=== PATIENT | female | born 1990 | race Caucasian/White ===

== ENCOUNTER 2022-01-31 07:12 | Outpatient (CLI) | payer OTHER, SELFPAY ==
--- NOTE | 2022-01-31 07:15 | CRLHL7_ITS ---
For Patients: As a result of the Century Cures Act, medical imaging exams and procedure reports are released immediately into your electronic medical record. You may view this report before your referring provider. If you have questions, please contact your health care provider. OB ULTRASOUND, 01/31/2022 JOMAR by IVF: 04/18/2022. GA: 29 w, 0 d. Single. INDICATION: Growth check ??? IVF. CERVIX: Not visualized. POSITIONING: Deacon breech. AMNIOTIC FLUID: 4.7 cm. PLACENTA: Technique: Transabdominal. PLACENTA POSITION: Fundal. DOPPLER: heart rate: 142 bpm. BIOMETRY: BPD: 6.7 cm. 27 w, 0 d, <3%. HC: 27.0 cm. 29 w, 3 d, 28%. AC: 25.6 cm. 29 w, 5 d, 68%. FL: 5.3 cm. 28 w, 0 d, 13%. FL/AC ratio: 21%. HC/AC ratio: 1.1. EFW: 1315 g. Weight: 2 lbs, 14 oz. age by this US: 28 w, 4 d. JOMAR by this US: 04/21/2022. Percentile by JOMAR: 36%. IMPRESSION: Single live intrauterine gestation with a composite gestational age of 28 weeks 4 days and JOMAR of 04/21/2022. Estimated weight 1315 grams, which lies at the 36th percentile. Xiomara Lewis M.D. Diagnostic/Breast Radiologist [email or web address] KANCHAN/melo alejo/Dictated by: Xiomara Lewis MD @ 01/31/2022 9:25:00 AM (Electronically Signed)
--- OUTSIDE RECORDS SUMMARY | 2022-01-31 07:16 | XMS_ITS | Encounter Summary ---
:1990 Author Organization [facility] Address [address] [place] [address] Care Team Providers Name Role Phone Found, No Pcp Primary Care Provider Unavailable Reason for Visit Reason Comments Forms outside records-[place], [place] Encounter Details Date Type Department Care Team Description 03/19/2019 [facility], [facility] (ou ide Documentation Services-GEOGRAPHIC INFORMATION SYSTEMS ANALYST Josephine Bingham MD records-[address], [address]) [place] [address] [phone] Social History Tobacco Use Types Packs/Day Years Used Date Smoking Tobacco: Never Smokeless Tobacco: Never Alcohol Use Standard Drinks/Week Comments Yes 2.8 (1 standard drink = 0.6 oz pure alco hol) Sex Assigned at Date Recorded Not on file documented as of this encounter Progress Notes Jessica Cano MA - 03/19/2019 9:29 AM CST Outside records requested by MD KATIE rc'd via fax, placed on provider desk for review. DING MAINTENANCE CUSTODIAN documented in this encounter Plan of Treatment Not on filedocumented as of this encounter Visit Diagnoses Not on filedocumented in this encounter Care Teams Key Worker Relationship Specialty Start Date End Date Found, No Pcp, PCP - General 05/02/15 [address] [place] [address] documented as of this encounter
--- OUTSIDE RECORDS SUMMARY | 2022-01-31 07:16 | XMS_ITS ---
:1990 Author Care Team Providers Name Role Phone Antonia Herbert Primary Care Provider Unavailable Allergies Code Code System Name Reaction Severity Status Onset Penicillins ? ? Active ? Sulfa (Sulfonamide Antibiotics) ? ? Active ? Medications Name Status Start Date Stop Date ? ? chlorhexidine gluconate 0.12 % mouthwash Completed ? 03/29/2021 chorionic gonadotropin, human 10,000 unit intramuscular solution Active ? Not available Inject 44157 units as needed by intramuscular route. clomiphene citrate 50 mg tablet Completed ? 03/29/2021 TAKE 2 TABLETS BY MOUTH EVERY DAY FOR 5 DAYS DIRECTED doxycycline hyclate 100 mg capsule Completed ? 03/29/2021 TAKE 1 CAPSULE BY MOUTH TWICE DAILY UNTIL ALL TAKEN. doxycycline hyclate 100 mg tablet Completed ? 03/29/2021 TAKE 1 TABLET BY MOUTH TWICE DAILY estradiol 2 mg tablet Completed ? 11/01/2020 etodolac 300 mg capsule Completed ? 03/29/20 21 methylprednisolone 4 mg tablets in a dose pack Completed ? 03/29/2021 ofloxacin 0.3 % eye drops Completed ? 2020 INT 1 GTT IN OD QID FOR 7 DAYS Ovidrel 250 mcg/0.5 mL subcutaneous syringe Completed ? 11/01/2020 Inject 0.5 mL every day by subcutaneous route for 1 day. Vitamin Active ? Not available progesterone micronized 200 mg capsule Active ? Not available Problems None recorded. Procedures Date Name Performed by ? 07/10/2020 Hysterosalpingography Information not av ailable Notes: Normal 04/28/2011 Extraction of [place] Tooth Information n ot available 04/28/1998 Tonsilectomy/adenoids Information not av ailable 08/01/2020 US, Transvaginal [id number] a [address] [place] [address] (Work [address]) 08/10/2020 US, Ovary, for Follicular Monitoring [facility]0 [facility] [address] [place] [address] (Work Place) 08/29/2020 US, Ovary, for Follicular Monitoring Cc0 [facility] [address] [place] [address] (Work Place) 09/07/2020 US, Ovary, for Follicular Monitoring Cc0 [facility] [address] [place] [address] (Work Place) 09/27/2020 US, Ovary, for Follicular Monitoring C[facility]0 [facility] [address] [place] [address] (Work Place) 10/04/2020 US, Ovary, for Follicular Monitoring [facility]0 [facility] [address] [place] [address] (Work Place) 10/11/2020 US, Ovary, for Follicular Monitoring [facility] [address] [place] [address] (Work Place) 11/01/2020 US, Ovary, for Follicular Monitoring [facility]0 [facility] [address] [place] [address] (Work Place) 12/29/2020 US, Ovary, for Follicular Monitoring [facility]0 [facility] [address] [place] [address] (Work Place) 01/08/2021 US, Ovary, for Follicular Monitoring [facility]0 [facility] [address] [place] [address] (Work Place) Results Lab Results Date Name Specimen Result Interpretation Description Value Range Status Address ? 03/29/2021 Cytology ? Interpretation nilm ? Fi nal [facility]: Report, [address] , Smear or [place] Scraping, Cervical or Vaginal ? ? ? Category: nil ? Final [facility]: [address] [facility] ? ? ? Adequacy: secni ? Final [facility]: [address] [facility] ? ? ? Clinician comment ? Final [facility]: Provided ICD10: 3 [address] [facility] ? ? ? Performed by: comment ? Final L [facility]: [address] [facility] ? ? ? Note: comment ? Final [facility]: [address] [facility] ? ? ? Test comment ? Final [facility]: Methodology: [address] [place] [address] ? ? ? HPV Aptima negative negative Final L [facility]: [address] [facility] 09/15/2020 Progesteron ? Progesterone, 10.6 ? Complete John e, Serum Serum NG/mL [facility] - Lab: [address], [place] 07/04/2020 Extra Tube ? Note ? ? Complete John [facility] (Lab [facility]) Health - Lab: [address], [place] 07/04/2020 Estradiol, ? Estradiol, 44.7 ? Comp lete [place] Serum Serum pg/mL [facility] - Lab: [address], [place] 07/04/2020 Prolactin, ? Prolactin, 8.7 NG/mL ? C omplete [place] Serum Serum [facility] - Lab: [address], [place] 07/04/2020 FSH ? FSH, Serum 6.9 ? Complete John (Follicle-s mIU/mL [facility] - Hormone), Lab: [address], [place] 07/04/2020 Lh ? Lutenizing 3.0 ? Complete John (Luteinizin Hormone (LH) mIU/mL [facility] Hormone), [facility] - Serum Lab: [address], [place] 07/04/2020 Thyroid ? Tsh 0.887 0.358-3.7 Complete John Elizabeth, uIU/mL 40 uIU/mL [facility] Health - Lab: [address], [place] 07/04/2020 Rubella ? Rubella Immune immune immune Com plete [place] Virus IgG Status Reported [facility] Ab, QL, Health - Serum Lab: [address], [place] 07/04/2020 Anti-cervantes ? Antimullerian 3.9 NG/mL 0.58 -8.1 Complete [facility] Hormone Hormone (Amh), S NG/mL [facility] (Amh), [facility] - Serum Lab: [address], [place] ? ? Result UPT negative ? ? [id number] Test, Urine ale_b urnsvil le: [address] [facility] [address] [facility] ? ? Result UPT negative ? ? [id number]_wcvqgi Test, Urine ale_b urnsvil le: [address] [facility] [address] [facility] ? ? Result UPT negative ? ? [id number]_fbjkzg Test, Urine ale_e maria alejandra: [address] , [place] Past Encounters 03/29/2021 Gynecologic Examination EZEKIEL Conner: [address] [facility] Ze al, [address] [address], Ph. 01/10/2021 Female Infertility; Artificial Inseminat joshua García MD: [address] [facility] You, [address] [address], Ph. 01/09/2021 Laura Sky MD: [address], [address] [address], Ph. 01/08/2021 Female Infertility Laura Sky MD: [address], [address] [address], Ph. 01/08/2021 Fertility Problem Laura Sky MD: [address], [address] [address], Ph. 12/29/2020 Primary Infertility Laura Sky MD: [address], [address], [place] [address], Ph. 12/29/2020 Female Infertility Laura Sky MD: [address], [address], [place] [address], Ph. 11/01/2020 Fertility Problem EZEKIEL Conner: [address] [place] [address], [facility], [place] [address], Ph. 11/01/2020 Fertility Problem Yamilex Juarez MD: [address] [place] [address] , [place] [address], [place] [address], Ph. 10/12/2020 Artificial Insemination Kirti Lang DANIEL: [address], [address], [place] [address], Ph. 10/11/2020 Female Infertility Kirti Lang DANIEL: [address], [address], [place] [address], Ph. 10/11/2020 Fertility Problem Yamliex Juarez MD: [address], [address], [place] [address], Ph. 10/04/2020 Female Infertility Kirti Lang DANIEL: [address], [address], [place] [address], Ph. 10/04/2020 Fertility Problem Yamilex Juarez MD: [address], [address] [place] [address], Ph. 09/27/2020 Female Infertility Kirti Lang DANIEL: [address], [address], [place] [address], Ph. 09/27/2020 Fertility Problem Azul Holt MD: [address], [address], [place] [address], Ph. 09/08/2020 Female Infertility Breanne Gutierrez [facility]: [address], [address], [place] [address], Ph. 09/07/2020 [facility]: [address], [address], [place] [address], Ph. 09/07/2020 Fertility Problem Yamilex Juarez MD: [address], [address], [place] [address], Ph. 08/29/2020 Female Infertility Breanne Matt [facility]: [address], [address], [place] [address], Ph. 08/29/2020 Fertility Problem Yamilex Juarez MD: [address], [address], [place] [address], Ph. 08/10/2020 [facility]: [address], [address], [place] [address], Ph. 08/10/2020 Fertility Problem Azul Holt MD: [address], [address], [place] [address], Ph. 08/01/2020 Unexplained Infertility Breanne Matt [facility]: [address], [address], [place] [address], Ph. 08/01/2020 Fertility Problem Azul Holt MD: [address], [address], [place] [address], Ph. Social History Tobacco Smoking Status Never Smoker Vaccine List None recorded. Plan of Care Patient Instructions - estradiol dosing x3 more doses - start prometrium 200mg tomorrow evenin g - Instructed to take UPT in 2 weeks, if positive continue progesterone and call clinic, if negative stop progesterone and call clinic with first day of menses - Trigger shot today - IUI scheduled for tomorrow - 2mg BID estradiol supplement per vagin a x3 days - 200mg once daily progesterone starting 24 hours after IUI - negative UPT today - Clomid restart discussed, take 50mg cl matt for next 5 days - repeat u/s in 1 week, depending on res ults, plan for trigger shot and IUI to follow - call back with pharmacy information f or trigger shot - call to schedule follow up u/s on CD 1 2 or CD 13 - Ovidrel in clinic today, IUI as sched uled tomorrow - start vaginal estrogen 2mg BID - plan mid-luteal progesterone a week fr om tomorrow Reminders Provider Appointments None recorded. ? ? Lab None recorded. ? ? Referral None recorded. ? ? Procedures None recorded. ? ? Surgeries None recorded. ? ? Imaging None recorded. ? ? Vitals 03/29/2021 08:00AM G_ANNUAL EXAM Height Weight BMI Blood Pressure 5 ft 8 in 168 lbs 25.5 kg/m2 118/70 mm[Hg] 11/01/2020 01:45PM G_FOLLICLE STUDY Height Weight BMI Blood Pressure 5 ft 8 in 164.2 lbs 25 kg/m2 112/64 mm[Hg] 09/08/2020 10:45AM G_ARTIFICIAL INSEMINATION Height Weight BMI Blood Pressure 5 ft 8 in 161.8 lbs 24.6 kg/m2 112/68 mm[Hg] 08/29/2020 08:00AM G_FOLLICLE STUDY Height Weight BMI Blood Pressure 5 ft 8 in 159.8 lbs 24.3 kg/m2 110/76 mm[Hg] 07/04/2020 01:00PM G_NEW PT INFERTILITY CONSULT Height Weight BMI Blood Pressure 5 ft 8 in 159 lbs 24.2 kg/m2 112/80 mm[Hg]
--- OUTSIDE RECORDS SUMMARY | 2022-01-31 07:16 | XMS_ITS | Encounter Summary ---
:1990 Author Organization [facility] Address [address] [place] [address] Care Team Providers Name Role Phone Found, No Pcp MD Primary Care Provider Unavailable Reason for Visit Reason Comments IUD Removal Encounter Details Date Type Department Care Team Description 05/20/2019 Office Visit [facility], Encounter for removal Services-FISH PEDDLER Josephine Bingham MD of intrauterine [address] [place] [address] [address] (Primary Dx) [place] [address] [phone] Social History Tobacco Use Types Packs/Day Years Used Date Smoking Tobacco: Never Smokeless Tobacco: Never Alcohol Use Standard Drinks/Week Comments Yes 2.8 (1 standard drink = 0.6 oz pure alco hol) Sex Assigned at Date Recorded Not on file documented as of this encounter Last Filed Vital Signs Vital Sign Reading Time Taken Comments Blood Pressure 126/63 05/20/2019 4:12 PM CARDIAC NURSE Pulse 62 05/20/2019 4:12 PM CARDIAC NURSE Temperature - - Respiratory Rate - - Oxygen Saturation - - Inhaled Oxygen Concentration - - Weight 72.1 kg (159 lb) 05/20/2019 4:12 PM CARDIAC NURSE Height - - Body Mass Index 24.18 03/18/2019 3:47 PM CARDIAC NURSE documented in this encounter Progress Notes Josephine Prtaer MD - 05/20/2019 4:00 PM CST Subjective: Hellen Sigala 28 y.o. is here for removal of existing IUD. Her plan for contraception is nothing - attempting . Procedure: BP 126/63 (BP Location: Right Arm, BP Cuff Size: Regular) Pulse 62 Wt 159 lb (72.1 kg) LMP 04/28/2019 BMI 24.18 kg/m?? A speculum was placed in the vagina. The IUD strings were visible at the external os. The IUD was removed without difficulty. The patient tolerated the procedure well. Assessment: Encounter Diagnosis Name Primary? Encounter for removal of intrauterine contraceptive device Yes Plan: Hellen was given post-removal instructions and pre-conceptual counseling . Patient aware can occur right away after removal. Patient is taking a vitamin. Patient will notify clinic with positive UPT. Josephine Prater MD IAC NURSE documented in this encounter Plan of Treatment Not on filedocumented as of this encounter Visit Diagnoses Diagnosis Encounter for removal of intrauterine co ntraceptive device - Primary documented in this encounter Care Teams Personal Property Assessor Relationship Specialty Start Date End Date Found, No PcpMD PCP - General 05/02/15 [address] [place] [address] documented as of this encounter
--- OUTSIDE RECORDS SUMMARY | 2022-01-31 07:16 | XMS_ITS | Encounter Summary ---
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 Josephine Bingham MD Screening for cervical cancer; [address] [place] [address] for influenza vaccination; [address] Vaginal itching; [facility] [place] Encounter for preconception consultation [id number] [phone] Social History Tobacco Use Types Packs/Day Years Used Date Smoking Tobacco: Never Smokeless Tobacco: Never Alcohol Use Standard Drinks/Week Comments Yes 2.8 (1 standard drink = 0.6 oz pure alco hol) Sex Assigned at Date Recorded Not on file documented as of this encounter Last Filed Vital Signs Vital Sign Reading Time Taken Comments Blood Pressure 117/62 03/18/2019 3:47 PM OFFICE ASSISTANT Pulse 74 03/18/2019 3:47 PM OFFICE ASSISTANT Temperature - - Respiratory Rate - - Oxygen Saturation - - Inhaled Oxygen Concentration - - Weight 71.5 kg (157 lb 9.6 oz) 03/18/2019 3:47 PM OFFICE ASSISTANT Height 172.7 cm (5' 8) 03/18/2019 3:47 PM OFFICE ASSISTANT Body Mass Index 23.96 03/18/2019 3:47 PM OFFICE ASSISTANT documented in this encounter Patient Instructions Patient InstructionsJosephine Prater MD - 03/18/2019 4:00 PM CST Ethnicity-Based Genetic Screening: Care Instructions Overview All of our genes come in pairs. We get a copy from each parent. Genes help control everything from our eye color to whether we get certain conditions. Genes that don't work right or that are missing can cause genetic conditions. These include cystic fibrosis, sickle cell anemia, and Alexey-Sachs disease. Some genetic conditions are more common in certain ethnic groups. A screening blood test can find out if you are a carrier of one of these conditions. You can be a carrier and not have symptoms. Instead, you carry one copy of a gene that is not working well. If someone in your family has one of these conditions, you may be a carrier. But many people who are carriers have no family history. If both members of a couple are carriers, they have a 1-in-4 chance of having a child born with the condition. So that means that there is a 3-in-4 chance that their child won't have the condition. To have certain genetic conditions, a baby must get a copy of the changed gene from each parent. Theresults of genetic screening can help you make choices about having children. If you test positive, your partner should be tested too. Follow-up care is a palomares part of your treatment and safety. Be sure to make and go to all appointments, and call your doctor if you are having problems. It's also a good idea to know your test results and keep a list of the medicines you take. Which conditions can this test find? You can be tested to see if you or your partner might pass down gene changes to your child. You may be tested for: ?? Inherited anemias. This group of conditions affects red blood cells. It includes sickle cell anemia and thalassemia. They can lead to lifelong medical problems, such as infections. In some cases, they can cause in childhood or the early adult years. Sickle cell disease occurs most often in people of background. Thalassemia occurs most often in those of , , or Mediterranean background. ?? Cystic fibrosis. This causes the lungs and digestion to not work right. Problems caused by this disease can be treated. But there is no known cure. On average, people who have it live into their mid-to-late 30s. The disease is much more common in non- white people than in people of other races and ethnic backgrounds. ?? Alexey-Sachs disease. Babies with this disease have problems such as losing their sight or not beingable to eat or crawl. Children who have it do not live very long. It is more common in people of Ashkenazi Muslim, [place], or Cajun backgrounds. ?? Diseases that occur more often in people of Ashkenazi Muslim background. These include: ? Alexey-Sachs disease. ? Manpreet disease. ? Familial dysautonomia. ? Cystic fibrosis. ? Fanconi anemia group C. ? Geoffrey-Pick disease type A. ? Mucolipidosis IV. ? Deutsch syndrome. ? Gaucher's disease. Should you be tested? Certain genetic conditions are more common in certain ethnic groups. People who are or of , Ashkenazi Muslim, Southeast , [place], or Mediterranean background may want to think about genetic testing to find out if they have or are a carrier of a genetic condition that they could pass on to their child. Certain genetic conditions are more common in these ethnic groups. Some close-knit hindu communities also have higher rates of certain genetic conditions. This includes the Arturo and the Mennonites. People with a family history of one of these conditions also may want to think about testing. What should you think about when deciding about this test? ?? Your doctor may advise you to talk to a genetic counselor. He or she can help you understand the test and what the results could mean. ?? Testing is not 100% accurate. But if you are in one of the higher-risk ethnic groups, testing is more accurate for certain diseases. ?? You may choose to have testing if you are and the test results will affect whether you continue your or will help you make choices about the care of your child. ?? You may choose not to have testing if you are and the test results will not affect whether you will continue your . Where can you learn more? 1. Go to https://Stellarray.Patreon/Medaforrary or [employer]/Norwood SystemsraAppLearn. 2. Enter Q084 in the search box. Current as of: July 27, 2018 Content Version: 12.2 ?? 2722-1703 [employer]. Care instructions adapted under license by your healthcare professional. If you have questions about a medical condition or this instruction, always ask your healthcare professional. [employer] disclaims any warranty or liability for your use of this information. Learning About Planning for Future How can you plan for ? Even before you get , you can help make your as healthy as possible. Take these steps: ?? See a doctor or certified nurse-clinic cma for an exam. Talk about the medicines, vitamins, and herbs you take. Discuss any health problems or concerns you have. ?? Don't take nonsteroidal anti-inflammatory drugs (NSAIDs). Examples of these are ibuprofen and aspirin. They can raise your risk of miscarriage. This risk is higher around the time you conceive or ifyou use them for more than a week. ?? Take a daily multivitamin or vitamin. Make sure it has folic acid. This will lower the chance of having a baby with a defect. ?? Keep track of your menstrual cycle. This is a good idea for a few reasons. It helps you know the best time to try to get . And it can help your doctor or clinic cma figure out when your baby isdue and how it is growing. ?? Make healthy choices. Eat well. Avoid caffeine. Or cut back and only have 1 cup of coffee or tea a day. Avoid alcohol, cigarettes, and illegal drugs. Take only the medicines your doctor or clinic cma says are okay. ?? Get plenty of exercise. A strong body will make and easier. It will also help yourecover after the . And exercise can help improve your mood. What other exams or tests should you have? Before trying to get , take care of any other health concerns you might have. ?? If you have diabetes or high blood pressure or you are obese, talk to your doctor before you get . Together, you can make a plan about how to control these health problems. ?? Talk with your doctor about any medicines you take. Find out if it is safe to keep taking them while you are . ?? Get any vaccines you might need. They can help prevent defects, miscarriage, or stillbirth that can be caused by infections such as rubella or measles. Ask your doctor how long you should waitafter you get a vaccine before you try to get . ?? Talk with your doctor about whether to have screening tests for diseases that are passed down through families (genetic conditions). These diseases include: ? Cystic fibrosis. ? Sickle cell disease. ? Alexey-Sachs disease. If you think you might be ?? You can use a home test as soon as the first day of your first missed menstrual period. ?? As soon as you know you're , make an appointment with your doctor or certified nurse-clinic cma. Your first visit will provide information that can be used to check for any problems asyour progresses. Where can you learn more? 1. Go to https://[employer] (now [employer])/Medaforrary or [employer] SystemsraAppLearn. 2. Enter R938 in the search box. Current as of: September 23, 2018 Content Version: 12.2 ?? 0038-1179 [employer]. Care instructions adapted under license by your healthcare professional. If you have questions about a medical condition or this instruction, always ask your healthcare professional. [employer] disclaims any warranty or liability for your use of this information. CE ASSISTANT documented in this encounter Progress Notes Josephine Prater MD - 03/18/2019 4:00 PM CST Annual Exam Note S: Hellen Sigala is a 28 y.o. P0 female who presents for an annual exam. The patient does not have any concerns but does want to discuss removal of her IUD in the next few months as her and her husbandare planning to start trying to conceive. She reports that they are planning a trip to [place] in May and would like to potentially conceive during the trip. She is wondering about the timing of when she should take it out given this. 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 Prior to IUD they were heavy. Contraception: Mirena IUD Pap: Last Pap NIL in 08/2017 in [place]. Records not available Sexual activity: Active with one male partner, no concerns OBHx: Nulliparous Preventative Care: Diet/Exercise: No dietary concerns, exercise regularly Vitamin D/Calcium: No supplements Lipids: Uncertain if screened before Glucose: Uncertain if screened before Safety: No concerns Patient's medications, allergies, past medical, surgical, social and family histories were reviewed and updated as appropriate. ROS: Pertinent items are noted in HPI. O: BP 117/62 (BP Location: Right Arm, BP Cuff Size: Regular) Pulse 74 Ht 5' 8 (1.727 m) Wt 157 lb 9.6 oz (71.5 kg) LMP 02/28/2019 BMI 23.96 kg/m?? General appearance: alert, cooperative, no distress, appears stated age Neck: supple, symmetrical, trachea midline, no adenopathy, thyroid: not enlarged, symmetric, no tenderness/mass/nodules and no JVD Back: symmetric, no curvature. ROM normal. No CVA tenderness. Breasts: normal appearance, no masses or tenderness Abdomen: soft, non-tender; bowel sounds normal; no masses, no organomegaly Pelvic: cervix normal in appearance, external genitalia normal, no adnexal masses or tenderness, no cervical motion tenderness, uterus normal size, shape, and consistency, vagina normal without discharge Extremities: extremities normal, atraumatic, no cyanosis or edema Skin: Skin color, texture, turgor normal. No rashes or lesions. A: 28 y.o. P0 here for annual exam. Patient also has questions of removal of IUD in the near future with the intent to attempt conception. P: Preventative Care: -Breast/pelvic completed -Pap is not due at this time -Patient is accepting of flu shot today -Due for Tdap but patient declines as she dislikes needles and already agreed to flu shot. Reviewed that the Tdap is recommended in every and she may chose to defer this until then since she is planning in the near future -Healthy lifestyle reviewed Pre-conception counseling -Reviewed that is possible immediately after removal of Mirena IUD so would not remove until she is certain she would be ok with -Reviewed plans for travel to [place] and discuss this in the context of the Zika virus. Patient reports having been aware of this. Discussed that I would advise reviewing the CDC travel advisories prior to the trip as they often change. Current advisory is to avoid for two months following travel in women and for three months prior to attempting conception for men. Patient will consider. -Recommend starting a vitamin 1-2 months prior to starting attempts at conception -Reviewed options for carrier screening should patient be interested in this. Discussed these are optional tests. Information given for patient to review. She will let me know if she is interested in this testing. Josephine Prater MD 2:29 PM 03/19/2019 10 minutes of this 25 minute physical were spent in discussion of preconception counseling CE ASSISTANT documented in this encounter Plan of Treatment Not on filedocumented as of this encounter Procedures Procedure Name Priority Date/Time Associated Diagnosis Comme nts VAGINITIS PANEL Routine 03/18/2019 4:45 PM Vaginal itching Res ults for this OFFICE ASSISTANT procedure are i n the results section. documented in this encounter Results Vaginitis Panel, DNA Probe (03/18/2019 4:45 PM OFFICE ASSISTANT) [facility] gist Method Time Signature Gardnerella Negative Negative 03/19/2019 [facility] vaginalis 4:43 PM OFFICE ASSISTANT LABORATORY [place] species Negative Negative 03/19/2019 [facility] 4:43 PM OFFICE ASSISTANT [facility]ATORY Trichomonas Negative Negative 03/19/2019 [facility] vaginalis 4:43 PM OFFICE ASSISTANT LABORATORY Specimen Anatomical Collection Method Collection Time Receive d Time (Source) Location / / Volume Laterality Swab (Source SPECIMEN FROM Non-blood 03/18/2019 4:45 PM 03/18/20 19 4:46 Required) VAGINA / Unknown Collection / OFFICE ASSISTANT PM OFFICE ASSISTANT Unknown Josephine Prater MD LAB_1 Performing Organization Address City/State/ZIP Code Phon e Number [facility] [address] [place] [id number] documented in this encounter Visit Diagnoses Diagnosis Preventative health care - Primary Routine general medical examination at a health care facility Screening for cervical cancer Screening for malignant neoplasm of the cervix Need for influenza vaccination Need for prophylactic vaccination and in oculation against influenza Vaginal itching Pruritus of genital organs Encounter for preconception consultation documented in this encounter Care Teams Seed Cone Picker Relationship Specialty Start Date End Date Found, No PcpMD PCP - General 05/02/15 [address] [place] [address] documented as of this encounter
--- OUTSIDE RECORDS SUMMARY | 2022-01-31 07:16 | XMS_ITS | Encounter Summary ---
:1990 Author Organization [facility] Address [address] [place] [address] Care Team Providers Name Role Phone Found, No Pcp MD Primary Care Provider Unavailable Reason for Visit Reason Comments FOREIGN BODY, EYE Encounter Details Date Type Department Care Team Description 01/20/2020 Hospital Encounter [facility] Esquivel Abrasi on of right [facility] cornea, initial Care [address] [address] [place] [id number] Social History Tobacco Use Types Packs/Day Years Used Date Smoking Tobacco: Never Smokeless Tobacco: Never Alcohol Use Standard Drinks/Week Comments Yes 2.8 (1 standard drink = 0.6 oz pure alco hol) Sex Assigned at Date Recorded Not on file documented as of this encounter Last Filed Vital Signs Vital Sign Reading Time Taken Comments Blood Pressure 119/74 01/20/2020 12:48 PM CDT Pulse 74 01/20/2020 12:48 PM CDT Temperature 36.6 ??C (97.8 ??F) 01/20/2020 12:48 PM CDT Respiratory Rate 14 01/20/2020 12:48 PM CDT Oxygen Saturation 100% 01/20/2020 12:48 PM CDT Inhaled Oxygen Concentration - - Weight - - Height - - Body Mass Index - - documented in this encounter Discharge Instructions Discharge InstructionsSully Machado PA-C - 01/20/2020 1:10 PM CDT Images from the original note were not included. Corneal Scratches: Care Instructions Your Care Instructions The cornea is the clear surface that covers the front of the eye. When a speck of dirt, a wood chip,an insect, or another object flies into your eye, it can cause a painful scratch on the cornea. Wearing contact lenses too long or rubbing your eyes can also scratch the cornea. Small scratches usuallyheal in a day or two. Deeper scratches may take longer. If you have had a foreign object removed from your eye or you have a corneal scratch, you will need to watch for infection and vision problems while your eye heals. Follow-up care is a palomares part of your treatment and safety. Be sure to make and go to all appointments, and call your doctor if you are having problems. It's also a good idea to know your test results and keep a list of the medicines you take. How can you care for yourself at home? ?? The doctor probably used a medicine during your exam to numb your eye. When it wears off in 30 to60 minutes, your eye pain may come back. Take pain medicines exactly as directed. ? If the doctor gave you a prescription medicine for pain, take it as prescribed. ? If you are not taking a prescription pain medicine, ask your doctor if you can take an efjv-cny-cotwekg medicine. ? Do not take two or more pain medicines at the same time unless the doctor told you to. Many pain medicines have acetaminophen, which is Tylenol. Too much acetaminophen (Tylenol) can be harmful. ?? Do not rub your injured eye. Rubbing can make it worse. ?? Use the prescribed eyedrops or ointment as directed. Be sure the dropper or bottle tip is clean. To put in eyedrops or ointment: ? Tilt your head back, and pull your lower eyelid down with one finger. ? Drop or squirt the medicine inside the lower lid. ? Close your eye for 30 to 60 seconds to let the drops or ointment move around. ? Do not touch the ointment or dropper tip to your eyelashes or any other surface. ?? Do not use your contact lens in your hurt eye until your doctor says you can. Also, do not wear eye makeup until your eye has healed. ?? Do not drive if you have blurred vision. ?? Bright light may hurt. Sunglasses can help. ?? To prevent eye injuries in the future, wear safety glasses or goggles when you work with machinesor tools, mow the lawn, or ride a bike or motorcycle. When should you call for help? Call your doctor now or seek immediate medical care if: ? You have signs of an eye infection, such as: ? Pus or thick discharge coming from the eye. ? Redness or swelling around the eye. ? A fever. ? You have new or worse eye pain. ? You have vision changes. ? It feels like there is something in your eye. ? Light hurts your eye. ??Watch closely for changes in your health, and be sure to contact your doctor if: ? You do not get better as expected. Where can you learn more? 1. Go to https://PxRadia/[employer] or YouFastUnlock/[employer]. 2. Enter G403 in the search box. Current as of: April 13, 2019?Content Version: 12.4 ?? [employer]. Care instructions adapted under license by your healthcare professional. If you have questions abouta medical condition or this instruction, always ask your healthcare professional. [employer] disclaims any warranty or liability for your use of this information. documented in this encounter Medications at Time of Discharge Medication Sig Dispensed Refills Start Date End Date ofloxacin (OCUFLOX) 0.3 % Place 1 Drop into 10 mL 0 01/27/2020 eye drop solution right eye 4 times a day for 7 days. documented as of this encounter ED Notes Sully Machado PA-C - 01/20/2020 12:52 PM CDT Nurse Triage Note e Was standing outside while at work and felt something blow into right eye about 1-1.5 hours ago, waswearing glasses when incident occurred, flushed right eye Provider Note SUBJECTIVE: Hellen Sigala is a 29 y.o.female who comes in with foreign body sensation. She was standing outside at work and felt something low and her right eye. She was wearing her glasses. She does not wear contacts. She copiously irrigated her right eye with eye wash at work. She still is experiencing right eye pain. No vision changes. Past Medical history: Patient Active Problem List Diagnosis ??? Excessive or frequent menstruation ??? Viral infection ??? Dyspepsia and disorder of function of stomach ??? Pap smear abnormality of cervix Social History: Social History Socioeconomic History ??? Marital status: Spouse name: Not on file ??? Number of children: 0 ??? Years of education: Not on file ??? Highest education level: Not on file Occupational History ??? 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 Financial resource strain: Not on file ??? Food insecurity Worry: Not on file Inability: Not on file ??? Transportation needs Medical: Not on file Non-medical: Not on file Tobacco Use ??? Smoking status: Never Smoker ??? Smokeless tobacco: Never Used Substance and Sexual Activity ??? Alcohol use: Yes Alcohol/week: 2.8 standard drinks Types: 2 Cans of beer, 1 Standard drinks or equivalent per week ??? Drug use: No ??? Sexual activity: Yes Partners: Male control/protection: I.U.D. Comment: Seasonale, generic Lifestyle ??? Physical activity Days per week: Not on file Minutes per session: Not on file ??? Stress: Not on file Relationships ??? Social connections Talks on phone: Not on file Gets together: Not on file Attends yarsani service: Not on file Active member of club or organization: Not on file Attends meetings of clubs or organizations: Not on file Relationship status: Not on file ??? Intimate partner violence Fear of current or ex partner: Not on file Emotionally abused: Not on file Physically abused: Not on file Forced sexual activity: Not on file Other Topics Concern ??? Bike Helmet No ??? City Water Yes ??? Exercise Yes ??? Guns in home No ??? Seat Belt Yes ??? Special Diet No ??? Weight Concern No Social History Narrative Recently graduated from [employer] in civil engineering. 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 She is currently dating. Adverse Drug Reactions: Clindamycin; Penicillins; and Sulfa antibiotics Medications: ofloxacin OBJECTIVE: Vital Signs: BP 119/74 (BP Location: Left Arm, BP Cuff Size: Regular) Pulse 74 Temp 36.6 ??C (97.8 ??F) (Oral) Resp 14 LMP 12/28/2019 SpO2 100% General: Well-appearing. Eyes: Right eye is slightly injected. Fluorescein stain reveals small amount of uptake in inferior portion of cornea. Eyelid flipped with no evidence of foreign body. PERRLA EOMI bilaterally red reflexpresent bilaterally. Neck: Supple, without masses, lymphadenopathy or tenderness. Respiratory: Normal respiratory effort. Lungs are clear with good breath sounds. CV: Regular rate and rhythm, no clicks rubs gallops or murmurs ASSESSMENT: 1. Abrasion of right cornea, initial encounter . PLAN: Corneal abrasion. No evidence of foreign bodies in eye. No metal/rust ring. Ocuflox prescribed to prevent infection. Discussed signs/symptoms that would warrant emergent follow-up with the eye doctor. Patient understands and agrees the plan. Patient discharged in stable condition. Patient may return to work without restrictions. Medications - No data to display Medications Prescribed this Visit Disp Refills Start End ofloxacin (OCUFLOX) 0.3 % eye drop solution 10 mL 0 01/20/2020 01/27/2020 Place 1 Drop into right eye 4 times a day for 7 days. Right Eye Discharge Instructions Corneal Scratches: Care Instructions Your Care Instructions The cornea is the clear surface that covers the front of the eye. When a speck of dirt, a wood chip, an insect, or another object flies into your eye, it can cause a painful scratch on the cornea. Wearing contact lenses too long or rubbing your eyes can also scratch the cornea. Small scratches usually heal in a day or two. Deeper scratches may take longer. If you have had a foreign object removed from your eye or you have a corneal scratch, you will need to watch for infection and vision problems while your eye heals. Follow-up care is a palomares part of your treatment and safety. Be sure to make and go to all appointments, and call your doctor if you are having problems. It's also a good idea to know your test results and keep a list of the medicines you take. How can you care for yourself at home? ?? The doctor probably used a medicine during your exam to numb your eye. When it wears off in 30 to 60 minutes, your eye pain may come back. Take pain medicines exactly as directed. ? If the doctor gave you a prescription medicine for pain, take it as prescribed. ? If you are not taking a prescription pain medicine, ask your doctor if you can take an ekrj-tww-wyztgdl medicine. ? Do not take two or more pain medicines at the same time unless the doctor told you to. Many pain medicines have acetaminophen, which is Tylenol. Too much acetaminophen (Tylenol) can be harmful. ?? Do not rub your injured eye. Rubbing can make it worse. ?? Use the prescribed eyedrops or ointment as directed. Be sure the dropper or bottle tip is clean. To put in eyedrops or ointment: ? Tilt your head back, and pull your lower eyelid down with one finger. ? Drop or squirt the medicine inside the lower lid. ? Close your eye for 30 to 60 seconds to let the drops or ointment move around. ? Do not touch the ointment or dropper tip to your eyelashes or any other surface. ?? Do not use your contact lens in your hurt eye until your doctor says you can. Also, do not wear eye makeup until your eye has healed. ?? Do not drive if you have blurred vision. ?? Bright light may hurt. Sunglasses can help. ?? To prevent eye injuries in the future, wear safety glasses or goggles when you work with machines or tools, mow the lawn, or ride a bike or motorcycle. When should you call for help? Call your doctor now or seek immediate medical care if: ? You have signs of an eye infection, such as: ? Pus or thick discharge coming from the eye. ? Redness or swelling around the eye. ? A fever. ? You have new or worse eye pain. ? You have vision changes. ? It feels like there is something in your eye. ? Light hurts your eye. ??Watch closely for changes in your health, and be sure to contact your doctor if: ? You do not get better as expected. Where can you learn more? 1. Go to https://Pearl's Premium.Dipity/healthlibrary or YouFastUnlock/Vastarilibrary. 2. Enter G403 in the search box. Current as of: April 13, 2019?Content Version: 12.4 ?? [id number] [employer]. Care instructions adapted under license by your healthcare professional. If you have questions about a medical condition or this instruction, always ask your healthcare professional. [employer] disclaims any warranty or liability for your use of this information. documented in this encounter Plan of Treatment Not on filedocumented as of this encounter Visit Diagnoses Diagnosis Abrasion of right cornea, initial encoun ter Triage Assessment Note - Chanelle Sawyer, RN - 01/20/2020 12:45 PM CDT Was standing outside while at work and felt something blow into right eye about 1-1.5 hours ago, waswearing glasses when incident occurred, flushed right eye documented in this encounter Care Teams Paper Cutting Machine Operator Relationship Specialty Start Date End Date Found, No Pcp, PCP - General 05/02/15 [address] [place] [address] documented as of this encounter
--- OUTSIDE RECORDS SUMMARY | 2022-01-31 07:16 | XMS_ITS | Encounter Summary ---
:1990 Author Organization [email or web address] Address [address], [place] [address] Care Team Providers Name Role Phone Found, No Pcp MD Primary Care Provider Unavailable Reason for Visit Reason Comments Post Visit Follow Up Encounter Details Date Type Department Care Team Description 11/14/2018 Nurse Triage Lew Nurse E[place] Ortiz, [place] [address] [place] [address] [facility] [phone] [place] [address] (Wo rk) Social History Tobacco Use Types Packs/Day Years Used Date Smoking Tobacco: Never Alcohol Use Standard Drinks/Week Comments Yes 2.8 (1 standard drink = 0.6 oz pure alco hol) Sex Assigned at Date Recorded Not on file documented as of this encounter Nursing Notes Sheeba Hutton RN - 11/14/2018 6:24 PM CDT Reason for Disposition ??? [1] Recent medical visit within 24 hours AND [2] condition/symptoms SAME (unchanged) AND [3] caller has additional questions triager can answer Pt calling, states Percocet did not help dental pain sx. Pt was seen in 11/13/18, diagnosed with dental abscess, prescribed Clindamycin and Percocet. Pt is taking Ibuprofen for pain relief today, pain rated 6/10 when taking Ibuprofen and 8/10 when not taking Ibuprofen. Pt took 2 Percocet yesterday without relief of pain. Advised pt that pain medication will not completely resolve pain but will reduce pain. Pt was started on antibiotic yesterday and should see improvement in sx in 48-72 hours. Pt denies new sx. Protocols used: RECENT MEDICAL VISIT FOR ILLNESS FOLLOW-UP [id number] Problem list reviewed as related to this call. documented in this encounter Plan of Treatment Not on filedocumented as of this encounter Visit Diagnoses Not on filedocumented in this encounter Care Teams Smt Machine Operator Relationship Specialty Start Date End Date Found, No Pcp, PCP - General 05/02/15 [address] [place] [address] documented as of this encounter
--- OUTSIDE RECORDS SUMMARY | 2022-01-31 07:16 | XMS_ITS | Clinical Summary ---
:1990 Author Organization [facility] Address [address] [place] [address] Care Team Providers Name Role Phone Found, No Pcp MD Primary Care Provider Unavailable Source Comments You are receiving this document as you are listed as the primary care provider,follow-up provider, or the patient has been referred to you for consultation.This is in compliance with the Medicare and Medicaid EHR Incentive Program,which states Providers who transition their patient to another setting of careor provider of care or refers their patient to another provider of care shouldprovide summarycare record for each transition of care or referral. Tysdo Allergies Active Allergy Reactions Severity Noted Date Comments Clindamycin Gastrointestinal 11/16/2018 See ED note s Penicillins 06/30/2002 Rash, Generaliz ed Sulfa Antibiotics 06/30/2002 Rash, Gene ralized Medications No known medications Active Problems Problem Noted Date Pap smear abnormality of cervix 04/08/2019 Overview: 01/2017: ASCUS, Neg HPV (at outside hosp ital, records reviewed) 01/2018: NIL (at outside hospital, recor ds reviewed) Dyspepsia and disorder of function of stomach 11/03/19 09 Overview: Dyspepsia Viral infection 07/16/2006 Overview: Viral Syndrome Excessive or frequent menstruation 07/02/2005 Overview: LW Onset: 2004 ; Menorrhagia Resolved Problems Problem Noted Date Resolved Date Contraceptive management 09/08/2012 05/20/2019 Last Assessment & Plan: Formatting of th is note might be different from the original. Taking OCP for menorrhagia and recently for contraceptive management, she denies side effects, reports working well. Immunizations Name Administration Dates Next Due 4vHPV (Gardasil) 09/02/2011, 07/12/2008, 09/07/2007 HepA Adult (19+ yrs) 09/02/2011 HepA Ped/Adol (1-18 yrs) 09/07/2007 HepB Ped/Adol (0-18 yrs) 06/23/2002 HepB, Unspecified Formulation 11/23/2001, 10/15/2001 Influenza IIV4 (Quadrivalent) 0.5mL 03/18/2019 (72383) MCV4 (Menactra) 09/07/2007 MMR 11/23/2001 TDAP (ADACEL) 09/07/2007 Td 10/15/2001 Family History Medical History Relation Name Comments Adopted Father Depression Father Cancer Mother Depression Mother Depression Brother Heart Disease Maternal Grandfather High Cholesterol Maternal Grandfather Stroke Maternal Grandfather Alzheimer's Maternal Grandmother Stroke Maternal Grandmother Cancer Paternal Grandfather Alzheimer's Paternal Grandmother Relation Name Status Comments Father Alive Mother Alive Brother Alive Maternal Grandfather Maternal Grandmother Paternal Grandfather Paternal Grandmother Sister Alive Social History Tobacco Use Types Packs/Day Years Used Date Smoking Tobacco: Never Smokeless Tobacco: Never Alcohol Use Standard Drinks/Week Comments Yes 2.8 (1 standard drink = 0.6 oz pure alco hol) Sex Assigned at Date Recorded Not on file Last Filed Vital Signs Vital Sign Reading Time Taken Comments Blood Pressure 119/74 01/20/2020 12:48 PM CDT Pulse 74 01/20/2020 12:48 PM CDT Temperature 36.6 ??C (97.8 ??F) 01/20/2020 12:48 PM CDT Respiratory Rate 14 01/20/2020 12:48 PM CDT Oxygen Saturation 100% 01/20/2020 12:48 PM CDT Inhaled Oxygen Concentration - - Weight 72.1 kg (159 lb) 05/20/2019 4:12 PM DIGITAL SALES MANAGER Height 172.7 cm (5' 8) 03/18/2019 3:47 PM DIGITAL SALES MANAGER Body Mass Index 24.18 03/18/2019 3:47 PM DIGITAL SALES MANAGER Plan of Treatment Health Maintenance Due Date Last Done Comments Hep C Screening (Preventive 1990 Services) COVID-19 Vaccine (#1) 03/09/1990 HIV Screening (Preventive 2005 Services) DTaP/Tdap/Td (3 - Tdap) 2017 09/07/2007, 10/15/2001 Pap 01/29/2021 01/29/2018 (Completed), 09/08/2012, 09/02/2011, Additional history exists Adult Preventive Visit 03/18/2021 03/18/2019 Influenza (#1) 2021 03/18/2019 Zoster/Shingles (1 of 2) 09/07/2039 HepB Completed 06/23/2002, 11/23/2001, 10/15/2001 MCV4 Completed 09/07/2007, 09/07/2007 HPV Vaccine Completed 09/02/2011, 07/12/2008, 09/07/2007 HepA Completed 09/02/2011, 09/07/2007 Hib Aged Out No longer eligib le based on patient 's age to complete this topic IPV (Polio) Aged Out No longer eligib le based on patient 's age to complete this topic Pneumococcal Aged Out No longer eligib le based on patient 's age to complete this topic Insurance Payer Benefit Plan / Subscriber ID Effective Phone Address T e Group Dates [facility] [id number] 2020-Pr [phone] Comp INSURANCE WC INSURANCE WC esent [phone] [place] [address] MEDICA MEDICA CHOICE [id number] 2018-Pre Com mercial sent Hellen Sigala Personal/Family Self 1990 [id number] [phone] [employer] (Work) [phone] Hellen Sigala Workers Comp Self [phone] [phone] [employer] (Work) [id number] Care Teams Auto Clocks Repairer Relationship Specialty Start Date End Date Found, No Pcp, PCP - General 05/02/15 [address] [place] [address]
--- OUTSIDE RECORDS SUMMARY | 2022-01-31 07:17 | XMS_ITS | Encounter Summary ---
:1990 [facility] Address [address] [place] [address] Care Team Providers Name Role Phone Brisa Smith PA-C Primary Care Provider Encounter Details Date Type Department Care Team Description 07/11/2007 Office Visit [facility] [place] [address] [place] [address] Social History Tobacco Use Types Packs/Day Years Used Date Smoking Tobacco: Never Assessed Sex Assigned at Date Recorded Not on file documented as of this encounter Last Filed Vital Signs Vital Sign Reading Time Taken Comments Blood Pressure 107/62 07/11/2007 1:15 PM CDT Pulse 79 07/11/2007 1:15 PM CDT Temperature 36.5 ??C (97.7 ??F) 07/11/2007 1:15 PM ORAL C: 3 6.5 C CDT Respiratory Rate 14 07/11/2007 1:15 PM CDT Oxygen Saturation - - Inhaled Oxygen Concentration - - Weight - - Height - - Body Mass Index - - documented in this encounter Progress Notes Roxanne Flores MD - 07/11/2007 12:01 AM CDT Progress Notes signed by Roxanne Flores MD at 08/11/07 1055 Author: Roxanne Flores MD Service: (none) Author Type: Physician Filed: 08/18/10 0320 Note Time: 07/11/07 0001 Status: Signed Jig And Fixture Maker: Roxanne Flores MD (Physician) NAME: MINO POSADAS MR#: [id number] ACCT: [id number] VISIT: [id number] DICTATING CLINICIAN: ROXANNE FLORES MD JOB: [id number] LOC: 520 CLINIC PROGRESS NOTE DATE OF VISIT: 07/11/2007 SUBJECTIVE: This 16-year-old female comes in today with concerns for having a sore throat for the past 2 days. Also, has had some right ear pain along with it. Pretty mild and some runny nose also noted. Has felt some low-grade fever also. PAST MEDICAL HISTORY: Healthy. MEDICATIONS: None. ADR/ALLERGIES: PENICILLIN AND SULFA. OBJECTIVE: VS: BP: 107/62. T: Afebrile. P: 79. R: 14. Exam shows the patient looking great. Oral mucosa is moist and throat shows minimal erythema. Ears: Look normal. NECK: Supple. No lymph nodes palpable. LUNGS: Clear. CARDIOVASCULAR: Regular rate and rhythm. Normal S1, S2. Rapid strep is negative. ASSESSMENT: 1. Viral pharyngitis. 2. Otalgia. PLAN: Would recommend symptomatic treatment, and recheck as needed. [id number] C: 07/13/07 12:26 DOCUMENT: [id number] documented in this encounter Plan of Treatment Not on filedocumented as of this encounter Visit Diagnoses Not on filedocumented in this encounter Care Teams Housing Court Judge Relationship Specialty Start Date End Date Brisa Smith PA-C PCP - General 07/30/10 04/18/15 [address] [place] [address] documented as of this encounter
--- OUTSIDE RECORDS SUMMARY | 2022-01-31 07:17 | XMS_ITS | Encounter Summary ---
:1990 Author Organization [facility] Address [address], [place] [address] Care Team Providers Name Role Phone Brisa Smith PA-C Primary Care Provider Reason for Visit Reason Comments Other Encounter Details Date Type Department Care Team Description 11/02/2008 Telephone [facility], Message Other [address] [place] [address] Social History Tobacco Use Types Packs/Day Years Used Date Smoking Tobacco: Never Assessed Sex Assigned at Date Recorded Not on file documented as of this encounter [facility], Message - 11/02/2008 10:32 AM CDT Phone Note filed by [facility] at 08/17/1051 Author: [facility] Service: (none) Author Type: (none) Filed: 08/17/10 0651 Note Time: 11/02/08 1032 Status: Signed Rn Clinical Documentation Specialist: [facility] (Resource) Front Line Sx Call Caller Name/Relationship:Hellen Primary Environmental Engineering Technician: Symptom or request? sores in mouth/under tongue since Friday, tongue feels swollen Is appointment scheduled & when? Revolving Inventory Clerk:Hellen Best call back number:[phone] Is it OK to leave a confidential message on this voicemail? h *ECODE~PNSX2 Created on 02Nov2008 10:32am by BHARATHI DESHPANDE K On [id number] 10:58am CAROLYN BROWN wrote: CLINICIAN FOLLOW-UP: FYI (note is complete). IMPRESSION: mouth sores/? Tjpi-Lfoy-ilk-Mouth Disease. SYMPTOMS: Pt is 18 yr old woman calling with sores in her mouth that started on Friday (3 days ago). She has sore under tongue, on gum, and on cheek. No sores on hands or feet. No present fever, does have sore throat. Had sore on lip on Friday. Denies emergent symptoms Problem List: reviewed in electronic medical record. CARE ADVICE: Care Advice REASSURANCE: Ilzs-mtrc-ryuzu disease is a harmless viral rash. LIQUID ANTACID FOR MOUTH PAIN: Use a liquid antacid 4 times per day. SOFT DIET: Encourage favorite fluids to prevent dehydration. Cold drinks, milkshakes, popsicles, slushes, and sherbet are good choices. Avoid citrus, salty, or spicy foods. For infants, give fluids by cup, spoon or syringe rather than a bottle. (Reason: The nipple can cause pain.) Solid food intake is not important. FEVER MEDICINE: Give acetaminophen (e.g., Tylenol) or ibuprofen for fever above 102F (39C) or severe mouth pain. CONTAGIOUSNESS: Quite contagious but a mild and harmless disease. Incubation period is 3-6 days. Can return to daycare or school after the fever is gone (usually 2 to 3 days). The rash is not contagious. EXPECTED COURSE: The fever lasts 2 or 3 days. The mouth ulcers resolve by 7 days. The rash on the hands and feet lasts 10 days. CALL BACK IF: Signs of dehydration develop. Fever present over 3 days. Advised to call back if any of the following occur: symptoms worsen or persist, any other questions or concerns. PLAN: appt made for this morning with Dr Humphreys in case pt needs anti-viral meds for cold sores Patient/Caller agrees with plan and denies additional questions. References Used: Pediatric Telephone Protocols--Pfsf-Jeym-rmk-Mouth Disease. Call Complete. *SH~BS~HANDFOOTMTH ~ STIGATIONS DIRECTOR documented in this encounter Plan of Treatment Not on filedocumented as of this encounter Visit Diagnoses Not on filedocumented in this encounter Care Teams Apron Cleaner Relationship Specialty Start Date End Date Brisa Smith PA-C PCP - General 07/30/10 04/18/15 [address] [place] [address] documented as of this encounter
--- OUTSIDE RECORDS SUMMARY | 2022-01-31 07:17 | XMS_ITS | Encounter Summary ---
:1990 Author [facility] Address [address] [address] Care Team Providers Name Role Phone Brisa Smith PA-C Primary Care Provider Encounter Details Date Type Department Care Team Description 11/02/2008 PN Conversion Only HELENA CONVERSION Brisa Smith, [address] [place] [address] [place], [place] [address] (Wo rk) Social History Tobacco Use Types Packs/Day Years Used Date Smoking Tobacco: Never Assessed Sex Assigned at Date Recorded Not on file documented as of this encounter Plan of Treatment Not on filedocumented as of this encounter Procedures Procedure Name Priority Date/Time Associated Comments Diagnosis HELICOBACTER PYLORI Routine 11/02/2008 11:48 Resu lts for this IGG AM CDT procedure are i n the results section. documented in this encounter Results Helicobacter Pylori IGG (11/02/2008 11:48 AM CDT) [facility] Method Time Signature Helicobacter Negative Negative HP CONVERSION pylori IgG Comment: No Helicobacter IgG antibody detected. This assay should be used only for patie nts with symptoms suggestive of gastrointest inal disease. Specimen (Source) Anatomical Collection Method Collection Time Re ceived Time Location / / Volume Laterality 11/02/2008 11:48 AM CDT Brisa Smith PA-C LAB_1 Performing Organization Address City/State/ZIP Code Phon e Number HP CONVERSION documented in this encounter Visit Diagnoses Not on filedocumented in this encounter Care Teams American History Teacher Relationship Specialty Start Date End Date Brisa Smith PA-C PCP - General 07/30/10 04/18/15 [address] [place] [address] documented as of this encounter
--- OUTSIDE RECORDS SUMMARY | 2022-01-31 07:17 | XMS_ITS | Encounter Summary ---
:1990 [facility] Address [address] [address] Care Team Providers Name Role Phone Brisa Smith PA-C Primary Care Provider Encounter Details Date Type Department Care Team Description 09/07/2007 PN Conversion Only HELENA CONVERSION [address] [place] [address] Social History Tobacco Use Types Packs/Day Years Used Date Smoking Tobacco: Never Assessed Sex Assigned at Date Recorded Not on file documented as of this encounter Plan of Treatment Not on filedocumented as of this encounter Visit Diagnoses Not on filedocumented in this encounter Care Teams Batch Unit Treater Relationship Specialty Start Date End Date Brisa Smith PA-C PCP - General 07/30/10 04/18/15 [address] [place], [place] [address] documented as of this encounter
--- OUTSIDE RECORDS SUMMARY | 2022-01-31 07:17 | XMS_ITS | Encounter Summary ---
:1990 Author Organization [facility] Address [address] [place] [address] Care Team Providers Name Role Phone Brisa Smith PA-C Primary Care Provider Reason for Visit Reason Comments Patient Calling Back Encounter Details Date Type Department Care Team Description 09/15/2012 Telephone [facility] Jasmin Whitmore Patient Calling Back [address] [place] [address] Social History Tobacco Use Types Packs/Day Years Used Date Smoking Tobacco: Never Assessed Sex Assigned at Date Recorded Not on file documented as of this encounter Nursing Notes Cary Ashton - 09/15/2012 12:41 PM CDT Received call back from pt. Instructed, per Jasmin Crystal PA-C, pap smear normal, STD screen for gonorrhea/chlamydia negative. Pt verbalized understanding. Denies any questions or concerns at this time. Sangita Harper - 09/15/2012 12:39 PM CDT Pt is calling back states returning call Torito Hearn - 09/15/2012 12:37 PM CDT Left message for patient to call [phone] and ask for nurse triage for lab results. Cary Ashton - 09/15/2012 10:56 AM CDT Message copied by CARY ASHTON on FriSeptember 15, 2012 10:56 AM ------ Message from: JASMIN CRYSTAL Created: FriSeptember 15, 2012 10:43 AM Please call patient pap smear normal, STD screen for gonorrhea/chlamydia negative ------ documented in this encounter Plan of Treatment Not on filedocumented as of this encounter Visit Diagnoses Not on filedocumented in this encounter Care Teams Wire Weaver Cloth Relationship Specialty Start Date End Date Brisa Smith PA-C PCP - General 07/30/10 04/18/15 [address] [place] [address] documented as of this encounter
--- OUTSIDE RECORDS SUMMARY | 2022-01-31 07:17 | XMS_ITS | Encounter Summary ---
:1990 Author Organization [facility] Address [address] [address] Care Team Providers Name Role Phone Brisa Smith PA-C Primary Care Provider Encounter Details Date Type Department Care Team Description 09/30/2007 PN Conversion Only HELENA CONVERSION Brisa Smith, [address] [place] [address] [place], [place] [address] (Wo rk) Social History Tobacco Use Types Packs/Day Years Used Date Smoking Tobacco: Never Assessed Sex Assigned at Date Recorded Not on file documented as of this encounter Plan of Treatment Not on filedocumented as of this encounter Procedures Procedure Name Priority Date/Time Associated Diagnosis Comme nts SICKLE CELL SCREEN Routine 09/30/2007 10:14 AM Re sults for this (> 6 MONTHS) CDT procedure are i n the results section. documented in this encounter Results Sickle Cell Screen (> 6 Months) (09/30/2007 10:14 AM CDT) Analysis Performed At Patho logist Time Signature Sickle Cell Negative Negative HP CONVERSION Screen Specimen (Source) Anatomical Collection Method Collection Time Re ceived Time Location / / Volume Laterality 09/30/2007 10:14 AM CDT Brisa Smith PA-C LAB_1 Performing Organization Address City/State/ZIP Code Phon e Number HP CONVERSION documented in this encounter Visit Diagnoses Not on filedocumented in this encounter Care Teams Fish Bailer Relationship Specialty Start Date End Date Brisa Smith PA-C PCP - General 07/30/10 04/18/15 [address] [place] [address] documented as of this encounter
--- OUTSIDE RECORDS SUMMARY | 2022-01-31 07:17 | XMS_ITS | Encounter Summary ---
:1990 Author Organization [facility] Address [address] [address] Care Team Providers Name Role Phone Lynette Smith PA-C Primary Care Provider Reason for Visit Reason Comments Other Encounter Details Date Type Department Care Team Description 11/15/[address] [facility], Message Other [address] [place] [address] Social History Tobacco Use Types Packs/Day Years Used Date Smoking Tobacco: Never Assessed Sex Assigned at Date Recorded Not on file documented as of this encounter [facility], Message - 11/15/2008 12:11 PM CDT Phone Note filed by [employer]ch[employer] at 08/17/10 3942 Author: [employer] Service: (none) Author Type: (none) Filed: 08/17/10 5950 Note Time: 11/15/08 1211 Status: Signed Evs Attendant: [employer] (Resource) Front Line Sx Call Caller Name/Relationship:ptHellen Primary Erosion Control Specialist:Luis Symptom or request?Pt was earlier in the month for stomach pain, pt was given rx that is not working. Pt is still having same sx. Is appointment scheduled & when?no Chocolate Finisher:pt Best call back number:[phone] c Is it OK to leave a confidential message on this voicemail?yes *ECODE~PNSX2 Created on [id number] 12:11pm by JESSICA KITCHEN On 15Nov2008 12:21pm JESSICA HERNÁNDEZ wrote: Left message to callback to [id number] and ask to speak with a nurse. On 15Nov2008 12:30pm BHARATHI DESHPANDE wrote: pt returning call On 15Nov2008 12:35pm JESSICA HERNÁNDEZ wrote: Seen 11/02/08 for dyspepsia, tx with Omeprazole 20mg/d. State she has not had any relief with her sx. Deny sx progressive or changed, just not better. Please advice. Pharmacy: [facility] # On 15Nov2008 4:24pm LYNETTE SMITH wrote: If she is not improving f/u appt. Acknowledged by LYNETTE SMITH on 4:24pm On 15Nov2008 4:30pm JANIA BAUTISTA wrote: Pt informed of the above information and agrees. Pt was transfered to scheduling. D ARTILLERY CANNONEER documented in this encounter Plan of Treatment Not on filedocumented as of this encounter Visit Diagnoses Not on filedocumented in this encounter Care Teams Medical Secretary Receptionist Relationship Specialty Start Date End Date Lynette Smith, LUIS PCP - General 07/30/10 04/18/15 [address] [place] [address] documented as of this encounter
--- OUTSIDE RECORDS SUMMARY | 2022-01-31 07:17 | XMS_ITS | Encounter Summary ---
:1990 Author Organization [facility] Address [address] [place] [address] Care Team Providers Name Role Phone Brisa Smith PA-C Primary Care Provider Encounter Details Date Type Department Care Team Description 11/02/2008 Office Visit [facility]os Brisa Smith PA-C [address] [place], [place] [address] [address] [place], [place] [address] (Wo rk) Social History Tobacco Use Types Packs/Day Years Used Date Smoking Tobacco: Never Assessed Sex Assigned at Date Recorded Not on file documented as of this encounter Last Filed Vital Signs Vital Sign Reading Time Taken Comments Blood Pressure 102/60 11/02/2008 11:31 AM CDT Pulse 68 11/02/2008 11:31 AM CDT Temperature - - Respiratory Rate - - Oxygen Saturation - - Inhaled Oxygen Concentration - - Weight 67.6 kg (148 lb 15.8 oz) 11/02/2008 11:31 AM C: 67.6kg CDT Height - - Body Mass Index 22.65 09/07/2007 1:11 PM CDT documented in this encounter Progress Notes Brisa Smith PA-C - 11/02/2008 12:01 AM CDT Progress Notes signed by Brisa Smith PA-C at 11/02/08 7174 Author: Brisa Smith PA-C Service: (none) Author Type: Physician Print Inspector Filed: 08/18/10 1626 Note Time: 11/02/08 0001 Status: Signed Mold Repair Technician: Brisa Smith PA-C (Resource) Subjective: This is a 18-year-old female who presents to the clinic she with two concerns. Concern number one. She had a cold sore on her upper lip on Friday which is now better. On Friday she developed a canker sores under her tongue. She is not run any fevers. She has a mild sore throat. He is avoiding acidic foods and spicy foods. She has been treating the canker sores with salt water gargles. Concern 2. She's been experiencing dyspepsia for approximately 2 months. She rarely takes anti-inflammatory medications. She is not tried any gltk-woc-bnukxuw products. Food aggravates her symptoms causing her to have some sharp discomfort in the midepigastric area. She denies heartburn, melena, or hematochezia. Past medical history: Reviewed in todays lastwork health profile Social history: Nonsmoker Review of Systems: Above Adverse drug reactions: See today's last word health profile Current medications: See today's last word health profile Vital signs: See today's last word health profile Objective: Patient is pleasant no acute distress oriented to person place and time. On her right upper lip she does have a cold sore that is currently healing. Under her tongue she has a small canker sore and currently noted. Does look like a benign aphthous ulcer. Lungs today are clear heart regular rate rhythm without murmurs gallops or rubs. Abdomen has positive bowel sounds all 4 quadrants mild midepigastric tenderness noted but no organ enlargement. Assessment: 1. Herpetic labialis improving 2. Aphthous ulcers 3. Dyspepsia Plan: Number one. For the herpetic ulcers just observe 2. Magic mouthwash was called in for the aphthous ulcers to use until symptoms improve 3. For the dyspepsia is to be started on omeprazole 20 mg daily H. pylori testing is currently pending. *SH~DNS~SOAP documented in this encounter Plan of Treatment Not on filedocumented as of this encounter Visit Diagnoses Not on filedocumented in this encounter Care Teams Parts Puller Relationship Specialty Start Date End Date Brisa Smith PA-C PCP - General 07/30/10 04/18/15 [address] [place] [address] documented as of this encounter
--- OUTSIDE RECORDS SUMMARY | 2022-01-31 07:17 | XMS_ITS | Encounter Summary ---
:1990 [facility] Address [address] [address] Care Team Providers Name Role Phone Brisa Smith PA-C Primary Care Provider Encounter Details Date Type Department Care Team Description 08/27/2010 PN Conversion Only CONVERSION CONVERSION Lena Chiu, TAILOR APPRENTICE, DISTRIBUTION DISPATCHER [address] [place], [place] [address] (Wo rk) Social History Tobacco Use Types Packs/Day Years Used Date Smoking Tobacco: Never Assessed Sex Assigned at Date Recorded Not on file documented as of this encounter Plan of Treatment Not on filedocumented as of this encounter Visit Diagnoses Not on filedocumented in this encounter Care Teams Hide And Skin Colerer Relationship Specialty Start Date End Date Brisa Smith PA-C PCP - General 07/30/10 04/18/15 [address] [place] [address] documented as of this encounter
--- OUTSIDE RECORDS SUMMARY | 2022-01-31 07:17 | XMS_ITS | Encounter Summary ---
:1990 Author Organization [facility] Address [address] [place] [address] Care Team Providers Name Role Phone Brisa Smith PA-C Primary Care Provider Encounter Details Date Type Department Care Team Description 07/12/2008 Office Visit Rocio Griffiths [facility] [address] [place] [address] [place] [address] [place] [address] [phone] (Wo rk) Social History Tobacco Use Types Packs/Day Years Used Date Smoking Tobacco: Never Assessed Sex Assigned at Date Recorded Not on file documented as of this encounter Last Filed Vital Signs Vital Sign Reading Time Taken Comments Blood Pressure 112/64 07/12/2008 8:18 AM CDT Pulse 64 07/12/2008 8:18 AM CDT Temperature - - Respiratory Rate - - Oxygen Saturation - - Inhaled Oxygen Concentration - - Weight 68.5 kg (150 lb 15.9 oz) 07/12/2008 8:18 AM CDT C: 68.5kg Height - - Body Mass Index 22.96 09/07/2007 1:11 PM CDT Body Mass Index Percentile 65.88 % 07/12/2008 8:18 AM CD T Growth Chart: CDC (Girls, 2-20 Years) documented in this encounter Progress Notes Rocio Bermudez MBBS - 07/12/2008 12:01 AM CDT Progress Notes signed by Rocio Bermudez MD at 08/14/08 7034 Author: ZAK Giles Service: (none) Author Type: Physician Filed: 08/18/10 1330 Note Time: 07/12/08 0001 Status: Signed Decision Support Analyst: ZAK Giles (Physician) NAME: MINO POSADAS MR#: [id number] ACCT: [id number] VISIT: [id number] DICTATING CLINICIAN: Rocio Bermudez MD CONFIRM #: [id number] LOC: 1702 CLINIC PROGRESS NOTE DATE OF VISIT: 07/12/2008 SUBJECTIVE: : 1990. 17-year-old with past medical history significant for chronic insomnia presented to the clinic today for concerns regarding the continuing symptoms. Patient has had these symptoms for over 2 years and was evaluated about a year ago when she was started on trazodone, which had helped her falling asleep. Patient explains her daytime routine as getting up around 8:00 to 9:00 every day and then has classes from 9:00 to 11:00. Does track practice from 2:00 to 6:00 p.m. and comes back to her room around 6:00 p.m. when she does home work and then after dinner, goes to be between 9:30 and 10:00 very regularly. Rarely takes coffee, occasionally a cup of tea which is around once a week and generally in the morning hours. Patient does have a TV in the bedroom and does have a roommate who shares the same bedroom, but they rarely watch TV, and her roommate is also pretty quiet. She does not feel that because of her roommate she is disturbed. Denies any problems with snoring. Patient describes her symptoms of insomnia as problems with falling asleep as well as staying asleep. Most of the nights, she has a problem falling asleep, but occasionally, she can fall asleep, but then gets up every 1 to 2 hours. She does not really know why. Does not specifically have to go to the bathroom or anything like that. Patient denies any significant concerns with leg pain or leg jerking, occasionally leg pain because of her regular track practice, but most of the night, that his not a concern. Patient does feel that she is under lots of stress given that she is very active in track as well as with her studies, and PHQ-9 was done today. Patient marked 3 each for problems sleeping as well as feeling tired due to lack of sleep and 1 for anhedonia, feeling depressed and guilty feeling, and patient feels that if she sleeps better, she generally has a more positive outlook towards her. The rest of the complete review of systems is negative. Patient also wants a refill of her control. Last Pap smear was done in 04/2006, which was negative. Patient will arrange for a repeat visit for Pap smear in the next 3 months. PAST MEDICAL HISTORY: Reviewed and updated in patient health profile in Last[facility] today. MEDICATION LIST: Reviewed with patient and updated in patient health profile in LastWord. ADR/ALLERGIES: REVIEWED WITH PATIENT AND UPDATED IN PATIENT HEALTH PROFILE IN [facility]. OBJECTIVE: VS: Reviewed. Within normal limits. BP: 112/62. P: 64. Wt: 151. MENTAL STATUS: Appropriately dressed and groomed. Normal speech in pace and fluency. Alert and oriented x3. Short and long-term memory intact in routine conversation. Mood and affect normal. Does not appear depressed or anxious. Patient denies any current suicidal ideation, intent or plan. Rest of the exam was deferred today. ASSESSMENT: 1. Insomnia, chronic. Patient was restarted on trazodone 50 mg. Advised to try 1/2 a pill. Also advised regarding conservative means including meditation, etc. And other relaxation exercises to help her sleep. Also discussed sleep hygiene in great detail. 2. Contraception counselling. Patient would like to continue with the control pills. Given 3-month supple. Patient will arrange for a pelvic exam appointment in the next 3 months. Patient was agreeable with plan. PLAN: See assessment. SR:[id number] C: 07/12/08 13:15 CONFIRM #: [id number] documented in this encounter Plan of Treatment Not on filedocumented as of this encounter Visit Diagnoses Not on filedocumented in this encounter Care Teams Bottom Brusher Relationship Specialty Start Date End Date Brisa Smith PA-C PCP - General 07/30/10 04/18/15 [address] [place] [address] documented as of this encounter
--- OUTSIDE RECORDS SUMMARY | 2022-01-31 07:17 | XMS_ITS | Encounter Summary ---
:1990 Author [facility] Address [address] [address] Care Team Providers Name Role Phone Brisa Smith PA-C Primary Care Provider Encounter Details Date Type Department Care Team Description 07/16/2006 PN Conversion Only HELENA CONVERSION [address] [place] [address] Social History Tobacco Use Types Packs/Day Years Used Date Smoking Tobacco: Never Assessed Sex Assigned at Date Recorded Not on file documented as of this encounter Plan of Treatment Not on filedocumented as of this encounter Visit Diagnoses Not on filedocumented in this encounter Care Teams Air Conditioning Mechanic Relationship Specialty Start Date End Date Brisa Smith PA-C PCP - General 07/30/10 04/18/15 [address] [place], [place] [address] documented as of this encounter
--- OUTSIDE RECORDS SUMMARY | 2022-01-31 07:17 | XMS_ITS | Encounter Summary ---
:1990 Author [facility] Address [address] [address] Care Team Providers Name Role Phone Brisa Smith PA-C Primary Care Provider Encounter Details Date Type Department Care Team Description 01/17/2007 Office Visit [facility] [place] [address] [address] [place] [address] [phone] Social History Tobacco Use Types Packs/Day Years Used Date Smoking Tobacco: Never Assessed Sex Assigned at Date Recorded Not on file documented as of this encounter Last Filed Vital Signs Vital Sign Reading Time Taken Comments Blood Pressure 100/62 01/17/2007 4:50 PM CDT Pulse 68 01/17/2007 4:50 PM CDT Temperature 36.8 ??C (98.2 ??F) 01/17/2007 4:50 PM ORAL C: 3 6.8 C CDT Respiratory Rate - - Oxygen Saturation - - Inhaled Oxygen Concentration - - Weight - - Height - - Body Mass Index - - documented in this encounter Progress Notes Jagdeep Kwok MD - 01/17/2007 12:01 AM CDT Progress Notes signed by Jagdeep Kwok MD at 02/05/072041 Author: Jagdeep Kwok MD Service: (none) Author Type: Physician Filed: 08/17/10 0367 Note Time: 01/17/07 0001 Status: Signed Transportation Superintendent: Jagdeep Kwok MD (Physician) NAME: MION POSADAS MR#: [id number] ACCT: [id number] VISIT: [id number] DICTATING CLINICIAN: Jagdeep Kwok MD JOB: [id number] LOC: 520 CLINIC PROGRESS NOTE DATE OF VISIT: 01/17/2007 SUBJECTIVE: A 16-year-old female is noting cold symptoms this past week. Increasing congestion, more on the right side. She notes drainage in her throat, has been coughing, but not bringing anything up. Denies any wheezing or shortness of breath. MEDICATIONS: None. ADR/ALLERGIES: PENICILLIN AND SULFA. OBJECTIVE: VS: BP: 100/62. T: 98.2. P: 68. Well-nourished and hydrated patient has flushing to her cheeks with warmth of a fever. She actually was playing volleyball earlier today. TMs: Did not show erythema or fluid. NARES: Revealed bright red swelling of the turbinates. Drainage is noted more along the back of the throat and particularly on the right side where she is having a pain feeling in her ear. There are lymph nodes enlarged and tender at both angles of the jaw. LUNGS: Clear to auscultation. ASSESSMENT: 1. Sinusitis, acute. 2. Otalgia. PLAN: Zithromax 500 mg daily for 3 days taking that with mealtime. Decongestant use and ibuprofen are reviewed. I expect improvement over the next 3-5 days. If not, or other difficulties develop, recheck. If needed, a refill on Zithromax was given for the second week. BOR:[id number] C: 01/18/07 18:42 DOCUMENT: [id number] documented in this encounter Plan of Treatment Not on filedocumented as of this encounter Visit Diagnoses Not on filedocumented in this encounter Care Teams Dinkey Mechanic Relationship Specialty Start Date End Date Brisa Smith PA-C PCP - General 07/30/10 04/18/15 [address] [place] [address] documented as of this encounter
--- OUTSIDE RECORDS SUMMARY | 2022-01-31 07:17 | XMS_ITS | Encounter Summary ---
:1990 Author Organization [facility] Address [address] [address] Care Team Providers Name Role Phone Brisa Smith PA-C Primary Care Provider Encounter Details Date Type Department Care Team Description 09/07/2007 PN Conversion Only HELENA CONVERSION Brisa Smith, [address] [place] [address] [place], [place] [address] (Wo rk) Social History Tobacco Use Types Packs/Day Years Used Date Smoking Tobacco: Never Assessed Sex Assigned at Date Recorded Not on file documented as of this encounter Plan of Treatment Not on filedocumented as of this encounter Procedures Procedure Name Priority Date/Time Associated Comments Diagnosis URINALYSIS Routine 09/07/2007 2:12 PM Results f or this ROUTINE(MICRO IF POS) CDT proced ure are in the results section. URINALYSIS Routine 09/07/2007 2:12 PM Results f or this MICROSCOPIC CDT procedure are i n the results section. COMPLETE BLOOD Routine 09/07/2007 2:12 PM Results for this COUNT-W/DIFF CDT procedure are i n the results section. CHOLESTEROL, TOTAL Routine 09/07/2007 2:12 PM Res ults for this AND HDL CDT procedure are i n the results section. documented in this encounter Results (ABNORMAL) Complete Blood Count-W/Diff (09/07/2007 2:12 PM CDT) [facility] Method Time Signature White Blood Cell 6.2 3.8 - 11.0 HP CONVERSIO N Count K/cmm Red Blood Cell 4.83 3.70 - HP CONVERSION Count 5.20 m/cmm Hemoglobin 14.1 11.8 - HP CONVERSION 15.5 gm/dL Hematocrit 41.0 35.0 - HP CONVERSION 46.0 % Mean Corpuscular 84.8 80.0 - HP CONVERSION Volume 100.0 fl Mean Corpuscular 29.1 27.0 - HP CONVERSION Hemoglobin 34.0 pg Mean Corpuscular 34.3 32.0 - HP CONVERSION Hemoglobin Conc 36.5 gm/dL [place] RDW 12.6 11.0 - HP CONVERSION 15.0 % Platelet Count 255 140 - 450 HP CONVERSION k/cmm Differential Auto-Dif No normal HP CONVERSION Verify range Neutrophils 3.1 2.0 - 7.5 HP CONVERSION Absolute Count K/cmm Neutrophil 50.1 50.0 - HP CONVERSION 75.0 % Lymphocyte % 40.2 (H) 20.0 - HP CONVERSION 40.0 % Monocyte 7.2 5.0 - 14.0 HP CONVERSION % Eosinophil 1.7 0.0 - 6.0 HP CONVERSION % Basophil % 0.8 0.0 - 2.0 HP CONVERSION % Specimen (Source) Anatomical Collection Method Collection Time Re ceived Time Location / / Volume Laterality 09/07/2007 2:12 PM CDT Brisa Smith PA-C LAB_1 Performing Organization Address City/[facility]/ZIP Code Phon e Number HP CONVERSION Cholesterol, Total and HDL (09/07/2007 2:12 PM CDT) Analysis Performed At Path logist Time Signature Cholesterol/HDL 2.4 No normal HP CONVERSION Ratio Screen range Cholesterol 118 <170 mg/dL HP CONVERSION HDL Cholesterol 50 >40 mg/dL HP CONVERSION Specimen (Source) Anatomical Collection Method Collection Time Re ceived Time Location / / Volume Laterality 09/07/2007 2:12 PM CDT Brisa Smith PA-C LAB_1 Performing Organization Address City/State/ZIP Code Phon e Number HP CONVERSION Urinalysis Routine(Micro If Pos) (09/07/2007 2:12 PM CDT) Patholo gist Method Time Signature Turbidity Clear No normal HP CONVERSION range pH Urine 7.0 4.5 - 7.5 HP CONVERSION Protein Urine Negative Neg-Trac HP CONVERSION Glucose, Negative Neg-Trac HP CONVERSION Qualitative U Ketones Negative Negative HP CONVERSION U BILI Negative Negative HP CONVERSION Blood Urine Negative Negative HP CONVERSION Nitrite Urine Negative Negative HP CONVERSION Leukocyte Negative Negative HP CONVERSION Esterase Urine Urobilinogen Negative 0.2 - 1.0 HP CONVERSION Urine U Specific 1.015 1.005 - 25 HP CONVERSION [place] Specimen (Source) Anatomical Collection Method Collection Time Re ceived Time Location / / Volume Laterality 09/07/2007 2:12 PM CDT Brisa Smith PA-C LAB_1 Performing Organization Address City/[facility] Phon e Number HP CONVERSION Urinalysis Microscopic (09/07/2007 2:12 PM CDT) [facility] Method Time Signature White Blood 0-2/HPF 0 - 3 HP CONVERSION Cells Urine Red Blood Cells Negative 0 - 2 HP CONVERSION Urine Epithelial Few Few /HPF HP CONVERSION Cells Crystals Amorph None HP CONVERSION Specimen (Source) Anatomical Collection Method Collection Time Re ceived Time Location / / Volume Laterality 09/07/2007 2:12 PM CDT Brisa Smith PA-C LAB_1 Performing Organization Address City/[facility] Phon e Number HP CONVERSION documented in this encounter Visit Diagnoses Not on filedocumented in this encounter Care Teams Signal Helper Relationship Specialty Start Date End Date Brisa Smith PA-C PCP - General 07/30/10 04/18/15 [address] [place] [address] documented as of this encounter
--- OUTSIDE RECORDS SUMMARY | 2022-01-31 07:17 | XMS_ITS | Encounter Summary ---
:1990 Author Organization [employer] Address [address] [address] Care Team Providers Name Role Phone Brisa Smith PA-C Primary Care Provider Encounter Details Date Type Department Care Team Description 07/16/2006 Office Visit [place] [facility], Declan5 Kaitlin Stern APRN, SUPERVISOR [employer]MENT [place], [place] [id number] [phone] [place] [address] (Wo rk) Social History Tobacco Use Types Packs/Day Years Used Date Smoking Tobacco: Never Assessed Sex Assigned at Date Recorded Not on file documented as of this encounter Last Filed Vital Signs Vital Sign Reading Time Taken Comments Blood Pressure - - Pulse - - Temperature 36.9 ??C (98.4 ??F) 07/16/2006 11:05 AM ORAL C: 36.9 C CDT Respiratory Rate - - Oxygen Saturation - - Inhaled Oxygen Concentration - - Weight 66.9 kg (147 lb 7.8 07/16/2006 11:05 AM C: 66.9k g oz) CDT Height - - Body Mass Index - - documented in this encounter Progress Notes Lillian Rosas APRN, ROSA - 07/16/2006 12:01 AM CDT Progress Notes signed by Lillian Rosas APRN, CNP at 07/16/06 1602 Author: Lillian Rosas, JOVANNA Service: (none) Author Type: Nurse Practitioner Filed: 08/17/101929 Note Time: 07/16/06 0001 Status: Signed Ship Rigger Apprentice: JOVANNA Gagnon (Nurse Practitioner) Acute Clinic Visit IMPRESSION: Viral Syndrome. SUBJECTIVE: History of Present Illness: Accompanied By: Mother. Symptom(s): Afebrile. Activity level decreased. Headache. Rhinorrhea. Sore throat. Cough. Eating well. Rhinorrhea: Duration: 3 days. Sore throat: Duration: 2 days. Acute Medications Used / Exposures: Ibuprofen. Past / Family History: Patient's Adverse Drug Reactions were reviewed and [facility] today [facility] Chronic medications were reviewed and updated today on Health Profile in [facility]. OBJECTIVE: Weight: 147.5 Temperature: 98.6 degrees F. General: mildly ill appearing but non-toxic alert and appropriate. Eyes: no injection or drainage. Ears: canals and tympanic membranes normal bilaterally. Nose: moderate congestion Oropharynx: moist mucus membranes, clear pharynz Neck: supple without adenopathy or goiter. Chest: clear to auscultation; normal effort. Labs/Studies Done Today Rapid Strep: negative. ASSESSMENT: Viral Syndrome. PLAN: Symptomatic care. Encourage fluids and rest. Acetaminophen, ibuprofen, or other OTC medications only as directed on package. RTC PRN if fevers are difficult to control, poor fluid intake, or progressive worsening of symptoms. Treatment of viral illnesses discussed with pt/parents and lack of indications for antibiotic treatment. Throat Culture pending If Strep culture is positive, nurse is to call in the following antibiotic: Azithromycin 12 mg/kg (or maximum of 500 mg) daily for 5 days. *SH~PC~TANG ~ Shorthand Note completed on: 07/16/2006 2:43 PM documented in this encounter Plan of Treatment Not on filedocumented as of this encounter Visit Diagnoses Not on filedocumented in this encounter Care Teams Fan Balancer Relationship Specialty Start Date End Date Brisa Smith PA-C PCP - General 07/30/10 04/18/15 [address] [place] [address] documented as of this encounter
--- OUTSIDE RECORDS SUMMARY | 2022-01-31 07:17 | XMS_ITS | Encounter Summary ---
:1990 Author Organization [facility] Address [address] [place] [address] Care Team Providers Name Role Phone Brisa Smith PA-C Primary Care Provider Reason for Visit Reason Comments Annual Exam Ear Pain Encounter Details Date Type Department Care Team Description 09/02/2011 Office Visit [facility] Jasmin Crystal p hysical exam (Primary Dx); Medicine K Screening for malignant neop lasm of the cervix; [address] Depression, major, recurrent ; [place], [place] Screening for STDs (sexually transmitted diseases); [id number] Contraceptive management; [phone] Need vaccinatio n-viral disease; Vacc for viral hepatitis; Right ear pain Social History Tobacco Use Types Packs/Day Years Used Date Smoking Tobacco: Never Assessed Sex Assigned at Date Recorded Not on file documented as of this encounter Last Filed Vital Signs Vital Sign Reading Time Taken Comments Blood Pressure 120/75 09/02/2011 9:20 AM CDT Pulse 75 09/02/2011 9:20 AM CDT Temperature - - Respiratory Rate 16 09/02/2011 9:20 AM CDT Oxygen Saturation - - Inhaled Oxygen Concentration - - Weight 70.3 kg (155 lb) 09/02/2011 9:20 AM CDT Height 173.4 cm (5' 8.25) 09/02/2011 9:20 AM CDT Body Mass Index 23.4 09/02/2011 9:20 AM CDT documented in this encounter Progress Notes Jasmin Crystal - 09/02/2011 10:20 AM CDT Preventive Exam SUBJECTIVE: 20 y.o. y/o patient presents for a routine preventive physical exam. Last physical 1 year ago. She is not fasting today. She is currently in college and home for the summer to work. She would also like to discuss control she has been on Nuvaring for the past year and is looking to switch to Seasonale. [facility]. She is very activeand does not like having her period every month. She has been on the pill before and did well. Denies history of clotting disorders, migraines, or tobacco use. She also reports right ear pain on and off for the past year. It usually occurs when she is outside running, but can occur at all times of the year. She denies environmental allergies or change in hearing. Occasionally she will hear a buzzing noise, denies ringing. Denies history of teeth grinding or TMJ. Denies history of ear tubes or ear infections. She does report being told her wisdom teeth are coming in on top. She is also wondering about depression medication. She reports she was diagnosed with depression a few years ago but she never went on medication. She feels like her symptoms have been worsening lately. She feels more down, difficulty sleeping, lack of interest in activities. She has a strong family history of depression. Denies SI or HI. Denies recent life changes or stressors. 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 Pap hx: Last pap 2010, normal Sexual History: History Sexual Activity ??? Sexually Active: Not Currently nuva ring STD Hx: chlamydia 2010, treated with antibiotics, never retested. NuvaRing vaginal inserts Past Medical History Diagnosis Date ??? Varicella Past Surgical History Procedure Date ??? Tonsillectomy Family History Problem Relation Age of Onset ??? Depression Mother ??? Depression Father ??? Depression Brother History Social History ??? 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 Smoking status: Never Smoker ??? Smokeless tobacco: Not on file ??? Alcohol Use: 1.7 oz/week 2 Cans of beer, 1 Drinks containing 0.5 oz of alcohol per week ??? Drug Use: Not on file ??? Sexually Active: Not Currently nuva ring Other Topics Concern ??? City Water No ??? Exercise Yes ??? Seat Belt Yes ??? Special Diet No ??? Weight Concern No Social History Narrative Currently home from college. Attends [employer] will be a senior next fall studying engineering. Immunizations: Immunization History Administered Date(s) Administered ??? HPV 09/07/2007, 07/12/2008, 09/02/2011 ??? Hep A Adult (19+ yrs) 09/02/2011 ??? Hep A Ped/adol (1-18 yrs) 09/07/2007 ??? Hep B ped/adol vaccine 10mcg 06/23/2002 ??? Hepatitis B Virus Vacc Recom/Medic Con 10/15/2001, 11/23/2001 ??? MCV4 (Menactra) 09/07/2007 ??? MMR 11/23/2001 ? ? Td Adult (>7 years) 10/15/2001 ??? Tdap (Adacel) 09/07/2007 Adverse drug reactions: Allergies Allergen Reactions ??? Sulfa (Sulfonamide Antibiotics) LW Reaction: Rash, Generalized ??? Penicillins LW Reaction: Rash, Generalized Current Medications: Outpatient encounter prescriptions as of 09/02/2011 Medication Sig Dispense Refill ??? citalopram (CELEXA) 10 mg tablet Take 1 tablet by mouth daily (every 24 hours). 30 tablet 2 ??? ethinyl estradiol-etonogestrel (NUVARING) 0.12-0.015 mg/24 hr vaginal ring LW Addl Instr:Insert ring vaginally on or before the 5th day of cycle. Remove ring after three consecutive weeks. After a one week break, insert a new ring on the same day of the week and the same time of day. 3 4 ??? levonorgestrel-ethinyl estradiol (SEASONALE) 0.15-30 mg-mcg per tablet Take 1 tablet by mouth daily (every 24 hours). Follow package directions. 30 tablet 12 Review of Systems: With the exception of any items noted above, the remainder of complete ROS is negative. OBJECTIVE: BP 120/75 Pulse 75 Resp 16 Ht 5' 8.25 (1.734 m) Wt 155 lb (70.308 kg) BMI 23.40 kg/m2 LMP 08/17/2011 General: Patient alert, in NAD. HEENT: PERRLA. Bilateral TM's, external canals, oropharynx normal. Right TM intact, nonbulging, no fluid, canal normal, tragus nontender, no apparent TMJ tenderness. Neck: Supple, without thyromegaly or mass. Upper extremities: FROM with good strength, no lesions or deformities. CV: RRR without murmurs, rubs or gallops. Resp: Clear to auscultation without crackles, wheezes or distress. Abdomen: Soft, non-tender, without hepatosplenomegaly, masses, or hernias. Breasts:Nontender, without masses, nipple discharge, erythema, or axillary adenopathy. Pelvic: Normal external genitalia and urethra. Grady, moist vaginal and cervical mucosa, without lesions. Pap obtained Cervix nontender no lesions, os closed. Uterus felt small and mobile, nontender no masses. Adnexa no masses or tenderness. Lymphatic: No neck, supraclavicular, axillary or groin lymphadenopathy. Lower extremities: FROM, normal gait without edema, lesions, or deformity. Skin: warm and dry, no lesions. Neuro: CN II-XII, motor & sensory function grossly intact, patellar DTR 2+. Psychiatric: Alert & oriented with normal affect and insight, does not appear depressed or anxious. PNQ-9 score 9 ASSESSMENT: Routine preventive exam. Past Medical History Diagnosis Date ??? Varicella PLAN: Follow-up in 1 year for pap and physical. Immunizations updated today, administered 3rd HPV and 3rd Hep A. Per patient she has received other immunizations at outside clinic which she will bring records. Pending Labs: pap smear, STD screen Ordered Exams: none medications refilled: Orders Placed This Encounter Medication ??? citalopram (CELEXA) 10 mg tablet Sig: Take 1 tablet by mouth daily (every 24 hours). Dispense: 30 tablet Refill: 2 ??? levonorgestrel-ethinyl estradiol (SEASONALE) 0.15-30 mg-mcg per tablet Sig: Take 1 tablet by mouth daily (every 24 hours). Follow package directions. Dispense: 30 tablet Refill: 12 Depression, mild: Discussed medication management, patient looking for low dose with least side effects. Will start Celexa 10mg PO qday, side effect profile reviewed. Follow-up 1 month for recheck may need to increase at that time. Follow-up sooner with worsening symptoms of depression or SI. Not interested in seeing therapy at this time. Contraceptive Management: Change to Seasonale as directed. Side effect profile reviewed. Reviewed how and when to take medication. Use back up method first month and with antibtioics. Does not protect against STDs, use condoms as well. Monitor eye pain, headache, abdominal pain, SOB or calf pain. All questions answered. Right ear pain- exam findings normal, will continue to monitor. Use ice, heat, ibuprofen or tylenol as directed for pain. Follow-up worsening symptoms. Recommended glucose and cholesterol screening next year, need to be fasting. Patient was counseled about: breast self exam, use and side effects of OCPs and adequate intake of calcium and vitamin D Exerciseand healthy eating. Will call with abnormal lab results, otherwise will send a letter. All questionsanswered, Patient in agreement with the plan. RTC with future concerns. documented in this encounter Plan of Treatment Not on filedocumented as of this encounter Procedures Procedure Name Priority Date/Time Associated Diagnosis Comme nts ANATOMICAL PATH Routine 09/02/2011 9:45 AM Result s for this LIQUID BASED CDT procedure are i n the results section. PAP SMEAR SCREENING Routine 09/02/2011 9:45 AM Screening for R esults for this CDT malignant neoplasm procedure are in of the cervix the results section. SEXUALLY TRANSMITTED Routine 09/02/2011 9:45 AM Screening for STDs Results for this DISEASE PROBE CDT (sexually procedure are in transmitted the results diseases) section. documented in this encounter Results Sexually Transmitted Disease Probe (09/02/2011 9:45 AM CDT) Component Value Ref Test Analysis Performed At [facility] gist Range Method Time Signature Chlamydia Chlamydia HP CONVERSION Trach DNA trachomatis NEGATIVE by DNA amplification GC DNA Neisseria HP CONVERSION gonorrhea NEGATIVE by DNA amplification. Comment: ? ORDERED BY: JASMIN CRYSTAL SOURCE: Endocervical for molecular testi ng COLLECTED: ??09/02/11 09:45 ? PLATED: ? 09/02/11 10:44 Chlamydia trachomatis DNA Probe ?FINAL ? 09/04/11 10:23 Chlamydia trachomatis NEGATIVE by DNA a mplification The amplified DNA assay is cleared by [facility] for non-medicolegal diagnostic testing in [facility] adult population. Neisseria gonorrhea DNA Probe ?FINAL ? 09/04/11 10:24 Neisseria gonorrhea NEGATIVE by DNA amp lification. The amplified DNA assay is cleared by [facility] for non-medicolegal diagnostic testing in [facility] adult population. Specimen (Source) Anatomical Collection Method Collection Time Re ceived Time Location / / Volume Laterality Endocervical for 09/02/2011 9:45 molecular testing: AM CDT Jasmin Galvez PA-C LAB_1 Performing Organization Address City/State/ZIP Code Phon e Number HP CONVERSION Pap Smear (09/02/2011 9:45 AM CDT) Specimen (Source) Anatomical Collection Method Collection Time Re ceived Time Location / / Volume Laterality 09/02/2011 9:45 AM CDT Narrative HP CONVERSION - 09/05/2011 3:33 PM CDT Final GYNECOLOGICAL CYTOLOGY REPORT Pathology #: [id number] ?Date Obtained: 09/02/2011 ? Date Received: 09/03/2011 INTERPRETATION/RESULTS: Negative for Intraepithelial Lesion or M alignancy SPECIMEN ADEQUACY: Satisfactory for Evaluation. ??Endocervi yonatan cells/transformation zone component present. Verified on 09/05/2011 ??by TOM HA CT(ASCP) (electronic signature) CLINICAL NOTES: ? LMP: 08/17/11, Hormonal [place]: yes . LIQUID BASED PAP SMEAR SPECIMEN TYPE: ?CERVICAL WITH REFLEX TO HPV IF ASCUS PLEASE NOTE: The pap smear is a screening test design ed to aid in the detection of cervical cancer and its pre cursor lesions. It is not a diagnostic procedure and john uld not be used as the sole means of detecting cervical cancer. Both false-positive and false-negative report s may occur. ? End of Report Jasmin Crystal LAB_1 Performing Organization Address City/[facility]/ZIP Code Phon e Number HP CONVERSION Pap Smear Screening (09/02/2011 9:45 AM CDT) P athologist Signature PAP Routine Collected HP CONVERSION Specimen (Source) Anatomical Collection Method Collection Time Re ceived Time Location / / Volume Laterality 09/02/2011 9:45 AM CDT Jasmin Crystal LAB_1 Performing Organization Address City/[facility] Phon e Number HP CONVERSION documented in this encounter Visit Diagnoses Diagnosis Annual physical exam - Primary Routine general medical examination at a health care facility Screening for malignant neoplasm of the cervix Depression, major, recurrent ([facility]) Major depressive disorder, recurrent epi sode, unspecified Screening for STDs (sexually transmitted diseases) Screening examination for venereal disea se Contraceptive management Unspecified contraceptive management Need for prophylactic vaccination and in oculation against other viral diseases(V04.89) Need for prophylactic vaccination and in oculation against other viral diseases Need for prophylactic vaccination and in oculation against viral hepatitis Right ear pain Otalgia, unspecified documented in this encounter Care Teams Regroover Relationship Specialty Start Date End Date Brisa Smith PA-C PCP - General 07/30/10 04/18/15 [address] [place] [address] documented as of this encounter
--- OUTSIDE RECORDS SUMMARY | 2022-01-31 07:17 | XMS_ITS | Encounter Summary ---
:1990 Author Organization [employer] Address [address] [place] [address] Care Team Providers Name Role Phone Brisa Smith PA-C Primary Care Provider Encounter Details Date Type Department Care Team Description 11/02/2009 Office Visit [facility] [place] [id number] [place] [address] [id number] Social History Tobacco Use Types Packs/Day Years Used Date Smoking Tobacco: Never Assessed Sex Assigned at Date Recorded Not on file documented as of this encounter Last Filed Vital Signs Vital Sign Reading Time Taken Comments Blood Pressure 108/61 11/02/2009 3:43 PM CDT Pulse 68 11/02/2009 3:43 PM CDT Temperature 36.8 ??C (98.2 ??F) 11/02/2009 3:43 PM CDT C: 36 .8 C Respiratory Rate 16 11/02/2009 3:43 PM CDT Oxygen Saturation 100% 11/02/2009 3:43 PM CDT Inhaled Oxygen Concentration - - Weight - - Height - - Body Mass Index - - documented in this encounter Progress Notes Niraj Dawson MD - 11/02/2009 12:01 AM CDT Progress Notes signed by Niraj Dawson MD at 11/05/092119 Author: Niraj Dawson MD Service: (none) Author Type: Physician Filed: 08/19/10 0135 Note Time: 11/02/09 0001 Status: Signed Trip Follower: Niraj Dawson MD (Physician) NAME: MINO POSADAS MR#: [id number] ACCT: [id number] VISIT: [id number] DICTATING CLINICIAN: Niraj Dawson MD CONFIRM #: [id number] LOC: 520 CLINIC PROGRESS NOTE DATE OF VISIT: 11/02/2009 SUBJECTIVE: : 1990. Patient is a 19-year-old here with chief complaint of sore throat, cough, ear pain. 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 Her pain started about 2 days ago. She woke up with a sore throat. Some chills. She is not exposed to anything that she is aware of. She has occasional productive cough and ear pain. She has had questionable fever. She has no ear symptoms or facial pains. PAST MEDICAL HISTORY: The patient has been hospitalized for a T and A. Also she has had a fractured wrist twice. She has had a lot of strep before her tonsillectomy. ADR/ALLERGIES: INCLUDE PENICILLIN AND SULFA. MEDICATIONS: Include NuvaRing. FAMILY HISTORY: She relates that there is a lot of depression and anxiety in the family. Both parents with depression, Mother also with anxiety. Her mother has cervical cancer. Father is apparently well. She has 3 siblings. She relates her grandfather and grandmother also have cancer. SOCIAL HISTORY: Does not drink or smoke. She is a student, as mentioned. She is single. She does exercise and nutrition is so-so. It is interesting asking how her social life was, she states she really does not have one, she is tired all the time, she falls asleep. She states her friend's understand it. She has fallen asleep with 5 friend's talking. She has not had any evaluation of this. REVIEW OF SYSTEMS: Her complete review of systems is negative, except for this sleep issue. A depression scale was brought out, the patient really did not seem depressed from the scale, although she had some real sleep problems and she feels that she is sleeping too much and being tired and little energy. OBJECTIVE: EARS/NOSE/AND THROAT: Minimally injected. RST was negative. NECK: Negative. CHEST AND LUNGS: Clear. HEART: Rate and rhythm were normal. Spleen not enlarged. No other adenopathy. ASSESSMENT: Probable viral upper respiratory infection. Otherwise, the patient has a sleep issue. Consider narcolepsy, consider dysthymia, consider deep depression or chronic depression. PLAN: No medications were started as this was apparently a viral illness. However, we discussed how the patient might enter and get an evaluation for her sleep problem. Visit length 25 minutes, of which 15 minutes was spent discussing and evaluating and testing for depression and sleep issues, and 10 minutes for evaluation of her upper respiratory problem. DRL:[id number] C: 11/03/09 13:44 CONFIRM #: [id number] documented in this encounter Plan of Treatment Not on filedocumented as of this encounter Visit Diagnoses Not on filedocumented in this encounter Care Teams Fiber Glass Worker Relationship Specialty Start Date End Date Brisa Smith PA-C PCP - General 07/30/10 04/18/15 [address] [place] [address] documented as of this encounter
--- OUTSIDE RECORDS SUMMARY | 2022-01-31 07:17 | XMS_ITS | Encounter Summary ---
:1990 Author Organization [employer] Address [address] [place] [address] Care Team Providers Name Role Phone Brisa Smith PA-C Primary Care Provider Reason for Visit Reason Comments Sinus Problem Encounter Details Date Type Department Care Team Description 04/19/2011 Office Visit [facility] Chet Pandya M D Acute pharyngitis Medicine [id number] (Primary Dx) [address] [place] [phone] Social History Tobacco Use Types Packs/Day Years Used Date Smoking Tobacco: Never Assessed Sex Assigned at Date Recorded Not on file documented as of this encounter Last Filed Vital Signs Vital Sign Reading Time Taken Comments Blood Pressure 121/69 04/19/2011 9:37 AM FLIGHT OPERATION COORDINATOR Pulse 87 04/19/2011 9:37 AM FLIGHT OPERATION COORDINATOR Temperature 36.9 ??C (98.4 ??F) 04/19/2011 9:37 AM FLIGHT OPERATION COORDINATOR Respiratory Rate 16 04/19/2011 9:37 AM FLIGHT OPERATION COORDINATOR Oxygen Saturation - - Inhaled Oxygen Concentration - - Weight 70.3 kg (155 lb) 04/19/2011 9:37 AM FLIGHT OPERATION COORDINATOR Height - - Body Mass Index 23.57 11/16/2008 1:04 PM CDT documented in this encounter Progress Notes Chet Pandya MD - 04/19/2011 11:15 AM CST Clinic Visit SUBJECTIVE: CC: possible sinus infection HPI: Patient has had sinus congestion and drainage for 2 days. Has had some post-nasal drainage. Hassinus tenderness and/or tooth pain for 2 days. Has had a cough that is worse at night. Has had a sore throat. Denies fevers. Denies ear pain. Denies shortness of breath. Denies nausea, vomiting and diarrhea. Has tried over the counter without relief of symptoms. PMH: No past medical history on file. Adverse Drug Reactions: Sulfa (sulfonamide antibiotics) and Penicillins Medications: Reviewed. Current outpatient prescriptions Medication Sig Dispense Refill ??? azithromycin (ZITHROMAX) 250 mg tablet Take by mouth. Take 2 tablets by mouth on day 1, then take 1 tablet by mouth daily on days 2-5. 6 tablet 0 ??? ethinyl estradiol-etonogestrel (NUVARING) 0.12-0.015 mg/24 hr vaginal ring LW Addl Instr:Insert ring vaginally on or before the 5th day of cycle. Remove ring after three consecutive weeks. After a one week break, insert a new ring on the same day of the week and the same time of day. 3 4 ??? DISCONTD: op medications reviewed ??? DISCONTD: patient not taking any chronic medication OBJECTIVE: Vital Signs: Blood pressure 121/69, pulse 87, temperature 98.5 ??F (36.9 ??C), temperature source Oral, resp. rate 16, weight 155 lb (70.308 kg). General Appearance: Well-appearing, well groomed. Eyes: External exam is normal bilaterally Ears: Bilateral pinnae, canals and TMs normal Nose/Sinuses: moderately congested, sinuses tender to percussion Oropharynx: clear post-nasal drainage, pharynx mildly erythematous, moist mucous membranes Neck: Supple without significant adenopathy or thyromegaly Respiratory: Breathing comfortably. Lung sounds clear to auscultation without wheezes or rales Cardiac: RRR without murmur Abdomen: BS present, soft, nontender, no organomegaly or masses. ASSESSMENT 1. Acute Sinusitis PLAN 1. Begin zithromax, see Epic medications for more information. Medication side effects reviewed. Advised to complete all antibiotics. 2. Recheck if symptoms not resolved upon completion of antibiotics or if symptoms worsen. 3. Oral decongestant and nasal saline use reviewed. documented in this encounter Plan of Treatment Not on filedocumented as of this encounter Procedures Procedure Name Priority Date/Time Associated Diagnosis Comme nts BETA STREP FOLLOWUP Routine 04/19/2011 10:19 AM R esults for this FLIGHT OPERATION COORDINATOR procedure are i n the results section. RAPID STREP SCREEN Routine 04/19/2011 9:56 AM Acute pharyngiti s Results for this WAIVED FLIGHT OPERATION COORDINATOR procedure are i n the results section. documented in this encounter Results Beta Strep Followup (04/19/2011 10:19 AM FLIGHT OPERATION COORDINATOR) [facility] YoPro Global Method Time Signature Strep Screen No beta HP CONVERSION hemolytic Strep Group A isolated. Comment: ? ORDERED BY: CHET PANDYA SOURCE: Throat ? COLLECTED: ??04/19/11 10:19 ? PLATED: ? 04/19/11 10:19 Culture Strep, Follow up from Rapid Test ?? FINAL ? 04/20/11 07:10 No beta hemolytic Strep Group A isolate d. Specimen (Source) Anatomical Collection Method Collection Time Re ceived Time Location / / Volume Laterality Throat: 04/19/2011 10:19 AM FLIGHT OPERATION COORDINATOR Chet Pandya MD LAB_1 Performing Organization Address City/State/ZIP Code Phon e Number HP CONVERSION Rapid Strep Screen Waived (04/19/2011 9:56 AM FLIGHT OPERATION COORDINATOR) Component Value Ref Test Analysis Performed At [facility] Range Method Time Signature Rapid Strep Test performed HP CONVERSIO N Screen Waived by:Clari Rapid Strep Negative for HP CONVERSION Screen Waived Streptococcus group A Comment: ? ORDERED BY: OZBEK, YAKUP SOURCE: Throat ? COLLECTED: ??04/19/11 09:56 ? PLATED: ? 04/19/11 10:18 Rapid Strep Screen Waived ?FINAL ? 04/19/11 10:20 ??Test performed by: Brennen ? Negative for Streptococcus group A Specimen (Source) Anatomical Collection Method Collection Time Re ceived Time Location / / Volume Laterality Throat: 04/19/2011 9:56 AM FLIGHT OPERATION COORDINATOR Narrative HP CONVERSION - 04/19/2011 10:20 AM FLIGHT OPERATION COORDINATOR Performed at [facility], [address] [place] [address] Chet Pandya MD LAB_1 Performing Organization Address City/State/ZIP Code Phon e Number HP CONVERSION documented in this encounter Visit Diagnoses Diagnosis Acute pharyngitis - Primary documented in this encounter Care Teams Vpk Teacher Relationship Specialty Start Date End Date Brisa Smith PA-C PCP - General 07/30/10 04/18/15 [address] [place] [address] documented as of this encounter
--- OUTSIDE RECORDS SUMMARY | 2022-01-31 07:17 | XMS_ITS | Encounter Summary ---
:1990 Author Organization [facility] Address [address], [place] [address] Care Team Providers Name Role Phone Lynette Smith PA-C Primary Care Provider Reason for Visit Reason Comments Other Encounter Details Date Type Department Care Team Description 11/23/2008 Telephone [facility] [employer] Ethan, Message Other [address] [place] [address] Social History Tobacco Use Types Packs/Day Years Used Date Smoking Tobacco: Never Assessed Sex Assigned at Date Recorded Not on file documented as of this encounter Progress Notes Yinka Ramsey MA - 11/23/2008 9:47 AM CDT Phone Note filed by Yinka Ramsey MA at 08/17/10831 Author: Yinka Ramsey MA Service: (none) Author Type: Paster Operator Filed: 08/17/10831 Note Time: 11/23/08946 Status: Signed Catalyst Operator Gasoline: Yinka Ramsey MA (Paster Operator) Results of US in LW. Created on 23Nov2008 9:47am by YINKA RAMSEY On 23Nov2008 10:13am LYNETTE SMITH wrote: Please notify patien that ultrasound is normal. Acknowledged by LYNETTE SMITH on 30Qws59 10:13am On 60Idl6350 10:22am CHLOE QUINN wrote: LM at [phone] (# given by someone at day phone# below) for pt to call for above info. Any nurse can relay result. On 23Nov2008 10:23am ANT PANG wrote: pt is returning call. On 23Nov2008 10:43am JESSICA ISAAC wrote: results given, no further questions at this time. X CONSULTANT documented in this encounter Plan of Treatment Not on filedocumented as of this encounter Visit Diagnoses Not on filedocumented in this encounter Care Teams Clinical Fellow Relationship Specialty Start Date End Date Lynette Smith PA-C PCP - General 07/30/10 04/18/15 [address] [place] [address] documented as of this encounter
--- OUTSIDE RECORDS SUMMARY | 2022-01-31 07:17 | XMS_ITS | Encounter Summary ---
:1990 Author Organization [facility] Address [address], [place] [address] Care Team Providers Name Role Phone Brisa Smith PA-C Primary Care Provider Encounter Details Date Type Department Care Team Description 07/11/2007 PN Conversion Only [facility] Roxanne Perera, [address] [place] [address] Social History Tobacco Use Types Packs/Day Years Used Date Smoking Tobacco: Never Assessed Sex Assigned at Date Recorded Not on file documented as of this encounter Plan of Treatment Not on filedocumented as of this encounter Procedures Procedure Name Priority Date/Time Associated Diagnosis Comme nts STREP GROUP A Routine 07/11/2007 2:42 PM Results for this ANTIGEN TEST CDT procedure are i n the results section. BETA STREP FOLLOWUP Routine 07/11/2007 2:42 PM Re sults for this CDT procedure are i n the results section. documented in this encounter Results Strep Group A Antigen Test (07/11/2007 2:42 PM CDT) Analysis Performed At Patho logist Time Signature Strep Group A Negative Negative HP CONVERSION Antigen Test Comment: Culture to follow. Specimen (Source) Anatomical Collection Method Collection Time Re ceived Time Location / / Volume Laterality 07/11/2007 2:42 PM CDT Roxanne Serrato MD LAB_1 Performing Organization Address City/State/ZIP Code Phon e Number HP CONVERSION Beta Strep Followup (07/11/2007 2:42 PM CDT) P athologist Signature Strep Screen SEE TEXT HP CONVERSION Comment: Patient: MINO POSADAS Rapid Strep Follow up Culture ? Collected: ??[id number] ??[id number] Source: Throat ?Processed: ??[id number] ??[id number] ? 1V Final Report ------ ?[id number] ??[id number] No beta hemolytic Strep group A isolated . Specimen (Source) Anatomical Collection Method Collection Time Re ceived Time Location / / Volume Laterality 07/11/2007 2:42 PM CDT Roxanne Serrato MD LAB_1 Performing Organization Address City/State/ZIP Code Phon e Number HP CONVERSION documented in this encounter Visit Diagnoses Not on filedocumented in this encounter Care Teams Ornament Maker Hand Relationship Specialty Start Date End Date Brisa Simth PA-C PCP - General 07/30/10 04/18/15 [address] [place], [place] [address] documented as of this encounter
--- OUTSIDE RECORDS SUMMARY | 2022-01-31 07:17 | XMS_ITS | Encounter Summary ---
:1990 Author Organization [facility] Address [address], [place] [address] Care Team Providers Name Role Phone Lynette Smith PA-C Primary Care Provider Reason for Visit Reason Comments Other Encounter Details Date Type Department Care Team Description 09/23/2007 Telephone [facility] Lynette Smith PA-C Other [facility] [place] [address] [place] [address] [phone] (Wo rk) Social History Tobacco Use Types Packs/Day Years Used Date Smoking Tobacco: Never Assessed Sex Assigned at Date Recorded Not on file documented as of this encounter Progress Notes Center, Message - 09/23/2007 10:58 AM CDT Phone Note filed by [employer] at 08/15/102145 Author: [employer] Service: (none) Author Type: (none) Filed: 08/15/102145 Note Time: 09/23/071057 Status: Signed Tank Pumper: [employer] Lab/Radiology Results Caller Name/Relationship:mom Primary Open Tenter Operator:manuel What test result is needed?sickle cell When and where was test done?09/06 [facility] Who ordered the test?manuel Ecommerce Marketing Manager: Best call back number:[phone] Is it OK to leave a confidential message on this voicemail?y *[id number] Created on 23Sep2007 10:58am by FARSHAD WALDRON On 23Sep2007 11:08am RIVER LEE wrote: Spoke with the lab dept and the sickle cell test was not done that day. They will contact pt to come back to have it drawn. On 24Sep2007 3:08pm LYNETTE SMITH wrote: ok, I specifically called that lab about this test and how to order it. It's too bad it was missed. Acknowledged by LYNETTE SMITH on 3:08pm ING REPAIRER documented in this encounter Plan of Treatment Not on filedocumented as of this encounter Visit Diagnoses Not on filedocumented in this encounter Care Teams Acetylene Cutter Relationship Specialty Start Date End Date Lynette Smith, PAMimaC PCP - General 07/30/10 04/18/15 [address] [place] [address] documented as of this encounter
--- OUTSIDE RECORDS SUMMARY | 2022-01-31 07:17 | XMS_ITS | Encounter Summary ---
:1990 Author Organization [facility] Address [address] [place] [address] Care Team Providers Name Role Phone Brisa Smith PA-C Primary Care Provider Encounter Details Date Type Department Care Team Description 07/26/2005 Office Visit [facility] Gabo Weiner MD Subspecialty [address] [place], [place] [address] [place] [address] [phone] Social History Tobacco Use Types Packs/Day Years Used Date Smoking Tobacco: Never Assessed Sex Assigned at Date Recorded Not on file documented as of this encounter Last Filed Vital Signs Vital Sign Reading Time Taken Comments Blood Pressure 104/60 07/26/2005 3:27 PM MATERIAL CONTROL SUPERVISOR Pulse 59 07/26/2005 3:27 PM MATERIAL CONTROL SUPERVISOR Temperature - - Respiratory Rate - - Oxygen Saturation - - Inhaled Oxygen Concentration - - Weight 66 kg (145 lb 7.7 oz) 07/26/2005 3:27 PM MATERIAL CONTROL SUPERVISOR C: 66.0kg Height 172.7 cm (5' 8) 07/26/2005 3:27 PM MATERIAL CONTROL SUPERVISOR C: 172.7 cm Body Mass Index 22.12 07/26/2005 3:27 PM MATERIAL CONTROL SUPERVISOR Body Mass Index Percentile 69.33 % 07/26/2005 3:27 PM CS T Growth Chart: [facility] (Girls, 2-20 Years) documented in this encounter Progress Notes Jarrett Weiner MD - 07/26/2005 12:01 AM CST Progress Notes signed by Jarrett Weiner MD at 08/09/05 1355 Author: Jarrett Weiner MD Service: (none) Author Type: Physician Filed: 08/17/10 1225 Note Time: 07/26/052014 Status: Signed Director [employer]: Jarrett Weiner MD (Physician) NAME: MINO POSADAS MR: [id number] ACCT: [id number] VISIT: [id number] DICTATING CLINICIAN: JARRETT WEINER MD JOB: [id number] CLINIC PROGRESS NOTE DATE OF VISIT: 07/26/2005 SUBJECTIVE: : 1990. Mino is 14 yearss old. I saw her first on 06/28 in consultation for fatigue, bitemporal headache, abdominal pain. This all began with a pneumonia in the fall of 2003. She has had an extensive evaluation. Etiology of the problem remains uncertain. OBJECTIVE: VS: BP: 104/60. P: 59. T: 171 cm. Wt: 66 kg. ASSESSMENT: Bitemporal headaches, fatigue, and abdominal pain a year and a half duration. Etiology not determined. PLAN: TT: 25. CT: 20. Mino, her mother, and I discussed at length her symptoms, her evaluation, and symptomatic treatment starting with metronidazole and continuing with Zelnorm, and followup. SCM:[id number] C: 07/30/05 15:07 DOCUMENT: [id number] documented in this encounter Plan of Treatment Not on filedocumented as of this encounter Visit Diagnoses Not on filedocumented in this encounter Care Teams Head Of Product Relationship Specialty Start Date End Date Brisa Smith PA-C PCP - General 07/30/10 04/18/15 [address] [place] [address] documented as of this encounter
--- OUTSIDE RECORDS SUMMARY | 2022-01-31 07:17 | XMS_ITS | Encounter Summary ---
:1990 Author Organization [facility] Address [address] [facility] [place] [address] Care Team Providers Name Role Phone Brisa Smith PA-C Primary Care Provider Reason for Visit Reason Comments Medication Questions Encounter Details Date Type Department Care Team Description 09/02/2011 Telephone [facility] Jasmin Whitmore Medication Questions [address] [place] [address] Social History Tobacco Use Types Packs/Day Years Used Date Smoking Tobacco: Never Assessed Sex Assigned at Date Recorded Not on file documented as of this encounter Nursing Notes Melanie Avitia RN - 09/02/2011 11:01 AM CDT Pharmacy calling. States that Jasmin Ferrara PA-C prescribed seasonale, quantity of 30 with 12 refills. Medication only comes in a quantity of 91. OK given to change Rx to seasonale, quantity of 91 with 3 refills. Will send to Jasmin Ferrara PA-C for co-sign. Barbara Jones - 09/02/2011 10:54 AM CDT Pharamcy has questions regarding medication seasonale... Pt was seen by Josias documented in this encounter Plan of Treatment Not on filedocumented as of this encounter Visit Diagnoses Not on filedocumented in this encounter Care Teams Pattern Weaver Relationship Specialty Start Date End Date Brisa Smith PA-C PCP - General 07/30/10 04/18/15 [address] [place] [address] documented as of this encounter
--- OUTSIDE RECORDS SUMMARY | 2022-01-31 07:17 | XMS_ITS | Encounter Summary ---
:1990 Author Organization [facility] Address [address], [place] [address] Care Team Providers Name Role Phone Brisa Smith PA-C Primary Care Provider Encounter Details Date Type Department Care Team Description 11/25/2006 PN Conversion Only Rahat Booth PA-C [address] [place] [address] [place] [address] (Wo rk) Social History Tobacco Use Types Packs/Day Years Used Date Smoking Tobacco: Never Assessed Sex Assigned at Date Recorded Not on file documented as of this encounter Plan of Treatment Not on filedocumented as of this encounter Procedures Procedure Name Priority Date/Time Associated Comments Diagnosis SEXUALLY TRANSMITTED Routine 11/25/2006 2:36 PM R esults for this DISEASE PROBE CDT procedure are in the results section. HEMOGLOBIN, BLOOD Routine 11/25/2006 12:12 Result s for this PM CDT procedure are i n the results section. HDL CHOLESTEROL Routine 11/25/2006 12:12 Results for this PM CDT procedure are i n the results section. CHOLESTEROL (TOTAL) Routine 11/25/2006 12:12 Resu lts for this PM CDT procedure are i n the results section. ANATOMICAL PATH Routine 11/25/2006 12:00 Results for this LIQUID BASED PM CDT procedure are i n the results section. documented in this encounter Results Sexually Transmitted Disease Probe (11/25/2006 2:36 PM CDT) [facility] Method Time Signature Sexually SEE TEXT HP CONVERSION Transmitted Disease Probe Comment: Patient: MINO POSADAS Sexually Trans Disease Probe @ ?Collected: ??[id number] ??[id number] Source: ENDOCERV ?Processed: ??[id number] ??[id number] Final Report ------ ?[id number] ??[id number] No Chlamydia trachomatis detected by amp lified DNA assay No Neisseria gonorrhoeae detected by amp lified DNA assay The ProbeFrontback Amplified DNA assay is amadou red by the FDA for non-medicolegal diagnostic testing in the adult population. @ = Sexually Trans Disease Probe Perform ed at ??[address] [place] [address] ?[place] [address] Specimen (Source) Anatomical Collection Method Collection Time Re ceived Time Location / / Volume Laterality 11/25/2006 2:36 PM CDT Rahat Mix PA-C LAB_1 Performing Organization Address City/[facility] Code Phon e Number HP CONVERSION Cholesterol (Total) (11/25/2006 12:12 PM CDT) athologist Signature Cholesterol 140 <170 mg/dL HP CONVERSION Specimen (Source) Anatomical Collection Method Collection Time Re ceived Time Location / / Volume Laterality 11/25/2006 12:12 PM CDT Rahat Mix PA-C LAB_1 Performing Organization Address City/[facility]/ZIP Code Phon e Number HP CONVERSION HDL Cholesterol (11/25/2006 12:12 PM CDT) P athologist Signature HDL Cholesterol 51 40 - 60 HP CONVERSION mg/dL Specimen (Source) Anatomical Collection Method Collection Time Re ceived Time Location / / Volume Laterality 11/25/2006 12:12 PM CDT Rahat Mix PA-C LAB_1 Performing Organization Address City/State/ZIP Code Phon e Number HP CONVERSION Hemoglobin, Blood (11/25/2006 12:12 PM CDT) athologist Signature Hemoglobin 15.0 12.0 - 16.0 HP CONVERSION gm/dL Specimen (Source) Anatomical Collection Method Collection Time Re ceived Time Location / / Volume Laterality 11/25/2006 12:12 PM CDT Rahat Mix PA-C LAB_1 Performing Organization Address [facility]/ZIP Code Phon e Number HP CONVERSION Pap Smear (11/25/2006 12:00 PM CDT) [facility] gist Method Time Signature PAP Smear SEE TEXT No normal HP CONVERSION Liquid Based range Comment: Patient: MINO POSADAS ? CERVICAL CYTOLOGY REPORT Pathology # ??[id number] ?Date Obtained: ? Date Received: CYTOLOGIC IMPRESSION: Negative for intraepithelial lesion or m alignancy. Verified 11/27/06 by: ??SN ? (electronic signature) ? [facility] TIONAL DATA LMP: CLINICAL HIST LIQUID BASED PAP CERVICAL SPECIMEN ADEQUACY: ?? Satisfactory. ENDOCERVICAL CELLS: ??Present. Specimen (Source) Anatomical Collection Method Collection Time Re ceived Time Location / / Volume Laterality 11/25/2006 12:00 PM CDT Rahat Mix PA-C LAB_1 Performing Organization Address City/State/ZIP Code Phon e Number HP CONVERSION documented in this encounter Visit Diagnoses Not on filedocumented in this encounter Care Teams Benzene Washer Relationship Specialty Start Date End Date Brisa Smith PA-C PCP - General 07/30/10 04/18/15 [address] [place], [place] [id number] documented as of this encounter
--- OUTSIDE RECORDS SUMMARY | 2022-01-31 07:17 | XMS_ITS | Encounter Summary ---
:1990 Author Organization [facility] Address [address] [place] [address] Care Team Providers Name Role Phone Brisa Smith PA-C Primary Care Provider Encounter Details Date Type Department Care Team Description 04/17/2007 Office Visit [facility] Candis Hagen PA-C [address] [address] [place] [address] [phone] (Wo rk) Social History Tobacco Use Types Packs/Day Years Used Date Smoking Tobacco: Never Assessed Sex Assigned at Date Recorded Not on file documented as of this encounter Last Filed Vital Signs Vital Sign Reading Time Taken Comments Blood Pressure 104/56 04/17/2007 8:00 AM LOGISTICS COORDINATOR Pulse - - Temperature - - Respiratory Rate - - Oxygen Saturation - - Inhaled Oxygen Concentration - - Weight 66.2 kg (145 lb 15.8 oz) 04/17/2007 8:00 AM LOGISTICS COORDINATOR C: 66.2kg Height - - Body Mass Index - - documented in this encounter Progress Notes Candis Lang PA-C - 04/17/2007 12:01 AM CST Progress Notes signed by Candis Lang PA-C at 04/24/07 1424 Author: Candis Lang PA-C Service: (none) Author Type: Physician Sweatband Flanger Filed: 08/18/10 0116 Note Time: 04/17/07 0001 Status: Signed Skiing Instructor: Candis Lang PA-C (Physician Sweatband Flanger) NAME: MINO POSADAS MR#: [id number] ACCT: [id number] VISIT: [id number] DICTATING CLINICIAN: THELMA HERNANDEZ JOB: [id number] LOC: 502 CLINIC PROGRESS NOTE DATE OF VISIT: 04/17/2007 SUBJECTIVE: Mion is a 16-year-old female who comes to the clinic today with her mom. They are concerned about insomnia. She has struggled with insomnia for greater than 1 year. She actually falls asleep okay, but often times wakes up during the night. In the past she has used trazodone and that has been helpful. Usually goes to bed between 9 and 10 and wakes up at 6, wakes up a couple of times during the night. She does not know why. She does not specifically have to go to the bathroom or anything like that. She denies using caffeine. She does not take naps during the day. PAST MEDICAL HISTORY: Reviewed and updated in the health profile in Last[employer] today. MEDICATIONS: Reviewed and updated in the health profile in Last[employer] today. ADR/ALLERGIES: REVIEWED AND UPDATED IN THE HEALTH PROFILE IN LAST[employer] TODAY. OBJECTIVE: VS: BP: 104/56. Wt: 146. CONSTITUTIONAL: Sitting comfortably, appears well. EYES: Sclerae, conjunctivae clear. Remainder of exam deferred today. ASSESSMENT: 1. Insomnia. PLAN: I spent 15 minutes with Mino and her mom discussing sleep hygiene issues. Will restart trazodone on a short-term basis and see if that helps to regulate her sleep cycle. If it is not affective, she will follow up. AMS:[id number] C: 04/20/07 15:38 DOCUMENT: [id number] STICS COORDINATOR documented in this encounter Plan of Treatment Not on filedocumented as of this encounter Visit Diagnoses Not on filedocumented in this encounter Care Teams Brand Designer Relationship Specialty Start Date End Date Brisa Smith PA-C PCP - General 07/30/10 04/18/15 [address] [place] [address] documented as of this encounter
--- OUTSIDE RECORDS SUMMARY | 2022-01-31 07:17 | XMS_ITS | Encounter Summary ---
:1990 Author Organization [facility] Address [address], [place] [address] Care Team Providers Name Role Phone Brisa Smith PA-C Primary Care Provider Encounter Details Date Type Department Care Team Description 03/11/2007 Nursing Visit Darryn Diaz MD [address] [place] [address] [place] [address] [place] [address] [phone] (Wo rk) Social History Tobacco Use Types Packs/Day Years Used Date Smoking Tobacco: Never Assessed Sex Assigned at Date Recorded Not on file documented as of this encounter Plan of Treatment Not on filedocumented as of this encounter Visit Diagnoses Not on filedocumented in this encounter Care Teams Diesel Motor Mechanic Relationship Specialty Start Date End Date Brisa Smith PA-C PCP - General 07/30/10 04/18/15 [address] [place], [place] [address] documented as of this encounter
--- OUTSIDE RECORDS SUMMARY | 2022-01-31 07:17 | XMS_ITS | Encounter Summary ---
:1990 Author Organization [facility] Address [address] [place] [address] Care Team Providers Name Role Phone Brisa Smith PA-C Primary Care Provider Encounter Details Date Type Department Care Team Description 09/02/2008 Office Visit Rocio Griffiths MB[facility] [address] [place] [address] [place] [address] [place] [address] [phone] (Wo rk) Social History Tobacco Use Types Packs/Day Years Used Date Smoking Tobacco: Never Assessed Sex Assigned at Date Recorded Not on file documented as of this encounter Last Filed Vital Signs Vital Sign Reading Time Taken Comments Blood Pressure 100/60 09/02/2008 8:59 AM CDT Pulse 60 09/02/2008 8:59 AM CDT Temperature - - Respiratory Rate - - Oxygen Saturation - - Inhaled Oxygen Concentration - - Weight 68.5 kg (150 lb 15.9 oz) 09/02/2008 8:59 AM CDT C: 68.5kg Height - - Body Mass Index 22.96 09/07/2007 1:11 PM CDT Body Mass Index Percentile 65.51 % 09/02/2008 8:59 AM CD T Growth Chart: CDC (Girls, 2-20 Years) documented in this encounter Progress Notes Rocio Bermudez MBBS - 09/02/2008 12:01 AM CDT Progress Notes signed by Rocio Bermudez MD at 09/08/08 1031 Author: AZK Giles Service: (none) Author Type: Physician Filed: 08/18/10 1454 Note Time: 09/02/08 0001 Status: Signed Guitar Repairer: ZAK Giles (Physician) SUBJECTIVE: 17-year-old patient with no significant past medical history presented to the clinic today for concerns regarding pain in the right wrist area. Four weeks ago. 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 Patient initiating try immobilizing the wrist by Ovidio wrap, but has had no significant improvement. Feels there was mild swelling, which is now better. Would like to get this evaluated. Patient reports continuous pain, which worsens with movement. Rest of the complete review of system is negative PastMedical Hx: Reviewed and updated in PHP in Last[employer] Adverse Drug Reactions: Reviewed and updated in PHP in [employer] Medications: Reviewed. See Medication List in Last[employer]. Tobacco use: None OBJECTIVE: Vital Signs : Reviewed; See Flowsheet Charting in LastWord. Rt wrist exam; no significant swelling or erythema seen. Mild tenderness in the snuffbox, as well as along the radial edge of wrist. Normal range of motion, but patient reports significant pain at the knot and radial deviation. Normal extension and flexion at the wrist joint. Normal movement in the digits. The rest of the exam deferred today. ASSESSMENT/PLAN: Right wrist pain, given significant pain in the snuffbox, a wrist x-ray was obtained, including the scaphoid bone view. No fracture seen. Most likely soft tissue injury. Will immobilize the hand and the rigid wrist support. Patient was provided with the same. May apply ice and take ibuprofen for symptomatic pain control. Follow-up with Tria is no significant change in symptoms in one week. Patient verbalized understanding with the plan. LABS AND IMAGING ORDERED: FOLLOW UP: The patient was discharged ambulatory and in stable condition. *SH~DNS~SOAP documented in this encounter Plan of Treatment Not on filedocumented as of this encounter Procedures Procedure Name Priority Date/Time Associated Diagnosis Comme nts XR HAND RT 3+ VIEWS Routine 09/02/2008 9:28 AM Re sults for this CDT procedure are i n the results section. documented in this encounter Results XR Hand Rt 3+ Views (09/02/2008 9:28 AM CDT) Anatomical Region Laterality Modality Upper Extremity, Hand Other Specimen (Source) Anatomical Location Collection Method / Collectio n Time Received Time / Laterality Volume Narrative 09/02/2008 9:28 AM CDT Findings: BN1 No radiographic evidence of bone or join t abnormality. Dictating FREDIS LALA RADIOLOGIST Procedure Note Fredis Cadena MD - 06/29/2016 Findings: BN1 No radiographic evidence of bone or join t abnormality. Dictating FREDIS LALA RADIOLOGIST Rocio HERNANDEZBS RAD GD documented in this encounter Visit Diagnoses Not on filedocumented in this encounter Care Teams Firmware Developer Relationship Specialty Start Date End Date Brisa Smith PA-C PCP - General 07/30/10 04/18/15 [address] [place] [address] documented as of this encounter
--- OUTSIDE RECORDS SUMMARY | 2022-01-31 07:17 | XMS_ITS | Encounter Summary ---
:1990 Author Organization [facility] Address [address], [place] [address] Care Team Providers Name Role Phone Brisa Smith PA-C Primary Care Provider Encounter Details Date Type Department Care Team Description 11/18/2008 PN Conversion Only [facility] [address] [place] [address] Social History Tobacco Use Types Packs/Day Years Used Date Smoking Tobacco: Never Assessed Sex Assigned at Date Recorded Not on file documented as of this encounter Plan of Treatment Not on filedocumented as of this encounter Procedures Procedure Name Priority Date/Time Associated Diagnosis Comme nts US ABD RUQ ORGANS Routine 11/18/2008 8:12 AM Resu lts for this CDT procedure are i n the results section. documented in this encounter Results US Abd RUQ Organs (11/18/2008 8:12 AM CDT) Anatomical Region Laterality Modality Abdomen Other Specimen (Source) Anatomical Location Collection Method / Collectio n Time Received Time / Laterality Volume Impressions 11/18/2008 8:12 AM CDT : ??Negative right upper quadrant ultrasound. 404896/mb Dictating JOE MENDES Radiologist Narrative 11/18/2008 8:12 AM CDT FINDINGS: ??The liver is homogeneous in its echotexture without evidence for focal masses or intrahepati c biliary dilatation. ??The gallbladder contains no stones. ??The ga llbladder wall and common bile duct measure within the normal range. The right kidney measures 9.8 cm in albina th and there is no hydronephrosis. ??The visualized portion s of the pancreas are unremarkable. Procedure Note Joe Flanagan MD - 06/29/2016Formattin g of this note might be different from the original. FINDINGS: The liver is homogeneous in it s echotexture without evidence for focal masses or intrahepati c biliary dilatation. The gallbladder contains no stones. The gall bladder wall and common bile duct measure within the normal range. The right kidney measures 9.8 cm in albina th and there is no hydronephrosis. The visualized portions of the pancreas are unremarkable. IMPRESSION : Negative right upper [place]. [id number]/[facility] Dictating JOE MENDES Radiologist Brisa Smith PA-C RAD US documented in this encounter Visit Diagnoses Not on filedocumented in this encounter Care Teams Equipment Tech Relationship Specialty Start Date End Date Brisa Smith PA-C PCP - General 07/30/10 04/18/15 [address] [place] [address] documented as of this encounter
--- OUTSIDE RECORDS SUMMARY | 2022-01-31 07:17 | XMS_ITS | Encounter Summary ---
:1990 Author Organization [facility] Address [address] [place] [address] Care Team Providers Name Role Phone Brisa Smith PA-C Primary Care Provider Encounter Details Date Type Department Care Team Description 04/19/2011 Lab Visit [facility] Acute pharyngitis [address] [place] [address] Social History Tobacco Use Types Packs/Day Years Used Date Smoking Tobacco: Never Assessed Sex Assigned at Date Recorded Not on file documented as of this encounter Plan of Treatment Not on filedocumented as of this encounter Procedures Procedure Name Priority Date/Time Associated Diagnosis Comme nts COMPLETE BLOOD Routine 04/19/2011 10:33 Acute pharyngitis Resu lts for this COUNT-W/DIFF AM BUTTERMAKER procedure are i n the results section. DIFFERENTIAL Routine 04/19/2011 10:33 Results for this AM BUTTERMAKER procedure are i n the results section. VENIPUNCTURE (THALIA) Routine 04/19/2011 Results for this procedure are i n the results section. documented in this encounter Results Differential (04/19/2011 10:33 AM BUTTERMAKER) P athologist Signature Absolute 4.5 1.8 - 8.0 HP CONVERSION Neutrophils k/cmm Absolute 1.8 1.1 - 4.0 HP CONVERSION Lymphocytes k/cmm Absolute 0.6 0.2 - 0.8 HP CONVERSION Monocytes k/cmm Absolute 0.0 0.0 - 0.5 HP CONVERSION Eosinophils k/cmm Absolute 0.0 0.0 - 0.2 HP CONVERSION Basophils k/cmm Specimen Anatomical Collection Method Collection Time Receive d Time (Source) Location / / Volume Laterality 04/19/2011 10:33 04/19/2011 AM BUTTERMAKER 10:33 AM BUTTERMAKER Narrative HP CONVERSION - 04/19/2011 10:36 AM BUTTERMAKER Performed at [facility], [address] [place] [address] Norberto Pandya MD LAB_1 Performing Organization Address [facility] Phon e Number HP CONVERSION (ABNORMAL) Hemogram/Plts/Diff (04/19/2011 10:33 AM BUTTERMAKER) [facility] gist Method Time Signature White Blood Cell 7.0 3.8 - HP CONVERSION Count 11.0 k/cmm Red Blood Cell 5.39 (H) 3.70 - HP CONVERSION Count 5.20 m/cmm Hemoglobin 15.8 (H) 11.8 - HP CONVERSION 15.5 g/dL Hematocrit 44.4 35.0 - HP CONVERSION 46.0 % Mean Corpuscular 82.4 80.0 - HP CONVERSION Volume 100.0 fL RDW 12.1 11.0 - HP CONVERSION 15.0 % Platelet Count 220 140 - 450 HP CONVERSION k/cmm Specimen Anatomical Collection Method Collection Time Receive d Time (Source) Location / / Volume Laterality 04/19/2011 10:33 04/19/2011 AM BUTTERMAKER 10:33 AM BUTTERMAKER Narrative HP CONVERSION - 04/19/2011 10:36 AM BUTTERMAKER Performed at [facility], [address] [place], [place] [id number] Norberto Pandya MD LAB_1 Performing Organization Address [facility] Phon e Number HP CONVERSION VENIPUNCTURE (THALIA) (04/19/2011) athologist Signature Venipuncture Done HP CONVERSION Specimen (Source) Anatomical Location Collection Method / Collectio n Time Received Time / Laterality Volume 04/19/2011 04/19/2011 Narrative HP CONVERSION - 04/19/2011 10:33 AM BUTTERMAKER Performed at [facility], [address] [place], [place] [address] Norberto Pandya MD LAB_1 Performing Organization Address [facility] Phon e Number HP CONVERSION documented in this encounter Visit Diagnoses Diagnosis Acute pharyngitis documented in this encounter Care Teams Mba Intern Relationship Specialty Start Date End Date Brisa Smith PA-C PCP - General 07/30/10 04/18/15 [address] [place] [address] documented as of this encounter
--- OUTSIDE RECORDS SUMMARY | 2022-01-31 07:17 | XMS_ITS | Encounter Summary ---
:1990 Author Organization [employer] Address [address] [place] [address] Care Team Providers Name Role Phone Brisa Smith PA-C Primary Care Provider Encounter Details Date Type Department Care Team Description 11/25/2006 Office Visit Rahat Mckeon PA-C [facility] [address] [place] [address] [place] [address] [place] [address] [phone] (Wo rk) Social History Tobacco Use Types Packs/Day Years Used Date Smoking Tobacco: Never Assessed Sex Assigned at Date Recorded Not on file documented as of this encounter Last Filed Vital Signs Vital Sign Reading Time Taken Comments Blood Pressure 100/70 11/25/2006 11:24 AM CDT Pulse 74 11/25/2006 11:24 AM CDT Temperature - - Respiratory Rate - - Oxygen Saturation - - Inhaled Oxygen Concentration - - Weight 65.8 kg (144 lb 15.9 oz) 11/25/2006 11:24 AM C: 65.8kg CDT Height 172.7 cm (5' 8) 11/25/2006 11:24 AM C: 172.7cm CDT Body Mass Index 22.05 11/25/2006 11:24 AM CDT Body Mass Index Percentile 62.54 % 11/25/2006 11:24 AM CDT Growth Chart: CDC (Girls, 2-20 Years) documented in this encounter Progress Notes Rahat Mix PA-C - 11/25/2006 12:01 AM CDT H&P signed by Rahat Mix PA-C at 11/25/06 1301 Author: Rahat Mix PA-C Service: (none) Author Type: Physician Release And Technical Records Clerk Filed: 08/17/10 2202 Note Time: 11/25/06 0001 Status: Signed Java Websphere Developer: Rahat Mix PA-C (Physician Release And Technical Records Clerk) Preventive Exam & Pelvic IMPRESSION: Routine preventive exam. STD screening. Right shoulder pain, suspect diaphragm irritation with exertion. SUBJECTIVE: Patient presents for a routine preventive physical and pelvic exam. Pt. voices concerns about: Right shoulder pain when she runs (every time) x many years. Describes the pain as crampy, rates it 3-4/10, does not limit her activity. Symptoms have been stable over time, not progressive. She denies associated chest pain, abdominal pain, shortness of breath, or decreased exercise tolerance. Once she stops running, the pain resolves immediately. Plays volleyball and runs track. No treatments needed or tried. Does not experience the pain at any other time. 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 has never been . Menstrual History: Date of LMP: 11/17/2006 Menstrual periods are heavy. LMP: Saw Sussy Enciso for menorrhagia 06/2005 and was given a prescription for Ortho Evra patch which she never filled. Her parents determined she did not need it. She is not interested in any other form of contraception than condoms at this time. STD History: No history of STD's. Other Medical/Surgical History: Menorrhagia Adverse Drug Reactions: Pt's Adverse Drug Reactions were reviewed today, and updated on the [facility]. Current Medications: Reviewed today and updated on Health Profile in [facility]. Family History: (First degree family members) Asthma. Social History: Employment status: Student. Marital Status: Single. 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 She will play volleyball and run track, needs sports form completed today. Habits No tobacco/alcohol/drug use Preventive Health Assessment: Calcium intake adequate. Exercise adequate. Lipid screen is needed. Practices safe sex. Uses seatbelts. Tetanus immunization is up-to-date. Review of Systems: With the exception of any items noted above, the remainder of complete ROS is negative. Online medical records were reviewed by me. OBJECTIVE: Age: 16 years. Current Weight: 145 lbs. / 65.9 kg. Current Height: 68 inches Current BMI: 22.1 Kg/meters squared Pulse: 74. Blood Pressure: 100/70. General: Patient alert, in NAD. HEENT: PERRLA. Bilateral TM's, external Kcanals, oropharynx normal. Neck: Supple, without thyromegaly or mass. Upper extremities: FROM with good strength, no lesions or deformities. CV: M RRR without murmurs, rubs or gallops. Resp: Clear to auscultation without Ncrackles, wheezes or distress. Abdomen: Soft, non-tender, without Ohepatosplenomegaly, masses, or hernias. Breasts: Nontender, without Pmasses, nipple discharge, erythema, or axillary adenopathy. Pelvic: Normal external genitalia and urethra. [place], moist vaginal and cervical mucosa, without lesions. On bimanual exam, uterus is mobile, normal size, shape & Sconsistency, with no uterine or adenexal masses appreciated. Rectal: Not Texamined. Lymphatic: No neck, supraclavicular, axillary or groin Ulymphadenopathy. Lower extremities: FROM, normal gait without edema, Vlesions, or deformity. Skin: No lesions. Neuro: CN II-XII, motor & Wsensory function all intact. Psychiatric: Alert & oriented with normal affect and insight, does not appear depressed or anxious. Shoulder: No tenderness. Full ROM. No pain with ROM. Impingement sign negative. Rotator cuff muscles tested and strength intact. Distal CMS intact. ASSESSMENT: Routine preventive exam. STD screening. Right shoulder pain, suspect diaphragm irritation with exertion. PLAN: Follow-up in 1 year Pap smear. Total cholesterol. Serum hemoglobin. STD screen for GC/Chlamydia. We will mail lab results to patient. Immunizations reviewed and updated in [facility]. Pt. is up to date. Recommended meningitis vaccine and HPV vaccine. Written information given on HPV vaccine. Breast self-exam recommended. Instructed on breast self-exam. Recommended adequate calcium intake/osteoporosis prevention. Discussed safe sex practices. Discussed & recommended seat belt (& motorcycle helmet) use. Discussed sun protection. Prevention or Hormone Therapy: Condoms. Risks, benefits, and alternatives for use were discussed. Condoms for STD prevention were discussed and recommended. *SH~PC~PEF ~[place] Note completed on: 11/25/2006 12:59 PM documented in this encounter Plan of Treatment Not on filedocumented as of this encounter Visit Diagnoses Not on filedocumented in this encounter Care Teams Fish Bin Tender Relationship Specialty Start Date End Date Brisa Smith PA-C PCP - General 07/30/10 04/18/15 [address] [place] [address] documented as of this encounter
--- OUTSIDE RECORDS SUMMARY | 2022-01-31 07:17 | XMS_ITS | Encounter Summary ---
:1990 Author Organization [facility] Address [address], [place] [address] Care Team Providers Name Role Phone Brisa Smith PA-C Primary Care Provider Encounter Details Date Type Department Care Team Description 07/16/2006 PN Conversion Only [place] JACKIE Rosas, [address] APRN, [place] [address] [address] [place] [address] (Wo rk) Social History Tobacco Use Types Packs/Day Years Used Date Smoking Tobacco: Never Assessed Sex Assigned at Date Recorded Not on file documented as of this encounter Plan of Treatment Not on filedocumented as of this encounter Procedures Procedure Name Priority Date/Time Associated Diagnosis Comme nts STREP GROUP A Routine 07/16/2006 12:43 PM Results for this ANTIGEN TEST CDT procedure are i n the results section. BETA STREP FOLLOWUP Routine 07/16/2006 12:43 PM R esults for this CDT procedure are i n the results section. documented in this encounter Results Strep Group A Antigen Test (07/16/2006 12:43 PM CDT) [facility] Time Signature Strep Group A Negative Negative HP CONVERSION Antigen Test Comment: Culture to follow. Specimen (Source) Anatomical Collection Method Collection Time Re ceived Time Location / / Volume Laterality 07/16/2006 12:43 PM CDT Lillian Rosas APRN, METAL ORGAN PIPE MAKER LAB_1 Performing Organization Address City/State/ZIP Code Phon e Number HP CONVERSION Beta Strep Followup (07/16/2006 12:43 PM CDT) P athologist Signature Strep Screen SEE TEXT HP CONVERSION Comment: Patient: MINO POSADAS Rapid Strep Follow up Culture @ ? Collected: ??[id number] ??[id number] Source: Throat ?Processed: ??[id number] ??[id number] Final Report ------ ?[id number] ??[id number] No beta hemolytic Strep group A isolated . @ = Rapid F/U Cult Performed at ??[address] [place], [place] ?[address] Specimen (Source) Anatomical Collection Method Collection Time Re ceived Time Location / / Volume Laterality 07/16/2006 12:43 PM CDT Lillian Rosas APRN, METAL ORGAN PIPE MAKER LAB_1 Performing Organization Address City/State/ZIP Code Phon e Number HP CONVERSION documented in this encounter Visit Diagnoses Not on filedocumented in this encounter Care Teams Crab Backer Relationship Specialty Start Date End Date Brisa Smith PA-C PCP - General 07/30/10 04/18/15 [address] [place], [place] [id number] documented as of this encounter
--- OUTSIDE RECORDS SUMMARY | 2022-01-31 07:17 | XMS_ITS | Encounter Summary ---
:1990 Author Organization [facility] Address [address] [place] [address] Care Team Providers Name Role Phone Brisa Smith PA-C Primary Care Provider Encounter Details Date Type Department Care Team Description [facility]/16/[facility] [address] [place], [place] [address] (Wo rk) Social History Tobacco Use Types Packs/Day Years Used Date Smoking Tobacco: Never Assessed Sex Assigned at Date Recorded Not on file documented as of this encounter Last Filed Vital Signs Vital Sign Reading Time Taken Comments Blood Pressure 108/70 11/16/2008 1:04 PM CDT Pulse 80 11/16/2008 1:04 PM CDT Temperature - - Respiratory Rate - - Oxygen Saturation - - Inhaled Oxygen Concentration - - Weight 67.1 kg (147 lb 15.9 oz) 11/16/2008 1:04 PM C: 6 7.1kg CDT Height 172.7 cm (5' 8) 11/16/2008 1:04 PM C: 172.7cm CDT Body Mass Index 22.5 11/16/2008 1:04 PM CDT documented in this encounter Progress Notes Brisa Smith PA-C - 11/16/2008 12:01 AM CDT Progress Notes signed by Brisa Smith PA-C at 11/16/08 3133 Author: Brisa Smith PA-C Service: (none) Author Type: Physician Yarrow Gatherer Filed: 08/18/10 2456 Note Time: 11/16/08 0001 Status: Signed Engineering Research Manager: Brisa Smith PA-C (Resource) Subjective: 18-year-old female presents to the clinic today for follow-up on midepigastric abdominal pain that has not improved on omeprazole. She's been having symptoms for two months. Has them almost daily. Typically the pain as a dull ache and occasionally gets a very sharp. When it is severe all she feels like she can eat as bread and water. Sometimes she has nausea but no vomiting. Denies melena hematochezia diarrhea or constipation. Pain does not radiate. She is not taking any anti-inflammatory medications. She states that stress is minimal. Patient also mentions headaches but we are very limited on time and so she will follow-up with me in two weeks and her abdominal pain will dress the headaches as well. Past medical history: Reviewed in [facility] Social history: Nonsmoker Review of Systems: Negative Adverse drug reactions: See today's [facility] health profile Current medications: See today's [facility] profile Vital signs: See today's [facility] profile Objective: Patient is very pleasant no acute distress and oriented to person place and time. TMs canals are normal. Posterior oropharynx is clear. Neck is supple without thyroid enlargement or adenopathy. Lungs are without rhonchi rales or wheezes. Heart was regular rate rhythm without murmurs gallops or rubs. Abdomen has positive bowel sounds all 4 quadrants no tenderness masses guarding or organ enlargement. Musculoskeletal nerve exams are normal. Assessment: Midepigastric abdominal pain suspect dyspepsia Plan: Recent H. pylori testing was negative. Pending labs today her CBC, ALT, AST, alk phos, amylase, and lipase. She will also be scheduled for right upper quadrant ultrasound. I will start her on Zantac 150 mg twice daily. She knows she should avoid anti-inflammatory medications. She will follow-up with me in two weeks for recheck on abdominal pain as well as to address her headaches. *SH~DNS~SOAP documented in this encounter Plan of Treatment Not on filedocumented as of this encounter Visit Diagnoses Not on filedocumented in this encounter Care Teams Supervisor Ornamental Ironworking Relationship Specialty Start Date End Date Brisa Smith PA-C PCP - General 07/30/10 04/18/15 [address] [place] [address] documented as of this encounter
--- OUTSIDE RECORDS SUMMARY | 2022-01-31 07:17 | XMS_ITS | Encounter Summary ---
:1990 Author Organization [facility] Address [address], [place] [address] Care Team Providers Name Role Phone Brisa Smith PA-C Primary Care Provider Reason for Visit Reason Comments INJURY, SHOULDER Encounter Details Date Type Department Care Team Description 06/12/2011 Telephone [facility] Brisa Smith PA-C INJURY, SHOULDER [address] [place] [address] [place] [phone] [place], [place] [address] (Wo rk) Social History Tobacco Use Types Packs/Day Years Used Date Smoking Tobacco: Never Assessed Sex Assigned at Date Recorded Not on file documented as of this encounter Nursing Notes Kimberley Jacome LPN - 06/12/2011 10:03 AM CST Pt calling. She played in a volleyball tournament on Friday and began with R shoulder pain. It has worsened. She did play some volleyball again last night. She has some decreased ROM, the pain is worstwhen she does try to raise or reach her arm. She will come in on Friday for appt, as she is in [place] at school, but will also check with her parents on if their insurance covers somewhere down there in case pain worsens. She will ice and us ibuprofen until then. Sully Sanabria - 06/12/2011 9:49 AM CST Non -Symptom Message from Front Line Primary Care Provider: Brisa Smith PA-C Message: Pt would like advice from a Nurse regarding her shoulder pain ET WORKER documented in this encounter Plan of Treatment Not on filedocumented as of this encounter Visit Diagnoses Not on filedocumented in this encounter Care Teams Product Support Analyst Relationship Specialty Start Date End Date Brisa Smith PA-C PCP - General 07/30/10 04/18/15 [address] [place] [address] documented as of this encounter
--- OUTSIDE RECORDS SUMMARY | 2022-01-31 07:17 | XMS_ITS | Encounter Summary ---
:1990 Author Organization [facility] Address [address], [place] [address] Care Team Providers Name Role Phone Brisa Smith PA-C Primary Care Provider Encounter Details Date Type Department Care Team Description 11/16/2008 PN Conversion Only [place] CONVERSION Brisa Smith, [address] [place] [address] [place], [place] [address] (Wo rk) Social History Tobacco Use Types Packs/Day Years Used Date Smoking Tobacco: Never Assessed Sex Assigned at Date Recorded Not on file documented as of this encounter Plan of Treatment Not on filedocumented as of this encounter Procedures Procedure Name Priority Date/Time Associated Diagnosis Comme nts COMPLETE BLOOD Routine 11/16/2008 1:37 PM Results for this COUNT-W/DIFF CDT procedure are i n the results section. AMYLASE Routine 11/16/2008 1:37 PM Results f or this CDT procedure are i n the results section. LIPASE Routine 11/16/2008 1:37 PM Results f or this CDT procedure are i n the results section. ALT (SGPT) Routine 11/16/2008 1:37 PM Results f or this CDT procedure are i n the results section. AST Routine 11/16/2008 1:37 PM Results f or this CDT procedure are i n the results section. BILIRUBIN, TOTAL Routine 11/16/2008 1:37 PM Resul ts for this CDT procedure are i n the results section. BILI - DIRECT Routine 11/16/2008 1:37 PM Results for this CDT procedure are i n the results section. ALKALINE Routine 11/16/2008 1:37 PM Results f or this PHOSPHATASE, TOTAL CDT procedure are in the results section. documented in this encounter Results Complete Blood Count-W/Diff (11/16/2008 1:37 PM CDT) Patholo gist Method Time Signature White Blood Cell 4.8 3.8 - 11.0 HP CONVERSIO N Count K/cmm Red Blood Cell 4.46 3.70 - HP CONVERSION Count 5.20 m/cmm Hemoglobin 13.4 11.8 - HP CONVERSION 15.5 gm/dL Hematocrit 39.7 35.0 - HP CONVERSION 46.0 % Mean Corpuscular 88.9 80.0 - HP CONVERSION Volume 100.0 fl Mean Corpuscular 30.1 27.0 - HP CONVERSION Hemoglobin 34.0 pg Mean Corpuscular 33.9 32.0 - HP CONVERSION Hemoglobin Conc 36.5 gm/dL [place] RDW 11.8 11.0 - HP CONVERSION 15.0 % Platelet Count 215 140 - 450 HP CONVERSION k/cmm Differential Auto-Dif No normal HP CONVERSION Verify range Neutrophils 2.7 2.0 - 7.5 HP CONVERSION Absolute Count K/cmm Neutrophil 57.2 50.0 - HP CONVERSION 75.0 % Lymphocyte % 35.7 20.0 - HP CONVERSION 40.0 % Monocyte 5.3 5.0 - 14.0 HP CONVERSION % Eosinophil 1.2 0.0 - 6.0 HP CONVERSION % Basophil % 0.6 0.0 - 2.0 HP CONVERSION % Specimen (Source) Anatomical Collection Method Collection Time Re ceived Time Location / / Volume Laterality 11/16/2008 1:37 PM CDT Brisa Smith PA-C LAB_1 Performing Organization Address City/State/ZIP Code Phon e Number HP CONVERSION Alkaline Phosphatase, Total (11/16/2008 1:37 PM CDT) P athologist Signature Alk Phos 53 30 - 250 U/L HP CONVERSION Specimen (Source) Anatomical Collection Method Collection Time Re ceived Time Location / / Volume Laterality 11/16/2008 1:37 PM CDT Brisa Smith PA-C LAB_1 Performing Organization Address City/State/ZIP Code Phon e Number HP CONVERSION ALT (SGPT) (11/16/2008 1:37 PM CDT) [facility] gist Method Time Signature Alanine 14 4 - 55 HP CONVERSION Aminotransferase U/L Specimen (Source) Anatomical Collection Method Collection Time Re ceived Time Location / / Volume Laterality 11/16/2008 1:37 PM CDT Brisa Smith [facility] LAB_1 Performing Organization Address [facility] Phon e Number HP CONVERSION Amylase (11/16/2008 1:37 PM CDT) athologist Signature Amylase Serum 53 25 - 115 HP CONVERSION U/L Specimen (Source) Anatomical Collection Method Collection Time Re ceived Time Location / / Volume Laterality 11/16/2008 1:37 PM CDT Brisa Smith [facility] LAB_1 Performing Organization Address [facility] Phon e Number HP CONVERSION AST (11/16/2008 1:37 PM CDT) [facility] gist Method Time Signature Aspartate 19 0 - 45 HP CONVERSION Aminotransferase U/L Specimen (Source) Anatomical Collection Method Collection Time Re ceived Time Location / / Volume Laterality 11/16/2008 1:37 PM CDT Brisa Smith [facility] LAB_1 Performing Organization Address [facility] Phon e Number HP CONVERSION Bilirubin, Direct (11/16/2008 1:37 PM CDT) athologist Signature Bilirubin, 0.1 0.0 - 0.4 HP CONVERSION Direct mg/dL Specimen (Source) Anatomical Collection Method Collection Time Re ceived Time Location / / Volume Laterality 11/16/2008 1:37 PM CDT Brisa Smith [facility] LAB_1 Performing Organization Address [facility] Phon e Number HP CONVERSION Bilirubin, Total (11/16/2008 1:37 PM CDT) athologist Signature Bilirubin Total 0.3 0.2 - 1.2 HP CONVERSION mg/dL Specimen (Source) Anatomical Collection Method Collection Time Re ceived Time Location / / Volume Laterality 11/16/2008 1:37 PM CDT Brisa Smith LUIS LAB_1 Performing Organization Address City/[facility]/ZIP Code Phon e Number HP CONVERSION Lipase (11/16/2008 1:37 PM CDT) P athologist Signature Lipase 55 5 - 70 U/L HP CONVERSION Specimen (Source) Anatomical Collection Method Collection Time Re ceived Time Location / / Volume Laterality 11/16/2008 1:37 PM CDT Brisa Smith PA-C LAB_1 Performing Organization Address [facility] Phon e Number HP CONVERSION documented in this encounter Visit Diagnoses Not on filedocumented in this encounter Care Teams Tail Puller Relationship Specialty Start Date End Date Brisa Smith PA-C PCP - General 07/30/10 04/18/15 [address] [place] [address] documented as of this encounter
--- OUTSIDE RECORDS SUMMARY | 2022-01-31 07:17 | XMS_ITS | Encounter Summary ---
:1990 Author Organization [facility] Address [address] [place] [address] Care Team Providers Name Role Phone Brisa Smith PA-C Primary Care Provider Reason for Visit Reason Comments Annual Exam Encounter Details Date Type Department Care Team Description 09/08/2012 Office Visit [employer] [employer] Jasmin Crystal Routine physical examination (Primary Dx); [facility] Screening for malignant neop lasm of the cervix; [id number] Screening for STDs (sexually transmitted diseases); [place], [place] Contraceptive management; [id number] Screen for STD (sexually tra nsmitted disease); [phone] Bacterial vagin itis; Vaginal yeast i nfection Social History Tobacco Use Types Packs/Day Years Used Date Smoking Tobacco: Never Assessed Sex Assigned at Date Recorded Not on file documented as of this encounter Last Filed Vital Signs Vital Sign Reading Time Taken Comments Blood Pressure 100/60 09/08/2012 10:39 AM CDT Pulse 80 09/08/2012 10:39 AM CDT Temperature 36.8 ??C (98.2 ??F) 09/08/2012 10:39 AM CDT Respiratory Rate 16 09/08/2012 10:39 AM CDT Oxygen Saturation 98% 09/08/2012 10:39 AM CDT Inhaled Oxygen Concentration - - Weight 72.8 kg (160 lb 8 oz) 09/08/2012 10:39 AM CDT Height 172.7 cm (5' 8) 09/08/2012 10:39 AM CDT Body Mass Index 24.4 09/08/2012 10:39 AM CDT documented in this encounter Progress Notes Jasmin Crystal - 09/15/2012 10:43 AM CDT Quick Note: Please call patient pap smear normal, STD screen for gonorrhea/chlamydia negative Jasmin Crystal - 09/08/2012 11:41 AM CDT Addended by: JASMIN CRYSTAL on: 09/08/2012 11:41 AM Modules accepted: Orders Jasmin Crystal - 09/08/2012 11:40 AM CDT Quick Note: I called patient wet prep was positive for yeast and bacterial vaginitis (informed not an STD),discussed etiology and treatment. Rx will need Diflucan 150mg tablet x 1 and metrogel vaginal inserts BIDx 5 days, advised to avoid intercourse until treatment finished. Patient agrees with the plan, all qu estions answered. Jasmin Crystal - 09/08/2012 11:09 AM CDT Preventive Exam SUBJECTIVE: 22 y.o. y/o female para 0 patient presents for a routine preventive physical exam. Request pap and STD screening. She declines any lab work. Contraceptive management Taking OCP for menorrhagia and recently for contraceptive management, she denies side effects, reports working well. Review of Systems - History obtained from the patient General ROS: negative for - fatigue, fever, night sweats, sleep disturbance or weight gain Psychological ROS: negative for - anxiety or depression Ophthalmic ROS: negative ENT ROS: negative Allergy and Immunology ROS: negative Hematological and Lymphatic ROS: negative Endocrine ROS: negative Breast ROS: negative for breast lumps Respiratory ROS: no cough, shortness of breath, or wheezing Cardiovascular ROS: no chest pain or dyspnea on exertion Gastrointestinal ROS: no abdominal pain, change in bowel habits, or black or bloody stools Genito-Urinary ROS: no dysuria, trouble voiding, or hematuria Musculoskeletal ROS: negative Neurological ROS: negative Dermatological ROS: negative Rn Renal History: : LMP: Patient's last menstrual period was 06/16/2012. Pap hx: denies abnormal pap, last pap 2011 Sexual History: History Sexual Activity ??? Sexually Active: Yes -- Male partner(s) chris Mackay STD Hx: none oral contraceptives (estrogen/progesterone) Past Medical History Diagnosis Date ??? Varicella Past Surgical History Procedure Laterality Date ??? Tonsillectomy Family History Problem Relation Age of Onset ??? Depression Mother ??? Depression Father ??? Depression Brother History Social History ??? Marital Status: Single Spouse Name: N/A Number of Children: N/A ??? 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 Smoking status: Never Smoker ??? Smokeless tobacco: Not on file ??? Alcohol Use: 1.7 oz/week 2 Cans of beer, 1 Drinks containing 0.5 oz of alcohol per week ??? Drug Use: No ??? Sexually Active: Yes -- Male partner(s) Thompson, generic Other Topics Concern ??? City Water No ??? Exercise Yes ??? Seat Belt Yes ??? Special Diet No ??? Weight Concern No Social History Narrative Recently graduated from [employer] in civil engineering. 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 She is currently dating. Immunizations: Immunization History Administered Date(s) Administered ??? [...] Adverse drug reactions: Allergies Allergen Reactions ??? Penicillins LW Reaction: Rash, Generalized ??? Sulfa (Sulfonamide Antibiotics) LW Reaction: Rash, Generalized Current Medications: Outpatient Encounter Prescriptions as of 09/08/2012 Medication Sig Dispense Refill ??? levonorgestrel-ethinyl estradiol (SEASONALE) 0.15-30 mg-mcg per tablet Take 1 tablet by mouth daily (every 24 hours). Follow package directions. 91 tablet 2 No facility-administered encounter medications on file as of 09/08/2012. Review of Systems: With the exception of any items noted above, the remainder of complete ROS is negative. OBJECTIVE: BP 100/60 Pulse 80 Temp(Src) 98.2 ??F (36.8 ??C) Resp 16 Ht 5' 8 (1.727 m) Wt 160 lb 8 oz(72.802 kg) BMI 24.41 kg/m2 SpO2 98% LMP 06/16/2012 General: Patient alert, well-groomed, pleasant, in NAD. HEENT: PERRLA. Bilateral TM's, external canals, oropharynx normal. Neck: Supple, without thyromegaly or mass. Upper extremities: FROM with good strength, no lesions or deformities. CV: RRR without murmurs, rubs or gallops. Resp: Clear to auscultation without crackles, wheezes or distress. Abdomen: Soft, non-tender, without hepatosplenomegaly, masses, or hernias. Breasts: Symmetric, no dimpling, nipples everted, no discharge. Nontender, without masses, erythema, or axillary adenopathy. Pelvic: Normal external genitalia and urethra. Silt, moist vaginal and cervical mucosa, without lesions. moderate white discharge in vaginal canal. Cervix nontender no lesions. Bimanual reveals uterus to be mobile, normal size, shape and consistency, nontender,no masses. Adnexa no masses or tenderness. Lymphatic: No neck, supraclavicular, axillary or groin lymphadenopathy. Lower extremities: FROM, normal gait without edema, lesions, or deformity. Skin: warm and dry, no lesions. Neuro: CN II-XII, motor & sensory function grossly intact, patellar DTR 2+. Psychiatric: Alert & oriented with normal affect and insight, does not appear depressed or anxious. Assessment and plan: Hellen was seen today for annual exam. Diagnoses and associated orders for this visit: Routine physical examination Patient declines lab work Screening for malignant neoplasm of the cervix - Pap Smear Screening Screening for STDs (sexually transmitted diseases) - Wet Prep - Sexually Transmitted Disease Probe SWAB (incl. GC and Chlamydia) Contraceptive management - Refilled levonorgestrel-ethinyl estradiol (SEASONALE) 0.15-30 mg-mcg per tablet; Take 1 tablet by mouth daily (every 24 hours). year supply. Follow package directions. Side effect profile reviewed. Does not protect against STDs. Discussed warning signs, including eye pain, abdominal pain, leg pain, and SOB. medications refilled: Orders Placed This Encounter Medications ??? DISCONTD: levonorgestrel-ethinyl estradiol (SEASONALE) 0.15-30 mg-mcg per tablet Sig: Take 1 tablet by mouth daily (every 24 hours). Follow package directions. Dispense: 91 tablet Refill: 0 ??? levonorgestrel-ethinyl estradiol (SEASONALE) 0.15-30 mg-mcg per tablet Sig: Take 1 tablet by mouth daily (every 24 hours). Follow package directions. Dispense: 91 tablet Refill: 2 Last tetanus: Tdap 2007 Patient Counseling: --Nutrition: Stressed importance of moderation in sodium/caffeine intake, saturated fat and cholesterol, caloric balance, sufficient intake of fresh fruits, vegetables, fiber, calcium, iron, and vitamin D. --breast self exam, use and side effects of OCPs and adequate intake of calcium and vitamin D --Sunscreen use and skin protection. --Discussed the issue of estrogen replacement, calcium supplement, and the risks to benefit of dailyuse of baby aspirin. --Exercise: Stressed the importance of regular exercise. --Substance Abuse: Discussed cessation/primary prevention of tobacco, alcohol, or other drug use; driving or other dangerous activities under the influence; availability of treatment for abuse. --Sexuality: Discussed sexually transmitted diseases, partner selection, use of condoms, avoidance of unintended and contraceptive alternatives. --Injury prevention: Discussed safety belts, safety helmets, smoke detector, smoking near bedding orupholstery. --Dental health: Discussed importance of regular tooth brushing, flossing, and dental visits. --Immunizations reviewed. --For more information on preventative health go to www.healthfinder.gov. Follow-up 1 year for annual physical exam. Will call with abnormal lab results, otherwise will send a letter. All questions answered, Patient in agreement with the plan. RTC with future concerns. documented in this encounter Miscellaneous Notes Miscellaneous - 08/16/2016 1:02 AM CDTNotes Recorded by Jasmin Crystal PA-C on 09/15/2012 at 10:43 AMPlease call patient pap smear normal, STD screen for gonorrhea/chlamydia negative Miscellaneous - 06/07/2016 7:24 AM CSTNotes Recorded by Jasmin Crystal PA-C on 09/15/2012 at 10:43 AMPlease call patient pap smear normal, STD screen for gonorrhea/chlamydia negative------Notes Recorded by Jasmin Crystal PA-C on 09/08/2012 at 11:40 AMI called patient wet prep was positive for yeast and bacterial vaginitis (informed not an STD),discussed etiology and treatment. Rx will need Diflucan 150mg tablet x 1 and metrogel vaginal inserts BID x 5 days, advised to avoid intercourse until treatment finished. Patient agrees with the plan, all questions answered. INSPECTOR Miscellaneous - 06/07/2016 7:11 AM CSTNotes Recorded by Jasmin Crystal PA-C on 09/15/2012 at 10:43 AMPlease call patient pap smear normal, STD screen for gonorrhea/chlamydia negative INSPECTOR Assessment & Plan Note - Jasmin Crystal - 09/08/2012 11:05 AM CDT Taking OCP for menorrhagia and recently for contraceptive management, she denies side effects, reports working well. documented in this encounter Plan of Treatment Not on filedocumented as of this encounter Procedures Procedure Name Priority Date/Time Associated Diagnosis Comme nts WET PREP Routine 09/08/2012 11:12 Screen for STD Results f or this AM CDT (sexually procedure are i n transmitted disease) the res ults section. ANATOMICAL PATH Routine 09/08/2012 10:53 Results for this LIQUID BASED AM CDT procedure are i n the results section. PAP SMEAR SCREENING Routine 09/08/2012 10:53 Screening for Res ults for this AM CDT malignant neoplasm procedure are in of the cervix the results section. SEXUALLY TRANSMITTED Routine 09/08/2012 10:[address] Ds Results for this DISEASE PROBE AM CDT (sexually procedure are in transmitted the results diseases) section. documented in this encounter Results (ABNORMAL) WET PREP (09/08/2012 11:12 AM CDT) [employer] Method Time Signature WETPR White Moderate HP CONVERSION Blood Cells WETPR Moderate HP CONVERSION Epithelial Cells WETPR Yeast Few (A) HP CONVERSION WETPR None Seen HP CONVERSION Trichomonas WETPR Clue Rare HP CONVERSION Cells Wet Prep Source Cervix/Vagin HP CONVERSI ON al: Specimen Anatomical Collection Method Collection Time Receive d Time (Source) Location / / Volume Laterality 09/08/2012 11:12 09/08/2012 AM CDT 11:23 AM CDT Narrative HP CONVERSION - 09/08/2012 11:31 AM CDT Performed at [facility], [id number] [place] [id number] Transcriptions 06/07/2016 7:24 AM CSTNotes Recorded by Jasmin Crystal PA-C on 09/15/2012 at 10:43 AMPlease call patient pap smear normal, STD screen for gonorrhea/chlamydia negative------Notes Recorded by Jasmin Crystal PA-C on 09/08/2012 at 11:40 AM I called patient wet prep was positive f or yeast and bacterial vaginitis (informed not an STD),discussed etiology and treatment. Rx will need Diflucan 150mg tablet x 1 and metrogel vaginal inserts BID x 5 days, advised to avoid intercourse un til treatment finished. Patient agrees with the plan, all questions answered. Jasmin Crystal LAB_1 Performing Organization Address City/State/ZIP Code Phon e Number HP CONVERSION SEXUALLY TRANSMITTED DISEASE PROBE (09/08/2012 10:53 AM CDT) Component Value Ref Test Analysis Performed At [facility] [employer] Range Method Time Signature Source Endocervical for HP CONVERSION molecular testing Site HP CONVERSION Chlamydia Chlamydia HP CONVERSION Trach DNA trachomatis NEGATIVE by DNA amplification GC DNA Neisseria HP CONVERSION gonorrhea NEGATIVE by DNA amplification. Specimen (Source) Anatomical Collection Method Collection Time Re ceived Time Location / / Volume Laterality Endocervical for 09/08/2012 10:53 molecular testing: AM CDT Transcriptions 08/16/2016 1:02 AM CDTNotes Recorded by Jasmin Crystal PA-C on 09/15/2012 at 10:43 AMPlease call patient pap smear normal, STD screen for gonorrhea/chlamydia negative Jasmin Crystal LAB_1 Performing Organization Address City/State/ZIP Code Phon e Number HP CONVERSION Pap Smear (09/08/2012 10:53 AM CDT) Specimen (Source) Anatomical Collection Method Collection Time Re ceived Time Location / / Volume Laterality 09/08/2012 10:53 AM CDT Narrative HP CONVERSION - 09/14/2012 5:08 PM CDT FINAL GYNECOLOGICAL CYTOLOGY REPORT Pathology #: [id number] ?Date Obtained: 09/08/2012 ? Date Received: 09/09/2012 INTERPRETATION/RESULTS: Negative for Intraepithelial Lesion or M alignancy Fungal organisms morphologically consist ent with [place] species. SPECIMEN ADEQUACY: Satisfactory for Evaluation. ??Endocervi yonatan cells/transformation zone component present. Verified on 09/14/2012 ??by MINIE BACCAM , CT(ASCP) (electronic signature) CLINICAL NOTES: ?LMP: 06/16/12 LIQUID BASED PAP SMEAR SPECIMEN TYPE: ?CERVICAL [...] s may occur. ? End of Report Transcriptions 06/07/2016 7:11 AM CSTNotes Recorded by Jasmin Crystal PA-C on 09/15/2012 at 10:43 AMPlease call patient pap smear normal, STD screen for gonorrhea/chlamydia negative Jasmin Crystal LAB_1 Performing Organization Address City/State/ZIP Code Phon e Number HP CONVERSION Pap Smear Screening (09/08/2012 10:53 AM CDT) P athologist Signature PAP Routine Collected HP CONVERSION Specimen Anatomical Collection Method Collection Time Receive d Time (Source) Location / / Volume Laterality 09/08/2012 10:53 09/09/2012 8:02 AM CDT AM CDT Jasmin Crystal LAB_1 Performing Organization Address City/State/ZIP Code Phon e Number HP CONVERSION documented in this encounter Visit Diagnoses Diagnosis Routine physical examination - Primary Routine general medical examination at a health care facility Screening for malignant neoplasm of the cervix Screening for STDs (sexually transmitted diseases) Screening examination for venereal disea se Contraceptive management Unspecified contraceptive management Screen for STD (sexually transmitted dis ease) Screening examination for venereal disea se Bacterial vaginitis Vaginitis and vulvovaginitis, unspecifie d Vaginal yeast infection Candidiasis of vulva and vagina documented in this encounter Care Teams Dock Loader Relationship Specialty Start Date End Date Brisa Smith PA-C PCP - General 07/30/10 04/18/15 [address] [place] [address] documented as of this encounter
--- OUTSIDE RECORDS SUMMARY | 2022-01-31 07:17 | XMS_ITS | Encounter Summary ---
:1990 Author Organization [facility] Address [address] [address] Care Team Providers Name Role Phone Found, No Pcp MD Primary Care Provider Unavailable Reason for Visit Reason Comments PAIN, MOUTH Encounter Details Date Type Department Care Team Description 11/13/2018 Hospital Encounter [facility] Eber Reyes, Dental infection Care [place] [address] [facility] [address] [place] [address] [facility] [phone] [place], [place] [id number] Social History Tobacco Use Types Packs/Day Years Used Date Smoking Tobacco: Never Alcohol Use Standard Drinks/Week Comments Yes 2.8 (1 standard drink = 0.6 oz pure alco hol) Sex Assigned at Date Recorded Not on file documented as of this encounter Last Filed Vital Signs Vital Sign Reading Time Taken Comments Blood Pressure 112/69 11/13/2018 8:06 AM CDT Pulse 62 11/13/2018 8:06 AM CDT Temperature 36.8 ??C (98.2 ??F) 11/13/2018 8:06 AM CDT Respiratory Rate 20 11/13/2018 8:06 AM CDT Oxygen Saturation 98% 11/13/2018 8:06 AM CDT Inhaled Oxygen Concentration - - Weight - - Height - - Body Mass Index - - documented in this encounter Discharge Instructions Discharge InstructionsEber Reyes PA-C - 11/13/2018 9:02 AM CDT Images from the original note were not included. Ibuprofen 800 mg every 8 hours, take with some drink or food. Tylenol 1000 mg every 6 hours. Stronger pain medicine as prescibed. Lots of water with this medication. No driving, avoid alcohol. Follow up dentist in 7-10 days. If worsening pain, swelling, fever, come back for reevaluation Abscessed Tooth: Care Instructions Your Care Instructions An abscessed tooth is a tooth that has a pocket of pus in the tissues around it. Pus forms when the body tries to fight an infection caused by bacteria. If the pus cannot drain, it forms an abscess. Anabscessed tooth can cause red, swollen gums and throbbing pain, especially when you chew. You may have a bad taste in your mouth and a fever, and your jaw may swell. Damage to the tooth, untreated tooth decay, or gum disease can cause an abscessed tooth. An abscessed tooth needs to be treated by a dental professional right away. If it is not treated, the infection could spread to other parts of your body. Your dentist will give you antibiotics to stop the infection. He or she may make a hole in the tooth or cut open (chhaya) the abscess inside your mouth so that the infection can drain, which should relieve your pain. You may need to have a root canaltreatment, which tries to save your tooth by taking out the infected pulp and replacing it with a healing medicine and/or a filling. If these treatments do not work, your tooth may have to be removed. Follow-up care is a palomares part of your treatment and safety. Be sure to make and go to all appointments, and call your doctor if you are having problems. It's also a good idea to know your test results and keep a list of the medicines you take. How can you care for yourself at home? ?? Reduce pain and swelling in your face and jaw by putting ice or a cold pack on the outside of your cheek for 10 to 20 minutes at a time. Put a thin cloth between the ice and your skin. ?? Take pain medicines exactly as directed. ? If the doctor gave you a prescription medicine for pain, take it as prescribed. ? If you are not taking a prescription pain medicine, ask your doctor if you can take an eqga-hsi-xqqhggm medicine. ?? Take your antibiotics as directed. Do not stop taking them just because you feel better. You needto take the full course of antibiotics. To prevent tooth abscess ?? [place] and floss every day, and have regular dental checkups. ?? Eat a healthy diet, and avoid sugary foods and drinks. ?? Do not smoke, use e-cigarettes with nicotine, or use spit tobacco. Tobacco and nicotine slow yourability to heal. Tobacco also increases your risk for gum disease and cancer of the mouth and throat. If you need help quitting, talk to your doctor about stop-smoking programs and medicines. These canincrease your chances of quitting for good. When should you call for help? Call 911 anytime you think you may need emergency care. For example, call if: ? You have trouble breathing. ?? Call your doctor now or seek immediate medical care if: ? You have new or worse symptoms of infection, such as: ? Increased pain, swelling, warmth, or redness. ? Red streaks leading from the area. ? Pus draining from the area. ? A fever. ?? Watch closely for changes in your health, and be sure to contact your doctor if: ? You do not get better as expected. Where can you learn more? 1. Go to https://[employer]/Icanbesponsoredlibrary or [employer]/CORD:USE Cord Blood Bankrary. 2. Enter L466 in the search box. Current as of: January 28, 2018 Content Version: 12.0 ?? [id number] [employer]. Care instructions adapted under license by your healthcare professional. If you have questions about a medical condition or this instruction, always ask your healthcare professional. [employer] disclaims any warranty or liability for your use of this information. documented in this encounter Medications at Time of Discharge Medication Sig Dispensed Refills Start Date End Date clindamycin (CLEOCIN) Take 1 Capsule by 30 Capsule 0 019 11/23/2018 300 MG capsule mouth three times a day for 10 days. citalopram (AKA CELEXA) Take 1 tablet by 30 tablet 2 201103/18/2019 10 MG mouth daily (every 24 tabletIndications: hours). Depression, major, recurrent (HRC) levonorgest-eth estrad Take 1 tablet by 91 tablet 2 013 03/18/2019 91-Day (AKA SEASONALE) mouth daily (every 24 0.15-0.03 MG hours). Follow tabletIndications: package directions. Contraceptive management levonorgestrel (MIRENA) 1 Each by 0 0 01/20/2020 20 MCG/24HR IUD Intrauterine route once. oxyCODONE-acetaminophen Take 1 Tablet by 6 Tablet 0 201803/18/2019 (PERCOCET) 5-325 MG mouth every 6 hours tablet as needed for Pain. documented as of this encounter ED Notes Eber Reyes PA-C - 11/13/2018 9:14 AM CDT SUBJECTIVE: Hellen Sigala is a 28 y.o. female who presents to the Urgent care with dental and jaw pain that started four days ago. Patient states her pain is located at the left lower back molar. Pain is described as dull and achy. Pain is worsening since onset and now radiates to left ear and down lateral region of neck. Rates severity of pain 6/10. Patient regularly sees the dentist and [place]. Patient admits to mild facial swelling at left lower jaw. She has tried icing and Ibuprofen with minimal relief of symptoms. Patient denies fever, chills, nausea, vomiting, foul taste in mouth, difficulty breathing, difficulty swallowing. No trismus.No headache. No other complaints. No significant underlying medical conditions. Adverse Drug Reactions: Reviewed in [facility] Penicillins and Sulfa antibiotics Medications: Reviewed in [facility] No current facility-administered medications for this encounter. Current Outpatient Medications Medication Sig Dispense Refill ??? citalopram (AKA CELEXA) 10 MG tablet Take 1 tablet by mouth daily (every 24 hours). 30 tablet 2 ??? clindamycin (CLEOCIN) 300 MG capsule Take 1 Capsule by mouth three times a day for 10 days. 30 Capsule 0 ??? levonorgest-eth estrad 91-Day (AKA SEASONALE) 0.15-0.03 MG tablet Take 1 tablet by mouth daily (every 24 hours). Follow package directions. 91 tablet 2 ??? levonorgestrel (MIRENA) 20 MCG/24HR IUD 1 Each by Intrauterine route once. ??? oxyCODONE-acetaminophen (PERCOCET) 5-325 MG tablet Take 1 Tablet by mouth every 6 hours as needed for Pain. 6 Tablet 0 Past Medical History: Reviewed in [facility] Past Medical History: Diagnosis Date ??? Varicella OBJECTIVE: Vital Signs: Reviewed in [facility] Filed Vitals: 11/13/18 0806 BP: 112/69 Pulse: 62 Resp: 20 Temp: 36.8 ??C (98.2 ??F) TempSrc: Oral SpO2: 98% General: AOx3, NAD, not ill appearing, afebrile. Neck: No obvious LA, no rigidity, no tenderness to palpation. ENT/Oral: Bilateral TMs and EACs normal appearing, no erythema, no drainage. Nasal exam unremarkable. Posterior pharynx normal, no tonsillitis, uvula midline. Dental exam normal. No visible or palpableabscess. Moderate gingival erythema and swelling appreciated on left lower back molar; TTP when palpated Mild facial edema on left lower jaw. No trismus. Lymph: No submandibular or cervical chain mender LA. Cardiac: rrr. ASSESSMENT: 1. Dental infection PLAN: Medications - No data to display Discharge Medication List as of 11/13/2018 9:04 AM START taking these medications Details clindamycin (CLEOCIN) 300 MG capsule Take 1 Capsule by mouth three times a day for 10 days., Disp-30Capsule, R-0, TID Starting Fri11/13/2018, Until Fri11/23/2018, For 10 days, Oral, Normal oxyCODONE-acetaminophen (PERCOCET) 5-325 MG tablet Take 1 Tablet by mouth every 6 hours as needed for Pain., Disp-6 Tablet, R-0, Q6H PRN Starting Fri11/13/2018, Oral, Print Clinically appears well. Vitals wnl. With patient's gingival erythema and edema appreciate on lower left posterior molar, patient is likely experiencing a gingival or dental abscess. Prescribed clindamycin for abscess. Patient was also prescribed 6 tablets of percocet for pain. Patient given referral to dentist to reevaluate her symptomsafter course of antibiotics are completed. Patient advised to continuing icing area to help minimizethe facial swelling. Discussed symptomatic care. Use tylenol/NSAIDs for fever or pain. Rest at home as needed until symptoms are improving. To ER if severe or symptoms or new, worsening symptoms. Patient agreed and understood plan. The patient was discharged in stable condition. GRACY Henderson I personally scribed and performed the exam under the supervision of Yoni Reyes PA-C I agree with the above. I did personally see the patient and evaluate the patient, discussed the patient with the student and discussed workup options/treatment options/and ultimate disposition. documented in this encounter Plan of Treatment Not on filedocumented as of this encounter Visit Diagnoses Diagnosis Dental infection Acute apical periodontitis of pulpal shila gin Triage Assessment Note - Deepa Bansal LPN - 11/13/2018 8:04 AM CDT Pt here with mouth pain. Started 4-5 days ago. Started as left upper gum swelling and has not progressed to her throat and ear. Pain is getting worse. documented in this encounter Care Teams Circuit Tester Relationship Specialty Start Date End Date Found, No Pcp, PCP - General 05/02/15 [address] [place] [address] documented as of this encounter
--- OUTSIDE RECORDS SUMMARY | 2022-01-31 07:17 | XMS_ITS | Encounter Summary ---
:1990 Author Organization [facility] Address [address] [address] Care Team Providers Name Role Phone Brisa Smith PA-C Primary Care Provider Encounter Details Date Type Department Care Team Description 11/02/2009 PN Conversion Only [place] [address] [facility] [address] [place] [id number] [place] [address] Social History Tobacco Use Types Packs/Day Years Used Date Smoking Tobacco: Never Assessed Sex Assigned at Date Recorded Not on file documented as of this encounter Plan of Treatment Not on filedocumented as of this encounter Procedures Procedure Name Priority Date/Time Associated Diagnosis Comme nts BETA STREP FOLLOWUP Routine 11/02/2009 6:52 PM Re sults for this CDT procedure are i n the results section. STREP GROUP A Routine 11/02/2009 6:51 PM Results for this ANTIGEN TEST CDT procedure are i n the results section. documented in this encounter Results Beta Strep Followup (11/02/2009 6:52 PM CDT) P athologist Signature Strep Screen SEE TEXT HP CONVERSION Comment: CSSNC Culture Strep, Follow up from Rapid Test ? ORDERED BY: DAVIAN DAWSON SOURCE: Throat ? COLLECTED: ??11/02/09 18:52 ? PLATED: ? 11/02/09 18:52 Culture Strep, Follow up from Rapid Test ?? FINAL ? 11/03/09 10:04 No beta hemolytic Strep Group A isolate d. Specimen (Source) Anatomical Collection Method Collection Time Re ceived Time Location / / Volume Laterality 11/02/2009 6:52 PM CDT Davian Dawson MD LAB_1 Performing Organization Address City/State/ZIP Code Phon e Number HP CONVERSION Strep Group A Antigen Test (11/02/2009 6:51 PM CDT) Analysis Performed At [facility] Time Signature Strep Group A SEE TEXT HP CONVERSION Antigen Test Comment: RSS Rapid Strep Screen ? ORDERED BY: DAVIAN DAWSON SOURCE: Throat ? COLLECTED: ??11/02/09 18:51 ? PLATED: ? 11/02/09 18:52 Rapid Strep Screen ? FINAL ? 11/02/09 18:55 ??Test performed by:YUDY ? Negative for Streptococcus group A Specimen (Source) Anatomical Collection Method Collection Time Re ceived Time Location / / Volume Laterality 11/02/2009 6:51 PM CDT Davian Dawson MD LAB_1 Performing Organization Address City/State/ZIP Code Phon e Number HP CONVERSION documented in this encounter Visit Diagnoses Not on filedocumented in this encounter Care Teams Shotblaster Relationship Specialty Start Date End Date Brisa Smith PA-C PCP - General 07/30/10 04/18/15 [address] [place] [address] documented as of this encounter
--- OUTSIDE RECORDS SUMMARY | 2022-01-31 07:18 | XMS_ITS | Encounter Summary ---
:1990 Author Organization [facility] Address [address] [address] Care Team Providers Name Role Phone Brisa Smith PA-C Primary Care Provider Reason for Visit Reason Comments Other Encounter Details Date Type Department Care Team Description 01/18/2005 Telephone [facility], Message Other [address] [place] [address] Social History Tobacco Use Types Packs/Day Years Used Date Smoking Tobacco: Never Assessed Sex Assigned at Date Recorded Not on file documented as of this encounter [facility], Message - 01/18/2005 7:18 AM CDT Phone Note filed by [employer] at 08/13/102054 Author: [employer] Service: (none) Author Type: (none) Filed: 08/13/102054 Note Time: 01/18/05717 Status: Signed Farm Implement Mechanic: [employer] Mom Shemar) Hellen mortensen was in for an appointment yesterday and dad brought her. She'd like to know what went on during the visit. Please call [phone]. Created on 18Jan2005 7:18am by DAWSON DILLON M On 18Jan2005 12:05pm ABHAY PHILIPPE wrote: Had pain and a popping feeling along her left hip joint 24 hours prior to visit. On exam, she had tenderness at her hip joint and weakness (secondary to pain) in the corresponding muscle. X-ray was negative for fracture but with that history we recommended crutches until she could walk without pain. No running or jumping or any painful activities until she follows up in 7 days with ortho for further evaluation and rehab and return to play questions. It is possible that she might have a small avulsion fracture that would not be visible on the initial plain x-ray. If she such a fracture the treatment would be the same. Radiology report not yet back. Acknowledged by ABHAY PHILIPPE on 12:05pm On 18Jan2005 1:38pm BRITTANY MARSH wrote: Mom will call and make follow up apt for Ortho and return call if not able to get in next week. [employer] documented in this encounter Plan of Treatment Not on filedocumented as of this encounter Visit Diagnoses Not on filedocumented in this encounter Care Teams Finance Manager Relationship Specialty Start Date End Date Brisa Smith PA-C PCP - General 07/30/10 04/18/15 [address] [place] [address] documented as of this encounter
--- OUTSIDE RECORDS SUMMARY | 2022-01-31 07:18 | XMS_ITS | Encounter Summary ---
:1990 Author [facility] Address [address] [address] [place] [address] Care Team Providers Name Role Phone Brisa Smith PA-C Primary Care Provider Encounter Details Date Type Department Care Team Description 06/28/2005 Office Visit [facility] Gabo Weiner MD Subspecialty [address] [place] [address] [place], [place] [address] [phone] Social History Tobacco Use Types Packs/Day Years Used Date Smoking Tobacco: Never Assessed Sex Assigned at Date Recorded Not on file documented as of this encounter Last Filed Vital Signs Vital Sign Reading Time Taken Comments Blood Pressure 110/72 06/28/2005 2:55 PM ZIGZAG STITCHER Pulse 65 06/28/2005 2:55 PM ZIGZAG STITCHER Temperature - - Respiratory Rate - - Oxygen Saturation - - Inhaled Oxygen Concentration - - Weight 66.7 kg (146 lb 15.7 oz) 06/28/2005 2:55 PM C: 6 6.7kg ZIGZAG STITCHER Height 172.7 cm (5' 8) 06/28/2005 2:55 PM C: 172.7cm ZIGZAG STITCHER Body Mass Index 22.35 06/28/2005 2:55 PM ZIGZAG STITCHER Body Mass Index Percentile 71.67 % 06/28/2005 2:55 PM ZIGZAG STITCHER Growth Chart: [facility] (Girls, 2-20 Years) documented in this encounter Progress Notes Jarrett Weiner MD - 06/28/2005 12:01 AM CST Progress Notes signed by Jarrett Weiner MD at 07/05/05 0954 Author: Jarrett Weiner MD Service: (none) Author Type: Physician Filed: 08/17/10 1150 Note Time: 06/28/052014 Status: Signed Tactical Air Defense Controller: Jarrett Weiner MD (Physician) NAME: MINO POSADAS MR: [id number] ACCT: [id number] VISIT: [id number] DICTATING CLINICIAN: JARRETT WEINER MD JOB: [id number] CLINIC PROGRESS NOTE DATE OF VISIT: 06/28/2005 SUBJECTIVE: : 1990. Mino is 14 years old. I was asked to consult by Lena Chiu concerning the persistent illnesses in this young woman. She complains of fatigue, but she is up five to six times a night without snoring, daily bifrontal headaches that can be steady and/or pounding. She complains of stomachache, hurts all the time. Eating does not help or make it worse. It does not wake her at night. Normal bowel movements. No vomiting. Periods are prolonged, last 10 plus days that is usual for her. Last menstrual period was last week. She dates the onset of these symptoms to a pneumonia that started in the beginning of school in 2003. X-rays were done at that time at [facility]. She was not hospitalized. Recent volleyball tournament that made her totally exhausted. She has missed three plus weeks of school this year. She has three younger siblings. Born and raised in [place]. No travel history. No pets. CURRENT MEDICATIONS: Trazodone at night. She has only taken it for a couple of days. She says she is not depressed. She does not act or seem depressed during the interview. OBJECTIVE: VS: BP: 110/72. P: 65. Ht: 173 cm. Wt: 66 kg. She has some nasal congestion. NECK: Normal. CHEST: Clear. HEART: Sounds normal. ABDOMEN: Soft. She does complain of mid abdominal discomfort. ASSESSMENT: A year and a half history of stomachache, daily headaches, sleep disturbance, complaining of throat discomfort and exhaustion. PLAN: ENT examination. Coronal CT of her sinuses, chest x-ray, POSITION CLASSIFIER examination, CT of her abdomen, urinalysis. TT: [address]: 35 minutes. I counseled Mino and her mother concerning the nature of her symptoms, our approach to this issue, the importance of staying in school regardless of symptoms, work-up and followup. CC: LENA CHIU NP SCM:[id number] C: 07/02/05 12:22 DOCUMENT: [id number] AG STITCHER documented in this encounter Plan of Treatment Not on filedocumented as of this encounter Visit Diagnoses Not on filedocumented in this encounter Care Teams Conveyor Installer Relationship Specialty Start Date End Date Brisa Smith PA-C PCP - General 07/30/10 04/18/15 [address] [place] [address] documented as of this encounter
--- OUTSIDE RECORDS SUMMARY | 2022-01-31 07:18 | XMS_ITS | Encounter Summary ---
:1990 Author Organization [facility] Address [address], [place] [address] Care Team Providers Name Role Phone Brisa Smith PA-C Primary Care Provider Reason for Visit Reason Comments Other Encounter Details Date Type Department Care Team Description 06/19/2005 Telephone [facility], Message Other [address] [place] [address] Social History Tobacco Use Types Packs/Day Years Used Date Smoking Tobacco: Never Assessed Sex Assigned at Date Recorded Not on file documented as of this encounter Progress Notes Chelo Álvarez - 06/19/2005 10:28 AM CST Phone Note filed by Chelo Álvarez RN at 08/14/10 0110 Author: Chelo Álvarez RN Service: (none) Author Type: (none) Filed: 08/14/10109 Note Time: 06/19/05 1028 Status: Signed Retail Pos Specialist: Chelo Álvarez RN (Registered Nurse) Mom, Mildred, calling. Pt.isn't any better. Wants to know what next step is. Pt.has had sore throat that comes and goes, fatigue, body aches for several months, was seen 05/22/05 in . If she exerts herself at all she is wiped out. Was home yesterday from school after being at [employer]this weekend. Mom will be at [phone] after 11. Created on 19Jun2005 10:28am by CHELO ÁLVAREZ On 19Jun2005 12:16pm RIVER RAY wrote: Please have Hellen make an appointment for follow up of her recurrent sore throats, fatigue, and body aches. It's been since Feb that I last saw her in clinic. We can discuss appropriate plan of care and any additional testing necessary. Acknowledged by RIVER RAY on 12:16pm On 19Jun2005 1:36pm GENOVEVA JARQUIN wrote: No answer, I will try later. On 19Jun2005 2:56pm YINKA MCDONNELL wrote: Phone call to Mildred and she is informed they will need an appt. Transferred to appt. desk. MECHANIC HELPER documented in this encounter Plan of Treatment Not on filedocumented as of this encounter Visit Diagnoses Not on filedocumented in this encounter Care Teams Creative Recruiter Relationship Specialty Start Date End Date Brisa Smith PA-C PCP - General 07/30/10 04/18/15 [address] [place] [address] documented as of this encounter
--- OUTSIDE RECORDS SUMMARY | 2022-01-31 07:18 | XMS_ITS | Encounter Summary ---
:1990 Author Organization [facility] Address [address], [place] [address] Care Team Providers Name Role Phone Brisa Smith PA-C Primary Care Provider Reason for Visit Reason Comments Other Encounter Details Date Type Department Care Team Description 03/05/2005 Telephone [facility] Genoveva Villasenor LPN Other [address] [place] [address] Social History Tobacco Use Types Packs/Day Years Used Date Smoking Tobacco: Never Assessed Sex Assigned at Date Recorded Not on file documented as of this encounter [facility], [facility] - 03/05/2005 7:57 AM CST Phone Note filed by [employer] at 08/13/102207 Author: [employer] Service: (none) Author Type: (none) Filed: 08/13/102207 Note Time: 03/05/05756 Status: Signed Insurance Collector: [employer] Mom Shemar) calling to request a work-in this afternoon. She wants Hellen to get a mono test, and you have a few 15 minute openings. She can be reached at [phone]. Created on 05Mar2005 7:57am by DAWSON DILLON M On 05Mar2005 8:06am LENA CHIU wrote: OK to work-in Acknowledged by LENA CHIU on 8:06am On 05Mar2005 8:12am GENOVEVA JARQUIN wrote: LM for Mari to call back. We could have her come at 151, that would work the best. Acknowledged by GENOVEVA JARQUIN on 8:12am On 05Mar2005 9:55am TERESA BRAVO wrote: Pt's mother, Mari, calling back for Genoveva; she's not sure why she didn't hear the phone ring. I gave her the message that her daughter is scheduled for 1514 today with Lena Chiu. Mari says, Thank you!! No call-back needed. Acknowledged by GENOVEVA JARQUIN on 10:02am NG ENCASER documented in this encounter Plan of Treatment Not on filedocumented as of this encounter Visit Diagnoses Not on filedocumented in this encounter Care Teams Transportation Solutions Manager Relationship Specialty Start Date End Date Brisa Smith PA-C PCP - General 07/30/10 04/18/15 [address] [place] [address] documented as of this encounter
--- OUTSIDE RECORDS SUMMARY | 2022-01-31 07:18 | XMS_ITS | Encounter Summary ---
:1990 Author Organization [employer] Address [address], [place] [address] Care Team Providers Name Role Phone Brisa Smith PA-C Primary Care Provider Encounter Details Date Type Department Care Team Description 05/22/2005 Office Visit [facility] Ellen Solis, [address] [address] [facility] [place], [place] [id number] [facility] [phone] [place], [place] [address] Social History Tobacco Use Types Packs/Day Years Used Date Smoking Tobacco: Never Assessed Sex Assigned at Date Recorded Not on file documented as of this encounter Last Filed Vital Signs Vital Sign Reading Time Taken Comments Blood Pressure 127/66 05/22/2005 4:39 PM FIRER ELECTRIC LOCOMOTIVE Pulse 73 05/22/2005 4:39 PM FIRER ELECTRIC LOCOMOTIVE Temperature 36.7 ??C (98.1 ??F) 05/22/2005 4:39 PM FIRER ELECTRIC LOCOMOTIVE C: 36 .7 C Respiratory Rate 16 05/22/2005 4:39 PM FIRER ELECTRIC LOCOMOTIVE Oxygen Saturation 98% 05/22/2005 4:39 PM FIRER ELECTRIC LOCOMOTIVE Inhaled Oxygen Concentration - - Weight - - Height - - Body Mass Index - - documented in this encounter Progress Notes Ellen Solis PA-C - 05/22/2005 12:01 AM CST Progress Notes signed by Ellen Solis PA-C at 05/28/05 4603 Author: Ellen Solis PA-C Service: (none) Author Type: Resource Filed: 08/17/10 1102 Note Time: 05/22/05 0001 Status: Signed Ruby Rails Developer: Ellen Solis PA-C (Resource) NAME: MINO POSADAS MR: [id number] ACCT: [id number] VISIT: [id number] DICTATING CLINICIAN: ELLEN SOLIS PA-C JOB: [id number] CLINIC PROGRESS NOTE DATE OF VISIT: 05/22/2005 SUBJECTIVE: Kafqzwx-kupi-ypi female complaining of a cough for the past five days that has been dry and deep. States at times she has had a slight bit of wheeze but that has now cleared. Now has also had a sore throat for the past two days. The patient otherwise denies any fevers, chills, nausea, vomiting, strep exposure, body aches. All of the rest of complete review of systems is negative. PAST MEDICAL HISTORY: None. MEDICATIONS: Reviewed by myself in LastWord. ADR/ALLERGIES: REVIEWED BY MYSELF IN LASTWORD. SOCIAL HISTORY: Does not smoke. OBJECTIVE: VS: BP: 127/66. T: 98. P: 73. R: 16. O2 sat: 98%. OBSERVATION: Well-developed, well-nourished female in no acute distress, alert and cooperative. Patient looks well. She is alert and cooperative. SKIN: Warm and dry. No lesions, erythema or rashes noted. HEENT: Pupils equal and reactive to light. Extraocular motions are intact. TMs are clear. Turbinates are patent. Pharynx is clear. NECK: Soft without nodes. LUNGS: Clear. No rhonchi, wheezing or crackles. CV: Regular rate and rhythm. No murmurs, rubs or gallops. Rapid strep is ordered and reviewed by myself as negative. ASSESSMENT: 1. Viral pharyngitis. 2. URI. PLAN: Symptomatic care. Follow up as needed. LAG:[id number] C: 05/23/05 12:45 DOCUMENT: [id number] R ELECTRIC LOCOMOTIVE documented in this encounter Plan of Treatment Not on filedocumented as of this encounter Visit Diagnoses Not on filedocumented in this encounter Care Teams Electronic Sensing Equipment Assembler Relationship Specialty Start Date End Date Brisa Smith PA-C PCP - General 07/30/10 04/18/15 [address] [place] [address] documented as of this encounter
--- OUTSIDE RECORDS SUMMARY | 2022-01-31 07:18 | XMS_ITS | Encounter Summary ---
:1990 Author Organization [employer] Address [address], [place] [address] Care Team Providers Name Role Phone Brisa Smith PA-C Primary Care Provider Reason for Visit Reason Comments Other Encounter Details Date Type Department Care Team Description 06/21/2005 Telephone [facility], Message Other [address] [place] [address] Social History Tobacco Use Types Packs/Day Years Used Date Smoking Tobacco: Never Assessed Sex Assigned at Date Recorded Not on file documented as of this encounter Progress Notes Felipe Guevara - 06/21/2005 9:19 AM CST Phone Note filed by Felipe Guevara at 08/14/106 Author: Felipe Guevara Service: (none) Author Type: (none) Filed: 08/14/10 0115 Note Time: 06/21/05918 Status: Signed Move Coordinator: Rduy Strong Patient's mom, Mari, balbina. She is looking for a copy of some labs done after February 26. She is not sure of the exact dates but is interested in certain test results. Please call mom at [phone]. It is okay to leave a message. Created on 21Jun2005 9:19am by FELIPE GUEVARA On 21Jun2005 11:13am AKHIL LEMON wrote: Normal results for blood work left. Advised to call back if she has questions. ING PLEATER documented in this encounter Plan of Treatment Not on filedocumented as of this encounter Visit Diagnoses Not on filedocumented in this encounter Care Teams Corrective Therapist Relationship Specialty Start Date End Date Brisa Smith PA-C PCP - General 07/30/10 04/18/15 [address] [place] [address] documented as of this encounter
--- OUTSIDE RECORDS SUMMARY | 2022-01-31 07:18 | XMS_ITS | Encounter Summary ---
:1990 Author Organization [employer] Address [address], [place] [address] Care Team Providers Name Role Phone Brisa Smith PA-C Primary Care Provider Reason for Visit Reason Comments Other Encounter Details Date Type Department Care Team Description 06/25/2005 Telephone [employer], Message Other [address] [place] [address] Social History Tobacco Use Types Packs/Day Years Used Date Smoking Tobacco: Never Assessed Sex Assigned at Date Recorded Not on file documented as of this encounter Progress Notes Chelo Montiel - 06/25/2005 11:13 AM CST Phone Note filed by Chelo Montiel at 08/14/10121 Author: Chelo Montiel Service: (none) Author Type: (none) Filed: 08/14/10121 Note Time: 06/25/05 1113 Status: Signed In School Suspension Aide: Rudy Strong Pt's mom (Mildred) calling to inform Lena Chiu, that Infectious Disease won't see people under 18 years old.(Lena had referred her daughter there) She can be reached at [phone], and you are able to leave a detailed messgae. Created on 25Jun2005 11:13am by CHELO MONTIEL On 25Jun2005 3:00pm LENA CHIU wrote: Dawit Weiner MD is a pediatric MD in [facility]. Phone #[phone]. If she cannot get in with Dr Weiner, then Wolf Bran MD at [facility] [phone]. Acknowledged by LENA CHIU on 3:00pm On 25Jun2005 3:19pm LENA LEE wrote: Pt's mother was called and given the above information. ST FIRE SPECIALIST SUPERVISOR documented in this encounter Plan of Treatment Not on filedocumented as of this encounter Visit Diagnoses Not on filedocumented in this encounter Care Teams Make Up Operator Relationship Specialty Start Date End Date Brisa Smith PA-C PCP - General 07/30/10 04/18/15 [address] [place] [address] documented as of this encounter
--- OUTSIDE RECORDS SUMMARY | 2022-01-31 07:18 | XMS_ITS | Encounter Summary ---
:1990 Author Organization [employer] Address [address], [place] [address] Care Team Providers Name Role Phone Brisa Smith PA-C Primary Care Provider Encounter Details Date Type Department Care Team Description 07/02/2005 Office Visit [facility] Sussy Enciso, [address] APRN, [place] [address] Social History Tobacco Use Types Packs/Day Years Used Date Smoking Tobacco: Never Assessed Sex Assigned at Date Recorded Not on file documented as of this encounter Last Filed Vital Signs Vital Sign Reading Time Taken Comments Blood Pressure 110/70 07/02/2005 3:10 PM RESEARCHER Pulse 82 07/02/2005 3:10 PM RESEARCHER Temperature - - Respiratory Rate - - Oxygen Saturation - - Inhaled Oxygen Concentration - - Weight 66.6 kg (146 lb 12.5 oz) 07/02/2005 3:10 PM RESEARCHER C: 66.6kg Height - - Body Mass Index 22.32 06/28/2005 2:55 PM RESEARCHER Body Mass Index Percentile 71.37 % 07/02/2005 3:10 PM CS T Growth Chart: CDC (Girls, 2-20 Years) documented in this encounter Progress Notes Sussy Enciso APRN, CNP - 07/02/2005 12:01 AM CST Progress Notes signed by Sussy Enciso APRN, CNP at 07/02/05 1720 Author: GUILLAUME Stevens Service: (none) Author Type: Nurse Practitioner Filed: 08/17/10 1153 Note Time: 07/02/05 0001 Status: Signed Db2 Developer: GUILLAUME Stevens (Nurse Practitioner) Subjective: Patient presents for evaluation and discussion of fatigue and long periods. She states that she began menarche at age 11. Initially her periods were not as long. During the past year they are lasting 10 to 12 days and occurring every 28 days. [facility]. She has been taking iron supplements for many months. Last hemoglobin taken at the end of May was normal. She has had a normal thyroid test within the last couple of months. She has tried ibuprofen without success. Following discussion regarding options with she and her father, they would like her to start the Ortho Evra patch. Social history: She is a 14 year-old female. She is a [employer] in high school. Medications/drug allergies are updated and patient health profile. Gynecologic history: Last menstrual period started approximately 2 weeks ago. She has never been sexually active. Obstetric history: Nulliparous. Family history is negative. Lifestyle and habits: She is a nonsmoker. Objective: Vital signs as noted on last word flowsheet. Patient is accompanied by her father. She is well-groomed. She is a good historian. Exam is deferred. Assessment: Menorrhagia. Plan: Reviewed online medical record. Discussed options for treatment. Discussed physiology of dysfunctional uterine bleeding and menorrhagia. Following discussion Rx Ortho Evra patch, dispense nine with three refills. Discussed action, and menstruation, efficacy, possible side effects and warning signs. I explained that she will not need an annual exam until age 20 or if she becomes sexually active prior to that time. She is instructed to contact me annually for an extension on her patch. I have asked her to check blood pressure in approximately 6 months in one me know. I have asked her to return to clinic for hemoglobin recheck in approximately 1 month. I have given her a future lab slip. She is instructed to make a lab appointment. ARCHER documented in this encounter Plan of Treatment Not on filedocumented as of this encounter Visit Diagnoses Not on filedocumented in this encounter Care Teams Mannequin Wig Maker Relationship Specialty Start Date End Date Brisa Smith PA-C PCP - General 07/30/10 04/18/15 [address] [place] [address] documented as of this encounter
--- OUTSIDE RECORDS SUMMARY | 2022-01-31 07:18 | XMS_ITS | Encounter Summary ---
:1990 Author Organization [facility] Address [address] [place] [address] Care Team Providers Name Role Phone Brisa Smith PA-C Primary Care Provider Encounter Details Date Type Department Care Team Description 07/05/2005 Office Visit [facility] Gabo Weiner MD Subspecialty [address] [facility] [place] [address] [place], [place] [address] [phone] Social History Tobacco Use Types Packs/Day Years Used Date Smoking Tobacco: Never Assessed Sex Assigned at Date Recorded Not on file documented as of this encounter Progress Notes Jarrett Weiner MD - 07/05/2005 12:01 AM CST Progress Notes signed by Jarrett Weiner MD at 07/12/05 1436 Author: Jarrett Weiner MD Service: (none) Author Type: Physician Filed: 08/17/10 1159 Note Time: 07/05/05 0001 Status: Signed Manager Cafe: Jarrett Weiner MD (Physician) NAME: MINO POSADAS MR: [id number] ACCT: [id number] VISIT: [id number] DICTATING CLINICIAN: JARRETT WEINER MD JOB: [id number] CLINIC PROGRESS NOTE DATE OF VISIT: 07/05/2005 SUBJECTIVE: : 1990. Mino is 14 years old. I had seen her on the 03/03 in consultation with fatigue, bitemporal headaches that can be steady or pounding, stomachache that hurts all of the time, eating does not help. She is not gaining weight. Symptoms began with a pneumonia in the fall of 2003. Since our last visit, she has had several studies including head CT and sinus CT, abdominal CT, chest x-ray, all of which are normal. Her symptoms of course, remain unchanged. She has also had evaluation by ENT and CASH SALES AUDIT CLERK since our last visit. She has some prolonged periods 10 days each month, ortho vera patch was recommended for dysfunctional uterine bleeding, have not started that yet. OBJECTIVE: Unchanged and is normal. She does complain of the abdominal pain being middle of her abdomen. Labs were done today including liver function, antiphospholipid antibody, milk RAST. Follow up was arranged to discuss these upcoming results and to make a plan for getting relief from her symptoms. ASSESSMENT: Bitemporal headaches, fatigue, abdominal pain. PLAN: TT: 25. CT: 20. I counseled Mino and her mother concerning our evaluation today, her followup and our plans. SCM:[id number] C: 07/09/05 05:17 DOCUMENT: [id number] IONARY ENGINEER REFRIGERATION documented in this encounter Plan of Treatment Not on filedocumented as of this encounter Visit Diagnoses Not on filedocumented in this encounter Care Teams Monogram Technician Relationship Specialty Start Date End Date Brisa Smith PA-C PCP - General 07/30/10 04/18/15 [address] [place] [address] documented as of this encounter
--- OUTSIDE RECORDS SUMMARY | 2022-01-31 07:18 | XMS_ITS | Encounter Summary ---
:1990 Author Organization [employer] Address [address], [place] [address] Care Team Providers Name Role Phone Brisa Smiht PA-C Primary Care Provider Reason for Visit Reason Comments Other Encounter Details Date Type Department Care Team Description 03/12/2005 Telephone [facility] Kirti Kent Other [address] [place] [address] Social History Tobacco Use Types Packs/Day Years Used Date Smoking Tobacco: Never Assessed Sex Assigned at Date Recorded Not on file documented as of this encounter Progress Notes Kirti Kent - 03/12/2005 5:53 PM CST Phone Note filed by Kirti Kent RN at 08/13/102221 Author: Kirti Kent RN Service: (none) Author Type: Registered Nurse Filed: 08/13/102221 Note Time: 03/12/051752 Status: Signed Barrel And Receiver Aligner: Kirti Kent, RN (Registered Nurse) Mom calling for immunizations needed tonight when they go to a meeting about vollyball. Gave mom the immunizations that were in the computer. All that she needed weren't there. Created on 12Mar2005 5:53pm by KIRTI KENT HALMIC MEDICAL ASSISTANT documented in this encounter Plan of Treatment Not on filedocumented as of this encounter Visit Diagnoses Not on filedocumented in this encounter Care Teams Manager Operations Relationship Specialty Start Date End Date Brisa Smith PA-C PCP - General 07/30/10 04/18/15 [address] [place] [address] documented as of this encounter
--- OUTSIDE RECORDS SUMMARY | 2022-01-31 07:18 | XMS_ITS | Encounter Summary ---
:1990 Author Organization [employer] Address [address] [place] [address] Care Team Providers Name Role Phone Brisa Smith PA-C Primary Care Provider Encounter Details Date Type Department Care Team Description 03/05/2005 PN Conversion Only [facility] CONVERSION Lena Chiu, STONE CRUSHER OPERATOR, [address] [address] [address] [phone] (Wo rk) Social History Tobacco Use Types Packs/Day Years Used Date Smoking Tobacco: Never Assessed Sex Assigned at Date Recorded Not on file documented as of this encounter Plan of Treatment Not on filedocumented as of this encounter Procedures Procedure Name Priority Date/Time Associated Comments Diagnosis STREP GROUP A ANTIGEN Routine 03/05/2005 4:21 PM Results for this TEST GIZZARD PEELER procedure are i n the results section. BETA STREP FOLLOWUP Routine 03/05/2005 4:21 PM Re sults for this GIZZARD PEELER procedure are i n the results section. THYROID STIMULATING Routine 03/05/2005 3:47 PM Re sults for this HORMONE GIZZARD PEELER procedure are i n the results section. MONONUCLEOSIS SCREEN Routine 03/05/2005 3:47 PM R esults for this GIZZARD PEELER procedure are i n the results section. COMPLETE BLOOD Routine 03/05/2005 3:47 PM Results for this COUNT-W/DIFF GIZZARD PEELER procedure are i n the results section. FERRITIN Routine 03/05/2005 3:47 PM Results f or this GIZZARD PEELER procedure are i n the results section. documented in this encounter Results Strep Group A Antigen Test (03/05/2005 4:21 PM GIZZARD PEELER) [facility] Signature Strep Group A Negative Negative HP CONVERSION Antigen Test Comment: Culture to follow. Specimen (Source) Anatomical Collection Method Collection Time Re ceived Time Location / / Volume Laterality 03/05/2005 4:21 PM GIZZARD PEELER Lena Chiu APRN, ROSA LAB_1 Performing Organization Address [facility] Phon e Number HP CONVERSION Beta Strep Followup (03/05/2005 4:21 PM GIZZARD PEELER) athologist Signature Strep Screen SEE TEXT HP CONVERSION Comment: Patient: MINO POSADAS Rapid Strep Follow up Culture @ ? Collected: ??[id number] ??[id number] Source: Throat ?Processed: ??[id number] ??[id number] Final Report ------ ?[id number] ??[id number] No beta hemolytic Strep group A isolated . @ = Rapid F/U Cult Performed at [address] [place], [place] ?[address] Specimen (Source) Anatomical Collection Method Collection Time Re ceived Time Location / / Volume Laterality 03/05/2005 4:21 PM GIZZARD PEELER Lena Chiu APRN, [facility] LAB_1 Performing Organization Address [facility] Phon e Number HP CONVERSION (ABNORMAL) Complete Blood Count-W/Diff (03/05/2005 3:47 PM GIZZARD PEELER) [facility] Method Time Signature White Blood Cell 7.5 4.5 - 13.0 HP CONVERSIO N Count K/cmm Red Blood Cell 5.41 (H) 4.10 - HP CONVERSION Count 5.10 m/cmm Hemoglobin 16.0 12.0 - HP CONVERSION 16.0 gm/dL Hematocrit 47.3 (H) 36.0 - HP CONVERSION 46.0 % Mean Corpuscular 87.4 78.0 - HP CONVERSION Volume 100.0 fl Mean Corpuscular 29.5 24.0 - HP CONVERSION Hemoglobin 34.0 pg Mean Corpuscular 33.8 32.0 - HP CONVERSION Hemoglobin Conc 36.5 gm/dL [place] RDW 12.3 11.0 - HP CONVERSION 15.0 % Platelet Count 266 150 - 450 HP CONVERSION k/cmm Differential Auto-Dif No normal HP CONVERSION Verify range Neutrophils 3.7 K/cmm HP CONVERSION Absolute Count Neutrophil 49.0 % HP CONVERSION Lymphocyte % 34.7 % HP CONVERSION Monocyte 6.0 % HP CONVERSION Eosinophil 9.6 % HP CONVERSION Basophil % 0.7 % HP CONVERSION Specimen (Source) Anatomical Collection Method Collection Time Re ceived Time Location / / Volume Laterality 03/05/2005 3:47 PM GIZZARD PEELER Lena Chiu APRN, CNP LAB_1 Performing Organization Address City/[facility]/ZIP Code Phon e Number HP CONVERSION Mononucleosis Screen (03/05/2005 3:47 PM GIZZARD PEELER) [facility] Method Time Signature Infectious Negative Negative HP CONVERSION Mononucleosis Screen Specimen (Source) Anatomical Collection Method Collection Time Re ceived Time Location / / Volume Laterality 03/05/2005 3:47 PM GIZZARD PEELER Lena Chiu APRN, CNP LAB_1 Performing Organization Address City/State/ZIP Code Phon e Number HP CONVERSION Thyroid Stimulating Hormone (03/05/2005 3:47 PM GIZZARD PEELER) athologist Signature Thyroid 1.20 0.20 - HP CONVERSION Stimulating 4.50 Hormone uIU/mL Specimen (Source) Anatomical Collection Method Collection Time Re ceived Time Location / / Volume Laterality 03/05/2005 3:47 PM GIZZARD PEELER Lena Chiu APRN, CNP LAB_1 Performing Organization Address City/State/ZIP Code Phon e Number HP CONVERSION Ferritin (03/05/2005 3:47 PM GIZZARD PEELER) P athologist Signature Ferritin Serum 13 10 - 291 HP CONVERSION ng/mL Specimen (Source) Anatomical Collection Method Collection Time Re ceived Time Location / / Volume Laterality 03/05/2005 3:47 PM GIZZARD PEELER Lena Chiu STONE CRUSHER OPERATOR, FIELD PARTY MANAGER LAB_1 Performing Organization Address City/State/ZIP Code Phon e Number HP CONVERSION documented in this encounter Visit Diagnoses Not on filedocumented in this encounter Care Teams Resource Engineer Relationship Specialty Start Date End Date Brisa Smith PA-C PCP - General 07/30/10 04/18/15 [address] [place] [address] documented as of this encounter
--- OUTSIDE RECORDS SUMMARY | 2022-01-31 07:18 | XMS_ITS | Encounter Summary ---
:1990 Author Organization [employer] Address [address] [place] [address] Care Team Providers Name Role Phone Brisa Smith PA-C Primary Care Provider Encounter Details Date Type Department Care Team Description 03/25/2005 Office Visit [facility] Lena Wright, WEED BURNER, STOGIE PACKER [address] [place] [address] [phone] (Wo rk) Social History Tobacco Use Types Packs/Day Years Used Date Smoking Tobacco: Never Assessed Sex Assigned at Date Recorded Not on file documented as of this encounter Last Filed Vital Signs Vital Sign Reading Time Taken Comments Blood Pressure 104/60 03/25/2005 2:07 PM KITCHEN ASSISTANT Pulse - - Temperature 36.9 ??C (98.4 ??F) 03/25/2005 2:07 PM ORAL C: 3 6.9 C KITCHEN ASSISTANT Respiratory Rate - - Oxygen Saturation - - Inhaled Oxygen Concentration - - Weight 64.4 kg (142 lb) 03/25/2005 2:07 PM C: 64.4kg KITCHEN ASSISTANT Height - - Body Mass Index - - documented in this encounter Progress Notes Lena Chiu - 03/25/2005 12:01 AM CST Progress Notes signed by KIMBERLY Guerrier at 03/26/05 1444 Author: KIMBERLY Guerrier Service: (none) Author Type: Nurse Practitioner Filed: 08/17/10 0950 Note Time: 03/25/05 0001 Status: Signed Resource Center Teacher: KIMBERLY Guerrier (Nurse Practitioner) NAME: MINO POSADAS MR: [id number] ACCT: [id number] VISIT: [id number] DICTATING CLINICIAN: LENA CHIU NP JOB: [id number] CLINIC PROGRESS NOTE DATE OF VISIT: 03/25/2005 SUBJECTIVE: Chief Complaint: A 14-year-old female follows up for recurrent sore throat, fatigue, intermittent nausea, headaches. Seen early February (03/19/2005). Symptoms improved for a while, was not completely 100% better but now symptoms recurred. These have been occurring on and off since this past spring. She is followed with a surgical territory manager and chiropractor who has her on several different herbal products with underlying viral etiology thinking mono or CMV. Concerned as her father and one aunt were diagnosed with cytomegalovirus. No household exposure to animals or cats. Has not checked a temperature but feels feverish, sweaty at times, intermittent joints aches or pain. No cough or rash. No vomiting. Appetite decreased. Weight stable, lost about 2 lb in the past two weeks. Attends [employer], a student, plays volleyball. Has been missing school when she is feeling this way. Reports no concerns for depression. No overt stressors at home or at school. LMP one week ago. Sexually abstinent. Nonsmoker. No alcohol or illicit drugs. Reports normal bowel movement. No diarrhea. BM q. day. No UTI symptoms. Reports lower leg joint pain for the past week. Muscle aching lower legs. No swollen glands. MEDICATIONS: COQ10, multivitamins, NADH, a Belizean herb. Monolaurin supplement, Cordyceps (Belizean mushroom supplement). Taking these supplements t.i.d. ADR/ALLERGIES: SULFA, PENICILLIN. OBJECTIVE: VITAL SIGNS: BP: 104/60. T: 98.5. Wt: 142 lb. GENERAL: Alert female in no acute distress. Flat affect. HEENT: Eyes conjunctivae clear. TMs and canals clear. Throat oropharynx no erythema or exudate. NECK: Supple. No lymphadenopathy or thyromegaly. LUNGS: Clear. Effort unlabored. CARDIAC: S1, S2 RRR, no GMRs. ABDOMEN: Soft. Bowel sounds present. No organomegaly. No masses. No guarding. No CVAT. LABS: CBC normal. UA normal. Wilkinson screen negative. Strep culture negative 03/05/2005. ASSESSMENT: Recurrent symptoms fatigue, sore throat, nausea, abdominal pain, headache, feeling feverish; unclear etiology; possibly mono-like virus. PLAN: Checking serum Mary-Lemoyne virus, IgG, IgM; parvovirus IgG, IgM and CMV IgG, IgM. Notify once available. If these are negative and the symptoms are persisting will consult one of my physician colleagues for any further work up. Continue adequate fluid hydration. Depending on lab results or if symptoms persist; plan follow up and may consider having her stop some of the Belizean herbal supplements. She follows with Junior [facility] at [facility] [place], [place] (Settlement Technician/Chiropractor). FINAL IMPRESSION: Constellation of symptoms including fatigue, sore throat, intermittent abdominal pain, nausea, headache ALK:[id number] C: 03/26/05 13:48 DOCUMENT: [id number] HEN ASSISTANT documented in this encounter Plan of Treatment Not on filedocumented as of this encounter Visit Diagnoses Not on filedocumented in this encounter Care Teams Continuous Crusher Operator Relationship Specialty Start Date End Date Brisa Smith PA-C PCP - General 07/30/10 04/18/15 [address] [place] [address] documented as of this encounter
--- OUTSIDE RECORDS SUMMARY | 2022-01-31 07:18 | XMS_ITS | Encounter Summary ---
:1990 Author Organization [employer] Address [address] [address] Care Team Providers Name Role Phone Brisa Smith PA-C Primary Care Provider Encounter Details Date Type Department Care Team Description 03/05/2005 Office Visit [facility] Lena Wright, POULTRY HUSBANDMAN, HYDRO OPERATOR [address] [place] [address] [phone] (Wo rk) Social History Tobacco Use Types Packs/Day Years Used Date Smoking Tobacco: Never Assessed Sex Assigned at Date Recorded Not on file documented as of this encounter Last Filed Vital Signs Vital Sign Reading Time Taken Comments Blood Pressure 108/66 03/05/2005 3:20 PM CONTINGENTS SUPERVISOR Pulse - - Temperature 36.9 ??C (98.4 ??F) 03/05/2005 3:20 PM ORAL C: 3 6.9 C CONTINGENTS SUPERVISOR Respiratory Rate - - Oxygen Saturation - - Inhaled Oxygen Concentration - - Weight 65.3 kg (143 lb 15.7 03/05/2005 3:20 PM C: 65.3k g oz) CONTINGENTS SUPERVISOR Height - - Body Mass Index - - documented in this encounter Progress Notes Lena Chiu - 03/05/2005 12:01 AM CST Progress Notes signed by KIMBERLY Guerrier at 03/06/05 1526 Author: KIMBERLY Guerrier Service: (none) Author Type: Nurse Practitioner Filed: 08/17/10 0927 Note Time: 03/05/05 0001 Status: Signed Roving Can Tender: KIMBERLY Guerrier (Nurse Practitioner) NAME: MINO POSADAS MR: [id number] ACCT: [id number] VISIT: [id number] DICTATING CLINICIAN: LENA CHIU NP JOB: [id number] CLINIC PROGRESS NOTE DATE OF VISIT: 03/05/2005 SUBJECTIVE: Chief Complaint: A 14-year-old female who presents to clinic with her mother with a 10-day history of headaches, sore throat, fatigue, low energy, and intermittent nausea. No emesis. No abdominal pain. No cough or shortness of breath. Patient states, I feel fine today. Her mother makes this appointment for her today concerned about possible mono or an underlying viral infection. To recap, patient had similar symptoms 08/2004 thought to be a probable viral syndrome. She then sought career representative who specializes in supplements, started on the supplements, and started feeling better for several months. She was not feeling well for the past month or two, resumed the career representative and supplements, felt sick for about a week, and now reports feeling better. She is physically active, attends the 10th grade at [employer], A student. Reports no concerns with any relationships at home or school. Sexually abstinent. No concerns for . LMP 2 weeks ago. Nonsmoker. No alcohol use or illicit drugs. Patient was interviewed separately from her mother. No urine frequency, urge, or dysuria. No concerns for depression. MEDICATIONS: Several supplements including CoQ10 several Welsh herbs, and a pill called Cell Revive. ADR/ALLERGIES: SULFA AND PENICILLIN. OBJECTIVE: VS: BP: 108/66. T: 98.4. Wt: 144 lb. GENERAL: Alert female. No acute distress. Somewhat of a flat affect. SKIN: Soft, warm, dry. EYES: Conjunctivae clear. PERRLA. TMS/CANALS: Clear. NARES: Patent. THROAT/OROPHARYNX: Unremarkable. NECK: Supple. No lymphadenopathy or thyromegaly. LUNGS: Clear. Effort unlabored. CARDIAC: S1, S2, RRR. No GMRs. ABDOMEN: Soft. Bowel sounds present. No organomegaly, masses, or guarding. No CVAT. LABS: Robertson screen negative. Rapid strep screen negative. WBC 7.5, RBC borderline high at 5.41, hemoglobin 16.0, normal differential. ASSESSMENT: Fatigue, sore throat, and headache, suspect viral etiology, improving. PLAN: TSH, ferritin level pending, will notify via letter form, to rule out other underlying causes for her fatigue. Continue to observe. If symptoms persist in the next month, to follow up or sooner if symptoms worsen. Encouraged adequate fluid hydration and taking care of herself in terms of healthy eating and good sleep. I am not clear as to what Welsh herbs she is on. If she reports any other unusual concerns or symptoms, I would ask her to stop those and follow up. FINAL IMPRESSION: Fatigue, sore throat, and headache, suspect viral etiology, improving. ALK:[id number] C: 03/06/05 09:29 DOCUMENT: [id number] INGENTS SUPERVISOR documented in this encounter Plan of Treatment Not on filedocumented as of this encounter Visit Diagnoses Not on filedocumented in this encounter Care Teams Cream Maker Relationship Specialty Start Date End Date Brisa Smith PA-C PCP - General 07/30/10 04/18/15 [address] [place] [address] documented as of this encounter
--- OUTSIDE RECORDS SUMMARY | 2022-01-31 07:18 | XMS_ITS | Encounter Summary ---
:1990 Author Organization [facility] Address [address], [place] [address] Care Team Providers Name Role Phone Brisa Smith PA-C Primary Care Provider Encounter Details Date Type Department Care Team Description 06/25/2005 PN Conversion Only HELENA CONVERSION Lena Chiu, BUILDINGS AND GROUNDS COORDINATOR, [address] [address] [address] [phone] (Wo rk) Social History Tobacco Use Types Packs/Day Years Used Date Smoking Tobacco: Never Assessed Sex Assigned at Date Recorded Not on file documented as of this encounter Plan of Treatment Not on filedocumented as of this encounter Procedures Procedure Name Priority Date/Time Associated Comments Diagnosis LYME DISEASE SCREEN Routine 06/25/2005 9:05 Resul ts for this (IN-HOUSE) AM PARTS SALES REPRESENTATIVE procedure are i n the results section. PARVOVIRUS B19 IGG & IGM Routine 06/25/2005 9:05 Results for this ANTIBODIES AM PARTS SALES REPRESENTATIVE procedure are i n the results section. CYTOMEGALOVIRUS IGM Routine 06/25/2005 9:05 Resul ts for this ANTIBODY AM PARTS SALES REPRESENTATIVE procedure are i n the results section. CYTOMEGALOVIRUS IGG Routine 06/25/2005 9:05 Resul ts for this ANTIBODY AM PARTS SALES REPRESENTATIVE procedure are i n the results section. HEMOGLOBIN, BLOOD Routine 06/25/2005 9:05 Results for this AM PARTS SALES REPRESENTATIVE procedure are i n the results section. WBC, BLOOD Routine 06/25/2005 9:05 Results for this AM PARTS SALES REPRESENTATIVE procedure are i n the results section. RHEUMATOID FACTOR, QUANT Routine 06/25/2005 9:05 Results for this AM PARTS SALES REPRESENTATIVE procedure are i n the results section. FERRITIN Routine 06/25/2005 9:05 Results for this AM PARTS SALES REPRESENTATIVE procedure are i n the results section. IRISH SCREEN Routine 06/25/2005 9:05 Results for this AM PARTS SALES REPRESENTATIVE procedure are i n the results section. ESR Routine 06/25/2005 9:05 Results for this AM PARTS SALES REPRESENTATIVE procedure are i n the results section. documented in this encounter Results Hemoglobin, Blood (06/25/2005 9:05 AM PARTS SALES REPRESENTATIVE) athologist Signature Hemoglobin 15.4 12.0 - 16.0 HP CONVERSION gm/dL Specimen (Source) Anatomical Collection Method Collection Time Re ceived Time Location / / Volume Laterality 06/25/2005 9:05 AM PARTS SALES REPRESENTATIVE Lena Chiu APRN, CNP LAB_1 Performing Organization Address City/[facility]/ZIP Code Phon e Number HP CONVERSION WBC, Blood (06/25/2005 9:05 AM PARTS SALES REPRESENTATIVE) athologist Signature White Blood 4.8 4.5 - 13.0 HP CONVERSION Cell Count K/cmm Specimen (Source) Anatomical Collection Method Collection Time Re ceived Time Location / / Volume Laterality 06/25/2005 9:05 AM PARTS SALES REPRESENTATIVE Lena Chiu APRN, CNP LAB_1 Performing Organization Address City/[facility] Phon e Number HP CONVERSION ESR (06/25/2005 9:05 AM PARTS SALES REPRESENTATIVE) Patholo gist Method Time Signature Sedimentation Rate 1 0 - 20 HP CONVERSI ON mm/Hr Specimen (Source) Anatomical Collection Method Collection Time Re ceived Time Location / / Volume Laterality 06/25/2005 9:05 AM PARTS SALES REPRESENTATIVE Lena Chiu APRN, CNP LAB_1 Performing Organization Address City/[facility]/ZIP Code Phon e Number HP CONVERSION IRISH Screen (06/25/2005 9:05 AM PARTS SALES REPRESENTATIVE) Analysis Performed At Patho logist Time Signature Anti-Nuclear Negative Negative HP CONVERSION Ab Specimen (Source) Anatomical Collection Method Collection Time Re ceived Time Location / / Volume Laterality 06/25/2005 9:05 AM PARTS SALES REPRESENTATIVE Lena Chiu APRN, CNP LAB_1 Performing Organization Address City/[facility]/ZIP [facility] Phon e Number HP CONVERSION Rheumatoid Factor, Quant (06/25/2005 9:05 AM PARTS SALES REPRESENTATIVE) [facility] Method Time Signature Rheumatoid Negative 0 - 20 HP CONVERSION Factor IU/mL Specimen (Source) Anatomical Collection Method Collection Time Re ceived Time Location / / Volume Laterality 06/25/2005 9:05 AM PARTS SALES REPRESENTATIVE Lena Chiu APRN, ROSA LAB_1 Performing Organization Address [facility]/ZIP Code Phon e Number HP CONVERSION Ferritin (06/25/2005 9:05 AM PARTS SALES REPRESENTATIVE) athologist Signature Ferritin Serum 17 10 - 291 HP CONVERSION ng/mL Specimen (Source) Anatomical Collection Method Collection Time Re ceived Time Location / / Volume Laterality 06/25/2005 9:05 AM PARTS SALES REPRESENTATIVE Lena Chiu APRN, CNP LAB_1 Performing Organization Address [facility]/ZIP Code Phon e Number HP CONVERSION Parvovirus B19 Igg & Igm Antibodies (06/25/2005 9:05 AM PARTS SALES REPRESENTATIVE) athologist Signature Parvovirus B19 0.16 HP CONVERSION IgG Antibody Comment: Interpretive data: REFERENCE INTERVAL: Parvovirus B19 Antib anais, IgG ??0.89 IV or less........... Negative - No significant ? level of detectable Parvovirus ? B19 IgG antibody. ??0.90 - 1.10 IV ........... Equivocal - Repeat testing in ? 10-14 days may be helpful. ??1.11 IV or greater........ Positive - IgG antibody to ? Parvovirus B19 detected which ? may indicate a current or ? past infection. The best evidence for current infection is a significant change on two appropriately timed specim ens, where both tests are done in the same laboratory at the same time. Parvovirus B19 IgM Antibody 0.12 HP CONVERSION Comment: Interpretive data: REFERENCE INTERVAL: Parvovirus B19 Antib anais, IgM ??0.89 IV or less........... Negative - No significant ? level of detectable Parvovirus ? B19 IgM antibody. ??0.90 - 1.10 IV ........... Equivocal - Repeat testing in ? 10-14 days may be helpful. ??1.11 IV or geater......... Positive - IgM antibody to ? Parvovirus B19 detected which ? may indicate a current or ? recent infection. However, low ? levels of IgM antibodies may ? occasionally persist for more ? than 12 months post-infection. The best evidence for current infection is a significant change on two appropriately timed specim ens, where both tests are done in the same laboratory at the same time. Appearance of an IgM antibody response n ormally occurs seven to 14 days after the onset of dise ases. Testing immediately post-exposure is of no value without a later convalescent specimen. A residual IgM re sponse may be distinguished from early IgM response to infection by testing sera from patients three to four weeks later for changing levels of specific IgM antibodi es. Specimen (Source) Anatomical Collection Method Collection Time Re ceived Time Location / / Volume Laterality 06/25/2005 9:05 AM PARTS SALES REPRESENTATIVE Lena Chiu APRN, CNP LAB_1 Performing Organization Address [facility] Phon e Number HP CONVERSION Cytomegalovirus IgG Antibody (06/25/2005 9:05 AM PARTS SALES REPRESENTATIVE) [employer]ur Method Time Signature Cytomegalovirus IgG 39 AU HP CONVERS ION Antibody Comment: <4.0...Negative: No clinically significa nt level of antibody detected. >=4.0 - 5.9...Equivocal: Repeat testing in 10 - 14 days is suggested. >=6.0...Positive: A significant level of antibody is detected. This may indicate a current or recent infection. Positive test results may not be valid i n persons who have received blood transfusions or other blood products wit hin the past several months. In immunocompromised patients, CMV serol ogy (IgG or IgM antibody titers) may not be reliable and may be misleading in the diagnosis of acute or reactivation CMV disease. The preferred method for diagnosis is CMV culture. Specimen (Source) Anatomical Collection Method Collection Time Re ceived Time Location / / Volume Laterality 06/25/2005 9:05 AM PARTS SALES REPRESENTATIVE Lena Chiu APRN, CNP LAB_1 Performing Organization Address [facility] e Number HP CONVERSION Cytomegalovirus IgM Antibody (06/25/2005 9:05 AM PARTS SALES REPRESENTATIVE) Imgur Method Time Signature Cytomegalovirus IgM 0.07 AU HP CONVERS ION Comment: <0.70...Negative: No clinically signific ant level of antibody detected. >=0.70 - 0.89...Equivocal: Repeat testin g in 10 - 14 days is suggested. >=0.90...Positive: A significant level o f antibody is detected. This may indicate a current or recent infection. While the presence of IgM antibodies sug gest current or recent infection, low levels of IgM antibodies may occasionall y persist for more than 12 months post-infection. In immunocompromised patients, CMV serol ogy (IgG or IgM antibody titers) may not be reliable and may be misleading in the diagnosis of acute or reactivation CMV disease. The preferred method for diagnosis is CMV culture. Specimen (Source) Anatomical Collection Method Collection Time Re ceived Time Location / / Volume Laterality 06/25/2005 9:05 AM PARTS SALES REPRESENTATIVE Lena Chiu APRN, CNP LAB_1 Performing Organization Address [facility] Phon e Number HP CONVERSION Lyme Disease Screen (IN-House) (06/25/2005 9:05 AM PARTS SALES REPRESENTATIVE) athologist Signature Lyme Screen Negative No normal HP CONVERSION range Comment: A negative Lyme result does not rule out Lyme disease. ??If a current infection is suspected, please submit a second specimen in 4-6 weeks. Positive or equivocal specimens are auto matically sent to [facility] for Western Blot testing. Specimen (Source) Anatomical Collection Method Collection Time Re ceived Time Location / / Volume Laterality 06/25/2005 9:05 AM PARTS SALES REPRESENTATIVE Lena Chiu APRN, CNP LAB_1 Performing Organization Address City/[facility] Phon e Number HP CONVERSION documented in this encounter Visit Diagnoses Not on filedocumented in this encounter Care Teams Gravity Meter Observer Relationship Specialty Start Date End Date Brisa Smith PA-C PCP - General 07/30/10 04/18/15 [address] [place] [address] documented as of this encounter
--- OUTSIDE RECORDS SUMMARY | 2022-01-31 07:18 | XMS_ITS | Encounter Summary ---
:1990 [facility] [address], [place] [address] Care Team Providers Name Role Phone Brisa Smith PA-C Primary Care Provider Encounter Details Date Type Department Care Team Description 07/04/2005 Office Visit [facility] [address] Ear, Luz Fajardo MD Nose, and Throat [address] [facility] [address] [facility] [place] [address] [place], [place] [id number] [phone] Social History Tobacco Use Types Packs/Day Years Used Date Smoking Tobacco: Never Assessed Sex Assigned at Date Recorded Not on file documented as of this encounter Progress Notes Luz Fajardo MD - 07/04/2005 12:01 AM CST Progress Notes signed by Luz Fajardo MD at 07/05/05 1410 Author: Luz Fajardo MD Service: (none) Author Type: Physician Filed: 08/17/10 1156 Note Time: 07/04/05 0001 Status: Signed Electrical Journeyman: Luz Fajardo MD (Physician) NAME: MINO POSADAS MR: [id number] ACCT: [id number] VISIT: [id number] DICTATING CLINICIAN: LUZ FAJARDO MD JOB: [id number] CLINIC PROGRESS NOTE DATE OF VISIT: 07/04/2005 SUBJECTIVE: A 14-year-old I am seeing at the request of Jarrett Weiner. The patient is here with her mom. I do know her mom as I have operated on a family member in the past. Mino is here evaluation of some general symptoms of excessive fatigue, recurrent sore throat, and she points to her upper neck as the area of recurrent pain, and she also has bitemporal headaches that she gets recurrently. She has very disrupted sleep in that she is up several times throughout the night but does not snore. She has no pauses in her breathing and is not aware of what causes her actually to wake up repeatedly throughout the night. She is not aware of any bruxism or grinding. She has, however, had orthodontia and this sometimes does predispose to a bruxism or muscle spasms in the area that can cause bitemporal pain, and because this is something that is a problem during sleep this could be recurrently waking her up. She has been unable to detect a pattern to her symptoms however and of course is not aware of any of these bruxism or grinding behaviors. She has had some nasal congestion and a sinus CT has been ordered by Dr. Weiner which is present for my evaluation today. This has both coronal and axial projections available and really shows that there is no abnormality with the sinuses whatsoever. There are no structural abnormalities. The septum is straight and the sinuses have no inflammation whatsoever. She does feel her sense of smell is somewhat poor. She has not really been on any medications related to any of these symptoms, except that she is on Trazodone for sleep. She reports that her symptoms really are present all of the time without variation. She has no wheezing, no allergies, no heartburn, no thyroid problems, no arthritis. She seems to miss school frequently because of this. She really has not eliminated her typical activities that she enjoys although she feels that she becomes more fatigued, for example, toward the end of a volleyball practice she feels more fatigued than she used to. She denies any unexplained weight loss. She apparently has denied depression and has not appeared to be depressed in the past. She is status post tonsillectomy. She has otherwise considered herself to be in good health. She provides most of her history today. MEDICATIONS: Trazodone. ADR/ALLERGIES: SULFA AND PENICILLIN. OBJECTIVE: Examination reveals a communicative very quiet young woman today. She actually has a very sad affect, I believe, today. She has very little facial expression throughout the entire exam and almost no voice inflection whatsoever. She speaks very softly. She does smile briefly at times with certain points in the conversation and seems relaxed and comfortable with her mom in the room. She certainly does not appear to be distressed. She has normal facial features and normal bone symmetry. Ears, TMs and canals are normal. Ocular motility is normal. Her intranasal exam shows no congestion, no septal abnormalities. Lips, teeth, gums, oral cavity and oropharynx shows a lower retainer, and straight pearly white teeth with normal mucosa. She is status post tonsillectomy with no abnormal healing. The nasopharynx, hypopharynx and larynx are easily visualized with a mirror and are perfectly normal. There is no tongue base hypertrophy. No narrowing in the hypopharynx. Neck, salivary glands and thyroid shows no adenopathy. She does report very mild tenderness in the upper neck that really seems to be more muscular to me along the upper portion of the sternocleidomastoid on each side but there is no significant masses or problems in this area. ASSESSMENT: Bitemporal headaches and fatigue. Recurrent sore throats. She did have a lot of strep as a younger child but has not had this at all since tonsillectomy. I have reassured both she and her mom that her CT is perfectly normal and I do not find any explanations in the head and neck to account for these generalized symptoms. I would however consider a visit with a facial pain TMJ clinical haematologist to see if there is any muscle spasms or abnormal findings with the TMJs related to orthodontia, this maybe creating the bitemporal headaches and could be the explanation for disrupted sleep. I do not at this point suspect a central sleep apnea based on the pattern but as a last resort a consideration of a sleep study would be something to think about, a lot of blood work has been done and further evaluations are being considered as well. She may need to have a specific headache or migraine evaluation. PLAN: At this point I do not find any abnormal findings whatsoever in the head and neck area, and she and her mom both, I believe, have had their questions answered. At this point she will follow up in ENT on an as needed basis. CC: JARRETT WEINER MD [facility] SMS:[id number] C: 07/04/05 14:01 DOCUMENT: [id number] WORKER documented in this encounter Plan of Treatment Not on filedocumented as of this encounter Visit Diagnoses Not on filedocumented in this encounter Care Teams Guide Domestic Tour Relationship Specialty Start Date End Date Brisa Smith PA-C PCP - General 07/30/10 04/18/15 [address] [place] [address] documented as of this encounter
--- OUTSIDE RECORDS SUMMARY | 2022-01-31 07:18 | XMS_ITS | Encounter Summary ---
:1990 Author Organization [facility] Address [address] [place] [address] Care Team Providers Name Role Phone Brisa Smith PA-C Primary Care Provider Encounter Details Date Type Department Care Team Description 06/28/2005 PN Conversion Only [place] [facility] Jarrett Weiner, [address] [place] [address] [address] [place] [address] (Wo rk) Social History Tobacco Use Types Packs/Day Years Used Date Smoking Tobacco: Never Assessed Sex Assigned at Date Recorded Not on file documented as of this encounter Plan of Treatment Not on filedocumented as of this encounter Procedures Procedure Name Priority Date/Time Associated Comments Diagnosis URINALYSIS COMPLETE Routine 06/28/2005 4:58 PM Re sults for this OYSTER CULLER procedure are i n the results section. TEST Routine 06/28/2005 4:58 PM Results for this (URINE) OYSTER CULLER procedure are i n the results section. documented in this encounter Results (ABNORMAL) Urinalysis Complete (06/28/2005 4:58 PM OYSTER CULLER) [facility] Method Time Signature Glucose, Negative Neg-Trac HP CONVERSION Qualitative U Protein Urine Negative Neg-Trac HP CONVERSION Ketones Negative Negative HP CONVERSION U BILI Negative Negative HP CONVERSION U Specific 1.025 1.005 - 25 HP CONVERSION [place] Blood Urine Negative Negative HP CONVERSION pH Urine 5.0 4.5 - 7.5 HP CONVERSION Urobilinogen Negative 0.2 - 1.0 HP CONVERSION Urine Nitrite Urine Negative Negative HP CONVERSION Leukocyte Negative Negative HP CONVERSION Esterase Urine White Blood 0-2/HPF 0 - 3 HP CONVERSION Cells Urine Red Blood Cells Negative 0 - 2 HP CONVERSION Urine Trichomonas Present (A) Negative HP CONVERSION Specimen (Source) Anatomical Collection Method Collection Time Re ceived Time Location / / Volume Laterality 06/28/2005 4:58 PM OYSTER CULLER Jarrett Weiner MD LAB_1 Performing Organization Address City/[facility]/ZIP Code Phon e Number HP CONVERSION Test (Urine) (06/28/2005 4:58 PM OYSTER CULLER) [facility] Method Time Signature Urine Negative No normal HP CONVERSION Test range Comment: The sensitivity of this assay is 25 mIU/ mL. This test can detect as early as 10-12 days after conception. It may be positive before a first missed menses. A negative result does no t rule out an early . Specimen (Source) Anatomical Collection Method Collection Time Re ceived Time Location / / Volume Laterality 06/28/2005 4:58 PM OYSTER CULLER Jarrett Weiner MD LAB_1 Performing Organization Address City/[facility] Phon e Number HP CONVERSION documented in this encounter Visit Diagnoses Not on filedocumented in this encounter Care Teams Branch Service Representative Relationship Specialty Start Date End Date Brisa Smith PA-C PCP - General 07/30/10 04/18/15 [address] [place] [address] documented as of this encounter
--- OUTSIDE RECORDS SUMMARY | 2022-01-31 07:18 | XMS_ITS | Encounter Summary ---
:1990 Author Organization [facility] Address [address] [place] [address] Care Team Providers Name Role Phone Brisa Smith PA-C Primary Care Provider Encounter Details Date Type Department Care Team Description 07/05/2005 PN Conversion Only [place] [facility] Jarrett Weiner, [address] [place] [address] [address] [place] [address] (Wo rk) Social History Tobacco Use Types Packs/Day Years Used Date Smoking Tobacco: Never Assessed Sex Assigned at Date Recorded Not on file documented as of this encounter Plan of Treatment Not on filedocumented as of this encounter Procedures Procedure Name Priority Date/Time Associated Comments Diagnosis LAB IGM Routine 07/05/2005 3:14 PM Results f or this NREMT procedure are i n the results section. CARDIOLIPIN Routine 07/05/2005 3:14 PM Results f or this ANTIBODIES, IGG AND NREMT procedur e are in IGM the results section. THYROID STIMULATING Routine 07/05/2005 3:14 PM Re sults for this HORMONE NREMT procedure are i n the results section. CREATININE / GFR Routine 07/05/2005 3:14 PM Resul ts for this NREMT procedure are i n the results section. IGE, MILK (F2) Routine 07/05/2005 3:14 PM Results for this NREMT procedure are i n the results section. COMPLETE BLOOD Routine 07/05/2005 3:14 PM Results for this COUNT-W/DIFF NREMT procedure are i n the results section. BILIRUBIN, TOTAL & Routine 07/05/2005 3:14 PM Res ults for this DIRECT NREMT procedure are i n the results section. FREE T4 Routine 07/05/2005 3:14 PM Results f or this NREMT procedure are i n the results section. IGG, SERUM Routine 07/05/2005 3:14 PM Results f or this NREMT procedure are i n the results section. IGE TOTAL Routine 07/05/2005 3:14 PM Results f or this NREMT procedure are i n the results section. IGA, SERUM Routine 07/05/2005 3:14 PM Results f or this NREMT procedure are i n the results section. C-REACTIVE PROTEIN Routine 07/05/2005 3:14 PM Res ults for this NREMT procedure are i n the results section. AST Routine 07/05/2005 3:14 PM Results f or this NREMT procedure are i n the results section. LD TOTAL (LDH) Routine 07/05/2005 3:14 PM Results for this NREMT procedure are i n the results section. BUN Routine 07/05/2005 3:14 PM Results f or this NREMT procedure are i n the results section. documented in this encounter Results Complete Blood Count-W/Diff (07/05/2005 3:14 PM NREMT) [facility] gist Method Time Signature White Blood Cell 5.5 4.5 - 13.0 HP CONVERSIO N Count K/cmm Red Blood Cell 4.77 4.10 - HP CONVERSION Count 5.10 m/cmm Hemoglobin 13.6 12.0 - HP CONVERSION 16.0 gm/dL Hematocrit 39.0 36.0 - HP CONVERSION 46.0 % Mean Corpuscular 81.7 78.0 - HP CONVERSION Volume 100.0 fl Mean Corpuscular 28.6 24.0 - HP CONVERSION Hemoglobin 34.0 pg Mean Corpuscular 35.0 32.0 - HP CONVERSION Hemoglobin Conc 36.5 gm/dL [place] RDW 12.2 11.0 - HP CONVERSION 15.0 % Platelet Count 280 150 - 450 HP CONVERSION k/cmm Differential Auto-Dif No normal HP CONVERSION Verify range Neutrophils 2.4 K/cmm HP CONVERSION Absolute Count Neutrophil 43.7 % HP CONVERSION Lymphocyte % 46.7 % HP CONVERSION Monocyte 6.6 % HP CONVERSION Eosinophil 2.6 % HP CONVERSION Basophil % 0.4 % HP CONVERSION Specimen (Source) Anatomical Collection Method Collection Time Re ceived Time Location / / Volume Laterality 07/05/2005 3:14 PM NREMT Jarrett Weiner MD LAB_1 Performing Organization Address City/State/ZIP Code Phon e Number HP CONVERSION AST (07/05/2005 3:14 PM NREMT) [facility] Method Time Signature Aspartate 20 0 - 45 HP CONVERSION Aminotransferase U/L Specimen (Source) Anatomical Collection Method Collection Time Re ceived Time Location / / Volume Laterality 07/05/2005 3:14 PM NREMT Jarrett Weiner MD LAB_1 Performing Organization Address City/State/ZIP Code Phon e Number HP CONVERSION Bilirubin, Total & Direct (07/05/2005 3:14 PM NREMT) athologist Signature Bilirubin Total 0.2 0.2 - 1.2 HP CONVERSION mg/dL Bilirubin, 0.1 0.0 - 0.4 HP CONVERSION Direct mg/dL Specimen (Source) Anatomical Collection Method Collection Time Re ceived Time Location / / Volume Laterality 07/05/2005 3:14 PM NREMT Jarrett Weiner MD LAB_1 Performing Organization Address City/[facility]/ZIP Code Phon e Number HP CONVERSION BUN (07/05/2005 3:14 PM NREMT) athologist Signature Blood Urea 13 5 - 26 HP CONVERSION Nitrogen mg/dL Specimen (Source) Anatomical Collection Method Collection Time Re ceived Time Location / / Volume Laterality 07/05/2005 3:14 PM NREMT Jarrett Weiner MD LAB_1 Performing Organization Address City/[facility]/ZIP Code Phon e Number HP CONVERSION Creatinine / GFR (07/05/2005 3:14 PM NREMT) athologist Signature Creatinine 0.8 0.5 - 1.5 HP CONVERSION Serum mg/dL Specimen (Source) Anatomical Collection Method Collection Time Re ceived Time Location / / Volume Laterality 07/05/2005 3:14 PM NREMT Jarrett Weiner MD LAB_1 Performing Organization Address City/State/ZIP Code Phon e Number HP CONVERSION LD Total (LDH) (07/05/2005 3:14 PM NREMT) [facility] gist Method Time Signature Lactic Acid 169 90 - 180 HP CONVERSION Dehydrogenase U/L Specimen (Source) Anatomical Collection Method Collection Time Re ceived Time Location / / Volume Laterality 07/05/2005 3:14 PM NREMT Jarrett Weiner MD LAB_1 Performing Organization Address City/State/ZIP Code Phon e Number HP CONVERSION C-Reactive Protein (07/05/2005 3:14 PM NREMT) athologist Signature CRP <0.2 0.0 - 0.9 HP CONVERSION mg/dL Specimen (Source) Anatomical Collection Method Collection Time Re ceived Time Location / / Volume Laterality 07/05/2005 3:14 PM NREMT Jarrett Weiner MD LAB_1 Performing Organization Address City/State/ZIP Code Phon e Number HP CONVERSION IgA, Serum (07/05/2005 3:14 PM NREMT) Analysis Performed At [facility] Signature Immunoglobulin A 109 51 - 190 HP CONVERSION mg/dL Specimen (Source) Anatomical Collection Method Collection Time Re ceived Time Location / / Volume Laterality 07/05/2005 3:14 PM NREMT Jarrett Weiner MD LAB_1 Performing Organization Address City/[facility] Code Phon e Number HP CONVERSION Igg, Serum (07/05/2005 3:14 PM NREMT) Analysis Performed At [facility] Signature Immunoglobulin G 1,360 669 - HP CONVERSION 1,529 mg/dL Specimen (Source) Anatomical Collection Method Collection Time Re ceived Time Location / / Volume Laterality 07/05/2005 3:14 PM NREMT Jarrett Weiner MD LAB_1 Performing Organization Address City/[facility] Code Phon e Number HP CONVERSION IgE Total (07/05/2005 3:14 PM NREMT) Analysis Performed At [facility] Signature Immunoglobulin E 30 0 - 180 HP CONVERSION IU/mL Comment: Interpretive data: TEST INFORMATION: Immunoglobulin E To convert to ng/mL, multiply IU/mL by 2 .4. Specimen (Source) Anatomical Collection Method Collection Time Re ceived Time Location / / Volume Laterality 07/05/2005 3:14 PM NREMT Jarrett Weiner MD LAB_1 Performing Organization Address City/State/ZIP Code Phon e Number HP CONVERSION IGM (07/05/2005 3:14 PM NREMT) Analysis Performed At [facility] Signature Immunoglobulin M 46 37 - 314 HP CONVERSION mg/dL Specimen (Source) Anatomical Collection Method Collection Time Re ceived Time Location / / Volume Laterality 07/05/2005 3:14 PM NREMT Jarrett Weiner MD LAB_1 Performing Organization Address City/State/ZIP Code Phon e Number HP CONVERSION Free T4 (07/05/2005 3:14 PM NREMT) athologist Signature Thyroxine, Free 1.4 0.8 - 1.5 HP CONVERSION ng/dL Specimen (Source) Anatomical Collection Method Collection Time Re ceived Time Location / / Volume Laterality 07/05/2005 3:14 PM NREMT Jarrett Weiner MD LAB_1 Performing Organization Address City/State/ZIP Code Phon e Number HP CONVERSION Thyroid Stimulating Hormone (07/05/2005 3:14 PM NREMT) athologist Signature Thyroid 1.09 0.20 - HP CONVERSION Stimulating 4.50 Hormone uIU/mL Specimen (Source) Anatomical Collection Method Collection Time Re ceived Time Location / / Volume Laterality 07/05/2005 3:14 PM NREMT Jarrett Weiner MD LAB_1 Performing Organization Address City/[facility]/ZIP Code Phon e Number HP CONVERSION Cardiolipin Antibodies (07/05/2005 3:14 PM NREMT) [facility] gist Method Time Signature Anticardiolipin IgG 13 HP CONVERS ION Antibody Comment: Interpretive data: REFERENCE INTERVAL: Anti-Cardiolipin IgG Ab ??Less than 15 GPL ........ Absent or N one Detected ??15 - 19 GPL ............. Inconclusiv e ??20 - 79 GPL ............. Moderate Po sitive ??80 GPL or greater ....... High Positi ve Results in the inconclusive range and po sitive results for IgM only, should be carefully interprete d. Most patients with antiphospholipid antibody syndrome (Br J Rheumatol 26:270-925 1357) have moderate or high l evels of cardiolipin antibodies and are positive for IgG only, or IgG and IgM. Anticardiolipin IgM Antibody 5 H P CONVERSION Comment: Interpretive data: REFERENCE INTERVALS: Anti-Cardiolipin Ig M ??Less than 12 MPL ........ Absent or n one detected ??12 - 19 MPL ............. Inconclusiv e ??20 - 79 MPL ............. Moderate po sitive ??80 MPL or greater ....... High positi ve Results in the inconclusive range and po sitive results for IgM only, should be carefully interprete d. Most patients with antiphospholipid antibody syndrome (Br J Rheumatol 26:[id number] 2337) have moderate or high l evels of cardiolipin antibodies and are positive for IgG only, or IgG and IgM. Specimen (Source) Anatomical Collection Method Collection Time Re ceived Time Location / / Volume Laterality 07/05/2005 3:14 PM NREMT Jarrett Weiner MD LAB_1 Performing Organization Address City/[facility] Code Phon e Number HP CONVERSION IgE, Milk (F2) (07/05/2005 3:14 PM NREMT) P athologist Signature Milk IgE <0.35 kU/L HP CONVERSION Comment: Class 0 (Negative <0.35) Specimen (Source) Anatomical Collection Method Collection Time Re ceived Time Location / / Volume Laterality 07/05/2005 3:14 PM NREMT Jarrett Weiner MD LAB_1 Performing Organization Address City/[facility] Phon e Number HP CONVERSION documented in this encounter Visit Diagnoses Not on filedocumented in this encounter Care Teams Hired Hand Relationship Specialty Start Date End Date Brisa Smith PA-C PCP - General 07/30/10 04/18/15 [address] [place] [address] documented as of this encounter
--- OUTSIDE RECORDS SUMMARY | 2022-01-31 07:18 | XMS_ITS | Encounter Summary ---
:1990 Author Organization [facility] Address [address], [place] [address] Care Team Providers Name Role Phone Brisa Smith PA-C Primary Care Provider Encounter Details Date Type Department Care Team Description 05/22/2005 PN Conversion Only [place] [facility] [address] Ellen Vieira [address] [address] [facility] [place] [address] [facility] [address] [place], [place] [address] Social History Tobacco Use Types Packs/Day Years Used Date Smoking Tobacco: Never Assessed Sex Assigned at Date Recorded Not on file documented as of this encounter Plan of Treatment Not on filedocumented as of this encounter Procedures Procedure Name Priority Date/Time Associated Diagnosis Comme nts STREP GROUP A Routine 05/22/2005 6:16 PM Results for this ANTIGEN TEST REVERBERATORY FURNACE SUPERVISOR procedure are i n the results section. BETA STREP FOLLOWUP Routine 05/22/2005 6:16 PM Re sults for this REVERBERATORY FURNACE SUPERVISOR procedure are i n the results section. documented in this encounter Results Strep Group A Antigen Test (05/22/2005 6:16 PM REVERBERATORY FURNACE SUPERVISOR) Analysis Performed At Patho logist Time Signature Strep Group A Negative Negative HP CONVERSION Antigen Test Comment: Culture to follow. Specimen (Source) Anatomical Collection Method Collection Time Re ceived Time Location / / Volume Laterality 05/22/2005 6:16 PM REVERBERATORY FURNACE SUPERVISOR Ellen Vieira PA-C LAB_1 Performing Organization Address City/State/ZIP Code Phon e Number HP CONVERSION Beta Strep Followup (05/22/2005 6:16 PM REVERBERATORY FURNACE SUPERVISOR) P athologist Signature Strep Screen SEE TEXT HP CONVERSION Comment: Patient: MINO POSADAS Rapid Strep Follow up Culture @ ? Collected: ?181 Source: Throat ?Processed: ?1818 ? 1V Final Report ------ ?1327 No beta hemolytic Strep group A isolated . @ = Rapid F/U Cult Performed at [address] [place], [place] ?[address] Specimen (Source) Anatomical Collection Method Collection Time Re ceived Time Location / / Volume Laterality 05/22/2005 6:16 PM REVERBERATORY FURNACE SUPERVISOR Ellen Vieira PA-C LAB_1 Performing Organization Address City/State/ZIP Code Phon e Number HP CONVERSION documented in this encounter Visit Diagnoses Not on filedocumented in this encounter Care Teams [employer] Senior [employer] Relationship Specialty Start Date End Date Brisa Smith PA-C PCP - General 07/30/10 04/18/15 [address] [place], [place] [address] documented as of this encounter
--- OUTSIDE RECORDS SUMMARY | 2022-01-31 07:18 | XMS_ITS | Encounter Summary ---
:1990 Author Organization [facility] Address [address], [place] [address] Care Team Providers Name Role Phone Brisa Smith PA-C Primary Care Provider Reason for Visit Reason Comments Other Encounter Details Date Type Department Care Team Description 04/04/2005 Telephone [employer] [facility] [place], Message Other [address] [place] [address] Social History Tobacco Use Types Packs/Day Years Used Date Smoking Tobacco: Never Assessed Sex Assigned at Date Recorded Not on file documented as of this encounter Progress Notes Lena Chiu - 04/04/2005 6:22 PM CST Phone Note filed by KIMBERLY Guerrier at 08/13/102299 Author: KIMBERLY Guerrier Service: (none) Author Type: Nurse Practitioner Filed: 08/13/102299 Note Time: 04/04/051821 Status: Signed Area Development Manager: KIMBERLY Guerrier (Nurse Practitioner) Please notify ALL labs Normal. CMV testing shows positive antibodies which shows that she's been exposed in the past, but No active infection. She has developed immunity to CMV. Based on current labs: There is no underlying infectious cause for her symptoms of fatigue, sore throat, nausea. (I did consult with Dr. Sevilla regarding this patient). I recommend that she try and get good sleep, eat healthy; may take a multi-vitamin as she is doing, but could stop the other herbal/zimbabwean products and see how she does. I recommend follow up in 1 month if she is still not improving or RTC sooner if symptoms worsen. letter sent by mail. Created on 04Apr2005 6:22pm by LENA CHIU Acknowledged by GENOVEVA JARQUIN on 7:18am On 05Apr2005 4:00pm GENOVEVA JARQUIN wrote: Left message for pt's mom Mari to call back. On 06Apr2005 3:21pm YEIMI RUSH wrote: Mom calling for and received above msg. E MACHINE FEEDER documented in this encounter Plan of Treatment Not on filedocumented as of this encounter Visit Diagnoses Not on filedocumented in this encounter Care Teams Die Stamper Relationship Specialty Start Date End Date Brisa Smith PA-C PCP - General 07/30/10 04/18/15 [address] [place] [address] documented as of this encounter
--- OUTSIDE RECORDS SUMMARY | 2022-01-31 07:18 | XMS_ITS | Encounter Summary ---
:1990 Author Organization [employer] Address [address] [place] [address] Care Team Providers Name Role Phone Brias Smith PA-C Primary Care Provider Encounter Details Date Type Department Care Team Description 06/25/2005 Office Visit [facility] Lena Wright, HOMICIDE SQUAD COMMANDING OFFICER, POTATO LOADER [address] [place] [address] [phone] (Wo rk) Social History Tobacco Use Types Packs/Day Years Used Date Smoking Tobacco: Never Assessed Sex Assigned at Date Recorded Not on file documented as of this encounter Last Filed Vital Signs Vital Sign Reading Time Taken Comments Blood Pressure 118/78 06/25/2005 8:09 AM INSULATOR APPRENTICE Pulse - - Temperature 36.3 ??C (97.3 ??F) 06/25/2005 8:09 AM INSULATOR APPRENTICE C: 36 .3 C Respiratory Rate - - Oxygen Saturation - - Inhaled Oxygen Concentration - - Weight 67.6 kg (148 lb 15.8 oz) 06/25/2005 8:09 AM INSULATOR APPRENTICE C: 67.6kg Height - - Body Mass Index - - documented in this encounter Progress Notes Lena Chiu - 06/25/2005 12:01 AM CST Progress Notes signed by KIMBERLY Guerrier at 06/27/05 6236 Author: KIMBERLY Guerrier Service: (none) Author Type: Nurse Practitioner Filed: 08/17/10 1145 Note Time: 06/25/05 0001 Status: Signed Music Producer: KIMBERLY Guerrier (Nurse Practitioner) Clinic Visit SUBJECTIVE: Hellen is a 14 year-old female who presents to clinic with her mother for follow up of a constellation of symptoms over the course of the past year, including intermittent sore throats and fatigue and lethargy, headaches, body aches. She had a recent a volleyball tournament and was wiped out the day after the tournament. She is missed school at times because of her recurrent symptoms. She was last seen for sore throat at the end of May 03. Her main concern is the ongoing fatigue. Sore throat intermittent and headache. States headache mainly over the forehead without light or noise sensitivity, no nausea. No visual changes. Describes the body aches is primarily and her legs and low back area. No specific joint pain Her mom recalls onset of these intermittent symptoms occurred after Hellen was diagnosed with pneumonia in November of 2003; she then had a facial rash diagnosed as herpes (herpes simplex versus herpes zoster) in 03/2004. They have sought the care of a chiropractor and she is remained on some multivitamins and a Wallisian herbal product. If she stopped these for any period time she seems to be worse and that's why she continues on these products. Reports exposure to binding dyer who was diagnosed with cytomegalovirus one week ago; they remain concerned about the potential for CMV infection. In February 2004, Hellen was negative for parvovirus, cytomegalovirus, negative mono screen, negative strep screen, normal CBC and TSH; negative Mary-Pardo; normal urine. Ferritin level at lower end of normal. Past Medical History: Pneumonia 2003, facial rash suspicious for herpes and 03/2004. History chickenpox as a child. T&A 1998. Adverse Drug Reactions: Penicillin, sulfa. Medications: Reviewed. See Medication List in LastWord. Family History: Rheumatoid arthritis and bursitis maternal grandmother; fibromyalgia maternal grandmother and maternal aunt. One family member had cytomegalovirus in the past. Social History: Lives with her mother and siblings, occasionally at her father's home. Her parents are . Is in high school, classes are going okay, she has gotten behind with some of her work when missing school. Smoking: Nonsmoker Alcohol: None. No illicit drugs. Sexually abstinent. Review of Systems: All systems were reviewed and found to be negative except as noted below. Reports no concerns for depression, she completes the pHQ-9 depression questionnaire today. Reports no adhenonia; does not feel down or depressed; reports trouble sleeping: Generally able to fall asleep and that may wake up three to four times per night averages nine hours of sleep per night; disrupted sleep has been occurring over the past couple months. No snoring. Unsure what is keeping her from sleeping well. Has tried Benadryl, it does not work, Benadryl makes her feel more active rather than tired. reports fatigue, appetite okay, weight stable. Reports eating three meals a day plus snacks when working out; reports good hydration. Reports good in self-esteem, no troubles concentrating or making decisions. No suicidal ideations. Family relationships going well. OBJECTIVE: Vital Signs: Reviewed in flowsheet charting of LastWord. An alert female, NAD. Quite disposition, flat affect. Good eye contact. Casually dressed. ?Skin soft warm dry.Eyes: Full EOM, PERRLA, without lesions or injection. Ears: Canals and TM's normal without lesions. Throat: Moist mucous Amembranes without lesions, erythema, or exudate. Neck: The neck was Bsupple, without masses, lymphadenopathy or tenderness. Respiratory: Normal Crespiratory effort. Lungs are clear with good breath sounds. Heart: RR Dwithout murmurs, rubs, or gallops. Abdomen: Soft nontender, bowel sounds Epresent, no masses, no organomegaly, no CVAT. Neurologic: grossly intact Fwithout deficits. Musculoskeletal: Reports tenderness to palpation on the following areas: parasternal areas second rib bilaterally; trapezius area bilaterally, low back area near the gluteus, lateral epicondylar area and medial aspects of both knees or the fat pad. These tender points would fit the criteria for fibromyalgia tender areas. PHQ-9 score 7 ASSESSMENT: 1. Constellation of symptoms including intermittent fatigue,sore throat, and body aches, headache, unclear etiology. PLAN: Check hemoglobin, ferritin, rheumatoid factor, LEONLIA, sed rate, Lyme titer, WBC, repeat parvovirus IgG and IgM, and cytomegalovirus IgG and IgM. Notify by letter form. Plan infectious disease consultation with Dr. Dawit Miller [facility]. Follow up in four weeks to recheck. For now continue symptomatic measures, adequate rest, healthy eating, activity as tolerates. Reviewed good sleep hygiene. Will try trazodone 50 mg one to two tabs q.h.s. p.r.n. insomnia. We also discussed her P. HQ 9 score of seven indicating mild depression, however she scores higher with the trouble sleeping and fatigue at this point. If her evaluation and workup with infectious disease is normal,, then consider chronic fatigue and fibromyalgia as possible etiology for her symptoms. Will plan to repeat pHQ9 at follow-up visit. Patient and her mother verbalize good understanding of the above plan.Tylenol or ibuprofen p.r.n. pain. TT: 45 minutes, CT 40 minutes face to face counseling and per plan. LATOR APPRENTICE documented in this encounter Plan of Treatment Not on filedocumented as of this encounter Visit Diagnoses Not on filedocumented in this encounter Care Teams Campus Receptionist Relationship Specialty Start Date End Date Brisa Smith PA-C PCP - General 07/30/10 04/18/15 [address] [place] [place] [address] documented as of this encounter
--- OUTSIDE RECORDS SUMMARY | 2022-01-31 07:18 | XMS_ITS | Encounter Summary ---
:1990 Author Organization [facility] Address [address] [place] [address] Care Team Providers Name Role Phone Brisa Smith PA-C Primary Care Provider Encounter Details Date Type Department Care Team Description 03/25/2005 PN Conversion Only HELENA CONVERSION Lena Chiu, BRAZER FURNACE, [address] [place] [address] [address] [phone] (Wo rk) Social History Tobacco Use Types Packs/Day Years Used Date Smoking Tobacco: Never Assessed Sex Assigned at Date Recorded Not on file documented as of this encounter Plan of Treatment Not on filedocumented as of this encounter Procedures Procedure Name Priority Date/Time Associated Comments Diagnosis PARVOVIRUS B19 IGG & IGM Routine 03/25/2005 2:38 Results for this ANTIBODIES PM SHEAR GRINDER OPERATOR HELPER procedure are i n the results section. ISA ALTAMIRANO VIRUS PANEL Routine 03/25/2005 2:38 Results for this PM SHEAR GRINDER OPERATOR HELPER procedure are i n the results section. CYTOMEGALOVIRUS IGM Routine 03/25/2005 2:38 Resul ts for this ANTIBODY PM SHEAR GRINDER OPERATOR HELPER procedure are i n the results section. CYTOMEGALOVIRUS IGG Routine 03/25/2005 2:38 Resul ts for this ANTIBODY PM SHEAR GRINDER OPERATOR HELPER procedure are i n the results section. URINALYSIS COMPLETE Routine 03/25/2005 2:38 Resul ts for this PM SHEAR GRINDER OPERATOR HELPER procedure are i n the results section. MONONUCLEOSIS SCREEN Routine 03/25/2005 2:38 Resu lts for this PM SHEAR GRINDER OPERATOR HELPER procedure are i n the results section. COMPLETE BLOOD Routine 03/25/2005 2:38 Results fo r this COUNT-W/DIFF PM SHEAR GRINDER OPERATOR HELPER procedure are i n the results section. documented in this encounter Results Complete Blood Count-W/Diff (03/25/2005 2:38 PM SHEAR GRINDER OPERATOR HELPER) [facility] Method Time Signature White Blood Cell 5.7 4.5 - 13.0 HP CONVERSIO N Count K/cmm Red Blood Cell 4.95 4.10 - HP CONVERSION Count 5.10 m/cmm Hemoglobin 14.7 12.0 - HP CONVERSION 16.0 gm/dL Hematocrit 42.5 36.0 - HP CONVERSION 46.0 % Mean Corpuscular 85.8 78.0 - HP CONVERSION Volume 100.0 fl Mean Corpuscular 29.7 24.0 - HP CONVERSION Hemoglobin 34.0 pg Mean Corpuscular 34.6 32.0 - HP CONVERSION Hemoglobin Conc 36.5 gm/dL [place] RDW 12.2 11.0 - HP CONVERSION 15.0 % Platelet Count 253 150 - 450 HP CONVERSION k/cmm Differential Auto-Dif No normal HP CONVERSION Verify range Neutrophils 2.5 K/cmm HP CONVERSION Absolute Count Neutrophil 43.7 % HP CONVERSION Lymphocyte % 41.2 % HP CONVERSION Monocyte 7.6 % HP CONVERSION Eosinophil 6.8 % HP CONVERSION Basophil % 0.7 % HP CONVERSION Specimen (Source) Anatomical Collection Method Collection Time Re ceived Time Location / / Volume Laterality 03/25/2005 2:38 PM SHEAR GRINDER OPERATOR HELPER Lena Chiu APRN, CNP LAB_1 Performing Organization Address City/[facility]/ZIP Code Phon e Number HP CONVERSION Mononucleosis Screen (03/25/2005 2:38 PM SHEAR GRINDER OPERATOR HELPER) [facility] Method Time Signature Infectious Negative Negative HP CONVERSION Mononucleosis Screen Specimen (Source) Anatomical Collection Method Collection Time Re ceived Time Location / / Volume Laterality 03/25/2005 2:38 PM SHEAR GRINDER OPERATOR HELPER eLna Chiu APRN, CNP LAB_1 Performing Organization Address City/State/ZIP Code Phon e Number HP CONVERSION Urinalysis Complete (03/25/2005 2:38 PM SHEAR GRINDER OPERATOR HELPER) [facility] Method Time Signature Glucose, Negative Neg-Trac HP CONVERSION Qualitative U Protein Urine Negative Neg-Trac HP CONVERSION Ketones Negative Negative HP CONVERSION U BILI Negative Negative HP CONVERSION U Specific 1.025 1.005 - 25 HP CONVERSION [place] Blood Urine Negative Negative HP CONVERSION pH Urine 6.5 4.5 - 7.5 HP CONVERSION Urobilinogen Negative 0.2 - 1.0 HP CONVERSION Urine Nitrite Urine Negative Negative HP CONVERSION Leukocyte Negative Negative HP CONVERSION Esterase Urine White Blood 0-2/HPF 0 - 3 HP CONVERSION Cells Urine Red Blood Cells Negative 0 - 2 HP CONVERSION Urine Bacteria Urine N/A None HP CONVERSION Epithelial Cells Few Few /HPF HP CONVERSION Specimen (Source) Anatomical Collection Method Collection Time Re ceived Time Location / / Volume Laterality 03/25/2005 2:38 PM SHEAR GRINDER OPERATOR HELPER Lena Chiu BRAZER FURNACE, ETHANOL OPERATIONS MANAGER LAB_1 Performing Organization Address City/State/ZIP Code Phon e Number HP CONVERSION Isa Altamirano Virus Panel (03/25/2005 2:38 PM SHEAR GRINDER OPERATOR HELPER) athologist Signature Isa-Altamirano 0.35 HP CONVERSION Vca IgG Isa-Altamirano 0.04 0.00 - HP CONVERSION Vca IgM 0.99 Isa Altamirano 0.37 HP CONVERSION Virus Ab To Nuclear Ag,IgG EBV Virus AB to 0.25 0.00 - HP CONVERSION Early (d) AG 0.99 IgG Comment: This pattern of the EBV Antibodies is co nsistent with no evidence of primary or past EBV infectio n. Susceptible to infection with EBV. If Infectious mononu cleosis is highly suspected, suggest repeat testing in 2-4 weeks. REFERENCE INTERVAL: EBV Ab to Viral Caps id Ag, IgG; Nuclear ?Ag, IgG an d Early (D) Ag, IgG 0.90 IV or less.......Negative - No sig nificant level of ? detect able IgG antibody to EBV. 0.91-0.99 IV..........Equivocal - Repea t testing in 10-14 ? days m ay be helpful. 1.00 IV or greater....Positive - IgG an tibody to EBV ? detect ed, which may indicate a ? curren t or past EBV infection. REFERENCE INTERVAL: ??EBV Ab to Viral Ca psid Ag, IgM 0.90 IV or less.......Negative - No sig nificant level of ? detect able IgM antibody to EBV Viral ? Capsid Antigen. 0.91-0.99 IV..........Equivocal - Repea t testing in - ? days m ay be helpful. 1.00 IV or greater....Positive - IgM an tibody to EBV Viral ? Capsid Antigen detected, which may ? indica te a current or recent EBV ? infect ion. Specimen (Source) Anatomical Collection Method Collection Time Re ceived Time Location / / Volume Laterality 03/25/2005 2:38 PM SHEAR GRINDER OPERATOR HELPER Lena Chiu APRN, ETHANOL OPERATIONS MANAGER LAB_1 Performing Organization Address City/State/ZIP Code Phon e Number HP CONVERSION Parvovirus B19 Igg & Igm Antibodies (03/25/2005 2:38 PM SHEAR GRINDER OPERATOR HELPER) athologist Signature Parvovirus B19 0.28 HP CONVERSION IgG Antibody Comment: Interpretive data: [...] the same time. Parvovirus B19 IgM Antibody 0.11 HP CONVERSION Comment: Interpretive data: REFERENCE INTERVAL: [...] ceived Time Location / / Volume Laterality 03/25/2005 2:38 PM SHEAR GRINDER OPERATOR HELPER Lena Chiu APRN, ROSA LAB_1 Performing Organization Address [facility] Phon e Number HP CONVERSION Cytomegalovirus IgG Antibody (03/25/2005 2:38 PM SHEAR GRINDER OPERATOR HELPER) [facility] Method Time Signature Cytomegalovirus IgG 36 AU HP CONVERS ION Antibody Comment: <4.0...Negative: [...] ceived Time Location / / Volume Laterality 03/25/2005 2:38 PM SHEAR GRINDER OPERATOR HELPER Lena Chiu APRN, ROSA LAB_1 Performing Organization Address [facility] Phon e Number HP CONVERSION Cytomegalovirus IgM Antibody (03/25/2005 2:38 PM SHEAR GRINDER OPERATOR HELPER) [facility] gist Method Time Signature Cytomegalovirus IgM 0.07 AU [...] ceived Time Location / / Volume Laterality 03/25/2005 2:38 PM SHEAR GRINDER OPERATOR HELPER Lena Chiu APRN, ETHANOL OPERATIONS MANAGER LAB_1 Performing Organization Address City/State/ZIP Code Phon e Number HP CONVERSION documented in this encounter Visit Diagnoses Not on filedocumented in this encounter Care Teams Neurology Specialist Relationship Specialty Start Date End Date Brisa Smith PA-C PCP - General 07/30/10 04/18/15 [address] [place] [address] documented as of this encounter
--- OUTSIDE RECORDS SUMMARY | 2022-01-31 07:19 | XMS_ITS | Encounter Summary ---
:1990 Author Organization [facility] Address [address], [place] [address] Care Team Providers Name Role Phone Brisa Smith PA-C Primary Care Provider Encounter Details Date Type Department Care Team Description 01/04/2004 PN Conversion Only HELENA CONVERSION Lena Chiu, CLAIMS SUPPORT SPECIALIST, [address] [address] [address] [phone] (Wo rk) Social History Tobacco Use Types Packs/Day Years Used Date Smoking Tobacco: Never Assessed Sex Assigned at Date Recorded Not on file documented as of this encounter Plan of Treatment Not on filedocumented as of this encounter Procedures Procedure Name Priority Date/Time Associated Diagnosis Comme nts COMPLETE BLOOD Routine 01/04/2004 11:20 AM Result s for this COUNT W/3DIFF CDT procedure are in the results section. documented in this encounter Results Complete Blood Count W/3Diff (01/04/2004 11:20 AM CDT) [facility] Method Time Signature White Blood Cell 4.8 4.5 - 13.0 HP CONVERSIO N Count K/cmm Red Blood Cell 4.95 4.10 - HP CONVERSION Count 5.10 m/cmm Hemoglobin 13.8 12.0 - HP CONVERSION 16.0 gm/dL Hematocrit 41.9 36.0 - HP CONVERSION 46.0 % Mean Corpuscular 84.7 78.0 - HP CONVERSION Volume 100.0 fl Mean Corpuscular 27.9 24.0 - HP CONVERSION Hemoglobin 34.0 pg Mean Corpuscular 32.9 32.0 - HP CONVERSION Hemoglobin Conc 36.5 gm/dL [place] RDW 12.6 11.0 - HP CONVERSION 15.0 % Platelet Count 261 150 - 450 HP CONVERSION k/cmm Differential Auto-Dif No normal HP CONVERSION Verify range Granulocyte 2.2 K/u HP CONVERSION Absolute Comment: Absolute granulocytes=combined absolute number of neutrophils, eosinophils and basophils. % Granulocytes 46.4 % HP CONVERSION Comment: Percent Granulocytes=combined percentage of neutrophils, eosinophils and basophils. Lymphocyte % 47.9 % HP CONVERSION Monocyte 5.7 % HP CONVERSION Comment: See physician copy for explanat ion of granulocyte # and % values. Specimen (Source) Anatomical Collection Method Collection Time Re ceived Time Location / / Volume Laterality 01/04/2004 11:20 AM CDT Lena Chiu APRN, ROSA LAB_1 Performing Organization Address City/State/ZIP Code Phon e Number HP CONVERSION documented in this encounter Visit Diagnoses Not on filedocumented in this encounter Care Teams Dump Grounds Checker Relationship Specialty Start Date End Date Brisa Smith PA-C PCP - General 07/30/10 04/18/15 [address] [place] [address] documented as of this encounter
--- OUTSIDE RECORDS SUMMARY | 2022-01-31 07:19 | XMS_ITS | Clinical Summary ---
:1990 Author Organization [facility] Address [address] [place] [place] [address] Care Team Providers Name Role Phone No Ref-Primary, Physician Primary Care Provider [phone] Allergies Active Allergy Reactions Severity Noted Date Comments Penicillins 06/30/2002 PN: LW Reaction : Rash, Generalized Sulfa Drugs 06/30/2002 PN: LW Reaction : Rash, Generalized Encounters Date Type Specialty Care Team Description 12/18/2021 Office Visit Maternal and Juan Luis Chirinos Pregnanc y resulting Loreta Doe MD from in vitro fertilization i n second trimeste r (Primary Dx) 12/18/2021 Hospital Encounter Radiology. Juan Luis Chirinos Pregnanc y resulting MD Nader from in vitro fertilization i n second trimeste r 12/18/2021 Travel 11/20/2021 Office Visit Maternal and Benny, Apr il resulting Medicine Juan Luis Chirinos from in vitro MD Nader fertilization i n second trimeste r (Primary Dx) 11/20/2021 Hospital Encounter Radiology. Benny, Apr il related Juan Luis Chirinos condition, ant epartum MD Nader 11/20/2021 Travel 11/13/2021 PRE VISIT Maternal and Argenis Baron (L2- IVF) Medicine Leena RN 11/01/2021 Transcribe Orders Maternal and Benny, July P regnancy related Medicine condition, ante (Primary Dx) from Last 3 Months Social History Tobacco Use Types Packs/Day Years Used Date Never Assessed Estimated Date of Delivery Comments Yes 04/18/2022 Based on Est. Date o f Conception Sex Assigned at Date Recorded Not on file Last Filed Vital Signs Vital Sign Reading Time Taken Comments Blood Pressure 127/90 11/16/2018 3:40 AM CDT Pulse 70 11/16/2018 3:40 AM CDT Temperature 36.8 ??C (98.2 ??F) 11/16/2018 3:40 AM CDT Respiratory Rate 18 11/16/2018 3:40 AM CDT Oxygen Saturation 99% 11/16/2018 3:40 AM CDT Inhaled Oxygen Concentration - - Weight - - Height - - Body Mass Index - - Plan of Treatment Health Maintenance Due Date Last Done Comments ADVANCE CARE PLANNING 1990 ANNUAL REVIEW OF HM ORDERS 1989 PREVENTIVE CARE VISIT 1989 COVID-19 Vaccine (#1) 03/09/1990 HIV SCREENING 2004 HEPATITIS C SCREENING 09/07/2007 PAP 2010 DTAP/TDAP/TD IMMUNIZATION (3 2017 09/07/2007, - Td or Tdap) 10/15/2001 PHQ-2 (once per calendar 04/28/2021 year) MATERNAL SCREENING 10/25/2021 INFLUENZA VACCINE (#1) 2021 03/18/2019 OBGCT (OB) 12/27/2021 REPEAT ANTIBODY SCREEN (OB) 01/24/2022 HEPATITIS B IMMUNIZATION Completed 06/23/2002, 11/23/2001, 10/15/2001 MENINGITIS IMMUNIZATION Completed 09/07/2007, 09/07/2007 IPV IMMUNIZATION Aged Out No longer eligi ble based on patient's age to complete this to pic Pneumococcal Vaccine: Aged Out No longer eligible based Pediatrics (0 to 5 Years) and on patient's age to At-Risk Patients (6 to 64 comple te this topic Years) Procedures Procedure Name Priority Date/Time Associated Diagnosis Comme nts [facility] READ SCREENING Routine 12/18/2021 10:02 resultin g Results for this ECHO PENG AM CDT from in vitro proced ure are in fertilization in the results second trimester section. [facility] US COMPREHENSIVE Routine 11/20/2021 11:00 relate d Results for this SINGLE AM CDT condition, antepartum proced ure are in the results section. from Last 3 Months Results [facility] Read Screen Echo Single (12/18/2021 10:02 AM CDT) Anatomical Region Laterality Modality Ultrasound Specimen (Source) Anatomical Collection Method Collection Time Re ceived Time Location / / Volume Laterality 12/18/2021 9:18 AM CDT Impressions 12/18/2021 10:33 AM CDT IMPRESSION Normal echo for this gestational a ge. On any echocardiography one cannot rule out small VSD, ASD and or Coarctation of the aorta. Narrative 12/18/2021 10:33 AM CDT Echo Pat. Name: MINO SIGALA Study Date: 0 12/18/2021 9:18am Pat. NO: [id number] Referring ??MD: SPENCER VILLAGOMEZ Site: [facility] Hvac Mechanical Engineer: Nancie Bailey RD MS : 1990 Age: 31 INDICATION In vitro fertilization METHOD Grayscale imaging, Doppler echocardiogra phy color flow velocity mapping and Doppler echocardiography pulsed wave and or wave with spectral display were used to assess cardiac structures for wilner goode [facility] echocardiogram. View: Sufficient Peng . Number of fetuses: 1 DATING ? Date ?Details ?Gest. age ?JOMAR Conception ? Conception: IVF Embryo transfer ?07/31/2021 ?IVF / ET: 5 d ?22 w + 5 d ? 04/18/2022 Prior assessment ? 5/ 08/2021 ?GA: 7 w + 2 d ? 23 w + 0 d ? 04/16/2022 Assigned dating ?Dating performed on 12/18/2021, based on the IVF / ET date ?22 w + 5 d ? 04/18/2022 GENERAL EVALUATION Cardiac activity present. FHR 150 bpm. movements present. Presentation breech. Placenta Right lateral. Umbilical cord 3 vessel cord. Amniotic fluid Amount of AF: normal. ECHOCARDIOGRAM 2D Echo (Qualitatively): Situs ?situs solitus (normal) Cardiac position ? levocardia (normal) Cardiac axis ?normal Cardiac size ?normal (approx. 1/3 of thoracic area) Cardiac Rhythm ? regular (normal) 4-chamber view ?normal LVOT view ? normal RVOT view ?normal 3-vessel view ? normal 9-hkpxni-bfybwxd view ? normal High short axis view ? normal Aortic arch view ? normal Ductal arch view ?normal Bicaval view ? normal SVC ? normal IVC ? normal AV connections ? Normal alignment VA connections ? Normal size and morphology Pulmonary veins ?Two or more pulmonary veins are identified entering the left atrium. Atria ? Atria approximately equal in size Atrial septum ? Normal size and morphology Foramen ovale ? Normal, patent foramen ovale Ventricles ?Ventricles approximately equal in size Ventricular septum ? Ventricular septum appears intact (apex to crux) Tricuspid valve ? No significant regurgitation seen Mitral valve ?No significant regurgitation seen Pulmonary valve ? Normal size and morphology Aortic valve ?Normal size and morphology Cross-over gr. arteries ?Normal 4 chamber view with normal axis and situs. Normal relationship of the great arteries. Main PA ?The main pulmonary artery can be seen bifurcating into the arterial duct and the right pulmonary artery Pulmonary trunk ?Normal size and morphology Aortic root ? Normal size and morphology Ascending aorta ?Normal size and morphology Descending aorta ? Normal size and morphology Ductus venosus ? Normal Umbilical vein ?Normal Umbilical arteries ? Normal Linear insertion of AV valves ?no Pericardial effusion ? no Color Doppler (Qualitatively): 4-chamber view diast ?Normal LVOT view ? Normal RVOT view ?Normal 3-vessel view ? Normal 3-vessel - trachea view ? Normal Valvular regurgitation ?no IVC inflow into RA ? normal ? LVOT / Aortic valve flow ?normal SVC inflow into RA ?normal ? Flow in pulmonary arteries ? normal Pulm. veins inflow into LA ?normal ? Flow in ductus arteriosus ? normal Flow through foramen ovale ?right-left shunt (normal) ? Flow in aortic arch ? normal Tricuspid valve flow ?normal ? Flow in descending aorta ? normal Mitral valve flow ? normal ? Flow in ductus venosus ? normal Ventricular septum ?normal ? Flow in the umbilical arteries ?normal RVOT / Pulmonary valve flow ?normal 2D and M-Mode Measurements: Cardiac Chambers 2D Mode: TV annulus diast ? 6.6 ?mm ? MV annulus diast ?5.1 ?mm PV annulus syst ?4 .1 ? mm ? AoV annulus syst ? 4.0 ?mm MV annulus diast / TV ?0.77 ? AoV annulus syst / PV ?0.98 annulus diast ?annulus syst Heart Z-Scores: ? Z- GA ? Zscore by TV annulus diast ? 6.6 ?mm ? -0.03 ? Parker MV annulus diast ?5.1 ?mm ? -1.98 ? Parker PV annulus syst ? 4.1 ?mm ?-0.04 ?Parker AoV annulus syst ? 4.0 ?mm ?1.25 ?Keith RECOMMENDATION We discussed the findings on today's ult rasound with the patient. No additional echo is recommended. Return to primary provider for continued care. Thank-you for the opportunity to partici harper in the care of this patient. If you have questions regarding today's evaluation or if we can be of further service, please contact the [facility]. anomalies may be present but not detected Procedure Note Juan Luis Chirinos MD - 12/18/2021Forma tting of this note might be different from the original. Echo Pat. Name:Geovanni SIGALA Date:11/27 9:18am Pat. NO: [id number] MD:JULY ERA NESS [facility]Nancie Bailey RDMS :1990Age:31 INDICATION In vitro fertilization METHOD Grayscale imaging, Doppler echocardiogra phy color flow velocity mapping and Doppler echocardiography pulsed wave and or wave with spectral display were used to assess cardiac structures for wilner mahendraBennys [facility] echocardiogram. View: Sufficient Peng . Number of fetuses: 1 DATING Date Details Gest. age JOMAR Conception Conception: IVF Embryo transfer 07/31/2021 IVF / ET: 5 d 22 w + 5 d 04/18/2022 Prior assessment 08/30/2021 GA: 7 w + 2 d 23 w + 0 d 04/16/2022 Assigned dating Dating performed on 11/27, based on the IVF / ET date 22 w + 5 d 04/18/2022 GENERAL EVALUATION Cardiac activity present. FHR 150 bpm. movements present. Presentation breech. Placenta Right lateral. Umbilical cord 3 vessel cord. Amniotic fluid Amount of AF: normal. ECHOCARDIOGRAM 2D Echo (Qualitatively): Situs situs solitus (normal) Cardiac position levocardia (normal) Cardiac axis normal Cardiac size normal (approx. 1/3 of [facility]) Cardiac Rhythm regular (normal) 4-chamber view normal LVOT view normal RVOT view normal 3-vessel view normal 0-atsqko-bwsiwuo view normal High short axis view normal Aortic arch view normal Ductal arch view normal Bicaval view normal SVC normal IVC normal AV connections Normal alignment VA connections Normal size and morpholog y Pulmonary veins Two or more pulmonary ve ins are identified entering the left atrium. Atria Atria approximately equal in size Atrial septum Normal size and morpholog y Foramen ovale Normal, patent foramen ova le Ventricles Ventricles approximately equ al in size Ventricular septum Ventricular septum ap pears intact (apex to crux) Tricuspid valve No significant regurgit ation seen Mitral valve No significant regurgitati on seen Pulmonary valve Normal size and morpholo gy Aortic valve Normal size and morphology Cross-over gr. arteries Normal 4 chamber view with normal axis and situs. Normal relationship of the great arteries. Main PA The main pulmonary artery can b e seen bifurcating into the arterial duct and the right pulmonary artery Pulmonary trunk Normal size and morpholo gy Aortic root Normal size and morphology Ascending aorta Normal size and morpholo gy Descending aorta Normal size and morphol ogy Ductus venosus Normal Umbilical vein Normal Umbilical arteries Normal Linear insertion of AV valves no Pericardial effusion no Color Doppler (Qualitatively): 4-chamber view diast Normal LVOT view Normal RVOT view Normal 3-vessel view Normal 3-vessel - trachea view Normal Valvular regurgitation no IVC inflow into RA normal LVOT / Aortic valve flow normal SVC inflow into RA normal Flow in pulmon amena arteries normal Pulm. veins inflow into LA normal Flow in ductus arteriosus normal Flow through foramen ovale right-left sh unt (normal) Flow in aortic arch normal Tricuspid valve flow normal Flow in desc ending aorta normal Mitral valve flow normal Flow in ductus venosus normal Ventricular septum normal Flow in the um bilical arteries normal RVOT / Pulmonary valve flow normal 2D and M-Mode Measurements: Cardiac Chambers 2D Mode: TV annulus diast 6.6 mm MV annulus mayen t 5.1 mm PV annulus syst 4.1 mm AoV annulus syst 4.0 mm MV annulus diast / TV 0.77 AoV annulus syst / PV 0.98 annulus diast annulus syst Heart Z-Scores: Z- GA Zscore by TV annulus diast 6.6 mm -0.03 Schneide r MV annulus diast 5.1 mm -1.98 Leidyide r PV annulus syst 4.1 mm -0.04 Parker AoV annulus syst 4.0 mm 1.25 Parker RECOMMENDATION We discussed the findings on today's ult rasound with the patient. No additional echo is recommended. Return to primary provider for continued care. Thank-you for the opportunity to partici leroy in the care of this patient. If you have questions regarding today's evaluation or if we can be of further service, please contact the [facility]. anomalies may be present but not detected IMPRESSION Normal echo for this gestational a ge. On any echocardiography one cannot rule out small VSD, ASD and or Coarctation of the aorta. Juan Luis Chirinos MD [facility] US ORDERABLES [facility] US Comprehensive Single (11/20/2021 11:00 AM CDT) Anatomical Region Laterality Modality Ultrasound Specimen (Source) Anatomical Collection Method Collection Time Re ceived Time Location / / Volume Laterality 11/20/2021 10:05 AM CDT Impressions 11/20/2021 10:58 AM CDT IMPRESSION 1) Sonographic biometry agrees with gest ational age predicted by assigned JOMAR. 2) The anatomy was adequately visu alized and appeared normal. 3) None of the anomalies commonly detect ed by ultrasound were evident. 4) No markers for aneuploidy seen. Narrative 11/20/2021 10:58 AM CDT Comprehensive Pat. Name: MINO SIGALA Study Date: 0 11/20/2021 10:05am Pat. NO: [id number] Referring ??: SPENCER VILLAGOMEZ Site: [facility] Hvac Mechanical Engineer: Anitha Love RDMS : 1990 Age: 31 INDICATION In Vitro Fertilization METHOD Transabdominal ultrasound examination. V iew: Sufficient Peng . Number of fetuses: 1 DATING ? Date ?Details ?Gest. age ?JOMAR Conception ? Conception: IVF Embryo transfer ?07/31/2021 ?IVF / ET: 5 d ?18 w + 5 d ? 04/18/2022 Prior assessment ? 5/ 08/2021 ?GA: 7 w + 2 d ? 19 w + 0 d ? 04/16/2022 U/S ? 11/20/2021 ? based upon AC, BPD, Femur, HC ? 19 w + 2 d ? 04/14/2022 Assigned dating ?Dating performed on 11/20/2021, based on the IVF / ET date ?18 w + 5 d ? 04/18/2022 GENERAL EVALUATION Cardiac activity present. FHR 148 bpm. movements present. Presentation cephalic. Placenta Bilobed placenta, posterior/ant erior wrapping right lateral . Umbilical cord 3 vessel cord. Amniotic fluid MVP 4.7 cm. BIOMETRY Main Biometry: BPD ?44.8 ?mm ? 19w 4d ?Hadlock OFD ?57.7 ?mm ? 18w 6d ?Nicolaides HC ?164.1 ?mm ?19w 1d ?Hadlock Cerebellum tr ?19.1 ? mm ?18w 4d ?Nicolaides AC ?148.8 ?mm ?20w 1d ?88% ?Hadlock Femur ?27.0 ? mm ?18w 2d ?Hadlock Humerus ?26.5 ?mm ? 18w 3d ?Ramon Weight Calculation: EFW ? 282 ? g ? 76% ?Hadlock EFW (lb,oz) ? 0 lb 10 ? oz EFW by ?[facility][1] ([id number]) Head / Face / Neck Biometry: Real Estate Accountant ? 5.8 ? mm CM ?5.0 ? mm Nasal bone ? 5.8 ? mm Nuchal fold ? 3.6 ? mm ANATOMY The following structures appear normal: Head / Neck ? Cranium. Head size. Head shape. Lateral ventricles. Choroid plexus. Midline falx. Cavum septi pellucidi. Cerebellum. Cisterna magna. ? Parenchyma. Thalami. Vermis. ? Neck. Nuchal fold. Face ? Lips. Profile. Nose. Maxilla. Mandible. Orbits. Lens. Heart / Thorax ?4-chamber view. RVOT view. LVOT view. Situs. Aortic arch view. Bicaval view. Ductal arch view. Superior vena cava. Inferior vena cava. 3-vessel ? view. 9-rqjnda-yohhzbz view. Cardiac position. Cardiac size. Cardiac rhythm. ? Right lung. Left lung. Diaphragm. Abdomen ? Abdominal wall. Cord insertion. Stomach. Kidneys. Bladder. Liver. Bowel. Genitals. Spine ?Cervical spine. Thoracic spine. Lumbar spine. Sacral spine. Extremities / Skeleton ?Rig ht arm. Right hand. Left arm. Left hand. Right leg. Right foot. Left leg. Left foot. MATERNAL STRUCTURES Cervix ?Visualized ? Appearance: Appears Closed ? Cervical length 45.5 mm Right Ovary ?Visualized Left Ovary ?Visualized RECOMMENDATION We discussed the findings on today's ult rasound with the patient. We have scheduled the patient to return to [facility] in 4 weeks for a echo due to IVF conception. For IVF conception we recommend that you assess growth at 32 weeks and begin weekly testing at 36 weeks. Return to primary provider for continued care. Thank-you for the opportunity to partici leroy in the care of this patient. If you have questions regarding today's evaluation or if we can be of further service, please contact the [facility]. anomalies may be present but not detected Procedure Note Juan Luis Chirinos MD - 12/18/2021Forma tting of this note might be different from the original. Comprehensive Pat. Name:Geovanni SIGALA Date:10/27 10:05am Pat. NO: [id number] MD:July [facility] Sheriff :1990Age:31 INDICATION In Vitro Fertilization METHOD Transabdominal ultrasound examination. V iew: Sufficient Peng . Number of fetuses: 1 DATING Date Details Gest. age JOMAR Conception Conception: IVF Embryo transfer 07/31/2021 IVF / ET: 5 d 18 w + 5 d 04/18/2022 Prior assessment 08/30/2021 GA: 7 w + 2 d 19 w + 0 d 04/16/2022 U/S 11/20/2021 based upon AC, BPD, Femur, HC 19 w + 2 d 04/14/2022 Assigned dating Dating performed on 10/27, based on the IVF / ET date 18 w + 5 d 04/18/2022 GENERAL EVALUATION Cardiac activity present. FHR 148 bpm. movements present. Presentation cephalic. Placenta Bilobed placenta, posterior/ant erior wrapping right lateral . Umbilical cord 3 vessel cord. Amniotic fluid MVP 4.7 cm. BIOMETRY Main Biometry: BPD 44.8 mm 19w 4d Hadlock OFD 57.7 mm 18w 6d Nicolaides HC 164.1 mm 19w 1d Hadlock Cerebellum tr 19.1 mm 18w 4d Nicolaides AC 148.8 mm 20w 1d 88% Hadlock Femur 27.0 mm 18w 2d Hadlock Humerus 26.5 mm 18w 3d Ramon Weight Calculation: EFW 282 g 76% Hadlock EFW (lb,oz) 0 lb 10 oz EFW by Hadlock ([id number]) Head / Face / Neck Biometry: Real Estate Accountant 5.8 mm CM 5.0 mm Nasal bone 5.8 mm Nuchal fold 3.6 mm ANATOMY The following structures appear normal: Head / Neck Cranium. Head size. Head sha pe. Lateral ventricles. Choroid plexus. Midline falx. Cavum septi pellucidi. Cerebellum. Cisterna magna. Parenchyma. Thalami. Vermis. Neck. Nuchal fold. Face Lips. Profile. Nose. Maxilla. Ronda ble. Orbits. Lens. Heart / Thorax 4-chamber view. RVOT view . LVOT view. Situs. Aortic arch view. Bicaval view. Ductal arch view. Superior vena cava. Inferior vena cava. 3-vessel view. 6-jdtauh-rljqupw view. Cardiac po sition. Cardiac size. Cardiac rhythm. Right lung. Left lung. Diaphragm. Abdomen Abdominal wall. Cord insertion. Stomach. Kidneys. Bladder. Liver. Bowel. Genitals. Spine Cervical spine. Thoracic spine. Rebecca mbar spine. Sacral spine. Extremities / Skeleton Right arm. Right hand. Left arm. Left hand. Right leg. Right foot. Left leg. Left foot. MATERNAL STRUCTURES Cervix Visualized Appearance: Appears Closed Cervical length 45.5 mm Right Ovary Visualized Left Ovary Visualized RECOMMENDATION We discussed the findings on today's [facility] rasound with the patient. We have scheduled the patient to return to [facility] in 4 weeks for a echo due to IVF conception. For IVF conception we recommend that you assess growth at 32 weeks and begin weekly testing at 36 weeks. Return to primary provider for continued care. Thank-you for the opportunity to particmanoj harper in the care of this patient. If you have questions regarding today's evaluation or if we can be of further service, please contact the [facility]. anomalies may be present but not detected IMPRESSION 1) Sonographic biometry agrees with gest ational age predicted by assigned JOMAR. 2) The anatomy was adequately visu alized and appeared normal. 3) None of the anomalies commonly detect ed by ultrasound were evident. 4) No markers for aneuploidy seen. July Benny [facility] US ORDERABLES from Last 3 Months Insurance Payer Benefit Plan / Subscriber ID Effective Dates Phone Addre ss Type Group [facility] auag1959 2019-Present [facility] [address] [id number] [place] [address] Care Teams Oracle Technical Architect Relationship Specialty Start Date End Date No Ref-Primary, Physician PCP - General 11/16/18
--- OUTSIDE RECORDS SUMMARY | 2022-01-31 07:19 | XMS_ITS | Encounter Summary ---
:1990 Author Organization [facility] Address [address], [place] [address] Care Team Providers Name Role Phone Brisa Smith PA-C Primary Care Provider Encounter Details Date Type Department Care Team Description 07/10/2004 PN Conversion Only [facility] [address] [address] [address] [place] [address] Social History Tobacco Use Types Packs/Day Years Used Date Smoking Tobacco: Never Assessed Sex Assigned at Date Recorded Not on file documented as of this encounter Plan of Treatment Not on filedocumented as of this encounter Visit Diagnoses Not on filedocumented in this encounter Care Teams Principal Statistical Scientist Relationship Specialty Start Date End Date Brisa Smith PA-C PCP - General 07/30/10 04/18/15 [address] [place], [place] [address] documented as of this encounter
--- OUTSIDE RECORDS SUMMARY | 2022-01-31 07:19 | XMS_ITS | Encounter Summary ---
:1990 Author Organization [facility] Address [address], [place] [address] Care Team Providers Name Role Phone Brisa Smith PA-C Primary Care Provider Encounter Details Date Type Department Care Team Description 06/30/2003 PN Conversion Only HELENARahat Grajeda PA-C [address] [place] [address] [place] [address] (Wo rk) Social History Tobacco Use Types Packs/Day Years Used Date Smoking Tobacco: Never Assessed Sex Assigned at Date Recorded Not on file documented as of this encounter Plan of Treatment Not on filedocumented as of this encounter Procedures Procedure Name Priority Date/Time Associated Diagnosis Comme nts COMPLETE BLOOD Routine 06/30/2003 8:43 AM Results for this COUNT-NO DIFF HEATER HELPER procedure are in the results section. documented in this encounter Results (ABNORMAL) Complete Blood Count-No Diff (06/30/2003 8:43 AM HEATER HELPER) [facility] Method Time Signature White Blood Cell 4.1 (L) 4.5 - HP CONVERSION Count 13.5 K/cmm Red Blood Cell 5.23 (H) 4.10 - HP CONVERSION Count 5.10 m/cmm Hemoglobin 14.9 12.0 - HP CONVERSION 16.0 gm/dL Hematocrit 44.3 36.0 - HP CONVERSION 46.0 % Mean Corpuscular 84.8 78.0 - HP CONVERSION Volume 100.0 fl Mean Corpuscular 28.5 24.0 - HP CONVERSION Hemoglobin 34.0 pg Mean Corpuscular 33.6 32.0 - HP CONVERSION Hemoglobin Conc 36.5 [place] gm/dL RDW 12.7 11.0 - HP CONVERSION 15.0 % Platelet Count 232 150 - 450 HP CONVERSION k/cmm Specimen (Source) Anatomical Collection Method Collection Time Re ceived Time Location / / Volume Laterality 06/30/2003 8:43 AM HEATER HELPER Rahat Mix PA-C LAB_1 Performing Organization Address City/State/ZIP Code Phon e Number HP CONVERSION documented in this encounter Visit Diagnoses Not on filedocumented in this encounter Care Teams Round Cutter Operator Relationship Specialty Start Date End Date Brisa Smith PA-C PCP - General 07/30/10 04/18/15 [address] [place] [address] documented as of this encounter
--- OUTSIDE RECORDS SUMMARY | 2022-01-31 07:19 | XMS_ITS | Encounter Summary ---
:1990 Author Organization [facility] Address [address], [place] [address] Care Team Providers Name Role Phone Brisa Smith PA-C Primary Care Provider Encounter Details Date Type Department Care Team Description 10/12/2003 PN Conversion Only HELENA CONVERSION Ralph, [address] APRN, [place] [address] [address] [place] [address] (Wo rk) Social History Tobacco Use Types Packs/Day Years Used Date Smoking Tobacco: Never Assessed Sex Assigned at Date Recorded Not on file documented as of this encounter Plan of Treatment Not on filedocumented as of this encounter Procedures Procedure Name Priority Date/Time Associated Diagnosis Comme nts HEMOGLOBIN, BLOOD Routine 10/12/2003 3:20 PM Resu lts for this CDT procedure are i n the results section. documented in this encounter Results Hemoglobin, Blood (10/12/2003 3:20 PM CDT) P athologist Signature Hemoglobin 13.6 12.0 - 16.0 HP CONVERSION gm/dL Specimen (Source) Anatomical Collection Method Collection Time Re ceived Time Location / / Volume Laterality 10/12/2003 3:20 PM CDT Lillian Rosas APRN, CRACKING MACHINE OPERATOR LAB_1 Performing Organization Address City/State/ZIP Code Phon e Number HP CONVERSION documented in this encounter Visit Diagnoses Not on filedocumented in this encounter Care Teams Electrical Prospecting Operator Relationship Specialty Start Date End Date Brisa Smith PA-C PCP - General 07/30/10 04/18/15 [address] [place] [address] documented as of this encounter
--- OUTSIDE RECORDS SUMMARY | 2022-01-31 07:19 | XMS_ITS | Encounter Summary ---
:1990 Author Organization [employer] Address [address], [place] [address] Care Team Providers Name Role Phone Brisa Smith PA-C Primary Care Provider Reason for Visit Reason Comments Other Encounter Details Date Type Department Care Team Description 04/10/2004 Telephone [facility] Brittany Turner Other [address] [place] [address] Social History Tobacco Use Types Packs/Day Years Used Date Smoking Tobacco: Never Assessed Sex Assigned at Date Recorded Not on file documented as of this encounter [facility], Message - 04/10/2004 4:30 PM CST Phone Note filed by 3TIER at 08/13/10 1740 Author: 3TIER Service: (none) Author Type: (none) Filed: 08/13/10 Note Time: 04/10/04 1630 Status: Signed Arcade Game Technician: Message Pulmocide Hellen's mom is calling with test results from a rash on her face. She sees Dr.Kathleen Metz Please call.#[phone] Created on 10Apr2004 4:30pm by GRISELDA BAKER On 10Apr2004 4:47pm BRITTANY TURNER wrote: 2nd message, 1st message addressed and sent to Dr. Hernandes Acknowledged by BRITTANY TURNER on 7:54am documented in this encounter Plan of Treatment Not on filedocumented as of this encounter Visit Diagnoses Not on filedocumented in this encounter Care Teams Security System Technician Relationship Specialty Start Date End Date Brisa Smith PA-C PCP - General 07/30/10 04/18/15 [address] [place] [address] documented as of this encounter
--- OUTSIDE RECORDS SUMMARY | 2022-01-31 07:19 | XMS_ITS | Encounter Summary ---
:1990 Author Organization [employer] Address [address], [place] [address] Care Team Providers Name Role Phone Brisa Smith PA-C Primary Care Provider Encounter Details Date Type Department Care Team Description [facility] PROCESS ANALYST, CHANGE OF ADDRESS CLERK [address] [place] [address] [phone] (Wo rk) Social History Tobacco Use Types Packs/Day Years Used Date Smoking Tobacco: Never Assessed Sex Assigned at Date Recorded Not on file documented as of this encounter Progress Lena Garrison - 01/04/2004 12:01 AM CDT Progress Notes signed by KIMBERLY Guerrier at 02/16/04 192 Author: KIMBERLY Guerrier Service: (none) Author Type: Nurse Practitioner Filed: 08/17/10 0118 Note Time: 01/04/04 0001 Status: Signed Middleware Engineer: KIMBERLY Guerrier (Nurse Practitioner) NAME: MINO POSADAS MR: [id number] ACCT: [id number] VISIT: [id number] DICTATING CLINICIAN: LENA CHIU NP JOB: [id number] CLINIC PROGRESS NOTE DATE OF VISIT: 01/04/2004 SUBJECTIVE: CHIEF COMPLAINT: A 13-year-old female presents for follow up cough diagnosed with pneumonia at [facility] 12/27/03. Just finished a Z-Torito. Initially felt better, now states symptoms have worsened. Has felt feverish this morning. Disrupted sleep secondary to the cough. [place] short of breath with some chest tightness this morning. Currently breathing fine now. She did have some mild wheezing apparently last week at the ER. She is otherwise in good health. No previous history of asthma. Her mother accompanies her today. PAST MEDICAL HISTORY: Status post tonsillectomy and adenoidectomy. MEDICATIONS: Robitussin p.r.n., Vicodin p.r.n. cough. Just finished a Z-Torito. ADR/ALLERGIES: PENICILLIN AND SULFA. NO LATEX SENSITIVITY. Nonsmoker. Of note, mom states she had a neb treatment with no improvement at the ER. No previous history of a pneumonia. Release of records from ER reviewed. Chest x-ray negative on 12/28/03 through [facility]. Mino is otherwise in good health. 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 She did attend school last week despite feeling sick and actually played volleyball one game. OBJECTIVE: VS: BP: 98/58. T: 97.2 orally. Wt: 134 lb. GENERAL: Alert, well-developed female in no acute distress. Non toxic appearance. Quiet disposition. Flat affect. HEENT: Eyes: Conjunctivae clear. PERRLA. Bilateral TMs and canals clear. Nares patent. Throat, oropharynx unremarkable. No erythema. Tonsils within pillars. NECK: Supple without lymphadenopathy. No thyromegaly. LUNGS: Diminished both bases. No rhonchi or rales. No wheezing. Peak flows: 220, 300, 300 pre neb; 200, 270, 230 post neb. Reports no subjective improvement post nebulizer treatment. CARDIAC: RRR. S1, S2 no murmur. CBC normal. ASSESSMENT: Cough with bronchospasm. PLAN: Prednisone 20 mg b.i.d. for 5 days. Albuterol inhaler 2 puffs q.i.d. for 7 to 10 days, then p.r.n. Instructed on use. Plan follow up in one week to recheck or sooner with concerns. If cough persists, may consider adding a second Z-Torito. Today would be considered day 8 of initial Z-Torito course. Rest, adequate fluids, Robitussin p.r.n. or Vicodin p.r.n. cough. Avoid strenuous activity. FINAL IMPRESSION: Cough with bronchospasm, recent diagnosis of pneumonia. ALK:[id number] C: 01/05/04 08:57 DOCUMENT: [id number] documented in this encounter Plan of Treatment Not on filedocumented as of this encounter Visit Diagnoses Not on filedocumented in this encounter Care Teams Targeteer Relationship Specialty Start Date End Date Brisa Smith PA-C PCP - General 07/30/10 04/18/15 [address] [place] [address] documented as of this encounter
--- OUTSIDE RECORDS SUMMARY | 2022-01-31 07:19 | XMS_ITS | Encounter Summary ---
:1990 Author Organization [employer] Address [address], [place] [address] Care Team Providers Name Role Phone Brisa Smith PA-C Primary Care Provider Encounter Details Date Type Department Care Team Description 11/02/2004 Office Visit [facility] [place] [id number] [place] [phone] (Wo rk) Social History Tobacco Use Types Packs/Day Years Used Date Smoking Tobacco: Never Assessed Sex Assigned at Date Recorded Not on file documented as of this encounter Progress Notes Tyrone Greer MD - 11/02/2004 12:01 AM CDT Progress Notes signed by Tyrone Greer MD at 11/07/04 1344 Author: Tyrone Greer MD Service: (none) Author Type: Physician Filed: 08/17/10 0700 Note Time: 11/02/04 0001 Status: Signed Old Coin Dealer: Tyrone Greer MD (Physician) NAME: MINO POSADAS MR: [id number] ACCT: [id number] VISIT: [id number] DICTATING CLINICIAN: TYRONE GREER MD,MS JOB: [id number] CLINIC PROGRESS NOTE DATE OF VISIT: 11/02/2004 SUBJECTIVE: Chief Complaint: Possible loose cast. HPI: Mino is a 14-year-old young woman brought in by father for evaluation of a possible loose cast. She mentions that she had a soccer injury and there was some concern about a possible scaphoid fracture and/or ligament damage to her right wrist. She was then placed in a cast this past Friday. Over the last week, it has gotten slightly loose, to the point where if she tries, she can move it in the cast. Father wonders if there is anything to do. Attempted to go to orthopedics today at about 4:30 p.m., however, everyone had gone for the day. He did get an MRI of her wrist today as well. Otherwise, offers no complaints. OBJECTIVE: VS: BP: 105/69. T: 97.7. P: 68. R: 16. She is well-developed, well-nourished and in no acute distress. Patient does have a cast on the right forearm and it is slightly loose. She is able to wiggle her wrist slightly. Am able to put a finger in on the proximal portion of the cast, as well as the distal portion of the cast. ASSESSMENT: PLAN: Did review the dictation note on the MRI of the wrist, which sounded normal, and relayed this to the father. Suggested that he check with orthopedics on Friday to see if they concur with the radiology evaluation and if they wanted to recheck her, remove the cast, or apply a different cast. He agreed to do so. WMS:[id number] C: 11/03/04 22:04 DOCUMENT: [id number] documented in this encounter Plan of Treatment Not on filedocumented as of this encounter Visit Diagnoses Not on filedocumented in this encounter Care Teams Dance Entertainer Relationship Specialty Start Date End Date Brisa Smith PA-C PCP - General 07/30/10 04/18/15 [address] [place] [address] documented as of this encounter
--- OUTSIDE RECORDS SUMMARY | 2022-01-31 07:19 | XMS_ITS | Encounter Summary ---
:1990 Author Organization [facility] Address [address] [place] [address] Care Team Providers Name Role Phone Brisa Smith PA-C Primary Care Provider Encounter Details Date Type Department Care Team Description 07/31/2004 Office Visit [facility] Rita Carlisle MD [facility] [place] [id number] [place] [address] [phone] (Wo rk) Social History Tobacco Use Types Packs/Day Years Used Date Smoking Tobacco: Never Assessed Sex Assigned at Date Recorded Not on file documented as of this encounter Last Filed Vital Signs Vital Sign Reading Time Taken Comments Blood Pressure - - Pulse - - Temperature - - Respiratory Rate - - Oxygen Saturation - - Inhaled Oxygen Concentration - - Weight 60.3 kg (132 lb 15.7 oz) 07/31/2004 10:22 AM C: 60.3kg CDT Height - - Body Mass Index - - documented in this encounter Progress Notes Rita Carlisle - 07/31/2004 12:01 AM CDT Progress Notes signed by Rita Sawant MD at 08/07/04 1343 Author: Rita Ruiz MD Service: (none) Author Type: Physician Filed: 08/17/10 0515 Note Time: 07/31/04 0001 Status: Signed Cementer Machine Applicator: Rita Ruiz MD (Physician) NAME: MINO POSADAS MR: [id number] ACCT: [id number] VISIT: [id number] DICTATING CLINICIAN: RITA RUIZ MD JOB: [id number] CLINIC PROGRESS NOTE DATE OF VISIT: 07/31/2004 SUBJECTIVE: Nearly 14-year-old girl here with her mother for evaluation of an injury to her right wrist. On 07/08/04, two weeks ago, she was pushed into a wall at a soccer game. Is not sure how exactly the wrist was hit. Hurt mildly at this point, applied ice and used Tylenol off and on. Due to persistent tenderness in the ulnar aspect of the wrist, was seen by her chiropractor last 07/27/04. He noted tenderness in the ulnar aspect of the right wrist, performed two view wrist x-ray, and told mother he thought there was a small fracture with new bone formation. Placed her in a wrist splint and asked mother to return in one week for follow up. Mother is here today for a second opinion. She has brought the x-rays from the chiropractic doctor with her. She has been wearing the wrist brace all day and night except for showering. She states the pain is about the same. She has a bruise in the distal ulna from the brace. Is currently participating in volleyball and reluctant to hit the ball very hard. Also wants to participate in track and do the pole vault this spring. MEDICATIONS: None. ADR/ALLERGIES: PENICILLIN AND SULFA. OBJECTIVE: VS: Wt: 133. She is not swollen or erythematous about the wrist. She has tenderness that she rates as 5 out of 10 over the ulnar wrist, not the distal ulna. The rest of the wrist is nontender. She has full range of motion and strength is 5 out of 5. She denies numbness, tingling, or paresthesias. The 2-view x-rays from the chiropractor are reviewed and are underexposed. Obtained 3-views of the wrist including an oblique view here, which appear normal to me. Radiology review is pending. ASSESSMENT: Right wrist strain, no fracture. PLAN: Await radiology review later today or tomorrow. Will call mother with further instructions. If there is no fracture, she may remove the brace and proceed with her activities as tolerated. If she has persistent pain, she should follow up p.r.n. PNR:[id number] C: 08/01/04 13:34 DOCUMENT: [id number] documented in this encounter Plan of Treatment Not on filedocumented as of this encounter Procedures Procedure Name Priority Date/Time Associated Diagnosis Comme nts XR WRIST RT 3+ Routine 07/31/2004 10:51 AM Result s for this VIEWS CDT procedure are i n the results section. documented in this encounter Results XR Wrist Rt 3+ Views (07/31/2004 10:51 AM CDT) Anatomical Region Laterality Modality Upper Extremity, Wrist Other Specimen (Source) Anatomical Location Collection Method / Collectio n Time Received Time / Laterality Volume Narrative 07/31/2004 10:51 AM CDT Findings: BN1 No radiographic evidence of bone or join t abnormality. Dictating BREANA NAVARRO RADIOLOGIST Procedure Note Breana Kelly - 06/29/2016 Findings: BN1 No radiographic evidence of bone or join t abnormality. Dictating BREANA NAVARRO RADIOLOGIST Rita Carlisle MD RAD GD documented in this encounter Visit Diagnoses Not on filedocumented in this encounter Care Teams Reinforced Ironworker Relationship Specialty Start Date End Date Brisa Smith PA-C PCP - General 07/30/10 04/18/15 [address] [place] [address] documented as of this encounter
--- OUTSIDE RECORDS SUMMARY | 2022-01-31 07:19 | XMS_ITS | Encounter Summary ---
:1990 Author Organization [facility] Address [address], [place] [address] Care Team Providers Name Role Phone Brisa Smith PA-C Primary Care Provider Encounter Details Date Type Department Care Team Description 01/23/2004 Office Visit [facility] Rita Carlisle MD [facility] [id number] [place] [address] [phone] (Wo rk) Social History Tobacco Use Types Packs/Day Years Used Date Smoking Tobacco: Never Assessed Sex Assigned at Date Recorded Not on file documented as of this encounter Progress Notes Rita Carlisle - 01/23/2004 12:01 AM CDT Progress Notes signed by Rita Sawant MD at 01/23/04 1443 Author: Rita Ruiz MD Service: (none) Author Type: Physician Filed: 08/17/10 0138 Note Time: 01/23/04 0001 Status: Signed Assistant Art Director: Rita Ruiz MD (Physician) [facility] Acute Clinic Visit IMPRESSION: URI Reactive Airways, improving Chief Complaint: f/u pneumonia SUBJECTIVE: History of Present Illness: History given by the patient History given by the patient's mother one month ago, took zithromax, improved but worsened again. Seen here, prescribed prednisone and albuterol MDI. Now doing fairly well but still has bouts of coughing. Not in sports, does not have phy ed now. Cough is at rest/in class, during sleep at night. Second complaint of sore throat for past 2-3 days, no fever, some nasal congestion Symptoms are improving No fever during this illness. No headache No ear pain Rhinorrhea Sore throat Cough Decreased appetite Taking liquids well Meds This Illness: albuterol MDI 1-2 times per day Past History: Pt. does not have a history of asthma Adverse Drug Reactions & Chronic Medications: Patient's Adverse Drug Reactions were reviewed and updated on the Health Profile screen of [employer] No chronic medications OBJECTIVE: Weight: 135 General: well appearing; alert and appropriate. Eyes: no injection or drainage. Ears: canals and tympanic membranes normal bilaterally. Nose: mild congestion Oropharynx: slightly red op, clear pnd, tonsils 2+ bilat Neck: supple with mild symmetric LAD Chest: clear to auscultation; normal effort Cardiac: regular rate without murmur. Abdomen: soft, nontender; no masses. Skin: exam normal Lab & X-Ray: Rapid Strep was negative. ASSESSMENT: URI Reactive Airways, improving PLAN: Since has new URI now, recommend using albuterol MDI 2 puffs tid for one week, then wean to off as tolerated. Call if sx worsen. Symptomatic care. Encourage fluids and rest. Use nasal saline, acetaminophen, ibuprofen, or other OTC medications only as directed. Return to clinic if respiratory distress, signs of dehydration, or other concerns. RTC PRN if not gradually improving *SH~PC~TANG ~[place] Note completed on: 01/23/2004 2:42 PM documented in this encounter Plan of Treatment Not on filedocumented as of this encounter Visit Diagnoses Not on filedocumented in this encounter Care Teams Draw Machine Operator Relationship Specialty Start Date End Date Brisa Smith PA-C PCP - General 07/30/10 04/18/15 [address] [place] [address] documented as of this encounter
--- OUTSIDE RECORDS SUMMARY | 2022-01-31 07:19 | XMS_ITS | Encounter Summary ---
:1990 Author Organization [facility] Address [address] [address] Care Team Providers Name Role Phone Brisa Smith PA-C Primary Care Provider Encounter Details Date Type Department Care Team Description 07/10/2004 PN Conversion Only [place] [address] [place] [address] Social History Tobacco Use Types Packs/Day Years Used Date Smoking Tobacco: Never Assessed Sex Assigned at Date Recorded Not on file documented as of this encounter Plan of Treatment Not on filedocumented as of this encounter Visit Diagnoses Not on filedocumented in this encounter Care Teams Contractor General Engineering Relationship Specialty Start Date End Date Brisa Smith PA-C PCP - General 07/30/10 04/18/15 [address] [place], [place] [address] documented as of this encounter
--- OUTSIDE RECORDS SUMMARY | 2022-01-31 07:19 | XMS_ITS | Encounter Summary ---
:1990 Author Organization [facility] Address [address] [address] Care Team Providers Name Role Phone Brisa Smith PA-C Primary Care Provider Encounter Details Date Type Department Care Team Description 01/23/2004 PN Conversion Only HELENA Rita Hammond, [address] [address] [address] [place], [place] [phone] (Wo rk) Social History Tobacco Use Types Packs/Day Years Used Date Smoking Tobacco: Never Assessed Sex Assigned at Date Recorded Not on file documented as of this encounter Plan of Treatment Not on filedocumented as of this encounter Procedures Procedure Name Priority Date/Time Associated Diagnosis Comme nts STREP GROUP A Routine 01/23/2004 3:28 PM Results for this ANTIGEN TEST CDT procedure are i n the results section. BETA STREP FOLLOWUP Routine 01/23/2004 3:28 PM Re sults for this CDT procedure are i n the results section. documented in this encounter Results Strep Group A Antigen Test (01/23/2004 3:28 PM CDT) Analysis Performed At Patho logist Time Signature Strep Group A Negative Negative HP CONVERSION Antigen Test Comment: Culture to follow. Specimen (Source) Anatomical Collection Method Collection Time Re ceived Time Location / / Volume Laterality 01/23/2004 3:28 PM CDT Rita Carlisle MD LAB_1 Performing Organization Address City/State/ZIP Code Phon e Number HP CONVERSION Beta Strep Followup (01/23/2004 3:28 PM CDT) P athologist Signature Strep Screen SEE TEXT HP CONVERSION Comment: Patient: MINO POSADAS Rapid Strep Follow up Culture @ ? Collected: ??[id number] ??[id number] Source: Throat ?Processed: ??[id number] ??[id number] Final Report ------ ?[id number] ??[id number] No beta hemolytic Strep group A isolated . @ = Rapid F/U Cult Performed at ??[address] [place], [place] ?[address] Specimen (Source) Anatomical Collection Method Collection Time Re ceived Time Location / / Volume Laterality 01/23/2004 3:28 PM CDT Rita Carlisle MD LAB_1 Performing Organization Address City/State/ZIP Code Phon e Number HP CONVERSION documented in this encounter Visit Diagnoses Not on filedocumented in this encounter Care Teams Pulpwood Cutter Relationship Specialty Start Date End Date Brisa Smith PA-C PCP - General 07/30/10 04/18/15 [address] [place] [address] documented as of this encounter
--- OUTSIDE RECORDS SUMMARY | 2022-01-31 07:19 | XMS_ITS | Encounter Summary ---
:1990 Author [facility] Address [address] [place] [address] Care Team Providers Name Role Phone Brisa Smith PA-C Primary Care Provider Encounter Details Date Type Department Care Team Description 01/17/2005 Office Visit [facility] Abhay Philippe MD [facility] [address] [place] [address] [place] [address] [place] [address] [phone] (Wo rk) Social History Tobacco Use Types Packs/Day Years Used Date Smoking Tobacco: Never Assessed Sex Assigned at Date Recorded Not on file documented as of this encounter Last Filed Vital Signs Vital Sign Reading Time Taken Comments Blood Pressure - - Pulse - - Temperature - - Respiratory Rate - - Oxygen Saturation - - Inhaled Oxygen Concentration - - Weight 63.5 kg (139 lb 15.9 oz) 01/17/2005 8:56 AM CDT C: 63.5kg Height - - Body Mass Index - - documented in this encounter Progress Notes Abhay Philippe MD - 01/17/2005 12:01 AM CDT Progress Notes signed by Abhay Philippe MD at 01/24/05 1535 Author: Abhay Philippe MD Service: (none) Author Type: Physician Filed: 08/17/10 0829 Note Time: 01/17/052016 Status: Signed Equine Dentist: Abhay Philippe MD (Physician) NAME: MINO POSADAS MR: [id number] ACCT: [id number] VISIT: [id number] DICTATING CLINICIAN: ABHAY PHILIPPE MD JOB: [id number] CLINIC PROGRESS NOTE DATE OF VISIT: 01/17/2005 SUBJECTIVE: Chief Complaint: Left anterior hip pain. She was at volleyball yesterday when she was doing a lunge-type of drill and felt a pop in the left anterior inguinal fold and immediate pain. Has used ice, but does not feel it helps. She was able to finish practice. Should note, that she has had previous hip pain in 06/2003 with a negative x-ray but did not have the popping sensation. She has had no distal weakness or paresthesias. Does walk with a slight limp due to discomfort. OBJECTIVE: VS: Wt: 140 lb. She is in no distress. She does have a slight antalgic gait. On exam she has a tenderness along the left anterior and middle fold at the insertion into the inferior iliac spine. Has pain on sitting leg extension against resistance but full range of motion on her own. Has no adductor but does have slight abductor pain against resistance. CONCRETE ROD BUSTER otherwise intact. Did obtain AP and frog-leg x-rays of pelvis. No obvious avulsion fracture. ASSESSMENT: Clinically concerned about an occult avulsion fracture with the distinct popping sensation vs a muscle strain/tendinitis. PLAN: Did recommend crutches, nonweightbearing and follow up with Orthopedics in 1 week. Symptomatic care described. Discussed with father in the exam room and later with mother by phone. DIAGNOSIS/IMPRESSION: Hip pain. RGS:[id number] C: 01/23/05 15:15 DOCUMENT: [id number] documented in this encounter Plan of Treatment Not on filedocumented as of this encounter Procedures Procedure Name Priority Date/Time Associated Diagnosis Comme nts XR PELVIS BILAT Routine 01/17/2005 9:44 AM Result s for this HIPS 2+ VIEWS CDT procedure are in the results section. documented in this encounter Results XR Pelvis Bilat Hips 2+ Views (01/17/2005 9:44 AM CDT) Anatomical Region Laterality Modality Pelvis, Hip Other Specimen (Source) Anatomical Location Collection Method / Collectio n Time Received Time / Laterality Volume Narrative 01/17/2005 9:44 AM CDT HISTORY: ??Pain with volleyball injury. No acute or significant bone or joint ab normality. [id number]/braulio Dictating TORIBIO WHEELER RADIOLOGIST Procedure Note Toribio Roy - 06/29/2016Formatting o f this note might be different from the original. HISTORY: Pain with volleyball injury. No acute or significant bone or joint ab normality. [id number]/braulio Dictating TORIBIO WHEELER RADIOLOGIST Abhay Philippe MD RAD GD documented in this encounter Visit Diagnoses Not on filedocumented in this encounter Care Teams Salt Plant Operator Relationship Specialty Start Date End Date Brisa Smith PA-C PCP - General 07/30/10 04/18/15 [address] [place] [address] documented as of this encounter
--- OUTSIDE RECORDS SUMMARY | 2022-01-31 07:19 | XMS_ITS | Encounter Summary ---
:1990 Author Organization [email or web address] Address [address] [address] Care Team Providers Name Role Phone Brisa Smith PA-C Primary Care Provider Reason for Visit Reason Comments Other Encounter Details Date Type Department Care Team Description 04/09/2004 Telephone [facility] Brittany Turner [address] [place] [address] Social History Tobacco Use Types Packs/Day Years Used Date Smoking Tobacco: Never Assessed Sex Assigned at Date Recorded Not on file documented as of this encounter Progress Notes Center, Message - 04/09/2004 1:20 PM CST Phone Note filed by [employer] at 08/13/10 5809 Author: [employer] Service: (none) Author Type: (none) Filed: 08/13/10 7030 Note Time: 04/09/04 1320 Status: Signed Laboratory Clerk: [employer] MESSAGE TO CARE TEAM NAME OF CALLER:Rene (Mom) NAME OF CLINICIAN:Ashkan Hernandes MESSAGE:Pt. had a culture done 03/30. Mom would like to have the results. PHARMACY NAME: PHARMACY PHONE #: CALL BACK PHONE #:[phone] BEST TIME TO CALL BACK:any Is it OK to leave detailed message on voicemail?yes Created on 09Apr2004 1:20pm by JOSE RAMON MCBRIDE On 09Apr2004 4:52pm BRITTANY TURNER wrote: left message that results still pending, will speak with Dr. Hernandes regarding this when she returns to clinic on Fri. On 11Apr2004 9:48am ASHKAN HERNANDES wrote: Unable to run specimen because of some contamination. Will just need to watch for reoccurence and call to get Acyclovir if reoccurs. Acknowledged by ASHKAN HERNANDES on 9:48am On 11Apr2004 11:49am BRITTANY TURNER wrote: left message to call if reoccurance otherwise to treat as one time thing and call if questions. Acknowledged by BRITTANY TURNER on 11:49am documented in this encounter Plan of Treatment Not on filedocumented as of this encounter Visit Diagnoses Not on filedocumented in this encounter Care Teams Aerospace Control And Warning Systems Relationship Specialty Start Date End Date Brisa Smith PA-C PCP - General 07/30/10 04/18/15 [address] [place] [address] documented as of this encounter
--- OUTSIDE RECORDS SUMMARY | 2022-01-31 07:19 | XMS_ITS | Encounter Summary ---
:1990 Author Organization [facility] Address [address], [place] [address] Care Team Providers Name Role Phone Brisa Smith PA-C Primary Care Provider Reason for Visit Reason Comments Other Encounter Details Date Type Department Care Team Description 08/01/2004 Telephone [facility] Rita Carlisle MD Other [facility] [employer] [address] [place] [id number] [place] [address] [phone] (Wo rk) Social History Tobacco Use Types Packs/Day Years Used Date Smoking Tobacco: Never Assessed Sex Assigned at Date Recorded Not on file documented as of this encounter Progress Notes Center, Message - 08/01/2004 7:52 AM CDT Phone Note filed by [employer] at 08/13/10 5761 Author: [employer] Service: (none) Author Type: (none) Filed: 08/13/10 1732 Note Time: 08/01/04751 Status: Signed Social Media Assistant: Zapproved X-ray calling as requested, right wrist is negative. Created on 01Aug2004 7:52am by DAWSON DILLON M On 01Aug2004 1:34pm GRISELDA GIBSON wrote: Talked to mom and results of x-ray given. Acknowledged by RITA VILLEGAS on 8:04am T LEATHER MOSSER documented in this encounter Plan of Treatment Not on filedocumented as of this encounter Visit Diagnoses Not on filedocumented in this encounter Care Teams School Cook Relationship Specialty Start Date End Date Brisa Smith PA-C PCP - General 07/30/10 04/18/15 [address] [place] [address] documented as of this encounter
--- OUTSIDE RECORDS SUMMARY | 2022-01-31 07:19 | XMS_ITS | Encounter Summary ---
:1990 Author Organization [facility] Address [address] [address] Care Team Providers Name Role Phone Brisa Smith PA-C Primary Care Provider Encounter Details Date Type Department Care Team Description 03/07/2004 PN Conversion Only [facility] Isidro Sutton, [address] [place] [address] Social History Tobacco Use Types Packs/Day Years Used Date Smoking Tobacco: Never Assessed Sex Assigned at Date Recorded Not on file documented as of this encounter Plan of Treatment Not on filedocumented as of this encounter Procedures Procedure Name Priority Date/Time Associated Diagnosis Comme nts STREP GROUP A Routine 03/07/2004 5:08 PM Results for this ANTIGEN TEST BUS PERSON procedure are i n the results section. BETA STREP FOLLOWUP Routine 03/07/2004 5:08 PM Re sults for this BUS PERSON procedure are i n the results section. documented in this encounter Results Strep Group A Antigen Test (03/07/2004 5:08 PM BUS PERSON) Analysis Performed At Patho logist Time Signature Strep Group A Negative Negative HP CONVERSION Antigen Test Comment: Culture to follow. Specimen (Source) Anatomical Collection Method Collection Time Re ceived Time Location / / Volume Laterality 03/07/2004 5:08 PM BUS PERSON Isidro Cheatham MD LAB_1 Performing Organization Address City/State/ZIP Code Phon e Number HP CONVERSION Beta Strep Followup (03/07/2004 5:08 PM BUS PERSON) P athologist Signature Strep Screen SEE TEXT HP CONVERSION Comment: Patient: MINO POSADAS Rapid Strep Follow up Culture @ ? Collected: ??[id number] ??[id number] Source: Throat ?Processed: ??[id number] ??1708 Final Report ------ ?[id number] ??0758 No beta hemolytic Strep group A isolated . @ = Rapid F/U Cult Performed at ??[address] [place], [place] ?[address] Specimen (Source) Anatomical Collection Method Collection Time Re ceived Time Location / / Volume Laterality 03/07/2004 5:08 PM BUS PERSON Isidro Cheatham MD LAB_1 Performing Organization Address City/State/ZIP Code Phon e Number HP CONVERSION documented in this encounter Visit Diagnoses Not on filedocumented in this encounter Care Teams Science Interpreter Relationship Specialty Start Date End Date Brisa Smith PA-C PCP - General 07/30/10 04/18/15 [address] [place], [place] [address] documented as of this encounter
--- OUTSIDE RECORDS SUMMARY | 2022-01-31 07:19 | XMS_ITS | Encounter Summary ---
:1990 Author Organization [facility] Address [address] [address] Care Team Providers Name Role Phone Brisa Smith PA-C Primary Care Provider Encounter Details Date Type Department Care Team Description 03/28/2004 Office Visit Ashkan Yan MD [address] [place] [address] [place] [address] [place] [address] [phone] (Wo rk) Social History Tobacco Use Types Packs/Day Years Used Date Smoking Tobacco: Never Assessed Sex Assigned at Date Recorded Not on file documented as of this encounter Progress Notes Ashkan Hernandes MD - 03/28/2004 12:01 AM CST Progress Notes signed by Ashkan Hernandes MD at 03/29/04 1243 Author: Ashkan Hernandes MD Service: (none) Author Type: Physician Filed: 08/17/10 0251 Note Time: 03/28/04 0001 Status: Signed Mica Washer Gluer: Ashkan Hernandes MD (Physician) NAME: MINO POSADAS MR: [id number] ACCT: [id number] VISIT: [id number] DICTATING CLINICIAN: ASHKAN HERNANDES MD JOB: [id number] CLINIC PROGRESS NOTE DATE OF VISIT: 03/28/2004 SUBJECTIVE: : 1990Ama Macedo is a 13-year-old who has developed a rash on her left cheek yesterday. It was a little itchy. She does get colds. She did have a very mild case of chicken pox. ADR/ALLERGIES: INCLUDE SULFA AND PENICILLIN. MEDICATIONS: None. OBJECTIVE: VS: Wt: 137 lb. GENERAL: She is an alert 13-year-old in no acute distress. She does have a cluster of vesicular lesions on her left cheek. ASSESSMENT: Herpes simplex versus varicella zoster. PLAN: Will do a culture to rule out herpes simplex. In the meantime, I did start her on acyclovir 400 mg t.i.d. for five days. We will call them with the culture results. If it were herpes simplex then I would probably have her have a prescription on hand for acyclovir to use in the future if she broke out. KJM:[id number] C: 03/29/04 11:01 DOCUMENT: [id number] THCARE CUSTOMER SERVICE documented in this encounter Plan of Treatment Not on filedocumented as of this encounter Visit Diagnoses Not on filedocumented in this encounter Care Teams Outboard Motor Inspector Relationship Specialty Start Date End Date Brisa Smith PA-C PCP - General 07/30/10 04/18/15 [address] [place] [address] documented as of this encounter
--- OUTSIDE RECORDS SUMMARY | 2022-01-31 07:19 | XMS_ITS | Encounter Summary ---
:1990 Author Organization [facility] Address [address] [place] [address] Care Team Providers Name Role Phone No Ref-Primary, Physician Primary Care Provider [phone] Encounter Details Date Type Department Care Team Description 11/20/2021 Travel Social History Tobacco Use Types Packs/Day Years Used Date Never Assessed Sex Assigned at Date Recorded Not on file COVID-19 Exposure Response Date Recorded In the last 10 days, have you been in contact with No / Unsu re 11/20/2021 10:00 AM CDT someone who was confirmed or suspected to have Coronavirus/COVID-19? documented as of this encounter Plan of Treatment Not on filedocumented as of this encounter Visit Diagnoses Not on filedocumented in this encounter Care Teams Grating Machine Operator Relationship Specialty Start Date End Date No Ref-Primary, Physician PCP - General 11/16/18 documented as of this encounter
--- OUTSIDE RECORDS SUMMARY | 2022-01-31 07:19 | XMS_ITS | Encounter Summary ---
:1990 Author Organization [facility] Address [address] [place] [address] Care Team Providers Name Role Phone No Ref-Primary, Physician Primary Care Provider [phone] Reason for Referral Diagnostic Imaging Ultrasound (Routine) - Pending Review Specialty Diagnoses / Procedures Referred By Contact Refer red To Contact Diagnoses resulting from in vitro fertilization in second trimester Juan Luis Chirinos MD Procedures MFM Read Screen Echo Single [address] [place], [place] [address] Referral ID Status Reason Start Date Expiration Date Visits V isits Requested Authorized [id number] Pending 11/20/2021 11/20/2022 1 1 Review Reason for Visit Diagnostic Imaging Ultrasound (Routine) - Pending Review Specialty Diagnoses / Procedures Referred By Contact Refer red To Contact Diagnoses resulting from in vitro fertilization in second trimester Juan Luis Chirinos MD Procedures MFM Read Screen Echo Single [address] [place], [place] [address] Referral ID Status Reason Start Date Expiration Date Visits V isits Requested Authorized [id number] Pending 11/20/2021 11/20/2022 1 1 Review Encounter Details Date Type Department Care Team Description 12/18/2021 [facility] resulting Maternal MD Nader from [facility] vitro [facility] [address] fertilizat ion in [facility] 400 second trimester [address] [place], [place] [address] [address] [place], [place] [phone] (Aurg) [phone] Social History Tobacco Use Types Packs/Day Years Used Date Never Assessed Sex Assigned at Date Recorded Not on file COVID-19 Exposure Response Date Recorded In the last 10 days, have you been in contact with No / Unsu re 12/18/2021 9:15 AM CDT someone who was confirmed or suspected to have Coronavirus/COVID-19? documented as of this encounter Plan of Treatment Not on filedocumented as of this encounter Procedures Procedure Name Priority Date/Time Associated Diagnosis Comme nts [facility] READ SCREENING Routine 12/18/2021 10:02 resultin g Results for this ECHO AM CDT from in vitro procedure are in PENG fertilization in the results second trimester section. documented in this encounter Results [facility] Read Screen Echo Single (12/18/2021 10:02 AM [...] Echo Pat. Name: MINO SIGALA Study Date: 12/18/2021 9:18am Pat. NO: [id number] Referring ??MD: SPENCER VILLAGOMEZ Site: [facility] Tariff Compiling Clerk: Nancie Bailey RD MS : 1990 Age: 31 INDICATION In vitro fertilization METHOD Grayscale imaging, Doppler echocardiogra phy color flow velocity mapping and Doppler echocardiography pulsed wave and or wave with spectral display were used to assess cardiac structures for wilner goode [facility] echocardiogram. View: Sufficient Peng . Number of fetuses: 1 DATING ? Date ?Details ?Gest. age ?JOMAR Conception ? Conception: IVF Embryo transfer ?07/31/2021 ?IVF / ET: 5 d ?22 w + 5 d ? 04/18/2022 Prior assessment ? 08/30/2021 ?GA: 7 w + 2 d ? [...] RVOT view ?normal 3-vessel view ? normal 9-thuxry-oyljfqj view ? normal High short axis view [...] Pat. Name:Geovanni SIGALA Date:11/27 9:18am Pat. NO: [id number] MD:DYLAN ERA NESS [facility]Nancie Bailey RDMS :1990Age:31 INDICATION In vitro fertilization METHOD Grayscale imaging, Doppler echocardiogra phy color flow velocity mapping and Doppler echocardiography pulsed wave and or wave with spectral display were used to assess cardiac structures for carlosdamian saminas [facility] echocardiogram. View: Sufficient Peng . Number of [...] normal Cardiac size normal (approx. 1/3 of tho racic area) Cardiac Rhythm regular (normal) 4-chamber view normal LVOT view normal RVOT view normal 3-vessel view normal 4-gvbnjn-gqteifa view normal High short axis view normal [...] r MV annulus diast 5.1 mm -1.98 Schneide r PV annulus syst 4.1 mm -0.04 Keith AoV annulus syst 4.0 mm 1.25 Parker [...] of the aorta. Juan Luis Chirinos MD [facility] ORDERABLES documented in this encounter Visit Diagnoses Diagnosis resulting from in vitro fertil ization in second trimester documented in this encounter Care Teams Orientation And Mobility Instructor Relationship Specialty Start Date End Date No Ref-Primary, Physician PCP - General 11/16/18 documented as of this encounter
--- OUTSIDE RECORDS SUMMARY | 2022-01-31 07:19 | XMS_ITS | Encounter Summary ---
:1990 Author Organization [employer] Address [address], [place] [address] Care Team Providers Name Role Phone Brisa Smith PA-C Primary Care Provider Encounter Details Date Type Department Care Team Description 03/07/2004 Office Visit [facility] Isidro Cheatham MD [facility] [place] [address] Social History Tobacco Use Types Packs/Day Years Used Date Smoking Tobacco: Never Assessed Sex Assigned at Date Recorded Not on file documented as of this encounter Progress Notes Isidro Cheatham - 03/07/2004 12:01 AM CST Progress Notes signed by Isidro Cheatham MD at 03/07/04 0166 Author: Isidro Cheatham MD Service: (none) Author Type: Physician Filed: 08/17/10 0228 Note Time: 03/07/04 0001 Status: Signed Back Joiner: Isidro Cheatham MD (Physician) [facility] Acute Clinic Visit IMPRESSION: URI Chief Complaint: Sore throat SUBJECTIVE: History of Present Illness: Pt. was accompanied by mother This illness began 3 days ago Symptoms are stable No fever during this illness. Difficulty sleeping Fussiness Sore throat Cough No abdominal pain Decreased appetite Meds This Illness: No acute medications being used Past History: No History of Respiratory Disease Adverse Drug Reactions & Chronic Medications: No Adverse Drug Reactions OBJECTIVE: Temperature: 98 degrees F. Weight: 135 General: well appearing; alert and appropriate. Eyes: no injection or drainage. Ears: canals and tympanic membranes normal bilaterally. Oropharynx: symmetric tonsils, tonsillar erythema Chest: clear to auscultation; normal effort Cardiac: regular rate without murmur. Lab & X-Ray: Rapid Strep was negative. ASSESSMENT: URI PLAN: Symptomatic care. Encourage fluids and rest. Use nasal saline, acetaminophen, ibuprofen, or other OTC medications only as directed. Return to clinic if respiratory distress, signs of dehydration, or other concerns. Return to clinic in 3-5 days, sooner PRN *SH~PC~TANG ~Shorthand Note completed on: 03/07/2004 5:08 PM documented in this encounter Plan of Treatment Not on filedocumented as of this encounter Visit Diagnoses Not on filedocumented in this encounter Care Teams Line Closer Relationship Specialty Start Date End Date Brisa Smith PAMimaC PCP - General 07/30/10 04/18/15 [address] [place] [address] documented as of this encounter
--- OUTSIDE RECORDS SUMMARY | 2022-01-31 07:19 | XMS_ITS | Encounter Summary ---
:1990 Author Organization [facility] Address [address] [address] Care Team Providers Name Role Phone Unavailable Primary Care Provider Unavailable Encounter Details Date Type Department Care Team Description 11/02/2004 Hospital Encounter CATHOLIC CONVERSION Jose Jimenes MD Social History Tobacco Use Types Packs/Day Years Used Date Smoking Tobacco: Never Assessed Sex Assigned at Date Recorded Not on file documented as of this encounter Medications at Time of Discharge Medication Sig Dispensed Refills Start Date End Date unknown medication Indications: PN: 0 10/22/2004 11/02/2009 unknown medication Indications: PN: 0 07/31/2004 11/02/2009 unknown medication Indications: PN: 0 05/10/2004 11/02/2009 unknown medication Indications: PN: 0 01/23/2004 11/02/2009 unknown medication Indications: PN: 0 01/04/2004 11/02/2009 unknown medication Indications: PN: 0 10/12/2003 11/02/2009 unknown medication Indications: PN: 13 06/30/2003 07/02/2005 documented as of this encounter Plan of Treatment Not on filedocumented as of this encounter Procedures Procedure Name Priority Date/Time Associated Diagnosis Comme nts MR WRIST RT WO IV Routine 11/02/2004 5:59 PM Resu lts for this CONT CDT procedure are i n the results section. documented in this encounter Results MR Wrist Rt WO IV Cont (11/02/2004 5:59 PM CDT) Anatomical Region Laterality Modality Upper Extremity, Wrist, Hand, Arm, Skeletal Right Other Specimen (Source) Anatomical Location Collection Method / Collectio n Time Received Time / Laterality Volume Impressions 11/02/2004 5:59 PM CDT : ? 1. ?? Focus ?of marrow han ma with question of a partial thickness low signal intensity ?l ine in the triquetrum may be the result of direct trauma with trabecular ?impaction fracture or possibly stress phenomenon. ? 2. ?? Vertical ?low signal intensity line in the lunate without surrounding marrow edema ?may be the result of the old healed fracture or may be an incidental ?unusual appearing bone island. ? 3. ?? Could question ?a pa rtial thickness or small focal perforation of the scapholunate ? intrinsic interosseous ligament but no definite full-thickness tear. ??A lso there is no evidence of joint ?space widening or abnormal scapholunate or radial relationships. ? 4. ?? Ill-defined ?soft ti ssue edema overlying the dorsal intercarpal ligament may reflect ?nonspecific soft tissue edema or synovial thickening, less likely a ?partially ruptured or leaked ganglion. [facility]/[id number] Dictating DANIEL VICK RADIOLOGIST Narrative 11/02/2004 5:59 PM CDT MRI RIGHT WRIST: ??There is marrow edema and question of a partial thickness transverse low signal intensit y line within the dorsal ulnar aspect of the triquetrum. ??This m ay be the result of trauma such as direct trauma, or possibly unusu al stress phenomenon with partial stress fracture. The lunate contains a vertically oriente d low signal intensity line extending from its distal cortex nearly to the proximal cortex. There is no surrounding significant kassidy ow edema however associated with this. ??This may be the result of o ld healed fracture or possibly unusual elongated bone island, etc. ??Th e lunate demonstrates a normal relationship to the capitate, scaphoid, and distal radius without evidence for subluxation. ??The bone sig nal is otherwise normal. Scapholunate intrinsic interosseous liga ment is slightly heterogeneous but appears to be intact. ??There may be a small partial thickness or focal perforation towards t he scaphoid aspect as seen on series 13 image 9. ??There is no scaphol unate joint space widening. The lunotriquetral ligament appears inta ct. ??The triangular fibrocartilage appears intact. There is a small amount of soft tissue e brook deep to the extensor tendons overlying the dorsal intercarpal ligament. ??This is not well defined and may reflect synovial thicken ing or other nonspecific soft tissue edema. ??This does not appear def initely to be cystic such as in the setting of a ganglion, however a partially ruptured ganglion could possibly account for this. ??The c arpal tunnel structures and surrounding soft tissues structures, rad ial and ulnar neurovascular structures appear intact. Procedure Note Daniel Chaparro Willie - 06/29/2016Formattin g of this note might be different from the original. MRI RIGHT WRIST: There is marrow edema a nd question of a partial thickness transverse low signal intensit y line within the dorsal ulnar aspect of the triquetrum. This may be the result of trauma such as direct trauma, or possibly unusu al stress phenomenon with partial stress fracture. The lunate contains a vertically oriente d low signal intensity line extending from its distal cortex nearly to the proximal cortex. There is no surrounding significant kassidy ow edema however associated with this. This may be the result of old healed fracture or possibly unusual elongated bone island, etc. The lunate demonstrates a normal relationship to the capitate, scaphoid, and distal radius without evidence for subluxation. The bone signa l is otherwise normal. Scapholunate intrinsic interosseous liga ment is slightly heterogeneous but appears to be intact. There may be a small partial thickness or focal perforation towards t he scaphoid aspect as seen on series 13 image 9. There is no scapholun ate joint space widening. The lunotriquetral ligament appears inta ct. The triangular fibrocartilage appears intact. There is a small amount of soft tissue e brook deep to the extensor tendons overlying the dorsal intercarpal ligament. This is not well defined and may reflect synovial thicken ing or other nonspecific soft tissue edema. This does not appear defin itely to be cystic such as in the setting of a ganglion, however a partially ruptured ganglion could possibly account for this. The car pal tunnel structures and surrounding soft tissues structures, rad ial and ulnar neurovascular structures appear intact. IMPRESSION : 1. Focus of marrow edema with question of a partial thickness low signal intensity line in t he triquetrum may be the result of direct trauma with trabecular impaction fracture or possibly stress phenomenon. 2. Vertical low signal intensity line i n the lunate without surrounding marrow edema may be the result of the old healed fracture or may be an incidental unusual appearing bone island. 3. Could question a partial thickness o r small focal perforation of the scapholunate intrinsi c interosseous ligament but no definite full-thickness tear. Als o there is no evidence of joint space widening or abnormal scaphol unate or radial relationships. 4. Ill-defined soft tissue edema overly ing the dorsal intercarpal ligament may reflect nonspec ific soft tissue edema or synovial thickening, less likely a pa rtially ruptured or leaked ganglion. [facility]/[id number] Dictating DANIEL IVCK RADIOLOGIST Jose Jimenes MD RAD MRI documented in this encounter Visit Diagnoses Not on filedocumented in this encounter
--- OUTSIDE RECORDS SUMMARY | 2022-01-31 07:19 | XMS_ITS | Encounter Summary ---
:1990 Author Organization [facility] Address [address] [place] [address] Care Team Providers Name Role Phone No Ref-Primary, Physician Primary Care Provider [phone] Encounter Details Date Type Department Care Team Description 12/18/2021 Travel Social History Tobacco Use Types Packs/Day [...] on filedocumented in this encounter Care Teams Tunnel Kiln Operator Relationship Specialty Start Date End Date No Ref-Primary, Physician PCP - General 11/16/18 documented as of this encounter
--- OUTSIDE RECORDS SUMMARY | 2022-01-31 07:19 | XMS_ITS | Encounter Summary ---
:1990 Author Organization [email or web address] Address [address], [place] [address] Care Team Providers Name Role Phone Brisa Smith PA-C Primary Care Provider Encounter Details Date Type Department Care Team Description 08/29/2004 PN Conversion Only Mary Larkin, [address] [place] [address] [address] [place], [place] [phone] (Wo rk) Social History Tobacco Use Types Packs/Day Years Used Date Smoking Tobacco: Never Assessed Sex Assigned at Date Recorded Not on file documented as of this encounter Plan of Treatment Not on filedocumented as of this encounter Procedures Procedure Name Priority Date/Time Associated Comments Diagnosis STREP GROUP A ANTIGEN Routine 08/29/2004 11:21 Re sults for this TEST AM CDT procedure are i n the results section. BETA STREP FOLLOWUP Routine 08/29/2004 11:21 Resu lts for this AM CDT procedure are i n the results section. MONONUCLEOSIS SCREEN Routine 08/29/2004 11:01 Res ults for this AM CDT procedure are i n the results section. COMPLETE BLOOD Routine 08/29/2004 11:01 Results f or this COUNT-W/DIFF AM CDT procedure are i n the results section. documented in this encounter Results Strep Group A Antigen Test (08/29/2004 11:21 AM CDT) Analysis Performed At Patho logist Time Signature Strep Group A Negative Negative HP CONVERSION Antigen Test Comment: Culture to follow. Specimen (Source) Anatomical Collection Method Collection Time Re ceived Time Location / / Volume Laterality 08/29/2004 11:21 AM CDT Mary Hernandes MD LAB_1 Performing Organization Address City/State/ZIP Code Phon e Number HP CONVERSION Beta Strep Followup (08/29/2004 11:21 AM CDT) athologist Signature Strep Screen SEE TEXT HP CONVERSION Comment: Patient: MINO POSADAS Rapid Strep Follow up Culture @ ? Collected: ??[id number] ??[id number] Source: Throat ?Processed: ??[id number] ??[id number] Final Report ------ ?[id number] ??[id number] No beta hemolytic Strep group A isolated . @ = Rapid F/U Cult Performed at ??[address], [place] ?[address] Specimen (Source) Anatomical Collection Method Collection Time Re ceived Time Location / / Volume Laterality 08/29/2004 11:21 AM CDT Mary Hernandes MD LAB_1 Performing Organization Address City/[facility]/ZIP Code Phon e Number HP CONVERSION (ABNORMAL) Complete Blood Count-W/Diff (08/29/2004 11:01 AM CDT) [facility] gist Method Time Signature White Blood Cell 4.5 4.5 - 13.0 HP CONVERSIO N Count K/cmm Red Blood Cell 5.24 (H) 4.10 - HP CONVERSION Count 5.10 m/cmm Hemoglobin 14.9 12.0 - HP CONVERSION 16.0 gm/dL Hematocrit 44.2 36.0 - HP CONVERSION 46.0 % Mean Corpuscular 84.3 78.0 - HP CONVERSION Volume 100.0 fl Mean Corpuscular 28.3 24.0 - HP CONVERSION Hemoglobin 34.0 pg Mean Corpuscular 33.6 32.0 - HP CONVERSION Hemoglobin Conc 36.5 gm/dL [place] RDW 12.8 11.0 - HP CONVERSION 15.0 % Platelet Count 239 150 - 450 HP CONVERSION k/cmm Differential Auto-Dif No normal HP CONVERSION Verify range Neutrophils 2.1 K/cmm HP CONVERSION Absolute Count Neutrophil 46.8 % HP CONVERSION Lymphocyte % 44.1 % HP CONVERSION Monocyte 6.4 % HP CONVERSION Eosinophil 2.1 % HP CONVERSION Basophil % 0.6 % HP CONVERSION Specimen (Source) Anatomical Collection Method Collection Time Re ceived Time Location / / Volume Laterality 08/29/2004 11:01 AM CDT Mary Hernandes MD LAB_1 Performing Organization Address City/State/ZIP Code Phon e Number HP CONVERSION Mononucleosis Screen (08/29/2004 11:01 AM CDT) [facility] gist Method Time Signature Infectious Negative Negative HP CONVERSION Mononucleosis Screen Specimen (Source) Anatomical Collection Method Collection Time Re ceived Time Location / / Volume Laterality 08/29/2004 11:01 AM CDT Mary Hernandes MD LAB_1 Performing Organization Address City/State/ZIP Code Phon e Number HP CONVERSION documented in this encounter Visit Diagnoses Not on filedocumented in this encounter Care Teams Machine Etcher Relationship Specialty Start Date End Date Brisa Smith PA-C PCP - General 07/30/10 04/18/15 [address] [place] [address] documented as of this encounter
--- OUTSIDE RECORDS SUMMARY | 2022-01-31 07:19 | XMS_ITS | Encounter Summary ---
:1990 Author Organization [facility] Address [address] [address] Care Team Providers Name Role Phone Brisa Smith PA-C Primary Care Provider Encounter Details Date Type Department Care Team Description 07/10/2004 Office Visit [facility] A[place]ña [place] [id number] [place] [address] [phone] Social History Tobacco Use Types Packs/Day Years Used Date Smoking Tobacco: Never Assessed Sex Assigned at Date Recorded Not on file documented as of this encounter Progress Notes Ailin Piña MD - 07/10/2004 12:01 AM CST Progress Notes signed by Ailin Piña MD at 09/21/04 0931 Author: Ailin Piña MD Service: (none) Author Type: Physician Filed: 08/17/10 0452 Note Time: 07/10/04 0001 Status: Signed Staff Mechanical Engineer: Ailin Piña MD (Physician) NAME: MINO POSADAS MR: [id number] ACCT: [id number] VISIT: [id number] DICTATING CLINICIAN: AILIN PIÑA MD JOB: [id number] CLINIC PROGRESS NOTE DATE OF VISIT: 07/10/2004 SUBJECTIVE: : 89. Chief Complaint: This is a 13-year-old female who presents with bilateral ear pain, which started two weeks ago. No history of fever or sore throat. ADR/ALLERGIES: PENICILLIN AND SULFA. OBJECTIVE: VS: BP: 103/61. T: 98. P: 68. R: 16. GENERAL APPEARANCE: The patient is not in any acute distress. Right ear exam is normal. Left ear exam shows a dull tympanic membrane moving very sluggishly with insufflation. External canal is normal. Throat is normal. No palpable supraclavicular adenopathy. LUNGS: Clear to auscultation and percussion. ASSESSMENT: Otitis media. PLAN: The patient is allergic to penicillin and sulfa. She has been given a prescription for Zithromax for five days. FINAL DIAGNOSIS: Otitis media. STR:[id number] C: 07/11/04 15:45 DOCUMENT: [id number] documented in this encounter Plan of Treatment Not on filedocumented as of this encounter Visit Diagnoses Not on filedocumented in this encounter Care Teams Electrical Control Assembler Relationship Specialty Start Date End Date Brisa Smith PA-C PCP - General 07/30/10 04/18/15 [address] [place] [address] documented as of this encounter
--- OUTSIDE RECORDS SUMMARY | 2022-01-31 07:19 | XMS_ITS | Encounter Summary ---
:1990 Author Organization [facility] Address [address] [address] Care Team Providers Name Role Phone Brisa Smith PA-C Primary Care Provider Encounter Details Date Type Department Care Team Description 05/10/2004 PN Conversion Only HELENA CONVERSION Ralph, [address] A, SLASHER HAND, LEAFLET [place] [address] [address] [place] [phone] (Wo rk) Social History Tobacco Use Types Packs/Day Years Used Date Smoking Tobacco: Never Assessed Sex Assigned at Date Recorded Not on file documented as of this encounter Plan of Treatment Not on filedocumented as of this encounter Procedures Procedure Name Priority Date/Time Associated Comments Diagnosis BORDETELLA PERTUSSIS / Routine 05/10/2004 10:26 R esults for this PARAPERTUSSIS AM CLINICAL RESEARCH PHYSICIAN procedure are in WASH-NASAL the results section. documented in this encounter Results Bordetella Pertussis And Para Pcr (05/10/2004 10:26 AM CLINICAL RESEARCH PHYSICIAN) [facility] Method Time Signature Specimen Source NASAL PH No normal HP CONVERSION range Bordetella NEGATIVE No normal HP CONVERSION Pertussis PCR range Comment: Interpretive data: INTERPRETATION: Bordetella pertussis by PCR ??Negative - Bordetella pertussis bacte rial DNA not ? detected by PCR. ??Positive - Bordetella pertussis bacte rial DNA detected ? by PCR. A negative result does not rule out the presence of B. pertussis DNA in concentrations below the level of detection by the assay. A false positive for B. pertussis may occur in samples containing B. holme sii DNA. This test is performed pursuant to an ag reement with [employer] The performance characteristics of this test were validated by [employer]. The U.S. Food and Drug Administration (FDA) has not ap proved this test. The results are not intended to be used as the sole means for clinical diagnosis or pat ient management decisions. [facility] [employer] is authorized under [facility] Laboratory Improvement Amendments (CLIA) and by all states to perform high-complexity testing. Bordetella parapertussis PCR NEGATIVE No normal range HP CONVERSION Comment: Interpretive data: INTERPRETATION: Bordetella parapertussis by PCR ??Negative - Bordetella parapertussis b acterial DNA not ? detected by PCR. ??Positive - Bordetella parapertussis b acterial DNA ? detected by PCR. A negative result does not rule out the presence of B. parapertussis DNA in concentrations b elow the level of detection by the assay. A false positive for B. pertussis may occur in samples containing B. holme sii DNA. Specimen (Source) Anatomical Collection Method Collection Time Re ceived Time Location / / Volume Laterality 05/10/2004 10:26 AM CLINICAL RESEARCH PHYSICIAN Lillian Rosas APRN, LEAFLET OR NEWSPAPER DELIVERER LAB_1 Performing Organization Address City/State/ZIP Code Phon e Number HP CONVERSION documented in this encounter Visit Diagnoses Not on filedocumented in this encounter Care Teams Furrier Designer Relationship Specialty Start Date End Date Brisa Smith PA-C PCP - General 07/30/10 04/18/15 [address] [place] [address] documented as of this encounter
--- OUTSIDE RECORDS SUMMARY | 2022-01-31 07:19 | XMS_ITS | Encounter Summary ---
:1990 Author Organization [facility] Address [address], [place] [address] Care Team Providers Name Role Phone Brisa Smith PA-C Primary Care Provider Reason for Visit Reason Comments Other Encounter Details Date Type Department Care Team Description 03/27/2004 Telephone [facility] Chelo Álvarez Other [address] [place] [address] Social History Tobacco Use Types Packs/Day Years Used Date Smoking Tobacco: Never Assessed Sex Assigned at Date Recorded Not on file documented as of this encounter Progress Notes Chelo Álvarez - 03/27/2004 4:36 PM CST Phone Note filed by Chelo Álvarez RN at 08/13/10 1522 Author: Chelo Álvarez RN Service: (none) Author Type: (none) Filed: 08/13/10 1525 Note Time: 03/27/04 1636 Status: Signed Advertising Project Manager: Chelo Álvarez RN (Registered Nurse) Pt.has rash on cheek about the size of a quarter which started today, looks puffy. Doesn't remember anything new or different as far as products. Recommended Hydrocortisone sparingly tonight and bid tomorrow. Can also try antihistamine. Created on 27Mar2004 4:36pm by CHELO ÁLVAREZ documented in this encounter Plan of Treatment Not on filedocumented as of this encounter Visit Diagnoses Not on filedocumented in this encounter Care Teams Vocational Horticulture Instructor Relationship Specialty Start Date End Date Brisa Smith PA-C PCP - General 07/30/10 04/18/15 [address] [place] [address] documented as of this encounter
--- OUTSIDE RECORDS SUMMARY | 2022-01-31 07:19 | XMS_ITS | Encounter Summary ---
:1990 Author Organization [facility] Address [address] [place] [address] Care Team Providers Name Role Phone Brisa Smith PA-C Primary Care Provider Encounter Details Date Type Department Care Team Description 12/06/2004 [facility] Visit [facility] Jose Flynn MD Orthopedics [address] [place] [id number] Social History Tobacco Use Types Packs/Day Years Used Date Smoking Tobacco: Never Assessed Sex Assigned at Date Recorded Not on file documented as of this encounter Progress Notes Ranjith Garcia - 12/06/2004 12:01 AM CDT Progress Notes signed by at 12/12/04 1200 Author: Ranjith Garcia MD Service: (none) Author Type: (none) Filed: 08/17/10 0739 Note Time: 12/06/04 0001 Status: Signed Manufacturing Process Technician: Rudy Conversion NAME: MINO POSADAS MR: [id number] ACCT: [id number] VISIT: [id number] DICTATING CLINICIAN: RANJITH GARCIA MD,MPH JOB: [id number] CLINIC PROGRESS NOTE DATE OF VISIT: 12/06/2004 SUBJECTIVE: Ms. Posadas is a 14-year-old female seen today back in the clinic for her right wrist pain. Her initial injury occurred back on 10/20, however, there was another injury about three weeks prior to that. She had pain with flexion of her wrist or when she did real heavy type gripping. There was question whether there had been a fracture in the past. She had been told different things by different people. Therefore, we did do an MRI scan of her right wrist on the 02 of November. OBJECTIVE: That x-ray does show some findings consistent with edema but also appears there is some questionable impaction fracture on the triquetrum and what appears to be an old fracture of the lunate. ASSESSMENT: Right wrist pain with impaction fracture of the triquetrum and old lunate fracture. PLAN: We removed the cast here today. She was essentially asymptomatic at this time without any ecchymosis, erythema or swelling. Good range of motion of the wrist. Therefore, I would let her return to activities at this time. Recommended if she is going to play volleyball she tape her wrist. Doing things where she might be at risk as she may want to wear a wrist guard here for the next few weeks. DGK:[id number] C: 12/06/04 09:12 DOCUMENT: [id number] ICAL APPLIANCE FITTER documented in this encounter Plan of Treatment Not on filedocumented as of this encounter Visit Diagnoses Not on filedocumented in this encounter Care Teams Jewelry Mechanic Relationship Specialty Start Date End Date Brisa Smith PA-C PCP - General 07/30/10 04/18/15 [address] [place] [address] documented as of this encounter
--- OUTSIDE RECORDS SUMMARY | 2022-01-31 07:19 | XMS_ITS | Encounter Summary ---
:1990 Author Organization [facility] Address [address] [place] [address]. [place] [address] Care Team Providers Name Role Phone No Ref-Primary, Physician Primary Care Provider [phone] Reason for Referral Diagnostic Imaging Ultrasound (Routine) - Pending Review Specialty Diagnoses / Procedures Referred By Contact Refer red To Contact Diagnoses resulting from in vitro fertilization in second trimester Juan Luis Chirinos MD Procedures MFM Read Screen Echo Single [address] [place], [place] [address] Referral ID Status Reason Start Date Expiration Date Visits V isits Requested Authorized [id number] Pending 11/20/2021 11/20/2022 1 1 Review Reason for Visit Reason Comments Ultrasound L2- IVF Encounter Details Date Type Department Care Team Description 11/20/2021 Office Visit [facility] Spencer Villagomez [address] [place], [place] [id number] resulting Maternal Juan Luis Chirinos MD [address] [place] [address] from in vitro [facility] fertilizatio n in second [place] trimester (Primary Dx) [address] [facility] [address] [place] [address] Social History Tobacco Use Types Packs/Day Years Used Date Never Assessed Sex Assigned at Date Recorded Not on file COVID-19 Exposure Response Date Recorded In the last 10 days, have you been in contact with No / Unsu re 11/20/2021 10:00 AM CDT someone who was confirmed or suspected to have Coronavirus/COVID-19? documented as of this encounter Progress Notes Juan Luis Chirnios MD - 11/20/2021 10:45 AM CDT Please see Imaging tab under Chart Review for details of today's US at the [facility]. Juan Luis Chirinos MD Maternal- Medicine documented in this encounter Plan of Treatment Not on filedocumented as of this encounter Results [facility] Read Screen Echo Single (12/18/2021 10:02 [...] 10:33 AM CDT Echo Pat. Name: MINO KELLY Study Date: 0 12/18/2021 9:18am Pat. NO: [id number] Referring ??: SPENCER VILLAGOMEZ Site: [facility] Inspector Balance Truing: Nancie Bailey RD MS : 1990 Age: 31 INDICATION In vitro fertilization METHOD Grayscale imaging, Doppler echocardiogra phy color flow velocity mapping and Doppler echocardiography pulsed wave and or wave with spectral display were used to assess cardiac structures for wilner goode [facility] echocardiogram. View: Sufficient Tubbs . Number of fetuses: 1 DATING ? [...] RVOT view ?normal 3-vessel view ? normal 0-suwqab-ukzsajz view ? normal High short axis view [...] might be different from the original. Echo Esperanza. Name:Geovanni KELLY Date:11/27 9:18am Pat. NO: [id number] MD:DYLAN ERA NESS [facility]Nancie Bailey RDMS :1990Age:31 INDICATION In vitro fertilization METHOD Grayscale imaging, Doppler echocardiogra phy color flow velocity mapping and Doppler echocardiography pulsed wave and or wave with spectral display were used to assess cardiac structures for carlosdamian rupa [facility] echocardiogram. View: Sufficient Tubbs . Number of fetuses: 1 DATING Date [...] normal RVOT view normal 3-vessel view normal 6-qnjrga-mvxeqgo view normal High short axis view normal [...] of the aorta. Juan Luis Chirinos MD [facility] documented in this encounter Visit Diagnoses Diagnosis resulting from in vitro fertil ization in second trimester - Primary resulting from in vitro fertil ization in second trimester documented in this encounter Care Teams Face Hardener Relationship Specialty Start Date End Date No Ref-Primary, Physician PCP - General 11/16/18 documented as of this encounter
--- OUTSIDE RECORDS SUMMARY | 2022-01-31 07:19 | XMS_ITS | Encounter Summary ---
:1990 [facility] Address [address] [place] [address] Care Team Providers Name Role Phone Brisa Smith PA-C Primary Care Provider Encounter Details Date Type Department Care Team Description 10/22/2004 Office Visit Chloe Stacy MD [facility] [employer] [facility] [place] [address] [place] [address] [phone] (Wo rk) Social History Tobacco Use Types Packs/Day Years Used Date Smoking Tobacco: Never Assessed Sex Assigned at Date Recorded Not on file documented as of this encounter Last Filed Vital Signs Vital Sign Reading Time Taken Comments Blood Pressure 108/66 10/22/2004 1:15 PM CDT Pulse 76 10/22/2004 1:15 PM CDT Temperature - - Respiratory Rate - - Oxygen Saturation - - Inhaled Oxygen Concentration - - Weight 64.9 kg (142 lb 15.9 oz) 10/22/2004 1:15 PM CDT C: 64.9kg Height - - Body Mass Index - - documented in this encounter Progress Notes Chloe Mcmanus MD - 10/22/2004 12:01 AM CDT Progress Notes signed by Chloe Mcmanus MD at 10/24/04 1223 Author: Chloe Mcmanus MD Service: (none) Author Type: Physician Filed: 08/17/10 0649 Note Time: 10/22/04 0001 Status: Signed Powertrain Engineer: Chloe Mcmanus MD (Physician) NAME: MINO POSADAS MR: [id number] ACCT: [id number] VISIT: [id number] DICTATING CLINICIAN: CHLOE MCMANUS MD JOB: [id number] CLINIC PROGRESS NOTE DATE OF VISIT: 10/22/2004 SUBJECTIVE: : 1990. Reason for visit: Wrist pain. Kpgzjvq-arjl-rjd, 48 hours prior to this exam, had her right hand slammed in between her and another wireless sales expert, took herself out of the game briefly, did not tell anybody, was able to finish and reports immediate swelling. An berry planter, on the sidelines, examined it, re-examined it yesterday and gave her a wrist immobilizer, looks like a carpal tunnel splint, and is here to follow up. Reports that the pain is still extraordinary, although the swelling is down. Has been using intermittent ice. She did bang her same hand against the boards about a month ago, and there was found to be no fracture. She is otherwise fairly well. Takes no routine medications. ADR/ALLERGIES: SULFA AND PENICILLIN. Reports that her preferred sports are track and volleyball. OBJECTIVE: VS: BP: 108/66. P: 76. Wt: 143. She looks well. Hesitant to take her wrist immobilizer off. A moderate amount of swelling on the dorsum of the hand. A hematoma is seen. Range of motion is limited in all gutierrez, because of the discomfort. Exam, itself, is diffusely uncomfortable, especially at the distal most radius and ulna, also most proximal MCPs third, fourth, and fifth. No obvious deformities. X-rays, today, appear to me to have a small evulsion fracture near the growth plate of the ulna. Wrist structures, MCPs look okay. I have placed her in a longer splint held by an Ovidio wrap. ASSESSMENT: Possible wrist fracture. PLAN: Splint as above. Orthopedic visit for film review and re-examination October 26. SFP:[id number] C: 10/23/04 12:28 DOCUMENT: [id number] documented in this encounter Plan of Treatment Not on filedocumented as of this encounter Procedures Procedure Name Priority Date/Time Associated Diagnosis Comme nts XR HAND RT 3+ VIEWS Routine 10/22/2004 1:47 PM Re sults for this CDT procedure are i n the results section. documented in this encounter Results XR Hand Rt 3+ Views (10/22/2004 1:47 PM CDT) Anatomical Region Laterality Modality Upper Extremity, Hand Other Specimen (Source) Anatomical Location Collection Method / Collectio n Time Received Time / Laterality Volume Impressions 10/22/2004 1:47 PM CDT : There is a tiny ossific density adjacent to the medial aspect of the ulna most likely represent ing normal growth; however, less likely diagnostic considerations in clude a tiny Salter-Herbert type 2 fracture. [id number] Dictating NELSON TORRES Radiologist Narrative 10/22/2004 1:47 PM CDT COMPARISON: 07/31/04. HISTORY: History of a soccer injury. Mindy luate for fracture. REPORT: Wrist alignment is normal. No ev idence of hand or carpal fracture. There is a tiny ossific densit y adjacent to the medial aspect of the ulnar apophysis. This coul d represent small section of unfused bone versus a tiny avulsion inju ry. There is no significant soft tissue swelling adjacent to it. The re is no other evidence of fracture. Due to positioning this cannot be identified on the previous views. Procedure Note Nelson Juan MD - 06/29/2016For matting of this note might be different from the original. COMPARISON: 07/31/04. HISTORY: History of a soccer injury. Mindy luate for fracture. REPORT: Wrist alignment is normal. No ev idence of hand or carpal fracture. There is a tiny ossific densit y adjacent to the medial aspect of the ulnar apophysis. This coul d represent small section of unfused bone versus a tiny avulsion inju ry. There is no significant soft tissue swelling adjacent to it. The re is no other evidence of fracture. Due to positioning this cannot be identified on the previous views. IMPRESSION : There is a tiny ossific density adjace nt to the medial aspect of the ulna most likely represent ing normal growth; however, less likely diagnostic considerations in clude a tiny Salter-Herbert type 2 fracture. [id number] Dictating NELSON TORRES Radiologist Chloe Mcmanus MD RAD GD documented in this encounter Visit Diagnoses Not on filedocumented in this encounter Care Teams Trenching Machine Operator Relationship Specialty Start Date End Date Brisa Smith PA-C PCP - General 07/30/10 04/18/15 [address] [place] [address] documented as of this encounter
--- OUTSIDE RECORDS SUMMARY | 2022-01-31 07:19 | XMS_ITS | Encounter Summary ---
:1990 Author Organization [facility] Address [address] [address] Care Team Providers Name Role Phone Brisa Smith PA-C Primary Care Provider Encounter Details Date Type Department Care Team Description 03/28/2004 PN Conversion Only [facility] Mary Hernandes, [address] [place] [address] [address] [place] [address] (Wo rk) Social History Tobacco Use Types Packs/Day Years Used Date Smoking Tobacco: Never Assessed Sex Assigned at Date Recorded Not on file documented as of this encounter Plan of Treatment Not on filedocumented as of this encounter Visit Diagnoses Not on filedocumented in this encounter Care Teams Director Independent Relationship Specialty Start Date End Date Brisa Smith PA-C PCP - General 07/30/10 04/18/15 [address] [place], [place] [address] documented as of this encounter
--- OUTSIDE RECORDS SUMMARY | 2022-01-31 07:19 | XMS_ITS | Encounter Summary ---
:1990 Author Organization [facility] Address [address], [place] [address] Care Team Providers Name Role Phone Brisa Smith PA-C Primary Care Provider Encounter Details Date Type Department Care Team Description 08/17/2002 PN Conversion Only [facility] Ralph, [address] APRN, RESIDENTIAL [place] [address] [address] [place] [address] (Wo rk) Social History Tobacco Use Types Packs/Day Years Used Date Smoking Tobacco: Never Assessed Sex Assigned at Date Recorded Not on file documented as of this encounter Plan of Treatment Not on filedocumented as of this encounter Procedures Procedure Name Priority Date/Time Associated Diagnosis Comme nts STREP GROUP A Routine 08/17/2002 11:05 AM Results for this ANTIGEN TEST CDT procedure are i n the results section. BETA STREP FOLLOWUP Routine 08/17/2002 11:05 AM R esults for this CDT procedure are i n the results section. documented in this encounter Results Strep Group A Antigen Test (08/17/2002 11:05 AM CDT) [facility] Signature Strep Group A Negative Negative HP CONVERSION Antigen Test Comment: Culture to follow. Specimen (Source) Anatomical Collection Method Collection Time Re ceived Time Location / / Volume Laterality 08/17/2002 11:05 AM CDT Lillian Rosas APRN, RESIDENTIAL ENERGY AUDITOR LAB_1 Performing Organization Address City/State/ZIP Code Phon e Number HP CONVERSION Beta Strep Followup (08/17/2002 11:05 AM CDT) P athologist Signature Strep Screen SEE TEXT HP CONVERSION Comment: Patient: MINO POSADAS Rapid Strep Follow up Culture @ ? Collected: ??[id number] ??[id number] Source: Throat ?Processed: ??[id number] ??[id number] ? G Final Report ------ ?[id number] ??[id number] No beta hemolytic Strep group A isolated . @ = Rapid F/U Cult Performed at ??[address] [place], [place] ?[address] Specimen (Source) Anatomical Collection Method Collection Time Re ceived Time Location / / Volume Laterality 08/17/2002 11:05 AM CDT Lillian Rosas APRN, RESIDENTIAL ENERGY AUDITOR LAB_1 Performing Organization Address City/State/ZIP Code Phon e Number HP CONVERSION documented in this encounter Visit Diagnoses Not on filedocumented in this encounter Care Teams Polishing Machine Operator Helper Relationship Specialty Start Date End Date Brisa Smith PA-C PCP - General 07/30/10 04/18/15 [address] [place], [place] [id number] documented as of this encounter
--- OUTSIDE RECORDS SUMMARY | 2022-01-31 07:19 | XMS_ITS | Encounter Summary ---
:1990 Author Organization [facility] Address [address] [address] Care Team Providers Name Role Phone Brisa Smith PA-C Primary Care Provider Reason for Visit Reason Comments Other Encounter Details Date Type Department Care Team Description 05/14/2004 Telephone [facility], Message Other [address] [place] [address] Social History Tobacco Use Types Packs/Day Years Used Date Smoking Tobacco: Never Assessed Sex Assigned at Date Recorded Not on file documented as of this encounter Progress Notes Center, Message - 05/14/2004 2:07 PM CST Phone Note filed by Energie Etiche at 08/13/10 1610 Author: Energie Etiche Service: (none) Author Type: (none) Filed: 08/13/10 1610 Note Time: 05/14/04 1407 Status: Signed Box Blank Machine Feeder: Energie Etiche MESSAGE TO CARE TEAM NAME OF CALLER:Mildred (mom) NAME OF CLINICIAN:Lillian Gaspar NP MESSAGE:Mildred is calling for test results for Hellen, please call to discuss. She also would like the results for Xander's (her son) test results as well. PHARMACY NAME: PHARMACY PHONE #: CALL BACK PHONE #:[phone] (home) BEST TIME TO CALL BACK:anytime Is it OK to leave detailed message on voicemail?yes Created on 14May2004 2:07pm by CHRISTINA NGUYEN On 14May2004 3:18pm ABHAY PHILIPPE wrote: No pertussis. Acknowledged by ABHAY PHILIPPE on 3:18pm On 14May2004 3:27pm ROLLY WOODARD wrote: Mom was notified of the results. documented in this encounter Plan of Treatment Not on filedocumented as of this encounter Visit Diagnoses Not on filedocumented in this encounter Care Teams Wheel Blocker Relationship Specialty Start Date End Date Brisa Smith PA-C PCP - General 07/30/10 04/18/15 [address] [place] [address] documented as of this encounter
--- OUTSIDE RECORDS SUMMARY | 2022-01-31 07:19 | XMS_ITS | Encounter Summary ---
:1990 Author Organization [facility] Address [address] [place] [address] Care Team Providers Name Role Phone Brisa Smith PA-C Primary Care Provider Encounter Details Date Type Department Care Team Description 10/26/2004 Office Visit [facility] [address] Jose Flynn MD Orthopedics [address] [place] [address] Social History Tobacco Use Types Packs/Day Years Used Date Smoking Tobacco: Never Assessed Sex Assigned at Date Recorded Not on file documented as of this encounter Progress Notes Ranjith Garcia - 10/26/2004 12:01 AM CDT Progress Notes signed by at 10/30/04 0637 Author: Ranjith Garcia MD Service: (none) Author Type: (none) Filed: 08/17/10 0654 Note Time: 10/26/04 0001 Status: Signed Continuity Editor: Rudy Conversion NAME: MINO POSADAS MR: [id number] ACCT: [id number] VISIT: [id number] DICTATING CLINICIAN: RANJITH GARCIA MD,MPH JOB: [id number] CLINIC PROGRESS NOTE DATE OF VISIT: 10/26/2004 SUBJECTIVE: Ms. Posadas is a 14-year-old female seen today in the clinic for an injury that occurred to her right wrist when she was playing soccer on 10/20. Reports that it occurred when she ran into another player and her arm got between the two players. She reports pain really now in the dorsal midline aspect of her wrist. Does not report any numbness or tingling. Tells me that it bothers her when she flexes her wrist or when she grabs it or holds onto things. It should be noted she had a similar injury in the past and really did not have any definitive diagnosis, was splinted, and reports that she did fully recover from that. She is right hand dominant. MEDICATIONS: The only medication at this time is ibuprofen. ADR/ALLERGIES: SULFA AND PENICILLIN. SOCIAL HISTORY: She is here today with her father, enjoys soccer, volleyball, and doing pole vault. FAMILY HISTORY: No reported history of cardiovascular disease, cerebrovascular disease, rheumatoid arthritis, or diabetes. REVIEW OF SYSTEMS: No other HEENT, cardiac, respiratory, gastrointestinal, musculoskeletal, hematologic, neurologic, or psychiatric complaints. OBJECTIVE: Well-developed, well-nourished female in no apparent distress. Point tenderness is in the midline of the wrist. She has a great deal of difficulties flexing the wrist and does appear to me that she has some instability of the wrist in the DRUJ joint area into the lunate space. Negative Rolon's click test. Good radial and ulnar pulses are present. X-rays did not show any bone or joint abnormalities. ASSESSMENT: Right wrist pain, concerns about lunate instability. PLAN: I am going to put her in a cast today, do an MRI scan of her right wrist. DGK:[id number] C: 10/28/04 13:48 DOCUMENT: [id number] SERVER documented in this encounter Plan of Treatment Not on filedocumented as of this encounter Procedures Procedure Name Priority Date/Time Associated Diagnosis Comme nts XR WRIST RT 3+ Routine 10/26/2004 8:11 AM Results for this VIEWS CDT procedure are i n the results section. documented in this encounter Results XR Wrist Rt 3+ Views (10/26/2004 8:11 AM CDT) Anatomical Region Laterality Modality Upper Extremity, Wrist Other Specimen (Source) Anatomical Location Collection Method / Collectio n Time Received Time / Laterality Volume Narrative 10/26/2004 8:11 AM CDT The previously noted tiny density described adjacent to the medial aspect of the ulnar distal epiphysis on the films of 10/22/04 is not identified on today's films. ??No bony d isplacement or complication is seen on these films. ljc/ ?? [id number] Dictating RIVERA B[place]INGHAM RADIOLOGIST Procedure Note Rivera Corbett - 06/29/2016 The previously noted tiny density descri bed adjacent to the medial aspect of the ulnar distal epiphysis on the films of 10/22/04 is not identified on today's films. No bony dis placement or complication is seen on these films. lj/ [id number] Dictating RIVERA [facility] RADIOLOGIST Jose Garcia MD RAD GD documented in this encounter Visit Diagnoses Not on filedocumented in this encounter Care Teams Pulmonary Disease Specialist Relationship Specialty Start Date End Date Brisa Smith PA-C PCP - General 07/30/10 04/18/15 [address] [place] [address] documented as of this encounter
--- OUTSIDE RECORDS SUMMARY | 2022-01-31 07:19 | XMS_ITS | Encounter Summary ---
:1990 Author [facility] Address [address], [place] [address] Care Team Providers Name Role Phone Brisa Smith PA-C Primary Care Provider Encounter Details Date Type Department Care Team Description 10/12/2003 PN Conversion Only [facility] Ralph, [address] Lillian Stern APRN, [place] [address] [address] [phone] [place] [id number] (Wo rk) Social History Tobacco Use Types Packs/Day Years Used Date Smoking Tobacco: Never Assessed Sex Assigned at Date Recorded Not on file documented as of this encounter Progress Notes Lillian Rosas APRN, CNP - 10/12/2003 12:01 AM CDT H&P signed by Lillian Rosas APRN, CNP at 10/18/03 1223 Author: JOVANNA Antonio Service: (none) Author Type: Nurse Practitioner Filed: 08/16/10 1095 Note Time: 10/12/03 0001 Status: Signed Millstone Cleaner: JOVANNA Antonio (Nurse Practitioner) NAME: MINO POSADAS MR: [id number] ACCT: [id number] VISIT: [id number] DICTATING CLINICIAN: JOVANNA ANTONIO JOB: [id number] CLINIC PHYSICAL DATE OF VISIT: 10/12/2003 SUBJECTIVE: : 1990. Mino is a 13-year-old in for routine care. Needs camp physical done. Just finished eighth grade, is a straight-A student. Very athletic. Participating in soccer, volleyball, and track. Will be doing some babysitting. Review of systems completely negative. Eating well. Uses helmet and seat belt consistently. Is not real good about use of sunscreen routinely. Has regular monthly menses. TOBACCO EXPOSURE: None. ADR/ALLERGIES: PENICILLIN AND SULFA. OBJECTIVE: VS: BP: 100/62. Ht: 67-1/2 in. Wt: 135 lb. BMI: 21.1. Bob stage IV for development. HEENT: Exam negative. Heart, lungs, abdomen normal. Brisk DTRs. Back straight. Skin clear. ASSESSMENT: Healthy 13-year-old. PLAN: Hemoglobin. Forms were completed without restriction. Healthy choice-making reviewed and encouraged. Safety reviewed. Encouraged better use of sunscreen. Next routine exam in three years. EAC:[id number] C: 10/12/03 17:48 DOCUMENT: [id number] documented in this encounter Plan of Treatment Not on filedocumented as of this encounter Visit Diagnoses Not on filedocumented in this encounter Care Teams Packer Denture Relationship Specialty Start Date End Date Brisa Smith PA-C PCP - General 07/30/10 04/18/15 [address] [place] [address] documented as of this encounter
--- OUTSIDE RECORDS SUMMARY | 2022-01-31 07:19 | XMS_ITS | Encounter Summary ---
:1990 Author Organization [employer] Address [address] [place] [address] Care Team Providers Name Role Phone Brisa Smith PA-C Primary Care Provider Encounter Details Date Type Department Care Team Description 08/29/2004 Office Visit Ashkan Yan MD [address] [place] [address] [place] [address] [place] [address] [phone] (Wo rk) Social History Tobacco Use Types Packs/Day Years Used Date Smoking Tobacco: Never Assessed Sex Assigned at Date Recorded Not on file documented as of this encounter Last Filed Vital Signs Vital Sign Reading Time Taken Comments Blood Pressure - - Pulse - - Temperature 37.6 ??C (99.7 ??F) 08/29/2004 10:19 AM ORAL C: 37.6 C CDT Respiratory Rate - - Oxygen Saturation - - Inhaled Oxygen Concentration - - Weight 62.6 kg (137 lb 15.8 08/29/2004 10:19 AM C: 62.6 kg oz) CDT Height - - Body Mass Index - - documented in this encounter Progress Notes Ashkan Hernandes MD - 08/29/2004 12:01 AM CDT Progress Notes signed by Ashkan Hernandes MD at 09/07/04 1036 Author: Ashkan Hernandes MD Service: (none) Author Type: Physician Filed: 08/17/10 0551 Note Time: 08/29/04 0001 Status: Signed Creative Art Therapist: Ashkan Hernandes MD (Physician) NAME: MINO POSADAS MR: [id number] ACCT: [id number] VISIT: [id number] DICTATING CLINICIAN: ASHAKN HERNANDES MD JOB: [id number] CLINIC PROGRESS NOTE DATE OF VISIT: 08/29/2004 SUBJECTIVE: Mino is a 13-year-old who comes in having not been feeling well recently. She has been tired. She has generalized body aches, sore throat, headache, stomachache, and some diarrhea. No nausea or vomiting. A low-grade temp, less than 100. She is involved with three sports currently. She is very busy. She was exposed to strep. ADR/ALLERGIES: INCLUDE SULFA AND PENICILLIN. MEDS: None. OBJECTIVE: VS: T: 99.7. Wt: 138 lb. ON PHYSICAL EXAM: In general, she is an alert, 13-year-old, in no acute distress. Conjunctivae are clear. TMs are clear. Oropharynx is clear. NECK: Supple, with some anterior cervical lymphadenopathy. LUNGS: Clear to auscultation. ABDOMEN: Soft and nontender, without any hepatosplenomegaly or masses. CBC was unremarkable. Total white count was 4.5. Her mono spot was negative. Rapid strep was negative. ASSESSMENT: Probable viral syndrome. PLAN: I would just recommend observation for now. If her 24-hour strep is positive, we will treat her with a full course of antibiotics. KJM:[id number] C: 09/04/04 08:31 DOCUMENT: [id number] documented in this encounter Plan of Treatment Not on filedocumented as of this encounter Visit Diagnoses Not on filedocumented in this encounter Care Teams Quarter Supervisor Relationship Specialty Start Date End Date Brisa Smith PA-C PCP - General 07/30/10 04/18/15 [address] [place] [address] documented as of this encounter
--- OUTSIDE RECORDS SUMMARY | 2022-01-31 07:19 | XMS_ITS | Encounter Summary ---
:1990 Author Organization [employer] Address [address], [place] [address] Care Team Providers Name Role Phone Brisa Smith PA-C Primary Care Provider Reason for Visit Reason Comments Other Encounter Details Date Type Department Care Team Description 10/22/2004 Telephone [facility] Isabel Garnica RN Other [address] [place] [address] Social History Tobacco Use Types Packs/Day Years Used Date Smoking Tobacco: Never Assessed Sex Assigned at Date Recorded Not on file documented as of this encounter Progress Notes Isabel Oropeza RN - 10/22/2004 7:04 AM CDT Phone Note filed by Isabel Oropeza RN at 08/13/101901 Author: Isabel Oropeza RN Service: (none) Author Type: Registered Nurse Filed: 08/13/101901 Note Time: 10/22/04703 Status: Signed District Wildlife Manager: Isabel Oropeza RN (Registered Nurse) Phone Care Triage Note IMPRESSION: Wrist pain SYMPTOMS: Injured right hand yesterday playing soccer. dad on field recommended she get an xray. Top of hand is sore, unable to film splicer. Mildly painful, no swelling. PATIENT INFORMATION: Problem List: Reviewed today in LastWord --- Allergies: Reviewed/updated today in LastWord --- Medications: Reviewed/updated today in LastWord Advised: call back if symptoms worsen or persist, any other questions or concerns. Information given per: Pediatric Telephone Protocols, Perry Conde page Wrist pain PLAN: SCHEDULE APPOINTMENT WITHIN 12 HOURS, appt booked at 13:[address] Mcmanus Patient/Caller agrees with plan and denies additional questions. Denies emergent, urgent symptoms Call Complete. Created on 22Oct2004 7:04am by ISABEL OROPEZA LIANCE ENGINE[employer] documented in this encounter Plan of Treatment Not on filedocumented as of this encounter Visit Diagnoses Not on filedocumented in this encounter Care Teams Program Assistant Relationship Specialty Start Date End Date Brisa Simth PA-C PCP - General 07/30/10 04/18/15 [address] [place] [address] documented as of this encounter
--- OUTSIDE RECORDS SUMMARY | 2022-01-31 07:19 | XMS_ITS | Encounter Summary ---
:1990 Author Organization [facility] Address [facility] [place] [address] Care Team Providers Name Role Phone No Ref-Primary, Physician Primary Care Provider [phone] Reason for Visit Reason Comments Ultrasound echo-IVF Encounter Details Date Type Department Care Team Description 12/18/2021 Office Visit [facility] Juan Luis Chirinos resulting Maternal MD Nader from in vitro [facility] [address] fertilizat ion in second [place] MAXI 400 trimester (Primary Dx) [address] [place], [place] [address] [address] [place], [place] [phone] [address] (Work) [phone] Social History Tobacco Use Types Packs/Day Years Used Date Never Assessed Sex Assigned at Date Recorded Not on file COVID-19 Exposure Response Date Recorded In the last 10 days, have you been in contact with No / Unsu re 12/18/2021 9:15 AM CDT someone who was confirmed or suspected to have Coronavirus/COVID-19? documented as of this encounter Progress Notes Juan Luis Chirinos MD - 12/18/2021 10:00 AM CDT Please see Imaging tab under Chart Review for details of today's US at the [facility]. Juan Luis Chirinos MD Maternal- Medicine documented in this encounter Plan of Treatment Not on filedocumented as of this encounter Visit Diagnoses Diagnosis resulting from in vitro fertil ization in second trimester - Primary documented in this encounter Care Teams Acid Bath Mixer Relationship Specialty Start Date End Date No Ref-Primary, Physician PCP - General 11/16/18 documented as of this encounter
--- OUTSIDE RECORDS SUMMARY | 2022-01-31 07:20 | XMS_ITS | Encounter Summary ---
:1990 Author Organization [place] Address [facility] [place] [address] Care Team Providers Name Role Phone No Ref-Primary, Physician Primary Care Provider [phone] Reason for Referral Diagnostic Imaging Ultrasound (Routine) - Pending Review Specialty Diagnoses / Procedures Referred By Contact Refer red To Contact Diagnoses related condition, antepartum Fit, July Procedures [place] [address] [place] [address] Referral ID Status Reason Start Date Expiration Date Visits V isits Requested Authorized [id number] Pending 11/01/2021 11/01/2022 1 1 Review Reason for Visit Diagnostic Imaging Ultrasound (Routine) - Pending Review Specialty Diagnoses / Procedures Referred By Contact Refer red To Contact Diagnoses related condition, antepartum Fitjuly Procedures [place] [address] [place] [address] Referral ID Status Reason Start Date Expiration Date Visits V isits Requested Authorized [id number] Pending 11/01/2021 11/01/2022 1 1 Review Encounter Details Date Type Department Care Team Description [facility] [place] [id number] [place] [id number] related Maternal Juan Luis Chirinos MD [address] [place] [address] condition, Medicine Center antepartum [place] [address] [facility] [address] [place] [address] Social History Tobacco Use Types [...] Procedure Name Priority Date/Time Associated Comments Diagnosis [facility] US COMPREHENSIVE Routine 11/20/2021 11:00 relate d Results for this SINGLE AM CDT condition, procedure are i n antepartum the results section. documented in this encounter Results [facility] US Comprehensive Single (11/20/2021 11:00 [...] 10:58 AM CDT Comprehensive Pat. Name: MINO KELLY Study Date: 11/20/2021 10:05am Pat. NO: [id number] Referring ??MD: SPENCER VILLAGOMEZ Site: [facility] Insurance Sales Representative: Anitha Love RDMS : 1990 Age: 31 INDICATION In Vitro Fertilization METHOD Transabdominal ultrasound examination. V iew: Sufficient Tubbs . Number of fetuses: 1 [...] Biometry: BPD ?44.8 ?mm ? 19w 4d ?Brian LIAO ?57.7 ?mm ? 18w 6d ?Nicolaides HC ?164.1 ?mm ?19w 1d ?Hadlock Cerebellum tr ?19.1 ? mm ?18w 4d ?Nicolaides AC ?148.8 ?mm ?20w 1d ?88% ?Hadlock Femur ?27.0 ? mm ?18w 2d ?Hadlock Humerus ?26.5 ?mm ? 18w 3d ?Ramon Weight Calculation: EFW ? 282 ? g ? 76% ?Hadlock EFW (lb,oz) ? 0 lb 10 ? oz EFW by ?Hadlock ([id number]) Head / Face / Neck Biometry: Agriculture Sales Account Manager ? 5.8 ? mm CM ?5.0 ? [...] cava. Inferior vena cava. 3-vessel ? view. 7-qrbqbe-jrkhdqy view. Cardiac position. Cardiac size. Cardiac rhythm. [...] have scheduled the patient to return to [facility] in 4 weeks for a [...] different from the original. Comprehensive Pat. Name:Geovanni KELLY Date:10/27 10:05am Pat. NO: [id number] MD:BETSY NESS Site:[place]om[place]ngrapher:NICK Sheriff :1990Age:31 INDICATION In Vitro Fertilization METHOD Transabdominal ultrasound examination. V iew: Sufficient Tubbs . Number of fetuses: 1 [...] 0 lb 10 oz EFW by Hadlock ([id number]) Head / Face / Neck Biometry: Agriculture Sales Account Manager 5.8 mm CM 5.0 mm Nasal bone [...] vena cava. Inferior vena cava. 3-vessel view. 2-zfbpxv-uburjcq view. Cardiac po sition. Cardiac size. Cardiac [...] have scheduled the patient to return to [facility] in 4 weeks for a [...] 4) No markers for aneuploidy seen. [facility] documented in this encounter Visit Diagnoses Diagnosis related condition, antepartum documented in this encounter Care Teams Cullet Crusher And Washer Relationship Specialty Start Date End Date No Ref-Primary, Physician PCP - General 11/16/18 documented as of this encounter
--- OUTSIDE RECORDS SUMMARY | 2022-01-31 07:20 | XMS_ITS | Encounter Summary ---
:1990 Author Organization [facility] Address [address] [place] [address] Care Team Providers Name Role Phone No Ref-Primary, Physician Primary Care Provider [phone] Encounter Details Date Type Department Care Team Description 10/22/[address] [facility] Scan, REFERRAL Health Info [facility] Non-Provider [facility] Srvcs AND CLINICS [address] [place] [address] Social History Tobacco Use Types Packs/Day Years Used Date Never Assessed Sex Assigned at Date Recorded Not on file documented as of this encounter Plan of Treatment Not on filedocumented as of this encounter Visit Diagnoses Not on filedocumented in this encounter Care Teams Inspector Fibrous Wallboard Relationship Specialty Start Date End Date No Ref-Primary, Physician PCP - General 11/16/18 documented as of this encounter
--- OUTSIDE RECORDS SUMMARY | 2022-01-31 07:20 | XMS_ITS | Encounter Summary ---
:1990 Author Organization [place] Address [address] [place] [address] Care Team Providers Name Role Phone Unavailable Primary Care Provider Unavailable Encounter Details Date Type Department Care Team Description 12/28/2003 Results Only Isidro Cruz MD Social History Tobacco Use Types Packs/Day Years Used Date Never Assessed Sex Assigned at Date Recorded Not on file documented as of this encounter Plan of Treatment Not on filedocumented as of this encounter Procedures Procedure Name Priority Date/Time Associated Diagnosis Comme [facility] CHEST TWO VIEWS, STAT 12/28/2003 12:40 AM R esults for this FRONT/LAT CDT procedure are i n the results section. documented in this encounter Results CHEST X-RAY 2 VW (12/28/2003 12:40 AM CDT) Specimen (Source) Anatomical Collection Method Collection Time Re ceived Time Location / / Volume Laterality 12/28/2003 12:40 AM CDT Impressions Pacs, Data Conversion - 12/28/2003 10:41 AM CDT 2 VIEW CHEST - 12/28/2003 ?? CLINICAL HISTORY: Cough. ?? FINDINGS: Negative. Isidro Cruz MD GENERAL IMAGING documented in this encounter Visit Diagnoses Not on filedocumented in this encounter
--- OUTSIDE RECORDS SUMMARY | 2022-01-31 07:20 | XMS_ITS | Encounter Summary ---
:1990 Author Organization [facility] Address [address] [place] [address]. [place] [address] Care Team Providers Name Role Phone No Ref-Primary, Physician Primary Care Provider [phone] Encounter Details Date Type Department Care Team Description 10/25/2021 Medical Correspondence [facility] Scan, Provide r MATERNAL Health Info [facility] MEDICINE CE NTER Srvcs PROVIDER SERVICE [address] [place] [address] REQUEST- OUTPATIENT [facility] [phone] [facility] [phone] Social History Tobacco Use Types Packs/Day Years Used Date Never Assessed Sex Assigned at Date Recorded Not on file documented as of this encounter Plan of Treatment Not on filedocumented as of this encounter Visit Diagnoses Not on filedocumented in this encounter Care Teams Plc Controls Engineer Relationship Specialty Start Date End Date No Ref-Primary, Physician PCP - General 11/16/18 documented as of this encounter
--- OUTSIDE RECORDS SUMMARY | 2022-01-31 07:20 | XMS_ITS | Encounter Summary ---
:1990 Author Organization [facility] Address [address] [place] [address] Care Team Providers Name Role Phone No Ref-Primary, Physician Primary Care Provider [phone] Encounter Details Date Type Department Care Team Description 11/16/2018 Travel Social History Tobacco Use Types Packs/Day Years Used Date Never Assessed Sex Assigned at Date Recorded Not on file documented as of this encounter Plan of Treatment Not on filedocumented as of this encounter Visit Diagnoses Not on filedocumented in this encounter Care Teams Freight Flagman Relationship Specialty Start Date End Date No Ref-Primary, Physician PCP - General 11/16/18 documented as of this encounter
--- OUTSIDE RECORDS SUMMARY | 2022-01-31 07:20 | XMS_ITS | Encounter Summary ---
:1990 Author Organization [facility] Address [address] [place] [address] Care Team Providers Name Role Phone Unavailable Primary Care Provider Unavailable Encounter Details Date Type Department Care Team Description 08/14/2003 Emergency room Angeles Heard Social History Tobacco Use Types Packs/Day Years Used Date Never Assessed Sex Assigned at Date Recorded Not on file documented as of this encounter ED Notes Angeles Heard - 10/10/2003 12:00 AM CDT : 88 CHIEF COMPLAINT: Ankle pain. HISTORY OF PRESENT ILLNESS: The patient is a 12-year-old female who yesterday collided with another engine monitor and now complains of decreased sensation in her foot and pain in her ankle. She is able to bear some weight on this foot. She rates her pain at a 6.5 out of 10. REVIEW OF SYSTEMS: See HPI, remainder is negative. PAST MEDICAL HISTORY: None chronic. MEDICATIONS: Ibuprofen p.r.n. ALLERGIES: PENICILLIN AND SULFA cause rash. SOCIAL HISTORY: The child attends school. PHYSICAL EXAMINATION: Vitals; blood pressure 129/63, pulse 80, respiratory rate 14, temperature 99.7, oxygen saturation 98% on room air. In general the patient is alert and oriented. The examination is focused on her right lower extremity. She has some tenderness at the lateral malleolus and across the dorsum of her foot. Though she complains of decreased sensation, she withdraws with sharp stimulation of the foot. She has good capillary refill, she has a good dorsalis pedis pulse. There is no significant soft tissue swelling. MEDICAL DECISION MAKING AND EMERGENCY DEPARTMENT COURSE: The patient was sent for an x-ray of the right foot. X-ray is interpreted by me as negative for fracture. I talked with the family and the patient about trying to keep her foot elevated as much as possible. She does not think that she needs crutches at this time. She is to take Ibuprofenfor pain control. She is to follow up with either her doctor or orthopedics within the week. IMPRESSION: Foot/ankle injury. DISPOSITION: Home. CONDITION: Stable. [id number] _ ANGELES HEARD MD [place]: Document: [id number] [place], [place] Name: MINO POSADAS EMERGENCY ROOM ENCOUNTER Page 2 of 2 LCN: IGNACIA DSC: 08/14/2003 [place], [place] Name: MR#: : Admit Date: MINO POSADAS -32 1990 08/14/2003 Doctor: ANGELES HEARD MD EMERGENCY ROOM ENCOUNTER Page 1 of 2 documented in this encounter Plan of Treatment Not on filedocumented as of this encounter Visit Diagnoses Not on filedocumented in this encounter
--- OUTSIDE RECORDS SUMMARY | 2022-01-31 07:20 | XMS_ITS | Encounter Summary ---
:1990 Author Organization [place] Address [address] [place] [address] Care Team Providers Name Role Phone Unavailable Primary Care Provider Unavailable Encounter Details Date Type Department Care Team Description 12/27/2003 Emergency room Ranjith Diaz MD Social History Tobacco Use Types Packs/Day Years Used Date Never Assessed Sex Assigned at Date Recorded Not on file documented as of this encounter ED Notes Ranjith Diaz - 12/28/2003 12:00 AM CDT : 88 CHIEF COMPLAINT: Cough. HISTORY OF PRESENT ILLNESS: Mino Posadas is a 13-year-old female who presents with her mother complaining of a cough during the past two weeks. The patient's cough seemed to be worsening, and the mother is concerned that there may be some wheezing. The patient does not have a history of asthma or other chronic respiratory problems. She has bouts of coughing and states when she has coughed a long time, her chest wall begins to hurt and only stops when she stops coughing. She develops headache with bouts of coughing. She has had rhinorrhea and the cough has been productive of yellowish sputum. She has not been febrile. Her appetite has been intact and she has remained active. PAST MEDICAL HISTORY: No hospitalizations. Status post tonsillectomy and adenoidectomy years ago. CURRENT MEDICATIONS: Robitussin p.r.n. ALLERGIES: Penicillin causes a rash. IMMUNIZATIONS: Up to date. REVIEW OF SYSTEMS: All negative except as noted above. SOCIAL HISTORY: The patient does not smoke. She has been camping in the past number of weeks but after the symptoms had already started. No unusual pets. No travel to the [facility]. No unusual molds in the house. No mice. No known contacts. PHYSICAL EXAM: Temp. 97.1 orally, pulse 92, respirations 20, blood pressure 119/70, oxygen saturation 100% on room air, weight 57 kilograms. General, patient is awake and alert and overall appears well. HEENT - normocephalic, atraumatic. Pupils equal, round, reactive to light. Sclerae white, nonicteric, conjunctivae nonhyperemic. TMs pearly-white bilaterally. Nares clear. OROPHARYNX - without lesions. NECK - supple, nontender, range of motion intact. CHEST - respirations are unlabored without accessory muscle use or retractions. The breath sounds are somewhat distant but this appears to be secondary to lack of interest in taking deep breaths. No wheezing and no expiratory phase delay. CARDIOVASCULAR - regular rate and rhythm without murmurs. ABDOMEN - soft, nontender, positive bowel sounds. SKIN - warm and dry, well-perfused. EMERGENCY DEPARTMENT COURSE: The patient was given an albuterol plus Atrovent nebulization. This did not result in any change in clinical exam or subjective exam. A chest x-ray was obtained which I interpret to show diffuse scattered increased pleural markings suggestive of interstitial pneumonia. Based on this appearance and the symptoms, my impression is that this could represent pneumonia from an atypical organism. I discussed this with the patient and her mother. ASSESSMENT: Pneumonia. PLAN: 1. Zithromax 500 mg orally on day one followed by 250 mg each day orally on days two through five. 2. Vicodin one orally every 6 hours as needed for chest pain that is associated with coughing (20). 3. Primary physician for reevaluation if symptoms are not resolving in three to five days. 4. Return to the emergency department if there is any worsening, new symptoms, shortness of breath or concern. [id number]_ RANJITH DIAZ MD [place]: Document: [id number] [place], [place] Name: MINO POSADAS EMERGENCY ROOM ENCOUNTER Page 2 of 2 LCN: IGNACIA DSC: 12/27/2003 [place], [place] Name: MR#: : Admit Date: SERA POSADASSARMAD Tapia -33 1990 12/27/2003 Doctor: RANJITH DIAZ MD EMERGENCY ROOM ENCOUNTER Page 1 of 2 documented in this encounter Plan of Treatment Not on filedocumented as of this encounter Visit Diagnoses Not on filedocumented in this encounter
--- OUTSIDE RECORDS SUMMARY | 2022-01-31 07:20 | XMS_ITS | Encounter Summary ---
:1990 Author Organization [facility] Address [address] [place] [id number] Care Team Providers Name Role Phone No Ref-Primary, Physician Primary Care Provider [phone] Reason for Referral Diagnostic Imaging Ultrasound (Routine) - Pending Review Specialty Diagnoses / Procedures Referred By Contact Refer red To Contact Diagnoses related condition, antepartum , July Procedures [facility] MEDICAL [address] [address] Referral ID Status Reason Start Date Expiration Date Visits V isits Requested Authorized [id number] Pending 11/01/2021 11/01/2022 1 1 Review onsultation (Routine: Next available opening) - Pending Review Specialty Diagnoses / Procedures Referred By Contact Refer red To Contact Diagnoses related condition, antepartum July Rh Maternal Med [facility] MED[facility] [address] [facility] [address] [place] [address] [place] [address] Phone: Fax: Referral ID Status Reason Start Date Expiration Date Visits V isits Requested Authorized [id number] Pending 11/01/2021 11/01/2022 1 1 Review Encounter Details Date Type Department Care Team Description 11/01/2021 Transcribe [facility], Ap ril related Maternal [facility] condition, [facility] MEDICAL antepartum (Primary [place] [address]) [address] [place], [place] [address] [address] [place], [place] [phone] [address] (Work) [phone] Social History Tobacco Use Types Packs/Day Years Used Date Never Assessed Sex Assigned at Date Recorded Not on file documented as of this encounter Plan of Treatment Scheduled Referrals Name Type Priority Associated Diagnoses Order [facility] Referral Routine: Next related Expe cted: Referral - available opening condition, 11/01/2021 antepartum (Approximate), Expires: 04/30/2022 documented as of this encounter Results [facility] US Comprehensive Single (11/20/2021 11:00 AM CDT) [...] Comprehensive Pat. Name: MINO KELLY Study Date: 0 11/20/2021 10:05am Pat. NO: [id number] Referring ??MD: SPENCER VILLAGOMEZ Site: [facility] Rn Transfer: Anitha Love RDMS : 1990 Age: 31 [...] ?Brian LIAO ?57.7 ?mm ? 18w 6d ?Nicoalysha ?164.1 ?mm ?19w 1d ?Hadlock Cerebellum tr ?19.1 ? mm ?18w 4d ?Nicolaides AC ?148.8 ?mm ?20w 1d ?88% ?Hadlock Femur ?27.0 ? mm ?18w 2d ?Hadlock Humerus ?26.5 ?mm ? 18w 3d ?Ramon Weight Calculation: EFW ? 282 ? g ? 76% ?Hadlock EFW (lb,oz) ? 0 lb 10 ? oz EFW by ?Hadlock ([id number]) Head / Face / Neck Biometry: Manager Integrated ? 5.8 ? mm CM ?5.0 ? [...] cava. Inferior vena cava. 3-vessel ? view. 4-gxkpyn-zamquft view. Cardiac position. Cardiac size. Cardiac rhythm. [...] have scheduled the patient to return to [facility] in 4 weeks for a echo due [...] might be different from the original. Comprehensive [place]. Name:Geovanni KELLY Date:10/27 10:05am Pat. NO: [id number] MD:[facility]NICK Sheriff :1990Age:31 INDICATION In Vitro Fertilization METHOD [...] 0 lb 10 oz EFW by Hadlock ([id number]) Head / Face / Neck Biometry: Manager Integrated 5.8 mm CM 5.0 mm Nasal bone [...] vena cava. Inferior vena cava. 3-vessel view. 1-hagchb-agvmsyv view. Cardiac po sition. Cardiac size. Cardiac [...] have scheduled the patient to return to [facility] in 4 weeks for a echo due [...] No markers for aneuploidy seen. July Benny [facility] US ORDERABLES documented in this encounter Visit Diagnoses Diagnosis related condition, antepartum - Primary related condition, antepartum documented in this encounter Care Teams [employer] Officer Relationship Specialty Start Date End Date No Ref-Primary, Physician PCP - General 11/16/18 documented as of this encounter
--- OUTSIDE RECORDS SUMMARY | 2022-01-31 07:20 | XMS_ITS | Encounter Summary ---
:1990 Author Organization [place] Address [address] [place] [address] Care Team Providers Name Role Phone No Ref-Primary, Physician Primary Care Provider [phone] Reason for Visit Reason Comments Abdominal Pain Encounter Details Date Type Department Care Team Description 11/16/2018 Emergency [facility] Torsten Madden MD Acute abdominal pain; [facility] Emergency Dep t EMERGENCY PHYSICIANS Adverse reaction to antibiot ic [address] [place], [place] [address] [place] [id number] [place] [address] [place], [place] [id number] (Wo rk) Social History Tobacco Use Types [...] documented in this encounter Discharge Instructions Discharge InstructionsTorsten Madden MD - 11/16/2018 3:40 AM CDT Stop clindamycin Discharge Instructions Abdominal Pain Abdominal pain can be caused by many things. Your evaluation today does not show the exact cause foryour pain. Your doctor today has decided that it is unlikely your pain is due to a life threatening problem, or a problem requiring surgery or hospital admission. Sometimes those problems cannot be found right away, so it is very important that you follow up as directed. Sometimes only the changes which occur over time allow the cause of your pain to be found. Return to the Emergency Department for a recheck in 8-12 hours if your pain continues. If your pain gets worse, changes in location, or feels different, return to the Emergency Department right away. ADULTS: Return to the Emergency Department right away if: You get an oral temperature above 102oF or as directed by your doctor. You have blood in your stools (bright red or black, tarry stools). You keep throwing up or can???t drink liquids. You see blood when you throw up. You can???t have a bowel movement or you can???t pass gas. Your stomach gets bloated or bigger. Your skin or the whites of your eyes look yellow. You faint. You have bloody, frequent or painful urination. You have new symptoms or anything that worries you. CHILDREN: Return to the Emergency Department right away if your child has any of the above-listed symptoms or the following: Pushes your hand away or screams/cries when his/her belly is touched. You notice your child is very fussy or weak. Your child is very tired and is too tired to eat or drink. Your child is dehydrated. Signs of dehydration can be: Your has had no wet diapers in 4-5 hours. Your older child has not passed urine in 6-8 hours. Your infant or child starts to have dry mouth and lips, or no saliva or tears. WOMEN: Return to the Emergency Department right away if you have any of the above-listed symptoms or the following: You have bleeding, leaking fluid or passing tissue from the vagina. You have worse pain or cramping, or pain in your shoulder or back. You have vomiting that will not stop. You have painful or bloody urination. You have a temperature of 100oF or more. Your baby is not moving as much as usual. You faint. You get a bad headache with or without eye problems and abdominal pain. You have a convulsion or seizure. You have unusual discharge from your vagina and abdominal pain. Abdominal pain is pretty common during . Your pain may or may not be related to your . You should follow-up closely with your OB doctor so they can evaluate you and your baby. Until you follow-up with your regular doctor, do the following: Avoid sex and do not put anything in your vagina. Drink clear fluids. Only take medications approved by your doctor. MORE INFORMATION: Appendicitis: A possible cause of abdominal pain in any person who still has their appendix is acuteappendicitis. Appendicitis is often hard to diagnose. Testing does not always rule out early appendicitis or other causes of abdominal pain. Close follow-up with your doctor and re-evaluations may be needed to figure out the reason for your abdominal pain. Follow-up: It is very important that you make an appointment with your clinic and go to the appointment. If you do not follow-up with your primary doctor, it may result in missing an important development which could result in permanent injury or disability and/or lasting pain. If there is any problemkeeping your appointment, call your doctor or return to the Emergency Department. Medications: Take your medications as directed by your doctor today. Before using [id number] medications, ask your doctor and make sure to take the medications as directed. If you have any questions about medications, ask your doctor. Diet: Resume your normal diet as much as possible, but do not eat fried, fatty or spicy foods while you have pain. Do not drink alcohol or have caffeine. Do not smoke tobacco. Probiotics: If you have been given an antibiotic, you may want to also take a probiotic pill or eat yogurt with live cultures. Probiotics have good bacteria to help your intestines stay healthy. Studies have shown that probiotics help prevent diarrhea and other intestine problems (including C. diff infection) when you take antibiotics. You can buy these without a prescription in the pharmacy section of the store. If you were given a prescription for medicine here today, be sure to read all of the information (including the package insert) that comes with your prescription. This will include important information about the medicine, its side effects, and any warnings that you need to know about. The pharmacist who fills the prescription can provide more information and answer questions you may have about the medicine. If you have questions or concerns that the pharmacist cannot address, please call or return to the Emergency Department. Opioid Medication Information Pain medications are among the most commonly prescribed medicines, so we are including this information for all our patients. If you did not receive pain medication or get a prescription for pain medicine, you can ignore it. You may have been given a prescription for an opioid (narcotic) pain medicine and/or have received apain medicine while here in the Emergency Department. These medicines can make you drowsy or impaired. You must not drive, operate dangerous equipment, or engage in any other dangerous activities whiletaking these medications. If you drive while taking these medications, you could be arrested for DUI, or driving under the influence. Do not drink any alcohol while you are taking these medications. Opioid pain medications can cause addiction. If you have a history of chemical dependency of any type, you are at a higher risk of becoming addicted to pain medications. Only take these prescribed medications to treat your pain when all other options have been tried. Take it for as short a time and asfew doses as possible. Store your pain pills in a secure place, as they are frequently stolen and provide a dangerous opportunity for children or visitors in your house to start abusing these powerful medications. We will not replace any lost or stolen medicine. As soon as your pain is better, you should flush all your remaining medication. Many prescription pain medications contain Tylenol?? (acetaminophen), including Vicodin??, Tylenol #3??, Palms??, Lortab??, and Percocet??. You should not take any extra pills of Tylenol?? if you are using these prescription medications or you can get very sick. Do not ever take more than 3000 mg of acetaminophen in any 24 hour period. All opioids tend to cause constipation. Drink plenty of water and eat foods that have a lot of fiber, such as fruits, vegetables, prune juice, apple juice and high fiber cereal. Take a laxative if you don???t move your bowels at least every other day. Miralax??, Milk of Magnesia, Colace??, or Senna?? can be used to keep you regular. Remember that you can always come back to the Emergency Department if you are not able to see your regular doctor in the amount of time listed above, if you get any new symptoms, or if there is anything that worries you. AttachmentsThe following attachments cannot be sent through Care Everywhere.Drug Reaction, Other ([place]oz[place])documented in this encounter Medications at Time of Discharge Medication Sig Dispensed Refills Start Date End Date cephALEXin (KEFLEX) 500 Take 1 capsule (500 28 capsule 0 11/23/2018 MG capsule mg) by mouth 4 times daily for 7 days ondansetron (ZOFRAN ODT) Take 1 tablet (4 mg) 10 tablet 0 0 11/16/2018 11/19/2018 4 MG ODT tab by mouth every 8 hours as needed for nausea ranitidine (ZANTAC) 150 Take 1 tablet (150 30 tablet 0 10/2712/01/2018 MG tablet mg) by mouth 2 times daily for 15 days documented as of this encounter ED Notes Eh Casper RN - 11/16/2018 1:45 AM CDT Pt states seen at urgent care on 11/13 and placed on clindamycin for oral infection. States now having abdominal pain, c/o nausea, denies vomiting or diarrhea. ABCs intact GCS 15 Torsten Madden MD - 11/16/2018 1:40 AM CDT History Chief Complaint: Abdominal Pain HPI Hellen Sigala is a 28 year old female who presents with abdominal pain. The patient states that she was seen at urgent care on 11/13 for dental pain and was placed on clindamycin. The patient states that yesterday she started to feel some cramping and thought it was due to not taking Advil with any food. The patient states that today she experienced worsening abdominal pain that radiated to her back. She states that she is has a low fever and is nauseated but has not vomited. The patient denies any dysuria, hematuria, vaginal discharge or bleeding. Allergies: penicillins Sulfa drugs Medications: clindamycin Celexa seasonale Oxycodone Past Medical History: depression Past Surgical History: Tonsillectomy and adenoidectomy Family History: Depression- mother, father, brother Social History: The patient was accompanied to the ED by significant other. Smoking Status: Never Smoker Smokeless Tobacco: Never Used Alcohol Use: Positive Marital Status: Single Review of Systems Constitutional: Positive for fever. Gastrointestinal: Positive for abdominal pain and nausea. Negative for diarrhea and vomiting. Genitourinary: Negative for dysuria, hematuria, vaginal bleeding and vaginal discharge. All other systems reviewed and are negative. Physical Exam Patient Vitals for the past 24 hrs: BP Temp Temp src Pulse Resp SpO2 11/16/18 0340 127/90 98.2 ??F (36.8 ??C) Oral 70 18 99 % 11/16/18 0146 (!) 134/91 98.1 ??F (36.7 ??C) Oral 72 16 99 % Physical Exam Constitutional: Oriented to person, place, and time. Well appearing. HENT: Oral: inflamed musculare tissue posterior to secondary molar. Head: Normocephalic. Mouth/Throat: Oropharynx is clear and moist. Eyes: EOM are normal. Pupils are equal, round, and reactive to light. Neck: Neck supple. Cardiovascular: Normal rate, regular rhythm and normal heart sounds. Exam reveals no gallop and no friction rub. No murmur heard. Pulmonary/Chest: Effort normal and breath sounds normal. No respiratory distress. No wheezes. No rales. No reproducible chest wall pain. Abdominal: Soft. No distension. No tenderness. No rebound and no guarding. Musculoskeletal: Normal range of motion. Neurological: Alert and oriented to person, place, and time. Moves all 4 extremities spontaneously Skin: No rash noted. No pallor. Emergency Department Course Laboratory: Laboratory findings were communicated with the patient who voiced understanding of the findings. CBC: WBC 6.2, HGB 15.3, PLT 212 CMP: glucose 100 (H) o/w WNL (Creatinine 0.88) Lipase: 76 HCG Qualitative blood: negative UA with micro: bacteria few (A) o/w negative Interventions: 0224 NS, 1 L, IV 0224 Zofran 4 mg IV 0225 Pepcid 20 mg IV 0228 GI cocktail 30 mL oral Emergency Department Course: Nursing notes and vitals reviewed. 0206 I performed an exam of the patient as documented above. 0216 IV was inserted and blood was drawn for laboratory testing, results above. 0300 The patient provided a urine sample here in the emergency department. This was sent for laboratory testing, findings above. 0336 I returned to check on patient. The patient reports feeling better and still has a benign abdomen. 0340 I personally reviewed the laboratory results with the patient and answered all related questions prior to discharge. Impression & Plan Medical Decision Making: Hellen Sigala is a 28 year old female who presents to the emergency department today for evaluation of generalized abdominal pain, interment after starting clindamycin 2 days ago. Differentialincludes adverse reaction due to medication., gastritis, gastroenterics, pancreatitis biliuric colicamong other causes. Work up shows reassuring labs. She otherwise has a begin abdomen that is non tender. I would highly doubt surgical processes and need for imaging. She has had no diarrhea to suggestc.diff. My suspicion is adverse reaction due to the clindamycin she is on for dental infection. Therefore this was stooped, discharged her on keflex as she has a penicillin allergy. She will be discharged with a course of Zantac, Zofran and told to follow up with her primary care physician. She will return for ant worsening symptoms, fever, vomiting or any other concerns. Diagnosis: ICD-10-CM 1. Acute abdominal pain R10.9 2. Adverse reaction to antibiotic T36.95XA Disposition: The patient is discharged to home. Discharge Medications: START taking Dose / Directions cephALEXin 500 MG capsule Commonly known as: KEFLEX Dose: 500 mg Take 1 capsule (500 mg) by mouth 4 times daily for 7 days Quantity: 28 capsule Refills: 0 ondansetron 4 MG ODT tab Commonly known as: ZOFRAN ODT Dose: 4 mg Take 1 tablet (4 mg) by mouth every 8 hours as needed for nausea Quantity: 10 tablet Refills: 0 ranitidine 150 MG tablet Commonly known as: ZANTAC Dose: 150 mg Take 1 tablet (150 mg) by mouth 2 times daily for 15 days Quantity: 30 tablet Refills: 0 Scribe Disclosure: I, Keri Bentley, am serving as a scribe at 2:06 AM on 11/16/2018 to document services personallyperformed by Torsten Madden MD based on my observations and the provider's statements to me. [facility] EMERGENCY DEPARTMENT Torsten Madden MD 11/16/18 0457 documented in this encounter Plan of Treatment Not on filedocumented as of this encounter Procedures Procedure Name Priority Date/Time Associated Comments Diagnosis ROUTINE UA WITH STAT 11/16/2018 3:00 AM Result s for this MICROSCOPIC CDT procedure are i n the results section. CBC WITH PLATELETS & STAT 11/16/2018 2:16 AM R esults for this DIFFERENTIAL CDT procedure are i n the results section. LIPASE STAT 11/16/2018 2:16 AM Results f or this CDT procedure are i n the results section. HCG QUALITATIVE STAT 11/16/2018 2:16 AM Result s for this CDT procedure are i n the results section. COMPREHENSIVE STAT 11/16/2018 2:16 AM Results for this METABOLIC PANEL CDT procedure ar e in the results section. documented in this encounter Results (ABNORMAL) UA with Microscopic (11/16/2018 3:00 AM CDT) [facility] Method Time Signature Color Urine Straw 11/16/2018 [facility] 3:14 AM [facility] Appearance Urine Clear 11/16/2018 [facility] 3:14 AM [facility] Glucose Urine Negative NEG^Negat 11/16/2018 [facility] raisa mg/dL 3:14 AM [facility] Bilirubin Urine Negative NEG^Negat 11/16/2018 [facility] raisa 3:14 AM [facility] Ketones Urine Negative NEG^Negat 11/16/2018 [facility] raisa mg/dL 3:14 AM [facility] Specific [place]en 1.004 1.003 - 11/16/2018 [facility] Urine 1.035 3:14 AM [facility] Blood Urine Negative NEG^Negat 11/16/2018 [facility] raisa 3:14 AM [facility] pH Urine 5.5 5.0 - 7.0 11/16/2018 [facility] pH 3:14 AM [facility] Protein Albumin Negative NEG^Negat 11/16/2018 [facility] Urine raisa mg/dL 3:14 AM [facility] Urobilinogen Normal 0.0 - 2.0 11/16/2018 [facility] mg/dL mg/dL 3:14 AM [facility] Nitrite Urine Negative NEG^Negat 11/16/2018 [facility] raisa 3:14 AM [facility] Leukocyte Negative NEG^Negat 11/16/2018 [facility] Esterase Urine raisa 3:14 AM [facility] Source Midstream 11/16/2018 [place] Urine 3:01 AM [facility] WBC Urine 1 0 - 5 11/16/2018 [place] /HPF 3:14 AM [facility] RBC Urine <1 0 - 2 11/16/2018 [place] /HPF 3:14 AM [facility] Bacteria Urine Few (A) NEG^Negat 11/16/2018 [place] raisa /HPF 3:14 AM [facility] Squamous <1 0 - 1 11/16/2018 [place] Epithelial /HPF /HPF 3:14 AM [facility] Specimen (Source) Anatomical Collection Method Collection Time Re ceived Time Location / / Volume Laterality Examination of URINE SPECIMEN / 11/16/2018 3:00 2018 3:06 midstream urine Unknown AM CDT AM CDT specimen (procedure) Torsten Madden MD LAB - URINE ORDERABLES Performing Organization Address [facility] Phon e Number [facility] [address], [place] [address] [facility] [address] [place], [place] [address], [facility] [phone] HCG qualitative Blood (11/16/2018 2:16 AM CDT) [facility] Method Time Signature HCG Qualitative Negative NEG^Negati 11/16/2018 [place] Serum ve 2:47 AM [facility] Comment: This test is for screening purposes. ??R esults should be interpreted along with the clinical picture. ??Confirmation te sting is available if warranted by ordering [id number], HCG Quantitative Pregna ncy. Specimen Anatomical Collection Method Collection Time Receive d Time (Source) Location / / Volume Laterality Blood specimen 11/16/2018 2:16 AM 019 2:22 (specimen) CDT AM CDT Torsten Madden MD LAB - BLOOD ORDERABLES Performing Organization Address [facility] Phon e Number [facility] [address] [place], [place] [address] [facility] [address] [place] [address], [facility] [phone] Lipase (11/16/2018 2:16 AM CDT) athologist Signature Lipase 76 73 - 393 11/16/2018 [facility] U/L 2:44 AM [facility] Specimen Anatomical Collection Method Collection Time Receive d Time (Source) Location / / Volume Laterality Blood specimen 11/16/2018 2:16 AM 019 2:22 (specimen) CDT AM CDT Torsten Madden MD LAB - BLOOD ORDERABLES Performing Organization Address City/State/ZIP Code Phon e Number [facility] [address] [place] [address] [facility] [address] [phone] (ABNORMAL) Comprehensive metabolic panel (11/16/2018 2:16 AM CDT) athologist Signature Sodium 139 133 - 144 11/16/2018 [place] mmol/L 2:36 AM [facility] Potassium 3.7 3.4 - 5.3 11/16/2018 [place] mmol/L 2:36 AM [facility] Chloride 108 94 - 109 11/16/2018 [place] mmol/L 2:36 AM [facility] Carbon Dioxide 25 20 - 32 11/16/2018 [place] mmol/L 2:42 AM [facility] Anion Gap 6 3 - 14 11/16/2018 [place] mmol/L 2:42 AM [facility] Glucose 100 (H) 70 - 99 11/16/2018 [place] mg/dL 2:42 AM [facility] Urea Nitrogen 9 7 - 30 11/16/2018 [place] mg/dL 2:42 AM [facility] Creatinine 0.88 0.52 - 11/16/2018 [facility] 1.04 mg/dL 2:42 AM [facility] GFR Estimate 89 >60 11/16/2018 [facility] mL/min/{1. 2:42 AM [facility] 73_m2} HOSPITAL Comment: Non GFR Calc Starting 04/14/2018, serum creatinine ba sed estimated GFR (eGFR) will be calculated using the Chronic Kidney Dise ase Epidemiology Collaboration (CKD-EPI) equation. GFR Estimate If >90 >60 mL/min/{1.73_m2} 11/16/2018 2: 42 AM [facility] Comment: GFR Calc Starting 04/14/2018, serum creatinine ba sed estimated GFR (eGFR) will be calculated using the Chronic Kidney Dise ase Epidemiology Collaboration (CKD-EPI) equation. Calcium 8.7 8.5 - 10.1 mg/dL 11/16/2018 2:42 AM [facility] Bilirubin Total 0.5 0.2 - 1.3 mg/dL 11/16/2018 2:44 AM [facility] Albumin 4.3 3.4 - 5.0 g/dL 11/16/2018 2:44 AM [facility] Protein Total 7.6 6.8 - 8.8 g/dL 11/16/2018 2:44 AM [facility] Alkaline Phosphatase 57 40 - 150 U/L 11/16/2018 2:44 AM [facility] ALT 17 0 - 50 U/L 11/16/2018 2:44 AM [facility] AST 12 0 - 45 U/L 11/16/2018 2:44 AM [facility] Specimen Anatomical Collection Method Collection Time Receive d Time (Source) Location / / Volume Laterality Blood specimen 11/16/2018 2:16 AM 019 2:22 (specimen) CDT CDT Torsten Madden MD LAB - BLOOD ORDERABLES Performing Organization Address City/State/ZIP Code Phon e Number [place] [address] [address] [place] [address] [facility] [address] [phone] CBC with platelets differential (11/16/2018 2:16 AM CDT) [facility] Method Time Signature WBC 6.2 4.0 - 11/16/2018 [facility] 11.0 2:25 AM [facility] 10e9/L [facility] RBC Count 4.94 3.8 - 5.2 11/16/2018 [place] 10e12/L 2:25 AM [facility] Hemoglobin 15.3 11.7 - 11/16/2018 [facility] 15.7 g/dL 2:25 AM [facility] Hematocrit 44.5 35.0 - 11/16/2018 [facility] 47.0 % 2:25 AM [facility] MCV 90 78 - 100 11/16/2018 [facility] fl 2:25 AM [facility] MCH 31.0 26.5 - 11/16/2018 [facility] 33.0 pg 2:25 AM [facility] MCHC 34.4 31.5 - 11/16/2018 [facility] 36.5 g/dL 2:25 AM [facility] RDW 11.8 10.0 - 11/16/2018 [facility] 15.0 % 2:25 AM [facility] Platelet Count 212 150 - 450 11/16/2018 [facility] 10e9/L 2:25 AM [facility] Diff Method Automated 11/16/2018 [facility] Method 2:25 AM [facility] % Neutrophils 46.3 % 11/16/2018 [facility] 2:25 AM [facility] % Lymphocytes 40.6 % 11/16/2018 [facility] 2:25 AM [facility] % Monocytes 8.4 % 11/16/2018 [facility] 2:25 AM [facility] % Eosinophils 3.9 % 11/16/2018 [facility] 2:25 AM [facility] % Basophils 0.6 % 11/16/2018 [facility] 2:25 AM [facility] % Immature 0.2 % 11/16/2018 [facility] Granulocytes 2:25 AM [facility] Nucleated RBCs 0 0 /100 11/16/2018 [facility] 2:25 AM [facility] Absolute 2.9 1.6 - 8.3 11/16/2018 [facility] Neutrophil 10e9/L 2:25 AM [facility] Absolute 2.5 0.8 - 5.3 11/16/2018 [facility] Lymphocytes 10e9/L 2:25 AM [facility] Absolute 0.5 0.0 - 1.3 11/16/2018 [facility] Monocytes 10e9/L 2:25 AM [facility] Absolute 0.2 0.0 - 0.7 11/16/2018 [facility] Eosinophils 10e9/L 2:25 AM [facility] Absolute 0.0 0.0 - 0.2 11/16/2018 [place] Basophils 10e9/L 2:25 AM [facility] Abs Immature 0.0 0 - 0.4 11/16/2018 [place] Granulocytes 10e9/L 2:25 AM [facility] Absolute 0.0 11/16/2018 [place] Nucleated RBC 2:25 AM [facility] Specimen Anatomical Collection Method Collection Time Receive d Time (Source) Location / / Volume Laterality Blood specimen 11/16/2018 2:16 AM 019 2:22 (specimen) CDT AM CDT Torsten Madden MD LAB - BLOOD ORDERABLES Performing Organization Address City/State/ZIP Code Phon e Number [place] [address] [address] [place] [address] [facility] [address] [phone] documented in this encounter Visit Diagnoses Diagnosis Acute abdominal pain Abdominal pain, unspecified site Adverse reaction to antibiotic Unspecified adverse effect of other drug , medicinal and biological substance documented in this encounter Administered Medications Inactive Administered Medications - up to 3 most recent administrations Medication Order MAR Action Action Date Dose Rate Site 0.9% sodium chloride BOLUS New Bag 11/16/2018 2:24 AM CDT 1,000 mLs 1000 mL/hr Intravenous, 1,000 mL, ONCE, at 1,000 mL/hr, Administer over 1 Hours, On Fri11/16/18 at 0211, For 1 dose famotidine (PEPCID) injection 20 mg Given 11/16/2018 2:25 AM CDT 20 mg 20 mg, Intravenous, Administer over 2 Minutes, ONCE, On Fri11/16/18 at 0211, For 1 dose, For ordered IV doses 1-20 mg, give IV Push diluted with 5-10ml NS over a minimum of 2 minutes. lidocaine HCl (XYLOCAINE) 2 % 15 mL, alum & Given 11/16/2018 2:28 AM CDT 30 mLs mag hydroxide-simethicone (MYLANTA ES/MAALOX ES) 15 mL GI Cocktail 30 mL, Oral, ONCE, On Fri11/16/18 at 0211, For 1 dose ondansetron (ZOFRAN) injection 4 mg Given 11/16/2018 2:24 AM CDT 4 mg 4 mg, Intravenous, EVERY 30 MIN PRN, nausea, vomiting, Administer over 2-5 Minutes, Starting on Fri11/16/18 at 0209, For 3 doses, May repeat in 30 minutes as needed, up to 3 doses. Irritant. For ordered IV doses 0.1-4 mg, give IV Push undiluted over 2-5 minutes. sodium chloride 0.9% infusion at 125 mL/hr, Intravenous, CONTINUOUS, A dminister after the bolus., Starting on Fri11/16/18 at 0211, Until Fri11/16/18 at 0606 documented in this encounter Active and Recently Administered Medications Times are shown in CDT. Scheduled Medication Order 11/14/2018 11/15/2018 11/16/2018 0.9% sodium chloride BOLUS (COMPLETED) 223 (New Bag - Provider: Regis Garcia RN)034 (Stopped - Provider: Regis Garcia RN) Intravenous, 1,000 mL, ONCE, at 1,000 mL /hr, Administer over 1 Hours, Fri11/16/18 at 0211, For 1 dose famotidine (PEPCID) injection 20 mg (COMPLETED) 224 (Given - Provider: Regis Garcia RN) 20 mg, Intravenous, Administer over 2 Mi nutes, ONCE, Fri11/16/18 at 0211, For 1 dose, For ordered IV doses 1-20 mg, give IV Push diluted with 5-10ml NS over a minimum of 2 minutes. lidocaine HCl (XYLOCAINE) 2 % 15 mL, alu m & mag hydroxide-simethicone (MYLANTA ES/MAALOX ES) 15 mL GI Cocktail (COMPLETED) 227 (Given - Provider: Regis Garcia RN) 30 mL, Oral, ONCE, Fri11/16/18 at 0211, For 1 dose Continuous Medication Order 11/14/2018 11/15/2018 11/16/2018 sodium chloride 0.9% infusion 02 11 (Canceled Entry - Provider: Orders Generic Provider - Comment: Automatically canceled at discontinue of medication order) at 125 mL/hr, Intravenous, CONTINUOUS, A dminister after the bolus., Starting Fri11/16/18 at 0211, Until Fri11/16/18 at 0606 PRN Medication Order 11/14/2018 11/15/2018 11/16/2018 ondansetron (ZOFRAN) injection 4 mg 0224 (Given - Provider: Regis Garcia RN) 4 mg, Intravenous, EVERY 30 MIN PRN, tone sea, vomiting, Administer over 2-5 Minutes, Starting 11/16/18 at 0209, For 3 doses, May repeat in 30 minutes as needed, up to 3 doses. Irritant. For ordered IV doses 0.1-4 mg, give IV Push undiluted over 2-5 minutes. documented in this encounter Care Teams Supervisor Phosphatic Fertilizer Relationship Specialty Start Date End Date No Ref-Primary, Physician PCP - General 11/16/18 documented as of this encounter
--- OUTSIDE RECORDS SUMMARY | 2022-01-31 07:20 | XMS_ITS | Encounter Summary ---
:1990 Author Organization [facility] Address [address] [place] [address] Care Team Providers Name Role Phone Unavailable Primary Care Provider Unavailable Encounter Details Date Type Department Care Team Description 10/19/2003 Emergency room Daria Cavanaugh MD EMERGENCY PHYSIC [address] [place], [place] [address] (Wo rk) Social History Tobacco Use Types Packs/Day Years Used Date Never Assessed Sex Assigned at Date Recorded Not on file documented as of this encounter ED Notes Daria Cavanaugh MD - 10/20/2003 12:00 AM CDT : 88 CHIEF COMPLAINT: Abdominal pain. HISTORY OF PRESENT ILLNESS: Mino Posadas is a 13-year- old female who is otherwise healthy. She has no history of abdominal surgery and was in her normal state of health up until this evening. She states that around 7:30 PM tonight she developed sharp left upper abdominal pain. She had intermittent but gradually increasing pain from 7:30 PM on. Due to persistent and increasing pain she was brought to the Emergency Room by her mother for further evaluation. REVIEW OF SYSTEMS: The patient denies vomiting, sweats, cough, vomiting, diarrhea, hematochezia or melena, fever, dysuria, hematuria, and her last menstrual period was Friday. She is having minimal spotting now. She denies a history of similar pain and denies a history of ulcers or kidney stones.All other systems are negative except as above. PAST MEDICAL HISTORY: Unremarkable. CURRENT MEDICATIONS: The patient was given Tylenol at 9:30 PM today. ALLERGIES: PENICILLIN AND SULFA BOTH GIVE HER A RASH. FAMILY HISTORY: Positive for kidney stones in mother. SOCIAL HISTORY: The patient is in the Emergency Room with her mother. PHYSICAL EXAMINATION: This is a well-appearing, 13-year-old female with vital signs including blood pressure of 125/78, pulse 76, respirations 20, oral temperature 98.4, room air sat 99%. HEENT - The patient's head is normocephalic/atraumatic, conjunctivae normal, patient nonicteric. Mouth is clear, membranes moist. NECK is supple. CARDIAC EXAM is regular. PULMONARY EXAM is clear. BACK EXAM reveals no midline thoracic or lumbar tenderness and no costovertebral angle tenderness. ABDOMEN demonstrates mild left upper and outer quadrant tenderness, no guarding or rebound, bowel sounds positive and within normal limits, no palpable liver and no palpable spleen. EXTREMITIES reveal no edema or rash. SKIN is intact. EMERGENCY DEPARTMENT COURSE: The patient did have a urinalysis and urine test, both of which were negative. She refused and IV and requested oral pain medication. I did give her one Vicodin, and this reduced her pain from 7/10 to 5/10. I had a discussion with the patient's mother regarding patient's symptoms. She has isolated left upper quadrant pain which could be due to early appendicitis, though with a thin, healthy young woman it is hard for me to exclude that possibility. I told the patient's mother that after approximately 5-6 hours of pain I do not think we are going to find the answer at this time. Patient stated her pain was more tolerable after the Vicodin. With totally normal urinalysis, I do not think a CT scan is necessary. For now we will discharge the patient with oral pain medication. PLAN: She will return if she has increasing pain, will use ibuprofen 600 mg q.6, if still pain Vicodin 5/500 one every 4-6 hours as needed for pain (dispense 10), if severe increase in pain, fever of 101 or vomiting return to Emergency Room, otherwise follow up with primary doctor. The patient and her family did agree to the plan and was discharged. DIAGNOSIS: Left upper quadrant abdominal pain, not otherwise specified. [id number] _ DARIA CAVANAUGH MD [place]: Document: [id number] [place], [place] Name: POSADAS, MINO J EMERGENCY ROOM ENCOUNTER Page 2 of 2 LCN: SILVIA DSC: 10/19/2003 [place], [place] Name: MR#: : Admit Date: MINO POSADAS [id number] 1990 10/19/2003 Doctor: DARIA CAVANAUGH MD EMERGENCY ROOM ENCOUNTER Page 1 of 2 documented in this encounter Plan of Treatment Not on filedocumented as of this encounter Visit Diagnoses Not on filedocumented in this encounter
--- OUTSIDE RECORDS SUMMARY | 2022-01-31 07:20 | XMS_ITS | Encounter Summary ---
:1990 Author Organization [facility] Address [address] [place] [address] Care Team Providers Name Role Phone No Ref-Primary, Physician Primary Care Provider [phone] Reason for Visit Reason Comments Ultrasound L2- IVF Encounter Details Date Type Department Care Team Description 11/13/2021 PRE VISIT [facility] Argenis Baron Ultr asound (L2- IVF) Maternal Medicine [facility] [address] [place] [address] Social History Tobacco Use Types Packs/Day Years Used Date Never Assessed Sex Assigned at Date Recorded Not on file documented as of this encounter Plan of Treatment Not on filedocumented as of this encounter Visit Diagnoses Not on filedocumented in this encounter Care Teams Epic Trainer Relationship Specialty Start Date End Date No Ref-Primary, Physician PCP - General 11/16/18 documented as of this encounter
== END 2022-01-31 07:13 | disposition home or self-care (01) ==
PROVIDERS: Visit Provider Physician Assistant
DX: O09.813 Supervision of pregnancy resulting from assisted reproductive technology, third trimester (principal); Z3A.28 28 weeks gestation of pregnancy
CPT/HCPCS: 76816

== ENCOUNTER 2022-02-01 16:05 | Outpatient (CLI) | payer OTHER, SELFPAY ==
--- OUTSIDE RECORDS SUMMARY | 2022-02-01 07:48 | XMS_ITS | Encounter Summary ---
:1990 Author Organization [facility] Address [address] [place] [address] Care Team Providers Name Role Phone Brisa Smith PA-C Primary Care Provider Reason for Visit Reason Comments Medication Questions Encounter Details Date Type Department Care Team Description 09/02/2011 Telephone [facility] Jasmin Whitmore Medication Questions [address] [place] [address] Social History Tobacco Use [...] on filedocumented in this encounter Care Teams Professor Of Industrial Technology Relationship Specialty Start Date End Date Brisa Smith PA-C PCP - General 07/30/10 04/18/15 [address] [place] [address] documented as of this encounter
--- OUTSIDE RECORDS SUMMARY | 2022-02-01 07:48 | XMS_ITS | Encounter Summary ---
:1990 Author Organization [facility] Address [address] [place] [address] Care Team Providers Name Role Phone Lynette Smith PA-C Primary Care Provider Encounter Details Date Type Department Care Team Description [facility]/07[facility] [place] [address] [address] [place], [place] [address] (Wo rk) Social History Tobacco Use Types Packs/Day Years Used Date Smoking Tobacco: Never Assessed Sex Assigned at Date Recorded Not on file documented as of this encounter Last Filed Vital Signs Vital Sign Reading Time Taken Comments Blood Pressure 110/62 09/07/2007 1:11 PM CDT Pulse 72 09/07/2007 1:11 PM CDT Temperature - - Respiratory Rate - - Oxygen Saturation - - Inhaled Oxygen Concentration - - Weight 68.5 kg (150 lb 15.9 oz) 09/07/2007 1:11 PM C: 6 8.5kg CDT Height 172.7 cm (5' 8) 09/07/2007 1:11 PM C: 172.7cm CDT Body Mass Index 22.96 09/07/2007 1:11 PM CDT Body Mass Index Percentile 68.37 % 09/07/2007 1:11 PM CDT Growth Chart: [facility] (Girls, 2-20 Years) documented in this encounter Progress Notes Lynette Smith PA-C - 09/07/2007 12:01 AM CDT Progress Notes signed by Lynette Smith PA-C at 09/11/07 1037 Author: Lynette Smith PA-C Service: (none) Author Type: Physician Heat Treat Worker Filed: 08/18/10 0546 Note Time: 09/07/07 0001 Status: Signed Birth Attendant: Lynette Smith PA-C (Physician Heat Treat Worker) NAME: MINO POSADAS MR#: [id number] ACCT: [id number] VISIT: [id number] DICTATING CLINICIAN: LYNETTE SMITH PA-C JOB: [id number] LOC: 1702 CLINIC PROGRESS NOTE DATE OF VISIT: 09/07/2007 SUBJECTIVE: Mino is 17 years old and presents to the clinic today for a sports physical and immunization update. She will be attending [employer] next year. She will also be on the track team. CORPORATE BOND TRADER HISTORY: Periods are currently regular, not sexually active at this time. Would be interested in starting on control pills. She does have a serious boyfriend, has been sexually active in the past. Is not due for a Pap until October or November. MEDICAL HISTORY: No chronic illnesses. She does not experience chest pain, shortness of breath related to running or activity. There is no family history of sudden cardiac . She denies issues with concussions or other injuries. FAMILY HISTORY: No heart disease, diabetes, or sudden cardiac or cancer. SOCIAL HISTORY: She attends [employer]. Does not smoke, drink alcohol, or use drugs. 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 Will be majoring in civil engineering. ADR/ALLERGIES: CURRENT IN TODAY'S [employer] HEALTH PROFILE FLOW SHEET. MEDICATIONS: Current in today's [employer] health profile flow sheet. OBJECTIVE: VS: Current in today's [employer] health profile flow sheet. Patient pleasant, in no acute distress. Oriented to person, place, and time. TMs, external canals are normal. Posterior pharynx is clear. NECK: Supple, without thyroid enlargement or adenopathy. LUNGS: Clear. HEART: Regular rate and rhythm. ABDOMEN: Positive bowel sounds all 4 quadrants. No tenderness, masses or guarding. Musculoskeletal and neurologic exams today are normal. ASSESSMENT: A sports and college physical. PLAN: Hepatitis A, HPV, and are updated. Tetanus shot also updated. Urine, CBC, cholesterol, HDL, and sickle cell screening will be checked per requirements of her college physical form. I did start her on oral contraceptive pills, Sprintec, and she should follow up for a Pap smear in 2 to 3 months, as well as a medication check. She is satisfied with plan and will call with questions, concerns, or problems. IMPRESSION: Routine health maintenance examination. TMG:[id number] C: 09/09/07 14:31 DOCUMENT: [id number] documented in this encounter Plan of Treatment Not on filedocumented as of this encounter Visit Diagnoses Not on filedocumented in this encounter Care Teams Hand Molder Relationship Specialty Start Date End Date Lynette Smith PA-C PCP - General 07/30/10 04/18/15 [address] [place] [address] documented as of this encounter
--- OUTSIDE RECORDS SUMMARY | 2022-02-01 07:48 | XMS_ITS | Encounter Summary ---
:1990 Author Organization [facility] Address [address] [place] [address] Care Team Providers Name Role Phone Brisa Smith PA-C Primary Care Provider Encounter Details Date Type Department Care Team Description 11/02/2008 Office Visit [facility] Amos Brisa Smith PA-C [address] [place], [place] [address] [address] [place], [place] [address] (Wo rk) Social History [...] signed by Brisa Smith PA-C at 11/02/08 9746 Author: Brisa Smith PA-C Service: (none) Author Type: Physician Carrot Buncher Filed: 08/18/10 1626 Note Time: 11/02/08 0001 Status: Signed Installation Superintendent: Brisa Smith PA-C (Resource) Subjective: This is [...] anti-inflammatory medications. She is not tried any eoti-cjn-sdqaild products. Food aggravates her symptoms causing her [...] on filedocumented in this encounter Care Teams Engineering Librarian Relationship Specialty Start Date End Date Brisa Smith PA-C PCP - General 07/30/10 04/18/15 [address] [place] [address] documented as of this encounter
--- OUTSIDE RECORDS SUMMARY | 2022-02-01 07:48 | XMS_ITS | Encounter Summary ---
:1990 [facility] Address [address], [place] [address] Care Team Providers Name Role Phone Brisa Smith PA-C Primary Care Provider Encounter Details Date Type Department Care Team Description 09/07/2007 PN Conversion Only HELENA CONVERSION [address] [place] [address] Social History Tobacco Use Types Packs/Day Years Used Date Smoking Tobacco: Never Assessed Sex Assigned at Date Recorded Not on file documented as of this encounter Plan of Treatment Not on filedocumented as of this encounter Visit Diagnoses Not on filedocumented in this encounter Care Teams Criminal Records Technician Relationship Specialty Start Date End Date Brisa Smith PA-C PCP - General 07/30/10 04/18/15 [address] [place], [place] [address] documented as of this encounter
--- OUTSIDE RECORDS SUMMARY | 2022-02-01 07:48 | XMS_ITS | Encounter Summary ---
:1990 Author Organization [facility] Address [address] [place] [address] Care Team Providers Name Role Phone Brisa Smith PA-C Primary Care Provider Reason for Visit Reason Comments Annual Exam Ear Pain Encounter Details Date Type Department Care Team Description 09/02/2011 Office Visit [facility] Jasmin Crystal p hysical exam (Primary Dx); Medicine K Screening for malignant neop lasm of the cervix; [address] Depression, major, recurrent ; [place], [place] Screening for STDs (sexually transmitted diseases); [address] Contraceptive management; [phone] Need vaccinatio n-viral disease; Vacc for viral [...] HI. Denies recent life changes or stressors. 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 Smoking [...] History Narrative Currently home from college. Attends [employer] will be a senior next fall studying [...] adenopathy. Pelvic: Normal external genitalia and urethra. [place], moist vaginal and cervical mucosa, without lesions. [...] Component Value Ref Test Analysis Performed At [facility] gist Range Method Time Signature Chlamydia Chlamydia [...] The amplified DNA assay is cleared by [facility] for non-medicolegal diagnostic testing in [facility] adult population. Neisseria gonorrhea DNA Probe ?FINAL ? 09/04/11 10:24 Neisseria gonorrhea NEGATIVE by DNA amp lification. The amplified DNA assay is cleared by [facility] for non-medicolegal diagnostic testing in [facility] adult population. Specimen (Source) Anatomical Collection [...] CDT Final GYNECOLOGICAL CYTOLOGY REPORT Pathology #: [id number] ?Date Obtained: 09/02/2011 ? Date Received: 09/03/2011 [...] Report Jasmin Crystal LAB_1 Performing Organization Address City/[facility]/ZIP Code Phon e Number HP CONVERSION Pap Smear Screening (09/02/2011 9:45 AM CDT) P athologist Signature PAP Routine Collected HP CONVERSION Specimen (Source) Anatomical Collection Method Collection Time Re ceived Time Location / / Volume Laterality 09/02/2011 9:45 AM CDT Jasmin Crystal LAB_1 Performing Organization Address City/[facility] Phon e Number HP CONVERSION documented in [...] unspecified documented in this encounter Care Teams Glucose And Syrup Weigher Relationship Specialty Start Date End Date Brisa Smith PA-C PCP - General 07/30/10 04/18/15 [address] [place] [address] documented as of this encounter
--- OUTSIDE RECORDS SUMMARY | 2022-02-01 07:48 | XMS_ITS | Encounter Summary ---
:1990 Author Organization [facility] Address [address], [place] [address] Care Team Providers Name Role Phone Brisa Smith PA-C Primary Care Provider Encounter Details Date Type Department Care Team Description 09/30/2007 PN Conversion Only HELENA CONVERSION Brisa Smith, [address] [place] [address] [place], [place] [address] (Wo rk) Social History [...] on filedocumented in this encounter Care Teams Bookstore Clerk Relationship Specialty Start Date End Date Brisa Smith PA-C PCP - General 07/30/10 04/18/15 [address] [place] [address] documented as of this encounter
--- OUTSIDE RECORDS SUMMARY | 2022-02-01 07:48 | XMS_ITS | Encounter Summary ---
:1990 Author Organization [facility] Address [address] [address] Care Team Providers Name Role Phone Brisa Smith PA-C Primary Care Provider Reason for Visit Reason Comments Other Encounter Details Date Type Department Care Team Description 11/02/2008 Telephone [facility], Message Other [address] [place] [address] Social History Tobacco Use Types Packs/Day Years Used Date Smoking Tobacco: Never Assessed Sex Assigned at Date Recorded Not on file documented as of this encounter [facility], Message - 11/02/2008 10:32 AM CDT Phone Note filed by [employer] at 08/17/1051 Author: [employer] Service: (none) Author Type: (none) Filed: 08/17/10 0651 Note Time: 11/02/08 1032 Status: Signed Commissioned Security Officer: [employer] (Resource) Front Line Sx Call Caller Name/Relationship:Hellen Primary Dynamics Ax Technical Architect: Symptom or request? sores in mouth/under tongue since Friday, tongue feels swollen Is appointment scheduled & when? Gear Shaper Set Up Operator:Hellen Best call back number:[phone] Is it OK to leave a confidential message on this voicemail? h *[id number] Created on 02Nov2008 10:32am by BHARATHI DESHPANDE K On [id number] 10:58am CAROLYN BROWN wrote: CLINICIAN FOLLOW-UP: FYI (note is complete). IMPRESSION: mouth sores/? Xagz-Vyoz-cjc-Mouth Disease. SYMPTOMS: Pt is 18 yr old [...] medical record. CARE ADVICE: Care Advice REASSURANCE: Arzu-grbi-injgv disease is a harmless viral rash. LIQUID [...] denies additional questions. References Used: Pediatric Telephone Protocols--Ablt-Rcbk-bgf-Mouth Disease. Call Complete. *SH~BS~HANDFOOTMTH ~ . OPERATIONS MANAGER documented in this encounter Plan of Treatment Not on filedocumented as of this encounter Visit Diagnoses Not on filedocumented in this encounter Care Teams Chief Revenue Officer Relationship Specialty Start Date End Date Brisa Smith PA-C PCP - General 07/30/10 04/18/15 [address] [place] [address] documented as of this encounter
--- OUTSIDE RECORDS SUMMARY | 2022-02-01 07:48 | XMS_ITS | Encounter Summary ---
:1990 Author Organization [facility] Address [address] [place] [address] Care Team Providers Name Role Phone Brisa Smith PA-C Primary Care Provider Reason for Visit Reason Comments Sinus Problem Encounter Details Date Type Department Care Team Description 04/19/2011 Office Visit [facility] Chet Pandya M D Acute pharyngitis Medicine [address] (Primary Dx) [address] [place] [phone] Social History Tobacco Use Types Packs/Day Years Used Date Smoking Tobacco: Never Assessed Sex Assigned at Date Recorded Not on file documented as of this encounter Last Filed Vital Signs Vital Sign Reading Time Taken Comments Blood Pressure 121/69 04/19/2011 9:37 AM GARAGE LABORER Pulse 87 04/19/2011 9:37 AM GARAGE LABORER Temperature 36.9 ??C (98.4 ??F) 04/19/2011 9:37 AM GARAGE LABORER Respiratory Rate 16 04/19/2011 9:37 AM GARAGE LABORER Oxygen Saturation - - Inhaled Oxygen Concentration - - Weight 70.3 kg (155 lb) 04/19/2011 9:37 AM GARAGE LABORER Height - - Body Mass Index 23.57 [...] 04/19/2011 10:19 AM R esults for this GARAGE LABORER procedure are i n the results section. RAPID STREP SCREEN Routine 04/19/2011 9:56 AM Acute pharyngiti s Results for this WAIVED GARAGE LABORER procedure are i n the results section. documented in this encounter Results Beta Strep Followup (04/19/2011 10:19 AM GARAGE LABORER) [facility] [employer] Method Time Signature Strep Screen No beta [...] / Volume Laterality Throat: 04/19/2011 10:19 AM GARAGE LABORER Chet Pandya MD LAB_1 Performing Organization Address City/State/ZIP Code Phon e Number HP CONVERSION Rapid Strep Screen Waived (04/19/2011 9:56 AM GARAGE LABORER) Component Value Ref Test Analysis Performed At [facility] Range Method Time Signature Rapid Strep [...] / Volume Laterality Throat: 04/19/2011 9:56 AM GARAGE LABORER Narrative HP CONVERSION - 04/19/2011 10:20 AM GARAGE LABORER Performed at [facility], [address] [place] [address] Chet Pandya MD LAB_1 Performing Organization Address City/State/ZIP Code Phon e Number HP CONVERSION documented in this encounter Visit Diagnoses Diagnosis Acute pharyngitis - Primary documented in this encounter Care Teams Conductor Sleeping Car Relationship Specialty Start Date End Date Brisa Smith PA-C PCP - General 07/30/10 04/18/15 [address] [place] [address] documented as of this encounter
--- OUTSIDE RECORDS SUMMARY | 2022-02-01 07:48 | XMS_ITS | Encounter Summary ---
:1990 Author Organization [facility] Address [address] [address] Care Team Providers Name Role Phone Found, No Pcp MD Primary Care Provider Unavailable Reason for Visit Reason Comments Post Visit Follow Up Encounter Details Date Type Department Care Team Description 11/14/2018 Nurse Triage [place] Nurse E[place] Ortiz[place] [address] [place] [address] [facility] [phone] [place] [address] (Wo rk) Social History Tobacco [...] used: RECENT MEDICAL VISIT FOR ILLNESS FOLLOW-UP [id number] Problem list reviewed as related to this call. documented in this encounter Plan of Treatment Not on filedocumented as of this encounter Visit Diagnoses Not on filedocumented in this encounter Care Teams Brush Stainer Relationship Specialty Start Date End Date Found, No Pcp, PCP - General 05/02/15 [address] [place] [address] documented as of this encounter
--- OUTSIDE RECORDS SUMMARY | 2022-02-01 07:48 | XMS_ITS | Clinical Summary ---
:1990 Author Organization [facility] Address [address] [place] [address] Care Team Providers Name Role Phone Found, [...] for each transition of care or referral. LETSGROOP Allergies Active Allergy Reactions Severity Noted Date [...] 11/23/2001, 10/15/2001 Influenza IIV4 (Quadrivalent) 0.5mL 03/18/2019 (60945) MCV4 (Menactra) 09/07/2007 MMR 11/23/2001 TDAP (ADACEL) [...] 72.1 kg (159 lb) 05/20/2019 4:12 PM POWER CHISEL OPERATOR Height 172.7 cm (5' 8) 03/18/2019 3:47 PM POWER CHISEL OPERATOR Body Mass Index 24.18 03/18/2019 3:47 PM POWER CHISEL OPERATOR Plan of Treatment Health Maintenance Due Date [...] Effective Phone Address T e Group Dates [facility] [id number] 2020-Pr [phone] Comp INSURANCE WC INSURANCE WC esent [phone] [place] [address] MEDICA MEDICA CHOICE [id number] 2018-Pre Com mercial sent Hellen Sigala Personal/Family Self [phone] [address] [phone] Otilia DIANA (Work) [phone] Hellen Sigala Workers Comp Self [phone] [phone] Otilia DIANA (Work) [id number] Care Teams Stringed Instrument Tuner Relationship Specialty Start Date End Date Found, No Pcp, PCP - General 05/02/15 [address] [place] [address]
--- OUTSIDE RECORDS SUMMARY | 2022-02-01 07:48 | XMS_ITS | Encounter Summary ---
:1990 Author Organization [facility] Address [address] [place] [address] Care Team Providers Name Role Phone Brisa Smith PA-C Primary Care Provider Reason for Visit Reason Comments Annual Exam Encounter Details Date Type Department Care Team Description 09/08/2012 Office Visit [facility] Jasmin Crystal Routine physical examination (Primary Dx); [facility] Screening for malignant neop lasm of the cervix; [address] [address] Screening for STDs (sexually transmitted diseases); [place], [place] Contraceptive management; [id number] Screen for STD (sexually tra nsmitted disease); [phone] Bacterial vagin itis; Vaginal yeast i nfection [...] negative Neurological ROS: negative Dermatological ROS: negative K 12 Principal History: : LMP: Patient's last menstrual period [...] Years of Education: N/A 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 [...] No Social History Narrative Recently graduated from [employer] in civil engineering. 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 She is currently dating. Immunizations: Immunization History [...] adenopathy. Pelvic: Normal external genitalia and urethra. [place], moist vaginal and cervical mucosa, without lesions. [...] agrees with the plan, all questions answered. ERSAL BRANCH CONSULTANT Miscellaneous - 06/07/2016 7:11 AM CSTNotes Recorded by Jasmin Crystal PA-C on 09/15/2012 at 10:43 AMPlease call patient pap smear normal, STD screen for gonorrhea/chlamydia negative ERSAL BRANCH CONSULTANT Assessment & Plan Note - Jasmin Crystal [...] (ABNORMAL) WET PREP (09/08/2012 11:12 AM CDT) [email or web address] Method Time Signature WETPR White Moderate HP [...] 09/08/2012 11:31 AM CDT Performed at [facility], [address] [place] [address] Transcriptions 06/07/2016 7:24 AM CSTNotes Recorded by [...] Component Value Ref Test Analysis Performed At [email or web address] Range Method Time Signature Source Endocervical for [...] 08/16/2016 1:02 AM CDTNotes Recorded by Jasmin Crsytal PA-C on 09/15/2012 at 10:43 AMPlease call [...] CDT FINAL GYNECOLOGICAL CYTOLOGY REPORT Pathology #: [id number] ?Date Obtained: 09/08/2012 ? Date Received: 09/09/2012 [...] vagina documented in this encounter Care Teams Oral Surgery Assistant Relationship Specialty Start Date End Date Brisa Smith PA-C PCP - General 07/30/10 04/18/15 [address] [place] [address] documented as of this encounter
--- OUTSIDE RECORDS SUMMARY | 2022-02-01 07:48 | XMS_ITS | Encounter Summary ---
:1990 Author Organization [facility] Address [address] [place] [address] Care Team Providers Name Role Phone Brisa Smith PA-C Primary Care Provider Encounter Details Date Type Department Care Team Description 09/02/2008 Office Visit Rocio Griffiths MBBS [address] [place] [address] [place] [address] [place] [address] [phone] (Wo rk) Social History Tobacco Use Types [...] Rocio Bermudez MD at 09/08/08 1031 Author: ZAK Giles Service: (none) Author Type: Physician Filed: 08/18/10 1454 Note Time: 09/02/08 0001 Status: Signed Director Human Services: ZAK Giles (Physician) SUBJECTIVE: 17-year-old patient with [...] on filedocumented in this encounter Care Teams Job Honer Relationship Specialty Start Date End Date Brisa Smith PA-C PCP - General 07/30/10 04/18/15 [address] [place] [address] documented as of this encounter
--- OUTSIDE RECORDS SUMMARY | 2022-02-01 07:48 | XMS_ITS | Encounter Summary ---
:1990 Author Organization [facility] Address [address] [address] Care Team Providers Name Role Phone Lynette Smith PA-C Primary Care Provider Reason for Visit Reason Comments Other Encounter Details Date Type Department Care Team Description 11/15/2008 Telephone [facility], Message Other [address] [place] [address] Social History Tobacco Use Types Packs/Day Years Used Date Smoking Tobacco: Never Assessed Sex Assigned at Date Recorded Not on file documented as of this encounter [facility], Message - 11/15/2008 12:11 PM CDT Phone Note filed by [employer] Universe at 08/17/10 0430 Author: [employer] Universe Service: (none) Author Type: (none) Filed: 08/17/10 5580 Note Time: 11/15/08 1211 Status: Signed Health And Safety Director: [employer]et Universe (Resource) Front Line Sx Call Caller Name/Relationship:ptHellen Primary Community Assistant:Luis Symptom or request?Pt was earlier in the month for stomach pain, pt was given rx that is not working. Pt is still having same sx. Is appointment scheduled & when?no Casket Liner:pt Best call back number:[phone] c Is it OK to leave a confidential message on this voicemail?yes *[id number] Created on [id number] 12:11pm by JESSICA KITCHEN On 15Nov2008 12:21pm JESSICA HERNÁNDEZ wrote: Left message to callback to [id number] and ask to speak with a nurse. [...] agrees. Pt was transfered to scheduling. D TUBER MACHINE OPERATOR documented in this encounter Plan of Treatment Not on filedocumented as of this encounter Visit Diagnoses Not on filedocumented in this encounter Care Teams Security Director Relationship Specialty Start Date End Date Lynette Smith, LUIS PCP - General 07/30/10 04/18/15 [address] [place] [address] documented as of this encounter
--- OUTSIDE RECORDS SUMMARY | 2022-02-01 07:48 | XMS_ITS | Encounter Summary ---
:1990 Author Organization [facility] Address [address] [address] Care Team Providers Name Role Phone Brisa Smith PA-C Primary Care Provider Encounter Details Date Type Department Care Team Description 11/18/2008 PN Conversion Only [facility] [address] [place] [address] Social History Tobacco Use Types Packs/Day Years [...] CDT : ??Negative right upper quadrant ultrasound. 087544/mb Dictating JOE MENDES Radiologist Narrative 11/18/2008 8:12 [...] : Negative right upper quadrant ultrasou nd. 215546/[facility] Dictating JOE MENDES Radiologist Brisa Smith PA-C RAD US documented in this encounter Visit Diagnoses Not on filedocumented in this encounter Care Teams Field Control Inspector Relationship Specialty Start Date End Date Brisa Smith PA-C PCP - General 07/30/10 04/18/15 [address] [place] [address] documented as of this encounter
--- OUTSIDE RECORDS SUMMARY | 2022-02-01 07:48 | XMS_ITS | Encounter Summary ---
:1990 Author Organization [facility] Address [address], [place] [address] Care Team Providers Name Role Phone Found, No Pcp MD Primary Care Provider Unavailable Reason for Visit Reason Comments PAIN, MOUTH Encounter Details Date Type Department Care Team Description 11/13/2018 Hospital Encounter [facility] Eber Reyes, Dental infection Care LUIS [address] [facility] [address] [place] [address] [facility] [phone] [place], [place] [id number] Social History Tobacco Use Types Packs/Day Years [...] your doctor if you can take an fxit-vaa-gcqhdmo medicine. ?? Take your antibiotics as directed. Do not stop taking them just because you feel better. You needto take the full course of antibiotics. To prevent tooth abscess ?? [place] and floss every day, and have regular [...] can you learn more? 1. Go to https://[employer]library or [employer]/Chamelicrary. 2. Enter L466 in the search box. Current as of: January 28, 2018 Content Version: 12.0 ?? 3607-3318 [employer]. Care instructions adapted under license by your healthcare professional. If you have questions about a medical condition or this instruction, always ask your healthcare professional. [employer] disclaims any warranty or liability for your [...] medical conditions. Adverse Drug Reactions: Reviewed in [facility] Penicillins and Sulfa antibiotics Medications: Reviewed in [facility] No current facility-administered medications for this [...] Tablet 0 Past Medical History: Reviewed in [facility] Past Medical History: Diagnosis Date ??? Varicella OBJECTIVE: Vital Signs: Reviewed in [facility] Filed Vitals: 11/13/18 0806 BP: 112/69 [...] No trismus. Lymph: No submandibular or cervical supply chain generalist [place]. Cardiac: rrr. ASSESSMENT: 1. Dental infection [...] worse. documented in this encounter Care Teams Enterprise Application Architect Relationship Specialty Start Date End Date Found, No Pcp, PCP - General 05/02/15 [address] [place] [address] documented as of this encounter
--- OUTSIDE RECORDS SUMMARY | 2022-02-01 07:48 | XMS_ITS | Encounter Summary ---
:1990 Author Organization [facility] Address [address], [place] [address] Care Team Providers Name Role Phone Lynette Smith PA-C Primary Care Provider Reason for Visit Reason Comments Other Encounter Details Date Type Department Care Team Description 11/23/2008 Telephone Kelly Van Gogh Hair Colour [facility] [employer] [place], Message Other [address] [place] [address] Social History Tobacco Use Types Packs/Day Years Used Date Smoking Tobacco: Never Assessed Sex Assigned at Date Recorded Not on file documented as of this encounter Progress Notes Yinka Ramsey MA - 11/23/2008 9:47 AM CDT Phone Note filed by Yinka Ramsey MA at 08/17/10831 Author: Yinka Ramsey MA Service: (none) Author Type: Semiconductor Testing Group Leader Filed: 08/17/10831 Note Time: 11/23/08946 Status: Signed First Sampler: Yinka Ramsey MA (Semiconductor Testing Group Leader) Results of US in LW. Created on 23Nov2008 9:47am by YINKA RAMSEY On 23Nov2008 10:13am LYNETTE SMITH wrote: Please notify patien that ultrasound is normal. Acknowledged by LYNETTE SMITH on 06Gua18 10:13am On [id number] 10:22am CHLOE QUINN wrote: LM at [phone] (# given by someone at day phone# below) for pt to call for above info. Any nurse can relay result. On 23Nov2008 10:23am ANT PANG wrote: pt is returning call. On 23Nov2008 10:43am JESSICA ISAAC wrote: results given, no further questions at this time. LEADER documented in this encounter Plan of Treatment Not on filedocumented as of this encounter Visit Diagnoses Not on filedocumented in this encounter Care Teams Beauty Sales Advisor Relationship Specialty Start Date End Date Lynette Smith PA-C PCP - General 07/30/10 04/18/15 [address] [place] [address] documented as of this encounter
--- OUTSIDE RECORDS SUMMARY | 2022-02-01 07:48 | XMS_ITS | Encounter Summary ---
:1990 Author Organization [facility] Address [address] [place] [address] Care Team Providers Name Role Phone Brisa Smith PA-C Primary Care Provider Encounter Details Date Type Department Care Team Description 07/12/2008 Office Visit Rocio Griffiths MBBS [address] [place] [address] [place] [address] [place] [address] [phone] (Wo rk) Social History Tobacco Use Types [...] signed by Rocio Bermudez MD at 08/14/08 2813 Author: ZAK Giles Service: (none) Author Type: Physician Filed: 08/18/10 1330 Note Time: 07/12/08 0001 Status: Signed Sound System Installer: ZAK Giles (Physician) NAME: MINO POSADAS MR#: [id number] ACCT: [id number] VISIT: [id number] DICTATING CLINICIAN: Rocio Bermudez MD CONFIRM #: [id number] LOC: 1702 CLINIC PROGRESS NOTE DATE OF [...] was agreeable with plan. PLAN: See assessment. SR:[id number] C: 07/12/08 13:15 CONFIRM #: [id number] documented in this encounter Plan of Treatment Not on filedocumented as of this encounter Visit Diagnoses Not on filedocumented in this encounter Care Teams Small Animal Caretaker Relationship Specialty Start Date End Date Brisa Smith PA-C PCP - General 07/30/10 04/18/15 [address] [place] [address] documented as of this encounter
--- OUTSIDE RECORDS SUMMARY | 2022-02-01 07:48 | XMS_ITS | Encounter Summary ---
:1990 Author Organization [facility] Address [address], [place] [address] Care Team Providers Name Role Phone Brisa Smith PA-C Primary Care Provider Reason for Visit Reason Comments INJURY, SHOULDER Encounter Details Date Type Department Care Team Description 06/12/2011 Telephone [facility] Brisa Smith PA-C INJURY, SHOULDER [address] [place] [address] [place] [phone] [place], [place] [address] (Wo rk) Social History [...] Friday for appt, as she is in [place] at school, but will also check with her parents on if their insurance covers somewhere down there in case pain worsens. She will ice and us ibuprofen until then. Sully Sanabria - 06/12/2011 9:49 AM CST Non -Symptom Message from Front Line Primary Care Provider: Brisa Smith PA-C Message: Pt would like advice from a Nurse regarding her shoulder pain R PLACER documented in this encounter Plan of Treatment Not on filedocumented as of this encounter Visit Diagnoses Not on filedocumented in this encounter Care Teams System Planning Engineer Relationship Specialty Start Date End Date Brisa Smith PA-C PCP - General 07/30/10 04/18/15 [address] [place] [address] documented as of this encounter
--- OUTSIDE RECORDS SUMMARY | 2022-02-01 07:48 | XMS_ITS ---
[...] intramuscular solution Active ? Not available Inject 36938 units as needed by intramuscular route. clomiphene [...] av ailable Notes: Normal 04/28/2011 Extraction of [place] Tooth Information n ot available 04/28/1998 Tonsilectomy/adenoids Information not av ailable 08/01/2020 US, Transvaginal Ef189_gzrhgtvvh_jgea a [address] [place] [address] (Work Place) 08/10/2020 US, Ovary, for Follicular Monitoring Cc0 [facility] [address] [place] [address] (Work Place) 08/29/2020 US, Ovary, for Follicular Monitoring Cc0 [facility] [address] [place] [address] (Work Place) 09/07/2020 US, Ovary, for Follicular Monitoring Cc0 [facility] [address] [place] [address] (Work Place) 09/27/2020 US, Ovary, for Follicular Monitoring Cc0 [facility] [address] [place] [address] (Work Place) 10/04/2020 US, Ovary, for Follicular Monitoring Cc0 [facility] [address] [place] [address] (Work Place) 10/11/2020 US, Ovary, for Follicular Monitoring Cc0 [facility] [address] [place] [address] (Work Place) 11/01/2020 US, Ovary, for Follicular Monitoring Cc0 [facility] [address] [place] [address] (Work Place) 12/29/2020 US, Ovary, for Follicular Monitoring Cc0 [facility] [address] [place] [address] (Work Place) 01/08/2021 US, Ovary, for Follicular Monitoring Cc0 [facility] [address] [place] [address] (Work Place) Results Lab Results Date Name Specimen Result Interpretation Description Value Range Status Address ? 03/29/2021 Cytology ? Interpretation nilm ? Fi nal [facility]: Report, [address] , Smear or Isabel Scraping, Cervical or Vaginal ? ? ? Category: nil ? Final [facility]: [address] [facility] ? ? ? Adequacy: secni ? Final [facility]: [address] [facility] ? ? ? Clinician comment ? Final [facility]: Provided ICD10: 3 [address] [facility] ? ? ? Performed by: comment ? Final L [facility]: [address] [facility] ? ? ? Note: comment ? Final [facility]: [address] [facility] ? ? ? Test comment ? Final [facility]: Methodology: [address] [place] [address] ? ? ? HPV Aptima negative negative Final L [facility]: [address] [facility] 09/15/2020 Progesteron ? Progesterone, 10.6 ? Complete John e, Serum Serum NG/mL [facility] - Lab: [address], [place] 07/04/2020 Extra Tube ? Note ? ? Complete John [facility] (Lab [facility]) Health - Lab: [address], [place] 07/04/2020 Estradiol, ? Estradiol, 44.7 ? Comp lete [place] Serum Serum pg/mL [facility] - Lab: [address], [place] 07/04/2020 Prolactin, ? Prolactin, 8.7 NG/mL ? C omplete [place] Serum Serum [facility] - Lab: [address], [place] 07/04/2020 FSH ? FSH, Serum 6.9 ? Complete John (Follicle-s mIU/mL [facility] - Hormone), Lab: [address], [place] 07/04/2020 Lh ? Lutenizing 3.0 ? Complete John (Luteinizin Hormone (LH) mIU/mL [facility] Hormone), [facility] - Serum Lab: [address], [place] 07/04/2020 Thyroid ? Tsh 0.887 0.358-3.7 Complete John [place], uIU/mL 40 uIU/mL [facility] Health - Lab: [address], [place] 07/04/2020 Rubella ? Rubella Immune immune immune Com plete [place] Virus IgG Status Reported [facility] Ab, QL, Health - Serum Lab: [address], [place] 07/04/2020 Anti-cervantes ? Antimullerian 3.9 NG/mL 0.58 -8.1 Complete [facility] Hormone Hormone (Amh), S NG/mL [facility] (Amh), [facility] - Serum Lab: [address], [place] ? ? Result UPT negative ? ? Tx461_vcwhkz Test, Urine ale_b urnsvil le: [address] [facility] [address] [facility] [place] ? ? Result UPT negative ? ? Xx707_kviypd Test, Urine ale_b urnsvil le: [address] [facility] [address] [facility] [place] ? ? Result UPT negative ? ? Yo893_ccmtdx Test, Urine ale_e maria alejandra: [address] , [place] Past Encounters 03/29/2021 Gynecologic Examination EZEKIEL Conner: 305 [facility] Ze al, [address] [address], Ph. 01/10/2021 Female Infertility; Artificial Inseminat joshua García MD: [facility], [address] [address], Ph. 01/09/2021 Laura Sky MD: [address] panda, [address] [address], Ph. 01/08/2021 Female Infertility Laura Sky MD: [address] panda, [address] [address], Ph. 01/08/2021 Fertility Problem Laura Sky MD: [address] panda, [address] [address], Ph. 12/29/2020 Primary Infertility Laura Sky MD: [address], [address], [place] [address], Ph. 12/29/2020 Female Infertility Laura Sky MD: [address], [address], [place] [address], Ph. 11/01/2020 Fertility Problem EZEKIEL Conner: [address] [place] [address], [address], [place] [address], Ph. 11/01/2020 Fertility Problem Yamilex Juarez MD: [address] [place] [address] , [place] [address], [place] [address], Ph. 10/12/2020 Artificial Insemination Kirti Lang DANIEL: [address], [address], [place] [address], Ph. 10/11/2020 Female Infertility Kirti Lang DANIEL: [address], [address], [place] [address], Ph. 10/11/2020 Fertility Problem Yamilex Juarez MD: [address], [address] [address], Ph. 10/04/2020 Female Infertility Kitri Lang DANIEL: [address], [address], [place] [address], Ph. 10/04/2020 Fertility Problem Yamilex Juarez MD: [address], [address] [place] [address], Ph. 09/27/2020 Female Infertility Kirti Lang DANIEL: [address], [address], [place] [address], Ph. 09/27/2020 Fertility Problem Azul Holt MD: [address] Ghassan milianantonio, [address] [place] [address], Ph. 09/08/2020 Female Infertility Breanne Gutierrez [facility]: [address], [address] [address], Ph. 09/07/2020 [facility] [address], [address] [place] [address], Ph. 09/07/2020 Fertility Problem Yamilex Juarez MD: [address], [address] [place] [address], Ph. 08/29/2020 Female Infertility Breanne Gutierrez [facility]: [address], [address] [address], Ph. 08/29/2020 Fertility Problem Yamilex Juarez MD: [address], [address] [address], Ph. 08/10/2020 [facility] [address], [address] [address], Ph. 08/10/2020 Fertility Problem Azul Holt MD: [address], [address] [address], Ph. Social History Tobacco Smoking Status Never [...]
--- OUTSIDE RECORDS SUMMARY | 2022-02-01 07:48 | XMS_ITS | Encounter Summary ---
:1990 Author Organization [facility] Address [address] [place] [address] Care Team Providers Name Role Phone Brisa Smith PA-C Primary Care Provider Encounter Details Date Type Department Care Team Description 04/19/2011 Lab Visit [facility] Acute pharyngitis [address] [place] [address] Social History Tobacco Use Types Packs/Day Years Used Date Smoking Tobacco: Never Assessed Sex Assigned at Date Recorded Not on file documented as of this encounter Plan of Treatment Not on filedocumented as of this encounter Procedures Procedure Name Priority Date/Time Associated Diagnosis Comme nts COMPLETE BLOOD Routine 04/19/2011 10:33 Acute pharyngitis Resu lts for this COUNT-W/DIFF AM COIL WINDER STRAP procedure are i n the results section. DIFFERENTIAL Routine 04/19/2011 10:33 Results for this AM COIL WINDER STRAP procedure are i n the results section. VENIPUNCTURE (THALIA) Routine 04/19/2011 Results for this procedure are i n the results section. documented in this encounter Results Differential (04/19/2011 10:33 AM COIL WINDER STRAP) P athologist Signature Absolute 4.5 1.8 - [...] / Volume Laterality 04/19/2011 10:33 04/19/2011 AM COIL WINDER STRAP 10:33 AM COIL WINDER STRAP Narrative HP CONVERSION - 04/19/2011 10:36 AM COIL WINDER STRAP Performed at [facility], [address] [place] [address] Norberto Pandya MD LAB_1 Performing Organization Address [facility] Phon e Number HP CONVERSION (ABNORMAL) Hemogram/Plts/Diff (04/19/2011 10:33 AM COIL WINDER STRAP) [facility] gist Method Time Signature White Blood [...] / Volume Laterality 04/19/2011 10:33 04/19/2011 AM COIL WINDER STRAP 10:33 AM COIL WINDER STRAP Narrative HP CONVERSION - 04/19/2011 10:36 AM COIL WINDER STRAP Performed at [facility], [address] [place], [place] [id number] Norberto Pandya MD LAB_1 Performing Organization Address [facility] Phon e Number HP CONVERSION VENIPUNCTURE (THALIA) (04/19/2011) athologist Signature Venipuncture Done HP CONVERSION Specimen (Source) Anatomical Location Collection Method / Collectio n Time Received Time / Laterality Volume 04/19/2011 04/19/2011 Narrative HP CONVERSION - 04/19/2011 10:33 AM COIL WINDER STRAP Performed at [facility], [address] [place], [place] [address] Norberto Pandya MD LAB_1 Performing Organization Address [facility] Phon e Number HP CONVERSION documented in this encounter Visit Diagnoses Diagnosis Acute pharyngitis documented in this encounter Care Teams Zipper Trimmer Hand Relationship Specialty Start Date End Date Brisa Smith PA-C PCP - General 07/30/10 04/18/15 [address] [place] [address] documented as of this encounter
--- OUTSIDE RECORDS SUMMARY | 2022-02-01 07:48 | XMS_ITS | Encounter Summary ---
:1990 Author Organization [facility] Address [address] [place] [address] Care Team Providers Name Role Phone Brisa Smith PA-C Primary Care Provider Reason for Visit Reason Comments Patient Calling Back Encounter Details Date Type Department Care Team Description 09/15/2012 Telephone [facility] Jasmin Whitmore Patient Calling Back [address] [place] [address] Social History Tobacco Use [...] CDT Left message for patient to call [phone] and ask for nurse triage for lab [...] on filedocumented in this encounter Care Teams Ice Cream Scooper Relationship Specialty Start Date End Date Brisa Smith PA-C PCP - General 07/30/10 04/18/15 [address] [place] [address] documented as of this encounter
--- OUTSIDE RECORDS SUMMARY | 2022-02-01 07:48 | XMS_ITS | Encounter Summary ---
:1990 Author Organization [facility] Address [address], [place] [address] Care Team Providers Name Role Phone Brisa Smith PA-C Primary Care Provider Encounter Details Date Type Department Care Team Description 11/02/2009 PN Conversion Only [place] [address] [facility] [address] [place] [id number] [place] [address] Social History Tobacco Use Types Packs/Day Years [...] (11/02/2009 6:51 PM CDT) Analysis Performed At [facility] Time Signature Strep Group A SEE TEXT [...] on filedocumented in this encounter Care Teams Pca Relationship Specialty Start Date End Date Brisa Smith PA-C PCP - General 07/30/10 04/18/15 [address] [place] [address] documented as of this encounter
--- OUTSIDE RECORDS SUMMARY | 2022-02-01 07:48 | XMS_ITS | Encounter Summary ---
:1990 Author Organization [employer] [employer] Address [address] [place] [address] Care Team Providers Name Role Phone Found, No Pcp MD Primary Care Provider Unavailable Reason for Visit Reason Comments FOREIGN BODY, EYE Encounter Details Date Type Department Care Team Description 01/20/2020 Hospital Encounter [facility] Esquivel Abrasi on of right [facility] cornea, initial Care [address] [address] [place] [phone] Social History Tobacco Use Types Packs/Day Years [...] your doctor if you can take an nvmm-gdj-ctsgdip medicine. ? Do not take two or [...] can you learn more? 1. Go to [email or web address] or [employer]/Dr Lal [employer]. 2. Enter G403 in the search box. Current as of: April 13, 2019?Content Version: 12.4 ?? [employer]. Care instructions adapted under license by your healthcare professional. If you have questions abouta medical condition or this instruction, always ask your healthcare professional. [employer] disclaims any warranty or liability for your use of this information. documented in this encounter Medications at Time of Discharge Medication Sig Dispensed Refills Start Date End Date ofloxacin (OCUFLOX) 0.3 % Place 1 Drop into 10 mL 0 01/27/2020 eye drop solution right eye 4 times a day for 7 days. documented as of this encounter ED Notes Sully Mahcado PA-C - 01/20/2020 12:52 PM CDT Nurse [...] Not on file Occupational History ??? 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 Financial resource [...] file Gets together: Not on file Attends anabaptist service: Not on file Active member of [...] No Social History Narrative Recently graduated from [employer] in civil engineering. 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 She is currently dating. Adverse Drug Reactions: [...] your doctor if you can take an fzjq-vvr-xbqiygo medicine. ? Do not take two or [...] can you learn more? 1. Go to [email or web address].Think [email or web address]/healthlibrary or [employer] Analytics/Expedit.uslibrary. 2. Enter G403 in the search box. Current as of: April 13, 2019?Content Version: 12.4 ?? [id number] [employer]. Care instructions adapted under license by your healthcare professional. If you have questions about a medical condition or this instruction, always ask your healthcare professional. [employer] disclaims any warranty or liability for your [...] eye documented in this encounter Care Teams Bilingual Medical Assistant Relationship Specialty Start Date End Date Found, No Pcp, PCP - General 05/02/15 [address] [place] [address] documented as of this encounter
--- OUTSIDE RECORDS SUMMARY | 2022-02-01 07:48 | XMS_ITS | Encounter Summary ---
:1990 Author Organization [facility] Address [address], [place] [address] Care Team Providers Name Role Phone Brisa Smith PA-C Primary Care Provider Encounter Details Date Type Department Care Team Description 09/07/2007 PN Conversion Only HELENA CONVERSION Brisa Smith, [address] [place] [address] [place], [place] [address] (Wo rk) Social History [...] Complete Blood Count-W/Diff (09/07/2007 2:12 PM CDT) [facility] Method Time Signature White Blood Cell [...] - HP CONVERSION Hemoglobin Conc 36.5 gm/dL [place] RDW 12.6 11.0 - HP CONVERSION 15.0 [...] Brisa Smith PA-C LAB_1 Performing Organization Address City/[facility]/ZIP Code Phon e Number HP CONVERSION Cholesterol, [...] Specific 1.015 1.005 - 25 HP CONVERSION [place] Specimen (Source) Anatomical Collection Method Collection Time Re ceived Time Location / / Volume Laterality 09/07/2007 2:12 PM CDT Brisa Smith PA-C LAB_1 Performing Organization Address City/[facility] Phon e Number HP CONVERSION Urinalysis Microscopic (09/07/2007 2:12 PM CDT) [facility] Method Time Signature White Blood 0-2/HPF 0 - 3 HP CONVERSION Cells Urine Red Blood Cells Negative 0 - 2 HP CONVERSION Urine Epithelial Few Few /HPF HP CONVERSION Cells Crystals Amorph None HP CONVERSION Specimen (Source) Anatomical Collection Method Collection Time Re ceived Time Location / / Volume Laterality 09/07/2007 2:12 PM CDT Brisa Smith PA-C LAB_1 Performing Organization Address City/[facility] Phon e Number HP CONVERSION documented in this encounter Visit Diagnoses Not on filedocumented in this encounter Care Teams Facilities Manager Relationship Specialty Start Date End Date Brisa Smith PA-C PCP - General 07/30/10 04/18/15 [address] [place] [address] documented as of this encounter
--- OUTSIDE RECORDS SUMMARY | 2022-02-01 07:48 | XMS_ITS | Encounter Summary ---
:1990 Author Organization [employer] Address [address] [place] [address] Care Team Providers Name Role Phone Brisa Smith PA-C Primary Care Provider Encounter Details Date Type Department Care Team Description 11/02/2009 Office Visit [facility] [place] [id number] [place] [phone] Social History Tobacco Use Types Packs/Day Years [...] 0135 Note Time: 11/02/09 0001 Status: Signed Director Business Intelligence: Niraj Dawson MD (Physician) NAME: MINO POSADAS MR#: [id number] ACCT: [id number] VISIT: [id number] DICTATING CLINICIAN: Niraj Dawson MD CONFIRM #: [id number] LOC: 520 CLINIC PROGRESS NOTE DATE OF VISIT: 11/02/2009 SUBJECTIVE: : 1990. Patient is a 19-year-old here with chief complaint of sore throat, cough, ear pain. 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 DRL:[id number] C: 11/03/09 13:44 CONFIRM #: [id number] documented in this encounter Plan of Treatment Not on filedocumented as of this encounter Visit Diagnoses Not on filedocumented in this encounter Care Teams Trauma Nurse Relationship Specialty Start Date End Date Brisa Smith PA-C PCP - General 07/30/10 04/18/15 [address] [place] [address] documented as of this encounter
--- OUTSIDE RECORDS SUMMARY | 2022-02-01 07:48 | XMS_ITS | Encounter Summary ---
:1990 Author [facility] Address [address], [place] [address] Care Team Providers Name Role Phone Brisa Smith PA-C Primary Care Provider Encounter Details Date Type Department Care Team Description 08/27/2010 PN Conversion Only CONVERSION CONVERSION Lena Chiu, RESEARCH COMPLIANCE SPECIALIST, OCCUPATIONAL HEALTH NURSE SUPERVISOR [address] [place], [place] [address] (Wo rk) Social History Tobacco Use Types Packs/Day Years Used Date Smoking Tobacco: Never Assessed Sex Assigned at Date Recorded Not on file documented as of this encounter Plan of Treatment Not on filedocumented as of this encounter Visit Diagnoses Not on filedocumented in this encounter Care Teams Shear Operator Relationship Specialty Start Date End Date Brisa Smith PA-C PCP - General 07/30/10 04/18/15 [address] [place] [address] documented as of this encounter
--- OUTSIDE RECORDS SUMMARY | 2022-02-01 07:48 | XMS_ITS | Encounter Summary ---
:1990 Author Organization [employer] Address [address] [place] [address] Care Team Providers Name Role Phone Found, No Pcp Primary Care Provider Unavailable Reason for Visit Reason Comments Forms outside records-[place], [place] Encounter Details Date Type Department Care Team Description 03/19/2019 [facility] (ou ide Documentation Services-CORPORATE RESPONSIBILITY OFFICER Josephine Bingham MD records-[address], [address]) [place] [address] [phone] Social History Tobacco Use Types Packs/Day Years [...] fax, placed on provider desk for review. L PRESSER documented in this encounter Plan of Treatment Not on filedocumented as of this encounter Visit Diagnoses Not on filedocumented in this encounter Care Teams Special Equipment Technician Relationship Specialty Start Date End Date Found, No Pcp, PCP - General 05/02/15 [address] [place] [address] documented as of this encounter
--- OUTSIDE RECORDS SUMMARY | 2022-02-01 07:48 | XMS_ITS | Encounter Summary ---
:1990 Author Organization [facility] Address [address] [address] Care Team Providers Name Role Phone Lynette Smith PA-C Primary Care Provider Reason for Visit Reason Comments Other Encounter Details Date Type Department Care Team Description 09/23/2007 Telephone [facility] Lynette Smith PA-C Other [facility] [place] [address] [place] [address] [phone] (Wo rk) Social History Tobacco Use Types Packs/Day Years Used Date Smoking Tobacco: Never Assessed Sex Assigned at Date Recorded Not on file documented as of this encounter [facility], Message - 09/23/2007 10:58 AM CDT Phone Note filed by Inc[employer] at 08/15/102145 Author: [employer] Service: (none) Author Type: (none) Filed: 08/15/102145 Note Time: 09/23/071057 Status: Signed Nurse Orthopaedic: [employer] Lab/Radiology Results Caller Name/Relationship:mom Primary Electronic Warfare Officer:manuel What test result is needed?sickle cell When and where was test done?09/06 [facility] Who ordered the test?manuel Electromechanical Equipment Tester: Best call back number:[phone] Is it OK to leave a confidential [...] missed. Acknowledged by LYNETTE SMITH on 3:08pm L ENGINEER documented in this encounter Plan of Treatment Not on filedocumented as of this encounter Visit Diagnoses Not on filedocumented in this encounter Care Teams Extrusion Line Operator Relationship Specialty Start Date End Date Lynette Smith, PAMimaC PCP - General 07/30/10 04/18/15 [address] [place] [address] documented as of this encounter
--- OUTSIDE RECORDS SUMMARY | 2022-02-01 07:48 | XMS_ITS | Encounter Summary ---
:1990 Author Organization [facility] Address [address] [place] [address] Care Team Providers Name Role Phone Found, No Pcp MD Primary Care Provider Unavailable Reason for Visit Reason Comments IUD Removal Encounter Details Date Type Department Care Team Description 05/20/2019 [facility] Visit [facility], Encounter for removal Services-MANAGER OF CORPORATE COMMUNICATIONS Josephine Bingham MD of intrauterine [address] [place] [address] [address] (Primary Dx) [place] [address] [phone] Social History Tobacco Use Types Packs/Day Years Used Date Smoking Tobacco: Never Smokeless Tobacco: Never Alcohol Use Standard Drinks/Week Comments Yes 2.8 (1 standard drink = 0.6 oz pure alco hol) Sex Assigned at Date Recorded Not on file documented as of this encounter Last Filed Vital Signs Vital Sign Reading Time Taken Comments Blood Pressure 126/63 05/20/2019 4:12 PM LAY UPS ASSEMBLER Pulse 62 05/20/2019 4:12 PM LAY UPS ASSEMBLER Temperature - - Respiratory Rate - - Oxygen Saturation - - Inhaled Oxygen Concentration - - Weight 72.1 kg (159 lb) 05/20/2019 4:12 PM LAY UPS ASSEMBLER Height - - Body Mass Index 24.18 03/18/2019 3:47 PM LAY UPS ASSEMBLER documented in this encounter Progress Notes Josephine Prater MD - 05/20/2019 4:00 PM CST Subjective: [...] clinic with positive UPT. Josephine Prater MD UPS ASSEMBLER documented in this encounter Plan of Treatment Not on filedocumented as of this encounter Visit Diagnoses Diagnosis Encounter for removal of intrauterine co ntraceptive device - Primary documented in this encounter Care Teams Tipple Oiler Relationship Specialty Start Date End Date Found, No PcpMD PCP - General 05/02/15 [address] [place] [address] documented as of this encounter
--- OUTSIDE RECORDS SUMMARY | 2022-02-01 07:48 | XMS_ITS | Encounter Summary ---
:1990 Author [facility] Address [address] [address] Care Team Providers Name Role Phone Brisa Smith PA-C Primary Care Provider Encounter Details Date Type Department Care Team Description 11/16/2008 PN Conversion Only HELENA CONVERSION Brisa Smith, [address] [place] [address] [place], [place] [address] (Wo rk) Social History [...] - HP CONVERSION Hemoglobin Conc 36.5 gm/dL [place] RDW 11.8 11.0 - HP CONVERSION 15.0 [...] CONVERSION ALT (SGPT) (11/16/2008 1:37 PM CDT) [facility] gist Method Time Signature Alanine 14 4 - 55 HP CONVERSION Aminotransferase U/L Specimen (Source) Anatomical Collection Method Collection Time Re ceived Time Location / / Volume Laterality 11/16/2008 1:37 PM CDT Brisa Smith SEAMUSMimaDonnell LAB_1 Performing Organization Address [facility] Phon e Number HP CONVERSION Amylase (11/16/2008 1:37 PM CDT) athologist Signature Amylase Serum 53 25 - 115 HP CONVERSION U/L Specimen (Source) Anatomical Collection Method Collection Time Re ceived Time Location / / Volume Laterality 11/16/2008 1:37 PM CDT Brisa Smith SEAMUSMimaDonnell LAB_1 Performing Organization Address [facility] Phon e Number HP CONVERSION AST (11/16/2008 1:37 PM CDT) [facility] gist Method Time Signature Aspartate 19 0 - 45 HP CONVERSION Aminotransferase U/L Specimen (Source) Anatomical Collection Method Collection Time Re ceived Time Location / / Volume Laterality 11/16/2008 1:37 PM CDT Brisa Smith SEAMUSMimaDonnell LAB_1 Performing Organization Address [facility] Phon e Number HP CONVERSION Bilirubin, Direct (11/16/2008 1:37 PM CDT) athologist Signature Bilirubin, 0.1 0.0 - 0.4 HP CONVERSION Direct mg/dL Specimen (Source) Anatomical Collection Method Collection Time Re ceived Time Location / / Volume Laterality 11/16/2008 1:37 PM CDT Brisa Smith SEAMUSMimaDonnell LAB_1 Performing Organization Address [facility] Phon e Number HP CONVERSION Bilirubin, Total (11/16/2008 1:37 PM CDT) athologist Signature Bilirubin Total 0.3 0.2 - 1.2 HP CONVERSION mg/dL Specimen (Source) Anatomical Collection Method Collection Time Re ceived Time Location / / Volume Laterality 11/16/2008 1:37 PM CDT Brisa Smith LUIS LAB_1 Performing Organization Address City/[facility]/ZIP Code Phon e Number HP CONVERSION Lipase (11/16/2008 1:37 PM CDT) P athologist Signature Lipase 55 5 - 70 U/L HP CONVERSION Specimen (Source) Anatomical Collection Method Collection Time Re ceived Time Location / / Volume Laterality 11/16/2008 1:37 PM CDT Brisa Smith PA-C LAB_1 Performing Organization Address [facility] Phon e Number HP CONVERSION documented in this encounter Visit Diagnoses Not on filedocumented in this encounter Care Teams Fly Raiser Lockstitch Relationship Specialty Start Date End Date Brisa Smith PA-C PCP - General 07/30/10 04/18/15 [address] [place] [address] documented as of this encounter
--- OUTSIDE RECORDS SUMMARY | 2022-02-01 07:48 | XMS_ITS | Encounter Summary ---
:1990 Author Organization [facility] Address [address] [place] [address] Care Team Providers Name Role Phone Found, No Pcp MD Primary Care Provider Unavailable Reason for Visit Reason Comments Annual Exam Encounter Details Date Type Department Care Team Description 03/18/2019 Office Visit [facility] (Primary Dx); Services-COMPUTER NUMERICAL CONTROL GRINDER Josephine Bingham MD Screening for cervical cancer; [address] [place] [address] for influenza vaccination; [address] Vaginal itching; [facility] [place] Encounter for preconception consultation [phone] Social History Tobacco Use Types Packs/Day Years Used Date Smoking Tobacco: Never Smokeless Tobacco: Never Alcohol Use Standard Drinks/Week Comments Yes 2.8 (1 standard drink = 0.6 oz pure alco hol) Sex Assigned at Date Recorded Not on file documented as of this encounter Last Filed Vital Signs Vital Sign Reading Time Taken Comments Blood Pressure 117/62 03/18/2019 3:47 PM LAST REPAIRER Pulse 74 03/18/2019 3:47 PM LAST REPAIRER Temperature - - Respiratory Rate - - Oxygen Saturation - - Inhaled Oxygen Concentration - - Weight 71.5 kg (157 lb 9.6 oz) 03/18/2019 3:47 PM LAST REPAIRER Height 172.7 cm (5' 8) 03/18/2019 3:47 PM LAST REPAIRER Body Mass Index 23.96 03/18/2019 3:47 PM LAST REPAIRER documented in this encounter Patient Instructions Patient [...] is more common in people of Ashkenazi Congregation, Cook Islander-F[place], or Cajun backgrounds. ?? Diseases that occur more often in people of Ashkenazi Congregation background. These include: ? Alexey-Sachs disease. ? Manpreet disease. ? Familial dysautonomia. ? Cystic fibrosis. ? Fanconi anemia group C. ? Geoffrey-Pick disease type A. ? Mucolipidosis IV. ? Deutsch syndrome. ? Gaucher's disease. Should you be tested? Certain genetic conditions are more common in certain ethnic groups. People who are or of , Ashkenazi Congregation, Southeast , Cook Islander-[place], or Mediterranean background may want to think about genetic testing to find out if they have or are a carrier of a genetic condition that they could pass on to their child. Certain genetic conditions are more common in these ethnic groups. Some close-knit yazidism communities also have higher rates of certain [...] can you learn more? 1. Go to [email or web address] Technologiesrary or [email or web address]. 2. Enter Q084 in the search box. Current as of: July 27, 2018 Content Version: 12.2 ?? [id number] [employer]. Care instructions adapted under license by your healthcare professional. If you have questions about a medical condition or this instruction, always ask your healthcare professional. [employer] disclaims any warranty or liability for your use of this information. Learning About Planning for Future How can you plan for ? Even before you get , you can help make your as healthy as possible. Take these steps: ?? See a doctor or certified nurse-accounting tutor for an exam. Talk about the medicines, [...] And it can help your doctor or accounting tutor figure out when your baby isdue and how it is growing. ?? Make healthy choices. Eat well. Avoid caffeine. Or cut back and only have 1 cup of coffee or tea a day. Avoid alcohol, cigarettes, and illegal drugs. Take only the medicines your doctor or accounting tutor says are okay. ?? Get plenty of [...] an appointment with your doctor or certified nurse-accounting tutor. Your first visit will provide information that can be used to check for any problems asyour progresses. Where can you learn more? 1. Go to [email or web address]rary or [email or web address]. 2. Enter R938 in the search box. Current as of: September 23, 2018 Content Version: 12.2 ?? 2201-0560 [employer]. Care instructions adapted under license by your healthcare professional. If you have questions about a medical condition or this instruction, always ask your healthcare professional. [employer] disclaims any warranty or liability for your use of this information. REPAIRER documented in this encounter Progress Notes Josephine [...] that they are planning a trip to [place] in May and would like to potentially conceive during the trip. She is wondering about the timing of when she should take it out given this. Extracorporeal Circulation Specialist History: Menses: Rare and irregular with Mirena in place. Prior to IUD they were heavy. Contraception: Mirena IUD Pap: Last Pap NIL in 08/2017 in [place]. Records not available Sexual activity: Active with [...] ok with -Reviewed plans for travel to [place] and discuss this in the context of [...] were spent in discussion of preconception counseling REPAIRER documented in this encounter Plan of Treatment Not on filedocumented as of this encounter Procedures Procedure Name Priority Date/Time Associated Diagnosis Comme nts VAGINITIS PANEL Routine 03/18/2019 4:45 PM Vaginal itching Res ults for this LAST REPAIRER procedure are i n the results section. documented in this encounter Results Vaginitis Panel, DNA Probe (03/18/2019 4:45 PM LAST REPAIRER) [facility] gist Method Time Signature Gardnerella Negative Negative 03/19/2019 [place] vaginalis 4:43 PM LAST REPAIRER LABORATORY China species Negative Negative 03/19/2019 [place] 4:43 PM LAST REPAIRER LABORATORY Trichomonas Negative Negative 03/19/2019 [place] vaginalis 4:43 PM LAST REPAIRER LABORATORY Specimen Anatomical Collection Method Collection Time Receive d Time (Source) Location / / Volume Laterality Swab (Source SPECIMEN FROM Non-blood 03/18/2019 4:45 PM 03/18/20 19 4:46 Required) VAGINA / Unknown Collection / LAST REPAIRER PM LAST REPAIRER Unknown Josephine Prater MD LAB_1 Performing Organization Address City/State/ZIP Code Phon e Number [facility] [address] [place] [address] documented in this encounter Visit Diagnoses Diagnosis Preventative health care - Primary Routine general medical examination at a health care facility Screening for cervical cancer Screening for malignant neoplasm of the cervix Need for influenza vaccination Need for prophylactic vaccination and in oculation against influenza Vaginal itching Pruritus of genital organs Encounter for preconception consultation documented in this encounter Care Teams Web Services Professional Relationship Specialty Start Date End Date Found, No PcpMD PCP - General 05/02/15 [address] ?.??[place] [address] documented as of this encounter
--- OUTSIDE RECORDS SUMMARY | 2022-02-01 07:49 | XMS_ITS | Encounter Summary ---
:1990 Author Organization [facility] Address [address] [address] Care Team Providers Name Role Phone Brisa mSith PA-C Primary Care Provider Encounter Details Date Type Department Care Team Description 06/25/2005 PN Conversion Only HELENA CONVERSION Lena Chiu, JBOSS DEVELOPER, [address] [place] [address] [address] [phone] (Wo rk) Social History Tobacco Use Types Packs/Day Years Used Date Smoking Tobacco: Never Assessed Sex Assigned at Date Recorded Not on file documented as of this encounter Plan of Treatment Not on filedocumented as of this encounter Procedures Procedure Name Priority Date/Time Associated Comments Diagnosis LYME DISEASE SCREEN Routine 06/25/2005 9:05 Resul ts for this (IN-HOUSE) AM PREDICTIVE MAINTENANCE TECHNICIAN procedure are i n the results section. PARVOVIRUS B19 IGG & IGM Routine 06/25/2005 9:05 Results for this ANTIBODIES AM PREDICTIVE MAINTENANCE TECHNICIAN procedure are i n the results section. CYTOMEGALOVIRUS IGM Routine 06/25/2005 9:05 Resul ts for this ANTIBODY AM PREDICTIVE MAINTENANCE TECHNICIAN procedure are i n the results section. CYTOMEGALOVIRUS IGG Routine 06/25/2005 9:05 Resul ts for this ANTIBODY AM PREDICTIVE MAINTENANCE TECHNICIAN procedure are i n the results section. HEMOGLOBIN, BLOOD Routine 06/25/2005 9:05 Results for this AM PREDICTIVE MAINTENANCE TECHNICIAN procedure are i n the results section. WBC, BLOOD Routine 06/25/2005 9:05 Results for this AM PREDICTIVE MAINTENANCE TECHNICIAN procedure are i n the results section. RHEUMATOID FACTOR, QUANT Routine 06/25/2005 9:05 Results for this AM PREDICTIVE MAINTENANCE TECHNICIAN procedure are i n the results section. FERRITIN Routine 06/25/2005 9:05 Results for this AM PREDICTIVE MAINTENANCE TECHNICIAN procedure are i n the results section. IRISH SCREEN Routine 06/25/2005 9:05 Results for this AM PREDICTIVE MAINTENANCE TECHNICIAN procedure are i n the results section. ESR Routine 06/25/2005 9:05 Results for this AM PREDICTIVE MAINTENANCE TECHNICIAN procedure are i n the results section. documented in this encounter Results Hemoglobin, Blood (06/25/2005 9:05 AM PREDICTIVE MAINTENANCE TECHNICIAN) athologist Signature Hemoglobin 15.4 12.0 - 16.0 HP CONVERSION gm/dL Specimen (Source) Anatomical Collection Method Collection Time Re ceived Time Location / / Volume Laterality 06/25/2005 9:05 AM PREDICTIVE MAINTENANCE TECHNICIAN Lena Chiu APRN, CNP LAB_1 Performing Organization Address City/[facility]/ZIP Code Phon e Number HP CONVERSION WBC, Blood (06/25/2005 9:05 AM PREDICTIVE MAINTENANCE TECHNICIAN) athologist Signature White Blood 4.8 4.5 - 13.0 HP CONVERSION Cell Count K/cmm Specimen (Source) Anatomical Collection Method Collection Time Re ceived Time Location / / Volume Laterality 06/25/2005 9:05 AM PREDICTIVE MAINTENANCE TECHNICIAN Lena Chiu APRN, CNP LAB_1 Performing Organization Address City/[facility] Phon e Number HP CONVERSION ESR (06/25/2005 9:05 AM PREDICTIVE MAINTENANCE TECHNICIAN) Patholo gist Method Time Signature Sedimentation Rate 1 0 - 20 HP CONVERSI ON mm/Hr Specimen (Source) Anatomical Collection Method Collection Time Re ceived Time Location / / Volume Laterality 06/25/2005 9:05 AM PREDICTIVE MAINTENANCE TECHNICIAN Lena Chiu APRN, CNP LAB_1 Performing Organization Address City/[facility]/ZIP Code Phon e Number HP CONVERSION IRISH Screen (06/25/2005 9:05 AM PREDICTIVE MAINTENANCE TECHNICIAN) Analysis Performed At Patho logist Time Signature Anti-Nuclear Negative Negative HP CONVERSION Ab Specimen (Source) Anatomical Collection Method Collection Time Re ceived Time Location / / Volume Laterality 06/25/2005 9:05 AM PREDICTIVE MAINTENANCE TECHNICIAN Lena Chiu APRN, CNP LAB_1 Performing Organization Address City/[facility]/ZIP [facility] Phon e Number HP CONVERSION Rheumatoid Factor, Quant (06/25/2005 9:05 AM PREDICTIVE MAINTENANCE TECHNICIAN) [facility] Method Time Signature Rheumatoid Negative 0 - 20 HP CONVERSION Factor IU/mL Specimen (Source) Anatomical Collection Method Collection Time Re ceived Time Location / / Volume Laterality 06/25/2005 9:05 AM PREDICTIVE MAINTENANCE TECHNICIAN Lena Chiu APRN, ROSA LAB_1 Performing Organization Address [facility]/ZIP Code Phon e Number HP CONVERSION Ferritin (06/25/2005 9:05 AM PREDICTIVE MAINTENANCE TECHNICIAN) athologist Signature Ferritin Serum 17 10 - 291 HP CONVERSION ng/mL Specimen (Source) Anatomical Collection Method Collection Time Re ceived Time Location / / Volume Laterality 06/25/2005 9:05 AM PREDICTIVE MAINTENANCE TECHNICIAN Lena Chiu APRN, CNP LAB_1 Performing Organization Address [facility]/ZIP Code Phon e Number HP CONVERSION Parvovirus B19 Igg & Igm Antibodies (06/25/2005 9:05 AM PREDICTIVE MAINTENANCE TECHNICIAN) athologist Signature Parvovirus B19 0.16 HP CONVERSION [...] / / Volume Laterality 06/25/2005 9:05 AM PREDICTIVE MAINTENANCE TECHNICIAN Lena Chiu APRN, CNP LAB_1 Performing Organization Address [facility] Phon e Number HP CONVERSION Cytomegalovirus IgG Antibody (06/25/2005 9:05 AM PREDICTIVE MAINTENANCE TECHNICIAN) [employer] Method Time Signature Cytomegalovirus IgG 39 AU [...] / / Volume Laterality 06/25/2005 9:05 AM PREDICTIVE MAINTENANCE TECHNICIAN Lena Chiu APRN, CNP LAB_1 Performing Organization Address [facility] e Number HP CONVERSION Cytomegalovirus IgM Antibody (06/25/2005 9:05 AM PREDICTIVE MAINTENANCE TECHNICIAN) [employer] Method Time Signature Cytomegalovirus IgM 0.07 AU [...] / / Volume Laterality 06/25/2005 9:05 AM PREDICTIVE MAINTENANCE TECHNICIAN Lena Chiu APRN, CNP LAB_1 Performing Organization Address [facility] Phon e Number HP CONVERSION Lyme Disease Screen (IN-House) (06/25/2005 9:05 AM PREDICTIVE MAINTENANCE TECHNICIAN) athologist Signature Lyme Screen Negative No normal HP CONVERSION range Comment: A negative Lyme result does not rule out Lyme disease. ??If a current infection is suspected, please submit a second specimen in 4-6 weeks. Positive or equivocal specimens are auto matically sent to [facility] for Western Blot testing. Specimen (Source) Anatomical Collection Method Collection Time Re ceived Time Location / / Volume Laterality 06/25/2005 9:05 AM PREDICTIVE MAINTENANCE TECHNICIAN Lena Chiu APRN, CNP LAB_1 Performing Organization Address City/[facility] Phon e Number HP CONVERSION documented in this encounter Visit Diagnoses Not on filedocumented in this encounter Care Teams Swatch Checker Relationship Specialty Start Date End Date Brisa Smith PA-C PCP - General 07/30/10 04/18/15 [address] [place] [address] documented as of this encounter
--- OUTSIDE RECORDS SUMMARY | 2022-02-01 07:49 | XMS_ITS | Encounter Summary ---
:1990 Author Organization [facility] Address [address] [place] [address] Care Team Providers Name Role Phone Brisa Smith PA-C Primary Care Provider Encounter Details Date Type Department Care Team Description 06/28/2005 Office Visit [facility] Gabo Weiner MD Subspecialty [address] [place] [address] [place], [place] [phone] Social History Tobacco Use Types Packs/Day Years Used Date Smoking Tobacco: Never Assessed Sex Assigned at Date Recorded Not on file documented as of this encounter Last Filed Vital Signs Vital Sign Reading Time Taken Comments Blood Pressure 110/72 06/28/2005 2:55 PM MASTICATOR Pulse 65 06/28/2005 2:55 PM MASTICATOR Temperature - - Respiratory Rate - - Oxygen Saturation - - Inhaled Oxygen Concentration - - Weight 66.7 kg (146 lb 15.7 oz) 06/28/2005 2:55 PM C: 6 6.7kg MASTICATOR Height 172.7 cm (5' 8) 06/28/2005 2:55 PM C: 172.7cm MASTICATOR Body Mass Index 22.35 06/28/2005 2:55 PM MASTICATOR Body Mass Index Percentile 71.67 % 06/28/2005 2:55 PM MASTICATOR Growth Chart: [facility] (Girls, 2-20 Years) documented in this encounter Progress Notes Jarrett Weiner MD - 06/28/2005 12:01 AM CST Progress Notes signed by Jarrett Weiner MD at 07/05/05 0954 Author: Jarrett Weiner MD Service: (none) Author Type: Physician Filed: 08/17/10 1150 Note Time: 06/28/052014 Status: Signed Salvage Mend Worker: Jarrett Weiner MD (Physician) NAME: MINO POSADAS MR: [id number] ACCT: [id number] VISIT: [id number] DICTATING CLINICIAN: JARRETT WEINER MD JOB: [id number] CLINIC PROGRESS NOTE DATE OF VISIT: 06/28/2005 [...] X-rays were done at that time at [facility]. She was not hospitalized. Recent volleyball tournament that made her totally exhausted. She has missed three plus weeks of school this year. She has three younger siblings. Born and raised in [place]. No travel history. No pets. CURRENT MEDICATIONS: [...] Coronal CT of her sinuses, chest x-ray, FINANCIAL CONSULTANT examination, CT of her abdomen, urinalysis. TT: [address]: 35 minutes. I counseled Mino and her mother concerning the nature of her symptoms, our approach to this issue, the importance of staying in school regardless of symptoms, work-up and followup. CC: LENA CHIU NP SCM:[id number] C: 07/02/05 12:22 DOCUMENT: [id number] ICATOR documented in this encounter Plan of Treatment Not on filedocumented as of this encounter Visit Diagnoses Not on filedocumented in this encounter Care Teams Carpenter Streetcar Relationship Specialty Start Date End Date Brisa Smith PA-C PCP - General 07/30/10 04/18/15 [address] [place] [address] documented as of this encounter
--- OUTSIDE RECORDS SUMMARY | 2022-02-01 07:49 | XMS_ITS | Encounter Summary ---
:1990 Author Organization [facility] Address [address], [place] [address] Care Team Providers Name Role Phone Brisa Smith PA-C Primary Care Provider Encounter Details Date Type Department Care Team Description 05/22/2005 Office Visit [facility] Ellen Solis, [address] [facility] [place], [place] [id number] [facility] [phone] [place], [place] [address] Social History Tobacco Use Types Packs/Day Years Used Date Smoking Tobacco: Never Assessed Sex Assigned at Date Recorded Not on file documented as of this encounter Last Filed Vital Signs Vital Sign Reading Time Taken Comments Blood Pressure 127/66 05/22/2005 4:39 PM CAMPGROUND CLEANING ATTENDANT Pulse 73 05/22/2005 4:39 PM CAMPGROUND CLEANING ATTENDANT Temperature 36.7 ??C (98.1 ??F) 05/22/2005 4:39 PM CAMPGROUND CLEANING ATTENDANT C: 36 .7 C Respiratory Rate 16 05/22/2005 4:39 PM CAMPGROUND CLEANING ATTENDANT Oxygen Saturation 98% 05/22/2005 4:39 PM CAMPGROUND CLEANING ATTENDANT Inhaled Oxygen Concentration - - Weight - - Height - - Body Mass Index - - documented in this encounter Progress Notes Ellen Solis PA-C - 05/22/2005 12:01 AM CST Progress Notes signed by Ellen Solis PA-C at 05/28/05 0554 Author: Ellen Solis PA-C Service: (none) Author Type: Resource Filed: 08/17/10 1102 Note Time: 05/22/05 0001 Status: Signed Straight Line Edger: Ellen Solis PA-C (Resource) NAME: MINO POSADAS MR: [id number] ACCT: [id number] VISIT: [id number] DICTATING CLINICIAN: ELLEN SOLIS PA-C JOB: [id number] CLINIC PROGRESS NOTE DATE OF VISIT: 05/22/2005 SUBJECTIVE: [id number] female complaining of a cough for the [...] PLAN: Symptomatic care. Follow up as needed. LAG:[id number] C: 05/23/05 12:45 DOCUMENT: [id number] GROUND CLEANING ATTENDANT documented in this encounter Plan of Treatment Not on filedocumented as of this encounter Visit Diagnoses Not on filedocumented in this encounter Care Teams Collection Teller Relationship Specialty Start Date End Date Brisa Smith PA-C PCP - General 07/30/10 04/18/15 [address] [place] [address] documented as of this encounter
--- OUTSIDE RECORDS SUMMARY | 2022-02-01 07:49 | XMS_ITS | Encounter Summary ---
:1990 Author Organization [facility] Address [address] [address] Care Team Providers Name Role Phone Brisa Smith PA-C Primary Care Provider Reason for Visit Reason Comments Other Encounter Details Date Type Department Care Team Description 03/12/2005 Telephone [facility] Kirti Kent Other [address] [place] [address] Social History Tobacco Use Types Packs/Day Years Used Date Smoking Tobacco: Never Assessed Sex Assigned at Date Recorded Not on file documented as of this encounter Progress Notes Kirti Kent - 03/12/2005 5:53 PM CST Phone Note filed by Kirti Kent RN at 08/13/102221 Author: Kirti Kent RN Service: (none) Author Type: Registered Nurse Filed: 08/13/102221 Note Time: 03/12/051752 Status: Signed Juice Packaging Machines Setter: Kirti Kent, RN (Registered Nurse) Mom calling for immunizations needed tonight when they go to a meeting about vollyball. Gave mom the immunizations that were in the computer. All that she needed weren't there. Created on 12Mar2005 5:53pm by KIRTI KENT HOBBER documented in this encounter Plan of Treatment Not on filedocumented as of this encounter Visit Diagnoses Not on filedocumented in this encounter Care Teams Seat Pack Inspector Relationship Specialty Start Date End Date Brisa Smith PA-C PCP - General 07/30/10 04/18/15 [address] [place] [address] documented as of this encounter
--- OUTSIDE RECORDS SUMMARY | 2022-02-01 07:49 | XMS_ITS | Encounter Summary ---
:1990 Author Organization [facility] Address [address] [place] [address] Care Team Providers Name Role Phone Brisa Smith PA-C Primary Care Provider Encounter Details Date Type Department Care Team Description 07/05/2005 PN Conversion Only [place] [facility] Jarrett Weiner, [address] [place] [address] [address] [place] [address] (Wo rk) Social History Tobacco Use Types Packs/Day Years Used Date Smoking Tobacco: Never Assessed Sex Assigned at Date Recorded Not on file documented as of this encounter Plan of Treatment Not on filedocumented as of this encounter Procedures Procedure Name Priority Date/Time Associated Comments Diagnosis LAB IGM Routine 07/05/2005 3:14 PM Results f or this SECRETARIAL TEACHER procedure are i n the results section. CARDIOLIPIN Routine 07/05/2005 3:14 PM Results f or this ANTIBODIES, IGG AND SECRETARIAL TEACHER procedur e are in IGM the results section. THYROID STIMULATING Routine 07/05/2005 3:14 PM Re sults for this HORMONE SECRETARIAL TEACHER procedure are i n the results section. CREATININE / GFR Routine 07/05/2005 3:14 PM Resul ts for this SECRETARIAL TEACHER procedure are i n the results section. IGE, MILK (F2) Routine 07/05/2005 3:14 PM Results for this SECRETARIAL TEACHER procedure are i n the results section. COMPLETE BLOOD Routine 07/05/2005 3:14 PM Results for this COUNT-W/DIFF SECRETARIAL TEACHER procedure are i n the results section. BILIRUBIN, TOTAL & Routine 07/05/2005 3:14 PM Res ults for this DIRECT SECRETARIAL TEACHER procedure are i n the results section. FREE T4 Routine 07/05/2005 3:14 PM Results f or this SECRETARIAL TEACHER procedure are i n the results section. IGG, SERUM Routine 07/05/2005 3:14 PM Results f or this SECRETARIAL TEACHER procedure are i n the results section. IGE TOTAL Routine 07/05/2005 3:14 PM Results f or this SECRETARIAL TEACHER procedure are i n the results section. IGA, SERUM Routine 07/05/2005 3:14 PM Results f or this SECRETARIAL TEACHER procedure are i n the results section. C-REACTIVE PROTEIN Routine 07/05/2005 3:14 PM Res ults for this SECRETARIAL TEACHER procedure are i n the results section. AST Routine 07/05/2005 3:14 PM Results f or this SECRETARIAL TEACHER procedure are i n the results section. LD TOTAL (LDH) Routine 07/05/2005 3:14 PM Results for this SECRETARIAL TEACHER procedure are i n the results section. BUN Routine 07/05/2005 3:14 PM Results f or this SECRETARIAL TEACHER procedure are i n the results section. documented in this encounter Results Complete Blood Count-W/Diff (07/05/2005 3:14 PM SECRETARIAL TEACHER) [facility] gist Method Time Signature White Blood [...] - HP CONVERSION Hemoglobin Conc 36.5 gm/dL [place] RDW 12.2 11.0 - HP CONVERSION 15.0 [...] / / Volume Laterality 07/05/2005 3:14 PM SECRETARIAL TEACHER Jarrett Weiner MD LAB_1 Performing Organization Address City/State/ZIP Code Phon e Number HP CONVERSION AST (07/05/2005 3:14 PM SECRETARIAL TEACHER) [facility] Method Time Signature Aspartate 20 0 - 45 HP CONVERSION Aminotransferase U/L Specimen (Source) Anatomical Collection Method Collection Time Re ceived Time Location / / Volume Laterality 07/05/2005 3:14 PM SECRETARIAL TEACHER Jarrett Weiner MD LAB_1 Performing Organization Address City/State/ZIP Code Phon e Number HP CONVERSION Bilirubin, Total & Direct (07/05/2005 3:14 PM SECRETARIAL TEACHER) athologist Signature Bilirubin Total 0.2 0.2 - 1.2 HP CONVERSION mg/dL Bilirubin, 0.1 0.0 - 0.4 HP CONVERSION Direct mg/dL Specimen (Source) Anatomical Collection Method Collection Time Re ceived Time Location / / Volume Laterality 07/05/2005 3:14 PM SECRETARIAL TEACHER Jarrett Weiner MD LAB_1 Performing Organization Address City/[facility]/ZIP Code Phon e Number HP CONVERSION BUN (07/05/2005 3:14 PM SECRETARIAL TEACHER) athologist Signature Blood Urea 13 5 - 26 HP CONVERSION Nitrogen mg/dL Specimen (Source) Anatomical Collection Method Collection Time Re ceived Time Location / / Volume Laterality 07/05/2005 3:14 PM SECRETARIAL TEACHER Jarrett Weiner MD LAB_1 Performing Organization Address City/[facility]/ZIP Code Phon e Number HP CONVERSION Creatinine / GFR (07/05/2005 3:14 PM SECRETARIAL TEACHER) athologist Signature Creatinine 0.8 0.5 - 1.5 HP CONVERSION Serum mg/dL Specimen (Source) Anatomical Collection Method Collection Time Re ceived Time Location / / Volume Laterality 07/05/2005 3:14 PM SECRETARIAL TEACHER Jarrett Weiner MD LAB_1 Performing Organization Address City/State/ZIP Code Phon e Number HP CONVERSION LD Total (LDH) (07/05/2005 3:14 PM SECRETARIAL TEACHER) [facility] gist Method Time Signature Lactic Acid 169 90 - 180 HP CONVERSION Dehydrogenase U/L Specimen (Source) Anatomical Collection Method Collection Time Re ceived Time Location / / Volume Laterality 07/05/2005 3:14 PM SECRETARIAL TEACHER Jarrett Weiner MD LAB_1 Performing Organization Address City/State/ZIP Code Phon e Number HP CONVERSION C-Reactive Protein (07/05/2005 3:14 PM SECRETARIAL TEACHER) athologist Signature CRP <0.2 0.0 - 0.9 HP CONVERSION mg/dL Specimen (Source) Anatomical Collection Method Collection Time Re ceived Time Location / / Volume Laterality 07/05/2005 3:14 PM SECRETARIAL TEACHER Jarrett Weiner MD LAB_1 Performing Organization Address City/State/ZIP Code Phon e Number HP CONVERSION IgA, Serum (07/05/2005 3:14 PM SECRETARIAL TEACHER) Analysis Performed At [facility] Signature Immunoglobulin A 109 51 - 190 HP CONVERSION mg/dL Specimen (Source) Anatomical Collection Method Collection Time Re ceived Time Location / / Volume Laterality 07/05/2005 3:14 PM SECRETARIAL TEACHER Jarrett Weiner MD LAB_1 Performing Organization Address City/[facility] Code Phon e Number HP CONVERSION Igg, Serum (07/05/2005 3:14 PM SECRETARIAL TEACHER) Analysis Performed At [facility] Signature Immunoglobulin G 1,360 669 - HP CONVERSION 1,529 mg/dL Specimen (Source) Anatomical Collection Method Collection Time Re ceived Time Location / / Volume Laterality 07/05/2005 3:14 PM SECRETARIAL TEACHER Jarrett Weiner MD LAB_1 Performing Organization Address City/[facility] Code Phon e Number HP CONVERSION IgE Total (07/05/2005 3:14 PM SECRETARIAL TEACHER) Analysis Performed At [facility] Signature Immunoglobulin E 30 0 - 180 HP CONVERSION IU/mL Comment: Interpretive data: TEST INFORMATION: Immunoglobulin E To convert to ng/mL, multiply IU/mL by 2 .4. Specimen (Source) Anatomical Collection Method Collection Time Re ceived Time Location / / Volume Laterality 07/05/2005 3:14 PM SECRETARIAL TEACHER Jarrett Weiner MD LAB_1 Performing Organization Address City/State/ZIP Code Phon e Number HP CONVERSION IGM (07/05/2005 3:14 PM SECRETARIAL TEACHER) Analysis Performed At [facility] Signature Immunoglobulin M 46 37 - 314 HP CONVERSION mg/dL Specimen (Source) Anatomical Collection Method Collection Time Re ceived Time Location / / Volume Laterality 07/05/2005 3:14 PM SECRETARIAL TEACHER Jarrett Weiner MD LAB_1 Performing Organization Address City/State/ZIP Code Phon e Number HP CONVERSION Free T4 (07/05/2005 3:14 PM SECRETARIAL TEACHER) athologist Signature Thyroxine, Free 1.4 0.8 - 1.5 HP CONVERSION ng/dL Specimen (Source) Anatomical Collection Method Collection Time Re ceived Time Location / / Volume Laterality 07/05/2005 3:14 PM SECRETARIAL TEACHER Jarrett Weiner MD LAB_1 Performing Organization Address City/State/ZIP Code Phon e Number HP CONVERSION Thyroid Stimulating Hormone (07/05/2005 3:14 PM SECRETARIAL TEACHER) athologist Signature Thyroid 1.09 0.20 - HP CONVERSION Stimulating 4.50 Hormone uIU/mL Specimen (Source) Anatomical Collection Method Collection Time Re ceived Time Location / / Volume Laterality 07/05/2005 3:14 PM SECRETARIAL TEACHER Jarrett Weiner MD LAB_1 Performing Organization Address City/[facility]/ZIP Code Phon e Number HP CONVERSION Cardiolipin Antibodies (07/05/2005 3:14 PM SECRETARIAL TEACHER) [facility] gist Method Time Signature Anticardiolipin IgG [...] with antiphospholipid antibody syndrome (Br J Rheumatol 26:035-814 1718) have moderate or high l evels of [...] with antiphospholipid antibody syndrome (Br J Rheumatol 26:348-519 1697) have moderate or high l evels of cardiolipin antibodies and are positive for IgG only, or IgG and IgM. Specimen (Source) Anatomical Collection Method Collection Time Re ceived Time Location / / Volume Laterality 07/05/2005 3:14 PM SECRETARIAL TEACHER Jarrett Weiner MD LAB_1 Performing Organization Address City/[facility] Code Phon e Number HP CONVERSION IgE, Milk (F2) (07/05/2005 3:14 PM SECRETARIAL TEACHER) P athologist Signature Milk IgE <0.35 kU/L HP CONVERSION Comment: Class 0 (Negative <0.35) Specimen (Source) Anatomical Collection Method Collection Time Re ceived Time Location / / Volume Laterality 07/05/2005 3:14 PM SECRETARIAL TEACHER Jarrett Weiner MD LAB_1 Performing Organization Address City/[facility] Phon e Number HP CONVERSION documented in this encounter Visit Diagnoses Not on filedocumented in this encounter Care Teams Study Hall Supervisor Relationship Specialty Start Date End Date Brisa Smith PA-C PCP - General 07/30/10 04/18/15 [address] [place] [address] documented as of this encounter
--- OUTSIDE RECORDS SUMMARY | 2022-02-01 07:49 | XMS_ITS | Encounter Summary ---
:1989 Author Organization [facility] Address [address], [place] [address] Care Team Providers Name Role Phone Brisa Smith PA-C Primary Care Provider Encounter Details Date Type Department Care Team Description 05/22/2005 PN Conversion Only [place] CONVER[facility] N Ellen Vieira [address] [employer] [place] [address] [facility] [address] [place], [place] [address] Social History Tobacco Use Types Packs/Day Years Used Date Smoking Tobacco: Never Assessed Sex Assigned at Date Recorded Not on file documented as of this encounter Plan of Treatment Not on filedocumented as of this encounter Procedures Procedure Name Priority Date/Time Associated Diagnosis Comme nts STREP GROUP A Routine 05/22/2005 6:16 PM Results for this ANTIGEN TEST ORNAMENTAL RAIL INSTALLER procedure are i n the results section. BETA STREP FOLLOWUP Routine 05/22/2005 6:16 PM Re sults for this ORNAMENTAL RAIL INSTALLER procedure are i n the results section. documented in this encounter Results Strep Group A Antigen Test (05/22/2005 6:16 PM ORNAMENTAL RAIL INSTALLER) Analysis Performed At Patho logist Time Signature Strep Group A Negative Negative HP CONVERSION Antigen Test Comment: Culture to follow. Specimen (Source) Anatomical Collection Method Collection Time Re ceived Time Location / / Volume Laterality 05/22/2005 6:16 PM ORNAMENTAL RAIL INSTALLER Ellen Vieira PA-C LAB_1 Performing Organization Address City/State/ZIP Code Phon e Number HP CONVERSION Beta Strep Followup (05/22/2005 6:16 PM ORNAMENTAL RAIL INSTALLER) P athologist Signature Strep Screen SEE TEXT HP CONVERSION Comment: Patient: MINO POSADAS Rapid Strep Follow up Culture @ ? Collected: ?181 Source: Throat ?Processed: ?[id number] ? 1V Final Report ------ ?1327 No beta hemolytic Strep group A isolated . @ = Rapid F/U Cult Performed at ??[address] [place], [place] ?[address] Specimen (Source) Anatomical Collection Method Collection Time Re ceived Time Location / / Volume Laterality 05/22/2005 6:16 PM ORNAMENTAL RAIL INSTALLER Ellen Vieira PA-C LAB_1 Performing Organization Address City/State/ZIP Code Phon e Number HP CONVERSION documented in this encounter Visit Diagnoses Not on filedocumented in this encounter Care Teams Ios Architect Relationship Specialty Start Date End Date Brisa Smith PA-C PCP - General 07/30/10 04/18/15 [address] [place], [place] [address] documented as of this encounter
--- OUTSIDE RECORDS SUMMARY | 2022-02-01 07:49 | XMS_ITS | Encounter Summary ---
:1990 Author Organization [facility] Address [address] [place] [address] Care Team Providers Name Role Phone Brisa Smith PA-C Primary Care Provider Encounter Details Date Type Department Care Team Description 07/26/2005 Office Visit [facility] Gabo Weiner MD Subspecialty [address] [place], [place] [address] [place] [address] [phone] Social History Tobacco Use Types Packs/Day Years Used Date Smoking Tobacco: Never Assessed Sex Assigned at Date Recorded Not on file documented as of this encounter Last Filed Vital Signs Vital Sign Reading Time Taken Comments Blood Pressure 104/60 07/26/2005 3:27 PM COSTUMED CHARACTER Pulse 59 07/26/2005 3:27 PM COSTUMED CHARACTER Temperature - - Respiratory Rate - - Oxygen Saturation - - Inhaled Oxygen Concentration - - Weight 66 kg (145 lb 7.7 oz) 07/26/2005 3:27 PM COSTUMED CHARACTER C: 66.0kg Height 172.7 cm (5' 8) 07/26/2005 3:27 PM COSTUMED CHARACTER C: 172.7 cm Body Mass Index 22.12 07/26/2005 3:27 PM COSTUMED CHARACTER Body Mass Index Percentile 69.33 % 07/26/2005 3:27 PM CS T Growth Chart: [facility] (Girls, 2-20 Years) documented in this encounter Progress Notes Jarrett Weiner MD - 07/26/2005 12:01 AM CST Progress Notes signed by Jarrett Weiner MD at 08/09/05 1355 Author: Jarrett Weiner MD Service: (none) Author Type: Physician Filed: 08/17/10 1225 Note Time: 07/26/052014 Status: Signed Honey Processor: Jarrett Weiner MD (Physician) NAME: MINO POSADAS MR: [id number] ACCT: [id number] VISIT: [id number] DICTATING CLINICIAN: JARRETT WEINER MD JOB: [id number] CLINIC PROGRESS NOTE DATE OF VISIT: 07/26/2005 [...] metronidazole and continuing with Zelnorm, and followup. SCM:[id number] C: 07/30/05 15:07 DOCUMENT: [id number] documented in this encounter Plan of Treatment Not on filedocumented as of this encounter Visit Diagnoses Not on filedocumented in this encounter Care Teams Rural Carrier Relationship Specialty Start Date End Date Brisa Smith PA-C PCP - General 07/30/10 04/18/15 [address] [place] [address] documented as of this encounter
--- OUTSIDE RECORDS SUMMARY | 2022-02-01 07:49 | XMS_ITS | Encounter Summary ---
:1990 Author Organization [facility] Address [address] [address] Care Team Providers Name Role Phone Brisa Smith PA-C Primary Care Provider Encounter Details Date Type Department Care Team Description 07/11/2007 PN Conversion Only [place] CON[facility] Roxanne Perera, [address] [place] [address] Social History Tobacco Use Types Packs/Day Years [...] Rapid Strep Follow up Culture ? Collected: ??[id number] ??1442 Source: Throat ?Processed: ??[id number] ??1502 ? 1V Final Report ------ ?[id number] ??0756 No beta hemolytic Strep group A isolated . Specimen (Source) Anatomical Collection Method Collection Time Re ceived Time Location / / Volume Laterality 07/11/2007 2:42 PM CDT Roxanne Serrato MD LAB_1 Performing Organization Address City/State/ZIP Code Phon e Number HP CONVERSION documented in this encounter Visit Diagnoses Not on filedocumented in this encounter Care Teams Purification Operator Relationship Specialty Start Date End Date Brisa Smith PA-C PCP - General 07/30/10 04/18/15 [address] [place], [place] [address] documented as of this encounter
--- OUTSIDE RECORDS SUMMARY | 2022-02-01 07:49 | XMS_ITS | Encounter Summary ---
:1990 Author Organization [facility] Address [address], [place] [address] Care Team Providers Name Role Phone Brisa Smith PA-C Primary Care Provider Encounter Details Date Type Department Care Team Description 11/25/2006 PN Conversion Only Rahat Booth PA-C [address] [place] [address] [place] [address] (Wo rk) Social History Tobacco Use Types [...] Transmitted Disease Probe (11/25/2006 2:36 PM CDT) [facility] Method Time Signature Sexually SEE TEXT HP CONVERSION Transmitted Disease Probe Comment: Patient: MINO POSADAS Sexually Trans Disease Probe @ ?Collected: ??[id number] ??1436 Source: ENDOCERV ?Processed: ??[id number] ??1436 Final Report ------ ?[id number] ??1241 No Chlamydia trachomatis detected by amp lified DNA assay No Neisseria gonorrhoeae detected by amp lified DNA assay The [employer] Amplified DNA assay is amadou red by the FDA for non-medicolegal diagnostic testing in the adult population. @ = Sexually Trans Disease Probe Perform ed at ??[address] [place] [address] ?[place] [address] Specimen (Source) Anatomical Collection Method Collection Time Re ceived Time Location / / Volume Laterality 11/25/2006 2:36 PM CDT Rahat Mix PA-C LAB_1 Performing Organization Address City/[facility] Code Phon e Number HP CONVERSION Cholesterol (Total) (11/25/2006 12:12 PM CDT) athologist Signature Cholesterol 140 <170 mg/dL HP CONVERSION Specimen (Source) Anatomical Collection Method Collection Time Re ceived Time Location / / Volume Laterality 11/25/2006 12:12 PM CDT Rahat Mix PA-C LAB_1 Performing Organization Address City/[facility]/ZIP Code Phon e Number HP CONVERSION HDL [...] Rahat Mix PA-C LAB_1 Performing Organization Address [facility]/ZIP Code Phon e Number HP CONVERSION Pap Smear (11/25/2006 12:00 PM CDT) [facility] gist Method Time Signature PAP Smear SEE TEXT No normal HP CONVERSION Liquid Based range Comment: Patient: MINO POSADAS ? CERVICAL CYTOLOGY REPORT Pathology # ??[id number] ?Date Obtained: ? Date Received: CYTOLOGIC IMPRESSION: [...] on filedocumented in this encounter Care Teams Spoilage Worker Relationship Specialty Start Date End Date Brisa Smith PA-C PCP - General 07/30/10 04/18/15 [address] [place], [place] [id number] documented as of this encounter
--- OUTSIDE RECORDS SUMMARY | 2022-02-01 07:49 | XMS_ITS | Encounter Summary ---
:1990 Author Organization [facility] Address [address] [place] [address] Care Team Providers Name Role Phone Brisa Smith PA-C Primary Care Provider Encounter Details Date Type Department Care Team Description 10/26/2004 Office Visit [facility] Jose Flynn MD Orthopedics [address] [place] [address] Social History Tobacco Use Types Packs/Day Years Used Date Smoking Tobacco: Never Assessed Sex Assigned at Date Recorded Not on file documented as of this encounter Progress Notes Ranjith Garcia - 10/26/2004 12:01 AM CDT Progress Notes signed by at 10/30/04 0637 Author: Ranjith Garcia MD Service: (none) Author Type: (none) Filed: 08/17/10 0654 Note Time: 10/26/04 0001 Status: Signed Health Safety Coordinator: Rudy Conversion NAME: MINO POSADAS MR: [id number] ACCT: [id number] VISIT: [id number] DICTATING CLINICIAN: RANJITH GARCIA MD,MPH JOB: [id number] CLINIC PROGRESS NOTE DATE OF VISIT: 10/26/2004 [...] an MRI scan of her right wrist. DGK:[id number] C: 10/28/04 13:48 DOCUMENT: [id number] ING BALL MARKER documented in this encounter Plan of Treatment [...] is seen on these films. ljc/ ?? [id number] Dictating [facility] RADIOLOGIST Procedure Note Rivera Corbett - 06/29/2016 The previously noted tiny density descri bed adjacent to the medial aspect of the ulnar distal epiphysis on the films of 10/22/04 is not identified on today's films. No bony dis placement or complication is seen on these films. lj/ [id number] Dictating [facility] RADIOLOGIST Jose Garcia MD RAD GD documented in this encounter Visit Diagnoses Not on filedocumented in this encounter Care Teams Merchandise Flow Manager Relationship Specialty Start Date End Date Brisa Smith PA-C PCP - General 07/30/10 04/18/15 [address] [place] [address] documented as of this encounter
--- OUTSIDE RECORDS SUMMARY | 2022-02-01 07:49 | XMS_ITS | Encounter Summary ---
:1990 Author Organization [facility] Address [address], [place] [address] Care Team Providers Name Role Phone Brisa Smith PA-C Primary Care Provider Encounter Details Date Type Department Care Team Description 07/16/2006 PN Conversion Only [place] JACKIE Rosas, [address] APRN, [place] [address] [address] [place] [address] (Wo rk) Social History Tobacco Use [...] 12:43 PM CDT) Analysis Performed At [facility] Time Signature Strep Group A Negative Negative HP CONVERSION Antigen Test Comment: Culture to follow. Specimen (Source) Anatomical Collection Method Collection Time Re ceived Time Location / / Volume Laterality 07/16/2006 12:43 PM CDT Lillian Rosas APRN, PEER TUTOR LAB_1 Performing Organization Address City/State/ZIP Code Phon e Number HP CONVERSION Beta Strep Followup (07/16/2006 12:43 PM CDT) P athologist Signature Strep Screen SEE TEXT HP CONVERSION Comment: Patient: MINO POSADAS Rapid Strep Follow up Culture @ ? Collected: ??[id number] ??[id number] Source: Throat ?Processed: ??[id number] ??1247 Final Report ------ ?[id number] ??0729 No beta hemolytic Strep group A isolated . @ = Rapid F/U Cult Performed at ??[address] [place], [place] ?[address] Specimen (Source) Anatomical Collection Method Collection Time Re ceived Time Location / / Volume Laterality 07/16/2006 12:43 PM CDT Lillian Rosas APRN, PEER TUTOR LAB_1 Performing Organization Address City/State/ZIP Code Phon e Number HP CONVERSION documented in this encounter Visit Diagnoses Not on filedocumented in this encounter Care Teams Computer Network Specialist Relationship Specialty Start Date End Date Brisa Smith PA-C PCP - General 07/30/10 04/18/15 [address] [place], [place] [phone] documented as of this encounter
--- OUTSIDE RECORDS SUMMARY | 2022-02-01 07:49 | XMS_ITS | Encounter Summary ---
:1989 Author Organization [facility] Address [address] [place] [address] Care Team Providers Name Role Phone Brisa Smith PA-C Primary Care Provider Encounter Details Date Type Department Care Team Description 11/25/2006 Office Visit Rahat Mckeon PA-C [facility] [address] [place] [address] [place] [address] [place] [address] [phone] (Wo rk) Social History Tobacco Use Types [...] Mix PA-C Service: (none) Author Type: Physician Senior Underwriter Filed: 08/17/10 220 Note Time: 11/25/06 0001 Status: Signed Timers Inspector: Rahat Mix PA-C (Physician Senior Underwriter) Preventive Exam & Pelvic IMPRESSION: Routine preventive [...] current method of contraception Past Medical History: Shuttler History: Pt. has never been . Menstrual [...] and [facility]. Current Medications: Reviewed today and [facility] Family History: (First degree family members) Asthma. Social History: Employment status: Student. Marital Status: Single. 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 She will play volleyball [...] adenopathy. Pelvic: Normal external genitalia and urethra. [place], moist vaginal and cervical mucosa, without lesions. [...] on filedocumented in this encounter Care Teams Before School Relationship Specialty Start Date End Date Brisa Smith PA-C PCP - General 07/30/10 04/18/15 [address] [place] [address] documented as of this encounter
--- OUTSIDE RECORDS SUMMARY | 2022-02-01 07:49 | XMS_ITS | Encounter Summary ---
:1990 Author Organization [employer] Address [address] [place] [address] Care Team Providers Name Role Phone Brisa Smith PA-C Primary Care Provider Encounter Details Date Type Department Care Team Description 03/25/2005 PN Conversion Only HELENA CONVERSION Lena Chiu, SERVICE LEARNING COORDINATOR, [address] [place] [address] [address] [address] 5101 (Wo rk) Social History Tobacco Use Types Packs/Day Years Used Date Smoking Tobacco: Never Assessed Sex Assigned at Date Recorded Not on file documented as of this encounter Plan of Treatment Not on filedocumented as of this encounter Procedures Procedure Name Priority Date/Time Associated Comments Diagnosis PARVOVIRUS B19 IGG & IGM Routine 03/25/2005 2:38 Results for this ANTIBODIES PM ROOF BOLTER HELPER procedure are i n the results section. ISA ALTAMIRANO VIRUS PANEL Routine 03/25/2005 2:38 Results for this PM ROOF BOLTER HELPER procedure are i n the results section. CYTOMEGALOVIRUS IGM Routine 03/25/2005 2:38 Resul ts for this ANTIBODY PM ROOF BOLTER HELPER procedure are i n the results section. CYTOMEGALOVIRUS IGG Routine 03/25/2005 2:38 Resul ts for this ANTIBODY PM ROOF BOLTER HELPER procedure are i n the results section. URINALYSIS COMPLETE Routine 03/25/2005 2:38 Resul ts for this PM ROOF BOLTER HELPER procedure are i n the results section. MONONUCLEOSIS SCREEN Routine 03/25/2005 2:38 Resu lts for this PM ROOF BOLTER HELPER procedure are i n the results section. COMPLETE BLOOD Routine 03/25/2005 2:38 Results fo r this COUNT-W/DIFF PM ROOF BOLTER HELPER procedure are i n the results section. documented in this encounter Results Complete Blood Count-W/Diff (03/25/2005 2:38 PM ROOF BOLTER HELPER) [facility] Method Time Signature White Blood Cell 5.7 [...] HP CONVERSION Hemoglobin Conc 36.5 gm/dL [place] RDW 12.2 11.0 - HP CONVERSION 15.0 [...] / / Volume Laterality 03/25/2005 2:38 PM ROOF BOLTER HELPER Lena Chiu APRN, CNP LAB_1 Performing Organization Address City/[facility]/ZIP Code Phon e Number HP CONVERSION Mononucleosis Screen (03/25/2005 2:38 PM ROOF BOLTER HELPER) [facility] Method Time Signature Infectious Negative Negative HP CONVERSION Mononucleosis Screen Specimen (Source) Anatomical Collection Method Collection Time Re ceived Time Location / / Volume Laterality 03/25/2005 2:38 PM ROOF BOLTER HELPER Lena Chiu APRN, CNP LAB_1 Performing Organization Address City/State/ZIP Code Phon e Number HP CONVERSION Urinalysis Complete (03/25/2005 2:38 PM ROOF BOLTER HELPER) [facility] Method Time Signature Glucose, Negative Neg-Trac HP CONVERSION Qualitative U Protein Urine Negative Neg-Trac HP CONVERSION Ketones Negative Negative HP CONVERSION U BILI Negative Negative HP CONVERSION U Specific 1.025 1.005 - 25 HP CONVERSION [place] Blood Urine Negative Negative HP CONVERSION pH [...] / / Volume Laterality 03/25/2005 2:38 PM ROOF BOLTER HELPER Lena Chiu SERVICE LEARNING COORDINATOR, DIRECTOR BIOLOGY LAB_1 Performing Organization Address City/State/ZIP Code Phon e Number HP CONVERSION Isa Altamirano Virus Panel (03/25/2005 2:38 PM ROOF BOLTER HELPER) athologist Signature Isa-Altamirano 0.35 HP CONVERSION [...] / / Volume Laterality 03/25/2005 2:38 PM ROOF BOLTER HELPER Lena Chiu APRN, DIRECTOR BIOLOGY LAB_1 Performing Organization Address City/State/ZIP Code Phon e Number HP CONVERSION Parvovirus B19 Igg & Igm Antibodies (03/25/2005 2:38 PM ROOF BOLTER HELPER) athologist Signature Parvovirus B19 0.28 HP [...] / / Volume Laterality 03/25/2005 2:38 PM ROOF BOLTER HELPER Lena Chiu APRN, ROSA LAB_1 Performing Organization Address [facility] Phon e Number HP CONVERSION Cytomegalovirus IgG Antibody (03/25/2005 2:38 PM ROOF BOLTER HELPER) [facility] Method Time Signature Cytomegalovirus IgG 36 AU [...] / / Volume Laterality 03/25/2005 2:38 PM ROOF BOLTER HELPER Lena Chiu APRN, ROSA LAB_1 Performing Organization Address [facility] Phon e Number HP CONVERSION Cytomegalovirus IgM Antibody (03/25/2005 2:38 PM ROOF BOLTER HELPER) [facility] gist Method Time Signature Cytomegalovirus IgM 0.07 [...] / / Volume Laterality 03/25/2005 2:38 PM ROOF BOLTER HELPER Lena Chiu APRN, DIRECTOR BIOLOGY LAB_1 Performing Organization Address City/State/ZIP Code Phon e Number HP CONVERSION documented in this encounter Visit Diagnoses Not on filedocumented in this encounter Care Teams Design Director Relationship Specialty Start Date End Date Brisa Smith PA-C PCP - General 07/30/10 04/18/15 [address] [place] [address] documented as of this encounter
--- OUTSIDE RECORDS SUMMARY | 2022-02-01 07:49 | XMS_ITS | Encounter Summary ---
:1990 Author Organization [facility] Address [address] [place] [address] Care Team Providers Name Role Phone Brisa Smith PA-C Primary Care Provider Encounter Details Date Type Department Care Team Description 12/06/2004 [facility] Jose Flynn MD Orthopedics [address] [place] [address] Social History Tobacco Use Types Packs/Day Years Used Date Smoking Tobacco: Never Assessed Sex Assigned at Date Recorded Not on file documented as of this encounter Progress Notes Ranjith Garcia - 12/06/2004 12:01 AM CDT Progress Notes signed by at 12/12/04 1200 Author: Ranjith Garcia MD Service: (none) Author Type: (none) Filed: 08/17/10 0739 Note Time: 12/06/04 0001 Status: Signed Dough Mixer: Rudy Conversion NAME: MINO POSADAS MR: [id number] ACCT: [id number] VISIT: [id number] DICTATING CLINICIAN: RANJITH GARCIA MD,MPH JOB: [id number] CLINIC PROGRESS NOTE DATE OF VISIT: 12/06/2004 [...] guard here for the next few weeks. [id number]:[id number] C: 12/06/04 09:12 DOCUMENT: [id number] ENGINEER documented in this encounter Plan of Treatment Not on filedocumented as of this encounter Visit Diagnoses Not on filedocumented in this encounter Care Teams Calciner Feeder Relationship Specialty Start Date End Date Brisa Smith PA-C PCP - General 07/30/10 04/18/15 [address] [place] [address] documented as of this encounter
--- OUTSIDE RECORDS SUMMARY | 2022-02-01 07:49 | XMS_ITS | Encounter Summary ---
:1990 Author Organization [facility] Address [address] [place] [address] Care Team Providers Name Role Phone Brisa Smith PA-C Primary Care Provider Encounter Details Date Type Department Care Team Description 01/17/2005 Office Visit [facility] Abhay Philippe MD [facility] [employer] [address] [place] [address] [place] [address] [place] [address] [phone] (Wo rk) Social History Tobacco Use Types [...] 08/17/10 0829 Note Time: 01/17/052016 Status: Signed Boil Off Worker: Abhay Philippe MD (Physician) NAME: MINO POSADAS MR: [id number] ACCT: [id number] VISIT: [id number] DICTATING CLINICIAN: ABHAY PHILIPPE MD JOB: [id number] CLINIC PROGRESS NOTE DATE OF VISIT: 01/17/2005 [...] does have slight abductor pain against resistance. BACKEND TESTER otherwise intact. Did obtain AP and frog-leg x-rays of pelvis. No obvious avulsion fracture. ASSESSMENT: Clinically concerned about an occult avulsion fracture with the distinct popping sensation vs a muscle strain/tendinitis. PLAN: Did recommend crutches, nonweightbearing and follow up with Orthopedics in 1 week. Symptomatic care described. Discussed with father in the exam room and later with mother by phone. DIAGNOSIS/IMPRESSION: Hip pain. RGS:[id number] C: 01/23/05 15:15 DOCUMENT: [id number] documented in this encounter Plan of Treatment [...] or significant bone or joint ab normality. [id number]/rbaulio Dictating TORIBIO WHEELER RADIOLOGIST Procedure Note Toribio Roy - 06/29/2016Formatting o f this note might be different from the original. HISTORY: Pain with volleyball injury. No acute or significant bone or joint ab normality. [id number]/braulio Dictating TORIBIO WHEELER RADIOLOGIST Abhay Philippe MD RAD GD documented in this encounter Visit Diagnoses Not on filedocumented in this encounter Care Teams Manager Supplier Relationship Specialty Start Date End Date Brisa Smith PA-C PCP - General 07/30/10 04/18/15 [address] [place] [address] documented as of this encounter
--- OUTSIDE RECORDS SUMMARY | 2022-02-01 07:49 | XMS_ITS | Encounter Summary ---
:1990 Author Organization [employer] Address [address] [place] [address] Care Team Providers Name Role Phone Brisa Smith PA-C Primary Care Provider Encounter Details Date Type Department Care Team Description 03/05/2005 PN Conversion Only HELENA CONVERSION Lena Chiu, SHIPWRIGHT SUPERVISOR, [address] [address] [address] [phone] (Wo rk) Social History Tobacco Use Types Packs/Day Years Used Date Smoking Tobacco: Never Assessed Sex Assigned at Date Recorded Not on file documented as of this encounter Plan of Treatment Not on filedocumented as of this encounter Procedures Procedure Name Priority Date/Time Associated Comments Diagnosis STREP GROUP A ANTIGEN Routine 03/05/2005 4:21 PM Results for this TEST EDUCATION NURSE procedure are i n the results section. BETA STREP FOLLOWUP Routine 03/05/2005 4:21 PM Re sults for this EDUCATION NURSE procedure are i n the results section. THYROID STIMULATING Routine 03/05/2005 3:47 PM Re sults for this HORMONE EDUCATION NURSE procedure are i n the results section. MONONUCLEOSIS SCREEN Routine 03/05/2005 3:47 PM R esults for this EDUCATION NURSE procedure are i n the results section. COMPLETE BLOOD Routine 03/05/2005 3:47 PM Results for this COUNT-W/DIFF EDUCATION NURSE procedure are i n the results section. FERRITIN Routine 03/05/2005 3:47 PM Results f or this EDUCATION NURSE procedure are i n the results section. documented in this encounter Results Strep Group A Antigen Test (03/05/2005 4:21 PM EDUCATION NURSE) [facility] Signature Strep Group A Negative Negative HP CONVERSION Antigen Test Comment: Culture to follow. Specimen (Source) Anatomical Collection Method Collection Time Re ceived Time Location / / Volume Laterality 03/05/2005 4:21 PM EDUCATION NURSE Lena Chiu APRN, ROSA LAB_1 Performing Organization Address [facility] Phon e Number HP CONVERSION Beta Strep Followup (03/05/2005 4:21 PM EDUCATION NURSE) athologist Signature Strep Screen SEE TEXT HP CONVERSION Comment: Patient: MINO POSADAS Rapid Strep Follow up Culture @ ? Collected: ??[id number] ??[id number] Source: Throat ?Processed: ??[id number] ??1622 Final Report ------ ?[id number] ??[id number] No beta hemolytic Strep group A isolated . @ = Rapid F/U Cult Performed at [address] [place], [place] ?[address] Specimen (Source) Anatomical Collection Method Collection Time Re ceived Time Location / / Volume Laterality 03/05/2005 4:21 PM EDUCATION NURSE Lena Chiu APRN, ROSA LAB_1 Performing Organization Address [facility] Phon e Number HP CONVERSION (ABNORMAL) Complete Blood Count-W/Diff (03/05/2005 3:47 PM EDUCATION NURSE) [facility] Method Time Signature White Blood Cell 7.5 [...] - HP CONVERSION Hemoglobin Conc 36.5 gm/dL [place] RDW 12.3 11.0 - HP CONVERSION 15.0 [...] / / Volume Laterality 03/05/2005 3:47 PM EDUCATION NURSE Lena Chiu APRN, CNP LAB_1 Performing Organization Address City/[facility]/ZIP Code Phon e Number HP CONVERSION Mononucleosis Screen (03/05/2005 3:47 PM EDUCATION NURSE) [facility] Method Time Signature Infectious Negative Negative HP CONVERSION Mononucleosis Screen Specimen (Source) Anatomical Collection Method Collection Time Re ceived Time Location / / Volume Laterality 03/05/2005 3:47 PM EDUCATION NURSE Lena Chiu APRN, CNP LAB_1 Performing Organization Address City/State/ZIP Code Phon e Number HP CONVERSION Thyroid Stimulating Hormone (03/05/2005 3:47 PM EDUCATION NURSE) athologist Signature Thyroid 1.20 0.20 - HP CONVERSION Stimulating 4.50 Hormone uIU/mL Specimen (Source) Anatomical Collection Method Collection Time Re ceived Time Location / / Volume Laterality 03/05/2005 3:47 PM EDUCATION NURSE Lena Chiu APRN, CNP LAB_1 Performing Organization Address City/State/ZIP Code Phon e Number HP CONVERSION Ferritin (03/05/2005 3:47 PM EDUCATION NURSE) P athologist Signature Ferritin Serum 13 10 - 291 HP CONVERSION ng/mL Specimen (Source) Anatomical Collection Method Collection Time Re ceived Time Location / / Volume Laterality 03/05/2005 3:47 PM EDUCATION NURSE Lena Chiu SHIPWRIGHT SUPERVISOR, CLERK OF SUPERIOR COURT LAB_1 Performing Organization Address City/State/ZIP Code Phon e Number HP CONVERSION documented in this encounter Visit Diagnoses Not on filedocumented in this encounter Care Teams Handbag Operator Relationship Specialty Start Date End Date Brisa Smith PA-C PCP - General 07/30/10 04/18/15 [address] [place] [address] documented as of this encounter
--- OUTSIDE RECORDS SUMMARY | 2022-02-01 07:49 | XMS_ITS | Encounter Summary ---
:1990 Author Organization [facility] [employer] [facility] Address [address] [address] Care Team Providers Name Role Phone Brisa Smith PA-C Primary Care Provider Encounter Details Date Type Department Care Team Description 01/17/2007 Office Visit [facility] [place] [address] [address] [place] [address] [phone] Social History Tobacco Use Types Packs/Day Years [...] documented in this encounter Progress Notes Jagdeep Kwko MD - 01/17/2007 12:01 AM CDT Progress Notes signed by Jagdeep Kwok MD at 02/05/072041 Author: Jagdeep Kwok MD Service: (none) Author Type: Physician Filed: 08/17/10 8296 Note Time: 01/17/07 0001 Status: Signed Sales Enablement Analyst: Jagdeep Kwok MD (Physician) NAME: MINO POSADAS MR#: [id number] ACCT: [id number] VISIT: [id number] DICTATING CLINICIAN: Jagdeep Kwok MD JOB: [id number] LOC: 520 CLINIC PROGRESS NOTE DATE OF [...] Zithromax was given for the second week. BOR:[id number] C: 01/18/07 18:42 DOCUMENT: [id number] documented in this encounter Plan of Treatment Not on filedocumented as of this encounter Visit Diagnoses Not on filedocumented in this encounter Care Teams Industrial Technologist Relationship Specialty Start Date End Date Brisa Smith PA-C PCP - General 07/30/10 04/18/15 [address] [place] [address] documented as of this encounter
--- OUTSIDE RECORDS SUMMARY | 2022-02-01 07:49 | XMS_ITS | Encounter Summary ---
:1990 Author Organization [employer] Address [address], [place] [address] Care Team Providers Name Role Phone Brisa Smith PA-C Primary Care Provider Encounter Details Date Type Department Care Team Description 03/05/2005 Office Visit [facility] Lena Wrgiht, CLAIM REPRESENTATIVE, PRIZE COORDINATOR [address] [place] [address] [phone] (Wo rk) Social History Tobacco Use Types Packs/Day Years Used Date Smoking Tobacco: Never Assessed Sex Assigned at Date Recorded Not on file documented as of this encounter Last Filed Vital Signs Vital Sign Reading Time Taken Comments Blood Pressure 108/66 03/05/2005 3:20 PM MARINE OILER Pulse - - Temperature 36.9 ??C (98.4 ??F) 03/05/2005 3:20 PM ORAL C: 3 6.9 C MARINE OILER Respiratory Rate - - Oxygen Saturation - - Inhaled Oxygen Concentration - - Weight 65.3 kg (143 lb 15.7 03/05/2005 3:20 PM C: 65.3k g oz) MARINE OILER Height - - Body Mass Index - - documented in this encounter Progress Notes Lena Chiu - 03/05/2005 12:01 AM CST Progress Notes signed by KIMBERLY Guerrier at 03/06/05 1526 Author: KIMBERLY Guerrier Service: (none) Author Type: Nurse Practitioner Filed: 08/17/10 0927 Note Time: 03/05/05 0001 Status: Signed Table Operator: KIMBERLY Guerrier (Nurse Practitioner) NAME: MINO POSADAS MR: [id number] ACCT: [id number] VISIT: [id number] DICTATING CLINICIAN: LENA CHIU NP JOB: [id number] CLINIC PROGRESS NOTE DATE OF VISIT: 03/05/2005 [...] probable viral syndrome. She then sought career development director who specializes in supplements, started on the supplements, and started feeling better for several months. She was not feeling well for the past month or two, resumed the career development director and supplements, felt sick for about a week, and now reports feeling better. She is physically active, attends the 10th grade at [employer], A student. Reports no concerns with any relationships at home or school. Sexually abstinent. No concerns for . LMP 2 weeks ago. Nonsmoker. No alcohol use or illicit drugs. Patient was interviewed separately from her mother. No urine frequency, urge, or dysuria. No concerns for depression. MEDICATIONS: Several supplements including CoQ10 several Romansh herbs, and a pill called Cell Revive. [...] organomegaly, masses, or guarding. No CVAT. LABS: [place] screen negative. Rapid strep screen negative. WBC [...] I am not clear as to what Romansh herbs she is on. If she reports any other unusual concerns or symptoms, I would ask her to stop those and follow up. FINAL IMPRESSION: Fatigue, sore throat, and headache, suspect viral etiology, improving. ALK:[id number] C: 03/06/05 09:29 DOCUMENT: [id number] NE OILER documented in this encounter Plan of Treatment Not on filedocumented as of this encounter Visit Diagnoses Not on filedocumented in this encounter Care Teams Visual Associate Relationship Specialty Start Date End Date Brisa Smith PA-C PCP - General 07/30/10 04/18/15 [address] [place] [address] documented as of this encounter
--- OUTSIDE RECORDS SUMMARY | 2022-02-01 07:49 | XMS_ITS | Encounter Summary ---
:1990 Author Organization [employer] Address [address] [place] [address] Care Team Providers Name Role Phone Brisa Smith PA-C Primary Care Provider Encounter Details Date Type Department Care Team Description 03/25/2005 Office Visit [facility] Lena Wright, CIGAR BINDER, CHARTER BUS DRIVER [address] [place] [address] [phone] (Wo rk) Social History Tobacco Use Types Packs/Day Years Used Date Smoking Tobacco: Never Assessed Sex Assigned at Date Recorded Not on file documented as of this encounter Last Filed Vital Signs Vital Sign Reading Time Taken Comments Blood Pressure 104/60 03/25/2005 2:07 PM MANAGER FRENCH Pulse - - Temperature 36.9 ??C (98.4 ??F) 03/25/2005 2:07 PM ORAL C: 3 6.9 C MANAGER FRENCH Respiratory Rate - - Oxygen Saturation - - Inhaled Oxygen Concentration - - Weight 64.4 kg (142 lb) 03/25/2005 2:07 PM C: 64.4kg MANAGER FRENCH Height - - Body Mass Index - - documented in this encounter Progress Notes Lena Chiu - 03/25/2005 12:01 AM CST Progress Notes signed by KIMBERLY Guerrier at 03/26/05 1444 Author: KIMBERLY Guerrier Service: (none) Author Type: Nurse Practitioner Filed: 08/17/10 0950 Note Time: 03/25/05 0001 Status: Signed Wind Turbine Service Technician: KIMBERLY Guerrier (Nurse Practitioner) NAME: MINO POSADAS MR: [id number] ACCT: [id number] VISIT: [id number] DICTATING CLINICIAN: LENA CHIU NP JOB: [id number] CLINIC PROGRESS NOTE DATE OF VISIT: 03/25/2005 SUBJECTIVE: Chief Complaint: A 14-year-old female follows up for recurrent sore throat, fatigue, intermittent nausea, headaches. Seen early February (03/19/2005). Symptoms improved for a while, was not completely 100% better but now symptoms recurred. These have been occurring on and off since this past spring. She is followed with a editorial clerk and chiropractor who has her on several [...] lb in the past two weeks. Attends [employer], a student, plays volleyball. Has been missing [...] swollen glands. MEDICATIONS: COQ10, multivitamins, NADH, a Mongolian herb. Monolaurin supplement, Cordyceps (Mongolian mushroom supplement). Taking these supplements t.i.d. ADR/ALLERGIES: [...] No CVAT. LABS: CBC normal. UA normal. Allen screen negative. Strep culture negative 03/05/2005. ASSESSMENT: Recurrent symptoms fatigue, sore throat, nausea, abdominal pain, headache, feeling feverish; unclear etiology; possibly mono-like virus. PLAN: Checking serum Mary-Jefferson virus, IgG, IgM; parvovirus IgG, IgM and CMV IgG, IgM. Notify once available. If these are negative and the symptoms are persisting will consult one of my physician colleagues for any further work up. Continue adequate fluid hydration. Depending on lab results or if symptoms persist; plan follow up and may consider having her stop some of the Mongolian herbal supplements. She follows with Junior Williamson at [facility] in [place], [place] (Range Technician/Chiropractor). FINAL IMPRESSION: Constellation of symptoms including fatigue, sore throat, intermittent abdominal pain, nausea, headache ALK:[id number] C: 03/26/05 13:48 DOCUMENT: [id number] GER FRENCH documented in this encounter Plan of Treatment Not on filedocumented as of this encounter Visit Diagnoses Not on filedocumented in this encounter Care Teams Tank Carpenter Relationship Specialty Start Date End Date Brisa Smith PA-C PCP - General 07/30/10 04/18/15 [address] [place] [address] documented as of this encounter
--- OUTSIDE RECORDS SUMMARY | 2022-02-01 07:49 | XMS_ITS | Encounter Summary ---
:1990 Author Organization [employer] Address [address], [place] [address] Care Team Providers Name Role Phone Brisa Smith PA-C Primary Care Provider Reason for Visit Reason Comments Other Encounter Details Date Type Department Care Team Description 03/05/2005 Telephone [facility] Genoveva Villasenor LPN Other [address] [place] [address] Social History Tobacco Use Types Packs/Day Years Used Date Smoking Tobacco: Never Assessed Sex Assigned at Date Recorded Not on file documented as of this encounter Progress Notes Center, [facility] - 03/05/2005 7:57 AM CST Phone Note filed by [employer] at 08/13/102207 Author: [employer] Service: (none) Author Type: (none) Filed: 08/13/102207 Note Time: 03/05/05756 Status: Signed Bow Maker Custom: [employer] Mom Shemar) calling to request a work-in this afternoon. She wants Hellen to get a mono test, and you have a few 15 minute openings. She can be reached at [phone]. Created on 05Mar2005 7:57am by DAWSON DILLON [...] needed. Acknowledged by GENOVEVA JARQUIN on 10:02am S TIE MAKER documented in this encounter Plan of Treatment Not on filedocumented as of this encounter Visit Diagnoses Not on filedocumented in this encounter Care Teams Tile Conduit Layer Relationship Specialty Start Date End Date Brisa Smith PA-C PCP - General 07/30/10 04/18/15 [address] [place] [address] documented as of this encounter
--- OUTSIDE RECORDS SUMMARY | 2022-02-01 07:49 | XMS_ITS | Encounter Summary ---
:1990 [address] [facility] Address [address], [place] [address] Care Team Providers Name Role Phone Brisa Smith PA-C Primary Care Provider Encounter Details Date Type Department Care Team Description 07/16/2006 PN Conversion Only HELENA CONVERSION [address] [place] [address] Social History Tobacco Use Types Packs/Day Years Used Date Smoking Tobacco: Never Assessed Sex Assigned at Date Recorded Not on file documented as of this encounter Plan of Treatment Not on filedocumented as of this encounter Visit Diagnoses Not on filedocumented in this encounter Care Teams Fresh Foods Cake Decorator Relationship Specialty Start Date End Date Brisa Smith PA-C PCP - General 07/30/10 04/18/15 [address] [place], [place] [address] documented as of this encounter
--- OUTSIDE RECORDS SUMMARY | 2022-02-01 07:49 | XMS_ITS | Encounter Summary ---
:1990 Author Organization [employer] Address [address] [address] Care Team Providers Name Role Phone Brisa Smith PA-C Primary Care Provider Encounter Details Date Type Department Care Team Description 07/16/2006 Office Visit [place] Rosas, Declan5 Kaitlin Stern APRN, DESIGN SALES CONSULTANT [place], [place] [address] [address] Kaitlin Florian [phone] [place] [address] (Wo rk) Social History Tobacco Use [...] by Lillian Rosas APRN, CNP at 07/16/06 0182 Author: Lillian Rosas, JOVANNA Service: (none) Author Type: Nurse Practitioner Filed: 08/17/101929 Note Time: 07/16/06 0001 Status: Signed Plant Operator Helper: JOVANNA Gagnon (Nurse Practitioner) Acute Clinic Visit [...] [facility]. Chronic medications were reviewed and updated today on Health Profile in [facility]. OBJECTIVE: Weight: 147.5 Temperature: 98.6 degrees F. [...] on filedocumented in this encounter Care Teams Econometrics Professor Relationship Specialty Start Date End Date Brisa Smith PA-C PCP - General 07/30/10 04/18/15 [address] [place] [address] documented as of this encounter
--- OUTSIDE RECORDS SUMMARY | 2022-02-01 07:49 | XMS_ITS | Encounter Summary ---
:1990 Author Organization [employer] Address [address] [address] Care Team Providers Name Role Phone Brisa Smith PA-C Primary Care Provider Encounter Details Date Type Department Care Team Description 07/02/2005 Office Visit [facility] Sussy Enciso, [address] APRN, [place] [address] Social History Tobacco Use Types Packs/Day Years Used Date Smoking Tobacco: Never Assessed Sex Assigned at Date Recorded Not on file documented as of this encounter Last Filed Vital Signs Vital Sign Reading Time Taken Comments Blood Pressure 110/70 07/02/2005 3:10 PM ACTUARIAL SCIENCE TEACHER Pulse 82 07/02/2005 3:10 PM ACTUARIAL SCIENCE TEACHER Temperature - - Respiratory Rate - - Oxygen Saturation - - Inhaled Oxygen Concentration - - Weight 66.6 kg (146 lb 12.5 oz) 07/02/2005 3:10 PM ACTUARIAL SCIENCE TEACHER C: 66.6kg Height - - Body Mass Index 22.32 06/28/2005 2:55 PM ACTUARIAL SCIENCE TEACHER Body Mass Index Percentile 71.37 % 07/02/2005 3:10 PM CS T Growth Chart: CDC (Girls, 2-20 Years) documented in this encounter Progress Notes Sussy Enciso APRN, CNP - 07/02/2005 12:01 AM CST Progress Notes signed by Sussy Enciso APRN, CNP at 07/02/05 1720 Author: GUILLAUME Stevens Service: (none) Author Type: Nurse Practitioner Filed: 08/17/10 1153 Note Time: 07/02/05 0001 Status: Signed Motor Racer: GUILLAUME Stevens (Nurse Practitioner) Subjective: Patient presents [...] is instructed to make a lab appointment. ARIAL SCIENCE TEACHER documented in this encounter Plan of Treatment Not on filedocumented as of this encounter Visit Diagnoses Not on filedocumented in this encounter Care Teams Paint Roller Winder Relationship Specialty Start Date End Date Brisa Smith PA-C PCP - General 07/30/10 04/18/15 [address] [place] [address] documented as of this encounter
--- OUTSIDE RECORDS SUMMARY | 2022-02-01 07:49 | XMS_ITS | Encounter Summary ---
:1990 Author Organization [facility] Address [address] [place] [address] Care Team Providers Name Role Phone Brisa Smith PA-C Primary Care Provider Encounter Details Date Type Department Care Team Description 07/05/2005 Office Visit [facility] Gabo Weiner MD Subspecialty [address] [facility] [place] [address] [place], [place] [address] [phone] Social History Tobacco Use Types Packs/Day Years [...] 1159 Note Time: 07/05/05 0001 Status: Signed Handle Assembler: Jarrett Weiner MD (Physician) NAME: MINO POSADAS MR: [id number] ACCT: [id number] VISIT: [id number] DICTATING CLINICIAN: JARRETT WEINER MD JOB: [id number] CLINIC PROGRESS NOTE DATE OF VISIT: 07/05/2005 [...] has also had evaluation by ENT and STATISTICAL PROGRAMMER ANALYST since our last visit. She has some [...] evaluation today, her followup and our plans. [id number] C: 07/09/05 05:17 DOCUMENT: [id number] ER REPAIR documented in this encounter Plan of Treatment Not on filedocumented as of this encounter Visit Diagnoses Not on filedocumented in this encounter Care Teams Car Wash Attendant Automatic Relationship Specialty Start Date End Date Brisa Smith PA-C PCP - General 07/30/10 04/18/15 [address] [place] [address] documented as of this encounter
--- OUTSIDE RECORDS SUMMARY | 2022-02-01 07:49 | XMS_ITS | Encounter Summary ---
:1990 Author Organization [employer] Address [address] [address] Care Team Providers Name Role Phone Brisa Smith PA-C Primary Care Provider Reason for Visit Reason Comments Other Encounter Details Date Type Department Care Team Description 06/21/2005 Telephone [facility], Message Other [address] [place] [address] Social History Tobacco Use Types Packs/Day Years Used Date Smoking Tobacco: Never Assessed Sex Assigned at Date Recorded Not on file documented as of this encounter Progress Notes Felipe Guevara - 06/21/2005 9:19 AM CST Phone Note filed by Felipe Guevara at 08/14/103 Author: Felipe Guevara Service: (none) Author Type: (none) Filed: 08/14/10 0115 Note Time: 06/21/05918 Status: Signed Research Staff Member: Rudy Strong Patient's mom, Mari, balbina. She is looking for a copy of some labs done after February 26. She is not sure of the exact dates but is interested in certain test results. Please call mom at [phone]. It is okay to leave a message. Created on 21Jun2005 9:19am by FELIPE GUEVARA On 21Jun2005 11:13am AKHIL LEMON wrote: Normal results for blood work left. Advised to call back if she has questions. WRIGHT HELPER documented in this encounter Plan of Treatment Not on filedocumented as of this encounter Visit Diagnoses Not on filedocumented in this encounter Care Teams Bag Shaker Relationship Specialty Start Date End Date Brisa Smith PA-C PCP - General 07/30/10 04/18/15 [address] [place] [address] documented as of this encounter
--- OUTSIDE RECORDS SUMMARY | 2022-02-01 07:49 | XMS_ITS | Encounter Summary ---
:1990 Author Organization [facility] Address [address] [place] [address] Care Team Providers Name Role Phone Brisa Smith PA-C Primary Care Provider Encounter Details Date Type Department Care Team Description 07/11/2007 Office Visit [facility] [place] [address] [place] [address] Social History Tobacco Use Types [...] 0320 Note Time: 07/11/07 0001 Status: Signed Infrastructure Manager: Roxanne Flores MD (Physician) NAME: MNIO POSADAS MR#: [id number] ACCT: [id number] VISIT: [id number] DICTATING CLINICIAN: ROXANNE FLORES MD JOB: [id number] LOC: 520 CLINIC PROGRESS NOTE DATE OF [...] recommend symptomatic treatment, and recheck as needed. [id number] C: 07/13/07 12:26 DOCUMENT: [id number] documented in this encounter Plan of Treatment Not on filedocumented as of this encounter Visit Diagnoses Not on filedocumented in this encounter Care Teams Organic Chemistry Professor Relationship Specialty Start Date End Date Brisa Smith PA-C PCP - General 07/30/10 04/18/15 [address] [place] [address] documented as of this encounter
--- OUTSIDE RECORDS SUMMARY | 2022-02-01 07:49 | XMS_ITS | Encounter Summary ---
:1990 Author Organization [employer] Address [address] [address] Care Team Providers Name Role Phone Brisa Smith PA-C Primary Care Provider Encounter Details Date Type Department Care Team Description 11/02/2004 Office Visit [facility] [place] [id number] [place] [id number] (Wo rk) Social History Tobacco Use Types [...] 0700 Note Time: 11/02/04 0001 Status: Signed International Student Counselor: Tyrone Greer MD (Physician) NAME: MINO POSADAS MR: [id number] ACCT: [id number] VISIT: [id number] DICTATING CLINICIAN: TYRONE GREER MD,MS JOB: [id number] CLINIC PROGRESS NOTE DATE OF VISIT: 11/02/2004 [...] different cast. He agreed to do so. [id number] C: 11/03/04 22:04 DOCUMENT: [id number] documented in this encounter Plan of Treatment Not on filedocumented as of this encounter Visit Diagnoses Not on filedocumented in this encounter Care Teams Nursery Attendant Relationship Specialty Start Date End Date Brisa Smith PA-C PCP - General 07/30/10 04/18/15 [address] [place] [address] documented as of this encounter
--- OUTSIDE RECORDS SUMMARY | 2022-02-01 07:49 | XMS_ITS | Encounter Summary ---
:1990 Author Organization [employer] Address [address] [place] [address] Care Team Providers Name Role Phone Brisa Smith PA-C Primary Care Provider Encounter Details Date Type Department Care Team Description 06/25/2005 Office Visit [facility] Lena Wright, LAYAWAY CLERK, FLORAL SPECIALIST [address] [place] [address] [phone] (Wo rk) Social History Tobacco Use Types Packs/Day Years Used Date Smoking Tobacco: Never Assessed Sex Assigned at Date Recorded Not on file documented as of this encounter Last Filed Vital Signs Vital Sign Reading Time Taken Comments Blood Pressure 118/78 06/25/2005 8:09 AM MAINTENANCE SERVICES DISPATCHER Pulse - - Temperature 36.3 ??C (97.3 ??F) 06/25/2005 8:09 AM MAINTENANCE SERVICES DISPATCHER C: 36 .3 C Respiratory Rate - - Oxygen Saturation - - Inhaled Oxygen Concentration - - Weight 67.6 kg (148 lb 15.8 oz) 06/25/2005 8:09 AM MAINTENANCE SERVICES DISPATCHER C: 67.6kg Height - - Body Mass Index - - documented in this encounter Progress Notes Lena Chiu - 06/25/2005 12:01 AM CST Progress Notes signed by KIMBERLY Guerrier at 06/27/05 4226 Author: KIMBERLY Guerrier Service: (none) Author Type: Nurse Practitioner Filed: 08/17/10 1145 Note Time: 06/25/05 0001 Status: Signed Egg Candler: KIMBERLY Guerrier (Nurse Practitioner) Clinic Visit SUBJECTIVE: [...] is remained on some multivitamins and a [place] herbal product. If she stopped these for any period time she seems to be worse and that's why she continues on these products. Reports exposure to roll over loader who was diagnosed with cytomegalovirus one week [...] etiology. PLAN: Check hemoglobin, ferritin, rheumatoid factor, LEONILA, sed rate, Lyme titer, WBC, repeat parvovirus [...] face to face counseling and per plan. TENANCE SERVICES DISPATCHER documented in this encounter Plan of Treatment Not on filedocumented as of this encounter Visit Diagnoses Not on filedocumented in this encounter Care Teams Sample Carrier Relationship Specialty Start Date End Date Brisa Smith PA-C PCP - General 07/30/10 04/18/15 [address] [place] [address] documented as of this encounter
--- OUTSIDE RECORDS SUMMARY | 2022-02-01 07:49 | XMS_ITS | Encounter Summary ---
:1990 Author Organization [facility] Address [address], [place] [address] Care Team Providers Name Role Phone Brisa Smith PA-C Primary Care Provider Encounter Details Date Type Department Care Team Description 03/11/2007 Nursing Visit Darryn Diaz MD [address] [place] [address] [place] [address] [place] [address] [phone] (Wo rk) Social History Tobacco Use Types Packs/Day Years Used Date Smoking Tobacco: Never Assessed Sex Assigned at Date Recorded Not on file documented as of this encounter Plan of Treatment Not on filedocumented as of this encounter Visit Diagnoses Not on filedocumented in this encounter Care Teams General Cleaner Relationship Specialty Start Date End Date Brisa Smith PA-C PCP - General 07/30/10 04/18/15 [address] [place], [place] [address] documented as of this encounter
--- OUTSIDE RECORDS SUMMARY | 2022-02-01 07:49 | XMS_ITS | Encounter Summary ---
:1990 Author Organization [facility] Address [address], [place] [address] Care Team Providers Name Role Phone Brisa Smith PA-C Primary Care Provider Encounter Details Date Type Department Care Team Description 07/04/2005 Office Visit [facility] [address] Ear, Luz Fajardo MD Nose, and Throat [address] [facility] [address] [facility] [place] [address] [place], [place] [address] [phone] Social History Tobacco Use Types Packs/Day Years [...] 1156 Note Time: 07/04/05 0001 Status: Signed Shipping Agent: Luz Fajardo MD (Physician) NAME: MINO POSADAS MR: [id number] ACCT: [id number] VISIT: [id number] DICTATING CLINICIAN: LUZ FAJARDO MD JOB: [id number] CLINIC PROGRESS NOTE DATE OF VISIT: 07/04/2005 [...] visit with a facial pain TMJ clinical molecular geneticist to see if there is any muscle [...] as needed basis. CC: JARRETT WEINER MD [facility] SMS:[id number] C: 07/04/05 14:01 DOCUMENT: [id number] TESTS CHECKER documented in this encounter Plan of Treatment Not on filedocumented as of this encounter Visit Diagnoses Not on filedocumented in this encounter Care Teams Grain Elevator Clerk Relationship Specialty Start Date End Date Brisa Smith PA-C PCP - General 07/30/10 04/18/15 [address] [place] [address] documented as of this encounter
--- OUTSIDE RECORDS SUMMARY | 2022-02-01 07:49 | XMS_ITS | Encounter Summary ---
:1990 Author Organization [employer] Address [address], [place] [address] Care Team Providers Name Role Phone Brisa Smith PA-C Primary Care Provider Reason for Visit Reason Comments Other Encounter Details Date Type Department Care Team Description 01/18/2005 Telephone [facility], Message Other [address] [place] [address] Social History Tobacco Use Types Packs/Day Years Used Date Smoking Tobacco: Never Assessed Sex Assigned at Date Recorded Not on file documented as of this encounter Progress [facility], Message - 01/18/2005 7:18 AM CDT Phone Note filed by Infusion Resource at 08/13/102054 Author: Infusion Resource Service: (none) Author Type: (none) Filed: 08/13/102054 Note Time: 01/18/05717 Status: Signed Process Worker: Infusion Resource Mom Shemar) Hellen mortensen was in for an appointment yesterday and dad brought her. She'd like to know what went on during the visit. Please call [phone]. Created on 18Jan2005 7:18am by DAWSON DILLON [...] not able to get in next week. [facility] documented in this encounter Plan of Treatment Not on filedocumented as of this encounter Visit Diagnoses Not on filedocumented in this encounter Care Teams Accounting System Expert Relationship Specialty Start Date End Date Brisa Smith PA-C PCP - General 07/30/10 04/18/15 [address] [place] [address] documented as of this encounter
--- OUTSIDE RECORDS SUMMARY | 2022-02-01 07:49 | XMS_ITS | Encounter Summary ---
:1990 Author Organization [employer] Address [address] [place] [address] Care Team Providers Name Role Phone Brisa Smtih PA-C Primary Care Provider Encounter Details Date Type Department Care Team Description 06/28/2005 PN Conversion Only [facility] Jarrett Weiner, [address] [place] [address] [address] [place] [address] (Wo rk) Social History Tobacco Use Types Packs/Day Years Used Date Smoking Tobacco: Never Assessed Sex Assigned at Date Recorded Not on file documented as of this encounter Plan of Treatment Not on filedocumented as of this encounter Procedures Procedure Name Priority Date/Time Associated Comments Diagnosis URINALYSIS COMPLETE Routine 06/28/2005 4:58 PM Re sults for this AUDIT MGR procedure are i n the results section. TEST Routine 06/28/2005 4:58 PM Results for this (URINE) AUDIT MGR procedure are i n the results section. documented in this encounter Results (ABNORMAL) Urinalysis Complete (06/28/2005 4:58 PM AUDIT MGR) [facility] Method Time Signature Glucose, Negative Neg-Trac HP CONVERSION Qualitative U Protein Urine Negative Neg-Trac HP CONVERSION Ketones Negative Negative HP CONVERSION U BILI Negative Negative HP CONVERSION U Specific 1.025 1.005 - 25 HP CONVERSION [place] Blood Urine Negative Negative HP CONVERSION pH [...] / / Volume Laterality 06/28/2005 4:58 PM AUDIT MGR Jarrett Weiner MD LAB_1 Performing Organization Address City/[facility]/ZIP Code Phon e Number HP CONVERSION Test (Urine) (06/28/2005 4:58 PM AUDIT MGR) [facility] Method Time Signature Urine Negative No normal [...] / / Volume Laterality 06/28/2005 4:58 PM AUDIT MGR Jarrett Weiner MD LAB_1 Performing Organization Address City/[facility] Phon e Number HP CONVERSION documented in this encounter Visit Diagnoses Not on filedocumented in this encounter Care Teams Nurse Ob Relationship Specialty Start Date End Date Brisa Simth PA-C PCP - General 07/30/10 04/18/15 [address] [place] [address] documented as of this encounter
--- OUTSIDE RECORDS SUMMARY | 2022-02-01 07:49 | XMS_ITS | Encounter Summary ---
:1990 Author Organization [employer] Address [address] [address] Care Team Providers Name Role Phone Brisa Smith PA-C Primary Care Provider Reason for Visit Reason Comments Other Encounter Details Date Type Department Care Team Description 04/04/2005 Telephone [facility] [place], Message Other [address] [place] [address] Social History Tobacco Use Types Packs/Day Years Used Date Smoking Tobacco: Never Assessed Sex Assigned at Date Recorded Not on file documented as of this encounter Progress Notes Lena Chiu - 04/04/2005 6:22 PM CST Phone Note filed by KIMBERLY Guerrier at 08/13/102299 Author: KIMBERLY Guerrier Service: (none) Author Type: Nurse Practitioner Filed: 08/13/102299 Note Time: 04/04/051821 Status: Signed Box Nailer: KIMBERLY Guerrier (Nurse Practitioner) Please notify ALL [...] is doing, but could stop the other herbal/peruvian products and see how she does. I [...] calling for and received above msg. E PRESSER documented in this encounter Plan of Treatment Not on filedocumented as of this encounter Visit Diagnoses Not on filedocumented in this encounter Care Teams Granite Setter Relationship Specialty Start Date End Date Brisa Smith PA-C PCP - General 07/30/10 04/18/15 [address] [place] [address] documented as of this encounter
--- OUTSIDE RECORDS SUMMARY | 2022-02-01 07:49 | XMS_ITS | Encounter Summary ---
:1990 Author Organization [employer] Address [address] [address] Care Team Providers Name Role Phone Brisa Smith PA-C Primary Care Provider Reason for Visit Reason Comments Other Encounter Details Date Type Department Care Team Description 06/25/2005 Telephone [facility], Message Other [address] [place] [address] Social History Tobacco Use Types Packs/Day Years Used Date Smoking Tobacco: Never Assessed Sex Assigned at Date Recorded Not on file documented as of this encounter Progress Notes Chelo Montiel - 06/25/2005 11:13 AM CST Phone Note filed by Chelo Montiel at 08/14/10121 Author: Chelo Montiel Service: (none) Author Type: (none) Filed: 08/14/10121 Note Time: 06/25/05 1113 Status: Signed Production Designer: Rudy Strong Pt's mom (Mildred) calling to inform Lena Chiu, that Infectious Disease won't see people under 18 years old.(Lena had referred her daughter there) She can be reached at [phone], and you are able to leave a detailed messgae. Created on 25Jun2005 11:13am by CHELO MONTIEL On 25Jun2005 3:00pm LENA CHIU wrote: Dawit Weiner MD is a pediatric MD in [facility]. Phone #[phone]. If she cannot get in with Dr Weiner, then Wolf Bran MD at [facility] [phone]. Acknowledged by LENA CHIU on 3:00pm On 25Jun2005 3:19pm LENA LEE wrote: Pt's mother was called and given the above information. R POST MACHINE OPERATOR documented in this encounter Plan of Treatment Not on filedocumented as of this encounter Visit Diagnoses Not on filedocumented in this encounter Care Teams Senior Pl Sql Developer Relationship Specialty Start Date End Date Brisa Smith PA-C PCP - General 07/30/10 04/18/15 [address] [place] [address] documented as of this encounter
--- OUTSIDE RECORDS SUMMARY | 2022-02-01 07:49 | XMS_ITS | Encounter Summary ---
:1990 Author Organization [facility] Address [address], [place] [address] Care Team Providers Name Role Phone Brisa Smith PA-C Primary Care Provider Reason for Visit Reason Comments Other Encounter Details Date Type Department Care Team Description 06/19/2005 Telephone [facility], Message Other [address] [place] [address] Social History Tobacco Use Types [...] 08/14/10109 Note Time: 06/19/05 1028 Status: Signed Private Equity Analyst: Chelo Álvarez RN (Registered Nurse) Mom, Mildred, calling. Pt.isn't any better. Wants to know what next step is. Pt.has had sore throat that comes and goes, fatigue, body aches for several months, was seen 05/22/05 in . If she exerts herself at all she is wiped out. Was home yesterday from school after being at [place]this weekend. Mom will be at [phone] after 11. Created on 19Jun2005 10:28am by [...] need an appt. Transferred to appt. desk. MAKER HAND documented in this encounter Plan of Treatment Not on filedocumented as of this encounter Visit Diagnoses Not on filedocumented in this encounter Care Teams Examination Scorer Relationship Specialty Start Date End Date Brisa Smith PA-C PCP - General 07/30/10 04/18/15 [address] [place] [address] documented as of this encounter
--- OUTSIDE RECORDS SUMMARY | 2022-02-01 07:49 | XMS_ITS | Encounter Summary ---
:1990 Author Organization [employer] Address [address] [address] Care Team Providers Name Role Phone Unavailable Primary Care Provider Unavailable Encounter Details Date Type Department Care Team Description 11/02/2004 Hospital Encounter MANDAEN CONVERSION Jose Jimenes MD Social History Tobacco [...] likely a ?partially ruptured or leaked ganglion. [facility]/[id number] Dictating DANIEL VICK RADIOLOGIST Narrative 11/02/2004 5:59 [...] a pa rtially ruptured or leaked ganglion. [facility]/[id number] Dictating DANIEL VICK RADIOLOGIST Jose Jimeens MD RAD MRI documented in this encounter Visit Diagnoses Not on filedocumented in this encounter
--- OUTSIDE RECORDS SUMMARY | 2022-02-01 07:50 | XMS_ITS | Clinical Summary ---
:1990 Author Organization [facility] Address [address] [place] [address] Care Team Providers Name Role Phone No Ref-Primary, Physician Primary Care Provider [phone] Allergies Active Allergy Reactions Severity Noted [...] Name Priority Date/Time Associated Diagnosis Comme nts [facility] READ SCREENING Routine 12/18/2021 10:02 resultin g Results for this ECHO PENG AM CDT from in vitro proced ure are in fertilization in the results second trimester section. [facility] US COMPREHENSIVE Routine 11/20/2021 11:00 relate d Results for this SINGLE AM CDT condition, antepartum proced ure are in the results section. from Last 3 Months Results [facility] Read Screen Echo Single (12/18/2021 10:02 AM [...] Study Date: 0 12/18/2021 9:18am Pat. NO: [id number] Referring ??MD: SPENCER VILLAGOMEZ Site: [facility] Technician G: Nancie Bailey RD MS : 1990 Age: 31 INDICATION In vitro fertilization METHOD Grayscale imaging, Doppler echocardiogra phy color flow velocity mapping and Doppler echocardiography pulsed wave and or wave with spectral display were used to assess cardiac structures for wilner goode [facility] echocardiogram. View: Sufficient Peng . Number of [...] RVOT view ?normal 3-vessel view ? normal 6-lqljhb-swweugi view ? normal High short axis view [...] Pat. Name:Geovanni SIGALA Date:11/27 9:18am Pat. NO: [id number] MD:JULY ERA NESS [facility]Nancie Bailey RDMS :1990Age:31 INDICATION In vitro fertilization METHOD Grayscale imaging, Doppler echocardiogra phy color flow velocity mapping and Doppler echocardiography pulsed wave and or wave with spectral display were used to assess cardiac structures for wilner mahendraBennys [facility] echocardiogram. View: Sufficient Peng . Number of [...] normal Cardiac size normal (approx. 1/3 of [facility] area) Cardiac Rhythm regular (normal) 4-chamber view normal LVOT view normal RVOT view normal 3-vessel view normal 7-patkql-pznxurn view normal High short axis view normal [...] of the aorta. Juan Luis Chirinos MD [facility] US ORDERABLES [facility] US Comprehensive Single (11/20/2021 11:00 AM CDT) [...] Study Date: 0 11/20/2021 10:05am Pat. NO: [id number] Referring ??: SPENCER VILLAGOMEZ Site: [facility] G: Anitha Love RDMS : 1990 Age: 31 [...] 0 lb 10 ? oz EFW by ?[facility] ([id number]) Head / Face / Neck Biometry: Lead Worker Of Housekeeping And Laundry ? 5.8 ? mm CM ?5.0 ? [...] cava. Inferior vena cava. 3-vessel ? view. 7-vilwty-wrudxmm view. Cardiac position. Cardiac size. Cardiac rhythm. [...] have scheduled the patient to return to [facility] in 4 weeks for a echo due [...] Pat. Name:Geovanni SIGALA Date:10/27 10:05am Pat. NO: [id number] MD:July [facility] Sheriff :1990Age:31 INDICATION In Vitro Fertilization [...] 0 lb 10 oz EFW by [facility] ([id number]) Head / Face / Neck Biometry: Lead Worker Of Housekeeping And Laundry 5.8 mm CM 5.0 mm Nasal bone [...] vena cava. Inferior vena cava. 3-vessel view. 8-pgtezu-dzwdysv view. Cardiac po sition. Cardiac size. Cardiac [...] RECOMMENDATION We discussed the findings on today's [facility] rasound with the patient. We have scheduled the patient to return to [facility] in 4 weeks for a echo due [...] No markers for aneuploidy seen. July Benny [facility] US ORDERABLES from Last 3 Months Insurance Payer Benefit Plan / Subscriber ID Effective Dates Phone Addre ss Type Group [facility] [id number] 2019-Present [facility] [address] [address] [place] [address] Care Teams Transmitter Chief Relationship Specialty Start Date End Date No Ref-Primary, Physician PCP - General 11/16/18
--- OUTSIDE RECORDS SUMMARY | 2022-02-01 07:50 | XMS_ITS | Encounter Summary ---
:1990 Author Organization [facility] Address [address] [address] Care Team Providers Name Role Phone Brisa Smith PA-C Primary Care Provider Encounter Details Date Type Department Care Team Description 03/07/2004 Office Visit [facility] Isidro Cheatham MD [facility] [place] [address] Social History Tobacco Use Types Packs/Day Years Used Date Smoking Tobacco: Never Assessed Sex Assigned at Date Recorded Not on file documented as of this encounter Progress Notes Isidro Cheatham - 03/07/2004 12:01 AM CST Progress Notes signed by Isidro Cheatham MD at 03/07/04 3897 Author: Isidro Cheatham MD Service: (none) Author Type: Physician Filed: 08/17/10 0228 Note Time: 03/07/04 0001 Status: Signed Industry Analyst: Isidro Cheatham MD (Physician) [facility] Acute Clinic Visit IMPRESSION: URI Chief [...] filedocumented in this encounter Care Teams Engineering Test Mechanic Relationship Specialty Start Date End Date Brisa Smith PAMimaC PCP - General 07/30/10 04/18/15 [address] [place] [address] documented as of this encounter
--- OUTSIDE RECORDS SUMMARY | 2022-02-01 07:50 | XMS_ITS | Encounter Summary ---
:1990 Author Organization [facility] Address [address] [address] Care Team Providers Name Role Phone Brisa Smith PA-C Primary Care Provider Encounter Details Date Type Department Care Team Description 03/28/2004 Office Visit Ashkan Yan MD [address] [place] [address] [place] [address] [place] [address] [phone] (Wo rk) Social History Tobacco Use Types [...] 0251 Note Time: 03/28/04 0001 Status: Signed Web Site Admin: Ashkan Hernandes MD (Physician) NAME: MINO POSADAS MR: [id number] ACCT: [id number] VISIT: [id number] DICTATING CLINICIAN: ASHKAN HERNANDES MD JOB: [id number] CLINIC PROGRESS NOTE DATE OF VISIT: 03/28/2004 [...] in the future if she broke out. KJM:[id number] C: 03/29/04 11:01 DOCUMENT: [id number] NG SETTER documented in this encounter Plan of Treatment Not on filedocumented as of this encounter Visit Diagnoses Not on filedocumented in this encounter Care Teams Senior Formulation Scientist Relationship Specialty Start Date End Date Brisa Smith PA-C PCP - General 07/30/10 04/18/15 [address] [place] [address] documented as of this encounter
--- OUTSIDE RECORDS SUMMARY | 2022-02-01 07:50 | XMS_ITS | Encounter Summary ---
:1990 Author Organization [facility] Address [address] [address] Care Team Providers Name Role Phone Brisa Smith PA-C Primary Care Provider Reason for Visit Reason Comments Other Encounter Details Date Type Department Care Team Description 03/27/2004 Telephone [facility] Chelo Álvarez Other [address] [place] [address] Social History Tobacco Use Types Packs/Day Years Used Date Smoking Tobacco: Never Assessed Sex Assigned at Date Recorded Not on file documented as of this encounter Progress Notes Chelo Álvarez - 03/27/2004 4:36 PM CST Phone Note filed by Chelo Álvarez RN at 08/13/10 1523 Author: Chelo Álvarez RN Service: (none) Author Type: (none) Filed: 08/13/10 1525 Note Time: 03/27/04 1636 Status: Signed Blower Operator: Chelo Álvarez RN (Registered Nurse) Pt.has rash [...] on filedocumented in this encounter Care Teams Scrap Yard Worker Relationship Specialty Start Date End Date Brisa Smith PA-C PCP - General 07/30/10 04/18/15 [address] [place] [address] documented as of this encounter
--- OUTSIDE RECORDS SUMMARY | 2022-02-01 07:50 | XMS_ITS | Encounter Summary ---
:1990 Author Organization [facility] Address [address] [address] Care Team Providers Name Role Phone Brisa Smith PA-C Primary Care Provider Encounter Details Date Type Department Care Team Description 08/29/2004 PN Conversion Only Mary Larkin, [address] [place] [address] [address] [place], [place] [phone] (Wo rk) Social History Tobacco Use Types [...] Strep Follow up Culture @ ? Collected: ??[id number] ??[id number] Source: Throat ?Processed: ??[id number] ??1121 Final Report ------ ?[id number] ??1013 No beta hemolytic Strep group A isolated . @ = Rapid F/U Cult Performed at ??[address] [place] ?[address] Specimen (Source) Anatomical Collection Method Collection Time Re ceived Time Location / / Volume Laterality 08/29/2004 11:21 AM CDT Mary Hernandes MD LAB_1 Performing Organization Address City/[facility]/ZIP Code Phon e Number HP CONVERSION (ABNORMAL) Complete Blood Count-W/Diff (08/29/2004 11:01 AM CDT) [facility] gist Method Time Signature White [...] - HP CONVERSION Hemoglobin Conc 36.5 gm/dL [place] RDW 12.8 11.0 - HP CONVERSION 15.0 [...] CONVERSION Mononucleosis Screen (08/29/2004 11:01 AM CDT) [facility] gist Method Time Signature Infectious Negative Negative HP CONVERSION Mononucleosis Screen Specimen (Source) Anatomical Collection Method Collection Time Re ceived Time Location / / Volume Laterality 08/29/2004 11:01 AM CDT Mary Hernandes MD LAB_1 Performing Organization Address City/State/ZIP Code Phon e Number HP CONVERSION documented in this encounter Visit Diagnoses Not on filedocumented in this encounter Care Teams Interior Design Consultant Relationship Specialty Start Date End Date Brisa Smith PA-C PCP - General 07/30/10 04/18/15 [address] [place] [address] documented as of this encounter
--- OUTSIDE RECORDS SUMMARY | 2022-02-01 07:50 | XMS_ITS | Encounter Summary ---
:1990 Author Organization [facility] [employer] [facility] Address [address] [address] Care Team Providers Name Role Phone Brisa Smith PA-C Primary Care Provider Encounter Details Date Type Department Care Team Description 06/30/2003 PN Conversion Only HELENARahat Grajeda PA-C [address] [place] [address] [place] [address] (Wo rk) Social History Tobacco Use Types Packs/Day Years Used Date Smoking Tobacco: Never Assessed Sex Assigned at Date Recorded Not on file documented as of this encounter Plan of Treatment Not on filedocumented as of this encounter Procedures Procedure Name Priority Date/Time Associated Diagnosis Comme nts COMPLETE BLOOD Routine 06/30/2003 8:43 AM Results for this COUNT-NO DIFF CUPOLA TENDER HELPER procedure are in the results section. documented in this encounter Results (ABNORMAL) Complete Blood Count-No Diff (06/30/2003 8:43 AM CUPOLA TENDER HELPER) [facility] Method Time Signature White Blood Cell [...] 32.0 - HP CONVERSION Hemoglobin Conc 36.5 [place] gm/dL RDW 12.7 11.0 - HP CONVERSION 15.0 % Platelet Count 232 150 - 450 HP CONVERSION k/cmm Specimen (Source) Anatomical Collection Method Collection Time Re ceived Time Location / / Volume Laterality 06/30/2003 8:43 AM CUPOLA TENDER HELPER Rahat Mix PA-C LAB_1 Performing Organization Address City/State/ZIP Code Phon e Number HP CONVERSION documented in this encounter Visit Diagnoses Not on filedocumented in this encounter Care Teams Records Tech Relationship Specialty Start Date End Date Brisa Smith PA-C PCP - General 07/30/10 04/18/15 [address] [place] [address] documented as of this encounter
--- OUTSIDE RECORDS SUMMARY | 2022-02-01 07:50 | XMS_ITS | Encounter Summary ---
:1990 Author Organization [employer] [employer] Address [address] [address] Care Team Providers Name Role Phone Brisa Smith PA-C Primary Care Provider Reason for Visit Reason Comments Other Encounter Details Date Type Department Care Team Description 04/10/2004 Telephone [facility] Brittany Turner Other [address] [place] [address] Social History Tobacco Use Types Packs/Day Years Used Date Smoking Tobacco: Never Assessed Sex Assigned at Date Recorded Not on file documented as of this encounter Progress Notes Center, Message - 04/10/2004 4:30 PM CST Phone Note filed by Masher[employer] at 08/13/10 4719 Author: Mashery Service: (none) Author Type: (none) Filed: 08/13/104 Note Time: 04/10/04 1630 Status: Signed School Traffic Supervisor: Message ALOSKO Hellen's mom is calling with test results from a rash on her face. She sees Dr.Kathleen Metz Please call.#[phone] Created on 10Apr2004 4:30pm by GRISELDA BAKER On 10Apr2004 4:47pm BRITTANY TURNER wrote: 2nd message, 1st message addressed and sent to Dr. Hernandes Acknowledged by BRITTANY TURNER on 7:54am documented in this encounter Plan of Treatment Not on filedocumented as of this encounter Visit Diagnoses Not on filedocumented in this encounter Care Teams Outsole Paraffiner Relationship Specialty Start Date End Date Brisa Smith PA-C PCP - General 07/30/10 04/18/15 [address] [place] [address] documented as of this encounter
--- OUTSIDE RECORDS SUMMARY | 2022-02-01 07:50 | XMS_ITS | Encounter Summary ---
:1990 Author Organization [employer] Address [address] [address] Care Team Providers Name Role Phone Brisa Smith PA-C Primary Care Provider Reason for Visit Reason Comments Other Encounter Details Date Type Department Care Team Description 10/22/2004 Telephone [facility] Isabel Garnica RN Other [address] [place] [address] Social History Tobacco Use Types [...] Filed: 08/13/101901 Note Time: 10/22/04703 Status: Signed [employer] Author: Isabel Oropeza RN (Registered Nurse) Phone Care Triage Note IMPRESSION: Wrist pain SYMPTOMS: Injured right hand yesterday playing soccer. dad on field recommended she get an xray. Top of hand is sore, unable to training program manager. Mildly painful, no swelling. PATIENT INFORMATION: Problem [...] Created on 22Oct2004 7:04am by ISABEL OROPEZA CTOR COST documented in this encounter Plan of Treatment Not on filedocumented as of this encounter Visit Diagnoses Not on filedocumented in this encounter Care Teams Oil Well Services Supervisor Relationship Specialty Start Date End Date Brisa Smith PA-C PCP - General 07/30/10 04/18/15 [address] [place] [address] documented as of this encounter
--- OUTSIDE RECORDS SUMMARY | 2022-02-01 07:50 | XMS_ITS | Encounter Summary ---
:1990 Author Organization [facility] Address [address], [place] [address] Care Team Providers Name Role Phone Brisa Smith PA-C Primary Care Provider Encounter Details Date Type Department Care Team Description 05/10/2004 PN Conversion Only [place] CONVERSION Ralph, [address] A, PAINTING MACHINE OPERATOR, [place]YMENT [place] [address] [address] [place] [phone] (Wo rk) Social History Tobacco Use Types Packs/Day Years Used Date Smoking Tobacco: Never Assessed Sex Assigned at Date Recorded Not on file documented as of this encounter Plan of Treatment Not on filedocumented as of this encounter Procedures Procedure Name Priority Date/Time Associated Comments Diagnosis BORDETELLA PERTUSSIS / Routine 05/10/2004 10:26 R esults for this PARAPERTUSSIS AM ELECTROLYSIS ENGINEER procedure are in [facility]SAL the results section. documented in this encounter Results Bordetella Pertussis And Para Pcr (05/10/2004 10:26 AM ELECTROLYSIS ENGINEER) [facility] Method Time Signature Specimen Source NASAL [...] performed pursuant to an ag reement with [employer] The performance characteristics of this test were validated by [employer]. The U.S. Food and Drug Administration (FDA) has not ap proved this test. The results are not intended to be used as the sole means for clinical diagnosis or pat ient management decisions. [employer] is authorized under [facility] Laboratory Improvement Amendments (CLIA) and by all [...] / / Volume Laterality 05/10/2004 10:26 AM ELECTROLYSIS ENGINEER Lillian Rosas APRN, PAYMENT PROCESSOR LAB_1 Performing Organization Address City/State/ZIP Code Phon e Number HP CONVERSION documented in this encounter Visit Diagnoses Not on filedocumented in this encounter Care Teams Body Shop Supervisor Relationship Specialty Start Date End Date Brisa Smith PA-C PCP - General 07/30/10 04/18/15 [address] [place] [address] documented as of this encounter
--- OUTSIDE RECORDS SUMMARY | 2022-02-01 07:50 | XMS_ITS | Encounter Summary ---
:1990 Author Organization [facility] Address [address], [place] [address] Care Team Providers Name Role Phone Brisa Smith PA-C Primary Care Provider Encounter Details Date Type Department Care Team Description 08/17/2002 PN Conversion Only [place] CONVERSION Ralph, [address] APRN, W[place] [address] [address] [place] [address] (Wo rk) Social History Tobacco [...] 11:05 AM CDT) Analysis Performed At [facility] Time Signature Strep Group A Negative Negative HP CONVERSION Antigen Test Comment: Culture to follow. Specimen (Source) Anatomical Collection Method Collection Time Re ceived Time Location / / Volume Laterality 08/17/2002 11:05 AM CDT Lillian Rosas APRN, WELDER PRODUCTION LINE GAS LAB_1 Performing Organization Address City/State/ZIP Code Phon e Number HP CONVERSION Beta Strep Followup (08/17/2002 11:05 AM CDT) P athologist Signature Strep Screen SEE TEXT HP CONVERSION Comment: Patient: MINO POSADAS Rapid Strep Follow up Culture @ ? Collected: ??[id number] ??[id number] Source: Throat ?Processed: ??[id number] ??[id number] ? G Final Report ------ ?[id number] ??[id number] No beta hemolytic Strep group A isolated . @ = Rapid F/U Cult Performed at ??[address] [place], [place] ?[address] Specimen (Source) Anatomical Collection Method Collection Time Re ceived Time Location / / Volume Laterality 08/17/2002 11:05 AM CDT Lillian Rosas APRN, WELDER PRODUCTION LINE GAS LAB_1 Performing Organization Address City/State/ZIP Code Phon e Number HP CONVERSION documented in this encounter Visit Diagnoses Not on filedocumented in this encounter Care Teams Ladle Watcher Relationship Specialty Start Date End Date Brisa Smith PA-C PCP - General 07/30/10 04/18/15 [address] [place], [place] [address] documented as of this encounter
--- OUTSIDE RECORDS SUMMARY | 2022-02-01 07:50 | XMS_ITS | Encounter Summary ---
:1990 Author Organization [facility] Address [address], [place] [address] Care Team Providers Name Role Phone Brisa Smith PA-C Primary Care Provider Encounter Details Date Type Department Care Team Description 01/23/2004 PN Conversion Only [place] Rita Hammond, [address] [address] [address] [place], [place] [id number] (Wo rk) Social History Tobacco Use Types [...] Strep Follow up Culture @ ? Collected: ??[id number] ??[id number] Source: Throat ?Processed: ??[id number] ??[id number] Final Report ------ ?[id number] ??0910 No beta hemolytic Strep group A isolated . @ = Rapid F/U Cult Performed at [address] [place] [place], [place] ?[address] Specimen (Source) Anatomical Collection Method Collection Time Re ceived Time Location / / Volume Laterality 01/23/2004 3:28 PM CDT Rita Carlisle MD LAB_1 Performing Organization Address City/State/ZIP Code Phon e Number HP CONVERSION documented in this encounter Visit Diagnoses Not on filedocumented in this encounter Care Teams Welt Butter Hand Relationship Specialty Start Date End Date Brisa Smith PA-C PCP - General 07/30/10 04/18/15 [address] [place] [address] documented as of this encounter
--- OUTSIDE RECORDS SUMMARY | 2022-02-01 07:50 | XMS_ITS | Encounter Summary ---
:1990 Author [facility] Address [address] [address] Care Team Providers Name Role Phone Brisa Smith PA-C Primary Care Provider Encounter Details Date Type Department Care Team Description 10/12/2003 PN Conversion Only [facility] Ralph, [address] Lillian Stern APRN, [place] [address] [address] [phone] [place] [id number] (Wo rk) Social History Tobacco Use Types Packs/Day Years Used Date Smoking Tobacco: Never Assessed Sex Assigned at Date Recorded Not on file documented as of this encounter Progress Notes Lillian Rosas APRN, CNP - 10/12/2003 12:01 AM CDT H&P signed by Lillian Rosas APRN, CNP at 10/18/03 1223 Author: JOVANNA Antonio Service: (none) Author Type: Nurse Practitioner Filed: 08/16/10 9196 Note Time: 10/12/03 0001 Status: Signed Industrial Organization Manager: JOVANNA Antonio (Nurse Practitioner) NAME: MINO POSADAS MR: [id number] ACCT: [id number] VISIT: [id number] DICTATING CLINICIAN: JOVANNA ANTONIO JOB: [id number] CLINIC PHYSICAL DATE OF VISIT: 10/12/2003 SUBJECTIVE: [...] sunscreen. Next routine exam in three years. EAC:[id number] C: 10/12/03 17:48 DOCUMENT: [id number] documented in this encounter Plan of Treatment Not on filedocumented as of this encounter Visit Diagnoses Not on filedocumented in this encounter Care Teams Director Of Strategy & Mobile Relationship Specialty Start Date End Date Brisa Smith PA-C PCP - General 07/30/10 04/18/15 [address] [place] [address] documented as of this encounter
--- OUTSIDE RECORDS SUMMARY | 2022-02-01 07:50 | XMS_ITS | Encounter Summary ---
:1990 Author Organization [employer] [facility] [employer] Address [address], [place] [address] Care Team Providers Name Role Phone Brisa Smith PA-C Primary Care Provider Reason for Visit Reason Comments Other Encounter Details Date Type Department Care Team Description 05/14/2004 Telephone [facility], Message Other [address] [place] [address] Social History Tobacco Use Types Packs/Day Years Used Date Smoking Tobacco: Never Assessed Sex Assigned at Date Recorded Not on file documented as of this encounter Progress Notes Center, Message - 05/14/2004 2:07 PM CST Phone Note filed by [employer] at 08/13/10 1610 Author: [employer] Service: (none) Author Type: (none) Filed: 08/13/10 1610 Note Time: 05/14/04 1407 Status: Signed Nurse Practitioner: [employer] MESSAGE TO CARE TEAM NAME OF CALLER:Mildred (mom) NAME OF CLINICIAN:Lillian Gaspar NP MESSAGE:Mildred is calling for test results for Hellen, please call to discuss. She also would like the results for Xander's (her son) test results as well. PHARMACY NAME: PHARMACY PHONE #: CALL BACK PHONE #:[phone] (home) BEST TIME TO CALL BACK:anytime Is it OK to leave detailed message on voicemail?yes Created on 14May2004 2:07pm by CHRISTINA NGUYEN On 14May2004 3:18pm ABHAY PHILIPPE wrote: No pertussis. Acknowledged by ABHYA PHILIPPE on 3:18pm On 14May2004 3:27pm ROLLY WOODARD wrote: Mom was notified of the results. documented in this encounter Plan of Treatment Not on filedocumented as of this encounter Visit Diagnoses Not on filedocumented in this encounter Care Teams Payroll Coordinator Relationship Specialty Start Date End Date Brisa Smith PA-C PCP - General 07/30/10 04/18/15 [address] [place] [address] documented as of this encounter
--- OUTSIDE RECORDS SUMMARY | 2022-02-01 07:50 | XMS_ITS | Encounter Summary ---
:1990 Author Organization [email or web address] Address [address] [address] Care Team Providers Name Role Phone Brisa Smith PA-C Primary Care Provider Encounter Details Date Type Department Care Team Description [facility]/04/2004 [facility] REGIONAL ENGAGEMENT CONSULTANT [address] [place] [address] [phone] (Wo rk) Social History Tobacco Use Types Packs/Day Years Used Date Smoking Tobacco: Never Assessed Sex Assigned at Date Recorded Not on file documented as of this encounter Progress Lena Garrison - 01/04/2004 12:01 AM CDT Progress Notes signed by KIMBERLY Guerrier at 02/16/04 192 Author: KIMBERLY Guerrier Service: (none) Author Type: Nurse Practitioner Filed: 08/17/10 0118 Note Time: 01/04/04 0001 Status: Signed Transition Advisor: KIMBERLY Guerrier (Nurse Practitioner) NAME: MINO POSADAS MR: [id number] ACCT: [id number] VISIT: [id number] DICTATING CLINICIAN: LENA CHIU NP JOB: [id number] CLINIC PROGRESS NOTE DATE OF VISIT: 01/04/2004 SUBJECTIVE: CHIEF COMPLAINT: A 13-year-old female presents for follow up cough diagnosed with pneumonia at [facility] 12/27/03. Just finished a [employer]. Initially felt better, now states symptoms have worsened. Has felt feverish this morning. Disrupted sleep secondary to the cough. [place] short of breath with some chest tightness [...] reviewed. Chest x-ray negative on 12/28/03 through [facility]. Mino is otherwise in good health. 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 She did attend school last week despite [...] Cough with bronchospasm, recent diagnosis of pneumonia. ALK:[id number] C: 01/05/04 08:57 DOCUMENT: [id number] documented in this encounter Plan of Treatment Not on filedocumented as of this encounter Visit Diagnoses Not on filedocumented in this encounter Care Teams V/Stol Landing Signal Officer Relationship Specialty Start Date End Date Brisa Smith PA-C PCP - General 07/30/10 04/18/15 [address] [place] [address] documented as of this encounter
--- OUTSIDE RECORDS SUMMARY | 2022-02-01 07:50 | XMS_ITS | Encounter Summary ---
:1990 Author Organization [facility] Address [address] [place] [address] Care Team Providers Name Role Phone Brisa Smith PA-C Primary Care Provider Encounter Details Date Type Department Care Team Description 08/15/2003 PN Conversion Only [place] [facility] [place], [address] [facility] [place] [address] [address] [facility] [phone] [place] [address] (Wo rk) Social History Tobacco Use Types Packs/Day Years Used Date Smoking Tobacco: Never Assessed Sex Assigned at Date Recorded Not on file documented as of this encounter Progress Notes Veronique Clemons MD - 08/15/2003 12:01 AM CDT Progress Notes signed by Veronique Clemons MD at 12/17/03 1025 Author: Veronique Clemons MD Service: (none) Author Type: Physician Filed: 08/16/10 2556 Note Time: 08/15/03 0001 Status: Signed Clip Baker: Veronique Clemons MD (Physician) NAME: MINO CLEMENTE MR: [id number] ACCT: [id number] VISIT: [id number] DICTATING CLINICIAN: VERONIQUE CLEMONS MD JOB: [id number] CLINIC PROGRESS NOTE DATE OF VISIT: 08/15/2003 ASSESSMENT: 1. Ankle sprain. 2. Numbness of unclear etiology. PLAN: Patient was made weightbearing as tolerated. I want her to work on range of motion at home. I did send her for an EMG which will be next week. I will see her back after the EMG. She can return sooner with any acute problems. SUBJECTIVE: This is a 12-year-old female who injured her ankle two days ago. This is the third time she has been seen since then. She has been essentially every day. She complains of pain and numbness over the medial aspect of her foot. She has injured herself similarly in the past and has never had these types of problems. It is quite uncomfortable for her. She is very concerned. She has already had x-rays of her foot and ankle which she has been told are negative. REVIEW OF SYSTEMS: Positive for a low grade fever of 99.4 in the ER. She has not had a rash. She does feel like there is numbness and tingling. When asked to point to specifically where this is she points over the medial aspect of her foot but says that it is generally everywhere in her foot and lower leg. PAST MEDICAL HISTORY: Negative for diabetes, stomach problems or other joint problems. She does not smoke. She is very active including playing soccer, running, and playing volleyball. MEDICATIONS: None. ADR/ALLERGIES: PENICILLIN AND SULFA. PREVIOUS SURGERY: Tonsillectomy. OBJECTIVE: GENERAL: No acute distress. Cooperative healthy appearing female. She is nonweightbearing. Inspection of both legs no deformities or signs of trauma. Skin inspection there is no rash. Evaluation of the left leg no deformities or signs of trauma. Full range of motion, no tenderness. Evaluation of the right ankle she is able to actively dorsiflex and plantar flex with the toes and foot. She does dorsiflex slowly but she is able to do this with palpation. There is tenderness generally everywhere on her ankle and foot. This is not particularly localized and when I do two point discrimination on her foot she says that she just does not feel it. When I do two point discrimination on her lower leg it is extremely poor when compared to the left measuring about three to four centimeters. Her calf was soft. Pulses are strong. There is no sign of compartment syndrome. X-ray of her lower leg was negative. [id number] C: 08/17/03 09:01 DOCUMENT: [id number] Phone Note, Clinician - 08/14/2003 12:01 AM CDT Phone Note filed by Clinician Phone Note at 08/14/10 1356 Author: Clinician Phone Note Service: (none) Author Type: Resource Filed: 08/14/10 1351 Note Time: 08/14/03 0001 Status: Signed Clip Baker: Clinician Phone Note (Resource) - REFERRED PATIENT TO EMERGENCY ROOM * HOME PHONE:[phone] * SUBJECTIVE: PATIENT COMPLAINS OF... Limb and/or joint trauma, -Symptoms of possible circulatory or nerve damage Mom calling says pt. injured her right ankle while playing soccer yesterday and was seen in ER and told ankle wasn't broken. Calling tonight as area is significantly swollen and painful, unable to bear any weight on foot and now c/o numbness in her ankle up to her mosher. ALLERGIES/SENSITIVITIES... Sulfa - rash, PCN - hives CURRENT MEDICATIONS... PERTINENT PAST HISTORY... Healthy; ASSESSMENT: Limb,joint/muscle trauma-(child)-triage guideline DISPOSITION: EMERGENCY OMITTED ASKING ABOUT . OMITTED ASKING ABOUT NURSING. PLAN: RECOMMENDED THE FOLLOWING... Referenced guideline Limb,joint/muscle trauma-(child)-triage guideline. Instruct caregiver to take child to ER. Assure patient safety Discourage eating or drinking until evaluated by provider. Patient information given per Limb, Joint, and Muscle Trauma guideline. Verbalizes understanding and agrees with phone care recommendation INFORMED PATIENT TO CALLBACK IF... Reasons to call back reviewed- caller verbalizes understanding of the need to call back for the following reasons: -Any other questions or concerns MISC COMMENTS... Mom will take pt. to [facility] in [place]. CALL BY GHISLAINE THOMPSON RN 08/14/2003 08:14PM [phone] ADDENDUM: Roxanne Flores MD - 08/10/2003 12:01 AM CDT Progress Notes signed by Roxanne Flores MD at 02/07/04 1052 Author: Roxanne Flores MD Service: (none) Author Type: Physician Filed: 08/16/10 2248 Note Time: 08/10/032229 Status: Signed Clip Baker: Roxanne Flores MD (Physician) NAME: MINO CLEMENTE MR: [id number] ACCT: [id number] VISIT: [id number] DICTATING CLINICIAN: ROXANNE FLORES MD JOB: [id number] CLINIC PROGRESS NOTE DATE OF VISIT: 08/10/2003 ASSESSMENT: Sprain, right index finger. PLAN: Symptomatic treatment advised. Patient prefers to have a splint for comfort. A palmar short splint was applied. Should have a follow up with primary MD if no improvement of her symptoms. SUBJECTIVE: A 12-year-old female injured her right index finger while playing soccer two days ago. Apparently she kicked her own finger while she was playing. The finger has become swollen and painful. No other symptoms. PAST MEDICAL HISTORY: Tonsillectomy. MEDICATIONS: None. ADR/ALLERGIES: SULFA, PENICILLIN. OBJECTIVE: VS: T: Afebrile. P: 60. R: 14. Examination of the right index finger shows swelling all over base of the finger. She is tender over MCP and PIP and over proximal phalanx. No ecchymosis noted. Range of motion of the joints are normal. Active range of motion of the joints is normal. X-ray of the finger ordered and read by me looks normal. [id number] C: 08/10/03 20:16 DOCUMENT: [id number] Rahat Mix PA-C - 06/30/2003 12:01 AM CST Progress Notes signed by Rahat Mix PA-C at 07/01/03 0901 Author: Rahat Mix PA-C Service: (none) Author Type: Physician Technical Services Librarian Filed: 08/16/10 2205 Note Time: 06/30/032229 Status: Signed Clip Baker: Rahat Mix PA-C (Physician Technical Services Librarian) NAME: MINO CLEMENTE MR: [id number] ACCT: [id number] VISIT: [id number] DICTATING CLINICIAN: SEAMUS MENDIETA JOB: [id number] CLINIC PROGRESS NOTE DATE OF VISIT: 06/30/2003 ASSESSMENT: Left hip pain, no evidence for septic joint. PLAN: Advised symptomatic treatments using ibuprofen, two to three tablets p.o. t.i.d. with food. Ulcer precautions given. Heat alternating with ice and avoidance of high impact physical activities. Certainly if symptoms worsen or persist beyond the next five to seven days, would reevaluate. FINAL IMPRESSION: Left hip pain, no evidence for septic joint. SUBJECTIVE: This 12-year-old is brought today by her mom for evaluation of left lateral hip pain for the last three days. Symptoms started suddenly while she was resting at home from school, feeling nauseated. At the time, she had no other symptoms and did not vomit. Since that time, the nausea has resolved completely, but the hip pain has persisted. She finds it painful to sit for long periods of time, as well as to bear weight. She denies any sore throat or fevers. She has had no rashes. No back pain. No stiffness in the hip. No numbness, tingling or loss of strength in the lower extremity. She has noticed no swelling, no redness around the hip area. She is active. She plays soccer, but the last time that she played was over a week ago and she denies any injuries. She has tried ice and took two tablets of Advil yesterday and she visited the chiropractor yesterday. Her chiropractor was quite concerned and suggested that she be seen. Apparently was most concerned over possible joint infection. Apparently did x-rays and were told they looked all right. No other treatments tried. She has never had any previous problems with the hip. CURRENT MEDICATIONS: None. ADR/ALLERGIES: TO SULFA, CAUSING RASH, AND PENICILLIN. TOBACCO USE: None. OBJECTIVE: VS: BP: 110/58. T: 98.7. Wt: 132.2 lb. Pleasant. She does not appear in any distress. She is limping when she walks. She points to the lateral hip as the area of her pain. She is tender directly over the greater trochanter. She has pain with flexion and extension at the hip. Pain with external rotation. Pain remains localized and never radiates toward the groin. X-ray exam reveals no bony abnormalities by my reading. White count shows WBCs a little low at 4.1, hemoglobin normal, 14.9. [id number] C: 07/01/03 00:36 DOCUMENT: [id number] TER SPRAY Phone Note, Clinician - 08/18/2002 12:01 AM CDT Phone Note filed by Clinician Phone Note at 08/14/102 Author: Clinician Phone Note Service: (none) Author Type: Resource Filed: 08/14/10 1108 Note Time: 08/18/02 0001 Status: Signed Clip Baker: Clinician Phone Note (Resource) TO: LILLIAN HARKINS FROM: JOANN GONZALEZ RN [phone] * PROVIDER MESSAGE: TOMEKA * 08/18/02 01:07PM * *WITHIN 2 HOURS * MESSAGE: Pt's mother (Kalyani Clemente) * HOME PHONE:[phone] * calling: Pt's sister Zaria was seen * CONTACT PHONE:[phone] * by Lillian Harkins, RN, SPECIAL SYSTEMS TECHNICIAN * Eileen Clemente - pt's * yesterday for an U/C follow up to * mother * some conjuctivitis. Today, pt started developing similar sx. However, pt c/o pain in her OS which disallows treatment over the telephone via standing orders. Made an appt for pt to see NELI this afternoon, but pt's mother was wondering if NELI would be willing to treat this over the telephone after seeing pt's sister yesterday. Please call pt's mother and advise. SUBJECTIVE: ALLERGIES/SENSITIVITIES... Sulfa - rash, PCN - hives 08/18/02 CURRENT MEDICATIONS... No regular medications; 08/18/02 PERTINENT PAST HISTORY... Healthy; 08/18/02 WEIGHT: 125 PATIENT IS NOT . PATIENT IS NOT NURSING. ASSESSMENT: Eye Pain PLAN: DISPOSITION: NO DISPOSITION GIVEN CALL BY JOANN GONZALEZ RN 08/18/2002 01:02PM [phone] ADDENDUM: <> 08/18/2002 01:35PM by STEVEN VELEZ: Lillian Gaspar CNP advised to keep appointment. Lillian Harkins APRN, CNP - 08/18/2002 12:01 AM CDT Progress Notes signed by Lillian Hrakins APRN, CNP at 08/24/02 0803 Author: JOVANNA Gagnon Service: (none) Author Type: Nurse Practitioner Filed: 08/16/10 1438 Note Time: 08/18/02 0001 Status: Signed Clip Baker: JOVANNA Gagnon (Nurse Practitioner) NAME: MINO CLEMENTE MR: [id number] ACCT: [id number] VISIT: [id number] DICTATING CLINICIAN: JOVANNA GAGNON JOB: [id number] CLINIC PROGRESS NOTE DATE OF VISIT: 08/18/2002 SUBJECTIVE: Mino is a 11-year-old with left conjunctivitis. Her symptoms started this morning when she woke with a red, itchy, left eye. Mom called mid-morning saying that the eye was quite swollen, and because of that we had her seen in the clinic. Mino also says that not only is it itchy, but sometimes it is painful. Mino was just here yesterday with viral symptoms of illness. Her little sister has had bilateral conjunctivitis that has been treated for the past six days. Mino has been doing some of her drops. She does not wear contacts. No history of trauma or injury. She is afebrile. ADR/ALLERGIES: SULFA AND PENICILLIN. OBJECTIVE: Mino is nicely comfortable and in no apparent pain. Her left bulbar conjunctiva is moderately injected with matter floating on the conjunctivae and also collecting in the inner canthus. The upper lid is slightly puffy, but there is not significant erythema of the periorbital space. She tracks well to four quadrants. The right eye is completely clear. Ears clear. Nose patent. Pharynx clear. NECK: Supple. ASSESSMENT: Left conjunctivitis. PLAN: Polytrim ophthalmic drops 1-2 drops to the left eye q.3h. today then can go to three times a day tomorrow. Will use for 5-7 days or until clear for two consecutive mornings. TT: CT: [id number] C: 08/20/02 10:47 DOCUMENT: [id number] Lillian Harkins APRN, CNP - 08/17/2002 12:01 AM CDT Progress Notes signed by Lillian Harkins APRN, CNP at 08/24/02 0802 Author: JOVANNA Gagnon Service: (none) Author Type: Nurse Practitioner Filed: 08/16/10 1436 Note Time: 08/17/02 0001 Status: Signed Clip Baker: JOVANNA Gagnon (Nurse Practitioner) NAME: MINO CLEMENTE MR: [id number] ACCT: [id number] VISIT: [id number] DICTATING CLINICIAN: JOVANNA GAGNON JOB: [id number] CLINIC PROGRESS NOTE DATE OF VISIT: 08/17/2002 SUBJECTIVE: Mino is in today with a sore throat that developed just yesterday afternoon during soccer and she also has a headache and a stomachache. She slept okay last night. Has not had a fever. No URI symptoms. History significant for being exposed to an aunt who has a fever of unknown origin. She was admitted to the hospital last week for five days and discharged over the weekend. Mino was exposed to her and the aunt evidently is still having persistent fevers. ADR/ALLERGIES: SULFA AND PENICILLIN. OBJECTIVE: VS: T: 98.3. Wt: 129 lb. Mino looks well. Eyes clear. Both eardrums clear, shiny, nose patent. Tonsils are absent. Pharynx is clear without injection. NECK: Supple. LUNGS: Clear, equal. No nuchal rigidity. ASSESSMENT: Pharyngitis. PLAN: RST negative. Will treat per protocol if positive. Symptomatic management, observation and follow up p.r.n. TT: CT: [id number] C: 08/18/02 10:36 DOCUMENT: [id number] Phone Note, Clinician - 06/30/2002 12:01 AM CST Phone Note filed by Clinician Phone Note at 08/14/10 1047 Author: Clinician Phone Note Service: (none) Author Type: Resource Filed: 08/14/10 1047 Note Time: 06/30/02 0001 Status: Signed Clip Baker: Clinician Phone Note (Resource) TO: RANJITH VALENZUELA FROM: FAZAL MORA RN [phone] * PROVIDER MESSAGE: ROUTINE * 06/30/02 12:23PM * *WITHIN 4 HOURS * MESSAGE: Patient was seen by * HOME PHONE:[phone] * [place]en this morning for right * CONTACT PHONE:[phone] * ankle sprain. Per mother, was * Mom (Jyoti) if questions * advised to limit physical activity for 7-10 days, with minimal weight bearing. In order for her to be excused from phy-ed, the school is requiring note from . Please write note and fax to [employer] at [phone]. Attn: Jeanette. Aware that Dr. Valenzuela was only in clinic this AM, so would like partner to write note. Call mom if any problem with doing this. SUBJECTIVE: ALLERGIES/SENSITIVITIES... Sulfa - rash, PCN - hives 10/05/99 not verified on this call 06/30/02 CURRENT MEDICATIONS... not verified on this call 06/30/02 PERTINENT PAST HISTORY... Healthy 10/05/99 06/30/02 WEIGHT: OMITTED ASKING ABOUT . OMITTED ASKING ABOUT NURSING. ASSESSMENT: Note needed PLAN: DISPOSITION: NO DISPOSITION GIVEN CALL BY FAZAL MORA RN 06/30/2002 12:20PM [phone] ADDENDUM: <> 06/30/2002 04:58PM by MAJO MENENDEZ LPN: Note written by Dr Izquierdo regarding physical activity and faxed to school per moms request. Ranjith Gan - 06/30/2002 12:01 AM CST Progress Notes signed by Ranjith Valenzuela MD at 07/23/02 0904 Author: Ranjith Valenzuela MD Service: (none) Author Type: Physician Filed: 08/16/10 1348 Note Time: 06/30/02 0001 Status: Signed Clip Baker: Ranjith Valenzuela MD (Physician) NAME: MINO CLEMENTE MR: [id number] ACCT: [id number] VISIT: [id number] DICTATING CLINICIAN: RANJITH VALENZUELA MD JOB: [id number] CLINIC PROGRESS NOTE DATE OF VISIT: 06/30/2002 SUBJECTIVE: : 1990. . Mino twisted her right ankle seven days ago while skating. It was swollen and painful. She did succeed in going snowboarding two days later, however, and did not reinjure it. It still is painful and she is not liking walking on it. At this point she has used some ice and occasional Motrin. OBJECTIVE: VS: Wt: 122 lb. She has minimal swelling of the right ankle, compared to the left, with pain below the right lateral malleolus. She has full range of motion. The joint itself is not unstable. ASSESSMENT: Right ankle sprain. PLAN: Ice, Motrin, elevation, and pressure. She will resume her normal activities next week. Meanwhile, begin some ankle exercises. TT: CT: [id number] C: 06/30/02 17:41 DOCUMENT: [id number] Lillian Harkins APRN, CNP - 10/15/2001 12:01 AM CDT Progress Notes signed by Lillian Harkins APRN, CNP at 10/28/01 1044 Author: JOVANNA Gagnon Service: (none) Author Type: Nurse Practitioner Filed: 08/16/10 0750 Note Time: 10/15/01 0001 Status: Signed Clip Baker: JOVANNA Gagnon (Nurse Practitioner) IMPRESSION: Healthy 11-year-old. SUBJECTIVE: Mino is in today for a 11-year check. She just finished sixth grade and did very well in school. She participates in soccer, track and volleyball. She also loves to run. Is not running on a regular basis at this time. She plays the [employer] in [employer] She has no current concerns. She eats a very well balanced diet. Has milk and proteins in her diet routinely. She is happy with her current weight and not interested in losing weight. REVIEW OF SYSTEMS: Negative for any vision or hearing problems. She denies headaches or stomachaches. Denies nosebleeds, fainting, dizziness or shortness of breath. No heart palpitations. No skin or joint problems. No problems with sleep or elimination. Her first menses was in July of 2001 and she has had one period since. No questions or problems with that. She is currently in orthodontics that were just placed last Friday. She is good about good dental care. She wears a helmet and seat belt consistently. There are guns in the house, but she indicates they are locked. ADR/ALLERGIES: SULFA AND PENICILLIN. OBJECTIVE: VS/GEN: BP: 108/54. Ht: 65 in. Wt: 109 lb. Mino is a tall, lean girl who is pleasant and nicely groomed. HEENT: Negative. She has orthodontics in place. LUNGS: Clear. CV: Heart tones are normal with no murmur. ABD: Soft, nontender, no masses. : Clear. SKIN: Clear. NEURO: Brisk DTR's. BACK: Straight. ASSESSMENT: Healthy 11-year-old. PLAN: Hep B number on and adult diptheria/tetanus. Return one month for hep B number two and MMR and in six months for hep B number three. Forms were completed without restrictions. Positive reinforcement for healthy lifestyle, safety anticipatory guidance reviewed. Her next check at 14. TT: CT: [id number] C: DOCUMENT: [id number] Mary Stewart MD - 09/11/2001 12:01 AM CDT Progress Notes signed by Mary Stewart MD at 09/14/01 0817 Author: Mary Stewart MD Service: (none) Author Type: Physician Filed: 08/16/10 0704 Note Time: 09/11/01 0001 Status: Signed Clip Baker: Mary Stewart MD (Physician) IMPRESSION: Mild cellulitis near the left third toe. Probable athlete's foot. Wart on the right hand. SUBJECTIVE: Mino is a 11-year-old who comes in having had some dry cracking between her toes for a while. They have been doing some gonp-fnr-xzezhsh treatment for athlete's foot over the last couple of weeks; but, last night, she developed some redness at the base of the left toe on the dorsal surface. She does not know if she had any trauma to the area, but there has developed increasing erythema. Also, she has a wart on her right palm. ADR/ALLERGIES: PENICILLIN AND SULFA. OBJECTIVE: VS/GEN: Wt: 111 lb. She is an alert 11-year-old in no acute distress. She does have a wart on her right palm and then on her toes, between the toes, she has a lot of dry, cracking skin; but, on the dorsum of the foot, at the base of the third toe, she has an abrasion with some surrounding erythema. ASSESSMENT: 1. Mild cellulitis near the left third toe. 2. Probable athlete's foot. 3. Wart on the right hand. PLAN: I recommended they continue with the treatment for the athlete's foot, but if it is not getting better, could try Lamisil over-the counter. I put her on Keflex 250 mg/5mL. Take two teaspoons three times a day for ten days to cover for the skin infection, and they are going to try riqo-qqr-erkcyfh treatment first such as Duofilm for the wart on her right palm. TT: CT: [id number] C: DOCUMENT: [id number] Jessica Kenney MD - 07/25/2001 12:01 AM CST Progress Notes signed by Jessica Kenney MD at 07/27/01 1514 Author: Jessica Kenney MD Service: (none) Author Type: Physician Filed: 08/16/10 0555 Note Time: 07/25/012229 Status: Signed Clip Baker: Jessica Kenney MD (Physician) IMPRESSION: OTITIS MEDIA, PHARYNGITIS SUBJECTIVE: The patient is an 10-year-old female. She comes in with two problems. First of all, she has had some right ear pain and headaches associated with some nausea that really got started last night. She has had a little bit of some mild sore throat, it has not been very much. No vomiting has been noted. She has not had any fevers that have been documented. She was exposed to strep this last week and mom says that she has had a lot of problems with strep infections in the past, less so since she had her tonsillectomy, but she does have a tendency to have quite a lot of infections. OBJECTIVE: VS/GEN: T: 98.2. P: 80. R: 18. HEENT: Tympanic membranes, the right one is red, the left one is normal. She has no sinus tenderness. Throat is mildly reddened. NECK: Mild anterior cervical adenopathy on the right hand side, it is a little bit tender. LUNGS: Clear. ABD: Soft and nontender. A rapid strep test was not done. I elected to just do a 24-hour throat culture on her since it is not going to change what we do with her. She was put on Zithromax in a Z-Torito form to take 2 today and then 1 a day for four days. They will notify her of the culture results as it returns. ASSESSMENT: N/A PLAN: N/A TT: CT: [id number] C: DOCUMENT: [id number] TER SPRAY Mary Stewart MD - 05/22/2001 12:01 AM CST Progress Notes signed by Mary Stewart MD at 05/25/01 0825 Author: Mary Stewart MD Service: (none) Author Type: Physician Filed: 08/16/10 0424 Note Time: 05/22/01 0001 Status: Signed Clip Baker: Mary Stewart MD (Physician) IMPRESSION: Possible pneumonia. SUBJECTIVE: Mino is an 11-1/2-year-old who comes in having had a cough for the last week. She had an initial temp, then seemed to be better, but today it she ran a temp of 100.3. She has had no rhinorrhea. Several family members have had pneumonia. ADR/ALLERGIES: ALLERGIES INCLUDE SULFA AND PENICILLIN. OBJECTIVE: VS/Gen: Wt: 99 lb. She is an alert 11-1/2-year-old in no acute distress. HEENT: Conjunctivae aer clear. TMs clear. Oropharynx clear. NECK: Supple with some anterior cervical lymphadenopathy. LUNGS: Reveal occasional rales in the left posterior lung field. ASSESSMENT: Possible pneumonia. PLAN: Will treat with Zithromax 200 mg per 5 ml, take two teaspoons on the first day, and then one teaspoon once a day for four days, and she should follow up if her symptoms are not improving or if other concerns arise. TT: CT: [id number] C: DOCUMENT: [id number] TER SPRAY Conversion, [facility] - 10/17/1999 12:01 AM CDT Progress Notes signed by at 12/02/00 3896 Author: [facility] Conversion Service: (none) Author Type: (none) Filed: 08/15/10 1738 Note Time: 10/17/99 0001 Status: Signed Clip Baker: Imr Conversion IMPRESSION: Resolving sprain/contusion to the elbow. SUBJECTIVE: Mino Clemente is presenting today for an injury to her left elbow. We felt that this was more of a sprain and contusion rather than an actual fracture. Within the last two weeks she has been doing well with complete use of the elbow without any limitation. OBJECTIVE: On today's examination, she has full range of motion. Normal alignment. No swelling. No palpable tenderness is noted. Pronation and supination, flexion and extension completely full. She has normal neurovascular status. Repeat x-rays taken today demonstrate normal alignment of the humerus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 Healthy , Recurrent Strep Throat last winter, 06/07/98 WEIGHT: 65 ASSESSMENT: sore throat-(child) PLAN: DISPOSITION: HOME CARE RECOMMENDED THE FOLLOWING... Referenced guideline Sore Throat-(Child)-Nurse Guidelines. Schedule appointment on nurses schedule for a strep screen if patient is established. -Give acetaminophen or ibuprofen as directed -Have child use hard candies, ice or cough drops to soothe throat if > age 8 -Encourage liquids: 8-10 regular glasses each day. Juice and water are best. Cool beverages or warm liquids are most soothing. Besides the classic strep symptoms, there are other symptoms that may accompany strep; headache, abdominal pain, scarlatiniform rash, INFORMED PATIENT TO CALLBACK IF... Reasons to call back reviewed- caller verbalizes understanding of the need to call back for the following reasons: -Breathing or swallowing becomes difficult -Sore throat lasts > 1 week without major improvement -Any other questions or concerns Call taken by LITZY DAVID R.N. [phone] 06/07/1998 07:53 PM ADDENDUM: Conversion, [facility] - 05/29/1998 12:01 AM CST Progress Notes signed by at 12/02/002038 Author: [facility]y Conversion Service: (none) Author Type: (none) Filed: 08/15/10 0905 Note Time: 05/29/98 0001 Status: Signed Clip Baker: Rudy Conversion IMPRESSION: Recurrent tonsillitis with moderate adenotonsillar hypertrophy. SUBJECTIVE: Mino is a young 7 year old seen at the request of Dr. Stewart for issues of recurring sore throat. She has been seen on a number of occasions although a relatively small number of these have been strep. She has only modest issues with upper airway obstruction with some degree of snoring and mouth breathing although no definitive apnea. She has significant orthodontic concerns with relative retrognathia. Her symptoms are primarily that of low grade sore throat and GI distress. OBJECTIVE: Today Mino's ears are normal. Her nose is clear and she breathes comfortably through her nose at rest. Her tonsils approach +3 in size. There is no purulence. She has mild reactive adenopathy in the upper neck. ASSESSMENT: Recurrent tonsillitis with moderate adenotonsillar hypertrophy. PLAN: Mino is challenging. Her symptoms are modest and only a small portion of her difficulties are positive for strep, but she has been ill overall this winter. Has been a bit better with little in the way of school absence. We are going to remain observant. If this trend continues, I would move forward with T&A. We have discussed the procedure and his postoperative morbidities at some length. She will contact us if she continues to have infections on a monthly basis, and at that point, I would schedule a time that is convenient for the family. cc: Mary Stewart M.D. [id number] SCHEDULED RESOURCE: BENITA WORTHY MD Conversion, [facility] - 05/03/1998 12:01 AM CST Phone Note signed by at 05/03/98 0952 Author: [facility] Conversion Service: (none) Author Type: (none) Filed: 08/15/10 0837 Note Time: 05/03/982229 Status: Signed Clip Baker: Rudy Conversion IMPRESSION: request call-reading disability TO: MARY STEWART FROM: ORESTES MICHELE LPN [phone] * PROVIDER MESSAGE: ROUTINE * 05/03/1998 09:52AM * *WITHIN 4 HOURS * MESSAGE: request call * HOME PHONE: [phone] * SUBJECTIVE: * CONTACT PHONE: [phone] * CHIEF CONCERN... Patient's mom * Lay-mom after * Lay calling regarding * 12:30pm * reading problem patient is having. Was evaluated at a reading center and prelimenary report- language processing disability. Mother wonders where to go from here. ALLERGIES/SENSITIVITIES... Sulfa 04/26/98 CURRENT MEDICATIONS... Tylenol prn 04/26/98 PERTINENT PAST HISTORY... Healthy , Recurrent Strep Throat last winter, 04/26/98 WEIGHT: Not Available ASSESSMENT: request call-reading disability PLAN: DISPOSITION: NO DISPOSITION GIVEN Call taken by ORESTES MICHELE LPN [phone] 05/03/1998 09:49 AM ADDENDUM: <> 05/03/1998 01:34PM by GRISELDA GIBSON LPN: TALKED WITH MOM THIS AM. PER DR STEWART APPOINTMENT SHOULD BE MADE WITH NIMISHA AT [facility]. Conversion, [facility] - 04/26/1998 12:01 AM CST Phone Note signed by at 04/26/98 0909 Author: [facility]y Conversion Service: (none) Author Type: (none) Filed: 08/15/10 0830 Note Time: 04/26/98 0001 Status: Signed Clip Baker: Rudy Conversion IMPRESSION: Sore Throat-(Child)-Nurse Guidelines TO: MARY STEWART FROM: ISABEL KEVIN, RN [phone] * PROVIDER MESSAGE: ROUTINE * 04/26/1998 09:09AM * *WITHIN 4 HOURS * MESSAGE: Call mother to determine * HOME PHONE: [phone] * treatment plan. (Could a doctor * CONTACT PHONE: [phone] * take care of this this morning? * Eileen, mother * Soria not in until afternoon.) * PHARMACY: [phone] * SUBJECTIVE: * [facility] * CHIEF CONCERN... Sore throat > * [address] * 24 hours without cough or cold, Mother calling. Child c/o sore throat, headache, and stomachache that started yesterday late afternoon. Fever 101. Finished antibiotic for strep throat 10 days ago( 04/15).Mother doesn't remember name of antibioitc child was given; Penicillin? ; -Persistent infection/treatment failure ALLERGIES/SENSITIVITIES... Sulfa 12/30/98 CURRENT MEDICATIONS... Tylenol prn 04/26/98 PERTINENT PAST HISTORY... Healthy , Recurrent Strep Throat last winter, 04/26/98 WEIGHT: 57 ASSESSMENT: sore throat-(child) PLAN: DISPOSITION: SEMI-URGENT RECOMMENDED THE FOLLOWING... Referenced guideline Sore Throat-(Child)-Nurse Guidelines. Send message to provider. Patient information given per Sore Throat nurse guidelines. INFORMED PATIENT TO CALLBACK IF... Reasons to call back reviewed- caller verbalizes understanding of the need to call back for the following reasons: -Breathing or swallowing becomes difficult -Any other questions or concerns Call taken by ISABEL KEVIN RN [phone] 04/26/1998 08:52 AM ADDENDUM: <> 04/26/1998 10:46AM by GRISELDA GIBSON LPN: APPOINTMENT MADE. Mary Stewart MD - 04/26/1998 12:01 AM CST Progress Notes signed by Mary Stewart MD at 05/05/98 1121 Author: Mary Stewart MD Service: (none) Author Type: Physician Filed: 08/15/10829 Note Time: 04/26/98 0001 Status: Signed Clip Baker: Mary Stewart MD (Physician) IMPRESSION: Pharyngitis. SUBJECTIVE: Mino is an 8-1/2-year-old who just finished antibiotics on the for a strep infection and yesterday started with a sore throat. She has had a little headache today with cough and temp up to 101. The cough she has had has been on and off. ADVERSE DRUG REACTIONS: SULFA. OBJECTIVE: Weight: 63 pounds. Temperature: 98.0 tympanically. In general, she is an alert 8-1/2-year-old in no acute distress. Tympanic membranes were clear. Oropharynx was injected. Neck was supple with some precervical lymphadenopathy. Lungs were clear to auscultation. Abdomen was soft and nontender without any hepatosplenomegaly or masses. ASSESSMENT: Pharyngitis. PLAN: Did do a throat culture. If that is positive, we will treat her with a full course of Keflex 250 mg per 5 ml, take 1 tsp 3 x a day for 10 days. In the meantime, I gave her samples of amoxicillin 250 mg chewables that she can take one twice a day. She has had intermittent calf pains at nighttime. I had done a CBC a while ago which was normal except for a little low white count. She has not really been well so as soon as she is better we will repeat her white count. I think it is probably more activity related. nbb TER SPRAY Conversion, [facility] - 04/06/1998 12:01 AM CST Phone Note signed by Mary Stewart MD at 04/10/98 0936 Author: [facility] Conversion Service: (none) Author Type: (none) Filed: 08/15/10 0810 Note Time: 04/06/98 0001 Status: Signed Clip Baker: [facility] Conversion IMPRESSION: Sore Throat-(Child)-Nurse Guidelines - TREATING PROVIDER: MARY STEWART - PHARMACY: [phone] * HOME PHONE: [phone] * SUBJECTIVE: PATIENT COMPLAINS OF... Sore throat, positive culture. Mom calling states a message was left on answering machine states child had a positive strep test, is calling for further instructions, checked previous note from today, also checked MRLL, confirmed positive strep test; ALLERGIES/SENSITIVITIES... Sulfa (hives) 04/06/98 CURRENT MEDICATIONS... Tylenol prn 04/06/98 PERTINENT PAST HISTORY... Healthy 04/06/98 ASSESSMENT: Sore Throat-(Child)-Nurse Guidelines DISPOSITION: HOME CARE WEIGHT: 55 PLAN: STANDING ORDERS IMPLEMENTED... Pen VK:500 mgm bid x 10 days (o) if > or = 50 lbs. RECOMMENDED THE FOLLOWING... Referenced guideline Sore Throat-(Child)-Nurse Guidelines. Nurse to treat per [facility] standing orders. Reviewed information from handout for notifying patient of positive strep screen -Take acetaminophen or ibuprofen as directed -Have child gargle with salt water or ice water -Encourage liquids: 8-10 regular glasses each day. Juice and water are best. Cool beverages or warm liquids are most soothing. -Encourage soft foods or flavored frozen desserts -Encourage extra rest so the body can use it's natural resources to recuperate -Improve room humidity with a cool mist vaporizer Patient information given per Sore Throat nurse guidelines. INFORMED PATIENT TO CALLBACK IF... Reasons to call back reviewed- caller verbalizes understanding of the need to call back for the following reasons: -Breathing or swallowing becomes difficult -If no significant improvement in symptoms after 48 hours of medication -Sore throat lasts > 1 week without major improvement -Any other questions or concerns Call taken by MICHELINE LOCKETT RN [phone] 04/06/1998 07:36 PM ADDENDUM: Conversion, [facility] - 04/06/1998 12:01 AM CST Phone Note signed by at 04/06/98 8503 Author: [facility] Conversion Service: (none) Author Type: (none) Filed: 08/15/10 0810 Note Time: 04/06/98 0001 Status: Signed Clip Baker: [facility]y Strong IMPRESSION: Positive Strep SUBJECTIVE: ALLERGIES/SENSITIVITIES... * HOME PHONE: [phone] * Sulfa (hives) 04/05/98 * CONTACT PHONE: [phone] * CURRENT MEDICATIONS... Tylenol prn 04/05/98 PERTINENT PAST HISTORY... Healthy 04/05/98 ASSESSMENT: Positive Strep DISPOSITION: NO DISPOSITION GIVEN PLAN: [facility] [place] COMMENTS... [facility] calling to say Pt. has Positive strep. Unable to reach. Will need to call RX. Need Pharmacy #. Message was left on home machine. Call taken by COLBY MENDOZA LPN [phone] 04/06/1998 02:56 PM ADDENDUM: <> 04/06/1998 08:00PM by MICHELINE LOCKETT RN [phone]: Mom calling back, child treated per sore throat guideline Conversion, [facility] - 04/05/1998 12:01 AM CST Phone Note signed by at 04/05/98 0917 Author: [facility]y Conversion Service: (none) Author Type: (none) Filed: 08/15/10 0809 Note Time: 04/05/98 0001 Status: Signed Clip Baker: Rudy Conversion IMPRESSION: Sore Throat-(Child)-Nurse Guidelines - TREATING PROVIDER: FAMILY PRACTICE NURSE * HOME PHONE: [phone] * - Appointment made with FAMILY * CONTACT PHONE: [phone] * PRACTICE NURSE Apr 05 1998 10:10AM * Mrs Clemente (mom) * - PHARMACY: [phone] [facility] [address] SUBJECTIVE: PATIENT COMPLAINS OF... Sore throat,> 2 years of age, without cough or cold, Mom calling, patient has had sore throat with stomach upset and low grade temp for last 24 hours. Is home ill from school today.; -Fever -Denies any urgent or semi-urgent symptoms PATIENT DENIES... -Red throat -Enlarged tender neck glands -Scarlatinaform rash denies toxic symptoms ALLERGIES/SENSITIVITIES... Sulfa (hives) 04/05/98 CURRENT MEDICATIONS... Tylenol prn 04/05/98 PERTINENT PAST HISTORY... Healthy 04/05/98 ASSESSMENT: Sore Throat-(Child)-Nurse Guidelines DISPOSITION: SEMI-URGENT WEIGHT: 76 PLAN: RECOMMENDED THE FOLLOWING... Referenced guideline Sore Throat-(Child)-Nurse Guidelines. Schedule appointment on nurses schedule for a strep screen if patient is established. -Give acetaminophen or ibuprofen as directed Patient information given per Sore Throat nurse guidelines. INFORMED PATIENT TO CALLBACK IF... -Any other questions or concerns Call taken by WOLF BUENO RN [phone] 04/05/1998 09:08 AM ADDENDUM: Conversion, [facility] - 03/27/1998 12:01 AM CST Phone Note signed by at 03/27/98 3345 Author: [facility] Conversion Service: (none) Author Type: (none) Filed: 08/15/10 0759 Note Time: 03/27/98 0001 Status: Signed Clip Baker: [facility]y Conversion IMPRESSION: Lab Test Question TO: MARY STEWART FROM: FELIPE GALLO RN [phone] * PROVIDER MESSAGE: ROUTINE * 03/27/1998 02:16PM * *WITHIN 4 HOURS * MESSAGE: Mom wondering if she * HOME PHONE: [phone] * should postpone lab testing? Pt. * CONTACT PHONE: [phone] * has cough and cold sx., no fever. * Mom: Eileen * Was to have follow-up WBC 12-1. Would you like test delayed until pt. healthy? Otherwise Mom requesting order for 12-2, WBC. SUBJECTIVE: ALLERGIES/SENSITIVITIES... Sulfa (hives); 11/15/97 Omitted 03/27/98 CURRENT MEDICATIONS... None 11/15/97 Omitted 03/27/98 PERTINENT PAST HISTORY... Healthy 11/15/97 Omitted 03/27/98 WEIGHT: Not Available ASSESSMENT: Lab Test Question PLAN: DISPOSITION: NO DISPOSITION GIVEN Call taken by FELIPE GALLO RN [phone] 03/27/1998 02:09 PM ADDENDUM: Mary Stewart MD - 03/01/1998 12:01 AM CST Progress Notes signed by Mary Stewart MD at 03/10/9812 Author: Mary Stewart MD Service: (none) Author Type: Physician Filed: 08/15/10 0734 Note Time: 03/01/982229 Status: Signed Clip Baker: Mary Stewart MD (Physician) IMPRESSION: CHART NOTE Mino Clemente. I had seen Mino for a checkup and she had been having some leg pain. I did do a blood count that essentially was normal except she had a low white count of 3.4. No abnormal cells were seen. There was a little fragmentation of the red cells that really they could not relate to anything abnormal with the blood. The job placement counselor just recommended in a month repeating her blood count to see that the white count came up. nbb TER SPRAY Mary Stewart MD - 02/27/1998 12:01 AM CST Progress Notes signed by Mary Stweart MD at 03/06/9847 Author: Mary Stewart MD Service: (none) Author Type: Physician Filed: 08/15/10 0731 Note Time: 02/27/982229 Status: Signed Clip Baker: Mary Stewart MD (Physician) IMPRESSION: Healthy 8-1/2-year-old except for some intermittent right leg pain. SUBJECTIVE: Mino is an 8-1/2-year-old who comes in today for a checkup. Their only concern is she has had a fever, sore throat and some stomachache today. Mom is not sure if she has been exposed to strep. Also, over the last year she has intermittently complained mostly of her right leg hurting at nighttime. She hasn't had any fevers or other symptoms with it. She eats a variety of foods. She has no problems with constipation or diarrhea. No dysuria. She is in the third grade and is doing well. She likes soccer and is very good at running. She wears her bike helmet for bike riding and rollerblading. I talked to her about other protective gear for rollerblading. She always wears a seatbelt. She has no concerns about hearing or vision. She has had chickenpox. ADVERSE DRUG REACTIONS: SULFA. OBJECTIVE: HT: 54 in (90th percentile). WT: 63 lb (75th percentile). BP: 104/70. In general, she is an alert 8-1/2-year-old in no acute distress. Funduscopic exam is normal. Tympanic membranes are clear. Oropharynx is minimally injected. Neck is supple with some shotty precervical lymphadenopathy. Lungs are clear to auscultation. Heart is regular rate and rhythm without any murmur. Femoral pulses are normal. Abdomen is soft and nontender without any hepatosplenomegaly or masses. She is Bob stage I for breast and pubic hair development. Gait was normal. Back showed no scoliosis. Extremities appeared normal. I did do a rapid strep which was negative. ASSESSMENT: Healthy 8-1/2-year-old except for some intermittent right leg pain. PLAN: Will do a CBC with diff, peds morphology and platelets to make sure that they are normal. I think her leg pain is probably more related to muscle cramping at nighttime from her activities during the day. Will notify Mom with the results. Next checkup should be in about three years. nbb TER SPRAY Conversion, [facility] - 11/15/1997 12:01 AM CDT Phone Note signed by at 11/15/97 0814 Author: [facility] Conversion Service: (none) Author Type: (none) Filed: 08/15/10 0550 Note Time: 11/15/97 0001 Status: Signed Clip Baker: Rudy Conversion IMPRESSION: Fever (4-17 years) nurse guideline SUBJECTIVE: PATIENT COMPLAINS OF... Fever, * HOME PHONE: [phone] * -Disrupted or restless sleep Awakened this morning with temp of 100.5 orally and c/o body aches. Dad noted a slightly swollen node in the L groin. He gave her Ibuprofen and she returned to sleep.; ALLERGIES/SENSITIVITIES... Sulfa (hives) 11/15/97 CURRENT MEDICATIONS... None 11/15/97 PERTINENT PAST HISTORY... Healthy 11/15/97 ASSESSMENT: Fever (4-17 years) nurse guideline DISPOSITION: HOME CARE WEIGHT: 60 PLAN: RECOMMENDED THE FOLLOWING... Referenced guideline Fever (4-17 years) nurse guideline. -Dress lightly -Encourage increased intake of clear liquids -Give acetaminophen as directed -Spongebaths with lukewarm water may offer some comfort -Observe appearance and behavior and call for advice as needed Arrange for a follow-up call to re-evaluate symptoms if fever is high and status is questionable. Patient information given per Fever nurse guideline. INFORMED PATIENT TO CALLBACK IF... Reasons to call back reviewed- caller verbalizes understanding of the need to call back for the following reasons: -Serious symptoms develop -Cold symptoms that are bothersome or not improving MISC COMMENTS... reviewed various guidelines with Dad he will reevaluate when she awakens and call again as needed Call taken by DOROTA GRIFFITH 11/15/1997 08:06 AM ADDENDUM: Mary Stewart MD - 08/31/1997 12:01 AM CDT Progress Notes signed by Mary Stewart MD at 09/13/97 1156 Author: Mary Stewart MD Service: (none) Author Type: Physician Filed: 08/15/10 0442 Note Time: 08/31/97 0001 Status: Signed Clip Baker: Mary Stewart MD (Physician) IMPRESSION: Pharyngitis. SUBJECTIVE: Mino is an [id number] who comes in having started with a sore throat and stomachache yesterday. She has had no temp, no cold symptoms, and no headache. ALLERGIES: SULFA. OBJECTIVE: Wt: 59 lb. In general, she is an alert [id number] in no acute distress. TMs were clear. Oropharynx was injected, tonsils were about 3+/4. She had some precervical lymphadenopathy. Lungs clear to auscultation. ASSESSMENT: Pharyngitis. PLAN: I did do a rapid strep that was negative, but apparently she in the past has never really come up positive on the rapid strep and later has cultured out positive on the 24-hour culture, so I did give her samples of Cefzil 250 mg per 5 mL, take 1 tsp tid for 10 days, and they should follow up if any other concerns or questions arise. beh Conversion, [facility] - 08/30/1997 12:01 AM CDT Phone Note signed by at 08/30/972041 Author: [facility] Conversion Service: (none) Author Type: (none) Filed: 08/15/10 0441 Note Time: 08/30/97 0001 Status: Signed Clip Baker: Rudy Conversion IMPRESSION: Sore Throat-(Child)-Nurse Guidelines - TREATING PROVIDER: MARY STEWART - Appointment made with MARY * HOME PHONE: [phone] * PROSPER Aug 31 1997 10:40AM SUBJECTIVE: PATIENT COMPLAINS OF... Sore throat,> 2 years of age, without cough or cold, -Red throat Mom calling pt has had positive SS off and on since Apr. Last one was 08/01/97. Yesterday began to c/o throat pain and a stomache. Denies any fever. Is requesting to see the MD to talk about differnet options if it is strep again.; -Denies any urgent or semi-urgent symptoms ALLERGIES/SENSITIVITIES... Sulfa (hives) 08/30/97 CURRENT MEDICATIONS... None 08/30/97 PERTINENT PAST HISTORY... Healthy 08/30/97 ASSESSMENT: Sore Throat-(Child)-Nurse Guidelines DISPOSITION: SEMI-URGENT WEIGHT: 60 PLAN: RECOMMENDED THE FOLLOWING... Referenced guideline Sore Throat-(Child)-Nurse Guidelines. Schedule appointment on nurses schedule for a strep screen if patient is established. -Give acetaminophen or ibuprofen as directed -Have child gargle with salt water or ice water -Have child use hard candies, ice or cough drops to soothe throat if > age 8 -Encourage liquids: 8-10 regular glasses each day. Juice and water are best. Cool beverages or warm liquids are most soothing. -Encourage soft foods or flavored frozen desserts -Encourage extra rest so the body can use it's natural resources to recuperate -Use humidifier to increase humidity in home Patient information given per Sore Throat nurse guidelines. INFORMED PATIENT TO CALLBACK IF... -Breathing or swallowing becomes difficult -If no significant improvement in symptoms after 48 hours of medication -Sore throat lasts > 1 week without major improvement -Any other questions or concerns Call taken by JOEL MARE [phone] 08/30/1997 08:35 PM ADDENDUM: Jolie Cazares MD - 06/26/1997 12:01 AM CST Progress Notes signed by at 02/27/022017 Author: Jolie Cazares MD Service: (none) Author Type: (none) Filed: 08/15/10 0340 Note Time: 06/26/97 0001 Status: Signed Clip Baker: [facility]y Conversion IMPRESSION: No dictation required. Exudative pharyngitis, persistent despite amoxicillin. Bicillin CR 600,000 units IM. SUBJECTIVE: N/A OBJECTIVE: N/A ASSESSMENT: N/A PLAN: N/A [facility] Electronically signed by [facility] [place], [facility] at 02/26/2016 7:38 PM CDT [facility] [place], [facility] - 02/08/1997 12:01 AM CDT Phone Note signed by at 02/08/97 1703 Author: [facility] Conversion Service: (none) Author Type: (none) Filed: 08/15/10 0135 Note Time: 02/08/97 0001 Status: Signed Clip Baker: [facility]y Conversion IMPRESSION: Sore Throat-(Child)-Nurse Guidelines - PHARMACY: [phone] [facility] SUBJECTIVE: * HOME PHONE: [phone] * PATIENT COMPLAINS OF... Sore throat, positive culture. Mom calling back from voice mail message left at home by clinic. Other siblings having sx., mom having persistant bad headaches. Pt. woke up last night screaming in pain, said both legs hurt. Couldn't pinpoint location. Eventually went to sleep, woke up today feeling ok.; ALLERGIES/SENSITIVITIES... Sulfa (hives) 02/08/97 CURRENT MEDICATIONS... none 02/08/97 PERTINENT PAST HISTORY... Healthy 02/08/97 ASSESSMENT: Sore Throat-(Child)-Nurse Guidelines DISPOSITION: HOME CARE WEIGHT: 56 PLAN: STANDING ORDERS IMPLEMENTED... Pen Vk 250 mgm bid x 10 days (o) if < 60 lbs. RECOMMENDED THE FOLLOWING... Referenced guideline Sore Throat-(Child)-Nurse Guidelines. No appointment or strep screen necessary. Nurse to treat per [facility] standing orders. Reviewed information from handout for notifying patient of positive strep screen -Take acetaminophen or ibuprofen as directed -Encourage liquids: 8-10 regular glasses each day. Juice and water are best. Cool beverages or warm liquids are most soothing. -Encourage extra rest so the body can use it's natural resources to recuperate Mom will take family members in for strep screens tonight and talk to doctor about child's legs being so painful last night. If further problems she will call back. Patient information given per Sore Throat nurse guidelines. INFORMED PATIENT TO CALLBACK IF... -Breathing or swallowing becomes difficult -If no significant improvement in symptoms after 48 hours of medication -Any other questions or concerns [facility]... Script called in at 6:23pm.. Call taken by FELIPE POTTER RN [phone] 02/08/1997 06:16 PM ADDENDUM: YT Ranjith Valenzuela - 02/07/1997 12:01 AM CDT Progress Notes signed by Ranjith Valenzuela MD at 02/21/97 0843 Author: Ranjith Valenzuela MD Service: (none) Author Type: Physician Filed: 08/15/10 0133 Note Time: 02/07/97 0001 Status: Signed Clip Baker: Ranjith Valenzuela MD (Physician) IMPRESSION: Viral syndrome. SUBJECTIVE: Mino has had a cough that has lasted for 3-4 weeks. In the last day or two she has complained of new concerns with an earache intermittently, sore throat and stomachache. She has not had specifically significant drainage from the nose. OBJECTIVE: WT: 56 lb. Both ears are clear. Throat shows slight injection but her nose is relatively clear. Chest is normal with normal breath sounds. ASSESSMENT: Viral syndrome. Rule out strep. PLAN: Throat culture. Symptomatic care. I will give her a prescription for Robitussin AC cough syrup should her cough not improve with normal cough syrup. nbb Conversion, [facility] - 01/31/1997 12:01 AM CDT Phone Note signed by at 01/31/97 8228 Author: [facility] Conversion Service: (none) Author Type: (none) Filed: 08/15/10 0127 Note Time: 01/31/97 0001 Status: Signed Clip Baker: [facility] Conversion IMPRESSION: Sting,bee/insect-(child)-nurse guidelines SUBJECTIVE: PATIENT COMPLAINS OF... * HOME PHONE: [phone] * Bee/insect sting, -Mild redness, tenderness at site -Localized swelling Just bite by honey bee in (L) arm x2 and (R) arm x1. Dad calling, thinks that the stinger is out. Finger on (R) hand is quite swollen and child whimpering from pain. Ice is not helping much. Has not given any Tylenol at this point. No respiratory difficulty. ; ALLERGIES/SENSITIVITIES... Sulfa (hives) 01/31/97 CURRENT MEDICATIONS... 01/31/97 PERTINENT PAST HISTORY... Healthy 01/31/97 ASSESSMENT: Sting,bee/insect-(child)-nurse guidelines DISPOSITION: HOME CARE WEIGHT: 70 PLAN: RECOMMENDED THE FOLLOWING... Referenced guideline Sting,bee/insect-(child)-nurse guidelines. -Remove stinger by scraping it off -Wash bite thoroughly with soap and water -Elevate area to reduce swelling -Give OTC Benadryl -Give acetaminophen as directed -Apply ice cube to site -Apply a paste made of baking soda and water or take a baking soda bath if there are many bites -Apply Calamine lotion or OTC 1% hydrocortisone cream for itching and inflammation as directed -Monitor area for signs of infection -Trim nails to minimize trauma from scratching. Discourage scratching as it may prolong the symptoms and introduce bacteria. Patient information given per Stings, insect/bees nurse guidelines. A large local reaction (e.g entire arm) may indicate an allergy to bee or insect stings. Localized swelling around the site will occur as a normal reaction to the insect venom. injected. INFORMED PATIENT TO CALLBACK IF... -Symptoms of infection -Symptoms persist after 48 hours of home management or worsen. -Any other questions or concerns PATIENT DECLINED CALLBACK Call taken by ASHLEY CARDONA RN [phone] 01/31/1997 05:09 PM ADDENDUM: Conversion, [facility] - 12/21/1996 12:01 AM CDT Phone Note signed by at 12/21/96 4878 Author: [facility]y Conversion Service: (none) Author Type: (none) Filed: 08/15/10 0054 Note Time: 12/21/962229 Status: Signed Clip Baker: Rudy Strong IMPRESSION: Fever (4-17 years) nurse guideline SUBJECTIVE: PATIENT COMPLAINS OF... Fever, * HOME PHONE: [phone] * 101.8; -VURI symptoms < 72 * CONTACT PHONE: [phone] * hours also has headache and * Eileen * stomachache. Has vomited xs 1.; -Rash (not painful) blanching, raised, on face only. Mother states that she had the rash this AM, then it faded and now came back with onset of fever; ALLERGIES/SENSITIVITIES... Sulfa 12/21/96 CURRENT MEDICATIONS... Tylenol prn 12/21/96 PERTINENT PAST HISTORY... Healthy ; Child weighs about 70lbs. Mom guessed 12/21/96 ASSESSMENT: Fever (4-17 years) nurse guideline DISPOSITION: HOME CARE PLAN: RECOMMENDED THE FOLLOWING... Referenced guideline Fever (4-17 years) nurse guideline. -Dress lightly -Encourage increased intake of clear liquids -Give acetaminophen as directed -Spongebaths with lukewarm water may offer some comfort -Observe appearance and behavior and call for advice as needed INFORMED PATIENT TO CALLBACK IF... -Serious symptoms develop -Cold symptoms that are bothersome or not improving -Fever continues without other symptoms of illness for > 72 hours -Any other questions or concerns -Symptoms persist or worsen -Any other questions or concerns MISC COMMENTS... Will set up call back for tomorrow am - Mother states that she has a hx of strep. Denies sore throat at present Call taken by PAUL SERRANO RN [phone] 12/21/1996 07:42 PM ADDENDUM: <> 12/22/1996 09:34AM by PAUL SERRANO RN: PHONE WAS BUSY. <> 12/22/1996 09:51AM by PAUL SERRANO RN: feels better- mother will just monitor and call w/ other concerns Brisa Smith PA-C - 08/22/1996 12:01 AM CDT Progress Notes signed by Brisa Smith PA-C at 02/25/97 3383 Author: Brisa Smith PA-C Service: (none) Author Type: Physician Technical Services Librarian Filed: 08/14/10 5695 Note Time: 08/22/96 0001 Status: Signed Clip Baker: Brisa Smith PA-C (Physician Technical Services Librarian) IMPRESSION: Pharyngitis, most likely strep. SUBJECTIVE: Mino is a 5-year-old who presents with a sore throat that she has had since yesterday. She ran a temperature of about 102 degrees that is controlled with Tylenol. She complains of a headache and has had a couple of episodes of vomiting. She denies any rashes or ear pain. ALLERGIES/ADVERSE DRUG REACTIONS: Sulfa. MEDICATIONS: Motrin. OBJECTIVE: Temperature 102.6. Pulse 120. Respirations 20. Weight is 60 lb. HEENT: Both TMs are clear with normal landmarks. Nasal mucosa is moist and pink. Posterior oropharynx reveals enlarged tonsils with exudate and erythema. Neck has significant anterior and posterior cervical adenopathy, tender to touch. Lungs clear. Heart regular rate and rhythm. ASSESSMENT: Pharyngitis, most likely strep. PLAN: Patient was started on Pen Vee K 250 mg, 1 tsp. b.i.d. x 10 days. Follow up if symptoms do not improve. [facility] SPRAY Conversion, [facility] - 08/21/1996 12:01 AM CDT Phone Note signed by at 08/21/96 3833 Author: [facility] Conversion Service: (none) Author Type: (none) Filed: 08/14/10 1658 Note Time: 08/21/962229 Status: Signed Clip Baker: [facility] Conversion IMPRESSION: Fever (4-17 years) nurse guideline SUBJECTIVE: PATIENT COMPLAINS OF... Fever, * HOME PHONE: [phone] * Child woke with fever of * CONTACT PHONE: [phone] * 102PO this morning,08/21/96. * Mom * States has a slight sore throat this morning on waking but no present now. Mom has given OTC childrens Tylenol for fever. Denies rash or urgent sx.; Child is complaining of thighs aching and no other area. Child said it is painful to stand and is usually very active. Mom denies any visible swelling , redness or discoloration. States child has never complained of this type of pain before. Child drinking well. PATIENT DENIES... -Disrupted sleep -VURI symptoms < 72 hours -Recent immunization -Rash (not painful ALLERGIES/SENSITIVITIES... Sulfa 08/21/96 CURRENT MEDICATIONS... Tylenol prn 08/21/96 PERTINENT PAST HISTORY... Healthy ; Child weighs about 70lbs. Mom guessed 08/21/96 ASSESSMENT: Fever (4-17 years) nurse guideline DISPOSITION: HOME CARE PLAN: RECOMMENDED THE FOLLOWING... Referenced guideline Fever (4-17 years) nurse guideline. -Dress lightly -Encourage increased intake of clear liquids -Give acetaminophen as directed -Spongebaths with lukewarm water may offer some comfort -Observe appearance and behavior and call for advice as needed Arrange for a follow-up call to re-evaluate symptoms if fever is high and status is questionable. Referecned : Pediatric telphone advise p.[phone] child needs to be seen and Mom will problably take her to Urgent care today. Did set up call for tomorrow AM before deciding. INFORMED PATIENT TO CALLBACK IF... sx. worsen. [facility]... Lost all of note due to some error and had to reenter from memory. Call taken by GEORGE MICHELE RN [phone] 08/21/1996 11:58 AM ADDENDUM: <> 08/22/1996 01:35PM by FAZAL BERGERON RN: leg pain gone, complained of sore throat this morning, vomited once, fever continues up to 103, mom will bring child to for strep test Conversion, [facility] - 08/16/1996 12:01 AM CDT Phone Note signed by at 08/16/96 2557 Author: [facility] Conversion Service: (none) Author Type: (none) Filed: 08/14/10 8562 Note Time: 08/16/96 0001 Status: Signed Clip Baker: Rudy Strong IMPRESSION: Nose Trauma SUBJECTIVE: PATIENT COMPLAINS OF... Aprox. * HOME PHONE: [phone] * 1/2 hour ago child was in pool and hit her nose on side. Didn't cry until she went to her mom aprox. 15 min. later. No nosebleed, bridge of nose and aprox. 1 inch below bridge slightly swollen. Mom has ice pack on, child cried a few min., no bruising seen, child acting ok, no sx. of head trauma. Mom asking about what sx. she should be watching for? ALLERGIES/SENSITIVITIES... Sulfa 08/16/96 CURRENT MEDICATIONS... none 08/16/96 PERTINENT PAST HISTORY... healthy 08/16/96 ASSESSMENT: Nose Trauma DISPOSITION: NON-URGENT PLAN: RECOMMENDED THE FOLLOWING... Ref. Nosebleed Guideline and [facility], nose trauma. Discussed sx. of head trauma to look for and if sx. worsen or change to be seen. Mom will call back if needed, prefers no call back from us. Call taken by FELIPE POTTER RN [phone] 08/16/1996 06:30 PM ADDENDUM: Conversion, [facility] - 07/08/1996 12:01 AM CST Phone Note signed by at 07/08/96 1900 Author: [facility]y Conversion Service: (none) Author Type: (none) Filed: 08/14/10 0215 Note Time: 07/08/96 0001 Status: Signed Clip Baker: Rudy Strong IMPRESSION: Fever, Vague tummy ache c/o. SUBJECTIVE: PATIENT COMPLAINS OF... Negative * HOME PHONE:[phone] * strep screen result today. Child has had 36hr swollen glands, temp about 99.5 and vague stomach ache c/o. Eating better today. No rash. No change in stools. No c/o sore throat. Active. ALLERGIES/SENSITIVITIES... Sulfa 07/08/96 CURRENT MEDICATIONS... none 07/08/96 PERTINENT PAST HISTORY... healthy 07/08/96 ASSESSMENT: Fever, Vague tummy ache c/o. DISPOSITION: HOME CARE PLAN: RECOMMENDED THE FOLLOWING... Will monitor alittle longer; appt recommended for worsening symptoms or not improving by tomorrow or persist yet Friday. Verbalizes understanding and agrees with phone care recommendation INFORMED PATIENT TO CALLBACK IF... Declined nurse callback. Will call for worsening or persisting sx's. CALL BY FELIPE PIERCE RN 07/08/1996 02:06PM [phone] ADDENDUM: Rivera Izquierdo MD - 06/10/1996 12:01 AM CST Progress Notes signed by Rivera Izquierdo MD at 06/15/96 0926 Author: Rivera Izquierdo MD Service: (none) Author Type: Physician Filed: 08/14/102229 Note Time: 06/10/96 0001 Status: Signed Clip Baker: Rivera Izquierdo MD (Physician) IMPRESSION: Cough and fever. SUBJECTIVE: Mino comes in today for a cough for about seven days, temperature yesterday to 100.8 and pain in the chest with breathing yesterday. She is eating and sleeping okay. OBJECTIVE: T: 99.2. Wt: 52 pounds. Tympanic membranes and pharynx normal. Chest sounds clear. ASSESSMENT: Cough and fever. PLAN: Amoxicillin 250 per teaspoon, 1 teaspoon t.i.d. x ten days. Recheck p.r.n. bmn [facility] - 04/27/1996 12:01 AM CST Phone Note signed by at 04/27/96 1011 Author: Rudy Strong Service: (none) Author Type: (none) Filed: 08/14/102199 Note Time: 04/27/96 0001 Status: Signed Clip Baker: Rudy Strong IMPRESSION: Sore Throat-(Child)-Nurse Guidelines - APPOINTMENT MADE WITH PEDIATRIC NURSE 04/27/1996 01:30PM * HOME PHONE:[phone] * SUBJECTIVE: PATIENT COMPLAINS OF... Sore throat,> 3 years of age, without cough or cold for > 24 hours,; -Fever; Onset Sore throat yesterday afternoon, stomach ache, fever ALLERGIES/SENSITIVITIES... Sulfa 04/27/96 CURRENT MEDICATIONS... none 04/27/96 PERTINENT PAST HISTORY... healthy 04/27/96 ASSESSMENT: Sore Throat-(Child)-Nurse Guidelines DISPOSITION: HOME CARE PLAN: RECOMMENDED THE FOLLOWING... Referenced guideline Sore Throat-(Child)-Nurse Guidelines. If patient is established, and at least 3 years of age, schedule appointment on nurses schedule for a strep screen.; -Give acetaminophen as directed; -Gargle with warm salt water; -Increase fluid intake; -Improve room humidity with a cool mist vaporizer; Verbalizes understanding and agrees with phone care recommendation CALL BY FELIPE PIERCE RN 04/27/1996 09:59AM [phone] ADDENDUM: Mary Stewart MD - 03/09/1996 12:01 AM CST Progress Notes signed by Mary Stewart MD at 03/18/96 0821 Author: Mary Stewart MD Service: (none) Author Type: Physician Filed: 08/14/102128 Note Time: 03/09/96 0001 Status: Signed Clip Baker: Mary Stewart MD (Physician) IMPRESSION: Right otitis media and pharyngitis. SUBJECTIVE: Mino Clemente is a 5-year-old who comes in having started with some stomach ache, about four days ago and then has complained of some sore throat and ear pain. She did have a little looser stools, but no nausea. No temp. Adverse Drug Reactions: SULFA. OBJECTIVE: Wt: 52 pounds. In general, she is an alert 5-year-old in no acute distress. Right TM: Dull and injected. Left TM: Clear. Oropharynx: Reveal tonsils to be about 3+/4, but with very mild injection. Neck: Supple with some precervical adenopathy. Lungs: Clear to auscultation. ASSESSMENT: Right otitis media and pharyngitis. PLAN: Will treat with amoxicillin 250 mg per 5 ml, take one teaspoon three times a day for 10 days. She should follow up if her symptoms are not improving or if any other concerns or questions arise. [id number] TER SPRAY Conversion, [facility] - 03/08/1996 12:01 AM CST Phone Note signed by at 03/08/96 5462 Author: [facility]y Conversion Service: (none) Author Type: (none) Filed: 08/14/10 1446 Note Time: 03/08/96 0001 Status: Signed Clip Baker: [facility]y Conversion IMPRESSION: Sore Throat-(Child)-Nurse Guidelines - REFERRED PATIENT TO URGENT CARE AT [facility] * HOME PHONE: [phone] * SUBJECTIVE: PATIENT COMPLAINS OF... Sore throat that has lasted > 1 week.; Mom calling child c/o of sore throat, stomach ache, no n/v no diarrhea, tiredness, no fever, hurts to swallow. Symptoms for about 3 days. Has not tryed home management. Does notice some red spots in mouth.; ALLERGIES/SENSITIVITIES... sulfa 03/08/96 CURRENT MEDICATIONS... none 03/08/96 PERTINENT PAST HISTORY... none 03/08/96 ASSESSMENT: Sore Throat-(Child)-Nurse Guidelines DISPOSITION... SEMI-URGENT PLAN: RECOMMENDED THE FOLLOWING... Referenced guideline Sore Throat-(Child)-Nurse Guidelines. Schedule appointment within 24 hours (1 unit); Mom will take child to U/C; -Give acetaminophen as directed; -Gargle with warm salt water; -Increase fluid intake; -Improve room humidity with a cool mist vaporizer; INFORMED PATIENT... Patient information given per Sore Throat nurse guidelines.; INFORMED PATIENT TO CALLBACK IF... -Sunburned looking rash appears; -Breathing or swallowing becomes difficult; -Sore throat lasts > 1 week without major improvement; -Any other questions or concerns; Call taken by ROGER DUNHAM RN [phone] 03/08/1996 05:52 PM ADDENDUM: [facility] - 10/20/1995 12:01 AM CDT Phone Note signed by at 10/20/95 3014 Author: Rudy Strong Service: (none) Author Type: (none) Filed: 08/14/102004 Note Time: 10/20/95 0001 Status: Signed Clip Baker: Rudy Strong IMPRESSION: giardia in house - REFERRED PATIENT TO URGENT CARE AT [facility] * HOME PHONE:[phone] * SUBJECTIVE: PATIENT COMPLAINS OF... mom calling. father currently being tx for giardia, mom is symptomatic for possible giardia as is a younger sibling. child is asymptomatic. ALLERGIES/SENSITIVITIES... sulfa CURRENT MEDICATIONS... none PERTINENT PAST HISTORY... none ASSESSMENT: giardia in house DISPOSITION: SEMI-URGENT PLAN: RECOMMENDED THE FOLLOWING... referred to for evaluation with 3 other family members Verbalizes understanding and agrees with phone care recommendation INFORMED PATIENT TO CALLBACK IF... other questions/concerns CALL BY JESSICA SINHA RN 10/20/1995 06:12PM [phone] ADDENDUM: Darryn Monk MD - 07/12/1995 12:01 AM CST Progress Notes signed by Darryn Olson MD at 02/27/022017 Author: Darryn Olson MD Service: (none) Author Type: (none) Filed: 08/14/101906 Note Time: 07/12/95 0001 Status: Signed Clip Baker: Darryn Olson MD (Physician) IMPRESSION: No dictation required. Upper respiratory infection and pharyngitis. SUBJECTIVE: N/A OBJECTIVE: N/A ASSESSMENT: N/A PLAN: N/A [id number] Mary Stewart MD - 06/24/1995 12:01 AM CST Progress Notes signed by Mary Stewart MD at 07/01/95 1756 Author: Mary Stewart MD Service: (none) Author Type: Physician Filed: 08/14/101855 Note Time: 06/24/95 0001 Status: Signed Clip Baker: Mary Stewart MD (Physician) IMPRESSION: Right otitis media and possible strep pharyngitis. SUBJECTIVE: Mino is a efao-aezo-hwr who comes in having had a sore throat today and a stomachache. She has also complained of her finger tips hurting. She has had no cold symptoms. No temp. Apparently, mom had a high temp recently with achiness and sore throat, and her brother has had some stomachache and elevated temp. ALLERGIES: SULFA. OBJECTIVE: Wt: 50 lb. In general, she is an alert hjok-waep-euf in no acute distress. She does have some yellowish wedge of fluid behind the right tympanic membrane with some injection. Left tympanic membrane was clear. Oropharynx was minimally injected. Neck supple with some precervical lymphadenopathy. Lungs clear to auscultation. ASSESSMENT: Right otitis media and possible strep pharyngitis. PLAN: Will treat her with amoxicillin 250 mg per 5 mL, take 1 tsp tid for 10 days, and she should follow up if her symptoms are not improving. Will also do a throat culture on her brother, Xander. beh [facility] SPRAY Darryn Olson MD - 03/01/1995 12:01 AM CST Progress Notes signed by Darryn Olson MD at 06/20/95 0748 Author: Darryn Olson MD Service: (none) Author Type: (none) Filed: 08/14/10 1801 Note Time: 03/01/95 0001 Status: Signed Clip Baker: Darryn Olson MD (Physician) IMPRESSION: No dictation required. SUBJECTIVE: N/A OBJECTIVE: N/A ASSESSMENT: N/A PLAN: N/A Nikhil Eldridge MD - 12/19/1994 12:01 AM CDT Progress Notes signed by Nikhil Eldridge MD at 01/07/95 1311 Author: Nikhil Eldridge MD Service: (none) Author Type: Physician Filed: 08/14/10 1737 Note Time: 12/19/94 0001 Status: Signed Clip Baker: Nikhil Eldridge MD (Physician) IMPRESSION: 1. Negative testing for penicillin. 2. Otitis media. SUBJECTIVE: Mino is a 4-year-old female who has had problems with adverse reactions to antibiotics. She has had hives with sulfa and recently developed strep pharyngitis and was treated with penicillin. Within a couple of days she developed a fine, nonpruritic rash that was felt possibly may indicate a penicillin allergy. She does not have any inhalant allergies or other problems. She has had a cold for the last few days. OBJECTIVE: Wt: 47. HENT exam reveals fluid behind both TMs with some slight inner erythema, the right worse than the left. Nasal airway was minimally obstructed. Pharynx was clear. Her chest was clear. The rest of the exam was negative. Skin testing for penicillin, both by scratch and intradermal technique, was negative. She had large controls on the histamine, measuring 20 mm of wheal and 45 mm of flare. ASSESSMENT: 1. Negative testing for penicillin. 2. Otitis media. PLAN: Mino has no evidence of penicillin sensitivity, and with evidence of otitis today, she was to start amoxicillin chewables 250 mg tid for the next 10 days. Will have her return prn. matthew Mary Stewart MD - 09/12/1994 12:01 AM CDT Progress Notes signed by Mary Stewart MD at 09/25/94 3339 Author: Mary Stewart MD Service: (none) Author Type: Physician Filed: 08/14/10 1716 Note Time: 09/12/94 0001 Status: Signed Clip Baker: Mary Stewart MD (Physician) IMPRESSION: Healthy mied-xotk-ngi. SUBJECTIVE: Mino is a wzxl-koht-muc who comes in today. Really, mom has no specific concerns or questions. PAST MEDICAL HISTORY: She has had no hospitalizations or surgeries, has really been very healthy. She drinks 2-3 cups of milk a day, eats a balanced diet. She has no problems with constipation or diarrhea. Has no sleeping problems. Developmentally she can count to 100 with help. She knows her ABCs, can spell her first and last name, knows her phone number, is working on her address, knows her shapes and colors, is pretty good with drawing, is very good with her gross motor skills, throwing and kicking a ball, riding a bike with training wheels, and she does wear a helmet. She passed her hearing at the school screening and they have had no concerns about her vision. She has had no exposure to tuberculosis. She did have an elevated temp up to 104 with one of her shots but, then, got her subsequent shots without any problems and they thought it was just related to an illness. OBJECTIVE: Ht: 46 1/2 in (above the 95th percentile). Wt: 47 lb (90th percentile). BP: 90/54. Physical exam was within normal limits. Hearing was normal. Vision was 20/20 in both eyes, and she passed Langstereo. ASSESSMENT: Healthy poqh-xniw-chd. PLAN: Will go ahead with her DPT, oral Polio, and hemoglobin. Also did discuss the hepatitis B vaccination that they might want to think about when she is an adolescent. She already has had the chicken pox. Violette Mota MD - 08/09/1994 12:01 AM CDT Progress Notes signed by Violette Thomas MD at 08/22/94 1313 Author: Violette Thomas MD Service: (none) Author Type: Physician Filed: 08/14/10 0800 Note Time: 08/09/94 0001 Status: Signed Clip Baker: Violette Thomas MD (Physician) IMPRESSION: Vulvovaginitis. SUBJECTIVE: Mino has been having problems with redness and itching in the genital area. The child was placed on Vantin about two weeks ago and that's about when this started. It's starting to improve in the last few days since she just got off the Vantin a few days ago. Mom says she has had a little bit of discharge, that she has noticed, but it's primarily the itching. The child also takes baths and sometimes sits in water that has shampoo in it. She has ALLERGIES TO PENICILLIN AND SULFA. OBJECTIVE: Weight: 46 1/2 lb. Her exam shows that you can tell where the labia had been reddened and the redness extends back to the rectal area, but it appears to be resolving in that there is increased pigmentation in that area. The vaginal mucosa introitus looks quite normal. ASSESSMENT: Vulvovaginitis, possibly secondary to the Vantin but this is known to occur with cephalosporins. PLAN: Avoid Vantin in the future if possible. Adona that her rash was clearing at this and may require no topical therapy, but if mom would like to try something like either Vaseline or even a hydrocortisone ointment that would be okay. Otherwise avoid having her sit in anything that's scented in the bathtub, and she is to return as needed. Rivera Izquierdo MD - 07/18/1994 12:01 AM CST Progress Notes signed by Rivera Izquierdo MD at 07/23/94 1326 Author: Rivera Izquierdo MD Service: (none) Author Type: Physician Filed: 08/14/10 0765 Note Time: 07/18/94 0001 Status: Signed Clip Baker: Rivera Izquierdo MD (Physician) IMPRESSION: Right otitis media. SUBJECTIVE: Mino comes in today for a possible Strept. She was irritable yesterday and complained of stomachache. Temperature was 99.5. She coughed the last three days. She has had Strept three times in the past couple of months. Past medical history: No hospitalizations and no surgery. ALLERGIC TO SULFA AND PENICILLIN although mom is not sure about the penicillin allergy and we discussed getting her allergy skin-tested at [place] with an senior it engineer. OBJECTIVE: On examination, WT: 46 1/2 pounds. Her right tympanic membrane is dull with air fluid level inferiorly and somewhat reddened. The remainder of the examination is unremarkable. Pharynx is unremarkable. ASSESSMENT: Right otitis. PLAN: Vantin 100 b.i.d. times ten days. Recheck p.r.n. if not improving. TER SPRAY documented in this encounter Plan of Treatment Not on filedocumented as of this encounter Procedures Procedure Name Priority Date/Time Associated Diagnosis Comme nts XR TIBIA FIBULA RT Routine 08/15/2003 2:43 PM Res ults for this 2 VIEWS CDT procedure are i n the results section. XR FINGER RT INDEX Routine 08/10/2003 10:01 AM Re sults for this 2+ VIEWS CDT procedure are i n the results section. XR PELVIS W LT Routine 06/30/2003 9:00 AM Results for this LATERAL HIP PAINTER SPRAY procedure are i n the results section. BETA STREP RESP Routine 07/25/2001 1:09 PM Result s for this CULT PAINTER SPRAY procedure are i n the results section. XR ELBOW Routine 10/17/1999 8:50 AM Results f or this CDT procedure are i n the results section. STREP GROUP A Routine 04/08/1999 5:51 PM Results for this ANTIGEN TEST PAINTER SPRAY procedure are i n the results section. BETA STREP FOLLOWUP Routine 04/08/1999 5:51 PM Re sults for this PAINTER SPRAY procedure are i n the results section. STREP GROUP A Routine 08/06/1998 11:10 AM Results for this ANTIGEN TEST CDT procedure are i n the results section. STREP GROUP A Routine 06/08/1998 10:09 AM Results for this ANTIGEN TEST PAINTER SPRAY procedure are i n the results section. BETA STREP FOLLOWUP Routine 06/08/1998 10:09 AM R esults for this PAINTER SPRAY procedure are i n the results section. WBC, BLOOD Routine 05/29/1998 3:47 PM Results f or this PAINTER SPRAY procedure are i n the results section. BETA STREP RESP Routine 04/26/1998 3:23 PM Result s for this CULT PAINTER SPRAY procedure are i n the results section. STREP GROUP A Routine 04/05/1998 10:52 AM Results for this ANTIGEN TEST PAINTER SPRAY procedure are i n the results section. BETA STREP FOLLOWUP Routine 04/05/1998 10:52 AM R esults for this PAINTER SPRAY procedure are i n the results section. STREP GROUP A Routine 02/27/1998 10:38 AM Results for this ANTIGEN TEST PAINTER SPRAY procedure are i n the results section. BETA STREP FOLLOWUP Routine 02/27/1998 10:38 AM R esults for this PAINTER SPRAY procedure are i n the results section. MORPH FINAL REPORT Routine 02/27/1998 9:03 AM Res ults for this PAINTER SPRAY procedure are i n the results section. PLATELETS Routine 02/27/1998 9:03 AM Results f or this PAINTER SPRAY procedure are i n the results section. HEMOGLOBIN, BLOOD Routine 02/27/1998 9:03 AM Resu lts for this PAINTER SPRAY procedure are i n the results section. WBC, BLOOD Routine 02/27/1998 9:03 AM Results f or this PAINTER SPRAY procedure are i n the results section. STREP GROUP A Routine 01/26/1998 3:25 PM Results for this ANTIGEN TEST CDT procedure are i n the results section. BETA STREP FOLLOWUP Routine 01/26/1998 3:25 PM Re sults for this CDT procedure are i n the results section. STREP GROUP A Routine 11/16/1997 11:56 AM Results for this ANTIGEN TEST CDT procedure are i n the results section. BETA STREP FOLLOWUP Routine 11/16/1997 11:56 AM R esults for this CDT procedure are i n the results section. STREP GROUP A Routine 08/31/1997 12:07 PM Results for this ANTIGEN TEST CDT procedure are i n the results section. BETA STREP FOLLOWUP Routine 08/31/1997 12:07 PM R esults for this CDT procedure are i n the results section. BETA STREP RESP Routine 08/01/1997 4:43 PM Result s for this CULT CDT procedure are i n the results section. BETA STREP RESP Routine 07/11/1997 4:46 PM Result s for this CULT PAINTER SPRAY procedure are i n the results section. BETA STREP RESP Routine 06/26/1997 12:09 PM Resul ts for this CULT PAINTER SPRAY procedure are i n the results section. STREP GROUP A Routine 05/11/1997 4:58 PM Results for this ANTIGEN TEST PAINTER SPRAY procedure are i n the results section. BETA STREP FOLLOWUP Routine 05/11/1997 4:58 PM Re sults for this PAINTER SPRAY procedure are i n the results section. documented in this encounter Results XR Tibia Fibula Rt 2 Views (08/15/2003 2:43 PM CDT) Anatomical Region Laterality Modality Lower Extremity, Knee, Leg, Foot & Ankle Other Specimen (Source) Anatomical Location Collection Method / Collectio n Time Received Time / Laterality Volume Narrative 08/15/2003 2:43 PM CDT Impression: Study is negative. Findings: BN3 No evidence of fracture or dislocation. ??Density of the bony structures is normal. ??Soft tissues are unremarkable. Dictating SANJEEV RICO RADIOLOGIST Procedure Note Leena Zelaya - 06/29/2016 Impression: Study is negative. Findings: BN3 No evidence of fracture or dislocation. Density of the bony structures is normal. Soft tissues are u nremarkable. Dictating SANJEEV RICO RADIOLOGIST Veronique Clemons MD RAD GD XR Finger Rt Index 3 Views (08/10/2003 10:01 AM CDT) Anatomical Region Laterality Modality Upper Extremity, Hand Other Specimen (Source) Anatomical Location Collection Method / Collectio n Time Received Time / Laterality Volume Impressions 08/10/2003 10:01 AM CDT : ??Negative examination of the right index finger. [id number] Dictating SABINA MENDES Radiologist Narrative 08/10/2003 10:01 AM CDT COMPARISON STUDY: ??None. CLINICAL HISTORY: ??12-year-old female w ith finger pain. Procedure Note Sabina Flanagan MD - 06/29/2016Formattin g of this note might be different from the original. COMPARISON STUDY: None. CLINICAL HISTORY: 12-year-old female wit h finger pain. IMPRESSION : Negative examination of the right inde x finger. [id number] Dictating SABINA MENDES Radiologist Roxanne Flores MD RAD GD XR Pelvis W Lt Lateral Hip (06/30/2003 9:00 AM PAINTER SPRAY) Anatomical Region Laterality Modality Pelvis, Hip Other Specimen (Source) Anatomical Location Collection Method / Collectio n Time Received Time / Laterality Volume Narrative 06/30/2003 9:00 AM PAINTER SPRAY There is no fracture or dislocation. ??There is no bone or soft tissue abnormality. ??The femoral head ossifica tion center have fused bilaterally. [id number] Dictating RIVERA LOMBARDO RADIOLOGIST Procedure Note Rivera Guadalupe - 07/04/2016Formattin g of this note might be different from the original. There is no fracture or dislocation. The re is no bone or soft tissue abnormality. The femoral head ossificati on center have fused bilaterally. [id number] Dictating RIVERA LOMBARDO RADIOLOGIST Rahat Mix PA-C RAD GD Beta Strep Resp Cult (07/25/2001 1:09 PM PAINTER SPRAY) athologist Signature Strep Screen SEE TEXT HP CONVERSION Comment: Patient: MINO CLEMENTE Culture Strep Screen, Throat @ ?Collected: ??[id number] ??[id number] Source: Throat ?Processed: ??[id number] ??[id number] ? 1V Final Report ------ ?[id number] ??1000 No beta hemolytic Strep group A isolated . @ = Strep Screen Performed at [address] [place], [place] ?[address] Specimen (Source) Anatomical Collection Method Collection Time Re ceived Time Location / / Volume Laterality 07/25/2001 1:09 PM PAINTER SPRAY Jessica Kenney MD LAB_1 Performing Organization Address [facility] Phon e Number HP CONVERSION XR Elbow (10/17/1999 8:50 AM CDT) Anatomical Region Laterality Modality Other Specimen (Source) Anatomical Location Collection Method / Collectio n Time Received Time / Laterality Volume Narrative 10/17/1999 8:50 AM CDT CLINICAL DATA: ?FOLLOW UP POSSIBLE FRACTURE. FINDINGS: ?BN1 ?NO RADIOGRAPHIC EVIDENCE OF BONE O R JOINT ABNORMALITY. TECH-ID : ? 25 TRANS-ID: Procedure Note Trino Mcduffie - 07/04/2016Formatting of t his note might be different from the original. CLINICAL DATA: FOLLOW UP POSSIBLE FRACTURE. FINDINGS: BN1 NO RADIOGRAPHIC EVIDENCE OF BONE OR YOEL NT ABNORMALITY. TECH-ID : 25 TRANS-ID: Dustin Meza MD RAD GD Strep Group A Antigen Test (04/08/1999 5:51 PM PAINTER SPRAY) Analysis Performed At Patho logist Time Signature Strep Group A Negative Negative HP CONVERSION Antigen Test Comment: Culture to follow. Specimen (Source) Anatomical Collection Method Collection Time Re ceived Time Location / / Volume Laterality 04/08/1999 5:51 PM PAINTER SPRAY Jackson Rivera MD LAB_1 Performing Organization Address City/[facility] Phon e Number HP CONVERSION Beta Strep Followup (04/08/1999 5:51 PM PAINTER SPRAY) P athologist Signature Strep Screen SEE TEXT HP CONVERSION Comment: Patient: MINO CLEMENTE Rapid Strep Follow up Culture @ ? Collected: ??[id number] ??[id number] Source: Throat ?Processed: ??[id number] ??1759 ? 1V Final Report ------ ?[id number] ??1130 No beta hemolytic Strep group A isolated . @ = Rapid F/U Cult Performed at [address] [place] [place] ?[address] Specimen (Source) Anatomical Collection Method Collection Time Re ceived Time Location / / Volume Laterality 04/08/1999 5:51 PM PAINTER SPRAY Jackson Rivera MD LAB_1 Performing Organization Address City/[facility] Code Phon e Number HP CONVERSION Strep Group A Antigen Test (08/06/1998 11:10 AM CDT) Analysis Performed At [facility] Signature Strep Group A Positive Negative HP CONVERSION Antigen Test Specimen (Source) Anatomical Collection Method Collection Time Re ceived Time Location / / Volume Laterality 08/06/1998 11:10 AM CDT Darryn Olson MD LAB_1 Performing Organization Address City/State/ZIP Code Phon e Number HP CONVERSION Strep Group A Antigen Test (06/08/1998 10:09 AM PAINTER SPRAY) Analysis Performed At [facility] Signature Strep Group A Negative Negative HP CONVERSION Antigen Test Comment: Culture to follow. Specimen (Source) Anatomical Collection Method Collection Time Re ceived Time Location / / Volume Laterality 06/08/1998 10:09 AM PAINTER SPRAY Rivera Izquierdo MD LAB_1 Performing Organization Address City/[facility]/ZIP Code Phon e Number HP CONVERSION (ABNORMAL) Beta Strep Followup (06/08/1998 10:09 AM PAINTER SPRAY) [facility] Signature Strep Screen SEE TEXT HP CONVERSION (A) Comment: Patient: MINO CLEMENTE Rapid Strep Follow up Culture @ ? Collected: ??[id number] ??1009 Source: Throat ?Processed: ??[id number] ??1012 ? 1C Final Report ------ ?[id number] ??1000 Beta Strep Group A Present. ICSI Pharyngitis guideline recommends Penicillin V potassium (Pen VK) in nonal lergic patients. If < 50 lbs, 250 mg PenVK BID for 10 day s. >=50 lbs, 500 mg PenVK BID for 10 days. @ = Rapid F/U Cult Performed at [address] [place] ?[address] Specimen (Source) Anatomical Collection Method Collection Time Re ceived Time Location / / Volume Laterality 06/08/1998 10:09 AM PAINTER SPRAY Rivera Izquierdo MD LAB_1 Performing Organization Address City/State/ZIP Code Phon e Number HP CONVERSION WBC, Blood (05/29/1998 3:47 PM PAINTER SPRAY) athologist Signature White Blood 6.3 5.0 - 14.5 HP CONVERSION Cell Count K/cmm Specimen (Source) Anatomical Collection Method Collection Time Re ceived Time Location / / Volume Laterality 05/29/1998 3:47 PM PAINTER SPRAY Benita Worthy III, MD LAB_1 Performing Organization Address City/State/ZIP Code Phon e Number HP CONVERSION (ABNORMAL) Beta Strep Resp Cult (04/26/1998 3:23 PM PAINTER SPRAY) Analysis Performed At Patho logist Time Signature Strep Screen SEE TEXT HP CONVERSION (A) Comment: Patient: MINO CLEMENTE Culture Strep Screen, Throat @ ?Collected: ??[id number] ??1523 Source: THROAT ?Processed: ??[id number] ??1523 ? 1C Final Report ------ ?[id number] ??0911 Beta Strep Group A Present. ICSI Pharyngitis guideline recommends Penicillin V potassium (Pen VK) in nonal lergic patients. If < 50 lbs, 250 mg PenVK BID for 10 day s. >=50 lbs, 500 mg PenVK BID for 10 days. @ = Strep Screen Performed at ??[address] [place] ?[address] Specimen (Source) Anatomical Collection Method Collection Time Re ceived Time Location / / Volume Laterality 04/26/1998 3:23 PM PAINTER SPRAY Mary Stewart MD LAB_1 Performing Organization Address City/State/ZIP Code Phon e Number HP CONVERSION Strep Group A Antigen Test (04/05/1998 10:52 AM PAINTER SPRAY) Analysis Performed At [facility] Time Signature Strep Group A Negative Negative HP CONVERSION Antigen Test Comment: Culture to follow. Specimen (Source) Anatomical Collection Method Collection Time Re ceived Time Location / / Volume Laterality 04/05/1998 10:52 AM PAINTER SPRAY Jaquan Montanez MD LAB_1 Performing Organization Address City/[facility]/ZIP Code Phon e Number HP CONVERSION (ABNORMAL) Beta Strep Followup (04/05/1998 10:52 AM PAINTER SPRAY) Analysis Performed At [facility] Time Signature Strep Screen SEE TEXT HP CONVERSION (A) Comment: Patient: MINO CLEMENTE Rapid Strep Follow up Culture @ ? Collected: ??[id number] ??1052 Source: Throat ?Processed: ??[id number] ??1054 ? 1C Final Report ------ ?[id number] ??1100 Beta Strep Group A Present. ICSI Pharyngitis guideline recommends Penicillin V potassium (Pen VK) in nonal lergic patients. If < 50 lbs, 250 mg PenVK BID for 10 day s. >=50 lbs, 500 mg PenVK BID for 10 days. @ = Rapid F/U Cult Performed at ??[address] [facility] [place] ?[address] Specimen (Source) Anatomical Collection Method Collection Time Re ceived Time Location / / Volume Laterality 04/05/1998 10:52 AM PAINTER SPRAY Jaquan Montanez MD LAB_1 Performing Organization Address City/State/ZIP Code Phon e Number HP CONVERSION Strep Group A Antigen Test (02/27/1998 10:38 AM PAINTER SPRAY) Analysis Performed At [facility] Time Signature Strep Group A Negative Negative HP CONVERSION Antigen Test Comment: Culture to follow. Specimen (Source) Anatomical Collection Method Collection Time Re ceived Time Location / / Volume Laterality 02/27/1998 10:38 AM PAINTER SPRAY Mary Stewart MD LAB_1 Performing Organization Address City/[facility]/ZIP Code Phon e Number HP CONVERSION Beta Strep Followup (02/27/1998 10:38 AM PAINTER SPRAY) P athologist Signature Strep Screen SEE TEXT HP CONVERSION Comment: Patient: MINO CLEMENTE Rapid Strep Follow up Culture @ ? Collected: ??[id number] ??1038 Source: Throat ?Processed: ??[id number] ??1040 ? 1C Final Report ------ ?[id number] ??1010 No beta hemolytic Strep group A isolated . @ = Rapid F/U Cult Performed at ??[address] [place] ?[address] Specimen (Source) Anatomical Collection Method Collection Time Re ceived Time Location / / Volume Laterality 02/27/1998 10:38 AM PAINTER SPRAY Mary Stewart MD LAB_1 Performing Organization Address [facility] Phon e Number HP CONVERSION (ABNORMAL) WBC, Blood (02/27/1998 9:03 AM PAINTER SPRAY) Analysis Performed At Patho logist Time Signature White Blood 3.4 (LL) 5.0 - 14.5 HP CONVERSION Cell Count K/cmm Specimen (Source) Anatomical Collection Method Collection Time Re ceived Time Location / / Volume Laterality 02/27/1998 9:03 AM PAINTER SPRAY Mary Stewart MD LAB_1 Performing Organization Address [facility] Phon e Number HP CONVERSION Hemoglobin, Blood (02/27/1998 9:03 AM PAINTER SPRAY) P athologist Signature Hemoglobin 13.9 11.5 - 15.0 HP CONVERSION gm/dL Specimen (Source) Anatomical Collection Method Collection Time Re ceived Time Location / / Volume Laterality 02/27/1998 9:03 AM PAINTER SPRAY Mary Stewart MD LAB_1 Performing Organization Address [facility] Code Phon e Number HP CONVERSION Platelets (02/27/1998 9:03 AM PAINTER SPRAY) P athologist Signature Platelet Count 266 150 - 450 HP CONVERSION k/cmm Specimen (Source) Anatomical Collection Method Collection Time Re ceived Time Location / / Volume Laterality 02/27/1998 9:03 AM PAINTER SPRAY Mary Stewart MD LAB_1 Performing Organization Address City/[facility] Code Phon e Number HP CONVERSION Morph Final Report (02/27/1998 9:03 AM PAINTER SPRAY) Patholo gist Method Time Signature Morphology SEE TEXT No normal HP CONVERSION Final Report range Comment: Patient: MINO CLEMENTE ?Morphology Pathology # ??[id number] ?Date Obtained: ? Date Received: DIAGNOSIS: ?1. ??Mild absolute neutropenia. ?2. ??Normal red cell numbers with rare red cell fragments noted. ?3. ??Platelets normal in number an d morphology. COMMENT: ?There is no evidence in the periph eral blood smear to suggest an etiology ?for this patient's absolute neutro penia. ??Recommend a complete blood count ?with automated differential after the patient recovers from the acute ?illness to document resolution of this finding. ??The presence of rare red ?cell fragments in the absence of t hrombocytopenia is of uncertain ?significance. ??However, an early presentation of thrombotic ?thrombocytopenia purpura/hemolytic uremic syndrome cannot be excluded. ?Clinical correlation is suggested. ??These findings are discussed with . ?Prosper 02/28/98. ?Gonzalo Aquino MD ?(electronic signature) MDM/MDM/dlk Date of Report: 02/28/98 REPORT TEXT: INDICES: ?WBC ? 3.6 ??k/cmm ?RBC ? 4.90 m/cmm ?HGB ?13.7 ??gm/dl ?HCT ?39.7 ??% ?MCV ?80.9 ??fl ?MCH ?27.9 ??pg ?MCHC ? 34.5 ??gm/dl ?RDW ?12.4 ??% ?PLT ? 226.0 ??k/cmm RED BLOOD CELL MORPHOLOGY: ?The red cells are normal in number and are overall normochromic ?normocytic. ??There is mild anisop oikilocytosis characterized by occasional ?elliptocytes and rare echinocytes. ??Scattered red cell fragments are noted ?on scanning. ??There are no signif icant increases in polychromasia or ?rouleaux formation. WHITE BLOOD CELLS (300 cell count): ?Neutrophils ?26.0 % ?Lymphocytes ?59.7 % ?Monocytes ? 7.7 % ?Eosinophils ? 6.3 % ?Basophils ? 0.3 % WHITE BLOOD CELL MORPHOLOGY: ?The leukocytes are decreased in nu mber. ??The neutrophils show a decrease ?in absolute number but are morphol ogically normal. ??There is no evidence ?of segmentation abnormality or dys granulopoiesis. ??The lymphocytes are ?normal in absolute number and show mild reactive changes including minimal ?cytoplasmic basophilia and rare gr anulated lymphocytes. ??The monocytes, ?eosinophils, basophils, and platel ets are normal in number and ?morphology. Specimen (Source) Anatomical Collection Method Collection Time Re ceived Time Location / / Volume Laterality 02/27/1998 9:03 AM PAINTER SPRAY Mary Stewart MD LAB_1 Performing Organization Address City/[facility]/ZIP Code Phon e Number HP CONVERSION Strep Group A Antigen Test (01/26/1998 3:25 PM CDT) Analysis Performed At Patho logist Time Signature Strep Group A Negative Negative HP CONVERSION Antigen Test Comment: Culture to follow. Specimen (Source) Anatomical Collection Method Collection Time Re ceived Time Location / / Volume Laterality 01/26/1998 3:25 PM CDT Rivera Izquierdo MD LAB_1 Performing Organization Address City/[facility]/ZIP Code Phon e Number HP CONVERSION Beta Strep Followup (01/26/1998 3:25 PM CDT) P athologist Signature Strep Screen SEE TEXT HP CONVERSION Comment: Patient: MINO CLEMENTE Willie Rapid Strep Follow up Culture @ ? Collected: ?1525 Source: Throat ?Processed: ?[id number] ? 1C Final Report ------ ?09 No beta hemolytic Strep group A isolated . @ = Rapid F/U Cult Performed at [address] [place] ?[address] Specimen (Source) Anatomical Collection Method Collection Time Re ceived Time Location / / Volume Laterality 01/26/1998 3:25 PM CDT Rivera Izquierdo MD LAB_1 Performing Organization Address [facility] Phon e Number HP CONVERSION Strep Group A Antigen Test (11/16/1997 11:56 AM CDT) Analysis Performed At [facility] Time Signature Strep Group A Negative Negative HP CONVERSION Antigen Test Comment: Culture to follow. Specimen (Source) Anatomical Collection Method Collection Time Re ceived Time Location / / Volume Laterality 11/16/1997 11:56 AM CDT Rivera Izquierdo MD LAB_1 Performing Organization Address [facility] Phon e Number HP CONVERSION Beta Strep Followup (11/16/1997 11:56 AM CDT) athologist Signature Strep Screen SEE TEXT HP CONVERSION Comment: Patient: MINO CLEMENTE Rapid Strep Follow up Culture @ ? Collected: ??[id number] ??1156 Source: Throat ?Processed: ??[id number] ??1158 ? 1C Final Report ------ ?[id number] ??0913 No beta hemolytic Strep group A isolated . @ = Rapid F/U Cult Performed at [address] [place] ?[address] Specimen (Source) Anatomical Collection Method Collection Time Re ceived Time Location / / Volume Laterality 11/16/1997 11:56 AM CDT Rivera Izquierdo MD LAB_1 Performing Organization Address [facility] Phon e Number HP CONVERSION Strep Group A Antigen Test (08/31/1997 12:07 PM CDT) Analysis Performed At [facility] Time Signature Strep Group A Negative Negative HP CONVERSION Antigen Test Comment: Culture to follow. Specimen (Source) Anatomical Collection Method Collection Time Re ceived Time Location / / Volume Laterality 08/31/1997 12:07 PM CDT Mary Stewart MD LAB_1 Performing Organization Address City/[facility] Code Phon e Number HP CONVERSION Beta Strep Followup (08/31/1997 12:07 PM CDT) athologist Signature Strep Screen SEE TEXT HP CONVERSION Comment: Patient: MINO CLEMENTE Willie Rapid Strep Follow up Culture @ ? Collected: ??[id number] ??1207 Source: Throat ?Processed: ??[id number] ??1209 Final Report ------ ?0732 No beta hemolytic Strep group A isolated . @ = Rapid F/U Cult Performed at [address] [place] [place] ?[address] Specimen (Source) Anatomical Collection Method Collection Time Re ceived Time Location / / Volume Laterality 08/31/1997 12:07 PM CDT Mary Stewart MD LAB_1 Performing Organization Address City/State/ZIP Code Phon e Number HP CONVERSION Beta Strep Resp Cult (08/01/1997 4:43 PM CDT) P athologist Signature Strep Screen SEE TEXT HP CONVERSION Comment: Patient: MINO CLEMENTE Culture Strep Screen, Throat @ ?Collected: ??[id number] ??1643 Source: Throat ?Processed: ??[id number] ??1644 ? HELENA Final Report ------ ?[id number] ??0812 No beta hemolytic Strep group A isolated . @ = Strep Screen Performed at [address] [place] ?[address] Specimen (Source) Anatomical Collection Method Collection Time Re ceived Time Location / / Volume Laterality 08/01/1997 4:43 PM CDT Mary Stewart MD LAB_1 Performing Organization Address City/State/ZIP Code Phon e Number HP CONVERSION (ABNORMAL) Beta Strep Resp Cult (07/11/1997 4:46 PM PAINTER SPRAY) Analysis Performed At Patho logist Time Signature Strep Screen SEE TEXT HP CONVERSION (A) Comment: Patient: CUAUHTEMOC MINO Tapia Culture Strep Screen, Throat @ ?Collected: ??[id number] ??1646 Source: THROAT ?Processed: ??[id number] ??1649 ? Throat ??,, Final Report ------ ?105 Beta Strep Group A Present. ICSI Pharyngitis guideline recommends Penicillin V potassium (Pen VK) in nonal lergic patients. If < 50 lbs, 250 mg PenVK BID for 10 day s. >=50 lbs, 500 mg PenVK BID for 10 days. @ = Strep Screen Performed at [address] [place] ?[address] Specimen (Source) Anatomical Collection Method Collection Time Re ceived Time Location / / Volume Laterality 07/11/1997 4:46 PM PAINTER SPRAY Mary Stewart MD LAB_1 Performing Organization Address City/State/ZIP Code Phon e Number HP CONVERSION (ABNORMAL) Beta Strep Resp Cult (06/26/1997 12:09 PM PAINTER SPRAY) Analysis Performed At Patho logist Time Signature Strep Screen SEE TEXT HP CONVERSION (A) Comment: Patient: MINO CLEMENTE Culture Strep Screen, Throat @ ?Collected: ?1209 Source: Throat ?Processed: ?121 ? 1V Final Report ------ ?[id number] ??1123 Beta Strep Group A Present. ICSI Pharyngitis guideline recommends Penicillin V potassium (Pen VK) in nonal lergic patients. If < 50 lbs, 250 mg PenVK BID for 10 day s. >=50 lbs, 500 mg PenVK BID for 10 days. @ = Strep Screen Performed at [address] [place] ?[address] Specimen (Source) Anatomical Collection Method Collection Time Re ceived Time Location / / Volume Laterality 06/26/1997 12:09 PM PAINTER SPRAY Jolie Cazares MD LAB_1 Performing Organization Address [facility] Phon e Number HP CONVERSION Strep Group A Antigen Test (05/11/1997 4:58 PM PAINTER SPRAY) Analysis Performed At Patho logist Time Signature Strep Group A Negative Negative HP CONVERSION Antigen Test Comment: Culture to follow. Specimen (Source) Anatomical Collection Method Collection Time Re ceived Time Location / / Volume Laterality 05/11/1997 4:58 PM PAINTER SPRAY Mary Stewart MD LAB_1 Performing Organization Address [facility] Phon e Number HP CONVERSION (ABNORMAL) Beta Strep Followup (05/11/1997 4:58 PM PAINTER SPRAY) Analysis Performed At Patho logist Time Signature Strep Screen SEE TEXT HP CONVERSION (A) Comment: Patient: MINO CLEMENTE Rapid Strep Follow up Culture @ ? Collected: ??[id number] ??1658 Source: Throat ?Processed: ??[id number] ??1703 Final Report ------ ?[id number] ??1148 Beta Strep Group A Present. Pharyngitis CQI Grp recommends for nonal lergic patients: If < 50 lbs, 250 mg PenVK BID for 10 day s. >=50 lbs, 500 mg PenVK BID for 10 days. @ = Rapid F/U Cult Performed at ??[address], [place], [place] ?[address] Specimen (Source) Anatomical Collection Method Collection Time Re ceived Time Location / / Volume Laterality 05/11/1997 4:58 PM PAINTER SPRAY Mary Stewart MD LAB_1 Performing Organization Address City/State/ZIP Code Phon e Number HP CONVERSION documented in this encounter Visit Diagnoses Not on filedocumented in this encounter Care Teams Shingle Catcher Relationship Specialty Start Date End Date Brisa Smith PA-C PCP - General 07/30/10 04/18/15 [address] [place], [place] [address] documented as of this encounter
--- OUTSIDE RECORDS SUMMARY | 2022-02-01 07:50 | XMS_ITS | Encounter Summary ---
:1990 Author Organization [facility] Address [address], [place] [address] Care Team Providers Name Role Phone Brisa Smith PA-C Primary Care Provider Encounter Details Date Type Department Care Team Description 05/10/2004 Office Visit [place] [facility], Declan5 Kaitlin Stern APR[place], [place] [address] [address]ian [phone] [place] [phone] (Wo rk) Social History Tobacco Use Types Packs/Day Years Used Date Smoking Tobacco: Never Assessed Sex Assigned at Date Recorded Not on file documented as of this encounter Progress Notes Lillian Rosas APRN, CNP - 05/10/2004 12:01 AM CST Progress Notes signed by Lillian Rosas APRN, CNP at 05/15/04 1714 Author: JOVANNA Antonio Service: (none) Author Type: Nurse Practitioner Filed: 08/17/10 0339 Note Time: 05/10/04 0001 Status: Signed Crack Off Person: JOVANNA Antonio (Nurse Practitioner) NAME: MINO POSADAS MR: [id number] ACCT: [id number] VISIT: [id number] DICTATING CLINICIAN: JOVANNA ANTONIO JOB: [id number] CLINIC PROGRESS NOTE DATE OF VISIT: 05/10/2004 SUBJECTIVE: Mino is in today with a three-week history of a deep, persistent cough. Mom says that cough has gone on since Be[place]. She has really never felt good during the last three weeks. She intermittently complains of a sore throat and headache but thinks that that is from coughing so much. She has been afebrile. Appetite and activity level have been okay. Sleep is interrupted because of the cough. She has not had any episodes of vomiting. Does feel short of breath sometimes with exercise. Past health history is significant for wheezing this fall when she was diagnosed with pneumonia and used an inhaler for a couple of weeks. CURRENT MEDICATIONS: None. ADR/ALLERGIES: SULFA AND PENICILLIN. OBJECTIVE: VS: T: 98.3. Wt: 132 lb. Mino looks well. Eyes are clear, without injection. TMs clear. Nose patent. Pharynx clear. Neck supple. Lungs are clear to auscultation. Chest, PA and lateral, appears clear. ASSESSMENT: Persistent cough. Rule out pertussis. PLAN: Pertussis PCR sent. Patient started on Zithromax 10 mg per kilo daily times five days. Will call with pertussis results. EAC:[id number] C: 05/10/04 21:08 DOCUMENT: [id number] LEVEL GAME DESIGNER documented in this encounter Plan of Treatment Not on filedocumented as of this encounter Procedures Procedure Name Priority Date/Time Associated Diagnosis Comme nts XR CHEST 2 VIEWS Routine 05/10/2004 9:51 AM Resul ts for this MID LEVEL GAME DESIGNER procedure are i n the results section. documented in this encounter Results XR Chest 2 Views (05/10/2004 9:51 AM MID LEVEL GAME DESIGNER) Anatomical Region Laterality Modality Chest, Lung Other Specimen (Source) Anatomical Location Collection Method / Collectio n Time Received Time / Laterality Volume Narrative 05/10/2004 9:51 AM MID LEVEL GAME DESIGNER Impression: Normal chest. Findings: CH1 The cardiovascular structures appear nor mal. ??No evidence of active pulmonary disease. Dictating SANJEEV RICO RADIOLOGIST Procedure Note Leena Zelaya - 06/29/2016 Impression: Normal chest. Findings: CH1 The cardiovascular structures appear nor mal. No evidence of active pulmonary disease. Dictating SANJEEV RICO RADIOLOGIST Lillian Rosas FLOOR HELPER, GEAR CUTTER RAD GD documented in this encounter Visit Diagnoses Not on filedocumented in this encounter Care Teams Senior Air Director Relationship Specialty Start Date End Date Brisa Smith PA-C PCP - General 07/30/10 04/18/15 [address] [place] [address] documented as of this encounter
--- OUTSIDE RECORDS SUMMARY | 2022-02-01 07:50 | XMS_ITS | Encounter Summary ---
:1990 Author Organization [facility] Address [address] [address] Care Team Providers Name Role Phone Brisa Smith PA-C Primary Care Provider Encounter Details Date Type Department Care Team Description 10/12/2003 PN Conversion Only HELENA CONVERSION Ralph, [address] Stern APRN, [place] [address] [address] [place] [address] (Wo rk) Social History Tobacco Use [...] 10/12/2003 3:20 PM CDT Lillian Rosas APRN, DIRECTOR OF REAL ESTATE LAB_1 Performing Organization Address City/State/ZIP Code Phon e Number HP CONVERSION documented in this encounter Visit Diagnoses Not on filedocumented in this encounter Care Teams Lock Installer Relationship Specialty Start Date End Date Brisa Smith PA-C PCP - General 07/30/10 04/18/15 [address] [place] [address] documented as of this encounter
--- OUTSIDE RECORDS SUMMARY | 2022-02-01 07:50 | XMS_ITS | Encounter Summary ---
:1990 Author Organization [facility] Address [address] [address] Care Team Providers Name Role Phone Brisa Smith PA-C Primary Care Provider Reason for Visit Reason Comments Other Encounter Details Date Type Department Care Team Description 08/01/2004 Telephone [facility] Rita Carlisle MD Other [facility]5 [place] [address] [place] [address] [place] [address] [phone] (Wo rk) Social History Tobacco Use Types Packs/Day Years Used Date Smoking Tobacco: Never Assessed Sex Assigned at Date Recorded Not on file documented as of this encounter Progress Notes Center, Message - 08/01/2004 7:52 AM CDT Phone Note filed by [email or web address] at 08/13/10 6301 Author: [email or web address] Service: (none) Author Type: (none) Filed: 08/13/10 1731 Note Time: 08/01/04751 Status: Signed Tile Burner: [email or web address] X-ray calling as requested, right wrist is negative. Created on 01Aug2004 7:52am by DAWSON DILLON M On 01Aug2004 1:34pm GRISELDA GIBSON wrote: Talked to mom and results of x-ray given. Acknowledged by RITA VILLEGAS on 8:04am ING TABLE OPERATOR documented in this encounter Plan of Treatment Not on filedocumented as of this encounter Visit Diagnoses Not on filedocumented in this encounter Care Teams Telemetry Rn Relationship Specialty Start Date End Date Brisa Smith PA-C PCP - General 07/30/10 04/18/15 [address] [place] [address] documented as of this encounter
--- OUTSIDE RECORDS SUMMARY | 2022-02-01 07:50 | XMS_ITS | Encounter Summary ---
:1990 Author Organization [place] Address [address] [place] [address] Care Team Providers Name Role Phone No Ref-Primary, Physician Primary Care Provider [phone] Encounter Details Date Type Department Care Team [...] on filedocumented in this encounter Care Teams Family Coach Relationship Specialty Start Date End Date No Ref-Primary, Physician PCP - General 11/16/18 documented as of this encounter
--- OUTSIDE RECORDS SUMMARY | 2022-02-01 07:50 | XMS_ITS | Encounter Summary ---
:1990 Author Organization [facility] Address [address] [address] Care Team Providers Name Role Phone Brisa Smith PA-C Primary Care Provider Encounter Details Date Type Department Care Team Description 07/10/2004 PN Conversion Only [place] [address] [address] [place] [address] Social History Tobacco Use Types Packs/Day Years Used Date Smoking Tobacco: Never Assessed Sex Assigned at Date Recorded Not on file documented as of this encounter Plan of Treatment Not on filedocumented as of this encounter Visit Diagnoses Not on filedocumented in this encounter Care Teams Makeup Sales Advisor Relationship Specialty Start Date End Date Brisa Smith PA-C PCP - General 07/30/10 04/18/15 [address] [place], [place] [address] documented as of this encounter
--- OUTSIDE RECORDS SUMMARY | 2022-02-01 07:50 | XMS_ITS | Encounter Summary ---
:1990 Author Organization [place] Address [facility] [place] [address] Care Team Providers Name Role Phone No Ref-Primary, Physician Primary Care Provider [phone] Reason for Visit Reason Comments Ultrasound echo-IVF Encounter Details Date Type Department Care Team Description 12/18/2021 Office Visit [facility] Juan Luis Chirinos resulting Maternal MD Nader from in vitro Medicine Center [address] fertilizat ion in second [place] [address] trimester (Primary Dx) [address] [place], [place] [address] [address] [place], [place] [phone] [address] (Work) [phone] Social History Tobacco Use Types Packs/Day Years [...] for details of today's US at the [facility]. Juan Luis Chirinos MD Maternal- Medicine documented in this encounter Plan of Treatment Not on filedocumented as of this encounter Visit Diagnoses Diagnosis resulting from in vitro fertil ization in second trimester - Primary documented in this encounter Care Teams Oil Spot Washer Relationship Specialty Start Date End Date No Ref-Primary, Physician PCP - General 11/16/18 documented as of this encounter
--- OUTSIDE RECORDS SUMMARY | 2022-02-01 07:50 | XMS_ITS | Encounter Summary ---
:1990 Author Organization [email or web address] Address [address] [address] Care Team Providers Name Role Phone Brisa Smith PA-C Primary Care Provider Reason for Visit Reason Comments Other Encounter Details Date Type Department Care Team Description 04/09/2004 Telephone [facility] Brittany Turner [address] [place] [address] Social History Tobacco Use Types Packs/Day Years Used Date Smoking Tobacco: Never Assessed Sex Assigned at Date Recorded Not on file documented as of this encounter Progress Notes Center, Message - 04/09/2004 1:20 PM CST Phone Note filed by [email or web address] at 08/13/10 0494 Author: [email or web address] Service: (none) Author Type: (none) Filed: 08/13/10 8099 Note Time: 04/09/04 1320 Status: Signed Transportation Planner: [email or web address] MESSAGE TO CARE TEAM NAME OF CALLER:Rene (Mom) NAME OF CLINICIAN:Ashkan Hernandes MESSAGE:Pt. had a culture done 03/30. Mom would like to have the results. PHARMACY NAME: PHARMACY PHONE #: CALL BACK PHONE #:[phone] BEST TIME TO CALL BACK:any Is it [...] on filedocumented in this encounter Care Teams Board Hammer Operator Relationship Specialty Start Date End Date Brisa Smith PA-C PCP - General 07/30/10 04/18/15 [address] [place] [address] documented as of this encounter
--- OUTSIDE RECORDS SUMMARY | 2022-02-01 07:50 | XMS_ITS | Encounter Summary ---
:1990 Author Organization [facility] Address [address] [address] Care Team Providers Name Role Phone Brisa Smith PA-C Primary Care Provider Encounter Details Date Type Department Care Team Description 07/10/2004 Office Visit [facility] Ailin Piña [place] [address] [place] [address] [phone] Social History Tobacco Use Types Packs/Day Years [...] 0452 Note Time: 07/10/04 0001 Status: Signed Legal Instruments Examiner: Ailin Piña MD (Physician) NAME: MINO POSADAS MR: [id number] ACCT: [id number] VISIT: [id number] DICTATING CLINICIAN: AILIN PIÑA MD JOB: [id number] CLINIC PROGRESS NOTE DATE OF VISIT: 07/10/2004 [...] for five days. FINAL DIAGNOSIS: Otitis media. STR:[id number] C: 07/11/04 15:45 DOCUMENT: [id number] documented in this encounter Plan of Treatment Not on filedocumented as of this encounter Visit Diagnoses Not on filedocumented in this encounter Care Teams Home Health Scheduler Relationship Specialty Start Date End Date Brisa Smith PA-C PCP - General 07/30/10 04/18/15 [address] [place] [address] documented as of this encounter
--- OUTSIDE RECORDS SUMMARY | 2022-02-01 07:50 | XMS_ITS | Encounter Summary ---
:1990 Author Organization [facility] Address [address], [place] [address] Care Team Providers Name Role Phone Brisa Smith PA-C Primary Care Provider Encounter Details Date Type Department Care Team Description 01/23/2004 Office Visit [facility] Rita Carlisle MD [facility] [place] [address] [phone] (Wo rk) Social History Tobacco Use Types [...] 0138 Note Time: 01/23/04 0001 Status: Signed Casey Saw Operator: Rita Ruiz MD (Physician) [facility] Acute Clinic Visit IMPRESSION: URI Reactive Airways, [...] on filedocumented in this encounter Care Teams Electrolysis Operator Relationship Specialty Start Date End Date Brisa Smith PA-C PCP - General 07/30/10 04/18/15 [address] [place] [address] documented as of this encounter
--- OUTSIDE RECORDS SUMMARY | 2022-02-01 07:50 | XMS_ITS | Encounter Summary ---
:1990 Author Organization [facility] Address [address] [place] [address] Care Team Providers Name Role Phone Brisa Smith PA-C Primary Care Provider Encounter Details Date Type Department Care Team Description 07/31/2004 Office Visit [facility] Rita Carlisle MD [facility] [place] [address] [place] [address] [phone] (Wo rk) Social History Tobacco Use Types [...] 0515 Note Time: 07/31/04 0001 Status: Signed Enterer: Rita Ruiz MD (Physician) NAME: MINO POSADAS MR: [id number] ACCT: [id number] VISIT: [id number] DICTATING CLINICIAN: RITA RUIZ MD JOB: [id number] CLINIC PROGRESS NOTE DATE OF VISIT: 07/31/2004 [...] persistent pain, she should follow up p.r.n. PNR:[id number] C: 08/01/04 13:34 DOCUMENT: [id number] documented in this encounter Plan of Treatment [...] on filedocumented in this encounter Care Teams Cook Starch Relationship Specialty Start Date End Date Brisa Smith PA-C PCP - General 07/30/10 04/18/15 [address] [place] [address] documented as of this encounter
--- OUTSIDE RECORDS SUMMARY | 2022-02-01 07:50 | XMS_ITS | Encounter Summary ---
:1990 Author Organization [facility] Address [address], [place] [address] Care Team Providers Name Role Phone Brisa Smith PA-C Primary Care Provider Encounter Details Date Type Department Care Team Description 07/10/2004 PN Conversion Only [place] [address] [address] [place] [address] Social History Tobacco Use Types Packs/Day Years Used Date Smoking Tobacco: Never Assessed Sex Assigned at Date Recorded Not on file documented as of this encounter Plan of Treatment Not on filedocumented as of this encounter Visit Diagnoses Not on filedocumented in this encounter Care Teams Electrical Design Technician Relationship Specialty Start Date End Date Brisa Smith PA-C PCP - General 07/30/10 04/18/15 [address] [place], [place] [address] documented as of this encounter
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
--- OUTSIDE RECORDS SUMMARY | 2022-02-01 07:50 | XMS_ITS | Encounter Summary ---
:1990 Author Organization [facility] Address [address], [place] [address] Care Team Providers Name Role Phone Brisa Smith PA-C Primary Care Provider Encounter Details Date Type Department Care Team Description 03/28/2004 PN Conversion Only [place]LE[place] CONVERSION Mary Hernandes, [address] [place] [address] [address] [place] [address] (Wo rk) Social History Tobacco Use Types Packs/Day Years Used Date Smoking Tobacco: Never Assessed Sex Assigned at Date Recorded Not on file documented as of this encounter Plan of Treatment Not on filedocumented as of this encounter Visit Diagnoses Not on filedocumented in this encounter Care Teams Lead Atg Developer Relationship Specialty Start Date End Date Brisa Smith PA-C PCP - General 07/30/10 04/18/15 [address] [place], [place] [address] documented as of this encounter
--- OUTSIDE RECORDS SUMMARY | 2022-02-01 07:51 | XMS_ITS | Encounter Summary ---
:1990 Author Organization [place] Address [address] [place] [address] Care Team Providers Name Role Phone Unavailable [...] Procedure Name Priority Date/Time Associated Diagnosis Comme [facility] CHEST TWO VIEWS, STAT 12/28/2003 12:40 AM [...]
--- OUTSIDE RECORDS SUMMARY | 2022-02-01 07:51 | XMS_ITS | Encounter Summary ---
:1990 Author Organization [place] Address [address] [place] [address] Care Team Providers Name Role Phone Unavailable Primary Care Provider Unavailable Encounter Details Date Type Department Care Team Description 10/19/2003 Emergency room Daria Cavanaugh MD EMERG[facility]Y PHYS[facility] [address] [place], [place] [address] (Wo rk) Social History [...] EM155 _ DARIA CAVANAUGH MD MT: Document: [id number] [place], [place] Name: POSADAS, MINO J EMERGENCY ROOM ENCOUNTER Page 2 of 2 LCN: SILVIA DSC: 10/19/2003 [place], [place] Name: MR#: : Admit Date: MINO POSADAS [id number] 1990 10/19/2003 Doctor: DARIA CAVANAUGH MD EMERGENCY ROOM ENCOUNTER Page 1 of 2 documented in this encounter Plan of Treatment Not on filedocumented as of this encounter Visit Diagnoses Not on filedocumented in this encounter
--- OUTSIDE RECORDS SUMMARY | 2022-02-01 07:51 | XMS_ITS | Encounter Summary ---
:1990 Author Organization [place] Address [address] [place] [address]. [place] [address] Care Team Providers Name Role Phone No Ref-Primary, Physician Primary Care Provider [phone] Reason for Referral Diagnostic Imaging Ultrasound (Routine) - Pending Review Specialty Diagnoses / Procedures Referred By Contact Refer red To Contact Diagnoses resulting from in vitro fertilization in second trimester Juan Luis Chirinos MD Procedures MFM Read Screen Echo Single [address] [place], [place] [address] Referral ID Status Reason Start Date Expiration Date Visits V isits Requested Authorized [id number] Pending 11/20/2021 11/20/2022 1 1 Review Reason for Visit Reason Comments Ultrasound L2- IVF Encounter Details Date Type Department Care Team Description 11/20/[address] [facility] Spencer Villagomez [address] [place], [place] [address] resulting Maternal Juan Luis Chirinos MD [address] [place] [address] from in vitro Medicine Center fertilizatio n in second [place] trimester (Primary Dx) [address] [facility] [facility] [address] [place] [address] Social History Tobacco Use Types [...] Progress Notes Juan Luis Chirinos MD - 11/20/2021 10:45 AM CDT Please see Imaging tab under Chart Review for details of today's US at the [facility]. Juan Luis Chirinos MD Maternal- Medicine documented in this encounter Plan of Treatment Not on filedocumented as of this encounter Results [facility] Read Screen Echo Single (12/18/2021 10:02 AM [...] Study Date: 0 12/18/2021 9:18am Pat. NO: [id number] Referring ??: SPENCER VILLAGOMEZ Site: [facility] Data Analytics Specialist: Nancie Bailey RD MS : 1990 Age: 31 INDICATION In vitro fertilization METHOD Grayscale imaging, Doppler echocardiogra phy color flow velocity mapping and Doppler echocardiography pulsed wave and or wave with spectral display were used to assess cardiac structures for wilner goode [facility] echocardiogram. View: Sufficient Tubbs . Number of [...] RVOT view ?normal 3-vessel view ? normal 3-eruqnt-jiflejb view ? normal High short axis view [...] Esperanza. Name:Geovanni KELLY Date:11/27 9:18am Pat. NO: [id number] MD:DYLAN ERA NESS [facility]her:Nancie Bailey RDMS :1990Age:31 INDICATION In vitro fertilization METHOD Grayscale imaging, Doppler echocardiogra phy color flow velocity mapping and Doppler echocardiography pulsed wave and or wave with spectral display were used to assess cardiac structures for carlosdamian rupa [facility] echocardiogram. View: Sufficient Tubbs . Number of [...] normal RVOT view normal 3-vessel view normal 2-ayodgc-xcbjden view normal High short axis view normal [...] of the aorta. Juan Luis Chirinos MD [facility] ORDERABLES documented in this encounter Visit Diagnoses Diagnosis resulting from in vitro fertil ization in second trimester - Primary resulting from in vitro fertil ization in second trimester documented in this encounter Care Teams Senior Systems Engineer Relationship Specialty Start Date End Date No Ref-Primary, Physician PCP - General 11/16/18 documented as of this encounter
--- OUTSIDE RECORDS SUMMARY | 2022-02-01 07:51 | XMS_ITS | Encounter Summary ---
:1990 Author Organization [place] Address [address] [place] [address] Care Team Providers Name Role Phone No Ref-Primary, Physician Primary Care Provider [phone] Encounter Details Date Type Department Care Team Description 11/16/2018 Travel Social History Tobacco Use Types Packs/Day Years Used Date Never Assessed Sex Assigned at Date Recorded Not on file documented as of this encounter Plan of Treatment Not on filedocumented as of this encounter Visit Diagnoses Not on filedocumented in this encounter Care Teams Flagger Relationship Specialty Start Date End Date No Ref-Primary, Physician PCP - General 11/16/18 documented as of this encounter
--- OUTSIDE RECORDS SUMMARY | 2022-02-01 07:51 | XMS_ITS | Encounter Summary ---
:1990 Author Organization [place] Address [address] [place] [address] Care Team Providers Name Role Phone No Ref-Primary, Physician Primary Care Provider [phone] Reason for Referral Diagnostic Imaging Ultrasound (Routine) - Pending Review Specialty Diagnoses / Procedures Referred By Contact Refer red To Contact Diagnoses related condition, antepartum , July Procedures [facility] MEDICAL [address] [address] Referral ID Status Reason Start Date Expiration Date Visits V isits Requested Authorized [id number] Pending 11/01/2021 11/01/2022 1 1 Review onsultation (Routine: Next available opening) - Pending Review Specialty Diagnoses / Procedures Referred By Contact Refer red To Contact Diagnoses related condition, antepartum July Rh Maternal Med [facility] MEDICAL [address] [facility] [address] [place] [address] [place] [address] Phone: Fax: Referral ID Status Reason Start Date Expiration Date Visits V isits Requested Authorized [id number] Pending 11/01/2021 11/01/2022 1 1 Review Encounter Details Date Type Department Care Team Description 11/01/[address] [facility] [place], Ap ril related Maternal [facility] condition, [facility] MEDICAL antepartum (Primary [place] Dx) [address] [place], [place] [address] [address] [place], [place] [phone] [address] (Work) [phone] Social History Tobacco Use Types Packs/Day Years Used Date Never Assessed Sex Assigned at Date Recorded Not on file documented as of this encounter Plan of Treatment Scheduled Referrals Name Type Priority Associated Diagnoses Order [facility] Referral Routine: Next related Expe cted: Referral - available opening condition, 11/01/2021 antepartum (Approximate), Expires: 04/30/2022 documented as of this encounter Results [facility] US Comprehensive Single (11/20/2021 11:00 AM CDT) [...] Study Date: 0 11/20/2021 10:05am Pat. NO: [id number] Referring ??MD: SPENCER VILLAGOMEZ Site: [facility] Actionscript Developer: Anitha Love RDMS : 1990 Age: 31 [...] lb 10 ? oz EFW by ?Hadlock (SGE-TH-HN-FL) Head / Face / Neck Biometry: Ui Software Developer ? 5.8 ? mm CM ?5.0 ? [...] cava. Inferior vena cava. 3-vessel ? view. 9-eacwqk-faiekos view. Cardiac position. Cardiac size. Cardiac rhythm. [...] have scheduled the patient to return to [facility] in 4 weeks for a echo due [...] Esperanza. Name:Geovanni KELLY Date:10/27 10:05am Pat. NO: [id number] MD:[facility] Sheriff :1990Age:31 INDICATION In Vitro Fertilization METHOD [...] 0 lb 10 oz EFW by Hadlock (YDI-VF-RT-FL) Head / Face / Neck Biometry: Ui Software Developer 5.8 mm CM 5.0 mm Nasal bone [...] vena cava. Inferior vena cava. 3-vessel view. 7-gqrqkb-nryihxm view. Cardiac po sition. Cardiac size. Cardiac [...] have scheduled the patient to return to [facility] in 4 weeks for a echo due [...] No markers for aneuploidy seen. July Benny [facility] US ORDERABLES documented in this encounter Visit Diagnoses Diagnosis related condition, antepartum - Primary related condition, antepartum documented in this encounter Care Teams Kiln Remover Relationship Specialty Start Date End Date No Ref-Primary, Physician PCP - General 11/16/18 documented as of this encounter
--- OUTSIDE RECORDS SUMMARY | 2022-02-01 07:51 | XMS_ITS | Encounter Summary ---
:1990 Author Organization [place] Address [address] [place] [address] Care Team Providers Name Role Phone Unavailable [...] unusual pets. No travel to the [facility]. No unusual molds in the house. [...] concern. [id number]_ RANJITH DIAZ MD MT: Document: [id number] [place], [place] Name: MINO POSADAS EMERGENCY ROOM ENCOUNTER Page 2 of 2 LCN: IGNACIA DSC: 12/27/2003 [place], [place] Name: MR#: : Admit Date: SERA POSADASSARMAD Tapia -32 1990 12/27/2003 Doctor: RANJITH DIAZ MD EMERGENCY ROOM ENCOUNTER Page 1 of 2 documented in this encounter Plan of Treatment Not on filedocumented as of this encounter Visit Diagnoses Not on filedocumented in this encounter
--- OUTSIDE RECORDS SUMMARY | 2022-02-01 07:51 | XMS_ITS | Encounter Summary ---
:1990 Author Organization [place] Address [address] [place] [address] Care Team Providers Name Role Phone No Ref-Primary, Physician Primary Care Provider [phone] Encounter Details Date Type Department Care Team [...] on filedocumented in this encounter Care Teams Brake Coupler Dinkey Relationship Specialty Start Date End Date No Ref-Primary, Physician PCP - General 11/16/18 documented as of this encounter
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
--- OUTSIDE RECORDS SUMMARY | 2022-02-01 07:51 | XMS_ITS | Encounter Summary ---
:1990 Author Organization [place] Address [address] [place] [address] Care Team Providers Name Role Phone No Ref-Primary, Physician Primary Care Provider [phone] Encounter Details Date Type Department Care Team Description 10/22/2021 Medical Correspondence [facility] Scan, REFERRAL Health Info [facility] Non-Provider [facility] [address] [place] [address] Social History Tobacco Use Types Packs/Day Years Used Date Never Assessed Sex Assigned at Date Recorded Not on file documented as of this encounter Plan of Treatment Not on filedocumented as of this encounter Visit Diagnoses Not on filedocumented in this encounter Care Teams Wrestling Coach Relationship Specialty Start Date End Date No Ref-Primary, Physician PCP - General 11/16/18 documented as of this encounter
--- OUTSIDE RECORDS SUMMARY | 2022-02-01 07:51 | XMS_ITS | Encounter Summary ---
:1990 Author Organization [place] Address [address] [place] [address] Care Team Providers Name Role Phone No Ref-Primary, Physician Primary Care Provider [phone] Reason for Referral Diagnostic Imaging Ultrasound (Routine) - Pending Review Specialty Diagnoses / Procedures Referred By Contact Refer red To Contact Diagnoses resulting from in vitro fertilization in second trimester Juan Luis Chirinos MD Procedures MFM Read Screen Echo Single [address] [place], [place] [address] Referral ID Status Reason Start Date Expiration Date Visits V isits Requested Authorized [id number] Pending 11/20/2021 11/20/2022 1 1 Review Reason for Visit Diagnostic Imaging Ultrasound (Routine) - Pending Review Specialty Diagnoses / Procedures Referred By Contact Refer red To Contact Diagnoses resulting from in vitro fertilization in second trimester Juan Luis Chirinos MD Procedures MFM Read Screen Echo Single [address] [place], [place] [address] Referral ID Status Reason Start Date Expiration Date Visits V isits Requested Authorized [id number] Pending 11/20/2021 11/20/2022 1 1 Review Encounter Details Date Type Department Care Team Description 12/18/[address] [facility] Pre gnancy resulting Maternal MD Nader from in vitro [facility] [address] fertilizat ion in [facility] 400 second trimester [address] [place], [place] [address] [address] [place], [place] [phone] [address] (Hgqv) [phone] Social History Tobacco Use Types Packs/Day Years [...] Name Priority Date/Time Associated Diagnosis Comme nts [facility] READ SCREENING Routine 12/18/2021 10:02 resultin g Results for this ECHO AM CDT from in vitro procedure are in PENG fertilization in the results second trimester section. documented in this encounter Results [facility] Read Screen Echo Single (12/18/2021 10:02 [...] SIGALA Study Date: 12/18/2021 9:18am Pat. NO: [id number] Referring ??MD: SPENCER VILLAGOMEZ Site: [facility] Change Control Analyst: Nancie Bailey RD MS : 1990 Age: 31 INDICATION In vitro fertilization METHOD Grayscale imaging, Doppler echocardiogra phy color flow velocity mapping and Doppler echocardiography pulsed wave and or wave with spectral display were used to assess cardiac structures for wilner goode [facility] echocardiogram. View: Sufficient Peng . Number of [...] RVOT view ?normal 3-vessel view ? normal 1-tjtlmq-dgirmpj view ? normal High short axis view [...] Pat. Name:Geovanni SIGALA Date:11/27 9:18am Pat. NO: [id number] MD:DYLAN ERA NESS [facility]aNncie Bailey RDMS :1990Age:31 INDICATION In vitro fertilization METHOD Grayscale imaging, Doppler echocardiogra phy color flow velocity mapping and Doppler echocardiography pulsed wave and or wave with spectral display were used to assess cardiac structures for carlosdamian saminas [facility] echocardiogram. View: Sufficient Peng . Number of [...] normal RVOT view normal 3-vessel view normal 6-ytbkqy-vxbuqyj view normal High short axis view normal [...] of the aorta. Juan Luis Chirinos MD [facility] ORDERABLES documented in this encounter Visit Diagnoses Diagnosis resulting from in vitro fertil ization in second trimester documented in this encounter Care Teams Champagne Maker Relationship Specialty Start Date End Date No Ref-Primary, Physician PCP - General 11/16/18 documented as of this encounter
--- OUTSIDE RECORDS SUMMARY | 2022-02-01 07:51 | XMS_ITS | Encounter Summary ---
:1990 Author Organization [place] Address [address] [place] [address]. [place] [address] Care Team Providers Name Role Phone No Ref-Primary, Physician Primary Care Provider [phone] Encounter Details Date Type Department Care Team Description 10/25/2021 Medical Correspondence [facility] Scan, Provide r MATERNAL Health Info [facility] MEDICINE CE NTER Srvcs PROVIDER SERVICE [address] [place] [address] REQUEST- OUTPATIENT [facility] [address] [place] [phone] Social History Tobacco Use Types Packs/Day Years Used Date Never Assessed Sex Assigned at Date Recorded Not on file documented as of this encounter Plan of Treatment Not on filedocumented as of this encounter Visit Diagnoses Not on filedocumented in this encounter Care Teams Academic Affairs Vice President Relationship Specialty Start Date End Date No Ref-Primary, Physician PCP - General 11/16/18 documented as of this encounter
--- OUTSIDE RECORDS SUMMARY | 2022-02-01 07:51 | XMS_ITS | Encounter Summary ---
:1990 Author Organization [place] Address [facility] [place] [address] Care Team Providers Name Role Phone No Ref-Primary, Physician Primary Care Provider Reason for Referral Diagnostic Imaging Ultrasound (Routine) - Pending Review Specialty Diagnoses / Procedures Referred By Contact Refer red To Contact Diagnoses related condition, antepartum Fit, July Procedures [place] [address] [place] [address] Referral ID Status Reason Start Date Expiration Date Visits V isits Requested Authorized [id number] Pending 11/01/2021 11/01/2022 1 1 Review Reason for Visit Diagnostic Imaging Ultrasound (Routine) - Pending Review Specialty Diagnoses / Procedures Referred By Contact Refer red To Contact Diagnoses related condition, antepartum Fitjuly Procedures [place] [address] [place] [address] Referral ID Status Reason Start Date Expiration Date Visits V isits Requested Authorized [id number] Pending 11/01/2021 11/01/2022 1 1 Review Encounter Details Date Type Department Care Team Description [facility]/20[facility]21 [facility] [place] [id number] [place] [id number] related Maternal Juan Luis Chirinos MD [address] [place] [address] condition, Medicine Center antepartum [place] [address] [facility] [address] [place] [address] Social History Tobacco Use Types [...] Procedure Name Priority Date/Time Associated Comments Diagnosis [facility] US COMPREHENSIVE Routine 11/20/2021 11:00 relate d Results for this SINGLE AM CDT condition, procedure are i n antepartum the results section. documented in this encounter Results [facility] US Comprehensive Single (11/20/2021 11:00 AM CDT) [...] KELLY Study Date: 11/20/2021 10:05am Pat. NO: [id number] Referring ??MD: SPENCER VILLAGOMEZ Site: [facility] Obstetrics Technician: Anitha Love RDMS : 1990 Age: 31 [...] lb 10 ? oz EFW by ?Hadlock (YDO-DT-OX-FL) Head / Face / Neck Biometry: Biophysics Professor ? 5.8 ? mm CM ?5.0 ? [...] cava. Inferior vena cava. 3-vessel ? view. 5-rjtwhi-iigfvax view. Cardiac position. Cardiac size. Cardiac rhythm. [...] have scheduled the patient to return to [facility] in 4 weeks for a echo due [...] Pat. Name:Geovanni KELLY Date:10/27 10:05am Pat. NO: [id number] MD:BTESY NESS Site:[place]her:NICK Sheriff :1990Age:31 INDICATION In Vitro [...] 0 lb 10 oz EFW by Hadlock (MVG-BF-UC-FL) Head / Face / Neck Biometry: Biophysics Professor 5.8 mm CM 5.0 mm Nasal bone [...] vena cava. Inferior vena cava. 3-vessel view. 4-kclugb-tllbevn view. Cardiac po sition. Cardiac size. Cardiac [...] have scheduled the patient to return to [facility] in 4 weeks for a echo due [...] 4) No markers for aneuploidy seen. [facility] documented in this encounter Visit Diagnoses Diagnosis related condition, antepartum documented in this encounter Care Teams Book Agent Relationship Specialty Start Date End Date No Ref-Primary, Physician PCP - General 11/16/18 documented as of this encounter
--- OUTSIDE RECORDS SUMMARY | 2022-02-01 07:51 | XMS_ITS | Encounter Summary ---
:1990 Author Organization [place] Address [address] [place] [address] Care Team Providers Name Role Phone No Ref-Primary, Physician Primary Care Provider [phone] Reason for Visit Reason Comments Abdominal Pain Encounter Details Date Type Department Care Team Description 11/16/2018 Emergency [facility] [place] Torsten Madden MD Acute abdominal pain; [facility] Emergency Dep t [facility] Adverse reaction to antibiot ic [address] [place], [place] [address] [employer] [address] [place] [address] [place], [place] [address] (Wo rk) Social History Tobacco Use Types [...] directed by your doctor today. Before using wnpk-qnp-gknxvot medications, ask your doctor and make sure [...] contain Tylenol?? (acetaminophen), including Vicodin??, Tylenol #3??, [place]??, Lortab??, and Percocet??. You should not take [...] be sent through Care Everywhere.Drug Reaction, Other (Swiss)documented in this encounter Medications at Time of [...] observations and the provider's statements to me. [facility] EMERGENCY DEPARTMENT Torsten Madden MD 11/16/18 0457 [...] UA with Microscopic (11/16/2018 3:00 AM CDT) [facility] Method Time Signature Color Urine Straw 11/16/2018 [facility] 3:14 AM [facility] Appearance Urine Clear 11/16/2018 [facility] 3:14 AM [facility] Glucose Urine Negative NEG^Negat 11/16/2018 [facility] raisa mg/dL 3:14 AM [facility] Bilirubin Urine Negative NEG^Negat 11/16/2018 [facility] raisa 3:14 AM [facility] Ketones Urine Negative NEG^Negat 11/16/2018 [facility] raisa mg/dL 3:14 AM [facility] Specific [place] 1.004 1.003 - 11/16/2018 [facility] Urine 1.035 3:14 AM [facility] Blood Urine Negative NEG^Negat 11/16/2018 [facility] raisa 3:14 AM [facility] pH Urine 5.5 5.0 - 7.0 11/16/2018 [facility] pH 3:14 AM [facility] Protein Albumin Negative NEG^Negat 11/16/2018 [facility] Urine raisa mg/dL 3:14 AM [facility] Urobilinogen Normal 0.0 - 2.0 11/16/2018 [facility] mg/dL mg/dL 3:14 AM [facility] Nitrite Urine Negative NEG^Negat 11/16/2018 [facility] raisa 3:14 AM [facility] Leukocyte Negative NEG^Negat 11/16/2018 [facility] Esterase Urine raisa 3:14 AM [facility] Source Midstream 11/16/2018 [place] Urine 3:01 AM [facility] WBC Urine 1 0 - 5 11/16/2018 [facility] /HPF 3:14 AM [facility] RBC Urine <1 0 - 2 11/16/2018 [place] /HPF 3:14 AM [facility] Bacteria Urine Few (A) NEG^Negat 11/16/2018 [place] raisa /HPF 3:14 AM [facility] Squamous <1 0 - 1 11/16/2018 [place] Epithelial /HPF /HPF 3:14 AM [facility] Specimen (Source) Anatomical Collection Method Collection Time Re ceived Time Location / / Volume Laterality Examination of URINE SPECIMEN / 11/16/2018 3:00 2018 3:06 midstream urine Unknown AM CDT AM CDT specimen (procedure) Torsten Madden MD LAB - URINE ORDERABLES Performing Organization Address [facility] Phon e Number [facility] [address] [place], [place] [address] [facility] [address] [place], [place] [address], [facility] [phone] HCG qualitative Blood (11/16/2018 2:16 AM CDT) [facility] Method Time Signature HCG Qualitative Negative NEG^Negati 11/16/2018 [place] Serum ve 2:47 AM [facility] Comment: This test is for screening purposes. ??R esults should be interpreted along with the clinical picture. ??Confirmation te sting is available if warranted by ordering [id number], HCG Quantitative Pregna ncy. Specimen Anatomical Collection Method Collection Time Receive d Time (Source) Location / / Volume Laterality Blood specimen 11/16/2018 2:16 AM 019 2:22 (specimen) CDT AM CDT Torsten Madden MD LAB - BLOOD ORDERABLES Performing Organization Address [facility] Phon e Number [facility] [address] [place], [place] [address] [facility] [address] [place] [address], [facility] [phone] Lipase (11/16/2018 2:16 AM CDT) athologist Signature Lipase 76 73 - 393 11/16/2018 [facility] U/L 2:44 AM [facility] Specimen Anatomical Collection Method Collection Time Receive d Time (Source) Location / / Volume Laterality Blood specimen 11/16/2018 2:16 AM 019 2:22 (specimen) CDT AM CDT Torsten Madden MD LAB - BLOOD ORDERABLES Performing Organization Address City/State/ZIP Code Phon e Number [facility] [address] [place] [address] [facility] [address] [phone] (ABNORMAL) Comprehensive metabolic panel (11/16/2018 2:16 AM CDT) athologist Signature Sodium 139 133 - 144 11/16/2018 [place] mmol/L 2:36 AM [facility] Potassium 3.7 3.4 - 5.3 11/16/2018 [place] mmol/L 2:36 AM [facility] Chloride 108 94 - 109 11/16/2018 [place] mmol/L 2:36 AM [facility] Carbon Dioxide 25 20 - 32 11/16/2018 [place] mmol/L 2:42 AM [facility] Anion Gap 6 3 - 14 11/16/2018 [place] mmol/L 2:42 AM [facility] Glucose 100 (H) 70 - 99 11/16/2018 [place] mg/dL 2:42 AM [facility] Urea Nitrogen 9 7 - 30 11/16/2018 [place] mg/dL 2:42 AM [facility] Creatinine 0.88 0.52 - 11/16/2018 [facility] 1.04 mg/dL 2:42 AM [facility] GFR Estimate 89 >60 11/16/2018 [facility] mL/min/{1. 2:42 AM [facility] 73_m2} HOSPITAL Comment: Non GFR Calc Starting 04/14/2018, serum creatinine ba sed estimated GFR (eGFR) will be calculated using the Chronic Kidney Dise ase Epidemiology Collaboration (CKD-EPI) equation. GFR Estimate If >90 >60 mL/min/{1.73_m2} 11/16/2018 2: 42 AM [facility] Comment: GFR Calc Starting 04/14/2018, serum creatinine ba sed estimated GFR (eGFR) will be calculated using the Chronic Kidney Dise ase Epidemiology Collaboration (CKD-EPI) equation. Calcium 8.7 8.5 - 10.1 mg/dL 11/16/2018 2:42 AM [facility] Bilirubin Total 0.5 0.2 - 1.3 mg/dL 11/16/2018 2:44 AM [facility] Albumin 4.3 3.4 - 5.0 g/dL 11/16/2018 2:44 AM [facility] Protein Total 7.6 6.8 - 8.8 g/dL 11/16/2018 2:44 AM [facility] Alkaline Phosphatase 57 40 - 150 U/L 11/16/2018 2:44 AM [facility] ALT 17 0 - 50 U/L 11/16/2018 2:44 AM [facility] AST 12 0 - 45 U/L 11/16/2018 2:44 AM [facility] Specimen Anatomical Collection Method Collection Time Receive d Time (Source) Location / / Volume Laterality Blood specimen 11/16/2018 2:16 AM 019 2:22 (specimen) CDT CDT Torsten Madden MD LAB - BLOOD ORDERABLES Performing Organization Address City/State/ZIP Code Phon e Number [place] [address] [address] [place] [address] [facility] [address] [phone] CBC with platelets differential (11/16/2018 2:16 AM CDT) [facility] Method Time Signature WBC 6.2 4.0 - 11/16/2018 [facility] 11.0 2:25 AM [facility] 10e9/L [facility] RBC Count 4.94 3.8 - 5.2 11/16/2018 [place] 10e12/L 2:25 AM [facility] Hemoglobin 15.3 11.7 - 11/16/2018 [facility] 15.7 g/dL 2:25 AM [facility] Hematocrit 44.5 35.0 - 11/16/2018 [facility] 47.0 % 2:25 AM [facility] MCV 90 78 - 100 11/16/2018 [facility] fl 2:25 AM [facility] MCH 31.0 26.5 - 11/16/2018 [facility] 33.0 pg 2:25 AM [facility] MCHC 34.4 31.5 - 11/16/2018 [facility] 36.5 g/dL 2:25 AM [facility] RDW 11.8 10.0 - 11/16/2018 [facility] 15.0 % 2:25 AM [facility] Platelet Count 212 150 - 450 11/16/2018 [facility] 10e9/L 2:25 AM [facility] Diff Method Automated 11/16/2018 [facility] Method 2:25 AM [facility] % Neutrophils 46.3 % 11/16/2018 [facility] 2:25 AM [facility] % Lymphocytes 40.6 % 11/16/2018 [facility] 2:25 AM [facility] % Monocytes 8.4 % 11/16/2018 [facility] 2:25 AM [facility] % Eosinophils 3.9 % 11/16/2018 [facility] 2:25 AM [facility] % Basophils 0.6 % 11/16/2018 [facility] 2:25 AM [facility] % Immature 0.2 % 11/16/2018 [facility] Granulocytes 2:25 AM [facility] Nucleated RBCs 0 0 /100 11/16/2018 [facility] 2:25 AM [facility] Absolute 2.9 1.6 - 8.3 11/16/2018 [facility] Neutrophil 10e9/L 2:25 AM [facility] Absolute 2.5 0.8 - 5.3 11/16/2018 [facility] Lymphocytes 10e9/L 2:25 AM [facility] Absolute 0.5 0.0 - 1.3 11/16/2018 [facility] Monocytes 10e9/L 2:25 AM [facility] Absolute 0.2 0.0 - 0.7 11/16/2018 [facility] Eosinophils 10e9/L 2:25 AM [facility] Absolute 0.0 0.0 - 0.2 11/16/2018 [place] Basophils 10e9/L 2:25 AM [facility] Abs Immature 0.0 0 - 0.4 11/16/2018 [place] Granulocytes 10e9/L 2:25 AM [facility] Absolute 0.0 11/16/2018 [place] Nucleated RBC 2:25 AM [facility] Specimen Anatomical Collection Method Collection Time Receive d Time (Source) Location / / Volume Laterality Blood specimen 11/16/2018 2:16 AM 019 2:22 (specimen) CDT AM CDT Torsten Madden MD LAB - BLOOD ORDERABLES Performing Organization Address City/State/ZIP Code Phon e Number [place] [address] [address] [place] [address] [facility] [address] [phone] documented in this encounter Visit Diagnoses Diagnosis [...] minutes. documented in this encounter Care Teams Patent Attorney Relationship Specialty Start Date End Date No Ref-Primary, Physician PCP - General 11/16/18 documented as of this encounter
--- OUTSIDE RECORDS SUMMARY | 2022-02-01 07:51 | XMS_ITS | Encounter Summary ---
:1990 Author Organization [facility] Address [address] [place] [address] Care Team Providers Name Role Phone No Ref-Primary, Physician Primary Care Provider [phone] Reason for Visit Reason Comments Ultrasound L2- IVF Encounter Details Date Type Department Care Team Description 11/13/2021 PRE VISIT [facility] Argenis Baron Ultr asound (L2- IVF) Maternal Medicine [facility] [address] [place] [address] Social History Tobacco Use Types Packs/Day Years Used Date Never Assessed Sex Assigned at Date Recorded Not on file documented as of this encounter Plan of Treatment Not on filedocumented as of this encounter Visit Diagnoses Not on filedocumented in this encounter Care Teams Pet Nutrition Specialist Relationship Specialty Start Date End Date No Ref-Primary, Physician PCP - General 11/16/18 documented as of this encounter
[2022-02-01 07:52] LABS: Glucose Fasting Check 89 mg/dl (60-115)
[2022-02-01 14:08] LABS: Glucose 1 Hour Gest 143 mg/dl (70-180)
[2022-02-01 14:09] LABS: Glucose GTT-Gestational 3 Hr 81 mg/dl (70-140)
== END 2022-02-01 16:06 | disposition home or self-care (01) ==
PROVIDERS: Visit Provider Physician Assistant
DX: Z34.93 Encounter for supervision of normal pregnancy, unspecified, third trimester (principal); Z3A.29 29 weeks gestation of pregnancy
CPT/HCPCS: 82951; 82952

== ENCOUNTER 2022-03-07 14:52 | Outpatient (CLI) | payer OTHER, SELFPAY ==
--- OUTSIDE RECORDS SUMMARY | 2022-03-07 14:55 | XMS_ITS | Encounter Summary ---
:1990 Author Organization [facility] Address [address] [place] [address] Care Team Providers Name Role Phone Found, No Pcp MD Primary Care Provider Unavailable Reason for Visit Reason Comments Post Visit Follow Up Encounter Details Date Type Department Care Team Description 11/14/2018 Nurse Triage Louann Nurse [place] [address] [address] [place] [address] [facility] [phone] [place] [address] (Wo rk) Social History Tobacco [...] used: RECENT MEDICAL VISIT FOR ILLNESS FOLLOW-UP [id number] Problem list reviewed as related to this call. documented in this encounter Plan of Treatment Not on filedocumented as of this encounter Visit Diagnoses Not on filedocumented in this encounter Care Teams Certified Adapted Physical Educator Relationship Specialty Start Date End Date Found, No Pcp, PCP - General 05/02/15 [address] [place] [address] documented as of this encounter
--- OUTSIDE RECORDS SUMMARY | 2022-03-07 14:55 | XMS_ITS | Encounter Summary ---
:1990 Author Organization [facility] Address [address] [place] [address] Care Team Providers Name Role Phone Brisa Smith PA-C Primary Care Provider Reason for Visit Reason Comments Sinus Problem Encounter Details Date Type Department Care Team Description 04/19/2011 Office Visit [facility] Chet Pandya M D Acute pharyngitis Medicine [address] (Primary Dx) [address] [place] [phone] Social History Tobacco Use Types Packs/Day Years Used Date Smoking Tobacco: Never Assessed Sex Assigned at Date Recorded Not on file documented as of this encounter Last Filed Vital Signs Vital Sign Reading Time Taken Comments Blood Pressure 121/69 04/19/2011 9:37 AM BROKE BEATER Pulse 87 04/19/2011 9:37 AM BROKE BEATER Temperature 36.9 ??C (98.4 ??F) 04/19/2011 9:37 AM BROKE BEATER Respiratory Rate 16 04/19/2011 9:37 AM BROKE BEATER Oxygen Saturation - - Inhaled Oxygen Concentration - - Weight 70.3 kg (155 lb) 04/19/2011 9:37 AM BROKE BEATER Height - - Body Mass Index 23.57 [...] 04/19/2011 10:19 AM R esults for this BROKE BEATER procedure are i n the results section. RAPID STREP SCREEN Routine 04/19/2011 9:56 AM Acute pharyngiti s Results for this WAIVED BROKE BEATER procedure are i n the results section. documented in this encounter Results Beta Strep Followup (04/19/2011 10:19 AM BROKE BEATER) [facility] Method Time Signature Strep Screen No beta [...] / Volume Laterality Throat: 04/19/2011 10:19 AM BROKE BEATER Chet Pandya MD LAB_1 Performing Organization Address City/State/ZIP Code Phon e Number HP CONVERSION Rapid Strep Screen Waived (04/19/2011 9:56 AM BROKE BEATER) Component Value Ref Test Analysis Performed At [facility] Range Method Time Signature Rapid Strep Test performed HP CONVERSIO N Screen Waived by:Clari Rapid Strep Negative for HP CONVERSION Screen Waived Streptococcus group A Comment: ? ORDERED BY: CHET PANDYA SOURCE: Throat ? COLLECTED: ??04/19/11 09:56 ? PLATED: ? 04/19/11 10:18 Rapid Strep Screen Waived ?FINAL ? 04/19/11 10:20 ??Test performed by: Brennen ? Negative for Streptococcus group A Specimen (Source) Anatomical Collection Method Collection Time Re ceived Time Location / / Volume Laterality Throat: 04/19/2011 9:56 AM BROKE BEATER Narrative HP CONVERSION - 04/19/2011 10:20 AM BROKE BEATER Performed at [facility], [address] [place] [address] Chet Pandya MD LAB_1 Performing Organization Address City/State/ZIP Code Phon e Number HP CONVERSION documented in this encounter Visit Diagnoses Diagnosis Acute pharyngitis - Primary documented in this encounter Care Teams Shake Splitter Relationship Specialty Start Date End Date Brisa Smith PA-C PCP - General 07/30/10 04/18/15 [address]70 [place] [address] documented as of this encounter
--- OUTSIDE RECORDS SUMMARY | 2022-03-07 14:55 | XMS_ITS | Encounter Summary ---
:1990 Author Organization [facility] Address [address] [place] [address] Care Team Providers Name Role Phone Found, No Pcp MD Primary Care Provider Unavailable Reason for Visit Reason Comments FOREIGN BODY, EYE Encounter Details Date Type Department Care Team Description 01/20/2020 Hospital Encounter [facility] Esquivel Abrasi on of right [facility] cornea, initial Care [address] [place] encounter [address] [place] [address] [phone] Social History Tobacco Use Types Packs/Day Years [...] your doctor if you can take an nwgh-ctd-emrtpub medicine. ? Do not take two or [...] can you learn more? 1. Go to https://Zomazz/Ludei or MediSapiens/Sophie & Juliet. 2. Enter G403 in the search box. Current as of: April 13, 2019?Content Version: 12.4 ?? [employer]oke [employer]. Care instructions adapted under license by your healthcare professional. If you have questions abouta medical condition or this instruction, always ask your healthcare professional. [employer] disclaims any warranty or liability for your [...] Not on file Occupational History ??? 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 Financial [...] file Gets together: Not on file Attends restorationist service: Not on file Active member of [...] No Social History Narrative Recently graduated from [employer] in civil engineering. 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 She is currently dating. Adverse Drug Reactions: [...] your doctor if you can take an vktx-cup-zlcwkze medicine. ? Do not take two or [...] can you learn more? 1. Go to https://Enerplant.Art of Click/healthlibrary or MediSapiens/Cool City Avionicslibrary. 2. Enter G403 in the search box. Current as of: April 13, 2019?Content Version: 12.4 ?? [id number] [employer]espoke [employer]. Care instructions adapted under license by your healthcare professional. If you have questions about a medical condition or this instruction, always ask your healthcare professional. [employer] disclaims any warranty or liability for your [...] eye documented in this encounter Care Teams Marble Worker Relationship Specialty Start Date End Date Found, No Pcp, PCP - General 05/02/15 [address] [place] [address] documented as of this encounter
--- OUTSIDE RECORDS SUMMARY | 2022-03-07 14:55 | XMS_ITS | Encounter Summary ---
:1990 Author Organization [facility] Address [address] [place], [place] [address] [place] [address] Care Team Providers Name Role Phone Brisa Smith PA-C Primary Care Provider Reason for Visit Reason Comments Patient Calling Back Encounter Details Date Type Department Care Team Description 09/15/2012 Telephone [facility] Jasmin Wihtmore Patient Calling Back [address] [place] [address] Social History Tobacco Use [...] CDT Left message for patient to call [phone] and ask for nurse triage for lab [...] filedocumented in this encounter Care Teams Manager Business Management Relationship Specialty Start Date End Date Brisa Smith PA-C PCP - General 07/30/10 04/18/15 [address] [place] [address] documented as of this encounter
--- OUTSIDE RECORDS SUMMARY | 2022-03-07 14:55 | XMS_ITS | Encounter Summary ---
:1990 Author Organization [facility] Address [address], [place] [address] Care Team Providers Name Role Phone Lynette Smith PA-C Primary Care Provider Reason for Visit Reason Comments Other Encounter Details Date Type Department Care Team Description 11/15/2008 Telephone [facility] [address], Message Other [address] [place], [place] [id number] Social History Tobacco Use Types Packs/Day Years Used Date Smoking Tobacco: Never Assessed Sex Assigned at Date Recorded Not on file documented as of this encounter [facility], Message - 11/15/2008 12:11 PM CDT Phone Note filed by Adyen at 08/17/10 0988 Author: Adyen Service: (none) Author Type: (none) Filed: 08/17/10 3600 Note Time: 11/15/08 1211 Status: Signed Continuous Improvement Lead: Adyen (Resource) Front Line Sx Call Caller Name/Relationship:ptHellen Primary Lift Manager:Luis Symptom or request?Pt was earlier in the month for stomach pain, pt was given rx that is not working. Pt is still having same sx. Is appointment scheduled & when?no Agricultural Pilot:pt Best call back number:[phone] c Is it OK to leave a confidential message on this voicemail?yes *[id number] Created on [id number] 12:11pm by JESSICA KITCHEN On 15Nov2008 12:21pm JESSICA HERNÁNDEZ wrote: Left message to callback to [id number] and ask to speak with a nurse. [...] and agrees. Pt was transfered to scheduling. HAND documented in this encounter Plan of Treatment Not on filedocumented as of this encounter Visit Diagnoses Not on filedocumented in this encounter Care Teams Cigar Maker Relationship Specialty Start Date End Date Lynette Smith, LUIS PCP - General 07/30/10 04/18/15 [address] [place] [address] documented as of this encounter
--- OUTSIDE RECORDS SUMMARY | 2022-03-07 14:55 | XMS_ITS | Encounter Summary ---
:1990 Author Organization [facility] Address [address], [place] [address] Care Team Providers Name Role Phone Brisa Smith PA-C Primary Care Provider Encounter Details Date Type Department Care Team Description 11/02/2009 PN Conversion Only [place] [address] [facility] [address] [place], [place] [id number] [place] [address] Social History Tobacco Use Types Packs/Day Years [...] (11/02/2009 6:51 PM CDT) Analysis Performed At [facility] Time Signature Strep Group A SEE TEXT [...] on filedocumented in this encounter Care Teams Customer Success Manager Relationship Specialty Start Date End Date Brisa Smith PA-C PCP - General 07/30/10 04/18/15 [address] [place] [address] documented as of this encounter
--- OUTSIDE RECORDS SUMMARY | 2022-03-07 14:55 | XMS_ITS | Encounter Summary ---
:1990 Author Organization [facility] Address [address] [address] Care Team Providers Name Role Phone Lynette Smith PA-C Primary Care Provider Reason for Visit Reason Comments Other Encounter Details Date Type Department Care Team Description 11/23/2008 Telephone [id number] [facility], Message Other [address] [place] [address] Social History Tobacco Use Types Packs/Day Years Used Date Smoking Tobacco: Never Assessed Sex Assigned at Date Recorded Not on file documented as of this encounter Progress Notes Yinka Ramsey MA - 11/23/2008 9:47 AM CDT Phone Note filed by Yinka Ramsey MA at 08/17/10831 Author: Yinka Ramsey MA Service: (none) Author Type: Hand Finisher Filed: 08/17/10831 Note Time: 11/23/08946 Status: Signed Rf Test Technician: Yinka Ramsey MA (Hand Finisher) Results of US in LW. Created on 23Nov2008 9:47am by YINKA RAMSEY On 23Nov2008 10:13am LYNETTE SMITH wrote: Please notify patien that ultrasound is normal. Acknowledged by LYNETTE SMITH on 10:13am On 23Nov2008 10:22am CHLOE QUINN wrote: LM at [phone] (# given by someone at day phone# below) for pt to call for above info. Any nurse can relay result. On 23Nov2008 10:23am ANT PANG wrote: pt is returning call. On 23Nov2008 10:43am JESSICA ISAAC wrote: results given, no further questions at this time. IAC CATH LAB TECHNOLOGIST documented in this encounter Plan of Treatment Not on filedocumented as of this encounter Visit Diagnoses Not on filedocumented in this encounter Care Teams Academy Director Relationship Specialty Start Date End Date Lynette Smith PA-C PCP - General 07/30/10 04/18/15 [address] [place] [address] documented as of this encounter
--- OUTSIDE RECORDS SUMMARY | 2022-03-07 14:55 | XMS_ITS | Encounter Summary ---
:1990 Author Organization [facility] Address [address] [place] [address] Care Team Providers Name Role Phone Brisa Smith PA-C Primary Care Provider Reason for Visit Reason Comments Annual Exam Encounter Details Date Type Department Care Team Description 09/08/2012 Office Visit [facility] Jasmin rCystal Routine physical examination (Primary Dx); Medicine K Screening for malignant neop lasm of the cervix; [address] Screening for STDs (sexually transmitted diseases); [place], [place] Contraceptive management; [phone] Screen for STD (sexually tra nsmitted disease); [phone] Bacterial vagin itis; Vaginal yeast i nfection [...] negative Neurological ROS: negative Dermatological ROS: negative Air Control Electronics Operator History: : LMP: Patient's last menstrual period [...] Years of Education: N/A 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 Smoking status: Never Smoker ??? Smokeless tobacco: Not on file ??? Alcohol Use: 1.7 oz/week 2 Cans of beer, 1 Drinks containing 0.5 oz of alcohol per week ??? Drug Use: No ??? Sexually Active: Yes -- Male partner(s) Thompson, chris Other Topics Concern ??? City Water No ??? Exercise Yes ??? Seat Belt Yes ??? Special Diet No ??? Weight Concern No Social History Narrative Recently graduated from [employer] in civil engineering. 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 She is currently dating. Immunizations: Immunization History [...] adenopathy. Pelvic: Normal external genitalia and urethra. [place], moist vaginal and cervical mucosa, without lesions. [...] agrees with the plan, all questions answered. SAMPLER Miscellaneous - 06/07/2016 7:11 AM CSTNotes Recorded by Jasmin Crystal PA-C on 09/15/2012 at 10:43 AMPlease call patient pap smear normal, STD screen for gonorrhea/chlamydia negative SAMPLER Assessment & Plan Note - Jasmin Crystal [...] (ABNORMAL) WET PREP (09/08/2012 11:12 AM CDT) [facility] Method Time Signature WETPR White Moderate HP [...] - 09/08/2012 11:31 AM CDT Performed at [facility], [address] [place] [address] Transcriptions 06/07/2016 7:24 AM CSTNotes Recorded by [...] Component Value Ref Test Analysis Performed At [facility] Range Method Time Signature Source Endocervical for [...] CDT FINAL GYNECOLOGICAL CYTOLOGY REPORT Pathology #: [id number] ?Date Obtained: 09/08/2012 ? Date Received: 09/09/2012 [...] normal, STD screen for gonorrhea/chlamydia negative Jasmin K Josias LAB_1 Performing Organization Address City/State/ZIP Code Phon e Number HP CONVERSION Pap Smear Screening (09/08/2012 10:53 AM CDT) P athologist Signature PAP Routine Collected HP CONVERSION Specimen Anatomical Collection Method Collection Time Receive d Time (Source) Location / / Volume Laterality 09/08/2012 10:53 09/09/2012 8:02 AM CDT AM CDT Jasimn K Josias LAB_1 Performing Organization Address City/State/ZIP Code Phon [...] vagina documented in this encounter Care Teams Press Washer Relationship Specialty Start Date End Date Brisa Smith PA-C PCP - General 07/30/10 04/18/15 [address] [place] [address] documented as of this encounter
--- OUTSIDE RECORDS SUMMARY | 2022-03-07 14:55 | XMS_ITS | Encounter Summary ---
:1990 Author Organization [facility] Address [address] [place] [address] Care Team Providers Name Role Phone Brisa Smith PA-C Primary Care Provider Encounter Details Date Type Department Care Team Description [facility] [place] [address] [address] [place], [place] [address] (Wo rk) Social History [...] signed by Brisa Smith PA-C at 11/16/08 1343 Author: Brisa Smith PA-C Service: (none) Author Type: Physician Watch Crystal Grinder Filed: 08/18/10 6812 Note Time: 11/16/08 0001 Status: Signed Director Of Teacher Education: Brisa Smith PA-C (Resource) Subjective: 18-year-old female [...] as well. Past medical history: Reviewed in todays lastwork [...] on filedocumented in this encounter Care Teams Telephone Services Sales Representative Relationship Specialty Start Date End Date Brisa Smith PA-C PCP - General 07/30/10 04/18/15 [address] [place] [address] documented as of this encounter
--- OUTSIDE RECORDS SUMMARY | 2022-03-07 14:55 | XMS_ITS | Encounter Summary ---
:1990 Author [facility] Address [address] [place] [address] Care Team Providers Name Role Phone Found, No Pcp MD Primary Care Provider Unavailable Reason for Visit Reason Comments Forms outside records-[place], [place] Encounter Details Date Type Department Care Team Description 03/19/2019 Care Coord [facility] Hieronimus, Forms (ou tside Documentation Services-CABLE PLACER Josephine Bingham MD records-[facility] [address] [place] [address], [address]) [place] [address] [phone] Social History Tobacco Use Types Packs/Day Years [...] fax, placed on provider desk for review. ICE COURT JUDGE documented in this encounter Plan of Treatment Not on filedocumented as of this encounter Visit Diagnoses Not on filedocumented in this encounter Care Teams Speech Pathology Teacher Relationship Specialty Start Date End Date Found, No Pcp, PCP - General 05/02/15 [address] [place] [address] documented as of this encounter
--- OUTSIDE RECORDS SUMMARY | 2022-03-07 14:55 | XMS_ITS | Encounter Summary ---
:1990 Author Organization [facility] Address [address] [place] [address] Care Team Providers Name Role Phone Brisa Smith PA-C Primary Care Provider Reason for Visit Reason Comments Medication Questions Encounter Details Date Type Department Care Team Description 09/02/2011 Telephone [facility] Jasmin Whitmore Medication Questions [address] [place] [address] Social History Tobacco Use [...] on filedocumented in this encounter Care Teams Online Retailer Relationship Specialty Start Date End Date Brisa Smith PA-C PCP - General 07/30/10 04/18/15 [address] [place] [address] documented as of this encounter
--- OUTSIDE RECORDS SUMMARY | 2022-03-07 14:55 | XMS_ITS | Encounter Summary ---
:1990 Author Organization [facility] Address [address] [place] [address] Care Team Providers Name Role Phone Brisa Smith PA-C Primary Care Provider Encounter Details Date Type Department Care Team Description 11/16/2008 PN Conversion Only [facility] CONVERSION Brisa Smith, [address] [place] [address] [place], [place] [address] (Wo rk) Social History [...] - HP CONVERSION Hemoglobin Conc 36.5 gm/dL [place] RDW 11.8 11.0 - HP CONVERSION 15.0 [...] CONVERSION ALT (SGPT) (11/16/2008 1:37 PM CDT) [facility] gist Method Time Signature Alanine 14 4 - 55 HP CONVERSION Aminotransferase U/L Specimen (Source) Anatomical Collection Method Collection Time Re ceived Time Location / / Volume Laterality 11/16/2008 1:37 PM CDT Brisa Smith LUIS LAB_1 Performing Organization Address City/[facility] Code Phon e Number HP CONVERSION Amylase (11/16/2008 1:37 PM CDT) athologist Signature Amylase Serum 53 25 - 115 HP CONVERSION U/L Specimen (Source) Anatomical Collection Method Collection Time Re ceived Time Location / / Volume Laterality 11/16/2008 1:37 PM CDT Brisa Salvadoraryan WAYMimaDonnell LAB_1 Performing Organization Address [facility] Code Phon e Number HP CONVERSION AST (11/16/2008 1:37 PM CDT) [facility] gist Method Time Signature Aspartate 19 0 - 45 HP CONVERSION Aminotransferase U/L Specimen (Source) Anatomical Collection Method Collection Time Re ceived Time Location / / Volume Laterality 11/16/2008 1:37 PM CDT Brisa Salvadoraryan WAYMimaDonnell LAB_1 Performing Organization Address City/[facility] Code Phon e Number HP CONVERSION Bilirubin, Direct (11/16/2008 1:37 PM CDT) athologist Signature Bilirubin, 0.1 0.0 - 0.4 HP CONVERSION Direct mg/dL Specimen (Source) Anatomical Collection Method Collection Time Re ceived Time Location / / Volume Laterality 11/16/2008 1:37 PM CDT Brisa Smith SEAMUSMimaDonnell LAB_1 Performing Organization Address City/[facility]/ZIP Code Phon e Number HP CONVERSION Bilirubin, Total (11/16/2008 1:37 PM CDT) athologist Signature Bilirubin Total 0.3 0.2 - 1.2 HP CONVERSION mg/dL Specimen (Source) Anatomical Collection Method Collection Time Re ceived Time Location / / Volume Laterality 11/16/2008 1:37 PM CDT Brisa Smith PA-C LAB_1 Performing Organization Address City/[facility]/ZIP Code Phon e Number HP CONVERSION Lipase (11/16/2008 1:37 PM CDT) P athologist Signature Lipase 55 5 - 70 U/L HP CONVERSION Specimen (Source) Anatomical Collection Method Collection Time Re ceived Time Location / / Volume Laterality 11/16/2008 1:37 PM CDT Brisa Smith PA-C LAB_1 Performing Organization Address City/[facility] Phon e Number HP CONVERSION documented in this encounter Visit Diagnoses Not on filedocumented in this encounter Care Teams Security Services Specialist Relationship Specialty Start Date End Date Brisa Smith PA-C PCP - General 07/30/10 04/18/15 [address] [place] [address] documented as of this encounter
--- OUTSIDE RECORDS SUMMARY | 2022-03-07 14:55 | XMS_ITS | Encounter Summary ---
:1990 Author Organization [employer] Address [address] [place] [address] Care Team Providers Name Role Phone Found, No Pcp MD Primary Care Provider Unavailable Reason for Visit Reason Comments PAIN, MOUTH Encounter Details Date Type Department Care Team Description 11/13/2018 Hospital Encounter [facility] Eber Reyes, Dental infection Care [place]IS [address] [address] [facility] [phone] [place], [place] [id number] Social History Tobacco Use Types Packs/Day Years [...] in this encounter Discharge Instructions Discharge InstructionsEber Reyes, LUIS - 11/13/2018 9:02 AM CDT Images from [...] your doctor if you can take an nmvz-muc-hscsehe medicine. ?? Take your antibiotics as directed. Do not stop taking them just because you feel better. You needto take the full course of antibiotics. To prevent tooth abscess ?? Guston and floss every day, and have regular [...] can you learn more? 1. Go to https://Tier 1 Performance.MyWebGrocer/ReliSenlibrary or Mass Roots/Pick1library. 2. Enter L466 in the search box. Current as of: January 28, 2018 Content Version: 12.0 ?? [id number] DivvyDown. Care instructions adapted under license by your healthcare professional. If you have questions about a medical condition or this instruction, always ask your healthcare professional. DivvyDown disclaims any warranty or liability for your [...] medical conditions. Adverse Drug Reactions: Reviewed in [facility] Penicillins and Sulfa antibiotics Medications: Reviewed in [facility] No current facility-administered medications for this encounter. [...] Tablet 0 Past Medical History: Reviewed in [facility] Past Medical History: Diagnosis Date ??? Varicella OBJECTIVE: Vital Signs: Reviewed in [facility] Filed Vitals: 11/13/18 0806 BP: 112/69 Pulse: [...] No trismus. 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 Cardiac: rrr. ASSESSMENT: 1. Dental infection [...] worse. documented in this encounter Care Teams Software Engineering Associate Manager Relationship Specialty Start Date End Date Found, No Pcp, PCP - General 05/02/15 [address]19 [place] [address] documented as of this encounter
--- OUTSIDE RECORDS SUMMARY | 2022-03-07 14:55 | XMS_ITS | Clinical Summary ---
:1990 Author Organization [facility] Address [address] [place] [address] Care Team Providers Name Role Phone Found, [...] for each transition of care or referral. [place] Allergies Active Allergy Reactions Severity Noted Date [...] 11/23/2001, 10/15/2001 Influenza IIV4 (Quadrivalent) 0.5mL 03/18/2019 (41640) MCV4 (Menactra) 09/07/2007 MMR 11/23/2001 TDAP (ADACEL) [...] 72.1 kg (159 lb) 05/20/2019 4:12 PM FILM TESTS CHECKER Height 172.7 cm (5' 8) 03/18/2019 3:47 PM FILM TESTS CHECKER Body Mass Index 24.18 03/18/2019 3:47 PM FILM TESTS CHECKER Plan of Treatment Health Maintenance Due Date [...] / Subscriber ID Effective Phone Address T ype Group Dates [facility] [id number] 2020-Pr [phone] rs Comp INSURANCE WC INSURANCE WC esent [phone] SEAMUS YANG [address] MEDICA MEDICA CHOICE [id number] 2018-Pre Com mercial sent Hellen Sigala Personal/Family Self [id number] [phone] Otilia DIANA (Work) [id number] Hellen Sigala Workers Comp Self [phone] [phone] Otilia DIANA (Work) [phone] Care Teams Mainspring Winder And Oiler Relationship Specialty Start Date End Date Found, No Pcp, PCP - General 05/02/15 [address]24 [place] [address]
--- OUTSIDE RECORDS SUMMARY | 2022-03-07 14:55 | XMS_ITS ---
[...] ? 03/29/2021 chorionic gonadotropin, human 10,000 unit IM powder for solution Active ? Not available Inject 83700 units as needed by intramuscular route. clomiphene [...] av ailable Notes: Normal 04/28/2011 Extraction of [place] Tooth Information n ot available 04/28/1998 Tonsilectomy/adenoids Information not av ailable 08/01/2020 US, Transvaginal [id number]_cgrecjzom_zian a [address] [place] [address] (Work Place) 08/10/2020 US, Ovary, for Follicular Monitoring Cc0 04_[place] [address] [place] [address] (Work Place) 08/29/2020 US, Ovary, for Follicular Monitoring Cc0 04_[place] [address] [place] [address] (Work Place) 09/07/2020 US, Ovary, for Follicular Monitoring Cc0 04_[place] [address] [place] [address] (Work Place) 09/27/2020 US, Ovary, for Follicular Monitoring Cc0 04_[place] [address] [place] [address] (Work Place) 10/04/2020 US, Ovary, for Follicular Monitoring Cc0 04_[place] [address] [place] [address] (Work Place) 10/11/2020 US, Ovary, for Follicular Monitoring Cc0 04_[place] [address] [place] [address] (Work Place) 11/01/2020 US, Ovary, for Follicular Monitoring Cc0 04_[place] [address] [place] [address] (Work Place) 12/29/2020 US, Ovary, for Follicular Monitoring Cc0 04_[place] [address] [place] [address] (Work Place) 01/08/2021 US, Ovary, for Follicular Monitoring Cc0 04_[place] [address] [place] [address] (Work Place) Results Lab Results Date Name Specimen Result Interpretation Description Value Range Status Address ? 03/29/2021 Cytology ? Interpretation nilm ? Fi nal [facility]: Report, [address] , Smear or [place] Scraping, Cervical or Vaginal ? ? ? Category: nil ? Final [facility]: [address] [facility] ? ? ? Adequacy: secni ? Final [facility]: [address] [facility] ? ? ? Clinician comment ? Final [facility]: Provided ICD10: 3 504 [facility] ? ? ? Performed by: comment ? Final L [facility]: [address] [facility] ? ? ? Note: comment ? Final [facility]: [address] [facility] ? ? ? Test comment ? Final [facility]: Methodology: [address] [place] [address] ? ? ? HPV Aptima negative negative Final L [facility]: [address] [facility] 09/15/2020 Progesteron ? Progesterone, 10.6 ? Complete John e, Serum Serum NG/mL [facility] - Lab: [address], [place] 07/04/2020 Extra Tube ? Note ? ? Complete John [facility] (Lab [facility]) Health - Lab: [address], [place] 07/04/2020 Estradiol, ? Estradiol, 44.7 ? Comp lete [place] Serum Serum pg/mL [facility] - Lab: [address], [place] 07/04/2020 Prolactin, ? Prolactin, 8.7 NG/mL ? C omplete [place] Serum Serum [facility] - Lab: [address], [place] 07/04/2020 FSH ? FSH, Serum 6.9 ? Complete John (Follicle-s mIU/mL [facility] - Hormone), Lab: [address], [place] 07/04/2020 Lh ? Lutenizing 3.0 ? Complete John (Luteinizin Hormone (LH) mIU/mL [facility] Hormone), [facility] - Serum Lab: [address], [place] 07/04/2020 Thyroid ? Tsh 0.887 0.358-3.7 Complete John [place], uIU/mL 40 uIU/mL [facility] Serum Health - Lab: [address], [place] 07/04/2020 Rubella ? Rubella Immune immune immune Com plete [place] Virus IgG Status Reported [facility] Ab, QL, Health - Serum Lab: [address], [place] 07/04/2020 Anti-cervantes ? Antimullerian 3.9 NG/mL 0.58 -8.1 [facility] Hormone Hormone (Amh), S NG/mL [facility] (Amh), [facility] - Serum Lab: [address], [place] ? ? Result UPT negative ? ? Fe735_xyophm Test, Urine ale_b urnsvil le: [address] [facility] [address] [facility] [place] ? ? Result UPT negative ? ? Lo977_fxrinx Test, Urine ale_b urnsvil le: [address] [facility] [address] [facility] [place] ? ? Result UPT negative ? ? Pl943_vvejsv Test, Urine ale_e maria alejandra: [address] , [place] Past Encounters 03/29/2021 Gynecologic Examination Rohini Major CNM: 305 [facility] Ze al, [address] [address], Ph. 01/10/2021 Female Infertility; Artificial Inseminat joshua García MD: [address] [facility], [address] [address], Ph. 01/09/2021 Laura Syk MD: [address], [address] [place] [address], Ph. 01/08/2021 Female Infertility Laura Sky MD: [address], [address] [address], Ph. 01/08/2021 Fertility Problem Laura Sky MD: [address], [address] [address], Ph. 12/29/2020 Primary Infertility Laura Sky MD: [address], [address], [place] [address], Ph. 12/29/2020 Female Infertility Laura Sky MD: [address], [address], [place] [address], Ph. 11/01/2020 Fertility Problem EZEKIEL Conner: [address] [place] [address], [facility] [place] [address], Ph. 11/01/2020 Fertility Problem Yamilex Juarez MD: [address] , [address] [address], Ph. 10/12/2020 Artificial Insemination Kirti Lang DANIEL: [address], [address] [place] [address], Ph. 10/11/2020 Female Infertility Kirti Lang DANIEL: [address], Suite [facility], [place] [address], Ph. 10/11/2020 Fertility Problem Yamilex Juarez MD: [address], [address] [place] [address], Ph. 10/04/2020 Female Infertility Kirti Lang DANIEL: [address], [address], [place] [address], Ph. 10/04/2020 Fertility Problem Yamilex Juarez MD: [address], [address] [place] [address], Ph. 09/27/2020 Female Infertility Kirti Lang DANIEL: [address], [address], [place] [address], Ph. 09/27/2020 Fertility Problem Azul Holt MD: [address], [address], [place] [address], Ph. 09/08/2020 Female Infertility Breanne Gutierrez, [facility]-: [address], [address], [place] [address], Ph. 09/07/2020 Female Infertility Kirti Lang, [facility]: [address], [address], [place] [address], Ph. 09/07/2020 Fertility Problem Yamilex Juarez MD: [address], [address], [place] [address], Ph. Social History Tobacco Smoking Status Never [...]
--- OUTSIDE RECORDS SUMMARY | 2022-03-07 14:55 | XMS_ITS | Encounter Summary ---
:1990 Author Organization [facility] Address [address] [place] [address] Care Team Providers Name Role Phone Brisa Smith PA-C Primary Care Provider Encounter Details Date Type Department Care Team Description 11/02/2009 Office Visit [facility] [id number] [place] [address] Social History Tobacco Use Types Packs/Day Years [...] 0135 Note Time: 11/02/09 0001 Status: Signed Emt I/99: Niraj Dawson MD (Physician) NAME: MINO POSADAS MR#: [id number] ACCT: [id number] VISIT: [id number] DICTATING CLINICIAN: Niraj Dawson MD CONFIRM #: [id number] LOC: 520 CLINIC PROGRESS NOTE DATE OF VISIT: 11/02/2009 SUBJECTIVE: : 1990. Patient is a 19-year-old here with chief complaint of sore throat, cough, ear pain. 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 DRL:[id number] C: 11/03/09 13:44 CONFIRM #: [id number] documented in this encounter Plan of Treatment Not on filedocumented as of this encounter Visit Diagnoses Not on filedocumented in this encounter Care Teams Associate Biological Sales Relationship Specialty Start Date End Date Brisa Smith PA-C PCP - General 07/30/10 04/18/15 [address] [place] [address] documented as of this encounter
--- OUTSIDE RECORDS SUMMARY | 2022-03-07 14:55 | XMS_ITS | Encounter Summary ---
:1990 Author [facility] Address [address] [place] [address] Care Team Providers Name Role Phone Brisa Smith PA-C Primary Care Provider Encounter Details Date Type Department Care Team Description 08/27/2010 PN Conversion Only CONVERSION CONVERSION Lena Chiu, PRESIDENT/GM PRODUCTION & LIVE EXPERIENCES, MICROBIOLOGY TEACHER [address] [place], [place] [address] (Wo rk) Social History Tobacco Use Types Packs/Day Years Used Date Smoking Tobacco: Never Assessed Sex Assigned at Date Recorded Not on file documented as of this encounter Plan of Treatment Not on filedocumented as of this encounter Visit Diagnoses Not on filedocumented in this encounter Care Teams Commercial Horticulture Instructor Relationship Specialty Start Date End Date Brisa Smith PA-C PCP - General 07/30/10 04/18/15 [address] [place] [address] documented as of this encounter
--- OUTSIDE RECORDS SUMMARY | 2022-03-07 14:55 | XMS_ITS | Encounter Summary ---
:1990 Author Organization [facility] Address [address] [place] [address] Care Team Providers Name Role Phone Found, No Pcp MD Primary Care Provider Unavailable Reason for Visit Reason Comments Annual Exam Encounter Details Date Type Department Care Team Description 03/18/[address] [facility] (Primary Dx); Services-RUBBER TUBING BACKER Josephine Bingham MD Screening for cervical cancer; [address] [place] [address] for influenza vaccination; [address] Vaginal itching; [place], [place] IMANI DC Encounter for preconception consultation [id number] [phone] Social History Tobacco Use Types Packs/Day Years Used Date Smoking Tobacco: Never Smokeless Tobacco: Never Alcohol Use Standard Drinks/Week Comments Yes 2.8 (1 standard drink = 0.6 oz pure alco hol) Sex Assigned at Date Recorded Not on file documented as of this encounter Last Filed Vital Signs Vital Sign Reading Time Taken Comments Blood Pressure 117/62 03/18/2019 3:47 PM TOLL COLLECTOR SUPERVISOR Pulse 74 03/18/2019 3:47 PM TOLL COLLECTOR SUPERVISOR Temperature - - Respiratory Rate - - Oxygen Saturation - - Inhaled Oxygen Concentration - - Weight 71.5 kg (157 lb 9.6 oz) 03/18/2019 3:47 PM TOLL COLLECTOR SUPERVISOR Height 172.7 cm (5' 8) 03/18/2019 3:47 PM TOLL COLLECTOR SUPERVISOR Body Mass Index 23.96 03/18/2019 3:47 PM TOLL COLLECTOR SUPERVISOR documented in this encounter Patient Instructions Patient InstructionsHieronimus, Josephine M, MD - 03/18/2019 4:00 PM CST Ethnicity-Based [...] is more common in people of Ashkenazi Methodist, Citizen Of [place], or Cajun backgrounds. ?? Diseases that occur more often in people of Ashkenazi Methodist background. These include: ? Alexey-Sachs disease. ? Manpreet disease. ? Familial dysautonomia. ? Cystic fibrosis. ? Fanconi anemia group C. ? Geoffrey-Pick disease type A. ? Mucolipidosis IV. ? Deutsch syndrome. ? Gaucher's disease. Should you be tested? Certain genetic conditions are more common in certain ethnic groups. People who are or of , Ashkenazi Methodist, Southeast , Citizen Of [place], or Mediterranean background may want to think [...] can you learn more? 1. Go to https://WolfGIS.Saatchi Art/healthlibrary or Roller/Conversion InnovationsraSavor. 2. Enter Q084 in the search box. Current as of: July 27, 2018 Content Version: 12.2 ?? 9536-1566 Healthwise, Incorporated. Care instructions adapted under license by your healthcare professional. If you have questions about a medical condition or this instruction, always ask your healthcare professional. Surma Enterprise disclaims any warranty or liability for your use of this information. Learning About Planning for Future How can you plan for ? Even before you get , you can help make your as healthy as possible. Take these steps: ?? See a doctor or certified nurse-welt rander for an exam. Talk about the medicines, [...] And it can help your doctor or welt rander figure out when your baby isdue and how it is growing. ?? Make healthy choices. Eat well. Avoid caffeine. Or cut back and only have 1 cup of coffee or tea a day. Avoid alcohol, cigarettes, and illegal drugs. Take only the medicines your doctor or welt rander says are okay. ?? Get plenty of [...] an appointment with your doctor or certified nurse-welt rander. Your first visit will provide information that can be used to check for any problems asyour progresses. Where can you learn more? 1. Go to https://Helpr/Ankerary or Roller/Conversion InnovationsraSavor. 2. Enter R938 in the search box. Current as of: September 23, 2018 Content Version: 12.2 ?? [id number] [employer] Enterprise. Care instructions adapted under license by your healthcare professional. If you have questions about a medical condition or this instruction, always ask your healthcare professional. [employer] disclaims any warranty or liability for your use of this information. COLLECTOR SUPERVISOR documented in this encounter Progress Notes Josephine [...] that they are planning a trip to [place] in May and would like to potentially conceive during the trip. She is wondering about the timing of when she should take it out given this. Post Commander History: Menses: Rare and irregular with Mirena in place. Prior to IUD they were heavy. Contraception: Mirena IUD Pap: Last Pap NIL in 08/2017 in [place]. Records not available Sexual activity: Active with [...] ok with -Reviewed plans for travel to [place] and discuss this in the context of [...] were spent in discussion of preconception counseling COLLECTOR SUPERVISOR documented in this encounter Plan of Treatment Not on filedocumented as of this encounter Procedures Procedure Name Priority Date/Time Associated Diagnosis Comme nts VAGINITIS PANEL Routine 03/18/2019 4:45 PM Vaginal itching Res ults for this TOLL COLLECTOR SUPERVISOR procedure are i n the results section. documented in this encounter Results Vaginitis Panel, DNA Probe (03/18/2019 4:45 PM TOLL COLLECTOR SUPERVISOR) [facility] gist Method Time Signature Gardnerella Negative Negative 03/19/2019 [facility] vaginalis 4:43 PM TOLL COLLECTOR SUPERVISOR LABORATORY China species Negative Negative 03/19/2019 [facility] 4:43 PM TOLL COLLECTOR SUPERVISOR LABORATORY Trichomonas Negative Negative 03/19/2019 [facility] vaginalis 4:43 PM TOLL COLLECTOR SUPERVISOR LABORATORY Specimen Anatomical Collection Method Collection Time Receive d Time (Source) Location / / Volume Laterality Swab (Source SPECIMEN FROM Non-blood 03/18/2019 4:45 PM 03/18/20 19 4:46 Required) VAGINA / Unknown Collection / TOLL COLLECTOR SUPERVISOR PM TOLL COLLECTOR SUPERVISOR Unknown Josephine Prater MD LAB_1 Performing Organization Address City/State/ZIP Code Phon e Number [facility] [address] [place] [address] documented in this encounter Visit Diagnoses Diagnosis Preventative health care - Primary Routine general medical examination at a health care facility Screening for cervical cancer Screening for malignant neoplasm of the cervix Need for influenza vaccination Need for prophylactic vaccination and in oculation against influenza Vaginal itching Pruritus of genital organs Encounter for preconception consultation documented in this encounter Care Teams Milk Runner Relationship Specialty Start Date End Date Found, No Pcp, PCP - General 05/02/15 [address] [place] [address] documented as of this encounter
--- OUTSIDE RECORDS SUMMARY | 2022-03-07 14:55 | XMS_ITS | Encounter Summary ---
:1990 Author Organization [facility] Address [address] [place] [address] Care Team Providers Name Role Phone Found, No Pcp Primary Care Provider Unavailable Reason for Visit Reason Comments IUD Removal Encounter Details Date Type Department Care Team Description 05/20/2019 [facility] Visit [facility], Encounter for removal Services-SOURCING ENGINEER Josephine Bingham MD of intrauterine [address] [place] [address] [address] (Primary Dx) [place] [address] [phone] Social History Tobacco Use Types Packs/Day Years Used Date Smoking Tobacco: Never Smokeless Tobacco: Never Alcohol Use Standard Drinks/Week Comments Yes 2.8 (1 standard drink = 0.6 oz pure alco hol) Sex Assigned at Date Recorded Not on file documented as of this encounter Last Filed Vital Signs Vital Sign Reading Time Taken Comments Blood Pressure 126/63 05/20/2019 4:12 PM SCRAP H[place]ER Pulse 62 05/20/2019 4:12 PM SCRAP H[place]ER Temperature - - Respiratory Rate - - Oxygen Saturation - - Inhaled Oxygen Concentration - - Weight 72.1 kg (159 lb) 05/20/2019 4:12 PM SCRAP H[place]ER Height - - Body Mass Index 24.18 03/18/2019 3:47 PM SCRAP H[place]ER documented in this encounter Progress Notes Josephine [...] clinic with positive UPT. Josephine Prater MD P [place] documented in this encounter Plan of Treatment Not on filedocumented as of this encounter Visit Diagnoses Diagnosis Encounter for removal of intrauterine co ntraceptive device - Primary documented in this encounter Care Teams Dry Cleaning Checker Relationship Specialty Start Date End Date Found, No PcpMD PCP - General 05/02/15 [address] [place] [address] documented as of this encounter
--- OUTSIDE RECORDS SUMMARY | 2022-03-07 14:55 | XMS_ITS | Encounter Summary ---
:1990 Author Organization [facility] Address [address] [place] [address] Care Team Providers Name Role Phone Brisa Smith PA-C Primary Care Provider Reason for Visit Reason Comments INJURY, SHOULDER Encounter Details Date Type Department Care Team Description 06/12/2011 Telephone [facility] Brisa Smith PA-C INJURY, SHOULDER [address] [place] [address] [place] [phone] [place], [place] [address] (Wo rk) Social History [...] Friday for appt, as she is in [place] at school, but will also check with her parents on if their insurance covers somewhere down there in case pain worsens. She will ice and us ibuprofen until then. R CONE GRADER Sully Ford Leena - 06/12/2011 9:49 AM CST Non -Symptom Message from [facility] Primary Care Provider: Brisa Smith PA-C Message: Pt would like advice from a Nurse regarding her shoulder pain R CONE GRADER documented in this encounter Plan of Treatment Not on filedocumented as of this encounter Visit Diagnoses Not on filedocumented in this encounter Care Teams Open Shank Coverer Relationship Specialty Start Date End Date Brisa Smith PA-C PCP - General 07/30/10 04/18/15 [address] [place] [address] documented as of this encounter
--- OUTSIDE RECORDS SUMMARY | 2022-03-07 14:55 | XMS_ITS | Encounter Summary ---
:1990 Author Organization [facility] Address [address] [place] [place] [address] Care Team Providers Name Role Phone Brisa Smith PA-C Primary Care Provider Encounter Details Date Type Department Care Team Description 04/19/2011 Lab Visit [facility] Acute pharyngitis [address] [place] [address] Social History Tobacco Use Types Packs/Day Years Used Date Smoking Tobacco: Never Assessed Sex Assigned at Date Recorded Not on file documented as of this encounter Plan of Treatment Not on filedocumented as of this encounter Procedures Procedure Name Priority Date/Time Associated Diagnosis Comme nts COMPLETE BLOOD Routine 04/19/2011 10:33 Acute pharyngitis Resu lts for this COUNT-W/DIFF AM STAGE MANAGER procedure are i n the results section. DIFFERENTIAL Routine 04/19/2011 10:33 Results for this AM STAGE MANAGER procedure are i n the results section. VENIPUNCTURE (THALIA) Routine 04/19/2011 Results for this procedure are i n the results section. documented in this encounter Results Differential (04/19/2011 10:33 AM STAGE MANAGER) P athologist Signature Absolute 4.5 1.8 - [...] / Volume Laterality 04/19/2011 10:33 04/19/2011 AM STAGE MANAGER 10:33 AM STAGE MANAGER Narrative HP CONVERSION - 04/19/2011 10:36 AM STAGE MANAGER Performed at [facility], [address] [place], [place] [address] Norberto Pandya MD LAB_1 Performing Organization Address [facility] Phon e Number HP CONVERSION (ABNORMAL) Hemogram/Plts/Diff (04/19/2011 10:33 AM STAGE MANAGER) [facility] gist Method Time Signature White Blood [...] / Volume Laterality 04/19/2011 10:33 04/19/2011 AM STAGE MANAGER 10:33 AM STAGE MANAGER Narrative HP CONVERSION - 04/19/2011 10:36 AM STAGE MANAGER Performed at [facility], [address] [place], [place] [address] Norberto Pandya MD LAB_1 Performing Organization Address [facility] Phon e Number HP CONVERSION VENIPUNCTURE (THALIA) (04/19/2011) athologist Signature Venipuncture Done HP CONVERSION Specimen (Source) Anatomical Location Collection Method / Collectio n Time Received Time / Laterality Volume 04/19/2011 04/19/2011 Narrative HP CONVERSION - 04/19/2011 10:33 AM STAGE MANAGER Performed at [facility], [address] [place], [place] [address] Norberto Pandya MD LAB_1 Performing Organization Address [facility] Phon e Number HP CONVERSION documented in this encounter Visit Diagnoses Diagnosis Acute pharyngitis documented in this encounter Care Teams Manufacturing Sales Representative Relationship Specialty Start Date End Date Brisa Smith PA-C PCP - General 07/30/10 04/18/15 [address] [place] [address] documented as of this encounter
--- OUTSIDE RECORDS SUMMARY | 2022-03-07 14:55 | XMS_ITS | Encounter Summary ---
:1990 Author Organization [facility] Address [address] [place] [address] Care Team Providers Name Role Phone Brisa Smith PA-C Primary Care Provider Encounter Details Date Type Department Care Team Description 11/18/2008 PN Conversion Only [facility] [address] [place] [address] Social History Tobacco Use Types Packs/Day Years [...] CDT : ??Negative right upper quadrant ultrasound. [id number]/[facility] Dictating JOE MENDES Radiologist Narrative 11/18/2008 8:12 [...] : Negative right upper quadrant ultrasou nd. [id number]/[facility] Dictating JOE MENDES Radiologist Brisa Smith PA-C RAD US documented in this encounter Visit Diagnoses Not on filedocumented in this encounter Care Teams Concaving Machine Operator Relationship Specialty Start Date End Date Brisa Smith PA-C PCP - General 07/30/10 04/18/15 [address] [place] [address] documented as of this encounter
--- OUTSIDE RECORDS SUMMARY | 2022-03-07 14:55 | XMS_ITS | Encounter Summary ---
:1990 Author Organization [facility] Address [address] [place] [address] Care Team Providers Name Role Phone Brisa Smith PA-C Primary Care Provider Reason for Visit Reason Comments Annual Exam Ear Pain Encounter Details Date Type Department Care Team Description 09/02/2011 Office Visit [facility] Jasmin Crystal p hysical exam (Primary Dx); Medicine K Screening for malignant neop lasm of the cervix; [address] Depression, major, recurrent ; [place], [place] Screening for STDs (sexually transmitted diseases); [address] Contraceptive management; [phone] Need vaccinatio n-viral disease; Vacc for viral [...] HI. Denies recent life changes or stressors. 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 Smoking [...] History Narrative Currently home from college. Attends [employer] will be a senior next fall studying [...] adenopathy. Pelvic: Normal external genitalia and urethra. [place], moist vaginal and cervical mucosa, without lesions. [...] profile reviewed. Follow-up 1 month for recheck august need to increase at that time. Follow-up [...] Component Value Ref Test Analysis Performed At [facility] gist Range Method Time Signature Chlamydia [...] The amplified DNA assay is cleared by [facility] for non-medicolegal diagnostic testing in [facility] adult population. Neisseria gonorrhea DNA Probe ?FINAL ? 09/04/11 10:24 Neisseria gonorrhea NEGATIVE by DNA amp lification. The amplified DNA assay is cleared by [facility] for non-medicolegal diagnostic testing in [facility] adult population. Specimen (Source) Anatomical Collection [...] CDT Final GYNECOLOGICAL CYTOLOGY REPORT Pathology #: [id number] ?Date Obtained: 09/02/2011 ? Date Received: 09/03/2011 INTERPRETATION/RESULTS: Negative for Intraepithelial Lesion or M alignancy SPECIMEN ADEQUACY: Satisfactory for Evaluation. ??Endocervi yonatan cells/transformation zone component present. Verified on 09/05/2011 ??by TOM HA, CT(ASCP) (electronic signature) CLINICAL NOTES: ? LMP: [...] Report Jasmin Crystal LAB_1 Performing Organization Address City/State/ZIP Code Phon e Number HP CONVERSION Pap Smear Screening (09/02/2011 9:45 AM CDT) P athologist Signature PAP Routine Collected HP CONVERSION Specimen (Source) Anatomical Collection Method Collection Time Re ceived Time Location / / Volume Laterality 09/02/2011 9:45 AM CDT Jasmin [place] LAB_1 Performing Organization Address City/[facility] Phon e Number HP CONVERSION documented in [...] unspecified documented in this encounter Care Teams Financial Accounting Analyst Relationship Specialty Start Date End Date Brisa Smith PA-C PCP - General 07/30/10 04/18/15 [address] [place] [address] documented as of this encounter
--- OUTSIDE RECORDS SUMMARY | 2022-03-07 14:56 | XMS_ITS | Encounter Summary ---
:1990 Author Organization [facility] Address [address] [place] [address] Care Team Providers Name Role Phone Brisa Smith PA-C Primary Care Provider Encounter Details Date Type Department Care Team Description 07/02/2005 Office Visit [facility] Sussy Enciso, [address] APRN, [place] [address] Social History Tobacco Use Types Packs/Day Years Used Date Smoking Tobacco: Never Assessed Sex Assigned at Date Recorded Not on file documented as of this encounter Last Filed Vital Signs Vital Sign Reading Time Taken Comments Blood Pressure 110/70 07/02/2005 3:10 PM IV TECHNICIAN Pulse 82 07/02/2005 3:10 PM IV TECHNICIAN Temperature - - Respiratory Rate - - Oxygen Saturation - - Inhaled Oxygen Concentration - - Weight 66.6 kg (146 lb 12.5 oz) 07/02/2005 3:10 PM IV TECHNICIAN C: 66.6kg Height - - Body Mass Index 22.32 06/28/2005 2:55 PM IV TECHNICIAN Body Mass Index Percentile 71.37 % 07/02/2005 3:10 PM CS T Growth Chart: CDC (Girls, 2-20 Years) documented in this encounter Progress Notes Sussy Enciso APRN, CNP - 07/02/2005 12:01 AM CST Progress Notes signed by Sussy Enciso APRN, CNP at 07/02/05 1720 Author: GUILLAUME Stevens Service: (none) Author Type: Nurse Practitioner Filed: 08/17/10 1153 Note Time: 07/02/05 0001 Status: Signed Digital Media Analyst: GUILLAUME Stevens (Nurse Practitioner) Subjective: Patient presents [...] is instructed to make a lab appointment. TECHNICIAN documented in this encounter Plan of Treatment Not on filedocumented as of this encounter Visit Diagnoses Not on filedocumented in this encounter Care Teams Tuber Machine Cutter Relationship Specialty Start Date End Date Brisa Smith PA-C PCP - General 07/30/10 04/18/15 [address] [place] [address] documented as of this encounter
--- OUTSIDE RECORDS SUMMARY | 2022-03-07 14:56 | XMS_ITS | Encounter Summary ---
:1990 Author Organization [facility] Address [address] [place] [address] Care Team Providers Name Role Phone Lynette Smith PA-C Primary Care Provider Encounter Details Date Type Department Care Team Description 09/07/2007 Office Visit [facility] Lynette Smith PA-C [facility] [place] [address] [address] [place], [place] [address] (Wo rk) Social History [...] % 09/07/2007 1:11 PM CDT Growth Chart: CDC (Girls, 2-20 Years) documented in this encounter Progress Notes Lynette Smith PA-C - 09/07/2007 12:01 AM CDT Progress Notes signed by Lynette Smith PA-C at 09/11/07 1037 Author: Lynette Smith PA-C Service: (none) Author Type: Physician Aerospace Project Engineer Filed: 08/18/10 0546 Note Time: 09/07/07 0001 Status: Signed Neighborhood Aide: Lynette Smith PA-C (Physician Aerospace Project Engineer) NAME: MINO POSADAS MR#: [id number] ACCT: [id number] VISIT: [id number] DICTATING CLINICIAN: LYNETTE SMITH PA-C JOB: [id number] LOC: 1702 CLINIC PROGRESS NOTE DATE OF VISIT: 09/07/2007 SUBJECTIVE: Mino is 17 years old and presents to the clinic today for a sports physical and immunization update. She will be attending [employer] next year. She will also be on the track team. QUALITY CONTROL INSPECTOR HEADING HISTORY: Periods are currently regular, not sexually [...] cardiac or cancer. SOCIAL HISTORY: She attends [employer]. Does not smoke, drink alcohol, or use [...] or problems. IMPRESSION: Routine health maintenance examination. TMG:[id number] C: 09/09/07 14:31 DOCUMENT: [id number] documented in this encounter Plan of Treatment Not on filedocumented as of this encounter Visit Diagnoses Not on filedocumented in this encounter Care Teams Glass Cutting Machine Feeder Relationship Specialty Start Date End Date Lynette Smith PA-C PCP - General 07/30/10 04/18/15 [address] [place] [address] documented as of this encounter
--- OUTSIDE RECORDS SUMMARY | 2022-03-07 14:56 | XMS_ITS | Encounter Summary ---
:1990 Author Organization [facility] Address [address] [place] [address] Care Team Providers Name Role Phone Brisa Smith PA-C Primary Care Provider Encounter Details Date Type Department Care Team Description 11/25/2006 Office Visit Rahat Mckeon PA-C Replaced by [facility] [employer] [facility] [email or web address] [address] [place] [address] [phone] (Wo rk) Social History Tobacco Use Types [...] Mix PA-C Service: (none) Author Type: Physician V Groove Cutter Filed: 08/17/10 2207 Note Time: 11/25/06 0001 Status: Signed News Intern: Rahat Mix PA-C (Physician V Groove Cutter) Preventive Exam & Pelvic IMPRESSION: Routine preventive [...] current method of contraception Past Medical History: Geochemical Manager History: Pt. has never been . Menstrual [...] and updated on the Health Profile of [facility]. Current Medications: Reviewed today and updated on Health Profile in [facility]. Family History: (First degree family members) Asthma. Social History: Employment status: Student. Marital Status: Single. 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 She will play volleyball [...] adenopathy. Pelvic: Normal external genitalia and urethra. [place], moist vaginal and cervical mucosa, without lesions. [...] reviewed and updated in Health Profile of [facility]. Pt. is up to date. Recommended meningitis [...] on filedocumented in this encounter Care Teams Snow Shoveler Relationship Specialty Start Date End Date Brisa Smith PA-C PCP - General 07/30/10 04/18/15 [address] [place] [address] documented as of this encounter
--- OUTSIDE RECORDS SUMMARY | 2022-03-07 14:56 | XMS_ITS | Encounter Summary ---
:1990 Author Organization [facility] Address [address] [place] [address] Care Team Providers Name Role Phone Brisa Smith PA-C Primary Care Provider Encounter Details Date Type Department Care Team Description 09/07/2007 PN Conversion Only [place] CONVERSION Brisa Smith, [address] [place] [address] [place], [place] [address] (Wo rk) Social History [...] Complete Blood Count-W/Diff (09/07/2007 2:12 PM CDT) [facility] Method Time Signature White Blood Cell [...] - HP CONVERSION Hemoglobin Conc 36.5 gm/dL [place] RDW 12.6 11.0 - HP CONVERSION 15.0 [...] Brisa Smith PA-C LAB_1 Performing Organization Address City/[facility]/ZIP Code Phon e Number HP CONVERSION Cholesterol, Total and HDL (09/07/2007 2:12 PM CDT) Analysis Performed At Patho logist Time Signature Cholesterol/HDL 2.4 No normal [...] Specific 1.015 1.005 - 25 HP CONVERSION [place] Specimen (Source) Anatomical Collection Method Collection Time Re ceived Time Location / / Volume Laterality 09/07/2007 2:12 PM CDT Brisa Smith PA-C LAB_1 Performing Organization Address City/[facility] Phon e Number HP CONVERSION Urinalysis Microscopic (09/07/2007 2:12 PM CDT) [facility] Method Time Signature White Blood 0-2/HPF 0 - 3 HP CONVERSION Cells Urine Red Blood Cells Negative 0 - 2 HP CONVERSION Urine Epithelial Few Few /HPF HP CONVERSION Cells Crystals Amorph None HP CONVERSION Specimen (Source) Anatomical Collection Method Collection Time Re ceived Time Location / / Volume Laterality 09/07/2007 2:12 PM CDT Brisa Smith PA-C LAB_1 Performing Organization Address City/[facility] Phon e Number HP CONVERSION documented in this encounter Visit Diagnoses Not on filedocumented in this encounter Care Teams Prize Coordinator Relationship Specialty Start Date End Date Brisa Smith PA-C PCP - General 07/30/10 04/18/15 [address] [place] [address] documented as of this encounter
--- OUTSIDE RECORDS SUMMARY | 2022-03-07 14:56 | XMS_ITS | Encounter Summary ---
:1990 Author Organization [facility] Address [address] [place] [address] Care Team Providers Name Role Phone Brisa Smith PA-C Primary Care Provider Encounter Details Date Type Department Care Team Description 09/02/2008 Office Visit Rocio Griffiths MB[facility] [employer] [address] [place] [address] [place] [address] [place] [address] [phone] (Wo rk) Social History Tobacco Use Types [...] Service: (none) Author Type: Physician Filed: 08/18/10 1418 Note Time: 09/02/082016 Status: Signed Department Coordinator: ZAK Giles (Physician) SUBJECTIVE: 17-year-old patient with [...] on filedocumented in this encounter Care Teams Dry End Operator Relationship Specialty Start Date End Date Brisa Smith PA-C PCP - General 07/30/10 04/18/15 [address] [place] [address] documented as of this encounter
--- OUTSIDE RECORDS SUMMARY | 2022-03-07 14:56 | XMS_ITS | Encounter Summary ---
:1990 Author [facility] Address [address] [place] [address] Care Team Providers Name Role Phone Brisa Smith PA-C Primary Care Provider Encounter Details Date Type Department Care Team Description 07/16/2006 PN Conversion Only [place] CONVERSION [address] [place] [address] Social History Tobacco Use Types Packs/Day Years Used Date Smoking Tobacco: Never Assessed Sex Assigned at Date Recorded Not on file documented as of this encounter Plan of Treatment Not on filedocumented as of this encounter Visit Diagnoses Not on filedocumented in this encounter Care Teams Backbreaker Relationship Specialty Start Date End Date Brisa Smith PA-C PCP - General 07/30/10 04/18/15 [address] [place], [place] [address] documented as of this encounter
--- OUTSIDE RECORDS SUMMARY | 2022-03-07 14:56 | XMS_ITS | Encounter Summary ---
:1990 Author Organization [facility] Address [address] [place] [address] Care Team Providers Name Role Phone Brisa Smith PA-C Primary Care Provider Encounter Details Date Type Department Care Team Description 07/05/2005 Office Visit [facility] Gabo Weiner MD Subspecialty [address] [place] [address] [place], [place] [address] [phone] Social History Tobacco Use Types Packs/Day Years [...] 1159 Note Time: 07/05/05 0001 Status: Signed Commercial Credit Portfolio Manager: Jarrett Weiner MD (Physician) NAME: MINO POSADAS MR: [id number] ACCT: [id number] VISIT: [id number] DICTATING CLINICIAN: JARRETT WEINER MD JOB: [id number] CLINIC PROGRESS NOTE DATE OF VISIT: 07/05/2005 SUBJECTIVE: : 1990. Mino is 14 years old. I had seen her on the 06/28 in consultation with fatigue, bitemporal headaches that [...] has also had evaluation by ENT and DRILL PRESS SET UP OPERATOR RADIAL since our last visit. She has some [...] evaluation today, her followup and our plans. SCM:[id number] C: 07/09/05 05:17 DOCUMENT: [id number] E PROCESSING TECHNICIAN documented in this encounter Plan of Treatment Not on filedocumented as of this encounter Visit Diagnoses Not on filedocumented in this encounter Care Teams Spinning Mule Tender Relationship Specialty Start Date End Date Brisa Smith PA-C PCP - General 07/30/10 04/18/15 [address] [place] [address] documented as of this encounter
--- OUTSIDE RECORDS SUMMARY | 2022-03-07 14:56 | XMS_ITS | Encounter Summary ---
:1990 Author Organization [facility] Address [address] [place] [place] [address] Care Team Providers Name Role Phone Brisa Smith PA-C Primary Care Provider Encounter Details Date Type Department Care Team Description 07/26/2005 Office Visit [facility] Gabo Weiner MD Subspecialty [address] [place], [place] [address] [place] [address] [phone] Social History Tobacco Use Types Packs/Day Years Used Date Smoking Tobacco: Never Assessed Sex Assigned at Date Recorded Not on file documented as of this encounter Last Filed Vital Signs Vital Sign Reading Time Taken Comments Blood Pressure 104/60 07/26/2005 3:27 PM LINE SUPERVISOR Pulse 59 07/26/2005 3:27 PM LINE SUPERVISOR Temperature - - Respiratory Rate - - Oxygen Saturation - - Inhaled Oxygen Concentration - - Weight 66 kg (145 lb 7.7 oz) 07/26/2005 3:27 PM LINE SUPERVISOR C: 66.0kg Height 172.7 cm (5' 8) 07/26/2005 3:27 PM LINE SUPERVISOR C: 172.7 cm Body Mass Index 22.12 07/26/2005 3:27 PM LINE SUPERVISOR Body Mass Index Percentile 69.33 % 07/26/2005 3:27 PM CS T Growth Chart: [facility] (Girls, 2-20 Years) documented in this encounter Progress Notes Jarrett Weiner MD - 07/26/2005 12:01 AM CST Progress Notes signed by Jarrett Weiner MD at 08/09/05 1355 Author: Jarrett Weiner MD Service: (none) Author Type: Physician Filed: 08/17/10 1225 Note Time: 07/26/05 0001 Status: Signed Network Operations Project Manager: Jarrett Weiner MD (Physician) NAME: MINO POSADAS MR: [id number] ACCT: [id number] VISIT: [id number] DICTATING CLINICIAN: JARRETT WEINER MD JOB: [id number] CLINIC PROGRESS NOTE DATE OF VISIT: 07/26/2005 [...] metronidazole and continuing with Zelnorm, and followup. SCM:[id number] C: 07/30/05 15:07 DOCUMENT: [id number] documented in this encounter Plan of Treatment Not on filedocumented as of this encounter Visit Diagnoses Not on filedocumented in this encounter Care Teams Saw Filer Relationship Specialty Start Date End Date Birsa Smith PA-C PCP - General 07/30/10 04/18/15 [address] [place] [address] documented as of this encounter
--- OUTSIDE RECORDS SUMMARY | 2022-03-07 14:56 | XMS_ITS | Encounter Summary ---
:1990 Author Organization [facility] Address [address], [place] [address] Care Team Providers Name Role Phone Brisa Smith PA-C Primary Care Provider Encounter Details Date Type Department Care Team Description 07/11/2007 PN Conversion Only [facility] Roxanne Perera, [address] [place] [address] Social History Tobacco Use Types Packs/Day Years [...] Rapid Strep Follow up Culture ? Collected: ??[id number] ??[id number] Source: Throat ?Processed: ??[id number] ??1502 ? 1V Final Report ------ ?[id number] ??0756 No beta hemolytic Strep group A isolated . Specimen (Source) Anatomical Collection Method Collection Time Re ceived Time Location / / Volume Laterality 07/11/2007 2:42 PM CDT Roxanne Serrato MD LAB_1 Performing Organization Address City/State/ZIP Code Phon e Number HP CONVERSION documented in this encounter Visit Diagnoses Not on filedocumented in this encounter Care Teams Steel Chipper Relationship Specialty Start Date End Date Brisa Smith PA-C PCP - General 07/30/10 04/18/15 [address] [place] [address] documented as of this encounter
--- OUTSIDE RECORDS SUMMARY | 2022-03-07 14:56 | XMS_ITS | Encounter Summary ---
:1990 Author Organization [facility] Address [address] [place] [address] Care Team Providers Name Role Phone Brisa Smith PA-C Primary Care Provider Encounter Details Date Type Department Care Team Description 07/11/2007 Office Visit [facility] [place] [address] [place] [address] Social History Tobacco Use Types [...] 0320 Note Time: 07/11/07 0001 Status: Signed Medicare Sales Representative: Roxanne Flores MD (Physician) NAME: MINO POSADAS MR#: [id number] ACCT: [id number] VISIT: [id number] DICTATING CLINICIAN: ROXANNE FLORES MD JOB: [id number] LOC: 520 CLINIC PROGRESS NOTE DATE OF [...] recommend symptomatic treatment, and recheck as needed. FK:[id number] C: 07/13/07 12:26 DOCUMENT: [id number] documented in this encounter Plan of Treatment Not on filedocumented as of this encounter Visit Diagnoses Not on filedocumented in this encounter Care Teams Sales Ambassador Relationship Specialty Start Date End Date Brisa Smith PA-C PCP - General 07/30/10 04/18/15 [address] [place] [address] documented as of this encounter
--- OUTSIDE RECORDS SUMMARY | 2022-03-07 14:56 | XMS_ITS | Encounter Summary ---
:1990 Author Organization [facility] Address [address] [place] [address] Care Team Providers Name Role Phone Lynette Smith PA-C Primary Care Provider Reason for Visit Reason Comments Other Encounter Details Date Type Department Care Team Description 09/23/2007 Telephone Tofte [facility] Amos e Lynette Smith PA-C Other Pending sale to [facility] [place] [address] [place] [address] [phone] (Wo rk) Social History Tobacco Use Types Packs/Day Years Used Date Smoking Tobacco: Never Assessed Sex Assigned at Date Recorded Not on file documented as of this encounter [facility], Message - 09/23/2007 10:58 AM CDT Phone Note filed by [employer] at 08/15/102145 Author: [employer] Service: (none) Author Type: (none) Filed: 08/15/102145 Note Time: 09/23/071057 Status: Signed Mold Changer: [employer] Lab/Radiology Results Caller Name/Relationship:mom Primary Screw Down:manuel What test result is needed?sickle cell When and where was test done?09/06 ludy Who ordered the test?manuel Back Hanger: Best call back number:[phone] Is it OK to leave a confidential [...] missed. Acknowledged by LYNETTE SMITH on 3:08pm D DEVELOPMENT CONSULTANT documented in this encounter Plan of Treatment Not on filedocumented as of this encounter Visit Diagnoses Not on filedocumented in this encounter Care Teams Interface Control Officer Relationship Specialty Start Date End Date Lynette Smith PA-C PCP - General 07/30/10 04/18/15 [address] [place] [address] documented as of this encounter
--- OUTSIDE RECORDS SUMMARY | 2022-03-07 14:56 | XMS_ITS | Encounter Summary ---
:1990 Author Organization [facility] Address [address] [place] [address] Care Team Providers Name Role Phone Brisa Smith PA-C Primary Care Provider Encounter Details Date Type Department Care Team Description 07/05/2005 PN Conversion Only [employer] CONVERSI ON Jarrett Weiner, [address] [place] [address] [address] [place] [address] (Wo rk) Social History Tobacco Use Types Packs/Day Years Used Date Smoking Tobacco: Never Assessed Sex Assigned at Date Recorded Not on file documented as of this encounter Plan of Treatment Not on filedocumented as of this encounter Procedures Procedure Name Priority Date/Time Associated Comments Diagnosis LAB IGM Routine 07/05/2005 3:14 PM Results f or this MEDICAL STAFF SERVICES COORDINATOR procedure are i n the results section. CARDIOLIPIN Routine 07/05/2005 3:14 PM Results f or this ANTIBODIES, IGG AND MEDICAL STAFF SERVICES COORDINATOR procedur e are in IGM the results section. THYROID STIMULATING Routine 07/05/2005 3:14 PM Re sults for this HORMONE MEDICAL STAFF SERVICES COORDINATOR procedure are i n the results section. CREATININE / GFR Routine 07/05/2005 3:14 PM Resul ts for this MEDICAL STAFF SERVICES COORDINATOR procedure are i n the results section. IGE, MILK (F2) Routine 07/05/2005 3:14 PM Results for this MEDICAL STAFF SERVICES COORDINATOR procedure are i n the results section. COMPLETE BLOOD Routine 07/05/2005 3:14 PM Results for this COUNT-W/DIFF MEDICAL STAFF SERVICES COORDINATOR procedure are i n the results section. BILIRUBIN, TOTAL & Routine 07/05/2005 3:14 PM Res ults for this DIRECT MEDICAL STAFF SERVICES COORDINATOR procedure are i n the results section. FREE T4 Routine 07/05/2005 3:14 PM Results f or this MEDICAL STAFF SERVICES COORDINATOR procedure are i n the results section. IGG, SERUM Routine 07/05/2005 3:14 PM Results f or this MEDICAL STAFF SERVICES COORDINATOR procedure are i n the results section. IGE TOTAL Routine 07/05/2005 3:14 PM Results f or this MEDICAL STAFF SERVICES COORDINATOR procedure are i n the results section. IGA, SERUM Routine 07/05/2005 3:14 PM Results f or this MEDICAL STAFF SERVICES COORDINATOR procedure are i n the results section. C-REACTIVE PROTEIN Routine 07/05/2005 3:14 PM Res ults for this MEDICAL STAFF SERVICES COORDINATOR procedure are i n the results section. AST Routine 07/05/2005 3:14 PM Results f or this MEDICAL STAFF SERVICES COORDINATOR procedure are i n the results section. LD TOTAL (LDH) Routine 07/05/2005 3:14 PM Results for this MEDICAL STAFF SERVICES COORDINATOR procedure are i n the results section. BUN Routine 07/05/2005 3:14 PM Results f or this MEDICAL STAFF SERVICES COORDINATOR procedure are i n the results section. documented in this encounter Results Complete Blood Count-W/Diff (07/05/2005 3:14 PM MEDICAL STAFF SERVICES COORDINATOR) [facility] gist Method Time Signature White Blood [...] - HP CONVERSION Hemoglobin Conc 36.5 gm/dL Nye RDW 12.2 11.0 - HP CONVERSION 15.0 [...] / / Volume Laterality 07/05/2005 3:14 PM MEDICAL STAFF SERVICES COORDINATOR Jarrett Weiner MD LAB_1 Performing Organization Address City/[facility]/ZIP Code Phon e Number HP CONVERSION AST (07/05/2005 3:14 PM MEDICAL STAFF SERVICES COORDINATOR) [facility] Method Time Signature Aspartate 20 0 - 45 HP CONVERSION Aminotransferase U/L Specimen (Source) Anatomical Collection Method Collection Time Re ceived Time Location / / Volume Laterality 07/05/2005 3:14 PM MEDICAL STAFF SERVICES COORDINATOR Jarrett Weiner MD LAB_1 Performing Organization Address City/[facility] Phon e Number HP CONVERSION Bilirubin, Total & Direct (07/05/2005 3:14 PM MEDICAL STAFF SERVICES COORDINATOR) athologist Signature Bilirubin Total 0.2 0.2 - 1.2 HP CONVERSION mg/dL Bilirubin, 0.1 0.0 - 0.4 HP CONVERSION Direct mg/dL Specimen (Source) Anatomical Collection Method Collection Time Re ceived Time Location / / Volume Laterality 07/05/2005 3:14 PM MEDICAL STAFF SERVICES COORDINATOR Jarrett Weiner MD LAB_1 Performing Organization Address City/[facility] Code Phon e Number HP CONVERSION BUN (07/05/2005 3:14 PM MEDICAL STAFF SERVICES COORDINATOR) athologist Signature Blood Urea 13 5 - 26 HP CONVERSION Nitrogen mg/dL Specimen (Source) Anatomical Collection Method Collection Time Re ceived Time Location / / Volume Laterality 07/05/2005 3:14 PM MEDICAL STAFF SERVICES COORDINATOR Jarrett Weiner MD LAB_1 Performing Organization Address City/[facility]/ZIP Code Phon e Number HP CONVERSION Creatinine / GFR (07/05/2005 3:14 PM MEDICAL STAFF SERVICES COORDINATOR) athologist Signature Creatinine 0.8 0.5 - 1.5 HP CONVERSION Serum mg/dL Specimen (Source) Anatomical Collection Method Collection Time Re ceived Time Location / / Volume Laterality 07/05/2005 3:14 PM MEDICAL STAFF SERVICES COORDINATOR Jarrett Weiner MD LAB_1 Performing Organization Address City/[facility]/ZIP Code Phon e Number HP CONVERSION LD Total (LDH) (07/05/2005 3:14 PM MEDICAL STAFF SERVICES COORDINATOR) [facility] Method Time Signature Lactic Acid 169 90 - 180 HP CONVERSION Dehydrogenase U/L Specimen (Source) Anatomical Collection Method Collection Time Re ceived Time Location / / Volume Laterality 07/05/2005 3:14 PM MEDICAL STAFF SERVICES COORDINATOR Jarrett Donnell Weiner MD LAB_1 Performing Organization Address City/State/ZIP Code Phon e Number HP CONVERSION C-Reactive Protein (07/05/2005 3:14 PM MEDICAL STAFF SERVICES COORDINATOR) athologist Signature CRP <0.2 0.0 - 0.9 HP CONVERSION mg/dL Specimen (Source) Anatomical Collection Method Collection Time Re ceived Time Location / / Volume Laterality 07/05/2005 3:14 PM MEDICAL STAFF SERVICES COORDINATOR Jarrett Donnell Weiner MD LAB_1 Performing Organization Address City/State/ZIP Code Phon e Number HP CONVERSION IgA, Serum (07/05/2005 3:14 PM MEDICAL STAFF SERVICES COORDINATOR) Analysis Performed At [facility] Signature Immunoglobulin A 109 51 - 190 HP CONVERSION mg/dL Specimen (Source) Anatomical Collection Method Collection Time Re ceived Time Location / / Volume Laterality 07/05/2005 3:14 PM MEDICAL STAFF SERVICES COORDINATOR Jarrett Weiner MD LAB_1 Performing Organization Address City/[facility] Code Phon e Number HP CONVERSION Igg, Serum (07/05/2005 3:14 PM MEDICAL STAFF SERVICES COORDINATOR) Analysis Performed At [facility] Signature Immunoglobulin G 1,360 669 - HP CONVERSION 1,529 mg/dL Specimen (Source) Anatomical Collection Method Collection Time Re ceived Time Location / / Volume Laterality 07/05/2005 3:14 PM MEDICAL STAFF SERVICES COORDINATOR Jarrett Weiner MD LAB_1 Performing Organization Address City/[facility] Code Phon e Number HP CONVERSION IgE Total (07/05/2005 3:14 PM MEDICAL STAFF SERVICES COORDINATOR) Analysis Performed At [facility] Signature Immunoglobulin E 30 0 - 180 HP CONVERSION IU/mL Comment: Interpretive data: TEST INFORMATION: Immunoglobulin E To convert to ng/mL, multiply IU/mL by 2 .4. Specimen (Source) Anatomical Collection Method Collection Time Re ceived Time Location / / Volume Laterality 07/05/2005 3:14 PM MEDICAL STAFF SERVICES COORDINATOR Jarrett Weiner MD LAB_1 Performing Organization Address City/[facility]/ZIP Code Phon e Number HP CONVERSION IGM (07/05/2005 3:14 PM MEDICAL STAFF SERVICES COORDINATOR) Analysis Performed At Patho logist Time Signature Immunoglobulin M 46 37 - 314 HP CONVERSION mg/dL Specimen (Source) Anatomical Collection Method Collection Time Re ceived Time Location / / Volume Laterality 07/05/2005 3:14 PM MEDICAL STAFF SERVICES COORDINATOR Jarrett Weiner MD LAB_1 Performing Organization Address City/State/ZIP Code Phon e Number HP CONVERSION Free T4 (07/05/2005 3:14 PM MEDICAL STAFF SERVICES COORDINATOR) P athologist Signature Thyroxine, Free 1.4 0.8 - 1.5 HP CONVERSION ng/dL Specimen (Source) Anatomical Collection Method Collection Time Re ceived Time Location / / Volume Laterality 07/05/2005 3:14 PM MEDICAL STAFF SERVICES COORDINATOR Jarrett Weiner MD LAB_1 Performing Organization Address City/State/ZIP Code Phon e Number HP CONVERSION Thyroid Stimulating Hormone (07/05/2005 3:14 PM MEDICAL STAFF SERVICES COORDINATOR) P athologist Signature Thyroid 1.09 0.20 - HP CONVERSION Stimulating 4.50 Hormone uIU/mL Specimen (Source) Anatomical Collection Method Collection Time Re ceived Time Location / / Volume Laterality 07/05/2005 3:14 PM MEDICAL STAFF SERVICES COORDINATOR Jarrett Weiner MD LAB_1 Performing Organization Address City/State/ZIP Code Phon e Number HP CONVERSION Cardiolipin Antibodies (07/05/2005 3:14 PM MEDICAL STAFF SERVICES COORDINATOR) [facility] gist Method Time Signature Anticardiolipin IgG 13 [...] with antiphospholipid antibody syndrome (Br J Rheumatol 26:502-964 7222) have moderate or high l evels of [...] with antiphospholipid antibody syndrome (Br J Rheumatol 26:670-042 9649) have moderate or high l evels of cardiolipin antibodies and are positive for IgG only, or IgG and IgM. Specimen (Source) Anatomical Collection Method Collection Time Re ceived Time Location / / Volume Laterality 07/05/2005 3:14 PM MEDICAL STAFF SERVICES COORDINATOR Jarrett Weiner MD LAB_1 Performing Organization Address City/[facility]/ZIP Code Phon e Number HP CONVERSION IgE, Milk (F2) (07/05/2005 3:14 PM MEDICAL STAFF SERVICES COORDINATOR) P athologist Signature Milk IgE <0.35 kU/L HP CONVERSION Comment: Class 0 (Negative <0.35) Specimen (Source) Anatomical Collection Method Collection Time Re ceived Time Location / / Volume Laterality 07/05/2005 3:14 PM MEDICAL STAFF SERVICES COORDINATOR Jarrett Weiner MD LAB_1 Performing Organization Address City/[facility] Phon e Number HP CONVERSION documented in this encounter Visit Diagnoses Not on filedocumented in this encounter Care Teams Sewing Machine Operator Semiautomatic Relationship Specialty Start Date End Date Brisa Smith PA-C PCP - General 07/30/10 04/18/15 [address] [place] [address] documented as of this encounter
--- OUTSIDE RECORDS SUMMARY | 2022-03-07 14:56 | XMS_ITS | Encounter Summary ---
:1990 Author Organization [facility] Address [address] [place] [address] Care Team Providers Name Role Phone Brisa Smith PA-C Primary Care Provider Encounter Details Date Type Department Care Team Description 01/17/2007 Office Visit [facility] [place] [address] [place] [address] [phone] Social History Tobacco Use Types Packs/Day Years [...] Service: (none) Author Type: Physician Filed: 08/17/10 2314 Note Time: 01/17/07 0001 Status: Signed Labourers: Jagdeep Kwok MD (Physician) NAME: MINO POSADAS MR#: [id number] ACCT: [id number] VISIT: [id number] DICTATING CLINICIAN: Jagdeep Kwok MD JOB: [id number] LOC: 520 CLINIC PROGRESS NOTE DATE OF [...] Zithromax was given for the second week. BOR:[id number] C: 01/18/07 18:42 DOCUMENT: [id number] documented in this encounter Plan of Treatment Not on filedocumented as of this encounter Visit Diagnoses Not on filedocumented in this encounter Care Teams Demand Planning Analyst Relationship Specialty Start Date End Date Brisa Smith PA-C PCP - General 07/30/10 04/18/15 [address] [place] [address] documented as of this encounter
--- OUTSIDE RECORDS SUMMARY | 2022-03-07 14:56 | XMS_ITS | Encounter Summary ---
:1990 [facility] Address [address] [place] [address] Care Team Providers Name Role Phone Brisa Smith PA-C Primary Care Provider Encounter Details Date Type Department Care Team Description 07/04/2005 Office Visit [facility] [address] Ear, Luz Fajardo MD Nose, and Throat [address] [facility] [address] [facility] [place] [address] [place], [place] [address] [phone] Social History Tobacco Use Types Packs/Day Years [...] 1156 Note Time: 07/04/05 0001 Status: Signed Gaming Host: Luz Fajardo MD (Physician) NAME: MINO POSADAS MR: [id number] ACCT: [id number] VISIT: [id number] DICTATING CLINICIAN: LUZ FAJARDO MD JOB: [id number] CLINIC PROGRESS NOTE DATE OF VISIT: 07/04/2005 [...] visit with a facial pain TMJ clinical cytogenetics director to see if there is any muscle [...] as needed basis. CC: JARRETT WEINER MD [facility] SMS:[id number] C: 07/04/05 14:01 DOCUMENT: [id number] IVAL SPECIALIST documented in this encounter Plan of Treatment Not on filedocumented as of this encounter Visit Diagnoses Not on filedocumented in this encounter Care Teams Creative Recruiter Relationship Specialty Start Date End Date Brisa Smith PA-C PCP - General 07/30/10 04/18/15 [address] [place] [address] documented as of this encounter
--- OUTSIDE RECORDS SUMMARY | 2022-03-07 14:56 | XMS_ITS | Encounter Summary ---
:1990 Author Organization [facility] Address [address] [place] [address] Care Team Providers Name Role Phone Brisa Smith PA-C Primary Care Provider Encounter Details Date Type Department Care Team Description 04/17/2007 Office Visit [facility] Candis Hagen PA-C [address] [employer] [facility] [address] [place] [id number] [place] [address] [phone] (Wo rk) Social History Tobacco Use Types Packs/Day Years Used Date Smoking Tobacco: Never Assessed Sex Assigned at Date Recorded Not on file documented as of this encounter Last Filed Vital Signs Vital Sign Reading Time Taken Comments Blood Pressure 104/56 04/17/2007 8:00 AM WOOD CABINETMAKER Pulse - - Temperature - - Respiratory Rate - - Oxygen Saturation - - Inhaled Oxygen Concentration - - Weight 66.2 kg (145 lb 15.8 oz) 04/17/2007 8:00 AM WOOD CABINETMAKER C: 66.2kg Height - - Body Mass Index - - documented in this encounter Progress Notes Candis Lang PA-C - 04/17/2007 12:01 AM CST Progress Notes signed by Candis Lang PA-C at 04/24/07 1424 Author: Candis Lang PA-C Service: (none) Author Type: Physician Sales Ambassador Filed: 08/18/10 0116 Note Time: 04/17/07 0001 Status: Signed Millwright Instructor: Candis Lang PA-C (Physician Sales Ambassador) NAME: MINO POSADAS MR#: [id number] ACCT: [id number] VISIT: [id number] DICTATING CLINICIAN: THELMA HERNANDEZ JOB: [id number] LOC: 502 CLINIC PROGRESS NOTE DATE OF VISIT: 04/17/2007 SUBJECTIVE: Mino is a 16-year-old female who comes to [...] is not affective, she will follow up. AMS:[id number] C: 04/20/07 15:38 DOCUMENT: [id number] CABINETMAKER documented in this encounter Plan of Treatment Not on filedocumented as of this encounter Visit Diagnoses Not on filedocumented in this encounter Care Teams Manager Simulation Relationship Specialty Start Date End Date Brisa Smith PA-C PCP - General 07/30/10 04/18/15 [address] [place] [address] documented as of this encounter
--- OUTSIDE RECORDS SUMMARY | 2022-03-07 14:56 | XMS_ITS | Encounter Summary ---
:1990 Author Organization [facility] Address [address] [address] Care Team Providers Name Role Phone Brisa Smith PA-C Primary Care Provider Encounter Details Date Type Department Care Team Description 11/25/2006 PN Conversion Only Rahat Booth PA-C [address] [place] [address] [place] [address] (Wo rk) Social History Tobacco Use Types [...] Transmitted Disease Probe (11/25/2006 2:36 PM CDT) [facility] Method Time Signature Sexually SEE TEXT HP CONVERSION Transmitted Disease Probe Comment: Patient: MINO POSADAS Sexually Trans Disease Probe @ ?Collected: ??[id number] ??[id number] Source: ENDOCERV ?Processed: ??[id number] ??[id number] Final Report ------ ?[id number] ??[id number] No Chlamydia trachomatis detected by amp lified DNA assay No Neisseria gonorrhoeae detected by amp lified DNA assay [employer] Amplified DNA assay is amadou red by the FDA for non-medicolegal diagnostic testing in the adult population. @ = Sexually Trans Disease Probe Perform ed at ??[address] [facility] [place] [address] Specimen (Source) Anatomical Collection Method Collection Time Re ceived Time Location / / Volume Laterality 11/25/2006 2:36 PM CDT Rahat Mix PA-C LAB_1 Performing Organization Address City/[facility] Code Phon e Number HP CONVERSION Cholesterol (Total) (11/25/2006 12:12 PM CDT) P athologist Signature Cholesterol 140 <170 mg/dL HP CONVERSION Specimen (Source) Anatomical Collection Method Collection Time Re ceived Time Location / / Volume Laterality 11/25/2006 12:12 PM CDT Rahat Mix PA-C LAB_1 Performing Organization Address City/State/ZIP Code Phon e Number HP CONVERSION HDL Cholesterol (11/25/2006 12:12 PM CDT) P athologist Signature HDL Cholesterol 51 40 - 60 HP CONVERSION mg/dL Specimen (Source) Anatomical Collection Method Collection Time Re ceived Time Location / / Volume Laterality 11/25/2006 12:12 PM CDT Rahat Mix PA-C LAB_1 Performing Organization Address [facility] Code Phon e Number HP CONVERSION Hemoglobin, Blood (11/25/2006 12:12 PM CDT) athologist Signature Hemoglobin 15.0 12.0 - 16.0 HP CONVERSION gm/dL Specimen (Source) Anatomical Collection Method Collection Time Re ceived Time Location / / Volume Laterality 11/25/2006 12:12 PM CDT Rahat Mix PA-C LAB_1 Performing Organization Address [facility] Phon e Number HP CONVERSION Pap Smear (11/25/2006 12:00 PM CDT) [facility] gist Method Time Signature PAP Smear SEE TEXT No normal HP CONVERSION Liquid Based range Comment: Patient: MINO POSADAS ? CERVICAL CYTOLOGY REPORT Pathology # ??[id number] ?Date Obtained: ? Date Received: CYTOLOGIC IMPRESSION: [...] on filedocumented in this encounter Care Teams Recruit Instructor Relationship Specialty Start Date End Date Brisa Smith PA-C PCP - General 07/30/10 04/18/15 [address] [place], [place] [address] documented as of this encounter
--- OUTSIDE RECORDS SUMMARY | 2022-03-07 14:56 | XMS_ITS | Encounter Summary ---
:1990 Author Organization [facility] Address [address] [place] [address] Care Team Providers Name Role Phone Brisa Smith PA-C Primary Care Provider Encounter Details Date Type Department Care Team Description 09/07/2007 PN Conversion Only [place] CONVERSION [address] [place] [address] Social History Tobacco Use Types Packs/Day Years Used Date Smoking Tobacco: Never Assessed Sex Assigned at Date Recorded Not on file documented as of this encounter Plan of Treatment Not on filedocumented as of this encounter Visit Diagnoses Not on filedocumented in this encounter Care Teams Paper Machine Backtender Relationship Specialty Start Date End Date Brisa Smith PA-C PCP - General 07/30/10 04/18/15 [address] [place], [place] [address] documented as of this encounter
--- OUTSIDE RECORDS SUMMARY | 2022-03-07 14:56 | XMS_ITS | Encounter Summary ---
:1990 Author Organization [facility] Address [address] [place] [address] Care Team Providers Name Role Phone Brisa Smith PA-C Primary Care Provider Encounter Details Date Type Department Care Team Description 09/30/2007 PN Conversion Only [place] CONVERSION Brisa Smith, [address] [address] [address] [place], [place] [address] (Wo rk) Social History [...] on filedocumented in this encounter Care Teams Software Packager Relationship Specialty Start Date End Date Brisa Smith PA-C PCP - General 07/30/10 04/18/15 [address] [place] [address] documented as of this encounter
--- OUTSIDE RECORDS SUMMARY | 2022-03-07 14:56 | XMS_ITS | Encounter Summary ---
:1990 Author [facility] Address [address] [place] [address] Care Team Providers Name Role Phone Brisa Smith PA-C Primary Care Provider Encounter Details Date Type Department Care Team Description 03/11/2007 Nursing Visit Darryn Diaz MD [facility] [address] [place] [address] [place] [address] [place] [address] [phone] (Wo rk) Social History Tobacco Use Types Packs/Day Years Used Date Smoking Tobacco: Never Assessed Sex Assigned at Date Recorded Not on file documented as of this encounter Plan of Treatment Not on filedocumented as of this encounter Visit Diagnoses Not on filedocumented in this encounter Care Teams Scuba Dive Training Instructor Relationship Specialty Start Date End Date Brisa Smith PA-C PCP - General 07/30/10 04/18/15 [address] [place], [place] [address] documented as of this encounter
--- OUTSIDE RECORDS SUMMARY | 2022-03-07 14:56 | XMS_ITS | Encounter Summary ---
:1990 Author Organization [facility] Address [address] [place] [address] Care Team Providers Name Role Phone Brisa Smith PA-C Primary Care Provider Encounter Details Date Type Department Care Team Description 11/02/2008 Office Visit [facility] Amos e Brisa Smith PA-C [address] [place], [place] [address] [address] [place], [place] [address] (Wo rk) Social History [...] signed by Brisa Smith PA-C at 11/02/08 1208 Author: Brisa M Gastony, PA-C Service: (none) Author Type: Physician Gas Line Servicer Filed: 08/18/10 1626 Note Time: 11/02/08 0001 Status: Signed Radio Electrician: Brisa Smith PA-C (Resource) Subjective: This is [...] anti-inflammatory medications. She is not tried any iluo-khm-ztubmrs products. Food aggravates her symptoms causing her to have some sharp discomfort in the midepigastric area. She denies heartburn, melena, or hematochezia. Past medical history: Reviewed in todayGCW lastwork health profile Social history: Nonsmoker Review [...] on filedocumented in this encounter Care Teams Oracle Reports Developer Relationship Specialty Start Date End Date Brisa Smith PA-C PCP - General 07/30/10 04/18/15 [address] [place] [address] documented as of this encounter
--- OUTSIDE RECORDS SUMMARY | 2022-03-07 14:56 | XMS_ITS | Encounter Summary ---
:1990 Author Organization [facility] Address [address] [place] [address] Care Team Providers Name Role Phone Brisa Smith PA-C Primary Care Provider Encounter Details Date Type Department Care Team Description 07/12/2008 Office Visit Rocio Griffiths MBBS [facility] [employer] [address] [place] [address] [place] [address] [place] [address] [phone] (Wo rk) Social History Tobacco Use Types [...] 12:01 AM CDT Progress Notes signed by Rocoi Bermudez MD at 08/14/08 2141 Author: ZAK Giles Service: (none) Author Type: Physician Filed: 08/18/10 7370 Note Time: 07/12/08 0001 Status: Signed Internal Medicine Physician Assistant: ZAK Giles (Physician) NAME: MINO POSADAS MR#: [id number] ACCT: [id number] VISIT: [id number] DICTATING CLINICIAN: Rocio Bermudez MD CONFIRM #: [id number] LOC: 1702 CLINIC PROGRESS NOTE DATE OF [...] was agreeable with plan. PLAN: See assessment. SR:[id number] C: 07/12/08 13:15 CONFIRM #: [id number] documented in this encounter Plan of Treatment Not on filedocumented as of this encounter Visit Diagnoses Not on filedocumented in this encounter Care Teams Finisher Fiberglass Boat Parts Relationship Specialty Start Date End Date Brisa Smith PA-C PCP - General 07/30/10 04/18/15 [address] [place] [address] documented as of this encounter
--- OUTSIDE RECORDS SUMMARY | 2022-03-07 14:56 | XMS_ITS | Encounter Summary ---
:1990 Author Organization [facility] Address [address], [place] [address] Care Team Providers Name Role Phone Brisa Smith PA-C Primary Care Provider Reason for Visit Reason Comments Other Encounter Details Date Type Department Care Team Description 11/02/2008 Telephone [facility], Message Other [address] [place], [place] [address] Social History Tobacco Use Types Packs/Day Years Used Date Smoking Tobacco: Never Assessed Sex Assigned at Date Recorded Not on file documented as of this encounter Progress Notes Center, Message - 11/02/2008 10:32 AM CDT Phone Note filed by [facility] at 08/17/1051 Author: [facility] Service: (none) Author Type: (none) Filed: 08/17/10 0651 Note Time: 11/02/08 103 Status: Signed Photoengraving Retoucher: [facility] (Resource) Front Line Sx Call Caller Name/Relationship:Hellen Primary Spa Attendant: Symptom or request? sores in mouth/under tongue since Friday, tongue feels swollen Is appointment scheduled & when? Laboratory Tester:Hellen Best call back number:[phone] Is it OK to leave a confidential message on this voicemail? h *ECODE~PNSX2 Created on 02Nov2008 10:32am by BHARATHI DESHPANDE K On [id number] 10:58am CAROLYN BROWN wrote: CLINICIAN FOLLOW-UP: FYI (note is complete). IMPRESSION: mouth sores/? Hzje-Efhp-hef-Mouth Disease. SYMPTOMS: Pt is 18 yr old [...] medical record. CARE ADVICE: Care Advice REASSURANCE: Ulvc-pxmv-awxlt disease is a harmless viral rash. LIQUID [...] denies additional questions. References Used: Pediatric Telephone Protocols--Shjr-Rqnm-mhr-Mouth Disease. Call Complete. *SH~BS~HANDFOOTMTH ~ RESTATION WORKER documented in this encounter Plan of Treatment Not on filedocumented as of this encounter Visit Diagnoses Not on filedocumented in this encounter Care Teams Fingerprint Expert Relationship Specialty Start Date End Date Brisa Smith PA-C PCP - General 07/30/10 04/18/15 [address] [place] [address] documented as of this encounter
--- OUTSIDE RECORDS SUMMARY | 2022-03-07 14:56 | XMS_ITS | Encounter Summary ---
:1990 Author Organization [facility] Address [address] [place], [place] [address] [place] [address] Care Team Providers Name Role Phone Brisa Smith PA-C Primary Care Provider Encounter Details Date Type Department Care Team Description 06/28/2005 Office Visit [facility] Gabo Weiner MD Subspecialty [address] [place], [place] [address] [place] [address] [phone] Social History Tobacco Use Types Packs/Day Years Used Date Smoking Tobacco: Never Assessed Sex Assigned at Date Recorded Not on file documented as of this encounter Last Filed Vital Signs Vital Sign Reading Time Taken Comments Blood Pressure 110/72 06/28/2005 2:55 PM THIRD RAIL INSTALLER Pulse 65 06/28/2005 2:55 PM THIRD RAIL INSTALLER Temperature - - Respiratory Rate - - Oxygen Saturation - - Inhaled Oxygen Concentration - - Weight 66.7 kg (146 lb 15.7 oz) 06/28/2005 2:55 PM C: 6 6.7kg THIRD RAIL INSTALLER Height 172.7 cm (5' 8) 06/28/2005 2:55 PM C: 172.7cm THIRD RAIL INSTALLER Body Mass Index 22.35 06/28/2005 2:55 PM THIRD RAIL INSTALLER Body Mass Index Percentile 71.67 % 06/28/2005 2:55 PM THIRD RAIL INSTALLER Growth Chart: CDC (Girls, 2-20 Years) documented in this encounter Progress Notes Jarrett Weiner MD - 06/28/2005 12:01 AM CST Progress Notes signed by Jarrett Weiner MD at 07/05/05 0954 Author: Jarrett Weiner MD Service: (none) Author Type: Physician Filed: 08/17/10 1150 Note Time: 06/28/052014 Status: Signed Resource Management Planner: Jarrett Weiner MD (Physician) NAME: MINO POSADAS MR: [id number] ACCT: [id number] VISIT: [id number] DICTATING CLINICIAN: JARRETT WEINER MD JOB: [id number] CLINIC PROGRESS NOTE DATE OF VISIT: 06/28/2005 [...] X-rays were done at that time at [facility]. She was not hospitalized. Recent volleyball tournament that made her totally exhausted. She has missed three plus weeks of school this year. She has three younger siblings. Born and raised in [place]. No travel history. No pets. CURRENT MEDICATIONS: [...] Coronal CT of her sinuses, chest x-ray, ASSOCIATE CREATIVE DIRECTOR examination, CT of her abdomen, urinalysis. TT: [address]: 35 minutes. I counseled Mino and her mother concerning the nature of her symptoms, our approach to this issue, the importance of staying in school regardless of symptoms, work-up and followup. CC: LENA CHIU NP SCM:[id number] C: 07/02/05 12:22 DOCUMENT: [id number] D RAIL INSTALLER documented in this encounter Plan of Treatment Not on filedocumented as of this encounter Visit Diagnoses Not on filedocumented in this encounter Care Teams Motor Vehicle Salesperson Relationship Specialty Start Date End Date Brisa Smith PA-C PCP - General 07/30/10 04/18/15 [address] [place] [address] documented as of this encounter
--- OUTSIDE RECORDS SUMMARY | 2022-03-07 14:56 | XMS_ITS | Encounter Summary ---
:1990 Author Organization [facility] Address [address] [address] Care Team Providers Name Role Phone Brisa Smith PA-C Primary Care Provider Encounter Details Date Type Department Care Team Description 07/16/2006 PN Conversion Only [place] CONVERSION [place], [address] APR[place] [address] [address] [place] [phone] (Wo rk) Social History Tobacco Use Types [...] 12:43 PM CDT) Analysis Performed At [facility] Time Signature Strep Group A Negative Negative HP CONVERSION Antigen Test Comment: Culture to follow. Specimen (Source) Anatomical Collection Method Collection Time Re ceived Time Location / / Volume Laterality 07/16/2006 12:43 PM CDT Lillian Rosas APRN, POWDER GUARD LAB_1 Performing Organization Address City/State/ZIP Code Phon e Number HP CONVERSION Beta Strep Followup (07/16/2006 12:43 PM CDT) P athologist Signature Strep Screen SEE TEXT HP CONVERSION Comment: Patient: MINO POSADAS Rapid Strep Follow up Culture @ ? Collected: ??[id number] ??[id number] Source: Throat ?Processed: ??[id number] ??1247 Final Report ------ ?[id number] ??[id number] No beta hemolytic Strep group A isolated . @ = Rapid F/U Cult Performed at ??[address] [facility] [place], [place] ?[address] Specimen (Source) Anatomical Collection Method Collection Time Re ceived Time Location / / Volume Laterality 07/16/2006 12:43 PM CDT Lillian Rosas CURATOR HERBARIUM, POWDER GUARD LAB_1 Performing Organization Address City/[facility]/ZIP Code Phon e Number HP CONVERSION documented in this encounter Visit Diagnoses Not on filedocumented in this encounter Care Teams Community Association Manager Relationship Specialty Start Date End Date Brisa Smith PA-C PCP - General 07/30/10 04/18/15 [address] [place] [address] documented as of this encounter
--- OUTSIDE RECORDS SUMMARY | 2022-03-07 14:56 | XMS_ITS | Encounter Summary ---
:1990 Author Organization [facility] Address [address] [place] [address] Care Team Providers Name Role Phone Brisa Smith PA-C Primary Care Provider Encounter Details Date Type Department Care Team Description 11/02/2008 PN Conversion Only [place] CONVERSION Brisa Smith, [address] [address] [place], [place] [address] (Wo rk) Social History [...] Helicobacter Pylori IGG (11/02/2008 11:48 AM CDT) [facility] gist Method Time Signature Helicobacter Negative Negative HP [...] on filedocumented in this encounter Care Teams Cylinder Machine Operator Relationship Specialty Start Date End Date Brisa Smith PA-C PCP - General 07/30/10 04/18/15 [address] [place] [address] documented as of this encounter
--- OUTSIDE RECORDS SUMMARY | 2022-03-07 14:56 | XMS_ITS | Encounter Summary ---
:1990 Author Organization [facility] Address [address] [place] [address] Care Team Providers Name Role Phone Brisa Smith PA-C Primary Care Provider Encounter Details Date Type Department Care Team Description 06/28/2005 PN Conversion Only CULLOM CONVERSI ON Jarrett Weiner, [address] [place] [address] [address] [place] [address] (Wo rk) Social History Tobacco Use Types Packs/Day Years Used Date Smoking Tobacco: Never Assessed Sex Assigned at Date Recorded Not on file documented as of this encounter Plan of Treatment Not on filedocumented as of this encounter Procedures Procedure Name Priority Date/Time Associated Comments Diagnosis URINALYSIS COMPLETE Routine 06/28/2005 4:58 PM Re sults for this DROP HAMMER SETTER UP procedure are i n the results section. TEST Routine 06/28/2005 4:58 PM Results for this (URINE) DROP HAMMER SETTER UP procedure are i n the results section. documented in this encounter Results (ABNORMAL) Urinalysis Complete (06/28/2005 4:58 PM DROP HAMMER SETTER UP) [facility] Method Time Signature Glucose, Negative Neg-Trac HP CONVERSION Qualitative U Protein Urine Negative Neg-Trac HP CONVERSION Ketones Negative Negative HP CONVERSION U BILI Negative Negative HP CONVERSION U Specific 1.025 1.005 - 25 HP CONVERSION Story Blood Urine Negative Negative HP CONVERSION pH [...] / / Volume Laterality 06/28/2005 4:58 PM DROP HAMMER SETTER UP Jarrett Weiner MD LAB_1 Performing Organization Address City/[facility]/ZIP Code Phon e Number HP CONVERSION Test (Urine) (06/28/2005 4:58 PM DROP HAMMER SETTER UP) [facility] Method Time Signature Urine Negative No [...] / / Volume Laterality 06/28/2005 4:58 PM DROP HAMMER SETTER UP Jarrett Weiner MD LAB_1 Performing Organization Address City/[facility] Phon e Number HP CONVERSION documented in this encounter Visit Diagnoses Not on filedocumented in this encounter Care Teams Piece Work Checker Relationship Specialty Start Date End Date Brisa Smith PA-C PCP - General 07/30/10 04/18/15 [address] [place] [address] documented as of this encounter
--- OUTSIDE RECORDS SUMMARY | 2022-03-07 14:57 | XMS_ITS | Encounter Summary ---
:1990 Author Organization [facility] Address [address] [place] [address] Care Team Providers Name Role Phone Brisa Smith PA-C Primary Care Provider Encounter Details Date Type Department Care Team Description [facility] OFFAL BAL[facility], COMMERCIAL CLEANER [address] [place] [address] [phone] (Wo rk) Social History Tobacco Use Types Packs/Day Years Used Date Smoking Tobacco: Never Assessed Sex Assigned at Date Recorded Not on file documented as of this encounter Last Filed Vital Signs Vital Sign Reading Time Taken Comments Blood Pressure 118/78 06/25/2005 8:09 AM DAMAGE ADJUSTER Pulse - - Temperature 36.3 ??C (97.3 ??F) 06/25/2005 8:09 AM DAMAGE ADJUSTER C: 36 .3 C Respiratory Rate - - Oxygen Saturation - - Inhaled Oxygen Concentration - - Weight 67.6 kg (148 lb 15.8 oz) 06/25/2005 8:09 AM DAMAGE ADJUSTER C: 67.6kg Height - - Body Mass Index - - documented in this encounter Progress Notes Lena Chiu - 06/25/2005 12:01 AM CST Progress Notes signed by KIMBERLY Guerrier at 06/27/05 5368 Author: KIMBERLY Guerrier Service: (none) Author Type: Nurse Practitioner Filed: 08/17/10 1145 Note Time: 06/25/05 0001 Status: Signed Commercial Airline Pilot: KIMBERLY Guerrier (Nurse Practitioner) Clinic Visit SUBJECTIVE: [...] is remained on some multivitamins and a Kiswahili herbal product. If she stopped these for any period time she seems to be worse and that's why she continues on these products. Reports exposure to web developer who was diagnosed with cytomegalovirus one week [...] face to face counseling and per plan. GE ADJUSTER documented in this encounter Plan of Treatment Not on filedocumented as of this encounter Visit Diagnoses Not on filedocumented in this encounter Care Teams Pre K Special Education Teacher Relationship Specialty Start Date End Date Brisa Smith PA-C PCP - General 07/30/10 04/18/15 [address] [place] [address] documented as of this encounter
--- OUTSIDE RECORDS SUMMARY | 2022-03-07 14:57 | XMS_ITS | Encounter Summary ---
:1990 Author Organization [facility] Address [address] [place] [address] Care Team Providers Name Role Phone Brisa Smith PA-C Primary Care Provider Encounter Details Date Type Department Care Team Description 05/22/2005 PN Conversion Only ALTON CONVERSIO N Ellen Vieira [address] [employer] [facility] [place] [address] [facility] [place], [place] [address] Social History Tobacco Use Types Packs/Day Years Used Date Smoking Tobacco: Never Assessed Sex Assigned at Date Recorded Not on file documented as of this encounter Plan of Treatment Not on filedocumented as of this encounter Procedures Procedure Name Priority Date/Time Associated Diagnosis Comme nts STREP GROUP A Routine 05/22/2005 6:16 PM Results for this ANTIGEN TEST AERIAL TRAM OPERATOR procedure are i n the results section. BETA STREP FOLLOWUP Routine 05/22/2005 6:16 PM Re sults for this AERIAL TRAM OPERATOR procedure are i n the results section. documented in this encounter Results Strep Group A Antigen Test (05/22/2005 6:16 PM AERIAL TRAM OPERATOR) Analysis Performed At Patho logist Time Signature Strep Group A Negative Negative HP CONVERSION Antigen Test Comment: Culture to follow. Specimen (Source) Anatomical Collection Method Collection Time Re ceived Time Location / / Volume Laterality 05/22/2005 6:16 PM AERIAL TRAM OPERATOR Ellen Vieira PA-C LAB_1 Performing Organization Address City/State/ZIP Code Phon e Number HP CONVERSION Beta Strep Followup (05/22/2005 6:16 PM AERIAL TRAM OPERATOR) P athologist Signature Strep Screen SEE TEXT HP CONVERSION Comment: Patient: MINO POSADAS Rapid Strep Follow up Culture @ ? Collected: ?181 Source: Throat ?Processed: ?1818 ? 1V Final Report ------ ?1327 No beta hemolytic Strep group A isolated . @ = Rapid F/U Cult Performed at [address] [place] ?[address] Specimen (Source) Anatomical Collection Method Collection Time Re ceived Time Location / / Volume Laterality 05/22/2005 6:16 PM AERIAL TRAM OPERATOR Ellen Vieira PA-C LAB_1 Performing Organization Address City/State/ZIP Code Phon e Number HP CONVERSION documented in this encounter Visit Diagnoses Not on filedocumented in this encounter Care Teams Architectural Superintendent Relationship Specialty Start Date End Date Brisa Smith PA-C PCP - General 07/30/10 04/18/15 [address] [place], [place] [address] documented as of this encounter
--- OUTSIDE RECORDS SUMMARY | 2022-03-07 14:57 | XMS_ITS | Encounter Summary ---
:1990 Author Organization [facility] Address [address], [place] [address] Care Team Providers Name Role Phone Brisa Smith PA-C Primary Care Provider Encounter Details Date Type Department Care Team Description 06/25/2005 PN Conversion Only HELENA CONVERSION Lena Chiu, CURB SUPERVISOR, [address] [address] [address] [address] (Wo rk) Social History Tobacco Use Types Packs/Day Years Used Date Smoking Tobacco: Never Assessed Sex Assigned at Date Recorded Not on file documented as of this encounter Plan of Treatment Not on filedocumented as of this encounter Procedures Procedure Name Priority Date/Time Associated Comments Diagnosis LYME DISEASE SCREEN Routine 06/25/2005 9:05 Resul ts for this (IN-HOUSE) AM SCREW MACHINE OPERATOR procedure are i n the results section. PARVOVIRUS B19 IGG & IGM Routine 06/25/2005 9:05 Results for this ANTIBODIES AM SCREW MACHINE OPERATOR procedure are i n the results section. CYTOMEGALOVIRUS IGM Routine 06/25/2005 9:05 Resul ts for this ANTIBODY AM SCREW MACHINE OPERATOR procedure are i n the results section. CYTOMEGALOVIRUS IGG Routine 06/25/2005 9:05 Resul ts for this ANTIBODY AM SCREW MACHINE OPERATOR procedure are i n the results section. HEMOGLOBIN, BLOOD Routine 06/25/2005 9:05 Results for this AM SCREW MACHINE OPERATOR procedure are i n the results section. WBC, BLOOD Routine 06/25/2005 9:05 Results for this AM SCREW MACHINE OPERATOR procedure are i n the results section. RHEUMATOID FACTOR, QUANT Routine 06/25/2005 9:05 Results for this AM SCREW MACHINE OPERATOR procedure are i n the results section. FERRITIN Routine 06/25/2005 9:05 Results for this AM SCREW MACHINE OPERATOR procedure are i n the results section. IRISH SCREEN Routine 06/25/2005 9:05 Results for this AM SCREW MACHINE OPERATOR procedure are i n the results section. ESR Routine 06/25/2005 9:05 Results for this AM SCREW MACHINE OPERATOR procedure are i n the results section. documented in this encounter Results Hemoglobin, Blood (06/25/2005 9:05 AM SCREW MACHINE OPERATOR) P athologist Signature Hemoglobin 15.4 12.0 - 16.0 HP CONVERSION gm/dL Specimen (Source) Anatomical Collection Method Collection Time Re ceived Time Location / / Volume Laterality 06/25/2005 9:05 AM SCREW MACHINE OPERATOR Lena Chiu APRN, CNP LAB_1 Performing Organization Address City/[facility]/ZIP Code Phon e Number HP CONVERSION WBC, Blood (06/25/2005 9:05 AM SCREW MACHINE OPERATOR) athologist Signature White Blood 4.8 4.5 - 13.0 HP CONVERSION Cell Count K/cmm Specimen (Source) Anatomical Collection Method Collection Time Re ceived Time Location / / Volume Laterality 06/25/2005 9:05 AM SCREW MACHINE OPERATOR Lena Chiu APRN, CNP LAB_1 Performing Organization Address City/[facility] Code Phon e Number HP CONVERSION ESR (06/25/2005 9:05 AM SCREW MACHINE OPERATOR) Patholo gist Method Time Signature Sedimentation Rate 1 0 - 20 HP CONVERSI ON mm/Hr Specimen (Source) Anatomical Collection Method Collection Time Re ceived Time Location / / Volume Laterality 06/25/2005 9:05 AM SCREW MACHINE OPERATOR Lena Chiu APRN, CNP LAB_1 Performing Organization Address City/[facility]/ZIP Code Phon e Number HP CONVERSION IRISH Screen (06/25/2005 9:05 AM SCREW MACHINE OPERATOR) Analysis Performed At Patho logist Time Signature Anti-Nuclear Negative Negative HP CONVERSION Ab Specimen (Source) Anatomical Collection Method Collection Time Re ceived Time Location / / Volume Laterality 06/25/2005 9:05 AM SCREW MACHINE OPERATOR Lena Chiu APRN, CNP LAB_1 Performing Organization Address City/[facility]/ZIP Code Phon e Number HP CONVERSION Rheumatoid Factor, Quant (06/25/2005 9:05 AM SCREW MACHINE OPERATOR) Patholo gist Method Time Signature Rheumatoid Negative 0 - 20 HP CONVERSION Factor IU/mL Specimen (Source) Anatomical Collection Method Collection Time Re ceived Time Location / / Volume Laterality 06/25/2005 9:05 AM SCREW MACHINE OPERATOR Lena Chiu APRN, ROSA LAB_1 Performing Organization Address [facility] Phon e Number HP CONVERSION Ferritin (06/25/2005 9:05 AM SCREW MACHINE OPERATOR) athologist Signature Ferritin Serum 17 10 - 291 HP CONVERSION ng/mL Specimen (Source) Anatomical Collection Method Collection Time Re ceived Time Location / / Volume Laterality 06/25/2005 9:05 AM SCREW MACHINE OPERATOR Lena Chiu APRN, CNP LAB_1 Performing Organization Address [facility] Phon e Number HP CONVERSION Parvovirus B19 Igg & Igm Antibodies (06/25/2005 9:05 AM SCREW MACHINE OPERATOR) athologist Signature Parvovirus B19 0.16 HP CONVERSION [...] / / Volume Laterality 06/25/2005 9:05 AM SCREW MACHINE OPERATOR Lena Chiu APRN, CNP LAB_1 Performing Organization Address [facility] Phon e Number HP CONVERSION Cytomegalovirus IgG Antibody (06/25/2005 9:05 AM SCREW MACHINE OPERATOR) Good Photo Method Time Signature Cytomegalovirus IgG 39 AU [...] / / Volume Laterality 06/25/2005 9:05 AM SCREW MACHINE OPERATOR Lena Chiu APRN, CNP LAB_1 Performing Organization Address [facility] e Number HP CONVERSION Cytomegalovirus IgM Antibody (06/25/2005 9:05 AM SCREW MACHINE OPERATOR) Good Photo Method Time Signature Cytomegalovirus IgM 0.07 AU [...] / / Volume Laterality 06/25/2005 9:05 AM SCREW MACHINE OPERATOR Lena Chiu APRN, CNP LAB_1 Performing Organization Address City/[facility] Phon e Number HP CONVERSION Lyme Disease Screen (IN-House) (06/25/2005 9:05 AM SCREW MACHINE OPERATOR) athologist Signature Lyme Screen Negative No normal HP CONVERSION range Comment: A negative Lyme result does not rule out Lyme disease. ??If a current infection is suspected, please submit a second specimen in 4-6 weeks. Positive or equivocal specimens are auto matically sent to [facility] for Western Blot testing. Specimen (Source) Anatomical Collection Method Collection Time Re ceived Time Location / / Volume Laterality 06/25/2005 9:05 AM SCREW MACHINE OPERATOR Lena Chiu APRN, CNP LAB_1 Performing Organization Address City/[facility] Phon e Number HP CONVERSION documented in this encounter Visit Diagnoses Not on filedocumented in this encounter Care Teams Sheet Metal Engineer Relationship Specialty Start Date End Date Brisa Smith PA-C PCP - General 07/30/10 04/18/15 [address] [place] [address] documented as of this encounter
--- OUTSIDE RECORDS SUMMARY | 2022-03-07 14:57 | XMS_ITS | Encounter Summary ---
:1990 Author Organization [facility] Address [address], [place] [address] Care Team Providers Name Role Phone Brisa Smith PA-C Primary Care Provider Reason for Visit Reason Comments Other Encounter Details Date Type Department Care Team Description 06/21/2005 Telephone [facility], Message Other [address] [place] [address] Social History Tobacco Use Types Packs/Day Years Used Date Smoking Tobacco: Never Assessed Sex Assigned at Date Recorded Not on file documented as of this encounter Progress Notes Felipe Guevara - 06/21/2005 9:19 AM CST Phone Note filed by Felipe Guevara at 08/14/103 Author: Felipe Guevara Service: (none) Author Type: (none) Filed: 08/14/10114 Note Time: 06/21/05918 Status: Signed Crown Pouncer: Rudy Tae Patient's mom, Mari, balbina. She is looking for a copy of some labs done after February 26. She is not sure of the exact dates but is interested in certain test results. Please call mom at [phone]. It is okay to leave a message. Created on 21Jun2005 9:19am by FELIPE GUEVARA On 21Jun2005 11:13am AKHIL LEMON wrote: Normal results for blood work left. Advised to call back if she has questions. ROSE CRUSHER documented in this encounter Plan of Treatment Not on filedocumented as of this encounter Visit Diagnoses Not on filedocumented in this encounter Care Teams Electronic Publisher Relationship Specialty Start Date End Date Brisa Smith PA-C PCP - General 07/30/10 04/18/15 [address] [place] [address] documented as of this encounter
--- OUTSIDE RECORDS SUMMARY | 2022-03-07 14:57 | XMS_ITS | Encounter Summary ---
:1990 Author Organization [facility] Address [address] [place] [address] Care Team Providers Name Role Phone Brisa Smith PA-C Primary Care Provider Encounter Details Date Type Department Care Team Description 05/22/2005 Office Visit [facility] re Ellen Solis, [address] [employer] [facility] [place] [address] [address] [facility] [phone] [place], [place] [address] Social History Tobacco Use Types Packs/Day Years Used Date Smoking Tobacco: Never Assessed Sex Assigned at Date Recorded Not on file documented as of this encounter Last Filed Vital Signs Vital Sign Reading Time Taken Comments Blood Pressure 127/66 05/22/2005 4:39 PM TAX ASSOCIATE Pulse 73 05/22/2005 4:39 PM TAX ASSOCIATE Temperature 36.7 ??C (98.1 ??F) 05/22/2005 4:39 PM TAX ASSOCIATE C: 36 .7 C Respiratory Rate 16 05/22/2005 4:39 PM TAX ASSOCIATE Oxygen Saturation 98% 05/22/2005 4:39 PM TAX ASSOCIATE Inhaled Oxygen Concentration - - Weight - - Height - - Body Mass Index - - documented in this encounter Progress Notes Ellen Solis PA-C - 05/22/2005 12:01 AM CST Progress Notes signed by Ellen Solis PA-C at 05/28/05 3486 Author: Ellen Solis PA-C Service: (none) Author Type: Resource Filed: 08/17/10 1102 Note Time: 05/22/05 0001 Status: Signed Professional Fee Coder: Ellen Solis PA-C (Resource) NAME: MINO POSADAS MR: [id number] ACCT: [id number] VISIT: [id number] DICTATING CLINICIAN: ELLEN SOLIS PA-C JOB: [id number] CLINIC PROGRESS NOTE DATE OF VISIT: 05/22/2005 SUBJECTIVE: [id number]-[id number] female complaining of a cough for the [...] PLAN: Symptomatic care. Follow up as needed. [id number] C: 05/23/05 12:45 DOCUMENT: [id number] ASSOCIATE documented in this encounter Plan of Treatment Not on filedocumented as of this encounter Visit Diagnoses Not on filedocumented in this encounter Care Teams Rehabilitation Services Aide Relationship Specialty Start Date End Date Brisa Smith PA-C PCP - General 07/30/10 04/18/15 [address] [place] [address] documented as of this encounter
--- OUTSIDE RECORDS SUMMARY | 2022-03-07 14:57 | XMS_ITS | Encounter Summary ---
:1990 Author Organization [facility] Address [address] [address] Care Team Providers Name Role Phone Brisa Smith PA-C Primary Care Provider Reason for Visit Reason Comments Other Encounter Details Date Type Department Care Team Description 06/19/2005 Telephone [facility], Message Other [address] [place] [address] Social History Tobacco Use Types [...] 08/14/10109 Note Time: 06/19/05 1028 Status: Signed Manganese Breaker: Chelo Álvarez RN (Registered Nurse) Mom, Mildred, calling. Pt.isn't any better. Wants to know what next step is. Pt.has had sore throat that comes and goes, fatigue, body aches for several months, was seen 05/22/05 in . If she exerts herself at all she is wiped out. Was home yesterday from school after being at [employer]this weekend. Mom will be at [phone] after 11. Created on 19Jun2005 10:28am by [...] need an appt. Transferred to appt. desk. KER OUT documented in this encounter Plan of Treatment Not on filedocumented as of this encounter Visit Diagnoses Not on filedocumented in this encounter Care Teams Appeals Board Referee Relationship Specialty Start Date End Date Brisa Smith PA-C PCP - General 07/30/10 04/18/15 [address] [place] [address] documented as of this encounter
--- OUTSIDE RECORDS SUMMARY | 2022-03-07 14:57 | XMS_ITS | Encounter Summary ---
:1990 Author Organization [facility] Address [address], [place] [address] Care Team Providers Name Role Phone Brisa Smith PA-C Primary Care Provider Reason for Visit Reason Comments Other Encounter Details Date Type Department Care Team Description 06/25/2005 Telephone [facility] [place], Message Other [address] [place] [address] Social History Tobacco Use Types Packs/Day Years Used Date Smoking Tobacco: Never Assessed Sex Assigned at Date Recorded Not on file documented as of this encounter Progress Notes Chelo Montiel - 06/25/2005 11:13 AM CST Phone Note filed by Chelo Montiel at 08/14/10121 Author: Chelo Montiel Service: (none) Author Type: (none) Filed: 08/14/10121 Note Time: 06/25/05 1113 Status: Signed Carport Erector: Rudy Strong Pt's mom (Mildred) calling to inform Lena Chiu, that Infectious Disease won't see people under 18 years old.(Lena had referred her daughter there) She can be reached at [phone], and you are able to leave a detailed messgae. Created on 25Jun2005 11:13am by CHELO MONTIEL On 25Jun2005 3:00pm LENA CHIU wrote: Dawit Weiner MD is a pediatric MD in [facility]. Phone #[phone]. If she cannot get in with Dr Weiner, then Wolf Bran MD at [facility] [phone]. Acknowledged by LENA CHIU on 3:00pm On 25Jun2005 3:19pm LENA LEE wrote: Pt's mother was called and given the above information. P DEBURRER documented in this encounter Plan of Treatment Not on filedocumented as of this encounter Visit Diagnoses Not on filedocumented in this encounter Care Teams Counter Installer Relationship Specialty Start Date End Date Brisa Smith PA-C PCP - General 07/30/10 04/18/15 [address] [place] [address] documented as of this encounter
--- OUTSIDE RECORDS SUMMARY | 2022-03-07 14:58 | XMS_ITS | Encounter Summary ---
:1990 Author [facility] Address [address] [place] [address] Care Team Providers Name Role Phone Brisa Smith PA-C Primary Care Provider Encounter Details Date Type Department Care Team Description 05/10/2004 Office Visit [place] [facility], Caitlin Stern [place] [address] [address] [phone] [place] [id number] (Wo rk) Social History Tobacco Use Types [...] 0339 Note Time: 05/10/04 0001 Status: Signed Branch Director: JOVANNA Antonio (Nurse Practitioner) NAME: MINO POSADAS MR: [id number] ACCT: [id number] VISIT: [id number] DICTATING CLINICIAN: JOVANNA ANTONIO JOB: [id number] CLINIC PROGRESS NOTE DATE OF VISIT: 05/10/2004 SUBJECTIVE: Mino is in today with a three-week history of a deep, persistent cough. Mom says that cough has gone on since Roy. She has really never felt good during [...] five days. Will call with pertussis results. [id number]:[id number] C: 05/10/04 21:08 DOCUMENT: [id number] SEWER documented in this encounter Plan of Treatment Not on filedocumented as of this encounter Procedures Procedure Name Priority Date/Time Associated Diagnosis Comme nts XR CHEST 2 VIEWS Routine 05/10/2004 9:51 AM Resul ts for this HEEL SEWER procedure are i n the results section. documented in this encounter Results XR Chest 2 Views (05/10/2004 9:51 AM HEEL SEWER) Anatomical Region Laterality Modality Chest, Lung Other Specimen (Source) Anatomical Location Collection Method / Collectio n Time Received Time / Laterality Volume Narrative 05/10/2004 9:51 AM HEEL SEWER Impression: Normal chest. Findings: CH1 The cardiovascular structures appear nor mal. ??No evidence of active pulmonary disease. Dictating SANJEEV RICO RADIOLOGIST Procedure Note Leena Zelaya - 06/29/2016 Impression: Normal chest. Findings: CH1 The cardiovascular structures appear nor mal. No evidence of active pulmonary disease. Dictating SANJEEV RICO RADIOLOGIST Lillian Rosas LEAD INGOT MOLDER, AUTO SERVICER RAD GD documented in this encounter Visit Diagnoses Not on filedocumented in this encounter Care Teams Dietetic Aide Relationship Specialty Start Date End Date Brisa Smith PA-C PCP - General 07/30/10 04/18/15 [address] [place] [address] documented as of this encounter
--- OUTSIDE RECORDS SUMMARY | 2022-03-07 14:58 | XMS_ITS | Encounter Summary ---
:1990 Author Organization [facility] Address [address] [address] Care Team Providers Name Role Phone Brisa Smith PA-C Primary Care Provider Reason for Visit Reason Comments Other Encounter Details Date Type Department Care Team Description 04/10/2004 Telephone [facility] Brittany Turner Other Pending sale to [facility] [employer] [address] [place], [place] [id number] Social History Tobacco Use Types Packs/Day Years Used Date Smoking Tobacco: Never Assessed Sex Assigned at Date Recorded Not on file documented as of this encounter Progress Notes [facility], [facility] - 04/10/2004 4:30 PM CST Phone Note filed by Equidate at 08/13/10 1539 Author: Equidate Service: (none) Author Type: (none) Filed: 08/13/10 1539 Note Time: 04/10/04 1630 Status: Signed Orthopedic Technician: Equidate Hellen's mom is calling with test results from a rash on her face. She sees Dr.Kathleen Metz Please call.#[phone] Created on 10Apr2004 4:30pm by GRISELDA BAKER On 10Apr2004 4:47pm BRITTANY TURNER wrote: 2nd message, 1st message addressed and sent to Dr. Hernandes Acknowledged by BRITTANY TURNER on 7:54am documented in this encounter Plan of Treatment Not on filedocumented as of this encounter Visit Diagnoses Not on filedocumented in this encounter Care Teams Label Folder Relationship Specialty Start Date End Date Brisa Smith PA-C PCP - General 07/30/10 04/18/15 [address] [place] [address] documented as of this encounter
--- OUTSIDE RECORDS SUMMARY | 2022-03-07 14:58 | XMS_ITS | Encounter Summary ---
:1990 Author Organization Replaced by [facility] Address [address] [place] [address] Care Team Providers Name Role Phone Brisa Smith PA-C Primary Care Provider Encounter Details Date Type Department Care Team Description 03/28/2004 Office Visit Ashkan Yan MD [facility] [address] [place] [address] [place] [address] [phone] (Wo rk) Social History Tobacco Use Types [...] 0251 Note Time: 03/28/04 0001 Status: Signed High [employer] Auto Repair Teacher: Ashkan Hernandes MD (Physician) NAME: MINO POSADAS MR: [id number] ACCT: [id number] VISIT: [id number] DICTATING CLINICIAN: ASHKAN HERNANDES MD JOB: [id number] CLINIC PROGRESS NOTE DATE OF VISIT: 03/28/2004 [...] in the future if she broke out. KJM:[id number] C: 03/29/04 11:01 DOCUMENT: [id number] MS ADJUSTER SUPERVISOR documented in this encounter Plan of Treatment Not on filedocumented as of this encounter Visit Diagnoses Not on filedocumented in this encounter Care Teams Zipper Setter Relationship Specialty Start Date End Date Brisa Smith PA-C PCP - General 07/30/10 04/18/15 [address] [place] [address] documented as of this encounter
--- OUTSIDE RECORDS SUMMARY | 2022-03-07 14:58 | XMS_ITS | Encounter Summary ---
:1990 Author [facility] Address [address] [place] [address] Care Team Providers Name Role Phone Brisa Smtih PA-C Primary Care Provider Encounter Details Date Type Department Care Team Description 01/17/2005 Office Visit [facility] Abhay Philippe MD [address] [place] [address] [place] [address] [place] [address] [phone] (Wo rk) Social History Tobacco Use Types [...] 08/17/10 0829 Note Time: 01/17/052016 Status: Signed Jet Ski Mechanic: Abhay Philippe MD (Physician) NAME: MINO POSADAS MR: [id number] ACCT: [id number] VISIT: [id number] DICTATING CLINICIAN: ABHAY PHILIPPE MD JOB: [id number] CLINIC PROGRESS NOTE DATE OF VISIT: 01/17/2005 [...] does have slight abductor pain against resistance. INSURANCE ACCOUNT REPRESENTATIVE otherwise intact. Did obtain AP and frog-leg x-rays of pelvis. No obvious avulsion fracture. ASSESSMENT: Clinically concerned about an occult avulsion fracture with the distinct popping sensation vs a muscle strain/tendinitis. PLAN: Did recommend crutches, nonweightbearing and follow up with Orthopedics in 1 week. Symptomatic care described. Discussed with father in the exam room and later with mother by phone. DIAGNOSIS/IMPRESSION: Hip pain. [id number] C: 01/23/05 15:15 DOCUMENT: [id number] documented in this encounter Plan of Treatment [...] or significant bone or joint ab normality. [id number]/braulio Dictating TORIBIO WHEELER RADIOLOGIST Procedure Note Toribio Roy - 06/29/2016Formatting o f this note might be different from the original. HISTORY: Pain with volleyball injury. No acute or significant bone or joint ab normality. [id number]/braulio Dictating TORIBIO WHEELER RADIOLOGIST Abhay Philippe MD RAD GD documented in this encounter Visit Diagnoses Not on filedocumented in this encounter Care Teams Game Artist Relationship Specialty Start Date End Date Brisa Smith PAMimaC PCP - General 07/30/10 04/18/15 [address] [place] [address] documented as of this encounter
--- OUTSIDE RECORDS SUMMARY | 2022-03-07 14:58 | XMS_ITS | Encounter Summary ---
:1990 Author Organization [facility] Address [address], [place] [address] Care Team Providers Name Role Phone Brisa Smith PA-C Primary Care Provider Reason for Visit Reason Comments Other Encounter Details Date Type Department Care Team Description 03/27/2004 Telephone [facility] Chelo Álvarez Other [address] [place], [place] [address] Social History Tobacco Use Types Packs/Day Years Used Date Smoking Tobacco: Never Assessed Sex Assigned at Date Recorded Not on file documented as of this encounter Progress Notes Chelo Álvarez - 03/27/2004 4:36 PM CST Phone Note filed by Chelo Álvarez RN at 08/13/10 4358 Author: Chelo Álvarez RN Service: (none) Author Type: (none) Filed: 08/13/10 1525 Note Time: 03/27/04 1636 Status: Signed Shirt Finisher: Chelo Álvarez RN (Registered Nurse) Pt.has rash [...] on filedocumented in this encounter Care Teams Woodworking Shop Laborer Relationship Specialty Start Date End Date Brisa Smith PA-C PCP - General 07/30/10 04/18/15 [address] [place] [address] documented as of this encounter
--- OUTSIDE RECORDS SUMMARY | 2022-03-07 14:58 | XMS_ITS | Encounter Summary ---
:1990 Author Organization [facility] Address [address] [place] [address] Care Team Providers Name Role Phone Brisa Smith PA-C Primary Care Provider Reason for Visit Reason Comments Other Encounter Details Date Type Department Care Team Description 01/18/2005 Telephone [facility], Message Other [address] [place] [address] Social History Tobacco Use Types Packs/Day Years Used Date Smoking Tobacco: Never Assessed Sex Assigned at Date Recorded Not on file documented as of this encounter Progress [facility], Message - 01/18/2005 7:18 AM CDT Phone Note filed by Tã Em Bé at 08/13/102054 Author: Tã Em Bé Service: (none) Author Type: (none) Filed: 08/13/102054 Note Time: 01/18/05717 Status: Signed Director Of Teacher Education: Tã Em Bé Mom Shemar) Hellen mortensen was in for an appointment yesterday and dad brought her. She'd like to know what went on during the visit. Please call [phone]. Created on 18Jan2005 7:18am by DAWSON DILLON [...] not able to get in next week. INGENTS SUPERVISOR documented in this encounter Plan of Treatment Not on filedocumented as of this encounter Visit Diagnoses Not on filedocumented in this encounter Care Teams Pasting Inspector Relationship Specialty Start Date End Date Brisa Smith PA-C PCP - General 07/30/10 04/18/15 [address] [place] [address] documented as of this encounter
--- OUTSIDE RECORDS SUMMARY | 2022-03-07 14:58 | XMS_ITS | Encounter Summary ---
:1990 Author Organization [facility] Address [address], [place] [address] Care Team Providers Name Role Phone Brisa Smith PA-C Primary Care Provider Encounter Details Date Type Department Care Team Description 05/10/2004 PN Conversion Only HELENA CONVERSION Ralph, [address] Stern, BARRER AND TACKER, [place] [address] [address] [place] [address] (Wo rk) Social History Tobacco Use Types Packs/Day Years Used Date Smoking Tobacco: Never Assessed Sex Assigned at Date Recorded Not on file documented as of this encounter Plan of Treatment Not on filedocumented as of this encounter Procedures Procedure Name Priority Date/Time Associated Comments Diagnosis BORDETELLA PERTUSSIS / Routine 05/10/2004 10:26 R esults for this PARAPERTUSSIS AM DERMATOLOGY NURSE procedure are in WASH-NASAL the results section. documented in this encounter Results Bordetella Pertussis And Para Pcr (05/10/2004 10:26 AM DERMATOLOGY NURSE) [facility] Method Time Signature Specimen Source NASAL [...] performed pursuant to an ag reement with [employer] The performance characteristics of this test were validated by [employer]. The U.S. Food and Drug Administration (FDA) has not ap proved this test. The results are not intended to be used as the sole means for clinical diagnosis or pat ient management decisions. [employer] is authorized under [facility] Laboratory Improvement Amendments (CLIA) and by all [...] / / Volume Laterality 05/10/2004 10:26 AM DERMATOLOGY NURSE Lillian Rosas APRN, WELLNESS GUIDE LAB_1 Performing Organization Address City/State/ZIP Code Phon e Number HP CONVERSION documented in this encounter Visit Diagnoses Not on filedocumented in this encounter Care Teams Night Guard Relationship Specialty Start Date End Date Brisa Smith PA-C PCP - General 07/30/10 04/18/15 [address] [place] [address] documented as of this encounter
--- OUTSIDE RECORDS SUMMARY | 2022-03-07 14:58 | XMS_ITS | Encounter Summary ---
:1990 Author Organization [facility] Address [address] [place] [address] Care Team Providers Name Role Phone Brisa Smith PA-C Primary Care Provider Encounter Details Date Type Department Care Team Description 10/26/2004 [facility] Jose Flynn MD Orthopedics [address] [place] [address] Social History Tobacco Use Types Packs/Day Years Used Date Smoking Tobacco: Never Assessed Sex Assigned at Date Recorded Not on file documented as of this encounter Progress Notes Ranjith Garcia - 10/26/2004 12:01 AM CDT Progress Notes signed by at 10/30/04 0637 Author: Ranjith Garcia MD Service: (none) Author Type: (none) Filed: 08/17/10 0654 Note Time: 10/26/04 0001 Status: Signed Real Estate Agency Principal: Rudy Conversion NAME: MINO POSADAS MR: [id number] ACCT: [id number] VISIT: [id number] DICTATING CLINICIAN: RANJITH GARCIA MD,MPH JOB: [id number] CLINIC PROGRESS NOTE DATE OF VISIT: 10/26/2004 [...] an MRI scan of her right wrist. [id number] C: 10/28/04 13:48 DOCUMENT: [id number] ADVANCED documented in this encounter Plan of Treatment [...] is seen on these films. ljc/ ?? [id number] Dictating RIVERA [place] RADIOLOGIST Procedure Note Rivera Corbett - 06/29/2016 The previously noted tiny density descri bed adjacent to the medial aspect of the ulnar distal epiphysis on the films of 10/22/04 is not identified on today's films. No bony dis placement or complication is seen on these films. lj/ [id number] Dictating RIVERA [place] RADIOLOGIST Jose Garcia MD RAD GD documented in this encounter Visit Diagnoses Not on filedocumented in this encounter Care Teams Welding Teacher Relationship Specialty Start Date End Date Brisa Smith PA-C PCP - General 07/30/10 04/18/15 [address] [place] [address] documented as of this encounter
--- OUTSIDE RECORDS SUMMARY | 2022-03-07 14:58 | XMS_ITS | Encounter Summary ---
:1990 Author Organization [facility] Address [address] [place] [address] Care Team Providers Name Role Phone Brisa Smith PA-C Primary Care Provider Encounter Details Date Type Department Care Team Description 07/31/2004 Office Visit [facility] Rita Carlisle MD Counts include 234 beds at the [facility] [address] [place] [address] [phone] (Wo rk) Social History Tobacco Use Types [...] 0515 Note Time: 07/31/04 0001 Status: Signed Exterior Work Helper: Rita Ruiz MD (Physician) NAME: MINO POSADAS MR: [id number] ACCT: [id number] VISIT: [id number] DICTATING CLINICIAN: RITA RUIZ MD JOB: [id number] CLINIC PROGRESS NOTE DATE OF VISIT: 07/31/2004 [...] persistent pain, she should follow up p.r.n. [id number] C: 08/01/04 13:34 DOCUMENT: [id number] documented in this encounter Plan of Treatment [...] on filedocumented in this encounter Care Teams Pulp Grinder Relationship Specialty Start Date End Date Brisa Smith PA-C PCP - General 07/30/10 04/18/15 [address] [place] [address] documented as of this encounter
--- OUTSIDE RECORDS SUMMARY | 2022-03-07 14:58 | XMS_ITS | Encounter Summary ---
:1990 Author Organization [facility] Address [address], [place] [address] Care Team Providers Name Role Phone Brisa Smith PA-C Primary Care Provider Reason for Visit Reason Comments Other Encounter Details Date Type Department Care Team Description 10/22/2004 Telephone [facility] Isabel Garnica RN Other [address] [employer] [place], [place] [id number] Social History Tobacco Use Types Packs/Day Years Used Date Smoking Tobacco: Never Assessed Sex Assigned at Date Recorded Not on file documented as of this encounter Progress Notes Isabel Oropeza RN - 10/22/2004 7:04 AM CDT Phone Note filed by Isabel Oropeza RN at 08/13/101901 Author: Isabel Oroepza RN Service: (none) Author Type: Registered Nurse Filed: 08/13/101901 Note Time: 10/22/04703 Status: Signed Gift Shop Clerk: Isabel Oropeza RN (Registered Nurse) Phone Care Triage Note IMPRESSION: Wrist pain SYMPTOMS: Injured right hand yesterday playing soccer. dad on field recommended she get an xray. Top of hand is sore, unable to premium auditor. Mildly painful, no swelling. PATIENT INFORMATION: Problem List: Reviewed today in LastWord --- Allergies: Reviewed/updated today in LastWord --- Medications: Reviewed/updated today in LastWord Advised: call back if symptoms worsen or persist, any other questions or concerns. Information given per: Pediatric Telephone Protocols, [place] mcbride Wrist pain PLAN: SCHEDULE APPOINTMENT WITHIN 12 HOURS, appt booked at 13:[address] Mcmanus Patient/Caller agrees with plan and denies additional questions. Denies emergent, urgent symptoms Call Complete. Created on 22Oct2004 7:04am by ISABEL OROPEZA SELING SERVICES DIRECTOR documented in this encounter Plan of Treatment Not on filedocumented as of this encounter Visit Diagnoses Not on filedocumented in this encounter Care Teams Flue Tile Press Operator Relationship Specialty Start Date End Date Brisa Smith PA-C PCP - General 07/30/10 04/18/15 [address] [place] [address] documented as of this encounter
--- OUTSIDE RECORDS SUMMARY | 2022-03-07 14:58 | XMS_ITS | Encounter Summary ---
:1990 Author Organization [facility] Address [address] [place] [address] Care Team Providers Name Role Phone Brisa Smith PA-C Primary Care Provider Encounter Details Date Type Department Care Team Description 08/29/2004 Office Visit Ashkan Yan MD [facility] [place] [address] [place] [address] [phone] (Wo rk) Social History Tobacco Use Types [...] 0551 Note Time: 08/29/04 0001 Status: Signed Inking Machine Tender: Ashkan Hernandes MD (Physician) NAME: MINO POSADAS MR: [id number] ACCT: [id number] VISIT: [id number] DICTATING CLINICIAN: ASHKAN HERNANDES MD JOB: [id number] CLINIC PROGRESS NOTE DATE OF VISIT: 08/29/2004 [...] her with a full course of antibiotics. [id number] C: 09/04/04 08:31 DOCUMENT: [id number] documented in this encounter Plan of Treatment Not on filedocumented as of this encounter Visit Diagnoses Not on filedocumented in this encounter Care Teams Graining Press Operator Relationship Specialty Start Date End Date Brisa Smith PA-C PCP - General 07/30/10 04/18/15 [address] [place] [address] documented as of this encounter
--- OUTSIDE RECORDS SUMMARY | 2022-03-07 14:58 | XMS_ITS | Encounter Summary ---
:1990 Author Organization [facility] Address [address] [place] [address] Care Team Providers Name Role Phone Brisa Smith PA-C Primary Care Provider Encounter Details Date Type Department Care Team Description 07/10/2004 Office Visit [facility] re [place]ña [place] [address] [place], [place] [address] [address] [phone] Social History Tobacco Use Types Packs/Day Years [...] 0452 Note Time: 07/10/04 0001 Status: Signed Commercial Stripper: Ailin Piña MD (Physician) NAME: MINO POSADAS MR: [id number] ACCT: [id number] VISIT: [id number] DICTATING CLINICIAN: AILIN PIÑA MD JOB: [id number] CLINIC PROGRESS NOTE DATE OF VISIT: 07/10/2004 [...] for five days. FINAL DIAGNOSIS: Otitis media. [id number] C: 07/11/04 15:45 DOCUMENT: [id number] documented in this encounter Plan of Treatment Not on filedocumented as of this encounter Visit Diagnoses Not on filedocumented in this encounter Care Teams Patrol Commander Relationship Specialty Start Date End Date Brisa Smith PA-C PCP - General 07/30/10 04/18/15 [address] [place] [address] documented as of this encounter
--- OUTSIDE RECORDS SUMMARY | 2022-03-07 14:58 | XMS_ITS | Encounter Summary ---
:1990 Author Organization [facility] Address [address] [place] [address] Care Team Providers Name Role Phone Brisa Smith PA-C Primary Care Provider Reason for Visit Reason Comments Other Encounter Details Date Type Department Care Team Description 08/01/2004 Telephone [facility] Rita Carlisle MD Other [facility] [place] [employer] [address] [place] [address] [place] [address] [phone] (Wo rk) Social History Tobacco Use Types Packs/Day Years Used Date Smoking Tobacco: Never Assessed Sex Assigned at Date Recorded Not on file documented as of this encounter Progress Notes Center, Message - 08/01/2004 7:52 AM CDT Phone Note filed by [employer] at 08/13/101737 Author: [employer] Service: (none) Author Type: (none) Filed: 08/13/10 173 Note Time: 08/01/04751 Status: Signed Vice President Of Communications: [employer] X-ray calling as requested, right wrist is negative. Created on 01Aug2004 7:52am by DAWSON DILLON M On 01Aug2004 1:34pm GRISELDA GIBSON wrote: Talked to mom and results of x-ray given. Acknowledged by RIAT VILLEGAS on 8:04am ITY ASSURANCE/R&D LAB TECHNICIAN documented in this encounter Plan of Treatment Not on filedocumented as of this encounter Visit Diagnoses Not on filedocumented in this encounter Care Teams Data Management Associate Relationship Specialty Start Date End Date Brisa Smith PA-C PCP - General 07/30/10 04/18/15 [address] [place] [address] documented as of this encounter
--- OUTSIDE RECORDS SUMMARY | 2022-03-07 14:58 | XMS_ITS | Encounter Summary ---
:1990 Author Organization [facility] Address [address] [address] Care Team Providers Name Role Phone Brisa Smith PA-C Primary Care Provider Reason for Visit Reason Comments Other Encounter Details Date Type Department Care Team Description 03/12/2005 Telephone [facility] Kirti Kent Other [address] [place], [place] [phone] Social History Tobacco Use Types Packs/Day Years Used Date Smoking Tobacco: Never Assessed Sex Assigned at Date Recorded Not on file documented as of this encounter Progress Notes Kirti Kent - 03/12/2005 5:53 PM CST Phone Note filed by Kirti Kent RN at 08/13/102221 Author: Kirti Kent RN Service: (none) Author Type: Registered Nurse Filed: 08/13/102221 Note Time: 03/12/051752 Status: Signed Marine Electrician: Kirti Kent RN (Registered Nurse) Mom calling for immunizations needed tonight when they go to a meeting about vollyball. Gave mom the immunizations that were in the computer. All that she needed weren't there. Created on 12Mar2005 5:53pm by KIRTI KENT NT FINISHER APPRENTICE documented in this encounter Plan of Treatment Not on filedocumented as of this encounter Visit Diagnoses Not on filedocumented in this encounter Care Teams Community Coordinator Relationship Specialty Start Date End Date Brisa Smith PA-C PCP - General 07/30/10 04/18/15 [address] [place] [address] documented as of this encounter
--- OUTSIDE RECORDS SUMMARY | 2022-03-07 14:58 | XMS_ITS | Encounter Summary ---
:1990 Author Organization [facility] Address [address] [place] [address] Care Team Providers Name Role Phone Brisa Smith PA-C Primary Care Provider Reason for Visit Reason Comments Other Encounter Details Date Type Department Care Team Description 04/09/2004 Telephone [facility] Brittany Turner [address] [place], [place] [address], [place] [id number] Social History Tobacco Use Types Packs/Day Years Used Date Smoking Tobacco: Never Assessed Sex Assigned at Date Recorded Not on file documented as of this encounter Progress Notes Center, Message - 04/09/2004 1:20 PM CST Phone Note filed by [employer] at 08/13/10 5741 Author: [employer] Service: (none) Author Type: (none) Filed: 08/13/10 1537 Note Time: 04/09/04 1320 Status: Signed Picker: [employer] MESSAGE TO CARE TEAM NAME OF CALLER:Rene (Mom) NAME OF CLINICIAN:Ashkan Hernandes MESSAGE:Pt. had a culture done 03/30. Mom would like to have the results. PHARMACY NAME: PHARMACY PHONE #: CALL BACK PHONE #:[phone] BEST TIME TO CALL BACK:any Is it [...] on filedocumented in this encounter Care Teams Sport Internship Relationship Specialty Start Date End Date Brisa Smith PA-C PCP - General 07/30/10 04/18/15 [address] [place] [address] documented as of this encounter
--- OUTSIDE RECORDS SUMMARY | 2022-03-07 14:58 | XMS_ITS | Encounter Summary ---
:1990 Author Organization [facility] Address [address], [place] [address] Care Team Providers Name Role Phone Brisa Smith PA-C Primary Care Provider Encounter Details Date Type Department Care Team Description 03/25/2005 PN Conversion Only HELENA CONVERSION Lena Chiu, CARD PAINTER, [address] [place] [address] [address] [place] [address] (Wo rk) Social History Tobacco Use Types Packs/Day Years Used Date Smoking Tobacco: Never Assessed Sex Assigned at Date Recorded Not on file documented as of this encounter Plan of Treatment Not on filedocumented as of this encounter Procedures Procedure Name Priority Date/Time Associated Comments Diagnosis PARVOVIRUS B19 IGG & IGM Routine 03/25/2005 2:38 Results for this ANTIBODIES PM GOVERNMENT PROGRAM MANAGER procedure are i n the results section. ISA ALTAMIRANO VIRUS PANEL Routine 03/25/2005 2:38 Results for this PM GOVERNMENT PROGRAM MANAGER procedure are i n the results section. CYTOMEGALOVIRUS IGM Routine 03/25/2005 2:38 Resul ts for this ANTIBODY PM GOVERNMENT PROGRAM MANAGER procedure are i n the results section. CYTOMEGALOVIRUS IGG Routine 03/25/2005 2:38 Resul ts for this ANTIBODY PM GOVERNMENT PROGRAM MANAGER procedure are i n the results section. URINALYSIS COMPLETE Routine 03/25/2005 2:38 Resul ts for this PM GOVERNMENT PROGRAM MANAGER procedure are i n the results section. MONONUCLEOSIS SCREEN Routine 03/25/2005 2:38 Resu lts for this PM GOVERNMENT PROGRAM MANAGER procedure are i n the results section. COMPLETE BLOOD Routine 03/25/2005 2:38 Results fo r this COUNT-W/DIFF PM GOVERNMENT PROGRAM MANAGER procedure are i n the results section. documented in this encounter Results Complete Blood Count-W/Diff (03/25/2005 2:38 PM GOVERNMENT PROGRAM MANAGER) [facility] Method Time Signature White Blood Cell [...] - HP CONVERSION Hemoglobin Conc 36.5 gm/dL [place] RDW 12.2 11.0 - HP CONVERSION 15.0 [...] / / Volume Laterality 03/25/2005 2:38 PM GOVERNMENT PROGRAM MANAGER Lena Chiu APRN, CNP LAB_1 Performing Organization Address City/[facility]/ZIP Code Phon e Number HP CONVERSION Mononucleosis Screen (03/25/2005 2:38 PM GOVERNMENT PROGRAM MANAGER) [facility] Method Time Signature Infectious Negative Negative HP CONVERSION Mononucleosis Screen Specimen (Source) Anatomical Collection Method Collection Time Re ceived Time Location / / Volume Laterality 03/25/2005 2:38 PM GOVERNMENT PROGRAM MANAGER Lena Chiu APRN, CNP LAB_1 Performing Organization Address City/State/ZIP Code Phon e Number HP CONVERSION Urinalysis Complete (03/25/2005 2:38 PM GOVERNMENT PROGRAM MANAGER) [facility] Method Time Signature Glucose, Negative Neg-Trac HP CONVERSION Qualitative U Protein Urine Negative Neg-Trac HP CONVERSION Ketones Negative Negative HP CONVERSION U BILI Negative Negative HP CONVERSION U Specific 1.025 1.005 - 25 HP CONVERSION [place] Blood Urine Negative Negative HP CONVERSION pH [...] / / Volume Laterality 03/25/2005 2:38 PM GOVERNMENT PROGRAM MANAGER Lena Chiu CARD PAINTER, PATIENT OBSERVATION ASSISTANT LAB_1 Performing Organization Address City/State/ZIP Code Phon e Number HP CONVERSION Isa Alt[place]ir[place] Virus Panel (03/25/2005 2:38 PM GOVERNMENT PROGRAM MANAGER) athologist Signature Isa-Alt[place] 0.35 HP CONVERSION Vca [...] / / Volume Laterality 03/25/2005 2:38 PM GOVERNMENT PROGRAM MANAGER Lena Chiu APRN, PATIENT OBSERVATION ASSISTANT LAB_1 Performing Organization Address City/State/ZIP Code Phon e Number HP CONVERSION Parvovirus B19 Igg & Igm Antibodies (03/25/2005 2:38 PM GOVERNMENT PROGRAM MANAGER) athologist Signature Parvovirus B19 0.28 HP CONVERSION [...] / / Volume Laterality 03/25/2005 2:38 PM GOVERNMENT PROGRAM MANAGER Lena Chiu APRN, ROSA LAB_1 Performing Organization Address [facility] Phon e Number HP CONVERSION Cytomegalovirus IgG Antibody (03/25/2005 2:38 PM GOVERNMENT PROGRAM MANAGER) [facility] Method Time Signature Cytomegalovirus IgG 36 [...] / / Volume Laterality 03/25/2005 2:38 PM GOVERNMENT PROGRAM MANAGER Lena Chiu APRN, CNP LAB_1 Performing Organization Address [facility] Phon e Number HP CONVERSION Cytomegalovirus IgM Antibody (03/25/2005 2:38 PM GOVERNMENT PROGRAM MANAGER) [facility] gist Method Time Signature Cytomegalovirus IgM [...] / / Volume Laterality 03/25/2005 2:38 PM GOVERNMENT PROGRAM MANAGER Lena Chiu APRN, ROSA LAB_1 Performing Organization Address City/State/ZIP Code Phon e Number HP CONVERSION documented in this encounter Visit Diagnoses Not on filedocumented in this encounter Care Teams Display Designer Relationship Specialty Start Date End Date Brisa Smith PA-C PCP - General 07/30/10 04/18/15 [address] [place] [address] documented as of this encounter
--- OUTSIDE RECORDS SUMMARY | 2022-03-07 14:58 | XMS_ITS | Encounter Summary ---
:1990 Author Organization [facility] Address [address] [place] [address] Care Team Providers Name Role Phone Brisa Smith PA-C Primary Care Provider Encounter Details Date Type Department Care Team Description 11/02/[address] [facility] [place] [address] [place] [address] [phone] (Wo rk) Social History Tobacco Use Types [...] 0700 Note Time: 11/02/04 0001 Status: Signed Agency Appointments Supervisor: Tyrone Greer MD (Physician) NAME: MINO POSADAS MR: [id number] ACCT: [id number] VISIT: [id number] DICTATING CLINICIAN: TYRONE GREER MD,MS JOB: [id number] CLINIC PROGRESS NOTE DATE OF VISIT: 11/02/2004 [...] different cast. He agreed to do so. [id number]:[id number] C: 11/03/04 22:04 DOCUMENT: [id number] documented in this encounter Plan of Treatment Not on filedocumented as of this encounter Visit Diagnoses Not on filedocumented in this encounter Care Teams Marine Habitat Resource Specialist Relationship Specialty Start Date End Date Brisa Smith PA-C PCP - General 07/30/10 04/18/15 [address] [place] [address] documented as of this encounter
--- OUTSIDE RECORDS SUMMARY | 2022-03-07 14:58 | XMS_ITS | Encounter Summary ---
:1990 Author Organization [facility] Address [address], [place] [address] Care Team Providers Name Role Phone Brisa Smith PA-C Primary Care Provider Reason for Visit Reason Comments Other Encounter Details Date Type Department Care Team Description 03/05/2005 Telephone [facility] Genoveva Villasenor LPN Other [address] [place] [address] Social History Tobacco Use Types Packs/Day Years Used Date Smoking Tobacco: Never Assessed Sex Assigned at Date Recorded Not on file documented as of this encounter Progress Notes [facility], [facility] - 03/05/2005 7:57 AM CST Phone Note filed by [employer] at 08/13/102207 Author: [employer] Service: (none) Author Type: (none) Filed: 08/13/102207 Note Time: 03/05/05756 Status: Signed Tip Printer: [employer] Mom Shemar) calling to request a work-in this afternoon. She wants Hellen to get a mono test, and you have a few 15 minute openings. She can be reached at [phone]. Created on 05Mar2005 7:57am by DAWSON DILLON M On 05Mar2005 8:06am LENA CHIU wrote: OK to work-in Acknowledged by LENA CHIU on 8:06am On 05Mar2005 8:12am GENOVEVA JARQUIN wrote: LM for Mari to call back. We could have her come at 1515, that would work the best. Acknowledged by GENOVEVA JARQUIN on 8:12am On 05Mar2005 9:55am TERESA BRAVO wrote: Pt's mother, Mari, calling back for Genoveva; she's not sure why she didn't hear the phone ring. I gave her the message that her daughter is scheduled for 151 today with eLna Chiu. Mari says, Thank you!! No call-back needed. Acknowledged by GENOVEVA JARQUIN on 10:02am WELL SERVICE UNIT OPERATOR documented in this encounter Plan of Treatment Not on filedocumented as of this encounter Visit Diagnoses Not on filedocumented in this encounter Care Teams Tape Machine Tailer Relationship Specialty Start Date End Date Brisa Smith PA-C PCP - General 07/30/10 04/18/15 [address] [place] [address] documented as of this encounter
--- OUTSIDE RECORDS SUMMARY | 2022-03-07 14:58 | XMS_ITS | Encounter Summary ---
:1990 Author Organization [facility] Address [address] [place] [address] Care Team Providers Name Role Phone Brisa Smith PA-C Primary Care Provider Encounter Details Date Type Department Care Team Description 07/10/2004 PN Conversion Only [place] [address] [address] [place] [address] Social History Tobacco Use Types Packs/Day Years Used Date Smoking Tobacco: Never Assessed Sex Assigned at Date Recorded Not on file documented as of this encounter Plan of Treatment Not on filedocumented as of this encounter Visit Diagnoses Not on filedocumented in this encounter Care Teams Event Marketing Manager Relationship Specialty Start Date End Date Brisa Smith PA-C PCP - General 07/30/10 04/18/15 [address] [place], [place] [address] documented as of this encounter
--- OUTSIDE RECORDS SUMMARY | 2022-03-07 14:58 | XMS_ITS | Encounter Summary ---
:1990 Author Organization [facility] Address [address], [place] [address] Care Team Providers Name Role Phone Brisa Smith PA-C Primary Care Provider Encounter Details Date Type Department Care Team Description 03/05/2005 PN Conversion Only HELENA CONVERSION Lena Chiu, CAP JEWEL PLATE ASSEMBLER, [address] [address] [address] [phone] (Wo rk) Social History Tobacco Use Types Packs/Day Years Used Date Smoking Tobacco: Never Assessed Sex Assigned at Date Recorded Not on file documented as of this encounter Plan of Treatment Not on filedocumented as of this encounter Procedures Procedure Name Priority Date/Time Associated Comments Diagnosis STREP GROUP A ANTIGEN Routine 03/05/2005 4:21 PM Results for this TEST FLAT SORTER PROCESSOR procedure are i n the results section. BETA STREP FOLLOWUP Routine 03/05/2005 4:21 PM Re sults for this FLAT SORTER PROCESSOR procedure are i n the results section. THYROID STIMULATING Routine 03/05/2005 3:47 PM Re sults for this HORMONE FLAT SORTER PROCESSOR procedure are i n the results section. MONONUCLEOSIS SCREEN Routine 03/05/2005 3:47 PM R esults for this FLAT SORTER PROCESSOR procedure are i n the results section. COMPLETE BLOOD Routine 03/05/2005 3:47 PM Results for this COUNT-W/DIFF FLAT SORTER PROCESSOR procedure are i n the results section. FERRITIN Routine 03/05/2005 3:47 PM Results f or this FLAT SORTER PROCESSOR procedure are i n the results section. documented in this encounter Results Strep Group A Antigen Test (03/05/2005 4:21 PM FLAT SORTER PROCESSOR) [facility] Time Signature Strep Group A Negative Negative HP CONVERSION Antigen Test Comment: Culture to follow. Specimen (Source) Anatomical Collection Method Collection Time Re ceived Time Location / / Volume Laterality 03/05/2005 4:21 PM FLAT SORTER PROCESSOR eLna Chiu APRN, ROSA LAB_1 Performing Organization Address [facility] Phon e Number HP CONVERSION Beta Strep Followup (03/05/2005 4:21 PM FLAT SORTER PROCESSOR) athologist Signature Strep Screen SEE TEXT HP CONVERSION Comment: Patient: MINO POSADAS Rapid Strep Follow up Culture @ ? Collected: ??[id number] ??[id number] Source: Throat ?Processed: ??[id number] ??[id number] Final Report ------ ?[id number] ??[id number] No beta hemolytic Strep group A isolated . @ = Rapid F/U Cult Performed at ??[address] [place], [place] ?[address] Specimen (Source) Anatomical Collection Method Collection Time Re ceived Time Location / / Volume Laterality 03/05/2005 4:21 PM FLAT SORTER PROCESSOR Lena Chiu APRN, SEISMIC PROSPECTING OBSERVER LAB_1 Performing Organization Address [facility] Phon e Number HP CONVERSION (ABNORMAL) Complete Blood Count-W/Diff (03/05/2005 3:47 PM FLAT SORTER PROCESSOR) [facility] Method Time Signature White Blood Cell [...] - HP CONVERSION Hemoglobin Conc 36.5 gm/dL [place] RDW 12.3 11.0 - HP CONVERSION 15.0 [...] / / Volume Laterality 03/05/2005 3:47 PM FLAT SORTER PROCESSOR Lena Chiu APRN, CNP LAB_1 Performing Organization Address City/[facility] Code Phon e Number HP CONVERSION Mononucleosis Screen (03/05/2005 3:47 PM FLAT SORTER PROCESSOR) [facility] Method Time Signature Infectious Negative Negative HP CONVERSION Mononucleosis Screen Specimen (Source) Anatomical Collection Method Collection Time Re ceived Time Location / / Volume Laterality 03/05/2005 3:47 PM FLAT SORTER PROCESSOR Lena Chiu APRN, CNP LAB_1 Performing Organization Address City/[facility]/ZIP Code Phon e Number HP CONVERSION Thyroid Stimulating Hormone (03/05/2005 3:47 PM FLAT SORTER PROCESSOR) athologist Signature Thyroid 1.20 0.20 - HP CONVERSION Stimulating 4.50 Hormone uIU/mL Specimen (Source) Anatomical Collection Method Collection Time Re ceived Time Location / / Volume Laterality 03/05/2005 3:47 PM FLAT SORTER PROCESSOR Lena Chiu APRN, CNP LAB_1 Performing Organization Address City/State/ZIP Code Phon e Number HP CONVERSION Ferritin (03/05/2005 3:47 PM FLAT SORTER PROCESSOR) P athologist Signature Ferritin Serum 13 10 - 291 HP CONVERSION ng/mL Specimen (Source) Anatomical Collection Method Collection Time Re ceived Time Location / / Volume Laterality 03/05/2005 3:47 PM FLAT SORTER PROCESSOR Lena Chiu CAP JEWEL PLATE ASSEMBLER, SEISMIC PROSPECTING OBSERVER LAB_1 Performing Organization Address City/State/ZIP Code Phon e Number HP CONVERSION documented in this encounter Visit Diagnoses Not on filedocumented in this encounter Care Teams Planner Chief Relationship Specialty Start Date End Date Brisa Smith PA-C PCP - General 07/30/10 04/18/15 [address] [place] [address] documented as of this encounter
--- OUTSIDE RECORDS SUMMARY | 2022-03-07 14:58 | XMS_ITS | Encounter Summary ---
:1990 [facility] Address [address] [place] [address] Care Team Providers Name Role Phone Brisa Smith PA-C Primary Care Provider Encounter Details Date Type Department Care Team Description 12/06/2004 Office Visit [facility] 393 Jose Flynn MD Orthopedics [address] [place] [address] Social History Tobacco Use Types Packs/Day Years Used Date Smoking Tobacco: Never Assessed Sex Assigned at Date Recorded Not on file documented as of this encounter Progress Notes Ranjith Garcia - 12/06/2004 12:01 AM CDT Progress Notes signed by at 12/12/04 1200 Author: Ranjith Garcia MD Service: (none) Author Type: (none) Filed: 08/17/10 0739 Note Time: 12/06/04 0001 Status: Signed Sql Manager: Rudy Conversion NAME: MINO POSADAS MR: [id number] ACCT: [id number] VISIT: [id number] DICTATING CLINICIAN: RANJITH GARCIA MD,MPH JOB: [id number] CLINIC PROGRESS NOTE DATE OF VISIT: 12/06/2004 [...] guard here for the next few weeks. DGK:[id number] C: 12/06/04 09:12 DOCUMENT: [id number] LATHER documented in this encounter Plan of Treatment Not on filedocumented as of this encounter Visit Diagnoses Not on filedocumented in this encounter Care Teams Hotel Receptionist Relationship Specialty Start Date End Date Brisa Smith PA-C PCP - General 07/30/10 04/18/15 [address] [place] [address] documented as of this encounter
--- OUTSIDE RECORDS SUMMARY | 2022-03-07 14:58 | XMS_ITS | Encounter Summary ---
:1990 [facility] Address [address] [address] Care Team Providers Name Role Phone Brisa Smith PA-C Primary Care Provider Reason for Visit Reason Comments Other Encounter Details Date Type Department Care Team Description 05/14/2004 Telephone [facility], Message Other [address] [place] [address] Social History Tobacco Use Types Packs/Day Years Used Date Smoking Tobacco: Never Assessed Sex Assigned at Date Recorded Not on file documented as of this encounter Progress Notes Center, Message - 05/14/2004 2:07 PM CST Phone Note filed by [employer] at 08/13/10 1610 Author: [employer] Service: (none) Author Type: (none) Filed: 08/13/10 1610 Note Time: 05/14/04 1407 Status: Signed Home Health Rn: [facility] MESSAGE TO CARE TEAM NAME OF CALLER:Mildred (mom) NAME OF CLINICIAN:Lillian Gaspar NP MESSAGE:Mildred is calling for test results for Hellen, please call to discuss. She also would like the results for Xander's (her son) test results as well. PHARMACY NAME: PHARMACY PHONE #: CALL BACK PHONE #:[phone] (home) BEST TIME TO CALL BACK:anytime Is it OK to leave detailed message on voicemail?yes Created on 14May2004 2:07pm by CHRISTINA NGUYEN On 14May2004 3:18pm JOSE MARTIN ABHAY Deshawn wrote: No pertussis. Acknowledged by ABHAY PHILIPPE on 3:18pm On 14May2004 3:27pm ROLLY WOODARD wrote: Mom was notified of the results. documented in this encounter Plan of Treatment Not on filedocumented as of this encounter Visit Diagnoses Not on filedocumented in this encounter Care Teams Bank Advisor Relationship Specialty Start Date End Date Brisa Smith PA-C PCP - General 07/30/10 04/18/15 [address] [place] [address] documented as of this encounter
--- OUTSIDE RECORDS SUMMARY | 2022-03-07 14:58 | XMS_ITS | Encounter Summary ---
:1990 Author Organization [facility] Address [address], [place] [address] Care Team Providers Name Role Phone Brisa Smith PA-C Primary Care Provider Reason for Visit Reason Comments Other Encounter Details Date Type Department Care Team Description 04/04/2005 Telephone [facility], Message Other [address] [place] [address] Social History Tobacco Use Types Packs/Day Years Used Date Smoking Tobacco: Never Assessed Sex Assigned at Date Recorded Not on file documented as of this encounter Progress Notes Lena Chiu - 04/04/2005 6:22 PM CST Phone Note filed by KIMBERLY Guerrier at 08/13/102299 Author: KIMBERLY Guerrier Service: (none) Author Type: Nurse Practitioner Filed: 08/13/102299 Note Time: 04/04/051821 Status: Signed Barrel Reamer: KIMBERLY Guerrier (Nurse Practitioner) Please notify ALL [...] is doing, but could stop the other herbal/mohawk products and see how she does. I [...] Mom calling for and received above msg. INTERFACE ANALYST documented in this encounter Plan of Treatment Not on filedocumented as of this encounter Visit Diagnoses Not on filedocumented in this encounter Care Teams Custom Framing Specialist Relationship Specialty Start Date End Date Brisa Smith PA-C PCP - General 07/30/10 04/18/15 [address] [place] [address] documented as of this encounter
--- OUTSIDE RECORDS SUMMARY | 2022-03-07 14:58 | XMS_ITS | Encounter Summary ---
:1990 Author [facility] Address [address] [place] [address] Care Team Providers Name Role Phone Brisa Smith PA-C Primary Care Provider Encounter Details Date Type Department Care Team Description 10/22/2004 Office Visit Chloe Stacy MD [facility] [place] [address] [place] [address] [phone] (Wo rk) Social History Tobacco Use Types [...] Type: Physician Filed: 08/17/10 0649 Note Time: 10/22/042016 Status: Signed Plant Technician/Control Room Operator: Chloe Mcmanus MD (Physician) NAME: MINO POSADAS MR: [id number] ACCT: [id number] VISIT: [id number] DICTATING CLINICIAN: CHLOE MCMANUS MD JOB: [id number] CLINIC PROGRESS NOTE DATE OF VISIT: 10/22/2004 SUBJECTIVE: : 1990. Reason for visit: Wrist pain. [id number], 48 hours prior to this exam, had her right hand slammed in between her and another supervisor backfilling, took herself out of the game briefly, did not tell anybody, was able to finish and reports immediate swelling. An ice cream shop associate, on the sidelines, examined it, re-examined it [...] for film review and re-examination October 26. [id number] C: 10/23/04 12:28 DOCUMENT: [id number] documented in this encounter Plan of Treatment [...] clude a tiny Salter-Herbert type 2 fracture. [id number] Dictating NELSON TORRES Radiologist Narrative 10/22/2004 1:47 [...] clude a tiny Salter-Herbert type 2 fracture. [id number] Dictating NELSON TORRES Radiologist Chloe Mcmanus MD RAD GD documented in this encounter Visit Diagnoses Not on filedocumented in this encounter Care Teams Spear Fisher Relationship Specialty Start Date End Date Brisa Smith PA-C PCP - General 07/30/10 04/18/15 [address] [place] [address] documented as of this encounter
--- OUTSIDE RECORDS SUMMARY | 2022-03-07 14:59 | XMS_ITS | Encounter Summary ---
:1990 Author Organization [facility] Address [address] [place] [address] Care Team Providers Name Role Phone Brisa Smith PA-C Primary Care Provider Encounter Details Date Type Department Care Team Description 01/23/2004 PN Conversion Only HELENA CONVERSION Rita Carlisle, [address] [address] [address] [place], [place] [phone] (Wo rk) Social History Tobacco Use Types [...] Strep Follow up Culture @ ? Collected: ??[id number] ??[id number] Source: Throat ?Processed: ??[id number] ??1529 Final Report ------ ?[id number] ??0910 No beta hemolytic Strep group A isolated . @ = Rapid F/U Cult Performed at [address] [place], [place] ?[address] Specimen (Source) Anatomical Collection Method Collection Time Re ceived Time Location / / Volume Laterality 01/23/2004 3:28 PM CDT Rita Carlisle MD LAB_1 Performing Organization Address City/State/ZIP Code Phon e Number HP CONVERSION documented in this encounter Visit Diagnoses Not on filedocumented in this encounter Care Teams Bronc Breaker Relationship Specialty Start Date End Date Brisa Smith PA-C PCP - General 07/30/10 04/18/15 [address] [place] [address] documented as of this encounter
--- OUTSIDE RECORDS SUMMARY | 2022-03-07 14:59 | XMS_ITS | Encounter Summary ---
:1990 Author Organization [facility] Address [address], [place] [address] Care Team Providers Name Role Phone Brisa Smith PA-C Primary Care Provider Encounter Details Date Type Department Care Team Description 03/07/2004 PN Conversion Only HELENA CONVERSION Isidro Cheatham, [address] [place] [address] Social History Tobacco Use Types Packs/Day Years Used Date Smoking Tobacco: Never Assessed Sex Assigned at Date Recorded Not on file documented as of this encounter Plan of Treatment Not on filedocumented as of this encounter Procedures Procedure Name Priority Date/Time Associated Diagnosis Comme nts STREP GROUP A Routine 03/07/2004 5:08 PM Results for this ANTIGEN TEST JOB SETTER procedure are i n the results section. BETA STREP FOLLOWUP Routine 03/07/2004 5:08 PM Re sults for this JOB SETTER procedure are i n the results section. documented in this encounter Results Strep Group A Antigen Test (03/07/2004 5:08 PM JOB SETTER) Analysis Performed At Patho logist Time Signature Strep Group A Negative Negative HP CONVERSION Antigen Test Comment: Culture to follow. Specimen (Source) Anatomical Collection Method Collection Time Re ceived Time Location / / Volume Laterality 03/07/2004 5:08 PM JOB SETTER Isidro Cheatham MD LAB_1 Performing Organization Address City/State/ZIP Code Phon e Number HP CONVERSION Beta Strep Followup (03/07/2004 5:08 PM JOB SETTER) P athologist Signature Strep Screen SEE TEXT HP CONVERSION Comment: Patient: POSADAS, MINO J Rapid Strep Follow up Culture @ ? Collected: ??[id number] ??[id number] Source: Throat ?Processed: ??[id number] ??[id number] Final Report ------ ?[id number] ??[id number] No beta hemolytic Strep group A isolated . @ = Rapid F/U Cult Performed at ??[address] [place], [place] ?[address] Specimen (Source) Anatomical Collection Method Collection Time Re ceived Time Location / / Volume Laterality 03/07/2004 5:08 PM JOB SETTER Isidro Cheatham MD LAB_1 Performing Organization Address City/State/ZIP Code Phon e Number HP CONVERSION documented in this encounter Visit Diagnoses Not on filedocumented in this encounter Care Teams Inside Sales Account Representative Relationship Specialty Start Date End Date Brisa Smith PA-C PCP - General 07/30/10 04/18/15 [address] [place] [address] documented as of this encounter
--- OUTSIDE RECORDS SUMMARY | 2022-03-07 14:59 | XMS_ITS | Encounter Summary ---
:1990 Author Organization [facility] Address [address] [place] [address] Care Team Providers Name Role Phone Brisa Smith PA-C Primary Care Provider Encounter Details Date Type Department Care Team Description 03/07/2004 Office Visit [facility] Isidro Cheatham MD [facility] [place] [address] Social History Tobacco Use Types Packs/Day Years Used Date Smoking Tobacco: Never Assessed Sex Assigned at Date Recorded Not on file documented as of this encounter Progress Notes Isidro Cheatham - 03/07/2004 12:01 AM CST Progress Notes signed by Isidro Cheatham MD at 03/07/04 1706 Author: Isidro Cheatham MD Service: (none) Author Type: Physician Filed: 08/17/10 0228 Note Time: 03/07/04 0001 Status: Signed Outreach Manager: Isidro Cheatham MD (Physician) [facility] Acute Clinic Visit IMPRESSION: URI [...] filedocumented in this encounter Care Teams Senior Portfolio Manager Relationship Specialty Start Date End Date Brisa Smith PA-C PCP - General 07/30/10 04/18/15 [address] [place] [address] documented as of this encounter
--- NOTE | 2022-03-07 15:00 | CRLHL7_ITS ---
For Patients: As a result of the Cures Act, medical imaging exams and procedure reports are released immediately into your electronic medical record. You may view this report before your referring provider. If you have questions, please contact your health care provider. INDICATION: Follow up growth. TECHNIQUE: Transabdominal obstetrical ultrasound. COMPARISON: January 31, 2022. FINDINGS: Single living intrauterine in vertex presentation, previously breech. Anterior and partly fundal placenta. heart rate 126 beats per minute. Normal amniotic fluid. Single deepest pocket measurement 5.5 cm. Biparietal diameter 8.4 cm, 34 weeks 0 days, 48th percentile. Head circumference 30.2 cm, 33 weeks 3 days, 8th percentile. Abdominal circumference 30.0 cm, 33 weeks 4 days, 40th percentile. Humeral length 6.4 cm, 33 weeks 1 day, 21st percentile. The head to abdominal circumference ratio is 1.02 (0.95-1.11). The femur length to abdominal circumference ratio is 21.75 (20.0-24.0). Composite calculated ultrasound age 33 weeks 4 days with a sonographic due date of April 21, 2022. Appropriate growth and maturation in the interval. Estimated weight 2205 g which lies at the 28th percentile. IMPRESSION: 1. Single living intrauterine in vertex presentation previously breech. 2. Composite calculated ultrasound age 33 weeks 4 days with a sonographic due date of April 21, 2022. Appropriate growth and maturation in the interval. 3. Please note the head is suboptimally visualized and the measurements of the head may be erroneous given the presentation. Dictated by Darryn Boyd MD @ 03/07/2022 9:18:39 PM (Electronically Signed)
--- OUTSIDE RECORDS SUMMARY | 2022-03-07 15:00 | XMS_ITS | Encounter Summary ---
:1990 Author Organization [facility] Address [address] [place] [address] Care Team Providers Name Role Phone No Ref-Primary, Physician Primary Care Provider [phone] Reason for Visit Reason Comments Ultrasound L2- IVF Encounter Details Date Type Department Care Team Description 11/13/2021 PRE VISIT [facility] Argenis Baron, [place]zel asound (L2- IVF) Maternal Medicine [facility] [address] [place] [address] Social History Tobacco Use Types Packs/Day Years Used Date Smoking Tobacco: Never Assessed Sex Assigned at Date Recorded Not on file documented as of this encounter Plan of Treatment Not on filedocumented as of this encounter Visit Diagnoses Not on filedocumented in this encounter Care Teams Special Education Case Manager Relationship Specialty Start Date End Date No Ref-Primary, Physician PCP - General 11/16/18 documented as of this encounter
--- OUTSIDE RECORDS SUMMARY | 2022-03-07 15:00 | XMS_ITS | Encounter Summary ---
:1990 Author Organization [facility] Address [address] [place] [address] Care Team Providers Name Role Phone Unavailable [...] Procedure Name Priority Date/Time Associated Diagnosis Comme [facility] CHEST TWO VIEWS, STAT 12/28/2003 12:40 AM R esults for this FRONT/LAT CDT procedure are i n the results section. documented in this encounter Results CHEST X-RAY 2 VW (12/28/2003 12:40 AM CDT) Anatomical Region Laterality Modality Other Specimen (Source) Anatomical Collection Method Collection Time Re ceived Time Location / / Volume Laterality 12/28/2003 12:40 AM CDT Impressions 12/28/2003 10:41 AM CDT 2 VIEW CHEST - 12/28/2003 ?? CLINICAL HISTORY: Cough. ?? FINDINGS: Negative. Isidro Cruz MD GENERAL IMAGING documented in this encounter Visit Diagnoses Not on filedocumented in this encounter
--- OUTSIDE RECORDS SUMMARY | 2022-03-07 15:00 | XMS_ITS | Encounter Summary ---
:1990 Author Organization [facility] Address [address] [place] [address] Care Team Providers Name Role Phone No Ref-Primary, Physician Primary Care Provider [phone] Encounter Details Date Type Department Care Team Description 11/16/2018 Travel Social History Tobacco Use Types Packs/Day Years Used Date Smoking Tobacco: Never Assessed Sex Assigned at Date Recorded Not on file documented as of this encounter Plan of Treatment Not on filedocumented as of this encounter Visit Diagnoses Not on filedocumented in this encounter Care Teams Instrumentation And Controls Technician Relationship Specialty Start Date End Date No Ref-Primary, Physician PCP - General 11/16/18 documented as of this encounter
--- OUTSIDE RECORDS SUMMARY | 2022-03-07 15:00 | XMS_ITS | Encounter Summary ---
:1990 Author Organization [facility] Address [address] [address] Care Team Providers Name Role Phone Brisa Smith PA-C Primary Care Provider Encounter Details Date Type Department Care Team Description 08/15/2003 PN Conversion Only [facility] [place], [address] [facility] [place] [address] [address] [facility] [phone] [place] [address] (Wo rk) Social History Tobacco Use Types Packs/Day Years Used Date Smoking Tobacco: Never Assessed Sex Assigned at Date Recorded Not on file documented as of this encounter Progress Notes Veronique Clemons MD - 08/15/2003 12:01 AM CDT Progress Notes signed by Veronique Clemons MD at 12/17/03 1025 Author: Veronique Clemons MD Service: (none) Author Type: Physician Filed: 08/16/10 5556 Note Time: 08/15/03 0001 Status: Signed Drilling Plant Operator: Veronique Clemons MD (Physician) NAME: MINO CLEMENTE MR: [id number] ACCT: [id number] VISIT: [id number] DICTATING CLINICIAN: VERONIQUE CLEMONS MD JOB: [id number] CLINIC PROGRESS NOTE DATE OF VISIT: 08/15/2003 [...] X-ray of her lower leg was negative. [id number] C: 08/17/03 09:01 DOCUMENT: [id number] Phone Note, Clinician - 08/14/2003 12:01 AM CDT Phone Note filed by Clinician Phone Note at 08/14/10 1359 Author: Clinician Phone Note Service: (none) Author Type: Resource Filed: 08/14/10 1356 Note Time: 08/14/03 0001 Status: Signed Drilling Plant Operator: Clinician Phone Note (Resource) - REFERRED PATIENT TO EMERGENCY ROOM * HOME PHONE:[phone] * SUBJECTIVE: PATIENT COMPLAINS OF... Limb and/or [...] MISC COMMENTS... Mom will take pt. to [facility] in [place]. CALL BY GHISLAINE THOMPSON RN 08/14/2003 08:14PM [phone] ADDENDUM: Roxanne Flores MD - 08/10/2003 12:01 AM CDT Progress Notes signed by Roxanne Flores MD at 02/07/04 1052 Author: Roxanne Flores MD Service: (none) Author Type: Physician Filed: 08/16/10 2248 Note Time: 08/10/032229 Status: Signed Drilling Plant Operator: Roxanne Flores MD (Physician) NAME: MINO CLEMENTE MR: [id number] ACCT: [id number] VISIT: [id number] DICTATING CLINICIAN: ROXANNE FLORES MD JOB: [id number] CLINIC PROGRESS NOTE DATE OF VISIT: 08/10/2003 [...] ordered and read by me looks normal. [id number] C: 08/10/03 20:16 DOCUMENT: [id number] Rahat Mix PA-C - 06/30/2003 12:01 AM CST Progress Notes signed by Rahat Mix PA-C at 07/01/03 0901 Author: Rahat Mix PA-C Service: (none) Author Type: Physician Cap Cutter Filed: 08/16/10 2205 Note Time: 06/30/03 0001 Status: Signed Drilling Plant Operator: Rahat Mix PA-C (Physician Cap Cutter) NAME: MINO CLEMENTE MR: [id number] ACCT: [id number] VISIT: [id number] DICTATING CLINICIAN: SEAMUS MENDIETA JOB: [id number] CLINIC PROGRESS NOTE DATE OF VISIT: 06/30/2003 [...] little low at 4.1, hemoglobin normal, 14.9. [id number] C: 07/01/03 00:36 DOCUMENT: [id number] BLOCKER Phone Note, Clinician - 08/18/2002 12:01 AM CDT Phone Note filed by Clinician Phone Note at 08/14/101107 Author: Clinician Phone Note Service: (none) Author Type: Resource Filed: 08/14/10 1108 Note Time: 08/18/02 0001 Status: Signed Drilling Plant Operator: Clinician Phone Note (Resource) TO: LILLIAN HARKINS FROM: JOANN GONZALEZ RN [phone] * PROVIDER MESSAGE: TOMEKA * 08/18/02 01:07PM * *WITHIN 2 HOURS * MESSAGE: Pt's mother (Kalyani Clemente) * HOME PHONE:[phone] * calling: Pt's sister Zaria was seen * CONTACT PHONE:[phone] * by Lillian Harkins, MONCHO, MANAGER HUMAN CAPITAL * Eileen Clemente - pt's * yesterday [...] CALL BY JOANN GONZALEZ RN 08/18/2002 01:02PM [phone] ADDENDUM: <> 08/18/2002 01:35PM by STEVEN VELEZ: Lillian Gaspar CNP advised to keep appointment. Lillian Harkins APRN, CNP - 08/18/2002 12:01 AM CDT Progress Notes signed by Lillian Harkins APRN, CNP at 08/24/02 0803 Author: JOVANNA Gagnon Service: (none) Author Type: Nurse Practitioner Filed: 08/16/10 1438 Note Time: 08/18/02 0001 Status: Signed Drilling Plant Operator: JOVANNA Gagnon (Nurse Practitioner) NAME: MINO CLEMENTE MR: [id number] ACCT: [id number] VISIT: [id number] DICTATING CLINICIAN: JOVANNA GAGNON JOB: [id number] CLINIC PROGRESS NOTE DATE OF VISIT: 08/18/2002 [...] clear for two consecutive mornings. TT: CT: [id number] C: 08/20/02 10:47 DOCUMENT: [id number] Lillian Harkins APRN, CNP - 08/17/2002 12:01 AM CDT Progress Notes signed by Lillian Harkins APRN, CNP at 08/24/02 0802 Author: JOVANNA Gagnon Service: (none) Author Type: Nurse Practitioner Filed: 08/16/10 1436 Note Time: 08/17/02 0001 Status: Signed Drilling Plant Operator: JOVANNA Gagnon (Nurse Practitioner) NAME: MINO CLEMENTE MR: [id number] ACCT: [id number] VISIT: [id number] DICTATING CLINICIAN: JOVANNA GAGNON JOB: [id number] CLINIC PROGRESS NOTE DATE OF VISIT: 08/17/2002 [...] observation and follow up p.r.n. TT: CT: [id number] C: 08/18/02 10:36 DOCUMENT: [id number] Phone Note, Clinician - 06/30/2002 12:01 AM CST Phone Note filed by Clinician Phone Note at 08/14/10 1047 Author: Clinician Phone Note Service: (none) Author Type: Resource Filed: 08/14/10 1047 Note Time: 06/30/02 0001 Status: Signed Drilling Plant Operator: Clinician Phone Note (Resource) TO: RANJITH VALENZUELA FROM: FAZAL MORA RN [phone] * PROVIDER MESSAGE: ROUTINE * 06/30/02 12:23PM * *WITHIN 4 HOURS * MESSAGE: Patient was seen by * HOME PHONE:[phone] * [place] this morning for right * CONTACT PHONE:[phone] * ankle sprain. Per mother, was * Mom (Jyoti) if questions * advised to limit physical activity for 7-10 days, with minimal weight bearing. In order for her to be excused from phy-ed, the school is requiring note from . Please write note and fax to [facility] at [phone]. Attn: Jeanette. Aware that Dr. Valenzuela was [...] CALL BY FAZAL MORA RN 06/30/2002 12:20PM [phone] ADDENDUM: <> 06/30/2002 04:58PM by MAJO MENENDEZ LPN: Note written by Dr Izquierdo regarding physical activity and faxed to school per moms request. Ranjith Gan - 06/30/2002 12:01 AM CST Progress Notes signed by Ranjith Valenzuela MD at 07/23/02 0904 Author: Ranjith Valenzuela MD Service: (none) Author Type: Physician Filed: 08/16/10 1348 Note Time: 06/30/02 0001 Status: Signed Drilling Plant Operator: Ranjith Valenzuela MD (Physician) NAME: MINO CLEMENTE MR: [id number] ACCT: [id number] VISIT: [id number] DICTATING CLINICIAN: RANJITH VALENZUELA MD JOB: [id number] CLINIC PROGRESS NOTE DATE OF VISIT: 06/30/2002 [...] Meanwhile, begin some ankle exercises. TT: CT: [id number] C: 06/30/02 17:41 DOCUMENT: [id number] Lillian Harkins APRN, CNP - 10/15/2001 12:01 AM CDT Progress Notes signed by Lillian Harkins APRN, CNP at 10/28/01 1044 Author: JOVANNA Gagnon Service: (none) Author Type: Nurse Practitioner Filed: 08/16/10 0750 Note Time: 10/15/01 0001 Status: Signed Drilling Plant Operator: JOVANNA Gagnon (Nurse Practitioner) IMPRESSION: Healthy 11-year-old. SUBJECTIVE: Mino is in today for a 11-year check. She just finished sixth grade and did very well in school. She participates in soccer, track and volleyball. She also loves to run. Is not running on a regular basis at this time. She plays the [employer] in [employer]. She has no current concerns. She eats [...] Her next check at 14. TT: CT: [id number] C: DOCUMENT: [id number] Mary Stewart MD - 09/11/2001 12:01 AM CDT Progress Notes signed by Mary Stewart MD at 09/14/01 0817 Author: Mary Stewart MD Service: (none) Author Type: Physician Filed: 08/16/10 0704 Note Time: 09/11/01 0001 Status: Signed Drilling Plant Operator: Mary Stewart MD (Physician) IMPRESSION: Mild cellulitis near the left third toe. Probable athlete's foot. Wart on the right hand. SUBJECTIVE: Mino is a 11-year-old who comes in having had some dry cracking between her toes for a while. They have been doing some evqt-fmh-cqjaqyi treatment for athlete's foot over the last [...] infection, and they are going to try hsuk-ugs-vvzehyc treatment first such as Duofilm for the wart on her right palm. TT: CT: [id number] C: DOCUMENT: [id number] Jessica Kenney MD - 07/25/2001 12:01 AM CST Progress Notes signed by Jessica Kenney MD at 07/27/01 1514 Author: Jessica Kenney MD Service: (none) Author Type: Physician Filed: 08/16/10 0555 Note Time: 07/25/01 0001 Status: Signed Drilling Plant Operator: Jessica Kenney MD (Physician) IMPRESSION: OTITIS MEDIA, [...] returns. ASSESSMENT: N/A PLAN: N/A TT: CT: [id number] C: DOCUMENT: [id number] BLOCKER Mary Stewart MD - 05/22/2001 12:01 AM CST Progress Notes signed by Mary Stewart MD at 05/25/01 0825 Author: Mary Stewart MD Service: (none) Author Type: Physician Filed: 08/16/10 0424 Note Time: 05/22/01 0001 Status: Signed Drilling Plant Operator: Mary Stewart MD (Physician) IMPRESSION: Possible pneumonia. [...] or if other concerns arise. TT: CT: [facility]:[id number] C: DOCUMENT: [id number] BLOCKER Conversion, [facility] - 10/17/1999 12:01 AM CDT Progress Notes signed by at 12/02/00 6560 Author: [facility] Conversion Service: (none) Author Type: (none) Filed: 08/15/10 1738 Note Time: 10/17/99 0001 Status: Signed Drilling Plant Operator: Imr Conversion IMPRESSION: Resolving sprain/contusion to the [...] activities as tolerated. CC: SEGUNDO TAPIA MD ABK:[id number] C: DOCUMENT: [id number] SCHEDULED RESOURCE: DUSTIN MEZA / Electronically signed by Conversion, [facility] at 02/26/2016 7:33 PM CDT Conversion, [facility] - 10/10/1999 12:01 AM CDT Progress Notes signed by at 12/02/00 4354 Author: Rudy Strong Service: (none) Author Type: (none) Filed: 08/15/10 1731 Note Time: 10/10/992229 Status: Signed Drilling Plant Operator: Rudy Strong IMPRESSION: Sprain to the left [...] missing an occult fracture of the elbow. ABK:[id number] C: DOCUMENT: [id number] SCHEDULED RESOURCE: DUSTIN MEZA MD Electronically signed by Conversion, [facility] at 02/26/2016 7:33 PM CDT Conversion, [facility] - 10/05/1999 12:01 AM CDT Phone Note signed by at 10/05/99 7360 Author: Rudy Conversion Service: (none) Author Type: (none) Filed: 08/15/10 1726 Note Time: 10/05/99 0001 Status: Signed Drilling Plant Operator: Rudy Strong IMPRESSION: Elbow injury TO: MARY STEWART FROM: ORESTES KENDRICK RN [phone] * PROVIDER MESSAGE: ER * 10/05/1999 10:50PM * REFERRAL * MESSAGE: Sent to [facility] ER * HOME PHONE: [phone] * via car * CONTACT PHONE: [phone] * - REFERRED PATIENT TO EMERGENCY ROOM * Parents * SUBJECTIVE: CHIEF CONCERN... Dad states child fell tonight at [place], injured elbow. EMT at the [place] said didn't look right and recommended have seen tonight. Caller got this information from who is driving child back to [place]. Doesn't know if icing, elevating. Dad thinks should arrive [facility] in about 1 hr. ALLERGIES/SENSITIVITIES... Sulfa - rash, PCN - hives 10/05/99 CURRENT MEDICATIONS... None 10/05/99 PERTINENT PAST HISTORY... Healthy 10/05/99 WEIGHT: Not Available OMITTED ASKING ABOUT ; OMITTED ASKING ABOUT NURSING; ASSESSMENT: Elbow injury PLAN: DISPOSITION: EMERGENCY Call taken by ORESTES KENDRICK RN [phone] 10/05/1999 10:44 PM ADDENDUM: Conversion, [facility] - 04/08/1999 12:01 AM CST Progress Notes signed by at 12/02/00 3186 Author: Rudy Conversion Service: (none) Author Type: (none) Filed: 08/15/10 1434 Note Time: 04/08/99 0001 Status: Signed Drilling Plant Operator: Imr Conversion IMPRESSION: Viral syndrome, possible enterovirus versus another viral infection causes rash, stomach complaints and sore throat. SUBJECTIVE: Patient seen in [facility] on 04/08/99. The patient is [...] her to follow up right away. CC: [id number] C: DOCUMENT: [id number] SCHEDULED RESOURCE: JACKSON RIVERA MD Conversion, [facility] - 12/27/1998 12:01 AM CDT Phone Note signed by at 12/27/98 1003 Author: Rudy Conversion Service: (none) Author Type: (none) Filed: 08/15/10 6217 Note Time: 12/27/98 0001 Status: Signed Drilling Plant Operator: Rudy Strong IMPRESSION: Immunization inquiry SUBJECTIVE: PATIENT COMPLAINS OF... Mother, * HOME PHONE: [phone] * Eileen, is caller, states * CONTACT PHONE: [phone] * needs immunization hx for * Mother, [...] to transfer information to update records @ [facility]. Call taken by JADYN BERTRAND RN [phone] 12/27/1998 09:55 AM ADDENDUM: Electronically signed by Conversion, [facility] at 02/26/2016 7:35 PM CDT Conversion, [facility] - 12/11/1998 12:01 AM CDT Phone Note signed by at 12/11/98 0526 Author: Rudy Conversion Service: (none) Author Type: (none) Filed: 08/15/10 0170 Note Time: 12/11/98 0001 Status: Signed Drilling Plant Operator: Rudy Strong IMPRESSION: leg pain. SUBJECTIVE: PATIENT COMPLAINS OF... Mom * HOME PHONE: [phone] * reports mabel.c/o pain in her one [...] CALLBACK Call taken by RYAN CLEMENTE RN [phone] 12/11/1998 10:21 PM ADDENDUM: Conversion, [facility] - 1998 12:01 AM CDT Progress Notes signed by at 12/02/002050 Author: Rudy Conversion Service: (none) Author Type: (none) Filed: 08/15/10 1058 Note Time: 09/06/98 0001 Status: Signed Drilling Plant Operator: Rudy Strong IMPRESSION: Postoperative tonsillectomy and adenoidectomy doing reasonably [...] approximately that duration of time. CC: MARY STEWART MD APURVA:[id number] C: DOCUMENT: [id number] SCHEDULED RESOURCE: BENITA WORTHY MD Electronically signed by [facility], [facility] at 02/26/2016 7:36 PM CDT Conversion, [facility] - 09/03/1998 12:01 AM CDT Phone Note signed by at 09/03/98 0926 Author: [facility] Conversion Service: (none) Author Type: (none) Filed: 08/15/10 1054 Note Time: 09/03/98 0001 Status: Signed Drilling Plant Operator: Rudy Conversion IMPRESSION: Post tonsillectomy concerns SUBJECTIVE: PATIENT COMPLAINS OF... Mom * HOME PHONE: [phone] * calling with postop tonsillectomy day 6, [...] mom. Transferred to switchboard to have ENT implementation consultant call mom. ALLERGIES/SENSITIVITIES... Sulfa, PCN -- hives 09/03/98 CURRENT MEDICATIONS... Cephalexin 3 tsp bid day 6, [employer] and codeine 15 ml 09/03/98 PERTINENT PAST HISTORY... Healthy 09/03/98 ASSESSMENT: Post tonsillectomy concerns DISPOSITION: NO DISPOSITION GIVEN WEIGHT: 63 PLAN: Call taken by ANGELIA GARVEY, RN [phone] 09/03/1998 09:01 AM ADDENDUM: Mary Stewart MD - 08/25/1998 12:01 AM CDT Progress Notes signed by Mary Stewart MD at 09/06/98 1159 Author: Mary Stewart MD Service: (none) Author Type: Physician Filed: 08/15/10 1046 Note Time: 08/25/98 0001 Status: Signed Drilling Plant Operator: Mary Stewart MD (Physician) IMPRESSION: 8 1/2-year-old [...] she is okay for surgery for T&A. [facility]:[id number] C: DOCUMENT: [id number] Conversion, [facility] - 08/14/1998 12:01 AM CDT Phone Note signed by at 08/14/98 7993 Author: [facility] Conversion Service: (none) Author Type: (none) Filed: 08/15/10 1033 Note Time: 08/14/98 0001 Status: Signed Drilling Plant Operator: Imr Conversion IMPRESSION: Questions Re: Tonsilectomy Scheduled for 08/28/98. TO: MARY STEWART FROM: JANE AGUILAR LPN [phone] * PROVIDER MESSAGE: ROUTINE * 08/14/1998 01:30PM * *WITHIN 4 HOURS * MESSAGE: Mom is requesting a call * HOME PHONE: [phone] * back from MD today. She has * CONTACT PHONE: [phone] * questions about Tonsilectomy * Mrs. Clemente (mom) at * scheduled for 08/28/98. (States * home Today. * she can't be contacted tomorrow.) SUBJECTIVE: ALLERGIES/SENSITIVITIES... Sulfa, PCN -- hives 08/14/98 CURRENT MEDICATIONS... Cephalexin 3 tsp bid 08/14/98 PERTINENT PAST HISTORY... Healthy 08/14/98 WEIGHT: Not Available ASSESSMENT: Questions Re: Tonsilectomy Scheduled for 08/28/98. PLAN: DISPOSITION: NO DISPOSITION GIVEN Call taken by JANE AGUILAR LPN [phone] 08/14/1998 01:23 PM ADDENDUM: <> 08/15/1998 02:57PM by ORESTES MICHELE LPN [phone]: patient's mom Eileen Clemente calling back. Missed 's call 08/14. Contact # today [phone] until 5pm. Electronically signed by Conversion, [facility] at 02/26/2016 7:36 PM CDT Conversion, [facility] - 08/10/1998 12:01 AM CDT Phone Note signed by at 08/10/98 5381 Author: [facility] Conversion Service: (none) Author Type: (none) Filed: 08/15/10 1030 Note Time: 08/10/98 0001 Status: Signed Drilling Plant Operator: Rudy Conversion IMPRESSION: Strep pharyngitis (child)-nurse guidelines TO: MARY STEWART FROM: JESSICA ZARATE RN [phone] * PROVIDER MESSAGE: RETURN * 08/10/1998 04:56PM * CALL REQUESTED * MESSAGE: Call and advise. * HOME PHONE: [phone] * SUBJECTIVE: * CONTACT PHONE: [phone] * CHIEF CONCERN... Diagnosed * Deanne_mom * strep pharyngitis, no * PHARMACY: [phone] * significant improvement after * SKIVER OPERATOR-Eagen * 48 hours of medication, denies emergent [...] or concerns Call taken by JESSICA ZARATE, MONCHO [phone] 08/10/1998 04:41 PM ADDENDUM: <> 08/11/1998 11:39AM [...] 1024 Note Time: 08/06/98 0001 Status: Signed Drilling Plant Operator: Darryn Olson MD (Physician) IMPRESSION: Strep tonsillitis. [...] For severe problems, call 911. [id number] Conversion, [facility] - 07/17/1998 12:01 AM CST Phone Note signed by at 07/17/98 0941 Author: [facility] Conversion Service: (none) Author Type: (none) Filed: 08/15/10 1002 Note Time: 07/17/98 0001 Status: Signed Drilling Plant Operator: [facility] Conversion IMPRESSION: fyi TO: MARY STEWART FROM: DALY SCHULER RN [phone] * PROVIDER MESSAGE: FYI *NO * 07/17/1998 09:41AM * INPUT NECESSARY * MESSAGE: Gave normal lab result * HOME PHONE: [phone] * SUBJECTIVE: * CONTACT PHONE: [phone] * CHIEF CONCERN... Mom calling * eileen - no need to * saying child had a blood test * call * on 05-29 and she never got the result. Her WBC on 05-29 was normal at 6.3 Child is having her tonsils out on 08-28, so Mom wanted to check. ALLERGIES/SENSITIVITIES... Sulfa, PCN -- hives 06/20/98 CURRENT MEDICATIONS... none PERTINENT PAST HISTORY... Healthy 06/20/98 WEIGHT: Not Available ASSESSMENT: fyi PLAN: COMMENTS...message sent to primary DISPOSITION: HOME CARE RECOMMENDED THE FOLLOWING... Call taken by DALY SCHULER RN [phone] 07/17/1998 09:39 AM ADDENDUM: Electronically signed by Conversion, [facility] at 02/26/2016 7:36 PM CDT Lillian Harkins, TILE GRADER, MANAGER HUMAN [employer]ITAL - 06/21/1998 12:01 AM CST Progress Notes signed by Lillian Harkins APRN, CNP at 07/12/98 112 Author: JOVANNA Gagnon Service: (none) Author Type: Nurse Practitioner Filed: 08/15/10 0932 Note Time: 06/21/98 0001 Status: Signed Drilling Plant Operator: JOVANNA Gagnon (Nurse Practitioner) IMPRESSION: Pharyngitis. SUBJECTIVE: [...] regarding her continued recurrence of pharyngitis. lrs BLOCKER Conversion, Imr - 06/20/1998 12:01 AM CST Phone Note signed by at 06/20/98 4827 Author: Rudy Conversion Service: (none) Author Type: (none) Filed: 08/15/10 0931 Note Time: 06/20/98 0001 Status: Signed Drilling Plant Operator: Rudy Strong IMPRESSION: Strep pharyngitis -(child)- nurse guidelines. - TREATING PROVIDER: LILLIAN TORIN * HOME PHONE: [phone] * - Appointment made with LILLIAN TORIN [...] concerns Call taken by FELIPE BLAIR RN [phone] 06/20/1998 10:17 PM ADDENDUM: Conversion, [facility] - 06/09/1998 12:01 AM CST Phone Note signed by Lucretia Barbosa MD at 06/16/98 0903 Author: Rudy Conversion Service: (none) Author Type: (none) Filed: 08/15/10 0919 Note Time: 06/09/98 0001 Status: Signed Drilling Plant Operator: Imr Conversion IMPRESSION: Strep pharyngitis -(child)- nurse guidelines. - PHARMACY: [phone] Zenaida SUBJECTIVE: * HOME PHONE:[phone] * PATIENT COMPLAINS OF... Sore throat, positive culture for strep pharyngitis. mother calling, states she had received a call from Dr. Cooper's office that her throat culture was positive for strep. She was told to call [phone] for treatment. Positive strep verified per [facility]. ALLERGIES/SENSITIVITIES... Sulfa 06/09/98 CURRENT MEDICATIONS... None 06/09/98 PERTINENT PAST HISTORY... Healthy 06/09/98 ASSESSMENT: Strep pharyngitis -(child)- nurse guidelines. DISPOSITION: HOME CARE WEIGHT: 63 PLAN: STANDING ORDERS IMPLEMENTED... Pen VK:500 mgm bid x 10 days (o) if > or = 50 lbs. RECOMMENDED THE FOLLOWING... Referenced guideline Strep pharyngitis -(child)- nurse guidelines.. Patient to be treated per [facility] standing order. -Give acetaminophen or ibuprofen as [...] CALL BY ASHLEY TAVARES RN 06/09/1998 11:14AM [phone] ADDENDUM: <> 06/10/1998 08:32PM by FELIPE POTTER RN [phone]: Mom calling back, aprox. 1 hr. ago [...] do? Ref. Hives Guideline, called Dr. Barbosa, implementation consultant for Dr. Stewart, her usual provider. Dr. Barbosa ordered Erythromcyin 200mg. /5ml., 1 1/4tsp. BID x10 days. Pt. can start taking the medication tonight. If rash persists or changes she is to call back. Called mom back, gave her the information. Script called into [facility][phone] at 8:50pm. If further questions mom will call back. Electronically signed by Conversion, [facility] at 02/26/2016 7:36 PM CDT Conversion, [facility] - 06/07/1998 12:01 AM CST Phone Note signed by at 06/07/981999 Author: [facility] Conversion Service: (none) Author Type: (none) Filed: 08/15/10 0917 Note Time: 06/07/982229 Status: Signed Drilling Plant Operator: Rudy Conversion IMPRESSION: Sore Throat-(Child)-Nurse Guidelines TO: MARY STEWART FROM: LITZY DAVID R.N. [phone] * PROVIDER MESSAGE: ENRIQUE *NO * 06/07/1998 08:00PM * INPUT NECESSARY * MESSAGE: Strep screen in am at * HOME PHONE: [phone] * 920am. * CONTACT PHONE: [phone] * SUBJECTIVE: * mom * CHIEF CONCERN... [...] concerns Call taken by LITZY DAVID R.N. [phone] 06/07/1998 07:53 PM ADDENDUM: Conversion, [facility] - 05/29/1998 12:01 AM CST Progress Notes signed by at 12/02/002038 Author: Rudy Conversion Service: (none) Author Type: (none) Filed: 08/15/10 0905 Note Time: 05/29/98 0001 Status: Signed Drilling Plant Operator: Rudy Conversion IMPRESSION: Recurrent tonsillitis with moderate [...] M.D. EM174 SCHEDULED RESOURCE: BENITA WORTHY MD Electronically signed by Conversion, [facility] at 02/26/2016 7:36 PM CDT Conversion, [facility] - 05/03/1998 12:01 AM CST Phone Note signed by at 05/03/98 0952 Author: Rudy Conversion Service: (none) Author Type: (none) Filed: 08/15/10 0837 Note Time: 05/03/982229 Status: Signed Drilling Plant Operator: Rudy Strong IMPRESSION: request call-reading disability TO: MARY STEWART FROM: ORESTES MICHELE LPN [phone] * PROVIDER MESSAGE: ROUTINE * 05/03/1998 09:52AM * *WITHIN 4 HOURS * MESSAGE: request call * HOME PHONE: [phone] * SUBJECTIVE: * CONTACT PHONE: [phone] * CHIEF CONCERN... Patient's mom * Lay-mom [...] GIVEN Call taken by ORESTES MICHELE LPN [phone] 05/03/1998 09:49 AM ADDENDUM: <> 05/03/1998 01:34PM by GRISELDA GIBSON LPN: TALKED WITH MOM THIS AM. PER DR STEWART APPOINTMENT SHOULD BE MADE WITH NIMISHA AT [facility]. Electronically signed by Conversion, [facility] at 02/26/2016 7:37 PM CDT Conversion, [facility] - 04/26/1998 12:01 AM CST Phone Note signed by at 04/26/98 0909 Author: Rudy Conversion Service: (none) Author Type: (none) Filed: 08/15/10 0830 Note Time: 04/26/98 0001 Status: Signed Drilling Plant Operator: Rudy Conversion IMPRESSION: Sore Throat-(Child)-Nurse Guidelines TO: MARY STEWART FROM: ISABEL KEVIN, RN [phone] * PROVIDER MESSAGE: ROUTINE * 04/26/1998 09:09AM * *WITHIN 4 HOURS * MESSAGE: Call mother to determine * HOME PHONE: [phone] * treatment plan. (Could a doctor * CONTACT PHONE: [phone] * take care of this this morning? * Eileen, mother * Soria not in until afternoon.) * PHARMACY: [phone] * SUBJECTIVE: * [place] * CHIEF CONCERN... Sore throat > * [address] * 24 hours without cough or cold, Mother calling. Child c/o sore throat, headache, and stomachache that started yesterday late afternoon. Fever 101. Finished antibiotic for strep throat 10 days ago( 04/15).Mother doesn't remember name of antibioitc child was given; Penicillin? ; -Persistent infection/treatment failure ALLERGIES/SENSITIVITIES... Sulfa 04/26/98 CURRENT MEDICATIONS... Tylenol prn [...] concerns Call taken by ISABEL KEVIN RN [phone] 04/26/1998 08:52 AM ADDENDUM: <> 04/26/1998 10:46AM by GRISELDA GIBSON LPN: APPOINTMENT MADE. Mary Stewart MD - 04/26/1998 12:01 AM CST Progress Notes signed by Mary Stewart MD at 05/05/98 1121 Author: Mary Stewart MD Service: (none) Author Type: Physician Filed: 08/15/10829 Note Time: 04/26/98 0001 Status: Signed Drilling Plant Operator: Mary Stewart MD (Physician) IMPRESSION: Pharyngitis. SUBJECTIVE: [...] it is probably more activity related. nbb BLOCKER Conversion, Imr - 04/06/1998 12:01 AM CST Phone Note signed by Mary Stewart MD at 04/10/98 0992 Author: Imr Conversion Service: (none) Author Type: (none) Filed: 08/15/10 0810 Note Time: 04/06/98 0001 Status: Signed Drilling Plant Operator: Imr Conversion IMPRESSION: Sore Throat-(Child)-Nurse Guidelines - TREATING PROVIDER: MARY STEWART - PHARMACY: [phone] [facility] * HOME PHONE: [phone] * SUBJECTIVE: PATIENT COMPLAINS OF... Sore throat, [...] concerns Call taken by MICHELINE LOCKETT RN [phone] 04/06/1998 07:36 PM ADDENDUM: Conversion, [facility] - 04/06/1998 12:01 AM CST Phone Note signed by at 04/06/98 8008 Author: Rudy Conversion Service: (none) Author Type: (none) Filed: 08/15/10 0810 Note Time: 04/06/98 0001 Status: Signed Drilling Plant Operator: Rudy Strong IMPRESSION: Positive Strep SUBJECTIVE: ALLERGIES/SENSITIVITIES... * HOME PHONE: [phone] * Sulfa (hives) 04/05/98 * CONTACT PHONE: [phone] * CURRENT MEDICATIONS... Tylenol prn 04/05/98 PERTINENT PAST HISTORY... Healthy 04/05/98 ASSESSMENT: Positive Strep DISPOSITION: NO DISPOSITION GIVEN PLAN[place] [facility] [place] Blythe LCT calling to say Pt. has Positive strep. Unable to reach. Will need to call RX. Need Pharmacy #. Message was left on home machine. Call taken by COLBY MENDOZA LPN [phone] 04/06/1998 02:56 PM ADDENDUM: <> 04/06/1998 08:00PM by MICHELINE LOCKETT, RN [phone]: Mom calling back, child treated per sore throat guideline Conversion, [facility] - 04/05/1998 12:01 AM CST Phone Note signed by at 04/05/98 0917 Author: Rudy Conversion Service: (none) Author Type: (none) Filed: 08/15/10 0809 Note Time: 04/05/98 0001 Status: Signed Drilling Plant Operator: Rudy Conversion IMPRESSION: Sore Throat-(Child)-Nurse Guidelines - TREATING PROVIDER: FAMILY PRACTICE NURSE * HOME PHONE: [phone] * - Appointment made with FAMILY * CONTACT PHONE: [phone] * PRACTICE NURSE Apr 05 1998 10:10AM * Mrs Clemente (mom) * - PHARMACY: [phone] [place] [address] SUBJECTIVE: PATIENT COMPLAINS OF... Sore [...] concerns Call taken by WOLF BUENO RN [phone] 04/05/1998 09:08 AM ADDENDUM: Conversion, [facility] - 03/27/1998 12:01 AM CST Phone Note signed by at 03/27/98 9026 Author: [facility] Conversion Service: (none) Author Type: (none) Filed: 08/15/10 0759 Note Time: 03/27/98 0001 Status: Signed Drilling Plant Operator: Rudy Strong IMPRESSION: Lab Test Question TO: MARY STEWART FROM: FELIPE GALLO RN [phone] * PROVIDER MESSAGE: ROUTINE * 03/27/1998 02:16PM * *WITHIN 4 HOURS * MESSAGE: Mom wondering if she * HOME PHONE: [phone] * should postpone lab testing? Pt. * CONTACT PHONE: [phone] * has cough and cold sx., no [...] GIVEN Call taken by FELIPE GALLO RN [phone] 03/27/1998 02:09 PM ADDENDUM: Electronically signed by Conversion, [facility] at 02/26/2016 7:37 PM CDT Mary Stewart MD - 03/01/1998 12:01 AM CST Progress Notes signed by Mary Stewart MD at 03/10/9812 Author: Mary Stewart MD Service: (none) Author Type: Physician Filed: 08/15/10 0734 Note Time: 03/01/982229 Status: Signed Drilling Plant Operator: Mary Stewart MD (Physician) IMPRESSION: CHART NOTE [...] to anything abnormal with the blood. The plate grainer apprentice just recommended in a month repeating her blood count to see that the white count came up. nbb BLOCKER Mary Stewart MD - 02/27/1998 12:01 AM CST Progress Notes signed by Mary Stewart MD at 03/06/9847 Author: Mary Stewart MD Service: (none) Author Type: Physician Filed: 08/15/10 0731 Note Time: 02/27/982229 Status: Signed Drilling Plant Operator: Mary Stewart MD (Physician) IMPRESSION: Healthy 8-1/2-year-old [...] should be in about three years. nbb BLOCKER Conversion, [facility] - 11/15/1997 12:01 AM CDT Phone Note signed by at 11/15/97 0814 Author: [facility] Conversion Service: (none) Author Type: (none) Filed: 08/15/10 0550 Note Time: 11/15/97 0001 Status: Signed Drilling Plant Operator: [facility] Conversion IMPRESSION: Fever (4-17 years) nurse guideline SUBJECTIVE: PATIENT COMPLAINS OF... Fever, * HOME PHONE: [phone] * -Disrupted or restless sleep Awakened this [...] symptoms that are bothersome or not improving [facility]... reviewed various guidelines with Dad he will reevaluate when she awakens and call again as needed Call taken by DOROTA GRIFFITH 11/15/1997 08:06 AM ADDENDUM: Mary Stewart MD - 08/31/1997 12:01 AM CDT Progress Notes signed by Mary Stewart MD at 09/13/97 1156 Author: Mary Stewart MD Service: (none) Author Type: Physician Filed: 08/15/10 0442 Note Time: 08/31/97 0001 Status: Signed Drilling Plant Operator: Mary Stewart MD (Physician) IMPRESSION: Pharyngitis. SUBJECTIVE: Mino is an xcpnp-wniq-slp who comes in having started with a sore throat and stomachache yesterday. She has had no temp, no cold symptoms, and no headache. ALLERGIES: SULFA. OBJECTIVE: Wt: 59 lb. In general, she is an alert exixl-eusq-huc in no acute distress. TMs were clear. [...] other concerns or questions arise. beh Conversion, [facility] - 08/30/1997 12:01 AM CDT Phone Note signed by at 08/30/972041 Author: [facility] Conversion Service: (none) Author Type: (none) Filed: 08/15/10 0441 Note Time: 08/30/97 0001 Status: Signed Drilling Plant Operator: Rudy Conversion IMPRESSION: Sore Throat-(Child)-Nurse Guidelines - TREATING PROVIDER: MARY STEWART - Appointment made with MARY * HOME PHONE: [phone] * PROSPER Aug 31 1997 10:40AM SUBJECTIVE: [...] questions or concerns Call taken by JOEL GARVEY [phone] 08/30/1997 08:35 PM ADDENDUM: Electronically signed by [facility] at 02/26/2016 7:38 PM CDT Jolie Cazares MD - 06/26/1997 12:01 AM CST Progress Notes signed by at 02/27/022017 Author: Jolie Cazares MD Service: (none) Author Type: (none) Filed: 08/15/10 0340 Note Time: 06/26/97 0001 Status: Signed Drilling Plant Operator: Rudy Conversion IMPRESSION: No dictation required. Exudative pharyngitis, persistent despite amoxicillin. Bicillin CR 600,000 units IM. SUBJECTIVE: N/A OBJECTIVE: N/A ASSESSMENT: N/A PLAN: N/A [facility] Electronically signed by [facility], [facility] at 02/26/2016 7:38 PM CDT Conversion, [facility] - 02/08/1997 12:01 AM CDT Phone Note signed by at 02/08/97 3590 Author: Rudy Conversion Service: (none) Author Type: (none) Filed: 08/15/10 0135 Note Time: 02/08/97 0001 Status: Signed Drilling Plant Operator: Rudy Strong IMPRESSION: Sore Throat-(Child)-Nurse Guidelines - PHARMACY: [phone] [facility] SUBJECTIVE: * HOME PHONE: [phone] * PATIENT COMPLAINS OF... Sore throat, positive [...] -Any other questions or concerns MISC COMMENTS... Script called in at 6:23pm.. Call taken by FELIPE POTTER RN [phone] 02/08/1997 06:16 PM ADDENDUM: YT Ranjith Valenzuela - 02/07/1997 12:01 AM CDT Progress Notes signed by Ranjith Valenzuela MD at 02/21/97 0843 Author: Ranjith Valenzuela MD Service: (none) Author Type: Physician Filed: 08/15/10 0133 Note Time: 02/07/97 0001 Status: Signed Drilling Plant Operator: Ranjith Valenzuela MD (Physician) IMPRESSION: Viral syndrome. [...] improve with normal cough syrup. nbb Conversion, [facility] - 01/31/1997 12:01 AM CDT Phone Note signed by at 01/31/97 5883 Author: Imr Conversion Service: (none) Author Type: (none) Filed: 08/15/10 0127 Note Time: 01/31/97 0001 Status: Signed Drilling Plant Operator: Imr Conversion IMPRESSION: Sting,bee/insect-(child)-nurse guidelines SUBJECTIVE: PATIENT COMPLAINS OF... * HOME PHONE: [phone] * Bee/insect sting, -Mild redness, tenderness at [...] CALLBACK Call taken by ASHLEY CARDONA RN [phone] 01/31/1997 05:09 PM ADDENDUM: Conversion, [facility] - 12/21/1996 12:01 AM CDT Phone Note signed by at 12/21/96 0610 Author: Rudy Conversion Service: (none) Author Type: (none) Filed: 08/15/10 0054 Note Time: 12/21/96 0001 Status: Signed Drilling Plant Operator: Rudy Strong IMPRESSION: Fever (4-17 years) nurse guideline SUBJECTIVE: PATIENT COMPLAINS OF... Fever, * HOME PHONE: [phone] * 101.8; -VURI symptoms < 72 * CONTACT PHONE: [phone] * hours also has headache and * [...] signed by Brisa Smith PA-C at 02/25/97 0758 Author: Brisa Smith PA-C Service: (none) Author Type: Physician Cap Cutter Filed: 08/14/10 2238 Note Time: 08/22/96 0001 Status: Signed Drilling Plant Operator: Brisa Smith PA-C (Physician Cap Cutter) IMPRESSION: Pharyngitis, most likely strep. SUBJECTIVE: Mino [...] Follow up if symptoms do not improve. [facility] BLOCKER Conversion, [facility] - 08/21/1996 12:01 AM CDT Phone Note signed by at 08/21/96 2334 Author: Rudy Conversion Service: (none) Author Type: (none) Filed: 08/14/10 3215 Note Time: 08/21/96 0001 Status: Signed Drilling Plant Operator: Rudy Conversion IMPRESSION: Fever (4-17 years) nurse guideline SUBJECTIVE: PATIENT COMPLAINS OF... Fever, * HOME PHONE: [phone] * Child woke with fever of * CONTACT PHONE: [phone] * 102PO this morning,08/21/96. * Mom * [...] INFORMED PATIENT TO CALLBACK IF... sx. worsen. [facility] [place]... Lost all of note due to some error and had to reenter from memory. Call taken by GEORGE MICHELE RN [phone] 08/21/1996 11:58 AM ADDENDUM: <> 08/22/1996 01:35PM by FAZAL BERGERON RN: leg pain gone, complained of sore throat this morning, vomited once, fever continues up to 103, mom will bring child to for strep test Conversion, [facility] - 08/16/1996 12:01 AM CDT Phone Note signed by at 08/16/96 0021 Author: Rudy Conversion Service: (none) Author Type: (none) Filed: 08/14/10 2319 Note Time: 08/16/96 0001 Status: Signed Drilling Plant Operator: Rudy Strong IMPRESSION: Nose Trauma SUBJECTIVE: PATIENT COMPLAINS OF... Aprox. * HOME PHONE: [phone] * 1/2 hour ago child was in [...] RECOMMENDED THE FOLLOWING... Ref. Nosebleed Guideline and [facility] HealthBook, nose trauma. Discussed sx. of head trauma to look for and if sx. worsen or change to be seen. Mom will call back if needed, prefers no call back from us. Call taken by FELIPE POTTER RN [phone] 08/16/1996 06:30 PM ADDENDUM: Conversion, [facility] - 07/08/1996 12:01 AM CST Phone Note signed by at 07/08/96 0129 Author: Rudy Conversion Service: (none) Author Type: (none) Filed: 08/14/10 2066 Note Time: 07/08/96 0001 Status: Signed Drilling Plant Operator: Rudy Strong IMPRESSION: Fever, Vague tummy ache c/o. SUBJECTIVE: PATIENT COMPLAINS OF... Negative * HOME PHONE:[phone] * strep screen result today. Child has [...] CALL BY FELIPE PIERCE RN 07/08/1996 02:06PM [phone] ADDENDUM: Rivera Izquierdo MD - 06/10/1996 12:01 AM CST Progress Notes signed by Rivera Izquierdo MD at 06/15/96 0944 Author: Rivera Izquierdo MD Service: (none) Author Type: Physician Filed: 08/14/102229 Note Time: 06/10/96 0001 Status: Signed Drilling Plant Operator: Rivera Izquierdo MD (Physician) IMPRESSION: Cough and [...] t.i.d. x ten days. Recheck p.r.n. bmn BLOCKER Tae [facility] - 04/27/1996 12:01 AM CST Phone Note signed by at 04/27/96 1011 Author: Rudy Strong Service: (none) Author Type: (none) Filed: 08/14/102199 Note Time: 04/27/96 0001 Status: Signed Drilling Plant Operator: Rudy Strong IMPRESSION: Sore Throat-(Child)-Nurse Guidelines - APPOINTMENT MADE WITH PEDIATRIC NURSE 04/27/1996 01:30PM * HOME PHONE:[phone] * SUBJECTIVE: PATIENT COMPLAINS OF... Sore throat,> [...] CALL BY FELIPE PIERCE RN 04/27/1996 09:59AM [phone] ADDENDUM: Mary Farmer MD - 03/09/1996 12:01 AM CST Progress Notes signed by Mary Stewart MD at 03/18/96 0821 Author: Mary Stewart MD Service: (none) Author Type: Physician Filed: 08/14/102128 Note Time: 03/09/96 0001 Status: Signed Drilling Plant Operator: Mary Stewart MD (Physician) IMPRESSION: Right otitis [...] any other concerns or questions arise. [id number]-43 BLOCKER Conversion, [facility] - 03/08/1996 12:01 AM CST Phone Note signed by at 03/08/96 7172 Author: Rudy Conversion Service: (none) Author Type: (none) Filed: 08/14/10 4169 Note Time: 03/08/96 0001 Status: Signed Drilling Plant Operator: Rudy Conversion IMPRESSION: Sore Throat-(Child)-Nurse Guidelines - REFERRED PATIENT TO URGENT CARE AT [facility] * HOME PHONE: [phone] * SUBJECTIVE: PATIENT COMPLAINS OF... Sore throat [...] concerns; Call taken by ROGER DUNHAM RN [phone] 03/08/1996 05:52 PM ADDENDUM: Electronically signed by [facility] at 02/26/2016 7:41 PM CDT Conversion, [facility] - 10/20/1995 12:01 AM CDT Phone Note signed by at 10/20/95 2034 Author: Rudy Strong Service: (none) Author Type: (none) Filed: 08/14/102004 Note Time: 10/20/95 0001 Status: Signed Drilling Plant Operator: Rudy Strong IMPRESSION: giardia in house - REFERRED PATIENT TO URGENT CARE AT [facility] * HOME PHONE:[phone] * SUBJECTIVE: PATIENT COMPLAINS OF... mom calling. [...] CALL BY JESSICA SINHA RN 10/20/1995 06:12PM [phone] ADDENDUM: Darryn Olson MD - 07/12/1995 12:01 AM CST Progress Notes signed by Darryn Olson MD at 02/27/022017 Author: Darryn Olson MD Service: (none) Author Type: (none) Filed: 08/14/10 467 Note Time: 07/12/95 0001 Status: Signed Drilling Plant Operator: Darryn Olson MD (Physician) IMPRESSION: No dictation required. Upper respiratory infection and pharyngitis. SUBJECTIVE: N/A OBJECTIVE: N/A ASSESSMENT: N/A PLAN: N/A [id number] Mary Stewart MD - 06/24/1995 12:01 AM CST Progress Notes signed by Mary Stewart MD at 07/01/95 9326 Author: Mary Stewart MD Service: (none) Author Type: Physician Filed: 08/14/10 719 Note Time: 06/24/95 0001 Status: Signed Drilling Plant Operator: Mary Stewart MD (Physician) IMPRESSION: Right otitis media and possible strep pharyngitis. SUBJECTIVE: Mnio is a nljf-usdd-rkx who comes in having had a sore throat today and a stomachache. She has also complained of her finger tips hurting. She has had no cold symptoms. No temp. Apparently, mom had a high temp recently with achiness and sore throat, and her brother has had some stomachache and elevated temp. ALLERGIES: SULFA. OBJECTIVE: Wt: 50 lb. In general, she is an alert ziph-mqlk-eys in no acute distress. She does have [...] throat culture on her brother, Xander. beh BLOCKER Darryn Olson MD - 03/01/1995 12:01 AM CST Progress Notes signed by Darryn Olson MD at 06/20/95 0748 Author: Darryn Olson MD Service: (none) Author Type: (none) Filed: 08/14/10 1801 Note Time: 03/01/95 0001 Status: Signed Drilling Plant Operator: Darryn Olson MD (Physician) IMPRESSION: No dictation required. SUBJECTIVE: N/A OBJECTIVE: N/A ASSESSMENT: N/A PLAN: N/A Nikhil Eldridge MD - 12/19/1994 12:01 AM CDT Progress Notes signed by Nikhil Eldridge MD at 01/07/95 1311 Author: Nikhil Eldridge MD Service: (none) Author Type: Physician Filed: 08/14/10 1737 Note Time: 12/19/94 0001 Status: Signed Drilling Plant Operator: Nikhil Eldridge MD (Physician) IMPRESSION: 1. Negative [...] signed by Mary Stewart MD at 09/25/94 4642 Author: Mary Stewart MD Service: (none) Author Type: Physician Filed: 08/14/10 1716 Note Time: 09/12/94 0001 Status: Signed Drilling Plant Operator: Mary Stewart MD (Physician) IMPRESSION: Healthy ymcv-tsyv-yqt. SUBJECTIVE: Mino is a wmbc-yqry-cox who comes in today. Really, mom has [...] eyes, and she passed Langstereo. ASSESSMENT: Healthy cxwo-kgkp-vaf. PLAN: Will go ahead with her DPT, [...] Service: (none) Author Type: Physician Filed: 08/14/10 5375 Note Time: 08/09/94 0001 Status: Signed Drilling Plant Operator: Violette Thomas MD (Physician) IMPRESSION: Vulvovaginitis. SUBJECTIVE: [...] Avoid Vantin in the future if possible. [place] that her rash was clearing at this [...] Service: (none) Author Type: Physician Filed: 08/14/10 6496 Note Time: 07/18/94 0001 Status: Signed Drilling Plant Operator: Rivera Izquierdo MD (Physician) IMPRESSION: Right otitis [...] we discussed getting her allergy skin-tested at [place] with an toe pounder. OBJECTIVE: On examination, WT: 46 1/2 pounds. Her right tympanic membrane is dull with air fluid level inferiorly and somewhat reddened. The remainder of the examination is unremarkable. Pharynx is unremarkable. ASSESSMENT: Right otitis. PLAN: Vantin 100 b.i.d. times ten days. Recheck p.r.n. if not improving. BLOCKER documented in this encounter Plan of Treatment [...] 9:00 AM Results for this LATERAL HIP LOAD BLOCKER procedure are i n the results section. BETA STREP RESP Routine 07/25/2001 1:09 PM Result s for this CULT LOAD BLOCKER procedure are i n the results section. XR ELBOW Routine 10/17/1999 8:50 AM Results f or this CDT procedure are i n the results section. STREP GROUP A Routine 04/08/1999 5:51 PM Results for this ANTIGEN TEST LOAD BLOCKER procedure are i n the results section. BETA STREP FOLLOWUP Routine 04/08/1999 5:51 PM Re sults for this LOAD BLOCKER procedure are i n the results section. STREP GROUP A Routine 08/06/1998 11:10 AM Results for this ANTIGEN TEST CDT procedure are i n the results section. STREP GROUP A Routine 06/08/1998 10:09 AM Results for this ANTIGEN TEST LOAD BLOCKER procedure are i n the results section. BETA STREP FOLLOWUP Routine 06/08/1998 10:09 AM R esults for this LOAD BLOCKER procedure are i n the results section. WBC, BLOOD Routine 05/29/1998 3:47 PM Results f or this LOAD BLOCKER procedure are i n the results section. BETA STREP RESP Routine 04/26/1998 3:23 PM Result s for this CULT LOAD BLOCKER procedure are i n the results section. STREP GROUP A Routine 04/05/1998 10:52 AM Results for this ANTIGEN TEST LOAD BLOCKER procedure are i n the results section. BETA STREP FOLLOWUP Routine 04/05/1998 10:52 AM R esults for this LOAD BLOCKER procedure are i n the results section. STREP GROUP A Routine 02/27/1998 10:38 AM Results for this ANTIGEN TEST LOAD BLOCKER procedure are i n the results section. BETA STREP FOLLOWUP Routine 02/27/1998 10:38 AM R esults for this LOAD BLOCKER procedure are i n the results section. MORPH FINAL REPORT Routine 02/27/1998 9:03 AM Res ults for this LOAD BLOCKER procedure are i n the results section. PLATELETS Routine 02/27/1998 9:03 AM Results f or this LOAD BLOCKER procedure are i n the results section. HEMOGLOBIN, BLOOD Routine 02/27/1998 9:03 AM Resu lts for this LOAD BLOCKER procedure are i n the results section. WBC, BLOOD Routine 02/27/1998 9:03 AM Results f or this LOAD BLOCKER procedure are i n the results section. [...] 4:46 PM Result s for this CULT LOAD BLOCKER procedure are i n the results section. BETA STREP RESP Routine 06/26/1997 12:09 PM Resul ts for this CULT LOAD BLOCKER procedure are i n the results section. STREP GROUP A Routine 05/11/1997 4:58 PM Results for this ANTIGEN TEST LOAD BLOCKER procedure are i n the results section. BETA STREP FOLLOWUP Routine 05/11/1997 4:58 PM Re sults for this LOAD BLOCKER procedure are i n the results section. [...] ??Negative examination of the right index finger. [id number] Dictating SABINA MENDES Radiologist Narrative 08/10/2003 10:01 AM CDT COMPARISON STUDY: ??None. CLINICAL HISTORY: ??12-year-old female w ith finger pain. Procedure Note Sabina Flanagan MD - 06/29/2016Formattin g of this note might be different from the original. COMPARISON STUDY: None. CLINICAL HISTORY: 12-year-old female wit h finger pain. IMPRESSION : Negative examination of the right inde x finger. [id number] Dictating SABINA MENDES Radiologist Roxanne Flores MD RAD GD XR Pelvis W Lt Lateral Hip (06/30/2003 9:00 AM LOAD BLOCKER) Anatomical Region Laterality Modality Pelvis, Hip Other Specimen (Source) Anatomical Location Collection Method / Collectio n Time Received Time / Laterality Volume Narrative 06/30/2003 9:00 AM LOAD BLOCKER There is no fracture or dislocation. ??There is no bone or soft tissue abnormality. ??The femoral head ossifica tion center have fused bilaterally. [id number]- [id number] Dictating RIVERA LOMBARDO RADIOLOGIST Procedure Note Rivera Guadalupe - 07/04/2016Formattin g of this note might be different from the original. There is no fracture or dislocation. The re is no bone or soft tissue abnormality. The femoral head ossificati on center have fused bilaterally. MI-01- [id number] Dictating RIVERA LOMBARDO RADIOLOGIST Rahat Mix PA-C RAD GD Beta Strep Resp Cult (07/25/2001 1:09 PM LOAD BLOCKER) athologist Signature Strep Screen SEE TEXT HP CONVERSION Comment: Patient: MINO CLEMENTE Culture Strep Screen, Throat @ ?Collected: ??[id number] ??[id number] Source: Throat ?Processed: ??[id number] ??1309 ? 1V Final Report ------ ?[id number] ??1000 No beta hemolytic Strep group A isolated . @ = Strep Screen Performed at ??[address] [place], [place] ?[address] Specimen (Source) Anatomical Collection Method Collection Time Re ceived Time Location / / Volume Laterality 07/25/2001 1:09 PM LOAD BLOCKER Jessica Kenney MD LAB_1 Performing Organization Address [facility] Phon e Number HP CONVERSION XR Elbow [...] Group A Antigen Test (04/08/1999 5:51 PM LOAD BLOCKER) [facility] Signature Strep Group A Negative Negative HP CONVERSION Antigen Test Comment: Culture to follow. Specimen (Source) Anatomical Collection Method Collection Time Re ceived Time Location / / Volume Laterality 04/08/1999 5:51 PM LOAD BLOCKER Jackson Rivera MD LAB_1 Performing Organization Address [facility] Phon e Number HP CONVERSION Beta Strep Followup (04/08/1999 5:51 PM LOAD BLOCKER) P athologist Signature Strep Screen SEE TEXT HP CONVERSION Comment: Patient: MINO CLEMENTE Rapid Strep Follow up Culture @ ? Collected: ??[id number] ??[id number] Source: Throat ?Processed: ??[id number] ??1759 ? 1V Final Report ------ ?[id number] ??1130 No beta hemolytic Strep group A isolated . @ = Rapid F/U Cult Performed at [address] [place], [place] ?[address] Specimen (Source) Anatomical Collection Method Collection Time Re ceived Time Location / / Volume Laterality 04/08/1999 5:51 PM LOAD BLOCKER Jackson Rivera MD LAB_1 Performing Organization Address City/[facility] Phon e Number HP CONVERSION Strep Group A Antigen Test (08/06/1998 11:10 AM CDT) Analysis Performed At [facility] Strep Group A Positive Negative HP CONVERSION Antigen Test Specimen (Source) Anatomical Collection Method Collection Time Re ceived Time Location / / Volume Laterality 08/06/1998 11:10 AM CDT Darryn Olson MD LAB_1 Performing Organization Address City/[facility]/ZIP Code Phon e Number HP CONVERSION Strep Group A Antigen Test (06/08/1998 10:09 AM LOAD BLOCKER) Analysis Performed At [facility] Strep Group A Negative Negative HP CONVERSION Antigen Test Comment: Culture to follow. Specimen (Source) Anatomical Collection Method Collection Time Re ceived Time Location / / Volume Laterality 06/08/1998 10:09 AM LOAD BLOCKER Rivera Izquierdo MD LAB_1 Performing Organization Address City/[facility]/ZIP Code Phon e Number HP CONVERSION (ABNORMAL) Beta Strep Followup (06/08/1998 10:09 AM LOAD BLOCKER) [facility] Time Signature Strep Screen SEE TEXT HP CONVERSION (A) Comment: Patient: MINO CLEMENTE Rapid Strep Follow up Culture @ ? Collected: ??[id number] ??1009 Source: Throat ?Processed: ??[id number] ??1012 ? 1C Final Report ------ ?[id number] ??1000 Beta Strep Group A Present. ICSI Pharyngitis guideline recommends Penicillin V potassium (Pen VK) in nonal lergic patients. If < 50 lbs, 250 mg PenVK BID for 10 day s. >=50 lbs, 500 mg PenVK BID for 10 days. @ = Rapid F/U Cult Performed at ??[address] [place] ?[address] Specimen (Source) Anatomical Collection Method Collection Time Re ceived Time Location / / Volume Laterality 06/08/1998 10:09 AM LOAD BLOCKER Rivera Izquierdo MD LAB_1 Performing Organization Address City/State/ZIP Code Phon e Number HP CONVERSION WBC, Blood (05/29/1998 3:47 PM LOAD BLOCKER) athologist Signature White Blood 6.3 5.0 - 14.5 HP CONVERSION Cell Count K/cmm Specimen (Source) Anatomical Collection Method Collection Time Re ceived Time Location / / Volume Laterality 05/29/1998 3:47 PM LOAD BLOCKER Benita Worthy III, MD LAB_1 Performing Organization Address City/State/ZIP Code Phon e Number HP CONVERSION (ABNORMAL) Beta Strep Resp Cult (04/26/1998 3:23 PM LOAD BLOCKER) Analysis Performed At Patho logist Time Signature Strep Screen SEE TEXT HP CONVERSION (A) Comment: Patient: MINO CLEMENTE Culture Strep Screen, Throat @ ?Collected: ??[id number] ??1523 Source: THROAT ?Processed: ??[id number] ??1523 ? 1C Final Report ------ ?[id number] ??0911 Beta Strep Group A Present. ICSI Pharyngitis guideline recommends Penicillin V potassium (Pen VK) in nonal lergic patients. If < 50 lbs, 250 mg PenVK BID for 10 day s. >=50 lbs, 500 mg PenVK BID for 10 days. @ = Strep Screen Performed at [address] [place], [place] ?[address] Specimen (Source) Anatomical Collection Method Collection Time Re ceived Time Location / / Volume Laterality 04/26/1998 3:23 PM LOAD BLOCKER Mary Stewart MD LAB_1 Performing Organization Address City/State/ZIP Code Phon e Number HP CONVERSION Strep Group A Antigen Test (04/05/1998 10:52 AM LOAD BLOCKER) Analysis Performed At [facility] Time Signature Strep Group A Negative Negative HP CONVERSION Antigen Test Comment: Culture to follow. Specimen (Source) Anatomical Collection Method Collection Time Re ceived Time Location / / Volume Laterality 04/05/1998 10:52 AM LOAD BLOCKER Jaquan Montanez MD LAB_1 Performing Organization Address [facility] Code Phon e Number HP CONVERSION (ABNORMAL) Beta Strep Followup (04/05/1998 10:52 AM LOAD BLOCKER) Analysis Performed At [facility] Time Signature Strep Screen SEE TEXT HP CONVERSION (A) Comment: Patient: MINO CLEMENTE Rapid Strep Follow up Culture @ ? Collected: ??[id number] ??1052 Source: Throat ?Processed: ??[id number] ??1054 ? 1C Final Report ------ ?[id number] ??1100 Beta Strep Group A Present. ICSI Pharyngitis guideline recommends Penicillin V potassium (Pen VK) in nonal lergic patients. If < 50 lbs, 250 mg PenVK BID for 10 day s. >=50 lbs, 500 mg PenVK BID for 10 days. @ = Rapid F/U Cult Performed at [address] [place] [place] ?[address] Specimen (Source) Anatomical Collection Method Collection Time Re ceived Time Location / / Volume Laterality 04/05/1998 10:52 AM LOAD BLOCKER Jaquan Montanez MD LAB_1 Performing Organization Address City/[facility]/ZIP Code Phon e Number HP CONVERSION Strep Group A Antigen Test (02/27/1998 10:38 AM LOAD BLOCKER) Analysis Performed At [facility] Time Signature Strep Group A Negative Negative HP CONVERSION Antigen Test Comment: Culture to follow. Specimen (Source) Anatomical Collection Method Collection Time Re ceived Time Location / / Volume Laterality 02/27/1998 10:38 AM LOAD BLOCKER Mary Stewart MD LAB_1 Performing Organization Address City/[facility]/ZIP Code Phon e Number HP CONVERSION Beta Strep Followup (02/27/1998 10:38 AM LOAD BLOCKER) P athologist Signature Strep Screen SEE TEXT HP CONVERSION Comment: Patient: MINO CLEMENTE Rapid Strep Follow up Culture @ ? Collected: ??[id number] ??1038 Source: Throat ?Processed: ??[id number] ??1040 ? 1C Final Report ------ ?[id number] ??1010 No beta hemolytic Strep group A isolated . @ = Rapid F/U Cult Performed at ??[address] [place], [place] ?[address] Specimen (Source) Anatomical Collection Method Collection Time Re ceived Time Location / / Volume Laterality 02/27/1998 10:38 AM LOAD BLOCKER Mary Stewart MD LAB_1 Performing Organization Address [facility] Phon e Number HP CONVERSION (ABNORMAL) WBC, Blood (02/27/1998 9:03 AM LOAD BLOCKER) Analysis Performed At Patho logist Time Signature White Blood 3.4 (LL) 5.0 - 14.5 HP CONVERSION Cell Count K/cmm Specimen (Source) Anatomical Collection Method Collection Time Re ceived Time Location / / Volume Laterality 02/27/1998 9:03 AM LOAD BLOCKER Mary Stewart MD LAB_1 Performing Organization Address [facility] Phon e Number HP CONVERSION Hemoglobin, Blood (02/27/1998 9:03 AM LOAD BLOCKER) P athologist Signature Hemoglobin 13.9 11.5 - 15.0 HP CONVERSION gm/dL Specimen (Source) Anatomical Collection Method Collection Time Re ceived Time Location / / Volume Laterality 02/27/1998 9:03 AM LOAD BLOCKER Mary Stewart MD LAB_1 Performing Organization Address [facility] Code Phon e Number HP CONVERSION Platelets (02/27/1998 9:03 AM LOAD BLOCKER) P athologist Signature Platelet Count 266 150 - 450 HP CONVERSION k/cmm Specimen (Source) Anatomical Collection Method Collection Time Re ceived Time Location / / Volume Laterality 02/27/1998 9:03 AM LOAD BLOCKER Mary Stewart MD LAB_1 Performing Organization Address [facility] Phon e Number HP CONVERSION Morph Final Report (02/27/1998 9:03 AM LOAD BLOCKER) Patholo gist Method Time Signature Morphology SEE TEXT No normal HP CONVERSION Final Report range Comment: Patient: MINO CLEMENTE ?Morphology Pathology # ??[id number] ?Date Obtained: ? Date Received: DIAGNOSIS: ?1. [...] / / Volume Laterality 02/27/1998 9:03 AM LOAD BLOCKER Mary Stewart MD LAB_1 Performing Organization Address City/[facility] Phon e Number HP CONVERSION Strep Group A Antigen Test (01/26/1998 3:25 PM CDT) Analysis Performed At Patho logist Time Signature Strep Group A Negative Negative HP CONVERSION Antigen Test Comment: Culture to follow. Specimen (Source) Anatomical Collection Method Collection Time Re ceived Time Location / / Volume Laterality 01/26/1998 3:25 PM CDT Rivera Izquierdo MD LAB_1 Performing Organization Address [facility] Code Phon e Number HP CONVERSION Beta Strep Followup (01/26/1998 3:25 PM CDT) P athologist Signature Strep Screen SEE TEXT HP CONVERSION Comment: Patient: MINO CLEMENTE Willie Rapid Strep Follow up Culture @ ? Collected: ??[id number] ??1525 Source: Throat ?Processed: ??[id number] ??1528 ? 1C Final Report ------ ?[id number] ??0912 No beta hemolytic Strep group A isolated . @ = Rapid F/U Cult Performed at [address] [place] ?[address] Specimen (Source) Anatomical Collection Method Collection Time Re ceived Time Location / / Volume Laterality 01/26/1998 3:25 PM CDT Rivera Izquierdo MD LAB_1 Performing Organization Address [facility] Phon e Number HP CONVERSION Strep Group A Antigen Test (11/16/1997 11:56 AM CDT) Analysis Performed At [facility] Time Signature Strep Group A Negative Negative HP CONVERSION Antigen Test Comment: Culture to follow. Specimen (Source) Anatomical Collection Method Collection Time Re ceived Time Location / / Volume Laterality 11/16/1997 11:56 AM CDT Rivera Izquierdo MD LAB_1 Performing Organization Address City/[facility] Phon e Number HP CONVERSION Beta Strep Followup (11/16/1997 11:56 AM CDT) athologist Signature Strep Screen SEE TEXT HP CONVERSION Comment: Patient: MINO CLEMENTE Rapid Strep Follow up Culture @ ? Collected: ??[id number] ??1156 Source: Throat ?Processed: ??[id number] ??1158 ? 1C Final Report ------ ?[id number] ??0913 No beta hemolytic Strep group A isolated . @ = Rapid F/U Cult Performed at [address] [place] ?[address] Specimen (Source) Anatomical Collection Method Collection Time Re ceived Time Location / / Volume Laterality 11/16/1997 11:56 AM CDT Rivera Izquierdo MD LAB_1 Performing Organization Address City/[facility] Phon e Number HP CONVERSION Strep Group A Antigen Test (08/31/1997 12:07 PM CDT) Analysis Performed At [facility] Time Signature Strep Group A Negative Negative HP CONVERSION Antigen Test Comment: Culture to follow. Specimen (Source) Anatomical Collection Method Collection Time Re ceived Time Location / / Volume Laterality 08/31/1997 12:07 PM CDT Mary Stewart MD LAB_1 Performing Organization Address City/[facility]/ZIP Code Phon e Number HP CONVERSION Beta Strep Followup (08/31/1997 12:07 PM CDT) athologist Signature Strep Screen SEE TEXT HP CONVERSION Comment: Patient: CUAUHTEMOC MINO Tapia Rapid Strep Follow up Culture @ ? Collected: ??[id number] ??1207 Source: Throat ?Processed: ??[id number] ??1209 Final Report ------ ?[id number] ??0732 No beta hemolytic Strep group A isolated . @ = Rapid F/U Cult Performed at ??[address] [place] ?[address] Specimen (Source) Anatomical Collection Method Collection Time Re ceived Time Location / / Volume Laterality 08/31/1997 12:07 PM CDT Mary Stewart MD LAB_1 Performing Organization Address City/State/ZIP Code Phon e Number HP CONVERSION Beta Strep Resp Cult (08/01/1997 4:43 PM CDT) P athologist Signature Strep Screen SEE TEXT HP CONVERSION Comment: Patient: MINO CLEMENTE Culture Strep Screen, Throat @ ?Collected: ??[id number] ??1649 Source: Throat ?Processed: ??[id number] ??1644 ? HELENA Final Report ------ ?[id number] ??0812 No beta hemolytic Strep group A isolated . @ = Strep Screen Performed at [address] [place] ?[address] Specimen (Source) Anatomical Collection Method Collection Time Re ceived Time Location / / Volume Laterality 08/01/1997 4:43 PM CDT Mary Stewart MD LAB_1 Performing Organization Address City/State/ZIP Code Phon e Number HP CONVERSION (ABNORMAL) Beta Strep Resp Cult (07/11/1997 4:46 PM LOAD BLOCKER) Analysis Performed At Patho logist Time Signature Strep Screen SEE TEXT HP CONVERSION (A) Comment: Patient: MINO CLEMENTE Culture Strep Screen, Throat @ ?Collected: ??[id number] ??164 Source: THROAT ?Processed: ??[id number] ??1648 ? Throat ??,, Final Report ------ ?1055 Beta Strep Group A Present. ICSI Pharyngitis guideline recommends Penicillin V potassium (Pen VK) in nonal lergic patients. If < 50 lbs, 250 mg PenVK BID for 10 day s. >=50 lbs, 500 mg PenVK BID for 10 days. @ = Strep Screen Performed at ??[address] [place] ?[address] Specimen (Source) Anatomical Collection Method Collection Time Re ceived Time Location / / Volume Laterality 07/11/1997 4:46 PM LOAD BLOCKER Mary Stewart MD LAB_1 Performing Organization Address City/State/ZIP Code Phon e Number HP CONVERSION (ABNORMAL) Beta Strep Resp Cult (06/26/1997 12:09 PM LOAD BLOCKER) Analysis Performed At Patho logist Time Signature Strep Screen SEE TEXT HP CONVERSION (A) Comment: Patient: MINO CLEMENTE Culture Strep Screen, Throat @ ?Collected: ?1209 Source: Throat ?Processed: ?121 ? 1V Final Report ------ ?1123 Beta Strep Group A Present. ICSI Pharyngitis guideline recommends Penicillin V potassium (Pen VK) in nonal lergic patients. If < 50 lbs, 250 mg PenVK BID for 10 day s. >=50 lbs, 500 mg PenVK BID for 10 days. @ = Strep Screen Performed at ??[address] [place] [place] ?[address] Specimen (Source) Anatomical Collection Method Collection Time Re ceived Time Location / / Volume Laterality 06/26/1997 12:09 PM LOAD BLOCKER Jolie Cazares MD LAB_1 Performing Organization Address [facility] Phon e Number HP CONVERSION Strep Group A Antigen Test (05/11/1997 4:58 PM LOAD BLOCKER) Analysis Performed At Patho logist Time Signature Strep Group A Negative Negative HP CONVERSION Antigen Test Comment: Culture to follow. Specimen (Source) Anatomical Collection Method Collection Time Re ceived Time Location / / Volume Laterality 05/11/1997 4:58 PM LOAD BLOCKER Mary Stewart MD LAB_1 Performing Organization Address [facility] Phon e Number HP CONVERSION (ABNORMAL) Beta Strep Followup (05/11/1997 4:58 PM LOAD BLOCKER) Analysis Performed At Patho logist Time Signature Strep Screen SEE TEXT HP CONVERSION (A) Comment: Patient: MINO CLEMENTE Rapid Strep Follow up Culture @ ? Collected: ??[id number] ??1658 Source: Throat ?Processed: ??[id number] ??1703 Final Report ------ ?[id number] ??1148 Beta Strep Group A Present. Pharyngitis CQI Grp recommends for nonal lergic patients: If < 50 lbs, 250 mg PenVK BID for 10 day s. >=50 lbs, 500 mg PenVK BID for 10 days. @ = Rapid F/U Cult Performed at ??[address], [place] ?[address] Specimen (Source) Anatomical Collection Method Collection Time Re ceived Time Location / / Volume Laterality 05/11/1997 4:58 PM LOAD BLOCKER Mary Stewart MD LAB_1 Performing Organization Address City/State/ZIP Code Phon e Number HP CONVERSION documented in this encounter Visit Diagnoses Not on filedocumented in this encounter Care Teams Oracle Business Analyst Relationship Specialty Start Date End Date Brisa Smith PA-C PCP - General 07/30/10 04/18/15 [address] [place] [address] documented as of this encounter
--- OUTSIDE RECORDS SUMMARY | 2022-03-07 15:00 | XMS_ITS | Encounter Summary ---
:1990 Author [facility] Address [address], [place] [address] Care Team Providers Name Role Phone Brisa Smith PA-C Primary Care Provider Encounter Details Date Type Department Care Team Description 10/12/2003 PN Conversion Only [facility] Ralph, [address] Lillian Stern APRN, [place] [address] [address] [phone] [place] [id number] (Wo rk) Social History Tobacco Use Types Packs/Day Years Used Date Smoking Tobacco: Never Assessed Sex Assigned at Date Recorded Not on file documented as of this encounter Progress Notes Lillian Rosas APRN, CNP - 10/12/2003 12:01 AM CDT H&P signed by Lillian Rosas APRN, CNP at 10/18/03 1223 Author: JOVANNA Antonio Service: (none) Author Type: Nurse Practitioner Filed: 08/16/10 7650 Note Time: 10/12/03 0001 Status: Signed Chief Of Pediatric Urology: JOVANNA Antonio (Nurse Practitioner) NAME: MINO POSADAS MR: [id number] ACCT: [id number] VISIT: [id number] DICTATING CLINICIAN: JOVANNA ANTONIO JOB: [id number] CLINIC PHYSICAL DATE OF VISIT: 10/12/2003 SUBJECTIVE: [...] sunscreen. Next routine exam in three years. EAC:[id number] C: 10/12/03 17:48 DOCUMENT: [id number] documented in this encounter Plan of Treatment Not on filedocumented as of this encounter Visit Diagnoses Not on filedocumented in this encounter Care Teams Director Of State Relationship Specialty Start Date End Date Brisa Smith PA-C PCP - General 07/30/10 04/18/15 [address] [place] [address] documented as of this encounter
--- OUTSIDE RECORDS SUMMARY | 2022-03-07 15:00 | XMS_ITS | Encounter Summary ---
:1990 Author Organization [facility] Address [address] [place] [address]. [place] [address] Care Team Providers Name Role Phone No Ref-Primary, Physician Primary Care Provider [phone] Encounter Details Date Type Department Care Team Description 10/25/2021 Medical Correspondence [facility] Scan, Provide r MATERNAL Health Info [facility] MEDICINE CE NTER Srvcs PROVIDER SERVICE [address] [place] [address] REQUEST- OUTPATIENT [facility] [id number] [place] [phone] Social History Tobacco Use Types Packs/Day Years Used Date Smoking Tobacco: Never Assessed Sex Assigned at Date Recorded Not on file documented as of this encounter Plan of Treatment Not on filedocumented as of this encounter Visit Diagnoses Not on filedocumented in this encounter Care Teams Credit Rating Checker Relationship Specialty Start Date End Date No Ref-Primary, Physician PCP - General 11/16/18 documented as of this encounter
--- OUTSIDE RECORDS SUMMARY | 2022-03-07 15:00 | XMS_ITS | Encounter Summary ---
:1990 Author Organization [facility] Address [address] [facility] [place] [address] Care Team Providers Name Role Phone No Ref-Primary, Physician Primary Care Provider [phone] Reason for Referral Diagnostic Imaging Ultrasound (Routine) - Pending Review Specialty Diagnoses / Procedures Referred By Contact Refer red To Contact Diagnoses related condition, antepartum Fit, July Procedures [place] [address] [place] [address] Referral ID Status Reason Start Date Expiration Date Visits V isits Requested Authorized [id number] Pending 11/01/2021 11/01/2022 1 1 Review Reason for Visit Diagnostic Imaging Ultrasound (Routine) - Pending Review Specialty Diagnoses / Procedures Referred By Contact Refer red To Contact Diagnoses related condition, antepartum July Procedures [address] [place] [address] Referral ID Status Reason Start Date Expiration Date Visits V isits Requested Authorized [id number] Pending 11/01/2021 11/01/2022 1 1 Review Encounter Details Date Type Department Care Team Description 11/20/2021 Hospital Encounter [facility] Leena Villagomez [id number] [place] [id number] related Maternal Juan Luis Chirinos MD [address] [place] [address] [address] [place], [place] [id number] condition, Medicine Center antepartum [place] [address] [facility] [address] [place] [address] Social History Tobacco Use Types [...] Procedure Name Priority Date/Time Associated Comments Diagnosis [facility] US COMPREHENSIVE Routine 11/20/2021 11:00 relate d Results for this SINGLE AM CDT condition, procedure are i n antepartum the results section. documented in this encounter Results [facility] US Comprehensive Single (11/20/2021 11:00 AM CDT) [...] KELLY Study Date: 11/20/2021 10:05am Pat. NO: [id number] Referring ??MD: SPENCER VILLAGOMEZ Site: [facility] Bindery Machine Operator: Anitha Love RDMS : 1990 Age: 31 INDICATION In Vitro Fertilization METHOD Transabdominal ultrasound examination. V iew: Sufficient Tubbs . Number of fetuses: 1 DATING ? Date ?Details ?Gest. age ?JOMAR Conception ? Conception: IVF Embryo transfer ?07/31/2021 ?IVF / ET: 5 d ?18 w + 5 d ? 04/18/2022 Prior assessment ? / 08/2021 ?GA: 7 w + 2 d [...] lb 10 ? oz EFW by ?Hadlock ([id number]) Head / Face / Neck Biometry: Nuclear Licensing Engineer ? 5.8 ? mm CM ?5.0 ? [...] cava. Inferior vena cava. 3-vessel ? view. 7-cbphkk-ieohljw view. Cardiac position. Cardiac size. Cardiac rhythm. [...] have scheduled the patient to return to [facility] in 4 weeks for a echo due [...] Pat. Name:Geovanni KELLY Date:10/27 10:05am Pat. NO: [id number] MD:BETSY ERA NESS [facility]NICK Sheriff :1990Age:31 INDICATION In Vitro Fertilization METHOD [...] 0 lb 10 oz EFW by Hadlock ([id number]) Head / Face / Neck Biometry: Nuclear Licensing Engineer 5.8 mm CM 5.0 mm Nasal bone [...] vena cava. Inferior vena cava. 3-vessel view. 1-crysgq-owfushc view. Cardiac po sition. Cardiac size. Cardiac [...] have scheduled the patient to return to [facility] in 4 weeks for a echo due [...] No markers for aneuploidy seen. July Benny [facility] ORDERABLES documented in this encounter Visit Diagnoses Diagnosis related condition, antepartum documented in this encounter Care Teams Wash Oil Cooler Operator Relationship Specialty Start Date End Date No Ref-Primary, Physician PCP - General 11/16/18 documented as of this encounter
--- OUTSIDE RECORDS SUMMARY | 2022-03-07 15:00 | XMS_ITS | Encounter Summary ---
:1990 Author Organization [facility] Address [address] [place] [address] Care Team Providers Name Role Phone No Ref-Primary, Physician Primary Care Provider Encounter Details Date Type [...] on filedocumented in this encounter Care Teams Corporate Operations Compliance Manager Relationship Specialty Start Date End Date No Ref-Primary, Physician PCP - General 11/16/18 documented as of this encounter
--- OUTSIDE RECORDS SUMMARY | 2022-03-07 15:00 | XMS_ITS | Encounter Summary ---
:1990 Author Organization [facility] Address [address] [place] [address] Care Team Providers Name Role Phone Brisa Smith PA-C Primary Care Provider Encounter Details Date Type Department Care Team Description 01/23/2004 Office Visit [facility] Rita Carlisle MD [facility] [id number] [place] [address] [phone] (Wo rk) Social History Tobacco Use Types [...] 0138 Note Time: 01/23/04 0001 Status: Signed Skip Loader: Rita Ruiz MD (Physician) [facility] Acute Clinic Visit IMPRESSION: URI Reactive [...] filedocumented in this encounter Care Teams Conveyor Tender Relationship Specialty Start Date End Date Brisa Smith PA-C PCP - General 07/30/10 04/18/15 [address] [place] [address] documented as of this encounter
--- OUTSIDE RECORDS SUMMARY | 2022-03-07 15:00 | XMS_ITS | Encounter Summary ---
:1990 Author Organization [facility] Address [address] [address] Care Team Providers Name Role Phone Brisa Smith PA-C Primary Care Provider Encounter Details Date Type Department Care Team Description 08/17/2002 PN Conversion Only [place] CONVERSION Ralph, [address] Stern APRN, [place] [address] [address] [place] [id number] (Wo rk) Social History Tobacco Use Types [...] 11:05 AM CDT) Analysis [facility] Time Signature Strep Group A Negative Negative HP CONVERSION Antigen Test Comment: Culture to follow. Specimen (Source) Anatomical Collection Method Collection Time Re ceived Time Location / / Volume Laterality 08/17/2002 11:05 AM CDT Lillian Rosas APRN, HOME MAKER LAB_1 Performing Organization Address City/State/ZIP Code Phon e Number HP CONVERSION Beta Strep Followup (08/17/2002 11:05 AM CDT) P athologist Signature Strep Screen SEE TEXT HP CONVERSION Comment: Patient: MINO POSADAS Rapid Strep Follow up Culture @ ? Collected: ??[id number] ??[id number] Source: Throat ?Processed: ??[id number] ??1107 ? G Final Report ------ ?[id number] ??[id number] No beta hemolytic Strep group A isolated . @ = Rapid F/U Cult Performed at ??[address] [place], [place] ?[address] Specimen (Source) Anatomical Collection Method Collection Time Re ceived Time Location / / Volume Laterality 08/17/2002 11:05 AM CDT Lillian Rosas APRN, HOME MAKER LAB_1 Performing Organization Address City/[facility] Phon e Number HP CONVERSION documented in this encounter Visit Diagnoses Not on filedocumented in this encounter Care Teams Glass Washer Relationship Specialty Start Date End Date Brisa Smith PA-C PCP - General 07/30/10 04/18/15 [address] [place], [place] [address] documented as of this encounter
--- OUTSIDE RECORDS SUMMARY | 2022-03-07 15:00 | XMS_ITS | Encounter Summary ---
:1990 Author Organization [facility] Address [address], [place] [address] Care Team Providers Name Role Phone Brisa Smith PA-C Primary Care Provider Encounter Details Date Type Department Care Team Description 10/12/2003 PN Conversion Only [place] CONVERSION Ralph, [address] BLASTING CLAY MINER, BILINGUAL [place] [address] [address] [place] [address] (Wo rk) Social History Tobacco Use [...] Laterality 10/12/2003 3:20 PM CDT Lillian Rosas BLASTING CLAY MINER, BILINGUAL MIDDLE SCHOOL TEACHER LAB_1 Performing Organization Address City/State/ZIP Code Phon e Number HP CONVERSION documented in this encounter Visit Diagnoses Not on filedocumented in this encounter Care Teams Negative Turner Relationship Specialty Start Date End Date Gastony, Brisa M, PA-C PCP - General 07/30/10 04/18/15 [address] [place] [address] documented as of this encounter
--- OUTSIDE RECORDS SUMMARY | 2022-03-07 15:00 | XMS_ITS | Encounter Summary ---
:1990 Author Organization [place] Address [facility] [place] [address] Care Team Providers Name Role Phone No Ref-Primary, Physician Primary Care Provider [phone] Reason for Referral Diagnostic Imaging Ultrasound (Routine) - Pending Review Specialty Diagnoses / Procedures Referred By Contact Refer red To Contact Diagnoses resulting from in vitro fertilization in second trimester Juan Luis Chirinos MD Procedures MFM Read Screen Echo Single [address] [place], [place] [address] Referral ID Status Reason Start Date Expiration Date Visits V isits Requested Authorized [id number] Pending 11/20/2021 11/20/2022 1 1 Review Reason for Visit Diagnostic Imaging Ultrasound (Routine) - Pending Review Specialty Diagnoses / Procedures Referred By Contact Refer red To Contact Diagnoses resulting from in vitro fertilization in second trimester Juan Luis Chirinos MD Procedures MFM Read Screen Echo Single [address] [place], [place] [address] Referral ID Status Reason Start Date Expiration Date Visits V isits Requested Authorized [id number] Pending 11/20/2021 11/20/2022 1 1 Review Encounter Details Date Type Department Care Team Description 12/18/2021 Hospital Encounter [facility] Juan Luis Robins Pre gnancy resulting Maternal MD Nader from in vitro Medicine Center [address] fertilizat ion in [place] [address] second trimester [address] [place], [place] [address] [address] [place], [place] [phone] [address] (Rmne) [phone] Social History Tobacco Use Types Packs/Day Years [...] Name Priority Date/Time Associated Diagnosis Comme nts [facility] READ SCREENING Routine 12/18/2021 10:02 resultin g Results for this ECHO AM CDT from in vitro procedure are in PENG fertilization in the results second trimester section. documented in this encounter Results M Read Screen Echo Single (12/18/2021 10:02 AM [...] SIGALA Study Date: 12/18/2021 9:18am Pat. NO: [id number] Referring ??MD: SPENCER VILLAGOMEZ Site: [facility] Medical Affairs Director: Nancie Bailey RD MS : 1990 Age: 31 INDICATION In vitro fertilization METHOD Grayscale imaging, Doppler echocardiogra phy color flow velocity mapping and Doppler echocardiography pulsed wave and or wave with spectral display were used to assess cardiac structures for wilner goode [facility] echocardiogram. View: Sufficient Peng . Number [...] RVOT view ?normal 3-vessel view ? normal 4-dzttev-jqgkcmc view ? normal High short axis view [...] Pat. Name:Geovanni SIGALA Date:11/27 9:18am Pat. NO: [id number] MD:DYLAN NESS [facility]Nancie Bailey RDMS :1990Age:31 INDICATION In vitro fertilization METHOD Grayscale imaging, Doppler echocardiogra phy color flow velocity mapping and Doppler echocardiography pulsed wave and or wave with spectral display were used to assess cardiac structures for wilner goode [facility] echocardiogram. View: Sufficient Peng . Number [...] normal RVOT view normal 3-vessel view normal 2-cevzcq-nbdihwt view normal High short axis view normal [...] aorta. Juan Luis Chirinos MD [facility] ORDERABLES documented in this encounter Visit Diagnoses Diagnosis resulting from in vitro fertil ization in second trimester documented in this encounter Care Teams Barrel Cap Setter Relationship Specialty Start Date End Date No Ref-Primary, Physician PCP - General 11/16/18 documented as of this encounter
--- OUTSIDE RECORDS SUMMARY | 2022-03-07 15:00 | XMS_ITS | Encounter Summary ---
:1990 Author Organization [place] Address [address] [place] [address] Care Team Providers Name Role Phone No Ref-Primary, Physician Primary Care Provider [phone] Reason for Referral Diagnostic Imaging Ultrasound (Routine) - Pending Review Specialty Diagnoses / Procedures Referred By Contact Refer red To Contact Diagnoses related condition, antepartum , July Procedures [facility] MEDICAL [address] [place] [address] Referral ID Status Reason Start Date Expiration Date Visits V isits Requested Authorized [id number] Pending 11/01/2021 11/01/2022 1 1 Review onsultation (Routine: Next available opening) - Pending Review Specialty Diagnoses / Procedures Referred By Contact Refer red To Contact Diagnoses related condition, antepartum July Rh Maternal Med [facility] MEDICAL [address] [facility] [address] [address] [place] [address] Phone: Fax: Referral ID Status Reason Start Date Expiration Date Visits V isits Requested Authorized [id number] Pending 11/01/2021 11/01/2022 1 1 Review Encounter Details Date Type Department Care Team Description 11/01/2021 [facility] Maternal [facility] condition, [facility] MEDICAL antepartum (Primary [place] [address]x) [address] [place], [place] [address] [address] [place], [place] [phone] [address] (Work) [phone] Social History Tobacco Use Types Packs/Day Years Used Date Smoking Tobacco: Never Assessed Sex Assigned at Date Recorded Not on file documented as of this encounter Plan of Treatment Scheduled Referrals Name Type Priority Associated Diagnoses Order [facility] Referral Routine: Next related Expe cted: Referral - available opening condition, 11/01/2021 antepartum (Approximate), Expires: 04/30/2022 documented as of this encounter Results [facility] US Comprehensive Single (11/20/2021 11:00 AM [...] KELLY Study Date: 11/20/2021 10:05am Pat. NO: [id number] Referring ??MD: SPENCER VILLAGOMEZ Site: [facility] Control Engineer: Anitha Love RDMS : 1990 Age: [...] ?Brian LIAO ?57.7 ?mm ? 18w 6d ?Stephanie ?164.1 ?mm ?19w 1d ?Hadlock Cerebellum tr ?19.1 ? mm ?18w 4d ?Nicolaides AC ?148.8 ?mm ?20w 1d ?88% ?Hadlock Femur ?27.0 ? mm ?18w 2d ?Hadlock Humerus ?26.5 ?mm ? 18w 3d ?Ramon Weight Calculation: EFW ? 282 ? g ? 76% ?Hadlock EFW (lb,oz) ? 0 lb 10 ? oz EFW by ?Hadlock ([id number]-[id number]-FL) Head / Face / Neck Biometry: Fur Nailer ? 5.8 ? mm CM ?5.0 ? [...] cava. Inferior vena cava. 3-vessel ? view. 5-xhxrak-lwizgba view. Cardiac position. Cardiac size. Cardiac rhythm. [...] have scheduled the patient to return to [facility] in 4 weeks for a echo [...] Esperanza. Name:Geovanni KELLY Date:10/27 10:05am Pat. NO: [id number] MD:BETSY NESS [facility] Sheriff :1990Age:31 INDICATION In Vitro Fertilization METHOD [...] 0 lb 10 oz EFW by Hadlock (EBZ-QA-ZT-FL) Head / Face / Neck Biometry: Fur Nailer 5.8 mm CM 5.0 mm Nasal bone [...] vena cava. Inferior vena cava. 3-vessel view. 1-fhapvh-jgstlcg view. Cardiac po sition. Cardiac size. Cardiac [...] have scheduled the patient to return to [facility] in 4 weeks for a echo [...] No markers for aneuploidy seen. July Benny [facility] ORDERABLES documented in this encounter Visit Diagnoses Diagnosis related condition, antepartum - Primary related condition, antepartum documented in this encounter Care Teams Sql Database Administrator Relationship Specialty Start Date End Date No Ref-Primary, Physician PCP - General 11/16/18 documented as of this encounter
--- OUTSIDE RECORDS SUMMARY | 2022-03-07 15:00 | XMS_ITS | Clinical Summary ---
:1990 Author Organization [place] Address [address] [place] [address] Care Team Providers Name Role Phone No Ref-Primary, Physician Primary Care Provider [phone] Allergies Active Allergy Reactions Severity Noted Date Comments Penicillins 06/30/2002 PN: LW Reaction : Rash, Generalized Sulfa Drugs 06/30/2002 PN: LW Reaction : Rash, Generalized Encounters Date Type Specialty Care Team Description 12/18/2021 Office Visit Maternal and Juan Luis Chirinos y resulting Medicine MD Nader from in vitro fertilization i n second trimeste r (Primary Dx) 12/18/2021 Hospital Encounter Radiology. Juan Luis Chirinos y resulting MD Nader from in vitro fertilization i n second trimeste r 12/18/2021 Travel from Last 3 Months Social History Tobacco Use Types Packs/Day Years Used Date Smoking Tobacco: Never Assessed Estimated Date of Delivery Comments [...] 1990 ANNUAL REVIEW OF HM ORDERS 1990 COVID-19 Vaccine (#1) 03/09/1990 HIV SCREENING 2004 HEPATITIS C SCREENING 09/07/2007 PAP 2010 DTAP/TDAP/TD IMMUNIZATION (3 2017 09/07/2007, - Td or Tdap) 10/15/2001 YEARLY PREVENTIVE VISIT 03/18/2020 03/18/2019 PHQ-2 (once per calendar 04/28/2021 year) MATERNAL [...] Name Priority Date/Time Associated Diagnosis Comme nts [facility] READ SCREENING Routine 12/18/2021 10:02 resultin g Results for this ECHO AM CDT from in vitro procedure are in PENG fertilization in the results second trimester section. from Last 3 Months Results [facility] Read Screen Echo Single (12/18/2021 10:02 [...] Study Date: 0 12/18/2021 9:18am Pat. NO: [id number] Referring ??MD: SPENCER VILLAGOMEZ Site: [facility] Gas Brazer: Nancie Bailey RD MS : 1990 Age: 31 INDICATION In vitro fertilization METHOD Grayscale imaging, Doppler echocardiogra phy color flow velocity mapping and Doppler echocardiography pulsed wave and or wave with spectral display were used to assess cardiac structures for wilner goode [facility] echocardiogram. View: Sufficient Peng . Number [...] RVOT view ?normal 3-vessel view ? normal 4-baqtrr-cxgsmwf view ? normal High short axis view [...] Pat. Name:Geovanni SIGALA Date:11/27 9:18am Pat. NO: [id number] MD:DYLAN NESS [facility]:Nancie Bailey [facility] :1990Age:31 INDICATION In vitro fertilization METHOD Grayscale imaging, Doppler echocardiogra phy color flow velocity mapping and Doppler echocardiography pulsed wave and or wave with spectral display were used to assess cardiac structures for carlosdamian rupa [facility] echocardiogram. View: Sufficient Peng . Number [...] normal RVOT view normal 3-vessel view normal 4-smlaqf-gqnopup view normal High short axis view normal [...] Parker AoV annulus syst 4.0 mm 1.25 Parkre RECOMMENDATION We discussed the findings on today's [...] of the aorta. Juan Luis Chirinos MD [facility] ORDERABLES from Last 3 Months Insurance Payer Benefit Plan / Subscriber ID Effective Dates Phone Addre ss Type Group [employer] [id number] 2019-Present [facility] [address] [id number] [place] [address] Care Teams It Recruiter Relationship Specialty Start Date End Date No Ref-Primary, Physician PCP - General 11/16/18
--- OUTSIDE RECORDS SUMMARY | 2022-03-07 15:00 | XMS_ITS | Encounter Summary ---
:1990 Author Organization [facility] Address [address], [place] [address] Care Team Providers Name Role Phone Brisa Smith PA-C Primary Care Provider Encounter Details Date Type Department Care Team Description 01/04/2004 PN Conversion Only [place] CONVERSION Lena Chiu, FERTILIZER PROCESSING SUPERVISOR, [address] [place] [address] [address] [address] (Wo rk) Social History Tobacco Use [...] Blood Count W/3Diff (01/04/2004 11:20 AM CDT) [facility] Method Time Signature White Blood Cell [...] - HP CONVERSION Hemoglobin Conc 36.5 gm/dL [place] RDW 12.6 11.0 - HP CONVERSION 15.0 [...] 01/04/2004 11:20 AM CDT Lena Chiu APRN, CNP LAB_1 Performing Organization Address City/State/ZIP Code Phon e Number HP CONVERSION documented in this encounter Visit Diagnoses Not on filedocumented in this encounter Care Teams Phd Internship Relationship Specialty Start Date End Date Brisa Smith PA-C PCP - General 07/30/10 04/18/15 [address] [place] [address] documented as of this encounter
--- OUTSIDE RECORDS SUMMARY | 2022-03-07 15:00 | XMS_ITS | Encounter Summary ---
:1990 Author Organization [facility] Address [address] [place] [address] Care Team Providers Name Role Phone Brisa Smith PA-C Primary Care Provider Encounter Details Date Type Department Care Team Description [facility]/04[facility]2004 [facility] TRACK DRESSER, HVAC OPERATIONS TECHNICIAN [address] [place] [address] [phone] (Wo rk) Social History Tobacco Use Types Packs/Day Years Used Date Smoking Tobacco: Never Assessed Sex Assigned at Date Recorded Not on file documented as of this encounter Progress Lena Garrison - 01/04/2004 12:01 AM CDT Progress Notes signed by KIMBERLY Guerrier at 02/16/04 192 Author: KIMBERLY Guerrier Service: (none) Author Type: Nurse Practitioner Filed: 08/17/10 0118 Note Time: 01/04/04 0001 Status: Signed Car Repairer: KIMBERLY Guerrier (Nurse Practitioner) NAME: MINO POSADAS MR: [id number] ACCT: [id number] VISIT: [id number] DICTATING CLINICIAN: LENA CHIU NP JOB: [id number] CLINIC PROGRESS NOTE DATE OF VISIT: 01/04/2004 SUBJECTIVE: CHIEF COMPLAINT: A 13-year-old female presents for follow up cough diagnosed with pneumonia at [facility] 12/27/03. Just finished a Z-Torito. Initially felt better, now states symptoms have worsened. Has felt feverish this morning. Disrupted sleep secondary to the cough. [place] short of breath with some chest tightness [...] reviewed. Chest x-ray negative on 12/28/03 through [facility]. Mino is otherwise in good health. 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 She did attend school last week despite [...] Cough with bronchospasm, recent diagnosis of pneumonia. ALK:[id number] C: 01/05/04 08:57 DOCUMENT: [id number] documented in this encounter Plan of Treatment Not on filedocumented as of this encounter Visit Diagnoses Not on filedocumented in this encounter Care Teams Court Of Appeals Judge Relationship Specialty Start Date End Date Brisa Smith PA-C PCP - General 07/30/10 04/18/15 [address] [place] [address] documented as of this encounter
--- OUTSIDE RECORDS SUMMARY | 2022-03-07 15:00 | XMS_ITS | Encounter Summary ---
:1990 Author Organization [facility] Address [address], [place] [address] Care Team Providers Name Role Phone Brisa Smith PA-C Primary Care Provider Encounter Details Date Type Department Care Team Description 06/30/2003 PN Conversion Only [place] Rahat Florez PA-C [address] [place] [address] [place] [address] (Wo rk) Social History Tobacco Use Types Packs/Day Years Used Date Smoking Tobacco: Never Assessed Sex Assigned at Date Recorded Not on file documented as of this encounter Plan of Treatment Not on filedocumented as of this encounter Procedures Procedure Name Priority Date/Time Associated Diagnosis Comme nts COMPLETE BLOOD Routine 06/30/2003 8:43 AM Results for this COUNT-NO DIFF PRINTING GRAY CLOTH TENDER procedure are in the results section. documented in this encounter Results (ABNORMAL) Complete Blood Count-No Diff (06/30/2003 8:43 AM PRINTING GRAY CLOTH TENDER) [facility] Method Time Signature White Blood Cell 4.1 [...] 32.0 - HP CONVERSION Hemoglobin Conc 36.5 Jerome gm/dL RDW 12.7 11.0 - HP CONVERSION 15.0 % Platelet Count 232 150 - 450 HP CONVERSION k/cmm Specimen (Source) Anatomical Collection Method Collection Time Re ceived Time Location / / Volume Laterality 06/30/2003 8:43 AM PRINTING GRAY CLOTH TENDER Rahat Mix PA-C LAB_1 Performing Organization Address City/State/ZIP Code Phon e Number HP CONVERSION documented in this encounter Visit Diagnoses Not on filedocumented in this encounter Care Teams Bull Gang Supervisor Relationship Specialty Start Date End Date Brisa Smith PA-C PCP - General 07/30/10 04/18/15 [address] [place] [address] documented as of this encounter
--- OUTSIDE RECORDS SUMMARY | 2022-03-07 15:00 | XMS_ITS | Encounter Summary ---
:1990 Author Organization [place] Address [address] [facility] [place] [address] Care Team Providers Name Role Phone No Ref-Primary, Physician Primary Care Provider [phone] Reason for Visit Reason Comments Ultrasound echo-IVF Encounter Details Date Type Department Care Team Description 12/18/2021 Office Visit [facility] Juan Luis Chirinos resulting Maternal MD Nader from in vitro Medicine Center [address] fertilizat ion in second [facility] 400 trimester (Primary Dx) [address] [place], [place] [address] [address] [place], [place] [phone] [address] (Work) [phone] Social History Tobacco Use Types Packs/Day Years [...] for details of today's US at the [facility]. Juan Luis Chirinos MD Maternal- Medicine documented in this encounter Plan of Treatment Not on filedocumented as of this encounter Visit Diagnoses Diagnosis resulting from in vitro fertil ization in second trimester - Primary documented in this encounter Care Teams Tank Wagon Operator Relationship Specialty Start Date End Date No Ref-Primary, Physician PCP - General 11/16/18 documented as of this encounter
--- OUTSIDE RECORDS SUMMARY | 2022-03-07 15:00 | XMS_ITS | Encounter Summary ---
:1990 Author Organization [place] Address [facility] [place] [address] Care Team Providers Name Role Phone No Ref-Primary, Physician Primary Care Provider [phone] Reason for Referral Diagnostic Imaging Ultrasound (Routine) - Pending Review Specialty Diagnoses / Procedures Referred By Contact Refer red To Contact Diagnoses resulting from in vitro fertilization in second trimester Juan Luis Chirinos MD Procedures MFM Read Screen Echo Single [address] [place], [place] [address] Referral ID Status Reason Start Date Expiration Date Visits V isits Requested Authorized [id number] Pending 11/20/2021 11/20/2022 1 1 Review Reason for Visit Reason Comments Ultrasound L2- IVF Encounter Details Date Type Department Care Team Description 11/20/2021 Office Visit [facility] Spencer Villagomez [address] [place], [place] [phone] resulting Maternal Juan Luis Chirinos MD [address] [place] [address] from in vitro Medicine Center fertilizatio n in second [place] trimester (Primary Dx) [address] [facility] [address] [place] [address] Social History Tobacco Use Types [...] for details of today's US at the [facility]. Juan Luis Chirinos MD Maternal- Medicine documented in this encounter Plan of Treatment Not on filedocumented as of this encounter Results [facility] Read Screen Echo Single (12/18/2021 [...] Study Date: 0 12/18/2021 9:18am Pat. NO: [id number] Referring ??MD: SPENCER VILLAGOMEZ Site: [facility] City Auditor: Nancie Bailey RD MS : 1990 Age: 31 INDICATION In vitro fertilization METHOD Grayscale imaging, Doppler echocardiogra phy color flow velocity mapping and Doppler echocardiography pulsed wave and or wave with spectral display were used to assess cardiac structures for wilner goode [facility] echocardiogram. View: Sufficient Tubbs . Number [...] RVOT view ?normal 3-vessel view ? normal 5-aawevk-yuhmkts view ? normal High short axis view [...] different from the original. Echo Pat. Name:Geovanni KELLY Date:11/27 9:18am Pat. NO: [id number] MD:JULY ERA NESS [facility]Nancie Bailey RDMS :1990Age:31 INDICATION In vitro fertilization METHOD Grayscale imaging, Doppler echocardiogra phy color flow velocity mapping and Doppler echocardiography pulsed wave and or wave with spectral display were used to assess cardiac structures for wilner goode [facility] echocardiogram. View: Sufficient Tubbs . Number [...] normal RVOT view normal 3-vessel view normal 9-ujetdj-buxwhve view normal High short axis view normal [...] of the aorta. Juan Luis Chirinos MD [facility] ORDERABLES documented in this encounter Visit Diagnoses Diagnosis resulting from in vitro fertil ization in second trimester - Primary resulting from in vitro fertil ization in second trimester documented in this encounter Care Teams Mechanic Marine Engine Relationship Specialty Start Date End Date No Ref-Primary, Physician PCP - General 11/16/18 documented as of this encounter
--- OUTSIDE RECORDS SUMMARY | 2022-03-07 15:00 | XMS_ITS | Encounter Summary ---
:1990 Author Organization [place] Address [address] [place] [address] Care Team Providers Name Role Phone No Ref-Primary, Physician Primary Care Provider [phone] Encounter Details Date Type Department Care Team [...] on filedocumented in this encounter Care Teams Featheredger And Reducer Machine Relationship Specialty Start Date End Date No Ref-Primary, Physician PCP - General 11/16/18 documented as of this encounter
--- OUTSIDE RECORDS SUMMARY | 2022-03-07 15:00 | XMS_ITS | Encounter Summary ---
:1990 Author Organization [place] [facility] Address [address] [place] [address] Care Team Providers Name Role Phone No Ref-Primary, Physician Primary Care Provider [phone] Reason for Visit Reason Comments Abdominal Pain Encounter Details Date Type Department Care Team Description 11/16/2018 Emergency [facility] Torsten Madden MD Acute abdominal pain; [facility] Emergency Dep t EMERGENCY PHYSICIANS Adverse reaction to antibiot ic [address] [place], [place] [address] [facility] [address] [place] [address] [place] [address] (Wo rk) Social History Tobacco Use Types [...] dehydrated. Signs of dehydration can be: Your infant has had no wet diapers in 4-5 hours. Your older child has not passed urine in 6-8 hours. Your or child starts to have dry mouth [...] directed by your doctor today. Before using nsko-bjy-icvbdgy medications, ask your doctor and make sure [...] contain Tylenol?? (acetaminophen), including Vicodin??, Tylenol #3??, [place]??, Lortab??, and Percocet??. You should not take [...] be sent through Care Everywhere.Drug Reaction, Other (Filipino)documented in this encounter Medications at Time of [...] observations and the provider's statements to me. [facility] EMERGENCY DEPARTMENT Torsten Madden MD 11/16/18 [...] Microscopic (11/16/2018 3:00 AM CDT) [facility] Method Time Signature Color Urine Straw 11/16/2018 [facility] 3:14 AM [facility] Appearance Urine Clear 11/16/2018 [facility] 3:14 AM [facility] Glucose Urine Negative NEG^Negat 11/16/2018 [facility] raisa mg/dL 3:14 AM [facility] Bilirubin Urine Negative NEG^Negat 11/16/2018 [facility] raisa 3:14 AM [facility] Ketones Urine Negative NEG^Negat 11/16/2018 [facility] raisa mg/dL 3:14 AM [facility] Specific [place] 1.004 1.003 - 11/16/2018 [facility] Urine 1.035 3:14 AM [facility] Blood Urine Negative NEG^Negat 11/16/2018 [facility] raisa 3:14 AM [facility] pH Urine 5.5 5.0 - 7.0 11/16/2018 [facility] pH 3:14 AM [facility] Protein Albumin Negative NEG^Negat 11/16/2018 [facility] Urine raisa mg/dL 3:14 AM [facility] Urobilinogen Normal 0.0 - 2.0 11/16/2018 [facility] mg/dL mg/dL 3:14 AM [facility] Nitrite Urine Negative NEG^Negat 11/16/2018 [facility] raisa 3:14 AM [facility] Leukocyte Negative NEG^Negat 11/16/2018 [facility] Esterase Urine raisa 3:14 AM [facility] Source Midstream 11/16/2018 [facility] Urine 3:01 AM [facility] WBC Urine 1 0 - 5 11/16/2018 [place] /HPF 3:14 AM [facility] RBC Urine <1 0 - 2 11/16/2018 [place] /HPF 3:14 AM [facility] Bacteria Urine Few (A) NEG^Negat 11/16/2018 [place] raisa /HPF 3:14 AM [facility] Squamous <1 0 - 1 11/16/2018 [place] Epithelial /HPF /HPF 3:14 AM [facility] Specimen (Source) Anatomical Collection Method Collection Time Re ceived Time Location / / Volume Laterality Examination of URINE SPECIMEN / 11/16/2018 3:00 2018 3:06 midstream urine Unknown AM CDT AM CDT specimen (procedure) Torsten Madden MD LAB - URINE ORDERABLES Performing Organization Address City/[facility]/ZIP [facility] [place] [facility] [address] [place], [place] [address] [facility] [address] [address], [facility] [phone] HCG qualitative Blood (11/16/2018 2:16 AM CDT) [facility] Method Time Signature HCG Qualitative Negative NEG^Negati 11/16/2018 [place] Serum ve 2:47 AM [facility] Comment: This test is for screening purposes. ??R esults should be interpreted along with the clinical picture. ??Confirmation te sting is available if warranted by ordering [id number], HCG Quantitative Pregna ncy. Specimen Anatomical Collection Method Collection Time Receive d Time (Source) Location / / Volume Laterality Blood specimen 11/16/2018 2:16 AM 019 2:22 (specimen) CDT AM CDT Torsten Madden MD LAB - BLOOD ORDERABLES Performing Organization Address City/[facility]/ZIP [facility] [place]on [place] Number [facility] [address] [place], [place] [address] [facility] [address] [place] [address] [facility] [phone] Lipase (11/16/2018 2:16 AM CDT) athologist Signature Lipase 76 73 - 393 11/16/2018 [facility] U/L 2:44 AM [facility] Specimen Anatomical Collection Method Collection Time Receive d Time (Source) Location / / Volume Laterality Blood specimen 11/16/2018 2:16 AM 019 2:22 (specimen) CDT AM CDT Torsten Madden MD LAB - BLOOD ORDERABLES Performing Organization Address City/State/ZIP Code Phon e Number [facility] [address] [place], [place] [address] [facility] [address] [place], [place] [address] [phone] (ABNORMAL) Comprehensive metabolic panel (11/16/2018 2:16 AM CDT) athologist Signature Sodium 139 133 - 144 11/16/2018 [place] mmol/L 2:36 AM [facility] Potassium 3.7 3.4 - 5.3 11/16/2018 [place] mmol/L 2:36 AM [facility] Chloride 108 94 - 109 11/16/2018 [place] mmol/L 2:36 AM [facility] Carbon Dioxide 25 20 - 32 11/16/2018 [place] mmol/L 2:42 AM [facility] Anion Gap 6 3 - 14 11/16/2018 [place] mmol/L 2:42 AM [facility] Glucose 100 (H) 70 - 99 11/16/2018 [place] mg/dL 2:42 AM [facility] Urea Nitrogen 9 7 - 30 11/16/2018 [place] mg/dL 2:42 AM [facility] Creatinine 0.88 0.52 - 11/16/2018 [facility] 1.04 mg/dL 2:42 AM [facility] GFR Estimate 89 >60 11/16/2018 [facility] mL/min/{1. 2:42 AM [facility] 73_m2} [facility]OSPITAL Comment: Non GFR Calc Starting 04/14/2018, serum creatinine ba sed estimated GFR (eGFR) will be calculated using the Chronic Kidney Dise ase Epidemiology Collaboration (CKD-EPI) equation. GFR Estimate If >90 >60 mL/min/{1.73_m2} 11/16/2018 2: 42 AM [facility] Comment: GFR Calc Starting 04/14/2018, serum creatinine ba sed estimated GFR (eGFR) will be calculated using the Chronic Kidney Dise ase Epidemiology Collaboration (CKD-EPI) equation. Calcium 8.7 8.5 - 10.1 mg/dL 11/16/2018 2:42 AM [facility] Bilirubin Total 0.5 0.2 - 1.3 mg/dL 11/16/2018 2:44 AM [facility] Albumin 4.3 3.4 - 5.0 g/dL 11/16/2018 2:44 AM [facility] Protein Total 7.6 6.8 - 8.8 g/dL 11/16/2018 2:44 AM [facility] Alkaline Phosphatase 57 40 - 150 U/L 11/16/2018 2:44 AM [facility] ALT 17 0 - 50 U/L 11/16/2018 2:44 AM [facility] AST 12 0 - 45 U/L 11/16/2018 2:44 AM [facility] Specimen Anatomical Collection Method Collection Time Receive d Time (Source) Location / / Volume Laterality Blood specimen 11/16/2018 2:16 AM 019 2:22 (specimen) CDT AM CDT Torsten Madden MD LAB - BLOOD ORDERABLES Performing Organization Address City/State/ZIP Code Phon e Number [place] [address] [address] [place] [address] [address] [phone] CBC with platelets differential (11/16/2018 2:16 AM CDT) [facility] Method Time Signature WBC 6.2 4.0 - 11/16/2018 [facility] 11.0 2:25 AM [facility] 10e9/L [facility] RBC Count 4.94 3.8 - 5.2 11/16/2018 [place] 10e12/L 2:25 AM [facility] Hemoglobin 15.3 11.7 - 11/16/2018 [facility] 15.7 g/dL 2:25 AM [facility] Hematocrit 44.5 35.0 - 11/16/2018 [facility] 47.0 % 2:25 AM [facility] MCV 90 78 - 100 11/16/2018 [facility] fl 2:25 AM [facility] MCH 31.0 26.5 - 11/16/2018 [facility] 33.0 pg 2:25 AM [facility] MCHC 34.4 31.5 - 11/16/2018 [facility] 36.5 g/dL 2:25 AM [facility] RDW 11.8 10.0 - 11/16/2018 [facility] 15.0 % 2:25 AM [facility] Platelet Count 212 150 - 450 11/16/2018 [facility] 10e9/L 2:25 AM [facility] Diff Method Automated 11/16/2018 [facility] Method 2:25 AM [facility] % Neutrophils 46.3 % 11/16/2018 [facility] 2:25 AM [facility] % Lymphocytes 40.6 % 11/16/2018 [facility] 2:25 AM [facility] % Monocytes 8.4 % 11/16/2018 [facility] 2:25 AM [facility] % Eosinophils 3.9 % 11/16/2018 [facility] 2:25 AM [facility] % Basophils 0.6 % 11/16/2018 [facility] 2:25 AM [facility] % Immature 0.2 % 11/16/2018 [facility] Granulocytes 2:25 AM [facility] Nucleated RBCs 0 0 /100 11/16/2018 [facility] 2:25 AM [facility] Absolute 2.9 1.6 - 8.3 11/16/2018 [facility] Neutrophil 10e9/L 2:25 AM [facility] Absolute 2.5 0.8 - 5.3 11/16/2018 [facility] Lymphocytes 10e9/L 2:25 AM [facility] Absolute 0.5 0.0 - 1.3 11/16/2018 [facility] Monocytes 10e9/L 2:25 AM [facility] Absolute 0.2 0.0 - 0.7 11/16/2018 [facility] Eosinophils 10e9/L 2:25 AM [facility] Absolute 0.0 0.0 - 0.2 11/16/2018 [place] Basophils 10e9/L 2:25 AM [facility] Abs Immature 0.0 0 - 0.4 11/16/2018 [facility] Granulocytes 10e9/L 2:25 AM [facility] Absolute 0.0 11/16/2018 [facility] Nucleated RBC 2:25 AM [facility] Specimen Anatomical Collection Method Collection Time Receive d Time (Source) Location / / Volume Laterality Blood specimen 11/16/2018 2:16 AM 019 2:22 (specimen) CDT AM CDT Torsten Madden MD LAB - BLOOD ORDERABLES Performing Organization Address City/State/ZIP Code Phon e Number [place] [address] [facility] [address] [phone] documented in this encounter Visit Diagnoses Diagnosis [...] 223 (New Bag - Provider: Regis Garcia RN)0340 (Stopped - Provider: Regis Garcia RN) Intravenous, 1,000 mL, ONCE, at 1,000 mL /hr, Administer over 1 Hours, Fri11/16/18 at 0211, For 1 dose famotidine (PEPCID) injection 20 mg (COMPLETED) 224 (Given - Provider: Regis Garcia RN) 20 mg, Intravenous, Administer over 2 Mi nutes, ONCE, Fri11/16/18 at 021, For 1 dose, For ordered IV doses 1-20 mg, give IV Push diluted with 5-10ml NS over a minimum of 2 minutes. lidocaine HCl (XYLOCAINE) 2 % 15 mL, alu m & mag hydroxide-simethicone (MYLANTA ES/MAALOX ES) 15 mL GI Cocktail (COMPLETED) 022 (Given - Provider: Regis Garcia RN) 30 [...] sea, vomiting, Administer over 2-5 Minutes, Starting Fri11/16/18 at 0209, For 3 doses, May repeat in 30 minutes as needed, up to 3 doses. Irritant. For ordered IV doses 0.1-4 mg, give IV Push undiluted over 2-5 minutes. documented in this encounter Care Teams Forensic Dna Analyst Relationship Specialty Start Date End Date No Ref-Primary, Physician PCP - General 11/16/18 documented as of this encounter
--- OUTSIDE RECORDS SUMMARY | 2022-03-07 15:01 | XMS_ITS | Encounter Summary ---
:1990 Author Organization [facility] Address [address] [place] [address] Care Team Providers Name Role Phone Unavailable Primary Care Provider Unavailable Encounter Details Date Type Department Care Team Description 10/19/2003 Emergency room Daria Cavanaugh MD EMERGENCY PHYSIC [address] [place], [place] [address] (Wo rk) Social History [...] [id number] _ DARIA CAVANAUGH MD [place]: Document: [id number] [place], [place] Name: MINO POSADAS EMERGENCY ROOM ENCOUNTER Page 2 of 2 LCN: SILVIA DSC: 10/19/2003 [place], [place] Name: MR#: : Admit Date: MINO POSADAS -33 1990 10/19/2003 Doctor: DARIA CAVANAUGH MD EMERGENCY ROOM ENCOUNTER Page 1 of 2 documented in this encounter Plan of Treatment Not on filedocumented as of this encounter Visit Diagnoses Not on filedocumented in this encounter
--- OUTSIDE RECORDS SUMMARY | 2022-03-07 15:01 | XMS_ITS | Encounter Summary ---
:1990 Author Organization [facility] Address [address] [place] [address] Care Team Providers Name Role Phone Unavailable [...] 12-year-old female who yesterday collided with another supervisor carton and can supply and now complains of decreased sensation in [...] [id number] _ ANGELES HEARD MD [place]: Document: [id number] [place], [place] Name: MINO POSADAS EMERGENCY ROOM ENCOUNTER Page 2 of 2 LCN: IGNACIA DSC: 08/14/2003 [place], [place] Name: MR#: : Admit Date: MINO POSADAS [id number] 1990 08/14/2003 Doctor: ANGELES HEARD MD EMERGENCY ROOM ENCOUNTER Page 1 of 2 documented in this encounter Plan of Treatment Not on filedocumented as of this encounter Visit Diagnoses Not on filedocumented in this encounter
--- OUTSIDE RECORDS SUMMARY | 2022-03-07 15:01 | XMS_ITS | Encounter Summary ---
:1990 Author Organization [facility] Address [address] [place] [address] Care Team Providers Name Role Phone Unavailable [...] No unusual pets. No travel to the [facility]. No unusual molds in the house. No [...] concern. [id number]_ RANJITH DIAZ MD [place]: Document: [id number] [place], [place] Name: MINO POSADAS EMERGENCY ROOM ENCOUNTER Page 2 of 2 LCN: ERC DSC: 12/27/2003 [place], [place] Name: MR#: : Admit Date: MINO POSADAS -33 1990 12/27/2003 Doctor: RANJITH DIAZ MD EMERGENCY ROOM ENCOUNTER Page 1 of 2 documented in this encounter Plan of Treatment Not on filedocumented as of this encounter Visit Diagnoses Not on filedocumented in this encounter
== END 2022-03-07 14:53 | disposition home or self-care (01) ==
LOC: US 14:53
PROVIDERS: Visit Provider Obstetrics & Gynecology
DX: O09.813 Supervision of pregnancy resulting from assisted reproductive technology, third trimester (principal); Z3A.33 33 weeks gestation of pregnancy
CPT/HCPCS: 76816

== ENCOUNTER 2022-03-20 09:59 | Outpatient (CLI) | payer OTHER, SELFPAY ==
--- OUTSIDE RECORDS SUMMARY | 2022-03-20 10:01 | XMS_ITS | Clinical Summary ---
:1990 Author Organization [facility] Address [address] [place] [address] Care Team Providers Name Role Phone Found, [...] for each transition of care or referral. [facility] Allergies Active Allergy Reactions Severity Noted Date [...] 11/23/2001, 10/15/2001 Influenza IIV4 (Quadrivalent) 0.5mL 03/18/2019 (87068) MCV4 (Menactra) 09/07/2007 MMR 11/23/2001 TDAP (ADACEL) [...] 72.1 kg (159 lb) 05/20/2019 4:12 PM LABORATORY COORDINATOR Height 172.7 cm (5' 8) 03/18/2019 3:47 PM LABORATORY COORDINATOR Body Mass Index 24.18 03/18/2019 3:47 PM LABORATORY COORDINATOR Plan of Treatment Health Maintenance Due Date [...] Effective Phone Address T ype Group Dates [facility] [id number] 2020-Pr [phone] Comp INSURANCE WC INSURANCE WC esent [phone] SEAMUS YANG [address] MEDICA MEDICA CHOICE [id number] 2018-Pre Com mercial sent Hellen Sigala Personal/Family Self [phone] [phone] Otilia DIANA (Work) [address] Hellen Sigala Workers Comp Self [phone] [phone] Otilia DIANA (Work) [address] Care Teams Website Admin Relationship Specialty Start Date End Date Found, No Pcp, PCP - General 05/02/15 [address] [place] [address]
--- OUTSIDE RECORDS SUMMARY | 2022-03-20 10:01 | XMS_ITS | Encounter Summary ---
:1990 Author Organization [facility] Address [address] [place] [address] Care Team Providers Name Role Phone Found, No Pcp MD Primary Care Provider Unavailable Reason for Visit Reason Comments Post Visit Follow Up Encounter Details Date Type Department Care Team Description 11/14/2018 Nurse Triage [place] Nurse [place] [address] [facility] [address] [place] [address] [facility] [phone] [place] [address] (Wo rk) Social History Tobacco [...] used: RECENT MEDICAL VISIT FOR ILLNESS FOLLOW-UP [id number] Problem list reviewed as related to this call. documented in this encounter Plan of Treatment Not on filedocumented as of this encounter Visit Diagnoses Not on filedocumented in this encounter Care Teams Streetcar Conductor Relationship Specialty Start Date End Date Found, No Pcp, PCP - General 05/02/15 [address] [place] [address] documented as of this encounter
--- OUTSIDE RECORDS SUMMARY | 2022-03-20 10:01 | XMS_ITS | Encounter Summary ---
:1990 Author Organization [facility] Address [address] [place], [place] [address] [place] [address] Care Team Providers Name Role Phone Brisa Smith PA-C Primary Care Provider Reason for Visit Reason Comments Patient Calling Back Encounter Details Date Type Department Care Team Description 09/15/2012 Telephone [facility] Jasmin Whitmore Patient Calling Back [address] [place] [address] Social History Tobacco Use [...] CDT Left message for patient to call [phone] and ask for nurse triage for lab [...] on filedocumented in this encounter Care Teams Start Up Specialist Relationship Specialty Start Date End Date Brisa Smith PA-C PCP - General 07/30/10 04/18/15 [address] [place] [address] documented as of this encounter
--- OUTSIDE RECORDS SUMMARY | 2022-03-20 10:01 | XMS_ITS | Encounter Summary ---
:1990 Author Organization [facility] Address [address] [place] [address] Care Team Providers Name Role Phone Found, No Pcp Primary Care Provider Unavailable Reason for Visit Reason Comments IUD Removal Encounter Details Date Type Department Care Team Description 05/20/2019 Office Visit [facility], Encounter for removal Services-TOBACCO SPRAYER Josephine Bingham MD of intrauterine [address] [place] [address] [address] (Primary Dx) [place] [address] [phone] Social History Tobacco Use Types Packs/Day Years Used Date Smoking Tobacco: Never Smokeless Tobacco: Never Alcohol Use Standard Drinks/Week Comments Yes 2.8 (1 standard drink = 0.6 oz pure alco hol) Sex Assigned at Date Recorded Not on file documented as of this encounter Last Filed Vital Signs Vital Sign Reading Time Taken Comments Blood Pressure 126/63 05/20/2019 4:12 PM TOBACCO CHECKOUT CLERK Pulse 62 05/20/2019 4:12 PM TOBACCO CHECKOUT CLERK Temperature - - Respiratory Rate - - Oxygen Saturation - - Inhaled Oxygen Concentration - - Weight 72.1 kg (159 lb) 05/20/2019 4:12 PM TOBACCO CHECKOUT CLERK Height - - Body Mass Index 24.18 03/18/2019 3:47 PM TOBACCO CHECKOUT CLERK documented in this encounter Progress Notes Josephine [...] clinic with positive UPT. Josephine Prater MD CCO CHECKOUT CLERK documented in this encounter Plan of Treatment Not on filedocumented as of this encounter Visit Diagnoses Diagnosis Encounter for removal of intrauterine co ntraceptive device - Primary documented in this encounter Care Teams Plater Production Relationship Specialty Start Date End Date Found, No PcpMD PCP - General 05/02/15 [address] [place] [address] documented as of this encounter
--- OUTSIDE RECORDS SUMMARY | 2022-03-20 10:01 | XMS_ITS | Encounter Summary ---
:1990 Author Organization [facility] Address [address] [place] [address] Care Team Providers Name Role Phone Found, No Pcp MD Primary Care Provider Unavailable Reason for Visit Reason Comments PAIN, MOUTH Encounter Details Date Type Department Care Team Description 11/13/2018 Hospital Encounter [facility] Eber Reyes, Dental infection Care [place] [address] [address] [facility] [phone] [place], [place] [id number] Social History Tobacco Use Types Packs/Day Years [...] your doctor if you can take an znlx-gxr-nmjjvnj medicine. ?? Take your antibiotics as directed. Do not stop taking them just because you feel better. You needto take the full course of antibiotics. To prevent tooth abscess ?? [place] and floss every day, and have regular [...] can you learn more? 1. Go to https://Zimbra.Promimic/Elevaatelibrary or Tectura/Boston Technologieslibrary. 2. Enter L466 in the search box. Current as of: January 28, 2018 Content Version: 12.0 ?? [id number] [facility]. Care instructions adapted under license by your healthcare professional. If you have questions about a medical condition or this instruction, always ask your healthcare professional. [employer] disclaims any warranty or liability for your [...] medical conditions. Adverse Drug Reactions: Reviewed in [facility] Penicillins and Sulfa antibiotics Medications: Reviewed in [facility] No current facility-administered medications for this [...] Tablet 0 Past Medical History: Reviewed in [facility] Past Medical History: Diagnosis Date ??? Varicella OBJECTIVE: Vital Signs: Reviewed in [facility] Filed Vitals: 11/13/18 0806 BP: 112/69 [...] Lymph: No submandibular or cervical supply chain coordinator [place]. Cardiac: rrr. ASSESSMENT: 1. Dental infection [...] worse. documented in this encounter Care Teams Bin Cleaner Relationship Specialty Start Date End Date Found, No Pcp, PCP - General 05/02/15 [address] [place] [address] documented as of this encounter
--- OUTSIDE RECORDS SUMMARY | 2022-03-20 10:01 | XMS_ITS ---
[...] for solution Active ? Not available Inject 53296 units as needed by intramuscular route. clomiphene [...] av ailable Notes: Normal 04/28/2011 Extraction of [place] Tooth Information n ot available 04/28/1998 Tonsilectomy/adenoids Information not av ailable 08/01/2020 US, Transvaginal Na494_frmusttbr_adwt a [address] [place] [address] (Work Place) 08/10/2020 US, Ovary, for Follicular Monitoring Cc0 04_[place] [address] [place] [address] (Work Place) 08/29/2020 US, Ovary, for Follicular Monitoring Cc0 04_[place] [address] [place] [address] (Work Place) 09/07/2020 US, Ovary, for Follicular Monitoring Cc0 04_[place] [address] [place] [address] (Work Place) 09/27/2020 US, Ovary, for Follicular Monitoring Cc0 04_[place] [address] [place] [address] (Work Place) 10/04/2020 US, Ovary, for Follicular Monitoring Cc0 04_[place] [address] [place] [address] (Work Place) 10/11/2020 US, Ovary, for Follicular Monitoring Cc0 04_[place] [address] [place] [address] (Work Place) 11/01/2020 US, Ovary, for Follicular Monitoring Cc0 04_[place] [address] [place] [address] (Work Place) 12/29/2020 US, Ovary, for Follicular Monitoring Cc0 04_[place] [address] [place] [address] (Work Place) 01/08/2021 US, Ovary, for Follicular Monitoring Cc0 04_[place] [address] [place] [address] (Work Place) Results Lab Results Date Name Specimen Result Interpretation Description Value Range Status Address ? 03/29/2021 Cytology ? Interpretation nilm ? Fi nal [facility]: Report, [address] , Smear or [place], Cervical or Vaginal ? ? ? Category: nil ? Final [facility]: [address] [facility] ? ? ? Adequacy: secni ? Final [facility]: [address] [facility] ? ? ? Clinician comment ? Final [facility]: Provided ICD10: 3 [address] [facility] ? ? ? Performed by: comment ? Final L [facility]: [address] [facility] ? ? ? Note: comment ? Final [facility]: [address] [facility] ? ? ? Test comment ? Final [facility]: Methodology: [address] [place] [address] ? ? ? HPV Aptima negative negative Final L [facility]: [address] [facility] 09/15/2020 Progesteron ? Progesterone, 10.6 ? Complete John e, Serum Serum NG/mL [facility] - Lab: [address], [place] 07/04/2020 Extra Tube ? Note ? ? Complete John [facility] (Lab [facility]) Health - Lab: [address], [place] 07/04/2020 Estradiol, ? Estradiol, 44.7 ? Comp lete [place] Serum Serum pg/mL [facility] - Lab: [address], [place] 07/04/2020 Prolactin, ? Prolactin, 8.7 NG/mL ? C omplete [place] Serum Serum [facility] - Lab: [address], [place] 07/04/2020 FSH ? FSH, Serum 6.9 ? Complete John (Follicle-s mIU/mL [facility] - Hormone), Lab: [address], [place] 07/04/2020 Lh ? Lutenizing 3.0 ? Complete Jonh (Luteinizin Hormone (LH) mIU/mL [facility] Hormone), [facility] - Serum Lab: [address], [place] 07/04/2020 Thyroid ? Tsh 0.887 0.358-3.7 Complete John Rhea, uIU/mL 40 uIU/mL [facility] Serum Health - Lab: [address], [place] 07/04/2020 Rubella ? Rubella Immune immune immune Com plete [place] Virus IgG Status Reported [facility] Ab, QL, Health - Serum Lab: [address], [place] 07/04/2020 Anti-cervantes ? Antimullerian 3.9 NG/mL 0.58 -8.1 [facility] Hormone Hormone (Amh), S NG/mL [facility] (Amh), [facility] - Serum Lab: [address], [place] ? ? Result UPT negative ? ? Lf583_rdlctz Test, Urine ale_b urnsvil le: [address] [facility] [address] [facility] [place] ? ? Result UPT negative ? ? Tz451_alnyyp Test, Urine ale_b urnsvil le: [address] [facility] [address] [facility] [place] ? ? Result UPT negative ? ? Dn960_kedymq Test, Urine ale_e maria alejandra: [address] , [place] Past Encounters 03/29/2021 Gynecologic Examination Rohini Major CNM: 305 [facility] Ze al, [address] [address], Ph. 01/10/2021 Female Infertility; Artificial Inseminat joshua García MD: 305 [facility] You, [address] [address], Ph. 01/09/2021 Laura Sky MD: [address], [address] [place] [address], Ph. 01/08/2021 Female Infertility Laura Sky MD: [address]anda, [address] [address], Ph. 01/08/2021 Fertility Problem Laura Sky MD: [address]anda, [address] [address], Ph. 12/29/2020 Primary Infertility Laura Sky MD: [address], [address], [place] [address], Ph. 12/29/2020 Female Infertility Laura Sky MD: [address], [address], [place] [address], Ph. 11/01/2020 Fertility Problem EZEKIEL Conner: [address] [place] [address], [facility], [place] [address], Ph. 11/01/2020 Fertility Problem Yamilex Juarez MD: [address] , [address] [address], Ph. 10/12/2020 Artificial Insemination Kirti Lang DANIEL: [address], [address] [place] [address], Ph. 10/11/2020 Female Infertility Kitri Lang DANIEL: [address], Suite [facility], [place] [address], Ph. 10/11/2020 Fertility Problem Yamilex Juarez MD: [address], [address] [place] [address], Ph. 10/04/2020 Female Infertility Kirti Lang DANIEL: [address], [address], [place] [address], Ph. 10/04/2020 Fertility Problem Yamilex Juarez MD: [address], [address] [place] [address], Ph. 09/27/2020 Female Infertility Kirti Lang DANIEL: [address], [address] [address], Ph. 09/27/2020 Fertility Problem Azul Holt MD: [address] [facility], [address], [place] [address], Ph. Social History Tobacco Smoking Status Never [...] on CD 1 2 or CD 13 Reminders Provider Appointments None recorded. ? ? [...]
--- OUTSIDE RECORDS SUMMARY | 2022-03-20 10:01 | XMS_ITS | Encounter Summary ---
:1990 Author Organization [facility] Address [address] [place] [address] Care Team Providers Name Role Phone Found, No Pcp MD Primary Care Provider Unavailable Reason for Visit Reason Comments Annual Exam Encounter Details Date Type Department Care Team Description 03/18/2019 Office Visit [facility] (Primary Dx); Services-DISTILLERY MANAGER Josephine Bingham MD Screening for cervical cancer; [address] [place] [address] for influenza vaccination; [address] Vaginal itching; [place], [place] Encounter for preconception consultation [phone] Social History Tobacco Use Types Packs/Day Years Used Date Smoking Tobacco: Never Smokeless Tobacco: Never Alcohol Use Standard Drinks/Week Comments Yes 2.8 (1 standard drink = 0.6 oz pure alco hol) Sex Assigned at Date Recorded Not on file documented as of this encounter Last Filed Vital Signs Vital Sign Reading Time Taken Comments Blood Pressure 117/62 03/18/2019 3:47 PM PEOPLESOFT CRM DEVELOPER Pulse 74 03/18/2019 3:47 PM PEOPLESOFT CRM DEVELOPER Temperature - - Respiratory Rate - - Oxygen Saturation - - Inhaled Oxygen Concentration - - Weight 71.5 kg (157 lb 9.6 oz) 03/18/2019 3:47 PM PEOPLESOFT CRM DEVELOPER Height 172.7 cm (5' 8) 03/18/2019 3:47 PM PEOPLESOFT CRM DEVELOPER Body Mass Index 23.96 03/18/2019 3:47 PM PEOPLESOFT CRM DEVELOPER documented in this encounter Patient Instructions Patient [...] is more common in people of Ashkenazi Baptist, Macedonian-Georgian, or Cajun backgrounds. ?? Diseases that occur more often in people of Ashkenazi Baptist background. These include: ? Alexey-Sachs disease. ? Manpreet disease. ? Familial dysautonomia. ? Cystic fibrosis. ? Fanconi anemia group C. ? Geoffrey-Pick disease type A. ? Mucolipidosis IV. ? Deutsch syndrome. ? Gaucher's disease. Should you be tested? Certain genetic conditions are more common in certain ethnic groups. People who are or of , Ashkenazi Baptist, Southeast , Macedonian-Georgian, or Mediterranean background may want to think about genetic testing to find out if they have or are a carrier of a genetic condition that they could pass on to their child. Certain genetic conditions are more common in these ethnic groups. Some close-knit druze communities also have higher rates of certain [...] can you learn more? 1. Go to https://InvertirOnline.com.Silicium Energy/healthlibrary or FlatStack/DentLightraTalbot Holdings. 2. Enter Q084 in the search box. Current as of: July 27, 2018 Content Version: 12.2 ?? 8623-1185 Healthwise, Incorporated. Care instructions adapted under license by your healthcare professional. If you have questions about a medical condition or this instruction, always ask your healthcare professional. Smarter[employer] disclaims any warranty or liability for your use of this information. Learning About Planning for Future How can you plan for ? Even before you get , you can help make your as healthy as possible. Take these steps: ?? See a doctor or certified nurse-configuration management specialist for an exam. Talk about the medicines, [...] And it can help your doctor or configuration management specialist figure out when your baby isdue and how it is growing. ?? Make healthy choices. Eat well. Avoid caffeine. Or cut back and only have 1 cup of coffee or tea a day. Avoid alcohol, cigarettes, and illegal drugs. Take only the medicines your doctor or configuration management specialist says are okay. ?? Get plenty of [...] an appointment with your doctor or certified nurse-configuration management specialist. Your first visit will provide information that can be used to check for any problems asyour progresses. Where can you learn more? 1. Go to https://The Roberts Group/Evestrarary or FlatStack/DentLightraTalbot Holdings. 2. Enter R938 in the search box. Current as of: September 23, 2018 Content Version: 12.2 ?? 5006-2640 Smarterphone. Care instructions adapted under license by your healthcare professional. If you have questions about a medical condition or this instruction, always ask your healthcare professional. [employer]arterphone disclaims any warranty or liability for your use of this information. LESOFT CRM DEVELOPER documented in this encounter Progress Notes Josephine [...] that they are planning a trip to [place] in May and would like to potentially conceive during the trip. She is wondering about the timing of when she should take it out given this. Assistant Site Manager History: Menses: Rare and irregular with Mirena in place. Prior to IUD they were heavy. Contraception: Mirena IUD Pap: Last Pap NIL in 08/2017 in [place]. Records not available Sexual activity: Active with [...] ok with -Reviewed plans for travel to [place] and discuss this in the context of [...] were spent in discussion of preconception counseling LESOFT CRM DEVELOPER documented in this encounter Plan of Treatment Not on filedocumented as of this encounter Procedures Procedure Name Priority Date/Time Associated Diagnosis Comme nts VAGINITIS PANEL Routine 03/18/2019 4:45 PM Vaginal itching Res ults for this PEOPLESOFT CRM DEVELOPER procedure are i n the results section. documented in this encounter Results Vaginitis Panel, DNA Probe (03/18/2019 4:45 PM PEOPLESOFT CRM DEVELOPER) [facility] gist Method Time Signature Gardnerella Negative Negative 03/19/2019 [place] vaginalis 4:43 PM PEOPLESOFT CRM DEVELOPER [facility] [place] species Negative Negative 03/19/2019 [place] 4:43 PM [employer]FT [employer] [facility] Trichomonas Negative Negative 03/19/2019 [place] vaginalis 4:43 PM [employer]OPLESOFT CRM [facility]EL[facility] Specimen Anatomical Collection Method Collection Time Receive d Time (Source) Location / / Volume Laterality Swab (Source SPECIMEN FROM Non-blood 03/18/2019 4:45 PM 03/18/20 19 4:46 Required) VAGINA / Unknown Collection / PEOPLESOFT CRM DEVELOPER PM PEOPLESOFT CRM DEVELOPER Unknown Josephine Prater MD LAB_1 Performing Organization Address City/State/ZIP Code Phon e Number [facility] [address] [place] [address] documented in this encounter Visit Diagnoses Diagnosis Preventative health care - Primary Routine general medical examination at a health care facility Screening for cervical cancer Screening for malignant neoplasm of the cervix Need for influenza vaccination Need for prophylactic vaccination and in oculation against influenza Vaginal itching Pruritus of genital organs Encounter for preconception consultation documented in this encounter Care Teams Preparing Box Tender Relationship Specialty Start Date End Date Found, No Pcp, PCP - General 05/02/15 [address] [place] [address] documented as of this encounter
--- OUTSIDE RECORDS SUMMARY | 2022-03-20 10:01 | XMS_ITS | Encounter Summary ---
:1990 Author Organization [facility] Address [address] [place] [address] Care Team Providers Name Role Phone Found, No Pcp MD Primary Care Provider Unavailable Reason for Visit Reason Comments FOREIGN BODY, EYE Encounter Details Date Type Department Care Team Description 01/20/2020 Hospital Encounter [facility] Esquivel Abrasi on of right [facility] cornea, initial Care [address] [address] [place] [phone] Social History Tobacco Use Types Packs/Day Years [...] your doctor if you can take an quff-bei-qowsllq medicine. ? Do not take two or [...] can you learn more? 1. Go to https://North Asia Resources/Xangati or PlayMob/Hitlab. 2. Enter G403 in the search box. Current as of: April 13, 2019?Content Version: 12.4 ?? HUYA Bioscience International. Care instructions adapted under license by your healthcare professional. If you have questions abouta medical condition or this instruction, always ask your healthcare professional. [employer] International disclaims any warranty or liability for your [...] Not on file Occupational History ??? 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 [...] file Gets together: Not on file Attends evangelical service: Not on file Active member of [...] No Social History Narrative Recently graduated from [employer] in civil engineering. 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 She is currently dating. Adverse Drug Reactions: [...] your doctor if you can take an aceo-vlj-xyxabmm medicine. ? Do not take two or [...] can you learn more? 1. Go to https://WSI Onlinebiz.Cardiac Concepts/healthlibrary or PlayMob/Pioneticslibrary. 2. Enter G403 in the search box. Current as of: April 13, 2019?Content Version: 12.4 ?? 3085-8603 [employer] International. Care instructions adapted under license by your healthcare professional. If you have questions about a medical condition or this instruction, always ask your healthcare professional. [employer] International disclaims any warranty or liability for your [...] eye documented in this encounter Care Teams Watch Parts Inspector Relationship Specialty Start Date End Date Found, No Pcp, PCP - General 05/02/15 [address] [place] [address] documented as of this encounter
--- OUTSIDE RECORDS SUMMARY | 2022-03-20 10:01 | XMS_ITS | Encounter Summary ---
:1990 Author Organization [facility] Address [address] [place] [address] Care Team Providers Name Role Phone Found, No Pcp MD Primary Care Provider Unavailable Reason for Visit Reason Comments Forms outside records-[place], [place] Encounter Details Date Type Department Care Team Description 03/19/2019 Care Coord [facility] Hieronimus, Forms (ou tside Documentation Services-COMPUTATIONAL CHEMIST Josephine Bingham MD records-[facility] [address] [place] [address], [address]) [place] [address] [phone] Social History Tobacco Use Types Packs/Day Years [...] fax, placed on provider desk for review. TAL PROJECT ENGINEER documented in this encounter Plan of Treatment Not on filedocumented as of this encounter Visit Diagnoses Not on filedocumented in this encounter Care Teams Internist Relationship Specialty Start Date End Date Found, No Pcp, PCP - General 05/02/15 [address] [place] [address] documented as of this encounter
--- OUTSIDE RECORDS SUMMARY | 2022-03-20 10:02 | XMS_ITS | Encounter Summary ---
:1990 Author Organization [facility] Address [address] [place] [address] Care Team Providers Name Role Phone Brisa Smith PA-C Primary Care Provider Encounter Details Date Type Department Care Team Description 09/07/2007 PN Conversion Only [place] CONVERSION Brisa Smith, [address] [place] [address] [place], [place] [address] (Wo rk) Social History [...] Complete Blood Count-W/Diff (09/07/2007 2:12 PM CDT) [facility] Method Time Signature White Blood Cell [...] - HP CONVERSION Hemoglobin Conc 36.5 gm/dL [place] RDW 12.6 11.0 - HP CONVERSION 15.0 [...] Brisa Smith PA-C LAB_1 Performing Organization Address City/[facility]/ZIP Code Phon e Number HP CONVERSION [...] Specific 1.015 1.005 - 25 HP CONVERSION [place] Specimen (Source) Anatomical Collection Method Collection Time Re ceived Time Location / / Volume Laterality 09/07/2007 2:12 PM CDT Brisa Smith PA-C LAB_1 Performing Organization Address City/[facility] Phon e Number HP CONVERSION Urinalysis Microscopic (09/07/2007 2:12 PM CDT) [facility] Method Time Signature White Blood 0-2/HPF 0 - 3 HP CONVERSION Cells Urine Red Blood Cells Negative 0 - 2 HP CONVERSION Urine Epithelial Few Few /HPF HP CONVERSION Cells Crystals Amorph None HP CONVERSION Specimen (Source) Anatomical Collection Method Collection Time Re ceived Time Location / / Volume Laterality 09/07/2007 2:12 PM CDT Brisa Smith PA-C LAB_1 Performing Organization Address City/[facility] Phon e Number HP CONVERSION documented in this encounter Visit Diagnoses Not on filedocumented in this encounter Care Teams Oliver Filter Operator Relationship Specialty Start Date End Date Brisa Smith PA-C PCP - General 07/30/10 04/18/15 [address] [place] [address] documented as of this encounter
--- OUTSIDE RECORDS SUMMARY | 2022-03-20 10:02 | XMS_ITS | Encounter Summary ---
:1990 Author Organization [facility] Address [address] [place] [address] Care Team Providers Name Role Phone Brisa Smith PA-C Primary Care Provider Reason for Visit Reason Comments Annual Exam Ear Pain Encounter Details Date Type Department Care Team Description 09/02/2011 Office Visit [facility] Jasmin Crystal p hysical exam (Primary Dx); Medicine K Screening for malignant neop lasm of the cervix; [address] [address]. Depression, major, recurrent ; [place], [place] Screening for STDs (sexually transmitted diseases); [address] Contraceptive management; [phone] Need vaccinatio n-viral disease; Vacc for viral [...] HI. Denies recent life changes or stressors. 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 Social History Main Topics ??? Smoking [...] History Narrative Currently home from college. Attends [place] [employer] will be a senior next fall studying [...] adenopathy. Pelvic: Normal external genitalia and urethra. [place], moist vaginal and cervical mucosa, without lesions. [...] Component Value Ref Test Analysis Performed At [facility] gist Range Method Time Signature [...] The amplified DNA assay is cleared by [facility] for non-medicolegal diagnostic testing in [facility] adult population. Neisseria gonorrhea DNA Probe ?FINAL ? 09/04/11 10:24 Neisseria gonorrhea NEGATIVE by DNA amp lification. The amplified DNA assay is cleared by [facility] for non-medicolegal diagnostic testing in [facility] adult population. Specimen (Source) Anatomical Collection Method [...] CDT Final GYNECOLOGICAL CYTOLOGY REPORT Pathology #: [id number] ?Date Obtained: 09/02/2011 ? Date Received: 09/03/2011 [...] may occur. ? End of Report Jasmin Crysatl LAB_1 Performing Organization Address City/State/ZIP Code Phon e Number HP CONVERSION Pap Smear Screening (09/02/2011 9:45 AM CDT) P athologist Signature PAP Routine Collected HP CONVERSION Specimen (Source) Anatomical Collection Method Collection Time Re ceived Time Location / / Volume Laterality 09/02/2011 9:45 AM CDT Jasmin [place] LAB_1 Performing Organization Address City/[facility] Phon e Number HP CONVERSION [...] unspecified documented in this encounter Care Teams Conservation Science Teacher Relationship Specialty Start Date End Date Brisa Smith PA-C PCP - General 07/30/10 04/18/15 [address] [place] [address] documented as of this encounter
--- OUTSIDE RECORDS SUMMARY | 2022-03-20 10:02 | XMS_ITS | Encounter Summary ---
:1990 Author Organization [facility] Address [address] [place] [address] Care Team Providers Name Role Phone Brisa Smith PA-C Primary Care Provider Encounter Details Date Type Department Care Team Description 09/02/2008 Office Visit Rocio Griffiths MBBS [facility] [address] [place] [address] [place] [address] [place] [address] [phone] (Wo rk) Social History Tobacco Use Types [...] Service: (none) Author Type: Physician Filed: 08/18/10 0829 Note Time: 09/02/082016 Status: Signed Oceanography Teacher: ZAK Giles (Physician) SUBJECTIVE: 17-year-old patient with [...] on filedocumented in this encounter Care Teams Dermatologist Managing Partner Relationship Specialty Start Date End Date Brisa Smith PA-C PCP - General 07/30/10 04/18/15 [address] [place] [address] documented as of this encounter
--- OUTSIDE RECORDS SUMMARY | 2022-03-20 10:02 | XMS_ITS | Encounter Summary ---
:1990 Author Organization [facility] Address [address] [place] [address] Care Team Providers Name Role Phone Brisa Smith PA-C Primary Care Provider Encounter Details Date Type Department Care Team Description 11/02/2009 Office Visit [facility] [place] [place] [id number] [place] [address] Social History Tobacco Use Types Packs/Day [...] - documented in this encounter Progress Notes iNraj Dawson MD - 11/02/2009 12:01 AM CDT Progress Notes signed by Niraj Dawson MD at 11/05/092119 Author: Niraj Dawson MD Service: (none) Author Type: Physician Filed: 08/19/10 0135 Note Time: 11/02/09 0001 Status: Signed Siene Maker: Niraj Dawson MD (Physician) NAME: MINO POSADAS MR#: [id number] ACCT: [id number] VISIT: [id number] DICTATING CLINICIAN: Niraj Dawson MD CONFIRM #: [id number] LOC: 520 CLINIC PROGRESS NOTE DATE OF VISIT: 11/02/2009 SUBJECTIVE: : 1990. Patient is a 19-year-old here with chief complaint of sore throat, cough, ear pain. 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 who comes in with a sore throat, [...] for evaluation of her upper respiratory problem. [id number] C: 11/03/09 13:44 CONFIRM #: [id number] documented in this encounter Plan of Treatment Not on filedocumented as of this encounter Visit Diagnoses Not on filedocumented in this encounter Care Teams Pulverizer Tender Relationship Specialty Start Date End Date Brisa Smith PA-C PCP - General 07/30/10 04/18/15 [address] [place] [address] documented as of this encounter
--- OUTSIDE RECORDS SUMMARY | 2022-03-20 10:02 | XMS_ITS | Encounter Summary ---
:1990 Author Organization [facility] Address [address], [place] [address] Care Team Providers Name Role Phone Lynette Smith PA-C Primary Care Provider Reason for Visit Reason Comments Other Encounter Details Date Type Department Care Team Description 11/23/2008 Telephone [facility], Message Other [address] [place] [address] Social History Tobacco Use Types Packs/Day Years Used Date Smoking Tobacco: Never Assessed Sex Assigned at Date Recorded Not on file documented as of this encounter Progress Notes Yinka Ramsey MA - 11/23/2008 9:47 AM CDT Phone Note filed by Yinka Ramsey MA at 08/17/10831 Author: Yinka Ramsey MA Service: (none) Author Type: Cigar Head Stringer Filed: 08/17/10831 Note Time: 11/23/08946 Status: Signed Asic Engineer: Yinka Ramsey MA (Cigar Head Stringer) Results of US in LW. Created on 23Nov2008 9:47am by YINKA RAMSEY On 23Nov2008 10:13am LYNETTE SMITH wrote: Please notify patien that ultrasound is normal. Acknowledged by LYNETTE SMITH on 10:13am On 23Nov2008 10:22am CHLOE QUINN wrote: LM at [phone] (# given by someone at day phone# below) for pt to call for above info. Any nurse can relay result. On 23Nov2008 10:23am ANT PANG wrote: pt is returning call. On 23Nov2008 10:43am JESSICA ISAAC wrote: results given, no further questions at this time. OR BIOINFORMATICS SCIENTIST documented in this encounter Plan of Treatment Not on filedocumented as of this encounter Visit Diagnoses Not on filedocumented in this encounter Care Teams Estate Agent Relationship Specialty Start Date End Date Lynette Smith PA-C PCP - General 07/30/10 04/18/15 [address] [place] [address] documented as of this encounter
--- OUTSIDE RECORDS SUMMARY | 2022-03-20 10:02 | XMS_ITS | Encounter Summary ---
:1990 Author Organization [facility] Address [address], [place] [address] Care Team Providers Name Role Phone Brisa Smith PA-C Primary Care Provider Encounter Details Date Type Department Care Team Description 11/02/2009 PN Conversion Only [place] [address] [facility] [address] [place], [place] [id number] [place] [address] Social History Tobacco Use Types Packs/Day Years [...] (11/02/2009 6:51 PM CDT) Analysis Performed At [facility] Time Signature Strep Group A SEE [...] filedocumented in this encounter Care Teams Manager Of Internal Relationship Specialty Start Date End Date Brisa Smith PA-C PCP - General 07/30/10 04/18/15 [address] [place] [address] documented as of this encounter
--- OUTSIDE RECORDS SUMMARY | 2022-03-20 10:02 | XMS_ITS | Encounter Summary ---
:1990 Author Organization [facility] Address [address] [place] [address] Care Team Providers Name Role Phone Brisa Smith PA-C Primary Care Provider Encounter Details Date Type Department Care Team Description 07/11/2007 Office Visit [facility] [place] [address] [place] [address] Social History Tobacco Use Types [...] 0320 Note Time: 07/11/07 0001 Status: Signed Mechanical Engineering Teacher: Roxanne Flores MD (Physician) NAME: MINO POSADAS MR#: [id number] ACCT: [id number] VISIT: [id number] DICTATING CLINICIAN: ROXANNE FLORES MD JOB: [id number] LOC: 520 CLINIC PROGRESS NOTE DATE OF [...] recommend symptomatic treatment, and recheck as needed. [id number] C: 07/13/07 12:26 DOCUMENT: [id number] documented in this encounter Plan of Treatment Not on filedocumented as of this encounter Visit Diagnoses Not on filedocumented in this encounter Care Teams Store Sales Manager Relationship Specialty Start Date End Date Brisa Smith PA-C PCP - General 07/30/10 04/18/15 [address] [place] [address] documented as of this encounter
--- OUTSIDE RECORDS SUMMARY | 2022-03-20 10:02 | XMS_ITS | Encounter Summary ---
:1990 Author Organization [facility] Address [address] [place] [address] Care Team Providers Name Role Phone Brisa Smith PA-C Primary Care Provider Reason for Visit Reason Comments Medication Questions Encounter Details Date Type Department Care Team Description 09/02/2011 Telephone [facility] Jasmin Whitmore Medication Questions [address] [place] [address] Social History Tobacco Use [...] on filedocumented in this encounter Care Teams Duct Cleaner Relationship Specialty Start Date End Date Brisa Smith PA-C PCP - General 07/30/10 04/18/15 [address] [place] [address] documented as of this encounter
--- OUTSIDE RECORDS SUMMARY | 2022-03-20 10:02 | XMS_ITS | Encounter Summary ---
:1990 Author Organization [facility] Address [address] [place] [address] Care Team Providers Name Role Phone Brisa Smith PA-C Primary Care Provider Encounter Details Date Type Department Care Team Description 11/18/2008 PN Conversion Only [facility] [address] [place] [address] Social History Tobacco Use Types Packs/Day Years [...] CDT : ??Negative right upper quadrant ultrasound. 670158/[facility] Dictating JOE MENDES Radiologist Narrative 11/18/2008 8:12 [...] : Negative right upper quadrant ultrasou [place]. 071568/[facility] Dictating JOE MENDES Radiologist Brisa Smith PA-C RAD US documented in this encounter Visit Diagnoses Not on filedocumented in this encounter Care Teams Media Technician Relationship Specialty Start Date End Date Brisa Smith PA-C PCP - General 07/30/10 04/18/15 [address] [place] [address] documented as of this encounter
--- OUTSIDE RECORDS SUMMARY | 2022-03-20 10:02 | XMS_ITS | Encounter Summary ---
:1990 Author Organization [facility] Address [address], [place] [address] Care Team Providers Name Role Phone Brisa Smith PA-C Primary Care Provider Encounter Details Date Type Department Care Team Description 07/11/2007 PN Conversion Only [facility] Roxanne Perera, [address] [place] [address] Social History Tobacco Use Types Packs/Day Years [...] Rapid Strep Follow up Culture ? Collected: ??[id number] ??[id number] Source: Throat ?Processed: ??[id number] ??1502 ? 1V Final Report ------ ?[id number] ??[id number] No beta hemolytic Strep group A isolated . Specimen (Source) Anatomical Collection Method Collection Time Re ceived Time Location / / Volume Laterality 07/11/2007 2:42 PM CDT Roxanne Serrato MD LAB_1 Performing Organization Address City/State/ZIP Code Phon e Number HP CONVERSION documented in this encounter Visit Diagnoses Not on filedocumented in this encounter Care Teams Pyridine Recovery Operator Relationship Specialty Start Date End Date Brisa Smith PA-C PCP - General 07/30/10 04/18/15 [address] [place] [address] documented as of this encounter
--- OUTSIDE RECORDS SUMMARY | 2022-03-20 10:02 | XMS_ITS | Encounter Summary ---
:1990 Author Organization [facility] Address [address] [place] [address] Care Team Providers Name Role Phone Brisa Smith PA-C Primary Care Provider Encounter Details Date Type Department Care Team Description 09/30/2007 PN Conversion Only [facility] CONVERSION Brisa Smith, [address] [address] [place], [place] [address] (Wo rk) Social History [...] on filedocumented in this encounter Care Teams Jack Frame Tender Relationship Specialty Start Date End Date Brisa Smith PA-C PCP - General 07/30/10 04/18/15 [address] [place] [address] documented as of this encounter
--- OUTSIDE RECORDS SUMMARY | 2022-03-20 10:02 | XMS_ITS | Encounter Summary ---
:1990 Author Organization [facility] Address [address] [place] [address] Care Team Providers Name Role Phone Brisa Smith PA-C Primary Care Provider Reason for Visit Reason Comments Annual Exam Encounter Details Date Type Department Care Team Description 09/08/2012 Office Visit [facility] Jasmin Crystal Routine physical examination (Primary Dx); Medicine K Screening for malignant neop lasm of the cervix; [address] [address] Screening for STDs (sexually transmitted diseases); [place], [place] Contraceptive management; [phone] Screen for STD (sexually tra nsmitted disease); [phone] Bacterial vagin itis; Vaginal yeast i nfection [...] negative Neurological ROS: negative Dermatological ROS: negative Door Trimmer History: : LMP: Patient's last menstrual period [...] Years of Education: N/A Occupational History ??? [employer]/ [employer] Social History Main Topics ??? [...] No Social History Narrative Recently graduated from [employer] in civil engineering. 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 She is currently dating. Immunizations: Immunization [...] adenopathy. Pelvic: Normal external genitalia and urethra. [place], moist vaginal and cervical mucosa, without lesions. [...] agrees with the plan, all questions answered. INE SORTER Miscellaneous - 06/07/2016 7:11 AM CSTNotes Recorded by Jasmin Crystal PA-C on 09/15/2012 at 10:43 AMPlease call patient pap smear normal, STD screen for gonorrhea/chlamydia negative INE SORTER Assessment & Plan Note - Jasmin Crystal [...] (ABNORMAL) WET PREP (09/08/2012 11:12 AM CDT) [place] Method Time Signature WETPR White Moderate HP [...] - 09/08/2012 11:31 AM CDT Performed at [facility], [address] [place] [address] Transcriptions 06/07/2016 7:24 AM CSTNotes Recorded by [...] Component Value Ref Test Analysis Performed At [place] Method Time Signature Source Endocervical for [...] CDT FINAL GYNECOLOGICAL CYTOLOGY REPORT Pathology #: [id number] ?Date Obtained: 09/08/2012 ? Date Received: 09/09/2012 [...] 09/09/2012 8:02 AM CDT AM CDT Jasmin K Josisa LAB_1 Performing Organization Address City/State/ZIP Code Phon [...] documented in this encounter Care Teams Press Loader Relationship Specialty Start Date End Date Brisa Smith PA-C PCP - General 07/30/10 04/18/15 [address] [place] [address] documented as of this encounter
--- OUTSIDE RECORDS SUMMARY | 2022-03-20 10:02 | XMS_ITS | Encounter Summary ---
:1990 Author Organization [facility] Address [address] [place] [address] Care Team Providers Name Role Phone Brisa Smith PA-C Primary Care Provider Encounter Details Date Type Department Care Team Description 08/27/2010 PN Conversion Only CONVERSION CONVERSION Lena Chiu, HAIRSPRING TRUER, SENIOR AGRICULTURAL ASSISTANT [address] [place], [place] [address] (Wo rk) Social History Tobacco Use Types Packs/Day Years Used Date Smoking Tobacco: Never Assessed Sex Assigned at Date Recorded Not on file documented as of this encounter Plan of Treatment Not on filedocumented as of this encounter Visit Diagnoses Not on filedocumented in this encounter Care Teams Real Estate Clerk Relationship Specialty Start Date End Date Brisa Smith PA-C PCP - General 07/30/10 04/18/15 [address] [place] [address] documented as of this encounter
--- OUTSIDE RECORDS SUMMARY | 2022-03-20 10:02 | XMS_ITS | Encounter Summary ---
:1990 Author Organization [facility] Address [address] [place] [address] Care Team Providers Name Role Phone Brisa Smith PA-C Primary Care Provider Encounter Details Date Type Department Care Team Description 11/02/2008 PN Conversion Only [facility] CONVERSION Brisa Smith, [address] [address] [place], [place] [address] (Wo rk) Social History [...] Helicobacter Pylori IGG (11/02/2008 11:48 AM CDT) [facility] gist Method Time Signature Helicobacter Negative Negative [...] on filedocumented in this encounter Care Teams Homicide Investigator Relationship Specialty Start Date End Date Brisa Smith PA-C PCP - General 07/30/10 04/18/15 [address] [place] [address] documented as of this encounter
--- OUTSIDE RECORDS SUMMARY | 2022-03-20 10:02 | XMS_ITS | Encounter Summary ---
:1990 Author Organization [facility] Address [address] [place] [address] Care Team Providers Name Role Phone Brisa Smith PA-C Primary Care Provider Reason for Visit Reason Comments Sinus Problem Encounter Details Date Type Department Care Team Description 04/19/2011 Office Visit [facility] Chet Pandya M D Acute pharyngitis Medicine [address] (Primary Dx) [address] [place] [phone] Social History Tobacco Use Types Packs/Day Years Used Date Smoking Tobacco: Never Assessed Sex Assigned at Date Recorded Not on file documented as of this encounter Last Filed Vital Signs Vital Sign Reading Time Taken Comments Blood Pressure 121/69 04/19/2011 9:37 AM VIRTUAL CUSTOMER ASSISTANT Pulse 87 04/19/2011 9:37 AM VIRTUAL CUSTOMER ASSISTANT Temperature 36.9 ??C (98.4 ??F) 04/19/2011 9:37 AM VIRTUAL CUSTOMER ASSISTANT Respiratory Rate 16 04/19/2011 9:37 AM VIRTUAL CUSTOMER ASSISTANT Oxygen Saturation - - Inhaled Oxygen Concentration - - Weight 70.3 kg (155 lb) 04/19/2011 9:37 AM VIRTUAL CUSTOMER ASSISTANT Height - - Body Mass Index 23.57 [...] 04/19/2011 10:19 AM R esults for this VIRTUAL CUSTOMER ASSISTANT procedure are i n the results section. RAPID STREP SCREEN Routine 04/19/2011 9:56 AM Acute pharyngiti s Results for this WAIVED VIRTUAL CUSTOMER ASSISTANT procedure are i n the results section. documented in this encounter Results Beta Strep Followup (04/19/2011 10:19 AM VIRTUAL CUSTOMER ASSISTANT) [facility] Method Time Signature Strep Screen No beta [...] / Volume Laterality Throat: 04/19/2011 10:19 AM VIRTUAL CUSTOMER ASSISTANT Chet Pandya MD LAB_1 Performing Organization Address City/State/ZIP Code Phon e Number HP CONVERSION Rapid Strep Screen Waived (04/19/2011 9:56 AM VIRTUAL CUSTOMER ASSISTANT) Component Value Ref Test Analysis Performed At [facility] Range Method Time Signature Rapid Strep [...] / Volume Laterality Throat: 04/19/2011 9:56 AM VIRTUAL CUSTOMER ASSISTANT Narrative HP CONVERSION - 04/19/2011 10:20 AM VIRTUAL CUSTOMER ASSISTANT Performed at [facility], [address] [place] [address] Chet Pandya MD LAB_1 Performing Organization Address City/State/ZIP Code Phon e Number HP CONVERSION documented in this encounter Visit Diagnoses Diagnosis Acute pharyngitis - Primary documented in this encounter Care Teams Commutator Tester Relationship Specialty Start Date End Date Brisa Smith PA-C PCP - General 07/30/10 04/18/15 [address] [place] [address] documented as of this encounter
--- OUTSIDE RECORDS SUMMARY | 2022-03-20 10:02 | XMS_ITS | Encounter Summary ---
:1990 Author Organization [facility] Address [address] [place] [address] Care Team Providers Name Role Phone Brisa Smith PA-C Primary Care Provider Encounter Details Date Type Department Care Team Description 11/16/2008 [facility] [place] [address] [address] [place], [place] [address] (Wo rk) Social History [...] Smith PA-C Service: (none) Author Type: Physician Field Technical Support Consultant Filed: 08/18/10 0242 Note Time: 11/16/08 0001 Status: Signed Hairspring Truing Inspector: Brisa Smith PA-C (Resource) Subjective: 18-year-old female [...] on filedocumented in this encounter Care Teams Tax Compliance Agent Relationship Specialty Start Date End Date Brisa Smith PA-C PCP - General 07/30/10 04/18/15 [address] [place] [address] documented as of this encounter
--- OUTSIDE RECORDS SUMMARY | 2022-03-20 10:02 | XMS_ITS | Encounter Summary ---
:1990 Author Organization [facility] Address [address] [place] [address] Care Team Providers Name Role Phone Brisa Smith PA-C Primary Care Provider Encounter Details Date Type Department Care Team Description 09/07/2007 PN Conversion Only HELENA CONVERSION [address] [place] [address] Social History Tobacco Use Types Packs/Day Years Used Date Smoking Tobacco: Never Assessed Sex Assigned at Date Recorded Not on file documented as of this encounter Plan of Treatment Not on filedocumented as of this encounter Visit Diagnoses Not on filedocumented in this encounter Care Teams Counter Manager Relationship Specialty Start Date End Date Brisa Smith PA-C PCP - General 07/30/10 04/18/15 [address] [place], [place] [address] documented as of this encounter
--- OUTSIDE RECORDS SUMMARY | 2022-03-20 10:02 | XMS_ITS | Encounter Summary ---
:1990 Author Organization [facility] Address [address], [place] [address] Care Team Providers Name Role Phone Lynette Smith PA-C Primary Care Provider Reason for Visit Reason Comments Other Encounter Details Date Type Department Care Team Description 11/15/2008 Telephone [facility] [employer] [facility], Message Other [address] [place], [place] [phone] Social History Tobacco Use Types Packs/Day Years Used Date Smoking Tobacco: Never Assessed Sex Assigned at Date Recorded Not on file documented as of this encounter [facility], Message - 11/15/2008 12:11 PM CDT Phone Note filed by [email or web address] at 08/17/10 3777 Author: [email or web address] Service: (none) Author Type: (none) Filed: 08/17/10 5592 Note Time: 11/15/08 1211 Status: Signed Stator Plate Washer: [email or web address] (Resource) Front Line Sx Call Caller Name/Relationship:ptHellen Primary Health Policy Analyst:Luis Symptom or request?Pt was earlier in the month for stomach pain, pt was given rx that is not working. Pt is still having same sx. Is appointment scheduled & when?no Workers Compensation Analyst:pt Best call back number:[phone] c Is it OK to leave a confidential message on this voicemail?yes *[id number] Created on [id number] 12:11pm by JESSICA KITCHEN On 15Nov2008 12:21pm JESSICA HERNÁNDEZ wrote: Left message to callback to [phone] and ask to speak with a nurse. [...] and agrees. Pt was transfered to scheduling. ITY ASSURANCE DIRECTOR documented in this encounter Plan of Treatment Not on filedocumented as of this encounter Visit Diagnoses Not on filedocumented in this encounter Care Teams Wood Barrel Reconditioner Relationship Specialty Start Date End Date Lynette Smith, LUIS PCP - General 07/30/10 04/18/15 [address] [address] documented as of this encounter
--- OUTSIDE RECORDS SUMMARY | 2022-03-20 10:02 | XMS_ITS | Encounter Summary ---
:1990 [facility] Organization [facility] Address [address] [place] [address] Care Team Providers Name Role Phone Brisa Smith PA-C Primary Care Provider Encounter Details Date Type Department Care Team Description 11/02/2008 Office Visit [facility] Amos e Brisa Smith PA-C [address] [place], [place] [address] [address] [place], [place] [address] (Wo rk) Social History [...] signed by Brisa Smith PA-C at 11/02/08 1207 Author: Brisa M Gastony, PA-C Service: (none) Author Type: Physician Ditching Machine Engineer Filed: 08/18/10 1626 Note Time: 11/02/08 0001 Status: Signed Iron Bender: Brisa Smith PA-C (Resource) Subjective: This is [...] anti-inflammatory medications. She is not tried any xvyl-mgu-[id number] products. Food aggravates her symptoms causing her to have some sharp discomfort in the midepigastric area. She denies heartburn, melena, or hematochezia. Past medical history: Reviewed in [employer] [facility] profile Social history: Nonsmoker Review [...] filedocumented in this encounter Care Teams Computer Systems Information Director Relationship Specialty Start Date End Date Brisa Smith PA-C PCP - General 07/30/10 04/18/15 [address] [place] [address] documented as of this encounter
--- OUTSIDE RECORDS SUMMARY | 2022-03-20 10:02 | XMS_ITS | Encounter Summary ---
:1990 Author Organization [facility] Address [address] [place] [address] Care Team Providers Name Role Phone Lynette Smith PA-C Primary Care Provider Encounter Details Date Type Department Care Team Description [facility]/07[facility] [place] [address] [address] [place], [place] [address] (Wo rk) Social History [...] Smith PA-C Service: (none) Author Type: Physician Office Machines Sales Representative Filed: 08/18/10 0546 Note Time: 09/07/07 0001 Status: Signed Barge Master: Lynette Smith PA-C (Physician Office Machines Sales Representative) NAME: MINO POSADAS MR#: [id number] ACCT: [id number] VISIT: [id number] DICTATING CLINICIAN: LYNETTE SMITH PA-C JOB: [id number] LOC: 1702 CLINIC PROGRESS NOTE DATE OF VISIT: 09/07/2007 SUBJECTIVE: Mino is 17 years old and presents to the clinic today for a sports physical and immunization update. She will be attending [employer] next year. She will also be on the track team. TRANSFER STATION ATTENDANT HISTORY: Periods are currently regular, not sexually [...] cardiac or cancer. SOCIAL HISTORY: She attends [employer]. Does not smoke, drink alcohol, or use [...] or problems. IMPRESSION: Routine health maintenance examination. TMG:[id number] C: 09/09/07 14:31 DOCUMENT: [id number] documented in this encounter Plan of Treatment Not on filedocumented as of this encounter Visit Diagnoses Not on filedocumented in this encounter Care Teams Drosser Relationship Specialty Start Date End Date Lynette Smith PA-C PCP - General 07/30/10 04/18/15 [address] [place] [address] documented as of this encounter
--- OUTSIDE RECORDS SUMMARY | 2022-03-20 10:02 | XMS_ITS | Encounter Summary ---
:1990 Author Organization [facility] Address [address] [place] [address] Care Team Providers Name Role Phone Brisa Smith PA-C Primary Care Provider Encounter Details Date Type Department Care Team Description 04/19/2011 Lab Visit [facility] Acute pharyngitis [address] [place] [address] Social History Tobacco Use Types Packs/Day Years Used Date Smoking Tobacco: Never Assessed Sex Assigned at Date Recorded Not on file documented as of this encounter Plan of Treatment Not on filedocumented as of this encounter Procedures Procedure Name Priority Date/Time Associated Diagnosis Comme nts COMPLETE BLOOD Routine 04/19/2011 10:33 Acute pharyngitis Resu lts for this COUNT-W/DIFF AM OTR REFRIGERATED CDL TRUCK DRIVER procedure are i n the results section. DIFFERENTIAL Routine 04/19/2011 10:33 Results for this AM OTR REFRIGERATED CDL TRUCK DRIVER procedure are i n the results section. VENIPUNCTURE (THALIA) Routine 04/19/2011 Results for this procedure are i n the results section. documented in this encounter Results Differential (04/19/2011 10:33 AM OTR REFRIGERATED CDL TRUCK DRIVER) P athologist Signature Absolute 4.5 1.8 - [...] / Volume Laterality 04/19/2011 10:33 04/19/2011 AM OTR REFRIGERATED CDL TRUCK DRIVER 10:33 AM OTR REFRIGERATED CDL TRUCK DRIVER Narrative HP CONVERSION - 04/19/2011 10:36 AM OTR REFRIGERATED CDL TRUCK DRIVER Performed at [facility], [address] [place], [place] [address] Norberto Pandya MD LAB_1 Performing Organization Address [facility] Phon e Number HP CONVERSION (ABNORMAL) Hemogram/Plts/Diff (04/19/2011 10:33 AM OTR REFRIGERATED CDL TRUCK DRIVER) [facility] gist Method Time Signature White [...] / Volume Laterality 04/19/2011 10:33 04/19/2011 AM OTR REFRIGERATED CDL TRUCK DRIVER 10:33 AM OTR REFRIGERATED CDL TRUCK DRIVER Narrative HP CONVERSION - 04/19/2011 10:36 AM OTR REFRIGERATED CDL TRUCK DRIVER Performed at [facility], [address] [place], [place] [address] Norberto Pandya MD LAB_1 Performing Organization Address [facility] Phon e Number HP CONVERSION VENIPUNCTURE (THALIA) (04/19/2011) athologist Signature Venipuncture Done HP CONVERSION Specimen (Source) Anatomical Location Collection Method / Collectio n Time Received Time / Laterality Volume 04/19/2011 04/19/2011 Narrative HP CONVERSION - 04/19/2011 10:33 AM OTR REFRIGERATED CDL TRUCK DRIVER Performed at [facility], [address] [place], [place] [address] Norberto Pandya MD LAB_1 Performing Organization Address [facility] Phon e Number HP CONVERSION documented in this encounter Visit Diagnoses Diagnosis Acute pharyngitis documented in this encounter Care Teams Nurse Consultant Relationship Specialty Start Date End Date Brisa Smith PA-C PCP - General 07/30/10 04/18/15 [address] [place] [address] documented as of this encounter
--- OUTSIDE RECORDS SUMMARY | 2022-03-20 10:02 | XMS_ITS | Encounter Summary ---
:1990 Author Organization [facility] Address [address] [address] Care Team Providers Name Role Phone Brisa Smith PA-C Primary Care Provider Reason for Visit Reason Comments Other Encounter Details Date Type Department Care Team Description 11/02/2008 Telephone [facility], Message Other [address] [place], [place] [address] Social History Tobacco Use Types Packs/Day Years Used Date Smoking Tobacco: Never Assessed Sex Assigned at Date Recorded Not on file documented as of this encounter [facility], Message - 11/02/2008 10:32 AM CDT Phone Note filed by olook at 08/17/1051 Author: olook Service: (none) Author Type: (none) Filed: 08/17/10 0651 Note Time: 11/02/08 103 Status: Signed Microbiology Soil Scientist: olook (Resource) Front Line Sx Call Caller Name/Relationship:Hellen Primary Greaser Helper: Symptom or request? sores in mouth/under tongue since Friday, tongue feels swollen Is appointment scheduled & when? Binding Folder Machine:Hellen Best call back number:[phone] Is it OK to leave a confidential message on this voicemail? h *ECODE~[id number] Created on 02Nov2008 10:32am by BHARATHI DESHPANDE K On [id number] 10:58am CAROLYN BROWN wrote: CLINICIAN FOLLOW-UP: FYI (note is complete). IMPRESSION: mouth sores/? Kyge-Ivno-xoj-Mouth Disease. SYMPTOMS: Pt is 18 yr old [...] medical record. CARE ADVICE: Care Advice REASSURANCE: Emsu-fkqf-wxrqg disease is a harmless viral rash. LIQUID [...] denies additional questions. References Used: Pediatric Telephone Protocols--Ktpf-Reea-lwo-Mouth Disease. Call Complete. *SH~BS~HANDFOOTMTH ~ ROPOLOGY AND ARCHEOLOGY INSTRUCTOR documented in this encounter Plan of Treatment Not on filedocumented as of this encounter Visit Diagnoses Not on filedocumented in this encounter Care Teams Meteorology Teacher Relationship Specialty Start Date End Date Brisa Smith PA-C PCP - General 07/30/10 04/18/15 [address] [place] [address] documented as of this encounter
--- OUTSIDE RECORDS SUMMARY | 2022-03-20 10:02 | XMS_ITS | Encounter Summary ---
:1990 Author Organization [facility] Address [address] [place] [address] Care Team Providers Name Role Phone Brisa Smith PA-C Primary Care Provider Reason for Visit Reason Comments INJURY, SHOULDER Encounter Details Date Type Department Care Team Description 06/12/2011 Telephone [facility] Brisa Smith PA-C INJURY, SHOULDER [address] [place] [address] SE [phone] [place], [place] [address] (Wo rk) Social History [...] will ice and us ibuprofen until then. TRUCK DRIVER Sully Ford Leena - 06/12/2011 9:49 AM CST Non -Symptom Message from Front Line Primary Care Provider: Brisa Smith PA-C Message: Pt would like advice from a Nurse regarding her shoulder pain TRUCK DRIVER documented in this encounter Plan of Treatment Not on filedocumented as of this encounter Visit Diagnoses Not on filedocumented in this encounter Care Teams Reception Manager Relationship Specialty Start Date End Date Brisa Smith PA-C PCP - General 07/30/10 04/18/15 [address] [place] [address] documented as of this encounter
--- OUTSIDE RECORDS SUMMARY | 2022-03-20 10:02 | XMS_ITS | Encounter Summary ---
:1990 Author Organization [facility] Address [address] [place] [address] Care Team Providers Name Role Phone Brisa Smith PA-C Primary Care Provider Encounter Details Date Type Department Care Team Description 07/12/2008 Office Visit Rocio Griffiths MBBS [facility] [place] [address] [place] [address] [place] [address] [phone] (Wo rk) Social History Tobacco Use Types [...] signed by Rocio Bermudez MD at 08/14/08 2141 Author: ZAK Giles Service: (none) Author Type: Physician Filed: 08/18/10 1131 Note Time: 07/12/08 0001 Status: Signed Jewelry Department Supervisor: ZAK Giles (Physician) NAME: MINO POSADAS MR#: [id number] ACCT: [id number] VISIT: [id number] DICTATING CLINICIAN: Rocio Bermudez MD CONFIRM #: [id number] LOC: 1702 CLINIC PROGRESS NOTE DATE OF [...] was agreeable with plan. PLAN: See assessment. SR:[id number] C: 07/12/08 13:15 CONFIRM #: [id number] documented in this encounter Plan of Treatment Not on filedocumented as of this encounter Visit Diagnoses Not on filedocumented in this encounter Care Teams Professional Services Manager Relationship Specialty Start Date End Date Brisa Smith PA-C PCP - General 07/30/10 04/18/15 [address] [place] [address] documented as of this encounter
--- OUTSIDE RECORDS SUMMARY | 2022-03-20 10:02 | XMS_ITS | Encounter Summary ---
:1990 Author Organization [facility] Address [address] [place] [address] Care Team Providers Name Role Phone Lynette Smith PA-C Primary Care Provider Reason for Visit Reason Comments Other Encounter Details Date Type Department Care Team Description 09/23/2007 Telephone [facility] Amos e Lynette Smith PA-C Other [facility] [place] [address] [place] [address] [phone] (Wo rk) Social History Tobacco Use Types Packs/Day Years Used Date Smoking Tobacco: Never Assessed Sex Assigned at Date Recorded Not on file documented as of this encounter [facility], Message - 09/23/2007 10:58 AM CDT Phone Note filed by Cost Effective Data at 08/15/102145 Author: Cost Effective Data Service: (none) Author Type: (none) Filed: 08/15/102145 Note Time: 09/23/071057 Status: Signed Customer Service Representative: Cost Effective Data Lab/Radiology Results Caller Name/Relationship:mom Primary Occupational Therapy Instructor:manuel What test result is needed?sickle cell When and where was test done?09/06 ludy Who ordered the test?manuel Investigation Clerk: Best call back number:[phone] Is it OK to leave a confidential [...] missed. Acknowledged by LYNETTE SMITH on 3:08pm TION SPECIALIST documented in this encounter Plan of Treatment Not on filedocumented as of this encounter Visit Diagnoses Not on filedocumented in this encounter Care Teams Business Sales Consultant Relationship Specialty Start Date End Date Lynette Smith PA-C PCP - General 07/30/10 04/18/15 [address] [place] [address] documented as of this encounter
--- OUTSIDE RECORDS SUMMARY | 2022-03-20 10:02 | XMS_ITS | Encounter Summary ---
:1990 [facility] Address [address] [place] [address] Care Team Providers Name Role Phone Brisa Smith PA-C Primary Care Provider Encounter Details Date Type Department Care Team Description 11/16/2008 PN Conversion Only [place] CONVERSION Brisa Smith, [address] [place] [address] [place], [place] [address] (Wo rk) Social History [...] - HP CONVERSION Hemoglobin Conc 36.5 gm/dL [place] RDW 11.8 11.0 - HP CONVERSION 15.0 [...] CONVERSION ALT (SGPT) (11/16/2008 1:37 PM CDT) [facility] gist Method Time Signature Alanine 14 4 - 55 HP CONVERSION Aminotransferase U/L Specimen (Source) Anatomical Collection Method Collection Time Re ceived Time Location / / Volume Laterality 11/16/2008 1:37 PM CDT Brisa Smith LUIS LAB_1 Performing Organization Address [facility] Code Phon e Number HP CONVERSION Amylase (11/16/2008 1:37 PM CDT) athologist Signature Amylase Serum 53 25 - 115 HP CONVERSION U/L Specimen (Source) Anatomical Collection Method Collection Time Re ceived Time Location / / Volume Laterality 11/16/2008 1:37 PM CDT Brisa Salvadoraryan WAYMimaDonnell LAB_1 Performing Organization Address [facility] Code Phon e Number HP CONVERSION AST (11/16/2008 1:37 PM CDT) [facility] gist Method Time Signature Aspartate 19 0 - 45 HP CONVERSION Aminotransferase U/L Specimen (Source) Anatomical Collection Method Collection Time Re ceived Time Location / / Volume Laterality 11/16/2008 1:37 PM CDT Brisa Salvadoraryan WAY[facility]ima[facility] LAB_1 Performing Organization Address [facility] Code Phon e Number HP CONVERSION Bilirubin, Direct (11/16/2008 1:37 PM CDT) athologist Signature Bilirubin, 0.1 0.0 - 0.4 HP CONVERSION Direct mg/dL Specimen (Source) Anatomical Collection Method Collection Time Re ceived Time Location / / Volume Laterality 11/16/2008 1:37 PM CDT Brisa Smith SEAMUSMimaDonnell LAB_1 Performing Organization Address City/[facility]/ZIP Code Phon e Number HP CONVERSION Bilirubin, Total (11/16/2008 1:37 PM CDT) athologist Signature Bilirubin Total 0.3 0.2 - 1.2 HP CONVERSION mg/dL Specimen (Source) Anatomical Collection Method Collection Time Re ceived Time Location / / Volume Laterality 11/16/2008 1:37 PM CDT Brisa Smith PA-C LAB_1 Performing Organization Address [facility]/ZIP Code Phon e Number HP CONVERSION Lipase (11/16/2008 1:37 PM CDT) P athologist Signature Lipase 55 5 - 70 U/L HP CONVERSION Specimen (Source) Anatomical Collection Method Collection Time Re ceived Time Location / / Volume Laterality 11/16/2008 1:37 PM CDT Brisa Smith PA-C LAB_1 Performing Organization Address [facility] Phon e Number HP CONVERSION documented in this encounter Visit Diagnoses Not on filedocumented in this encounter Care Teams Rush Seater Relationship Specialty Start Date End Date Brisa Smith PA-C PCP - General 07/30/10 04/18/15 [address] [place] [address] documented as of this encounter
--- OUTSIDE RECORDS SUMMARY | 2022-03-20 10:03 | XMS_ITS | Encounter Summary ---
:1990 Author Organization [facility] Address [address] [place], [place] [address] [place] [address] Care Team Providers Name Role Phone Brisa Smith PA-C Primary Care Provider Encounter Details Date Type Department Care Team Description 06/28/2005 Office Visit [facility] Gabo Weiner MD Subspecialty [address] [place], [place] [address] [place] [address] [phone] Social History Tobacco Use Types Packs/Day Years Used Date Smoking Tobacco: Never Assessed Sex Assigned at Date Recorded Not on file documented as of this encounter Last Filed Vital Signs Vital Sign Reading Time Taken Comments Blood Pressure 110/72 06/28/2005 2:55 PM BIOMEDICAL ENGINEER Pulse 65 06/28/2005 2:55 PM BIOMEDICAL ENGINEER Temperature - - Respiratory Rate - - Oxygen Saturation - - Inhaled Oxygen Concentration - - Weight 66.7 kg (146 lb 15.7 oz) 06/28/2005 2:55 PM C: 6 6.7kg BIOMEDICAL ENGINEER Height 172.7 cm (5' 8) 06/28/2005 2:55 PM C: 172.7cm BIOMEDICAL ENGINEER Body Mass Index 22.35 06/28/2005 2:55 PM BIOMEDICAL ENGINEER Body Mass Index Percentile 71.67 % 06/28/2005 2:55 PM BIOMEDICAL ENGINEER Growth Chart: CDC (Girls, 2-20 Years) documented in this encounter Progress Notes Jarrett Weiner MD - 06/28/2005 12:01 AM CST Progress Notes signed by Jarrett Weiner MD at 07/05/05 0954 Author: Jarrett Weiner MD Service: (none) Author Type: Physician Filed: 08/17/10 1150 Note Time: 06/28/052014 Status: Signed Advertising Writer: Jarrett Weiner MD (Physician) NAME: MINO POSADAS MR: [id number] ACCT: [id number] VISIT: [id number] DICTATING CLINICIAN: JARRETT WEINER MD JOB: [id number] CLINIC PROGRESS NOTE DATE OF VISIT: 06/28/2005 [...] X-rays were done at that time at [facility]. She was not hospitalized. Recent volleyball tournament that made her totally exhausted. She has missed three plus weeks of school this year. She has three younger siblings. Born and raised in [place]. No travel history. No pets. CURRENT MEDICATIONS: [...] Coronal CT of her sinuses, chest x-ray, MINERAL ENGINEER examination, CT of her abdomen, urinalysis. TT: [address]: 35 minutes. I counseled Mino and her mother concerning the nature of her symptoms, our approach to this issue, the importance of staying in school regardless of symptoms, work-up and followup. CC: LENA CHIU NP SCM:[id number] C: 07/02/05 12:22 DOCUMENT: [id number] EDICAL ENGINEER documented in this encounter Plan of Treatment Not on filedocumented as of this encounter Visit Diagnoses Not on filedocumented in this encounter Care Teams Patient Experience Coordinator Relationship Specialty Start Date End Date Brisa Smith PA-C PCP - General 07/30/10 04/18/15 [address] [place] [address] documented as of this encounter
--- OUTSIDE RECORDS SUMMARY | 2022-03-20 10:03 | XMS_ITS | Encounter Summary ---
:1990 Author Organization [facility] Address [address] [place] [address] Care Team Providers Name Role Phone Brisa Smith PA-C Primary Care Provider Encounter Details Date Type Department Care Team Description 07/16/2006 PN Conversion Only [place] CONVERSION [address] [place] [address] Social History Tobacco Use Types Packs/Day Years Used Date Smoking Tobacco: Never Assessed Sex Assigned at Date Recorded Not on file documented as of this encounter Plan of Treatment Not on filedocumented as of this encounter Visit Diagnoses Not on filedocumented in this encounter Care Teams Hand Stonecutter Relationship Specialty Start Date End Date Brisa Smith PA-C PCP - General 07/30/10 04/18/15 [address] [place], [place] [address] documented as of this encounter
--- OUTSIDE RECORDS SUMMARY | 2022-03-20 10:03 | XMS_ITS | Encounter Summary ---
:1990 Author Organization [facility] Address [address] [place] [address] Care Team Providers Name Role Phone Brisa Smith PA-C Primary Care Provider Encounter Details Date Type Department Care Team Description 07/26/2005 Office Visit [facility] Gabo Weiner MD Subspecialty [address] [place], [place] [address] [place] [address] [phone] Social History Tobacco Use Types Packs/Day Years Used Date Smoking Tobacco: Never Assessed Sex Assigned at Date Recorded Not on file documented as of this encounter Last Filed Vital Signs Vital Sign Reading Time Taken Comments Blood Pressure 104/60 07/26/2005 3:27 PM REFRIGERATION SERVICE TECHNICIAN Pulse 59 07/26/2005 3:27 PM REFRIGERATION SERVICE TECHNICIAN Temperature - - Respiratory Rate - - Oxygen Saturation - - Inhaled Oxygen Concentration - - Weight 66 kg (145 lb 7.7 oz) 07/26/2005 3:27 PM REFRIGERATION SERVICE TECHNICIAN C: 66.0kg Height 172.7 cm (5' 8) 07/26/2005 3:27 PM REFRIGERATION SERVICE TECHNICIAN C: 172.7 cm Body Mass Index 22.12 07/26/2005 3:27 PM REFRIGERATION SERVICE TECHNICIAN Body Mass Index Percentile 69.33 % 07/26/2005 3:27 PM CS T Growth Chart: [facility] (Girls, 2-20 Years) documented in this encounter Progress Notes Jarrett Weiner MD - 07/26/2005 12:01 AM CST Progress Notes signed by Jarrett Weiner MD at 08/09/05 1355 Author: Jarrett Weiner MD Service: (none) Author Type: Physician Filed: 08/17/10 1225 Note Time: 07/26/05 0001 Status: Signed Well Tender: Jarrett Weiner MD (Physician) NAME: MINO POSADAS MR: [id number] ACCT: [id number] VISIT: [id number] DICTATING CLINICIAN: JARRETT WEINER MD JOB: [id number] CLINIC PROGRESS NOTE DATE OF VISIT: 07/26/2005 [...] metronidazole and continuing with Zelnorm, and followup. SCM:[id number] C: 07/30/05 15:07 DOCUMENT: [id number] documented in this encounter Plan of Treatment Not on filedocumented as of this encounter Visit Diagnoses Not on filedocumented in this encounter Care Teams Snaker Relationship Specialty Start Date End Date Brisa Smith PA-C PCP - General 07/30/10 04/18/15 [address] [place] [address] documented as of this encounter
--- OUTSIDE RECORDS SUMMARY | 2022-03-20 10:03 | XMS_ITS | Encounter Summary ---
:1990 Author Organization [facility] Address [address] [place] [address] Care Team Providers Name Role Phone Brisa Smith PA-C Primary Care Provider Encounter Details Date Type Department Care Team Description 07/05/2005 Office Visit [facility] Gabo Weiner MD Subspecialty [address] [place] [address] [place], [place] [address] [phone] Social History Tobacco Use Types Packs/Day Years [...] 1159 Note Time: 07/05/05 0001 Status: Signed Pc Tech: Jarrett Weiner MD (Physician) NAME: MINO POSADAS MR: [id number] ACCT: [id number] VISIT: [id number] DICTATING CLINICIAN: JARRETT WEINER MD JOB: [id number] CLINIC PROGRESS NOTE DATE OF VISIT: 07/05/2005 [...] has also had evaluation by ENT and TECHNICAL SUPPORT REPRESENTATIVE since our last visit. She has some [...] evaluation today, her followup and our plans. SCM:[id number] C: 07/09/05 05:17 DOCUMENT: [id number] RANGER OPERATOR documented in this encounter Plan of Treatment Not on filedocumented as of this encounter Visit Diagnoses Not on filedocumented in this encounter Care Teams Edge Bander Hand Relationship Specialty Start Date End Date Brisa Smith PA-C PCP - General 07/30/10 04/18/15 [address] [place] [address] documented as of this encounter
--- OUTSIDE RECORDS SUMMARY | 2022-03-20 10:03 | XMS_ITS | Encounter Summary ---
:1990 Author Organization [facility] Address [address] [place] [address] Care Team Providers Name Role Phone Brisa Smith PA-C Primary Care Provider Encounter Details Date Type Department Care Team Description 07/02/2005 Office Visit [facility] Sussy Enciso, [address] APRN, [place] [address] Social History Tobacco Use Types Packs/Day Years Used Date Smoking Tobacco: Never Assessed Sex Assigned at Date Recorded Not on file documented as of this encounter Last Filed Vital Signs Vital Sign Reading Time Taken Comments Blood Pressure 110/70 07/02/2005 3:10 PM TRAFFIC ANALYST Pulse 82 07/02/2005 3:10 PM TRAFFIC ANALYST Temperature - - Respiratory Rate - - Oxygen Saturation - - Inhaled Oxygen Concentration - - Weight 66.6 kg (146 lb 12.5 oz) 07/02/2005 3:10 PM TRAFFIC ANALYST C: 66.6kg Height - - Body Mass Index 22.32 06/28/2005 2:55 PM TRAFFIC ANALYST Body Mass Index Percentile 71.37 % 07/02/2005 3:10 PM CS T Growth Chart: CDC (Girls, 2-20 Years) documented in this encounter Progress Notes Sussy Enciso APRN, CNP - 07/02/2005 12:01 AM CST Progress Notes signed by Sussy Enciso APRN, CNP at 07/02/05 1720 Author: GUILLAUME Stevens Service: (none) Author Type: Nurse Practitioner Filed: 08/17/10 1153 Note Time: 07/02/05 0001 Status: Signed Pipe Threader: GUILLAUME Stevens (Nurse Practitioner) Subjective: Patient presents [...] is instructed to make a lab appointment. FIC ANALYST documented in this encounter Plan of Treatment Not on filedocumented as of this encounter Visit Diagnoses Not on filedocumented in this encounter Care Teams Heating And Blending Supervisor Relationship Specialty Start Date End Date Brisa Smith PA-C PCP - General 07/30/10 04/18/15 [address] [place] [address] documented as of this encounter
--- OUTSIDE RECORDS SUMMARY | 2022-03-20 10:03 | XMS_ITS | Encounter Summary ---
:1990 Author Organization [employer] Address [address] [place] [address] Care Team Providers Name Role Phone Brisa Smith PA-C Primary Care Provider Encounter Details Date Type Department Care Team Description 11/25/2006 Office Visit Rahat Mckeon PA-C [facility] [employer] [facility] [place] [address] [place] [address] [phone] (Wo rk) Social History Tobacco Use Types [...] Mix PA-C Service: (none) Author Type: Physician Dining Service Inspector Filed: 08/17/10 2207 Note Time: 11/25/06 0001 Status: Signed Food Trades Assistants: Rahat Mix PA-C (Physician Dining Service Inspector) Preventive Exam & Pelvic IMPRESSION: Routine preventive [...] current method of contraception 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 has never been . Menstrual [...] and updated on the Health Profile of [place]. Current Medications: Reviewed today and updated on Health Profile in LastWord. Family History: (First degree family members) Asthma. Social History: Employment status: Student. Marital Status: Single. She will be a senior at [employer] this fall. She will play volleyball [...] adenopathy. Pelvic: Normal external genitalia and urethra. [place], moist vaginal and cervical mucosa, without lesions. [...] on filedocumented in this encounter Care Teams House Carpenter Helper Relationship Specialty Start Date End Date Brisa Smith PA-C PCP - General 07/30/10 04/18/15 [address] [place] [address] documented as of this encounter
--- OUTSIDE RECORDS SUMMARY | 2022-03-20 10:03 | XMS_ITS | Encounter Summary ---
:[address] [facility] [facility] Address [address] [place] [address] Care Team Providers Name Role Phone Brisa Smith PA-C Primary Care Provider Encounter Details Date Type Department Care Team Description 07/04/2005 Office Visit [facility] 38[address] Ear, Luz Fajardo MD Nose, and Throat [address] [facility] [address] [facility] [place] [address] [place], [place] [id number] [phone] Social History Tobacco Use Types Packs/Day Years [...] 1156 Note Time: 07/04/05 0001 Status: Signed Chief Analytics Officer: Luz Fajardo MD (Physician) NAME: MINO POSADAS MR: [id number] ACCT: [id number] VISIT: [id number] DICTATING CLINICIAN: LUZ FAJARDO MD JOB: [id number] CLINIC PROGRESS NOTE DATE OF VISIT: 07/04/2005 [...] visit with a facial pain TMJ clinical project leader to see if there is any muscle [...] as needed basis. CC: JARRETT WEINER MD [facility] SMS:[id number] C: 07/04/05 14:01 DOCUMENT: [id number] CASTER documented in this encounter Plan of Treatment Not on filedocumented as of this encounter Visit Diagnoses Not on filedocumented in this encounter Care Teams Human Resource Analyst Relationship Specialty Start Date End Date Brisa Smith PA-C PCP - General 07/30/10 04/18/15 [address] [place] [address] documented as of this encounter
--- OUTSIDE RECORDS SUMMARY | 2022-03-20 10:03 | XMS_ITS | Encounter Summary ---
:1990 [facility] Address [address] [place] [address] Care Team Providers Name Role Phone Brisa Smith PA-C Primary Care Provider Encounter Details Date Type Department Care Team Description 07/16/2006 Office Visit [place] Rosas, Caitlin Union Dalerashaun Stern APRN, [place] [address] [address] [phone] [place] [id number] (Wo rk) Social History Tobacco Use Types [...] Progress Notes signed by Lillian Rosas APRN, ROSA at 07/16/06 4532 Author: LillianJOVANNA Welsh Service: (none) Author Type: Nurse Practitioner Filed: 08/17/10 193 Note Time: 07/16/06 0001 Status: Signed Cash Applications Associate: JOVANNA Gagnon (Nurse Practitioner) Acute Clinic Visit [...] today on the Health Profile screen of [facility]. Chronic medications were reviewed and updated today on Health Profile in LastWord. OBJECTIVE: Weight: 147.5 Temperature: 98.6 degrees F. [...] on filedocumented in this encounter Care Teams Missileman Relationship Specialty Start Date End Date Brisa Smith PA-C PCP - General 07/30/10 04/18/15 [address] [place] [address] documented as of this encounter
--- OUTSIDE RECORDS SUMMARY | 2022-03-20 10:03 | XMS_ITS | Encounter Summary ---
:1990 Author Organization [facility] [employer] [employer] Address [address] [place] [address] Care Team Providers Name Role Phone Brisa Smith PA-C Primary Care Provider Encounter Details Date Type Department Care Team Description 07/05/2005 PN Conversion Only [place] CONVERSI ON Jarrett Weiner, [address] [place] [address] [address] [place] [address] (Wo rk) Social History Tobacco Use Types Packs/Day Years Used Date Smoking Tobacco: Never Assessed Sex Assigned at Date Recorded Not on file documented as of this encounter Plan of Treatment Not on filedocumented as of this encounter Procedures Procedure Name Priority Date/Time Associated Comments Diagnosis LAB IGM Routine 07/05/2005 3:14 PM Results f or this BREAKER ENGINEER procedure are i n the results section. CARDIOLIPIN Routine 07/05/2005 3:14 PM Results f or this ANTIBODIES, IGG AND BREAKER ENGINEER procedur e are in IGM the results section. THYROID STIMULATING Routine 07/05/2005 3:14 PM Re sults for this HORMONE BREAKER ENGINEER procedure are i n the results section. CREATININE / GFR Routine 07/05/2005 3:14 PM Resul ts for this BREAKER ENGINEER procedure are i n the results section. IGE, MILK (F2) Routine 07/05/2005 3:14 PM Results for this BREAKER ENGINEER procedure are i n the results section. COMPLETE BLOOD Routine 07/05/2005 3:14 PM Results for this COUNT-W/DIFF BREAKER ENGINEER procedure are i n the results section. BILIRUBIN, TOTAL & Routine 07/05/2005 3:14 PM Res ults for this DIRECT BREAKER ENGINEER procedure are i n the results section. FREE T4 Routine 07/05/2005 3:14 PM Results f or this BREAKER ENGINEER procedure are i n the results section. IGG, SERUM Routine 07/05/2005 3:14 PM Results f or this BREAKER ENGINEER procedure are i n the results section. IGE TOTAL Routine 07/05/2005 3:14 PM Results f or this BREAKER ENGINEER procedure are i n the results section. IGA, SERUM Routine 07/05/2005 3:14 PM Results f or this BREAKER ENGINEER procedure are i n the results section. C-REACTIVE PROTEIN Routine 07/05/2005 3:14 PM Res ults for this BREAKER ENGINEER procedure are i n the results section. AST Routine 07/05/2005 3:14 PM Results f or this BREAKER ENGINEER procedure are i n the results section. LD TOTAL (LDH) Routine 07/05/2005 3:14 PM Results for this BREAKER ENGINEER procedure are i n the results section. BUN Routine 07/05/2005 3:14 PM Results f or this BREAKER ENGINEER procedure are i n the results section. documented in this encounter Results Complete Blood Count-W/Diff (07/05/2005 3:14 PM BREAKER ENGINEER) [facility] gist Method Time Signature White Blood [...] - HP CONVERSION Hemoglobin Conc 36.5 gm/dL Crystal RDW 12.2 11.0 - HP CONVERSION 15.0 [...] / / Volume Laterality 07/05/2005 3:14 PM BREAKER ENGINEER Jarrett Weiner MD LAB_1 Performing Organization Address City/[facility]/ZIP Code Phon e Number HP CONVERSION AST (07/05/2005 3:14 PM BREAKER ENGINEER) [facility] Method Time Signature Aspartate 20 0 - 45 HP CONVERSION Aminotransferase U/L Specimen (Source) Anatomical Collection Method Collection Time Re ceived Time Location / / Volume Laterality 07/05/2005 3:14 PM BREAKER ENGINEER Jarrett Weiner MD LAB_1 Performing Organization Address City/[facility] Phon e Number HP CONVERSION Bilirubin, Total & Direct (07/05/2005 3:14 PM BREAKER ENGINEER) athologist Signature Bilirubin Total 0.2 0.2 - 1.2 HP CONVERSION mg/dL Bilirubin, 0.1 0.0 - 0.4 HP CONVERSION Direct mg/dL Specimen (Source) Anatomical Collection Method Collection Time Re ceived Time Location / / Volume Laterality 07/05/2005 3:14 PM BREAKER ENGINEER Jarrett Weiner MD LAB_1 Performing Organization Address City/[facility] Code Phon e Number HP CONVERSION BUN (07/05/2005 3:14 PM BREAKER ENGINEER) athologist Signature Blood Urea 13 5 - 26 HP CONVERSION Nitrogen mg/dL Specimen (Source) Anatomical Collection Method Collection Time Re ceived Time Location / / Volume Laterality 07/05/2005 3:14 PM BREAKER ENGINEER Jarrett Weiner MD LAB_1 Performing Organization Address City/[facility]/ZIP Code Phon e Number HP CONVERSION Creatinine / GFR (07/05/2005 3:14 PM BREAKER ENGINEER) athologist Signature Creatinine 0.8 0.5 - 1.5 HP CONVERSION Serum mg/dL Specimen (Source) Anatomical Collection Method Collection Time Re ceived Time Location / / Volume Laterality 07/05/2005 3:14 PM BREAKER ENGINEER Jarrett Weiner MD LAB_1 Performing Organization Address City/[facility]/ZIP Code Phon e Number HP CONVERSION LD Total (LDH) (07/05/2005 3:14 PM BREAKER ENGINEER) [facility] Method Time Signature Lactic Acid 169 90 - 180 HP CONVERSION Dehydrogenase U/L Specimen (Source) Anatomical Collection Method Collection Time Re ceived Time Location / / Volume Laterality 07/05/2005 3:14 PM BREAKER ENGINEER Jarrett Donnell Weiner MD LAB_1 Performing Organization Address City/State/ZIP Code Phon e Number HP CONVERSION C-Reactive Protein (07/05/2005 3:14 PM BREAKER ENGINEER) athologist Signature CRP <0.2 0.0 - 0.9 HP CONVERSION mg/dL Specimen (Source) Anatomical Collection Method Collection Time Re ceived Time Location / / Volume Laterality 07/05/2005 3:14 PM BREAKER ENGINEER Jarrett Donnell Weiner MD LAB_1 Performing Organization Address City/State/ZIP Code Phon e Number HP CONVERSION IgA, Serum (07/05/2005 3:14 PM BREAKER ENGINEER) Analysis Performed At [facility] Signature Immunoglobulin A 109 51 - 190 HP CONVERSION mg/dL Specimen (Source) Anatomical Collection Method Collection Time Re ceived Time Location / / Volume Laterality 07/05/2005 3:14 PM BREAKER ENGINEER Jarrett Weiner MD LAB_1 Performing Organization Address City/[facility] Code Phon e Number HP CONVERSION Igg, Serum (07/05/2005 3:14 PM BREAKER ENGINEER) Analysis Performed At [facility] Signature Immunoglobulin G 1,360 669 - HP CONVERSION 1,529 mg/dL Specimen (Source) Anatomical Collection Method Collection Time Re ceived Time Location / / Volume Laterality 07/05/2005 3:14 PM BREAKER ENGINEER Jarrett Weiner MD LAB_1 Performing Organization Address City/[facility] Code Phon e Number HP CONVERSION IgE Total (07/05/2005 3:14 PM BREAKER ENGINEER) Analysis Performed At [facility] Signature Immunoglobulin E 30 0 - 180 HP CONVERSION IU/mL Comment: Interpretive data: TEST INFORMATION: Immunoglobulin E To convert to ng/mL, multiply IU/mL by 2 .4. Specimen (Source) Anatomical Collection Method Collection Time Re ceived Time Location / / Volume Laterality 07/05/2005 3:14 PM BREAKER ENGINEER Jarrett Weiner MD LAB_1 Performing Organization Address City/[facility]/ZIP Code Phon e Number HP CONVERSION IGM (07/05/2005 3:14 PM BREAKER ENGINEER) Analysis Performed At Patho logist Time Signature Immunoglobulin M 46 37 - 314 HP CONVERSION mg/dL Specimen (Source) Anatomical Collection Method Collection Time Re ceived Time Location / / Volume Laterality 07/05/2005 3:14 PM BREAKER ENGINEER Jarrett Weiner MD LAB_1 Performing Organization Address City/State/ZIP Code Phon e Number HP CONVERSION Free T4 (07/05/2005 3:14 PM BREAKER ENGINEER) P athologist Signature Thyroxine, Free 1.4 0.8 - 1.5 HP CONVERSION ng/dL Specimen (Source) Anatomical Collection Method Collection Time Re ceived Time Location / / Volume Laterality 07/05/2005 3:14 PM BREAKER ENGINEER Jarrett Weiner MD LAB_1 Performing Organization Address City/State/ZIP Code Phon e Number HP CONVERSION Thyroid Stimulating Hormone (07/05/2005 3:14 PM BREAKER ENGINEER) P athologist Signature Thyroid 1.09 0.20 - HP CONVERSION Stimulating 4.50 Hormone uIU/mL Specimen (Source) Anatomical Collection Method Collection Time Re ceived Time Location / / Volume Laterality 07/05/2005 3:14 PM BREAKER ENGINEER Jarrett Weiner MD LAB_1 Performing Organization Address City/State/ZIP Code Phon e Number HP CONVERSION Cardiolipin Antibodies (07/05/2005 3:14 PM BREAKER ENGINEER) [facility]ist Method Time Signature Anticardiolipin IgG 13 [...] with antiphospholipid antibody syndrome (Br J Rheumatol 26:751-578 4863) have moderate or high l evels of [...] with antiphospholipid antibody syndrome (Br J Rheumatol 26:087-887 1655) have moderate or high l evels of cardiolipin antibodies and are positive for IgG only, or IgG and IgM. Specimen (Source) Anatomical Collection Method Collection Time Re ceived Time Location / / Volume Laterality 07/05/2005 3:14 PM BREAKER ENGINEER Jarrett Weiner MD LAB_1 Performing Organization Address City/[facility]/ZIP Code Phon e Number HP CONVERSION IgE, Milk (F2) (07/05/2005 3:14 PM BREAKER ENGINEER) P athologist Signature Milk IgE <0.35 kU/L HP CONVERSION Comment: Class 0 (Negative <0.35) Specimen (Source) Anatomical Collection Method Collection Time Re ceived Time Location / / Volume Laterality 07/05/2005 3:14 PM BREAKER ENGINEER Jarrett Weiner MD LAB_1 Performing Organization Address City/[facility] Phon e Number HP CONVERSION documented in this encounter Visit Diagnoses Not on filedocumented in this encounter Care Teams Oracle Hrms Developer Relationship Specialty Start Date End Date Brisa Smith PA-C PCP - General 07/30/10 04/18/15 [address] [place] [address] documented as of this encounter
--- OUTSIDE RECORDS SUMMARY | 2022-03-20 10:03 | XMS_ITS | Encounter Summary ---
:1990 Author Organization [facility] Address [address] [place] [address] Care Team Providers Name Role Phone Brisa Smith PA-C Primary Care Provider Encounter Details Date Type Department Care Team Description 01/17/2007 Office Visit [facility] [place] [id number] [place] [address] [phone] Social History Tobacco Use Types Packs/Day Years [...] 2314 Note Time: 01/17/07 0001 Status: Signed Camera Systems Engineer: Jagdeep Kwok MD (Physician) NAME: MINO POSADAS MR#: [id number] ACCT: [id number] VISIT: [id number] DICTATING CLINICIAN: Jagdeep Kwok MD JOB: [id number] LOC: 520 CLINIC PROGRESS NOTE DATE OF [...] Zithromax was given for the second week. BOR:[id number] C: 01/18/07 18:42 DOCUMENT: [id number] documented in this encounter Plan of Treatment Not on filedocumented as of this encounter Visit Diagnoses Not on filedocumented in this encounter Care Teams Retail Agent Relationship Specialty Start Date End Date Brisa Smith PA-C PCP - General 07/30/10 04/18/15 [address] [place] [address] documented as of this encounter
--- OUTSIDE RECORDS SUMMARY | 2022-03-20 10:03 | XMS_ITS | Encounter Summary ---
:1990 Author Organization [facility] Address [address] [address] Care Team Providers Name Role Phone Brisa Smith PA-C Primary Care Provider Encounter Details Date Type Department Care Team Description 07/16/2006 PN Conversion Only [place] CONVERSION Ralph, [address] Stern APRN, SURG[place] [address] [address] [place] [id number] (Wo rk) Social History Tobacco Use Types [...] 12:43 PM CDT) [facility] Time Signature Strep Group A Negative Negative HP CONVERSION Antigen Test Comment: Culture to follow. Specimen (Source) Anatomical Collection Method Collection Time Re ceived Time Location / / Volume Laterality 07/16/2006 12:43 PM CDT Lillian Rosas APRN, SURGICAL INSTRUMENT TECHNICIAN LAB_1 Performing Organization Address City/State/ZIP Code Phon e Number HP CONVERSION Beta Strep Followup (07/16/2006 12:43 PM CDT) P athologist Signature Strep Screen SEE TEXT HP CONVERSION Comment: Patient: MINO POSADAS Rapid Strep Follow up Culture @ ? Collected: ??[id number] ??[id number] Source: Throat ?Processed: ??[id number] ??[id number] Final Report ------ ?[id number] ??[id number] No beta hemolytic Strep group A isolated . @ = Rapid F/U Cult Performed at ??[address] [facility] [address] [place], [place] ?[address] Specimen (Source) Anatomical Collection Method Collection Time Re ceived Time Location / / Volume Laterality 07/16/2006 12:43 PM CDT Lillian Rosas PHOTO LAB MANAGER, SURGICAL INSTRUMENT TECHNICIAN LAB_1 Performing Organization Address City/[facility]/ZIP Code Phon e Number HP CONVERSION documented in this encounter Visit Diagnoses Not on filedocumented in this encounter Care Teams Senior Laboratory Technician Relationship Specialty Start Date End Date Brisa Smith PA-C PCP - General 07/30/10 04/18/15 [address] [place] [address] documented as of this encounter
--- OUTSIDE RECORDS SUMMARY | 2022-03-20 10:03 | XMS_ITS | Encounter Summary ---
:1990 Author Organization [facility] Address [address] [place] [address] Care Team Providers Name Role Phone Brisa Smith PA-C Primary Care Provider Encounter Details Date Type Department Care Team Description 06/28/2005 PN Conversion Only [place] CONVERSI ON Jarrett Weiner, [address] [place] [address] [address] [place] [address] (Wo rk) Social History Tobacco Use Types Packs/Day Years Used Date Smoking Tobacco: Never Assessed Sex Assigned at Date Recorded Not on file documented as of this encounter Plan of Treatment Not on filedocumented as of this encounter Procedures Procedure Name Priority Date/Time Associated Comments Diagnosis URINALYSIS COMPLETE Routine 06/28/2005 4:58 PM Re sults for this RN SUPPORT SERVICES procedure are i n the results section. TEST Routine 06/28/2005 4:58 PM Results for this (URINE) RN SUPPORT SERVICES procedure are i n the results section. documented in this encounter Results (ABNORMAL) Urinalysis Complete (06/28/2005 4:58 PM RN SUPPORT SERVICES) [facility] Method Time Signature Glucose, Negative Neg-Trac HP CONVERSION Qualitative U Protein Urine Negative Neg-Trac HP CONVERSION Ketones Negative Negative HP CONVERSION U BILI Negative Negative HP CONVERSION U Specific 1.025 1.005 - 25 HP CONVERSION [place] Blood Urine Negative Negative HP CONVERSION pH [...] / / Volume Laterality 06/28/2005 4:58 PM RN SUPPORT SERVICES Jarrett Weiner MD LAB_1 Performing Organization Address City/[facility]/ZIP Code Phon e Number HP CONVERSION Test (Urine) (06/28/2005 4:58 PM RN SUPPORT SERVICES) [facility] Method Time Signature Urine Negative No normal [...] / / Volume Laterality 06/28/2005 4:58 PM RN SUPPORT SERVICES Jarrett Weiner MD LAB_1 Performing Organization Address City/[facility] Phon e Number HP CONVERSION documented in this encounter Visit Diagnoses Not on filedocumented in this encounter Care Teams Room Service Food Service Attendant Relationship Specialty Start Date End Date Brisa Smith PA-C PCP - General 07/30/10 04/18/15 [address] [place] [address] documented as of this encounter
--- OUTSIDE RECORDS SUMMARY | 2022-03-20 10:03 | XMS_ITS | Encounter Summary ---
:1990 Author Organization [facility] Address [address] [address] Care Team Providers Name Role Phone Brisa Smith PA-C Primary Care Provider Encounter Details Date Type Department Care Team Description 11/25/2006 PN Conversion Only Rahat Booth PA-C [address] [place] [address] [place] [address] (Wo rk) Social History Tobacco Use Types [...] Transmitted Disease Probe (11/25/2006 2:36 PM CDT) [facility] Method Time Signature Sexually SEE TEXT HP CONVERSION Transmitted Disease Probe Comment: Patient: MINO POSADAS Sexually Trans Disease Probe @ ?Collected: ??[id number] ??[id number] Source: ENDOCERV ?Processed: ??[id number] ??[id number] Final Report ------ ?[id number] ??[id number] No Chlamydia trachomatis detected by amp lified DNA assay No Neisseria gonorrhoeae detected by amp lified DNA assay The [employer] Amplified DNA assay is amadou red by the FDA for non-medicolegal diagnostic testing in the adult population. @ = Sexually Trans Disease Probe Perform ed at ??[address] [facility] [place] [address] Specimen (Source) Anatomical Collection Method Collection Time Re ceived Time Location / / Volume Laterality 11/25/2006 2:36 PM CDT Rahat Mix PA-C LAB_1 Performing Organization Address City/[facility] Code Phon e Number HP CONVERSION [...] Rahat Mix PA-C LAB_1 Performing Organization Address [facility] Code Phon e Number HP CONVERSION Hemoglobin, Blood (11/25/2006 12:12 PM CDT) athologist Signature Hemoglobin 15.0 12.0 - 16.0 HP CONVERSION gm/dL Specimen (Source) Anatomical Collection Method Collection Time Re ceived Time Location / / Volume Laterality 11/25/2006 12:12 PM CDT Rahat Mix PA-C LAB_1 Performing Organization Address [facility] Phon e Number HP CONVERSION Pap Smear (11/25/2006 12:00 PM CDT) [facility] gist Method Time Signature PAP Smear SEE TEXT No normal HP CONVERSION Liquid Based range Comment: Patient: MINO POSADAS ? CERVICAL CYTOLOGY REPORT Pathology # ??[id number] ?Date Obtained: ? Date Received: CYTOLOGIC IMPRESSION: [...] filedocumented in this encounter Care Teams Medical Device Sales Relationship Specialty Start Date End Date Brisa Smith PA-C PCP - General 07/30/10 04/18/15 [address] [place], [place] [address] documented as of this encounter
--- OUTSIDE RECORDS SUMMARY | 2022-03-20 10:03 | XMS_ITS | Encounter Summary ---
:1990 Author Organization [email or web address] Address [address] [place] [address] Care Team Providers Name Role Phone Brisa Smith PA-C Primary Care Provider Encounter Details Date Type Department Care Team Description 04/17/2007 Office Visit [facility] Candis Hagen PA-C [address] [facility] [address] [place] [id number] [place] [address] [phone] (Wo rk) Social History Tobacco Use Types Packs/Day Years Used Date Smoking Tobacco: Never Assessed Sex Assigned at Date Recorded Not on file documented as of this encounter Last Filed Vital Signs Vital Sign Reading Time Taken Comments Blood Pressure 104/56 04/17/2007 8:00 AM PACU NURSE Pulse - - Temperature - - Respiratory Rate - - Oxygen Saturation - - Inhaled Oxygen Concentration - - Weight 66.2 kg (145 lb 15.8 oz) 04/17/2007 8:00 AM PACU NURSE C: 66.2kg Height - - Body Mass Index - - documented in this encounter Progress Notes Candis Lang PA-C - 04/17/2007 12:01 AM CST Progress Notes signed by Candis Lang PA-C at 04/24/07 1424 Author: Candis Lang PA-C Service: (none) Author Type: Physician Home Care Music Therapist Filed: 08/18/10 0116 Note Time: 04/17/07 0001 Status: Signed Supervisor Soakers: Candis Lang PA-C (Physician Home Care Music Therapist) NAME: MINO POSADAS MR#: [id number] ACCT: [id number] VISIT: [id number] DICTATING CLINICIAN: THELMA HERNANDEZ JOB: [id number] LOC: 502 CLINIC PROGRESS NOTE DATE OF [...] is not affective, she will follow up. [id number] C: 04/20/07 15:38 DOCUMENT: [id number] NURSE documented in this encounter Plan of Treatment Not on filedocumented as of this encounter Visit Diagnoses Not on filedocumented in this encounter Care Teams Roller Mechanic Relationship Specialty Start Date End Date Brisa Smith PA-C PCP - General 07/30/10 04/18/15 [address] [place] [address] documented as of this encounter
--- OUTSIDE RECORDS SUMMARY | 2022-03-20 10:03 | XMS_ITS | Encounter Summary ---
:1990 Author Organization [facility] Address [address] [place] [address] Care Team Providers Name Role Phone Brisa Smith PA-C Primary Care Provider Encounter Details Date Type Department Care Team Description 03/11/2007 Nursing Visit Darryn Diaz MD [facility] [address] [place] [address] [place] [address] [place] [address] [phone] (Wo rk) Social History Tobacco Use Types Packs/Day Years Used Date Smoking Tobacco: Never Assessed Sex Assigned at Date Recorded Not on file documented as of this encounter Plan of Treatment Not on filedocumented as of this encounter Visit Diagnoses Not on filedocumented in this encounter Care Teams Cremator Relationship Specialty Start Date End Date Brisa Smith PA-C PCP - General 07/30/10 04/18/15 [address] [place] [address] [place], [place] [address] documented as of this encounter
--- OUTSIDE RECORDS SUMMARY | 2022-03-20 10:04 | XMS_ITS | Encounter Summary ---
:1990 Author [facility] Address [address] [place] [address] Care Team Providers Name Role Phone Brisa Smith PA-C Primary Care Provider Encounter Details Date Type Department Care Team Description 07/10/2004 PN Conversion Only [place] [address] [place] [address] Social History Tobacco Use Types Packs/Day Years Used Date Smoking Tobacco: Never Assessed Sex Assigned at Date Recorded Not on file documented as of this encounter Plan of Treatment Not on filedocumented as of this encounter Visit Diagnoses Not on filedocumented in this encounter Care Teams Grab Driver Relationship Specialty Start Date End Date Brisa Smith PA-C PCP - General 07/30/10 04/18/15 [address] [place], [place] [id number] documented as of this encounter
--- OUTSIDE RECORDS SUMMARY | 2022-03-20 10:04 | XMS_ITS | Encounter Summary ---
:1990 Author Organization [facility] Address [address] [place] [address] Care Team Providers Name Role Phone Brisa Smith PA-C Primary Care Provider Encounter Details Date Type Department Care Team Description 07/10/2004 PN Conversion Only [place] [address] [address] [place] [address] Social History Tobacco Use Types Packs/Day Years Used Date Smoking Tobacco: Never Assessed Sex Assigned at Date Recorded Not on file documented as of this encounter Plan of Treatment Not on filedocumented as of this encounter Visit Diagnoses Not on filedocumented in this encounter Care Teams Full Stack Python Developer Relationship Specialty Start Date End Date Brisa Smith PA-C PCP - General 07/30/10 04/18/15 [address] [place], [place] [phone] documented as of this encounter
--- OUTSIDE RECORDS SUMMARY | 2022-03-20 10:04 | XMS_ITS | Encounter Summary ---
:1990 Author [facility] Address [address] [place] [address] Care Team Providers Name Role Phone Brisa Smith PA-C Primary Care Provider Encounter Details Date Type Department Care Team Description 10/26/2004 [facility] Jose Flynn MD Orthopedics [address] [place] [address] Social History Tobacco Use Types Packs/Day Years Used Date Smoking Tobacco: Never Assessed Sex Assigned at Date Recorded Not on file documented as of this encounter Progress Notes Ranjith Garcia - 10/26/2004 12:01 AM CDT Progress Notes signed by at 10/30/04 0637 Author: Ranjith Garcia MD Service: (none) Author Type: (none) Filed: 08/17/10 0654 Note Time: 10/26/04 0001 Status: Signed Supervisor Opening And Picking: Rudy Conversion NAME: MINO POSADAS MR: [id number] ACCT: [id number] VISIT: [id number] DICTATING CLINICIAN: RANJITH GARCIA MD,MPH JOB: [id number] CLINIC PROGRESS NOTE DATE OF VISIT: 10/26/2004 [...] an MRI scan of her right wrist. [id number]:[id number] C: 10/28/04 13:48 DOCUMENT: [id number] OT BUNCHER documented in this encounter Plan of Treatment [...] is seen on these films. ljc/ ?? [id number] Dictating [place]A [place] RADIOLOGIST Procedure Note Rivera Corbett - 06/29/2016 The previously noted tiny density descri bed adjacent to the medial aspect of the ulnar distal epiphysis on the films of 10/22/04 is not identified on today's films. No bony dis placement or complication is seen on these films. lj/ [id number] Dictating [place] RADIOLOGIST Jose Garcia MD RAD GD documented in this encounter Visit Diagnoses Not on filedocumented in this encounter Care Teams Thermostat Machine Tender Relationship Specialty Start Date End Date Brisa Smith PA-C PCP - General 07/30/10 04/18/15 [address] [place] [address] documented as of this encounter
--- OUTSIDE RECORDS SUMMARY | 2022-03-20 10:04 | XMS_ITS | Encounter Summary ---
:1990 Author Organization [facility] Address [address], [place] [address] Care Team Providers Name Role Phone Brisa Smith PA-C Primary Care Provider Reason for Visit Reason Comments Other Encounter Details Date Type Department Care Team Description 06/21/2005 Telephone [facility], Message Other [address] [place] [address] Social History Tobacco Use Types Packs/Day Years Used Date Smoking Tobacco: Never Assessed Sex Assigned at Date Recorded Not on file documented as of this encounter Progress Notes Felipe Guevara - 06/21/2005 9:19 AM CST Phone Note filed by Felipe Guevara at 08/14/103 Author: Felipe Guevara Service: (none) Author Type: (none) Filed: 08/14/10114 Note Time: 06/21/05918 Status: Signed Jd Edwards: Rudy Tae Patient's mom, Mari, balbina. She is looking for a copy of some labs done after February 26. She is not sure of the exact dates but is interested in certain test results. Please call mom at [phone]. It is okay to leave a message. Created on 21Jun2005 9:19am by FELIPE GUEVARA On 21Jun2005 11:13am AKHIL LEMON wrote: Normal results for blood work left. Advised to call back if she has questions. RE ADMINISTRATOR documented in this encounter Plan of Treatment Not on filedocumented as of this encounter Visit Diagnoses Not on filedocumented in this encounter Care Teams Society Reporter Relationship Specialty Start Date End Date Brisa Smith PA-C PCP - General 07/30/10 04/18/15 [address] [place] [address] documented as of this encounter
--- OUTSIDE RECORDS SUMMARY | 2022-03-20 10:04 | XMS_ITS | Encounter Summary ---
:1989 Author Organization [employer] Address [address] [place] [address] Care Team Providers Name Role Phone Brisa Smith PA-C Primary Care Provider Encounter Details Date Type Department Care Team Description 06/25/2005 [facility] SPECIAL LIBRARIAN, ROUGHING MILL OPERATOR [address] [place] [address] [phone] (Wo rk) Social History Tobacco Use Types Packs/Day Years Used Date Smoking Tobacco: Never Assessed Sex Assigned at Date Recorded Not on file documented as of this encounter Last Filed Vital Signs Vital Sign Reading Time Taken Comments Blood Pressure 118/78 06/25/2005 8:09 AM PRODUCTION CLERK Pulse - - Temperature 36.3 ??C (97.3 ??F) 06/25/2005 8:09 AM PRODUCTION CLERK C: 36 .3 C Respiratory Rate - - Oxygen Saturation - - Inhaled Oxygen Concentration - - Weight 67.6 kg (148 lb 15.8 oz) 06/25/2005 8:09 AM PRODUCTION CLERK C: 67.6kg Height - - Body Mass Index - - documented in this encounter Progress Notes Lena Chiu - 06/25/2005 12:01 AM CST Progress Notes signed by KIMBERLY Guerrier at 06/27/05 7785 Author: KIMBERLY Gurerier Service: (none) Author Type: Nurse Practitioner Filed: 08/17/10 1145 Note Time: 06/25/05 0001 Status: Signed Wireless Internet Installer: KIMBERLY Guerrier (Nurse Practitioner) Clinic Visit SUBJECTIVE: [...] is remained on some multivitamins and a Khmer herbal product. If she stopped these for any period time she seems to be worse and that's why she continues on these products. Reports exposure to certified medical biller who was diagnosed with cytomegalovirus one week [...] face to face counseling and per plan. UCTION CLERK documented in this encounter Plan of Treatment Not on filedocumented as of this encounter Visit Diagnoses Not on filedocumented in this encounter Care Teams Supervisor Sewer Maintenance Relationship Specialty Start Date End Date Brisa Smith PA-C PCP - General 07/30/10 04/18/15 [address] [place] [address] documented as of this encounter
--- OUTSIDE RECORDS SUMMARY | 2022-03-20 10:04 | XMS_ITS | Encounter Summary ---
:1990 Author Organization [facility] Address [address] [place] [address] Care Team Providers Name Role Phone Brisa Smith PA-C Primary Care Provider Reason for Visit Reason Comments Other Encounter Details Date Type Department Care Team Description 08/01/2004 Telephone [facility] Rita Carlisle MD Other [facility] [address] [place] [address] [place] [address] [phone] (Wo rk) Social History Tobacco Use Types Packs/Day Years Used Date Smoking Tobacco: Never Assessed Sex Assigned at Date Recorded Not on file documented as of this encounter Progress Notes Center, Message - 08/01/2004 7:52 AM CDT Phone Note filed by Sponge at 08/13/101737 Author: Sponge Service: (none) Author Type: (none) Filed: 08/13/10 173 Note Time: 08/01/04751 Status: Signed Peoplesoft Consultant: Sponge X-ray calling as requested, right wrist is negative. Created on 01Aug2004 7:52am by DAWSON DILLON M On 01Aug2004 1:34pm GRISELDA GIBSON wrote: Talked to mom and results of x-ray given. Acknowledged by RITA VILLEGAS on 8:04am [facility] COURT CLERK documented in this encounter Plan of Treatment Not on filedocumented as of this encounter Visit Diagnoses Not on filedocumented in this encounter Care Teams Intermodal Dispatcher Relationship Specialty Start Date End Date Brisa Smith PA-C PCP - General 07/30/10 04/18/15 [address] [place] [address] documented as of this encounter
--- OUTSIDE RECORDS SUMMARY | 2022-03-20 10:04 | XMS_ITS | Encounter Summary ---
:1990 Author Organization [facility] Address [address] [place] [address] Care Team Providers Name Role Phone Brisa Smith PA-C Primary Care Provider Encounter Details Date Type Department Care Team Description 08/29/2004 Office Visit Ashkan Yan MD [facility] [employer] [facility] [address] [place] [address] [phone] (Wo rk) Social History Tobacco Use Types [...] 0551 Note Time: 08/29/04 0001 Status: Signed Key Worker: Ashkan Hernandes MD (Physician) NAME: MINO POSADAS MR: [id number] ACCT: [id number] VISIT: [id number] DICTATING CLINICIAN: ASHKAN HERNANDES MD JOB: [id number] CLINIC PROGRESS NOTE DATE OF VISIT: 08/29/2004 [...] her with a full course of antibiotics. [id number]:[id number] C: 09/04/04 08:31 DOCUMENT: [id number] documented in this encounter Plan of Treatment Not on filedocumented as of this encounter Visit Diagnoses Not on filedocumented in this encounter Care Teams Dog Handler Or Trainer Relationship Specialty Start Date End Date Brisa Smith PA-C PCP - General 07/30/10 04/18/15 [address] [place] [address] documented as of this encounter
--- OUTSIDE RECORDS SUMMARY | 2022-03-20 10:04 | XMS_ITS | Encounter Summary ---
:1990 Author Organization [facility] Address [address] [place] [address] Care Team Providers Name Role Phone Brisa Smith PA-C Primary Care Provider Encounter Details Date Type Department Care Team Description 08/29/2004 PN Conversion Only [place] Mary Ansari, [address] [place] [address] [address] [place] [address] (Wo rk) Social History Tobacco Use Types [...] Beta Strep Followup (08/29/2004 11:21 AM CDT) P athologist Signature Strep Screen SEE TEXT HP CONVERSION Comment: Patient: MINO POSADAS Rapid Strep Follow up Culture @ ? Collected: ??[id number] ??[id number] Source: Throat ?Processed: ??[id number] ??1121 Final Report ------ ?[id number] ??[id number] No beta hemolytic Strep group A isolated . @ = Rapid F/U Cult Performed at ??[address] [place] ?[address] Specimen (Source) Anatomical Collection Method Collection Time Re ceived Time Location / / Volume Laterality 08/29/2004 11:21 AM CDT Mary Hernandes MD LAB_1 Performing Organization Address City/[facility]/ZIP Code Phon e Number HP CONVERSION (ABNORMAL) Complete Blood Count-W/Diff (08/29/2004 11:01 AM CDT) [facility] gist Method Time Signature White Blood [...] - HP CONVERSION Hemoglobin Conc 36.5 gm/dL [place] RDW 12.8 11.0 - HP CONVERSION 15.0 [...] CONVERSION Mononucleosis Screen (08/29/2004 11:01 AM CDT) [facility] gist Method Time Signature Infectious Negative Negative HP CONVERSION Mononucleosis Screen Specimen (Source) Anatomical Collection Method Collection Time Re ceived Time Location / / Volume Laterality 08/29/2004 11:01 AM CDT Mary Hernandes MD LAB_1 Performing Organization Address City/State/ZIP Code Phon e Number HP CONVERSION documented in this encounter Visit Diagnoses Not on filedocumented in this encounter Care Teams Supervisor Air Conditioning Installer Relationship Specialty Start Date End Date Brisa Smith PA-C PCP - General 07/30/10 04/18/15 [address] [place] [address] documented as of this encounter
--- OUTSIDE RECORDS SUMMARY | 2022-03-20 10:04 | XMS_ITS | Encounter Summary ---
:1990 Author Organization [facility] Address [address], [place] [address] Care Team Providers Name Role Phone Brisa Smith PA-C Primary Care Provider Encounter Details Date Type Department Care Team Description 03/05/2005 PN Conversion Only [place] CONVERSION Lena Chiu, TAPE MAKER, [address] [address] [address] [address] (Wo rk) Social History Tobacco Use Types Packs/Day Years Used Date Smoking Tobacco: Never Assessed Sex Assigned at Date Recorded Not on file documented as of this encounter Plan of Treatment Not on filedocumented as of this encounter Procedures Procedure Name Priority Date/Time Associated Comments Diagnosis STREP GROUP A ANTIGEN Routine 03/05/2005 4:21 PM Results for this TEST ACID PLANT HELPER procedure are i n the results section. BETA STREP FOLLOWUP Routine 03/05/2005 4:21 PM Re sults for this ACID PLANT HELPER procedure are i n the results section. THYROID STIMULATING Routine 03/05/2005 3:47 PM Re sults for this HORMONE ACID PLANT HELPER procedure are i n the results section. MONONUCLEOSIS SCREEN Routine 03/05/2005 3:47 PM R esults for this ACID PLANT HELPER procedure are i n the results section. COMPLETE BLOOD Routine 03/05/2005 3:47 PM Results for this COUNT-W/DIFF ACID PLANT HELPER procedure are i n the results section. FERRITIN Routine 03/05/2005 3:47 PM Results f or this ACID PLANT HELPER procedure are i n the results section. documented in this encounter Results Strep Group A Antigen Test (03/05/2005 4:21 PM ACID PLANT HELPER) [facility] Time Signature Strep Group A Negative Negative HP CONVERSION Antigen Test Comment: Culture to follow. Specimen (Source) Anatomical Collection Method Collection Time Re ceived Time Location / / Volume Laterality 03/05/2005 4:21 PM ACID PLANT HELPER Lena Chiu APRN, ROSA LAB_1 Performing Organization Address [facility] Phon e Number HP CONVERSION Beta Strep Followup (03/05/2005 4:21 PM ACID PLANT HELPER) athologist Signature Strep Screen SEE TEXT HP CONVERSION Comment: Patient: MINO POSADAS Rapid Strep Follow up Culture @ ? Collected: ??[id number] ??[id number] Source: Throat ?Processed: ??[id number] ??[id number] Final Report ------ ?[id number] ??[id number] No beta hemolytic Strep group A isolated . @ = Rapid F/U Cult Performed at ??[address] [place], [place] ?[address] Specimen (Source) Anatomical Collection Method Collection Time Re ceived Time Location / / Volume Laterality 03/05/2005 4:21 PM ACID PLANT HELPER Lena Chiu APRN, TUTORING ASSISTANT LAB_1 Performing Organization Address [facility] Phon e Number HP CONVERSION (ABNORMAL) Complete Blood Count-W/Diff (03/05/2005 3:47 PM ACID PLANT HELPER) [facility] Method Time Signature White Blood Cell 7.5 [...] - HP CONVERSION Hemoglobin Conc 36.5 gm/dL [place] RDW 12.3 11.0 - HP CONVERSION 15.0 [...] / / Volume Laterality 03/05/2005 3:47 PM ACID PLANT HELPER Lena Chiu APRN, CNP LAB_1 Performing Organization Address City/[facility] Code Phon e Number HP CONVERSION Mononucleosis Screen (03/05/2005 3:47 PM ACID PLANT HELPER) [facility] Method Time Signature Infectious Negative Negative HP CONVERSION Mononucleosis Screen Specimen (Source) Anatomical Collection Method Collection Time Re ceived Time Location / / Volume Laterality 03/05/2005 3:47 PM ACID PLANT HELPER Lena Chiu APRN, CNP LAB_1 Performing Organization Address City/[facility]/ZIP Code Phon e Number HP CONVERSION Thyroid Stimulating Hormone (03/05/2005 3:47 PM ACID PLANT HELPER) athologist Signature Thyroid 1.20 0.20 - HP CONVERSION Stimulating 4.50 Hormone uIU/mL Specimen (Source) Anatomical Collection Method Collection Time Re ceived Time Location / / Volume Laterality 03/05/2005 3:47 PM ACID PLANT HELPER Lena Chiu APRN, CNP LAB_1 Performing Organization Address City/State/ZIP Code Phon e Number HP CONVERSION Ferritin (03/05/2005 3:47 PM ACID PLANT HELPER) P athologist Signature Ferritin Serum 13 10 - 291 HP CONVERSION ng/mL Specimen (Source) Anatomical Collection Method Collection Time Re ceived Time Location / / Volume Laterality 03/05/2005 3:47 PM ACID PLANT HELPER Lena Chiu TAPE MAKER, TUTORING ASSISTANT LAB_1 Performing Organization Address City/State/ZIP Code Phon e Number HP CONVERSION documented in this encounter Visit Diagnoses Not on filedocumented in this encounter Care Teams Film Reader Relationship Specialty Start Date End Date Brisa Smith PA-C PCP - General 07/30/10 04/18/15 [address] [place] [address] documented as of this encounter
--- OUTSIDE RECORDS SUMMARY | 2022-03-20 10:04 | XMS_ITS | Encounter Summary ---
:1990 Author Organization [facility] Address [address] [place] [address] Care Team Providers Name Role Phone Brisa Smith PA-C Primary Care Provider Encounter Details Date Type Department Care Team Description 07/10/2004 Office Visit [facility] [place] [address] [place], [place] [address] [place] [address] [phone] Social History Tobacco Use Types Packs/Day Years [...] 0452 Note Time: 07/10/04 0001 Status: Signed Lockstitch Hemmer: Ailin Piña MD (Physician) NAME: MINO POSADAS MR: [id number] ACCT: [id number] VISIT: [id number] DICTATING CLINICIAN: AILIN PIÑA MD JOB: [id number] CLINIC PROGRESS NOTE DATE OF VISIT: 07/10/2004 [...] for five days. FINAL DIAGNOSIS: Otitis media. [id number] C: 07/11/04 15:45 DOCUMENT: [id number] documented in this encounter Plan of Treatment Not on filedocumented as of this encounter Visit Diagnoses Not on filedocumented in this encounter Care Teams Smelting Engineer Relationship Specialty Start Date End Date Brisa Smith PA-C PCP - General 07/30/10 04/18/15 [address] [place] [address] documented as of this encounter
--- OUTSIDE RECORDS SUMMARY | 2022-03-20 10:04 | XMS_ITS | Encounter Summary ---
:1990 Author [facility] Address [address] [facility] [place] [place] [address] Care Team Providers Name Role Phone Brisa Smith PA-C Primary Care Provider Encounter Details Date Type Department Care Team Description 05/22/2005 PN Conversion Only BANCROFT CONVERSIO N Ellen Vieira [address] [facility] [place] [address] [facility] [place], [place] [address] Social History Tobacco Use Types Packs/Day Years Used Date Smoking Tobacco: Never Assessed Sex Assigned at Date Recorded Not on file documented as of this encounter Plan of Treatment Not on filedocumented as of this encounter Procedures Procedure Name Priority Date/Time Associated Diagnosis Comme nts STREP GROUP A Routine 05/22/2005 6:16 PM Results for this ANTIGEN TEST REEL SLITTER procedure are i n the results section. BETA STREP FOLLOWUP Routine 05/22/2005 6:16 PM Re sults for this REEL SLITTER procedure are i n the results section. documented in this encounter Results Strep Group A Antigen Test (05/22/2005 6:16 PM REEL SLITTER) Analysis Performed At Patho logist Time Signature Strep Group A Negative Negative HP CONVERSION Antigen Test Comment: Culture to follow. Specimen (Source) Anatomical Collection Method Collection Time Re ceived Time Location / / Volume Laterality 05/22/2005 6:16 PM REEL SLITTER Ellen Vieira PA-C LAB_1 Performing Organization Address City/State/ZIP Code Phon e Number HP CONVERSION Beta Strep Followup (05/22/2005 6:16 PM REEL SLITTER) P athologist Signature Strep Screen SEE TEXT HP CONVERSION Comment: Patient: MINO POSADAS Rapid Strep Follow up Culture @ ? Collected: ?181 Source: Throat ?Processed: ?1818 ? 1V Final Report ------ ?1327 No beta hemolytic Strep group A isolated . @ = Rapid F/U Cult Performed at ??[address] [place] ?[address] Specimen (Source) Anatomical Collection Method Collection Time Re ceived Time Location / / Volume Laterality 05/22/2005 6:16 PM REEL SLITTER Ellen Vieira PA-C LAB_1 Performing Organization Address City/State/ZIP Code Phon e Number HP CONVERSION documented in this encounter Visit Diagnoses Not on filedocumented in this encounter Care Teams Muck Miner Relationship Specialty Start Date End Date Brisa Smith PA-C PCP - General 07/30/10 04/18/15 [address] [place], [place] [address] documented as of this encounter
--- OUTSIDE RECORDS SUMMARY | 2022-03-20 10:04 | XMS_ITS | Encounter Summary ---
:1990 Author [facility] Address [address] [address] Care Team Providers Name Role Phone Brisa Smith PA-C Primary Care Provider Reason for Visit Reason Comments Other Encounter Details Date Type Department Care Team Description 06/25/2005 Telephone Yerbabuena Softwarema [employer], Message Other [address] [place] [address] Social History Tobacco Use Types Packs/Day Years Used Date Smoking Tobacco: Never Assessed Sex Assigned at Date Recorded Not on file documented as of this encounter Progress Notes Chelo Montiel - 06/25/2005 11:13 AM CST Phone Note filed by Chelo Montiel at 08/14/10121 Author: Chelo Montiel Service: (none) Author Type: (none) Filed: 08/14/10121 Note Time: 06/25/05 1113 Status: Signed Operations Advisor: Rudy Strong Pt's mom (Mildred) calling to inform Lena Chiu, that Infectious Disease won't see people under 18 years old.(Lena had referred her daughter there) She can be reached at [phone], and you are able to leave a detailed messgae. Created on 25Jun2005 11:13am by CHELO MONTIEL On 25Jun2005 3:00pm LENA CHIU wrote: Dawit Weiner MD is a pediatric MD in [facility]. Phone #[phone]. If she cannot get in with Dr Weiner, then Wolf Bran MD at [facility] [phone]. Acknowledged by LENA CHIU on 3:00pm On 25Jun2005 3:19pm LENA LEE wrote: Pt's mother was called and given the above information. INIST FIRST CLASS documented in this encounter Plan of Treatment Not on filedocumented as of this encounter Visit Diagnoses Not on filedocumented in this encounter Care Teams Franchise Consultant Relationship Specialty Start Date End Date Brsia Smith PA-C PCP - General 07/30/10 04/18/15 [address] [place] [address] documented as of this encounter
--- OUTSIDE RECORDS SUMMARY | 2022-03-20 10:04 | XMS_ITS | Encounter Summary ---
:1990 Author [facility] Address [address] [place] [address] Care Team Providers Name Role Phone Unavailable Primary Care Provider Unavailable Encounter Details Date Type Department Care Team Description 11/02/2004 Hospital Encounter HOAHAOISM CONVERSION Jose Jimenes MD Social History Tobacco [...] likely a ?partially ruptured or leaked ganglion. [facility]/735604 Dictating DANIEL VICK RADIOLOGIST Narrative 11/02/2004 5:59 [...] ulnar neurovascular structures appear intact. Procedure Note DoreenchayoDaniel wang Willie - 06/29/2016Formattin g of this note [...] a pa rtially ruptured or leaked ganglion. [facility]/230910 Dictating DANIEL VICK RADIOLOGIST Jose Jimenes MD RAD MRI documented in this encounter Visit Diagnoses Not on filedocumented in this encounter
--- OUTSIDE RECORDS SUMMARY | 2022-03-20 10:04 | XMS_ITS | Encounter Summary ---
:1990 Author Organization [facility] Address [address] [place] [address] Care Team Providers Name Role Phone Brisa Smith PA-C Primary Care Provider Encounter Details Date Type Department Care Team Description 03/25/2005 Office Visit [facility] Lena Wright, BEAM WARPER, SUPERVISOR KENNEL [address] [place] [address] [phone] (Wo rk) Social History Tobacco Use Types Packs/Day Years Used Date Smoking Tobacco: Never Assessed Sex Assigned at Date Recorded Not on file documented as of this encounter Last Filed Vital Signs Vital Sign Reading Time Taken Comments Blood Pressure 104/60 03/25/2005 2:07 PM MISSILE TRACKING TECHNICIAN Pulse - - Temperature 36.9 ??C (98.4 ??F) 03/25/2005 2:07 PM ORAL C: 3 6.9 C MISSILE TRACKING TECHNICIAN Respiratory Rate - - Oxygen Saturation - - Inhaled Oxygen Concentration - - Weight 64.4 kg (142 lb) 03/25/2005 2:07 PM C: 64.4kg MISSILE TRACKING TECHNICIAN Height - - Body Mass Index - - documented in this encounter Progress Notes Lena Chiu - 03/25/2005 12:01 AM CST Progress Notes signed by KMIBERLY Guerrier at 03/26/05 1444 Author: KIMBERLY Guerrier Service: (none) Author Type: Nurse Practitioner Filed: 08/17/10 0950 Note Time: 03/25/05 0001 Status: Signed Knobber: KIMBERLY Guerrier (Nurse Practitioner) NAME: MINO POSADAS MR: [id number] ACCT: [id number] VISIT: [id number] DICTATING CLINICIAN: LENA CHIU NP JOB: [id number] CLINIC PROGRESS NOTE DATE OF VISIT: 03/25/2005 SUBJECTIVE: Chief Complaint: A 14-year-old female follows up for recurrent sore throat, fatigue, intermittent nausea, headaches. Seen early February (03/19/2005). Symptoms improved for a while, was not completely 100% better but now symptoms recurred. These have been occurring on and off since this past spring. She is followed with a central supply worker and chiropractor who has her on several [...] lb in the past two weeks. Attends [employer], a student, plays volleyball. Has been missing [...] swollen glands. MEDICATIONS: COQ10, multivitamins, NADH, a Turkish herb. Monolaurin supplement, Cordyceps (Turkish mushroom supplement). Taking these supplements t.i.d. ADR/ALLERGIES: [...] No CVAT. LABS: CBC normal. UA normal. [place] screen negative. Strep culture negative 03/05/2005. ASSESSMENT: Recurrent symptoms fatigue, sore throat, nausea, abdominal pain, headache, feeling feverish; unclear etiology; possibly mono-like virus. PLAN: Checking serum [place] virus, IgG, IgM; parvovirus IgG, IgM and CMV IgG, IgM. Notify once available. If these are negative and the symptoms are persisting will consult one of my physician colleagues for any further work up. Continue adequate fluid hydration. Depending on lab results or if symptoms persist; plan follow up and may consider having her stop some of the Turkish herbal supplements. She follows with Junior Williamson at [facility] in [place], [place] (Director Strategy/Chiropractor). FINAL IMPRESSION: Constellation of symptoms including fatigue, sore throat, intermittent abdominal pain, nausea, headache ALK:[id number] C: 03/26/05 13:48 DOCUMENT: [id number] ILE TRACKING TECHNICIAN documented in this encounter Plan of Treatment Not on filedocumented as of this encounter Visit Diagnoses Not on filedocumented in this encounter Care Teams Siding Stapler Relationship Specialty Start Date End Date Brisa Smith PA-C PCP - General 07/30/10 04/18/15 [address] [place] [address] documented as of this encounter
--- OUTSIDE RECORDS SUMMARY | 2022-03-20 10:04 | XMS_ITS | Encounter Summary ---
:1990 Author Organization [facility] Address [address] [place] [address] Care Team Providers Name Role Phone Brisa Smith PA-C Primary Care Provider Encounter Details Date Type Department Care Team Description [facility]/05[facility]2005 [facility] DIGITAL PROJECT COORDINATOR, SENIOR COST ACCOUNTANT [address] [place] [address] [phone] (Wo rk) Social History Tobacco Use Types Packs/Day Years Used Date Smoking Tobacco: Never Assessed Sex Assigned at Date Recorded Not on file documented as of this encounter Last Filed Vital Signs Vital Sign Reading Time Taken Comments Blood Pressure 108/66 03/05/2005 3:20 PM CLIENT APPLICATION SUPPORT ENGINEER Pulse - - Temperature 36.9 ??C (98.4 ??F) 03/05/2005 3:20 PM ORAL C: 3 6.9 C CLIENT APPLICATION SUPPORT ENGINEER Respiratory Rate - - Oxygen Saturation - - Inhaled Oxygen Concentration - - Weight 65.3 kg (143 lb 15.7 03/05/2005 3:20 PM C: 65.3k g oz) CLIENT APPLICATION SUPPORT ENGINEER Height - - Body Mass Index - - documented in this encounter Progress Notes Lena Chiu - 03/05/2005 12:01 AM CST Progress Notes signed by KIMBERLY Guerrier at 03/06/05 1526 Author: KIMBERLY Guerrier Service: (none) Author Type: Nurse Practitioner Filed: 08/17/10 0927 Note Time: 03/05/05 0001 Status: Signed Fire Captain Marine: KIMBERLY Guerrier (Nurse Practitioner) NAME: MINO POSADAS MR: [id number] ACCT: [id number] VISIT: [id number] DICTATING CLINICIAN: LENA CHIU NP JOB: [id number] CLINIC PROGRESS NOTE DATE OF VISIT: 03/05/2005 [...] a probable viral syndrome. She then sought early breastfeeding care specialist who specializes in supplements, started on the supplements, and started feeling better for several months. She was not feeling well for the past month or two, resumed the early breastfeeding care specialist and supplements, felt sick for about a week, and now reports feeling better. She is physically active, attends the 10th grade at [employer], A student. Reports no concerns with any relationships at home or school. Sexually abstinent. No concerns for . LMP 2 weeks ago. Nonsmoker. No alcohol use or illicit drugs. Patient was interviewed separately from her mother. No urine frequency, urge, or dysuria. No concerns for depression. MEDICATIONS: Several supplements including CoQ10 several Bahraini herbs, and a pill called Cell Revive. [...] organomegaly, masses, or guarding. No CVAT. LABS: [place] screen negative. Rapid strep screen negative. WBC [...] I am not clear as to what Bahraini herbs she is on. If she reports any other unusual concerns or symptoms, I would ask her to stop those and follow up. FINAL IMPRESSION: Fatigue, sore throat, and headache, suspect viral etiology, improving. [id number]:[id number] C: 03/06/05 09:29 DOCUMENT: [id number] NT APPLICATION SUPPORT ENGINEER documented in this encounter Plan of Treatment Not on filedocumented as of this encounter Visit Diagnoses Not on filedocumented in this encounter Care Teams Corporate Strategy Intern Relationship Specialty Start Date End Date Brisa Smith PA-C PCP - General 07/30/10 04/18/15 [address] [place] [address] documented as of this encounter
--- OUTSIDE RECORDS SUMMARY | 2022-03-20 10:04 | XMS_ITS | Encounter Summary ---
:1990 Author [facility] Address [address] [place] [address] Care Team Providers Name Role Phone Brisa Smith PA-C Primary Care Provider Encounter Details Date Type Department Care Team Description 12/06/2004 [facility] Jose Flynn MD Orthopedics [address] [place] [address] Social History Tobacco Use Types Packs/Day Years Used Date Smoking Tobacco: Never Assessed Sex Assigned at Date Recorded Not on file documented as of this encounter Progress Notes Ranjith Garcia - 12/06/2004 12:01 AM CDT Progress Notes signed by at 12/12/04 1200 Author: Ranjith Garcia MD Service: (none) Author Type: (none) Filed: 08/17/10 0739 Note Time: 12/06/04 0001 Status: Signed Button Grader: Rudy Conversion NAME: MINO POSADAS MR: [id number] ACCT: [id number] VISIT: [id number] DICTATING CLINICIAN: RANJITH GARCIA MD,MPH JOB: [id number] CLINIC PROGRESS NOTE DATE OF VISIT: 12/06/2004 [...] guard here for the next few weeks. [id number]:[id number] C: 12/06/04 09:12 DOCUMENT: [id number] CAL MIXER documented in this encounter Plan of Treatment Not on filedocumented as of this encounter Visit Diagnoses Not on filedocumented in this encounter Care Teams Lumber Tying Machine Operator Relationship Specialty Start Date End Date Brisa Smith PA-C PCP - General 07/30/10 04/18/15 [address] [place] [address] documented as of this encounter
--- OUTSIDE RECORDS SUMMARY | 2022-03-20 10:04 | XMS_ITS | Encounter Summary ---
:1990 Author Organization [facility] Address [address] [place] [address] Care Team Providers Name Role Phone Brisa Smith PA-C Primary Care Provider Encounter Details Date Type Department Care Team Description 11/02/2004 Office Visit [facility] [place] [address] [place] [address] [phone] (Wo rk) Social History Tobacco Use Types [...] 0700 Note Time: 11/02/04 0001 Status: Signed De Icer Finisher: Tyrone Greer MD (Physician) NAME: MINO POSADAS MR: [id number] ACCT: [id number] VISIT: [id number] DICTATING CLINICIAN: TYRONE GREER MD,MS JOB: [id number] CLINIC PROGRESS NOTE DATE OF VISIT: 11/02/2004 [...] different cast. He agreed to do so. [id number] C: 11/03/04 22:04 DOCUMENT: [id number] documented in this encounter Plan of Treatment Not on filedocumented as of this encounter Visit Diagnoses Not on filedocumented in this encounter Care Teams Bpm Solution Architect Relationship Specialty Start Date End Date Brisa Smith PA-C PCP - General 07/30/10 04/18/15 [address] [place] [address] documented as of this encounter
--- OUTSIDE RECORDS SUMMARY | 2022-03-20 10:04 | XMS_ITS | Encounter Summary ---
:1990 Author Organization [facility] Address [address], [place] [address] Care Team Providers Name Role Phone Brisa Smith PA-C Primary Care Provider Encounter Details Date Type Department Care Team Description 03/25/2005 PN Conversion Only HELENA CONVERSION Lena Chiu, NEUROSURGICAL NURSE PRACTITIONER, [address] [place] [address] [address] [address] (Wo rk) Social History Tobacco Use Types Packs/Day Years Used Date Smoking Tobacco: Never Assessed Sex Assigned at Date Recorded Not on file documented as of this encounter Plan of Treatment Not on filedocumented as of this encounter Procedures Procedure Name Priority Date/Time Associated Comments Diagnosis PARVOVIRUS B19 IGG & IGM Routine 03/25/2005 2:38 Results for this ANTIBODIES PM SOFTWARE TECHNICIAN procedure are i n the results section. ISA ALTAMIRANO VIRUS PANEL Routine 03/25/2005 2:38 Results for this PM SOFTWARE TECHNICIAN procedure are i n the results section. CYTOMEGALOVIRUS IGM Routine 03/25/2005 2:38 Resul ts for this ANTIBODY PM SOFTWARE TECHNICIAN procedure are i n the results section. CYTOMEGALOVIRUS IGG Routine 03/25/2005 2:38 Resul ts for this ANTIBODY PM SOFTWARE TECHNICIAN procedure are i n the results section. URINALYSIS COMPLETE Routine 03/25/2005 2:38 Resul ts for this PM SOFTWARE TECHNICIAN procedure are i n the results section. MONONUCLEOSIS SCREEN Routine 03/25/2005 2:38 Resu lts for this PM SOFTWARE TECHNICIAN procedure are i n the results section. COMPLETE BLOOD Routine 03/25/2005 2:38 Results fo r this COUNT-W/DIFF PM SOFTWARE TECHNICIAN procedure are i n the results section. documented in this encounter Results Complete Blood Count-W/Diff (03/25/2005 2:38 PM SOFTWARE TECHNICIAN) [facility] Method Time Signature White Blood Cell 5.7 [...] - HP CONVERSION Hemoglobin Conc 36.5 gm/dL [place] RDW 12.2 11.0 - HP CONVERSION 15.0 [...] / / Volume Laterality 03/25/2005 2:38 PM SOFTWARE TECHNICIAN Lena Chiu APRN, CNP LAB_1 Performing Organization Address City/[facility]/ZIP Code Phon e Number HP CONVERSION Mononucleosis Screen (03/25/2005 2:38 PM SOFTWARE TECHNICIAN) [facility] Method Time Signature Infectious Negative Negative HP CONVERSION Mononucleosis Screen Specimen (Source) Anatomical Collection Method Collection Time Re ceived Time Location / / Volume Laterality 03/25/2005 2:38 PM SOFTWARE TECHNICIAN Lena Chiu APRN, CNP LAB_1 Performing Organization Address City/State/ZIP Code Phon e Number HP CONVERSION Urinalysis Complete (03/25/2005 2:38 PM SOFTWARE TECHNICIAN) [facility] Method Time Signature Glucose, Negative Neg-Trac HP CONVERSION Qualitative U Protein Urine Negative Neg-Trac HP CONVERSION Ketones Negative Negative HP CONVERSION U BILI Negative Negative HP CONVERSION U Specific 1.025 1.005 - 25 HP CONVERSION [place] Blood Urine Negative Negative HP CONVERSION pH [...] / / Volume Laterality 03/25/2005 2:38 PM SOFTWARE TECHNICIAN Lena Chiu NEUROSURGICAL NURSE PRACTITIONER, MEDICAL OFFICE RECEPTIONIST LAB_1 Performing Organization Address City/State/ZIP Code Phon e Number HP CONVERSION Isa [place] Virus Panel (03/25/2005 2:38 PM SOFTWARE TECHNICIAN) athologist Signature [place] 0.35 HP CONVERSION Vca [...] / / Volume Laterality 03/25/2005 2:38 PM SOFTWARE TECHNICIAN Lena Chiu APRN, MEDICAL OFFICE RECEPTIONIST LAB_1 Performing Organization Address City/State/ZIP Code Phon e Number HP CONVERSION Parvovirus B19 Igg & Igm Antibodies (03/25/2005 2:38 PM SOFTWARE TECHNICIAN) athologist Signature Parvovirus B19 0.28 HP CONVERSION [...] / / Volume Laterality 03/25/2005 2:38 PM SOFTWARE TECHNICIAN Lena Chiu APRN, ROSA LAB_1 Performing Organization Address [facility] Phon e Number HP CONVERSION Cytomegalovirus IgG Antibody (03/25/2005 2:38 PM SOFTWARE TECHNICIAN) [facility] Method Time Signature Cytomegalovirus IgG 36 AU [...] / / Volume Laterality 03/25/2005 2:38 PM SOFTWARE TECHNICIAN Lena Chiu APRN, CNP LAB_1 Performing Organization Address [facility] Phon e Number HP CONVERSION Cytomegalovirus IgM Antibody (03/25/2005 2:38 PM SOFTWARE TECHNICIAN) [facility] gist Method Time Signature Cytomegalovirus IgM [...] / / Volume Laterality 03/25/2005 2:38 PM SOFTWARE TECHNICIAN Lena Chiu APRN, ROSA LAB_1 Performing Organization Address City/State/ZIP Code Phon e Number HP CONVERSION documented in this encounter Visit Diagnoses Not on filedocumented in this encounter Care Teams Director Of Casino Marketing Relationship Specialty Start Date End Date Brisa Smith PA-C PCP - General 07/30/10 04/18/15 [address] [place] [address] documented as of this encounter
--- OUTSIDE RECORDS SUMMARY | 2022-03-20 10:04 | XMS_ITS | Encounter Summary ---
:1990 [facility] Address [address] [place] [address] Care Team Providers Name Role Phone Brisa Smith PA-C Primary Care Provider Encounter Details Date Type Department Care Team Description 05/10/2004 Office Visit [facility], Caitlin Stern [place] [address] [address] Florian [phone] [place] [id number] (Wo rk) Social History Tobacco Use Types [...] 0339 Note Time: 05/10/04 0001 Status: Signed Threading Machine Setter: JOVANNA Antonio (Nurse Practitioner) NAME: MINO POSADAS MR: [id number] ACCT: [id number] VISIT: [id number] DICTATING CLINICIAN: JOVANNA ANTONIO JOB: [id number] CLINIC PROGRESS NOTE DATE OF VISIT: 05/10/2004 SUBJECTIVE: Mino is in today with a three-week history of a deep, persistent cough. Mom says that cough has gone on since [place]. She has really never felt good during [...] five days. Will call with pertussis results. [id number]:[id number] C: 05/10/04 21:08 DOCUMENT: [id number] ESS AREA SUPERVISOR documented in this encounter Plan of Treatment Not on filedocumented as of this encounter Procedures Procedure Name Priority Date/Time Associated Diagnosis Comme nts XR CHEST 2 VIEWS Routine 05/10/2004 9:51 AM Resul ts for this PROCESS AREA SUPERVISOR procedure are i n the results section. documented in this encounter Results XR Chest 2 Views (05/10/2004 9:51 AM PROCESS AREA SUPERVISOR) Anatomical Region Laterality Modality Chest, Lung Other Specimen (Source) Anatomical Location Collection Method / Collectio n Time Received Time / Laterality Volume Narrative 05/10/2004 9:51 AM PROCESS AREA SUPERVISOR Impression: Normal chest. Findings: CH1 The cardiovascular structures appear nor mal. ??No evidence of active pulmonary disease. Dictating SANJEEV RICO RADIOLOGIST Procedure Note Leena Zelaya - 06/29/2016 Impression: Normal chest. Findings: CH1 The cardiovascular structures appear nor mal. No evidence of active pulmonary disease. Dictating SANJEEV RICO RADIOLOGIST Lillian Rosas TIME BROKER, VICE PRESIDENT FOR PHILANTHROPY RAD GD documented in this encounter Visit Diagnoses Not on filedocumented in this encounter Care Teams Convict Guard Relationship Specialty Start Date End Date Brisa Smith PA-C PCP - General 07/30/10 04/18/15 [address] [place] [address] documented as of this encounter
--- OUTSIDE RECORDS SUMMARY | 2022-03-20 10:04 | XMS_ITS | Encounter Summary ---
:1990 Author [facility] Address [address] [place] [address] Care Team Providers Name Role Phone Brisa Smith PA-C Primary Care Provider Encounter Details Date Type Department Care Team Description 07/31/2004 Office Visit [facility] Rita Carlisle MD [facility] [employer] [id number] [place] [address] [phone] (Wo rk) Social History Tobacco Use Types [...] 0515 Note Time: 07/31/04 0001 Status: Signed Manager Audit: Rita Ruiz MD (Physician) NAME: MINO POSADAS MR: [id number] ACCT: [id number] VISIT: [id number] DICTATING CLINICIAN: RITA RUIZ MD JOB: [id number] CLINIC PROGRESS NOTE DATE OF VISIT: 07/31/2004 [...] persistent pain, she should follow up p.r.n. [id number] C: 08/01/04 13:34 DOCUMENT: [id number] documented in this encounter Plan of Treatment [...] on filedocumented in this encounter Care Teams Blocker Hand Relationship Specialty Start Date End Date Brisa Smith PA-C PCP - General 07/30/10 04/18/15 [address] [place] [address] documented as of this encounter
--- OUTSIDE RECORDS SUMMARY | 2022-03-20 10:04 | XMS_ITS | Encounter Summary ---
:1990 Author Organization [facility] Address [address] [address] Care Team Providers Name Role Phone Brisa Smith PA-C Primary Care Provider Encounter Details Date Type Department Care Team Description 06/25/2005 PN Conversion Only [place] CONVERSION Lena Chiu, CONSERVATION ENFORCEMENT OFFICER, [address] [address] [address] [phone] (Wo rk) Social History Tobacco Use Types Packs/Day Years Used Date Smoking Tobacco: Never Assessed Sex Assigned at Date Recorded Not on file documented as of this encounter Plan of Treatment Not on filedocumented as of this encounter Procedures Procedure Name Priority Date/Time Associated Comments Diagnosis LYME DISEASE SCREEN Routine 06/25/2005 9:05 Resul ts for this (IN-HOUSE) AM CASHIER ASSISTANT procedure are i n the results section. PARVOVIRUS B19 IGG & IGM Routine 06/25/2005 9:05 Results for this ANTIBODIES AM CASHIER ASSISTANT procedure are i n the results section. CYTOMEGALOVIRUS IGM Routine 06/25/2005 9:05 Resul ts for this ANTIBODY AM CASHIER ASSISTANT procedure are i n the results section. CYTOMEGALOVIRUS IGG Routine 06/25/2005 9:05 Resul ts for this ANTIBODY AM CASHIER ASSISTANT procedure are i n the results section. HEMOGLOBIN, BLOOD Routine 06/25/2005 9:05 Results for this AM CASHIER ASSISTANT procedure are i n the results section. WBC, BLOOD Routine 06/25/2005 9:05 Results for this AM CASHIER ASSISTANT procedure are i n the results section. RHEUMATOID FACTOR, QUANT Routine 06/25/2005 9:05 Results for this AM CASHIER ASSISTANT procedure are i n the results section. FERRITIN Routine 06/25/2005 9:05 Results for this AM CASHIER ASSISTANT procedure are i n the results section. IRISH SCREEN Routine 06/25/2005 9:05 Results for this AM CASHIER ASSISTANT procedure are i n the results section. ESR Routine 06/25/2005 9:05 Results for this AM CASHIER ASSISTANT procedure are i n the results section. documented in this encounter Results Hemoglobin, Blood (06/25/2005 9:05 AM CASHIER ASSISTANT) P athologist Signature Hemoglobin 15.4 12.0 - 16.0 HP CONVERSION gm/dL Specimen (Source) Anatomical Collection Method Collection Time Re ceived Time Location / / Volume Laterality 06/25/2005 9:05 AM CASHIER ASSISTANT Lena Chiu APRN, CNP LAB_1 Performing Organization Address City/[facility]/ZIP Code Phon e Number HP CONVERSION WBC, Blood (06/25/2005 9:05 AM CASHIER ASSISTANT) athologist Signature White Blood 4.8 4.5 - 13.0 HP CONVERSION Cell Count K/cmm Specimen (Source) Anatomical Collection Method Collection Time Re ceived Time Location / / Volume Laterality 06/25/2005 9:05 AM CASHIER ASSISTANT Lena Chiu APRN, CNP LAB_1 Performing Organization Address City/[facility] Code Phon e Number HP CONVERSION ESR (06/25/2005 9:05 AM CASHIER ASSISTANT) Patholo gist Method Time Signature Sedimentation Rate 1 0 - 20 HP CONVERSI ON mm/Hr Specimen (Source) Anatomical Collection Method Collection Time Re ceived Time Location / / Volume Laterality 06/25/2005 9:05 AM CASHIER ASSISTANT Lena Chiu APRN, CNP LAB_1 Performing Organization Address City/[facility]/ZIP Code Phon e Number HP CONVERSION IRISH Screen (06/25/2005 9:05 AM CASHIER ASSISTANT) Analysis Performed At Patho logist Time Signature Anti-Nuclear Negative Negative HP CONVERSION Ab Specimen (Source) Anatomical Collection Method Collection Time Re ceived Time Location / / Volume Laterality 06/25/2005 9:05 AM CASHIER ASSISTANT Lena Chiu APRN, CNP LAB_1 Performing Organization Address City/[facility]/ZIP Code Phon e Number HP CONVERSION Rheumatoid Factor, Quant (06/25/2005 9:05 AM CASHIER ASSISTANT) Patholo gist Method Time Signature Rheumatoid Negative 0 - 20 HP CONVERSION Factor IU/mL Specimen (Source) Anatomical Collection Method Collection Time Re ceived Time Location / / Volume Laterality 06/25/2005 9:05 AM CASHIER ASSISTANT Lena Chiu APRN, ROSA LAB_1 Performing Organization Address [facility] Phon e Number HP CONVERSION Ferritin (06/25/2005 9:05 AM CASHIER ASSISTANT) athologist Signature Ferritin Serum 17 10 - 291 HP CONVERSION ng/mL Specimen (Source) Anatomical Collection Method Collection Time Re ceived Time Location / / Volume Laterality 06/25/2005 9:05 AM CASHIER ASSISTANT Lena Chiu APRN, CNP LAB_1 Performing Organization Address [facility] Phon e Number HP CONVERSION Parvovirus B19 Igg & Igm Antibodies (06/25/2005 9:05 AM CASHIER ASSISTANT) athologist Signature Parvovirus B19 0.16 HP CONVERSION [...] / / Volume Laterality 06/25/2005 9:05 AM CASHIER ASSISTANT Lena Chiu APRN, CNP LAB_1 Performing Organization Address [facility] Phon e Number HP CONVERSION Cytomegalovirus IgG Antibody (06/25/2005 9:05 AM CASHIER ASSISTANT) [employer] Method Time Signature Cytomegalovirus IgG 39 AU [...] / / Volume Laterality 06/25/2005 9:05 AM CASHIER ASSISTANT Lena Chiu APRN, CNP LAB_1 Performing Organization Address [facility] e Number HP CONVERSION Cytomegalovirus IgM Antibody (06/25/2005 9:05 AM CASHIER ASSISTANT) [employer] Method Time Signature Cytomegalovirus IgM 0.07 AU [...] / / Volume Laterality 06/25/2005 9:05 AM CASHIER ASSISTANT Lena Chiu APRN, CNP LAB_1 Performing Organization Address City/[facility] Phon e Number HP CONVERSION Lyme Disease Screen (IN-House) (06/25/2005 9:05 AM CASHIER ASSISTANT) athologist Signature Lyme Screen Negative No normal HP CONVERSION range Comment: A negative Lyme result does not rule out Lyme disease. ??If a current infection is suspected, please submit a second specimen in 4-6 weeks. Positive or equivocal specimens are auto matically sent to [facility] for Western Blot testing. Specimen (Source) Anatomical Collection Method Collection Time Re ceived Time Location / / Volume Laterality 06/25/2005 9:05 AM CASHIER ASSISTANT Lena Chiu APRN, CNP LAB_1 Performing Organization Address City/[facility] Phon e Number HP CONVERSION documented in this encounter Visit Diagnoses Not on filedocumented in this encounter Care Teams Private Tutors And Teachers Relationship Specialty Start Date End Date Brisa Smith PA-C PCP - General 07/30/10 04/18/15 [address] [place] [address] documented as of this encounter
--- OUTSIDE RECORDS SUMMARY | 2022-03-20 10:04 | XMS_ITS | Encounter Summary ---
:1990 Author Organization [facility] Address [address] [address] Care Team Providers Name Role Phone Brisa Smith PA-C Primary Care Provider Reason for Visit Reason Comments Other Encounter Details Date Type Department Care Team Description 04/04/2005 Telephone [facility], Message Other [address] [place] [address] Social History Tobacco Use Types Packs/Day Years Used Date Smoking Tobacco: Never Assessed Sex Assigned at Date Recorded Not on file documented as of this encounter Progress Notes Lena Chiu - 04/04/2005 6:22 PM CST Phone Note filed by KIMBERLY Guerrier at 08/13/102299 Author: KIMBERLY Guerrier Service: (none) Author Type: Nurse Practitioner Filed: 08/13/102299 Note Time: 04/04/051821 Status: Signed Cut Off Tender Glass: KIMBERLY Guerrier (Nurse Practitioner) Please notify ALL [...] is doing, but could stop the other herbal/upper sorbian products and see how she does. I [...] Mom calling for and received above msg. CHBOARD MANAGER documented in this encounter Plan of Treatment Not on filedocumented as of this encounter Visit Diagnoses Not on filedocumented in this encounter Care Teams Driller Helper Relationship Specialty Start Date End Date Brisa Smith PA-C PCP - General 07/30/10 04/18/15 [address] [place] [address] documented as of this encounter
--- OUTSIDE RECORDS SUMMARY | 2022-03-20 10:04 | XMS_ITS | Encounter Summary ---
:1990 Author Organization [facility] Address [address] [address] Care Team Providers Name Role Phone Brisa Smith PA-C Primary Care Provider Encounter Details Date Type Department Care Team Description 05/10/2004 PN Conversion Only [place] CONVERSION Ralph, [address], DATA COMPILER, [place] [address] [address] [place] [address] (Wo rk) Social History Tobacco Use Types Packs/Day Years Used Date Smoking Tobacco: Never Assessed Sex Assigned at Date Recorded Not on file documented as of this encounter Plan of Treatment Not on filedocumented as of this encounter Procedures Procedure Name Priority Date/Time Associated Comments Diagnosis BORDETELLA PERTUSSIS / Routine 05/10/2004 10:26 R esults for this PARAPERTUSSIS AM CALL CENTER OPERATOR procedure are in WASH-NASAL the results section. documented in this encounter Results Bordetella Pertussis And Para Pcr (05/10/2004 10:26 AM CALL CENTER OPERATOR) [facility] Method Time Signature Specimen Source NASAL [...] performed pursuant to an ag reement with [employer] The performance characteristics of this test were validated by [employer]. The U.S. Food and Drug Administration (FDA) has not ap proved this test. The results are not intended to be used as the sole means for clinical diagnosis or pat ient management decisions. Vee[employer] is authorized under [facility] Laboratory Improvement Amendments (CLIA) and by [...] / / Volume Laterality 05/10/2004 10:26 AM CALL CENTER OPERATOR Lillian Rosas APRN, REED DIPPER LAB_1 Performing Organization Address City/State/ZIP Code Phon e Number HP CONVERSION documented in this encounter Visit Diagnoses Not on filedocumented in this encounter Care Teams Beef Tagger Relationship Specialty Start Date End Date Brisa Smith PA-C PCP - General 07/30/10 04/18/15 [address] [place] [address] documented as of this encounter
--- OUTSIDE RECORDS SUMMARY | 2022-03-20 10:04 | XMS_ITS | Encounter Summary ---
:1990 Author Organization [facility] Address [address] [address] Care Team Providers Name Role Phone Brisa Smith PA-C Primary Care Provider Reason for Visit Reason Comments Other Encounter Details Date Type Department Care Team Description 10/22/2004 Telephone [facility] Isabel Garnica RN Other [address] | [employer] [place], [place] [id number] Social History Tobacco Use Types Packs/Day Years Used Date Smoking Tobacco: Never Assessed Sex Assigned at Date Recorded Not on file documented as of this encounter Progress Notes Isabel Oropeza RN - 10/22/2004 7:04 AM CDT Phone Note filed by Isabel Oropeza RN at 08/13/101901 Author: Isabel Oropeza RN Service: (none) Author Type: Registered Nurse Filed: 08/13/101901 Note Time: 10/22/04703 Status: Signed Garbage Person: Isabel Oropeza RN (Registered Nurse) Phone Care Triage Note IMPRESSION: Wrist pain SYMPTOMS: Injured right hand yesterday playing soccer. dad on field recommended she get an xray. Top of hand is sore, unable to patient partner. Mildly painful, no swelling. PATIENT INFORMATION: Problem [...] Created on 22Oct2004 7:04am by ISABEL OROPEZA ECTIONS COUNSELOR documented in this encounter Plan of Treatment Not on filedocumented as of this encounter Visit Diagnoses Not on filedocumented in this encounter Care Teams Petroleum Sampler Relationship Specialty Start Date End Date Brisa Smith PA-C PCP - General 07/30/10 04/18/15 [address] [place] [address] documented as of this encounter"
--- OUTSIDE RECORDS SUMMARY | 2022-03-20 10:04 | XMS_ITS | Encounter Summary ---
:1990 Author [facility] Address [address] [place] [address] Care Team Providers Name Role Phone Brisa Smith PA-C Primary Care Provider Encounter Details Date Type Department Care Team Description 01/17/2005 Office Visit [facility] Abhay Philippe MD [address] [place] [address] [place] [address] [place] [address] [phone] (Wo rk) Social History Tobacco Use Types [...] 08/17/10 0829 Note Time: 01/17/052016 Status: Signed Windows Systems Engineer: Abhay Philippe MD (Physician) NAME: MINO POSADAS MR: [id number] ACCT: [id number] VISIT: [id number] DICTATING CLINICIAN: ABHAY PHILIPPE MD JOB: [id number] CLINIC PROGRESS NOTE DATE OF VISIT: 01/17/2005 [...] does have slight abductor pain against resistance. PASTORAL MINISTRIES PROFESSOR otherwise intact. Did obtain AP and frog-leg x-rays of pelvis. No obvious avulsion fracture. ASSESSMENT: Clinically concerned about an occult avulsion fracture with the distinct popping sensation vs a muscle strain/tendinitis. PLAN: Did recommend crutches, nonweightbearing and follow up with Orthopedics in 1 week. Symptomatic care described. Discussed with father in the exam room and later with mother by phone. DIAGNOSIS/IMPRESSION: Hip pain. RGS:[id number] C: 01/23/05 15:15 DOCUMENT: [id number] documented in this encounter Plan of Treatment [...] or significant bone or joint ab normality. [id number] Dictating TORIBIO WHEELER RADIOLOGIST Procedure Note Toribio Roy - 06/29/2016Formatting o f this note might be different from the original. HISTORY: Pain with volleyball injury. No acute or significant bone or joint ab normality. [id number]/braulio Dictating TORIBIO WHEELER RADIOLOGIST Abhay Philippe MD RAD GD documented in this encounter Visit Diagnoses Not on filedocumented in this encounter Care Teams Skilled Laborer Relationship Specialty Start Date End Date Brisa Smith PAMimaC PCP - General 07/30/10 04/18/15 [address] [place] [address] documented as of this encounter
--- OUTSIDE RECORDS SUMMARY | 2022-03-20 10:04 | XMS_ITS | Encounter Summary ---
:1990 Author Organization [facility] Address [address] [address] Care Team Providers Name Role Phone Brisa Smith PA-C Primary Care Provider Reason for Visit Reason Comments Other Encounter Details Date Type Department Care Team Description 03/05/2005 Telephone [facility] Genoveva Villasenor LPN Other [address] [place] [address] Social History Tobacco Use Types Packs/Day Years Used Date Smoking Tobacco: Never Assessed Sex Assigned at Date Recorded Not on file documented as of this encounter Progress Notes Center, [facility] - 03/05/2005 7:57 AM CST Phone Note filed by Babybe at 08/13/102207 Author: Babybe Service: (none) Author Type: (none) Filed: 08/13/102207 Note Time: 03/05/05756 Status: Signed Woodyard Operator: Babybe Mom Shemar) calling to request a work-in this afternoon. She wants Hellen to get a mono test, and you have a few 15 minute openings. She can be reached at [phone]. Created on 05Mar2005 7:57am by DAWSON DILLON [...] daughter is scheduled for 151 today with Lena Chiu. Mari says, Thank you!! No call-back needed. Acknowledged by GENOVEVA JARQUIN on 10:02am BIT BUILDER documented in this encounter Plan of Treatment Not on filedocumented as of this encounter Visit Diagnoses Not on filedocumented in this encounter Care Teams Spanish Language Lecturer Relationship Specialty Start Date End Date Brisa Smith PA-C PCP - General 07/30/10 04/18/15 [address] [place] [address] documented as of this encounter
--- OUTSIDE RECORDS SUMMARY | 2022-03-20 10:04 | XMS_ITS | Encounter Summary ---
:1990 Author Organization [facility] Address [address] [place] [address] Care Team Providers Name Role Phone Brisa Smith PA-C Primary Care Provider Reason for Visit Reason Comments Other Encounter Details Date Type Department Care Team Description 01/18/2005 Telephone [facility], Message Other [address] [place] [address] Social History Tobacco Use Types Packs/Day Years Used Date Smoking Tobacco: Never Assessed Sex Assigned at Date Recorded Not on file documented as of this encounter [facility], Message - 01/18/2005 7:18 AM CDT Phone Note filed by POPVOX at 08/13/102054 Author: POP[employer]OX Service: (none) Author Type: (none) Filed: 08/13/102054 Note Time: 01/18/05717 Status: Signed Locomotive Electrician: POPVOX Mom Shemar) Hellen mortensen was in for an appointment yesterday and dad brought her. She'd like to know what went on during the visit. Please call [phone]. Created on 18Jan2005 7:18am by DAWSON DILLON [...] not able to get in next week. LITIES SPECIALIST documented in this encounter Plan of Treatment Not on filedocumented as of this encounter Visit Diagnoses Not on filedocumented in this encounter Care Teams Electro Optical Engineer Relationship Specialty Start Date End Date Brisa Smith PA-C PCP - General 07/30/10 04/18/15 [address] [place] [address] documented as of this encounter
--- OUTSIDE RECORDS SUMMARY | 2022-03-20 10:04 | XMS_ITS | Encounter Summary ---
:1990 Author Organization [facility] Address [address] [address] Care Team Providers Name Role Phone Brisa Smith PA-C Primary Care Provider Reason for Visit Reason Comments Other Encounter Details Date Type Department Care Team Description 03/12/2005 Telephone [facility] Kirti Kent Other [address] [place], [place] [address] Social History Tobacco Use Types Packs/Day Years Used Date Smoking Tobacco: Never Assessed Sex Assigned at Date Recorded Not on file documented as of this encounter Progress Notes Kirti Kent - 03/12/2005 5:53 PM CST Phone Note filed by Kirti Kent RN at 08/13/102221 Author: Kirti Kent RN Service: (none) Author Type: Registered Nurse Filed: 08/13/102221 Note Time: 03/12/051752 Status: Signed Driver License Reviewing Officer: Kirti Kent RN (Registered Nurse) Mom calling for immunizations needed tonight when they go to a meeting about vollyball. Gave mom the immunizations that were in the computer. All that she needed weren't there. Created on 12Mar2005 5:53pm by KIRTI KENT STAMPER documented in this encounter Plan of Treatment Not on filedocumented as of this encounter Visit Diagnoses Not on filedocumented in this encounter Care Teams Community Artist Relationship Specialty Start Date End Date Brisa Smith PA-C PCP - General 07/30/10 04/18/15 [address] [place] [address] documented as of this encounter
--- OUTSIDE RECORDS SUMMARY | 2022-03-20 10:04 | XMS_ITS | Encounter Summary ---
:1990 Author Organization [facility] Address [address] [address] Care Team Providers Name Role Phone Brisa Smith PA-C Primary Care Provider Reason for Visit Reason Comments Other Encounter Details Date Type Department Care Team Description 06/19/2005 Telephone Giving Assistant, Message Other [address] [place] [address] Social History Tobacco Use Types [...] 08/14/10109 Note Time: 06/19/05 1028 Status: Signed Survey Rodman: Chelo Álvarez RN (Registered Nurse) Mom, Mildred, calling. Pt.isn't any better. Wants to know what next step is. Pt.has had sore throat that comes and goes, fatigue, body aches for several months, was seen 05/22/05 in . If she exerts herself at all she is wiped out. Was home yesterday from school after being at [employer]this weekend. Mom will be at [phone] after 11. Created on 19Jun2005 10:28am by [...] need an appt. Transferred to appt. desk. ITIAN TEACHER documented in this encounter Plan of Treatment Not on filedocumented as of this encounter Visit Diagnoses Not on filedocumented in this encounter Care Teams Game Moderator Relationship Specialty Start Date End Date Brisa Smith PA-C PCP - General 07/30/10 04/18/15 [address] [place] [address] documented as of this encounter
--- OUTSIDE RECORDS SUMMARY | 2022-03-20 10:04 | XMS_ITS | Encounter Summary ---
:1990 Author Organization [facility] Address [address] [address] Care Team Providers Name Role Phone Brisa Smith PA-C Primary Care Provider Reason for Visit Reason Comments Other Encounter Details Date Type Department Care Team Description 05/14/2004 Telephone [facility], Message Other [address] [place] [address] Social History Tobacco Use Types Packs/Day Years Used Date Smoking Tobacco: Never Assessed Sex Assigned at Date Recorded Not on file documented as of this encounter Progress [facility], Message - 05/14/2004 2:07 PM CST Phone Note filed by Live Life 360 at 08/13/10 1610 Author: Live Life [employer] Service: (none) Author Type: (none) Filed: 08/13/10 1610 Note Time: 05/14/04 1407 Status: Signed Associate Music Professor: [employer] [facility] MESSAGE TO CARE TEAM NAME OF CALLER:Mildred (mom) NAME OF CLINICIAN:Lillian Gaspar NP MESSAGE:Mildred is calling for test results for Hellen, please call to discuss. She also would like the results for Xander's (her son) test results as well. PHARMACY NAME: PHARMACY PHONE #: CALL BACK PHONE #:[phone] (home) BEST TIME TO CALL BACK:anytime Is [...] filedocumented in this encounter Care Teams Design Maker Relationship Specialty Start Date End Date Brisa Smith PA-C PCP - General 07/30/10 04/18/15 [address] [place] [address] documented as of this encounter
--- OUTSIDE RECORDS SUMMARY | 2022-03-20 10:04 | XMS_ITS | Encounter Summary ---
:1990 Author [facility] Address [address] [place] [address] Care Team Providers Name Role Phone Brisa Smith PA-C Primary Care Provider Encounter Details Date Type Department Care Team Description 10/22/2004 Office Visit Chloe Stacy MD [facility] [place] [address] [place] [address] [phone] (Wo rk) Social History Tobacco Use Types [...] 08/17/10 0649 Note Time: 10/22/042016 Status: Signed Custom Wood Stair Builder: Chloe Mcmanus MD (Physician) NAME: MINO POSADAS MR: [id number] ACCT: [id number] VISIT: [id number] DICTATING CLINICIAN: CHLOE MCMANUS MD JOB: [id number] CLINIC PROGRESS NOTE DATE OF VISIT: 10/22/2004 SUBJECTIVE: : 1990. Reason for visit: Wrist pain. [id number], 48 hours prior to this exam, had her right hand slammed in between her and another marine electronics technician, took herself out of the game briefly, did not tell anybody, was able to finish and reports immediate swelling. An welder gas tungsten arc, on the sidelines, examined it, re-examined it [...] for film review and re-examination October 26. SFP:[id number] C: 10/23/04 12:28 DOCUMENT: [id number] documented in this encounter Plan of Treatment [...] clude a tiny Salter-Herbert type 2 fracture. [id number] Dictating NELSON TORRES Radiologist Narrative 10/22/2004 1:47 [...] clude a tiny Salter-Herbert type 2 fracture. [id number] Dictating NELSON TORRES Radiologist Chloe Mcmanus MD RAD GD documented in this encounter Visit Diagnoses Not on filedocumented in this encounter Care Teams Monument Mason Relationship Specialty Start Date End Date Brisa Smith PA-C PCP - General 07/30/10 04/18/15 [address] [place] [address] documented as of this encounter
--- OUTSIDE RECORDS SUMMARY | 2022-03-20 10:04 | XMS_ITS | Encounter Summary ---
:1990 Author Organization [facility] Address [address] [place] [address] Care Team Providers Name Role Phone Brisa Smith PA-C Primary Care Provider Encounter Details Date Type Department Care Team Description 05/22/2005 Office Visit [facility] re Ellen Solis, [address] [address] [facility] [place] [address] [facility] [phone] [place], [place] [address] Social History Tobacco Use Types Packs/Day Years Used Date Smoking Tobacco: Never Assessed Sex Assigned at Date Recorded Not on file documented as of this encounter Last Filed Vital Signs Vital Sign Reading Time Taken Comments Blood Pressure 127/66 05/22/2005 4:39 PM METAL PRODUCTS VIEWER Pulse 73 05/22/2005 4:39 PM [employer]AL PRODU[employer] VIEWER Temperature 36.7 ??C (98.1 ??F) 05/22/2005 4:39 PM METAL PRODU[employer] VIEWER C: 36 .7 C Respiratory Rate 16 05/22/2005 4:39 PM METAL PRODUCTS VIEWER Oxygen Saturation 98% 05/22/2005 4:39 PM METAL PRODU[employer] VIEWER Inhaled Oxygen Concentration - - Weight - - Height - - Body Mass Index - - documented in this encounter Progress Notes Ellen Solis PA-C - 05/22/2005 12:01 AM CST Progress Notes signed by Ellen Solis PA-C at 05/28/05 1934 Author: Ellen Solis PA-C Service: (none) Author Type: Resource Filed: 08/17/10 1102 Note Time: 05/22/05 0001 Status: Signed Foreign Exchange Position Clerk: Ellen Solis PA-C (Resource) NAME: MINO POSADAS MR: [id number] ACCT: [id number] VISIT: [id number] DICTATING CLINICIAN: ELLEN SOLIS PA-C JOB: [id number] CLINIC PROGRESS NOTE DATE OF VISIT: 05/22/2005 SUBJECTIVE: Diiavat-axeu-woq female complaining of a cough for the [...] PLAN: Symptomatic care. Follow up as needed. [id number]:[id number] C: 05/23/05 12:45 DOCUMENT: [id number] L PRODUCTS VIEWER documented in this encounter Plan of Treatment Not on filedocumented as of this encounter Visit Diagnoses Not on filedocumented in this encounter Care Teams Cardiopulmonary Technologist Relationship Specialty Start Date End Date Brisa Smith PA-C PCP - General 07/30/10 04/18/15 [address] [place] [address] documented as of this encounter
--- OUTSIDE RECORDS SUMMARY | 2022-03-20 10:05 | XMS_ITS | Encounter Summary ---
:1990 Author Organization [facility] Address [address] [place] [address] Care Team Providers Name Role Phone Brisa Smith PA-C Primary Care Provider Encounter Details Date Type Department Care Team Description 01/23/2004 Office Visit [facility] Rita Carlisle MD [id number] [place] [address] [phone] (Wo rk) Social History Tobacco Use Types [...] 0138 Note Time: 01/23/04 0001 Status: Signed Publications Editor: Rita Ruiz MD (Physician) [facility] Acute Clinic Visit IMPRESSION: URI Reactive [...] filedocumented in this encounter Care Teams Pasting Machine Operator Relationship Specialty Start Date End Date Brisa Smith PA-C PCP - General 07/30/10 04/18/15 [address] [place] [place] [address] documented as of this encounter
--- OUTSIDE RECORDS SUMMARY | 2022-03-20 10:05 | XMS_ITS | Encounter Summary ---
:1990 Author Organization [facility] Address [address], [place] [address] Care Team Providers Name Role Phone Brisa Smith PA-C Primary Care Provider Reason for Visit Reason Comments Other Encounter Details Date Type Department Care Team Description 03/27/2004 Telephone [facility] Chelo Álvarez Other [address] [place], [place] [phone] Social History Tobacco Use Types Packs/Day Years Used Date Smoking Tobacco: Never Assessed Sex Assigned at Date Recorded Not on file documented as of this encounter Progress Notes Chelo Álvarez - 03/27/2004 4:36 PM CST Phone Note filed by Chelo Álvarez RN at 08/13/10 4914 Author: Chelo Álvarez RN Service: (none) Author Type: (none) Filed: 08/13/10 1525 Note Time: 03/27/04 1636 Status: Signed Pit Slagman: Chelo Álvarez RN (Registered Nurse) Pt.has rash [...] on filedocumented in this encounter Care Teams Land Inspector Relationship Specialty Start Date End Date Brisa Smith PA-C PCP - General 07/30/10 04/18/15 [address] [place] [address] documented as of this encounter
--- OUTSIDE RECORDS SUMMARY | 2022-03-20 10:05 | XMS_ITS | Encounter Summary ---
:1990 Author Organization [facility] Address [address] [facility] [place] [address] Care Team Providers Name Role Phone No Ref-Primary, Physician Primary Care Provider [phone] Reason for Visit Reason Comments Ultrasound echo-IVF Encounter Details Date Type Department Care Team Description 12/18/2021 Office Visit [facility] Juan Luis Chirinos resulting Maternal MD Nader from [facility] [address] fertilizat ion in second [facility] 400 trimester (Primary Dx) [address] [place], [place] [address] [address] [place], [place] [phone] [address] (Work) [phone] Social History Tobacco Use Types Packs/Day Years [...] for details of today's [facility] at the [facility]. Juan Luis Chirinos MD Maternal- Medicine documented in this encounter Plan of Treatment Not on filedocumented as of this encounter Visit Diagnoses Diagnosis resulting from in vitro fertil ization in second trimester - Primary documented in this encounter Care Teams Chicken Cutter Relationship Specialty Start Date End Date No Ref-Primary, Physician PCP - General 11/16/18 documented as of this encounter
--- OUTSIDE RECORDS SUMMARY | 2022-03-20 10:05 | XMS_ITS | Encounter Summary ---
:1990 Author Organization [facility] Address [address] [place] [address] Care Team Providers Name Role Phone Brisa Smith PA-C Primary Care Provider Encounter Details Date Type Department Care Team Description [facility] [place], COMPUTER TERMINAL OPERATOR [address] [place] [address] [phone] (Wo rk) Social History Tobacco Use Types Packs/Day Years Used Date Smoking Tobacco: Never Assessed Sex Assigned at Date Recorded Not on file documented as of this encounter Progress Lena Garrison - 01/04/2004 12:01 AM CDT Progress Notes signed by KIMBERLY Guerrier at 02/16/04 192 Author: KIMBERLY Guerrier Service: (none) Author Type: Nurse Practitioner Filed: 08/17/10 0118 Note Time: 01/04/04 0001 Status: Signed Nurse Educator: KIMBERLY Guerrier (Nurse Practitioner) NAME: MINO POSADAS MR: [id number] ACCT: [id number] VISIT: [id number] DICTATING CLINICIAN: LENA CHIU NP JOB: [id number] CLINIC PROGRESS NOTE DATE OF VISIT: 01/04/2004 SUBJECTIVE: CHIEF COMPLAINT: A 13-year-old female presents for follow up cough diagnosed with pneumonia at [facility] 12[facility]. Just finished a Z-Torito. Initially felt better, now states symptoms have worsened. Has felt feverish this morning. Disrupted sleep secondary to the cough. Quinton short of breath with some chest tightness [...] reviewed. Chest x-ray negative on 12/28/03 through [facility]. Mino is otherwise in good health. Active road maker. She did attend school last week despite [...] Cough with bronchospasm, recent diagnosis of pneumonia. ALK:[id number] C: 01/05/04 08:57 DOCUMENT: [id number] documented in this encounter Plan of Treatment Not on filedocumented as of this encounter Visit Diagnoses Not on filedocumented in this encounter Care Teams Rotary Dump Operator Relationship Specialty Start Date End Date Brisa Smith PA-C PCP - General 07/30/10 04/18/15 [address] [place] [place] [address] documented as of this encounter
--- OUTSIDE RECORDS SUMMARY | 2022-03-20 10:05 | XMS_ITS | Encounter Summary ---
:1990 [facility] Address [address], [place] [address] Care Team Providers Name Role Phone Brisa Smith PA-C Primary Care Provider Encounter Details Date Type Department Care Team Description 10/12/2003 PN Conversion Only [facility] Ralph, [address] Lillian Stern APRN, [place] [address] [address]aitlin Florian [phone] [place] [id number] (Wo rk) Social History Tobacco Use Types Packs/Day Years Used Date Smoking Tobacco: Never Assessed Sex Assigned at Date Recorded Not on file documented as of this encounter Progress Notes Lillian Rosas APRN, CNP - 10/12/2003 12:01 AM CDT H&P signed by Lillian Rosas APRN, CNP at 10/18/03 1223 Author: JOVANNA Antonio Service: (none) Author Type: Nurse Practitioner Filed: 08/16/10 6256 Note Time: 10/12/03 0001 Status: Signed Stationary Equipment Mechanic: JOVANNA Antonio (Nurse Practitioner) NAME: MINO POSADAS MR: [id number] ACCT: [id number] VISIT: [id number] DICTATING CLINICIAN: JOVANNA ANTONIO JOB: [id number] CLINIC PHYSICAL DATE OF VISIT: 10/12/2003 SUBJECTIVE: [...] sunscreen. Next routine exam in three years. EAC:[id number] C: 10/12/03 17:48 DOCUMENT: [id number] documented in this encounter Plan of Treatment Not on filedocumented as of this encounter Visit Diagnoses Not on filedocumented in this encounter Care Teams Brim And Crown Presser Relationship Specialty Start Date End Date Brisa Smith PA-C PCP - General 07/30/10 04/18/15 [address] [place] [address] documented as of this encounter
--- OUTSIDE RECORDS SUMMARY | 2022-03-20 10:05 | XMS_ITS | Encounter Summary ---
:1990 Author Organization [facility] Address [address] [address] Care Team Providers Name Role Phone Brisa Smith PA-C Primary Care Provider Reason for Visit Reason Comments Other Encounter Details Date Type Department Care Team Description 04/10/2004 Telephone [facility] Brittany Turner Other [facility] [employer] [place], [place] [id number] Social History Tobacco Use Types Packs/Day Years Used Date Smoking Tobacco: Never Assessed Sex Assigned at Date Recorded Not on file documented as of this encounter Progress Notes Center, [facility] - 04/10/2004 4:30 PM CST Phone Note filed by Dumbstruck at 08/13/10 1539 Author: Dumbstruck Service: (none) Author Type: (none) Filed: 08/13/10 1539 Note Time: 04/10/04 1630 Status: Signed Electric Furnace Operator: Dumbstruck Hellen's mom is calling with test results from a rash on her face. She sees Dr.Kathleen Metz Please call.#[phone] Created on 10Apr2004 4:30pm by GRISELDA BAKER On 10Apr2004 4:47pm BRITTANY TURNER wrote: 2nd message, 1st message addressed and sent to Dr. Hernandes Acknowledged by BRITTANY TURNER on 7:54am documented in this encounter Plan of Treatment Not on filedocumented as of this encounter Visit Diagnoses Not on filedocumented in this encounter Care Teams Company Truck Driver Relationship Specialty Start Date End Date Brisa Smith PA-C PCP - General 07/30/10 04/18/15 [address] [place] [address] documented as of this encounter
--- OUTSIDE RECORDS SUMMARY | 2022-03-20 10:05 | XMS_ITS | Clinical Summary ---
:1990 Author Organization [facility] Address [address] [place] [address] Care Team Providers Name Role Phone No Ref-Primary, Physician Primary Care Provider [phone] Allergies Active Allergy Reactions Severity Noted Date [...] Radiology. Juan Luis Chirinos y resulting MD Ndaer from in vitro fertilization i n second [...] per calendar 04/28/2021 year) MATERNAL SCREENING 10/25/2021 OBGCT (OB) 12/27/2021 REPEAT ANTIBODY SCREEN (OB) 01/24/2022 GROUP B STREP SCREENING 03/21/2022 HEPATITIS B IMMUNIZATION Completed 06/23/2002, 11/23/2001, 10/15/2001 MENINGITIS IMMUNIZATION Completed 09/07/2007, 09/07/2007 INFLUENZA VACCINE Completed 02/19/2022, 03/18/2019 IPV IMMUNIZATION Aged Out No longer eligi ble based on patient's age to complete this to pic Pneumococcal Vaccine: Aged Out No longer eligible based Pediatrics (0 to 5 Years) and on patient's age to At-Risk Patients (6 to 64 comple te this topic Years) Procedures Procedure Name Priority Date/Time Associated Diagnosis Comme nts [facility] READ SCREENING Routine 12/18/2021 10:02 resultin g Results for this ECHO AM CDT from in vitro procedure are in PENG fertilization in the results second trimester section. from Last 3 Months Results [facility] Read Screen Echo Single (12/18/2021 10:02 [...] Study Date: 0 12/18/2021 9:18am Pat. NO: [id number] Referring ??MD: SPENCER VILLAGOMEZ Site: [facility] Clip Riveter: Nancie Bailey RD MS : 1990 Age: 31 INDICATION In vitro fertilization METHOD Grayscale imaging, Doppler echocardiogra phy color flow velocity mapping and Doppler echocardiography pulsed wave and or wave with spectral display were used to assess cardiac structures for wilner goode [facility] echocardiogram. View: Sufficient Peng . Number [...] RVOT view ?normal 3-vessel view ? normal 6-xgboqp-gowsdso view ? normal High short axis view [...] be different from the original. Echo Pat. Name:Ida SIGALAana Date:11/27 9:18am Pat. NO: [id number] MD:DYLAN NESS Site:[place]elaonographer:Nancie BaileyKATHARINE :1990Age:31 INDICATION In vitro fertilization METHOD Grayscale imaging, Doppler echocardiogra phy color flow velocity mapping and Doppler echocardiography pulsed wave and or wave with spectral display were used to assess cardiac structures for wilner goode [facility] echocardiogram. View: Sufficient Peng . Number [...] normal RVOT view normal 3-vessel view normal 8-vbhryz-uzeyusi view normal High short axis view normal [...] Parker AoV annulus syst 4.0 mm 1.25 Keith RECOMMENDATION We discussed the findings on today's [...] of the aorta. 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
--- OUTSIDE RECORDS SUMMARY | 2022-03-20 10:05 | XMS_ITS | Encounter Summary ---
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
--- OUTSIDE RECORDS SUMMARY | 2022-03-20 10:05 | XMS_ITS | Encounter Summary ---
:1990 Author Organization [facility] Address [address] [place] [address] Care Team Providers Name Role Phone Brisa Smith PA-C Primary Care Provider Encounter Details Date Type Department Care Team Description 08/15/2003 PN Conversion Only [facility] [place], [address] [facility] [place] [address] [address] [facility] [phone] [place] [address] (Wo rk) Social History Tobacco Use Types Packs/Day Years Used Date Smoking Tobacco: Never Assessed Sex Assigned at Date Recorded Not on file documented as of this encounter Progress Notes Veronique Clemons MD - 08/15/2003 12:01 AM CDT Progress Notes signed by Veronique Clemons MD at 12/17/03 1025 Author: Veronique Clemons MD Service: (none) Author Type: Physician Filed: 08/16/10 1580 Note Time: 08/15/03 0001 Status: Signed Sheet Metal Duct Worker Supervisor: Veronique Clemons MD (Physician) NAME: MINO CLEMENTE MR: [id number] ACCT: [id number] VISIT: [id number] DICTATING CLINICIAN: VERONIQUE CLEMONS MD JOB: [id number] CLINIC PROGRESS NOTE DATE OF VISIT: 08/15/2003 [...] X-ray of her lower leg was negative. [id number] C: 08/17/03 09:01 DOCUMENT: [id number] Phone Note, Clinician - 08/14/2003 12:01 AM CDT Phone Note filed by Clinician Phone Note at 08/14/10 1356 Author: Clinician Phone Note Service: (none) Author Type: Resource Filed: 08/14/10 1354 Note Time: 08/14/03 0001 Status: Signed Sheet Metal Duct Worker Supervisor: Clinician Phone Note (Resource) - REFERRED PATIENT TO EMERGENCY ROOM * HOME PHONE:[phone] * SUBJECTIVE: PATIENT COMPLAINS OF... Limb and/or [...] MISC COMMENTS... Mom will take pt. to [facility] in [place]. CALL BY GHISLAINE THOMPSON RN 08/14/2003 08:14PM [phone] ADDENDUM: Roxanne Flores MD - 08/10/2003 12:01 AM CDT Progress Notes signed by Roxanne Flores MD at 02/07/04 1052 Author: Roxanne Flores MD Service: (none) Author Type: Physician Filed: 08/16/10 2248 Note Time: 08/10/032229 Status: Signed Sheet Metal Duct Worker Supervisor: Roxanne Flores MD (Physician) NAME: MINO CLEMENTE MR: [id number] ACCT: [id number] VISIT: [id number] DICTATING CLINICIAN: ROXANNE FLORES MD JOB: [id number] CLINIC PROGRESS NOTE DATE OF VISIT: 08/10/2003 [...] ordered and read by me looks normal. [id number] C: 08/10/03 20:16 DOCUMENT: [id number] Rahat Mix PA-C - 06/30/2003 12:01 AM CST Progress Notes signed by Rahat Mix PA-C at 07/01/03 0901 Author: Rahat Mix PA-C Service: (none) Author Type: Physician Reservoir Engineering Consultant Filed: 08/16/10 2205 Note Time: 06/30/03 0001 Status: Signed Sheet Metal Duct Worker Supervisor: Rahat Mix PA-C (Physician Reservoir Engineering Consultant) NAME: MINO CLEMENTE MR: [id number] ACCT: [id number] VISIT: [id number] DICTATING CLINICIAN: SEAMUS MENDIETA JOB: [id number] CLINIC PROGRESS NOTE DATE OF VISIT: 06/30/2003 [...] little low at 4.1, hemoglobin normal, 14.9. [id number] C: 07/01/03 00:36 DOCUMENT: [id number] TILE SETTER Phone Note, Clinician - 08/18/2002 12:01 AM CDT Phone Note filed by Clinician Phone Note at 08/14/101107 Author: Clinician Phone Note Service: (none) Author Type: Resource Filed: 08/14/10 1108 Note Time: 08/18/02 0001 Status: Signed Sheet Metal Duct Worker Supervisor: Clinician Phone Note (Resource) TO: LILLIAN HARKINS FROM: JOANN GONZALEZ RN [phone] * PROVIDER MESSAGE: TOMEKA * 08/18/02 01:07PM * *WITHIN 2 HOURS * MESSAGE: Pt's mother (Kalyani Clemente) * HOME PHONE:[phone] * calling: Pt's sister Zaria was seen * CONTACT PHONE:[phone] * by Lillian Harkins, MONCHO, SENIOR CONTROLLER * Eileen Clemente - pt's * yesterday [...] CALL BY JOANN GONZALEZ RN 08/18/2002 01:02PM [phone] ADDENDUM: <> 08/18/2002 01:35PM by STEVEN VELEZ: Lillian Gaspar CNP advised to keep appointment. Lillian Harkins APRN, CNP - 08/18/2002 12:01 AM CDT Progress Notes signed by Lillian Harkins APRN, CNP at 08/24/02 0803 Author: JOVANNA Gagnon Service: (none) Author Type: Nurse Practitioner Filed: 08/16/10 1438 Note Time: 08/18/02 0001 Status: Signed Sheet Metal Duct Worker Supervisor: JOVANNA Gagnon (Nurse Practitioner) NAME: MINO CLEMENTE MR: [id number] ACCT: [id number] VISIT: [id number] DICTATING CLINICIAN: JOVANNA GAGNON JOB: [id number] CLINIC PROGRESS NOTE DATE OF VISIT: 08/18/2002 [...] clear for two consecutive mornings. TT: CT: [id number]:[id number] C: 08/20/02 10:47 DOCUMENT: [id number] Lillian Harkins APRN, CNP - 08/17/2002 12:01 AM CDT Progress Notes signed by Lillian Harkins APRN, CNP at 08/24/02 0802 Author: JOVANNA Gagnon Service: (none) Author Type: Nurse Practitioner Filed: 08/16/10 1436 Note Time: 08/17/02 0001 Status: Signed Sheet Metal Duct Worker Supervisor: JOVANNA Gagnon (Nurse Practitioner) NAME: MINO CLEMENTE MR: [id number] ACCT: [id number] VISIT: [id number] DICTATING CLINICIAN: JOVANNA GAGNON JOB: [id number] CLINIC PROGRESS NOTE DATE OF VISIT: 08/17/2002 [...] observation and follow up p.r.n. TT: CT: [id number] C: 08/18/02 10:36 DOCUMENT: [id number] Phone Note, Clinician - 06/30/2002 12:01 AM CST Phone Note filed by Clinician Phone Note at 08/14/10 1047 Author: Clinician Phone Note Service: (none) Author Type: Resource Filed: 08/14/10 1047 Note Time: 06/30/02 0001 Status: Signed Sheet Metal Duct Worker Supervisor: Clinician Phone Note (Resource) TO: RANJITH VALENZUELA FROM: FAZAL MORA RN [phone] * PROVIDER MESSAGE: ROUTINE * 06/30/02 12:23PM * *WITHIN 4 HOURS * MESSAGE: Patient was seen by * HOME PHONE:[phone] * [place]en this morning for right * CONTACT PHONE:[phone] * ankle sprain. Per mother, was * Mom (Jyoti) if questions * advised to limit physical activity for 7-10 days, with minimal weight bearing. In order for her to be excused from phy-ed, the school is requiring note from . Please write note and fax to [employer] at [phone]. Attn: Jeanette. Aware that Dr. Valenzuela was [...] CALL BY FAZAL MORA RN 06/30/2002 12:20PM [phone] ADDENDUM: <> 06/30/2002 04:58PM by MAJO MENENDEZ LPN: Note written by Dr Izquierdo regarding physical activity and faxed to school per moms request. Ranjith Gan - 06/30/2002 12:01 AM CST Progress Notes signed by Ranjith Valenzuela MD at 07/23/02 0904 Author: Ranjith Valenzuela MD Service: (none) Author Type: Physician Filed: 08/16/10 1348 Note Time: 06/30/02 0001 Status: Signed Sheet Metal Duct Worker Supervisor: Ranjith Valenzuela MD (Physician) NAME: MINO LCEMENTE MR: [id number] ACCT: [id number] VISIT: [id number] DICTATING CLINICIAN: RANJITH VALENZUELA MD JOB: [id number] CLINIC PROGRESS NOTE DATE OF VISIT: 06/30/2002 [...] Meanwhile, begin some ankle exercises. TT: CT: DWG:[id number] C: 06/30/02 17:41 DOCUMENT: [id number] Lillian Harkins APRN, CNP - 10/15/2001 12:01 AM CDT Progress Notes signed by Lillian Harkins APRN, CNP at 10/28/01 1044 Author: JOVANNA Gagnon Service: (none) Author Type: Nurse Practitioner Filed: 08/16/10 0750 Note Time: 10/15/01 0001 Status: Signed Sheet Metal Duct Worker Supervisor: JOVANNA Gagnon (Nurse Practitioner) IMPRESSION: Healthy 11-year-old. SUBJECTIVE: Mino is in today for a 11-year check. She just finished sixth grade and did very well in school. She participates in soccer, track and volleyball. She also loves to run. Is not running on a regular basis at this time. She plays the [employer] in [place]. She has no current concerns. She eats [...] Her next check at 14. TT: CT: [id number]:[id number] C: DOCUMENT: [id number] Mary Stewart MD - 09/11/2001 12:01 AM CDT Progress Notes signed by Mary Stewart MD at 09/14/01 0817 Author: Mary Stewart MD Service: (none) Author Type: Physician Filed: 08/16/10 0704 Note Time: 09/11/01 0001 Status: Signed Sheet Metal Duct Worker Supervisor: Mary Stewart MD (Physician) IMPRESSION: Mild cellulitis near the left third toe. Probable athlete's foot. Wart on the right hand. SUBJECTIVE: Mino is a 11-year-old who comes in having had some dry cracking between her toes for a while. They have been doing some hped-zxv-jtffmlx treatment for athlete's foot over the last [...] infection, and they are going to try cgpl-bqa-arzazmt treatment first such as Duofilm for the wart on her right palm. TT: CT: KJM:[id number] C: DOCUMENT: [id number] Jessica Kenney MD - 07/25/2001 12:01 AM CST Progress Notes signed by Jessica Kenney MD at 07/27/01 1514 Author: Jessica Kenney MD Service: (none) Author Type: Physician Filed: 08/16/10 0555 Note Time: 07/25/01 0001 Status: Signed Sheet Metal Duct Worker Supervisor: Jessica Kenney MD (Physician) IMPRESSION: OTITIS MEDIA, [...] returns. ASSESSMENT: N/A PLAN: N/A TT: CT: [id number]:[id number] C: DOCUMENT: [id number] TILE SETTER Mary Stewart MD - 05/22/2001 12:01 AM CST Progress Notes signed by Mary Stewart MD at 05/25/01 0825 Author: Mary Stewart MD Service: (none) Author Type: Physician Filed: 08/16/10 0424 Note Time: 05/22/01 0001 Status: Signed Sheet Metal Duct Worker Supervisor: Mary Stewart MD (Physician) IMPRESSION: Possible pneumonia. [...] or if other concerns arise. TT: CT: [facility]:[id number] C: DOCUMENT: [id number] TILE SETTER Conversion, [facility] - 10/17/1999 12:01 AM CDT Progress Notes signed by at 12/02/00 8776 Author: [facility] Conversion Service: (none) Author Type: (none) Filed: 08/15/10 1738 Note Time: 10/17/99 0001 Status: Signed Sheet Metal Duct Worker Supervisor: Imr Conversion IMPRESSION: Resolving sprain/contusion to the [...] activities as tolerated. CC: SEGUNDO TAPIA MD ABK:[id number] C: DOCUMENT: [id number] SCHEDULED RESOURCE: DUSTIN MEZA / Conversion, [facility] - 10/10/1999 12:01 AM CDT Progress Notes signed by at 12/02/00 0216 Author: Rudy Strong Service: (none) Author Type: (none) Filed: 08/15/10 1731 Note Time: 10/10/992229 Status: Signed Sheet Metal Duct Worker Supervisor: Rudy Strong IMPRESSION: Sprain to the left [...] missing an occult fracture of the elbow. ABK:[id number] C: DOCUMENT: [id number] SCHEDULED RESOURCE: DUSTIN MEZA MD Conversion, [facility] - 10/05/1999 12:01 AM CDT Phone Note signed by at 10/05/99 5100 Author: Rudy Conversion Service: (none) Author Type: (none) Filed: 08/15/10 1726 Note Time: 10/05/99 0001 Status: Signed Sheet Metal Duct Worker Supervisor: Rudy Strong IMPRESSION: Elbow injury TO: MARY STEWART FROM: ORESTES KENDRICK RN [phone] * PROVIDER MESSAGE: ER * 10/05/1999 10:50PM * REFERRAL * MESSAGE: Sent to [facility] ER * HOME PHONE: [phone] * via car * CONTACT PHONE: [phone] * - REFERRED PATIENT TO EMERGENCY ROOM * Parents * SUBJECTIVE: CHIEF CONCERN... Dad states child fell tonight at [facility], injured elbow. EMT at the [facility] said didn't look right and recommended have seen tonight. Caller got this information from who is driving child back to [place]. Doesn't know if icing, elevating. Dad thinks should arrive [facility] in about 1 hr. ALLERGIES/SENSITIVITIES... Sulfa - rash, PCN - hives 10/05/99 CURRENT MEDICATIONS... None 10/05/99 PERTINENT PAST HISTORY... Healthy 10/05/99 WEIGHT: Not Available OMITTED ASKING ABOUT ; OMITTED ASKING ABOUT NURSING; ASSESSMENT: Elbow injury PLAN: DISPOSITION: EMERGENCY Call taken by ORESTES KENDRICK RN [phone] 10/05/1999 10:44 PM ADDENDUM: Conversion, [facility] - 04/08/1999 12:01 AM CST Progress Notes signed by at 12/02/00 6391 Author: Rudy Conversion Service: (none) Author Type: (none) Filed: 08/15/10 1434 Note Time: 04/08/99 0001 Status: Signed Sheet Metal Duct Worker Supervisor: Imr Conversion IMPRESSION: Viral syndrome, possible enterovirus versus another viral infection causes rash, stomach complaints and sore throat. SUBJECTIVE: Patient seen in [facility] on 04/08/99. The patient is [...] her to follow up right away. CC: DSR:[id number] C: DOCUMENT: [id number] SCHEDULED RESOURCE: JACKSON RIVERA MD Conversion, [facility] - 12/27/1998 12:01 AM CDT Phone Note signed by at 12/27/98 1003 Author: Rudy Conversion Service: (none) Author Type: (none) Filed: 08/15/10 1332 Note Time: 12/27/98 0001 Status: Signed Sheet Metal Duct Worker Supervisor: Rudy Strong IMPRESSION: Immunization inquiry SUBJECTIVE: PATIENT COMPLAINS OF... Mother, * HOME PHONE: [phone] * Eileen, is caller, states * CONTACT PHONE: [phone] * needs immunization hx for * Mother, [...] to transfer information to update records @ [facility]. Call taken by JADYN BERTRAND RN [phone] 12/27/1998 09:55 AM ADDENDUM: Conversion, [facility] - 12/11/1998 12:01 AM CDT Phone Note signed by at 12/11/98 1073 Author: Rudy Conversion Service: (none) Author Type: (none) Filed: 08/15/10 2133 Note Time: 12/11/98 0001 Status: Signed Sheet Metal Duct Worker Supervisor: Rudy Strong IMPRESSION: leg pain. SUBJECTIVE: PATIENT COMPLAINS OF... Mom * HOME PHONE: [phone] * reports mabel.c/o pain in her one [...] CALLBACK Call taken by RYAN CLEMENTE RN [phone] 12/11/1998 10:21 PM ADDENDUM: Conversion, [facility] - 1998 12:01 AM CDT Progress Notes signed by at 12/02/002050 Author: Rudy Conversion Service: (none) Author Type: (none) Filed: 08/15/10 1058 Note Time: 09/06/98 0001 Status: Signed Sheet Metal Duct Worker Supervisor: Rudy Strong IMPRESSION: Postoperative tonsillectomy and adenoidectomy [...] duration of time. CC: MARY STEWART MD APURVA:[id number] C: DOCUMENT: [id number] SCHEDULED RESOURCE: BENITA WORTHY MD Conversion, [facility] - 09/03/1998 12:01 AM CDT Phone Note signed by at 09/03/98 0926 Author: [facility] Conversion Service: (none) Author Type: (none) Filed: 08/15/10 1054 Note Time: 09/03/98 0001 Status: Signed Sheet Metal Duct Worker Supervisor: Rudy Conversion IMPRESSION: Post tonsillectomy concerns SUBJECTIVE: PATIENT COMPLAINS OF... Mom * HOME PHONE: [phone] * calling with postop tonsillectomy day 6, [...] mom. Transferred to switchboard to have ENT system controller call mom. ALLERGIES/SENSITIVITIES... Sulfa, PCN -- hives 09/03/98 CURRENT MEDICATIONS... Cephalexin 3 tsp bid day 6, [employer] and codeine 15 ml 09/03/98 PERTINENT PAST HISTORY... Healthy 09/03/98 ASSESSMENT: Post tonsillectomy concerns DISPOSITION: NO DISPOSITION GIVEN WEIGHT: 63 PLAN: Call taken by ANGELAI GARVEY, RN [phone] 09/03/1998 09:01 AM ADDENDUM: Mary Stewart MD - 08/25/1998 12:01 AM CDT Progress Notes signed by Mary Stewart MD at 09/06/98 1159 Author: Mary Stewart MD Service: (none) Author Type: Physician Filed: 08/15/10 1046 Note Time: 08/25/98 0001 Status: Signed Sheet Metal Duct Worker Supervisor: Mary Stewart MD (Physician) IMPRESSION: 8 1/2-year-old [...] she is okay for surgery for T&A. [facility]:[id number] C: DOCUMENT: [id number] Conversion, [facility] - 08/14/1998 12:01 AM CDT Phone Note signed by at 08/14/98 3478 Author: [facility] Conversion Service: (none) Author Type: (none) Filed: 08/15/10 1033 Note Time: 08/14/98 0001 Status: Signed Sheet Metal Duct Worker Supervisor: Imr Conversion IMPRESSION: Questions Re: Tonsilectomy Scheduled for 08/28/98. TO: MARY STEWART FROM: JANE AGUILAR LPN [phone] * PROVIDER MESSAGE: ROUTINE * 08/14/1998 01:30PM * *WITHIN 4 HOURS * MESSAGE: Mom is requesting a call * HOME PHONE: [phone] * back from MD today. She has * CONTACT PHONE: [phone] * questions about Tonsilectomy * Mrs. Clemente (mom) at * scheduled for 08/28/98. (States * home Today. * she can't be contacted tomorrow.) SUBJECTIVE: ALLERGIES/SENSITIVITIES... Sulfa, PCN -- hives 08/14/98 CURRENT MEDICATIONS... Cephalexin 3 tsp bid 08/14/98 PERTINENT PAST HISTORY... Healthy 08/14/98 WEIGHT: Not Available ASSESSMENT: Questions Re: Tonsilectomy Scheduled for 08/28/98. PLAN: DISPOSITION: NO DISPOSITION GIVEN Call taken by JANE AGUILAR LPN [phone] 08/14/1998 01:23 PM ADDENDUM: <> 08/15/1998 02:57PM by ORESTES MICHELE LPN [phone]: patient's mom Eileen Clemente calling back. Missed 's call 08/14. Contact # today [phone] until 5pm. Conversion, [facility] - 08/10/1998 12:01 AM CDT Phone Note signed by at 08/10/98 9785 Author: [facility] Conversion Service: (none) Author Type: (none) Filed: 08/15/10 1030 Note Time: 08/10/98 0001 Status: Signed Sheet Metal Duct Worker Supervisor: Rudy Conversion IMPRESSION: Strep pharyngitis (child)-nurse guidelines TO: MARY STEWART FROM: JESSICA ZARATE RN [phone] * PROVIDER MESSAGE: RETURN * 08/10/1998 04:56PM * CALL REQUESTED * MESSAGE: Call and advise. * HOME PHONE: [phone] * SUBJECTIVE: * CONTACT PHONE: [phone] * CHIEF CONCERN... Diagnosed * Deanne_mom * strep pharyngitis, no * PHARMACY: [phone] * significant improvement after * ELECTRO OPTICAL ENGINEER-[employer] * 48 hours of medication, denies emergent [...] concerns Call taken by JESSICA ZARATE, MONCHO [phone] 08/10/1998 04:41 PM ADDENDUM: <> 08/11/1998 11:39AM [...] 1024 Note Time: 08/06/98 0001 Status: Signed Sheet Metal Duct Worker Supervisor: Darryn Olson MD (Physician) IMPRESSION: Strep tonsillitis. [...] For severe problems, call 911. [id number] Conversion, [facility] - 07/17/1998 12:01 AM CST Phone Note signed by at 07/17/98 0941 Author: [facility] Conversion Service: (none) Author Type: (none) Filed: 08/15/10 1002 Note Time: 07/17/98 0001 Status: Signed Sheet Metal Duct Worker Supervisor: [facility] Conversion IMPRESSION: fyi TO: MARY STEWART FROM: DALY SCHULER RN [phone] * PROVIDER MESSAGE: FYI *NO * 07/17/1998 09:41AM * INPUT NECESSARY * MESSAGE: Gave normal lab result * HOME PHONE: [phone] * SUBJECTIVE: * CONTACT PHONE: [phone] * CHIEF CONCERN... Mom calling * eileen [...] FOLLOWING... Call taken by DALY SCHULER RN [phone] 07/17/1998 09:39 AM ADDENDUM: Lillian Harkins, RANCH MANAGER, SENIOR CONTROLLER - 06/21/1998 12:01 AM CST Progress Notes signed by Lillian Harkins APRN, CNP at 07/12/98 1124 Author: JOVANNA Gagnon Service: (none) Author Type: Nurse Practitioner Filed: 08/15/10 0932 Note Time: 06/21/98 0001 Status: Signed Sheet Metal Duct Worker Supervisor: JOVANNA Gagnon (Nurse Practitioner) IMPRESSION: Pharyngitis. SUBJECTIVE: [...] regarding her continued recurrence of pharyngitis. lrs TILE SETTER Conversion, Imr - 06/20/1998 12:01 AM CST Phone Note signed by at 06/20/98 9037 Author: Rudy Conversion Service: (none) Author Type: (none) Filed: 08/15/10 0931 Note Time: 06/20/98 0001 Status: Signed Sheet Metal Duct Worker Supervisor: Rudy Strong IMPRESSION: Strep pharyngitis -(child)- nurse guidelines. - TREATING PROVIDER: LILLIAN TORIN * HOME PHONE: [phone] * - Appointment made with LILLIAN TORIN [...] concerns Call taken by FELIPE BLAIR RN [phone] 06/20/1998 10:17 PM ADDENDUM: Conversion, [facility] - 06/09/1998 12:01 AM CST Phone Note signed by Lucretia Barbosa MD at 06/16/98 0903 Author: Rudy Conversion Service: (none) Author Type: (none) Filed: 08/15/10 0919 Note Time: 06/09/98 0001 Status: Signed Sheet Metal Duct Worker Supervisor: Imr Conversion IMPRESSION: Strep pharyngitis -(child)- nurse guidelines. - PHARMACY: [phone] Zenaida SUBJECTIVE: * HOME PHONE:[phone] * PATIENT COMPLAINS OF... Sore throat, positive culture for strep pharyngitis. mother calling, states she had received a call from Dr. Cooper's office that her throat culture was positive for strep. She was told to call [phone] for treatment. Positive strep verified per [facility]. ALLERGIES/SENSITIVITIES... Sulfa 06/09/98 CURRENT MEDICATIONS... None 06/09/98 PERTINENT PAST HISTORY... Healthy 06/09/98 ASSESSMENT: Strep pharyngitis -(child)- nurse guidelines. DISPOSITION: HOME CARE WEIGHT: 63 PLAN: STANDING ORDERS IMPLEMENTED... Pen VK:500 mgm bid x 10 days (o) if > or = 50 lbs. RECOMMENDED THE FOLLOWING... Referenced guideline Strep pharyngitis -(child)- nurse guidelines.. Patient to be treated per [facility] standing order. -Give acetaminophen or ibuprofen as [...] CALL BY ASHLEY TAVARES RN 06/09/1998 11:14AM [phone] ADDENDUM: <> 06/10/1998 08:32PM by FELIPE POTTER RN [phone]: Mom calling back, aprox. 1 hr. ago [...] do? Ref. Hives Guideline, called Dr. Barbosa, system controller for Dr. Stewart, her usual provider. Dr. Barbosa ordered Erythromcyin 200mg. /5ml., 1 1/4tsp. BID x10 days. Pt. can start taking the medication tonight. If rash persists or changes she is to call back. Called mom back, gave her the information. Script called into [facility][phone] at 8:50pm. If further questions mom will call back. Conversion, [facility] - 06/07/1998 12:01 AM CST Phone Note signed by at 06/07/981999 Author: [facility] Conversion Service: (none) Author Type: (none) Filed: 08/15/10 0917 Note Time: 06/07/982229 Status: Signed Sheet Metal Duct Worker Supervisor: Rudy Conversion IMPRESSION: Sore Throat-(Child)-Nurse Guidelines TO: MARY STEWART FROM: LITZY DAVID R.N. [phone] * PROVIDER MESSAGE: ENRIQUE *NO * 06/07/1998 08:00PM * INPUT NECESSARY * MESSAGE: Strep screen in am at * HOME PHONE: [phone] * 920am. * CONTACT PHONE: [phone] * SUBJECTIVE: * mom * CHIEF CONCERN... [...] R.N. [phone] 06/07/1998 07:53 PM ADDENDUM: Conversion, [facility] - 05/29/1998 12:01 AM CST Progress Notes signed by at 12/02/002038 Author: Rudy Conversion Service: (none) Author Type: (none) Filed: 08/15/10 0905 Note Time: 05/29/98 0001 Status: Signed Sheet Metal Duct Worker Supervisor: Rudy Conversion IMPRESSION: Recurrent tonsillitis with moderate [...] [id number] SCHEDULED RESOURCE: BENITA WORTHY MD Conversion, [facility] - 05/03/1998 12:01 AM CST Phone Note signed by at 05/03/98 0952 Author: Rudy Conversion Service: (none) Author Type: (none) Filed: 08/15/10 0837 Note Time: 05/03/982229 Status: Signed Sheet Metal Duct Worker Supervisor: Rudy Strong IMPRESSION: request call-reading disability TO: MARY STEWART FROM: ORESTES MICHELE LPN [phone] * PROVIDER MESSAGE: ROUTINE * 05/03/1998 09:52AM * *WITHIN 4 HOURS * MESSAGE: request call * HOME PHONE: [phone] * SUBJECTIVE: * CONTACT PHONE: [phone] * CHIEF CONCERN... Patient's mom * Lay-mom [...] GIVEN Call taken by ORESTES MICHELE LPN [phone] 05/03/1998 09:49 AM ADDENDUM: <> 05/03/1998 01:34PM by GRISELDA GIBSON LPN: TALKED WITH MOM THIS AM. PER DR STEWART APPOINTMENT SHOULD BE MADE WITH NIM[facility] AT [facility]. Conversion, [facility] - 04/26/1998 12:01 AM CST Phone Note signed by at 04/26/98 0909 Author: Rudy Conversion Service: (none) Author Type: (none) Filed: 08/15/10 0830 Note Time: 04/26/98 0001 Status: Signed Sheet Metal Duct Worker Supervisor: Rudy Conversion IMPRESSION: Sore Throat-(Child)-Nurse Guidelines TO: MARY STEWART FROM: ISABEL KEVIN, RN [phone] * PROVIDER MESSAGE: ROUTINE * 04/26/1998 09:09AM * *WITHIN 4 HOURS * MESSAGE: Call mother to determine * HOME PHONE: [phone] * treatment plan. (Could a doctor * CONTACT PHONE: [phone] * take care of this this morning? * Eileen, mother * Soria not in until afternoon.) * PHARMACY: [phone] * SUBJECTIVE: * [facility] [place] * CHIEF [...] concerns Call taken by ISABEL KEVIN RN [phone] 04/26/1998 08:52 AM ADDENDUM: <> 04/26/1998 10:46AM by GRISELDA GIBSON LPN: APPOINTMENT MADE. Mary Stewart MD - 04/26/1998 12:01 AM CST Progress Notes signed by Mary Stewart MD at 05/05/98 1121 Author: Mary Stewart MD Service: (none) Author Type: Physician Filed: 08/15/10829 Note Time: 04/26/98 0001 Status: Signed Sheet Metal Duct Worker Supervisor: Mary Stewart MD (Physician) IMPRESSION: Pharyngitis. SUBJECTIVE: [...] it is probably more activity related. nbb TILE SETTER Conversion, Imr - 04/06/1998 12:01 AM CST Phone Note signed by Mary Stewart MD at 04/10/98 0953 Author: Imr Conversion Service: (none) Author Type: (none) Filed: 08/15/10 0810 Note Time: 04/06/98 0001 Status: Signed Sheet Metal Duct Worker Supervisor: Imr Conversion IMPRESSION: Sore Throat-(Child)-Nurse Guidelines - TREATING PROVIDER: MARY STEWART - PHARMACY: [phone] [facility] * HOME PHONE: [phone] * SUBJECTIVE: PATIENT COMPLAINS OF... Sore throat, [...] concerns Call taken by MICHELINE LOCKETT RN [phone] 04/06/1998 07:36 PM ADDENDUM: Conversion, [facility] - 04/06/1998 12:01 AM CST Phone Note signed by at 04/06/98 7293 Author: Rudy Conversion Service: (none) Author Type: (none) Filed: 08/15/10 0810 Note Time: 04/06/98 0001 Status: Signed Sheet Metal Duct Worker Supervisor: Rudy Strong IMPRESSION: Positive Strep SUBJECTIVE: ALLERGIES/SENSITIVITIES... * HOME PHONE: [phone] * Sulfa (hives) 04/05/98 * CONTACT PHONE: [phone] * CURRENT MEDICATIONS... Tylenol prn 04/05/98 PERTINENT PAST HISTORY... Healthy 04/05/98 ASSESSMENT: Positive Strep DISPOSITION: NO DISPOSITION GIVEN PLAN: [facility] COMMENTS... Dudley LCT calling to say Pt. has Positive strep. Unable to reach. Will need to call RX. Need Pharmacy #. Message was left on home machine. Call taken by COLBY MENDOZA LPN [phone] 04/06/1998 02:56 PM ADDENDUM: <> 04/06/1998 08:00PM by MICHELINE LOCKETT, RN [phone]: Mom calling back, child treated per sore throat guideline Conversion, [facility] - 04/05/1998 12:01 AM CST Phone Note signed by at 04/05/98 0917 Author: Rudy Conversion Service: (none) Author Type: (none) Filed: 08/15/10 0809 Note Time: 04/05/98 0001 Status: Signed Sheet Metal Duct Worker Supervisor: Rudy Conversion IMPRESSION: Sore Throat-(Child)-Nurse Guidelines - TREATING PROVIDER: FAMILY PRACTICE NURSE * HOME PHONE: [phone] * - Appointment made with FAMILY * CONTACT PHONE: [phone] * PRACTICE NURSE Apr 05 1998 10:10AM * Mrs Clemente (mom) * - PHARMACY: [phone] [facility] [address] SUBJECTIVE: PATIENT COMPLAINS OF... Sore [...] concerns Call taken by WOLF BUENO RN [phone] 04/05/1998 09:08 AM ADDENDUM: Conversion, [facility] - 03/27/1998 12:01 AM CST Phone Note signed by at 03/27/98 1874 Author: [facility] Conversion Service: (none) Author Type: (none) Filed: 08/15/10 0759 Note Time: 03/27/98 0001 Status: Signed Sheet Metal Duct Worker Supervisor: Rudy Strong IMPRESSION: Lab Test Question TO: MARY STEWART FROM: FELIPE GALLO RN [phone] * PROVIDER MESSAGE: ROUTINE * 03/27/1998 02:16PM * *WITHIN 4 HOURS * MESSAGE: Mom wondering if she * HOME PHONE: [phone] * should postpone lab testing? Pt. * CONTACT PHONE: [phone] * has cough and cold sx., no [...] GIVEN Call taken by FELIPE GALLO RN [phone] 03/27/1998 02:09 PM ADDENDUM: Mary Stewart MD - 03/01/1998 12:01 AM CST Progress Notes signed by Mary Stewart MD at 03/10/9812 Author: Mary Stewart MD Service: (none) Author Type: Physician Filed: 08/15/10 0734 Note Time: 03/01/982229 Status: Signed Sheet Metal Duct Worker Supervisor: Mary Stewart MD (Physician) IMPRESSION: CHART NOTE [...] to anything abnormal with the blood. The apparatus repair mechanic just recommended in a month repeating her blood count to see that the white count came up. nbb TILE SETTER Mary Stewart MD - 02/27/1998 12:01 AM CST Progress Notes signed by Mary Stewart MD at 03/06/9847 Author: Mary Stewart MD Service: (none) Author Type: Physician Filed: 08/15/10 0731 Note Time: 02/27/982229 Status: Signed Sheet Metal Duct Worker Supervisor: Mary Stewart MD (Physician) IMPRESSION: Healthy 8-1/2-year-old [...] should be in about three years. nbb TILE SETTER Conversion, [facility] - 11/15/1997 12:01 AM CDT Phone Note signed by at 11/15/97 0814 Author: [facility] Conversion Service: (none) Author Type: (none) Filed: 08/15/10 0550 Note Time: 11/15/97 0001 Status: Signed Sheet Metal Duct Worker Supervisor: [facility] Conversion IMPRESSION: Fever (4-17 years) nurse guideline SUBJECTIVE: PATIENT COMPLAINS OF... Fever, * HOME PHONE: [phone] * -Disrupted or restless sleep Awakened this [...] symptoms that are bothersome or not improving [facility] COMMENTS... reviewed various guidelines with Dad he will reevaluate when she awakens and call again as needed Call taken by DOROTA GRIFFITH 11/15/1997 08:06 AM ADDENDUM: Mary Stewart MD - 08/31/1997 12:01 AM CDT Progress Notes signed by Mary Stewart MD at 09/13/97 1156 Author: Mary Stewart MD Service: (none) Author Type: Physician Filed: 08/15/10 0442 Note Time: 08/31/97 0001 Status: Signed Sheet Metal Duct Worker Supervisor: Mary Stewart MD (Physician) IMPRESSION: Pharyngitis. SUBJECTIVE: Mino is an hwbvi-iipc-xjg who comes in having started with a sore throat and stomachache yesterday. She has had no temp, no cold symptoms, and no headache. ALLERGIES: SULFA. OBJECTIVE: Wt: 59 lb. In general, she is an alert zxyky-hjma-tbr in no acute distress. TMs were clear. [...] other concerns or questions arise. beh Conversion, [facility] - 08/30/1997 12:01 AM CDT Phone Note signed by at 08/30/972041 Author: [facility] Conversion Service: (none) Author Type: (none) Filed: 08/15/10 0441 Note Time: 08/30/97 0001 Status: Signed Sheet Metal Duct Worker Supervisor: Rudy Conversion IMPRESSION: Sore Throat-(Child)-Nurse Guidelines - TREATING PROVIDER: MARY STEWART - Appointment made with MARY * HOME PHONE: [phone] * PROSPER Aug 31 1997 10:40AM SUBJECTIVE: [...] or concerns Call taken by JOEL GARVEY [phone] 08/30/1997 08:35 PM ADDENDUM: Jolie Cazares MD - 06/26/1997 12:01 AM CST Progress Notes signed by at 02/27/022017 Author: Jolie Cazares MD Service: (none) Author Type: (none) Filed: 08/15/10 0340 Note Time: 06/26/97 0001 Status: Signed Sheet Metal Duct Worker Supervisor: Rudy Conversion IMPRESSION: No dictation required. Exudative pharyngitis, persistent despite amoxicillin. Bicillin CR 600,000 units IM. SUBJECTIVE: N/A OBJECTIVE: N/A ASSESSMENT: N/A PLAN: N/A [facility] Conversion, [facility] - 02/08/1997 12:01 AM CDT Phone Note signed by at 02/08/97 6191 Author: Rudy Conversion Service: (none) Author Type: (none) Filed: 08/15/10 0135 Note Time: 02/08/97 0001 Status: Signed Sheet Metal Duct Worker Supervisor: Rudy Strong IMPRESSION: Sore Throat-(Child)-Nurse Guidelines - PHARMACY: [phone] [facility] SUBJECTIVE: * HOME PHONE: [phone] * PATIENT COMPLAINS OF... Sore throat, positive [...] 6:23pm.. Call taken by FELIPE POTTER RN [phone] 02/08/1997 06:16 PM ADDENDUM: YT Ranjith Valenzuela - 02/07/1997 12:01 AM CDT Progress Notes signed by Ranjith Valenzuela MD at 02/21/97 0843 Author: Ranjith Valenzuela MD Service: (none) Author Type: Physician Filed: 08/15/10 0133 Note Time: 02/07/97 0001 Status: Signed Sheet Metal Duct Worker Supervisor: Ranjith Valenzuela MD (Physician) IMPRESSION: Viral syndrome. [...] improve with normal cough syrup. nbb Conversion, [facility] - 01/31/1997 12:01 AM CDT Phone Note signed by at 01/31/97 5867 Author: Imr Conversion Service: (none) Author Type: (none) Filed: 08/15/10 0127 Note Time: 01/31/97 0001 Status: Signed Sheet Metal Duct Worker Supervisor: Imr Conversion IMPRESSION: Sting,bee/insect-(child)-nurse guidelines SUBJECTIVE: PATIENT COMPLAINS OF... * HOME PHONE: [phone] * Bee/insect sting, -Mild redness, tenderness at [...] CALLBACK Call taken by ASHLEY CARDONA RN [phone] 01/31/1997 05:09 PM ADDENDUM: Conversion, [facility] - 12/21/1996 12:01 AM CDT Phone Note signed by at 12/21/96 7881 Author: Rudy Conversion Service: (none) Author Type: (none) Filed: 08/15/10 0054 Note Time: 12/21/96 0001 Status: Signed Sheet Metal Duct Worker Supervisor: Rudy Strong IMPRESSION: Fever (4-17 years) nurse guideline SUBJECTIVE: PATIENT COMPLAINS OF... Fever, * HOME PHONE: [phone] * 101.8; -VURI symptoms < 72 * CONTACT PHONE: [phone] * hours also has headache and * [...] WAS BUSY. <> 12/22/1996 09:51AM by PAUL SERARNO RN: feels better- mother will just monitor and call w/ other concerns Brisa Smith PA-C - 08/22/1996 12:01 AM CDT Progress Notes signed by Brisa Smith PA-C at 02/25/97 0758 Author: Brisa Smith PA-C Service: (none) Author Type: Physician [employer] Consultant Filed: 08/14/10 5913 Note Time: 08/22/96 0001 Status: Signed Sheet Metal Duct Worker Supervisor: Brisa Smith PA-C (Physician Reservoir Engineering Consultant) IMPRESSION: Pharyngitis, most likely strep. SUBJECTIVE: Mino [...] Follow up if symptoms do not improve. [facility] TILE SETTER Conversion, [facility] - 08/21/1996 12:01 AM CDT Phone Note signed by at 08/21/96 1069 Author: Rudy Conversion Service: (none) Author Type: (none) Filed: 08/14/10 4207 Note Time: 08/21/96 0001 Status: Signed Sheet Metal Duct Worker Supervisor: Rudy Conversion IMPRESSION: Fever (4-17 years) nurse guideline SUBJECTIVE: PATIENT COMPLAINS OF... Fever, * HOME PHONE: [phone] * Child woke with fever of * CONTACT PHONE: [phone] * 102PO this morning,08/21/96. * Mom * [...] INFORMED PATIENT TO CALLBACK IF... sx. worsen. [facility] COMMENTS... Lost all of note due to some error and had to reenter from memory. Call taken by GEORGE MICHELE RN [phone] 08/21/1996 11:58 AM ADDENDUM: <> 08/22/1996 01:35PM by FAZAL BERGERON RN: leg pain gone, complained of sore throat this morning, vomited once, fever continues up to 103, mom will bring child to for strep test Conversion, [facility] - 08/16/1996 12:01 AM CDT Phone Note signed by at 08/16/96 3255 Author: Rudy Conversion Service: (none) Author Type: (none) Filed: 08/14/10 2319 Note Time: 08/16/96 0001 Status: Signed Sheet Metal Duct Worker Supervisor: Rudy Strong IMPRESSION: Nose Trauma SUBJECTIVE: PATIENT COMPLAINS OF... Aprox. * HOME PHONE: [phone] * 1/2 hour ago child was in [...] RECOMMENDED THE FOLLOWING... Ref. Nosebleed Guideline and [facility] HealthBook, nose trauma. Discussed sx. of head trauma to look for and if sx. worsen or change to be seen. Mom will call back if needed, prefers no call back from us. Call taken by FELIPE POTTER RN [phone] 08/16/1996 06:30 PM ADDENDUM: Conversion, [facility] - 07/08/1996 12:01 AM CST Phone Note signed by at 07/08/96 9592 Author: Rudy Conversion Service: (none) Author Type: (none) Filed: 08/14/10 4685 Note Time: 07/08/96 0001 Status: Signed Sheet Metal Duct Worker Supervisor: Rudy Strong IMPRESSION: Fever, Vague tummy ache c/o. SUBJECTIVE: PATIENT COMPLAINS OF... Negative * HOME PHONE:[phone] * strep screen result today. Child has [...] CALL BY FELIPE PIERCE RN 07/08/1996 02:06PM [phone] ADDENDUM: Rivera Izquierdo MD - 06/10/1996 12:01 AM CST Progress Notes signed by Rivera Izquierdo MD at 06/15/96 0962 Author: Rivera Izquierdo MD Service: (none) Author Type: Physician Filed: 08/14/102229 Note Time: 06/10/96 0001 Status: Signed Sheet Metal Duct Worker Supervisor: Rivera Izquierdo MD (Physician) IMPRESSION: Cough and [...] t.i.d. x ten days. Recheck p.r.n. bmn TILE SETTER Tae [facility] - 04/27/1996 12:01 AM CST Phone Note signed by at 04/27/96 1011 Author: Rudy Strong Service: (none) Author Type: (none) Filed: 08/14/102199 Note Time: 04/27/96 0001 Status: Signed Sheet Metal Duct Worker Supervisor: Rudy Strong IMPRESSION: Sore Throat-(Child)-Nurse Guidelines - APPOINTMENT MADE WITH PEDIATRIC NURSE 04/27/1996 01:30PM * HOME PHONE:[phone] * SUBJECTIVE: PATIENT COMPLAINS OF... Sore throat,> [...] CALL BY FELIPE PIERCE RN 04/27/1996 09:59AM [phone] ADDENDUM: Mary Farmer MD - 03/09/1996 12:01 AM CST Progress Notes signed by Mary Stewart MD at 03/18/96 0821 Author: Mary Stewart MD Service: (none) Author Type: Physician Filed: 08/14/102128 Note Time: 03/09/96 0001 Status: Signed Sheet Metal Duct Worker Supervisor: Mary Stewart MD (Physician) IMPRESSION: Right otitis [...] any other concerns or questions arise. [id number] TILE SETTER Conversion, [facility] - 03/08/1996 12:01 AM CST Phone Note signed by at 03/08/96 1845 Author: Rudy Conversion Service: (none) Author Type: (none) Filed: 08/14/10 9683 Note Time: 03/08/96 0001 Status: Signed Sheet Metal Duct Worker Supervisor: Rudy Conversion IMPRESSION: Sore Throat-(Child)-Nurse Guidelines - REFERRED PATIENT TO URGENT CARE AT [facility] * HOME PHONE: [phone] * SUBJECTIVE: PATIENT COMPLAINS OF... Sore throat [...] concerns; Call taken by ROGER DUNHAM RN [phone] 03/08/1996 05:52 PM ADDENDUM: Conversion, [facility] - 10/20/1995 12:01 AM CDT Phone Note signed by at 10/20/95 4266 Author: Rudy Strong Service: (none) Author Type: (none) Filed: 08/14/102004 Note Time: 10/20/95 0001 Status: Signed Sheet Metal Duct Worker Supervisor: Rudy Storng IMPRESSION: giardia in house - REFERRED PATIENT TO URGENT CARE AT [facility] * HOME PHONE:[phone] * SUBJECTIVE: PATIENT COMPLAINS OF... mom calling. [...] CALL BY JESSICA SINHA RN 10/20/1995 06:12PM [phone] ADDENDUM: Darryn Olson MD - 07/12/1995 12:01 AM CST Progress Notes signed by Darryn Olson MD at 02/27/022017 Author: Darryn Olson MD Service: (none) Author Type: (none) Filed: 08/14/10 201 Note Time: 07/12/95 0001 Status: Signed Sheet Metal Duct Worker Supervisor: Darryn Olson MD (Physician) IMPRESSION: No dictation required. Upper respiratory infection and pharyngitis. SUBJECTIVE: N/A OBJECTIVE: N/A ASSESSMENT: N/A PLAN: N/A [id number] Mary Stewart MD - 06/24/1995 12:01 AM CST Progress Notes signed by Mary Stewart MD at 07/01/95 5966 Author: Mary Stewart MD Service: (none) Author Type: Physician Filed: 08/14/10 725 Note Time: 06/24/95 0001 Status: Signed Sheet Metal Duct Worker Supervisor: Mary Stewart MD (Physician) IMPRESSION: Right otitis media and possible strep pharyngitis. SUBJECTIVE: Mino is a nwzy-hvys-hbs who comes in having had a sore throat today and a stomachache. She has also complained of her finger tips hurting. She has had no cold symptoms. No temp. Apparently, mom had a high temp recently with achiness and sore throat, and her brother has had some stomachache and elevated temp. ALLERGIES: SULFA. OBJECTIVE: Wt: 50 lb. In general, she is an alert nfre-veyy-hcy in no acute distress. She does have [...] throat culture on her brother, Xander. beh TILE SETTER Darryn Olson MD - 03/01/1995 12:01 AM CST Progress Notes signed by Darryn Olson MD at 06/20/95 0748 Author: Darryn Olson MD Service: (none) Author Type: (none) Filed: 08/14/10 1801 Note Time: 03/01/95 0001 Status: Signed Sheet Metal Duct Worker Supervisor: Darryn Olson MD (Physician) IMPRESSION: No dictation required. SUBJECTIVE: N/A OBJECTIVE: N/A ASSESSMENT: N/A PLAN: N/A Nikhil Eldridge MD - 12/19/1994 12:01 AM CDT Progress Notes signed by Nikhil Eldridge MD at 01/07/95 1311 Author: Nikhil Eldridge MD Service: (none) Author Type: Physician Filed: 08/14/10 1737 Note Time: 12/19/94 0001 Status: Signed Sheet Metal Duct Worker Supervisor: Nikhil Eldridge MD (Physician) IMPRESSION: 1. Negative [...] signed by Mary Stewart MD at 09/25/94 3082 Author: Mary Stewart MD Service: (none) Author Type: Physician Filed: 08/14/10 1716 Note Time: 09/12/94 0001 Status: Signed Sheet Metal Duct Worker Supervisor: Mary Stewart MD (Physician) IMPRESSION: Healthy tgxw-dmst-ohh. SUBJECTIVE: Mino is a gbha-coou-qcx who comes in today. Really, mom has [...] eyes, and she passed Langstereo. ASSESSMENT: Healthy lfhm-iekm-mmk. PLAN: Will go ahead with her DPT, [...] Service: (none) Author Type: Physician Filed: 08/14/10 5037 Note Time: 08/09/94 0001 Status: Signed Sheet Metal Duct Worker Supervisor: Violette Thomas MD (Physician) IMPRESSION: Vulvovaginitis. SUBJECTIVE: iMno has been having problems with redness and [...] Avoid Vantin in the future if possible. [place] that her rash was clearing at this [...] Service: (none) Author Type: Physician Filed: 08/14/10 6299 Note Time: 07/18/94 0001 Status: Signed Sheet Metal Duct Worker Supervisor: Rivera Izquierdo MD (Physician) IMPRESSION: Right otitis [...] we discussed getting her allergy skin-tested at [place] with an concrete saw operator. OBJECTIVE: On examination, WT: 46 1/2 pounds. Her right tympanic membrane is dull with air fluid level inferiorly and somewhat reddened. The remainder of the examination is unremarkable. Pharynx is unremarkable. ASSESSMENT: Right otitis. PLAN: Vantin 100 b.i.d. times ten days. Recheck p.r.n. if not improving. TILE SETTER documented in this encounter Plan of [...] 9:00 AM Results for this LATERAL HIP HARD TILE SETTER procedure are i n the results section. BETA STREP RESP Routine 07/25/2001 1:09 PM Result s for this CULT HARD TILE SETTER procedure are i n the results section. XR ELBOW Routine 10/17/1999 8:50 AM Results f or this CDT procedure are i n the results section. STREP GROUP A Routine 04/08/1999 5:51 PM Results for this ANTIGEN TEST HARD TILE SETTER procedure are i n the results section. BETA STREP FOLLOWUP Routine 04/08/1999 5:51 PM Re sults for this HARD TILE SETTER procedure are i n the results section. STREP GROUP A Routine 08/06/1998 11:10 AM Results for this ANTIGEN TEST CDT procedure are i n the results section. STREP GROUP A Routine 06/08/1998 10:09 AM Results for this ANTIGEN TEST HARD TILE SETTER procedure are i n the results section. BETA STREP FOLLOWUP Routine 06/08/1998 10:09 AM R esults for this HARD TILE SETTER procedure are i n the results section. WBC, BLOOD Routine 05/29/1998 3:47 PM Results f or this HARD TILE SETTER procedure are i n the results section. BETA STREP RESP Routine 04/26/1998 3:23 PM Result s for this CULT HARD TILE SETTER procedure are i n the results section. STREP GROUP A Routine 04/05/1998 10:52 AM Results for this ANTIGEN TEST HARD TILE SETTER procedure are i n the results section. BETA STREP FOLLOWUP Routine 04/05/1998 10:52 AM R esults for this HARD TILE SETTER procedure are i n the results section. STREP GROUP A Routine 02/27/1998 10:38 AM Results for this ANTIGEN TEST HARD TILE SETTER procedure are i n the results section. BETA STREP FOLLOWUP Routine 02/27/1998 10:38 AM R esults for this HARD TILE SETTER procedure are i n the results section. MORPH FINAL REPORT Routine 02/27/1998 9:03 AM Res ults for this HARD TILE SETTER procedure are i n the results section. PLATELETS Routine 02/27/1998 9:03 AM Results f or this HARD TILE SETTER procedure are i n the results section. HEMOGLOBIN, BLOOD Routine 02/27/1998 9:03 AM Resu lts for this HARD TILE SETTER procedure are i n the results section. WBC, BLOOD Routine 02/27/1998 9:03 AM Results f or this HARD TILE SETTER procedure are i n the results [...] 4:46 PM Result s for this CULT HARD TILE SETTER procedure are i n the results section. BETA STREP RESP Routine 06/26/1997 12:09 PM Resul ts for this CULT HARD TILE SETTER procedure are i n the results section. STREP GROUP A Routine 05/11/1997 4:58 PM Results for this ANTIGEN TEST HARD TILE SETTER procedure are i n the results section. BETA STREP FOLLOWUP Routine 05/11/1997 4:58 PM Re sults for this HARD TILE SETTER procedure are i n the results [...] ??Negative examination of the right index finger. [id number] Dictating SABINA MENDES Radiologist Narrative 08/10/2003 10:01 AM CDT COMPARISON STUDY: ??None. CLINICAL HISTORY: ??12-year-old female w ith finger pain. Procedure Note Sabina Flanagan MD - 06/29/2016Formattin g of this note might be different from the original. COMPARISON STUDY: None. CLINICAL HISTORY: 12-year-old female wit h finger pain. IMPRESSION : Negative examination of the right inde x finger. [id number] Dictating SABINA MENDES Radiologist Roxanne Flores MD RAD GD XR Pelvis W Lt Lateral Hip (06/30/2003 9:00 AM HARD TILE SETTER) Anatomical Region Laterality Modality Pelvis, Hip Other Specimen (Source) Anatomical Location Collection Method / Collectio n Time Received Time / Laterality Volume Narrative 06/30/2003 9:00 AM HARD TILE SETTER There is no fracture or dislocation. ??There is no bone or soft tissue abnormality. ??The femoral head ossifica tion center have fused bilaterally. MD-01- [id number] Dictating RIVERA LOMBARDO RADIOLOGIST Procedure Note Rivera Guadalupe - 07/04/2016Formattin g of this note might be different from the original. There is no fracture or dislocation. The re is no bone or soft tissue abnormality. The femoral head ossificati on center have fused bilaterally. MD-01- [id number] Dictating RIVERA LOMBARDO RADIOLOGIST Rahat Mix PA-C RAD GD Beta Strep Resp Cult (07/25/2001 1:09 PM HARD TILE SETTER) athologist Signature Strep Screen SEE TEXT HP CONVERSION Comment: Patient: MINO CLEMENTE Culture Strep Screen, Throat @ ?Collected: ??[id number] ??[id number] Source: Throat ?Processed: ??[id number] ??[id number] ? 1V Final Report ------ ?[id number] ??1000 No beta hemolytic Strep group A isolated . @ = Strep Screen Performed at ??[address] [place], [place] ?[address] Specimen (Source) Anatomical Collection Method Collection Time Re ceived Time Location / / Volume Laterality 07/25/2001 1:09 PM HARD TILE SETTER Jessica Kenney MD LAB_1 Performing Organization Address [facility] Phon e Number HP CONVERSION XR Elbow [...] Group A Antigen Test (04/08/1999 5:51 PM HARD TILE SETTER) [facility] Time Signature Strep Group A Negative Negative HP CONVERSION Antigen Test Comment: Culture to follow. Specimen (Source) Anatomical Collection Method Collection Time Re ceived Time Location / / Volume Laterality 04/08/1999 5:51 PM HARD TILE SETTER Jackson Rivera MD LAB_1 Performing Organization Address City/[facility] Phon e Number HP CONVERSION Beta Strep Followup (04/08/1999 5:51 PM HARD TILE SETTER) P athologist Signature Strep Screen SEE TEXT HP CONVERSION Comment: Patient: MINO CLEMENTE Rapid Strep Follow up Culture @ ? Collected: ??[id number] ??[id number] Source: Throat ?Processed: ??[id number] ??[id number] ? 1V Final Report ------ ?[id number] ??1130 No beta hemolytic Strep group A isolated . @ = Rapid F/U Cult Performed at [address] [place], [place] ?[address] Specimen (Source) Anatomical Collection Method Collection Time Re ceived Time Location / / Volume Laterality 04/08/1999 5:51 PM HARD TILE SETTER Jackson Rivera MD LAB_1 Performing Organization Address City/[facility] Phon e Number HP CONVERSION Strep Group A Antigen Test (08/06/1998 11:10 AM CDT) Analysis Performed At [facility] Strep Group A Positive Negative HP CONVERSION Antigen Test Specimen (Source) Anatomical Collection Method Collection Time Re ceived Time Location / / Volume Laterality 08/06/1998 11:10 AM CDT Darryn Olson MD LAB_1 Performing Organization Address City/[facility]/ZIP Code Phon e Number HP CONVERSION Strep Group A Antigen Test (06/08/1998 10:09 AM HARD TILE SETTER) Analysis Performed At [facility] Strep Group A Negative Negative HP CONVERSION Antigen Test Comment: Culture to follow. Specimen (Source) Anatomical Collection Method Collection Time Re ceived Time Location / / Volume Laterality 06/08/1998 10:09 AM HARD TILE SETTER Rivera Izquierdo MD LAB_1 Performing Organization Address City/[facility]/ZIP Code Phon e Number HP CONVERSION (ABNORMAL) Beta Strep Followup (06/08/1998 10:09 AM HARD TILE SETTER) [facility] Time Signature Strep Screen SEE TEXT HP CONVERSION (A) Comment: Patient: MINO CLEMENTE Rapid Strep Follow up Culture @ ? Collected: ??[id number] ??[id number] Source: Throat ?Processed: ??[id number] ??1012 ? 1C Final Report ------ ?[id number] ??1000 Beta Strep Group A Present. ICSI Pharyngitis guideline recommends Penicillin V potassium (Pen VK) in nonal lergic patients. If < 50 lbs, 250 mg PenVK BID for 10 day s. >=50 lbs, 500 mg PenVK BID for 10 days. @ = Rapid F/U Cult Performed at [address] [place], [place] ?[address] Specimen (Source) Anatomical Collection Method Collection Time Re ceived Time Location / / Volume Laterality 06/08/1998 10:09 AM HARD TILE SETTER Rivera Izquierdo MD LAB_1 Performing Organization Address City/State/ZIP Code Phon e Number HP CONVERSION WBC, Blood (05/29/1998 3:47 PM HARD TILE SETTER) athologist Signature White Blood 6.3 5.0 - 14.5 HP CONVERSION Cell Count K/cmm Specimen (Source) Anatomical Collection Method Collection Time Re ceived Time Location / / Volume Laterality 05/29/1998 3:47 PM HARD TILE SETTER Benita Worthy III, MD LAB_1 Performing Organization Address City/State/ZIP Code Phon e Number HP CONVERSION (ABNORMAL) Beta Strep Resp Cult (04/26/1998 3:23 PM HARD TILE SETTER) Analysis Performed At Patho logist Time Signature Strep Screen SEE TEXT HP CONVERSION (A) Comment: Patient: MINO CLEMENTE Culture Strep Screen, Throat @ ?Collected: ??[id number] ??1523 Source: THROAT ?Processed: ??[id number] ??1523 ? 1C Final Report ------ ?[id number] ??0911 Beta Strep Group A Present. ICSI Pharyngitis guideline recommends Penicillin V potassium (Pen VK) in nonal lergic patients. If < 50 lbs, 250 mg PenVK BID for 10 day s. >=50 lbs, 500 mg PenVK BID for 10 days. @ = Strep Screen Performed at [address] [place] ?[address] Specimen (Source) Anatomical Collection Method Collection Time Re ceived Time Location / / Volume Laterality 04/26/1998 3:23 PM HARD TILE SETTER Mary Stewart MD LAB_1 Performing Organization Address City/State/ZIP Code Phon e Number HP CONVERSION Strep Group A Antigen Test (04/05/1998 10:52 AM HARD TILE SETTER) Analysis Performed At [facility] Time Signature Strep Group A Negative Negative HP CONVERSION Antigen Test Comment: Culture to follow. Specimen (Source) Anatomical Collection Method Collection Time Re ceived Time Location / / Volume Laterality 04/05/1998 10:52 AM HARD TILE SETTER Jaquan Montanez MD LAB_1 Performing Organization Address [facility] Code Phon e Number HP CONVERSION (ABNORMAL) Beta Strep Followup (04/05/1998 10:52 AM HARD TILE SETTER) Analysis Performed At [facility] Time Signature Strep Screen SEE TEXT HP CONVERSION (A) Comment: Patient: MINO CLEMENTE Rapid Strep Follow up Culture @ ? Collected: ??[id number] ??1052 Source: Throat ?Processed: ??[id number] ??1054 ? 1C Final Report ------ ?[id number] ??1100 Beta Strep Group A Present. ICSI Pharyngitis guideline recommends Penicillin V potassium (Pen VK) in nonal lergic patients. If < 50 lbs, 250 mg PenVK BID for 10 day s. >=50 lbs, 500 mg PenVK BID for 10 days. @ = Rapid F/U Cult Performed at [address] [place] ?[address] Specimen (Source) Anatomical Collection Method Collection Time Re ceived Time Location / / Volume Laterality 04/05/1998 10:52 AM HARD TILE SETTER Jaquan Montanez MD LAB_1 Performing Organization Address City/[facility]/ZIP Code Phon e Number HP CONVERSION Strep Group A Antigen Test (02/27/1998 10:38 AM HARD TILE SETTER) Analysis Performed At [facility] Time Signature Strep Group A Negative Negative HP CONVERSION Antigen Test Comment: Culture to follow. Specimen (Source) Anatomical Collection Method Collection Time Re ceived Time Location / / Volume Laterality 02/27/1998 10:38 AM HARD TILE SETTER Mary Stewart MD LAB_1 Performing Organization Address City/[facility]/ZIP Code Phon e Number HP CONVERSION Beta Strep Followup (02/27/1998 10:38 AM HARD TILE SETTER) P athologist Signature Strep Screen SEE TEXT HP CONVERSION Comment: Patient: MINO CLEMENTE Rapid Strep Follow up Culture @ ? Collected: ??[id number] ??[id number] Source: Throat ?Processed: ??[id number] ??1040 ? 1C Final Report ------ ?[id number] ??1010 No beta hemolytic Strep group A isolated . @ = Rapid F/U Cult Performed at [address] [place] ?[address] Specimen (Source) Anatomical Collection Method Collection Time Re ceived Time Location / / Volume Laterality 02/27/1998 10:38 AM HARD TILE SETTER Mary Stewart MD LAB_1 Performing Organization Address [facility] Phon e Number HP CONVERSION (ABNORMAL) WBC, Blood (02/27/1998 9:03 AM HARD TILE SETTER) Analysis Performed At Patho logist Time Signature White Blood 3.4 (LL) 5.0 - 14.5 HP CONVERSION Cell Count K/cmm Specimen (Source) Anatomical Collection Method Collection Time Re ceived Time Location / / Volume Laterality 02/27/1998 9:03 AM HARD TILE SETTER Mary Stewart MD LAB_1 Performing Organization Address [facility] Phon e Number HP CONVERSION Hemoglobin, Blood (02/27/1998 9:03 AM HARD TILE SETTER) P athologist Signature Hemoglobin 13.9 11.5 - 15.0 HP CONVERSION gm/dL Specimen (Source) Anatomical Collection Method Collection Time Re ceived Time Location / / Volume Laterality 02/27/1998 9:03 AM HARD TILE SETTER Mary Stewart MD LAB_1 Performing Organization Address [facility] Code Phon e Number HP CONVERSION Platelets (02/27/1998 9:03 AM HARD TILE SETTER) P athologist Signature Platelet Count 266 150 - 450 HP CONVERSION k/cmm Specimen (Source) Anatomical Collection Method Collection Time Re ceived Time Location / / Volume Laterality 02/27/1998 9:03 AM HARD TILE SETTER Mary Stewart MD LAB_1 Performing Organization Address [facility] Phon e Number HP CONVERSION Morph Final Report (02/27/1998 9:03 AM HARD TILE SETTER) Patholo gist Method Time Signature Morphology SEE TEXT No normal HP CONVERSION Final Report range Comment: Patient: MINO CLEMENTE ?Morphology Pathology # ??[id number] ?Date Obtained: ? Date Received: DIAGNOSIS: ?1. [...] / / Volume Laterality 02/27/1998 9:03 AM HARD TILE SETTER Mary Stewart MD LAB_1 Performing Organization Address City/[facility] Phon e Number HP CONVERSION Strep Group A Antigen Test (01/26/1998 3:25 PM CDT) Analysis Performed At Patho logist Time Signature Strep Group A Negative Negative HP CONVERSION Antigen Test Comment: Culture to follow. Specimen (Source) Anatomical Collection Method Collection Time Re ceived Time Location / / Volume Laterality 01/26/1998 3:25 PM CDT Rivera Izquierdo MD LAB_1 Performing Organization Address [facility] Code Phon e Number HP CONVERSION Beta Strep Followup (01/26/1998 3:25 PM CDT) P athologist Signature Strep Screen SEE TEXT HP CONVERSION Comment: Patient: MINO CLEMENTE Willie Rapid Strep Follow up Culture @ ? Collected: ??[id number] ??1525 Source: Throat ?Processed: ??[id number] ??1528 ? 1C Final Report ------ ?[id number] ??0912 No beta hemolytic Strep group A isolated . @ = Rapid F/U Cult Performed at [address] [place] ?[address] Specimen (Source) Anatomical Collection Method Collection Time Re ceived Time Location / / Volume Laterality 01/26/1998 3:25 PM CDT Rivera Izquierdo MD LAB_1 Performing Organization Address [facility] Phon e Number HP CONVERSION Strep Group A Antigen Test (11/16/1997 11:56 AM CDT) Analysis Performed At [facility] Time Signature Strep Group A Negative Negative HP CONVERSION Antigen Test Comment: Culture to follow. Specimen (Source) Anatomical Collection Method Collection Time Re ceived Time Location / / Volume Laterality 11/16/1997 11:56 AM CDT Rivera Izquierdo MD LAB_1 Performing Organization Address City/[facility] Phon e Number HP CONVERSION Beta Strep Followup (11/16/1997 11:56 AM CDT) athologist Signature Strep Screen SEE TEXT HP CONVERSION Comment: Patient: MINO CLEMENTE Rapid Strep Follow up Culture @ ? Collected: ??[id number] ??1156 Source: Throat ?Processed: ??[id number] ??1158 ? 1C Final Report ------ ?[id number] ??0913 No beta hemolytic Strep group A isolated . @ = Rapid F/U Cult Performed at [address] [place] ?[address] Specimen (Source) Anatomical Collection Method Collection Time Re ceived Time Location / / Volume Laterality 11/16/1997 11:56 AM CDT Rivera Izquierdo MD LAB_1 Performing Organization Address City/[facility] Phon e Number HP CONVERSION Strep Group A Antigen Test (08/31/1997 12:07 PM CDT) Analysis Performed At [facility] Time Signature Strep Group A Negative Negative HP CONVERSION Antigen Test Comment: Culture to follow. Specimen (Source) Anatomical Collection Method Collection Time Re ceived Time Location / / Volume Laterality 08/31/1997 12:07 PM CDT Mary Stewart MD LAB_1 Performing Organization Address City/[facility]/ZIP Code Phon e Number HP CONVERSION Beta Strep Followup (08/31/1997 12:07 PM CDT) athologist Signature Strep Screen SEE TEXT HP CONVERSION Comment: Patient: CUAUHTEMOC MINO Tapia Rapid Strep Follow up Culture @ ? Collected: ??[id number] ??1207 Source: Throat ?Processed: ??[id number] ??1209 Final Report ------ ?[id number] ??0732 No beta hemolytic Strep group A isolated . @ = Rapid F/U Cult Performed at [address] [place] ?[address] Specimen (Source) Anatomical Collection Method Collection Time Re ceived Time Location / / Volume Laterality 08/31/1997 12:07 PM CDT Mary Stewart MD LAB_1 Performing Organization Address City/State/ZIP Code Phon e Number HP CONVERSION Beta Strep Resp Cult (08/01/1997 4:43 PM CDT) P athologist Signature Strep Screen SEE TEXT HP CONVERSION Comment: Patient: MINO CLEMENTE Culture Strep Screen, Throat @ ?Collected: ??[id number] ??1640 Source: Throat ?Processed: ??[id number] ??1644 ? [place] Final Report ------ ?[id number] ??0812 No beta hemolytic Strep group A isolated . @ = Strep Screen Performed at [address] [place] ?[address] Specimen (Source) Anatomical Collection Method Collection Time Re ceived Time Location / / Volume Laterality 08/01/1997 4:43 PM CDT Mary Stewart MD LAB_1 Performing Organization Address City/State/ZIP Code Phon e Number HP CONVERSION (ABNORMAL) Beta Strep Resp Cult (07/11/1997 4:46 PM HARD TILE SETTER) Analysis Performed At Patho logist Time Signature Strep Screen SEE TEXT HP CONVERSION (A) Comment: Patient: MINO CLEMENTE Culture Strep Screen, Throat @ ?Collected: ??[id number] ??164 Source: THROAT ?Processed: ??[id number] ??1648 ? Throat ??,, Final Report ------ ?1055 Beta Strep Group A Present. ICSI Pharyngitis guideline recommends Penicillin V potassium (Pen VK) in nonal lergic patients. If < 50 lbs, 250 mg PenVK BID for 10 day s. >=50 lbs, 500 mg PenVK BID for 10 days. @ = Strep Screen Performed at [address] [place], [place] ?[address] Specimen (Source) Anatomical Collection Method Collection Time Re ceived Time Location / / Volume Laterality 07/11/1997 4:46 PM HARD TILE SETTER Mary Stewart MD LAB_1 Performing Organization Address City/State/ZIP Code Phon e Number HP CONVERSION (ABNORMAL) Beta Strep Resp Cult (06/26/1997 12:09 PM HARD TILE SETTER) Analysis Performed At Patho logist Time [...] Strep Screen Performed at [address] [place], [place] ?[address] Specimen (Source) Anatomical Collection Method Collection Time Re ceived Time Location / / Volume Laterality 06/26/1997 12:09 PM HARD TILE SETTER Jolie Cazares MD LAB_1 Performing Organization Address [facility] Phon e Number HP CONVERSION Strep Group A Antigen Test (05/11/1997 4:58 PM HARD TILE SETTER) Analysis Performed At Patho logist Time Signature Strep Group A Negative Negative HP CONVERSION Antigen Test Comment: Culture to follow. Specimen (Source) Anatomical Collection Method Collection Time Re ceived Time Location / / Volume Laterality 05/11/1997 4:58 PM HARD TILE SETTER Mary Stewart MD LAB_1 Performing Organization Address [facility] Phon e Number HP CONVERSION (ABNORMAL) Beta Strep Followup (05/11/1997 4:58 PM HARD TILE SETTER) Analysis Performed At Patho logist Time Signature Strep Screen SEE TEXT HP CONVERSION (A) Comment: Patient: MINO CLEMENTE Rapid Strep Follow up Culture @ ? Collected: ??[id number] ??1658 Source: Throat ?Processed: ??[id number] ??1703 Final Report ------ ?[id number] ??1148 Beta Strep Group A Present. Pharyngitis CQI Grp recommends for nonal lergic patients: If < 50 lbs, 250 mg PenVK BID for 10 day s. >=50 lbs, 500 mg PenVK BID for 10 days. @ = Rapid F/U Cult Performed at [address], [place] ?[address] Specimen (Source) Anatomical Collection Method Collection Time Re ceived Time Location / / Volume Laterality 05/11/1997 4:58 PM HARD TILE SETTER Mary Stewart MD LAB_1 Performing Organization Address City/State/ZIP Code Phon e Number HP CONVERSION documented in this encounter Visit Diagnoses Not on filedocumented in this encounter Care Teams Senior Systems Administrator Relationship Specialty Start Date End Date Brisa Smith PA-C PCP - General 07/30/10 04/18/15 [address] [place] [address] documented as of this encounter
--- OUTSIDE RECORDS SUMMARY | 2022-03-20 10:05 | XMS_ITS | Encounter Summary ---
:1990 Author Organization [facility] Address [address] [place] [address] Care Team Providers Name Role Phone No [...] on filedocumented in this encounter Care Teams Primary Operator Relationship Specialty Start Date End Date No Ref-Primary, Physician PCP - General 11/16/18 documented as of this encounter
--- OUTSIDE RECORDS SUMMARY | 2022-03-20 10:05 | XMS_ITS | Encounter Summary ---
:1990 Author Organization [facility] Address [address] [place] [address] Care Team Providers Name Role Phone Brisa Smith PA-C Primary Care Provider Encounter Details Date Type Department Care Team Description 01/23/2004 PN Conversion Only [place] CONVERSION Rita Carlisle, [address] [address] [address] [place], [place] [phone] (Wo rk) Social History Tobacco Use Types [...] Strep Follow up Culture @ ? Collected: ??[id number] ??1528 Source: Throat ?Processed: ??[id number] ??1529 Final Report ------ ?[id number] ??0910 No beta hemolytic Strep group A isolated . @ = Rapid F/U Cult Performed at [address] [place] [place] ?[address] Specimen (Source) Anatomical Collection Method Collection Time Re ceived Time Location / / Volume Laterality 01/23/2004 3:28 PM CDT Rita Carlisle MD LAB_1 Performing Organization Address City/State/ZIP Code Phon e Number HP CONVERSION documented in this encounter Visit Diagnoses Not on filedocumented in this encounter Care Teams Goodwill Representative Relationship Specialty Start Date End Date Brisa Smith PA-C PCP - General 07/30/10 04/18/15 [address] [place] [address] documented as of this encounter
--- OUTSIDE RECORDS SUMMARY | 2022-03-20 10:05 | XMS_ITS | Encounter Summary ---
:1990 Author Organization [facility] Address [address] [address] Care Team Providers Name Role Phone Brisa Smith PA-C Primary Care Provider Encounter Details Date Type Department Care Team Description 06/30/2003 PN Conversion Only [place] Rahat Florez PA-C [address] [place] [address] [place] [address] (Wo rk) Social History Tobacco Use Types Packs/Day Years Used Date Smoking Tobacco: Never Assessed Sex Assigned at Date Recorded Not on file documented as of this encounter Plan of Treatment Not on filedocumented as of this encounter Procedures Procedure Name Priority Date/Time Associated Diagnosis Comme nts COMPLETE BLOOD Routine 06/30/2003 8:43 AM Results for this COUNT-NO DIFF BLUE SPLIT TRIMMER procedure are in the results section. documented in this encounter Results (ABNORMAL) Complete Blood Count-No Diff (06/30/2003 8:43 AM BLUE SPLIT TRIMMER) [facility] Method Time Signature White Blood Cell [...] 32.0 - HP CONVERSION Hemoglobin Conc 36.5 [place] gm/dL RDW 12.7 11.0 - HP CONVERSION 15.0 % Platelet Count 232 150 - 450 HP CONVERSION k/cmm Specimen (Source) Anatomical Collection Method Collection Time Re ceived Time Location / / Volume Laterality 06/30/2003 8:43 AM BLUE SPLIT TRIMMER Rahat Mix PA-C LAB_1 Performing Organization Address City/State/ZIP Code Phon e Number HP CONVERSION documented in this encounter Visit Diagnoses Not on filedocumented in this encounter Care Teams Chargeback Analyst Relationship Specialty Start Date End Date Brisa Smith PA-C PCP - General 07/30/10 04/18/15 [address] [place] [address] documented as of this encounter
--- OUTSIDE RECORDS SUMMARY | 2022-03-20 10:05 | XMS_ITS | Encounter Summary ---
:1990 Author Organization [facility] Address [address] [place] [address] Care Team Providers Name Role Phone Brisa mSith PA-C Primary Care Provider Reason for Visit Reason Comments Other Encounter Details Date Type Department Care Team Description 04/09/2004 Telephone [facility] Brittany Turner [address] [place], [place] [address] [place], [place] [phone] Social History Tobacco Use Types Packs/Day Years Used Date Smoking Tobacco: Never Assessed Sex Assigned at Date Recorded Not on file documented as of this encounter [facility], Message - 04/09/2004 1:20 PM CST Phone Note filed by [employer] at 08/13/10 8178 Author: [employer] Service: (none) Author Type: (none) Filed: 08/13/10 1537 Note Time: 04/09/04 1320 Status: Signed Rivet Tosser: [employer] MESSAGE TO CARE TEAM NAME OF CALLER:Rene (Mom) NAME OF CLINICIAN:Ashkan Hernandes MESSAGE:Pt. had a culture done 03/30. Mom would like to have the results. PHARMACY NAME: PHARMACY PHONE #: CALL BACK PHONE #:[phone] BEST TIME TO CALL BACK:any Is it [...] on filedocumented in this encounter Care Teams Dryerman/Woman Relationship Specialty Start Date End Date Brisa Smith PA-C PCP - General 07/30/10 04/18/15 [address] [place] [address] documented as of this encounter
--- OUTSIDE RECORDS SUMMARY | 2022-03-20 10:05 | XMS_ITS | Encounter Summary ---
:1990 Author Organization [facility] Address [address], [place] [address] Care Team Providers Name Role Phone Brisa Smith PA-C Primary Care Provider Encounter Details Date Type Department Care Team Description 01/04/2004 PN Conversion Only [place] CONVERSION Lena Chiu, [place], [address] [place] [address] [address] [phone] (Wo rk) Social History Tobacco Use [...] Blood Count W/3Diff (01/04/2004 11:20 AM CDT) [facility] Method Time Signature White Blood Cell 4.8 [...] - HP CONVERSION Hemoglobin Conc 36.5 gm/dL [place] RDW 12.6 11.0 - HP CONVERSION 15.0 [...] on filedocumented in this encounter Care Teams Mental Tester Relationship Specialty Start Date End Date Brisa Smith PA-C PCP - General 07/30/10 04/18/15 [address] [place] [address] documented as of this encounter
--- OUTSIDE RECORDS SUMMARY | 2022-03-20 10:05 | XMS_ITS | Encounter Summary ---
:1990 Author Organization [facility] Address [address] [address] Care Team Providers Name Role Phone Brisa Smith PA-C Primary Care Provider Encounter Details Date Type Department Care Team Description 08/17/2002 PN Conversion Only [place] CONVERSION Ralph, [address] APRN, [place] [address] [address] [place] [phone] (Wo rk) Social History Tobacco Use Types [...] 11:05 AM CDT) [facility] Time Signature Strep Group A Negative Negative HP CONVERSION Antigen Test Comment: Culture to follow. Specimen (Source) Anatomical Collection Method Collection Time Re ceived Time Location / / Volume Laterality 08/17/2002 11:05 AM CDT Lillian Rosas APRN, TRIMMING INSPECTOR LAB_1 Performing Organization Address City/State/ZIP Code Phon e Number HP CONVERSION Beta Strep Followup (08/17/2002 11:05 AM CDT) P athologist Signature Strep Screen SEE TEXT HP CONVERSION Comment: Patient: MINO POSADAS Rapid Strep Follow up Culture @ ? Collected: ??[id number] ??1105 Source: Throat ?Processed: ??[id number] ??1107 ? G Final Report ------ ?[id number] ??0937 No beta hemolytic Strep group A isolated . @ = Rapid F/U Cult Performed at [address] [place], [place] ?[address] Specimen (Source) Anatomical Collection Method Collection Time Re ceived Time Location / / Volume Laterality 08/17/2002 11:05 AM CDT Lillian Rosas APRN, TRIMMING INSPECTOR LAB_1 Performing Organization Address City/[facility] Phon e Number HP CONVERSION documented in this encounter Visit Diagnoses Not on filedocumented in this encounter Care Teams Shirring Machine Operator Automatic Relationship Specialty Start Date End Date Brisa Smith PA-C PCP - General 07/30/10 04/18/15 [address] [place], [place] [address] documented as of this encounter
--- OUTSIDE RECORDS SUMMARY | 2022-03-20 10:05 | XMS_ITS | Encounter Summary ---
:1990 Author Organization [place] Address [facility] [place] [address] Care Team Providers Name Role Phone No Ref-Primary, Physician Primary Care Provider [phone] Reason for Referral Diagnostic Imaging Ultrasound (Routine) - Pending Review Specialty Diagnoses / Procedures Referred By Contact Refer red To Contact Diagnoses resulting from in vitro fertilization in second trimester Juan Luis Chirinos MD Procedures MFM Read Screen Echo Single [address] [place], [place] [address] Referral ID Status Reason Start Date Expiration Date Visits V isits Requested Authorized [id number] Pending 11/20/2021 11/20/2022 1 1 Review Reason for Visit Diagnostic Imaging Ultrasound (Routine) - Pending Review Specialty Diagnoses / Procedures Referred By Contact Refer red To Contact Diagnoses resulting from in vitro fertilization in second trimester Juan Luis Chirinos MD Procedures MFM Read Screen Echo Single [address] [place], [place] [address] Referral ID Status Reason Start Date Expiration Date Visits V isits Requested Authorized [id number] Pending 11/20/2021 11/20/2022 1 1 Review Encounter Details Date Type Department Care Team Description 12/18/2021 Hospital Encounter [facility] Juan Luis Robins Pre gnancy resulting Maternal MD Nader from in vitro [facility] Center [address] fertilizat ion in [place] [address] second trimester [address] [place], [place] [address] [address] [place], [place] [phone] [address] (Zwig) [phone] Social History Tobacco Use Types Packs/Day Years [...] Name Priority Date/Time Associated Diagnosis Comme nts [facility] READ SCREENING Routine 12/18/2021 10:02 resultin g [...] SIGALA Study Date: 12/18/2021 9:18am Pat. NO: [id number] Referring ??MD: SPENCER VILLAGOMEZ Site: [facility] [employer] Business Analyst: Nancie Bailey RD MS : 1990 Age: 31 INDICATION In vitro fertilization METHOD Grayscale imaging, Doppler echocardiogra phy color flow velocity mapping and Doppler echocardiography pulsed wave and or wave with spectral display were used to assess cardiac structures for wilner goode [facility] echocardiogram. View: Sufficient Peng . Number of [...] RVOT view ?normal 3-vessel view ? normal 8-irfkuy-efjezxx view ? normal High short axis view [...] Pat. Name:Geovanni SIGALA Date:11/27 9:18am Pat. NO: [id number] MD:DYLAN NESS [facility]Nancie Bailey RDMS :1990Age:31 INDICATION In vitro fertilization METHOD Grayscale imaging, Doppler echocardiogra phy color flow velocity mapping and Doppler echocardiography pulsed wave and or wave with spectral display were used to assess cardiac structures for wilner goode [facility] echocardiogram. View: Sufficient Peng . Number of [...] normal RVOT view normal 3-vessel view normal 9-zwcqgy-hsmuybo view normal High short axis view normal [...] of the aorta. Juan Luis Chirinos MD [facility] ORDERABLES documented in this encounter Visit Diagnoses Diagnosis resulting from in vitro fertil ization in second trimester documented in this encounter Care Teams Company Driver Relationship Specialty Start Date End Date No Ref-Primary, Physician PCP - General 11/16/18 documented as of this encounter
--- OUTSIDE RECORDS SUMMARY | 2022-03-20 10:05 | XMS_ITS | Encounter Summary ---
:1990 Author Organization [facility] Address [address], [place] [address] Care Team Providers Name Role Phone Brisa Smith PA-C Primary Care Provider Encounter Details Date Type Department Care Team Description 03/07/2004 PN Conversion Only [place] CONVERSION Isidro Cheatham, [address] [place] [address] Social History Tobacco Use Types Packs/Day Years Used Date Smoking Tobacco: Never Assessed Sex Assigned at Date Recorded Not on file documented as of this encounter Plan of Treatment Not on filedocumented as of this encounter Procedures Procedure Name Priority Date/Time Associated Diagnosis Comme nts STREP GROUP A Routine 03/07/2004 5:08 PM Results for this ANTIGEN TEST TRANSITIONS MANAGER RN procedure are i n the results section. BETA STREP FOLLOWUP Routine 03/07/2004 5:08 PM Re sults for this TRANSITIONS MANAGER RN procedure are i n the results section. documented in this encounter Results Strep Group A Antigen Test (03/07/2004 5:08 PM TRANSITIONS MANAGER RN) Analysis Performed At Patho logist Time Signature Strep Group A Negative Negative HP CONVERSION Antigen Test Comment: Culture to follow. Specimen (Source) Anatomical Collection Method Collection Time Re ceived Time Location / / Volume Laterality 03/07/2004 5:08 PM TRANSITIONS MANAGER RN Isidro Cheatham MD LAB_1 Performing Organization Address City/State/ZIP Code Phon e Number HP CONVERSION Beta Strep Followup (03/07/2004 5:08 PM TRANSITIONS MANAGER RN) P athologist Signature Strep Screen SEE TEXT HP CONVERSION Comment: Patient: POSADAS, MINO J Rapid Strep Follow up Culture @ ? Collected: ??[id number] ??[id number] Source: Throat ?Processed: ??[id number] ??[id number] Final Report ------ ?[id number] ??[id number] No beta hemolytic Strep group A isolated . @ = Rapid F/U Cult Performed at ??[address] [place], [place] ?[address] Specimen (Source) Anatomical Collection Method Collection Time Re ceived Time Location / / Volume Laterality 03/07/2004 5:08 PM TRANSITIONS MANAGER RN Isidro Cheatham MD LAB_1 Performing Organization Address City/State/ZIP Code Phon e Number HP CONVERSION documented in this encounter Visit Diagnoses Not on filedocumented in this encounter Care Teams Entry Level Business Analyst Relationship Specialty Start Date End Date Brisa Smith PA-C PCP - General 07/30/10 04/18/15 [address] [place] [address] documented as of this encounter
--- OUTSIDE RECORDS SUMMARY | 2022-03-20 10:05 | XMS_ITS | Encounter Summary ---
:1990 Author Organization Counts include 234 beds at the [facility] Address [address] [place] [address] Care Team Providers Name Role Phone Brisa Smith PA-C Primary Care Provider Encounter Details Date Type Department Care Team Description 03/28/2004 PN Conversion Only [place] CONVERSION Mary Hernandes, [address] [place] [address] [address] [place] [address] (Wo rk) Social History Tobacco Use Types Packs/Day Years Used Date Smoking Tobacco: Never Assessed Sex Assigned at Date Recorded Not on file documented as of this encounter Plan of Treatment Not on filedocumented as of this encounter Visit Diagnoses Not on filedocumented in this encounter Care Teams Vending Machine Operator Relationship Specialty Start Date End Date Brisa Smith PA-C PCP - General 07/30/10 04/18/15 [address] [place], [place] [address] documented as of this encounter
--- OUTSIDE RECORDS SUMMARY | 2022-03-20 10:05 | XMS_ITS | Encounter Summary ---
:1990 Author Organization [facility] Address [address], [place] [address] Care Team Providers Name Role Phone Brisa Smith PA-C Primary Care Provider Encounter Details Date Type Department Care Team Description 10/12/2003 PN Conversion Only [place] CONVERSION Ralph, [address] BUILDINGS AND GROUNDS COORDINATOR, [place] [address] [address] [place] [address] (Wo rk) Social History Tobacco Use [...] Laterality 10/12/2003 3:20 PM CDT Lillian Rosas BUILDINGS AND GROUNDS COORDINATOR, AIR SHOVEL OPERATOR LAB_1 Performing Organization Address City/State/ZIP Code Phon e Number HP CONVERSION documented in this encounter Visit Diagnoses Not on filedocumented in this encounter Care Teams Frame Wirer Relationship Specialty Start Date End Date Gastony, Brisa M, PA-C PCP - General 07/30/10 04/18/15 [address] [place] [address] documented as of this encounter
--- OUTSIDE RECORDS SUMMARY | 2022-03-20 10:05 | XMS_ITS | Encounter Summary ---
:1990 Author Organization [facility] Address [address] [place] [address] Care Team Providers Name Role Phone Brisa Smith PA-C Primary Care Provider Encounter Details Date Type Department Care Team Description 03/07/2004 Office Visit [facility] Isidro Cheatham MD [facility] [place] [address] Social History Tobacco Use Types Packs/Day Years Used Date Smoking Tobacco: Never Assessed Sex Assigned at Date Recorded Not on file documented as of this encounter Progress Notes Isidro Cheatham - 03/07/2004 12:01 AM CST Progress Notes signed by Isidro Cheatham MD at 03/07/04 1705 Author: Isidro Cheatham MD Service: (none) Author Type: Physician Filed: 08/17/10 0228 Note Time: 03/07/04 0001 Status: Signed Enamel Applier: Isidro Cheatham MD (Physician) [facility] Acute Clinic Visit IMPRESSION: URI Chief Complaint: [...] filedocumented in this encounter Care Teams Head Tennis Professional Relationship Specialty Start Date End Date Brisa Smith PA-C PCP - General 07/30/10 04/18/15 [address] [place] [address] documented as of this encounter
--- OUTSIDE RECORDS SUMMARY | 2022-03-20 10:05 | XMS_ITS | Encounter Summary ---
:[address] [facility] Address [address] [place] [address] Care Team Providers Name Role Phone Brisa Smith PA-C Primary Care Provider Encounter Details Date Type Department Care Team Description 03/28/2004 Office Visit Ashkan Yan MD [facility] [employer] [address] [place] [address] [place] [address] [phone] (Wo rk) Social History Tobacco Use Types [...] 0251 Note Time: 03/28/04 0001 Status: Signed Violin Restorer: Ashkan Hernandes MD (Physician) NAME: MINO POSADAS MR: [id number] ACCT: [id number] VISIT: [id number] DICTATING CLINICIAN: ASHKAN HERNANDES MD JOB: [id number] CLINIC PROGRESS NOTE DATE OF VISIT: 03/28/2004 [...] in the future if she broke out. KJM:[id number] C: 03/29/04 11:01 DOCUMENT: [id number] D TECHNICIAN documented in this encounter Plan of Treatment Not on filedocumented as of this encounter Visit Diagnoses Not on filedocumented in this encounter Care Teams Debt Collector Relationship Specialty Start Date End Date Brisa Smith PA-C PCP - General 07/30/10 04/18/15 [address] [place] [address] documented as of this encounter
--- OUTSIDE RECORDS SUMMARY | 2022-03-20 10:06 | XMS_ITS | Encounter Summary ---
:1990 Author Organization [place] Address [address] [place] [address] Care Team Providers Name Role Phone No Ref-Primary, Physician Primary Care Provider [phone] Encounter Details Date Type Department Care Team Description 11/16/2018 Travel Social History Tobacco Use Types Packs/Day Years Used Date Smoking Tobacco: Never Assessed Sex Assigned at Date Recorded Not on file documented as of this encounter Plan of Treatment Not on filedocumented as of this encounter Visit Diagnoses Not on filedocumented in this encounter Care Teams Marketing Sales Representative Relationship Specialty Start Date End Date No Ref-Primary, Physician PCP - General 11/16/18 documented as of this encounter
--- OUTSIDE RECORDS SUMMARY | 2022-03-20 10:06 | XMS_ITS | Encounter Summary ---
:1990 Author Organization [place] Address [address] [place] [address] Care Team Providers Name Role Phone Unavailable [...] Procedure Name Priority Date/Time Associated Diagnosis Comme [facility] CHEST TWO VIEWS, STAT 12/28/2003 12:40 [...]
--- OUTSIDE RECORDS SUMMARY | 2022-03-20 10:06 | XMS_ITS | Encounter Summary ---
:1990 Author Organization [place] Address [address] [place] [address] Care Team Providers Name Role Phone No Ref-Primary, Physician Primary Care Provider [phone] Reason for Visit Reason Comments Abdominal Pain Encounter Details Date Type Department Care Team Description 11/16/2018 Emergency [employer] Torsten Madden MD Acute abdominal pain; [facility] Emergency Dep t [facility] Adverse reaction to antibiot ic [address] [place], [place] [address] [facility] [address] [place] [address] [place] [address] (Wo rk) Social History Tobacco [...] directed by your doctor today. Before using zaxq-srd-tvxujhl medications, ask your doctor and make sure [...] contain Tylenol?? (acetaminophen), including Vicodin??, Tylenol #3??, [place]??, Lortab??, and Percocet??. You should not take [...] be sent through Care Everywhere.Drug Reaction, Other ([place])documented in this encounter Medications at Time of [...] observations and the provider's statements to me. [facility] EMERGENCY DEPARTMENT Torsten Madden MD 11/16/18 [...] UA with Microscopic (11/16/2018 3:00 AM CDT) [facility] Method Time Signature Color Urine Straw 11/16/2018 [facility] 3:14 AM [facility] Appearance Urine Clear 11/16/2018 [facility] 3:14 AM [facility] Glucose Urine Negative NEG^Negat 11/16/2018 [facility] raisa mg/dL 3:14 AM [facility] Bilirubin Urine Negative NEG^Negat 11/16/2018 [facility] raisa 3:14 AM [facility] Ketones Urine Negative NEG^Negat 11/16/2018 [facility] raisa mg/dL 3:14 AM [facility] Specific Line [place] 1.004 1.003 - 11/16/2018 [facility] Urine 1.035 3:14 AM [facility] Blood Urine Negative NEG^Negat 11/16/2018 [facility] raisa 3:14 AM [facility] pH Urine 5.5 5.0 - 7.0 11/16/2018 [facility] pH 3:14 AM [facility] Protein Albumin Negative NEG^Negat 11/16/2018 [facility] Urine raisa mg/dL 3:14 AM [facility] Urobilinogen Normal 0.0 - 2.0 11/16/2018 [facility] mg/dL mg/dL 3:14 AM [facility] Nitrite Urine Negative NEG^Negat 11/16/2018 [facility] raisa 3:14 AM [facility] Leukocyte Negative NEG^Negat 11/16/2018 [facility] Esterase Urine raisa 3:14 AM [facility] Source Midstream 11/16/2018 [facility] Urine 3:01 AM [facility] WBC Urine 1 0 - 5 11/16/2018 [facility] /HPF 3:14 AM [facility] RBC Urine <1 0 - 2 11/16/2018 [facility] /HPF 3:14 AM [facility] Bacteria Urine Few (A) NEG^Negat 11/16/2018 [facility] raisa /HPF 3:14 AM [facility] Squamous <1 0 - 1 11/16/2018 [facility] Epithelial /HPF /HPF 3:14 AM [facility] Specimen (Source) Anatomical Collection Method Collection Time Re ceived Time Location / / Volume Laterality Examination of URINE SPECIMEN / 11/16/2018 3:00 2018 3:06 midstream urine Unknown AM CDT AM CDT specimen (procedure) Torsten Madden MD LAB - URINE ORDERABLES Performing Organization Address City/[facility]/ZIP [facility] Phon [place] Number M [facility] [address] [place], [place] [address] [facility] [address] [place] [address], [facility] [phone] HCG qualitative Blood (11/16/2018 2:16 AM CDT) [facility] Method Time Signature HCG Qualitative Negative NEG^Negati 11/16/2018 [place] Serum ve 2:47 AM [facility] Comment: This test is for screening purposes. ??R esults should be interpreted along with the clinical picture. ??Confirmation te sting is available if warranted by ordering [id number], HCG Quantitative Pregna ncy. Specimen Anatomical Collection Method Collection Time Receive d Time (Source) Location / / Volume Laterality Blood specimen 11/16/2018 2:16 AM 019 2:22 (specimen) CDT AM CDT Torsten Madden MD LAB - BLOOD ORDERABLES Performing Organization Address City/[facility]/ZIP [facility] [place] Phon [place] M [facility] [address] [place], [place] [address] [facility] [address] [place] [address] [phone] Lipase (11/16/2018 2:16 AM CDT) athologist Signature Lipase 76 73 - 393 11/16/2018 [facility] U/L 2:44 AM [facility] Specimen Anatomical Collection Method Collection Time Receive d Time (Source) Location / / Volume Laterality Blood specimen 11/16/2018 2:16 AM 019 2:22 (specimen) CDT AM CDT Torsten Madden MD LAB - BLOOD ORDERABLES Performing Organization Address City/State/ZIP Code Phon e Number M [facility] [address] [place], [place] [address] [facility] [address] [place], [place] [address] [phone] (ABNORMAL) Comprehensive metabolic panel (11/16/2018 2:16 AM CDT) athologist Signature Sodium 139 133 - 144 11/16/2018 [facility] mmol/L 2:36 AM [facility] Potassium 3.7 3.4 - 5.3 11/16/2018 [facility] mmol/L 2:36 AM [facility] Chloride 108 94 - 109 11/16/2018 [facility] mmol/L 2:36 AM [facility] Carbon Dioxide 25 20 - 32 11/16/2018 [facility] mmol/L 2:42 AM [facility] Anion Gap 6 3 - 14 11/16/2018 [facility] mmol/L 2:42 AM [facility] Glucose 100 (H) 70 - 99 11/16/2018 [facility] mg/dL 2:42 AM [facility] Urea Nitrogen 9 7 - 30 11/16/2018 [facility] mg/dL 2:42 AM [facility] Creatinine 0.88 0.52 - 11/16/2018 [facility] 1.04 mg/dL 2:42 AM [facility] GFR Estimate 89 >60 11/16/2018 [facility] mL/min/{1. 2:42 AM [facility] 73_m2} HOSPITAL Comment: Non GFR Calc Starting 04/14/2018, serum creatinine ba sed estimated GFR (eGFR) will be calculated using the Chronic Kidney Dise ase Epidemiology Collaboration (CKD-EPI) equation. GFR Estimate If >90 >60 mL/min/{1.73_m2} 11/16/2018 2: 42 AM [facility] Comment: GFR Calc Starting 04/14/2018, serum creatinine ba sed estimated GFR (eGFR) will be calculated using the Chronic Kidney Dise ase Epidemiology Collaboration (CKD-EPI) equation. Calcium 8.7 8.5 - 10.1 mg/dL 11/16/2018 2:42 AM [facility] Bilirubin Total 0.5 0.2 - 1.3 mg/dL 11/16/2018 2:[address] [facility] Albumin 4.3 3.4 - 5.0 g/dL 11/16/2018 2:44 AM [facility] Protein Total 7.6 6.8 - 8.8 g/dL 11/16/2018 2:44 AM [facility] Alkaline Phosphatase 57 40 - 150 U/L 11/16/2018 2:[address] [facility] ALT 17 0 - 50 U/L 11/16/2018 2:44 AM [facility] AST 12 0 - 45 U/L 11/16/2018 2:44 AM [facility] Specimen Anatomical Collection Method Collection Time Receive d Time (Source) Location / / Volume Laterality Blood specimen 11/16/2018 2:16 AM 019 2:22 (specimen) CDT AM CDT Torsten Madden MD LAB - BLOOD ORDERABLES Performing Organization Address City/State/ZIP Code Phon e Number M [place] [address] [address] [place] [address] [phone] CBC with platelets differential (11/16/2018 2:16 AM CDT) [facility] Method Time Signature WBC 6.2 4.0 - 11/16/2018 [facility] 11.0 2:25 AM [facility] 10e9/L [facility] RBC Count 4.94 3.8 - 5.2 11/16/2018 [place] 10e12/L 2:25 AM [facility] Hemoglobin 15.3 11.7 - 11/16/2018 [facility] 15.7 g/dL 2:25 AM [facility] Hematocrit 44.5 35.0 - 11/16/2018 [facility] 47.0 % 2:25 AM [facility] MCV 90 78 - 100 11/16/2018 [facility] fl 2:25 AM [facility] MCH 31.0 26.5 - 11/16/2018 [facility] 33.0 pg 2:25 AM [facility] MCHC 34.4 31.5 - 11/16/2018 [facility] 36.5 g/dL 2:25 AM [facility] RDW 11.8 10.0 - 11/16/2018 [facility] 15.0 % 2:25 AM [facility] Platelet Count 212 150 - 450 11/16/2018 [facility] 10e9/L 2:25 AM [facility] Diff Method Automated 11/16/2018 [facility] Method 2:25 AM [facility] % Neutrophils 46.3 % 11/16/2018 [facility] 2:25 AM [facility] % Lymphocytes 40.6 % 11/16/2018 [facility] 2:25 AM [facility] % Monocytes 8.4 % 11/16/2018 [facility] 2:25 AM [facility] % Eosinophils 3.9 % 11/16/2018 [facility] 2:25 AM [facility] % Basophils 0.6 % 11/16/2018 [facility] 2:25 AM [facility] % Immature 0.2 % 11/16/2018 [facility] Granulocytes 2:25 AM [facility] Nucleated RBCs 0 0 /100 11/16/2018 [facility] 2:25 AM [facility] Absolute 2.9 1.6 - 8.3 11/16/2018 [facility] Neutrophil 10e9/L 2:25 AM [facility] Absolute 2.5 0.8 - 5.3 11/16/2018 [facility] Lymphocytes 10e9/L 2:25 AM [facility] Absolute 0.5 0.0 - 1.3 11/16/2018 [facility] Monocytes 10e9/L 2:25 AM [facility] Absolute 0.2 0.0 - 0.7 11/16/2018 [facility] Eosinophils 10e9/L 2:25 AM [facility] Absolute 0.0 0.0 - 0.2 11/16/2018 [facility] Basophils 10e9/L 2:25 AM [facility] Abs Immature 0.0 0 - 0.4 11/16/2018 [facility] Granulocytes 10e9/L 2:25 AM [facility] Absolute 0.0 11/16/2018 [place] Nucleated RBC 2:25 AM [facility] Specimen Anatomical Collection Method Collection Time Receive d Time (Source) Location / / Volume Laterality Blood specimen 11/16/2018 2:16 AM 019 2:22 (specimen) CDT AM CDT Torsten Madden MD LAB - BLOOD ORDERABLES Performing Organization Address City/State/ZIP Code Phon e Number M [place] [address] [facility] [address] [phone] documented in this encounter Visit Diagnoses Diagnosis [...] minutes. documented in this encounter Care Teams Coil Repair Technician Relationship Specialty Start Date End Date No Ref-Primary, Physician PCP - General 11/16/18 documented as of this encounter
--- OUTSIDE RECORDS SUMMARY | 2022-03-20 10:06 | XMS_ITS | Encounter Summary ---
:1990 Author Organization [place] Address [address] [place] [address] Care Team Providers Name Role Phone Unavailable [...] No unusual pets. No travel to the [facility] [place]. No unusual molds in the house. No [...] concern. [id number]_ RANJITH DIAZ MD [place]: Document: [id number] [place], [place] Name: MINO POSADAS EMERGENCY ROOM ENCOUNTER Page 2 of 2 LCN: ERC DSC: 12/27/2003 [place], [place] Name: MR#: : Admit Date: MINO POSADAS -32 1990 12/27/2003 Doctor: RANJITH DIAZ MD EMERGENCY ROOM ENCOUNTER Page 1 of 2 documented in this encounter Plan of Treatment Not on filedocumented as of this encounter Visit Diagnoses Not on filedocumented in this encounter
--- OUTSIDE RECORDS SUMMARY | 2022-03-20 10:06 | XMS_ITS | Encounter Summary ---
:1990 Author Organization [place] Address [address] [place] [address] Care Team Providers Name Role Phone Unavailable Primary Care Provider Unavailable Encounter Details Date Type Department Care Team Description 10/19/2003 Emergency room Daria Cavanaugh MD EMERGENCY PHYSIC [address] [place], [place] [address] (Wo rk) Social History [...] [id number] _ DARIA CAVANAUGH MD [place]: Document: [id number] [place], [place] Name: MINO POSADAS EMERGENCY ROOM ENCOUNTER Page 2 of 2 LCN: SILVIA DSC: 10/19/2003 [place], [place] Name: MR#: : Admit Date: MINO POSADAS -33 1990 10/19/2003 Doctor: DARIA CAVANAUGH MD EMERGENCY ROOM ENCOUNTER Page 1 of 2 documented in this encounter Plan of Treatment Not on filedocumented as of this encounter Visit Diagnoses Not on filedocumented in this encounter
--- OUTSIDE RECORDS SUMMARY | 2022-03-20 10:06 | XMS_ITS | Encounter Summary ---
:1990 Author Organization [place] Address [facility] [place] [address] Care Team Providers Name Role Phone No Ref-Primary, Physician Primary Care Provider [phone] Reason for Referral Diagnostic Imaging Ultrasound (Routine) - Pending Review Specialty Diagnoses / Procedures Referred By Contact Refer red To Contact Diagnoses resulting from in vitro fertilization in second trimester Juan Luis Chirinos MD Procedures MFM Read Screen Echo Single [address] [place], [place] [address] Referral ID Status Reason Start Date Expiration Date Visits V isits Requested Authorized [id number] Pending 11/20/2021 11/20/2022 1 1 Review Reason for Visit Reason Comments Ultrasound L2- IVF Encounter Details Date Type Department Care Team Description 11/20/2021 Office Visit [facility] Spencer Villagomez [address] [place], [place] [id number] resulting Maternal Juan Luis Chirinos MD [address] [place] [address] from in vitro Medicine Center fertilizatio n in second [place] trimester (Primary Dx) [address] [facility] [address] [place] [address] Social History Tobacco Use Types [...] for details of today's US at the [facility]. Juan Luis Chirinos MD Maternal- Medicine documented in this encounter Plan of Treatment Not on filedocumented as of this encounter Results [facility] Read Screen Echo Single (12/18/2021 10:02 [...] Study Date: 0 12/18/2021 9:18am Pat. NO: [id number] Referring ??MD: SPENCER VILLAGOMEZ Site: [facility] Desktop Support Associate: Nancie Bailey RD MS : 1990 Age: 31 INDICATION In vitro fertilization METHOD Grayscale imaging, Doppler echocardiogra phy color flow velocity mapping and Doppler echocardiography pulsed wave and or wave with spectral display were used to assess cardiac structures for wilner goode [facility] echocardiogram. View: Sufficient Tubbs . Number [...] RVOT view ?normal 3-vessel view ? normal 3-gttnzg-iyslrzk view ? normal High short axis view [...] Pat. Name:Geovanni KELLY Date:11/27 9:18am Pat. NO: [id number] MD:JULY ERA NESS [facility]Nancie Bailey RDMS :1990Age:31 INDICATION In vitro fertilization METHOD Grayscale imaging, Doppler echocardiogra phy color flow velocity mapping and Doppler echocardiography pulsed wave and or wave with spectral display were used to assess cardiac structures for wilner goode [facility] echocardiogram. View: Sufficient Tubbs . Number [...] normal RVOT view normal 3-vessel view normal 7-bmnubq-cspleop view normal High short axis view normal [...] of the aorta. Juan Luis Chirinos MD [facility] ORDERABLES documented in this encounter Visit Diagnoses Diagnosis resulting from in vitro fertil ization in second trimester - Primary resulting from in vitro fertil ization in second trimester documented in this encounter Care Teams Strip Mine Supervisor Relationship Specialty Start Date End Date No Ref-Primary, Physician PCP - General 11/16/18 documented as of this encounter
--- OUTSIDE RECORDS SUMMARY | 2022-03-20 10:06 | XMS_ITS | Encounter Summary ---
:1990 Author Organization [place] Address [address] [facility] [place] [address] Care Team Providers Name Role Phone No Ref-Primary, Physician Primary Care Provider [phone] Reason for Referral Diagnostic Imaging Ultrasound (Routine) - Pending Review Specialty Diagnoses / Procedures Referred By Contact Refer red To Contact Diagnoses related condition, antepartum Fit, July Procedures [place] [address] [place] [address] Referral ID Status Reason Start Date Expiration Date Visits V isits Requested Authorized [id number] Pending 11/01/2021 11/01/2022 1 1 Review Reason for Visit Diagnostic Imaging Ultrasound (Routine) - Pending Review Specialty Diagnoses / Procedures Referred By Contact Refer red To Contact Diagnoses related condition, antepartum July Procedures [place] [address] [place] [address] Referral ID Status Reason Start Date Expiration Date Visits V isits Requested Authorized [id number] Pending 11/01/2021 11/01/2022 1 1 Review Encounter Details Date Type Department Care Team Description 11/20/2021 Hospital Encounter [facility] Leena Villagomez [place] [id number] [place] [id number] related Maternal Juan Luis Chirinos MD [address] [place] [address] [address] [place], [place] [address] condition, Medicine Center antepartum [place] [address] [facility] [address] [place] [address] Social History Tobacco Use Types [...] Date/Time Associated Comments Diagnosis [facility] US COMPREHENSIVE Routine 11/20/2021 11:00 relate d Results for this SINGLE AM CDT condition, procedure are i n antepartum the results section. documented in this encounter Results [facility] US Comprehensive Single (11/20/2021 11:00 AM [...] KELLY Study Date: 11/20/2021 10:05am Pat. NO: [id number] Referring ??MD: SPENCER VILLAGOMEZ Site: [facility] Track Manager: Anitha Love RDMS : 1990 Age: 31 [...] lb 10 ? oz EFW by ?Hadlock (LDY-QL-RI-FL) Head / Face / Neck Biometry: Bone Grinder ? 5.8 ? mm CM ?5.0 ? [...] cava. Inferior vena cava. 3-vessel ? view. 6-ojujip-ofdycza view. Cardiac position. Cardiac size. Cardiac rhythm. [...] patient to return to [facility] in 4 weeks for a echo [...] Pat. Name:Geovanni KELLY Date:10/27 10:05am Pat. NO: [id number] MD:BETSY ERA NESS [facility]NICK Sheriff :1990Age:31 INDICATION In Vitro [...] 0 lb 10 oz EFW by Hadlock (CSI-OF-FF-FL) Head / Face / Neck Biometry: Bone Grinder 5.8 mm CM 5.0 mm Nasal bone [...] vena cava. Inferior vena cava. 3-vessel view. 4-aldkvw-vnskteo view. Cardiac po sition. Cardiac size. Cardiac [...] patient to return to [facility] in 4 weeks for a echo [...] No markers for aneuploidy seen. July Benny [facility] US ORDERABLES documented in this encounter Visit Diagnoses Diagnosis related condition, antepartum documented in this encounter Care Teams Seamer Relationship Specialty Start Date End Date No Ref-Primary, Physician PCP - General 11/16/18 documented as of this encounter
--- OUTSIDE RECORDS SUMMARY | 2022-03-20 10:06 | XMS_ITS | Encounter Summary ---
:1990 Author Organization [place] Address [address] [place] [address] Care Team Providers Name Role Phone No Ref-Primary, Physician Primary Care Provider [phone] Reason for Referral Diagnostic Imaging Ultrasound (Routine) - Pending Review Specialty Diagnoses / Procedures Referred By Contact Refer red To Contact Diagnoses related condition, antepartum , July Procedures [facility] MEDICAL [address] [address] Referral ID Status Reason Start Date Expiration Date Visits V isits Requested Authorized [id number] Pending 11/01/2021 11/01/2022 1 1 Review onsultation (Routine: Next available opening) - Pending Review Specialty Diagnoses / Procedures Referred By Contact Refer red To Contact Diagnoses related condition, antepartum July Rh Maternal Med [facility] [address] [facility] [address] [address] [place] [address] Phone: Fax: Referral ID Status Reason Start Date Expiration Date Visits V isits Requested Authorized [id number] Pending 11/01/2021 11/01/2022 1 1 Review Encounter Details Date Type Department Care Team Description 11/01/2021 [facility] condition, [facility] MEDICAL antepartum (Primary [address] [address] Q[place]ONES Dx) [address] [place], [place] [address] [address] [place], [place] [phone] [address] (Work) [phone] Social History Tobacco Use Types Packs/Day Years [...] 04/30/2022 documented as of this encounter Results [facility] US Comprehensive Single (11/20/2021 11:00 AM [...] KELLY Study Date: 11/20/2021 10:05am Pat. NO: [id number] Referring ??MD: SPENCER VILLAGOMEZ Site: [facility] Technical Buyer: Anitha Love RDMS : 1990 Age: 31 [...] lb 10 ? oz EFW by ?Hadlock (OMX-CL-PG-FL) Head / Face / Neck Biometry: Wallcovering Hanger ? 5.8 ? mm CM ?5.0 ? [...] cava. Inferior vena cava. 3-vessel ? view. 5-bcaesv-xvtlmgl view. Cardiac position. Cardiac size. Cardiac rhythm. [...] have scheduled the patient to return to [facility] in 4 weeks for a echo [...] Esperanza. Name:Geovanni KELLY Date:10/27 10:05am Pat. NO: [id number] MD:BETSY NESS [facility]NICK Sheriff :1990Age:31 INDICATION In Vitro Fertilization METHOD [...] 0 lb 10 oz EFW by Hadlock (PYC-AZ-BI-FL) Head / Face / Neck Biometry: Wallcovering Hanger 5.8 mm CM 5.0 mm Nasal bone [...] vena cava. Inferior vena cava. 3-vessel view. 3-dzgxct-kzmfojn view. Cardiac po sition. Cardiac size. Cardiac [...] have scheduled the patient to return to [facility] in 4 weeks for a echo [...] July Benny [facility] US ORDERABLES documented in this encounter Visit Diagnoses Diagnosis related condition, antepartum - Primary related condition, antepartum documented in this encounter Care Teams Edge Sander Relationship Specialty Start Date End Date No Ref-Primary, Physician PCP - General 11/16/18 documented as of this encounter
--- OUTSIDE RECORDS SUMMARY | 2022-03-20 10:06 | XMS_ITS | Encounter Summary ---
:1990 Author Organization [place] Address [address] [place] [address]. [place] [address] Care Team Providers Name Role Phone No Ref-Primary, Physician Primary Care Provider [phone] Encounter Details Date Type Department Care Team Description 10/22/2021 Medical Correspondence [facility] Scan, REFERRAL Health Info [facility] Non-Provider [facility] Srvcs AND CLINICS [address] [place] [address] Social History Tobacco Use Types Packs/Day Years Used Date Smoking Tobacco: Never Assessed Sex Assigned at Date Recorded Not on file documented as of this encounter Plan of Treatment Not on filedocumented as of this encounter Visit Diagnoses Not on filedocumented in this encounter Care Teams Metallurgy Laboratory Technician Relationship Specialty Start Date End Date No Ref-Primary, Physician PCP - General 11/16/18 documented as of this encounter
--- OUTSIDE RECORDS SUMMARY | 2022-03-20 10:06 | XMS_ITS | Encounter Summary ---
:1990 Author Organization [place] Address [address] [place] [address] Care Team Providers Name Role Phone Unavailable [...] 12-year-old female who yesterday collided with another hand sole sewer and now complains of decreased sensation in [...] [id number] _ ANGELES HEARD MD MT: Document: [id number] [place], [place] Name: MINO POSADAS EMERGENCY ROOM ENCOUNTER Page 2 of 2 LCN: IGNACIA DSC: 08/14/2003 [place], [place] Name: MR#: : Admit Date: MINO POSADAS [id number] 1990 08/14/2004 Doctor: ANGELES HEARD MD EMERGENCY ROOM ENCOUNTER Page 1 of 2 documented in this encounter Plan of Treatment Not on filedocumented as of this encounter Visit Diagnoses Not on filedocumented in this encounter
--- OUTSIDE RECORDS SUMMARY | 2022-03-20 10:06 | XMS_ITS | Encounter Summary ---
:1990 Author Organization [place] Address [address] [place] [address]. [place] [address] Care Team Providers Name Role Phone No Ref-Primary, Physician Primary Care Provider [phone] Encounter Details Date Type Department Care Team Description 10/25/2021 Medical Correspondence [facility] Scan, Provide r MATERNAL Health Info [facility] MEDICINE CE NTER Srvcs PROVIDER SERVICE [address] [place] [address] REQUEST- OUTPATIENT [facility] [address] [place] [phone] Social History Tobacco Use Types Packs/Day Years Used Date Smoking Tobacco: Never Assessed Sex Assigned at Date Recorded Not on file documented as of this encounter Plan of Treatment Not on filedocumented as of this encounter Visit Diagnoses Not on filedocumented in this encounter Care Teams Cabin Furnishings Installer Relationship Specialty Start Date End Date No Ref-Primary, Physician PCP - General 11/16/18 documented as of this encounter
--- OUTSIDE RECORDS SUMMARY | 2022-03-20 10:06 | XMS_ITS | Encounter Summary ---
:1990 Author Organization [place] Address [address] [place] [address] Care Team Providers Name Role Phone No Ref-Primary, Physician Primary Care Provider [phone] Reason for Visit Reason Comments Ultrasound L2- IVF Encounter Details Date Type Department Care Team Description 11/13/2021 PRE VISIT [facility] Argenis Baron, Itzel asound (L2- IVF) Maternal Medicine [facility] [address] [facility] [address] [place] [address] Social History Tobacco Use Types Packs/Day Years Used Date Smoking Tobacco: Never Assessed Sex Assigned at Date Recorded Not on file documented as of this encounter Plan of Treatment Not on filedocumented as of this encounter Visit Diagnoses Not on filedocumented in this encounter Care Teams Rack Puncher Relationship Specialty Start Date End Date No Ref-Primary, Physician PCP - General 11/16/18 documented as of this encounter
[2022-03-20 14:38] LABS: Hepatitis C Virus Antibody* Negative (Negative)
[2022-03-21 13:56] LABS: Strep B DNA Probe NEGATIVE (Negative)
[2022-03-21 14:45] LABS: Strep B Pen/Amox Allergy No
== END 2022-03-20 10:00 | disposition home or self-care (01) ==
PROVIDERS: Visit Provider Advanced Practice Midwife
DX: Z34.93 Encounter for supervision of normal pregnancy, unspecified, third trimester (principal); Z3A.35 35 weeks gestation of pregnancy
CPT/HCPCS: 86803; 87081; 87653

== ENCOUNTER 2022-03-28 12:50 | Outpatient (CLI) | payer OTHER, SELFPAY ==
--- NOTE | 2022-03-28 13:00 | CRLHL7_ITS ---
For Patients: As a result of the Century Cures Act, medical imaging exams and procedure reports are released immediately into your electronic medical record. You may view this report before your referring provider. If you have questions, please contact your health care provider. INDICATION: IVF COMPARISON: none TECHNIQUE: Real time castaneda scale imaging of the fetus was performed. Without non-stress testing. FINDINGS: Sonographic imaging demonstrates a single living intrauterine gestation. Fetus demonstrates a regular cardiac rate of 128 beats per minute. Fetus has a vertex position. The amniotic fluid volume appears normal and there is a single deepest pocket measurement of 4.4 cm. The fetus was active and demonstrated normal breathing movements. There was normal flexion and extension of the trunk and extremities. IMPRESSION: Normal biophysical profile score of 8 out of 8. Dictated by Isidro Fox MD @ 03/28/2022 3:31:27 PM (Electronically Signed)
--- OUTSIDE RECORDS SUMMARY | 2022-03-28 13:27 | XMS_ITS | Encounter Summary ---
:1990 Author Organization [place] Address [address] [place] [address]. [place] [address] Care Team Providers Name Role Phone No Ref-Primary, Physician Primary Care Provider [phone] Encounter Details Date Type Department Care Team Description 10/25/2021 Medical Correspondence [facility] Scan, Provide r MATERNAL Health Info [facility] MEDICINE CE NTER Srvcs PROVIDER SERVICE [address] [place] [address] REQUEST- OUTPATIENT [facility] [address] [place] [phone] Social History Tobacco Use Types Packs/Day Years Used Date Smoking Tobacco: Never Assessed Sex Assigned at Date Recorded Not on file documented as of this encounter Plan of Treatment Not on filedocumented as of this encounter Visit Diagnoses Not on filedocumented in this encounter Care Teams Crowning Inspector Relationship Specialty Start Date End Date No Ref-Primary, Physician PCP - General 11/16/18 documented as of this encounter
--- OUTSIDE RECORDS SUMMARY | 2022-03-28 13:27 | XMS_ITS | Encounter Summary ---
:1990 Author Organization [place] Address [address] [facility] [place] [address] Care Team Providers Name Role Phone No Ref-Primary, Physician Primary Care Provider [phone] Reason for Referral Diagnostic Imaging Ultrasound (Routine) - Pending Review Specialty Diagnoses / Procedures Referred By Contact Refer red To Contact Diagnoses related condition, antepartum Fit, July Procedures [place] [address] [place] [address] Referral ID Status Reason Start Date Expiration Date Visits V isits Requested Authorized [id number] Pending 11/01/2021 11/01/2022 1 1 Review Reason for Visit Diagnostic Imaging Ultrasound (Routine) - Pending Review Specialty Diagnoses / Procedures Referred By Contact Refer red To Contact Diagnoses related condition, antepartum July Procedures [place] [address] [place] [address] Referral ID Status Reason Start Date Expiration Date Visits V isits Requested Authorized [id number] Pending 11/01/2021 11/01/2022 1 1 Review Encounter Details Date Type Department Care Team Description 11/20/2021 Hospital Encounter [facility] Leena Villagomez [place] [id number] [place] [id number] related Maternal Juan Luis Chirinos MD [address] [place] [address] [address] [place], [place] [address] condition, Medicine Center antepartum [place] [address] [facility] [address] [place] [address] Social History Tobacco Use Types [...] Procedure Name Priority Date/Time Associated Comments Diagnosis [facility] US COMPREHENSIVE Routine 11/20/2021 11:00 relate d Results for this SINGLE AM CDT condition, procedure are i n antepartum the results section. documented in this encounter Results [facility] US Comprehensive Single (11/20/2021 11:00 AM [...] KELLY Study Date: 11/20/2021 10:05am Pat. NO: [id number] Referring ??MD: SPENCER VILLAGOMEZ Site: [facility] Microsoft Office Instructor: Anitha Love RDMS : 1990 Age: 31 [...] lb 10 ? oz EFW by ?Hadlock (NTE-PW-SP-FL) Head / Face / Neck Biometry: Freight Receiver ? 5.8 ? mm CM ?5.0 ? [...] cava. Inferior vena cava. 3-vessel ? view. 1-ojljdz-iuslshw view. Cardiac position. Cardiac size. Cardiac rhythm. [...] have scheduled the patient to return to [facility] in 4 weeks for a echo [...] Pat. Name:Geovanni KELLY Date:10/27 10:05am Pat. NO: [id number] MD:BETSY ERA NESS [facility]NICK Sheriff :1990Age:31 INDICATION In Vitro Fertilization METHOD [...] 0 lb 10 oz EFW by Hadlock (VED-RM-BP-FL) Head / Face / Neck Biometry: Freight Receiver 5.8 mm CM 5.0 mm Nasal bone [...] vena cava. Inferior vena cava. 3-vessel view. 6-oosueq-wzrbrdh view. Cardiac po sition. Cardiac size. Cardiac [...] have scheduled the patient to return to [facility] in 4 weeks for a echo [...] No markers for aneuploidy seen. July Benny [facility] US ORDERABLES documented in this encounter Visit Diagnoses Diagnosis related condition, antepartum documented in this encounter Care Teams School Psychologist Relationship Specialty Start Date End Date No Ref-Primary, Physician PCP - General 11/16/18 documented as of this encounter
--- OUTSIDE RECORDS SUMMARY | 2022-03-28 13:27 | XMS_ITS | Encounter Summary ---
:1990 Author Organization [place] Address [address] [place] [address] Care Team Providers Name Role Phone No Ref-Primary, Physician Primary Care Provider [phone] Reason for Visit Reason Comments Ultrasound L2- IVF Encounter Details Date Type Department Care Team Description 11/13/2021 PRE VISIT [facility] Argenis Baron, Itzel asound (L2- IVF) Maternal Medicine [facility] [address] [facility] [address] [place] [address] Social History Tobacco Use Types Packs/Day Years Used Date Smoking Tobacco: Never Assessed Sex Assigned at Date Recorded Not on file documented as of this encounter Plan of Treatment Not on filedocumented as of this encounter Visit Diagnoses Not on filedocumented in this encounter Care Teams Customer Account Technician Relationship Specialty Start Date End Date No Ref-Primary, Physician PCP - General 11/16/18 documented as of this encounter
--- OUTSIDE RECORDS SUMMARY | 2022-03-28 13:27 | XMS_ITS | Encounter Summary ---
:1990 Author Organization [place] Address [address] [place] [address] Care Team Providers Name Role Phone No [...] on filedocumented in this encounter Care Teams Reeler Operator Relationship Specialty Start Date End Date No Ref-Primary, Physician PCP - General 11/16/18 documented as of this encounter
--- OUTSIDE RECORDS SUMMARY | 2022-03-28 13:27 | XMS_ITS | Encounter Summary ---
:1990 Author Organization [place] Address [facility] [place] [address] Care Team Providers Name Role Phone No Ref-Primary, Physician Primary Care Provider Reason for Referral Diagnostic Imaging Ultrasound (Routine) - Pending Review Specialty Diagnoses / Procedures Referred By Contact Refer red To Contact Diagnoses resulting from in vitro fertilization in second trimester Juan Luis Chirinos MD Procedures MFM Read Screen Echo Single [address] [place], [place] [address] Referral ID Status Reason Start Date Expiration Date Visits V isits Requested Authorized [id number] Pending 11/20/2021 11/20/2022 1 1 Review Reason for Visit Reason Comments Ultrasound L2- IVF Encounter Details Date Type Department Care Team Description 11/20/2021 Office Visit [facility] Spencer Villagomez [address] [place], [place] [id number] resulting Maternal Juan Luis Chirinos MD [address] [place] [address] from in vitro Medicine Center fertilizatio n in second [place] trimester (Primary Dx) [address] [facility] [address] [place] [address] Social History Tobacco Use Types [...] for details of today's US at the [facility]. Juan Luis Chirinos MD Maternal- Medicine documented in this encounter Plan of Treatment Not on filedocumented as of this encounter Results [facility] Read Screen Echo Single (12/18/2021 10:02 [...] Study Date: 0 12/18/2021 9:18am Pat. NO: [id number] Referring ??MD: SPENCER VILLAGOMEZ Site: [facility] Foam Fabricator: Nancie Bailey RD MS : 1990 Age: 31 INDICATION In vitro fertilization METHOD Grayscale imaging, Doppler echocardiogra phy color flow velocity mapping and Doppler echocardiography pulsed wave and or wave with spectral display were used to assess cardiac structures for wilner goode [facility] echocardiogram. View: Sufficient Tubbs . Number [...] RVOT view ?normal 3-vessel view ? normal 9-iopptb-eshibbc view ? normal High short axis view [...] Pat. Name:Geovanni KELLY Date:11/27 9:18am Pat. NO: [id number] MD:JULY ERA NESS [facility]Nancie Bailey RDMS :1990Age:31 INDICATION In vitro fertilization METHOD Grayscale imaging, Doppler echocardiogra phy color flow velocity mapping and Doppler echocardiography pulsed wave and or wave with spectral display were used to assess cardiac structures for wilner goode [facility] echocardiogram. View: Sufficient Tubbs . Number [...] normal RVOT view normal 3-vessel view normal 4-ufjxwz-bpeawol view normal High short axis view normal [...] aorta. Juan Luis Chirinos MD [facility] ORDERABLES documented in this encounter Visit Diagnoses Diagnosis resulting from in vitro fertil ization in second trimester - Primary resulting from in vitro fertil ization in second trimester documented in this encounter Care Teams Rivet Maker Relationship Specialty Start Date End Date No Ref-Primary, Physician PCP - General 11/16/18 documented as of this encounter
--- OUTSIDE RECORDS SUMMARY | 2022-03-28 13:27 | XMS_ITS | Encounter Summary ---
:1990 Author Organization [place] Address [address] [place] [address] Care Team Providers Name Role Phone No Ref-Primary, Physician Primary Care Provider [phone] Encounter Details Date Type Department Care Team [...] on filedocumented in this encounter Care Teams Plaster Applicator Relationship Specialty Start Date End Date No Ref-Primary, Physician PCP - General 11/16/18 documented as of this encounter
--- OUTSIDE RECORDS SUMMARY | 2022-03-28 13:27 | XMS_ITS | Encounter Summary ---
:1990 Author Organization [place] Address [facility] [place] [address] Care Team Providers Name Role Phone No Ref-Primary, Physician Primary Care Provider Reason for Referral Diagnostic Imaging Ultrasound (Routine) - Pending Review Specialty Diagnoses / Procedures Referred By Contact Refer red To Contact Diagnoses resulting from in vitro fertilization in second trimester Juan Luis Chirinos MD Procedures MFM Read Screen Echo Single [address] [place], [place] [address] Referral ID Status Reason Start Date Expiration Date Visits V isits Requested Authorized [id number] Pending 11/20/2021 11/20/2022 1 1 Review Reason for Visit Diagnostic Imaging Ultrasound (Routine) - Pending Review Specialty Diagnoses / Procedures Referred By Contact Refer red To Contact Diagnoses resulting from in vitro fertilization in second trimester Juan Luis Chirinos MD Procedures MFM Read Screen Echo Single [address] [place], [place] [address] Referral ID Status Reason Start Date Expiration Date Visits V isits Requested Authorized [id number] Pending 11/20/2021 11/20/2022 1 1 Review Encounter Details Date Type Department Care Team Description 12/18/2021 Hospital Encounter [facility] Juan Luis Robins Pre gnancy resulting Maternal MD Nader from in vitro Medicine Center [address] fertilizat ion in [place] [address] second trimester [address] [place], [place] [address] [address] [place], [place] [phone] [address] (Vrff) [phone] Social History Tobacco Use Types Packs/Day Years [...] Name Priority Date/Time Associated Diagnosis Comme nts [facility] READ SCREENING Routine 12/18/2021 10:02 resultin [...] SIGALA Study Date: 12/18/2021 9:18am Pat. NO: [id number] Referring ??MD: SPENCER VILLAGOMEZ Site: [facility] Ammunition Supervisor: Nancie Bailey RD MS : 1990 Age: 31 INDICATION In vitro fertilization METHOD Grayscale imaging, Doppler echocardiogra phy color flow velocity mapping and Doppler echocardiography pulsed wave and or wave with spectral display were used to assess cardiac structures for wilner goode [facility] echocardiogram. View: Sufficient Peng . Number [...] RVOT view ?normal 3-vessel view ? normal 6-esdsax-ktvtlvv view ? normal High short axis view [...] Pat. Name:Geovanni SIGALA Date:11/27 9:18am Pat. NO: [id number] MD:DYLAN NESS [facility]Nancie Bailey RDMS :1990Age:31 INDICATION In vitro fertilization METHOD Grayscale imaging, Doppler echocardiogra phy color flow velocity mapping and Doppler echocardiography pulsed wave and or wave with spectral display were used to assess cardiac structures for wilner goode [facility] echocardiogram. View: Sufficient Peng . Number [...] normal RVOT view normal 3-vessel view normal 9-njpkov-lnovgbj view normal High short axis view normal [...] of the aorta. Juan Luis Chirinos MD [facility] ORDERABLES documented in this encounter Visit Diagnoses Diagnosis resulting from in vitro fertil ization in second trimester documented in this encounter Care Teams Vibratory Pile Driver Relationship Specialty Start Date End Date No Ref-Primary, Physician PCP - General 11/16/18 documented as of this encounter
--- OUTSIDE RECORDS SUMMARY | 2022-03-28 13:27 | XMS_ITS | Encounter Summary ---
:1990 Author Organization [place] Address [address] [place] [address] Care Team Providers Name Role Phone No Ref-Primary, Physician Primary Care Provider [phone] Reason for Referral Diagnostic Imaging Ultrasound (Routine) - Pending Review Specialty Diagnoses / Procedures Referred By Contact Refer red To Contact Diagnoses related condition, antepartum , July Procedures [facility] MEDICAL [address] [address] Referral ID Status Reason Start Date Expiration Date Visits V isits Requested Authorized [id number] Pending 11/01/2021 11/01/2022 1 1 Review onsultation (Routine: Next available opening) - Pending Review Specialty Diagnoses / Procedures Referred By Contact Refer red To Contact Diagnoses related condition, antepartum July Rh Maternal Med [facility] MEDICAL [address] [facility] [address] [address] [place] [address] Phone: Fax: Referral ID Status Reason Start Date Expiration Date Visits V isits Requested Authorized [id number] Pending 11/01/2021 11/01/2022 1 1 Review Encounter Details Date Type Department Care Team Description 11/01/2021 [facility] condition, [facility] MEDICAL antepartum (Primary [place] [address] Dx) [address] [place], [place] [address] [address] [place], [place] [phone] [address] (Work) [phone] Social History Tobacco Use Types Packs/Day Years [...] 04/30/2022 documented as of this encounter Results [facility] US Comprehensive Single (11/20/2021 11:00 AM [...] KELLY Study Date: 11/20/2021 10:05am Pat. NO: [id number] Referring ??MD: SPENCER VILLAGOMEZ Site: [facility] Tower Technician: Anitha Love RDMS : 1990 Age: [...] lb 10 ? oz EFW by ?Hadlock (TKT-AT-SF-FL) Head / Face / Neck Biometry: Sample Processor ? 5.8 ? mm CM ?5.0 ? [...] cava. Inferior vena cava. 3-vessel ? view. 4-wprojp-gbvupsv view. Cardiac position. Cardiac size. Cardiac rhythm. [...] have scheduled the patient to return to [facility] in 4 weeks for a echo [...] Esperanza. Name:Geovanni KELLY Date:10/27 10:05am Pat. NO: [id number] MD:BETSY NESS [facility] Sheriff :1990Age:31 INDICATION In Vitro [...] 0 lb 10 oz EFW by Hadlock (OYI-CE-MC-FL) Head / Face / Neck Biometry: Sample Processor 5.8 mm CM 5.0 mm Nasal bone [...] vena cava. Inferior vena cava. 3-vessel view. 6-dhmsyd-ykigxdh view. Cardiac po sition. Cardiac size. Cardiac [...] have scheduled the patient to return to [facility] in 4 weeks for a echo [...] No markers for aneuploidy seen. July Benny [facility] US ORDERABLES documented in this encounter Visit Diagnoses Diagnosis related condition, antepartum - Primary related condition, antepartum documented in this encounter Care Teams Log Truck Driver Relationship Specialty Start Date End Date No Ref-Primary, Physician PCP - General 11/16/18 documented as of this encounter
--- OUTSIDE RECORDS SUMMARY | 2022-03-28 13:27 | XMS_ITS | Encounter Summary ---
:1990 Author Organization [place] Address [address] [facility] [place] [address] Care Team Providers Name Role Phone No Ref-Primary, Physician Primary Care Provider [phone] Reason for Visit Reason Comments Ultrasound echo-IVF Encounter Details Date Type Department Care Team Description 12/18/2021 Office Visit [facility] Juan Luis Chirinos resulting Maternal MD Nader from in vitro Medicine Center [address] fertilizat ion in second [facility] 400 trimester (Primary Dx) [address] [place], [place] [address] [address] [place], [place] [phone] [address] (Work) [phone] Social History Tobacco Use Types Packs/Day Years [...] for details of today's US at the [facility]. Juan Luis Chirinos MD Maternal- Medicine documented in this encounter Plan of Treatment Not on filedocumented as of this encounter Visit Diagnoses Diagnosis resulting from in vitro fertil ization in second trimester - Primary documented in this encounter Care Teams Employment Case Manager Relationship Specialty Start Date End Date No Ref-Primary, Physician PCP - General 11/16/18 documented as of this encounter
--- OUTSIDE RECORDS SUMMARY | 2022-03-28 13:27 | XMS_ITS ---
[...] for solution Active ? Not available Inject 25293 units as needed by intramuscular route. clomiphene [...] av ailable Notes: Normal 04/28/2011 Extraction of [place] Tooth Information n ot available 04/28/1998 Tonsilectomy/adenoids Information not av ailable 08/01/2020 US, Transvaginal Oy401_denqsqhrr_ghcm a [address] [place] [address] (Work Place) 08/10/2020 US, Ovary, for Follicular Monitoring [facility]0 [facility] [address] [place] [address] (Work Place) 08/29/2020 US, Ovary, for Follicular Monitoring [facility] [address] [place] [address] (Work Place) 09/07/2020 US, Ovary, for Follicular Monitoring [facility] [address] [place] [address] (Work Place) 09/27/2020 US, Ovary, for Follicular Monitoring [facility] [address] [place] [address] (Work Place) 10/04/2020 US, Ovary, for Follicular Monitoring [facility]0 [facility] [address] [place] [address] (Work Place) 10/11/2020 US, Ovary, for Follicular Monitoring [facility] [address] [place] [address] (Work Place) 11/01/2020 US, Ovary, for Follicular Monitoring [facility] [address] [place] [address] (Work Place) 12/29/2020 US, Ovary, for Follicular Monitoring [facility] [address] [place] [address] (Work Place) 01/08/2021 US, Ovary, for Follicular Monitoring [facility]0 [facility] [address] [place] [address] (Work Place) Results Lab Results Date Name Specimen Result Interpretation Description Value Range Status Address ? 03/29/2021 Cytology ? Interpretation nilm ? Fi nal [facility]: Report, [address] , Smear or [place] Scraping, Cervical or Vaginal ? ? ? Category: nil ? Final [facility]: [address] [facility] ? ? ? Adequacy: secni ? Final [facility]: [address] [facility] ? ? ? Clinician comment ? Final [facility]: Provided ICD10: 3 [address] [facility] ? ? ? Performed by: comment ? Final L [facility]: [address] [facility] ? ? ? Note: comment ? Final [facility]: [address] [facility] ? ? ? Test comment ? Final [facility]: Methodology: [address] [place] [address] ? ? ? HPV Aptima negative negative Final L [facility]: [address] [facility] 09/15/2020 Progesteron ? Progesterone, 10.6 ? Complete John e, Serum Serum NG/mL [facility] - Lab: [address], [place] 07/04/2020 Extra Tube ? Note ? ? Complete John [facility] (Lab [facility]) Health - Lab: [address], [place] 07/04/2020 Estradiol, ? Estradiol, 44.7 ? Comp lete [place] Serum Serum pg/mL [facility] - Lab: [address], [place] 07/04/2020 Prolactin, ? Prolactin, 8.7 NG/mL ? C omplete [place] Serum Serum [facility] - Lab: [address], [place] 07/04/2020 FSH ? FSH, Serum 6.9 ? Complete John (Follicle-s mIU/mL [facility] - Hormone), Lab: [address], [place] 07/04/2020 Lh ? Lutenizing 3.0 ? Complete John (Luteinizin Hormone (LH) mIU/mL [facility] Hormone), [facility] - Serum Lab: [address], [place] 07/04/2020 Thyroid ? Tsh 0.887 0.358-3.7 Complete John [place], uIU/mL 40 uIU/mL [facility] Serum Health - Lab: [address], [place] 07/04/2020 Rubella ? Rubella Immune immune immune Com plete [place] Virus IgG Status Reported [facility] Ab, QL, Health - Serum Lab: [address], [place] 07/04/2020 Anti-cervantes ? Antimullerian 3.9 NG/mL 0.58 -8.1 [facility] Hormone Hormone (Amh), S NG/mL [facility] (Amh), [facility] - Serum Lab: [address], [place] ? ? Result UPT negative ? ? Gf568_qsamom Test, Urine ale_b urnsvil le: [address] [facility] [address] [facility] [place] ? ? Result UPT negative ? ? Nr369_sefzwj Test, Urine ale_b urnsvil le: [address] [facility] [address] [facility] [place] ? ? Result UPT negative ? ? Gd930_weaesq Test, Urine ale_e maria alejandra: [address] , [place] Past Encounters Encounter Date Diagnosis Provider 03/29/2021 Gynecologic Examination EZEKIEL Conner M: 305 [facility], [address] [address], Ph. 01/10/2021 Female Infertility; Artificial Mariella MD Ricky: [address] [facility], [address] [address], Ph. 01/09/2021 Laura Sky MD: [facility], [address] [address], Ph. 01/08/2021 Female Infertility Laura Sky MD: 30 5 [facility] Paul You, [address] [address], Ph. 01/08/2021 Fertility Problem Laura Sky MD: 30 [address] [facility] [place], [address] [address], Ph. 12/29/2020 Primary Infertility Laura Sky MD: [address], [address], [place] [address], Ph. 12/29/2020 Female Infertility Laura Sky MD: [address], [address], [place] [address], Ph. 11/01/2020 Fertility Problem Rohini Major, EZEKIELM: [address], [address], [place] [address], Ph. 11/01/2020 Fertility Problem Yamilex Juarez MD : [address] [place] [address], [address], [place] [address], Ph. 10/12/2020 Artificial Insemination Kirti Lang NP: [address], [address], [place] [address], Ph. 10/11/2020 Female Infertility Kirti Lang RUG WASHER: [address], [address], [place] [address], Ph. 10/11/2020 Fertility Problem Yamilex Juarez MD : [address], [address], [place] [address], Ph. 10/04/2020 Female Infertility Kirti Lang RUG WASHER: [address], [address], [place] [address], Ph. 10/04/2020 Fertility Problem Yamilex Juarez MD : [address], [address], [place] [address], Ph. 09/27/2020 Female Infertility Kirti Lang RUG WASHER: [address], [address], [place] [address], Ph. 09/27/2020 Fertility Problem Azul Holt MD: [address], [address], [place] [address], Ph. Social History Tobacco Smoking Status Never [...]
--- OUTSIDE RECORDS SUMMARY | 2022-03-28 13:27 | XMS_ITS | Clinical Summary ---
:1990 Author Organization [place] Address [address] [place] [address] Care Team Providers Name Role Phone No Ref-Primary, Physician Primary Care Provider [phone] Allergies Active Allergy Reactions Severity Noted Date Comments Penicillins 06/30/2002 PN: LW Reaction : Rash, Generalized Sulfa Drugs 06/30/2002 PN: LW Reaction : Rash, Generalized Social History Tobacco Use Types Packs/Day Years [...] to 64 comple te this topic Years) Insurance Payer Benefit Plan / Subscriber ID Effective Dates Phone Addre ss Type Group [employer] [id number] 2019-[place] [id number] [place] [address] Care Teams Mortgage Loan Closer Relationship Specialty Start Date End Date No Ref-Primary, Physician PCP - General 11/16/18
--- OUTSIDE RECORDS SUMMARY | 2022-03-28 13:28 | XMS_ITS | Encounter Summary ---
:1990 Author Organization [facility] Address [address] [place], [place] [address] [address] Care Team Providers Name Role Phone Brisa Smith PA-C Primary Care Provider Reason for Visit Reason Comments Patient Calling Back Encounter Details Date Type Department Care Team Description 09/15/2012 Telephone [facility] Jasmin Whitmore Patient Calling Back [address] [place] [address] Social History Tobacco Use [...] CDT Left message for patient to call [phone] and ask for nurse triage for lab [...] on filedocumented in this encounter Care Teams Internet Designer Relationship Specialty Start Date End Date Brisa Smith PA-C PCP - General 07/30/10 04/18/15 [address] [place] [address] documented as of this encounter
--- OUTSIDE RECORDS SUMMARY | 2022-03-28 13:28 | XMS_ITS | Encounter Summary ---
:1990 Author Organization [facility] Address [address] [place] [address] Care Team Providers Name Role Phone Found, No Pcp MD Primary Care Provider Unavailable Reason for Visit Reason Comments Annual Exam Encounter Details Date Type Department Care Team Description 03/18/2019 Office Visit [facility] (Primary Dx); Services-CRYPTOLOGIC SUPPORT SPECIALIST Josephine Bingham MD Screening for cervical cancer; [address] [place] [address] for influenza vaccination; [address] Vaginal itching; [place], [place] Encounter for preconception consultation [phone] [phone] Social History Tobacco Use Types Packs/Day Years Used Date Smoking Tobacco: Never Smokeless Tobacco: Never Alcohol Use Standard Drinks/Week Comments Yes 2.8 (1 standard drink = 0.6 oz pure alco hol) Sex Assigned at Date Recorded Not on file documented as of this encounter Last Filed Vital Signs Vital Sign Reading Time Taken Comments Blood Pressure 117/62 03/18/2019 3:47 PM MISSION SUPPORT SPECIALIST Pulse 74 03/18/2019 3:47 PM MISSION SUPPORT SPECIALIST Temperature - - Respiratory Rate - - Oxygen Saturation - - Inhaled Oxygen Concentration - - Weight 71.5 kg (157 lb 9.6 oz) 03/18/2019 3:47 PM MISSION SUPPORT SPECIALIST Height 172.7 cm (5' 8) 03/18/2019 3:47 PM MISSION SUPPORT SPECIALIST Body Mass Index 23.96 03/18/2019 3:47 PM MISSION SUPPORT SPECIALIST documented in this encounter Patient Instructions Patient [...] is more common in people of Ashkenazi Episcopalian, Georgian-Danish, or Cajun backgrounds. ?? Diseases that occur more often in people of Ashkenazi Episcopalian background. These include: ? Alexey-Sachs disease. ? Manpreet disease. ? Familial dysautonomia. ? Cystic fibrosis. ? Fanconi anemia group C. ? Geoffrey-Pick disease type A. ? Mucolipidosis IV. ? Deutsch syndrome. ? Gaucher's disease. Should you be tested? Certain genetic conditions are more common in certain ethnic groups. People who are or of , Ashkenazi Episcopalian, Southeast , Georgian-Danish, or Mediterranean background may want to think about genetic testing to find out if they have or are a carrier of a genetic condition that they could pass on to their child. Certain genetic conditions are more common in these ethnic groups. Some close-knit restorationism communities also have higher rates of certain [...] can you learn more? 1. Go to https://Azullo.Blink (air taxi)/healthlibrary or [employer]/MoodsnapraAtiva Medical. 2. Enter Q084 in the search box. Current as of: July 27, 2018 Content Version: 12.2 ?? 4960-9096 Healthwise, Incorporated. Care instructions adapted under license by your healthcare professional. If you have questions about a medical condition or this instruction, always ask your healthcare professional. [employer] disclaims any warranty or liability for your use of this information. Learning About Planning for Future How can you plan for ? Even before you get , you can help make your as healthy as possible. Take these steps: ?? See a doctor or certified nurse-jewelry estimator for an exam. Talk about the medicines, [...] And it can help your doctor or jewelry estimator figure out when your baby isdue and how it is growing. ?? Make healthy choices. Eat well. Avoid caffeine. Or cut back and only have 1 cup of coffee or tea a day. Avoid alcohol, cigarettes, and illegal drugs. Take only the medicines your doctor or jewelry estimator says are okay. ?? Get plenty of [...] an appointment with your doctor or certified nurse-jewelry estimator. Your first visit will provide information that can be used to check for any problems asyour progresses. Where can you learn more? 1. Go to https://Basic-Fit/Amiatorary or [employer]/MoodsnapraAtiva Medical. 2. Enter R938 in the search box. Current as of: September 23, 2018 Content Version: 12.2 ?? 5082-2366 [employer]. Care instructions adapted under license by your healthcare professional. If you have questions about a medical condition or this instruction, always ask your healthcare professional. [employer] disclaims any warranty or liability for your use of this information. ION SUPPORT SPECIALIST documented in this encounter Progress Notes Josephine [...] that they are planning a trip to [place] in May and would like to potentially conceive during the trip. She is wondering about the timing of when she should take it out given this. Rim Roller Setter History: Menses: Rare and irregular with Mirena in place. Prior to IUD they were heavy. Contraception: Mirena IUD Pap: Last Pap NIL in 08/2017 in [place]. Records not available Sexual activity: Active with [...] ok with -Reviewed plans for travel to [place] and discuss this in the context of [...] were spent in discussion of preconception counseling ION SUPPORT SPECIALIST documented in this encounter Plan of Treatment Not on filedocumented as of this encounter Procedures Procedure Name Priority Date/Time Associated Diagnosis Comme nts VAGINITIS PANEL Routine 03/18/2019 4:45 PM Vaginal itching Res ults for this MISSION SUPPORT SPECIALIST procedure are i n the results section. documented in this encounter Results Vaginitis Panel, DNA Probe (03/18/2019 4:45 PM MISSION SUPPORT SPECIALIST) [facility] gist Method Time Signature Gardnerella Negative Negative 03/19/2019 [facility] vaginalis 4:43 PM M[facility]ION SUPPORT SPECIALIST [facility] China species Negative Negative 03/19/2019 [facility] 4:43 PM [facility] Trichomonas Negative Negative 03/19/2019 [facility] vaginalis 4:43 PM M[facility]ION SUPPORT SPECIALIST [facility] Specimen Anatomical Collection Method Collection Time Receive d Time (Source) Location / / Volume Laterality Swab (Source SPECIMEN FROM Non-blood 03/18/2019 4:45 PM 03/18/20 19 4:46 Required) VAGINA / Unknown Collection / MISSION SUPPORT SPECIALIST PM MISSION SUPPORT SPECIALIST Unknown Josephine Prater MD LAB_1 Performing Organization Address City/State/ZIP Code Phon e Number [facility] [address] [place] [address] documented in this encounter Visit Diagnoses Diagnosis Preventative health care - Primary Routine general medical examination at a health care facility Screening for cervical cancer Screening for malignant neoplasm of the cervix Need for influenza vaccination Need for prophylactic vaccination and in oculation against influenza Vaginal itching Pruritus of genital organs Encounter for preconception consultation documented in this encounter Care Teams Bobbin Trucker Relationship Specialty Start Date End Date Found, No Pcp, PCP - General 05/02/15 [address] [place] [address] documented as of this encounter
--- OUTSIDE RECORDS SUMMARY | 2022-03-28 13:28 | XMS_ITS | Encounter Summary ---
:1990 Author Organization [place] Address [address] [place] [address]. [place] [address] Care Team Providers Name Role Phone No Ref-Primary, Physician Primary Care Provider [phone] Encounter Details Date Type Department Care Team Description 10/22/2021 Medical Correspondence [facility] Scan, REFERRAL Health Info [facility] Non-Provider [facility] Sr[facility] CLINICS [address] [place] [address] Social History Tobacco Use Types Packs/Day Years Used Date Smoking Tobacco: Never Assessed Sex Assigned at Date Recorded Not on file documented as of this encounter Plan of Treatment Not on filedocumented as of this encounter Visit Diagnoses Not on filedocumented in this encounter Care Teams Wire Harness Design Engineer Relationship Specialty Start Date End Date No Ref-Primary, Physician PCP - General 11/16/18 documented as of this encounter
--- OUTSIDE RECORDS SUMMARY | 2022-03-28 13:28 | XMS_ITS | Encounter Summary ---
:1990 Author Organization [facility] Address [address] [place] [address] Care Team Providers Name Role Phone Found, No Pcp Primary Care Provider Unavailable Reason for Visit Reason Comments IUD Removal Encounter Details Date Type Department Care Team Description 05/20/2019 Office Visit [facility], Encounter for removal Services-GLOST KILN OPERATOR Josephine Bingham MD of intrauterine [address] [place] [address] traceptive device [address] (Primary Dx) [place] [address] [phone] Social History Tobacco Use Types Packs/Day Years Used Date Smoking Tobacco: Never Smokeless Tobacco: Never Alcohol Use Standard Drinks/Week Comments Yes 2.8 (1 standard drink = 0.6 oz pure alco hol) Sex Assigned at Date Recorded Not on file documented as of this encounter Last Filed Vital Signs Vital Sign Reading Time Taken Comments Blood Pressure 126/63 05/20/2019 4:12 PM FIELD AIDE Pulse 62 05/20/2019 4:12 PM FIELD AIDE Temperature - - Respiratory Rate - - Oxygen Saturation - - Inhaled Oxygen Concentration - - Weight 72.1 kg (159 lb) 05/20/2019 4:12 PM FIELD AIDE Height - - Body Mass Index 24.18 03/18/2019 3:47 PM FIELD AIDE documented in this encounter Progress Notes Josephine [...] clinic with positive UPT. Josephine Prater MD D AIDE documented in this encounter Plan of Treatment Not on filedocumented as of this encounter Visit Diagnoses Diagnosis Encounter for removal of intrauterine co ntraceptive device - Primary documented in this encounter Care Teams Cafe Site Attendant Relationship Specialty Start Date End Date Found, No PcpMD PCP - General 05/02/15 [address] [place] [address] documented as of this encounter
--- OUTSIDE RECORDS SUMMARY | 2022-03-28 13:28 | XMS_ITS | Encounter Summary ---
:1990 Author Organization [facility] Address [address] [place] [address] Care Team Providers Name Role Phone Brisa Smith PA-C Primary Care Provider Reason for Visit Reason Comments Annual Exam Encounter Details Date Type Department Care Team Description 09/08/2012 Office Visit [facility] Jasmin Crystal Routine physical examination (Primary Dx); Medicine K Screening for malignant neop lasm of the cervix; [address] Screening for STDs (sexually transmitted diseases); [place], [place] Contraceptive management; [address] Screen for STD (sexually tra nsmitted disease); [phone] Bacterial vagin itis; Vaginal yeast i nfection [...] negative Neurological ROS: negative Dermatological ROS: negative Staff Pharmacist Hospital History: : LMP: Patient's last menstrual period [...] Years of Education: N/A 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 She is currently dating. Immunizations: [...] adenopathy. Pelvic: Normal external genitalia and urethra. [place], moist vaginal and cervical mucosa, without lesions. [...] 08/16/2016 1:02 AM CDTNotes Recorded by Jasmin Crytsal PA-C on 09/15/2012 at 10:43 AMPlease call [...] agrees with the plan, all questions answered. STONE FITTER Miscellaneous - 06/07/2016 7:11 AM CSTNotes Recorded by Jasmin Crystal PA-C on 09/15/2012 at 10:43 AMPlease call patient pap smear normal, STD screen for gonorrhea/chlamydia negative STONE FITTER Assessment & Plan Note - Jasmin Crystal [...] (ABNORMAL) WET PREP (09/08/2012 11:12 AM CDT) [facility] Method Time Signature WETPR White Moderate HP [...] - 09/08/2012 11:31 AM CDT Performed at [facility], [address] [place] [address] Transcriptions 06/07/2016 7:24 AM CSTNotes Recorded by [...] Component Value Ref Test Analysis Performed At [facility] Range Method Time Signature Source Endocervical for [...] CDT FINAL GYNECOLOGICAL CYTOLOGY REPORT Pathology #: [id number] ?Date Obtained: 09/08/2012 ? Date Received: 09/09/2012 [...] 8:02 AM CDT AM CDT Jasmin K Josias LAB_1 Performing Organization Address [...] vagina documented in this encounter Care Teams Mentally Retarded Teacher Relationship Specialty Start Date End Date Brisa Smith PA-C PCP - General 07/30/10 04/18/15 [address] [place] [address] documented as of this encounter
--- OUTSIDE RECORDS SUMMARY | 2022-03-28 13:28 | XMS_ITS | Encounter Summary ---
:1990 Author Organization [facility] Address [address] [place] [address] Care Team Providers Name Role Phone No Ref-Primary, Physician Primary Care Provider [phone] Encounter Details Date Type Department Care Team Description 11/16/2018 Travel Social History Tobacco Use Types Packs/Day Years Used Date Smoking Tobacco: Never Assessed Sex Assigned at Date Recorded Not on file documented as of this encounter Plan of Treatment Not on filedocumented as of this encounter Visit Diagnoses Not on filedocumented in this encounter Care Teams Explosives Handler Relationship Specialty Start Date End Date No Ref-Primary, Physician PCP - General 11/16/18 documented as of this encounter
--- OUTSIDE RECORDS SUMMARY | 2022-03-28 13:28 | XMS_ITS | Encounter Summary ---
:1990 Author Organization [facility] Address [address] [place] [address] Care Team Providers Name Role Phone Unavailable Primary Care Provider Unavailable Encounter Details Date Type Department Care Team Description 10/19/2003 Emergency room Daria Cavanaugh MD EMERGENCY PHYSIC [address] [place], [place] [address] (Wo rk) Social History [...] [id number] _ DARIA CAVANAUGH MD MT: Document: [id number] [address], [place] Name: MINO POSADAS EMERGENCY ROOM ENCOUNTER Page 2 of 2 LCN: SILVIA DSC: 10/19/[address], [place] Name: MR#: : Admit Date: MINO POSADAS -33 1990 10/19/2003 Doctor: DARIA CAVANAUGH MD EMERGENCY ROOM ENCOUNTER Page 1 of 2 documented in this encounter Plan of Treatment Not on filedocumented as of this encounter Visit Diagnoses Not on filedocumented in this encounter
--- OUTSIDE RECORDS SUMMARY | 2022-03-28 13:28 | XMS_ITS | Encounter Summary ---
:1990 Author Organization [facility] Address [address] [place] [address] Care Team Providers Name Role Phone Found, No Pcp MD Primary Care Provider Unavailable Reason for Visit Reason Comments Post Visit Follow Up Encounter Details Date Type Department Care Team Description 11/14/2018 Nurse Triage [place] Nurse E[place] Ortiz[place] [address] [facility] [address] [place] [address] [facility] [phone] [place] [address] (Wo rk) Social History Tobacco [...] used: RECENT MEDICAL VISIT FOR ILLNESS FOLLOW-UP [id number] Problem list reviewed as related to this call. documented in this encounter Plan of Treatment Not on filedocumented as of this encounter Visit Diagnoses Not on filedocumented in this encounter Care Teams Maintainer Central Office Relationship Specialty Start Date End Date Found, No Pcp, PCP - General 05/02/15 [address] [place] [address] documented as of this encounter
--- OUTSIDE RECORDS SUMMARY | 2022-03-28 13:28 | XMS_ITS | Clinical Summary ---
:1990 Author Organization [facility] Address [address] [place] [address] Care Team Providers Name Role Phone Found, [...] for each transition of care or referral. Vilynx Allergies Active Allergy Reactions Severity Noted Date [...] 11/23/2001, 10/15/2001 Influenza IIV4 (Quadrivalent) 0.5mL 03/18/2019 (78001) MCV4 (Menactra) 09/07/2007 MMR 11/23/2001 TDAP (ADACEL) [...] 72.1 kg (159 lb) 05/20/2019 4:12 PM DEPUTY OF COUNTER INTELLIGENCE Height 172.7 cm (5' 8) 03/18/2019 3:47 PM DEPUTY OF COUNTER INTELLIGENCE Body Mass Index 24.18 03/18/2019 3:47 PM DEPUTY OF COUNTER INTELLIGENCE Plan of Treatment Health Maintenance Due Date [...] Effective Phone Address T ype Group Dates [facility] [id number] 2020-Pr [phone] Comp INSURANCE WC INSURANCE WC esent [phone] SEAM[address] YANG [address] MEDICA MEDICA CHOICE [id number] 2018-Pre Com mercial sent Hellen Sigala Personal/Family Self 1990 [id number] [phone] Otilia DIANA (Work) [address] Hellen Sigala Workers Comp Self [phone] [phone] Otilia DIANA (Work) [address] Care Teams Elevated Work Platform Operator Relationship Specialty Start Date End Date Found, No Pcp, PCP - General 05/02/15 [address] [place] [address]
--- OUTSIDE RECORDS SUMMARY | 2022-03-28 13:28 | XMS_ITS | Encounter Summary ---
:1990 Author Organization [facility] Address [address] [place] [address] Care Team Providers Name Role Phone Unavailable [...] 12-year-old female who yesterday collided with another double bass player and now complains of decreased sensation in [...] [id number] _ ANGELES HEARD MD MT: Document: [id number] [place], [place] Name: MINO POSADAS EMERGENCY ROOM ENCOUNTER Page 2 of 2 LCN: IGNACIA DSC: 08/14/2003 [place], [place] Name: MR#: : Admit Date: MINO POSADAS [id number] 1990 08/14/2003 Doctor: ANGELES HEARD MD EMERGENCY ROOM ENCOUNTER Page 1 of 2 documented in this encounter Plan of Treatment Not on filedocumented as of this encounter Visit Diagnoses Not on filedocumented in this encounter
--- OUTSIDE RECORDS SUMMARY | 2022-03-28 13:28 | XMS_ITS | Encounter Summary ---
:1990 Author Organization [facility] Address [address] [place] [address] Care Team Providers Name Role Phone Brisa Smith PA-C Primary Care Provider Reason for Visit Reason Comments Annual Exam Ear Pain Encounter Details Date Type Department Care Team Description 09/02/2011 Office Visit [facility] Jasmin Crystal p hysical exam (Primary Dx); Medicine K Screening for malignant neop lasm of the cervix; [address] Depression, major, recurrent ; [place], [place] Screening for STDs (sexually transmitted diseases); [address] Contraceptive management; [phone] Need vaccinatio n-viral disease; Vacc for viral [...] HI. Denies recent life changes or stressors. 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 Smoking [...] History Narrative Currently home from college. Attends [employer] will be a senior next fall studying [...] adenopathy. Pelvic: Normal external genitalia and urethra. [place], moist vaginal and cervical mucosa, without lesions. [...] Component Value Ref Test Analysis Performed At [facility] gist Range Method Time Signature Chlamydia Chlamydia [...] The amplified DNA assay is cleared by [facility] for non-medicolegal diagnostic testing in [facility] adult population. Neisseria gonorrhea DNA Probe ?FINAL ? 09/04/11 10:24 Neisseria gonorrhea NEGATIVE by DNA amp lification. The amplified DNA assay is cleared by [facility] for non-medicolegal diagnostic testing in [facility] adult population. Specimen (Source) Anatomical Collection [...] CDT Final GYNECOLOGICAL CYTOLOGY REPORT Pathology #: [id number] ?Date Obtained: 09/02/2011 ? Date Received: 09/03/2011 [...] CDT Jasmin Kangrico LAB_1 Performing Organization Address City/[facility] Phon e Number HP CONVERSION documented [...] unspecified documented in this encounter Care Teams Piping Engineer Relationship Specialty Start Date End Date Brisa Smith PA-C PCP - General 07/30/10 04/18/15 [address] [place] [address] documented as of this encounter
--- OUTSIDE RECORDS SUMMARY | 2022-03-28 13:28 | XMS_ITS | Encounter Summary ---
:1990 Author Organization [facility] Address [address], [place] [address] Care Team Providers Name Role Phone Lynette Smith PA-C Primary Care Provider Reason for Visit Reason Comments Other Encounter Details Date Type Department Care Team Description 11/23/2008 Telephone [facility], Message Other [address] [place] [address] Social History Tobacco Use Types Packs/Day Years Used Date Smoking Tobacco: Never Assessed Sex Assigned at Date Recorded Not on file documented as of this encounter Progress Notes Yinka Ramsey MA - 11/23/2008 9:47 AM CDT Phone Note filed by Yinka Ramsey MA at 08/17/10831 Author: Yinka Ramsey MA Service: (none) Author Type: Field Laborer Filed: 08/17/10831 Note Time: 11/23/08946 Status: Signed Slasher Machine Operator: Yinka Ramsey MA (Field Laborer) Results of US in LW. Created on 23Nov2008 9:47am by YINKA RAMSEY On 23Nov2008 10:13am LYNETTE SMITH wrote: Please notify patien that ultrasound is normal. Acknowledged by LYNETTE SMITH on 10:13am On 23Nov2008 10:22am CHLOE QUINN wrote: LM at [phone] (# given by someone at day phone# below) for pt to call for above info. Any nurse can relay result. On 23Nov2008 10:23am ANT PANG wrote: pt is returning call. On 23Nov2008 10:43am JESSICA ISAAC wrote: results given, no further questions at this time. CLEANING MACHINE TENDER documented in this encounter Plan of Treatment Not on filedocumented as of this encounter Visit Diagnoses Not on filedocumented in this encounter Care Teams Ultrasound Technologist Relationship Specialty Start Date End Date Lynette Smith PA-C PCP - General 07/30/10 04/18/15 [address] [place] [address] documented as of this encounter
--- OUTSIDE RECORDS SUMMARY | 2022-03-28 13:28 | XMS_ITS | Encounter Summary ---
:1990 Author Organization [facility] Address [address] [place] [address] Care Team Providers Name Role Phone Brisa Smith PA-C Primary Care Provider Encounter Details Date Type Department Care Team Description [facility]/16[facility] [place] [address] [address] [place], [place] [address] (Wo rk) Social History [...] Smith PA-C Service: (none) Author Type: Physician Blacktop Spreader Filed: 08/18/10 8438 Note Time: 11/16/08 0001 Status: Signed Hotel Maintenance Worker: Brisa Smith PA-C (Resource) Subjective: 18-year-old female [...] filedocumented in this encounter Care Teams Senior Biostatistician Relationship Specialty Start Date End Date Brisa Smith PA-C PCP - General 07/30/10 04/18/15 [address] [place] [address] documented as of this encounter
--- OUTSIDE RECORDS SUMMARY | 2022-03-28 13:28 | XMS_ITS | Encounter Summary ---
:1990 Author Organization [facility] Address [address] [place] [address] Care Team Providers Name Role Phone Brisa Smith PA-C Primary Care Provider Encounter Details Date Type Department Care Team Description 04/19/2011 Lab Visit [facility] Acute pharyngitis [address] [place] [address] Social History Tobacco Use Types Packs/Day Years Used Date Smoking Tobacco: Never Assessed Sex Assigned at Date Recorded Not on file documented as of this encounter Plan of Treatment Not on filedocumented as of this encounter Procedures Procedure Name Priority Date/Time Associated Diagnosis Comme nts COMPLETE BLOOD Routine 04/19/2011 10:33 Acute pharyngitis Resu lts for this COUNT-W/DIFF AM FOOTBALL PAD REPAIRER procedure are i n the results section. DIFFERENTIAL Routine 04/19/2011 10:33 Results for this AM FOOTBALL PAD REPAIRER procedure are i n the results section. VENIPUNCTURE (THALIA) Routine 04/19/2011 Results for this procedure are i n the results section. documented in this encounter Results Differential (04/19/2011 10:33 AM FOOTBALL PAD REPAIRER) P athologist Signature Absolute 4.5 1.8 - [...] / Volume Laterality 04/19/2011 10:33 04/19/2011 AM FOOTBALL PAD REPAIRER 10:33 AM FOOTBALL PAD REPAIRER Narrative HP CONVERSION - 04/19/2011 10:36 AM FOOTBALL PAD REPAIRER Performed at [facility], [address] [place], [place] [id number] Norberto Pandya MD LAB_1 Performing Organization Address [facility] Phon e Number HP CONVERSION (ABNORMAL) Hemogram/Plts/Diff (04/19/2011 10:33 AM FOOTBALL PAD REPAIRER) [facility] gist Method Time Signature White Blood [...] / Volume Laterality 04/19/2011 10:33 04/19/2011 AM FOOTBALL PAD REPAIRER 10:33 AM FOOTBALL PAD REPAIRER Narrative HP CONVERSION - 04/19/2011 10:36 AM FOOTBALL PAD REPAIRER Performed at [facility], [address] [place], [place] [id number] Norberto Pandya MD LAB_1 Performing Organization Address [facility] Phon e Number HP CONVERSION VENIPUNCTURE (THALIA) (04/19/2011) athologist Signature Venipuncture Done HP CONVERSION Specimen (Source) Anatomical Location Collection Method / Collectio n Time Received Time / Laterality Volume 04/19/2011 04/19/2011 Narrative HP CONVERSION - 04/19/2011 10:33 AM FOOTBALL PAD REPAIRER Performed at [facility], [address] [place], [place] [address] Norberto Pandya MD LAB_1 Performing Organization Address [facility] Phon e Number HP CONVERSION documented in this encounter Visit Diagnoses Diagnosis Acute pharyngitis documented in this encounter Care Teams Documentation Manager Relationship Specialty Start Date End Date Brisa Smith PA-C PCP - General 07/30/10 04/18/15 [address] [place] [address] documented as of this encounter
--- OUTSIDE RECORDS SUMMARY | 2022-03-28 13:28 | XMS_ITS | Encounter Summary ---
:1990 Author Organization [facility] Address [address], [place] [address] Care Team Providers Name Role Phone Brisa Smith PA-C Primary Care Provider Encounter Details Date Type Department Care Team Description 11/02/2009 PN Conversion Only [place] [address] [facility] [address] [place], [place] [address] [place] [address] Social History Tobacco Use Types Packs/Day Years [...] (11/02/2009 6:51 PM CDT) Analysis Performed At [facility] Time Signature Strep Group A SEE TEXT [...] on filedocumented in this encounter Care Teams Project Manager Process Development Relationship Specialty Start Date End Date Brisa Smith PA-C PCP - General 07/30/10 04/18/15 [address] [place] [address] documented as of this encounter
--- OUTSIDE RECORDS SUMMARY | 2022-03-28 13:28 | XMS_ITS | Encounter Summary ---
:1990 Author Organization [facility] Address [address] [place] [address] Care Team Providers Name Role Phone Brisa Smith PA-C Primary Care Provider Reason for Visit Reason Comments INJURY, SHOULDER Encounter Details Date Type Department Care Team Description 06/12/2011 Telephone [facility] Brisa Smith PA-C INJURY, SHOULDER [address] [place] [address] SE [phone] [place], [place] [address] (Wo rk) Social History [...] Friday for appt, as she is in [place] at school, but will also check with her parents on if their insurance covers somewhere down there in case pain worsens. She will ice and us ibuprofen until then. ED GRID AND PARTS INSPECTOR Sully Ford Leena - 06/12/2011 9:49 AM CST Non -Symptom Message from [facility] Primary Care Provider: Brisa Smith PA-C Message: Pt would like advice from a Nurse regarding her shoulder pain ED GRID AND PARTS INSPECTOR documented in this encounter Plan of Treatment Not on filedocumented as of this encounter Visit Diagnoses Not on filedocumented in this encounter Care Teams Back Grinder Relationship Specialty Start Date End Date Brisa Smith PA-C PCP - General 07/30/10 04/18/15 [address] [place] [address] documented as of this encounter
--- OUTSIDE RECORDS SUMMARY | 2022-03-28 13:28 | XMS_ITS | Encounter Summary ---
:1990 Author Organization [facility] Address [address] [place] [address] Care Team Providers Name Role Phone Brisa Smith PA-C Primary Care Provider Encounter Details Date Type Department Care Team Description 11/16/2008 PN Conversion Only [facility] CONVERSION Brisa Smith, [address] [place] [address] [place], [place] [address] (Wo rk) Social History [...] - HP CONVERSION Hemoglobin Conc 36.5 gm/dL [place] RDW 11.8 11.0 - HP CONVERSION 15.0 [...] CONVERSION ALT (SGPT) (11/16/2008 1:37 PM CDT) [facility] gist Method Time Signature Alanine 14 4 - 55 HP CONVERSION Aminotransferase U/L Specimen (Source) Anatomical Collection Method Collection Time Re ceived Time Location / / Volume Laterality 11/16/2008 1:37 PM CDT Brisa Smith LUIS LAB_1 Performing Organization Address City/[facility] Code Phon e Number HP CONVERSION Amylase (11/16/2008 1:37 PM CDT) athologist Signature Amylase Serum 53 25 - 115 HP CONVERSION U/L Specimen (Source) Anatomical Collection Method Collection Time Re ceived Time Location / / Volume Laterality 11/16/2008 1:37 PM CDT Brisa Salvadoraryan WAYMimaDonnell LAB_1 Performing Organization Address [facility] Code Phon e Number HP CONVERSION AST (11/16/2008 1:37 PM CDT) [facility] gist Method Time Signature Aspartate 19 0 - 45 HP CONVERSION Aminotransferase U/L Specimen (Source) Anatomical Collection Method Collection Time Re ceived Time Location / / Volume Laterality 11/16/2008 1:37 PM CDT Brisa Salvadoraryan WAYMimaDonnell LAB_1 Performing Organization Address City/[facility] Code Phon e Number HP CONVERSION Bilirubin, Direct (11/16/2008 1:37 PM CDT) athologist Signature Bilirubin, 0.1 0.0 - 0.4 HP CONVERSION Direct mg/dL Specimen (Source) Anatomical Collection Method Collection Time Re ceived Time Location / / Volume Laterality 11/16/2008 1:37 PM CDT Brisa Smith SEAMUSMimaDonnell LAB_1 Performing Organization Address City/[facility]/ZIP Code Phon e Number HP CONVERSION Bilirubin, Total (11/16/2008 1:37 PM CDT) athologist Signature Bilirubin Total 0.3 0.2 - 1.2 HP CONVERSION mg/dL Specimen (Source) Anatomical Collection Method Collection Time Re ceived Time Location / / Volume Laterality 11/16/2008 1:37 PM CDT Brisa Smith PA-C LAB_1 Performing Organization Address City/[facility]/ZIP Code Phon e Number HP CONVERSION Lipase (11/16/2008 1:37 PM CDT) P athologist Signature Lipase 55 5 - 70 U/L HP CONVERSION Specimen (Source) Anatomical Collection Method Collection Time Re ceived Time Location / / Volume Laterality 11/16/2008 1:37 PM CDT Brisa Smith PA-C LAB_1 Performing Organization Address City/[facility] Phon e Number HP CONVERSION documented in this encounter Visit Diagnoses Not on filedocumented in this encounter Care Teams Steamblaster Relationship Specialty Start Date End Date Brisa Smith PA-C PCP - General 07/30/10 04/18/15 [address] [place] [address] documented as of this encounter
--- OUTSIDE RECORDS SUMMARY | 2022-03-28 13:28 | XMS_ITS | Encounter Summary ---
:1990 Author Organization [facility] Address [address] [place] [address] Care Team Providers Name Role Phone Brisa Smith PA-C Primary Care Provider Encounter Details Date Type Department Care Team Description 11/18/2008 PN Conversion Only [facility] [address] [place] [address] Social History Tobacco Use Types Packs/Day Years [...] CDT : ??Negative right upper quadrant ultrasound. [id number]/[facility] Dictating JOE MENDES Radiologist Narrative 11/18/2008 8:12 [...] : Negative right upper [place]. 450366/[facility] Dictating JOE MENDES Radiologist Brisa Smith PA-C RAD US documented in this encounter Visit Diagnoses Not on filedocumented in this encounter Care Teams Powerhouse Mechanic Helper Relationship Specialty Start Date End Date Brisa Smith PA-C PCP - General 07/30/10 04/18/15 [address] [place] [address] documented as of this encounter
--- OUTSIDE RECORDS SUMMARY | 2022-03-28 13:28 | XMS_ITS | Encounter Summary ---
:1990 Author Organization [facility] Address [address] [address] Care Team Providers Name Role Phone Lynette Smith PA-C Primary Care Provider Reason for Visit Reason Comments Other Encounter Details Date Type Department Care Team Description 11/15/2008 Telephone [facility] [place], Message Other [address] [place], [place] [id number] Social History Tobacco Use Types Packs/Day Years Used Date Smoking Tobacco: Never Assessed Sex Assigned at Date Recorded Not on file documented as of this encounter [facility], Message - 11/15/2008 12:11 PM CDT Phone Note filed by Cook Taste Eat at 08/17/10 1560 Author: Cook T[employer] Eat Service: (none) Author Type: (none) Filed: 08/17/10 6911 Note Time: 11/15/08 1211 Status: Signed Finisher Hot Strip: Cook Taste Eat (Resource) Front Line Sx Call Caller Name/Relationship:ptHellen Primary Wholesale Buyer:Luis Symptom or request?Pt was earlier in the month for stomach pain, pt was given rx that is not working. Pt is still having same sx. Is appointment scheduled & when?no Hide Trimmer:pt Best call back number:[phone] c Is it OK to leave a confidential message on this voicemail?yes *ECODE~PNSX2 Created on [id number] 12:11pm by JESSICA KITCHEN On 15Nov2008 12:21pm JESSICA HERNÁNDEZ wrote: Left message to callback to [id number] and ask to speak with a nurse. [...] and agrees. Pt was transfered to scheduling. THCARE CORPORATE ACCOUNT DIRECTOR documented in this encounter Plan of Treatment Not on filedocumented as of this encounter Visit Diagnoses Not on filedocumented in this encounter Care Teams Time Signal Wirer Relationship Specialty Start Date End Date Lynette Smith, LUIS PCP - General 07/30/10 04/18/15 [address] [place] [address] documented as of this encounter
--- OUTSIDE RECORDS SUMMARY | 2022-03-28 13:28 | XMS_ITS | Encounter Summary ---
:1990 Author Organization [facility] Address [address] [place] [address] Care Team Providers Name Role Phone Found, No Pcp MD Primary Care Provider Unavailable Reason for Visit Reason Comments FOREIGN BODY, EYE Encounter Details Date Type Department Care Team Description 01/20/2020 Hospital Encounter [facility] Esquivel Abrasi on of right [facility] cornea, initial Care [address] [address] [place] [phone] Social History Tobacco Use Types Packs/Day Years [...] your doctor if you can take an vabg-cmc-qunrdcp medicine. ? Do not take two or [...] can you learn more? 1. Go to https://Tag & See/cafegive or Ultracell/Silverpop. 2. Enter G403 in the search box. Current as of: April 13, 2019?Content Version: 12.4 ?? iNeed. Care instructions adapted under license by your healthcare professional. If you have questions abouta medical condition or this instruction, always ask your healthcare professional. iNeed disclaims any warranty or liability for your [...] Not on file Occupational History ??? 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 Financial [...] file Gets together: Not on file Attends faith service: Not on file Active member of [...] No Social History Narrative Recently graduated from [employer] in civil engineering. 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 She is currently dating. Adverse [...] your doctor if you can take an klho-ttg-sftlxyo medicine. ? Do not take two or [...] can you learn more? 1. Go to https://LiveHotSpot.Epay Systems/healthlibrary or Ultracell/Avanse Financial Serviceslibrary. 2. Enter G403 in the search box. Current as of: April 13, 2019?Content Version: 12.4 ?? [id number] iNeed. Care instructions adapted under license by your healthcare professional. If you have questions about a medical condition or this instruction, always ask your healthcare professional. iNeed disclaims any warranty or liability for your [...] eye documented in this encounter Care Teams Geothermal Operations Engineer Relationship Specialty Start Date End Date Found, No Pcp, PCP - General 05/02/15 [address] [place] [address] documented as of this encounter
--- OUTSIDE RECORDS SUMMARY | 2022-03-28 13:28 | XMS_ITS | Encounter Summary ---
:1990 Author Organization [facility] Address [address] [place] [address] Care Team Providers Name Role Phone No Ref-Primary, Physician Primary Care Provider [phone] Reason for Visit Reason Comments Abdominal Pain Encounter Details Date Type Department Care Team Description 11/16/2018 Emergency [facility] Torsten Madden MD Acute abdominal pain; [facility] Emergency Dep t EMERGENCY PHYSICIANS Adverse reaction to antibiot ic [address] [place], [place] [address] [facility] [phone] [place] [address] [place] [address] (Wo rk) Social History Tobacco [...] directed by your doctor today. Before using zfzi-ubf-raycpti medications, ask your doctor and make sure [...] contain Tylenol?? (acetaminophen), including Vicodin??, Tylenol #3??, Matlock??, Lortab??, and Percocet??. You should not take [...] be sent through Care Everywhere.Drug Reaction, Other (Iranian)documented in this encounter Medications at Time of [...] observations and the provider's statements to me. [facility] EMERGENCY DEPARTMENT Torsten Madden MD 11/16/18 [...] UA with Microscopic (11/16/2018 3:00 AM CDT) [facility] Method Time Signature Color Urine Straw 11/16/2018 [facility] 3:14 AM [facility] Appearance Urine Clear 11/16/2018 [facility] 3:14 AM [facility] Glucose Urine Negative NEG^Negat 11/16/2018 [facility] raisa mg/dL 3:14 AM [facility] Bilirubin Urine Negative NEG^Negat 11/16/2018 [facility] raisa 3:14 AM [facility] Ketones Urine Negative NEG^Negat 11/16/2018 [facility] raisa mg/dL 3:14 AM [facility] Specific Fowler 1.004 1.003 - 11/16/2018 [facility] Urine 1.035 3:14 AM [facility] Blood Urine Negative NEG^Negat 11/16/2018 [facility] raisa 3:14 AM [facility] pH Urine 5.5 5.0 - 7.0 11/16/2018 [facility] pH 3:14 AM [facility] Protein Albumin Negative NEG^Negat 11/16/2018 [facility] Urine raisa mg/dL 3:14 AM [facility] Urobilinogen Normal 0.0 - 2.0 11/16/2018 [facility] mg/dL mg/dL 3:14 AM [facility] Nitrite Urine Negative NEG^Negat 11/16/2018 [facility] raisa 3:14 AM [facility] Leukocyte Negative NEG^Negat 11/16/2018 [facility] Esterase Urine raisa 3:14 AM [facility] Source Midstream 11/16/2018 [place] Urine 3:01 AM [facility] WBC Urine 1 0 - 5 11/16/2018 [place] /HPF 3:14 AM [facility] RBC Urine <1 0 - 2 11/16/2018 [place] /HPF 3:14 AM [facility] Bacteria Urine Few (A) NEG^Negat 11/16/2018 [place] raisa /HPF 3:14 AM [facility] Squamous <1 0 - 1 11/16/2018 [place] Epithelial /HPF /HPF 3:14 AM [facility] Specimen (Source) Anatomical Collection Method Collection Time Re ceived Time Location / / Volume Laterality Examination of URINE SPECIMEN / 11/16/2018 3:00 2018 3:06 midstream urine Unknown AM CDT AM CDT specimen (procedure) Torsten Madden MD LAB - URINE ORDERABLES Performing Organization Address City/[facility]/ZIP [facility] Phon e Number [facility] [address], [place] [address] [facility] [address] [address], [facility] [phone] HCG qualitative Blood (11/16/2018 2:16 AM CDT) [facility] Method Time Signature HCG Qualitative Negative NEG^Negati 11/16/2018 [place] Serum ve 2:47 AM [facility] Comment: This test is for screening purposes. ??R esults should be interpreted along with the clinical picture. ??Confirmation te sting is available if warranted by ordering [id number], HCG Quantitative Pregna ncy. Specimen Anatomical Collection Method Collection Time Receive d Time (Source) Location / / Volume Laterality Blood specimen 11/16/2018 2:16 AM 019 2:22 (specimen) CDT AM CDT Torsten Madden MD LAB - BLOOD ORDERABLES Performing Organization Address City/[facility]/ZIP [facility] Phon e Number M [facility] [address], [place] [address] [facility] [address] [address] [facility] [phone] Lipase (11/16/2018 2:16 AM CDT) athologist Signature Lipase 76 73 - 393 11/16/2018 [facility] U/L 2:44 AM [facility] Specimen Anatomical Collection Method Collection Time Receive d Time (Source) Location / / Volume Laterality Blood specimen 11/16/2018 2:16 AM 019 2:22 (specimen) CDT AM CDT Torsten Madden MD LAB - BLOOD ORDERABLES Performing Organization Address City/State/ZIP Code Phon e Number [facility] [address], [place] [address] [facility] [address] [place], [place] [address] [facility] [phone] (ABNORMAL) Comprehensive metabolic panel (11/16/2018 2:16 AM CDT) athologist Signature Sodium 139 133 - 144 11/16/2018 [place] mmol/L 2:36 AM [facility] Potassium 3.7 3.4 - 5.3 11/16/2018 [place] mmol/L 2:36 AM [facility] Chloride 108 94 - 109 11/16/2018 [place] mmol/L 2:36 AM [facility] Carbon Dioxide 25 20 - 32 11/16/2018 [place] mmol/L 2:42 AM [facility] Anion Gap 6 3 - 14 11/16/2018 [place] mmol/L 2:42 AM [facility] Glucose 100 (H) 70 - 99 11/16/2018 [place] mg/dL 2:42 AM [facility] Urea Nitrogen 9 7 - 30 11/16/2018 [place] mg/dL 2:42 AM [facility] Creatinine 0.88 0.52 - 11/16/2018 [facility] 1.04 mg/dL 2:42 AM [facility] GFR Estimate 89 >60 11/16/2018 [place] mL/min/{1. 2:42 AM [facility] 73_m2} [facility] Comment: Non GFR Calc Starting 04/14/2018, serum creatinine ba sed estimated GFR (eGFR) will be calculated using the Chronic Kidney Dise ase Epidemiology Collaboration (CKD-EPI) equation. GFR Estimate If >90 >60 mL/min/{1.73_m2} 11/16/2018 2: 42 AM [facility] Comment: GFR Calc Starting 04/14/2018, serum creatinine ba sed estimated GFR (eGFR) will be calculated using the Chronic Kidney Dise ase Epidemiology Collaboration (CKD-EPI) equation. Calcium 8.7 8.5 - 10.1 mg/dL 11/16/2018 2:42 AM [facility] Bilirubin Total 0.5 0.2 - 1.3 mg/dL 11/16/2018 2:44 AM [facility] Albumin 4.3 3.4 - 5.0 g/dL 11/16/2018 2:44 AM [facility] Protein Total 7.6 6.8 - 8.8 g/dL 11/16/2018 2:44 AM [facility] Alkaline Phosphatase 57 40 - 150 U/L 11/16/2018 2:44 AM [facility] ALT 17 0 - 50 U/L 11/16/2018 2:44 AM [facility] AST 12 0 - 45 U/L 11/16/2018 2:44 AM [facility] Specimen Anatomical Collection Method Collection Time Receive d Time (Source) Location / / Volume Laterality Blood specimen 11/16/2018 2:16 AM 019 2:22 (specimen) CDT AM CDT Torsten Madden MD LAB - BLOOD ORDERABLES Performing Organization Address City/State/ZIP Code Phon e Number [address] [place] [address] [address] [phone] CBC with platelets differential (11/16/2018 2:16 AM CDT) [facility] Method Time Signature WBC 6.2 4.0 - 11/16/2018 [facility] 11.0 2:25 AM [facility] 10e9/L [facility] RBC Count 4.94 3.8 - 5.2 11/16/2018 [place] 10e12/L 2:25 AM [facility] Hemoglobin 15.3 11.7 - 11/16/2018 [facility] 15.7 g/dL 2:25 AM [facility] Hematocrit 44.5 35.0 - 11/16/2018 [facility] 47.0 % 2:25 AM [facility] MCV 90 78 - 100 11/16/2018 [facility] fl 2:25 AM [facility] MCH 31.0 26.5 - 11/16/2018 [facility] 33.0 pg 2:25 AM [facility] MCHC 34.4 31.5 - 11/16/2018 [facility] 36.5 g/dL 2:25 AM [facility] RDW 11.8 10.0 - 11/16/2018 [facility] 15.0 % 2:25 AM [facility] Platelet Count 212 150 - 450 11/16/2018 [facility] 10e9/L 2:25 AM [facility] Diff Method Automated 11/16/2018 [facility] Method 2:25 AM [facility] % Neutrophils 46.3 % 11/16/2018 [facility] 2:25 AM [facility] % Lymphocytes 40.6 % 11/16/2018 [facility] 2:25 AM [facility] % Monocytes 8.4 % 11/16/2018 [facility] 2:25 AM [facility] % Eosinophils 3.9 % 11/16/2018 [facility] 2:25 AM [facility] % Basophils 0.6 % 11/16/2018 [facility] 2:25 AM [facility] % Immature 0.2 % 11/16/2018 [facility] Granulocytes 2:25 AM [facility] Nucleated RBCs 0 0 /100 11/16/2018 [facility] 2:25 AM [facility] Absolute 2.9 1.6 - 8.3 11/16/2018 [facility] Neutrophil 10e9/L 2:25 AM [facility] Absolute 2.5 0.8 - 5.3 11/16/2018 [facility] Lymphocytes 10e9/L 2:25 AM [facility] Absolute 0.5 0.0 - 1.3 11/16/2018 [facility] Monocytes 10e9/L 2:25 AM [facility] Absolute 0.2 0.0 - 0.7 11/16/2018 [facility] Eosinophils 10e9/L 2:25 AM [facility] Absolute 0.0 0.0 - 0.2 11/16/2018 [place] Basophils 10e9/L 2:25 AM [facility] Abs Immature 0.0 0 - 0.4 11/16/2018 [place] Granulocytes 10e9/L 2:25 AM [facility] Absolute 0.0 11/16/2018 [place] Nucleated RBC 2:25 AM [facility] Specimen Anatomical Collection Method Collection Time Receive d Time (Source) Location / / Volume Laterality Blood specimen 11/16/2018 2:16 AM 019 2:22 (specimen) CDT AM CDT Torsten Madden MD LAB - BLOOD ORDERABLES Performing Organization Address City/State/ZIP Code Phon e Number [address] [place] [address] [facility] [address] [phone] documented in this encounter Visit Diagnoses Diagnosis [...] minutes. documented in this encounter Care Teams Radio Control Crane Operator Relationship Specialty Start Date End Date No Ref-Primary, Physician PCP - General 11/16/18 documented as of this encounter
--- OUTSIDE RECORDS SUMMARY | 2022-03-28 13:28 | XMS_ITS | Encounter Summary ---
:1990 Author Organization [facility] Address [address] [place] [address] Care Team Providers Name Role Phone Brisa Smith PA-C Primary Care Provider Reason for Visit Reason Comments Medication Questions Encounter Details Date Type Department Care Team Description 09/02/2011 Telephone [facility] Jasmin Whitmore Medication Questions [id number] [place] [address] Social History Tobacco Use [...] on filedocumented in this encounter Care Teams Railroad Carman Relationship Specialty Start Date End Date Brisa Smith PA-C PCP - General 07/30/10 04/18/15 [address] [place] [address] documented as of this encounter
--- OUTSIDE RECORDS SUMMARY | 2022-03-28 13:28 | XMS_ITS | Encounter Summary ---
:1990 Author Organization [facility] Address [address] [place] [address] Care Team Providers Name Role Phone Brisa Smith PA-C Primary Care Provider Encounter Details Date Type Department Care Team Description 08/27/2010 PN Conversion Only CONVERSION CONVERSION Lena Chiu, AUTO BODY DETAILER, TRAIN ENGINEER [address] [place], [place] [address] (Wo rk) Social History Tobacco Use Types Packs/Day Years Used Date Smoking Tobacco: Never Assessed Sex Assigned at Date Recorded Not on file documented as of this encounter Plan of Treatment Not on filedocumented as of this encounter Visit Diagnoses Not on filedocumented in this encounter Care Teams Cross Tie Tram Loader Relationship Specialty Start Date End Date Brisa Smith PA-C PCP - General 07/30/10 04/18/15 [address] [place] [address] documented as of this encounter
--- OUTSIDE RECORDS SUMMARY | 2022-03-28 13:28 | XMS_ITS | Encounter Summary ---
:1990 Author Organization [facility] Address [address] [place] [address] Care Team Providers Name Role Phone Found, No Pcp MD Primary Care Provider Unavailable Reason for Visit Reason Comments PAIN, MOUTH Encounter Details Date Type Department Care Team Description 11/13/[address] [facility] Eber Reyes, Dental infection Care [place] [address] [address] [facility] [phone] [place], [place] [id number] Social History Tobacco Use Types Packs/Day Years [...] your doctor if you can take an gtxw-kme-zmhhmgx medicine. ?? Take your antibiotics as directed. Do not stop taking them just because you feel better. You needto take the full course of antibiotics. To prevent tooth abscess ?? [place] and floss every day, and have regular [...] can you learn more? 1. Go to https://PointsHound.NewsFixed/Templafylibrary or Classting/GANTEClibrary. 2. Enter L466 in the search box. Current as of: January 28, 2018 Content Version: 12.0 ?? 2008-2508 Weever Apps. Care instructions adapted under license by your healthcare professional. If you have questions about a medical condition or this instruction, always ask your healthcare professional. Weever Apps disclaims any warranty or liability for your [...] medical conditions. Adverse Drug Reactions: Reviewed in [facility] Penicillins and Sulfa antibiotics Medications: Reviewed in [facility] No current facility-administered medications for [...] Tablet 0 Past Medical History: Reviewed in [facility] Past Medical History: Diagnosis Date ??? Varicella OBJECTIVE: Vital Signs: Reviewed in [facility] Filed Vitals: 11/13/18 0806 BP: [...] trismus. Lymph: No submandibular or cervical chain builder [place]. Cardiac: rrr. ASSESSMENT: 1. Dental infection [...] worse. documented in this encounter Care Teams Hog Sticker Relationship Specialty Start Date End Date Found, No Pcp, PCP - General 05/02/15 [address] [place] [address] documented as of this encounter
--- OUTSIDE RECORDS SUMMARY | 2022-03-28 13:28 | XMS_ITS | Encounter Summary ---
:1990 Author Organization [facility] Address [address] [place] [address] Care Team Providers Name Role Phone Brisa Smith PA-C Primary Care Provider Reason for Visit Reason Comments Sinus Problem Encounter Details Date Type Department Care Team Description 04/19/2011 Office Visit [facility] Chet Pandya M D Acute pharyngitis Medicine [address] (Primary Dx) [address] [place] [phone] Social History Tobacco Use Types Packs/Day Years Used Date Smoking Tobacco: Never Assessed Sex Assigned at Date Recorded Not on file documented as of this encounter Last Filed Vital Signs Vital Sign Reading Time Taken Comments Blood Pressure 121/69 04/19/2011 9:37 AM MEDICAL MANAGEMENT SPECIALIST Pulse 87 04/19/2011 9:37 AM MEDICAL MANAGEMENT SPECIALIST Temperature 36.9 ??C (98.4 ??F) 04/19/2011 9:37 AM MEDICAL MANAGEMENT SPECIALIST Respiratory Rate 16 04/19/2011 9:37 AM MEDICAL MANAGEMENT SPECIALIST Oxygen Saturation - - Inhaled Oxygen Concentration - - Weight 70.3 kg (155 lb) 04/19/2011 9:37 AM MEDICAL MANAGEMENT SPECIALIST Height - - Body Mass Index 23.57 [...] 04/19/2011 10:19 AM R esults for this MEDICAL MANAGEMENT SPECIALIST procedure are i n the results section. RAPID STREP SCREEN Routine 04/19/2011 9:56 AM Acute pharyngiti s Results for this WAIVED MEDICAL MANAGEMENT SPECIALIST procedure are i n the results section. documented in this encounter Results Beta Strep Followup (04/19/2011 10:19 AM MEDICAL MANAGEMENT SPECIALIST) [facility] Method Time Signature Strep Screen No [...] / Volume Laterality Throat: 04/19/2011 10:19 AM MEDICAL MANAGEMENT SPECIALIST Chet Pandya MD LAB_1 Performing Organization Address City/State/ZIP Code Phon e Number HP CONVERSION Rapid Strep Screen Waived (04/19/2011 9:56 AM MEDICAL MANAGEMENT SPECIALIST) Component Value Ref Test Analysis Performed At [facility] Range Method Time Signature Rapid Strep [...] / Volume Laterality Throat: 04/19/2011 9:56 AM MEDICAL MANAGEMENT SPECIALIST Narrative HP CONVERSION - 04/19/2011 10:20 AM MEDICAL MANAGEMENT SPECIALIST Performed at [facility], [address] [place] [address] Chet Pandya MD LAB_1 Performing Organization Address City/State/ZIP Code Phon e Number HP CONVERSION documented in this encounter Visit Diagnoses Diagnosis Acute pharyngitis - Primary documented in this encounter Care Teams Rubber Flap Tuber Machine Operator Relationship Specialty Start Date End Date Brisa Smith PA-C PCP - General 07/30/10 04/18/15 [address] [place] [address] documented as of this encounter
--- OUTSIDE RECORDS SUMMARY | 2022-03-28 13:28 | XMS_ITS | Encounter Summary ---
:1990 Author Organization [facility] Address [address] [place] [address] Care Team Providers Name Role Phone Found, No Pcp MD Primary Care Provider Unavailable Reason for Visit Reason Comments Forms outside records-[place], [place] Encounter Details Date Type Department Care Team Description 03/19/2019 Care Coord [facility] Hieronimus, Forms (ou tside Documentation Services-CRABBING MACHINE OPERATOR Josephine Bingham MD records-[facility] [address] [place] [address], [address]) [place] [address] [phone] Social History Tobacco Use Types Packs/Day Years [...] fax, placed on provider desk for review. GER LOADER documented in this encounter Plan of Treatment Not on filedocumented as of this encounter Visit Diagnoses Not on filedocumented in this encounter Care Teams Group Leader Wafer Polishing Relationship Specialty Start Date End Date Found, No Pcp, PCP - General 05/02/15 [address] [place] [address] documented as of this encounter
--- OUTSIDE RECORDS SUMMARY | 2022-03-28 13:28 | XMS_ITS | Encounter Summary ---
:1990 Author Organization [facility] Address [address], [place] [address] Care Team Providers Name Role Phone Brisa Smith PA-C Primary Care Provider Reason for Visit Reason Comments Other Encounter Details Date Type Department Care Team Description 11/02/2008 Telephone [facility], Message Other [address] [place], [place] [address] Social History Tobacco Use Types Packs/Day Years Used Date Smoking Tobacco: Never Assessed Sex Assigned at Date Recorded Not on file documented as of this encounter [facility], Message - 11/02/2008 10:32 AM CDT Phone Note filed by [employer]ize at 08/17/1051 Author: [employer] Service: (none) Author Type: (none) Filed: 08/17/10 0651 Note Time: 11/02/08 103 Status: Signed Sales Supervisor: [employer] (Resource) Front Line Sx Call Caller Name/Relationship:Hellen Primary Customer Professional: Symptom or request? sores in mouth/under tongue since Friday, tongue feels swollen Is appointment scheduled & when? Negative Retoucher:Hellen Best call back number:[phone] Is it OK to leave a confidential message on this voicemail? h *ECODE~PNSX2 Created on 02Nov2008 10:32am by BHARATHI DESHPANDE K On [id number] 10:58am CAROLYN BROWN wrote: CLINICIAN FOLLOW-UP: FYI (note is complete). IMPRESSION: mouth sores/? Fdjc-Hdav-byg-Mouth Disease. SYMPTOMS: Pt is 18 yr old [...] medical record. CARE ADVICE: Care Advice REASSURANCE: Ztvn-voph-tmbhr disease is a harmless viral rash. LIQUID [...] denies additional questions. References Used: Pediatric Telephone Protocols--Odgd-Qfkw-dvq-Mouth Disease. Call Complete. *SH~BS~HANDFOOTMTH ~ CTOR OF SUSTAINABLE DESIGN documented in this encounter Plan of Treatment Not on filedocumented as of this encounter Visit Diagnoses Not on filedocumented in this encounter Care Teams Metal Tile Lather Relationship Specialty Start Date End Date Brisa Smith PA-C PCP - General 07/30/10 04/18/15 [address] [place] [address] documented as of this encounter
--- OUTSIDE RECORDS SUMMARY | 2022-03-28 13:28 | XMS_ITS | Encounter Summary ---
:1990 Author Organization [facility] Address [address] [place] [address] Care Team Providers Name Role Phone Brisa Smith PA-C Primary Care Provider Encounter Details Date Type Department Care Team Description 11/02/2009 Office Visit [facility] [place] [id number] [place] [address] Social History Tobacco Use Types Packs/Day [...] 0135 Note Time: 11/02/09 0001 Status: Signed Clinical Outcomes Manager: Niraj Dawson MD (Physician) NAME: MINO POSADAS MR#: [id number] ACCT: [id number] VISIT: [id number] DICTATING CLINICIAN: Niraj Dawson MD CONFIRM #: [id number] LOC: 520 CLINIC PROGRESS NOTE DATE OF VISIT: 11/02/2009 SUBJECTIVE: : 1990. Patient is a 19-year-old here with chief complaint of sore throat, cough, ear pain. 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 [id number] C: 11/03/09 13:44 CONFIRM #: [id number] documented in this encounter Plan of Treatment Not on filedocumented as of this encounter Visit Diagnoses Not on filedocumented in this encounter Care Teams Language And Literature Division Chair Relationship Specialty Start Date End Date Brisa Smith PA-C PCP - General 07/30/10 04/18/15 [address] [place] [address] documented as of this encounter
--- OUTSIDE RECORDS SUMMARY | 2022-03-28 13:28 | XMS_ITS | Encounter Summary ---
:1990 Author Organization [place] Address [address] [place] [address] Care Team Providers Name Role Phone Unavailable [...] Procedure Name Priority Date/Time Associated Diagnosis Comme [facility] CHEST TWO VIEWS, STAT 12/28/2003 12:40 [...]
--- OUTSIDE RECORDS SUMMARY | 2022-03-28 13:28 | XMS_ITS | Encounter Summary ---
:1990 Author Organization [facility] Address [address] [place] [address] Care Team Providers Name Role Phone Unavailable [...] No unusual pets. No travel to the [facility]. No unusual molds in the house. No [...] concern. EM126_ RANJITH DIAZ MD MT: Document: [id number] [place], [place] Name: MINO POSADAS EMERGENCY ROOM ENCOUNTER Page 2 of 2 LCN: ERC DSC: 12/27/2003 [place], [place] Name: MR#: : Admit Date: MINO POSADAS -33 1990 12/27/2003 Doctor: RANJITH DIAZ MD EMERGENCY ROOM ENCOUNTER Page 1 of 2 documented in this encounter Plan of Treatment Not on filedocumented as of this encounter Visit Diagnoses Not on filedocumented in this encounter
--- OUTSIDE RECORDS SUMMARY | 2022-03-28 13:29 | XMS_ITS | Encounter Summary ---
:1990 Author Organization [facility] Address [address] [place] [address] Care Team Providers Name Role Phone Brisa Smith PA-C Primary Care Provider Encounter Details Date Type Department Care Team Description 09/07/2007 PN Conversion Only [place] CONVERSION Brisa Smith, [address] [place] [address] 67[address] [place], [place] [address] (Wo rk) Social History [...] Complete Blood Count-W/Diff (09/07/2007 2:12 PM CDT) [facility] Method Time Signature White Blood Cell [...] - HP CONVERSION Hemoglobin Conc 36.5 gm/dL [place] RDW 12.6 11.0 - HP CONVERSION 15.0 [...] Brisa Smith PA-C LAB_1 Performing Organization Address City/[facility]/ZIP Code Phon e Number HP CONVERSION [...] Specific 1.015 1.005 - 25 HP CONVERSION Cutler Specimen (Source) Anatomical Collection Method Collection Time Re ceived Time Location / / Volume Laterality 09/07/2007 2:12 PM CDT Brisa Smith PA-C LAB_1 Performing Organization Address City/[facility] Phon e Number HP CONVERSION Urinalysis Microscopic (09/07/2007 2:12 PM CDT) [facility] Method Time Signature White Blood 0-2/HPF 0 - 3 HP CONVERSION Cells Urine Red Blood Cells Negative 0 - 2 HP CONVERSION Urine Epithelial Few Few /HPF HP CONVERSION Cells Crystals Amorph None HP CONVERSION Specimen (Source) Anatomical Collection Method Collection Time Re ceived Time Location / / Volume Laterality 09/07/2007 2:12 PM CDT Brisa Smith PA-C LAB_1 Performing Organization Address City/[facility] Phon e Number HP CONVERSION documented in this encounter Visit Diagnoses Not on filedocumented in this encounter Care Teams Education Rn Relationship Specialty Start Date End Date Brisa Smith PA-C PCP - General 07/30/10 04/18/15 [address] [place] [address] documented as of this encounter
--- OUTSIDE RECORDS SUMMARY | 2022-03-28 13:29 | XMS_ITS | Encounter Summary ---
:1990 Author Organization [facility] Address [address] [place] [address] Care Team Providers Name Role Phone Brisa Smith PA-C Primary Care Provider Encounter Details Date Type Department Care Team Description 07/12/2008 Office Visit Rocio Griffiths [facility] [address] [place] [address] [place] [address] [place] [address] [phone] (Wo rk) Social History Tobacco Use Types [...] Service: (none) Author Type: Physician Filed: 08/18/10 4545 Note Time: 07/12/08 0001 Status: Signed Shaper Set Up Operator: ZAK Giles (Physician) NAME: MINO POSADAS MR#: [id number] ACCT: [id number] VISIT: [id number] DICTATING CLINICIAN: Rocio Bermudez MD CONFIRM #: [id number] LOC: 1702 CLINIC PROGRESS NOTE DATE OF [...] was agreeable with plan. PLAN: See assessment. [id number] C: 07/12/08 13:15 CONFIRM #: [id number] documented in this encounter Plan of Treatment Not on filedocumented as of this encounter Visit Diagnoses Not on filedocumented in this encounter Care Teams Inspectors And Regulatory Officers Relationship Specialty Start Date End Date Brisa Smith PA-C PCP - General 07/30/10 04/18/15 [address] [place] [address] documented as of this encounter
--- OUTSIDE RECORDS SUMMARY | 2022-03-28 13:29 | XMS_ITS | Encounter Summary ---
:1990 Author Organization [facility] Address [address] [place] [address] Care Team Providers Name Role Phone Brisa Smith PA-C Primary Care Provider Encounter Details Date Type Department Care Team Description 09/30/2007 PN Conversion Only [place] CONVERSION Brisa Smith, [address] [address] [place], [place] [address] (Wo rk) Social History [...] on filedocumented in this encounter Care Teams Guideman Relationship Specialty Start Date End Date Brisa Smith PA-C PCP - General 07/30/10 04/18/15 [address] [place] [address] documented as of this encounter
--- OUTSIDE RECORDS SUMMARY | 2022-03-28 13:29 | XMS_ITS | Encounter Summary ---
:1990 Author Organization [facility] Address [address] [place] [address] Care Team Providers Name Role Phone Lynette Smith PA-C Primary Care Provider Encounter Details Date Type Department Care Team Description [facility]/07[facility] [address] [address] [address] [place], [place] [address] (Wo rk) Social History [...] Smith PA-C Service: (none) Author Type: Physician Tread Cutter Filed: 08/18/10 0546 Note Time: 09/07/07 0001 Status: Signed Nurse Aide: Lynette Smith PA-C (Physician Tread Cutter) NAME: MINO POSADAS MR#: [id number] ACCT: [id number] VISIT: [id number] DICTATING CLINICIAN: LYNETTE SMITH PA-C JOB: [id number] LOC: 1702 CLINIC PROGRESS NOTE DATE OF VISIT: 09/07/2007 SUBJECTIVE: Mino is 17 years old and presents to the clinic today for a sports physical and immunization update. She will be attending [employer] next year. She will also be on the track team. HEAT TREAT SUPERVISOR HISTORY: Periods are currently regular, not sexually [...] cardiac or cancer. SOCIAL HISTORY: She attends [employer]. Does not smoke, drink alcohol, or use [...] or problems. IMPRESSION: Routine health maintenance examination. [id number]:[id number] C: 09/09/07 14:31 DOCUMENT: [id number] documented in this encounter Plan of Treatment Not on filedocumented as of this encounter Visit Diagnoses Not on filedocumented in this encounter Care Teams Cushion Builder Relationship Specialty Start Date End Date Lynette Smith PA-C PCP - General 07/30/10 04/18/15 [address] [place] [address] documented as of this encounter
--- OUTSIDE RECORDS SUMMARY | 2022-03-28 13:29 | XMS_ITS | Encounter Summary ---
:1990 Author Organization [facility] Address [address] [place] [address] Care Team Providers Name Role Phone Brisa Smith PA-C Primary Care Provider Encounter Details Date Type Department Care Team Description 04/17/2007 Office Visit [facility] Candis Hagen PA-C [address] [employer] [facility] [address] [place] [id number] [place] [address] [phone] (Wo rk) Social History Tobacco Use Types Packs/Day Years Used Date Smoking Tobacco: Never Assessed Sex Assigned at Date Recorded Not on file documented as of this encounter Last Filed Vital Signs Vital Sign Reading Time Taken Comments Blood Pressure 104/56 04/17/2007 8:00 AM DEMAND PLANNING ANALYST Pulse - - Temperature - - Respiratory Rate - - Oxygen Saturation - - Inhaled Oxygen Concentration - - Weight 66.2 kg (145 lb 15.8 oz) 04/17/2007 8:00 AM DEMAND PLANNING ANALYST C: 66.2kg Height - - Body Mass Index - - documented in this encounter Progress Notes Candis Lang PA-C - 04/17/2007 12:01 AM CST Progress Notes signed by Candis Lang PA-C at 04/24/07 1424 Author: Candis Lang PA-C Service: (none) Author Type: Physician Engine Lathe Set Up Operator Filed: 08/18/10 0116 Note Time: 04/17/07 0001 Status: Signed Buffer Copper: Candis Lang PA-C (Physician Engine Lathe Set Up Operator) NAME: MINO POSADAS MR#: [id number] ACCT: [id number] VISIT: [id number] DICTATING CLINICIAN: THELMA HERNANDEZ JOB: [id number] LOC: 502 CLINIC PROGRESS NOTE DATE OF [...] is not affective, she will follow up. [id number] C: 04/20/07 15:38 DOCUMENT: [id number] [place] PLANNING ANALYST documented in this encounter Plan of Treatment Not on filedocumented as of this encounter Visit Diagnoses Not on filedocumented in this encounter Care Teams Java J2Ee Technical Lead Relationship Specialty Start Date End Date Brisa Smith PA-C PCP - General 07/30/10 04/18/15 [address] [place] [address] documented as of this encounter
--- OUTSIDE RECORDS SUMMARY | 2022-03-28 13:29 | XMS_ITS | Encounter Summary ---
:1990 [facility] Address [address] [place] [address] Care Team Providers Name Role Phone Brisa Smith PA-C Primary Care Provider Encounter Details Date Type Department Care Team Description 01/17/2007 Office Visit [facility] [place] [id number] [place] [address] [phone] Social History Tobacco Use Types Packs/Day Years [...] 2314 Note Time: 01/17/07 0001 Status: Signed Associate Professor Of Mathematics: Jagdeep Kwok MD (Physician) NAME: MINO POSADAS MR#: [id number] ACCT: [id number] VISIT: [id number] DICTATING CLINICIAN: Jagdeep Kwok MD JOB: [id number] LOC: 520 CLINIC PROGRESS NOTE DATE OF [...] Zithromax was given for the second week. [id number]:[id number] C: 01/18/07 18:42 DOCUMENT: [id number] documented in this encounter Plan of Treatment Not on filedocumented as of this encounter Visit Diagnoses Not on filedocumented in this encounter Care Teams Keyboarding Teacher Relationship Specialty Start Date End Date Brisa Smith PA-C PCP - General 07/30/10 04/18/15 [address] [place] [address] documented as of this encounter
--- OUTSIDE RECORDS SUMMARY | 2022-03-28 13:29 | XMS_ITS | Encounter Summary ---
:1990 Author Organization [employer] Address [address] [place] [address] Care Team Providers Name Role Phone Brisa Smith PA-C Primary Care Provider Encounter Details Date Type Department Care Team Description 11/25/2006 Office Visit Rahat Mckeon PA-C [facility] [employer] [facility] [place] [address] [place] [address] [phone] (Wo rk) Social History Tobacco Use Types [...] Mix PA-C Service: (none) Author Type: Physician Educational Therapy Teacher Filed: 08/17/10 2207 Note Time: 11/25/06 0001 Status: Signed Loan Consultant: Rahat Mix PA-C (Physician Educational Therapy Teacher) Preventive Exam & Pelvic IMPRESSION: Routine preventive [...] current method of contraception Past Medical History: Hostel Manager History: Pt. has never been . [...] and updated on the Health Profile of [facility]. Current Medications: Reviewed today and updated on Health Profile in [employer]. Family History: (First degree family members) Asthma. Social History: Employment status: Student. Marital Status: Single. 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 She will play volleyball and [...] adenopathy. Pelvic: Normal external genitalia and urethra. [place], moist vaginal and cervical mucosa, without lesions. [...] on filedocumented in this encounter Care Teams Cardiac Specialist Relationship Specialty Start Date End Date Brisa Smith PA-C PCP - General 07/30/10 04/18/15 [address] [place] [address] documented as of this encounter
--- OUTSIDE RECORDS SUMMARY | 2022-03-28 13:29 | XMS_ITS | Encounter Summary ---
:1990 Author Organization [facility] Address [address] [place] [address] Care Team Providers Name Role Phone Brisa Smith PA-C Primary Care Provider Encounter Details Date Type Department Care Team Description 07/11/2007 Office Visit [facility] [place] [address] [place] [address] Social History Tobacco Use Types [...] 0320 Note Time: 07/11/07 0001 Status: Signed Citrus Peeler: Roxanne Flores MD (Physician) NAME: MINO POSADAS MR#: [id number] ACCT: [id number] VISIT: [id number] DICTATING CLINICIAN: ROXANNE FLORES MD JOB: [id number] LOC: 520 CLINIC PROGRESS NOTE DATE OF [...] recommend symptomatic treatment, and recheck as needed. [id number] C: 07/13/07 12:26 DOCUMENT: [id number] documented in this encounter Plan of Treatment Not on filedocumented as of this encounter Visit Diagnoses Not on filedocumented in this encounter Care Teams Fire Equipment Inspector Helper Relationship Specialty Start Date End Date Brisa Smith PA-C PCP - General 07/30/10 04/18/15 [address] [place] [address] documented as of this encounter
--- OUTSIDE RECORDS SUMMARY | 2022-03-28 13:29 | XMS_ITS | Encounter Summary ---
:1990 Author Organization [facility] Address [address] [place] [address] Care Team Providers Name Role Phone Lynetet Smith PA-C Primary Care Provider Reason for Visit Reason Comments Other Encounter Details Date Type Department Care Team Description 09/23/2007 Telephone [facility] Amos e Lynette Smith PA-C Other [facility] [place] [address] [place] [address] [phone] (Wo rk) Social History Tobacco Use Types Packs/Day Years Used Date Smoking Tobacco: Never Assessed Sex Assigned at Date Recorded Not on file documented as of this encounter Progress Notes Center, Message - 09/23/2007 10:58 AM CDT Phone Note filed by [employer] at 08/15/102145 Author: [employer] Service: (none) Author Type: (none) Filed: 08/15/102145 Note Time: 09/23/071057 Status: Signed Infrastructure Technician: [employer] Lab/Radiology Results Caller Name/Relationship:mom Primary Chemical Operations Specialist:manuel What test result is needed?sickle cell When and where was test done?09/06 ludy Who ordered the test?manuel Operations Processor: Best call back number:[phone] Is it OK to leave a confidential [...] Acknowledged by LYNETTE SMITH on 3:08pm ING EQUIPMENT OPERATOR documented in this encounter Plan of Treatment Not on filedocumented as of this encounter Visit Diagnoses Not on filedocumented in this encounter Care Teams Finance Professor Relationship Specialty Start Date End Date Lynette Smith PA-C PCP - General 07/30/10 04/18/15 [address] [place] [address] documented as of this encounter
--- OUTSIDE RECORDS SUMMARY | 2022-03-28 13:29 | XMS_ITS | Encounter Summary ---
:1990 Author Organization [facility] Address [address], [place] [address] Care Team Providers Name Role Phone Brisa Smith PA-C Primary Care Provider Encounter Details Date Type Department Care Team Description 07/16/2006 PN Conversion Only [place] CONVERSION Ralph, [address] APRN, [place] [address] [address] [place] [phone] (Wo rk) Social History Tobacco Use Types [...] 12:43 PM CDT) Analysis [facility] Time Signature Strep Group A Negative Negative HP CONVERSION Antigen Test Comment: Culture to follow. Specimen (Source) Anatomical Collection Method Collection Time Re ceived Time Location / / Volume Laterality 07/16/2006 12:43 PM CDT Lillian Rosas APRN, SOFTWARE TEST SPECIALIST LAB_1 Performing Organization Address City/State/ZIP Code Phon e Number HP CONVERSION Beta Strep Followup (07/16/2006 12:43 PM CDT) P athologist Signature Strep Screen SEE TEXT HP CONVERSION Comment: Patient: MINO POSADAS Rapid Strep Follow up Culture @ ? Collected: ??[id number] ??[id number] Source: Throat ?Processed: ??[id number] ??1247 Final Report ------ ?[id number] ??[id number] No beta hemolytic Strep group A isolated . @ = Rapid F/U Cult Performed at ??[address] [facility] [place] ?[address] Specimen (Source) Anatomical Collection Method Collection Time Re ceived Time Location / / Volume Laterality 07/16/2006 12:43 PM CDT Lillian Rosas [employer], SOFTWARE TEST SPECIALIST LAB_1 Performing Organization Address City/[facility]/ZIP Code Phon e Number HP CONVERSION documented in this encounter Visit Diagnoses Not on filedocumented in this encounter Care Teams Military Pay Clerk Relationship Specialty Start Date End Date Brisa Smith PA-C PCP - General 07/30/10 04/18/15 [address] [place] [address] documented as of this encounter
--- OUTSIDE RECORDS SUMMARY | 2022-03-28 13:29 | XMS_ITS | Encounter Summary ---
:1990 Author Organization [facility] Address [address] [place] [address] Care Team Providers Name Role Phone Brisa Smith PA-C Primary Care Provider Encounter Details Date Type Department Care Team Description 11/02/2008 Office Visit [facility] Amos e Brisa Smith PA-C [address] [place], [place] [address]za [address] [address] [place], [place] [address] (Wo rk) Social History [...] Gastony, PA-C Service: (none) Author Type: Physician Radio Sportscaster Filed: 08/18/10 1626 Note Time: 11/02/08 0001 Status: Signed Palm Gatherer: Brisa Smith PA-C (Resource) Subjective: This is [...] anti-inflammatory medications. She is not tried any ekhh-sni-ehdzddn products. Food aggravates her symptoms causing her to have some sharp discomfort in the midepigastric area. She denies heartburn, melena, or hematochezia. Past medical history: Reviewed in [facility] health profile Social history: Nonsmoker Review [...] filedocumented in this encounter Care Teams Cook Roast Relationship Specialty Start Date End Date Brisa Smith PA-C PCP - General 07/30/10 04/18/15 [address] [place] [address] documented as of this encounter
--- OUTSIDE RECORDS SUMMARY | 2022-03-28 13:29 | XMS_ITS | Encounter Summary ---
:1990 Author Organization [facility] Address [address], [place] [address] Care Team Providers Name Role Phone Brisa Smith PA-C Primary Care Provider Encounter Details Date Type Department Care Team Description 11/25/2006 PN Conversion Only Rahat Booth PA-C [address] [place] [address] [place] [address] (Wo rk) Social History Tobacco Use Types [...] Transmitted Disease Probe (11/25/2006 2:36 PM CDT) [facility] Method Time Signature Sexually SEE TEXT HP CONVERSION Transmitted Disease Probe Comment: Patient: MINO POSADAS Sexually Trans Disease Probe @ ?Collected: ??[id number] ??[id number] Source: ENDOCERV ?Processed: ??[id number] ??[id number] Final Report ------ ?[id number] ??1241 No Chlamydia trachomatis detected by amp lified DNA assay No Neisseria gonorrhoeae detected by amp lified DNA assay The [employer] Amplified DNA assay is amadou red by the FDA for non-medicolegal diagnostic testing in the adult population. @ = Sexually Trans Disease Probe Perform ed at ??[address] [facility] [place] [address] Specimen (Source) Anatomical Collection Method Collection Time Re ceived Time Location / / Volume Laterality 11/25/2006 2:36 PM CDT Rahat Mix PA-C LAB_1 Performing Organization Address City/[facility] Code Phon e Number HP CONVERSION [...] Rahat Mix PA-C LAB_1 Performing Organization Address [facility] Code Phon e Number HP CONVERSION Hemoglobin, Blood (11/25/2006 12:12 PM CDT) athologist Signature Hemoglobin 15.0 12.0 - 16.0 HP CONVERSION gm/dL Specimen (Source) Anatomical Collection Method Collection Time Re ceived Time Location / / Volume Laterality 11/25/2006 12:12 PM CDT Rahat Mix PA-C LAB_1 Performing Organization Address [facility] Phon e Number HP CONVERSION Pap Smear (11/25/2006 12:00 PM CDT) [facility] Method Time Signature PAP Smear SEE TEXT No normal HP CONVERSION Liquid Based range Comment: Patient: MINO POSADAS ? CERVICAL CYTOLOGY REPORT Pathology # ??[id number] ?Date Obtained: ? Date Received: CYTOLOGIC IMPRESSION: [...] on filedocumented in this encounter Care Teams Remote Sensing Technologist Relationship Specialty Start Date End Date Brisa Smith PA-C PCP - General 07/30/10 04/18/15 [address] [place], [place] [address] documented as of this encounter
--- OUTSIDE RECORDS SUMMARY | 2022-03-28 13:29 | XMS_ITS | Encounter Summary ---
:[address] [facility] Address [address] [address] Care Team Providers Name Role Phone Brisa Smith PA-C Primary Care Provider Encounter Details Date Type Department Care Team Description 07/11/2007 PN Conversion Only [place] CON[facility]O Roxanne Perera, [address] [place] [address] Social History Tobacco Use Types Packs/Day Years [...] Rapid Strep Follow up Culture ? Collected: ??[id number] ??[id number] Source: Throat ?Processed: ??[id number] ??1502 ? 1V Final Report ------ ?[id number] ??0756 No beta hemolytic Strep group A isolated . Specimen (Source) Anatomical Collection Method Collection Time Re ceived Time Location / / Volume Laterality 07/11/2007 2:42 PM CDT Roxanne Serrato MD LAB_1 Performing Organization Address City/State/ZIP Code Phon e Number HP CONVERSION documented in this encounter Visit Diagnoses Not on filedocumented in this encounter Care Teams Chainstitch Felled Seam Operator Relationship Specialty Start Date End Date Brisa Smith PA-C PCP - General 07/30/10 04/18/15 [address] [place] [address] documented as of this encounter
--- OUTSIDE RECORDS SUMMARY | 2022-03-28 13:29 | XMS_ITS | Encounter Summary ---
:1989 Author Organization [facility] Address [address] [place] [address] Care Team Providers Name Role Phone Brisa Smith PA-C Primary Care Provider Encounter Details Date Type Department Care Team Description 11/02/2008 PN Conversion Only [place] CONVERSION Brisa Smith, [address] [address] [place], [place] [address] (Wo rk) Social History [...] Helicobacter Pylori IGG (11/02/2008 11:48 AM CDT) [facility] gist Method Time Signature Helicobacter Negative [...] on filedocumented in this encounter Care Teams Tool Repair Technician Relationship Specialty Start Date End Date Brisa Smith PA-C PCP - General 07/30/10 04/18/15 [address] [place] [address] documented as of this encounter
--- OUTSIDE RECORDS SUMMARY | 2022-03-28 13:29 | XMS_ITS | Encounter Summary ---
:1989 Author Organization [facility] Address [address] [place] [address] Care Team Providers Name Role Phone Brisa Smith PA-C Primary Care Provider Encounter Details Date Type Department Care Team Description 09/02/2008 Office Visit Rocio Griffiths MBBS [facility] [place] [address] [place] [address] [place] [address] [phone] (Wo rk) Social History Tobacco Use Types [...] Service: (none) Author Type: Physician Filed: 08/18/10 7584 Note Time: 09/02/082016 Status: Signed Department Specialist: ZAK Giles (Physician) SUBJECTIVE: 17-year-old patient with [...] on filedocumented in this encounter Care Teams Drafter Castings Relationship Specialty Start Date End Date Brisa Smith PA-C PCP - General 07/30/10 04/18/15 [address] [place] [address] documented as of this encounter
--- OUTSIDE RECORDS SUMMARY | 2022-03-28 13:29 | XMS_ITS | Encounter Summary ---
:1989 Author Organization [facility] Address [address] [place] [address] Care Team Providers Name Role Phone Brisa Smith PA-C Primary Care Provider Encounter Details Date Type Department Care Team Description 09/07/2007 PN Conversion Only [place] CONVERSION [address] [place] [address] Social History Tobacco Use Types Packs/Day Years Used Date Smoking Tobacco: Never Assessed Sex Assigned at Date Recorded Not on file documented as of this encounter Plan of Treatment Not on filedocumented as of this encounter Visit Diagnoses Not on filedocumented in this encounter Care Teams Activity Manager Relationship Specialty Start Date End Date Brisa Smith PA-C PCP - General 07/30/10 04/18/15 [address] [place] [address] [place], [place] [address] documented as of this encounter
--- OUTSIDE RECORDS SUMMARY | 2022-03-28 13:29 | XMS_ITS | Encounter Summary ---
:1989 Author Organization [facility] Address [address] [place] [address] Care Team Providers Name Role Phone Brisa Smith PA-C Primary Care Provider Encounter Details Date Type Department Care Team Description 03/11/2007 Nursing Visit Darryn Diaz MD [facility] [address] [place] [address] [place] [address] [place] [address] [phone] (Wo rk) Social History Tobacco Use Types Packs/Day Years Used Date Smoking Tobacco: Never Assessed Sex Assigned at Date Recorded Not on file documented as of this encounter Plan of Treatment Not on filedocumented as of this encounter Visit Diagnoses Not on filedocumented in this encounter Care Teams Press Setup Operator Relationship Specialty Start Date End Date Brisa Smith PA-C PCP - General 07/30/10 04/18/15 [address] [place], [place] [address] documented as of this encounter
--- OUTSIDE RECORDS SUMMARY | 2022-03-28 13:30 | XMS_ITS | Encounter Summary ---
:1989 Author Organization [facility] Address [address] [place] [address] Care Team Providers Name Role Phone Brisa Smith PA-C Primary Care Provider Encounter Details Date Type Department Care Team Description 07/02/2005 Office Visit [facility]V [place] [facility] Sussy Enciso, [address] APRN, [place] [address] Social History Tobacco Use Types Packs/Day Years Used Date Smoking Tobacco: Never Assessed Sex Assigned at Date Recorded Not on file documented as of this encounter Last Filed Vital Signs Vital Sign Reading Time Taken Comments Blood Pressure 110/70 07/02/2005 3:10 PM METALLURGIST PROCESS Pulse 82 07/02/2005 3:10 PM METALLURGIST PROCESS Temperature - - Respiratory Rate - - Oxygen Saturation - - Inhaled Oxygen Concentration - - Weight 66.6 kg (146 lb 12.5 oz) 07/02/2005 3:10 PM METALLURGIST PROCESS C: 66.6kg Height - - Body Mass Index 22.32 06/28/2005 2:55 PM METALLURGIST PROCESS Body Mass Index Percentile 71.37 % 07/02/2005 3:10 PM CS T Growth Chart: [facility] (Girls, 2-20 Years) documented in this encounter Progress Notes Sussy Enciso APRN, CNP - 07/02/2005 12:01 AM CST Progress Notes signed by Sussy Enciso APRN, CNP at 07/02/05 1720 Author: GUILLAUME Stevens Service: (none) Author Type: Nurse Practitioner Filed: 08/17/10 1153 Note Time: 07/02/05 0001 Status: Signed Rail Express Clerk: GUILLAUME Stevens (Nurse Practitioner) Subjective: Patient presents [...] is instructed to make a lab appointment. LLURGIST PROCESS documented in this encounter Plan of Treatment Not on filedocumented as of this encounter Visit Diagnoses Not on filedocumented in this encounter Care Teams Slasher Runner Relationship Specialty Start Date End Date Brisa Smith PA-C PCP - General 07/30/10 04/18/15 [address] [place] [address] documented as of this encounter
--- OUTSIDE RECORDS SUMMARY | 2022-03-28 13:30 | XMS_ITS | Encounter Summary ---
:1989 Author Organization [facility] Address [address] [place] [address] Care Team Providers Name Role Phone Brisa Smith PA-C Primary Care Provider Encounter Details Date Type Department Care Team Description 07/26/2005 Office Visit [facility] Gabo Weiner MD Subspecialty [address] [place], [place] [address] [place] [address] [phone] Social History Tobacco Use Types Packs/Day Years Used Date Smoking Tobacco: Never Assessed Sex Assigned at Date Recorded Not on file documented as of this encounter Last Filed Vital Signs Vital Sign Reading Time Taken Comments Blood Pressure 104/60 07/26/2005 3:27 PM WELDING TECHNICIAN Pulse 59 07/26/2005 3:27 PM WELDING TECHNICIAN Temperature - - Respiratory Rate - - Oxygen Saturation - - Inhaled Oxygen Concentration - - Weight 66 kg (145 lb 7.7 oz) 07/26/2005 3:27 PM WELDING TECHNICIAN C: 66.0kg Height 172.7 cm (5' 8) 07/26/2005 3:27 PM WELDING TECHNICIAN C: 172.7 cm Body Mass Index 22.12 07/26/2005 3:27 PM WELDING TECHNICIAN Body Mass Index Percentile 69.33 % 07/26/2005 3:27 PM CS T Growth Chart: [facility] (Girls, 2-20 Years) documented in this encounter Progress Notes Jarrett Weiner MD - 07/26/2005 12:01 AM CST Progress Notes signed by Jarrett Weiner MD at 08/09/05 1355 Author: Jarrett Weiner MD Service: (none) Author Type: Physician Filed: 08/17/10 1225 Note Time: 07/26/05 0001 Status: Signed Ccie: Jarrett Weiner MD (Physician) NAME: MINO POSADAS MR: [id number] ACCT: [id number] VISIT: [id number] DICTATING CLINICIAN: JARRETT WEINER MD JOB: [id number] CLINIC PROGRESS NOTE DATE OF VISIT: 07/26/2005 [...] metronidazole and continuing with Zelnorm, and followup. SCM:[id number] C: 07/30/05 15:07 DOCUMENT: [id number] documented in this encounter Plan of Treatment Not on filedocumented as of this encounter Visit Diagnoses Not on filedocumented in this encounter Care Teams Hat Sprayer Relationship Specialty Start Date End Date Brisa Smith PA-C PCP - General 07/30/10 04/18/15 [address] [place] [address] documented as of this encounter
--- OUTSIDE RECORDS SUMMARY | 2022-03-28 13:30 | XMS_ITS | Encounter Summary ---
:1989 Author Organization [facility] Address [address] [address] Care Team Providers Name Role Phone Brisa Smith PA-C Primary Care Provider Encounter Details Date Type Department Care Team Description 03/05/2005 PN Conversion Only [place] CONVERSION Lena Chiu, PARTICLE BOARD SUPERVISOR, [address] [address] [address] [place] [address] (Wo rk) Social History Tobacco Use Types Packs/Day Years Used Date Smoking Tobacco: Never Assessed Sex Assigned at Date Recorded Not on file documented as of this encounter Plan of Treatment Not on filedocumented as of this encounter Procedures Procedure Name Priority Date/Time Associated Comments Diagnosis STREP GROUP A ANTIGEN Routine 03/05/2005 4:21 PM Results for this TEST RETAIL BUSINESS ANALYST procedure are i n the results section. BETA STREP FOLLOWUP Routine 03/05/2005 4:21 PM Re sults for this RETAIL BUSINESS ANALYST procedure are i n the results section. THYROID STIMULATING Routine 03/05/2005 3:47 PM Re sults for this HORMONE RETAIL BUSINESS ANALYST procedure are i n the results section. MONONUCLEOSIS SCREEN Routine 03/05/2005 3:47 PM R esults for this RETAIL BUSINESS ANALYST procedure are i n the results section. COMPLETE BLOOD Routine 03/05/2005 3:47 PM Results for this COUNT-W/DIFF RETAIL BUSINESS ANALYST procedure are i n the results section. FERRITIN Routine 03/05/2005 3:47 PM Results f or this RETAIL BUSINESS ANALYST procedure are i n the results section. documented in this encounter Results Strep Group A Antigen Test (03/05/2005 4:21 PM RETAIL BUSINESS ANALYST) Analysis Performed At [facility] Time Signature Strep Group A Negative Negative HP CONVERSION Antigen Test Comment: Culture to follow. Specimen (Source) Anatomical Collection Method Collection Time Re ceived Time Location / / Volume Laterality 03/05/2005 4:21 PM RETAIL BUSINESS ANALYST Lena Chiu APRN, ROSA LAB_1 Performing Organization Address [facility] Phon e Number HP CONVERSION Beta Strep Followup (03/05/2005 4:21 PM RETAIL BUSINESS ANALYST) athologist Signature Strep Screen SEE TEXT HP CONVERSION Comment: Patient: MINO POSADAS Rapid Strep Follow up Culture @ ? Collected: ??[id number] ??[id number] Source: Throat ?Processed: ??[id number] ??[id number] Final Report ------ ?[id number] ??[id number] No beta hemolytic Strep group A isolated . @ = Rapid F/U Cult Performed at ??[address] [place], [place] ?[address] Specimen (Source) Anatomical Collection Method Collection Time Re ceived Time Location / / Volume Laterality 03/05/2005 4:21 PM RETAIL BUSINESS ANALYST Lena Chiu APRN, FRANCHISE SALES MANAGER LAB_1 Performing Organization Address [facility] Phon e Number HP CONVERSION (ABNORMAL) Complete Blood Count-W/Diff (03/05/2005 3:47 PM RETAIL BUSINESS ANALYST) [facility] Method Time Signature White Blood Cell [...] - HP CONVERSION Hemoglobin Conc 36.5 gm/dL Kinde RDW 12.3 11.0 - HP CONVERSION 15.0 [...] / / Volume Laterality 03/05/2005 3:47 PM RETAIL BUSINESS ANALYST Lena Chiu APRN, CNP LAB_1 Performing Organization Address City/[facility] Code Phon e Number HP CONVERSION Mononucleosis Screen (03/05/2005 3:47 PM RETAIL BUSINESS ANALYST) [facility] Method Time Signature Infectious Negative Negative HP CONVERSION Mononucleosis Screen Specimen (Source) Anatomical Collection Method Collection Time Re ceived Time Location / / Volume Laterality 03/05/2005 3:47 PM RETAIL BUSINESS ANALYST Lena Chiu APRN, CNP LAB_1 Performing Organization Address City/[facility]/ZIP Code Phon e Number HP CONVERSION Thyroid Stimulating Hormone (03/05/2005 3:47 PM RETAIL BUSINESS ANALYST) athologist Signature Thyroid 1.20 0.20 - HP CONVERSION Stimulating 4.50 Hormone uIU/mL Specimen (Source) Anatomical Collection Method Collection Time Re ceived Time Location / / Volume Laterality 03/05/2005 3:47 PM RETAIL BUSINESS ANALYST Lena Chiu APRN, CNP LAB_1 Performing Organization Address City/State/ZIP Code Phon e Number HP CONVERSION Ferritin (03/05/2005 3:47 PM RETAIL BUSINESS ANALYST) P athologist Signature Ferritin Serum 13 10 - 291 HP CONVERSION ng/mL Specimen (Source) Anatomical Collection Method Collection Time Re ceived Time Location / / Volume Laterality 03/05/2005 3:47 PM RETAIL BUSINESS ANALYST Lena Chiu PARTICLE BOARD SUPERVISOR, FRANCHISE SALES MANAGER LAB_1 Performing Organization Address City/State/ZIP Code Phon e Number HP CONVERSION documented in this encounter Visit Diagnoses Not on filedocumented in this encounter Care Teams Lpn Medical Assistant Relationship Specialty Start Date End Date Brisa Smith PA-C PCP - General 07/30/10 04/18/15 [address] [place] [address] documented as of this encounter
--- OUTSIDE RECORDS SUMMARY | 2022-03-28 13:30 | XMS_ITS | Encounter Summary ---
:1989 Author Organization [facility] Address [address] [place] [address] Care Team Providers Name Role Phone Brisa Smith PA-C Primary Care Provider Encounter Details Date Type Department Care Team Description 07/16/2006 Office Visit [place] Ros[facility], Caitlin Fuldarashaun Stern APRN, [place] [address] [address] [phone] [place] [phone] (Wo rk) Social History Tobacco Use Types [...] by Lillian Rosas APRN, ROSA at 07/16/06 0172 Author: LillianJOVANNA Welsh Service: (none) Author Type: Nurse Practitioner Filed: 08/17/10 193 Note Time: 07/16/06 0001 Status: Signed Engraver Steel Plate: JOVANNA Gagnon (Nurse Practitioner) Acute Clinic Visit [...] on filedocumented in this encounter Care Teams Hot Roll Laminator Relationship Specialty Start Date End Date Brisa Smith PA-C PCP - General 07/30/10 04/18/15 [address] [place] [address] documented as of this encounter
--- OUTSIDE RECORDS SUMMARY | 2022-03-28 13:30 | XMS_ITS | Encounter Summary ---
:1989 Author Organization [facility] Address [address] [place] [address] Care Team Providers Name Role Phone Brisa Smith PA-C Primary Care Provider Encounter Details Date Type Department Care Team Description 07/05/2005 Office Visit [facility] Gabo Weiner MD Subspecialty [address] [place] [address] [place], [place] [address] [phone] Social History Tobacco Use Types Packs/Day Years [...] 1159 Note Time: 07/05/05 0001 Status: Signed Java Developer: Jarrett Weiner MD (Physician) NAME: MINO POSADAS MR: [id number] ACCT: [id number] VISIT: [id number] DICTATING CLINICIAN: JARRETT WEINER MD JOB: [id number] CLINIC PROGRESS NOTE DATE OF VISIT: 07/05/2005 [...] has also had evaluation by ENT and CONVENTION MANAGER since our last visit. She has some [...] evaluation today, her followup and our plans. SCM:[id number] C: 07/09/05 05:17 DOCUMENT: [id number] E PRESSER documented in this encounter Plan of Treatment Not on filedocumented as of this encounter Visit Diagnoses Not on filedocumented in this encounter Care Teams Employment Supervisor Relationship Specialty Start Date End Date Brisa Smith PA-C PCP - General 07/30/10 04/18/15 [address] [place] [address] documented as of this encounter
--- OUTSIDE RECORDS SUMMARY | 2022-03-28 13:30 | XMS_ITS | Encounter Summary ---
:1989 Author Organization [facility] Address [address] [place] [address] Care Team Providers Name Role Phone Brisa Smith PA-C Primary Care Provider Reason for Visit Reason Comments Other Encounter Details Date Type Department Care Team Description 01/18/[address] [facility] [place] Message Other [address] [place] [address] Social History Tobacco Use Types Packs/Day Years Used Date Smoking Tobacco: Never Assessed Sex Assigned at Date Recorded Not on file documented as of this encounter [facility], Message - 01/18/2005 7:18 AM CDT Phone Note filed by Colingo at 08/13/102054 Author: Colingo Service: (none) Author Type: (none) Filed: 08/13/102054 Note Time: 01/18/05717 Status: Signed Supervisor Dock: Colingo Mom Shemar) Hellen mortensen was in for an appointment yesterday and dad brought her. She'd like to know what went on during the visit. Please call [phone]. Created on 18Jan2005 7:18am by DAWSON DILLON [...] not able to get in next week. INE RESERVATIONIST documented in this encounter Plan of Treatment Not on filedocumented as of this encounter Visit Diagnoses Not on filedocumented in this encounter Care Teams Low Heel Builder Relationship Specialty Start Date End Date Brisa Smith PA-C PCP - General 07/30/10 04/18/15 [address] [place] [address] documented as of this encounter
--- OUTSIDE RECORDS SUMMARY | 2022-03-28 13:30 | XMS_ITS | Encounter Summary ---
:1989 Author Organization [facility] Address [address] [place] [address] Care Team Providers Name Role Phone Brisa Smith PA-C Primary Care Provider Encounter Details Date Type Department Care Team Description 11/02/2004 Office Visit [facility] [place] [address] [place] [address] [phone] (Wo rk) Social History Tobacco Use Types [...] 0700 Note Time: 11/02/04 0001 Status: Signed Paint Supervisor: Tyrone Greer MD (Physician) NAME: MINO POSADAS MR: [id number] ACCT: [id number] VISIT: [id number] DICTATING CLINICIAN: TYRONE GREER MD,MS JOB: [id number] CLINIC PROGRESS NOTE DATE OF VISIT: 11/02/2004 [...] different cast. He agreed to do so. WMS:[id number] C: 11/03/04 22:04 DOCUMENT: [id number] documented in this encounter Plan of Treatment Not on filedocumented as of this encounter Visit Diagnoses Not on filedocumented in this encounter Care Teams Rod Pointer Relationship Specialty Start Date End Date Brisa Smith PA-C PCP - General 07/30/10 04/18/15 [address] [place] [address] documented as of this encounter
--- OUTSIDE RECORDS SUMMARY | 2022-03-28 13:30 | XMS_ITS | Encounter Summary ---
:1989 Author Organization [facility] Address [address] [place] [address] Care Team Providers Name Role Phone Brisa Smith PA-C Primary Care Provider Encounter Details Date Type Department Care Team Description 01/17/2005 Office Visit [facility] Abhay Philippe MD [address] [place] [address] [place] [address] [place] [address] [phone] (Wo rk) Social History Tobacco Use Types [...] 08/17/10 0829 Note Time: 01/17/052016 Status: Signed Transmission Superintendent: Abhay Philippe MD (Physician) NAME: MINO POSADAS MR: [id number] ACCT: [id number] VISIT: [id number] DICTATING CLINICIAN: ABHAY PHILIPPE MD JOB: [id number] CLINIC PROGRESS NOTE DATE OF VISIT: 01/17/2005 [...] does have slight abductor pain against resistance. CARTON CATCHER otherwise intact. Did obtain AP and frog-leg x-rays of pelvis. No obvious avulsion fracture. ASSESSMENT: Clinically concerned about an occult avulsion fracture with the distinct popping sensation vs a muscle strain/tendinitis. PLAN: Did recommend crutches, nonweightbearing and follow up with Orthopedics in 1 week. Symptomatic care described. Discussed with father in the exam room and later with mother by phone. DIAGNOSIS/IMPRESSION: Hip pain. RGS:[id number] C: 01/23/05 15:15 DOCUMENT: [id number] documented in this encounter Plan of Treatment [...] or significant bone or joint ab normality. [id number]/braulio Dictating TORIBIO WHEELER RADIOLOGIST Procedure Note Toribio Roy - 06/29/2016Formatting o f this note might be different from the original. HISTORY: Pain with volleyball injury. No acute or significant bone or joint ab normality. [id number]/braulio Dictating TORIBIO WHEELER RADIOLOGIST Abhay Philippe MD RAD GD documented in this encounter Visit Diagnoses Not on filedocumented in this encounter Care Teams Manager Regional Relationship Specialty Start Date End Date Brisa Smith PAMimaC PCP - General 07/30/10 04/18/15 [address] [place] [address] documented as of this encounter
--- OUTSIDE RECORDS SUMMARY | 2022-03-28 13:30 | XMS_ITS | Encounter Summary ---
:1989 Author Organization [facility] Address [address] [place] [address] Care Team Providers Name Role Phone Brisa Smith PA-C Primary Care Provider Encounter Details Date Type Department Care Team Description 06/28/2005 PN Conversion Only [place] Jarrett Weiner, [address] [place] [address] [address] [place] [address] (Wo rk) Social History Tobacco Use Types Packs/Day Years Used Date Smoking Tobacco: Never Assessed Sex Assigned at Date Recorded Not on file documented as of this encounter Plan of Treatment Not on filedocumented as of this encounter Procedures Procedure Name Priority Date/Time Associated Comments Diagnosis URINALYSIS COMPLETE Routine 06/28/2005 4:58 PM Re sults for this CIVIL ENGINEER LAND DEVELOPMENT procedure are i n the results section. TEST Routine 06/28/2005 4:58 PM Results for this (URINE) CIVIL ENGINEER LAND DEVELOPMENT procedure are i n the results section. documented in this encounter Results (ABNORMAL) Urinalysis Complete (06/28/2005 4:58 PM CIVIL ENGINEER LAND DEVELOPMENT) [facility] Method Time Signature Glucose, Negative Neg-Trac HP CONVERSION Qualitative U Protein Urine Negative Neg-Trac HP CONVERSION Ketones Negative Negative HP CONVERSION U BILI Negative Negative HP CONVERSION U Specific 1.025 1.005 - 25 HP CONVERSION [place] Blood Urine Negative Negative HP CONVERSION pH [...] / / Volume Laterality 06/28/2005 4:58 PM CIVIL ENGINEER LAND DEVELOPMENT Jarrett Weiner MD LAB_1 Performing Organization Address City/[facility]/ZIP Code Phon e Number HP CONVERSION Test (Urine) (06/28/2005 4:58 PM CIVIL ENGINEER LAND DEVELOPMENT) [facility] Method Time Signature Urine Negative No normal [...] / / Volume Laterality 06/28/2005 4:58 PM CIVIL ENGINEER LAND DEVELOPMENT Jarrett Weiner MD LAB_1 Performing Organization Address City/[facility] Phon e Number HP CONVERSION documented in this encounter Visit Diagnoses Not on filedocumented in this encounter Care Teams Stone Cleaner Relationship Specialty Start Date End Date Brisa Smith PA-C PCP - General 07/30/10 04/18/15 [address] [place] [address] documented as of this encounter
--- OUTSIDE RECORDS SUMMARY | 2022-03-28 13:30 | XMS_ITS | Encounter Summary ---
:1990 [facility] Address [address] [place] [address] Care Team Providers Name Role Phone Brisa Smith PA-C Primary Care Provider Encounter Details Date Type Department Care Team Description 12/06/2004 [facility] Jose Flynn MD Orthopedics [address] [place] [address] Social History Tobacco Use Types Packs/Day Years Used Date Smoking Tobacco: Never Assessed Sex Assigned at Date Recorded Not on file documented as of this encounter Progress Notes Ranjith Garcia - 12/06/2004 12:01 AM CDT Progress Notes signed by at 12/12/04 1200 Author: Ranjith Garcia MD Service: (none) Author Type: (none) Filed: 08/17/10 0739 Note Time: 12/06/04 0001 Status: Signed Work Force Advisor: Rudy Conversion NAME: MINO POSADAS MR: [id number] ACCT: [id number] VISIT: [id number] DICTATING CLINICIAN: RANJITH GARCIA MD,MPH JOB: [id number] CLINIC PROGRESS NOTE DATE OF VISIT: 12/06/2004 [...] guard here for the next few weeks. [id number] C: 12/06/04 09:12 DOCUMENT: [id number] N PEGGER documented in this encounter Plan of Treatment Not on filedocumented as of this encounter Visit Diagnoses Not on filedocumented in this encounter Care Teams Exterminator Relationship Specialty Start Date End Date Brisa Smith PA-C PCP - General 07/30/10 04/18/15 [address] [place] [address] documented as of this encounter
--- OUTSIDE RECORDS SUMMARY | 2022-03-28 13:30 | XMS_ITS | Encounter Summary ---
:1990 Author Organization [facility] Address [address] [place] [address] Care Team Providers Name Role Phone Unavailable Primary Care Provider Unavailable Encounter Details Date Type Department Care Team Description 11/02/2004 Hospital Encounter [facility] Jose Jimenes MD Social History Tobacco [...] likely a ?partially ruptured or leaked ganglion. [facility]/[id number] Dictating DANIEL VICK RADIOLOGIST Narrative 11/02/2004 5:59 [...] a pa rtially ruptured or leaked ganglion. [facility]/[id number] Dictating DANIEL VICK RADIOLOGIST Jose Jimenes MD RAD MRI documented in this encounter Visit Diagnoses Not on filedocumented in this encounter
--- OUTSIDE RECORDS SUMMARY | 2022-03-28 13:30 | XMS_ITS | Encounter Summary ---
:1990 Author Organization [facility] Address [address] [place] [address] Care Team Providers Name Role Phone Brisa Smith PA-C Primary Care Provider Encounter Details Date Type Department Care Team Description 03/05/2005 [facility], BUSINESS COMMUNICATIONS INSTRUCTOR, CERTIFIED ALCOHOL COUNSELOR [address] [place] [address] [phone] (Wo rk) Social History Tobacco Use Types Packs/Day Years Used Date Smoking Tobacco: Never Assessed Sex Assigned at Date Recorded Not on file documented as of this encounter Last Filed Vital Signs Vital Sign Reading Time Taken Comments Blood Pressure 108/66 03/05/2005 3:20 PM COMMISSIONER OF OFFICIALS Pulse - - Temperature 36.9 ??C (98.4 ??F) 03/05/2005 3:20 PM ORAL C: 3 6.9 C COMMISSIONER OF OFFICIALS Respiratory Rate - - Oxygen Saturation - - Inhaled Oxygen Concentration - - Weight 65.3 kg (143 lb 15.7 03/05/2005 3:20 PM C: 65.3k g oz) COMMISSIONER OF OFFICIALS Height - - Body Mass Index - - documented in this encounter Progress Notes Lena Chiu - 03/05/2005 12:01 AM CST Progress Notes signed by KIMBERLY Guerrier at 03/06/05 1526 Author: KIMBERLY Guerrier Service: (none) Author Type: Nurse Practitioner Filed: 08/17/10 0927 Note Time: 03/05/05 0001 Status: Signed Sql Developer: KIMBERLY Guerrier (Nurse Practitioner) NAME: MINO POSADAS MR: [id number] ACCT: [id number] VISIT: [id number] DICTATING CLINICIAN: LENA CHIU NP JOB: [id number] CLINIC PROGRESS NOTE DATE OF VISIT: 03/05/2005 [...] a probable viral syndrome. She then sought managed care coordinator who specializes in supplements, started on the supplements, and started feeling better for several months. She was not feeling well for the past month or two, resumed the managed care coordinator and supplements, felt sick for about a week, and now reports feeling better. She is physically active, attends the 10th grade at [employer], A student. Reports no concerns with any relationships at home or school. Sexually abstinent. No concerns for . LMP 2 weeks ago. Nonsmoker. No alcohol use or illicit drugs. Patient was interviewed separately from her mother. No urine frequency, urge, or dysuria. No concerns for depression. MEDICATIONS: Several supplements including CoQ10 several Nauruan herbs, and a pill called Cell Revive. [...] organomegaly, masses, or guarding. No CVAT. LABS: [place] screen negative. Rapid strep screen negative. WBC [...] I am not clear as to what Nauruan herbs she is on. If she reports any other unusual concerns or symptoms, I would ask her to stop those and follow up. FINAL IMPRESSION: Fatigue, sore throat, and headache, suspect viral etiology, improving. [id number] C: 03/06/05 09:29 DOCUMENT: [id number] ISSIONER OF OFFICIALS documented in this encounter Plan of Treatment Not on filedocumented as of this encounter Visit Diagnoses Not on filedocumented in this encounter Care Teams Strategic Planner Relationship Specialty Start Date End Date Brisa Smith PA-C PCP - General 07/30/10 04/18/15 [address] [place] [address] documented as of this encounter
--- OUTSIDE RECORDS SUMMARY | 2022-03-28 13:30 | XMS_ITS | Encounter Summary ---
:1990 Author Organization [facility] Address [address] [place] [address] Care Team Providers Name Role Phone Brisa Smith PA-C Primary Care Provider Encounter Details Date Type Department Care Team Description 03/25/2005 Office Visit [facility] Lena Wright, TECHNICAL SPECIALIST CYTOGENETICS, ADMINISTRATIVE ASSISTANT FRONT DESK [address] [place] [address] [phone] (Wo rk) Social History Tobacco Use Types Packs/Day Years Used Date Smoking Tobacco: Never Assessed Sex Assigned at Date Recorded Not on file documented as of this encounter Last Filed Vital Signs Vital Sign Reading Time Taken Comments Blood Pressure 104/60 03/25/2005 2:07 PM HYDRAULICS TEACHER Pulse - - Temperature 36.9 ??C (98.4 ??F) 03/25/2005 2:07 PM ORAL C: 3 6.9 C HYDRAULICS TEACHER Respiratory Rate - - Oxygen Saturation - - Inhaled Oxygen Concentration - - Weight 64.4 kg (142 lb) 03/25/2005 2:07 PM C: 64.4kg HYDRAULICS TEACHER Height - - Body Mass Index - - documented in this encounter Progress Notes Lena Chiu - 03/25/2005 12:01 AM CST Progress Notes signed by KIMBERLY Guerrier at 03/26/05 1444 Author: KIMBERLY Guerrier Service: (none) Author Type: Nurse Practitioner Filed: 08/17/10 0950 Note Time: 03/25/05 0001 Status: Signed Mutuel Cashier: KIMBERLY Guerrier (Nurse Practitioner) NAME: MINO POSADAS MR: [id number] ACCT: [id number] VISIT: [id number] DICTATING CLINICIAN: LENA CHIU NP JOB: [id number] CLINIC PROGRESS NOTE DATE OF VISIT: 03/25/2005 SUBJECTIVE: Chief Complaint: A 14-year-old female follows up for recurrent sore throat, fatigue, intermittent nausea, headaches. Seen early February (03/19/2005). Symptoms improved for a while, was not completely 100% better but now symptoms recurred. These have been occurring on and off since this past spring. She is followed with a metal finisher and chiropractor who has her on several [...] lb in the past two weeks. Attends [employer], a student, plays volleyball. Has been missing [...] swollen glands. MEDICATIONS: COQ10, multivitamins, NADH, a Bangladeshi herb. Monolaurin supplement, Cordyceps (Bangladeshi mushroom supplement). Taking these supplements t.i.d. ADR/ALLERGIES: [...] No CVAT. LABS: CBC normal. UA normal. [place] screen negative. Strep culture negative 03/05/2005. ASSESSMENT: Recurrent symptoms fatigue, sore throat, nausea, abdominal pain, headache, feeling feverish; unclear etiology; possibly mono-like virus. PLAN: Checking serum [place] virus, IgG, IgM; parvovirus IgG, IgM and CMV IgG, IgM. Notify once available. If these are negative and the symptoms are persisting will consult one of my physician colleagues for any further work up. Continue adequate fluid hydration. Depending on lab results or if symptoms persist; plan follow up and may consider having her stop some of the Bangladeshi herbal supplements. She follows with Junior Williamson at [facility] in [place], [place] (Patents Examiner/Chiropractor). FINAL IMPRESSION: Constellation of symptoms including fatigue, sore throat, intermittent abdominal pain, nausea, headache [id number] C: 03/26/05 13:48 DOCUMENT: [id number] AULICS TEACHER documented in this encounter Plan of Treatment Not on filedocumented as of this encounter Visit Diagnoses Not on filedocumented in this encounter Care Teams Software Engineer Backend Relationship Specialty Start Date End Date Brisa Smith PA-C PCP - General 07/30/10 04/18/15 [address] [place] [address] documented as of this encounter
--- OUTSIDE RECORDS SUMMARY | 2022-03-28 13:30 | XMS_ITS | Encounter Summary ---
:1990 Author Organization [facility] Address [address] [place] [address] Care Team Providers Name Role Phone Brisa Smith PA-C Primary Care Provider Encounter Details Date Type Department Care Team Description 05/22/2005 Office Visit [facility] re Ellen Solis, [address] [facility] [place] [address] [facility] [phone] [place], [place] [address] Social History Tobacco Use Types Packs/Day Years Used Date Smoking Tobacco: Never Assessed Sex Assigned at Date Recorded Not on file documented as of this encounter Last Filed Vital Signs Vital Sign Reading Time Taken Comments Blood Pressure 127/66 05/22/2005 4:39 PM AIRCRAFT MACHINIST Pulse 73 05/22/2005 4:39 PM AIRCRAFT MACHINIST Temperature 36.7 ??C (98.1 ??F) 05/22/2005 4:39 PM AIRCRAFT MACHINIST C: 36 .7 C Respiratory Rate 16 05/22/2005 4:39 PM AIRCRAFT MACHINIST Oxygen Saturation 98% 05/22/2005 4:39 PM AIRCRAFT MACHINIST Inhaled Oxygen Concentration - - Weight - - Height - - Body Mass Index - - documented in this encounter Progress Notes Ellen Solis PA-C - 05/22/2005 12:01 AM CST Progress Notes signed by Ellen Solis PA-C at 05/28/05 9015 Author: Ellen Solis PA-C Service: (none) Author Type: Resource Filed: 08/17/10 1102 Note Time: 05/22/05 0001 Status: Signed Golf Ball Marker: Ellen Solis PA-C (Resource) NAME: MINO POSADAS MR: [id number] ACCT: [id number] VISIT: [id number] DICTATING CLINICIAN: ELLEN SOLIS PA-C JOB: [id number] CLINIC PROGRESS NOTE DATE OF VISIT: 05/22/2005 SUBJECTIVE: Ukmxncp-[id number]-nzg female complaining of a cough for the [...] PLAN: Symptomatic care. Follow up as needed. [id number] C: 05/23/05 12:45 DOCUMENT: [id number] RAFT MACHINIST documented in this encounter Plan of Treatment Not on filedocumented as of this encounter Visit Diagnoses Not on filedocumented in this encounter Care Teams Casework Specialist Relationship Specialty Start Date End Date Brisa Smith PA-C PCP - General 07/30/10 04/18/15 [address] [place] [address] documented as of this encounter
--- OUTSIDE RECORDS SUMMARY | 2022-03-28 13:30 | XMS_ITS | Encounter Summary ---
:1990 Author Organization [facility] Address [address] [address] Care Team Providers Name Role Phone Brisa Smith PA-C Primary Care Provider Reason for Visit Reason Comments Other Encounter Details Date Type Department Care Team Description 06/19/2005 Telephone [employer], Message Other [address] [place] [address] Social History Tobacco Use [...] 08/14/10109 Note Time: 06/19/05 1028 Status: Signed Parliamentary Archivist: Chelo Álvarez RN (Registered Nurse) Mom, Mildred, calling. Pt.isn't any better. Wants to know what next step is. Pt.has had sore throat that comes and goes, fatigue, body aches for several months, was seen 05/22/05 in . If she exerts herself at all she is wiped out. Was home yesterday from school after being [place]this [place]. Mom will be at [phone] after 11. Created on 19Jun2005 10:28am by [...] need an appt. Transferred to appt. desk. NE AFFILIATE MARKETING MANAGER documented in this encounter Plan of Treatment Not on filedocumented as of this encounter Visit Diagnoses Not on filedocumented in this encounter Care Teams Tearoom Host/Hostess Relationship Specialty Start Date End Date Brisa Smith PA-C PCP - General 07/30/10 04/18/15 [address] [place] [address] documented as of this encounter
--- OUTSIDE RECORDS SUMMARY | 2022-03-28 13:30 | XMS_ITS | Encounter Summary ---
:1990 Author Organization [facility] Address [address], [place] [address] Care Team Providers Name Role Phone Brisa Smith PA-C Primary Care Provider Reason for Visit Reason Comments Other Encounter Details Date Type Department Care Team Description 03/12/2005 Telephone [facility] Kirti Kent Other [address] [place], [place] [id number] Social History Tobacco Use Types Packs/Day Years Used Date Smoking Tobacco: Never Assessed Sex Assigned at Date Recorded Not on file documented as of this encounter Progress Notes Kirti Kent - 03/12/2005 5:53 PM CST Phone Note filed by Kirti Kent RN at 08/13/102221 Author: Kirti Kent RN Service: (none) Author Type: Registered Nurse Filed: 08/13/102221 Note Time: 03/12/051752 Status: Signed Roofing Superintendent: Kirti Kent RN (Registered Nurse) Mom calling for immunizations needed tonight when they go to a meeting about vollyball. Gave mom the immunizations that were in the computer. All that she needed weren't there. Created on 12Mar2005 5:53pm by KIRTI KENT ROOM DANCE INSTRUCTOR documented in this encounter Plan of Treatment Not on filedocumented as of this encounter Visit Diagnoses Not on filedocumented in this encounter Care Teams Senior Java Engineer Relationship Specialty Start Date End Date Brisa Smith PA-C PCP - General 07/30/10 04/18/15 [address] [place] [address] documented as of this encounter
--- OUTSIDE RECORDS SUMMARY | 2022-03-28 13:30 | XMS_ITS | Encounter Summary ---
:1990 Author Organization [facility] Address [address] [place] [address] Care Team Providers Name Role Phone Brisa Smith PA-C Primary Care Provider Encounter Details Date Type Department Care Team Description 07/05/2005 PN Conversion Only [place] CONVERSI ON Jarrett Weiner, [address] [place] [address] [address] [place] [address] (Wo rk) Social History Tobacco Use Types Packs/Day Years Used Date Smoking Tobacco: Never Assessed Sex Assigned at Date Recorded Not on file documented as of this encounter Plan of Treatment Not on filedocumented as of this encounter Procedures Procedure Name Priority Date/Time Associated Comments Diagnosis LAB IGM Routine 07/05/2005 3:14 PM Results f or this REAL ESTATE PHOTOGRAPHER procedure are i n the results section. CARDIOLIPIN Routine 07/05/2005 3:14 PM Results f or this ANTIBODIES, IGG AND REAL ESTATE PHOTOGRAPHER procedur e are in IGM the results section. THYROID STIMULATING Routine 07/05/2005 3:14 PM Re sults for this HORMONE REAL ESTATE PHOTOGRAPHER procedure are i n the results section. CREATININE / GFR Routine 07/05/2005 3:14 PM Resul ts for this REAL ESTATE PHOTOGRAPHER procedure are i n the results section. IGE, MILK (F2) Routine 07/05/2005 3:14 PM Results for this REAL ESTATE PHOTOGRAPHER procedure are i n the results section. COMPLETE BLOOD Routine 07/05/2005 3:14 PM Results for this COUNT-W/DIFF REAL ESTATE PHOTOGRAPHER procedure are i n the results section. BILIRUBIN, TOTAL & Routine 07/05/2005 3:14 PM Res ults for this DIRECT REAL ESTATE PHOTOGRAPHER procedure are i n the results section. FREE T4 Routine 07/05/2005 3:14 PM Results f or this REAL ESTATE PHOTOGRAPHER procedure are i n the results section. IGG, SERUM Routine 07/05/2005 3:14 PM Results f or this REAL ESTATE PHOTOGRAPHER procedure are i n the results section. IGE TOTAL Routine 07/05/2005 3:14 PM Results f or this REAL ESTATE PHOTOGRAPHER procedure are i n the results section. IGA, SERUM Routine 07/05/2005 3:14 PM Results f or this REAL ESTATE PHOTOGRAPHER procedure are i n the results section. C-REACTIVE PROTEIN Routine 07/05/2005 3:14 PM Res ults for this REAL ESTATE PHOTOGRAPHER procedure are i n the results section. AST Routine 07/05/2005 3:14 PM Results f or this REAL ESTATE PHOTOGRAPHER procedure are i n the results section. LD TOTAL (LDH) Routine 07/05/2005 3:14 PM Results for this REAL ESTATE PHOTOGRAPHER procedure are i n the results section. BUN Routine 07/05/2005 3:14 PM Results f or this REAL ESTATE PHOTOGRAPHER procedure are i n the results section. documented in this encounter Results Complete Blood Count-W/Diff (07/05/2005 3:14 PM REAL ESTATE PHOTOGRAPHER) [facility] gist Method Time Signature White Blood [...] - HP CONVERSION Hemoglobin Conc 36.5 gm/dL [place] RDW 12.2 11.0 - HP CONVERSION 15.0 [...] / / Volume Laterality 07/05/2005 3:14 PM REAL ESTATE PHOTOGRAPHER Jarrett Weiner MD LAB_1 Performing Organization Address City/[facility]/ZIP Code Phon e Number HP CONVERSION AST (07/05/2005 3:14 PM REAL ESTATE PHOTOGRAPHER) [facility] Method Time Signature Aspartate 20 0 - 45 HP CONVERSION Aminotransferase U/L Specimen (Source) Anatomical Collection Method Collection Time Re ceived Time Location / / Volume Laterality 07/05/2005 3:14 PM REAL ESTATE PHOTOGRAPHER Jarrett Weiner MD LAB_1 Performing Organization Address City/[facility] Phon e Number HP CONVERSION Bilirubin, Total & Direct (07/05/2005 3:14 PM REAL ESTATE PHOTOGRAPHER) athologist Signature Bilirubin Total 0.2 0.2 - 1.2 HP CONVERSION mg/dL Bilirubin, 0.1 0.0 - 0.4 HP CONVERSION Direct mg/dL Specimen (Source) Anatomical Collection Method Collection Time Re ceived Time Location / / Volume Laterality 07/05/2005 3:14 PM REAL ESTATE PHOTOGRAPHER Jarrett Weiner MD LAB_1 Performing Organization Address City/[facility] Code Phon e Number HP CONVERSION BUN (07/05/2005 3:14 PM REAL ESTATE PHOTOGRAPHER) athologist Signature Blood Urea 13 5 - 26 HP CONVERSION Nitrogen mg/dL Specimen (Source) Anatomical Collection Method Collection Time Re ceived Time Location / / Volume Laterality 07/05/2005 3:14 PM REAL ESTATE PHOTOGRAPHER Jarrett Weiner MD LAB_1 Performing Organization Address City/[facility]/ZIP Code Phon e Number HP CONVERSION Creatinine / GFR (07/05/2005 3:14 PM REAL ESTATE PHOTOGRAPHER) athologist Signature Creatinine 0.8 0.5 - 1.5 HP CONVERSION Serum mg/dL Specimen (Source) Anatomical Collection Method Collection Time Re ceived Time Location / / Volume Laterality 07/05/2005 3:14 PM REAL ESTATE PHOTOGRAPHER Jarrett Weiner MD LAB_1 Performing Organization Address City/[facility]/ZIP Code Phon e Number HP CONVERSION LD Total (LDH) (07/05/2005 3:14 PM REAL ESTATE PHOTOGRAPHER) [facility] Method Time Signature Lactic Acid 169 90 - 180 HP CONVERSION Dehydrogenase U/L Specimen (Source) Anatomical Collection Method Collection Time Re ceived Time Location / / Volume Laterality 07/05/2005 3:14 PM REAL ESTATE PHOTOGRAPHER Jarrett Donnell Weiner MD LAB_1 Performing Organization Address City/State/ZIP Code Phon e Number HP CONVERSION C-Reactive Protein (07/05/2005 3:14 PM REAL ESTATE PHOTOGRAPHER) athologist Signature CRP <0.2 0.0 - 0.9 HP CONVERSION mg/dL Specimen (Source) Anatomical Collection Method Collection Time Re ceived Time Location / / Volume Laterality 07/05/2005 3:14 PM REAL ESTATE PHOTOGRAPHER Jarrett Donnell Weiner MD LAB_1 Performing Organization Address City/State/ZIP Code Phon e Number HP CONVERSION IgA, Serum (07/05/2005 3:14 PM REAL ESTATE PHOTOGRAPHER) Analysis Performed At [facility] Signature Immunoglobulin A 109 51 - 190 HP CONVERSION mg/dL Specimen (Source) Anatomical Collection Method Collection Time Re ceived Time Location / / Volume Laterality 07/05/2005 3:14 PM REAL ESTATE PHOTOGRAPHER Jarrett Weiner MD LAB_1 Performing Organization Address City/[facility] Code Phon e Number HP CONVERSION Igg, Serum (07/05/2005 3:14 PM REAL ESTATE PHOTOGRAPHER) Analysis Performed At [facility] Signature Immunoglobulin G 1,360 669 - HP CONVERSION 1,529 mg/dL Specimen (Source) Anatomical Collection Method Collection Time Re ceived Time Location / / Volume Laterality 07/05/2005 3:14 PM REAL ESTATE PHOTOGRAPHER Jarrett Weiner MD LAB_1 Performing Organization Address City/[facility] Code Phon e Number HP CONVERSION IgE Total (07/05/2005 3:14 PM REAL ESTATE PHOTOGRAPHER) Analysis Performed At [facility] Signature Immunoglobulin E 30 0 - 180 HP CONVERSION IU/mL Comment: Interpretive data: TEST INFORMATION: Immunoglobulin E To convert to ng/mL, multiply IU/mL by 2 .4. Specimen (Source) Anatomical Collection Method Collection Time Re ceived Time Location / / Volume Laterality 07/05/2005 3:14 PM REAL ESTATE PHOTOGRAPHER Jarrett Weiner MD LAB_1 Performing Organization Address City/[facility]/ZIP Code Phon e Number HP CONVERSION IGM (07/05/2005 3:14 PM REAL ESTATE PHOTOGRAPHER) Analysis Performed At Patho logist Time Signature Immunoglobulin M 46 37 - 314 HP CONVERSION mg/dL Specimen (Source) Anatomical Collection Method Collection Time Re ceived Time Location / / Volume Laterality 07/05/2005 3:14 PM REAL ESTATE PHOTOGRAPHER Jarrett Weiner MD LAB_1 Performing Organization Address City/State/ZIP Code Phon e Number HP CONVERSION Free T4 (07/05/2005 3:14 PM REAL ESTATE PHOTOGRAPHER) P athologist Signature Thyroxine, Free 1.4 0.8 - 1.5 HP CONVERSION ng/dL Specimen (Source) Anatomical Collection Method Collection Time Re ceived Time Location / / Volume Laterality 07/05/2005 3:14 PM REAL ESTATE PHOTOGRAPHER Jarrett Weiner MD LAB_1 Performing Organization Address City/State/ZIP Code Phon e Number HP CONVERSION Thyroid Stimulating Hormone (07/05/2005 3:14 PM REAL ESTATE PHOTOGRAPHER) P athologist Signature Thyroid 1.09 0.20 - HP CONVERSION Stimulating 4.50 Hormone uIU/mL Specimen (Source) Anatomical Collection Method Collection Time Re ceived Time Location / / Volume Laterality 07/05/2005 3:14 PM REAL ESTATE PHOTOGRAPHER Jarrett Weiner MD LAB_1 Performing Organization Address City/State/ZIP Code Phon e Number HP CONVERSION Cardiolipin Antibodies (07/05/2005 3:14 PM REAL ESTATE PHOTOGRAPHER) [facility] gist Method Time Signature Anticardiolipin [...] with antiphospholipid antibody syndrome (Br J Rheumatol [id number]) have moderate or high l evels of [...] with antiphospholipid antibody syndrome (Br J Rheumatol 26:617-252 4005) have moderate or high l evels of cardiolipin antibodies and are positive for IgG only, or IgG and IgM. Specimen (Source) Anatomical Collection Method Collection Time Re ceived Time Location / / Volume Laterality 07/05/2005 3:14 PM REAL ESTATE PHOTOGRAPHER Jarrett Weiner MD LAB_1 Performing Organization Address City/[facility]/ZIP Code Phon e Number HP CONVERSION IgE, Milk (F2) (07/05/2005 3:14 PM REAL ESTATE PHOTOGRAPHER) P athologist Signature Milk IgE <0.35 kU/L HP CONVERSION Comment: Class 0 (Negative <0.35) Specimen (Source) Anatomical Collection Method Collection Time Re ceived Time Location / / Volume Laterality 07/05/2005 3:14 PM REAL ESTATE PHOTOGRAPHER Jarrett Weiner MD LAB_1 Performing Organization Address City/[facility] Phon e Number HP CONVERSION documented in this encounter Visit Diagnoses Not on filedocumented in this encounter Care Teams Stock Handler Relationship Specialty Start Date End Date Brisa Smith PA-C PCP - General 07/30/10 04/18/15 [address] [place] [address] documented as of this encounter
--- OUTSIDE RECORDS SUMMARY | 2022-03-28 13:30 | XMS_ITS | Encounter Summary ---
:1990 Author Organization [facility] Address [address] [address] Care Team Providers Name Role Phone Brisa Smith PA-C Primary Care Provider Encounter Details Date Type Department Care Team Description 06/25/2005 PN Conversion Only HELENA CONVERSION Lena Chiu, GRAIN DRIER OPERATOR, [address] [address] [address] [phone] (Wo rk) Social History Tobacco Use Types Packs/Day Years Used Date Smoking Tobacco: Never Assessed Sex Assigned at Date Recorded Not on file documented as of this encounter Plan of Treatment Not on filedocumented as of this encounter Procedures Procedure Name Priority Date/Time Associated Comments Diagnosis LYME DISEASE SCREEN Routine 06/25/2005 9:05 Resul ts for this (IN-HOUSE) AM GRAB HOOKER procedure are i n the results section. PARVOVIRUS B19 IGG & IGM Routine 06/25/2005 9:05 Results for this ANTIBODIES AM GRAB HOOKER procedure are i n the results section. CYTOMEGALOVIRUS IGM Routine 06/25/2005 9:05 Resul ts for this ANTIBODY AM GRAB HOOKER procedure are i n the results section. CYTOMEGALOVIRUS IGG Routine 06/25/2005 9:05 Resul ts for this ANTIBODY AM GRAB HOOKER procedure are i n the results section. HEMOGLOBIN, BLOOD Routine 06/25/2005 9:05 Results for this AM GRAB HOOKER procedure are i n the results section. WBC, BLOOD Routine 06/25/2005 9:05 Results for this AM GRAB HOOKER procedure are i n the results section. RHEUMATOID FACTOR, QUANT Routine 06/25/2005 9:05 Results for this AM GRAB HOOKER procedure are i n the results section. FERRITIN Routine 06/25/2005 9:05 Results for this AM GRAB HOOKER procedure are i n the results section. IRISH SCREEN Routine 06/25/2005 9:05 Results for this AM GRAB HOOKER procedure are i n the results section. ESR Routine 06/25/2005 9:05 Results for this AM GRAB HOOKER procedure are i n the results section. documented in this encounter Results Hemoglobin, Blood (06/25/2005 9:05 AM GRAB HOOKER) P athologist Signature Hemoglobin 15.4 12.0 - 16.0 HP CONVERSION gm/dL Specimen (Source) Anatomical Collection Method Collection Time Re ceived Time Location / / Volume Laterality 06/25/2005 9:05 AM GRAB HOOKER Lena Chiu APRN, CNP LAB_1 Performing Organization Address City/[facility]/ZIP Code Phon e Number HP CONVERSION WBC, Blood (06/25/2005 9:05 AM GRAB HOOKER) athologist Signature White Blood 4.8 4.5 - 13.0 HP CONVERSION Cell Count K/cmm Specimen (Source) Anatomical Collection Method Collection Time Re ceived Time Location / / Volume Laterality 06/25/2005 9:05 AM GRAB HOOKER Lena Chiu APRN, CNP LAB_1 Performing Organization Address City/[facility] Code Phon e Number HP CONVERSION ESR (06/25/2005 9:05 AM GRAB HOOKER) Patholo gist Method Time Signature Sedimentation Rate 1 0 - 20 HP CONVERSI ON mm/Hr Specimen (Source) Anatomical Collection Method Collection Time Re ceived Time Location / / Volume Laterality 06/25/2005 9:05 AM GRAB HOOKER Lena Chiu APRN, CNP LAB_1 Performing Organization Address City/[facility]/ZIP Code Phon e Number HP CONVERSION IRISH Screen (06/25/2005 9:05 AM GRAB HOOKER) Analysis Performed At Patho logist Time Signature Anti-Nuclear Negative Negative HP CONVERSION Ab Specimen (Source) Anatomical Collection Method Collection Time Re ceived Time Location / / Volume Laterality 06/25/2005 9:05 AM GRAB HOOKER Lena Chiu APRN, CNP LAB_1 Performing Organization Address City/[facility]/ZIP Code Phon e Number HP CONVERSION Rheumatoid Factor, Quant (06/25/2005 9:05 AM GRAB HOOKER) Patholo gist Method Time Signature Rheumatoid Negative 0 - 20 HP CONVERSION Factor IU/mL Specimen (Source) Anatomical Collection Method Collection Time Re ceived Time Location / / Volume Laterality 06/25/2005 9:05 AM GRAB HOOKER Lena Chiu APRN, ROSA LAB_1 Performing Organization Address [facility] Phon e Number HP CONVERSION Ferritin (06/25/2005 9:05 AM GRAB HOOKER) athologist Signature Ferritin Serum 17 10 - 291 HP CONVERSION ng/mL Specimen (Source) Anatomical Collection Method Collection Time Re ceived Time Location / / Volume Laterality 06/25/2005 9:05 AM GRAB HOOKER Lena Chiu APRN, CNP LAB_1 Performing Organization Address [facility] Phon e Number HP CONVERSION Parvovirus B19 Igg & Igm Antibodies (06/25/2005 9:05 AM GRAB HOOKER) athologist Signature Parvovirus B19 0.16 HP CONVERSION [...] / / Volume Laterality 06/25/2005 9:05 AM GRAB HOOKER Lena Chiu APRN, CNP LAB_1 Performing Organization Address [facility] Phon e Number HP CONVERSION Cytomegalovirus IgG Antibody (06/25/2005 9:05 AM GRAB HOOKER) [facility] Method Time Signature Cytomegalovirus IgG 39 AU [...] / / Volume Laterality 06/25/2005 9:05 AM GRAB HOOKER Lena Chiu APRN, CNP LAB_1 Performing Organization Address [facility] e Number HP CONVERSION Cytomegalovirus IgM Antibody (06/25/2005 9:05 AM GRAB HOOKER) [facility] Method Time Signature Cytomegalovirus IgM 0.07 AU [...] / / Volume Laterality 06/25/2005 9:05 AM GRAB HOOKER Lena Chiu APRN, CNP LAB_1 Performing Organization Address City/[facility] Phon e Number HP CONVERSION Lyme Disease Screen (IN-House) (06/25/2005 9:05 AM GRAB HOOKER) athologist Signature Lyme Screen Negative No normal HP CONVERSION range Comment: A negative Lyme result does not rule out Lyme disease. ??If a current infection is suspected, please submit a second specimen in 4-6 weeks. Positive or equivocal specimens are auto matically sent to [facility] for Western Blot testing. Specimen (Source) Anatomical Collection Method Collection Time Re ceived Time Location / / Volume Laterality 06/25/2005 9:05 AM GRAB HOOKER Lena Chiu APRN, CNP LAB_1 Performing Organization Address City/[facility] Phon e Number HP CONVERSION documented in this encounter Visit Diagnoses Not on filedocumented in this encounter Care Teams Computer Systems Technology Instructor Relationship Specialty Start Date End Date Brisa Smith PA-C PCP - General 07/30/10 04/18/15 [address] [place] [address] documented as of this encounter
--- OUTSIDE RECORDS SUMMARY | 2022-03-28 13:30 | XMS_ITS | Encounter Summary ---
:1990 Author Organization [facility] Address [address], [place] [address] Care Team Providers Name Role Phone Brisa Smith PA-C Primary Care Provider Encounter Details Date Type Department Care Team Description 03/25/2005 PN Conversion Only HELENA CONVERSION Lena Chiu, STATIONARY ENGINEER APPRENTICE, [address] [place] [address] [address] [phone] (Wo rk) Social History Tobacco Use Types Packs/Day Years Used Date Smoking Tobacco: Never Assessed Sex Assigned at Date Recorded Not on file documented as of this encounter Plan of Treatment Not on filedocumented as of this encounter Procedures Procedure Name Priority Date/Time Associated Comments Diagnosis PARVOVIRUS B19 IGG & IGM Routine 03/25/2005 2:38 Results for this ANTIBODIES PM RESEARCH DEVELOPMENT MANAGER procedure are i n the results section. ISA ALTAMIRANO VIRUS PANEL Routine 03/25/2005 2:38 Results for this PM RESEARCH DEVELOPMENT MANAGER procedure are i n the results section. CYTOMEGALOVIRUS IGM Routine 03/25/2005 2:38 Resul ts for this ANTIBODY PM RESEARCH DEVELOPMENT MANAGER procedure are i n the results section. CYTOMEGALOVIRUS IGG Routine 03/25/2005 2:38 Resul ts for this ANTIBODY PM RESEARCH DEVELOPMENT MANAGER procedure are i n the results section. URINALYSIS COMPLETE Routine 03/25/2005 2:38 Resul ts for this PM RESEARCH DEVELOPMENT MANAGER procedure are i n the results section. MONONUCLEOSIS SCREEN Routine 03/25/2005 2:38 Resu lts for this PM RESEARCH DEVELOPMENT MANAGER procedure are i n the results section. COMPLETE BLOOD Routine 03/25/2005 2:38 Results fo r this COUNT-W/DIFF PM RESEARCH DEVELOPMENT MANAGER procedure are i n the results section. documented in this encounter Results Complete Blood Count-W/Diff (03/25/2005 2:38 PM RESEARCH DEVELOPMENT MANAGER) [facility] Method Time Signature White Blood Cell [...] - HP CONVERSION Hemoglobin Conc 36.5 gm/dL [place] RDW 12.2 11.0 - HP CONVERSION 15.0 [...] / / Volume Laterality 03/25/2005 2:38 PM RESEARCH DEVELOPMENT MANAGER Lena Chiu APRN, CNP LAB_1 Performing Organization Address City/[facility]/ZIP Code Phon e Number HP CONVERSION Mononucleosis Screen (03/25/2005 2:38 PM RESEARCH DEVELOPMENT MANAGER) [facility] Method Time Signature Infectious Negative Negative HP CONVERSION Mononucleosis Screen Specimen (Source) Anatomical Collection Method Collection Time Re ceived Time Location / / Volume Laterality 03/25/2005 2:38 PM RESEARCH DEVELOPMENT MANAGER Lena Chiu APRN, CNP LAB_1 Performing Organization Address City/State/ZIP Code Phon e Number HP CONVERSION Urinalysis Complete (03/25/2005 2:38 PM RESEARCH DEVELOPMENT MANAGER) [facility] Method Time Signature Glucose, Negative Neg-Trac HP CONVERSION Qualitative U Protein Urine Negative Neg-Trac HP CONVERSION Ketones Negative Negative HP CONVERSION U BILI Negative Negative HP CONVERSION U Specific 1.025 1.005 - 25 HP CONVERSION [place] Blood Urine Negative Negative HP CONVERSION pH [...] / / Volume Laterality 03/25/2005 2:38 PM RESEARCH DEVELOPMENT MANAGER Lena Chiu STATIONARY ENGINEER APPRENTICE, REPAIRER RESISTANCE WELDING MACHINES LAB_1 Performing Organization Address City/State/ZIP Code Phon e Number HP CONVERSION Isa Altamirano Virus Panel (03/25/2005 2:38 PM RESEARCH DEVELOPMENT MANAGER) athologist Signature Isa-Altamirano 0.35 HP CONVERSION [...] / / Volume Laterality 03/25/2005 2:38 PM RESEARCH DEVELOPMENT MANAGER Lena Chiu APRN, REPAIRER RESISTANCE WELDING MACHINES LAB_1 Performing Organization Address City/State/ZIP Code Phon e Number HP CONVERSION Parvovirus B19 Igg & Igm Antibodies (03/25/2005 2:38 PM RESEARCH DEVELOPMENT MANAGER) athologist Signature Parvovirus B19 0.28 HP [...] / / Volume Laterality 03/25/2005 2:38 PM RESEARCH DEVELOPMENT MANAGER Lena Chiu APRN, ROSA LAB_1 Performing Organization Address [facility] Phon e Number HP CONVERSION Cytomegalovirus IgG Antibody (03/25/2005 2:38 PM RESEARCH DEVELOPMENT MANAGER) [facility] Method Time Signature Cytomegalovirus IgG 36 [...] / / Volume Laterality 03/25/2005 2:38 PM RESEARCH DEVELOPMENT MANAGER Lena Chiu APRN, CNP LAB_1 Performing Organization Address [facility] Phon e Number HP CONVERSION Cytomegalovirus IgM Antibody (03/25/2005 2:38 PM RESEARCH DEVELOPMENT MANAGER) [facility] gist Method Time Signature Cytomegalovirus IgM 0.07 [...] / / Volume Laterality 03/25/2005 2:38 PM RESEARCH DEVELOPMENT MANAGER Lena Chiu APRN, ROSA LAB_1 Performing Organization Address City/State/ZIP Code Phon e Number HP CONVERSION documented in this encounter Visit Diagnoses Not on filedocumented in this encounter Care Teams Angledozer Operator Relationship Specialty Start Date End Date Brisa Smith PA-C PCP - General 07/30/10 04/18/15 [address] [place] [address] documented as of this encounter
--- OUTSIDE RECORDS SUMMARY | 2022-03-28 13:30 | XMS_ITS | Encounter Summary ---
:1990 Author Organization [facility] Address [address] [place] [address] Care Team Providers Name Role Phone Brisa Smith PA-C Primary Care Provider Encounter Details Date Type Department Care Team Description 07/16/2006 PN Conversion Only HELENA CONVERSION [address] [place] [address] Social History Tobacco Use Types Packs/Day Years Used Date Smoking Tobacco: Never Assessed Sex Assigned at Date Recorded Not on file documented as of this encounter Plan of Treatment Not on filedocumented as of this encounter Visit Diagnoses Not on filedocumented in this encounter Care Teams Fisher Weir Relationship Specialty Start Date End Date Brisa Smith PA-C PCP - General 07/30/10 04/18/15 [address] [place], [place] [address] documented as of this encounter
--- OUTSIDE RECORDS SUMMARY | 2022-03-28 13:30 | XMS_ITS | Encounter Summary ---
:1990 [facility] Address [address], [place] [address] Care Team Providers Name Role Phone Brisa Smith PA-C Primary Care Provider Reason for Visit Reason Comments Other Encounter Details Date Type Department Care Team Description 06/25/2005 Telephone [employer] [facility] [place], Message Other [address] [place] [address] Social History Tobacco Use Types Packs/Day Years Used Date Smoking Tobacco: Never Assessed Sex Assigned at Date Recorded Not on file documented as of this encounter Progress Notes Chelo Montiel - 06/25/2005 11:13 AM CST Phone Note filed by Chelo Montiel at 08/14/10121 Author: Chelo Montiel Service: (none) Author Type: (none) Filed: 08/14/10121 Note Time: 06/25/05 1113 Status: Signed Iap Displays Analyst: Rudy Strong Pt's mom (Mildred) calling to inform Lena Chiu, that Infectious Disease won't see people under 18 years old.(Lena had referred her daughter there) She can be reached at [phone], and you are able to leave a detailed messgae. Created on 25Jun2005 11:13am by CHELO MONTIEL On 25Jun2005 3:00pm LENA CHIU wrote: Dawit Weiner MD is a pediatric MD in [facility]. Phone #[phone]. If she cannot get in with Dr Weiner, then Wolf Bran MD at [facility] [phone]. Acknowledged by LENA CHIU on 3:00pm On 25Jun2005 3:19pm LENA LEE wrote: Pt's mother was called and given the above information. TH UNIT SUPERVISOR documented in this encounter Plan of Treatment Not on filedocumented as of this encounter Visit Diagnoses Not on filedocumented in this encounter Care Teams Commercial Engineer Relationship Specialty Start Date End Date Brisa Smith PA-C PCP - General 07/30/10 04/18/15 [address] [place] [address] documented as of this encounter
--- OUTSIDE RECORDS SUMMARY | 2022-03-28 13:30 | XMS_ITS | Encounter Summary ---
:[address] [facility] Address [address] [place] [address] Care Team Providers Name Role Phone Brisa Smith PA-C Primary Care Provider Encounter Details Date Type Department Care Team Description 05/22/2005 PN Conversion Only [place] [facility] Ellen Vieira [address] [address]. [facility] [place] [address] [facility] [place], [place] [address] Social History Tobacco Use Types Packs/Day Years Used Date Smoking Tobacco: Never Assessed Sex Assigned at Date Recorded Not on file documented as of this encounter Plan of Treatment Not on filedocumented as of this encounter Procedures Procedure Name Priority Date/Time Associated Diagnosis Comme nts STREP GROUP A Routine 05/22/2005 6:16 PM Results for this ANTIGEN TEST PUBLICATIONS WRITER procedure are i n the results section. BETA STREP FOLLOWUP Routine 05/22/2005 6:16 PM Re sults for this PUBLICATIONS WRITER procedure are i n the results section. documented in this encounter Results Strep Group A Antigen Test (05/22/2005 6:16 PM PUBLICATIONS WRITER) Analysis Performed At Patho logist Time Signature Strep Group A Negative Negative HP CONVERSION Antigen Test Comment: Culture to follow. Specimen (Source) Anatomical Collection Method Collection Time Re ceived Time Location / / Volume Laterality 05/22/2005 6:16 PM PUBLICATIONS WRITER Ellen Vieira PA-C LAB_1 Performing Organization Address City/State/ZIP Code Phon e Number HP CONVERSION Beta Strep Followup (05/22/2005 6:16 PM PUBLICATIONS WRITER) P athologist Signature Strep Screen SEE TEXT HP CONVERSION Comment: Patient: MINO POSADAS Rapid Strep Follow up Culture @ ? Collected: ?181 Source: Throat ?Processed: ?1818 ? 1V Final Report ------ ?1327 No beta hemolytic Strep group A isolated . @ = Rapid F/U Cult Performed at ??[address] [place], [place] ?[address] Specimen (Source) Anatomical Collection Method Collection Time Re ceived Time Location / / Volume Laterality 05/22/2005 6:16 PM PUBLICATIONS WRITER Ellen Vieira PA-C LAB_1 Performing Organization Address City/State/ZIP Code Phon e Number HP CONVERSION documented in this encounter Visit Diagnoses Not on filedocumented in this encounter Care Teams Director Metabolism Relationship Specialty Start Date End Date Brisa Smith PA-C PCP - General 07/30/10 04/18/15 [address] [place], [place] [address] documented as of this encounter
--- OUTSIDE RECORDS SUMMARY | 2022-03-28 13:30 | XMS_ITS | Encounter Summary ---
:1990 Author Organization [facility] Address [address], [place] [address] Care Team Providers Name Role Phone Brisa Smith PA-C Primary Care Provider Reason for Visit Reason Comments Other Encounter Details Date Type Department Care Team Description 06/21/2005 Telephone [employer] [facility], Message Other [address] [employer] [place] [address] Social History Tobacco Use Types Packs/Day Years Used Date Smoking Tobacco: Never Assessed Sex Assigned at Date Recorded Not on file documented as of this encounter Progress Notes Felipe Guevara - 06/21/2005 9:19 AM CST Phone Note filed by Felipe Guevara at 08/14/100 Author: Felipe Guevara Service: (none) Author Type: (none) Filed: 08/14/10114 Note Time: 06/21/05918 Status: Signed Team Lead: Rudy Tae Patient's mom, Mari, balbina. She is looking for a copy of some labs done after February 26. She is not sure of the exact dates but is interested in certain test results. Please call mom at [phone]. It is okay to leave a message. Created on 21Jun2005 9:19am by FELIPE GUEVARA On 21Jun2005 11:13am AKHIL LEMON wrote: Normal results for blood work left. Advised to call back if she has questions. RNAL AUDIT SENIOR MANAGER documented in this encounter Plan of Treatment Not on filedocumented as of this encounter Visit Diagnoses Not on filedocumented in this encounter Care Teams Catheterization Laboratory Technician Relationship Specialty Start Date End Date Brisa Smith PA-C PCP - General 07/30/10 04/18/15 [address] [place] [address] documented as of this encounter
--- OUTSIDE RECORDS SUMMARY | 2022-03-28 13:30 | XMS_ITS | Encounter Summary ---
:1990 Author Organization [facility] Address [address] [place] [address] Care Team Providers Name Role Phone Brisa Smith PA-C Primary Care Provider Encounter Details Date Type Department Care Team Description [facility] REAL ESTATE ASSESSOR, CORK SORTER [address] [place] [address] [phone] (Wo rk) Social History Tobacco Use Types Packs/Day Years Used Date Smoking Tobacco: Never Assessed Sex Assigned at Date Recorded Not on file documented as of this encounter Last Filed Vital Signs Vital Sign Reading Time Taken Comments Blood Pressure 118/78 06/25/2005 8:09 AM LAY OUT DRAFTER Pulse - - Temperature 36.3 ??C (97.3 ??F) 06/25/2005 8:09 AM LAY OUT DRAFTER C: 36 .3 C Respiratory Rate - - Oxygen Saturation - - Inhaled Oxygen Concentration - - Weight 67.6 kg (148 lb 15.8 oz) 06/25/2005 8:09 AM LAY OUT DRAFTER C: 67.6kg Height - - Body Mass Index - - documented in this encounter Progress Notes Lena Chiu - 06/25/2005 12:01 AM CST Progress Notes signed by KIMBERLY Guerrier at 06/27/05 1716 Author: KIMBERLY Guerrier Service: (none) Author Type: Nurse Practitioner Filed: 08/17/10 1145 Note Time: 06/25/05 0001 Status: Signed Mint Wafer Depositor: KIMBERLY Guerrier (Nurse Practitioner) Clinic Visit SUBJECTIVE: [...] is remained on some multivitamins and a Greenlandic herbal product. If she stopped these for any period time she seems to be worse and that's why she continues on these products. Reports exposure to barrel stave inspector who was diagnosed with cytomegalovirus one week [...] face to face counseling and per plan. OUT DRAFTER documented in this encounter Plan of Treatment Not on filedocumented as of this encounter Visit Diagnoses Not on filedocumented in this encounter Care Teams Beach Attendant Relationship Specialty Start Date End Date Brisa Smith PA-C PCP - General 07/30/10 04/18/15 [address] [place] [address] documented as of this encounter
--- OUTSIDE RECORDS SUMMARY | 2022-03-28 13:30 | XMS_ITS | Encounter Summary ---
:1990 Author Organization [facility] Address [address] [place], [place] [address] [address] Care Team Providers Name Role Phone Brisa Smith PA-C Primary Care Provider Encounter Details Date Type Department Care Team Description 06/28/2005 Office Visit [facility] Gabo Weiner MD Subspecialty [address] [place], [place] [address] [place] [address] [phone] Social History Tobacco Use Types Packs/Day Years Used Date Smoking Tobacco: Never Assessed Sex Assigned at Date Recorded Not on file documented as of this encounter Last Filed Vital Signs Vital Sign Reading Time Taken Comments Blood Pressure 110/72 06/28/2005 2:55 PM HYDROTHERAPIST Pulse 65 06/28/2005 2:55 PM HYDROTHERAPIST Temperature - - Respiratory Rate - - Oxygen Saturation - - Inhaled Oxygen Concentration - - Weight 66.7 kg (146 lb 15.7 oz) 06/28/2005 2:55 PM C: 6 6.7kg HYDROTHERAPIST Height 172.7 cm (5' 8) 06/28/2005 2:55 PM C: 172.7cm HYDROTHERAPIST Body Mass Index 22.35 06/28/2005 2:55 PM HYDROTHERAPIST Body Mass Index Percentile 71.67 % 06/28/2005 2:55 PM HYDROTHERAPIST Growth Chart: CDC (Girls, 2-20 Years) documented in this encounter Progress Notes Jarrett Weiner MD - 06/28/2005 12:01 AM CST Progress Notes signed by Jarrett Weiner MD at 07/05/05 0954 Author: Jarrett Weiner MD Service: (none) Author Type: Physician Filed: 08/17/10 1150 Note Time: 06/28/052014 Status: Signed Production Tool Engineer: Jarrett Weiner MD (Physician) NAME: MINO POSADAS MR: [id number] ACCT: [id number] VISIT: [id number] DICTATING CLINICIAN: JARRETT WEINER MD JOB: [id number] CLINIC PROGRESS NOTE DATE OF VISIT: 06/28/2005 [...] X-rays were done at that time at [facility]. She was not hospitalized. Recent volleyball tournament that made her totally exhausted. She has missed three plus weeks of school this year. She has three younger siblings. Born and raised in [place]. No travel history. No pets. CURRENT MEDICATIONS: [...] Coronal CT of her sinuses, chest x-ray, SHACTOR HELPER examination, CT of her abdomen, urinalysis. TT: [address]: 35 minutes. I counseled Mino and her mother concerning the nature of her symptoms, our approach to this issue, the importance of staying in school regardless of symptoms, work-up and followup. CC: LENA CHIU NP SCM:[id number] C: 07/02/05 12:22 DOCUMENT: [id number] OTHERAPIST documented in this encounter Plan of Treatment Not on filedocumented as of this encounter Visit Diagnoses Not on filedocumented in this encounter Care Teams Jewel Sawyer Relationship Specialty Start Date End Date Brisa Smith PA-C PCP - General 07/30/10 04/18/15 [address] [place] [address] documented as of this encounter
--- OUTSIDE RECORDS SUMMARY | 2022-03-28 13:30 | XMS_ITS | Encounter Summary ---
:1990 Author Organization [facility] Address [address], [place] [address] Care Team Providers Name Role Phone Brisa Smith PA-C Primary Care Provider Reason for Visit Reason Comments Other Encounter Details Date Type Department Care Team Description 04/04/2005 Telephone Your Policy Manager [facility], Message Other [address] [place] [address] Social History Tobacco Use Types Packs/Day Years Used Date Smoking Tobacco: Never Assessed Sex Assigned at Date Recorded Not on file documented as of this encounter Progress Notes Lena Chiu - 04/04/2005 6:22 PM CST Phone Note filed by KIMBERLY Guerrier at 08/13/102299 Author: KIMBERLY Guerrier Service: (none) Author Type: Nurse Practitioner Filed: 08/13/102299 Note Time: 04/04/051821 Status: Signed Operating System Programmer: KIMBERLY Guerrier (Nurse Practitioner) Please notify ALL [...] is doing, but could stop the other herbal/italian products and see how she does. I [...] Mom calling for and received above msg. S EFFECTIVENESS MANAGER documented in this encounter Plan of Treatment Not on filedocumented as of this encounter Visit Diagnoses Not on filedocumented in this encounter Care Teams Job Setter Relationship Specialty Start Date End Date Brisa Smith PA-C PCP - General 07/30/10 04/18/15 [address] [place] [address] documented as of this encounter
--- OUTSIDE RECORDS SUMMARY | 2022-03-28 13:30 | XMS_ITS | Encounter Summary ---
:1990 Author [facility] Address [address] [place] [address] Care Team Providers Name Role Phone Brisa Smith PA-C Primary Care Provider Encounter Details Date Type Department Care Team Description 07/04/2005 Office Visit [facility] [address] Ear, Luz Fajardo MD Nose, and Throat [address] [facility] [place] [address] [place], [place] [address] [phone] Social History Tobacco Use Types Packs/Day Years [...] 1156 Note Time: 07/04/05 0001 Status: Signed Route Driver Salesperson: Luz Fajardo MD (Physician) NAME: MINO POSADAS MR: [id number] ACCT: [id number] VISIT: [id number] DICTATING CLINICIAN: LUZ FAJARDO MD JOB: [id number] CLINIC PROGRESS NOTE DATE OF VISIT: 07/04/2005 [...] a visit with a facial pain TMJ senior clinical consultant to see if there is any muscle [...] as needed basis. CC: JARRETT WEINER MD [facility] SMS:[id number] C: 07/04/05 14:01 DOCUMENT: [id number] [place] STORE ASSISTANT documented in this encounter Plan of Treatment Not on filedocumented as of this encounter Visit Diagnoses Not on filedocumented in this encounter Care Teams Instrument Mechanic Weapons System Relationship Specialty Start Date End Date Brisa Smith PA-C PCP - General 07/30/10 04/18/15 [address] [place] [address] documented as of this encounter
--- OUTSIDE RECORDS SUMMARY | 2022-03-28 13:30 | XMS_ITS | Encounter Summary ---
:1990 Author Organization [facility] Address [address] [address] Care Team Providers Name Role Phone Brisa Smith PA-C Primary Care Provider Reason for Visit Reason Comments Other Encounter Details Date Type Department Care Team Description 03/05/2005 Telephone [facility] Genoveva Villasenor LPN Other [address] [place] [address] Social History Tobacco Use Types Packs/Day Years Used Date Smoking Tobacco: Never Assessed Sex Assigned at Date Recorded Not on file documented as of this encounter Progress Notes [facility] - 03/05/2005 7:57 AM CST Phone Note filed by [employer] at 08/13/102207 Author: [employer] Service: (none) Author Type: (none) Filed: 08/13/102207 Note Time: 03/05/05756 Status: Signed Reflow Operator: [employer] Mom Shemar) calling to request a work-in this afternoon. She wants Hellen to get a mono test, and you have a few 15 minute openings. She can be reached at [phone]. Created on 05Mar2005 7:57am by DAWSON DILLON [...] needed. Acknowledged by GENOVEVA JARQUIN on 10:02am 911 EMERGENCY DISPATCHER documented in this encounter Plan of Treatment Not on filedocumented as of this encounter Visit Diagnoses Not on filedocumented in this encounter Care Teams Header Operator Relationship Specialty Start Date End Date Brisa Smith PA-C PCP - General 07/30/10 04/18/15 [address] [place] [address] documented as of this encounter
--- OUTSIDE RECORDS SUMMARY | 2022-03-28 13:31 | XMS_ITS | Encounter Summary ---
:1990 Author Organization [facility] Address [address] [address] Care Team Providers Name Role Phone Brisa Smith PA-C Primary Care Provider Encounter Details Date Type Department Care Team Description 05/10/2004 PN Conversion Only [facility]LE[facility] CONVERSION Ralph, [address], IMPROVEMENT ADVISOR, [place] [address] [address] [place] [address] (Wo rk) Social History Tobacco Use Types Packs/Day Years Used Date Smoking Tobacco: Never Assessed Sex Assigned at Date Recorded Not on file documented as of this encounter Plan of Treatment Not on filedocumented as of this encounter Procedures Procedure Name Priority Date/Time Associated Comments Diagnosis BORDETELLA PERTUSSIS / Routine 05/10/2004 10:26 R esults for this PARAPERTUSSIS AM BUSINESS SERVICES ASSISTANT procedure are in WASH-NASAL the results section. documented in this encounter Results Bordetella Pertussis And Para Pcr (05/10/2004 10:26 AM BUSINESS SERVICES ASSISTANT) [facility] Method Time Signature Specimen Source NASAL [...] performed pursuant to an ag reement with [employer] The performance characteristics of this test were validated by [employer]. The U.S. Food and Drug Administration (FDA) has not ap proved this test. The results are not intended to be used as the sole means for clinical diagnosis or pat ient management decisions. [employer] is authorized under [facility] Laboratory Improvement Amendments (CLIA) and [...] / / Volume Laterality 05/10/2004 10:26 AM BUSINESS SERVICES ASSISTANT Lillian Rosas APRN, CATEGORY CONSULTANT LAB_1 Performing Organization Address City/State/ZIP Code Phon e Number HP CONVERSION documented in this encounter Visit Diagnoses Not on filedocumented in this encounter Care Teams Gas Turbine Powerplant Mechanic Relationship Specialty Start Date End Date Brisa Smith PA-C PCP - General 07/30/10 04/18/15 [address] [place] [address] documented as of this encounter
--- OUTSIDE RECORDS SUMMARY | 2022-03-28 13:31 | XMS_ITS | Encounter Summary ---
:1990 Author Organization [facility] Address [address] [place] [address] Care Team Providers Name Role Phone Brisa Smith PA-C Primary Care Provider Encounter Details Date Type Department Care Team Description 08/29/2004 PN Conversion Only HELENA Mary Ansari, [address] [place] [address] [address] [place] [address] (Wo rk) Social History Tobacco Use Types [...] Strep Follow up Culture @ ? Collected: ??[id number] ??1121 Source: Throat ?Processed: ??[id number] ??1121 Final Report ------ ?[id number] ??1013 No beta hemolytic Strep group A isolated . @ = Rapid F/U Cult Performed at ??[address] [place] ?[address] Specimen (Source) Anatomical Collection Method Collection Time Re ceived Time Location / / Volume Laterality 08/29/2004 11:21 AM CDT Mary Hernandes MD LAB_1 Performing Organization Address City/[facility]/ZIP Code Phon e Number HP CONVERSION (ABNORMAL) Complete Blood Count-W/Diff (08/29/2004 11:01 AM CDT) [facility] gist Method Time Signature White Blood [...] - HP CONVERSION Hemoglobin Conc 36.5 gm/dL [place] RDW 12.8 11.0 - HP CONVERSION 15.0 [...] CONVERSION Mononucleosis Screen (08/29/2004 11:01 AM CDT) [facility] gist Method Time Signature Infectious Negative Negative HP CONVERSION Mononucleosis Screen Specimen (Source) Anatomical Collection Method Collection Time Re ceived Time Location / / Volume Laterality 08/29/2004 11:01 AM CDT Mary Hernandes MD LAB_1 Performing Organization Address City/State/ZIP Code Phon e Number HP CONVERSION documented in this encounter Visit Diagnoses Not on filedocumented in this encounter Care Teams Wet Mixer Relationship Specialty Start Date End Date Brisa Smith PA-C PCP - General 07/30/10 04/18/15 [address] [place] [address] documented as of this encounter
--- OUTSIDE RECORDS SUMMARY | 2022-03-28 13:31 | XMS_ITS | Encounter Summary ---
:[address] [facility] Address [address] [place] [address] Care Team Providers Name Role Phone Brisa Smith PA-C Primary Care Provider Encounter Details Date Type Department Care Team Description 07/10/2004 Office Visit [facility] [place] [address] [place], [place] [address] [place] [address] [phone] Social History Tobacco Use Types Packs/Day Years [...] 0452 Note Time: 07/10/04 0001 Status: Signed Gelatin Powder Mixer: Ailin Piña MD (Physician) NAME: MINO POSADAS MR: [id number] ACCT: [id number] VISIT: [id number] DICTATING CLINICIAN: AILIN PIÑA MD JOB: [id number] CLINIC PROGRESS NOTE DATE OF VISIT: 07/10/2004 [...] for five days. FINAL DIAGNOSIS: Otitis media. STR:[id number] C: 07/11/04 15:45 DOCUMENT: [id number] documented in this encounter Plan of Treatment Not on filedocumented as of this encounter Visit Diagnoses Not on filedocumented in this encounter Care Teams Tower Erector Relationship Specialty Start Date End Date Brisa Smith PA-C PCP - General 07/30/10 04/18/15 [address] [place] [address] documented as of this encounter
--- OUTSIDE RECORDS SUMMARY | 2022-03-28 13:31 | XMS_ITS | Encounter Summary ---
:1990 Author Organization [facility] Address [address] [place] [address] Care Team Providers Name Role Phone Brisa Smith PA-C Primary Care Provider Encounter Details Date Type Department Care Team Description 03/28/2004 PN Conversion Only HELENA CONVERSION Mary Hernandes, [address] [place] [address] [address] [place] [address] (Wo rk) Social History Tobacco Use Types Packs/Day Years Used Date Smoking Tobacco: Never Assessed Sex Assigned at Date Recorded Not on file documented as of this encounter Plan of Treatment Not on filedocumented as of this encounter Visit Diagnoses Not on filedocumented in this encounter Care Teams Prosthodontist/Educator Relationship Specialty Start Date End Date Brisa Smith PA-C PCP - General 07/30/10 04/18/15 [address] [place], [place] [address] documented as of this encounter
--- OUTSIDE RECORDS SUMMARY | 2022-03-28 13:31 | XMS_ITS | Encounter Summary ---
:1990 Author Organization [facility] Address [address] [place] [address] Care Team Providers Name Role Phone Brisa Smith PA-C Primary Care Provider Encounter Details Date Type Department Care Team Description 07/10/2004 PN Conversion Only [place] [facility] [address] [address] [place] [address] Social History Tobacco Use Types Packs/Day Years Used Date Smoking Tobacco: Never Assessed Sex Assigned at Date Recorded Not on file documented as of this encounter Plan of Treatment Not on filedocumented as of this encounter Visit Diagnoses Not on filedocumented in this encounter Care Teams Sheet Metal Worker Helper Relationship Specialty Start Date End Date Brisa Smith PA-C PCP - General 07/30/10 04/18/15 [address] [place], [place] [address] documented as of this encounter
--- OUTSIDE RECORDS SUMMARY | 2022-03-28 13:31 | XMS_ITS | Encounter Summary ---
:1990 Author Organization [email or web address] Address [address], [place] [address] Care Team Providers Name Role Phone Brisa Smith PA-C Primary Care Provider Reason for Visit Reason Comments Other Encounter Details Date Type Department Care Team Description 04/10/2004 Telephone [facility] Brittany Turner Other Formerly [facility], [facility]5 [employer] [place], [place] [id number] Social History Tobacco Use Types Packs/Day Years Used Date Smoking Tobacco: Never Assessed Sex Assigned at Date Recorded Not on file documented as of this encounter [facility], [facility] - 04/10/2004 4:30 PM CST Phone Note filed by [employer] at 08/13/10 1539 Author: [employer] Service: (none) Author Type: (none) Filed: 08/13/10 1539 Note Time: 04/10/04 1630 Status: Signed Barrel Tester And Drainer: [employer] Hellen's mom is calling with test results from a rash on her face. She sees Dr.Kathleen Metz Please call.#[phone] Created on 10Apr2004 4:30pm by GRISELDA BAKER On 10Apr2004 4:47pm BRITTANY TURNER wrote: 2nd message, 1st message addressed and sent to Dr. Hernandes Acknowledged by BRITTANY TURNER on 7:54am documented in this encounter Plan of Treatment Not on filedocumented as of this encounter Visit Diagnoses Not on filedocumented in this encounter Care Teams Oncologist Relationship Specialty Start Date End Date Brisa Smith PA-C PCP - General 07/30/10 04/18/15 [address] [place] [address] documented as of this encounter
--- OUTSIDE RECORDS SUMMARY | 2022-03-28 13:31 | XMS_ITS | Encounter Summary ---
:1990 Author Organization [facility] Address [address] [place] [address] Care Team Providers Name Role Phone Brisa Smith PA-C Primary Care Provider Encounter Details Date Type Department Care Team Description 10/26/2004 Office Visit [facility] Jose Flynn MD Orthopedics [address] [place] [address] Social History Tobacco Use Types Packs/Day Years Used Date Smoking Tobacco: Never Assessed Sex Assigned at Date Recorded Not on file documented as of this encounter Progress Notes Ranjith Garcia - 10/26/2004 12:01 AM CDT Progress Notes signed by at 10/30/04 0637 Author: Ranjith Garcia MD Service: (none) Author Type: (none) Filed: 08/17/10 0654 Note Time: 10/26/04 0001 Status: Signed Investigative Shopper: Rudy Conversion NAME: MINO POSADAS MR: [id number] ACCT: [id number] VISIT: [id number] DICTATING CLINICIAN: RANJITH GARCIA MD,MPH JOB: [id number] CLINIC PROGRESS NOTE DATE OF VISIT: 10/26/2004 [...] an MRI scan of her right wrist. DGK:[id number] C: 10/28/04 13:48 DOCUMENT: [id number] NSIC MATERIALS ENGINEER documented in this encounter Plan of [...] is seen on these films. ljc/ ?? [id number] Dictating RIVERA [place] RADIOLOGIST Procedure Note Rivera Corbett - 06/29/2016 The previously noted tiny density descri bed adjacent to the medial aspect of the ulnar distal epiphysis on the films of 10/22/04 is not identified on today's films. No bony dis placement or complication is seen on these films. lj/ [id number] Dictating RIVERA [place] RADIOLOGIST Jose Garcia MD RAD GD documented in this encounter Visit Diagnoses Not on filedocumented in this encounter Care Teams Desktop Specialist Relationship Specialty Start Date End Date Brisa Smith PA-C PCP - General 07/30/10 04/18/15 [address] [place] [address] documented as of this encounter
--- OUTSIDE RECORDS SUMMARY | 2022-03-28 13:31 | XMS_ITS | Encounter Summary ---
:1990 Author Organization [facility] Address [address] [place] [address] Care Team Providers Name Role Phone Brisa Smith PA-C Primary Care Provider Encounter Details Date Type Department Care Team Description 07/31/2004 Office Visit [facility] Rita Carlisle MD [facility] [employer] [address] [place] [address] [phone] (Wo rk) Social History Tobacco Use Types [...] 0515 Note Time: 07/31/04 0001 Status: Signed Realty Specialist: Rita Ruiz MD (Physician) NAME: MINO POSADAS MR: [id number] ACCT: [id number] VISIT: [id number] DICTATING CLINICIAN: RITA RUIZ MD JOB: [id number] CLINIC PROGRESS NOTE DATE OF VISIT: 07/31/2004 [...] persistent pain, she should follow up p.r.n. PNR:[id number] C: 08/01/04 13:34 DOCUMENT: [id number] documented in this encounter Plan of Treatment [...] on filedocumented in this encounter Care Teams Svp Marketing Relationship Specialty Start Date End Date Brisa Smith PA-C PCP - General 07/30/10 04/18/15 [address] [place] [address] documented as of this encounter
--- OUTSIDE RECORDS SUMMARY | 2022-03-28 13:31 | XMS_ITS | Encounter Summary ---
:1990 Author Organization [facility] Address [address] [place] [address] Care Team Providers Name Role Phone Brisa Smith PA-C Primary Care Provider Reason for Visit Reason Comments Other Encounter Details Date Type Department Care Team Description 08/01/2004 Telephone [facility] Rita Carlisle MD Other [facility] [employer] [address] [place] [address] [place] [address] [phone] (Wo rk) Social History Tobacco Use Types Packs/Day Years Used Date Smoking Tobacco: Never Assessed Sex Assigned at Date Recorded Not on file documented as of this encounter [facility], Message - 08/01/2004 7:52 AM CDT Phone Note filed by [employer] at 08/13/101737 Author: [employer] Service: (none) Author Type: (none) Filed: 08/13/10 173 Note Time: 08/01/04751 Status: Signed Corn Crop Supervisor: [employer] X-ray calling as requested, right wrist is negative. Created on 01Aug2004 7:52am by DAWSON DILLON M On 01Aug2004 1:34pm GRISELDA GIBSON wrote: Talked to mom and results of x-ray given. Acknowledged by RITA VILLEGAS on 8:04am DRIVER documented in this encounter Plan of Treatment Not on filedocumented as of this encounter Visit Diagnoses Not on filedocumented in this encounter Care Teams Trimmer Tailer Relationship Specialty Start Date End Date Brisa Smith PA-C PCP - General 07/30/10 04/18/15 [address] [place] [address] documented as of this encounter
--- OUTSIDE RECORDS SUMMARY | 2022-03-28 13:31 | XMS_ITS | Encounter Summary ---
:1990 Author Organization [facility] Address [address] [place] [address] Care Team Providers Name Role Phone Brisa Smith PA-C Primary Care Provider Reason for Visit Reason Comments Other Encounter Details Date Type Department Care Team Description 04/09/2004 Telephone [facility] Brittany Turner [address] [place], [place] [address], [place] [id number] Social History Tobacco Use Types Packs/Day Years Used Date Smoking Tobacco: Never Assessed Sex Assigned at Date Recorded Not on file documented as of this encounter [facility], Message - 04/09/2004 1:20 PM CST Phone Note filed by [employer] at 08/13/10 9998 Author: [employer] Service: (none) Author Type: (none) Filed: 08/13/10 1537 Note Time: 04/09/04 1320 Status: Signed Linotypist: [employer] MESSAGE TO CARE TEAM NAME OF CALLER:Rene (Mom) NAME OF CLINICIAN:Ashkan Hernandes MESSAGE:Pt. had a culture done 03/30. Mom would like to have the results. PHARMACY NAME: PHARMACY PHONE #: CALL BACK PHONE #:[phone] BEST TIME TO CALL BACK:any Is it [...] in this encounter Care Teams Customer Success Specialist Relationship Specialty Start Date End Date Brisa Smith PA-C PCP - General 07/30/10 04/18/15 [address] [place] [address] documented as of this encounter
--- OUTSIDE RECORDS SUMMARY | 2022-03-28 13:31 | XMS_ITS | Encounter Summary ---
:1990 Author Organization [facility] Address [address], [place] [address] Care Team Providers Name Role Phone Brisa Smith PA-C Primary Care Provider Reason for Visit Reason Comments Other Encounter Details Date Type Department Care Team Description 05/14/2004 Telephone [facility], Message Other [address] [place] [address] Social History Tobacco Use Types Packs/Day Years Used Date Smoking Tobacco: Never Assessed Sex Assigned at Date Recorded Not on file documented as of this encounter [facility], Message - 05/14/2004 2:07 PM CST Phone Note filed by [employer] at 08/13/10 1610 Author: [employer] Service: (none) Author Type: (none) Filed: 08/13/10 1610 Note Time: 05/14/04 1407 Status: Signed Clerical Administrator: [facility] MESSAGE TO CARE TEAM NAME OF CALLER:Mildred (mom) NAME OF CLINICIAN:Lillian Gaspar NP MESSAGE:Mildred is calling for test results for Hellen, please call to discuss. She also would like the results for Xander's (her son) test results as well. PHARMACY NAME: PHARMACY PHONE #: CALL BACK PHONE #:[phone] (home) BEST TIME TO CALL BACK:anytime Is [...] on filedocumented in this encounter Care Teams High School Auto Repair Teacher Relationship Specialty Start Date End Date Brisa Smith PA-C PCP - General 07/30/10 04/18/15 [address] [place] [address] documented as of this encounter
--- OUTSIDE RECORDS SUMMARY | 2022-03-28 13:31 | XMS_ITS | Encounter Summary ---
:1990 Author Organization [facility] Address [address] [place] [address] Care Team Providers Name Role Phone Brisa Smith PA-C Primary Care Provider Encounter Details Date Type Department Care Team Description 10/22/2004 Office Visit Chloe Stacy MD [facility] [employer] [facility] [address] [address] [place] [address] [phone] (Wo rk) Social History Tobacco Use Types [...] Chloe Mcmanus MD at 10/24/04 1223 Author: Clhoe Mcmanus MD Service: (none) Author Type: Physician Filed: 08/17/10 0649 Note Time: 10/22/042016 Status: Signed Teacher Counselor: Chloe Mcmanus MD (Physician) NAME: MINO POSADAS MR: [id number] ACCT: [id number] VISIT: [id number] DICTATING CLINICIAN: CHLOE MCMANUS MD JOB: [id number] CLINIC PROGRESS NOTE DATE OF VISIT: 10/22/2004 SUBJECTIVE: : 1990. Reason for visit: Wrist pain. [id number], 48 hours prior to this exam, had her right hand slammed in between her and another lacrosse player, took herself out of the game briefly, did not tell anybody, was able to finish and reports immediate swelling. An therapy assistant, on the sidelines, examined it, re-examined it [...] for film review and re-examination October 26. SFP:[id number] C: 10/23/04 12:28 DOCUMENT: [id number] documented in this encounter Plan of Treatment [...] clude a tiny Salter-Herbert type 2 fracture. [id number] Dictating NELSON TORRES Radiologist Narrative 10/22/2004 1:47 [...] clude a tiny Salter-Herbert type 2 fracture. [id number] Dictating NELSON TORRES Radiologist Chloe Mcmanus MD RAD GD documented in this encounter Visit Diagnoses Not on filedocumented in this encounter Care Teams Courtesy Bus Driver Relationship Specialty Start Date End Date Brisa Smith PA-C PCP - General 07/30/10 04/18/15 [address] [place] [address] documented as of this encounter
--- OUTSIDE RECORDS SUMMARY | 2022-03-28 13:31 | XMS_ITS | Encounter Summary ---
:1990 Author Organization [facility] Address [address] [place] [address] Care Team Providers Name Role Phone Brisa Smith PA-C Primary Care Provider Encounter Details Date Type Department Care Team Description 05/10/2004 Office Visit [place] Rosas, Caitlin Stern APR[place] [address] [address] [phone] [place] [phone] (Wo rk) Social History Tobacco Use Types [...] 0339 Note Time: 05/10/04 0001 Status: Signed Packing And Wrapping Supervisor: JOVANNA Antonio (Nurse Practitioner) NAME: MINO POSADAS MR: [id number] ACCT: [id number] VISIT: [id number] DICTATING CLINICIAN: JOVANNA ANTONIO JOB: [id number] CLINIC PROGRESS NOTE DATE OF VISIT: 05/10/2004 SUBJECTIVE: Mino is in today with a three-week history of a deep, persistent cough. Mom says that cough has gone on since [place]. She has really never felt good during [...] five days. Will call with pertussis results. EAC:[id number] C: 05/10/04 21:08 DOCUMENT: [id number] INTEGRITY CONSULTANT documented in this encounter Plan of Treatment Not on filedocumented as of this encounter Procedures Procedure Name Priority Date/Time Associated Diagnosis Comme nts XR CHEST 2 VIEWS Routine 05/10/2004 9:51 AM Resul ts for this DATA INTEGRITY CONSULTANT procedure are i n the results section. documented in this encounter Results XR Chest 2 Views (05/10/2004 9:51 AM DATA INTEGRITY CONSULTANT) Anatomical Region Laterality Modality Chest, Lung Other Specimen (Source) Anatomical Location Collection Method / Collectio n Time Received Time / Laterality Volume Narrative 05/10/2004 9:51 AM DATA INTEGRITY CONSULTANT Impression: Normal chest. Findings: CH1 The cardiovascular structures appear nor mal. ??No evidence of active pulmonary disease. Dictating SANJEEV RICO RADIOLOGIST Procedure Note Leena Zelaya - 06/29/2016 Impression: Normal chest. Findings: CH1 The cardiovascular structures appear nor mal. No evidence of active pulmonary disease. Dictating SANJEEV RICO RADIOLOGIST Lillian Rosas PROFESSOR OF FINE ART, HEAD FILTER TANK TENDER HELPER RAD GD documented in this encounter Visit Diagnoses Not on filedocumented in this encounter Care Teams Student Support Counselor Relationship Specialty Start Date End Date Brisa Smith PA-C PCP - General 07/30/10 04/18/15 [address] [place] [address] documented as of this encounter
--- OUTSIDE RECORDS SUMMARY | 2022-03-28 13:31 | XMS_ITS | Encounter Summary ---
:1990 Author Organization [email or web address] Address [address], [place] [address] Care Team Providers Name Role Phone Brisa Smith PA-C Primary Care Provider Reason for Visit Reason Comments Other Encounter Details Date Type Department Care Team Description 10/22/2004 Telephone [facility] Isabel Garnica RN Other [address] [employer] [place], [place] [phone] Social History Tobacco Use Types Packs/Day Years Used Date Smoking Tobacco: Never Assessed Sex Assigned at Date Recorded Not on file documented as of this encounter Progress Notes Isabel Oropeza RN - 10/22/2004 7:04 AM CDT Phone Note filed by Isabel Oropeza RN at 08/13/101901 Author: Isabel Oropeza RN Service: (none) Author Type: Registered Nurse Filed: 08/13/101901 Note Time: 10/22/04703 Status: Signed Oracle Fusion Middleware Architect: Isabel Oropeza RN (Registered Nurse) Phone Care Triage Note IMPRESSION: Wrist pain SYMPTOMS: Injured right hand yesterday playing soccer. dad on field recommended she get an xray. Top of hand is sore, unable to visual and stock associate. Mildly painful, no swelling. PATIENT INFORMATION: Problem [...] Created on 22Oct2004 7:04am by ISABEL OROPEZA RACT SEARCHER documented in this encounter Plan of Treatment Not on filedocumented as of this encounter Visit Diagnoses Not on filedocumented in this encounter Care Teams Snubber Relationship Specialty Start Date End Date Brisa Smith PA-C PCP - General 07/30/10 04/18/15 [address] [place] [address] documented as of this encounter
--- OUTSIDE RECORDS SUMMARY | 2022-03-28 13:31 | XMS_ITS | Encounter Summary ---
:1990 Author Organization [facility] Address [address] [place] [address] Care Team Providers Name Role Phone Brisa Smith PA-C Primary Care Provider Encounter Details Date Type Department Care Team Description 07/10/2004 PN Conversion Only [facility] [address] [address] [place] [address] Social History Tobacco Use Types Packs/Day Years Used Date Smoking Tobacco: Never Assessed Sex Assigned at Date Recorded Not on file documented as of this encounter Plan of Treatment Not on filedocumented as of this encounter Visit Diagnoses Not on filedocumented in this encounter Care Teams Alkylation Operator Relationship Specialty Start Date End Date Brisa Smith PA-C PCP - General 07/30/10 04/18/15 [address] [place], [place] [address] documented as of this encounter
--- OUTSIDE RECORDS SUMMARY | 2022-03-28 13:31 | XMS_ITS | Encounter Summary ---
:1990 Author Organization [facility] Address [address] [place] [address] Care Team Providers Name Role Phone Brisa Smith PA-C Primary Care Provider Encounter Details Date Type Department Care Team Description 08/29/2004 Office Visit Ashkan Yna MD [facility] [employer] [place] [facility] [address] [place] [address] [place] [address] [phone] (Wo rk) Social History Tobacco Use Types [...] 0551 Note Time: 08/29/04 0001 Status: Signed Welder Metal Fab: Ashkan Hernandes MD (Physician) NAME: MINO POSADAS MR: [id number] ACCT: [id number] VISIT: [id number] DICTATING CLINICIAN: ASHKAN HERNANDES MD JOB: [id number] CLINIC PROGRESS NOTE DATE OF VISIT: 08/29/2004 [...] her with a full course of antibiotics. KJM:[id number] C: 09/04/04 08:31 DOCUMENT: [id number] documented in this encounter Plan of Treatment Not on filedocumented as of this encounter Visit Diagnoses Not on filedocumented in this encounter Care Teams Dentures Lab Technician Relationship Specialty Start Date End Date Brisa Smith PA-C PCP - General 07/30/10 04/18/15 [address] [place] [address] documented as of this encounter
--- OUTSIDE RECORDS SUMMARY | 2022-03-28 13:32 | XMS_ITS | Encounter Summary ---
:1990 Author Organization [facility] Address [address], [place] [address] Care Team Providers Name Role Phone Brisa Smith PA-C Primary Care Provider Encounter Details Date Type Department Care Team Description 10/12/2003 PN Conversion Only [place] CONVERSION Ralph, [address] MIXING MACHINE TENDER, [place] [address] [address] [place] [address] (Wo rk) Social History Tobacco Use [...] Laterality 10/12/2003 3:20 PM CDT Lillian Rosas MIXING MACHINE TENDER, ENGINEERING LECTURER LAB_1 Performing Organization Address City/State/ZIP Code Phon e Number HP CONVERSION documented in this encounter Visit Diagnoses Not on filedocumented in this encounter Care Teams Intern Brand Relationship Specialty Start Date End Date Gastony, Brisa M, PA-C PCP - General 07/30/10 04/18/15 [address] [place] [address] documented as of this encounter
--- OUTSIDE RECORDS SUMMARY | 2022-03-28 13:32 | XMS_ITS | Encounter Summary ---
:1990 Author Organization [facility] Address [address], [place] [address] Care Team Providers Name Role Phone Brisa Smith PA-C Primary Care Provider Reason for Visit Reason Comments Other Encounter Details Date Type Department Care Team Description 03/27/2004 Telephone [facility] Chelo Álvarez Other [address] [employer] [place], [place] [phone] Social History Tobacco Use Types Packs/Day Years Used Date Smoking Tobacco: Never Assessed Sex Assigned at Date Recorded Not on file documented as of this encounter Progress Notes Chelo Álvarez - 03/27/2004 4:36 PM CST Phone Note filed by Chelo Álvarez RN at 08/13/10 4344 Author: Chelo Álvarez RN Service: (none) Author Type: (none) Filed: 08/13/10 1525 Note Time: 03/27/04 1636 Status: Signed Sawmill Equipment Operator: Chelo Álvarez RN (Registered Nurse) Pt.has [...] filedocumented in this encounter Care Teams Paper Reclaiming Machine Operator Relationship Specialty Start Date End Date Brisa Smith PA-C PCP - General 07/30/10 04/18/15 [address] [place] [address] documented as of this encounter
--- OUTSIDE RECORDS SUMMARY | 2022-03-28 13:32 | XMS_ITS | Encounter Summary ---
:1990 Author Organization [facility] Address [address] [place] [address] Care Team Providers Name Role Phone Brisa Smith PA-C Primary Care Provider Encounter Details Date Type Department Care Team Description 01/04/2004 [facility], DROP FORGE OPERATOR, MANAGER [employer] [address] [place] [address] [phone] (Wo rk) Social History Tobacco Use Types Packs/Day Years Used Date Smoking Tobacco: Never Assessed Sex Assigned at Date Recorded Not on file documented as of this encounter Progress Lena Garrison - 01/04/2004 12:01 AM CDT Progress Notes signed by KIMBERLY Guerrier at 02/16/04 192 Author: KIMBERLY Guerrier Service: (none) Author Type: Nurse Practitioner Filed: 08/17/10 0118 Note Time: 01/04/04 0001 Status: Signed Treasurer Savings Bank: KIMBERLY Guerrier (Nurse Practitioner) NAME: MINO POSADAS MR: [id number] ACCT: [id number] VISIT: [id number] DICTATING CLINICIAN: LENA CHIU NP JOB: [id number] CLINIC PROGRESS NOTE DATE OF VISIT: 01/04/2004 SUBJECTIVE: CHIEF COMPLAINT: A 13-year-old female presents for follow up cough diagnosed with pneumonia at [facility] 12/27/03. Just finished a Z-Torito. Initially felt better, now states symptoms have worsened. Has felt feverish this morning. Disrupted sleep secondary to the cough. [place] short of breath with some chest tightness [...] reviewed. Chest x-ray negative on 12/28/03 through [facility]. Mino is otherwise in good health. Active removable prosthodontist. She did attend school last week despite [...] Cough with bronchospasm, recent diagnosis of pneumonia. ALK:[id number] C: 01/05/04 08:57 DOCUMENT: [id number] documented in this encounter Plan of Treatment Not on filedocumented as of this encounter Visit Diagnoses Not on filedocumented in this encounter Care Teams Electrical Unit Rebuilder Relationship Specialty Start Date End Date Brisa Smith PA-C PCP - General 07/30/10 04/18/15 [address] [place] [address] documented as of this encounter
--- OUTSIDE RECORDS SUMMARY | 2022-03-28 13:32 | XMS_ITS | Encounter Summary ---
:1990 Author Organization [facility] Address [address], [place] [address] Care Team Providers Name Role Phone Brisa Smith PA-C Primary Care Provider Encounter Details Date Type Department Care Team Description 01/04/2004 PN Conversion Only [place] CONVERSION Lena Chiu, NET APPLICATIONS DEVELOPER, [address] [place] [address] [address] [address] (Wo rk) Social History Tobacco Use [...] Blood Count W/3Diff (01/04/2004 11:20 AM CDT) [facility] Method Time Signature White Blood Cell 4.8 [...] - HP CONVERSION Hemoglobin Conc 36.5 gm/dL [place] RDW 12.6 11.0 - HP CONVERSION 15.0 [...] on filedocumented in this encounter Care Teams Boy'S Adviser Relationship Specialty Start Date End Date Brisa Smith PA-C PCP - General 07/30/10 04/18/15 [address] [place] [address] documented as of this encounter
--- OUTSIDE RECORDS SUMMARY | 2022-03-28 13:32 | XMS_ITS | Encounter Summary ---
:1990 Author Organization [facility] Address [address] [address] Care Team Providers Name Role Phone Brisa Smtih PA-C Primary Care Provider Encounter Details Date Type Department Care Team Description 10/12/2003 PN Conversion Only [facility] Ralph, [address] Lillian Stern APRN, [place] [address] [address] [phone] [place] [phone] (Wo rk) Social History Tobacco Use Types Packs/Day Years Used Date Smoking Tobacco: Never Assessed Sex Assigned at Date Recorded Not on file documented as of this encounter Progress Notes Lillian Rosas APRN, CNP - 10/12/2003 12:01 AM CDT H&P signed by Lillian Rosas APRN, CNP at 10/18/03 1223 Author: JOVANNA Antonio Service: (none) Author Type: Nurse Practitioner Filed: 08/16/10 3481 Note Time: 10/12/03 0001 Status: Signed Table Cut Off Saw Operator: JOVANNA Antonio (Nurse Practitioner) NAME: MINO POSADAS MR: [id number] ACCT: [id number] VISIT: [id number] DICTATING CLINICIAN: JOVANNA ANTONIO JOB: [id number] CLINIC PHYSICAL DATE OF VISIT: 10/12/2003 SUBJECTIVE: [...] sunscreen. Next routine exam in three years. [id number] C: 10/12/03 17:48 DOCUMENT: [id number] documented in this encounter Plan of Treatment Not on filedocumented as of this encounter Visit Diagnoses Not on filedocumented in this encounter Care Teams Lead Material Handler Relationship Specialty Start Date End Date Brisa Smith PA-C PCP - General 07/30/10 04/18/15 [address] [place] [address] documented as of this encounter
--- OUTSIDE RECORDS SUMMARY | 2022-03-28 13:32 | XMS_ITS | Encounter Summary ---
:1990 Author Organization [facility] Address [address] [place] [address] Care Team Providers Name Role Phone Brisa Smith PA-C Primary Care Provider Encounter Details Date Type Department Care Team Description 03/28/2004 Office Visit Ashkan Yan MD [facility] [address] [place] [address] [place] [address] [phone] (Wo rk) Social History Tobacco Use Types Packs/Day Years Used Date Smoking Tobacco: Never Assessed Sex Assigned at Date Recorded Not on file documented as of this encounter Progress Notes Ashkan Heranndes MD - 03/28/2004 12:01 AM CST Progress Notes signed by Ashkan Hernandes MD at 03/29/04 1243 Author: Ashkan Hernandes MD Service: (none) Author Type: Physician Filed: 08/17/10 0251 Note Time: 03/28/04 0001 Status: Signed Feeder Tender: Ashkan Hernandes MD (Physician) NAME: MINO POSADAS MR: [id number] ACCT: [id number] VISIT: [id number] DICTATING CLINICIAN: ASHKAN HERNANDES MD JOB: [id number] CLINIC PROGRESS NOTE DATE OF VISIT: 03/28/2004 [...] in the future if she broke out. [id number] C: 03/29/04 11:01 DOCUMENT: [id number] PATIONAL HEALTH NURSING DIRECTOR documented in this encounter Plan of Treatment Not on filedocumented as of this encounter Visit Diagnoses Not on filedocumented in this encounter Care Teams Rn Bsn Relationship Specialty Start Date End Date Brisa Smith PA-C PCP - General 07/30/10 04/18/15 [address] [place] [address] documented as of this encounter
--- OUTSIDE RECORDS SUMMARY | 2022-03-28 13:32 | XMS_ITS | Encounter Summary ---
:1990 Author Organization [facility] Address [address] [address] Care Team Providers Name Role Phone Brisa Smith PA-C Primary Care Provider Encounter Details Date Type Department Care Team Description 08/17/2002 PN Conversion Only [place] [facility] Ralph, [address] APRN, [place] [address] [address] [place] [phone] (Wo rk) Social History Tobacco Use Types [...] 11:05 AM CDT) [facility]formed At [facility] Time Signature Strep Group A Negative Negative HP CONVERSION Antigen Test Comment: Culture to follow. Specimen (Source) Anatomical Collection Method Collection Time Re ceived Time Location / / Volume Laterality 08/17/2002 11:05 AM CDT Lillian Rosas APRN, REAL TIME ANALYST LAB_1 Performing Organization Address City/State/ZIP Code Phon e Number HP CONVERSION Beta Strep Followup (08/17/2002 11:05 AM CDT) P athologist Signature Strep Screen SEE TEXT HP CONVERSION Comment: Patient: MINO POSADAS Rapid Strep Follow up Culture @ ? Collected: ??[id number] ??[id number] Source: Throat ?Processed: ??[id number] ??[id number] ? G Final Report ------ ?[id number] ??[id number] No beta hemolytic Strep group A isolated . @ = Rapid F/U Cult Performed at ??[address] [place], [place] ?[address] Specimen (Source) Anatomical Collection Method Collection Time Re ceived Time Location / / Volume Laterality 08/17/2002 11:05 AM CDT Lillian Rosas APRN, REAL TIME ANALYST LAB_1 Performing Organization Address City/[facility] Phon e Number HP CONVERSION documented in this encounter Visit Diagnoses Not on filedocumented in this encounter Care Teams Foreign Language Stenographer Relationship Specialty Start Date End Date Brisa Smith PA-C PCP - General 07/30/10 04/18/15 [address] [place], [place] [address] documented as of this encounter
--- OUTSIDE RECORDS SUMMARY | 2022-03-28 13:32 | XMS_ITS | Encounter Summary ---
:1990 Author Organization [facility] Address [address] [place] [address] Care Team Providers Name Role Phone Brisa Smith PA-C Primary Care Provider Encounter Details Date Type Department Care Team Description 01/23/2004 Office Visit [facility] Rita Carlisle MD [id number] [place] [address] [phone] (Wo rk) Social History Tobacco Use Types [...] 0138 Note Time: 01/23/04 0001 Status: Signed Potato Chip Fryer: Rita Ruiz MD (Physician) [facility] Acute Clinic Visit IMPRESSION: URI Reactive [employer]ways, [...] on filedocumented in this encounter Care Teams Gusset Edger Relationship Specialty Start Date End Date Brisa Smith PA-C PCP - General 07/30/10 04/18/15 [address] [place] [address] documented as of this encounter
--- OUTSIDE RECORDS SUMMARY | 2022-03-28 13:32 | XMS_ITS | Encounter Summary ---
:1990 Author Organization [facility] Address [address], [place] [address] Care Team Providers Name Role Phone Brisa Smith PA-C Primary Care Provider Encounter Details Date Type Department Care Team Description 06/30/2003 PN Conversion Only [place] Rahat Florez PA-C [address] [place] [address] [place] [address] (Wo rk) Social History Tobacco Use Types Packs/Day Years Used Date Smoking Tobacco: Never Assessed Sex Assigned at Date Recorded Not on file documented as of this encounter Plan of Treatment Not on filedocumented as of this encounter Procedures Procedure Name Priority Date/Time Associated Diagnosis Comme nts COMPLETE BLOOD Routine 06/30/2003 8:43 AM Results for this COUNT-NO DIFF TOW MOTOR DRIVER procedure are in the results section. documented in this encounter Results (ABNORMAL) Complete Blood Count-No Diff (06/30/2003 8:43 AM TOW MOTOR DRIVER) [facility] Method Time Signature White Blood Cell [...] 32.0 - HP CONVERSION Hemoglobin Conc 36.5 [place] gm/dL RDW 12.7 11.0 - HP CONVERSION 15.0 % Platelet Count 232 150 - 450 HP CONVERSION k/cmm Specimen (Source) Anatomical Collection Method Collection Time Re ceived Time Location / / Volume Laterality 06/30/2003 8:43 AM TOW MOTOR DRIVER Rahat Mix PA-C LAB_1 Performing Organization Address City/State/ZIP Code Phon e Number HP CONVERSION documented in this encounter Visit Diagnoses Not on filedocumented in this encounter Care Teams Net Mender Relationship Specialty Start Date End Date Brisa Smith PA-C PCP - General 07/30/10 04/18/15 [address] [place] [address] documented as of this encounter
--- OUTSIDE RECORDS SUMMARY | 2022-03-28 13:32 | XMS_ITS | Encounter Summary ---
:1990 Author Organization [facility] Address [address] [place] [address] Care Team Providers Name Role Phone Brisa Smith PA-C Primary Care Provider Encounter Details Date Type Department Care Team Description 01/23/2004 PN Conversion Only [place] CONVERSION Rita Carlisle, [address] [address] [address] [place], [place] [phone] (Wo rk) Social History Tobacco Use Types [...] Strep Follow up Culture @ ? Collected: ??[id number] ??[id number] Source: Throat ?Processed: ??[id number] ??[id number] Final Report ------ ?[id number] ??[id number] No beta hemolytic Strep group A isolated . @ = Rapid F/U Cult Performed at ??[address] [place], [place] ?[address] Specimen (Source) Anatomical Collection Method Collection Time Re ceived Time Location / / Volume Laterality 01/23/2004 3:28 PM CDT Rita Carlisle MD LAB_1 Performing Organization Address City/State/ZIP Code Phon e Number HP CONVERSION documented in this encounter Visit Diagnoses Not on filedocumented in this encounter Care Teams Polygraph Technician Relationship Specialty Start Date End Date Brisa Smith PA-C PCP - General 07/30/10 04/18/15 [address] [place] [address] documented as of this encounter
--- OUTSIDE RECORDS SUMMARY | 2022-03-28 13:32 | XMS_ITS | Encounter Summary ---
:1990 Author Organization [facility] Address [address] [address] Care Team Providers Name Role Phone Brisa Smith PA-C Primary Care Provider Encounter Details Date Type Department Care Team Description 03/07/2004 PN Conversion Only [place] CONVERSION Isidro Cheatham, [address] [place] [address] Social History Tobacco Use Types Packs/Day Years Used Date Smoking Tobacco: Never Assessed Sex Assigned at Date Recorded Not on file documented as of this encounter Plan of Treatment Not on filedocumented as of this encounter Procedures Procedure Name Priority Date/Time Associated Diagnosis Comme nts STREP GROUP A Routine 03/07/2004 5:08 PM Results for this ANTIGEN TEST PIPE STEM REPAIRER procedure are i n the results section. BETA STREP FOLLOWUP Routine 03/07/2004 5:08 PM Re sults for this PIPE STEM REPAIRER procedure are i n the results section. documented in this encounter Results Strep Group A Antigen Test (03/07/2004 5:08 PM PIPE STEM REPAIRER) Analysis Performed At Patho logist Time Signature Strep Group A Negative Negative HP CONVERSION Antigen Test Comment: Culture to follow. Specimen (Source) Anatomical Collection Method Collection Time Re ceived Time Location / / Volume Laterality 03/07/2004 5:08 PM PIPE STEM REPAIRER Isidro Cheatham MD LAB_1 Performing Organization Address City/State/ZIP Code Phon e Number HP CONVERSION Beta Strep Followup (03/07/2004 5:08 PM PIPE STEM REPAIRER) P athologist Signature Strep Screen SEE TEXT HP CONVERSION Comment: Patient: POSADAS, MINO J Rapid Strep Follow up Culture @ ? Collected: ??[id number] ??[id number] Source: Throat ?Processed: ??[id number] ??[id number] Final Report ------ ?[id number] ??[id number] No beta hemolytic Strep group A isolated . @ = Rapid F/U Cult Performed at ??[address] [place] [place], [place] ?[address] Specimen (Source) Anatomical Collection Method Collection Time Re ceived Time Location / / Volume Laterality 03/07/2004 5:08 PM PIPE STEM REPAIRER Isidro Cheatham MD LAB_1 Performing Organization Address City/State/ZIP Code Phon e Number HP CONVERSION documented in this encounter Visit Diagnoses Not on filedocumented in this encounter Care Teams Residence Life Coordinator Relationship Specialty Start Date End Date Brisa Smith PA-C PCP - General 07/30/10 04/18/15 [address] [place] [address] documented as of this encounter
--- OUTSIDE RECORDS SUMMARY | 2022-03-28 13:32 | XMS_ITS | Encounter Summary ---
:1990 Author Organization [facility] Address [address] [place] [address] Care Team Providers Name Role Phone Brisa Smith PA-C Primary Care Provider Encounter Details Date Type Department Care Team Description 03/07/2004 Office Visit [facility] Isidro Cheatham MD [facility] [place] [address] Social History Tobacco Use Types [...] 0228 Note Time: 03/07/04 0001 Status: Signed Marble Polisher Hand: Isidro Cheatham MD (Physician) [facility] Acute Clinic Visit IMPRESSION: URI Chief [...] on filedocumented in this encounter Care Teams Audio Engineer Relationship Specialty Start Date End Date Brisa Smith PA-C PCP - General 07/30/10 04/18/15 [address] [place] [address] documented as of this encounter
--- OUTSIDE RECORDS SUMMARY | 2022-03-28 13:32 | XMS_ITS | Encounter Summary ---
:1990 Author Organization [facility] Address [address] [place] [address] Care Team Providers Name Role Phone Brisa Smith PA-C Primary Care Provider Encounter Details Date Type Department Care Team Description 08/15/2003 PN Conversion Only [facility] [place], [address] [facility] [place] [address] [address] [facility] [phone] [place] [address] (Wo rk) Social History Tobacco Use Types Packs/Day Years Used Date Smoking Tobacco: Never Assessed Sex Assigned at Date Recorded Not on file documented as of this encounter Progress Notes Veronique Clemons MD - 08/15/2003 12:01 AM CDT Progress Notes signed by Veronique Clemons MD at 12/17/03 1025 Author: Veronique Clemons MD Service: (none) Author Type: Physician Filed: 08/16/10 7837 Note Time: 08/15/03 0001 Status: Signed Centrifuge Separator Tender: Veronique Clemons MD (Physician) NAME: MINO CLEMENTE MR: [id number] ACCT: [id number] VISIT: [id number] DICTATING CLINICIAN: VERONIQUE CLEMONS MD JOB: [id number] CLINIC PROGRESS NOTE DATE OF VISIT: 08/15/2003 [...] X-ray of her lower leg was negative. HW:[id number] C: 08/17/03 09:01 DOCUMENT: [id number] Phone Note, Clinician - 08/14/2003 12:01 AM CDT Phone Note filed by Clinician Phone Note at 08/14/10 135 Author: Clinician Phone Note Service: (none) Author Type: Resource Filed: 08/14/10 135 Note Time: 08/14/03 0001 Status: Signed Centrifuge Separator Tender: Clinician Phone Note (Resource) - REFERRED PATIENT TO EMERGENCY ROOM * HOME PHONE:[phone] * SUBJECTIVE: PATIENT COMPLAINS OF... Limb and/or [...] MISC COMMENTS... Mom will take pt. to [facility] in [place]. CALL BY GHISLAINE THOMPSON RN 08/14/2003 08:14PM [phone] ADDENDUM: Roxanne Flores MD - 08/10/2003 12:01 AM CDT Progress Notes signed by Roxanne Flores MD at 02/07/04 1052 Author: Roxanne Flores MD Service: (none) Author Type: Physician Filed: 08/16/10 2248 Note Time: 08/10/032229 Status: Signed Centrifuge Separator Tender: Roxanne Flores MD (Physician) NAME: MINO CLEMENTE MR: [id number] ACCT: [id number] VISIT: [id number] DICTATING CLINICIAN: ROXANNE FLORES MD JOB: [id number] CLINIC PROGRESS NOTE DATE OF VISIT: 08/10/2003 [...] ordered and read by me looks normal. [id number] C: 08/10/03 20:16 DOCUMENT: [id number] Rahat Mix PA-C - 06/30/2003 12:01 AM CST Progress Notes signed by Rahat Mix PA-C at 07/01/03 0901 Author: Rahat Mix PA-C Service: (none) Author Type: Physician In Store Demonstrator Filed: 08/16/10 2205 Note Time: 06/30/03 0001 Status: Signed Centrifuge Separator Tender: Rahat Mix PA-C (Physician In Store Demonstrator) NAME: MINO CLEMENTE MR: [id number] ACCT: [id number] VISIT: [id number] DICTATING CLINICIAN: SEAMUS MENDIETA JOB: [id number] CLINIC PROGRESS NOTE DATE OF VISIT: 06/30/2003 [...] little low at 4.1, hemoglobin normal, 14.9. [id number] C: 07/01/03 00:36 DOCUMENT: [id number] EM CUTTER Phone Note, Clinician - 08/18/2002 12:01 AM CDT Phone Note filed by Clinician Phone Note at 08/14/101107 Author: Clinician Phone Note Service: (none) Author Type: Resource Filed: 08/14/10 1108 Note Time: 08/18/02 0001 Status: Signed Centrifuge Separator Tender: Clinician Phone Note (Resource) TO: LILLIAN HARKINS FROM: JOANN GONZALEZ RN [phone] * PROVIDER MESSAGE: TOMEKA * 08/18/02 01:07PM * *WITHIN 2 HOURS * MESSAGE: Pt's mother (Kalyani Clemente) * HOME PHONE:[phone] * calling: Pt's sister Zaria was seen * CONTACT PHONE:[phone] * by Lillian Harkins, MONCHO, GAMING CAGE CASHIER * Eileen Clemente - pt's * yesterday [...] CALL BY JOANN GONZALEZ RN 08/18/2002 01:02PM [phone] ADDENDUM: <> 08/18/2002 01:35PM by STEVEN VELEZ: Lillian Gaspar CNP advised to keep appointment. Lillian Harkins APRN, CNP - 08/18/2002 12:01 AM CDT Progress Notes signed by Lillian Harkins APRN, CNP at 08/24/02 0803 Author: JOVANNA Gagnon Service: (none) Author Type: Nurse Practitioner Filed: 08/16/10 1438 Note Time: 08/18/02 0001 Status: Signed Centrifuge Separator Tender: JOVANNA Gagnon (Nurse Practitioner) NAME: MINO CLEMENTE MR: [id number] ACCT: [id number] VISIT: [id number] DICTATING CLINICIAN: JOVANNA GAGNON JOB: [id number] CLINIC PROGRESS NOTE DATE OF VISIT: 08/18/2002 [...] clear for two consecutive mornings. TT: CT: [id number]:[id number] C: 08/20/02 10:47 DOCUMENT: [id number] Lillian Harkins APRN, CNP - 08/17/2002 12:01 AM CDT Progress Notes signed by Lillian Harkins APRN, CNP at 08/24/02 0802 Author: JOVANNA Gagnon Service: (none) Author Type: Nurse Practitioner Filed: 08/16/10 1436 Note Time: 08/17/02 0001 Status: Signed Centrifuge Separator Tender: JOVANNA Gagnon (Nurse Practitioner) NAME: MINO CLEMENTE MR: [id number] ACCT: [id number] VISIT: [id number] DICTATING CLINICIAN: JOVANNA GAGNON JOB: [id number] CLINIC PROGRESS NOTE DATE OF VISIT: 08/17/2002 [...] observation and follow up p.r.n. TT: CT: [id number] C: 08/18/02 10:36 DOCUMENT: [id number] Phone Note, Clinician - 06/30/2002 12:01 AM CST Phone Note filed by Clinician Phone Note at 08/14/10 1047 Author: Clinician Phone Note Service: (none) Author Type: Resource Filed: 08/14/10 1047 Note Time: 06/30/02 0001 Status: Signed Centrifuge Separator Tender: Clinician Phone Note (Resource) TO: RANJITH VALENZUELA FROM: FAZAL MORA RN [phone] * PROVIDER MESSAGE: ROUTINE * 06/30/02 12:23PM * *WITHIN 4 HOURS * MESSAGE: Patient was seen by * HOME PHONE:[phone] * Linden this morning for right * CONTACT PHONE:[phone] * ankle sprain. Per mother, was * Mom (Jyoti) if questions * advised to limit physical activity for 7-10 days, with minimal weight bearing. In order for her to be excused from phy-ed, the school is requiring note from . Please write note and fax to [employer] at [phone]. Attn: Jeanette. Aware that Dr. Valenzuela was [...] CALL BY FAZAL MORA RN 06/30/2002 12:20PM [phone] ADDENDUM: <> 06/30/2002 04:58PM by MAJO MENENDEZ LPN: Note written by Dr Izquierdo regarding physical activity and faxed to school per moms request. Ranjith Gan - 06/30/2002 12:01 AM CST Progress Notes signed by Ranjith Valenzuela MD at 07/23/02 0904 Author: Ranjith Valenzuela MD Service: (none) Author Type: Physician Filed: 08/16/10 1348 Note Time: 06/30/02 0001 Status: Signed Centrifuge Separator Tender: Ranjith Valenzuela MD (Physician) NAME: MINO CLEMENTE MR: [id number] ACCT: [id number] VISIT: [id number] DICTATING CLINICIAN: RANJITH VALENZUELA MD JOB: [id number] CLINIC PROGRESS NOTE DATE OF VISIT: 06/30/2002 [...] Meanwhile, begin some ankle exercises. TT: CT: [id number] C: 06/30/02 17:41 DOCUMENT: [id number] Lillian Harkins APRN, CNP - 10/15/2001 12:01 AM CDT Progress Notes signed by Lillian Harkins APRN, CNP at 10/28/01 1044 Author: JOVANNA Gagnon Service: (none) Author Type: Nurse Practitioner Filed: 08/16/10 0750 Note Time: 10/15/01 0001 Status: Signed Centrifuge Separator Tender: JOVANNA Gagnon (Nurse Practitioner) IMPRESSION: Healthy 11-year-old. SUBJECTIVE: Mino is in today for a 11-year check. She just finished sixth grade and did very well in school. She participates in soccer, track and volleyball. She also loves to run. Is not running on a regular basis at this time. She plays the [employer] in [employer]. She has no current concerns. She eats [...] Her next check at 14. TT: CT: [id number]:[id number] C: DOCUMENT: [id number] Mary Stewart MD - 09/11/2001 12:01 AM CDT Progress Notes signed by Mary Stewart MD at 09/14/01 0817 Author: Mary Stewart MD Service: (none) Author Type: Physician Filed: 08/16/10 0704 Note Time: 09/11/01 0001 Status: Signed Centrifuge Separator Tender: Mary Stewart MD (Physician) IMPRESSION: Mild cellulitis near the left third toe. Probable athlete's foot. Wart on the right hand. SUBJECTIVE: Mino is a 11-year-old who comes in having had some dry cracking between her toes for a while. They have been doing some gtec-hmi-vqpthcd treatment for athlete's foot over the last [...] infection, and they are going to try qspc-vsv-hrsuxkz treatment first such as Duofilm for the wart on her right palm. TT: CT: KJM:[id number] C: DOCUMENT: [id number] Jessica Kenney MD - 07/25/2001 12:01 AM CST Progress Notes signed by Jessica Kenney MD at 07/27/01 1514 Author: Jessica Kenney MD Service: (none) Author Type: Physician Filed: 08/16/10 0555 Note Time: 07/25/01 0001 Status: Signed Centrifuge Separator Tender: Jessica Kenney MD (Physician) IMPRESSION: OTITIS MEDIA, [...] returns. ASSESSMENT: N/A PLAN: N/A TT: CT: [id number]:[id number] C: DOCUMENT: [id number] EM CUTTER Mary Stewart MD - 05/22/2001 12:01 AM CST Progress Notes signed by Mary Stewart MD at 05/25/01 0825 Author: Mary Stewart MD Service: (none) Author Type: Physician Filed: 08/16/10 0424 Note Time: 05/22/01 0001 Status: Signed Centrifuge Separator Tender: Mary Stewart MD (Physician) IMPRESSION: Possible pneumonia. [...] or if other concerns arise. TT: CT: [facility]:[id number] C: DOCUMENT: [id number] EM CUTTER Conversion, [facility] - 10/17/1999 12:01 AM CDT Progress Notes signed by at 12/02/00 1523 Author: [facility] Conversion Service: (none) Author Type: (none) Filed: 08/15/10 1738 Note Time: 10/17/99 0001 Status: Signed Centrifuge Separator Tender: Imr Conversion IMPRESSION: Resolving sprain/contusion to the [...] activities as tolerated. CC: SEGUNDO TAPIA MD ABK:[id number] C: DOCUMENT: [id number] SCHEDULED RESOURCE: DUSTIN MEZA / Conversion, [facility] - 10/10/1999 12:01 AM CDT Progress Notes signed by at 12/02/00 2475 Author: Rudy Strong Service: (none) Author Type: (none) Filed: 08/15/10 1731 Note Time: 10/10/992229 Status: Signed Centrifuge Separator Tender: Rudy Strong IMPRESSION: Sprain to the left [...] missing an occult fracture of the elbow. ABK:[id number] C: DOCUMENT: [id number] SCHEDULED RESOURCE: DUSTIN MEZA MD Conversion, [facility] - 10/05/1999 12:01 AM CDT Phone Note signed by at 10/05/99 6360 Author: Rudy Conversion Service: (none) Author Type: (none) Filed: 08/15/10 1726 Note Time: 10/05/99 0001 Status: Signed Centrifuge Separator Tender: Rudy Strong IMPRESSION: Elbow injury TO: MARY STEWART FROM: ORESTES KENDRICK RN [phone] * PROVIDER MESSAGE: ER * 10/05/1999 10:50PM * REFERRAL * MESSAGE: Sent to [facility] ER * HOME PHONE: [phone] * via car * CONTACT PHONE: [phone] * - REFERRED PATIENT TO EMERGENCY ROOM * Parents * SUBJECTIVE: CHIEF CONCERN... Dad states child fell tonight at [place], injured elbow. EMT at the [place] said didn't look right and recommended have seen tonight. Caller got this information from who is driving child back to [place]. Doesn't know if icing, elevating. Dad thinks should arrive [facility] in about 1 hr. ALLERGIES/SENSITIVITIES... Sulfa - rash, PCN - hives 10/05/99 CURRENT MEDICATIONS... None 10/05/99 PERTINENT PAST HISTORY... Healthy 10/05/99 WEIGHT: Not Available OMITTED ASKING ABOUT ; OMITTED ASKING ABOUT NURSING; ASSESSMENT: Elbow injury PLAN: DISPOSITION: EMERGENCY Call taken by ORESTES KENDRICK RN [phone] 10/05/1999 10:44 PM ADDENDUM: Conversion, [facility] - 04/08/1999 12:01 AM CST Progress Notes signed by at 12/02/00 7834 Author: Rudy Conversion Service: (none) Author Type: (none) Filed: 08/15/10 1434 Note Time: 04/08/99 0001 Status: Signed Centrifuge Separator Tender: Imr Conversion IMPRESSION: Viral syndrome, possible enterovirus versus another viral infection causes rash, stomach complaints and sore throat. SUBJECTIVE: Patient seen in [facility] on 04/08/99. The patient is [...] her to follow up right away. CC: DSR:[id number] C: DOCUMENT: [id number] SCHEDULED RESOURCE: JACKSON RIVERA MD Conversion, [facility] - 12/27/1998 12:01 AM CDT Phone Note signed by at 12/27/98 1003 Author: Rudy Conversion Service: (none) Author Type: (none) Filed: 08/15/10 4245 Note Time: 12/27/98 0001 Status: Signed Centrifuge Separator Tender: Rudy Strong IMPRESSION: Immunization inquiry SUBJECTIVE: PATIENT COMPLAINS OF... Mother, * HOME PHONE: [phone] * Eileen, is caller, states * CONTACT PHONE: [phone] * needs immunization hx for * Mother, [...] to transfer information to update records @ [facility]. Call taken by JADYN BERTRAND RN [phone] 12/27/1998 09:55 AM ADDENDUM: Conversion, [facility] - 12/11/1998 12:01 AM CDT Phone Note signed by at 12/11/98 4357 Author: Rudy Conversion Service: (none) Author Type: (none) Filed: 08/15/10 5823 Note Time: 12/11/98 0001 Status: Signed Centrifuge Separator Tender: Rudy Strong IMPRESSION: leg pain. SUBJECTIVE: PATIENT COMPLAINS OF... Mom * HOME PHONE: [phone] * reports mabel.c/o pain in her one [...] CALLBACK Call taken by RYAN CLEMENTE RN [phone] 12/11/1998 10:21 PM ADDENDUM: Conversion, [facility] - 1998 12:01 AM CDT Progress Notes signed by at 12/02/002050 Author: Rudy Conversion Service: (none) Author Type: (none) Filed: 08/15/10 1058 Note Time: 09/06/98 0001 Status: Signed Centrifuge Separator Tender: Rudy Strong IMPRESSION: Postoperative tonsillectomy and adenoidectomy [...] duration of time. CC: MARY STEWART MD APURVA:[id number] C: DOCUMENT: [id number] SCHEDULED RESOURCE: BENITA WORTHY MD Electronically signed by [facility], [facility] at 02/26/2016 7:36 PM CDT Conversion, [facility] - 09/03/1998 12:01 AM CDT Phone Note signed by at 09/03/98 0926 Author: [facility] Conversion Service: (none) Author Type: (none) Filed: 08/15/10 1054 Note Time: 09/03/98 0001 Status: Signed Centrifuge Separator Tender: Rudy Conversion IMPRESSION: Post tonsillectomy concerns SUBJECTIVE: PATIENT COMPLAINS OF... Mom * HOME PHONE: [phone] * calling with postop tonsillectomy day 6, [...] mom. Transferred to switchboard to have ENT speech therapist early intervention call mom. ALLERGIES/SENSITIVITIES... Sulfa, PCN -- hives 09/03/98 CURRENT MEDICATIONS... Cephalexin 3 tsp bid day 6, [employer] and codeine 15 ml 09/03/98 PERTINENT PAST HISTORY... Healthy 09/03/98 ASSESSMENT: Post tonsillectomy concerns DISPOSITION: NO DISPOSITION GIVEN WEIGHT: 63 PLAN: Call taken by ANGELIA GARVEY, RN [phone] 09/03/1998 09:01 AM ADDENDUM: Mary Stewrat MD - 08/25/1998 12:01 AM CDT Progress Notes signed by Mary Stewart MD at 09/06/98 1159 Author: Mary Stewart MD Service: (none) Author Type: Physician Filed: 08/15/10 1046 Note Time: 08/25/98 0001 Status: Signed Centrifuge Separator Tender: Mary Stewart MD (Physician) IMPRESSION: 8 1/2-year-old [...] she is okay for surgery for T&A. [facility]:[id number] C: DOCUMENT: [id number] Conversion, [facility] - 08/14/1998 12:01 AM CDT Phone Note signed by at 08/14/98 9110 Author: [facility] Conversion Service: (none) Author Type: (none) Filed: 08/15/10 1033 Note Time: 08/14/98 0001 Status: Signed Centrifuge Separator Tender: Imr Conversion IMPRESSION: Questions Re: Tonsilectomy Scheduled for 08/28/98. TO: MARY STEWART FROM: JANE AGUILAR LPN [phone] * PROVIDER MESSAGE: ROUTINE * 08/14/1998 01:30PM * *WITHIN 4 HOURS * MESSAGE: Mom is requesting a call * HOME PHONE: [phone] * back from MD today. She has * CONTACT PHONE: [phone] * questions about Tonsilectomy * Mrs. Clemente (mom) at * scheduled for 08/28/98. (States * home Today. * she can't be contacted tomorrow.) SUBJECTIVE: ALLERGIES/SENSITIVITIES... Sulfa, PCN -- hives 08/14/98 CURRENT MEDICATIONS... Cephalexin 3 tsp bid 08/14/98 PERTINENT PAST HISTORY... Healthy 08/14/98 WEIGHT: Not Available ASSESSMENT: Questions Re: Tonsilectomy Scheduled for 08/28/98. PLAN: DISPOSITION: NO DISPOSITION GIVEN Call taken by JANE AGUILAR LPN [phone] 08/14/1998 01:23 PM ADDENDUM: <> 08/15/1998 02:57PM by ORESTES MICHELE LPN [phone]: patient's mom Eileen Clemente calling back. Missed 's call 08/14. Contact # today [phone] until 5pm. Conversion, [facility] - 08/10/1998 12:01 AM CDT Phone Note signed by at 08/10/98 8177 Author: [facility] Conversion Service: (none) Author Type: (none) Filed: 08/15/10 1030 Note Time: 08/10/98 0001 Status: Signed Centrifuge Separator Tender: Rudy Conversion IMPRESSION: Strep pharyngitis (child)-nurse guidelines TO: MARY STEWART FROM: JESSICA ZARATE RN [phone] * PROVIDER MESSAGE: RETURN * 08/10/1998 04:56PM * CALL REQUESTED * MESSAGE: Call and advise. * HOME PHONE: [phone] * SUBJECTIVE: * CONTACT PHONE: [phone] * CHIEF CONCERN... Diagnosed * Deanne_mom * strep pharyngitis, no * PHARMACY: [phone] * significant improvement after * QUALITY COMPLIANCE CONSULTANT-[facility] * 48 hours of medication, denies emergent [...] concerns Call taken by JESSICA ZARATE, MONCHO [phone] 08/10/1998 04:41 PM ADDENDUM: <> 08/11/1998 11:39AM [...] 1024 Note Time: 08/06/98 0001 Status: Signed Centrifuge Separator Tender: Darryn Olson MD (Physician) IMPRESSION: Strep tonsillitis. [...] For severe problems, call 911. [id number] Conversion, [facility] - 07/17/1998 12:01 AM CST Phone Note signed by at 07/17/98 0941 Author: [facility] Conversion Service: (none) Author Type: (none) Filed: 08/15/10 1002 Note Time: 07/17/98 0001 Status: Signed Centrifuge Separator Tender: [facility] Conversion IMPRESSION: fyi TO: MARY STEWART FROM: DALY SCHULER RN [phone] * PROVIDER MESSAGE: FYI *NO * 07/17/1998 09:41AM * INPUT NECESSARY * MESSAGE: Gave normal lab result * HOME PHONE: [phone] * SUBJECTIVE: * CONTACT PHONE: [phone] * CHIEF CONCERN... Mom calling * eileen [...] FOLLOWING... Call taken by DALY SCHULER RN [phone] 07/17/1998 09:39 AM ADDENDUM: Lillian Harkins, PARTNER MANAGER, GAMING CAGE CASHIER - 06/21/1998 12:01 AM CST Progress Notes signed by Lillian Harkins APRN, CNP at 07/12/98 1128 Author: JOVANNA Gagnon Service: (none) Author Type: Nurse Practitioner Filed: 08/15/10 0932 Note Time: 06/21/98 0001 Status: Signed Centrifuge Separator Tender: JOVANNA Gagnon (Nurse Practitioner) IMPRESSION: Pharyngitis. SUBJECTIVE: [...] regarding her continued recurrence of pharyngitis. lrs EM CUTTER Conversion, [facility] - 06/20/1998 12:01 AM CST Phone Note signed by at 06/20/98 4746 Author: Rudy Conversion Service: (none) Author Type: (none) Filed: 08/15/10 0931 Note Time: 06/20/98 0001 Status: Signed Centrifuge Separator Tender: Rudy Strong IMPRESSION: Strep pharyngitis -(child)- nurse guidelines. - TREATING PROVIDER: LILLIAN TORIN * HOME PHONE: [phone] * - Appointment made with LILLIAN TORIN [...] concerns Call taken by FELIPE BLAIR RN [phone] 06/20/1998 10:17 PM ADDENDUM: Conversion, [facility] - 06/09/1998 12:01 AM CST Phone Note signed by Lucretia Barbosa MD at 06/16/98 0903 Author: Rudy Conversion Service: (none) Author Type: (none) Filed: 08/15/10 0919 Note Time: 06/09/98 0001 Status: Signed Centrifuge Separator Tender: Imr Conversion IMPRESSION: Strep pharyngitis -(child)- nurse guidelines. - PHARMACY: [phone] Zenaida SUBJECTIVE: * HOME PHONE:[phone] * PATIENT COMPLAINS OF... Sore throat, positive culture for strep pharyngitis. mother calling, states she had received a call from Dr. Cooper's office that her throat culture was positive for strep. She was told to call [phone] for treatment. Positive strep verified per [facility]. ALLERGIES/SENSITIVITIES... Sulfa 06/09/98 CURRENT MEDICATIONS... None 06/09/98 PERTINENT PAST HISTORY... Healthy 06/09/98 ASSESSMENT: Strep pharyngitis -(child)- nurse guidelines. DISPOSITION: HOME CARE WEIGHT: 63 PLAN: STANDING ORDERS IMPLEMENTED... Pen VK:500 mgm bid x 10 days (o) if > or = 50 lbs. RECOMMENDED THE FOLLOWING... Referenced guideline Strep pharyngitis -(child)- nurse guidelines.. Patient to be treated per [facility] standing order. -Give acetaminophen or ibuprofen as [...] CALL BY ASHLEY TAVARES RN 06/09/1998 11:14AM [phone] ADDENDUM: <> 06/10/1998 08:32PM by FELIPE POTTER RN [phone]: Mom calling back, aprox. 1 hr. ago [...] do? Ref. Hives Guideline, called Dr. Barbosa, speech therapist early intervention for Dr. Stewart, her usual provider. Dr. Barbosa ordered Erythromcyin 200mg. /5ml., 1 1/4tsp. BID x10 days. Pt. can start taking the medication tonight. If rash persists or changes she is to call back. Called mom back, gave her the information. Script called into [facility][phone] at 8:50pm. If further questions mom will call back. Conversion, [facility] - 06/07/1998 12:01 AM CST Phone Note signed by at 06/07/981999 Author: [facility] Conversion Service: (none) Author Type: (none) Filed: 08/15/10 0917 Note Time: 06/07/982229 Status: Signed Centrifuge Separator Tender: uRdy Conversion IMPRESSION: Sore Throat-(Child)-Nurse Guidelines TO: MARY STEWART FROM: LITZY DAVID R.N. [phone] * PROVIDER MESSAGE: ENRIQUE *NO * 06/07/1998 08:00PM * INPUT NECESSARY * MESSAGE: Strep screen in am at * HOME PHONE: [phone] * 920am. * CONTACT PHONE: [phone] * SUBJECTIVE: * mom * CHIEF CONCERN... [...] R.N. [phone] 06/07/1998 07:53 PM ADDENDUM: Conversion, [facility] - 05/29/1998 12:01 AM CST Progress Notes signed by at 12/02/002038 Author: Rudy Conversion Service: (none) Author Type: (none) Filed: 08/15/10 0905 Note Time: 05/29/98 0001 Status: Signed Centrifuge Separator Tender: Rudy Conversion IMPRESSION: Recurrent tonsillitis with moderate [...] EM174 SCHEDULED RESOURCE: BENITA WORTHY MD Conversion, [facility] - 05/03/1998 12:01 AM CST Phone Note signed by at 05/03/98 0952 Author: Rudy Conversion Service: (none) Author Type: (none) Filed: 08/15/10 0837 Note Time: 05/03/982229 Status: Signed Centrifuge Separator Tender: Rudy Strong IMPRESSION: request call-reading disability TO: MARY STEWART FROM: ORESTES MICHELE LPN [phone] * PROVIDER MESSAGE: ROUTINE * 05/03/1998 09:52AM * *WITHIN 4 HOURS * MESSAGE: request call * HOME PHONE: [phone] * SUBJECTIVE: * CONTACT PHONE: [phone] * CHIEF CONCERN... Patient's mom * Lay-mom [...] GIVEN Call taken by ORESTES MICHELE LPN [phone] 05/03/1998 09:49 AM ADDENDUM: <> 05/03/1998 01:34PM by GRISELDA GIBSON LPN: TALKED WITH MOM THIS AM. PER DR STEWART APPOINTMENT SHOULD BE MADE WITH NIMISHA AT [facility]. Conversion, [facility] - 04/26/1998 12:01 AM CST Phone Note signed by at 04/26/98 0909 Author: Rudy Conversion Service: (none) Author Type: (none) Filed: 08/15/10 0830 Note Time: 04/26/98 0001 Status: Signed Centrifuge Separator Tender: Rudy Conversion IMPRESSION: Sore Throat-(Child)-Nurse Guidelines TO: MARY STEWART FROM: ISABEL KEVIN, RN [phone] * PROVIDER MESSAGE: ROUTINE * 04/26/1998 09:09AM * *WITHIN 4 HOURS * MESSAGE: Call mother to determine * HOME PHONE: [phone] * treatment plan. (Could a doctor * CONTACT PHONE: [phone] * take care of this this morning? * Eileen, mother * Soria not in until afternoon.) * PHARMACY: [phone] * SUBJECTIVE: * [facility] [place] * CHIEF [...] concerns Call taken by ISABEL KEVIN RN [phone] 04/26/1998 08:52 AM ADDENDUM: <> 04/26/1998 10:46AM by GRISELDA GIBSON LPN: APPOINTMENT MADE. Mary Stewart MD - 04/26/1998 12:01 AM CST Progress Notes signed by Mary Stewart MD at 05/05/98 1121 Author: Mary Stewart MD Service: (none) Author Type: Physician Filed: 08/15/10829 Note Time: 04/26/98 0001 Status: Signed Centrifuge Separator Tender: Mary Stewart MD (Physician) IMPRESSION: Pharyngitis. SUBJECTIVE: [...] it is probably more activity related. nbb EM CUTTER Conversion, [facility] - 04/06/1998 12:01 AM CST Phone Note signed by Mary Stewart MD at 04/10/98 0914 Author: [facility] Conversion Service: (none) Author Type: (none) Filed: 08/15/10 0810 Note Time: 04/06/98 0001 Status: Signed Centrifuge Separator Tender: Imr Conversion IMPRESSION: Sore Throat-(Child)-Nurse Guidelines - TREATING PROVIDER: MARY STEWART - PHARMACY: [phone] [facility] * HOME PHONE: [phone] * SUBJECTIVE: PATIENT COMPLAINS OF... Sore throat, [...] concerns Call taken by MICHELINE LOCKETT RN [phone] 04/06/1998 07:36 PM ADDENDUM: Conversion, [facility] - 04/06/1998 12:01 AM CST Phone Note signed by at 04/06/98 5898 Author: Rudy Conversion Service: (none) Author Type: (none) Filed: 08/15/10 0810 Note Time: 04/06/98 0001 Status: Signed Centrifuge Separator Tender: Rudy Strong IMPRESSION: Positive Strep SUBJECTIVE: ALLERGIES/SENSITIVITIES... * HOME PHONE: [phone] * Sulfa (hives) 04/05/98 * CONTACT PHONE: [phone] * CURRENT MEDICATIONS... Tylenol prn 04/05/98 PERTINENT PAST HISTORY... Healthy 04/05/98 ASSESSMENT: Positive Strep DISPOSITION: NO DISPOSITION GIVEN PLAN: [facility] COMMENTS... [place] [facility] calling to say Pt. has Positive strep. Unable to reach. Will need to call RX. Need Pharmacy #. Message was left on home machine. Call taken by COLBY MENDOZA LPN [phone] 04/06/1998 02:56 PM ADDENDUM: <> 04/06/1998 08:00PM by MICHELINE LOCKETT, RN [phone]: Mom calling back, child treated per sore throat guideline Conversion, [facility] - 04/05/1998 12:01 AM CST Phone Note signed by at 04/05/98 0917 Author: Rudy Conversion Service: (none) Author Type: (none) Filed: 08/15/10 0809 Note Time: 04/05/98 0001 Status: Signed Centrifuge Separator Tender: Ruyd Conversion IMPRESSION: Sore Throat-(Child)-Nurse Guidelines - TREATING PROVIDER: FAMILY PRACTICE NURSE * HOME PHONE: [phone] * - Appointment made with FAMILY * CONTACT PHONE: [phone] * PRACTICE NURSE Apr 05 1998 10:10AM * Mrs Clemente (mom) * - PHARMACY: [phone] [place] [address] SUBJECTIVE: PATIENT COMPLAINS OF... Sore [...] concerns Call taken by WOLF BUENO RN [phone] 04/05/1998 09:08 AM ADDENDUM: Conversion, [facility] - 03/27/1998 12:01 AM CST Phone Note signed by at 03/27/98 0433 Author: [facility] Conversion Service: (none) Author Type: (none) Filed: 08/15/10 0759 Note Time: 03/27/98 0001 Status: Signed Centrifuge Separator Tender: Rudy Strong IMPRESSION: Lab Test Question TO: MARY STEWART FROM: FELIPE GALLO RN [phone] * PROVIDER MESSAGE: ROUTINE * 03/27/1998 02:16PM * *WITHIN 4 HOURS * MESSAGE: Mom wondering if she * HOME PHONE: [phone] * should postpone lab testing? Pt. * CONTACT PHONE: [phone] * has cough and cold sx., no [...] GIVEN Call taken by FELIPE GALLO RN [phone] 03/27/1998 02:09 PM ADDENDUM: Mary Stewart MD - 03/01/1998 12:01 AM CST Progress Notes signed by Mary Stewart MD at 03/10/9812 Author: Mary Stewart MD Service: (none) Author Type: Physician Filed: 08/15/10 0734 Note Time: 03/01/982229 Status: Signed Centrifuge Separator Tender: Mary Stewart MD (Physician) IMPRESSION: CHART NOTE [...] to anything abnormal with the blood. The gas welder just recommended in a month repeating her blood count to see that the white count came up. nbb EM CUTTER Mary Stewart MD - 02/27/1998 12:01 AM CST Progress Notes signed by Mary Stewart MD at 03/06/9847 Author: Mary Stewart MD Service: (none) Author Type: Physician Filed: 08/15/10 0731 Note Time: 02/27/982229 Status: Signed Centrifuge Separator Tender: Mary Stewart MD (Physician) IMPRESSION: Healthy 8-1/2-year-old [...] should be in about three years. nbb EM CUTTER Conversion, [facility] - 11/15/1997 12:01 AM CDT Phone Note signed by at 11/15/97 0814 Author: [facility] Conversion Service: (none) Author Type: (none) Filed: 08/15/10 0550 Note Time: 11/15/97 0001 Status: Signed Centrifuge Separator Tender: [facility] Conversion IMPRESSION: Fever (4-17 years) nurse guideline SUBJECTIVE: PATIENT COMPLAINS OF... Fever, * HOME PHONE: [phone] * -Disrupted or restless sleep Awakened this [...] symptoms that are bothersome or not improving [facility]... reviewed various guidelines with Dad he will reevaluate when she awakens and call again as needed Call taken by DOROTA GRIFFITH 11/15/1997 08:06 AM ADDENDUM: Mary Stewart MD - 08/31/1997 12:01 AM CDT Progress Notes signed by Mary Stewart MD at 09/13/97 1156 Author: Mary Stewart MD Service: (none) Author Type: Physician Filed: 08/15/10 0442 Note Time: 08/31/97 0001 Status: Signed Centrifuge Separator Tender: Mary Stewart MD (Physician) IMPRESSION: Pharyngitis. SUBJECTIVE: Mino is an dfjcv-vyrv-crc who comes in having started with a sore throat and stomachache yesterday. She has had no temp, no cold symptoms, and no headache. ALLERGIES: SULFA. OBJECTIVE: Wt: 59 lb. In general, she is an alert axiox-mkxn-hup in no acute distress. TMs were clear. [...] other concerns or questions arise. beh Conversion, [facility] - 08/30/1997 12:01 AM CDT Phone Note signed by at 08/30/972041 Author: [facility] Conversion Service: (none) Author Type: (none) Filed: 08/15/10 0441 Note Time: 08/30/97 0001 Status: Signed Centrifuge Separator Tender: Rudy Conversion IMPRESSION: Sore Throat-(Child)-Nurse Guidelines - TREATING PROVIDER: MARY STEWART - Appointment made with MARY * HOME PHONE: [phone] * PROSPER Aug 31 1997 10:40AM SUBJECTIVE: [...] or concerns Call taken by JOEL GARVEY [phone] 08/30/1997 08:35 PM ADDENDUM: Electronically signed by [facility] at 02/26/2016 7:38 PM CDT Jolie Cazares MD - 06/26/1997 12:01 AM CST Progress Notes signed by at 02/27/022017 Author: Jolie Cazares MD Service: (none) Author Type: (none) Filed: 08/15/10 0340 Note Time: 06/26/97 0001 Status: Signed Centrifuge Separator Tender: Rudy Conversion IMPRESSION: No dictation required. Exudative pharyngitis, persistent despite amoxicillin. Bicillin CR 600,000 units IM. SUBJECTIVE: N/A OBJECTIVE: N/A ASSESSMENT: N/A PLAN: N/A [facility] Electronically signed by [facility], [facility] at 02/26/2016 7:38 PM CDT Conversion, [facility] - 02/08/1997 12:01 AM CDT Phone Note signed by at 02/08/97 6428 Author: Rudy Conversion Service: (none) Author Type: (none) Filed: 08/15/10 0135 Note Time: 02/08/97 0001 Status: Signed Centrifuge Separator Tender: Rudy Strong IMPRESSION: Sore Throat-(Child)-Nurse Guidelines - PHARMACY: [phone] [facility] SUBJECTIVE: * HOME PHONE: [phone] * PATIENT COMPLAINS OF... Sore throat, positive [...] 6:23pm.. Call taken by FELIPE POTTER RN [phone] 02/08/1997 06:16 PM ADDENDUM: YT Ranjith Valenzuela - 02/07/1997 12:01 AM CDT Progress Notes signed by Ranjith Valenzuela MD at 02/21/97 0843 Author: Ranjith Valenzuela MD Service: (none) Author Type: Physician Filed: 08/15/10 0133 Note Time: 02/07/97 0001 Status: Signed Centrifuge Separator Tender: Ranjith Valenzuela MD (Physician) IMPRESSION: Viral syndrome. [...] improve with normal cough syrup. nbb Conversion, [facility] - 01/31/1997 12:01 AM CDT Phone Note signed by at 01/31/97 4300 Author: Imr Conversion Service: (none) Author Type: (none) Filed: 08/15/10 0127 Note Time: 01/31/97 0001 Status: Signed Centrifuge Separator Tender: Imr Conversion IMPRESSION: Sting,bee/insect-(child)-nurse guidelines SUBJECTIVE: PATIENT COMPLAINS OF... * HOME PHONE: [phone] * Bee/insect sting, -Mild redness, tenderness at [...] CALLBACK Call taken by ASHLEY CARDONA RN [phone] 01/31/1997 05:09 PM ADDENDUM: Conversion, [facility] - 12/21/1996 12:01 AM CDT Phone Note signed by at 12/21/96 8655 Author: Rudy Conversion Service: (none) Author Type: (none) Filed: 08/15/10 0054 Note Time: 12/21/96 0001 Status: Signed Centrifuge Separator Tender: Rudy Strong IMPRESSION: Fever (4-17 years) nurse guideline SUBJECTIVE: PATIENT COMPLAINS OF... Fever, * HOME PHONE: [phone] * 101.8; -VURI symptoms < 72 * CONTACT PHONE: [phone] * hours also has headache and * [...] Smith PA-C Service: (none) Author Type: Physician In Store Demonstrator Filed: 08/14/10 0583 Note Time: 08/22/96 0001 Status: Signed Centrifuge Separator Tender: Brisa Smith PA-C (Physician In Store Demonstrator) IMPRESSION: Pharyngitis, most likely strep. SUBJECTIVE: Mino [...] Follow up if symptoms do not improve. [facility] EM CUTTER Conversion, [facility] - 08/21/1996 12:01 AM CDT Phone Note signed by at 08/21/96 8474 Author: Rudy Conversion Service: (none) Author Type: (none) Filed: 08/14/10 1628 Note Time: 08/21/96 0001 Status: Signed Centrifuge Separator Tender: Rudy Conversion IMPRESSION: Fever (4-17 years) nurse guideline SUBJECTIVE: PATIENT COMPLAINS OF... Fever, * HOME PHONE: [phone] * Child woke with fever of * CONTACT PHONE: [phone] * 102PO this morning,08/21/96. * Mom * [...] INFORMED PATIENT TO CALLBACK IF... sx. worsen. [facility] COMMENTS... Lost all of note due to some error and had to reenter from memory. Call taken by GEORGE MICHELE RN [phone] 08/21/1996 11:58 AM ADDENDUM: <> 08/22/1996 01:35PM by FAZAL BERGERON RN: leg pain gone, complained of sore throat this morning, vomited once, fever continues up to 103, mom will bring child to for strep test Conversion, [facility] - 08/16/1996 12:01 AM CDT Phone Note signed by at 08/16/96 9201 Author: Rudy Conversion Service: (none) Author Type: (none) Filed: 08/14/10 2319 Note Time: 08/16/96 0001 Status: Signed Centrifuge Separator Tender: Rudy Strong IMPRESSION: Nose Trauma SUBJECTIVE: PATIENT COMPLAINS OF... Aprox. * HOME PHONE: [phone] * 1/2 hour ago child was in [...] RECOMMENDED THE FOLLOWING... Ref. Nosebleed Guideline and [facility], nose trauma. Discussed sx. of head trauma to look for and if sx. worsen or change to be seen. Mom will call back if needed, prefers no call back from us. Call taken by FELIPE POTTER RN [phone] 08/16/1996 06:30 PM ADDENDUM: Conversion, [facility] - 07/08/1996 12:01 AM CST Phone Note signed by at 07/08/96 1456 Author: Rudy Conversion Service: (none) Author Type: (none) Filed: 08/14/10 4254 Note Time: 07/08/96 0001 Status: Signed Centrifuge Separator Tender: Rudy Strong IMPRESSION: Fever, Vague tummy ache c/o. SUBJECTIVE: PATIENT COMPLAINS OF... Negative * HOME PHONE:[phone] * strep screen result today. Child has [...] CALL BY FELIPE PIERCE RN 07/08/1996 02:06PM [phone] ADDENDUM: Rivera Izquierdo MD - 06/10/1996 12:01 AM CST Progress Notes signed by Rivera Izquierdo MD at 06/15/96 0946 Author: Rivera Izquierdo MD Service: (none) Author Type: Physician Filed: 08/14/102229 Note Time: 06/10/96 0001 Status: Signed Centrifuge Separator Tender: Rivera Izquierdo MD (Physician) IMPRESSION: Cough and [...] t.i.d. x ten days. Recheck p.r.n. bmn EM CUTTER Tae [facility] - 04/27/1996 12:01 AM CST Phone Note signed by at 04/27/96 1011 Author: Rudy Strong Service: (none) Author Type: (none) Filed: 08/14/102199 Note Time: 04/27/96 0001 Status: Signed Centrifuge Separator Tender: Rudy Strong IMPRESSION: Sore Throat-(Child)-Nurse Guidelines - APPOINTMENT MADE WITH PEDIATRIC NURSE 04/27/1996 01:30PM * HOME PHONE:[phone] * SUBJECTIVE: PATIENT COMPLAINS OF... Sore throat,> [...] CALL BY FELIPE PIERCE RN 04/27/1996 09:59AM [phone] ADDENDUM: Mary Farmer MD - 03/09/1996 12:01 AM CST Progress Notes signed by Mary Stewart MD at 03/18/96 0821 Author: Mary Stewart MD Service: (none) Author Type: Physician Filed: 08/14/102128 Note Time: 03/09/96 0001 Status: Signed Centrifuge Separator Tender: Mary Stewart MD (Physician) IMPRESSION: Right otitis [...] any other concerns or questions arise. [id number]-43 EM CUTTER Conversion, [facility] - 03/08/1996 12:01 AM CST Phone Note signed by at 03/08/96 8171 Author: Rudy Conversion Service: (none) Author Type: (none) Filed: 08/14/10 0377 Note Time: 03/08/96 0001 Status: Signed Centrifuge Separator Tender: Rudy Conversion IMPRESSION: Sore Throat-(Child)-Nurse Guidelines - REFERRED PATIENT TO URGENT CARE AT [facility] * HOME PHONE: [phone] * SUBJECTIVE: PATIENT COMPLAINS OF... Sore throat [...] concerns; Call taken by ROGER DUNHAM RN [phone] 03/08/1996 05:52 PM ADDENDUM: Electronically signed by [facility] at 02/26/2016 7:41 PM CDT Conversion, [facility] - 10/20/1995 12:01 AM CDT Phone Note signed by at 10/20/95 5869 Author: Rudy Strong Service: (none) Author Type: (none) Filed: 08/14/102004 Note Time: 10/20/95 0001 Status: Signed Centrifuge Separator Tender: Rudy Strong IMPRESSION: giardia in house - REFERRED PATIENT TO URGENT CARE AT [facility] * HOME PHONE:[phone] * SUBJECTIVE: PATIENT COMPLAINS OF... mom calling. [...] CALL BY JESSICA SINHA RN 10/20/1995 06:12PM [phone] ADDENDUM: Darryn Olson MD - 07/12/1995 12:01 AM CST Progress Notes signed by Darryn Olson MD at 02/27/022017 Author: Darryn Olson MD Service: (none) Author Type: (none) Filed: 08/14/10 741 Note Time: 07/12/95 0001 Status: Signed Centrifuge Separator Tender: Darryn Olson MD (Physician) IMPRESSION: No dictation required. Upper respiratory infection and pharyngitis. SUBJECTIVE: N/A OBJECTIVE: N/A ASSESSMENT: N/A PLAN: N/A [id number] Mary Stewart MD - 06/24/1995 12:01 AM CST Progress Notes signed by Mary Stewart MD at 07/01/95 3386 Author: Mary Stewart MD Service: (none) Author Type: Physician Filed: 08/14/10 289 Note Time: 06/24/95 0001 Status: Signed Centrifuge Separator Tender: Mary Stewart MD (Physician) IMPRESSION: Right otitis media and possible strep pharyngitis. SUBJECTIVE: Mino is a mdtr-ojjj-qoa who comes in having had a sore throat today and a stomachache. She has also complained of her finger tips hurting. She has had no cold symptoms. No temp. Apparently, mom had a high temp recently with achiness and sore throat, and her brother has had some stomachache and elevated temp. ALLERGIES: SULFA. OBJECTIVE: Wt: 50 lb. In general, she is an alert gqii-tdub-ymt in no acute distress. She does have [...] throat culture on her brother, Xander. beh EM CUTTER Darryn Olson MD - 03/01/1995 12:01 AM CST Progress Notes signed by Darryn Olson MD at 06/20/95 0748 Author: Darryn Olson MD Service: (none) Author Type: (none) Filed: 08/14/10 1801 Note Time: 03/01/95 0001 Status: Signed Centrifuge Separator Tender: Darryn Olson MD (Physician) IMPRESSION: No dictation required. SUBJECTIVE: N/A OBJECTIVE: N/A ASSESSMENT: N/A PLAN: N/A Nikhil Eldridge MD - 12/19/1994 12:01 AM CDT Progress Notes signed by Nikhil Eldridge MD at 01/07/95 1311 Author: Nikhil Eldridge MD Service: (none) Author Type: Physician Filed: 08/14/10 1737 Note Time: 12/19/94 0001 Status: Signed Centrifuge Separator Tender: Nikhil Eldridge MD (Physician) IMPRESSION: 1. Negative [...] signed by Mary Stewart MD at 09/25/94 2052 Author: Mary Stewart MD Service: (none) Author Type: Physician Filed: 08/14/10 1716 Note Time: 09/12/94 0001 Status: Signed Centrifuge Separator Tender: Mary Stewart MD (Physician) IMPRESSION: Healthy pkem-qfha-tvn. SUBJECTIVE: Mino is a fygf-vyic-mwq who comes in today. Really, mom has [...] eyes, and she passed Langstereo. ASSESSMENT: Healthy repp-pohc-jju. PLAN: Will go ahead with her DPT, [...] Service: (none) Author Type: Physician Filed: 08/14/10 3950 Note Time: 08/09/94 0001 Status: Signed Centrifuge Separator Tender: Violette Thomas MD (Physician) IMPRESSION: Vulvovaginitis. SUBJECTIVE: [...] Avoid Vantin in the future if possible. [place] that her rash was clearing at this [...] Service: (none) Author Type: Physician Filed: 08/14/10 3218 Note Time: 07/18/94 0001 Status: Signed Centrifuge Separator Tender: Rivera Izquierdo MD (Physician) IMPRESSION: Right otitis [...] we discussed getting her allergy skin-tested at [place] with an forensic analyst. OBJECTIVE: On examination, WT: 46 1/2 pounds. Her right tympanic membrane is dull with air fluid level inferiorly and somewhat reddened. The remainder of the examination is unremarkable. Pharynx is unremarkable. ASSESSMENT: Right otitis. PLAN: Vantin 100 b.i.d. times ten days. Recheck p.r.n. if not improving. EM CUTTER documented in this encounter Plan of Treatment [...] 9:00 AM Results for this LATERAL HIP EMBLEM CUTTER procedure are i n the results section. BETA STREP RESP Routine 07/25/2001 1:09 PM Result s for this CULT EMBLEM CUTTER procedure are i n the results section. XR ELBOW Routine 10/17/1999 8:50 AM Results f or this CDT procedure are i n the results section. STREP GROUP A Routine 04/08/1999 5:51 PM Results for this ANTIGEN TEST EMBLEM CUTTER procedure are i n the results section. BETA STREP FOLLOWUP Routine 04/08/1999 5:51 PM Re sults for this EMBLEM CUTTER procedure are i n the results section. STREP GROUP A Routine 08/06/1998 11:10 AM Results for this ANTIGEN TEST CDT procedure are i n the results section. STREP GROUP A Routine 06/08/1998 10:09 AM Results for this ANTIGEN TEST EMBLEM CUTTER procedure are i n the results section. BETA STREP FOLLOWUP Routine 06/08/1998 10:09 AM R esults for this EMBLEM CUTTER procedure are i n the results section. WBC, BLOOD Routine 05/29/1998 3:47 PM Results f or this EMBLEM CUTTER procedure are i n the results section. BETA STREP RESP Routine 04/26/1998 3:23 PM Result s for this CULT EMBLEM CUTTER procedure are i n the results section. STREP GROUP A Routine 04/05/1998 10:52 AM Results for this ANTIGEN TEST EMBLEM CUTTER procedure are i n the results section. BETA STREP FOLLOWUP Routine 04/05/1998 10:52 AM R esults for this EMBLEM CUTTER procedure are i n the results section. STREP GROUP A Routine 02/27/1998 10:38 AM Results for this ANTIGEN TEST EMBLEM CUTTER procedure are i n the results section. BETA STREP FOLLOWUP Routine 02/27/1998 10:38 AM R esults for this EMBLEM CUTTER procedure are i n the results section. MORPH FINAL REPORT Routine 02/27/1998 9:03 AM Res ults for this EMBLEM CUTTER procedure are i n the results section. PLATELETS Routine 02/27/1998 9:03 AM Results f or this EMBLEM CUTTER procedure are i n the results section. HEMOGLOBIN, BLOOD Routine 02/27/1998 9:03 AM Resu lts for this EMBLEM CUTTER procedure are i n the results section. WBC, BLOOD Routine 02/27/1998 9:03 AM Results f or this EMBLEM CUTTER procedure are i n the results section. [...] 4:46 PM Result s for this CULT EMBLEM CUTTER procedure are i n the results section. BETA STREP RESP Routine 06/26/1997 12:09 PM Resul ts for this CULT EMBLEM CUTTER procedure are i n the results section. STREP GROUP A Routine 05/11/1997 4:58 PM Results for this ANTIGEN TEST EMBLEM CUTTER procedure are i n the results section. BETA STREP FOLLOWUP Routine 05/11/1997 4:58 PM Re sults for this EMBLEM CUTTER procedure are i n the results section. [...] ??Negative examination of the right index finger. [id number] Dictating SABINA MENDES Radiologist Narrative 08/10/2003 10:01 AM CDT COMPARISON STUDY: ??None. CLINICAL HISTORY: ??12-year-old female w ith finger pain. Procedure Note Sabina Flanagan MD - 06/29/2016Formattin g of this note might be different from the original. COMPARISON STUDY: None. CLINICAL HISTORY: 12-year-old female wit h finger pain. IMPRESSION : Negative examination of the right inde x finger. [id number] Dictating SABINA MENDES Radiologist Roxanne Flores MD RAD GD XR Pelvis W Lt Lateral Hip (06/30/2003 9:00 AM EMBLEM CUTTER) Anatomical Region Laterality Modality Pelvis, Hip Other Specimen (Source) Anatomical Location Collection Method / Collectio n Time Received Time / Laterality Volume Narrative 06/30/2003 9:00 AM EMBLEM CUTTER There is no fracture or dislocation. ??There is no bone or soft tissue abnormality. ??The femoral head ossifica tion center have fused bilaterally. [id number]- [id number] Dictating RIVERA LOMBARDO RADIOLOGIST Procedure Note Rivera Guadalupe - 07/04/2016Formattin g of this note might be different from the original. There is no fracture or dislocation. The re is no bone or soft tissue abnormality. The femoral head ossificati on center have fused bilaterally. VA-01- [id number] Dictating RIVERA LOMBARDO RADIOLOGIST Rahat Mix PA-C RAD GD Beta Strep Resp Cult (07/25/2001 1:09 PM EMBLEM CUTTER) athologist Signature Strep Screen SEE TEXT HP CONVERSION Comment: Patient: MINO CLEMENTE Culture Strep Screen, Throat @ ?Collected: ??[id number] ??[id number] Source: Throat ?Processed: ??[id number] ??[id number] ? 1V Final Report ------ ?[id number] ??1000 No beta hemolytic Strep group A isolated . @ = Strep Screen Performed at ??[address] [place], [place] ?[address] Specimen (Source) Anatomical Collection Method Collection Time Re ceived Time Location / / Volume Laterality 07/25/2001 1:09 PM EMBLEM CUTTER Jessica Kenney MD LAB_1 Performing Organization Address [facility] Phon e Number HP CONVERSION XR Elbow [...] Group A Antigen Test (04/08/1999 5:51 PM EMBLEM CUTTER) [facility] Time Signature Strep Group A Negative Negative HP CONVERSION Antigen Test Comment: Culture to follow. Specimen (Source) Anatomical Collection Method Collection Time Re ceived Time Location / / Volume Laterality 04/08/1999 5:51 PM EMBLEM CUTTER Jackson Rivera MD LAB_1 Performing Organization Address City/[facility] Phon e Number HP CONVERSION Beta Strep Followup (04/08/1999 5:51 PM EMBLEM CUTTER) P athologist Signature Strep Screen SEE TEXT HP CONVERSION Comment: Patient: MINO CLEMENTE Rapid Strep Follow up Culture @ ? Collected: ??[id number] ??[id number] Source: Throat ?Processed: ??[id number] ??[id number] ? 1V Final Report ------ ?[id number] ??1130 No beta hemolytic Strep group A isolated . @ = Rapid F/U Cult Performed at [address] [place] [place] ?[address] Specimen (Source) Anatomical Collection Method Collection Time Re ceived Time Location / / Volume Laterality 04/08/1999 5:51 PM EMBLEM CUTTER Jackson Rivera MD LAB_1 Performing Organization Address City/[facility] Phon e Number HP CONVERSION Strep Group A Antigen Test (08/06/1998 11:10 AM CDT) Analysis Performed At [facility] Strep Group A Positive Negative HP CONVERSION Antigen Test Specimen (Source) Anatomical Collection Method Collection Time Re ceived Time Location / / Volume Laterality 08/06/1998 11:10 AM CDT Darryn Olson MD LAB_1 Performing Organization Address City/[facility]/ZIP Code Phon e Number HP CONVERSION Strep Group A Antigen Test (06/08/1998 10:09 AM EMBLEM CUTTER) Analysis Performed At [facility] Strep Group A Negative Negative HP CONVERSION Antigen Test Comment: Culture to follow. Specimen (Source) Anatomical Collection Method Collection Time Re ceived Time Location / / Volume Laterality 06/08/1998 10:09 AM EMBLEM CUTTER Rivera Izquierdo MD LAB_1 Performing Organization Address City/[facility]/ZIP Code Phon e Number HP CONVERSION (ABNORMAL) Beta Strep Followup (06/08/1998 10:09 AM EMBLEM CUTTER) [facility] Time Signature Strep Screen SEE TEXT HP CONVERSION (A) Comment: Patient: MINO CLEMENTE Rapid Strep Follow up Culture @ ? Collected: ??[id number] ??[id number] Source: Throat ?Processed: ??[id number] ??1012 ? 1C Final Report ------ ?[id number] ??1000 Beta Strep Group A Present. ICSI Pharyngitis guideline recommends Penicillin V potassium (Pen VK) in nonal lergic patients. If < 50 lbs, 250 mg PenVK BID for 10 day s. >=50 lbs, 500 mg PenVK BID for 10 days. @ = Rapid F/U Cult Performed at [address] [place], [place] ?[address] Specimen (Source) Anatomical Collection Method Collection Time Re ceived Time Location / / Volume Laterality 06/08/1998 10:09 AM EMBLEM CUTTER Rivera Izquierdo MD LAB_1 Performing Organization Address City/State/ZIP Code Phon e Number HP CONVERSION WBC, Blood (05/29/1998 3:47 PM EMBLEM CUTTER) athologist Signature White Blood 6.3 5.0 - 14.5 HP CONVERSION Cell Count K/cmm Specimen (Source) Anatomical Collection Method Collection Time Re ceived Time Location / / Volume Laterality 05/29/1998 3:47 PM EMBLEM CUTTER Benita Worthy III, MD LAB_1 Performing Organization Address City/State/ZIP Code Phon e Number HP CONVERSION (ABNORMAL) Beta Strep Resp Cult (04/26/1998 3:23 PM EMBLEM CUTTER) Analysis Performed At Patho logist Time Signature Strep Screen SEE TEXT HP CONVERSION (A) Comment: Patient: MINO CLEMENTE Culture Strep Screen, Throat @ ?Collected: ??[id number] ??[id number] Source: THROAT ?Processed: ??[id number] ??[id number] ? 1C Final Report ------ ?[id number] ??0911 Beta Strep Group A Present. ICSI Pharyngitis guideline recommends Penicillin V potassium (Pen VK) in nonal lergic patients. If < 50 lbs, 250 mg PenVK BID for 10 day s. >=50 lbs, 500 mg PenVK BID for 10 days. @ = Strep Screen Performed at [address] [place], [place] ?[address] Specimen (Source) Anatomical Collection Method Collection Time Re ceived Time Location / / Volume Laterality 04/26/1998 3:23 PM EMBLEM CUTTER Mary Stewart MD LAB_1 Performing Organization Address City/State/ZIP Code Phon e Number HP CONVERSION Strep Group A Antigen Test (04/05/1998 10:52 AM EMBLEM CUTTER) Analysis Performed At [facility]o [facility] Time Signature Strep Group A Negative Negative HP CONVERSION Antigen Test Comment: Culture to follow. Specimen (Source) Anatomical Collection Method Collection Time Re ceived Time Location / / Volume Laterality 04/05/1998 10:52 AM EMBLEM CUTTER Jaquan Montanez MD LAB_1 Performing Organization Address [facility] Code Phon e Number HP CONVERSION (ABNORMAL) Beta Strep Followup (04/05/1998 10:52 AM EMBLEM CUTTER) Analysis Performed At Patho [facility] Time Signature Strep Screen SEE TEXT HP CONVERSION (A) Comment: Patient: MINO CLEEMNTE Rapid Strep Follow up Culture @ ? Collected: ??[id number] ??1052 Source: Throat ?Processed: ??[id number] ??1054 ? 1C Final Report ------ ?[id number] ??1100 Beta Strep Group A Present. ICSI Pharyngitis guideline recommends Penicillin V potassium (Pen VK) in nonal lergic patients. If < 50 lbs, 250 mg PenVK BID for 10 day s. >=50 lbs, 500 mg PenVK BID for 10 days. @ = Rapid F/U Cult Performed at [address] [place], [place] ?[address] Specimen (Source) Anatomical Collection Method Collection Time Re ceived Time Location / / Volume Laterality 04/05/1998 10:52 AM EMBLEM CUTTER Jaquan Montanez MD LAB_1 Performing Organization Address City/[facility]/ZIP Code Phon e Number HP CONVERSION Strep Group A Antigen Test (02/27/1998 10:38 AM EMBLEM CUTTER) Analysis Performed At [facility] Time Signature Strep Group A Negative Negative HP CONVERSION Antigen Test Comment: Culture to follow. Specimen (Source) Anatomical Collection Method Collection Time Re ceived Time Location / / Volume Laterality 02/27/1998 10:38 AM EMBLEM CUTTER Mary Stewart MD LAB_1 Performing Organization Address City/[facility]/ZIP Code Phon e Number HP CONVERSION Beta Strep Followup (02/27/1998 10:38 AM EMBLEM CUTTER) P athologist Signature Strep Screen SEE TEXT HP CONVERSION Comment: Patient: MINO CLEMENTE Rapid Strep Follow up Culture @ ? Collected: ??[id number] ??[id number] Source: Throat ?Processed: ??[id number] ??1040 ? 1C Final Report ------ ?[id number] ??1010 No beta hemolytic Strep group A isolated . @ = Rapid F/U Cult Performed at [address] [place], [place] ?[address] Specimen (Source) Anatomical Collection Method Collection Time Re ceived Time Location / / Volume Laterality 02/27/1998 10:38 AM EMBLEM CUTTER Mary Stewart MD LAB_1 Performing Organization Address [facility] Phon e Number HP CONVERSION (ABNORMAL) WBC, Blood (02/27/1998 9:03 AM EMBLEM CUTTER) Analysis Performed At Patho logist Time Signature White Blood 3.4 (LL) 5.0 - 14.5 HP CONVERSION Cell Count K/cmm Specimen (Source) Anatomical Collection Method Collection Time Re ceived Time Location / / Volume Laterality 02/27/1998 9:03 AM EMBLEM CUTTER Mary Stewart MD LAB_1 Performing Organization Address [facility] Phon e Number HP CONVERSION Hemoglobin, Blood (02/27/1998 9:03 AM EMBLEM CUTTER) P athologist Signature Hemoglobin 13.9 11.5 - 15.0 HP CONVERSION gm/dL Specimen (Source) Anatomical Collection Method Collection Time Re ceived Time Location / / Volume Laterality 02/27/1998 9:03 AM EMBLEM CUTTER Mary Stewart MD LAB_1 Performing Organization Address [facility] Code Phon e Number HP CONVERSION Platelets (02/27/1998 9:03 AM EMBLEM CUTTER) P athologist Signature Platelet Count 266 150 - 450 HP CONVERSION k/cmm Specimen (Source) Anatomical Collection Method Collection Time Re ceived Time Location / / Volume Laterality 02/27/1998 9:03 AM EMBLEM CUTTER Mary Stewart MD LAB_1 Performing Organization Address [facility] Phon e Number HP CONVERSION Morph Final Report (02/27/1998 9:03 AM EMBLEM CUTTER) Patholo gist Method Time Signature Morphology SEE TEXT No normal HP CONVERSION Final Report range Comment: Patient: MINO CLEMENTE ?Morphology Pathology # ??[id number] ?Date Obtained: ? Date Received: DIAGNOSIS: ?1. [...] / / Volume Laterality 02/27/1998 9:03 AM EMBLEM CUTTER Mary Stewart MD LAB_1 Performing Organization Address City/[facility] Phon e Number HP CONVERSION Strep Group A Antigen Test (01/26/1998 3:25 PM CDT) Analysis Performed At Patho logist Time Signature Strep Group A Negative Negative HP CONVERSION Antigen Test Comment: Culture to follow. Specimen (Source) Anatomical Collection Method Collection Time Re ceived Time Location / / Volume Laterality 01/26/1998 3:25 PM CDT Rivera Izquierdo MD LAB_1 Performing Organization Address [facility] Code Phon e Number HP CONVERSION Beta Strep Followup (01/26/1998 3:25 PM CDT) P athologist Signature Strep Screen SEE TEXT HP CONVERSION Comment: Patient: MINO CLEMENTE Willie Rapid Strep Follow up Culture @ ? Collected: ??[id number] ??[id number] Source: Throat ?Processed: ??[id number] ??1528 ? 1C Final Report ------ ?[id number] ??0912 No beta hemolytic Strep group A isolated . @ = Rapid F/U Cult Performed at [address] [place] ?[address] Specimen (Source) Anatomical Collection Method Collection Time Re ceived Time Location / / Volume Laterality 01/26/1998 3:25 PM CDT Rivera Izquierdo MD LAB_1 Performing Organization Address [facility] Phon e Number HP CONVERSION Strep Group A Antigen Test (11/16/1997 11:56 AM CDT) Analysis Performed At [facility] Time Signature Strep Group A Negative Negative HP CONVERSION Antigen Test Comment: Culture to follow. Specimen (Source) Anatomical Collection Method Collection Time Re ceived Time Location / / Volume Laterality 11/16/1997 11:56 AM CDT Rivera Izquierdo MD LAB_1 Performing Organization Address City/[facility] Phon e Number HP CONVERSION Beta Strep Followup (11/16/1997 11:56 AM CDT) athologist Signature Strep Screen SEE TEXT HP CONVERSION Comment: Patient: MINO CLEMENTE Rapid Strep Follow up Culture @ ? Collected: ??[id number] ??[id number] Source: Throat ?Processed: ??[id number] ??1158 ? 1C Final Report ------ ?[id number] ??0913 No beta hemolytic Strep group A isolated . @ = Rapid F/U Cult Performed at [address] [place], [place] ?[address] Specimen (Source) Anatomical Collection Method Collection Time Re ceived Time Location / / Volume Laterality 11/16/1997 11:56 AM CDT Rivera Izquierdo MD LAB_1 Performing Organization Address City/[facility] Phon e Number HP CONVERSION Strep Group A Antigen Test (08/31/1997 12:07 PM CDT) Analysis Performed At [facility] Time Signature Strep Group A Negative Negative HP CONVERSION Antigen Test Comment: Culture to follow. Specimen (Source) Anatomical Collection Method Collection Time Re ceived Time Location / / Volume Laterality 08/31/1997 12:07 PM CDT Mary Stewart MD LAB_1 Performing Organization Address City/[facility]/ZIP Code Phon e Number HP CONVERSION Beta Strep Followup (08/31/1997 12:07 PM CDT) athologist Signature Strep Screen SEE TEXT HP CONVERSION Comment: Patient: CUAUHTEMOC MINO Tapia Rapid Strep Follow up Culture @ ? Collected: ??[id number] ??1207 Source: Throat ?Processed: ??[id number] ??1209 Final Report ------ ?[id number] ??0732 No beta hemolytic Strep group A isolated . @ = Rapid F/U Cult Performed at [address] [place] ?[address] Specimen (Source) Anatomical Collection Method Collection Time Re ceived Time Location / / Volume Laterality 08/31/1997 12:07 PM CDT Mary Stewart MD LAB_1 Performing Organization Address City/State/ZIP Code Phon e Number HP CONVERSION Beta Strep Resp Cult (08/01/1997 4:43 PM CDT) P athologist Signature Strep Screen SEE TEXT HP CONVERSION Comment: Patient: MINO CLEMENTE Culture Strep Screen, Throat @ ?Collected: ??[id number] ??[id number] Source: Throat ?Processed: ??[id number] ??1644 ? HELENA Final Report ------ ?[id number] ??0812 No beta hemolytic Strep group A isolated . @ = Strep Screen Performed at [address] [place] ?[address] Specimen (Source) Anatomical Collection Method Collection Time Re ceived Time Location / / Volume Laterality 08/01/1997 4:43 PM CDT Mary Stewart MD LAB_1 Performing Organization Address City/State/ZIP Code Phon e Number HP CONVERSION (ABNORMAL) Beta Strep Resp Cult (07/11/1997 4:46 PM EMBLEM CUTTER) Analysis Performed At Patho logist Time Signature Strep Screen SEE TEXT HP CONVERSION (A) Comment: Patient: MINO CLEMENTE Culture Strep Screen, Throat @ ?Collected: ??[id number] ??[id number] Source: THROAT ?Processed: ??[id number] ??1648 ? Throat ??,, Final Report ------ ?1055 Beta Strep Group A Present. ICSI Pharyngitis guideline recommends Penicillin V potassium (Pen VK) in nonal lergic patients. If < 50 lbs, 250 mg PenVK BID for 10 day s. >=50 lbs, 500 mg PenVK BID for 10 days. @ = Strep Screen Performed at [address] [place], [place] ?[address] Specimen (Source) Anatomical Collection Method Collection Time Re ceived Time Location / / Volume Laterality 07/11/1997 4:46 PM EMBLEM CUTTER Mary Stewart MD LAB_1 Performing Organization Address City/State/ZIP Code Phon e Number HP CONVERSION (ABNORMAL) Beta Strep Resp Cult (06/26/1997 12:09 PM EMBLEM CUTTER) Analysis Performed At Patho logist Time Signature [...] Strep Screen Performed at [address] [place] ?[address] Specimen (Source) Anatomical Collection Method Collection Time Re ceived Time Location / / Volume Laterality 06/26/1997 12:09 PM EMBLEM CUTTER Jolie Cazares MD LAB_1 Performing Organization Address [facility] Phon e Number HP CONVERSION Strep Group A Antigen Test (05/11/1997 4:58 PM EMBLEM CUTTER) Analysis Performed At Patho logist Time Signature Strep Group A Negative Negative HP CONVERSION Antigen Test Comment: Culture to follow. Specimen (Source) Anatomical Collection Method Collection Time Re ceived Time Location / / Volume Laterality 05/11/1997 4:58 PM EMBLEM CUTTER Mary Stewart MD LAB_1 Performing Organization Address [facility] Phon e Number HP CONVERSION (ABNORMAL) Beta Strep Followup (05/11/1997 4:58 PM EMBLEM CUTTER) Analysis Performed At Patho logist Time Signature Strep Screen SEE TEXT HP CONVERSION (A) Comment: Patient: MINO CLEMENTE Rapid Strep Follow up Culture @ ? Collected: ??[id number] ??[id number] Source: Throat ?Processed: ??[id number] ??[id number] Final Report ------ ?[id number] ??1148 Beta Strep Group A Present. Pharyngitis CQI Grp recommends for nonal lergic patients: If < 50 lbs, 250 mg PenVK BID for 10 day s. >=50 lbs, 500 mg PenVK BID for 10 days. @ = Rapid F/U Cult Performed at [address], [place] ?[address] Specimen (Source) Anatomical Collection Method Collection Time Re ceived Time Location / / Volume Laterality 05/11/1997 4:58 PM EMBLEM CUTTER Mary Stewart MD LAB_1 Performing Organization Address City/State/ZIP Code Phon e Number HP CONVERSION documented in this encounter Visit Diagnoses Not on filedocumented in this encounter Care Teams Photogrammetric Stereo Compiler Relationship Specialty Start Date End Date Brisa Smith PA-C PCP - General 07/30/10 04/18/15 [address] [place] [address] documented as of this encounter
== END 2022-03-28 12:51 | disposition home or self-care (01) ==
LOC: US 12:51
PROVIDERS: Visit Provider Advanced Practice Midwife
DX: O09.819 Supervision of pregnancy resulting from assisted reproductive technology, unspecified trimester (principal)
CPT/HCPCS: 76819

== ENCOUNTER 2022-04-11 08:52 | Outpatient (CLI) | payer OTHER, SELFPAY ==
[2022-04-11 10:52] LABS: Alanine Aminotransferase* 13 U/L (4-35); Aspartate Amino Transferase* 22 U/L (12-35)
[2022-04-11 11:05] LABS: Total Protein Urine 20 mg/dL
[2022-04-11 11:09] LABS: Creatinine Urine 63.3 mg/dL
== END 2022-04-11 08:53 | disposition home or self-care (01) ==
PROVIDERS: Visit Provider Advanced Practice Midwife
DX: O09.819 Supervision of pregnancy resulting from assisted reproductive technology, unspecified trimester (principal)
CPT/HCPCS: 82570; 84156; 84450; 84460

== ENCOUNTER 2022-04-18 05:00 | Inpatient (IN) | payer OTHER, SELFPAY ==
[2022-04-18] VITALS (55 sets, daily range): BP systolic 92–177; BP diastolic 50–110; PULSE 65–114; RESP 16–20; TEMP 36.8–36.9; O2SAT 96–100; BMI 27.7
--- NOTE | 2022-04-18 05:35 | P.LDBA_ITS ---
Documented by User: Gissel Looney CNM 04/18/22 06:00 Subjective History of Present Illness Time Seen by Provider: 05:37 Date Seen: 04/18/22 Narrative: Hellen is being admitted to Labor and Delivery for Intense early labor. She is a 31 year old at 40 0/7 weeks gestation. Her full history and physical was dictated by Gary Worrell CNM on 03/28/22. Please see this for details. Hellen is crying, breathing through contractions, vomiting and shaking. Stated that contractions started about 4 hours ago and have been very intense since then and have been getting stronger to the point that she is having difficulty coping at this point. Had planned waterbirth but tub room is occupied. Blood Type: O positive H&P done 03/28 by Gary Worrell CNM 1. Anxiety and depression. Experinceing increased anxiety 04/04-Lexapro ordered. 2. IVF * Level 2 ultrasound: Bilobed placenta, posterior/anterior wrapping right lateral, no previa, normal anatomy, estimated weight 76% * echo: 12/18/2021, normal echo * USN for EFW on 02/01/22 at 29w1d due to insufficient weight gain in . Breech, SDP: 4.7cm. EFW 1315 g, 2 lb 4 oz, 36%. BPD <3 %, HC 28%, AC 68%, FL 13%. * USN 03/07/2022: Vtx. SDP 5.5 cm, EFW: 2205 g, 4#14oz., 28%. BPD 40%, HC 8%, AC 40%, FL 21%. Comment: the head was suboptimally measured due to head position. * testing starting at 36 weeks: weekly NST or BPP 3. Headaches * Magnesium supplementation 4. Poor maternal weight gain, food aversions, heartburn * 11/26/2021: Omeprazole 20 mg daily * 02/01/2022: USN for EFW: Breech, SDP 4.7cm, EFW 1315gm, 2 lb 14 oz, 36%. BPD <3%, HC 28%, AC 68%, FL 13%. 5. Insomnia * Unisom prn. 6. Declines 50 g Glucola. Declines glucose testing x1 week. Planning the fresh test, natural glucose drink at 28 weeks. * 01/28/22 1 hour GTT with 50 g Glucola: 148 * 3 hour GTT 02/01/22: 97H, 143, 111, 81 7. Covid in at 31.5 weeks * previously scheduled U/S at 33 weeks for IVF * declines US at 38 weeks at this time Immunizations: Tdap: 02/01/22 Flu: 02/01/22 OB - H&P: Exam Physical Exam: Vital signs: Pulse BP Pulse Ox 84 134/81 100 04/18/22 04:31 04/18/22 04:31 04/18/22 04:15 Narrative: Objective: VSS, afebrile General Appearance:? Teary,?appears very uncomfortable, but cooperative. . ? Psychiatric Exam: Alert and oriented, appropriate affect Abdomen: Gravid Ctx: ?Q 2-5 min apart. Moderate ? FHTs: ?Baseline: 135 ? ? Variability: Moderate ? Accels: Present ? ?Decels: ?Absent SVE: /0 Membranes: Intact ? position: Vertex, by bedside u/s ? ? OB - Problem Based A/P Additional Plan (1) Distress from pain in labor: Status: Acute (2) Anxiety: Status: Acute (3) resulting from in vitro fertilization: Status: Acute Plan ASSESSMENT:? 31 at 40 0/7 weeks gestation? complicated by:?IVF conception, Anxiety, Headaches, Covid @ 31. 5 weeks Labor type: Spontaneous, Early labor? Category 1 FHR pattern.?? GBS negative? PLAN:? 1. Routine intrapartum cares as ordered. Continue with expectant management? 2. Monitoring per policy, intermittent? 3. Planning unmedicated . Desires water . Consent signed. Hep C negative. Candidate for analgesia of choice.?? 4. Patient encouraged to reposition and ambulate to promote physiologic labor and .? 5. Anticipate ? ? Documented by User: Pamela Kuhn CNM 04/18/22 06:20 Subjective History of Present Illness Narrative: Hellen is being admitted to Labor and Delivery for Intense early labor. She is a 31 year old at 40 0/7 weeks gestation. Her full history and physical was dictated by Gary Worrell CNM on 03/28/22. Please see this for details. Hellen is crying, breathing through contractions in good control. Does have some mild shaking from labor. Having some problems with nausea and vomiting. Stated that contractions started about 4 hours ago and have been very intense since then and have been getting stronger to the point that she is having difficulty coping at this point. Had planned waterbirth but tub room is occupied. Blood Type: O positive H&P done 03/28 by Gary Worrell CNM 1. Anxiety and depression. Experiencing increased anxiety 04/04-Lexapro ordered. 2. IVF * Level 2 ultrasound: Bilobed placenta, posterior/anterior wrapping right lateral, no previa, normal anatomy, estimated weight 76% * echo: 12/18/2021, normal echo * USN for EFW on 02/01/22 at 29w1d due to insufficient weight gain in . Breech, SDP: 4.7cm. EFW 1315 g, 2 lb 4 oz, 36%. BPD <3 %, HC 28%, AC 68%, FL 13%. * USN 03/07/2022: Vtx. SDP 5.5 cm, EFW: 2205 g, 4#14oz., 28%. BPD 40%, HC 8%, AC 40%, FL 21%. Comment: the head was suboptimally measured due to head position. * testing starting at 36 weeks: weekly NST or BPP 3. Headaches * Magnesium supplementation 4. Poor maternal weight gain, food aversions, heartburn * 11/26/2021: Omeprazole 20 mg daily * 02/01/2022: USN for EFW: Breech, SDP 4.7cm, EFW 1315gm, 2 lb 14 oz, 36%. BPD <3%, HC 28%, AC 68%, FL 13%. 5. Insomnia * Unisom prn. 6. Declines 50 g Glucola. Declines glucose testing x1 week. Planning the fresh test, natural glucose drink at 28 weeks. * 01/28/22 1 hour GTT with 50 g Glucola: 148 * 3 hour GTT 02/01/22: 97H, 143, 111, 81 7. Covid in at 31.5 weeks * previously scheduled U/S at 33 weeks for IVF * declines US at 38 weeks at this time Immunizations: Tdap: 02/01/22 Flu: 02/01/22 OB - H&P: Exam Physical Exam: Narrative: Objective: VSS, afebrile General Appearance:? Teary,?appears very uncomfortable, but cooperative and in good control. ? Psychiatric Exam: Alert and oriented, appropriate affect Abdomen: Gravid Ctx: ?Q 2-5 min apart. Moderate ? FHTs: ?Baseline: 135 ? ? Variability: Moderate ? Accels: Present ? ?Decels: ?Absent SVE: Membranes: Intact ? position: Vertex, by bedside u/s ? ? OB - Problem Based A/P Additional Plan (1) Distress from pain in labor: Status: Acute (2) Anxiety: Status: Acute (3) resulting from in vitro fertilization: Status: Acute Plan ASSESSMENT:? 31 at 40 0/7 weeks gestation? complicated by:?IVF conception, Anxiety, Headaches, Covid @ 31. 5 weeks Labor type: Spontaneous, Early labor? Category 1 FHR pattern.?? GBS negative? PLAN:? 1. Routine intrapartum cares as ordered. Continue with expectant management? 2. Monitoring per policy, intermittent? 3. Planning unmedicated . Desires water . Consent signed. Hep C negative. Candidate for analgesia of choice.?? 4. Patient encouraged to reposition and ambulate to promote physiologic labor and .? 5. Pt requesting IV for hydration r/t nausea. Zofran also ordered. 6.Anticipate ? ? Delivery/Labor/Induction Plan Plan: expectant management
[2022-04-18 05:52] LABS: SARS Antigen* negative (Negative)
[2022-04-18] MEDS: ONDANSETRON 2 MG/ML inj 4 MG IV (06:00)
[2022-04-18] MEDS: LACTATED RINGERS 1000 ML 1,000 ML 500 ML IV (06:00)
[2022-04-18] MEDS: fentaNYL 250 MCG/5 ML inj 100 MCG EPIDURAL ×2 (07:10→16:56)
[2022-04-18] MEDS: ROPIVACAINE 0.2% 100 ml 100 ML 12 MG EPIDURAL ×2 (07:19→15:02)
[2022-04-18] MEDS: LIDOCAINE 2% (PF) 5 ML VIAL EPIDURAL (07:19)
--- NOTE | 2022-04-18 07:31 | PM.ANBPRC ---
PFSH PFSH Surgical History (Updated 03/28/22 @ 14:22 by Oksana Worrell CNM) Hx of tonsillectomy [place] teeth extracted Family History (Updated 03/28/22 @ 14:24 by Oksana Worrell CNM) Mother Melanoma Cervical cancer Maternal Grandfather Heart disease Prostate cancer Social History (Updated 03/28/22 @ 14:25 by Oksana Worrell CNM) Are you following a diet prescribed by a doctor: No Are you following a special diet: No Highest level of school completed/degree received: Bachelor's degree Physical activity type: walking, running and other Physical activity type details: HIIT Smoking Status: Never smoker Non-prescribed substance use: denies use Caffeine: No Meds Home Medications and Allergies Home Medications Medication Instructions Recorded Confirmed Type cholecalciferol (vitamin D3) 50 2,000 unit PO DAILY 11/26/21 04/18/22 History mcg (2,000 unit) tablet docosahexaenoic acid 200 mg mg PO 11/26/21 04/11/22 History capsule ( DHA) magnesium oxide 400 mg PO QDAY 02/01/22 04/18/22 History doxylamine succinate 25 mg tablet 25 mg PO QHS PRN 02/19/22 04/18/22 History (Unisom (doxylamine)) Allergies Allergy/AdvReac Type Severity Reaction Status Date / Time Sulfa (Sulfonamide Allergy Intermediate Rash Verified 04/16/22 19:26 Antibiotics) penicillin V AdvReac Intermediate Rash Verified 04/11/22 08:22 Results Labs Labs: Laboratory Results - last 24 hr 04/18/22 05:25 SARS-CoV-2 Ag (Rapid) negative Vital Signs Vital Signs: Last Vital Signs Temp 98.5 F 04/18/22 04:16 Pulse 79 04/18/22 07:30 Resp 20 04/18/22 04:16 BP 101/58 L 04/18/22 07:30 Pulse Ox 100 04/18/22 07:26 Weight: 82.735 kg Height: 172.72 cm Anesthesia Procedures Epidural Insertion Patient Location: OB Start Time: 06:50 Stop Time: 07:50 Start Date: 04/18/22 Stop Date: 04/18/22 Reason for Block: primary anesthetic Patient Position: sitting Performed By: Sebastian Banks Preanesthetic Checklist: IV checked, risks and benefits discussed, surgical consent, monitors and equipment checked, pre-op evaluation, timeout performed and anesthesia consent Prep: chlorhexidine gluconate Monitoring: blood pressure monitoring, retail route supervisor, continuous pulse oximetry and heart rate Approach: midline Vertebral Space: lumbar (1-5) Needle Type: Tuohy needle Injection Technique: continuous catheter Needle gauge: 17 Needle Length (cm): 10 cm Needle Insertion Depth (cm): 6 Catheter Gauge: 19 Catheter Type: multi-orifice Catheter at skin depth (cm): 12 Test Dose Result: negative and lidocaine 1.5% with epinephrine 1 to 200,000 Events: other
[2022-04-18] MEDS: LACTATED RINGERS 1000 ML 1,000 ML 125 ML IV (10:08)
--- NOTE | 2022-04-18 10:55 | P.OBPN_ITS ---
Subjective Date Seen: 04/18/22 Narrative: Hellen received an epidural this morning and is now comfortable was able to take a nap. She feels better and rested after. She is requesting a SVE at this time to make a plan for continuing labor as her contractions have spaced out to every 5-7 minutes. SVE was found to be 4cm/80%/0 bulging bag. Questionable position of LOP. Offered Pitocin or SROM labor augmentation. Risks and benefits of each discussed. She would like to use Pitocin to augment her labor. Encourage to work with her RN on position changes to encourage baby to rotate into a OA position. Objective Vital Signs: Last Vital Signs Temp 98.5 F 04/18/22 04:16 Pulse 70 04/18/22 10:46 Resp 20 04/18/22 04:16 BP 114/76 04/18/22 10:46 Pulse Ox 100 04/18/22 07:26 Pelvic Exam Dilation (cm): 4 Effacement (%): 80 Station: 0 Contractions Monitor mode: External Contraction pattern: Regular Contraction intensity: Moderate Assessment Assessment: active labor Station: 0 Status: Category l Heart Rate Baseline: 120 Veneer Sorter Variability: Moderate (6-25) Monitor Accelerations: Present Monitor Decelerations: None
[2022-04-18] MEDS: OXYTOCIN 30 unit/500 ML in NS 30 UNIT/500 ML BAG IVPB (11:11)
--- NOTE | 2022-04-18 17:28 | PM.OBPRCVD ---
Procedure Procedure Done: [facility] Global Procedure Details: Patient is a 31 year-old G1 now P1 admitted on 04/18/22 at 40 Weeks, 0 Days gestation for active labor.? Cervical exam on admission was 3 cm/90 % effaced/0 station with membranes intact in vertex presentation.? Contractions were every 2-5 minutes.? heart rate demonstrated baseline 135 bpm with moderate variability, + accelerations, - decelerations; a category 1 tracing.? SROM occurred at 1115 with meconium fluid.? ?? Labor Analgesia:? Epidural? ?? Pitocin:? Yes for augmentation and AMTSL? ?? Labor onset:? 0100? ?? Complete:? 1410? ?? Pushing:? 1421? ?? heart tones during second stage were 2. Baseline 125, moderate variability with some periods of minimal, +accels, variable decels.? ?? At 1544 a viable male infant delivered in vertex ADONAY presentation over intact perineum via spontaneous vaginal delivery.? Infant was placed on maternal abdomen.? Cord was clamped and cut >5 minute delay.? Infant weight pending.? 8 at 1 minute and 8 at 5 minutes.? Shoulder dystocia: no.? Nuchal cord: no.? ?? Placenta delivered safter manual removal by Dr. Richmond and complete at 1653 with a 3 vessel cord.? ?? Mother and infant were stable after delivery.? ?? Lacerations:? 2nd degree, repaired with 3.0 vicryl.? ?? Blood loss: 100 mL.? Blood loss measurement type: QBL? Sponge and needles counts are correct.? Events: Other (ivf) Intrapartal Events: Labor Augmentation and Mod/Heavy Meconium Fluid Delivery augmentation: pitocin Delivery monitor: external FHT and external uterine Route of delivery: Episiotomy description: None Laceration description: Perineal - 2nd Degree Delivery repair: Vicryl Estimated blood loss (mL): 100 Anesthesia type: Epidural Disposition: floor Gender: Male presentation: vertex Placental Delivery Description: Manual Removal Cord Description: 3 Vessels total score - 1 minute: 8 total score - 5 minute: 8 OB Vag Delivery Procedures Additional Procedures Laceration Repair: Yes Other: Yes (manual placental removal by the car installations supervisor MD)
--- NOTE | 2022-04-18 17:58 | CRLHL7_ITS ---
For Patients: As a result of the Century Cures Act, medical imaging exams and procedure reports are released immediately into your electronic medical record. You may view this report before your referring provider. If you have questions, please contact your health care provider. INDICATION: Recent delivery, check to make sure no retained products of conception. TECHNIQUE: Ultrasound pelvis transabdominal and transvaginal for better assessment or to better visualize the endometrium. Real-time sonographic images with spectral and color Doppler imaging of the ovaries were obtained. COMPARISON: None. FINDINGS: Uterus: 21.3 x 8.8 x 12.4 cm. Normal echotexture of the myometrium. No masses. Endometrium: Transvaginal imaging was performed to better evaluate the endometrium. Endometrial thickness measures 28 mm. No definite endometrial mass. Right ovary measures 3.3 x 1.7 x 1.9 centimeters. Nonvisualization of left ovary. Cul-de-sac: No significant free fluid. IMPRESSION: Expected appearance of uterus. Mild heterogeneous thickening of the endometrium, with some scant vascularity, but without definite vascular mass. If there is persistent clinical concern, recommend short-term ultrasound. Normal right ovary. Nonvisualization of left ovary. Dictated by Kenny Del Valle MD @ 04/18/2022 7:01:58 PM (Electronically Signed)
[2022-04-18] MEDS: CEFAZOLIN 2 GM in 0.9 % SODIUM CHLORIDE Mini-bag 100 ML IVPB (18:08)
[2022-04-18] MEDS: IBUPROFEN 600 MG TABLET PO (19:40)
[2022-04-19] MEDS: ACETAMINOPHEN 500 MG TABLET 1000 MG PO ×2 (00:35→13:51)
[2022-04-19] MEDS: ESCITALOPRAM 10 MG TABLET PO (00:36)
[2022-04-19] MEDS: IBUPROFEN 600 MG TABLET PO ×2 (01:52→09:43)
[2022-04-19 01:55] VITALS: BP 129/78; PULSE 65; RESP 16; TEMP 36.5; O2SAT 95
[2022-04-19 04:52] VITALS: BP 136/91; PULSE 65; RESP 16; TEMP 36.4; O2SAT 95
--- NOTE | 2022-04-19 08:06 | PM.OBPNVD1 ---
OB - PN:Subj Subjective Time Seen by Provider: 08:06 Date Seen: 04/19/22 Interval history: Subjective: Hellen is a 31 y.o. who was admitted to L & D for pain with labor. ?She had an uncomplicated NVD. ? The patient feels well. ?The pain is well controlled with current medications and declines any prescriptions on discharge, stated she already has tylenol and ibuprofen at home. ?She has no new complaints. ?She is breast feeding and reports things are going well.? the patient has done well.? Vitals have been stable with a few elevated blood pressures.? She has remained afebrile.? Has a good appetite, is tolerating a general diet. ?She is voiding without difficulty.? She is passing gas and has not had a bowel movement.? She is ambulating and denies any dizziness.? Has Small amount of rubra lochia. Objective: VSS except one PP elevated blood pressure GENERAL APPEARANCE: ?normal affect, alert, no distress MOOD: ?appropriate HEENT: normocephalic, neck supple, full ROM CHEST: ?Symmetrical chest wall movement. ?Normal respiratory effort. ?Clear to auscultation HEART: ?regular rate and rhythm ABDOMEN: ?soft, non-tender. Uterine fundus is firm, 3 above/Umbilicus, pushed to the right by full bladder, and is appropriate for the stage of recovery. ?Bowel sounds present. PERINEUM: ?mild edema of the perineum, there is a 2nd degree laceration that is healing well. EXTREMITIES: ?normal and no edema Assessment/Plan G 1 P 1 status post uncomplicated NVD. Lactating Mother Elevated BP 1. ?Continue route PP cares 2. ?. ?May see if desired 3. Continue to monitor blood pressures, if elevated do Pre-Eclampsia labs 4. ?Anticipate discharge home today unless blood pressures continue to be elevated, then plan to discharge home tomorrow. OB - PN: Obj Exam Physical Exam: Vital signs: Temp Pulse Resp BP Pulse Ox O2 Del Method 97.6 F 65 16 136/91 H 95 04/19/22 04:52 04/19/22 04:52 04/19/22 04:52 04/19/22 04:52 04/19/22 04:52 04/19/22 04:52 OB - PN: A/P Vaginal Delivery Assessment and Plan (1) Distress from pain in labor: Status: Acute (2) Anxiety: Status: Acute (3) resulting from in vitro fertilization: Status: Acute
--- NOTE | 2022-04-19 08:20 | P.DS_ITS ---
DS: Providers Provider Time Seen by Provider: 08:20 Date Seen: 04/19/22 Date of admission: 04/18/22 05:00 Primary care physician: Not a Local Provider Admitting Clinician: Pamela Kuhn CNM Attending Physician on discharge: Gissel Looney CNM Date of Discharge: 04/19/22 DS: Diagnosis Discharge Diagnosis (1) state: Status: Acute (2) Lactating mother: Status: Acute (3) Anxiety: Status: Acute Exam Narrative: Exam Narrative: Objective: VSS except one PP elevated blood pressure GENERAL APPEARANCE: ?normal affect, alert, no distress MOOD: ?appropriate HEENT: normocephalic, neck supple, full ROM CHEST: ?Symmetrical chest wall movement. ?Normal respiratory effort. ?Clear to auscultation HEART: ?regular rate and rhythm ABDOMEN: ?soft, non-tender. Uterine fundus is firm, 3 above/Umbilicus, pushed to the right by full bladder, and is appropriate for the stage of recovery. ?Bowel sounds present. PERINEUM: ?mild edema of the perineum, there is a 2nd degree laceration that is healing well. EXTREMITIES: ?normal and no edema Const: Vital Signs, click to edit/add: Vital Signs - 24 hr 04/18/22 08:30 04/18/22 08:30 04/18/22 08:46 Temperature Pulse Rate 75 Pulse Rate [Blood Pressure Cuff] Respiratory Rate Blood Pressure 99/56 L 94/56 L Blood Pressure [Le ft Arm] Pulse Oximetry Oxygen Delivery Sd thod 04/18/22 08:46 04/18/22 09:00 04/18/22 09:00 Temperature Pulse Rate 72 71 Pulse Rate [Blood Pressure Cuff] Respiratory Rate Blood Pressure 98/54 L Blood Pressure [Le ft Arm] Pulse Oximetry Oxygen Delivery Sd thod 04/18/22 09:31 04/18/22 09:31 04/18/22 09:46 Temperature Pulse Rate 66 Pulse Rate [Blood Pressure Cuff] Respiratory Rate Blood Pressure 100/57 L 104/58 L Blood Pressure [Le ft Arm] Pulse Oximetry Oxygen Delivery Sd thod 04/18/22 09:46 04/18/22 10:00 04/18/22 10:00 Temperature Pulse Rate 67 68 Pulse Rate [Blood Pressure Cuff] Respiratory Rate Blood Pressure 108/61 Blood Pressure [Le ft Arm] [facility] 10:15 04/18/22 10:15 04/18/22 10:30 Temperature Pulse Rate 79 Pulse Rate [Blood Pressure Cuff] Respiratory Rate Blood Pressure 128/79 125/75 Blood Pressure [Le ft Arm] Pulse [facility]22 10:30 04/18/22 10:46 04/18/22 10:46 Temperature Pulse Rate 65 70 Pulse Rate [Blood Pressure Cuff] Respiratory Rate Blood Pressure 114/76 Blood Pressure [Le ft Arm] Pulse [facility] 11:00 04/18/22 11:00 04/18/22 11:30 Temperature Pulse Rate 65 Pulse Rate [Blood Pressure Cuff] Respiratory Rate Blood Pressure 107/60 119/72 Blood Pressure [Le ft Arm] Pulse [facility] 11:30 04/18/22 11:45 04/18/22 11:45 Temperature Pulse Rate 73 74 Pulse Rate [Blood Pressure Cuff] Respiratory Rate Blood Pressure 118/77 Blood Pressure [Le ft Arm] Pulse [facility] 04/[facility] 12:00 04/18/22 12:00 04/18/22 12:16 Temperature Pulse Rate 91 Pulse Rate [Blood Pressure Cuff] Respiratory Rate Blood Pressure 111/73 120/80 Blood Pressure [Le ft Arm] Pulse [facility] 04/[facility]22 12:16 04/18/22 12:30 04/18/22 12:30 Temperature Pulse Rate 78 69 Pulse Rate [Blood Pressure Cuff] Respiratory Rate Blood Pressure 123/82 Blood Pressure [Le ft Arm] Pulse [facility] 04/[facility]/22 12:45 04/18/22 12:45 04/18/22 13:00 Temperature Pulse Rate 71 Pulse Rate [Blood Pressure Cuff] Respiratory Rate Blood Pressure 121/79 127/87 Blood Pressure [Le ft Arm] Pulse [facility] 04/[facility] 13:00 04/18/22 13:15 04/18/22 13:15 Temperature Pulse Rate 75 68 Pulse Rate [Blood Pressure Cuff] Respiratory Rate Blood Pressure 126/76 Blood Pressure [Le ft Arm] Pulse [facility] 04/[facility]/22 13:31 04/18/22 13:31 04/18/22 13:45 Temperature Pulse Rate 75 Pulse Rate [Blood Pressure Cuff] Respiratory Rate Blood Pressure 125/74 133/88 Blood Pressure [Le ft Arm] Pulse Oximetry Oxygen Delivery Sd thod 04/18/22 13:45 04/18/22 14:00 04/18/22 14:00 Temperature Pulse Rate 89 85 Pulse Rate [Blood Pressure Cuff] Respiratory Rate Blood Pressure 135/94 H Blood Pressure [Le ft Arm] Pulse Oximetry Oxygen Delivery Sd thod 04/18/22 14:15 04/18/22 14:15 04/18/22 14:30 Temperature Pulse Rate 81 Pulse Rate [Blood Pressure Cuff] Respiratory Rate Blood Pressure 139/94 H 132/85 Blood Pressure [Le ft Arm] Pulse Oximetry Oxygen Delivery Sd thod 04/18/22 14:30 04/18/22 14:47 04/18/22 14:47 Temperature Pulse Rate 71 84 Pulse Rate [Blood Pressure Cuff] Respiratory Rate Blood Pressure 177/91 H Blood Pressure [Le ft Arm] Pulse Oximetry Oxygen Delivery Sd thod 04/18/22 16:28 04/18/22 16:28 04/18/22 16:43 Temperature Pulse Rate 80 Pulse Rate [Blood Pressure Cuff] Respiratory Rate Blood Pressure 126/65 135/73 Blood Pressure [Le ft Arm] Pulse Oximetry Oxygen Delivery Sd thod 04/18/22 16:43 04/18/22 16:58 04/18/22 16:58 Temperature Pulse Rate 85 78 Pulse Rate [Blood Pressure Cuff] Respiratory Rate Blood Pressure 124/65 Blood Pressure [Le ft Arm] Pulse Oximetry Oxygen Delivery Sd thod 04/18/22 17:13 04/18/22 17:13 04/18/22 17:28 Temperature Pulse Rate 67 Pulse Rate [Blood Pressure Cuff] Respiratory Rate Blood Pressure 123/75 171/99 H Blood Pressure [Le ft Arm] Pulse Oximetry Oxygen Delivery Sd thod 04/18/22 17:28 04/18/22 17:43 04/18/22 17:43 Temperature Pulse Rate 83 72 Pulse Rate [Blood Pressure Cuff] Respiratory Rate Blood Pressure 162/90 H Blood Pressure [Le ft Arm] Pulse Oximetry Oxygen Delivery Sd thod 04/18/22 17:44 04/18/22 17:44 04/18/22 17:58 Temperature Pulse Rate 74 Pulse Rate [Blood Pressure Cuff] Respiratory Rate Blood Pressure 140/85 H 139/88 Blood Pressure [Le ft Arm] Pulse Oximetry Oxygen Delivery Me thod 04/18/22 17:58 04/18/22 18:13 04/18/22 18:13 Temperature Pulse Rate 75 78 Pulse Rate [Blood Pressure Cuff] Respiratory Rate Blood Pressure 131/86 Blood Pressure [Le ft Arm] Pulse Oximetry Oxygen Delivery Me thod 04/18/22 18:28 04/18/22 18:28 04/18/22 18:43 Temperature Pulse Rate 74 Pulse Rate [Blood Pressure Cuff] Respiratory Rate Blood Pressure 127/84 128/89 Blood Pressure [Le ft Arm] Pulse Oximetry Oxygen Delivery Me thod 04/18/22 18:43 04/18/22 19:58 04/19/22 01:55 Temperature 98.2 F 97.7 F Pulse Rate 83 Pulse Rate [Blood Pressure Cuff] 76 65 Respiratory Rate 16 16 Blood Pressure Blood Pressure [Le ft Arm] 126/75 129/78 Pulse Oximetry 96 95 Oxygen Delivery Me thod Room Air Room Air 04/19/22 04:52 Temperature 97.6 F Pulse Rate Pulse Rate [Blood Pressure Cuff] 65 Respiratory Rate 16 Blood Pressure Blood Pressure [Le ft Arm] 136/91 H Pulse Oximetry 95 Oxygen Delivery Me thod Room Air OB - DS: Summary Hospital Course Hospital Course: Subjective: Hellen is a 31 y.o. who was admitted to L & D for pain with labor. ?She had an uncomplicated NVD. ? The patient feels well. ?The pain is well controlled with current medications and declines any prescriptions on discharge, stated she already has tylenol and ibuprofen at home. ?She has no new complaints. ?She is breast feeding and reports things are going well.? the patient has done well.? Vitals have been stable with a few elevated blood pressures.? She has remained afebrile.? Has a good appetite, is tolerating a general diet. ?She is voiding without difficulty.? She is passing gas and has not had a bowel movement.? She is ambulating and denies any dizziness.? Has Small amount of rubra lochia. Hellen has a history of anxiety and started Lexapro about a week ago, discussed continuing with the medication and following up at her 2 week appointment or sooner if needed. Problems: State Lactating Mother Elevated Blood Pressures plan: 1. Discharge home with baby 2. Follow up with RN visit next week for blood pressure check. 3. Blood pressure checks 2 times a day at home, call with pressures 140s/90s or higher, or if severe headache that will not go away with tylenol and rest, blurred or severe vision changes, or right sided deep burning pain, 4.Follow up in 2 weeks and 6 weeks in clinic. 5. , may follow up with if needed Peripartum Data Infant delivery method: Vaginal Laceration description: Perineal - 2nd Degree complications: none [place] Gender: Male (Eber) Status at Discharge Functional status at discharge: independent ambulation Overall status at discharge: patient is progressing back to baseline Time Spent with Patient Time attestation: Total time spent providing and/or coordinating discharge services: Time spent: Less than 30 minutes Discharge Plan Discharge Disposition: Home, Self-Care Date of Admission: 04/18/22 05:00 Attending Provider on Discharge: Gissel Looney Primary Care Provider: Provider,Not a Local Condition: Stable Anticipated Discharge Date/Time: 04/19/22 02:00 Discharge Medications: Continued omeprazole 20 mg capsule,delayed release(DR/EC) 20 mg PO QDAY Qty: 30 6RF Unisom (doxylamine) 25 mg tablet 25 mg PO QHS PRN DHA 200 mg capsule 200 mg PO DAILY cholecalciferol (vitamin D3) 50 mcg (2,000 unit) tablet 2,000 unit PO DAILY magnesium oxide 400 mg magnesium tablet 400 mg PO QDAY escitalopram oxalate [Lexapro] 10 mg tablet 10 mg PO QDAY Qty: 30 0RF Discharge Orders: Discharge Order (Routine); Ordered 04/19/22 Ordered By: Gissel Looney Patient Education: OB Over the Counter Medication Information, OB Vaginal/Breast Feeding Additional Instructions: Follow up on 04/23/22 at [facility] for blood pressure check. Take blood pressures 2 times a day at home, call if pressures are 140s/90s or higher, or if symptoms appear such as: -severe headache that will not go away with tylenol and rest -blurred or severe vision changes -right sided deep burning pain. 2 week and 6 week visits Activity Level: Activity as Tolerated Discharge Diet: Regular Follow Up Appointments: Provider,Not a Local [Primary Care Provider] - Forms: [employer] Info Instructions
[2022-04-19 09:45] VITALS: BP 143/87; PULSE 61; RESP 16; TEMP 36.4; O2SAT 97
[2022-04-19 10:22] LABS: Hematocrit 33.6 % (33.0-51.0); Hemoglobin* 11.7 gm/dL (12.0-16.0); Mean Corpuscular HGB Conc 35 gm/dL (32-36); Mean Corpuscular Hemoglobin 31 pg (26-34); Mean Corpuscular Volume 89 fL (80-100); Platelet Count* 175 K/uL (140-440); Red Blood Count 3.78 m/uL (4.00-5.20); Slide Review Reflex No; White Blood Count* 10.62 K/uL (4.50-11.00)
[2022-04-19 10:45] LABS: Alanine Aminotransferase* 14 U/L (4-35); Aspartate Amino Transferase* 33 U/L (12-35); Blood Urea Nitrogen* 8 mg/dL (5-24); Creatinine* 0.8 mg/dL (0.5-1.5); Est. Creatinine Clearance* 101.84; Estimated Glomerular Filt Rate 100 ml/min
[2022-04-19] MEDS: LIDOCAINE 1% MDV 20 ML INJECTION (11:35)
[2022-04-19 12:45] VITALS: BP 134/89; PULSE 61; RESP 16; TEMP 36.8; O2SAT 98
== END 2022-04-19 16:46 | disposition home or self-care (01) | DRG 807 ==
LOC: OB OUT 04-24 06:41
PROVIDERS: Advanced Practice Midwife; Admitting Provider Advanced Practice Midwife; Visit Provider Advanced Practice Midwife
DX: O77.0 Labor and delivery complicated by meconium in amniotic fluid (principal); Z37.0 Single live birth; O70.1 Second degree perineal laceration during delivery; O99.344 Other mental disorders complicating childbirth; F41.9 Anxiety disorder, unspecified; F32.A Depression, unspecified; Z86.16 Personal history of COVID-19; Z3A.40 40 weeks gestation of pregnancy
CPT/HCPCS: 01967; 36415; 76815; 76856; 82565; 84450; 84460; 84520; 85027; 87426; 87635; 99213; A9270; J0690; J2405; J2795; J3010; J7120

== ENCOUNTER 2022-05-08 12:54 | Outpatient (CLI) | payer OTHER, SELFPAY ==
--- NOTE | 2022-05-08 16:05 | P.LACCB_ITS ---
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 Werner Jaundice: No Reason for Consult Reason for Consult: difficulty latching Past Experience Past Experience: No Current Frequency of Day Feedings: every 2 - 3 hours Frequency of Night Feedings: cluster feeding Both Breasts: Yes Suck: strong Latch: wide Length of Time: 5 - 20 minutes/side Pumping Pumping: Yes (2 - 3 times/24 hours) Quantity Pumped: 5 - 10 oz total in 24 hours Supplementing EMB Supplement: Yes (POC are supplementing w/ 1-3 oz EBM overnight to help with cluster feeding) Formula Supplement: No Baby Elimination Number of Wet Diapers a Day: with almost every feeding Number of BM a Day: with about every other feeding Breast/Nipple Condition Breast Information: WNL Maternal Nipple Condition - Left: Common Nipple Maternal Nipple Condition - Right: Common Nipple Sore Nipples: Yes (left side, improving) Onsite Pre-Feed weight: 3.738 kg Post-Feed weight: 3.864 kg Milk Transferred (mL): 126 Pre-Nursing Left Nipple: Within Normal Limits Pre-Nursing Right Nipple: Within Normal Limits Post-Nursing Left Nipple: Within Normal Limits Post-Nursing Right Nipple: Within Normal Limits Assessments/Interventions Assessments/Interventions: Met with mom and her now 3 week old ex- term AGA baby for consult.? Mom reports baby is nursing every 2 - 3 hours during the day and is cluster feeding in the late evening and overnight.? She offers both sides and he nurses between 5 - 20 minutes/side.? She states he's often agitated at the breast and will latch, but then after 5 - 10 minutes push away or sometimes come off acting like he's having trouble with her flow.? She'll offer the other side when that h appens and he will sometimes take it but sometimes is too frustrated or will fall asleep at the breast.? States she'll put him down but he then wakes up 5 - 10 minutes later wanting to nurse again.? This happens more often in the late evening or overnight so dad has been offering a bottle(s) of EBM to help him settle and sleep a little longer.? Mom is pumping 2 - 3 times/day and gets 2 - 3 oz total each pumping session. Breasts WNL- symmetrical with rounded lower quadrants, intramammary distance is <1.5 inches.? Nipples are everted and don't flatten or retract on compression.? The right shows no signs of damage, the left has a 1 mm fissure to the center (stage II - III breakdown).? Mom reports it's healing and the latch has been more comfortable in the past few days on that side.? No s/s infection. Baby has gained 69 grams/day since his last visit on 05/06.? Mom denies any caput/cephalohematoma at delivery and states he has equal ROM when turning his head/moving his extremities.? His palate is WNL.? His upper and lower frenulum are also WNL.? He has a fairly strong suck on a finger.? His tongue extends past the gum line and has good lateral movement. Mom latched baby to the left side in the cradle position and baby had a wide latch, mom was comfortable stating a pain level of initially 2/10.? Baby nursed about 20 minutes without difficulty.? When she was ready to switch him to the right side it was suggested she rouse him first as he would probably nurse more aggressively and he nursed for another 10 minutes transferring a total of 126 ml (4.2 oz).? Plan: 1. Continue to breastfeed ALD- suggested she work to keep him actively nursing and wake him up between sides so he nurses more aggressively on the second side.? Suspect at home he has sleepier feedings so that's why he sometimes has shorter nursing sessions and wakes up so often to feed.? Suggested if he seems to have difficulty with her flow to express a little milk before she latches him.? 2. OK for dad to supplement after mom nurses him at night as this might help him sleep longer.? Reassured her this is a phase and his circadian rhythm will regulate in the next month or so.? Reviewed baby is growing well and there was nothing concerning observed at this visit. 3. OK to continue pumping 2 - 3 times/day if desired. 4. Will f/u with PCP for a 2 month WCC. 5. Encouraged mom to come to the [facility] group or contact the [facility] program in [place] as they may have a group closer to her home. Meds Home Medications and Allergies Home Medications Medication Instructions Recorded Confirmed Type cholecalciferol (vitamin D3) 50 2,000 unit PO DAILY 11/26/21 05/03/22 History mcg (2,000 unit) tablet docosahexaenoic acid 200 mg 200 mg PO DAILY 11/26/21 05/03/22 History capsule ( DHA) magnesium oxide 400 mg PO QDAY 02/01/22 05/03/22 History doxylamine succinate 25 mg tablet 25 mg PO QHS PRN 02/19/22 04/18/22 History (Unisom (doxylamine)) Allergies Allergy/AdvReac Type Severity Reaction Status Date / Time Sulfa (Sulfonamide Allergy Intermediate Rash Verified 05/03/22 12:31 Antibiotics) penicillin V AdvReac Intermediate Rash Verified 05/03/22 12:31
== END 2022-05-08 12:55 | disposition home or self-care (01) ==
LOC: OB LAC 12:55
PROVIDERS: Visit Provider Advanced Practice Midwife
DX: Z39.1 Encounter for care and examination of lactating mother (principal)
CPT/HCPCS: 99211

== ENCOUNTER 2023-12-11 07:54 | Outpatient (CLI) | payer OTHER, SELFPAY ==
--- OUTSIDE RECORDS SUMMARY | 2023-12-11 08:00 | XMS_ITS | Clinical Summary ---
Author Organization [facility] Address [address] [place] [id number] Care Team Providers Care [employer] Leadership Name Role Phone No Ref-Primary, Physician Primary Care Provider Allergies Active Allergy Reactions Criticality Noted Date Comments Penicillins 06/30/2002 PN: LW Reaction: Rash, Generalized Sulfa Antibiotics 06/30/2002 PN: LW Reaction: Rash, Generalized Social History Tobacco Use Types Packs/Day Years Used Date Smoking Tobacco: Never Assessed Adolescent Education Answer Date Record ed Getting School Help Needed Not on file 02/02 Sex and Gender Information Value Date Recorded Sex Assigned at Not on file Gender Identity Not on file Sexual Orientation Not on file Last Filed Vital Signs Vital Sign Reading Time Taken Comments Blood Pressure 127/90 11/16/2018 3:40 AM CDT Pulse 70 11/16/2018 3:40 AM CDT Temperature 36.8 ??C (98.2 ??F) 11/16/2018 3:40 AM CD T Respiratory Rate 18 11/16/2018 3:40 AM CDT Oxygen Saturation 99% 11/16/2018 3:40 AM CDT Inhaled Oxygen Concentration - - Weight - - Height - - Body Mass Index - - Plan of Treatment Health Maintenance Due Date Last Done Comments ADVANCE CARE PLANNING 1989 ANNUAL REVIEW OF HM ORDERS 1989 HIV SCREENING 2004 HEPATITIS C SCREENING 09/07/2007 PAP 2010 DTAP/TDAP/TD IMMUNIZATION (3 - Td or Tdap) 2017 09/07/2007, 10/15/2001 YEARLY PREVENTIVE VISIT 03/18/2020 03/18/2019 COVID-19 Vaccine (2022-2 4 season) 2022 PHQ-2 (once per calendar year) 2023 INFLUENZA VACCINE (#1) 2023 2, 03/18/2019 HEPATITIS B IMMUNIZATION Completed 003, 11/23/2001, 10/15/2001 MENINGITIS IMMUNIZATION Completed 09/07/19 08, 09/07/2007 HPV IMMUNIZATION Completed 09/02/2011, 07/12/2008, 09/07/2007 IPV IMMUNIZATION Aged Out No longer e ligible based on patient's age to complete this topic Pneumococcal Vaccine: Pediatrics (0 to 5 Years) and At-Risk Patients (6 to 64 Years) Aged Out No longer eligible b ased on patient's age to complete this topic RSV MONOCLONAL ANTIBODY Aged Out No l onger eligible based on patient's age to complete this topic Care Teams [employer] Relationship Specialty Start Date End Date No Ref-Primary, Physician PCP - General 11/16/18
--- OUTSIDE RECORDS SUMMARY | 2023-12-11 08:00 | XMS_ITS | Clinical Summary ---
[facility] Address [address] [place] [address] Care Team Providers Care Ice Guard Skating Rink Name Role Phone Found, No Pcp MD Primary Care Provider Unavailab le Source Comments You are receiving this document as you are listed as the primary care provider,follow-up provider, or the patient has been referred to you for consultation.This is in compliance with the Medicare andMedicaid EHR Incentive Program,which states Providers who transition their patient to another setting of careor provider of care or refers their patient to another provider of care shouldprovide summary care record for each transition of care or referral. [facility] Allergies Active Allergy Reactions Criticality Noted Date Comments Clindamycin Gastrointestinal 11/16/2018 See ED notes Penicillins 06/30/2002 Rash, Generalized Sulfa Antibiotics 06/30/2002 Rash, Generalized Medications No known medications Active Problems Problem Noted Date Diagnosed Date Pap smear abnormality of cervix 04/08/2019 Overview (04/08/2019): 01/2017: ASCUS, Neg HPV (at outside hospital, records reviewed) 01/2018: NIL (at outside hospital, records reviewed) Dyspepsia and disorder of function of stomach Overview (12/18/2016): Dyspepsia Viral infection 07/16/2006 Overview (12/18/2016): Viral Syndrome Excessive or frequent menstruation 07/02/2005 Overview (12/18/2016): LW Onset: 2004 ; Menorrhagia Resolved Problems Problem Noted Date Diagnosed Date Resolved Date Contraceptive management 09/08/2012 Assessment & Plan (09/08/2012 11:05 AM CDT): Taking OCP for menorrhagia and recently for contraceptive management, she denies side effects, reports working well. Immunizations Name Administration Dates Next Due 4vHPV (Gardasil) 09/02/2011,07/12/2008, 8 HepA Adult (19+ yrs) 09/02/2011 HepA Ped/Adol (1-18 yrs) 09/07/2007 HepB Ped/Adol (0-18 yrs) 06/23/2002 HepB, Unspecified Formulation 11/23/2001, 002 Influenza IIV4 (Quadrivalent) 0.5mL (04888) 02/27 MCV4 (Menactra) 09/07/2007 MMR 11/23/2001 TDAP (ADACEL) [...] 2.8 (1 standard drink = 0.6 oz p ure alcohol) Sex and Gender Information Value Date Recorded Sex Assigned at Not on file Gender Identity Not on file Sexual Orientation Not on file Last Filed Vital Signs Vital Sign Reading Time Taken Comments Blood Pressure 119/74 01/20/2020 12:48 PM CDT Pulse 74 01/20/2020 12:48 PM CDT Temperature 36.6 ??C (97.8 ??F) 01/20/2020 12:48 PM C DT Respiratory Rate 14 01/20/2020 12:48 PM CDT Oxygen Saturation 100% 01/20/2020 12:48 PM CDT Inhaled Oxygen Concentration - - Weight 72.1 kg (159 lb) 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/2019 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 Height 172.7 cm (5' 8) 03/18/2019 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 Body Mass Index 24.18 03/18/2019 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 Plan of Treatment Health Maintenance Due Date Last Done Comments Hep C Screening (Preventive Services) 1989 HIV Screening (Preventive Services) 2005 DTaP/Tdap/Td (3 - Tdap) 2017 09/07/2007, 10/15 Cervical Cancer Screening 01/29/20212017 (Completed), 09/08/2012, 09/02/2011, Additional history exists Adult Preventive Visit 03/18/2021 03/18/2019 COVID-19 Vaccine ( season) 2022 Influenza (#1) 2023 03/18/2019 Zoster/Shingles (1 of 2) 09/07/2039 HepB Completed 06/23/2002, 10/27, 10/15/2001 MCV4 Completed 09/07/2007 HPV Vaccine Completed 09/02/2011, 06/26, 09/07/2007 HepA Completed 09/02/2011, 09/07/2007 Hib Aged Out No longer eligi ble based on patient's age to complete this topic IPV (Polio) Aged Out No longer eligi ble based on patient's age to complete this topic Pneumococcal Aged Out No longer eligi ble based on patient's age to complete this topic Procedures Procedure Name Priority Date/Time Associated Diagnosis Comments ANATOMICAL PATH LIQUID BASED Routine 09/08/2012 10:53 AM CDT from Last 3 Months or Most Recently Relevant to Health Maintenance Results * Pap Smear (09/08/2012 10:53 AM CDT) 09/08/2012 10:5 3 AM CDT Narrative HP CONVERSION - 09/14/2012 5:08 PM CDT FINAL GYNECOLOGICAL CYTOLOGY REPORT Pathology #: [id number] ?Date Obtained: 09/08/2012 ? Date Received: 09/09/2012 INTERPRETATION/RESULTS: Negative for Intraepithelial Lesion or Malignancy Fungal organisms morphologically consistent with [place] species. SPECIMEN ADEQUACY: Satisfactory for Evaluation. ??Endocervical cells/transformation zone component present. Verified on 09/14/2012 ??by MINIE BACCAM, CT(ASCP) (electronic signature) CLINICAL NOTES: ?LMP: 06/16/12 LIQUID BASED PAP SMEAR SPECIMEN TYPE: ?CERVICAL WITH REFLEX TO HPV IF ASCUS PLEASE NOTE: The pap smear is a screening test designed to aid in the detection of cervical cancer and its precursor lesions. It is not a diagnostic procedure and should not be used as the sole means of detecting cervical cancer. Both false-positive and false-negative reports may occur. ? End of Report Transcriptions 06/07/2016 7:11 AM CSTNotes Recorded by Jasmin Ferrara PA-C on 09/15/2012 at 10:43 AMPlease call patient pap smear normal, STD screen for gonorrhea/chlamydia negative Jasmin Ferrara [facility] HP CONVERSION from Last 3 Months or Most Recently Relevant to Health Maintenance Care Teams Ice Guard Skating Rink Relationship Specialty Start Date End Date Found, No Pcp, [id number] [place] [address] PCP - General 05/02/15
--- OUTSIDE RECORDS SUMMARY | 2023-12-11 08:00 | XMS_ITS | Referral Summary ---
Author Organization [facility] Address [address] [place] [id number] Care Team Providers Care Desktop Administrator Name Role Phone No Ref-Primary, Physician Primary [...] Mass Index - - Plan of Treatment Not on file Care Teams Desktop Administrator Relationship Specialty Start Date End Date No Ref-Primary, Physician PCP - General 11/16/18
--- OUTSIDE RECORDS SUMMARY | 2023-12-11 08:00 | XMS_ITS | Data Portability ---
Author Organization [place] [facility], [id number] Address [address] [place] [address] [address] [place] [address] Assessment No assessment recorded. Plan of Treatment Reminders Order Date Submit Date Provider Last Modified By Organization Details Last Modified Time Details Appointments None recorded. Lab cytology report, thin prep, smear or scraping, cervical or vaginal 2020 [place] [facility], [address] [place] [address], [address], 18:08:05 Referral None recorded. Procedures None recorded. Surgeries None recorded. Imaging US, ovary, for follicular monitoring 2020 [email or web address], [address], [address], [place], [address], 16:16:18 Medication Orders Prometrium 200 mg capsule 2020 [place] [id number], [address] [place], [place], [id number], 11:45:28 Patient TargetsNo targets recorded. Patient Instructions Encounter Date Encounter Id Patient Instructions Last Modified By Organization Details Last Modified Time 03/29/2021 [id number] - Encouraged breast self-awareness and monthly breast exams. - STD screening discussed. - Mood symptoms discussed-. [email or web address] Not available 03/29/2021 11:00:53 Reason for Referral Radiologist Referral for Fem lencho infertility Hysterosalpingogram- infertility testing LMP 07/02/20 pt will have UPT in our clinic before procedure Referring Physician: Jaime Mclaughlin, MUSIC SPECIALIST, Encounter Date: 07/04/2020 Results Created Date Observation Date Name Description Value Unit Range Abnormal Flag LastModifiedBy Organization Detail LastModifiedTime 03/29/20 21 04/03/2021 IGP, APTIM A HPV, RFX 16/18 ,45 interpretati on NILM Not Available [facility] ([facility]) [address] [place], [address], 04/03/2021 18:08:05 03/29/20 21 04/03/2021 IGP, APTIM A HPV, RFX 16/18 ,45 category: NIL Not Available [facility] ([facility]) [address] [place], [address], 04/03/2021 18:08:05 03/29/20 21 04/03/2021 IGP, APTIM A HPV, RFX 16/18 ,45 adequacy: SECNI Not Available [facility] ([facility]) [address] [place], [address], 04/03/2021 18:08:05 03/29/20 21 04/03/2021 IGP, APTIM A HPV, RFX 16/18 ,45 clinician provided ICD10: Mahi gómez Not Available [facility] ([facility]) [address] [place], [address], 04/03/2021 18:08:05 03/29/20 21 04/03/2021 IGP, APTIM A HPV, RFX 16/18 ,45 performed by: Mahi gómez Not Available [facility] ([facility]) [address] [place], [address], 04/03/2021 18:08:05 03/29/20 21 04/03/2021 IGP, APTIM A HPV, RFX 16/18 ,45 note: Mahi gómez Not Available [facility] ([facility]) [address] [facility], [place], [address], 04/03/2021 18:08:05 03/29/2004/03/2021 IGP, APTIM A HPV, RFX 16/18 ,45 test methodology: Commen t Not Available [facility] ([facility]) [address] [facility], [place], [address], 04/03/2021 18:08:05 03/29/20 21 04/03/2021 IGP, APTIM A HPV, RFX 16/18 ,45 HPV aptima Negati ve negati ve Not Available [facility] ([facility]) [address] [facility], [place], [address], 04/03/2021 18:08:05 12/30/19 21 12/29/2020 US, ovary , for folli cular monit oring No observ ation record ed. [email or web address] [address], [place], [address], 01/02/2021 11:46:58 01/09/2001/08/2021 US, ovary , for folli cular monit oring No observ ation record ed. [email or web address] [address], [place], [address], 05/10/2021 16:23:56 Result Notes None recorded. Procedures Surgical History Date Name Laterality Status Provider Name and Address Organization Details Recorded Time 2020 Date of Last Pap Smear completed Rico bishop, [place] - [facility] 04/04/2021 11:39:31 2020 Intrauterine insemination ([facility]) [place] [address], [place], [address], [place] [facility] 01/10/2021 11:43:33 2020 Intrauterine insemination ([facility]) completed LOU CHRISTIE [address], [place], [address], [place] - [facility] 10/12/2020 12:10:47 2020 Intrauterine insemination ([facility]) completed APRIL AMOR [address] [facility],[address], [place], [address], [place] - [facility] 09/08/2020 11:58:19 2020 Hysterosalpingogram (HSG) ([facility]) [place] [address] [facility],[address], [place], [address], [facility] - [facility] 07/10/2020 12:20:29 2020 hysterosalpingography completed Rico Pickett null, [facility] MUSIC SPECIALIST 07/12/2020 14:06:23 2011 extraction of wisdom tooth completed Aleah Webber (TERMED) null, [place] - [facility] 07/04/2020 13:50:23 1998 tonsilectomy/adenoids completed Aleah Webber (TERMED) null, [place] - [facility] 07/04/2020 13:50:13 Imaging Results Imaging Date Name Status LastModified by Organiz ation Details LastModified Time 12/29/2020 US, ovary, for follicular monitoring completed [email or web address] [address], [place], [address], 01/02/2021 11:46:58 01/08/2021 US, ovary, for follicular monitoring completed [email or web address] [address], [place], [address], 05/10/2021 16:23:56 Procedure Notes None recorded. Medical Equipment None Reported. Allergies Allergen ID Allergen Name Allergen Category Reaction Reaction Severity Criticality Documentation Date Start Date Code Code System Note Provider Name and Address Organization Details Recorded Time [id number] Substance with sulfonami de structure and antibacte rial mechanism of action (substanc e) medicatio n Not available Not available Not available 09/07/2020 [id number] THAI bishop, [place] - [facility] 12:41:32 [id number] Medicinal product containin g penicilli n and acting as antibacte rial agent (product) medicatio n Not available Not available Not available 09/07/2020 [id number] 05 THAI bishop, [place] - MUSIC SPECIALIST 12:41:43 Medications Name Sig Start Date Stop Date Status Note LastModified by Organization Details LastModified Time Prescriptio n - New active Not Available Not Available Not Available doxycycline hyclate 100 mg capsule TAKE 1 CAPSULE BY MOUTH TWICE DAILY UNTIL ALL TAKEN. 03/29 completed Not Available Not Available Not Available etodolac 300 mg capsule 03/29 completed Not Available Not Available Not Available ofloxacin 0.3 % eye drops INT 1 GTT IN OD QID FOR 7 DAYS 07/04 completed Not Available Not Available Not Available clomiphene citrate 50 mg tablet TAKE 2 TABLETS BY MOUTH EVERY DAY FOR 5 DAYS DIRECTED 03/29 completed Not Available Not Available Not Available chorionic gonadotropi n, human 10,000 unit IM powder for solution Inject 26997 units as needed by intramusc ular route. 2021 active Not Available Not Available Not Avai lable progesteron e micronized [address] CAPSULE(2 00 MG) IN VAGINA ONCE DAILY AT BEDTIME active Not Available Not Available No t Available estradiol [address] 1 tablet (2mg) in vagina twice daily for 3 days 11/01 completed Not Available Not Available Not Available methylpredn isolone 4 mg tablets in a dose pack 03/29 completed Not Available Not Available Not Available doxycycline hyclate 100 mg tablet TAKE 1 TABLET BY MOUTH TWICE DAILY 03/29 completed Not Available Not Available Not Available Ovidrel 250 mcg/0.5 mL subcutaneou s syringe Inject 0.5 mL every day by subcutane ous route for 1 day. 11/01 completed Not Available Not Available Not Available chlorhexidi ne gluconate 0.12 % mouthwash 03/29 completed Not Available Not Available Not Available Vitamin active Not Available Not Available Not Available Vitals Date Recorded Body height Body mass index (BMI) Body weight Systolic blood pressure Diastolic blood pressure Provider Name and Address Organization Details Last Updated DateTime 03/29/2021 172.72 cm 25.5 kg/m2 34409.52 g 118 mm[Hg] 70 mm[Hg] Katelynn Ko( TERM) HENNY Lieberman MUSIC SPECIALIST 08:59:40 Social History Question Answer Notes LastModified by Organizat ion Details LastModified Time Tobacco Smoking Status Never Smoker HENNY Burnett MUSIC SPECIALIST 09/07/2020 12:42:14 What Is Your Level Of Alcohol Consumption? Occasional 1dr/mo Information not available 09/07/2020 What Is Your Level Of Caffeine Consumption? Occasional 2c/wk [email or web address] Information not available 03/29/2021 Which Illicit Or Recreational Drugs Have You Used? None [email or web address] Information not available 03/29/2021 What Is Your Occupation? [employer] Information not available 09/07/2020 History Of Domestic Violence No Information not available 09/07/2020 Spouse/Partners Name Faustino Information not available 09/07/2020 Marital Status [email or web address] Informati on not available 03/29/2021 What Is Your Relationship Status? Information not available 03/29/2021 Are You Sexually Active? Yes [email or web address] Information not available 03/29/2021 Do You Use Any Illicit Or Recreational Drugs? No [email or web address] Information not available 03/29/2021 Sex: Unknown Functional Status Question Answer Note LastModified by Organization D etails LastModified Time What is your exercise level? Moderate [email or web address] Information not available 03/29/2021 Mental Status None recorded. Family History Relationship Description Onset Age of this Age Resolved Age Notes Father Depressive disorder Mother Depressive disorder Brother Depressive disorder Sister Depressive disorder Maternal Grandmother Acute stroke Maternal Grandfather Acute stroke Maternal Grandfather Family history of Cardiovascular disease Medical History No medical history recorded. Gynecological History Statement/Question Response History of Abnormal PAP N History of Recurrent Ovarian Cysts N HPV Test Negative Date of LMP 03/22/2021 Y History of Sexually Transmitted Infectio n Y Current Control Method None Urinary Incontinence Symptoms N Date of Last Pap Smear 03/29/2021 Obstetrics History GPAL:G 0 P 0 0 0 0 Type Value Multiple Births 0 Full Term 0 Induced 0 Spontaneous 0 Premature 0 Living 0 Ectopics 0 Total 0 Past Encounters Encounter ID Performer Location Encounter Start Date Encounter Closed Date Diagnosis/Indication Diagnosis SNOMED-CT Code [id number] DHRUV FAIRBANKS MD [id number] [facility] [address], [address] [id number] 07/04/2020 13:30:04 07/04/2020 14:44:32 Unexplained infertility [id number] General acute hospital [id number] JAIME MCLAUGHLIN MD SE018_AVIQ [facility] [address],[facility] [address] [place] [address] 07/10/2020 09:48:06 07/10/2020 12:38:31 Female infertility [id number] APRIL AMOR ES005_PNFB [facility] [address], [address] [address] 08/01/2020 13:11:51 08/01/2020 14:38:21 Unexplained infertility [id number] JOHN THOMPSON MD TE058_OYMJ [facility] [address], [address] [address] 08/01/2020 13:11:03 08/03/2020 15:21:24 Fertility problem [id number] LOU CHRISTIE FJ475_LYWZ [facility] [address], [address] [address] 08/10/2020 08:21:45 08/10/2020 11:05:08 Female infertility [id number] JOHN THOMPSON MD CC846_WVLM [facility] [address], [address] [address] 08/10/2020 08:18:34 08/14/2020 17:44:57 Fertility problem [id number] APRIL AMOR US758_NKIZ [facility] [place] [address] [facility], [address] [place] [id number] 08/29/2020 08:25:24 08/29/2020 11:18:45 Female infertility [id number] CATE HAUSER MD WP124_DFCV [facility] [place] [address] [facility], [address] [place] [id number] 08/29/2020 08:23:04 08/29/2020 09:05:13 Fertility problem [id number] CATE HAUSER MD MY533_FLTR [facility] [place] [address] [facility], [address] [address] 09/07/2020 13:22:59 09/07/2020 14:16:52 Fertility problem [id number] ASHLEY WEBER, [facility] VC413_CHVS [facility] [place] [address] [facility], [address] [place] [id number] 09/07/2020 13:25:44 09/07/2020 15:18:12 Female infertility [id number] LANI KWONG [facility] [id number]_FGLF [facility] [place] [address] [facility], [address] [address] 09/08/2020 11:16:44 09/08/2020 12:04:58 Female infertility [id number] JOHN THOMPSON MD LI489_MKMA [facility] [place] [address] [facility], [address] [place] [id number] 09/27/2020 13:20:54 09/27/2020 13:52:24 Fertility problem [id number] ASHLEY WEBER, [facility] [id number]_EFNB [facility] [place] [address] [facility], [address] [place] [id number] 09/27/2020 13:22:49 09/27/2020 14:50:04 Female infertility [id number] ASHLEY WEBER, DANIEL ST775_APAS [facility] [place] [address] [facility], [address] [place] [id number] 10/04/2020 08:27:06 10/04/2020 15:22:55 Female infertility [id number] CATE HAUSER MD GO958_MLTB [facility] [place] [address] [place] [address], [address] [place] [id number] 10/04/2020 08:24:58 10/04/2020 09:52:16 Fertility problem [id number] ASHLEY WEBER, DANIEL YX995_FZNP [facility] [place] [address] [place] [address], [address] [address] 10/11/2020 08:25:48 10/11/2020 10:01:24 Female infertility [id number] CATE HAUSER MD WG157_ZICH [facility] [place] [address] [place] [address], [address] [address] 10/11/2020 08:23:04 10/11/2020 09:17:04 Fertility problem [id number] ASHLEY WEBER, [facility] [id number]_PUJQ [facility] [place] [address] [place] [address], [address] [address] 10/12/2020 10:53:17 10/12/2020 12:31:05 Artificial insemination [id number] CATE HAUSER MD VA625_OYWV [facility] [address],[place] [address] [place] [address] 11/01/2020 14:21:56 11/07/2020 13:30:29 Fertility problem [id number] ERIBERTOLeena HANDY CNM LK883_INIR [facility] [address] [place] [address],[place] [address] [place], [place] [address] 11/01/2020 14:44:50 11/02/2020 14:26:53 Fertility problem [id number] ENRIQUE CLEMENT MD PS707_EQPI [facility] [place] [address] [facility], [address] [place] [id number] 12/29/2020 13:26:57 12/29/2020 14:26:28 Primary infertility [id number] MD NICKIE LABOY004_SOUT [facility] [place] [address] [facility], [address] [place] [id number] 12/29/2020 13:25:08 12/29/2020 14:26:44 Female infertility [id number] ENRIQUE CLEMENT MD GN539_WNGB [facility] [place] [address] [facility], [address] [place] [id number] 01/08/2021 13:27:26 01/08/2021 14:03:55 Fertility problem [id number] ENRIQUE CLEMENT MD YU822_KNFG [facility] [place] [address] [facility], [address] [place] [id number] 01/08/2021 14:44:14 01/08/2021 15:55:33 Female infertility [id number] ENRIQUE CLEMENT MD DZ194_RSRI [facility] [place] [address] [facility], [address] [place] [id number] 01/09/2021 12:50:49 01/09/2021 15:05:05 [id number] JAIME MCLAUGHLIN MD GI976_LVZA [facility] [place] [address] [facility], [address] [place] [id number] 01/10/2021 10:50:08 01/10/2021 12:24:09 Female infertility [id number] Artificial insemination [id number] ERIBERTO HANDY CNM BP010_FWOF [facility] [place] [address] [facility], [address] [place] [id number] 03/29/2021 08:47:31 03/29/2021 11:05:59 Gynecologic examination [id number] Health Concerns Section Related Observation LastModified by Organization Detai ls LastModified Time None Recorded Concern Status LastModified by Organization Details LastModified Time None Recorded Advance Directives Directive None Recorded Payers Encounter Date Sequence Insurance Name Policy Number Policy Hathaway Covered Member ID Hathaway Member ID Guarantor Name 01/08/2021 1 UMR [id number] Hellen J Jovon [id number] Hellen J Jovon 01/08/2021 1 UMR [id number] Hellen J Jovon [id number] Hellen J Jovon 01/09/2021 1 UMR [id number] Hellen J Jovon [id number] Hellen J Jovon 01/10/2021 1 UMR [id number] Hellen J Jovon [id number] Hellen J Jovon 03/29/2021 1 UMR [id number] Hellen J Jovon [id number] Hellen J Jovon Notes Date Note Type Note Provider Name and Address Organization Details Recorded Time 01/08/2021 text/html HPI Notes: Cycle #: 4 Date of Cycle Day 1:___10/30/2020 Cycle Day: Cycle Medications: Clomid 50mg ____ ____ ____ Medication taken on: days 3-7 Ultrasound findings: Endometrium: 7.41 mm Left Ovarian Follicles: 17.8 mm Right Ovarian Follicles: 20.1mm, Fluid in Cul-de-sac: ____ Trigger Shot: yesIt did not arrive today so pt will get the shot tomorrow and IUI on Friday. Insemination: yes Estradiol Level: 44.7 on 07/04/2020 Semen Analysis: yes Tubal Patency Study: normal Lab Results: progesterone 10.6 Results of Cycle: [place] [address], [place], [address], [facility] - [facility] 01/08/2021 16:02:27 01/10/2021 text/html HPI Notes: here for IUI - [place] [address] [address], [place], [address], [facility] 01/10/2021 11:45:54 03/29/2021 text/html HPI Notes: KHARI Hurst GYNECOLOGIC EXAM This patient presents today for an annual gynecologic exam. Her periods are regular. The bleeding is heavy. She reports severe dysmenorrhea. She reports no changes to breasts. The patient denies vaginal itching and burning. The patient's past medical and surgical history were reviewed again today. The medication and allergy list was made current. SEXUAL HISTORY She is sexually active. The patient is not using contraception to prevent . She denies new partners since last visit. She reports feeling safe in her relationships. The patient declines STD testing today. HEALTHCARE MAINTENANCE The patient's last pap smear was unknown. I reviewed with the patient today ASC guidelines for recommended frequency of pap smear testing. The patient expressed understanding. The HPV vaccine is not indicated in this patient. Her CAGE screen was negative. The patient's depression screening PHQ-2 Score is 1 and the ABELINO-7 is 6. PDQ-9 is 7. Pt reports that most days she is coping well. She has had dep/anx for years and it runs in her family. She has never been on medication. Feels she has good support system and declines intervention. The patient has no additional complaints. ERIBERTO HANDY, CNM [address] [facility],[address], [place], [address], [facility] SPECIAL[facility] 03/29/2021 11:01:17 OBGyn Episode No OBEpisode recorded.
--- NOTE | 2023-12-11 08:15 | CRLHL7_ITS ---
For Patients: As a result of the Cures Act, medical imaging exams and procedure reports are released immediately into your electronic medical record. You may view this report before your referring provider. If you have questions, please contact your health care provider. INDICATION: First trimester scan, establish dates. COMPARISON: None. TECHNIQUE: Real-time castaneda-scale imaging of the pelvis was performed. FINDINGS: Sonographic imaging demonstrates a single living intrauterine gestation. The embryo demonstrates a regular cardiac rate measuring 183 beats per minute. The embryo`s crown-rump length measurement of 2.3 cm corresponds to a gestational age of 9 weeks 0 days with a sonographic due date of 07/15/2024. There is a normal-appearing yolk sac. There are no gross abnormalities noted within the embryo at this early state of development. The gestational sac has a normal appearance. There is no evidence of a perigestational hemorrhage. The amount of fluid within the sac appears appropriate for gestational age. The cervix is closed. The myometrium appears normal. Simple left ovarian cyst measures 3.4 x 2.7 x 2.9 cm. There are no suspicious fluid collections noted in the cul-de-sac. IMPRESSION: Single living intrauterine with sonographic gestational age 9 weeks 0 days and sonographic due date of 07/15/2024. Simple left ovarian cyst measures 3.4 cm. Dictated by Isidro Fox MD @ 12/12/2023 12:26:35 PM (Electronically Signed)
== END 2023-12-11 07:55 | disposition home or self-care (01) ==
LOC: US 07:55
PROVIDERS: Visit Provider Advanced Practice Midwife
DX: Z34.91 Encounter for supervision of normal pregnancy, unspecified, first trimester (principal); O34.81 Maternal care for other abnormalities of pelvic organs, first trimester; N83.292 Other ovarian cyst, left side; Z3A.09 9 weeks gestation of pregnancy
CPT/HCPCS: 76817; 86592; 86703; 86704; 86706; 86762; 86787; 86803; 86850; 86900; 86901; 87086; 87340

== ENCOUNTER 2023-12-11 09:00 | Outpatient (CLI) | payer OTHER, SELFPAY ==
--- OUTSIDE RECORDS SUMMARY | 2023-12-11 09:03 | XMS_ITS | Clinical Summary ---
Author Organization [facility] Address [address] [place] [address] Care Team Providers Care Manager Flight Operations Name Role Phone Found, No Pcp MD [...] for each transition of care or referral. Storage Made Easy Allergies Active Allergy Reactions Criticality Noted Date [...] Formulation 11/23/2001, 002 Influenza IIV4 (Quadrivalent) 0.5mL (87885) 02/27 MCV4 (Menactra) 09/07/2007 MMR 11/23/2001 TDAP [...] 72.1 kg (159 lb) 05/20/2019 4:12 PM WRAPPER SIZER Height 172.7 cm (5' 8) 03/18/2019 3:47 PM WRAPPER SIZER Body Mass Index 24.18 03/18/2019 3:47 PM WRAPPER SIZER Plan of Treatment Health Maintenance Due Date [...] CDT FINAL GYNECOLOGICAL CYTOLOGY REPORT Pathology #: [id number] ?Date Obtained: 09/08/2012 ? Date Received: 09/09/2012 [...] Recently Relevant to Health Maintenance Care Teams Manager Flight Operations Relationship Specialty Start Date End Date Found, No Pcp, [address] [place] [address] PCP - General 05/02/15
--- OUTSIDE RECORDS SUMMARY | 2023-12-11 09:03 | XMS_ITS | Clinical Summary ---
Author Organization [facility] Address [address] [place] [address] Care Team Providers Care University Teacher Name Role Phone No Ref-Primary, Physician Primary [...] age to complete this topic Care Teams University Teacher Relationship Specialty Start Date End Date No Ref-Primary, Physician PCP - General 11/16/18
--- OUTSIDE RECORDS SUMMARY | 2023-12-11 09:03 | XMS_ITS | Referral Summary ---
Author Organization [facility] Address [address] [place] [address] Care Team Providers Care Health Education Specialist Name Role Phone No Ref-Primary, Physician Primary [...] of Treatment Not on file Care Teams Health Education Specialist Relationship Specialty Start Date End Date No Ref-Primary, Physician PCP - General 11/16/18
== END 2023-12-11 09:01 | disposition home or self-care (01) ==
PROVIDERS: Visit Provider Advanced Practice Midwife
DX: Z34.91 Encounter for supervision of normal pregnancy, unspecified, first trimester (principal); Z3A.09 9 weeks gestation of pregnancy
CPT/HCPCS: 86592; 86703; 86704; 86706; 86762; 86787; 86803; 86850; 86900; 86901; 87086; 87340

== ENCOUNTER 2024-01-29 15:41 | Outpatient (CLI) | payer OTHER, SELFPAY ==
--- OUTSIDE RECORDS SUMMARY | 2024-01-29 15:43 | XMS_ITS | Clinical Summary ---
[facility] Address [address] [place] [address] Care Team Providers Care Supervisor Home Restoration Service Name Role Phone Found, No Pcp MD [...] for each transition of care or referral. Room Choice Allergies Active Allergy Reactions Criticality Noted Date [...] Formulation 11/23/2001, 002 Influenza IIV4 (Quadrivalent) 0.5mL (92951) 02/27 MCV4 (Menactra) 09/07/2007 MMR 11/23/2001 TDAP [...] 72.1 kg (159 lb) 05/20/2019 4:12 PM DEEP FAT COOK FRY Height 172.7 cm (5' 8) 03/18/2019 3:47 PM DEEP FAT COOK FRY Body Mass Index 24.18 03/18/2019 3:47 PM DEEP FAT COOK FRY Plan of Treatment Health Maintenance Due Date Last Done Comments Hep C Screening (Preventive Services) 1989 HIV Screening (Preventive Services) 2005 DTaP/Tdap/Td (3 - Tdap) 2017 09/07/2007, 10/15 Cervical Cancer Screening 01/29/20212017 (Completed), 09/08/2012, 09/02/2011, Additional history exists Adult Preventive Visit 03/18/2021 03/18/2019 COVID-19 Vaccine ( season) 2023 Influenza (#1) 2023 03/18/2019 Zoster/Shingles (1 of 2) 09/07/2039 HepB Completed 06/23/2002, 10/27, 10/15/2001 MCV4 Completed 09/07/2007 HPV Vaccine Completed 09/02/2011, 06/26, 09/07/2007 HepA Completed 09/02/2011, 09/07/2007 Hib Aged Out No longer eligi ble based on patient's age to complete this topic IPV (Polio) Aged Out No longer eligi ble based on patient's age to complete this topic RSV Aged Out No longer eligi ble based [...] CDT FINAL GYNECOLOGICAL CYTOLOGY REPORT Pathology #: [id number] ?Date Obtained: 09/08/2012 ? Date Received: 09/09/2012 [...] Recently Relevant to Health Maintenance Care Teams Supervisor Home Restoration Service Relationship Specialty Start Date End Date Found, No Pcp, [address] [place] [address] PCP - General 05/02/15
--- OUTSIDE RECORDS SUMMARY | 2024-01-29 15:43 | XMS_ITS | Clinical Summary ---
Author Organization [facility] Address [address] [place] [address] Care Team Providers Care Kapok And Cotton Machine Operator Name Role Phone No Ref-Primary, Physician Primary [...] 09/07/2007, 10/15/2001 YEARLY PREVENTIVE VISIT 03/18/2020 03/18/2019 PHQ-2 (once per calendar year) 2023 COVID-19 Vaccine (2023-2 5 season) 2023 INFLUENZA VACCINE (#1) 2023 , 03/18/2019 HEPATITIS B IMMUNIZATION Completed 003, 11/23/2001, 10/15/2001 MENINGITIS IMMUNIZATION Completed 09/07/19 08, 09/07/2007 HPV IMMUNIZATION Completed 09/02/2011, 07/12/2008, 09/07/2007 Pneumococcal Vaccine: Pediatrics (0 to 5 Years) and At-Risk Patients (6 to 64 Years) Aged Out No longer eligible b ased on patient's age to complete this topic RSV MONOCLONAL ANTIBODY Aged Out No l onger eligible based on patient's age to complete this topic Care Teams Kapok And Cotton Machine Operator Relationship Specialty Start Date End Date No Ref-Primary, Physician PCP - General 11/16/18
--- OUTSIDE RECORDS SUMMARY | 2024-01-29 15:43 | XMS_ITS | Referral Summary ---
Author Organization [facility] Address [address] [place] [address] Care Team Providers Care Commercial Fisherman Name Role Phone No Ref-Primary, Physician Primary [...] of Treatment Not on file Care Teams Commercial Fisherman Relationship Specialty Start Date End Date No Ref-Primary, Physician PCP - General 11/16/18
== END 2024-01-29 15:42 | disposition home or self-care (01) ==
LOC: FRMREF 15:42
PROVIDERS: Visit Provider Registered Nurse
DX: Z34.92 Encounter for supervision of normal pregnancy, unspecified, second trimester (principal); Z3A.16 16 weeks gestation of pregnancy; R13.10 Dysphagia, unspecified
CPT/HCPCS: 84443

== ENCOUNTER 2024-02-26 11:57 | Outpatient (CLI) | payer OTHER, SELFPAY ==
--- OUTSIDE RECORDS SUMMARY | 2024-02-26 11:59 | XMS_ITS | Clinical Summary ---
Author Organization [facility] Address [address] [place] [address] Care Team Providers Care Marine Farmer Name Role Phone No Ref-Primary, Physician Primary Care Provider Allergies Active Allergy Reactions Criticality Noted Date Comments Penicillins 06/30/2002 PN: LW Reaction: Rash, Generalized Sulfa Antibiotics 06/30/2002 PN: LW Reaction: Rash, Generalized Social History Tobacco Use Types Packs/Day Years Used Date Smoking Tobacco: Never Assessed Adolescent Education Answer Date Record ed Getting School Help Needed Not on file 02/02 Comments No Sex and Gender Information Value Date Recorded Sex Assigned at Not on file Legal Sex Female 3:16 AM FIRST BEATER Gender Identity Not on file Sexual Orientation [...] (once per calendar year) 2023 COVID-19 Vaccine (1 - 2023-2 5 season) 2023 INFLUENZA VACCINE (#1) 2023 2, 03/18/2019 RSV VACCINE (1 - 1-dose 75+ series) 2064 HEPATITIS B IMMUNIZATION Completed 003, 11/23/2001, 10/15/2001 [...] on patient's age to complete this topic Insurance [facility] CHOICE Care Teams Marine Farmer Relationship Specialty Start Date End Date No Ref-Primary, Physician PCP - General 11/16/18
--- OUTSIDE RECORDS SUMMARY | 2024-02-26 11:59 | XMS_ITS | Data Portability ---
Author Organization [place] [facility]ABILITY [facility]AMIN[facility], [id number] Address [address] [place] [address] [address] [place] [address] Assessment No assessment recorded. Plan of Treatment Reminders Order Date Submit Date Provider Last Modified By Organization Details Last Modified Time Details Appointments None recorded. Lab cytology report, thin prep, smear or scraping, cervical or vaginal 2020 [place] [facility], [address], [place], [address], 18:08:05 Referral None recorded. Procedures None recorded. Surgeries None recorded. Imaging US, ovary, for follicular monitoring 2020 [email or web address] [id number] [facility], [address], [address], [place], [address], 16:16:18 Medication Orders Prometrium 200 mg capsule 2020 [place] [id number], [address] [place], [place], [id number], 11:45:28 Patient TargetsNo targets recorded. Patient Instructions Encounter Date Encounter Id Patient Instructions Last Modified By Organization Details Last Modified Time 03/29/2021 [id number] - Encouraged breast self-awareness and monthly breast exams. - STD screening discussed. - Mood symptoms discussed-. [email or web address] Not available 03/29/2021 11:00:53 Reason for Referral None Reported. Results Created Date Observation Date Name Description Value Unit Range Abnormal Flag Note LastModifiedBy Organization Detail LastModifiedTime 03/29/20 21 04/03/2021 IGP, APTIM A HPV, RFX 16/18 ,45 interpretati on NILM NEGAT ARIS FOR INTRA EPITH ELIAL LESIO N OR MALIG YEIMI . Not Available [facility] ([facility]) [address] [facility], [place], [address], 04/03/2021 18:08:05 03/29/20 21 04/03/2021 IGP, APTIM A HPV, RFX 16/18 ,45 category: NIL Negat aris for Intra epith elial Lesio n Not Available [facility] ([facility]) [address] [facility], [place], [address], 04/03/2021 18:08:05 03/29/20 21 04/03/2021 IGP, APTIM A HPV, RFX 16/18 ,45 adequacy: SECNI Satis facto ry for evalu ation . No endoc ervic al compo nent is ident ified . Not Available [facility] ([facility]) [address] [facility], [place], [address], 04/03/2021 18:08:05 03/29/20 21 04/03/2021 IGP, APTIM A HPV, RFX 16/18 ,45 clinician provided ICD10: Mahi gómez Z01.4 19 Not Available [facility] ([facility]) [address] [place], [address], 04/03/2021 18:08:05 03/29/20 21 04/03/2021 IGP, APTIM A HPV, RFX 16/18 ,45 performed by: Lisa Gomez sa (ASCP ) Not Available [facility] ([facility]) [address] [place], [address], 04/03/2021 18:08:05 03/29/20 21 04/03/2021 IGP, APTIM A HPV, RFX 16/18 ,45 note: Commen t The Pap smear is a scree alban test desig chelsi to aid in the detec tion of lj ligna nt and malig nant condi tions of the uteri ne cervi x. It is not a diagn ostic proce dure and shoul d not be used as the sole means of detec ting cervi yonatan cance r. Both false -posi tive and false -nega tive repor ts do occur . Not Available [facility] ([facility]) [address] [facility], [place], [address], 04/03/2021 18:08:05 03/29/20 21 04/03/2021 IGP, APTIM A HPV, RFX 16/18 ,45 test methodology: Mahi t This liqui d based ThinP rep(R ) pap test was scree chelsi with the use of an image guide jorge grant. Not Available [facility] ([facility]) [address] [facility], [place], [address], 04/03/2021 18:08:05 03/29/20 21 04/03/2021 IGP, APTIM A HPV, RFX 16/18 ,45 HPV aptima Negati ve negati ve This nucle ic acid ampli ficat ion test detec ts fourt een high- risk HPV types (16,1 8,31, 33,35 ,39,4 5,51, 52,56 ,58,5 9,66, 68) witho ut diffe renti ation . Not Available [facility] ([facility]) [address] [facility], [place], [address], 04/03/2021 18:08:05 12/30/19 21 12/29/2020 US, ovary , for folli cular monit oring No observ ation record ed. [email or web address] [address], [place], [address], 01/02/2021 11:46:58 01/09/20 21 01/08/2021 US, ovary , for folli cular monit oring No observ ation record ed. [email or web address] [address], [place], [address], 05/10/2021 16:23:56 Result Notes None recorded. Procedures Surgical History Date Name Laterality Status Provider Name and Address Organization Details Recorded Time 2020 Date of Last Pap [facility]ear [facility] 04/04/2021 11:39:31 2020 Intrauterine insemination ([facility]) [place] [address], [place], [address], [facility] DISABILITY EXAMINER 01/10/2021 11:43:33 2020 Intrauterine insemination ([facility]) completed ASHLEY WEBER, DANIEL [address], [place], [address], [facility] DISABILITY EXAMINER 10/12/2020 12:10:47 2020 Intrauterine insemination ([facility]) completed [facility] [address] [facility],[address], [place], [address], [facility] DISABILITY EXAMINER 09/08/2020 11:58:19 2020 Hysterosalpingogram (HSG) ([facility]) [place] [address] [facility],[address], [place], [address], [facility] DISABILITY EXAMINER 07/10/2020 12:20:29 2020 hysterosalpingography completed Rico Pickett [facility] DISABILITY EXAMINER 07/12/2020 14:06:23 2011 extraction of wisdom tooth completed Aleah Webber (TERMED) [place] [facility] DISABILITY EXAMINER 07/04/2020 13:50:23 1998 tonsilectomy/adenoids completed Aleah Webber (TERMED) [facility] DISABILITY EXAMINER 07/04/2020 13:50:13 Imaging Results Imaging Date Name Status LastModified by [facility] Details LastModified Time 12/29/2020 US, ovary, for follicular monitoring completed [email or web address] [address], [place], [address], 01/02/2021 11:46:58 01/08/2021 US, ovary, for follicular monitoring completed [email or web address] [address], [place], [address], 05/10/2021 16:23:56 Procedure Notes None recorded. Medical Equipment None Reported. Allergies Allergen ID Allergen Name Allergen Category Reaction Reaction Severity Criticality Documentation Date Start Date Code Code System Note Provider Name and Address Organization Details Recorded Time [id number] Substance with sulfonami de structure and antibacte rial mechanism of action (substanc e) medicatio n Not available Not available Not available 09/07/2020 98904 8003 HENNY Marino DISABILITY EXAMINER 12:41:32 19740605 Medicinal product containin g penicilli n and acting as antibacte rial agent (product) medicatio n Not available Not available Not available 09/07/2020 85175 05 HENNY Marino DISABILITY EXAMINER 12:41:43 Medications Name Sig Start Date Stop [...] 10,000 unit IM powder for solution Inject 42290 units as needed by intramusc ular route. [...] Updated DateTime 03/29/2021 172.72 cm 25.5 kg/m2 62505.52 g 118 mm[Hg] 70 mm[Hg] Katelynn Ko( TERM) HENNY Lieberman DISABILITY EXAMINER 08:59:40 Social History Question Answer Notes LastModified by Organizat ion Details LastModified Time Tobacco Smoking Status Never Smoker HENNY Burnett DISABILITY EXAMINER 09/07/2020 12:42:14 What Is Your Level Of Alcohol Consumption? Occasional 1dr/mo Information not available 09/07/2020 What Is Your Level Of Caffeine Consumption? Occasional 2c/wk [email or web address] Information not available 03/29/2021 Which Illicit Or Recreational Drugs Have You Used? None [email or web address] Information not available 03/29/2021 What Is Your Occupation? [employer] Information not available 09/07/2020 History Of Domestic Violence No Information not available 09/07/2020 Spouse/Partners Name Faustino Information not available 09/07/2020 Marital Status [email or web address] Informati on not available 03/29/2021 What Is Your Relationship Status? [email or web address] Information not available 03/29/2021 Are You Sexually Active? Yes Information not available 03/29/2021 Do You Use Any Illicit Or Recreational Drugs? No [email or web address] Information not available 03/29/2021 Sex: Unknown Functional Status Question Answer Note LastModified by Organization D etails LastModified Time What is your exercise level? Moderate [email or web address] Information not available 03/29/2021 Mental Status None recorded. Family History Relationship Description Onset Age of this Age Resolved Age Notes LastModified by Organization Details LastModified Time Father Depressive disorder [email or web address] Not available 2020 13:51:19 Mother Depressive disorder [email or web address] Not available 2020 13:51:19 Brother Depressive disorder [email or web address] Not available 2020 13:51:19 Sister Depressive disorder [email or web address] Not available 2020 13:51:19 Maternal Grandmother Acute stroke [email or web address] Not available 03/29/2021 08:54:08 Maternal Grandfather Acute stroke [email or web address] Not available 03/29/2021 08:54:08 Maternal Grandfather Family history of Cardiovascul ar disease [email or web address] Not available 03/29 08:54:08 Medical History No medical history recorded. Gynecological [...] Encounter Closed Date Diagnosis/Indication Diagnosis SNOMED-CT Code Diagnosis ICD10 Code [id number] DHRUV FAIRBANKS MD [id number] [facility]_BU [address] ,[address] [facility] HENNY Juárez [address] 07/04/2020 13:30:04 07/04/2020 14:44:32 Unexplained infertility 218203077 N97.9 Reproducti care management [id number] Z31.9 [id number] JAIME MCLAUGHLIN MD [id number]_RDP [facility]_ED KATIA [address] [place] [address],[address] [place] [address] 07/10/2020 09:48:06 07/10/2020 12:38:31 Female infertility [id number] N97.9 [id number] LANI KWONG [facility] [id number] [facility] [address] [facility] [address] ,[address] [place] [address] 08/01/2020 13:11:51 08/01/2020 14:38:21 Unexplained infertility 546356711 N97.8 [id number] JOHN THOMPSON MD JA713_YBO [facility] [address] [facility] [address] ,[address] [place] [address] 08/01/2020 13:11:03 08/03/2020 15:21:24 Fertility problem 58245538 N97.[id number] [facility] [address] [facility] RORYCARMEL MOREJONHONOR[facility]D ,[address] [place] [address] 08/10/2020 08:21:45 08/10/2020 11:05:08 Female infertility 9928030 N97.9 [id number] JOHN THOMPSON MD HT328_KLR [facility] [address] [facility] RORYCARMEL FLORESD ,[address] [place] [address] 08/10/2020 08:18:34 08/14/2020 17:44:57 Fertility problem 10743935 N97.9 [id number] LANI KWONG [facility] FO157_WPB [facility] [address] [facility] R[address]CARM[address] MOREJONVARD ,[address] [place] [address] 08/29/2020 08:25:24 08/29/2020 11:18:45 Female infertility 0425170 N97.9 [id number] CATE HAUSER MD BS562_DKO [facility] [address] [facility] ,[address] [place] [address] 08/29/2020 08:23:04 08/29/2020 09:05:13 Fertility problem 82104761 N97.9 [id number] CATE HAUSER MD [id number]_JSA [facility] [address] [facility] [address] ,[address] [place] [address] 09/07/2020 13:22:59 09/07/2020 14:16:52 Fertility problem 40514754 N97.9 [id number] ASHLEY WEBER, [facility]SL352_IUJ DALE[address] [place] ,[address] [place] [address] 09/07/2020 13:25:44 09/07/2020 15:18:12 Female infertility [id number] N97.9 [id number] LANI KWONG, [facility]004_SOU [facility] [address] [facility] ,[address] [place] [address] 09/08/2020 11:16:44 09/08/2020 12:04:58 Female infertility 1217552 N97.9 [id number] JOHN THOMPSON MD FU299_BEP [address] DARLEENHONORHE[facility] DE[facility] VALLEY MED[facility] CENTERJorge ,[address] [place] [address] 09/27/2020 13:20:54 09/27/2020 13:52:24 Fertility problem 49987188 N97.9 [id number] ASHLEY WEBER, [facility]QB901_WUA [address] DARLEENHONORHE[facility]D ,[address] [place] [address] 09/27/2020 13:22:49 09/27/2020 14:50:04 Female infertility 9931168 N97.9 [id number] ASHLEY WEBER, [facility]ICJF614_CTT [address] DARLEENHONORHE[facility]D ,[address] [place] [address] 10/04/2020 08:27:06 10/04/2020 15:22:55 Female infertility 7127035 N97.9 [id number] CATE HAUSER MD WQ879_KOS TH[place]_[address] ,[address] [place] [address] 10/04/2020 08:24:58 10/04/2020 09:52:16 Fertility problem 47693022 N97.9 [id number] ASHLEY WEBER, [facility]ICVA100_DSV TH[place]_[address] ,[address] [facility] [place] [address] 10/11/2020 08:25:48 10/11/2020 10:01:24 Female infertility 5960989 N97.9 [id number] CATE HAUSER MD SE633_MWN [address] ,[address] [facility] [place] [address] 10/11/2020 08:23:04 10/11/2020 09:17:04 Fertility problem 61370016 N97.9 [id number] ASHLEY WEBER, [facility] EK039_JTA [address] ,[address] [facility] [place] [address] 10/12/2020 10:53:17 10/12/2020 12:31:05 Artificial insemination 88190754 Z31.83 [id number] MD CARLEE BAILON_SOU [facility]_ED KATIA [address] [address] 11/01/2020 14:21:56 11/07/2020 13:30:29 Fertility problem [id number] N97.9 [id number] ERIBERTO HANDY CNM JB767_LLF [place]_ED KATIA [address] [address] 11/01/2020 14:44:50 11/02/2020 14:26:53 Fertility problem 94358136 N97.9 [id number] ENRIQUE CLEMENT MD OX846_HMA [address]ALE[address]ULEHONORHEALTH DEER VALLEY MEDICAL CENTERJorge ,[address] [place] [address] 12/29/2020 13:26:57 12/29/2020 14:26:28 Primary infertility [id number] N97.9 [id number] ENRIQUE CLEMENT MD ZR702_GVB [facility] [address] [facility] RORYCARMEL MOREJONHONORHEALTH DEER VALLEY MED[facility] CENTERJorge ,[address] [place] [address] 12/29/2020 13:25:08 12/29/2020 14:26:44 Female infertility 7482396 N97.9 [id number] ENRIQUE CLEMENT MD AK496_OTL [facility] [address] [facility]VAL[facility] DARLEENHON[facility] CENTERJorge ,[address] [place] [address] 01/08/2021 13:27:26 01/08/2021 14:03:55 Fertility problem 24062117 N97.0 [id number] ENRIQUE CLEMENT MD YT005_ZSK [facility] [address] [facility] RORYCARMEL MOREJONHONORHEALTH DEER VALLEY [facility] CENTERJorge ,[address] [place] [address] 01/08/2021 14:44:14 01/08/2021 15:55:33 Female infertility 9718623 N97.9 [id number] ENRIQUE CLEMENT MD QH389_CDE [facility] [address] [facility]VAL[facility] DARLEENHON[facility] CENTERJorge ,[address] [place] [address] 01/09/2021 12:50:49 01/09/2021 15:05:05 [id number] JAIME MCLAUGHLIN MD YK179_ADU [facility] [address] [facility]VAL[facility] DARLEENHON[facility] CENTERJorge ,[address] [place] [address] 01/10/2021 10:50:08 01/10/2021 12:24:09 Female infertility 9264553 N97.9 Artificial insemination 58672896 Z31.83 [id number] ERIBERTO HANDY, [facility] RP021_ULF [facility] [address] [facility]LEENH[facility]ENTERJorge ,[address] [place] [address] 03/29/2021 08:47:31 03/29/2021 11:05:59 Gynecologic examination 83950295 Z01.419 Health Concerns Section Related Observation LastModified by Organization Detai ls LastModified Time None Recorded Concern Status LastModified by Organization Details LastModified Time None Recorded Advance Directives Directive None Recorded Payers Encounter Date Sequence Insurance Name Policy Number Policy Hathaway Covered Member ID Hathaway Member ID Guarantor Name 01/08/2021 1 UMR [id number] Hellen J Jovon [id number] Hellen J Jovon 01/08/2021 1 UMR [id number] Hellen J Jovon [id number] Hellen J Jovon 01/09/2021 1 UMR [id number] Hellen J Jovon [id number] Hellen J Jovon 01/10/2021 1 UMR [id number] Hellen J Jovon [id number] Hellen J Jovon 03/29/2021 1 UMR [id number] Hellen J Jovon [id number] Hellen J Jovon Notes Date Note Type [...] 10.6 Results of Cycle: [place] [address] [facility],[address], [place], [address], [facility] - [facility] DISABILITY EXAMINER 01/08/2021 16:02:27 01/10/2021 text/html HPI Notes: here for IUI - [place] [address] [facility],[address], [place], [address], [facility] - [facility] DISABILITY EXAMINER 01/10/2021 11:45:54 03/29/2021 text/html HPI Notes: KHARI [...] The patient has no additional complaints. ERIBERTO HANDY CNM [address] [facility],[address], [place], [address], [facility] - DISABILITY EXAMINER 03/29/2021 11:01:17 OBGyn Episode No OBEpisode recorded.
--- OUTSIDE RECORDS SUMMARY | 2024-02-26 11:59 | XMS_ITS | Referral Summary ---
Author Organization [facility] Address [address] [place] [address] Care Team Providers Care Narcotics And/Or Vice Detective Name Role Phone No Ref-Primary, Physician Primary [...] on file Legal Sex Female 3:16 AM HOSIERY KNITTER Gender Identity Not on file Sexual Orientation [...] - Plan of Treatment Not on file Insurance [facility] CHOICE Care Teams Narcotics And/Or Vice Detective Relationship Specialty Start Date End Date No Ref-Primary, Physician PCP - General 11/16/18
--- OUTSIDE RECORDS SUMMARY | 2024-02-26 11:59 | XMS_ITS | Clinical Summary ---
[facility] Organization [facility] Address [address] [place] [address] Care Team Providers Care Word Processor Name Role Phone Found, No Pcp MD [...] for each transition of care or referral. 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 Date Received: 09/09/2012 [...] Recently Relevant to Health Maintenance Care Teams Word Processor Relationship Specialty Start Date End Date Found, No Pcp, [address] [place] [address] PCP - General 05/02/15
--- NOTE | 2024-02-26 12:15 | CRLHL7_ITS ---
For Patients: As a result of the Century Cures Act, medical imaging exams and procedure reports are released immediately into your electronic medical record. You may view this report before your referring provider. If you have questions, please contact your health care provider. INDICATION: 2nd trimester anatomical survey. TECHNIQUE: Ultrasound OB pelvis transabdominal. Real-time castaneda-scale imaging of the fetus was performed as well as color Doppler and spectral Doppler analysis of the umbilical artery. COMPARISON: None FINDINGS: Intrauterine gestation: Single. heart rate: Regular, 157 bpm. presentation: Transverse, with head to maternal left. Placenta: Posterior, without previa. Cervix: Closed, measuring up 6.8 cm Amniotic fluid: 4.4 cm deepest pocket. Biometry: Biparietal diameter: 4.6 cm, compatible with 20 weeks 0 days. Head circumference: 17.5 cm, compatible with 20 weeks 0 days. Abdominal circumference: 15.2 cm, compatible with 20 weeks 3 days. Femoral length: 3.3 cm, compatible with 20 weeks 2 days. EFW: 347.2 gm, 56.5 %. JOMAR by US: 07/11/2024 Anatomical Survey: 4 chamber heart: Visualized. Stomach: Visualized. Kidneys: Visualized. Bladder: Visualized. Spine: Limited views of the cervical spine on transverse view. No abnormality of the thoracic or lumbar spine. Sacrum: Visualized. 4 extremities: Visualized. Cord insertion: Visualized. 3V cord: Visualized. Face: Visualized. Nose: Visualized. Lips: Visualized. Cerebellum: Mildly prominent for age measuring 2.18 cm, although this may be within normal limits. Cisterna Magna: Visualized. Lateral ventricles: Visualized. IMPRESSION: 1. Single viable intrauterine with biometric measurements corresponding to 20 weeks 4 days with JOMAR by ultrasound of 07/11/2024. This is concordant with clinical dates. Estimated weight is within the 56.5 percentile. 2. Limited views of the cervical spine on transverse view and mildly prominent cerebellum for age, although this may be within normal limits. Recommended short interval follow-up anatomy scan to further evaluate these regions. Otherwise no anatomical abnormalities are appreciated. Dictated by Nikki Robison MD @ 02/27/2024 10:59:26 AM (Electronically Signed)
== END 2024-02-26 11:58 | disposition home or self-care (01) ==
LOC: US 11:57
PROVIDERS: Visit Provider Registered Nurse
DX: Z34.92 Encounter for supervision of normal pregnancy, unspecified, second trimester (principal); Z3A.20 20 weeks gestation of pregnancy
CPT/HCPCS: 76805

== ENCOUNTER 2024-03-18 11:02 | Outpatient (CLI) | payer OTHER, SELFPAY ==
--- OUTSIDE RECORDS SUMMARY | 2024-03-18 11:05 | XMS_ITS | Clinical Summary ---
[facility] Address [address] [place] [address] Care Team Providers Care Senior Project Manager Engineering Name Role Phone Found, No Pcp MD [...] for each transition of care or referral. 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 SPECIMEN ADEQUACY: Satisfactory for Evaluation. Endocervical cells/transformation zone component present. Verified on 09/14/[address](ASCP) (electronic signature) CLINICAL NOTES: LMP: 06/16/12 LIQUID BASED PAP SMEAR SPECIMEN TYPE: CERVICAL WITH REFLEX TO HPV IF ASCUS PLEASE NOTE: The pap smear is a screening test designed to aid in the detection of cervical cancer and its precursor lesions. It is not a diagnostic procedure and should not be used as the sole means of detecting cervical cancer. Both false-positive and false-negative reports may occur. End of Report Transcriptions 06/07/2016 7:11 AM CSTNotes Recorded by Jasmin Ferrara PA-C on 09/15/2012 at 10:43 AMPlease call patient pap smear normal, STD screen for gonorrhea/chlamydia negative Jasmin Ferrara LAB_1 HP CONVERSION from Last 3 Months or Most Recently Relevant to Health Maintenance Care Teams Senior Project Manager Engineering Relationship Specialty Start Date End Date Found, No Pcp, [address] [place] [address] PCP - General 05/02/15
--- OUTSIDE RECORDS SUMMARY | 2024-03-18 11:05 | XMS_ITS | Referral Summary ---
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 Gender Identity Not on file Sexual Orientation Not on file Last Filed Vital Signs Vital Sign Reading Time Taken Comments Blood Pressure 127/90 11/16/2018 3:40 AM CDT Pulse 70 11/16/2018 3:40 AM CDT Temperature 36.8 C (98.2 F) 11/16/2018 3:40 AM CDT Respiratory Rate 18 11/16/2018 3:40 AM CDT Oxygen Saturation 99% 11/16/2018 3:40 AM CDT Inhaled Oxygen Concentration - - Weight - - Height - - Body Mass Index - - Plan of Treatment Not on file Insurance [facility] CHOICE Care Teams Vice President Of Sales Relationship Specialty Start Date End Date No Ref-Primary, Physician PCP - General 11/16/18
--- OUTSIDE RECORDS SUMMARY | 2024-03-18 11:05 | XMS_ITS | Clinical Summary ---
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
--- NOTE | 2024-03-18 11:15 | CRLHL7_ITS ---
For Patients: As a result of the Century Cures Act, medical imaging exams and procedure reports are released immediately into your electronic medical record. You may view this report before your referring provider. If you have questions, please contact your health care provider. INDICATION: f/u suboptimal views of spine and re-evaluate cerebellum COMPARISON: 02/26/2024 TECHNIQUE: Real time castaneda scale imaging of the fetus was performed. FINDINGS: Sonographic imaging demonstrates a single living intrauterine gestation. Fetus demonstrates a regular cardiac rate of 161 beats per minute. Fetus has a vertex position. The placenta lies posteriorly. Amniotic fluid volume appears normal. Single deepest vertical pocket: 5.3 cm. The composite ultrasound gestational age is calculated at 23 weeks 6 days with an estimated sonographic due date of 07/09/2024. The estimated weight is 593 grams which lies at the 56th %. The following biometric measurements were obtained: Biparietal diameter: 5.4 cm/22 weeks 4 days 24th% Head circumference: 20.9 cm/23 weeks 0 days 27th% Abdominal circumference: 18.4 cm/23 weeks 1 day 43rd% Femur length: 4.3 cm/24 weeks 0 days 65th% The HC/AC ratio measures: 1.14 range (1.05-1.21) Normal bladder, kidneys, stomach, spine, RVOT, LVOT and four-chamber heart. The trans cerebellar distance again is somewhat prominent measuring up to 2.8 cm, 26 weeks 3 days. IMPRESSION: Mild prominence of the cerebellum is again noted which is of doubtful significance. Normal spine. Sonographic gestational age 23 weeks 6 days and a sonographic due date of 07/09/2024. Sonographic age 5 days ahead of the clinical age. Estimated weight 56th percentile. Abdominal circumference 43rd percentile. Dictated by Isidro Fox MD @ 03/19/2024 12:07:39 PM (Electronically Signed)
== END 2024-03-18 11:03 | disposition home or self-care (01) ==
PROVIDERS: Visit Provider Advanced Practice Midwife
DX: O35.FXX0 Maternal care for other (suspected) fetal abnormality and damage, fetal musculoskeletal anomalies of trunk, not applicable or unspecified (principal); O35.8XX0 Maternal care for other (suspected) fetal abnormality and damage, not applicable or unspecified; Z3A.23 23 weeks gestation of pregnancy
CPT/HCPCS: 76816

== ENCOUNTER 2024-05-06 08:04 | Outpatient (CLI) | payer OTHER, SELFPAY | END 2024-05-06 08:05 | disposition home or self-care (01) | LOC: NFLDREF 05-17 14:02 | PROVIDERS: Visit Provider Registered Nurse | DX: Z34.93 Encounter for supervision of normal pregnancy, unspecified, third trimester (principal); Z3A.30 30 weeks gestation of pregnancy | CPT/HCPCS: 82728; 86592 ==

== ENCOUNTER 2024-06-23 11:43 | Outpatient (CLI) | payer OTHER, SELFPAY | END 2024-06-23 11:44 | disposition home or self-care (01) | LOC: NFLDREF 06-25 10:19 | PROVIDERS: Visit Provider Advanced Practice Midwife | DX: Z34.83 Encounter for supervision of other normal pregnancy, third trimester (principal) | CPT/HCPCS: 87081; 87653 ==

== ENCOUNTER 2024-06-28 04:06 | Inpatient (IN) | payer OTHER, SELFPAY ==
[2024-06-28] VITALS (23 sets, daily range): BP systolic 127–144; BP diastolic 80–98; PULSE 72–96; RESP 16–18; TEMP 36.4–37.3; O2SAT 96–100; BMI 28.8
[2024-06-28] MEDS: fentaNYL 100 MCG/2 ML inj IVP (04:01)
--- NOTE | 2024-06-28 04:23 | W.PM.LDBA ---
Subjective History of Present Illness Narrative: Hellen is a 33 year old G2 now P2 being admitted to Labor and Delivery for spontaneous labor with an unplanned home being transferred from home by ambulance. At time of admission, the placenta was not yet delivered. She is reporting a lot of discomfort and pressure. Baby was skin to skin with her. Paramedics reported that her blood pressure was 150/96 in the ambulance in route. She does have a history of hypertension. She is requesting something for pain but had previously declined when the paramedics had offered. She reports contractions started very mildly around 1 am. She then proceeded to get in the shower around 230. She felt leaking and Her full history and physical was dictated by ELVIRA Suero on 06/23/2024. Please see this for details. Specific Issues/Plans : Faustino, son Eber Pt had manual removal of placenta last delivery without complications, has anxiety about this delivery and possibility of manual removal again. H&P completed by ELVIRA Suero on 06/23/2024? # Anxiety and depression. Not currently on medication, was on them at end of previous NOB: ABELINO: 11 PHQ 9: 8 Initiated escitalopram 05/26/2024 10mg # History GHTN diagnosed pp, not on meds or magnesium Recommended baby ASA starting at 12 weeks # heartburn worsening at 16 weeks. Prescription submitted for famotidine. # difficulty swallowing/sensation of swollen throat. Thyroid palpably normal. TSH ordered-normal. # Insomnia Seen Dr. Morrow and he thinks possible sleep apnea per patient; recommended sleep study post Treated for heartburn with pepcid BID, has not helped Rx for vistaril given at 37 weeks # Mildly prominent cerebellum Seen again with follow-up, per radiology doubtful significance Imaging:? 1st trimester: 12/11/23-?Single living intrauterine with sonographic gestational age 9 weeks 0 days and sonographic due date of 07/15/2024. ? Anatomy scan: 02/26/24-?Limited views of the cervical spine, mildly prominent cerebellum for age, although this may be within normal limits. ? Others: 03/19/24-?Mild prominence of the cerebellum is again noted which is of doubtful significance. Normal spine. pap due COVID: recommended. not vaccinated, declined. Flu: recommended. declined. TDAP: 05/06/24 32wk Mental Health: 34wk Hgb: 12.2 OB - Problem Based A/P Additional Plan (1) care and examination immediately after delivery: Status: Acute (2) Retained placenta: Status: Acute (3) 37 weeks gestation of : Status: Acute (4) Insomnia: Status: Acute (5) Depression: Status: Chronic (6) Anxiety: Status: Chronic Plan ASSESSMENT:? at 37 5/7 weeks gestation complicated by:? # Anxiety and depression. # History GHTN diagnosed pp, not on meds or magnesium # heartburn worsening at 16 weeks. Prescription submitted for famotidine. # difficulty swallowing/sensation of swollen throat. Thyroid palpably normal. TSH ordered-normal. # Insomnia # Mildly prominent cerebellum GBS negative Unplanned vaginal home , placenta undelivered? ? PLAN:? Admit to labor and delivery IV Fentanyl for Pain Delivery of placenta and assess QBL, IV Pitocin if bleeding continues Assess for any need of repairs Routine care after Assess BP and need for Pre-e labs, BP in ambulance was elevated OB Exam Physical Exam Vital signs: Pulse BP Pulse Ox 92 137/91 H 100 06/28/24 04:16 06/28/24 04:16 06/28/24 04:11 Narrative: Vitals Reviewed Constitutional:? Alert and oriented x3 HEENT:? Normocephalic, atraumatic Neck:? Supple Lungs:? Clear to auscultation bilaterally Heart:? Regular rate and rhythm, no murmur, rub or gallop Abdomen:? Soft, nontender Perineum: Placenta not yet delivered, cord clamped and extending from perineum Extremities:? No edema or erythema
--- NOTE | 2024-06-28 04:24 | W.PM.OBVAGDE ---
OB Procedure Vag Delivery Mother Details Mother Details: The patient is a 33 year-old, 2, now Para 2, admitted on 06/28/24 at 37.5 gestation. : 2 Para: 2 Weeks Gestation: 37.5 Admission Date: 06/28/24 Additional Details Amniotic Membrane Status: SROM Amniotic Membrane Rupture Date: 06/28/24 Amniotic Membrane Fluid Description: Clear (per patient report) Analgesia/Anesthesia Type: None and Fentanyl (Given for inspection of perineum) Pitcoin: Yes (AMTSL only after 1.5 hours for concern for increased bleeding) Intrapartal Events: Precipitous Labor <3 Hrs (Delivered at home) Labor Onset: 01:00 Heart: heart tones during second stage were not monitored due to unplanned home . Delivery Details Delivery Date: 06/28/24 Delivery Time: 03:00 (Estimated by parents, exact time unknown) Route of delivery: Infant Gender: Female Viability: Alive; Heart Rate Present Delivery Details: Patient was admitted by ambulance after unplanned home . Placenta was undelivered at time of arrival. SROM and delivery exact time unknown but assumed 3 am. She had a of a viable female while in the shower at home. She reports she felt baby come and immediately lifted her to abdomen after delivery. Paramedics arrived shortly after delivery. On admission to labor and delivery, patient was complaining of a lot of cramping and pain. She was transferred to hospital bed and moved into hands in knees. After patient was assisted, umbilical cord was visibly extending from her perineum. No concerns for heavy bleeding were noted at this time. A gentle tug was given without delivery of placenta. Patient was offered to turn over but felt she could not. Encouraged her to push and with gentle traction placenta delivered intact with a 3 vessel cord at 355 am. Fundus firm. She was offered pain management again to help relax and assist with inspection of the perineum. IV fentanyl 100 mcg given. Perineum was assessed with a small central anterior periurethral laceration, hemostatic and not repaired. Small perineal abrasion, hemostatic and approximated, no repair needed. Clots delivered with placenta were weighed with total QBL 407 cc. Partner reports there was a similar amount of bleeding at home. No QBL or bleeding noted by paramedics. She continued to have trickling and clots in recovery, IV Pitocin was then given. Mother and baby stable; mother plans to breastfeed. weight 2970g. Additional Details Shoulder Dystocia: No Placenta Delivery Time: 03:55 Placental Delivery Description: Spontaneous Blood Loss: 407 (Unknown amount of blood loss prior to arrival/with delivery) Laceration: Periurethral - 1st Degree (not repaired, small perineal abrasion) Blood Loss Measurement Type: QBL Bakri Used: No Sponge/Need Count Correct: Yes Cord Vessel Description: 3 Vessels Event Summary Status: Mother and infant were stable after delivery. Hellen had an additional elevated BP in recovery. Paramedics had noted an elevated blood pressure taken in transport. Due to her history of HTN and elevated blood pressures continuing, labs were ordered and are pending. Disposition: floor
[2024-06-28] MEDS: OXYTOCIN 30 unit/500 ML in NS 30 UNIT/500 ML BAG 300 UNIT IVPB (04:35)
[2024-06-28] MEDS: LACTATED RINGERS 1000 ML 1,000 ML 125 ML IV (04:44)
[2024-06-28] MEDS: IBUPROFEN 600 MG TABLET PO ×2 (04:44→16:19)
[2024-06-28 04:45] LABS: Hematocrit 35.9 % (33.0-51.0); Hemoglobin* 12.3 gm/dL (12.0-16.0); Mean Corpuscular HGB Conc 34 gm/dL (32-36); Mean Corpuscular Hemoglobin 30 pg (26-34); Mean Corpuscular Volume 88 fL (80-100); Platelet Count* 277 K/uL (140-440); Red Blood Count 4.08 m/uL (4.00-5.20); White Blood Count* 12.25 K/uL (4.50-11.00)
[2024-06-28 04:47] LABS: Slide Review Reflex No
[2024-06-28 04:57] LABS: Alanine Aminotransferase* 23 U/L (4-35); Aspartate Amino Transferase* 37 U/L (12-35); Blood Urea Nitrogen* 7 mg/dL (5-24); Creatinine* 0.7 mg/dL (0.5-1.5); Est. Creatinine Clearance* 114.23; Estimated Glomerular Filt Rate 116 ml/min
[2024-06-28] MEDS: ESCITALOPRAM 10 MG TABLET 20 MG PO (06:20)
[2024-06-28] MEDS: ACETAMINOPHEN 500 MG TABLET 1000 MG PO ×2 (08:39→19:47)
[2024-06-29 03:19] VITALS: BP 126/85; PULSE 96; RESP 15; TEMP 36.6
[2024-06-29] MEDS: ACETAMINOPHEN 500 MG TABLET 1000 MG PO ×2 (05:28→14:41)
[2024-06-29] MEDS: IBUPROFEN 600 MG TABLET PO ×2 (05:28→11:45)
[2024-06-29] MEDS: NIFEdipine 30 MG TAB.ER.24 PO (05:29)
[2024-06-29] MEDS: ESCITALOPRAM 10 MG TABLET 20 MG PO (05:29)
[2024-06-29 06:22] LABS: Hematocrit 26.9 % (33.0-51.0); Hemoglobin* 9.4 gm/dL (12.0-16.0); Mean Corpuscular HGB Conc 35 gm/dL (32-36); Mean Corpuscular Hemoglobin 31 pg (26-34); Mean Corpuscular Volume 87 fL (80-100); Platelet Count* 218 K/uL (140-440); Red Blood Count 3.08 m/uL (4.00-5.20); White Blood Count* 8.23 K/uL (4.50-11.00)
[2024-06-29 06:24] LABS: Slide Review Reflex No
[2024-06-29 07:02] LABS: Alanine Aminotransferase* 15 U/L (4-35); Aspartate Amino Transferase* 24 U/L (12-35); Creatinine* 0.7 mg/dL (0.5-1.5); Est. Creatinine Clearance* 114.23; Estimated Glomerular Filt Rate 116 ml/min
[2024-06-29 08:02] VITALS: BP 124/76; PULSE 80; RESP 16; TEMP 36.7; O2SAT 97
[2024-06-29 11:48] VITALS: BP 122/74; PULSE 82; RESP 16; TEMP 36.3; O2SAT 96
--- NOTE | 2024-06-29 12:53 | PM.OBDSVD1 ---
DS: Providers Provider Date Seen: 06/29/24 Date of admission: 06/28/24 04:06 Primary care physician: Not a Local Provider Admitting Clinician: Tatyana Ackerman CNM Attending Physician on discharge: Mitzi FELIX APRN Date of Discharge: 06/29/24 DS: Diagnosis Discharge Diagnosis (1) care and examination immediately after delivery: Status: Acute (2) Lactating mother: Status: Acute (3) Gestational hypertension: Status: Acute Problem details: , on Nifedipine Exam Narrative: Exam Narrative: GENERAL APPEARANCE:? normal affect, alert, no distress MOOD:? appropriate ABDOMEN:? soft, non-tender the uterine fundus is 2 cm below Umbilicus, Midline and is appropriate for the stage of recovery. PERINEUM:? per nursing, intact EXTREMITIES:? normal and minimal edema Const: Vital Signs, click to edit/add: Vital Signs - 24 hr 06/28/24 16:03 06/28/24 19:42 06/28/24 23:07 Temperature 98.1 F 97.8 F 97.6 F Pulse Rate [Pulse Oximeter] 92 95 95 Respiratory Rate 16 18 18 Blood Pressure [Le ft Arm] 127/87 132/84 132/83 Pulse Oximetry 96 97 Oxygen Delivery Me thod Room Air Room Air Room Air 06/29/24 03:19 06/29/24 08:02 06/29/24 11:48 Temperature 97.8 F 98.0 F 97.4 F L Pulse Rate [Pulse Oximeter] 96 80 82 Respiratory Rate 15 16 16 Blood Pressure [Le ft Arm] 126/85 124/76 122/74 Pulse Oximetry 97 96 Oxygen Delivery Me thod Room Air Room Air OB - DS: Summary Hospital Course Hospital Course: Hellen is a 33 y.o. G 2 P 2001 who was admitted to L & D for care after unplanned home . Placenta birthed in the hospital..? She had a NVD that was complicated by unplanned homebirth. The patient feels well.? The pain is well controlled with current medications, but her lower back is very uncomfortable.? She has no new complaints.? She is breast feeding and reports things are going well. the patient has done well.? Increased BP on admit and continuing so oral Nifedipene XR started. Other labs normal, but PCR was not collected. Vitals otherwise have been stable.? She has remained afebrile.? Has a good appetite, is tolerating a general diet.? She is voiding without difficulty.? She is passing gas and has had a bowel movement.? She is ambulating and has a little light headedness and a minor LANCE also.? Has small amount of rubra lochia. She is unsure of contraception for prevention.?They think they are done having children. ?? Problems: GHTN, anemia due to acute blood loss.? ?? plan:? Discharge home with baby.? Follow up in 3d, 2 weeks and 6 weeks.? , may see if needed? Hgb 9.4. Iron supplement ordered orally every other day? GHTN PP diagnosed by elevated BP greater than 4 hours apart? Labs WNL or stable with trending? Discharge home with BP cuff if does not already have one? Follow up in 3-5 days? Call for signs/symptoms of preeclampsia? Continue Nifedipine ER daily until otherwise instructed. Peripartum Data Infant delivery method: Vaginal Laceration description: Periurethral - 1st Degree (NO repair, small perineal abrasion also hemostatic and not repaired) complications: other (Hypertension and anemia) [place] Gender: Female Discharge Plan: Home Status at Discharge Overall status at discharge: patient is not back to baseline Time Spent with Patient Time attestation: Total time spent providing and/or coordinating discharge services: Time spent: Less than 30 minutes Discharge Plan Discharge Disposition: Home, Self-Care Date of Admission: 06/28/24 04:06 Attending Provider on Discharge: Emely Mendoza Primary Care Provider: Provider,Not a Local Condition: Stable Anticipated Discharge Date/Time: 06/29/24 16:35 Discharge Medications: New docusate sodium 100 mg Capsule 100 mg PO DAILY Qty: 60 0RF nifedipine 30 mg Tablet Extended Release 24hr 30 mg PO DAILY Qty: 60 0RF Continued cholecalciferol (vitamin D3) 25 mcg (1,000 unit) capsule 25 mcg PO QDAY pyridoxine (vitamin B6) 25 mg tablet 25 mg PO QDAY PRN omega-3 fatty acids 1,000 mg capsule 1,000 mg PO QDAY DHA 200 mg capsule 200 mg PO QHS valacyclovir 1 gram tablet 2,000 mg PO Q12H PRN Rx Instructions: 2gm [id number] x1 day escitalopram oxalate [Lexapro] 20 mg tablet 20 mg PO QDAY Qty: 30 1RF Discontinued aspirin 81 mg tablet,delayed release (DR/EC) 81 mg PO QDAY Unisom (doxylamine) 25 mg tablet 25 mg PO QHS PRN famotidine 20 mg tablet 20 mg PO BID Qty: 90 0RF hydroxyzine pamoate 50 mg capsule 50 mg PO QHS Qty: 10 0RF Discharge Orders: Discharge Order (Routine); Ordered 06/29/24 Ordered By: Emely Mendoza Patient Education: OB High Blood Pressure DC, OB Vaginal/Breast Feeding, OB [place] [facility] Additional Instructions: Discharge instructions were reviewed with the patient including signs and symptoms of infection and home going medications Nothing vaginally for 6 weeks: no tampons or intercourse Do not drive while taking narcotic pain medication(s) Off Work or School for 6 weeks Symptoms to report to doctor: Bleeding that saturates more than one pad per hour Passing clots larger than the size of a golf ball Pain not relieved by prescribed medication Fever above 100.4 degrees Fahrenheit A foul vaginal odor Difficulty in emotions, mood, and functions Thoughts of hurting yourself and/or Painful, reddened area in your breast Any drainage, redness, or tenderness in your IV/epidural site Severe headache that doesn't improve after taking medications Changes in vision, including temporary loss of vision, blurred vision, and/or light sensitivity Upper abdominal pain (usually under ribs on the right side) Decrease in urination or painful, frequent urinating Chest pain Shortness of breath Tenderness or pain with redness and/swelling in the calf(s) of your leg Follow [facility] for a BP check?07/02/2024 Call with BP greater than or equal to 150/100 2-week visit: discuss infant feeding concerns, review control options and screen for anxiety/depression. 6-week visit for an annual exam. consultation services are available to all mothers and babies for the first year after delivery.? To make an appointment, please call [phone]. For pain control of perineum, breast and pelvic pain, take 600 mg Ibuprofen every 6 hours as needed by mouth or 1000 mg acetaminophen (Tylenol) every 6 hours by mouth as needed. You can alternate these so you are taking something every 3 hours as needed. A heating pad can also be used for your abdomen or breasts. You may also take docusate sodium up to twice daily to soften your stools and help to prevent constipation. You may wean off of it when your stools return to normal. Activity Level: Activity as Tolerated and No strenuous activity Discharge Diet: Regular Follow Up [facility] Inst[facility]
[2024-06-30 00:08] LABS: Rapid Plasma Reagin (RPR) Non Reactive (Non Reactive)
== END 2024-06-29 15:07 | disposition home or self-care (01) | DRG 776 ==
LOC: OB OUT 04:06 → OB 04:06
PROVIDERS: Advanced Practice Midwife; Admitting Provider Advanced Practice Midwife; Visit Provider Advanced Practice Midwife
DX: Z39.0 Encounter for care and examination of mother immediately after delivery (principal); D62 Acute posthemorrhagic anemia; O73.0 Retained placenta without hemorrhage; O90.81 Anemia of the puerperium; O13.5 Gestational [pregnancy-induced] hypertension without significant proteinuria, complicating the puerperium; O71.82 Other specified trauma to perineum and vulva; O99.345 Other mental disorders complicating the puerperium; F41.9 Anxiety disorder, unspecified; F32.A Depression, unspecified; G47.00 Insomnia, unspecified; Z87.59 Personal history of other complications of pregnancy, childbirth and the puerperium
CPT/HCPCS: 36415; 82565; 84450; 84460; 84520; 85018; 85027; 86592; A9270; J3010; J7120

== ENCOUNTER 2024-07-15 14:39 | Emergency (ER) | payer OTHER, SELFPAY ==
[2024-07-15] VITALS (18 sets, daily range): BP systolic 104–132; BP diastolic 63–86; PULSE 62–86; RESP 9–24; TEMP 37.3; O2SAT 96–98; BMI 26.0
--- OUTSIDE RECORDS SUMMARY | 2024-07-15 14:41 | XMS_ITS | Clinical Summary ---
Author Organization [facility] Address [address] [place] [address] Care Team Providers Care Key Carrier Name Role Phone Found, No Pcp MD [...] for each transition of care or referral. [facility] Allergies Active Allergy Reactions Criticality Noted Date [...] denies side effects, reports working well. 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 [employer] Not on file Not on fi le Not on file Last Filed Vital Signs Vital Sign Reading Time Taken Comments Blood Pressure 119/74 01/20/2020 12:48 PM CDT Pulse 74 01/20/2020 12:48 PM CDT Temperature 36.6 C (97.8 F) 01/20/2020 12:48 PM CDT Respiratory Rate 14 01/20/2020 12:48 PM CDT Oxygen Saturation 100% 01/20/2020 12:48 PM CDT Inhaled Oxygen Concentration - - Weight 72.1 kg (159 lb) 05/20/2019 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 SPECIMEN ADEQUACY: Satisfactory for Evaluation. Endocervical cells/transformation zone component present. Verified on 09/14/2012 by ROD VILLATORO(ASCP) (electronic signature) CLINICAL NOTES: LMP: 06/16/12 LIQUID [...] screen for gonorrhea/chlamydia negative Jasmin Ferrara LAB_1 Final Result HP CONVERSION from Last 3 Months or Most Recently Relevant to Health Maintenance Insurance [employer] Care Teams Key Carrier Relationship Specialty Start Date End Date Found, No Pcp, [address] [place] [address] PCP - General 05/02/15
--- OUTSIDE RECORDS SUMMARY | 2024-07-15 14:42 | XMS_ITS | Clinical Summary ---
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 Gender Identity Not on file Sexual Orientation [...] YEARLY PREVENTIVE VISIT 03/18/2020 03/18/2019 COVID-19 Vaccine (2023-2 5 season) 2023 INFLUENZA VACCINE (#1) 2023 , 03/18/2019 PHQ-2 (once per calendar year) 2024 ZOSTER IMMUNIZATION (1 of 2) 09/07/2039 RSV VACCINE (1 - 1-dose 75+ series) 2064 HEPATITIS B IMMUNIZATION Completed 003, 11/23/2001, 10/15/2001 MENINGITIS IMMUNIZATION Completed 09/07/19 08, 09/07/2007 HPV IMMUNIZATION Completed 09/02/2011, 07/12/2008, 09/07/2007 Pneumococcal Vaccine: Pediatrics (0 to 5 Years) and At-Risk Patients (6 to 49 Years) Aged Out No longer eligible b ased on patient's age to complete this topic RSV MONOCLONAL ANTIBODY Aged Out No l onger eligible based on patient's age to complete this topic Insurance [facility] CHOICE Care Teams Lehr Stripper Relationship Specialty Start Date End Date No Ref-Primary, Physician PCP - General 11/16/18
--- OUTSIDE RECORDS SUMMARY | 2024-07-15 14:42 | XMS_ITS | Data Portability ---
Author Organization HEN[facility] - [facility], [id number] Address [address] [place] [address] [address] [place] [address] Assessment No assessment recorded. Plan of Treatment Reminders Order Date Submit Date Provider Last Modified By Organization Details Last Modified Time Details Appointments None recorded. Lab cytology report, thin prep, smear or scraping, cervical or vaginal 2020 [facility], [address], [place], [address], 18:08:05 Referral None recorded. Procedures None recorded. Surgeries None recorded. Imaging US, ovary, for follicular monitoring 2020 021 [email or web address] le_willi[facility], [address], [address], [place], [address], 16:16:18 Medication Orders Prometrium 200 mg capsule 2020 [id number], [address] [place], [place], [id number], 11:45:28 Patient TargetsNo targets recorded. Patient Instructions Encounter Date Encounter Id Patient Instructions Last Modified By Organization Details Last Modified Time 03/29/2021 [id number] - Encouraged breast self-awareness and monthly breast [...] OR MALIG YEIMI . Not Available [facility] ([facility]) [address] [facility], [place], [address], 04/03/2021 18:08:05 03/29/20 21 04/03/2021 IGP, APTIM A HPV, RFX 16/18 ,45 category: NIL Negat aris for Intra epith elial Lesio n Not Available [facility] ([facility]) [address] [facility], [place], [address], 04/03/2021 18:08:05 03/29/20 21 04/03/2021 IGP, APTIM A HPV, RFX 16/18 ,45 adequacy: SECNI Satis facto ry for evalu ation . No endoc ervic al compo nent is ident ified . Not Available [facility] ([facility]) [address] [facility], [place], [address], 04/03/2021 18:08:05 03/29/20 21 04/03/2021 IGP, APTIM A HPV, RFX 16/18 ,45 clinician provided ICD10: Mahi gómez Z01.4 19 Not Available [facility] ([facility]) [address] [place], [address], 04/03/2021 18:08:05 03/29/20 21 04/03/2021 IGP, APTIM A HPV, RFX 16/18 ,45 performed by: Lisa Gomez sa (ASCP ) Not Available [facility] ([facility]) [address] [place], [address], 04/03/2021 18:08:05 03/29/20 21 04/03/2021 IGP, APTIM [...] ts do occur . Not Available [facility] ([facility]) [address] [facility], [place], [address], 04/03/2021 18:08:05 03/29/20 21 04/03/2021 IGP, APTIM A HPV, RFX 16/18 ,45 test methodology: Mahi t This liqui d based ThinP rep(R ) pap test was scree chelsi with the use of an image guide jorge grant. Not Available [facility] ([facility]) [address] [facility], [place], [address], 04/03/2021 18:08:05 03/29/20 21 04/03/2021 IGP, APTIM A HPV, RFX 16/18 ,45 HPV aptima Negati ve negati ve This nucle ic acid ampli ficat ion test detec ts fourt een high- risk HPV types (16,1 8,31, 33,35 ,39,4 5,51, 52,56 ,58,5 9,66, 68) witho ut diffe renti ation . Not Available [facility] ([facility]) [address] [facility], [place], [address], 04/03/2021 18:08:05 12/30/19 21 12/29/2020 US, ovary , for folli cular monit oring No observ ation record ed. [email or web address] [address], [place], [address], 01/02/2021 11:46:58 01/09/20 21 01/08/2021 US, ovary , for folli cular monit oring No observ ation record ed. [email or web address] [address], [place], [address], 05/10/2021 16:23:56 Result Notes None recorded. Procedures Surgical History Date Name Laterality Status Provider Name and Address Organization Details Recorded Time 2020 Date of Last Pap Smear completed Rico Pickett [facility] 04/04/2021 11:39:31 2020 Intrauterine insemination ([facility]) [place] [address], [place], [address], [facility] 01/10/2021 11:43:33 2020 Intrauterine insemination ([facility]) completed ASHLEY WEBER, DANIEL [address] [facility],[address], [place], [address], [facility] 10/12/2020 12:10:47 2020 Intrauterine insemination ([facility]) completed [facility] [address] [address] [facility],[address], [place], [address], [facility] 09/08/2020 11:58:19 2020 Hysterosalpingogram (HSG) ([facility]) [place] [address] [address] [facility],[address], [place], [address], [facility] 07/10/2020 12:20:29 2020 hysterosalpingography completed Rico Pickett [facility] 07/12/2020 14:06:23 2011 extraction of wisdom tooth completed Aleah Webber (TERMED) [place] - [facility] 07/04/2020 13:50:23 1998 tonsilectomy/adenoids completed Aleah Webber (TERMED) [facility] 07/04/2020 13:50:13 Imaging Results Imaging Date Name Status [facility]Modified by [facility] Details LastModified Time 12/29/2020 US, ovary, for follicular monitoring completed [email or web address] [address], [place], [address], 01/02/2021 11:46:58 01/08/2021 US, ovary, for follicular monitoring completed [email or web address] [address], [place], [address], 05/10/2021 16:23:56 Procedure Notes None recorded. Medical Equipment None Reported. Allergies Allergen ID Allergen Name Allergen Category Reaction Reaction Severity Criticality Documentation Date Start Date Code Code System Note Provider Name and Address Organization Details Recorded Time [id number] Substance with sulfonami de structure and antibacte rial mechanism of action (substanc e) medicatio n Not available Not available Not available 09/07/2020 [id number] [facility] Marino [facility] 12:41:32 [id number] Product containin g penicilli n (product) medicatio n Not available Not available Not available 09/07/2020 [id number] 8001 [facility] Marino [facility] 12:41:43 Medications Name Sig Start Date Stop [...] 10,000 unit IM powder for solution Inject 94873 units as needed by intramusc ular route. [...] Updated DateTime 03/29/2021 172.72 cm 25.5 kg/m2 82822.52 g 118 mm[Hg] 70 mm[Hg] Katelynn Ko( TERM) [facility] Lieberman [facility] 08:59:40 Social History Question Answer Notes LastModified by Organizat ion Details LastModified Time Tobacco Smoking Status Never Smoker [facility] Burnett [facility] 09/07/2020 12:42:14 What Is Your Level Of Alcohol Consumption? Occasional 1dr/mo Information not available 09/07/2020 What Is Your Level Of Caffeine Consumption? Occasional 2c/wk [email or web address] Information not available 03/29/2021 Which Illicit Or Recreational Drugs Have You Used? None [email or web address] Information not available 03/29/2021 What Is Your Occupation? [employer] Information not available 09/07/2020 History Of Domestic Violence No Information not available 09/07/2020 Spouse/Partners Name Faustino Information not available 09/07/2020 Marital Status [email or web address] Informati on not available 03/29/2021 What Is Your Relationship Status? Information not available 03/29/2021 Are You Sexually Active? Yes [email or web address] Information not available 03/29/2021 Do You Use Any Illicit Or Recreational Drugs? No [email or web address] Information not available 03/29/2021 Sex: Unknown Functional Status Question Answer Note LastModified by Organization D etails LastModified Time What is your exercise level? Moderate [email or web address] Information not available 03/29/2021 Mental Status None recorded. Family History Relationship Description Onset Age of this Age Resolved Age Notes LastModified by Organization Details LastModified Time Father Depressive disorder [email or web address] Not available 2020 13:51:19 Mother Depressive disorder [email or web address] Not available 2020 13:51:19 Brother Depressive disorder [email or web address] Not available 2020 13:51:19 Sister Depressive disorder [email or web address] Not available 2020 13:51:19 Maternal Grandmother Acute stroke [email or web address] Not available 03/29/2021 08:54:08 Maternal Grandfather Acute stroke [email or web address] Not available 03/29/2021 08:54:08 Maternal Grandfather Family history of Cardiovascul ar disease Not available 03/29 08:54:08 Medical History No [...] Diagnosis/Indication Diagnosis SNOMED-CT Code Diagnosis ICD10 Code Diagnosis Note [id number] DHRUV FAIRBANKS MD [id number] DA_[address] ,[address] [facility] [place] [place] [address] 07/04/2020 13:30:04 07/04/2020 14:44:32 Unexplained infertility 605910464 N97.9 I spent a significan t amount of time discussing the causes of infertilit y. All of the patient's questions were addressed. Infertilit y packet informatio n reviewed. - Plan HSG this cycle due to h/o chlamydia - Call with first day of menses to schedule baseline pelvic ultrasound or call with positive test. - Follow up testing reviewed included labs, HSG and semen analysis. - Ovulation induction with letrozole or clomid discussed including the risks, benefits, alternativ es and need for ultrasound monitoring . - Patient encouraged checking insurance coverage for infertilit y benefits. - Start vitamin with folic acid at least 1 month prior to attempting conception . - Carrier screening discussed, she will check insurance coverage. Reproducti care management [id number] Z31.9 [id number] JAIME MCLAUGHLIN MD BO551_SIR [place]_ED KATIA [address], [address] [place] [address] 07/10/2020 09:48:06 07/10/2020 12:38:31 Female infertility 9142215 N97.9 HSG completed and normal pt will call w/ next menses for an OV adn treatment plan [id number] LANI KWONG DANIEL- [id number]_LIG [place]_BU [address] ,[address] [place] [address] 08/01/2020 13:11:51 08/01/2020 14:38:21 Unexplained infertility [id number] N97.8 [id number] MD NICKIE LORENZO004_SOU TH[place]_[address] ,[address] [facility] [place] [address] 08/01/2020 13:11:03 08/03/2020 15:21:24 Fertility problem [id number] N97.9 [id number] ASHLEY WEBER DANIEL JA622_ONA [place]_[facility] [address] ,[address] [facility] [place] [address] 08/10/2020 08:21:45 08/10/2020 11:05:08 Female infertility [id number] N97.9 [id number] JOHN THOMPSON MD [id number]_FIR [place]_[address] ,[address] [facility] [place] [address] 08/10/2020 08:18:34 08/14/2020 17:44:57 Fertility problem [id number] N97.9 [id number] LNAI KWONG [address] RORYCARMEL LARA ,[address] [place] [address] 08/29/2020 08:25:24 08/29/2020 11:18:45 Female infertility [id number] N97.9 [id number] CATE HAUSER MD [id number] [address] [facility] ,[address] [place] [address] 08/29/2020 08:23:04 08/29/2020 09:05:13 Fertility problem [id number] N97.9 [id number] CATE HAUSER MD [id number] [address] [facility] ,[address] [place] [address] 09/07/2020 13:22:59 09/07/2020 14:16:52 Fertility problem [id number] N97.9 [id number] [address]SHLEY WEBER [address] [facility] ,[address] [place] [address] 09/07/2020 13:25:44 09/07/2020 15:18:12 Female infertility [id number] N97.9 [id number] [address]I [address]WONG [address] [facility] ,[address] [place] [address] 09/08/2020 11:16:44 09/08/2020 12:04:58 Female infertility [id number] N97.9 [id number] JOHN THOMPSON MD [id number] [address] ,[address] [place] [address] 09/27/2020 13:20:54 09/27/2020 13:52:24 Fertility problem 81014062 N97.9 [id number] ASHLEY WEBER, [place] [address]_[facility] [facility] ,[address] [place] [address] 09/27/2020 13:22:49 09/27/2020 14:50:04 Female infertility [id number] N97.9 [id number] ASHLEY WEBER, [place] [address]_SOU [address] [facility] ,[address] [place] [address] 10/04/2020 08:27:06 10/04/2020 15:22:55 Female infertility [id number] N97.9 [id number] CATE HAUSER MD AJ433_MRS [address] ,[address] [place] [address] 10/04/2020 08:24:58 10/04/2020 09:52:16 Fertility problem [id number] N97.9 [id number] ASHLEY WEBER, [place] [address]_SOU [address] ,[address] [place] [address] 10/11/2020 08:25:48 10/11/2020 10:01:24 Female infertility 7121040 N97.9 [id number] CATE HAUSER MD [id number] [address] ,[address] [place] [address] 10/11/2020 08:23:04 10/11/2020 09:17:04 Fertility problem [id number] N97.9 [id number] ASHLEY WEBER, [place] [address]_[facility] [facility] ,[address] [place] [address] 10/12/2020 10:53:17 10/12/2020 12:31:05 Artificial insemination [id number] Z31.83 [id number] CATE HAUSER MD [id number]_WWD [place]_ED KATIA [address] [place] [address],[address] [place] [address] 11/01/2020 14:21:56 11/07/2020 13:30:29 Fertility problem [id number] N97.9 [id number] ERIBERTO HANDY, CNM ZP840_ZZU [place]_ED KATIA [address] [place] [address],[address] [place] [address] 11/01/2020 14:44:50 11/02/2020 14:26:53 Fertility problem [id number] N97.9 See discussion notes. [id number] ENRIQUE GABBIE CLEMENT MD UF233_ZPD [place]_BU [facility] [address] ,[address] [place] [address] 12/29/2020 13:26:57 12/29/2020 14:26:28 Primary infertility [id number] N97.9 Follicle study day 12. Plan ovidrel, IUI, and progestero ne. Will likely need Estradiol 2 mg for EC. I spent a total of {{5 10 15 20* 25 30 35 40 45}} minutes providing care for this patient including: preparing to see the patient, obtaining a medical history, completing a medically appropriat e physical exam, completing documentat ion of visit informatio n and plans in the EMR, counseling the patient and/or caregiver regarding her diagnosis, treatment options and follow up plans, as well as any necessary communicat ion of subsequent test results to the patient, {{reviewin g test results re viewing medical records re viewing imaging re viewing consult notes coun seling the patient and/or caregiver regarding health maintenanc e recommenda tions disc ussing or generating a written summary of the patient s care for referring or consulting healthcare providers} }, {{reviewin g test results re viewing medical records re viewing imaging re viewing consult notes coun seling the patient and/or caregiver regarding health maintenanc e recommenda tions disc ussing or generating a written summary of the patient s care for referring or consulting healthcare providers} }, {{reviewin g test results re viewing medical records re viewing imaging re viewing consult notes coun seling the patient and/or caregiver regarding health maintenanc e recommenda tions disc ussing or generating a written summary of the patient s care for referring or consulting healthcare providers} } [id number] ENRIQUE CLEMENT MD [id number] [address]DA[address] ,[address] [place] [address] 12/29/2020 13:25:08 12/29/2020 14:26:44 Female infertility [id number] N97.9 [id number] ENRIQUE CLEMENT MD [id number] ,[address] [place] [address] 01/08/2021 13:27:26 01/08/2021 14:03:55 Fertility problem [id number] N97.0 [id number] MD NICKIE LABOY004_[address] ,[address] [place] [address] 01/08/2021 14:44:14 01/08/2021 15:55:33 Female infertility 8727940 N97.9 Trigger shot tomorrow and IUI on Friday. [id number] ENRIQUE CLEMENT MD [id number] ,[address] [place] [address] 01/09/2021 12:50:49 01/09/2021 15:05:05 [id number] JAIME MCLAUGHLIN MD JB081_MFN [address] ,[address] [place] [address] 01/10/2021 10:50:08 01/10/2021 12:24:09 Female infertility 7521287 N97.9 IUI completedp rogesteron e supplement ation through 12 weeks of or until mensesCOVI D vaccine strongly recommende d Artificial insemination [id number] Z31.83 [id number] ERIBERTO HANDY CNM SG379_JWP [address] ,[address] [place] [address] 03/29/2021 08:47:31 03/29/2021 11:05:59 Gynecologic examination [id number] Z01.419 Health Concerns Section Related Observation LastModified by Organization Detai ls LastModified Time None Recorded Concern Status LastModified by Organization Details LastModified Time None Recorded Advance Directives Directive None Recorded Payers Encounter Date Sequence Insurance Name Policy Number Policy Hathaway Covered Member ID Hathaway Member ID Guarantor Name 01/08/2021 1 UMR [id number] Hellen J Jovon [id number] Hellen J Jovon 01/08/2021 1 UMR [id number] Hellen J Jovon [id number] Hellen J Jovon 01/09/2021 1 UMR [id number] Hellen J Jovon [id number] Hellen J Jovon 01/10/2021 1 UMR [id number] Hellen J Jovon [id number] Hellen J Jovon 03/29/2021 1 UMR [id number] Hellen J Jovon [id number] Hellen J Jovon Notes Date Note Type Note Provider Name and Address Organization Details Recorded Time 01/08/2021 text/html Cycle #: {{1 2 3 4* 5 6}} Date of Cycle Day 1:___10/30/2020 Cycle Day: Cycle Medications: {{Clomid 50mg Clomid 100mg Clomid 150mg letrozole 2.5mg letrozole 5mg letrozole 7.5mg Follistim menop ur 75mg menopur 150mg menopur 225mg menopur 300mg dexamethasone 0.25mg Clomid 50mg #}} {{Clomid 50mg Clomid 100mg Clomid 150mg letrozole 2.5mg letrozole 5mg letrozole 7.5mg Follistim menop ur 75mg menopur 150mg menopur 225mg menopur 300mg dexamethasone 0.25mg}} {{Clomid 50mg Clomid 100mg Clomid 150mg letrozole 2.5mg letrozole 5mg letrozole 7.5mg Follistim menop ur 75mg menopur 150mg menopur 225mg menopur 300mg dexamethasone 0.25mg}} {{Clomid 50mg Clomid 100mg Clomid 150mg letrozole 2.5mg letrozole 5mg letrozole 7.5mg Follistim menop ur 75mg menopur 150mg menopur 225mg menopur 300mg dexamethasone 0.25mg}} Medication taken on: {{days 3-7* days 4-8 days 5-9 days 3-12}} Ultrasound findings: Endometrium: {{trilaminar non-tril aminar endometrial thickness 7.41 mm#}} Left Ovarian Follicles: 17.8 mm Right Ovarian Follicles: {{<6 >6 20.1mm#}}, Fluid in Cul-de-sac: {{yes no}} Trigger Shot: {{yes* no}}It did not arrive today so pt will get the shot tomorrow and IUI on Friday. Insemination: {{yes* no}} Estradiol Level: 44.7 on 07/04/2020 Semen Analysis: {{yes* no}} Tubal Patency Study: {{normal* abnormal de clines scheduled}} Lab Results: {{normal abnormal dec lines scheduled proge sterone 10.6#}} Results of Cycle: [place] [address], [place], [address], [facility] [employer] [facility] 01/08/2021 16:02:27 01/10/2021 text/html here for IUI - [place] [address], [place], [address], [facility] [employer] 01/10/2021 11:45:54 03/29/2021 text/html ANNUAL GYNECOLOG IC EXAMThis patient presents today for an annual gynecologic exam. Her periods are {{regular* irregular consistent with a normal withdrawal bleed on hormonal contraception infrequ ent secondary to hormonal contraceptive use}}.The bleeding is{{normal light mode rate heavy* heavy with clots interferes with lifestyle}}.She reports {{no a mild degree of a moderate degree of severe*}} dysmenorrhea. She reports {{no changes* changes}} to breasts. The patient {{denies* reports}} vaginal {{itching burning itc bob and burning*}}. The patient's past medical and surgical history were reviewed again today. The medication and allergy list was made current. SEXUAL HISTORYShe {{is not is* is not sexually active and has never been is rarely}} sexually active. The patient {{is using contraception is not using contraception* had a tubal ligation reports that her partner had a vasectomy had Essure performed reports bilateral salpingectomy}} to prevent . She {{denies* reports}} new partners since last visit. She reports feeling {{safe* unsafe}} in her relationships. The patient {{has accepted has requested declines*}} STD testing today. HEALTHCARE MAINTENANCEThe patient's last pap smear was {{never 1 year ago 2 years ago three years ago 4 years ago 5 years ago unknown* many years ago}}. I reviewed with the patient today [facility] guidelines for recommended frequency of pap smear testing. The patient expressed understanding. The HPV vaccine {{has not been done. Recommended today. Discussed the indications or the vaccine including risks and benefits was completed was not started is in progress was not done as patient declined was not done as contraindicated in patient is not indicated in this patient*}}. Her CAGE screen was {{negative* positive} }. The patient's depression screening PHQ-2 Score is 1 and the ABELINO-7 is 6. PDQ-9 is 7. Pt reports that most days she is coping well. She has had dep/anx for years and it runs in her family. She has never been on medication. Feels she has good support system and declines intervention. The patient {{has no* has the following}} additional complaints. ERIBERTO HANDY, [facility] [address] [facility],[address], [place], [address], [place] - [facility] 03/29/2021 11:01:17 OBGyn Episode No OBEpisode recorded.
--- NOTE | 2024-07-15 16:40 | ED.WEAKNESS ---
HPI - Weakness General Date Seen: 07/15/24 Chief complaint: Unspecified Complaint, Adult Stated complaint: lightheadedness Time Seen by Provider: 07/15/24 15:56 Source: patient, family, RN notes reviewed and old records reviewed Mode of arrival: ambulatory Limitations: no limitations History of Present Illness HPI Narrative: Patient is a very nice 33-year-old , now 2 weeks out from a home delivery that was not supposed to be. She got up and went to the shower and delivered her baby herself in the shower she then came to the hospital by ambulance, and everything was good, since then and while she was in hospital she was diagnosed with hypertension, is been on nifedipine, she has been feeling very weak since she had this started, worse in the last 3-4 days, notable when she sits up walks around, she feels like she almost might pass out or get dizzy, she came for hearing test for her young daughter today, and felt a similar type thing going on which she was sitting waiting for the hearing test. He did get her some snack, along with some fluids in juice and she felt a little bit better but that is persisted. She does describe a little bit of a headache which she has had throughout her entire , no worse according to both her and her , she feels almost that her vision isn't quite right also. With the it is almost a little cloudy. She feels however better now than she did earlier she ate normally today, she drank normally is urinating normal there is no diarrhea nausea vomiting, fevers chills or sweats rashes or any other complaints she maybe had a little bit of abdominal pain that is now gone away, but does not have any other complaints her lochia post delivery has basically stopped. No past history of any significant problems with syncope, hypotension, she said she knows her blood pressure uses the runs in the low 100 systolic. Denies chest pain shortness of breath leg swelling, hemoptysis fevers chills sweats sore throat any sickness, denies use of drugs or alcohol, Related Data Home Medications ?Medication ?Instructions ?Recorded ?Confirmed docosahexaenoic acid 200 mg 200 mg PO QHS 03/26/24 07/15/24 capsule ( DHA) valacyclovir 1 gram tablet 2,000 mg PO Q12H PRN 05/26/24 07/15/24 ferrous sulfate 325 mg (65 mg mg PO 07/02/24 07/15/24 iron)/5 mL oral solution Previous Rx's ?Medication ?Instructions ?Recorded escitalopram oxalate 20 mg tablet 20 mg PO QDAY #30 tabs 06/23/24 (Lexapro) nifedipine 30 mg tablet,extended 30 mg PO DAILY #60 tabs 06/29/24 release 24 hr Allergies Allergy/AdvReac Type Severity Reaction Status Date / Time Penicillins Allergy Mild Rash Verified 07/15/24 14:57 Sulfa (Sulfonamide Allergy Mild Rash Verified 07/15/24 14:57 Antibiotics) Review of Systems Status of ROS: Reports: 10 or more systems reviewed and unremarkable except as noted in History and below PFSH PFS Medical History Depression ?F32.A - Depression, unspecified (ICD-10) Anxiety ?F41.9 - Anxiety disorder, unspecified (ICD-10) Retained placenta ?O73.0 - Retained placenta without hemorrhage (ICD-10) Insomnia ?G47.00 - Insomnia, unspecified (ICD-10) Heartburn ?R12 - Heartburn (ICD-10) Swallowing difficulty ?R13.10 - Dysphagia, unspecified (ICD-10) 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 - Herpesviral vesicular dermatitis (ICD-10) Normal spontaneous vaginal delivery (04/18/22) ?O80 - Encounter for full-term uncomplicated delivery (ICD-10) resulting from in vitro fertilization (03/2022) ?O09.819 - Supervision of resulting from assisted reproductive technology, unspecified trimester (ICD-10) Surgical History [place] teeth extracted (2011) ?K08.409 - Partial loss of teeth, unspecified cause, unspecified class (ICD-10) Hx of tonsillectomy (1998) ?Z90.89 - Acquired absence of other organs (ICD-10) Family History Mother Melanoma Cervical cancer Maternal Grandfather Heart disease Prostate cancer Social History Narrative: SOCIAL Education: Bachelors degree 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 Partner: Faustino, ; massage therapist Lives with: Eber Harmon Pets: 2 cats Abuse: Denies past/present Special Diet: Denies Ok with a blood transfusion: yes Culture or sabianism beliefs: denies RISK FACTORS Exercise Times/wk: not routinely Hx of Depression and/or Anxiety/other mood disorder: Both hx meds for last few weeks of Seat Belt Use: Routinely Smoking: Denies past/present Alcohol/day: Denies while , rarely prior to Caffeine: Tea, mild Drug Use: Denies past/present Chicken Pox: Yes as a child MRSA: Denies What is your current living situation?: I presently have a place to live Problems where you live: no known problems In the past 12 months, utilities in danger of being shut off: no In past 12 months, lack of transportation kept you from medical appts, meetings, work, or getting things needed for daily living: no In the past 12 mos, have been you worried that your food would run out before you had money to buy more?: never true In the past 12 mos, the food you bought just didn't last and you didn't have money to buy more?: declined to answer Are you following a diet prescribed by a doctor: No Are you following a special diet: No Highest level of school completed/degree received: Bachelor's degree Physical activity type: walking, running and other Physical activity type details: HIIT Smoking Status: Never smoker Non-prescribed substance use: denies use Caffeine: No How often does anyone, including family, friends and others, physically hurt you: never How often does anyone, including family, friends and others, insult or talk down to you: never How often does anyone, including family, friends and others, threaten you with harm: never How often does anyone, including family, friends and others, scream or curse at you: never Exam Narrative: Exam Narrative: On examination in room 3 she is in no apparent distress she is pleasant and alert speaking to me normally her pupils are equal round reactive to light she tracks normally her fundi are entirely normal. Cranial nerves 3-12 are normal mouth opening is normal neck is supple full range of motion, no meningismus, skin reveals no petechiae rashes, she denies any tenderness in her breasts suggestive of mastitis, her heart sounds are normal good air entry bilaterally no wheezing crackles noted, abdomen is soft there is no guarding no organomegaly, no tenderness anywhere. , I cannot feel uterus, at least easily. Bowel sounds are normal. Legs show no evidence of significant edema swelling she moves all extremities independently and well, no redness noted, rashes or other issues. Const: Vital Signs, click to edit/add: Vital Signs - 24 hr 07/15/24 14:46 07/15/24 16:15 07/15/24 16:50 Temperature 99.2 F Pulse Rate 62 Pulse Rate [Right Pulse Oximeter] 76 Pulse Rate [orthos tatic lying] 67 Pulse Rate [orthos tatic sitting] 71 Pulse Rate [orthos tatic standing] 86 Respiratory Rate 18 Blood Pressure Blood Pressure [Ri ght Upper Arm] 119/77 Blood Pressure [or thostatic lying] 132/86 Blood Pressure [or thostatic sitting] 127/85 Blood Pressure [or thostatic standing ] 120/83 Pulse Oximetry 96 97 [facility] 07/15/24 16:57 07/15/24 17:00 07/15/24 17:02 Temperature Pulse Rate 69 65 68 Pulse Rate [Right Pulse Oximeter] Pulse Rate [orthos tatic lying] Pulse Rate [orthos tatic sitting] Pulse Rate [orthos tatic standing] Respiratory Rate Blood Pressure 122/82 121/86 Blood Pressure [Ri ght Upper Arm] Blood Pressure [or thostatic lying] Blood Pressure [or thostatic sitting] Blood Pressure [or thostatic standing ] Pulse Oximetry 98 98 98 [facility] 07/15/24 17:03 07/15/24 17:15 07/15/24 17:17 Temperature Pulse Rate 64 65 66 Pulse Rate [Right Pulse Oximeter] Pulse Rate [orthos tatic lying] Pulse Rate [orthos tatic sitting] Pulse Rate [orthos tatic standing] Respiratory Rate 14 Blood Pressure 117/77 Blood Pressure [Ri ght Upper Arm] Blood Pressure [or thostatic lying] Blood Pressure [or thostatic sitting] Blood Pressure [or thostatic standing ] Pulse Oximetry 98 98 97 Oxygen Delivery Me thod 07/15/24 17:18 07/15/24 17:30 07/15/24 17:31 Temperature Pulse Rate 65 65 65 Pulse Rate [Right Pulse Oximeter] Pulse Rate [orthos tatic lying] Pulse Rate [orthos tatic sitting] Pulse Rate [orthos tatic standing] Respiratory Rate 13 16 9 L Blood Pressure 109/69 Blood Pressure [Ri ght Upper Arm] Blood Pressure [or thostatic lying] Blood Pressure [or thostatic sitting] Blood Pressure [or thostatic standing ] Pulse Oximetry 97 96 96 Oxygen Delivery Me thod 07/15/24 17:45 07/15/24 17:47 07/15/24 18:00 Temperature Pulse Rate 70 69 67 Pulse Rate [Right Pulse Oximeter] Pulse Rate [orthos tatic lying] Pulse Rate [orthos tatic sitting] Pulse Rate [orthos tatic standing] Respiratory Rate 24 14 12 Blood Pressure 107/70 Blood Pressure [Ri ght Upper Arm] Blood Pressure [or thostatic lying] Blood Pressure [or thostatic sitting] Blood Pressure [or thostatic standing ] Pulse Oximetry 97 98 97 Oxygen Delivery Me thod 07/15/24 18:02 07/15/24 18:15 07/15/24 18:17 Temperature Pulse Rate 66 72 71 Pulse Rate [Right Pulse Oximeter] Pulse Rate [orthos tatic lying] Pulse Rate [orthos tatic sitting] Pulse Rate [orthos tatic standing] Respiratory Rate 19 15 10 L Blood Pressure 104/63 106/71 Blood Pressure [Ri ght Upper Arm] Blood Pressure [or thostatic lying] Blood Pressure [or thostatic sitting] Blood Pressure [or thostatic standing ] Pulse Oximetry 97 97 98 Oxygen Delivery Me thod Documenting provider has reviewed patient's vital signs: yes Course Course ED Course: Went back in and talked to the patient her she was feeling better she still had a little bit of a headache, her reminded her that she has had a headache now for probably 6 months. She said this is more frontal than previously however. We are reassured by the laboratory work, and I explained to her that I also talked to OBGYN Dr.Christina Valerio she also thought that there really was in nothing here other than possibly decreasing her antihypertensive medication which could be causing some issues here. We went over signs and symptoms of worsening when she should re-presented, and she was very comfortable with this and going home. I think ongoing follow-up by calling tomorrow the clinic is with the OBGYN suggested, and then they can titrate the medication down, Vital Signs Vital signs: Initial Vital Signs Temperature 99.2 F 07/15/24 14:46 Temperature Source Temporal Artery Scan 07/15/24 14:46 Pulse Rate 76 07/15/24 14:46 Pulse Rhythm Regular 07/15/24 14:46 Pulse Strength 3+ Normal 07/15/24 14:46 Respiratory Rate 18 07/15/24 14:46 Blood Pressure 119/77 07/15/24 14:46 Blood Pressure Mean 91 07/15/24 14:46 Blood Pressure Position Sitting 07/15/24 14:46 Pulse Oximetry 96 07/15/24 14:46 Oxygen Delivery Method Room Air 07/15/24 14:46 Vital Signs Temperature 99.2 F 07/15/24 14:46 Pulse Rate 76 07/15/24 14:46 Respiratory Rate 18 07/15/24 14:46 Blood Pressure 119/77 07/15/24 14:46 Pulse Oximetry 96 07/15/24 14:46 Oxygen Delivery Method Room Air 07/15/24 14:46 Temperature 99.2 F 07/15/24 14:46 Pulse Rate 71 07/15/24 18:17 Respiratory Rate 10 L 07/15/24 18:17 Blood Pressure 106/71 07/15/24 18:17 Pulse Oximetry 98 07/15/24 18:17 Oxygen Delivery Method Room Air 07/15/24 14:46 Medications Administered Medications: Discontinued Medications Generic Name Dose Route Start Last Admin Trade Name Freq PRN Reason Stop Dose Admin Sodium Chloride 1,000 mls @ 1,000 mls/hr 07/15/24 16:30 07/15/24 17:45 0.9 % Sodium Chloride 1000 Ml IV 07/15/24 17:29 Infused .Q1H KEYANNA Infusion Sodium Chloride 1,000 mls @ 1,000 mls/hr 07/15/24 18:15 07/15/24 18:38 0.9 % Sodium Chloride 1000 Ml IV 07/15/24 19:14 Infused .Q1H KEYANNA Infusion MDM - Weakness MDM Narrative Medical decision making narrative: Life-threatening differential diagnosis considered include: Cardiac arrhythmia, acute blood loss, and intracranial bleed. Other differential diagnosis include but are not limited to vasovagal syncope, orthostatic syncope, seizure, as well as other etiologies Differential Diagnosis Differential diagnosis: Likely acute myocardial infarction, anemia, hypoglycemia, hypothyroidism, rhabdomyolysis, sepsis and dehydration Medical Records Attestation: I reviewed the patient's medical records. Lab Data Attestation: I reviewed the patient's lab results. Labs: Lab Results 07/15/24 07/15/24 Range/Units 16:19 16:39 WBC 5.17 (4.50-11.00) K/uL RBC 3.95 L (4.00-5.20) m/uL Hgb 11.6 L (12.0-16.0) gm/dL Hct 34.9 (33.0-51.0) % MCV 88 (80-100) fL MCH 29 (26-34) pg MCHC 33 (32-36) gm/dL RDW Coeff of Gomez 11.7 (11.5-15.5) % Plt Count 298 (140-440) K/uL Neut % (Auto) 40.4 L (42.0-72.0) % Lymph % (Auto) 48.7 H (20-44) % [place] % (Auto) 6.8 (0.0-11.0) % Eos % (Auto) 3.5 (0.0-7.0) % Baso % (Auto) 0.6 (0.0-3.0) % Neut # (Auto) 2.10 (1.7-7.0) K/uL Lymph # (Auto) 2.50 (0.90-2.90) K/uL [place] # (Auto) 0.40 (0.00-0.90) K/UL Eos # (Auto) 0.18 (0.00-0.50) K/uL Baso # (Auto) 0.03 (0.00-0.30) K/uL Abs Immat Gran (auto) 0.00 (0.00-0.30) K/uL Imm/Tot Granulo (auto) 0.0 % INR 0.92 (0.91-1.10) APTT 25 (23-33) Seconds D-Dimer Quant (PE/DVT) 0.26 (0.00-0.50) ug/ml Sodium 141 (135-149) mmol/L Potassium 4.0 (3.6-5.1) mmol/L Chloride 107 (96-114) mmol/L Carbon Dioxide 23 (20-32) mmol/L Anion Gap 11 (7-15) mEq/L BUN 17 (5-24) mg/dL Creatinine 0.9 (0.5-1.5) mg/dL Estimated Creat Clear 88.85 Estimated GFR 86 ml/min Glucose 89 (60-115) mg/dL Lactate 0.8 (0.5-1.9) mmol/L Calcium 9.5 (8.4-10.6) mg/dL Total Bilirubin 0.4 (0.1-1.5) mg/dL Direct Bilirubin 0.4 (0.0-0.5) mg/dL AST 33 (12-35) U/L ALT 23 (4-35) U/L Alkaline Phosphatase 94 (40-150) U/L C-Reactive Protein < 0.5 L (0.5-1.0) mg/dL Total Protein 7.8 (6.0-8.3) g/dL Albumin 4.9 (3.3-5.0) g/dL POC Troponin I 0.01 (0.01-0.04) ng/ml Reassured that her in knee me a improved from the hospital, ECG Data Attestation: I personally reviewed and interpreted this ECG as follows: ECG interpretation date: 07/15/24 Prior ECG tracings: not available for review Interpretation: EKG shows normal sinus rhythm, ventricular rate is 61, normal QT QTC is noted, no acute ST wave changes assessment: Normal EKG Discharge Plan Discharge Clinical Impression: Pre-syncope, Hypertension in , condition, Headache Patient Disposition: Home w/ Parent or Adult Condition: Improved Instructions: Syncope (DC), Acute Headache (ED), Hypertension During (ED) Additional Instructions: Home rest fluids, [facility], and they said they would taper you down on your medication as they feel that this is likely related a little bit to the medication her using. If the headache worsens, changes, and we discussed this then come back here to the emergency department but all the testing today was reasonable and reassuring Activity Level: Light activity Discharge Diet: Regular Prescriptions: No Action ferrous sulfate 325 mg (65 mg iron)/5 mL solution PO DHA 200 mg capsule 200 mg PO QHS valacyclovir 1 gram tablet 2,000 mg PO Q12H PRN Rx Instructions: 2gm [id number] x1 day escitalopram oxalate [Lexapro] 20 mg tablet 20 mg PO QDAY Qty: 30 1RF nifedipine 30 mg Tablet Extended Release 24hr 30 mg PO DAILY Qty: 60 0RF Follow Up/Referrals: Provider,Not a Local [Primary Care Provider] - Stand Alone Forms: [employer] Info Instructions
[2024-07-15 16:41] LABS: Lactate* 0.8 mmol/L (0.5-1.9)
[2024-07-15 16:43] LABS: Basophils Absolute Auto 0.03 K/uL (0.00-0.30); Basophils Percent Auto 0.6 % (0.0-3.0); Eosinophils Absolute Auto 0.18 K/uL (0.00-0.50); Eosinophils Percent Auto 3.5 % (0.0-7.0); Hematocrit 34.9 % (33.0-51.0); Hemoglobin* 11.6 gm/dL (12.0-16.0); Lymphocytes Percent Auto 48.7 % (20-44); Mean Corpuscular HGB Conc 33 gm/dL (32-36); Mean Corpuscular Hemoglobin 29 pg (26-34); Mean Corpuscular Volume 88 fL (80-100); Monocytes Percent Auto 6.8 % (0.0-11.0); Neutrophils Percent Auto 40.4 % (42.0-72.0); Platelet Count* 298 K/uL (140-440); RDW Coefficient of Variation % 11.7 % (11.5-15.5); Red Blood Count 3.95 m/uL (4.00-5.20); Slide Review Reflex No; White Blood Count* 5.17 K/uL (4.50-11.00)
--- OUTSIDE RECORDS SUMMARY | 2024-07-15 16:48 | XMS_ITS | Clinical Summary ---
Author Organization [facility] Address [address] [place] [id number] Care Team Providers Care Plastic Parts Fabricator Name Role Phone No Ref-Primary, Physician Primary [...] on file Legal Sex Female 3:16 AM FAMILY LAW PAR[employer] Gender Identity Not on file Sexual Orientation [...] patient's age to complete this topic Insurance [facility] CHOICE Care Teams Plastic Parts Fabricator Relationship Specialty Start Date End Date No Ref-Primary, Physician PCP - General 11/16/18
--- OUTSIDE RECORDS SUMMARY | 2024-07-15 16:48 | XMS_ITS | Clinical Summary ---
Author Organization [facility] Address [address] [place] [address] Care Team Providers Care Window Glass Cutter Off Name Role Phone Found, No Pcp MD [...] for each transition of care or referral. 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
[2024-07-15 16:50] LABS: Troponin, Point-of-Care* 0.01 ng/ml (0.01-0.04)
[2024-07-15] MEDS: 0.9 % SODIUM CHLORIDE 1000 ml 1,000 ML IV ×2 (16:51→17:50)
[2024-07-15 17:07] LABS: Albumin* 4.9 g/dL (3.3-5.0); Chloride* 107 mmol/L (96-114); Sodium* 141 mmol/L (135-149)
[2024-07-15 17:10] LABS: Anion Gap 11 mEq/L (7-15); Blood Urea Nitrogen* 17 mg/dL (5-24); Carbon Dioxide* 23 mmol/L (20-32); Creatinine* 0.9 mg/dL (0.5-1.5); Est. Creatinine Clearance* 88.85; Estimated Glomerular Filt Rate 86 ml/min
[2024-07-15 17:11] LABS: Alanine Aminotransferase* 23 U/L (4-35); Alkaline Phosphatase* 94 U/L (40-150); Aspartate Amino Transferase* 33 U/L (12-35); Bilirubin Direct* 0.4 mg/dL (0.0-0.5); Bilirubin Total* 0.4 mg/dL (0.1-1.5); Calcium* 9.5 mg/dL (8.4-10.6); Glucose* 89 mg/dL (60-115); Total Protein* 7.8 g/dL (6.0-8.3)
[2024-07-15 17:17] LABS: C Reactive Protein* < 0.5 mg/dL (0.5-1.0)
[2024-07-15 17:44] LABS: INR 0.92 (0.91-1.10); Prothrombin Time 13.1 Seconds
[2024-07-15 17:45] LABS: Partial Thromboplastin Time* 25 Seconds (23-33)
[2024-07-15 17:53] LABS: D Dimer Quantitative* 0.26 ug/ml (0.00-0.50)
== END 2024-07-15 18:38 | disposition home or self-care (01) ==
PROVIDERS: Emergency Provider Family Medicine
DX: R55 Syncope and collapse (principal); R51.9 Headache, unspecified; O16.9 Unspecified maternal hypertension, unspecified trimester
CPT/HCPCS: 36415; 80048; 80076; 83605; 84484; 85025; 85379; 85610; 85730; 86140; 93005; 94761; 99284; J7030

== ENCOUNTER 2024-08-11 08:36 | Outpatient (CLI) | payer OTHER, SELFPAY | END 2024-08-11 08:37 | disposition home or self-care (01) | LOC: LKVREF 08:37 | PROVIDERS: Visit Provider Midwife | DX: F41.8 Other specified anxiety disorders (principal) | CPT/HCPCS: 84443 ==

== ENCOUNTER 2024-09-30 18:16 | Emergency (ER) | payer OTHER, SELFPAY ==
[2024-09-30 18:33] VITALS: BP 107/72; PULSE 67; RESP 18; TEMP 36.2; O2SAT 99; BMI 26.9
[2024-09-30 19:00] VITALS: RESP 16; O2SAT 99
--- OUTSIDE RECORDS SUMMARY | 2024-09-30 19:01 | XMS_ITS | Clinical Summary ---
Author Organization [facility] Address [address] [place] [address] Care Team Providers Care Still Cleaner Name Role Phone Found, No Pcp MD [...] for each transition of care or referral. 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 Height 172.7 cm (5' 8) 03/18/2019 3:47 PM PULLEY MAINTAINER Body Mass Index 24.18 03/18/2019 3:47 PM PULLEY MAINTAINER Plan of Treatment Health Maintenance Due Date Last Done Comments Hep C Screening (Preventive Services) 1989 HIV Screening (Preventive Services) 2005 DTaP/Tdap/Td Vaccine (3 - Tdap) 2017 09/07/2007, 10/15/2001 Cervical Cancer Screening 01/29/20212017 (Completed), 09/08/2012, 09/02/2011, Additional history exists Adult Preventive Visit 03/18/2021 03/18/2019 COVID-19 Vaccine ( season) 2023 Influenza Vaccine (Season Ended) 2024 03/18/2019 Zoster/Shingles Vaccine (1 of 2) 09/07/2039 HepB Vaccine Completed 06/23/2002, 10/27, 10/15/2001 MCV4 Vaccine Completed 09/07/2007 HPV Vaccine Completed 09/02/2011, 06/26, 09/07/2007 HepA Vaccine Completed 09/02/2011, 09/07/2007 Hib Vaccine Aged Out No longer eligi ble based on patient's age to complete this topic IPV (Polio) Vaccine Aged Out No longe r eligible based on patient's age to complete this topic Meningococcal B Vaccine Aged Out No l onger eligible based on patient's age to complete this topic Pneumococcal Vaccine Aged Out No long er eligible based on patient's age to complete [...] CDT FINAL GYNECOLOGICAL CYTOLOGY REPORT Pathology #: [id number] Date Obtained: 09/08/2012 Date Received: 09/09/2012 INTERPRETATION/RESULTS: [...] Relevant to Health Maintenance Insurance MEDICA CHOICE [facility] WC Care Teams Still Cleaner Relationship Specialty Start Date End Date Found, No Pcp, [address] [place] [address] PCP - General 05/02/15
--- OUTSIDE RECORDS SUMMARY | 2024-09-30 19:01 | XMS_ITS | Data Portability ---
Author Organization HEN[facility] - [facility]ISTR[facility], [id number] Address [address] [place] [address] [address] [place] [address] Assessment No assessment recorded. Plan of Treatment Reminders Order Date Submit Date Provider Last Modified By Organization Details Last Modified Time Details Appointments None recorded. Lab cytology report, thin prep, smear or scraping, cervical or vaginal 2020 [facility], [address], [place], [address], 18:08:05 Referral None recorded. Procedures None recorded. Surgeries None recorded. Imaging US, ovary, for follicular monitoring 2020 021 [email or web address] [email or web address] le_william, [address], [address], [place], [address], 16:16:18 Medication Orders Prometrium 200 mg capsule 2020 [place] [id number], [address] [place], [place], [id number], 11:45:28 Patient TargetsNo targets recorded. Patient Instructions Encounter Date Encounter Id Patient Instructions Last Modified By Organization Details Last Modified Time 03/29/2021 [id number] - Encouraged breast self-awareness and monthly breast [...] OR MALIG YEIMI . Not Available [facility] ([facility]) [address] [facility], [place], [address], 04/03/2021 18:08:05 03/29/20 21 04/03/2021 IGP, APTIM A HPV, RFX 16/18 ,45 category: NIL Negat aris for Intra epith elial Lesio n Not Available [facility] ([facility]) [address] [facility], [place], [address], 04/03/2021 18:08:05 03/29/20 21 04/03/2021 IGP, APTIM A HPV, RFX 16/18 ,45 adequacy: SECNI Satis facto ry for evalu ation . No endoc ervic al compo nent is ident ified . Not Available [facility] ([facility]) [address] [facility], [place], [address], 04/03/2021 18:08:05 03/29/20 21 04/03/2021 IGP, APTIM A HPV, RFX 16/18 ,45 clinician provided ICD10: Mahi gómez Z01.4 19 Not Available [facility] ([facility]) [address] [place], [address], 04/03/2021 18:08:05 03/29/20 21 04/03/2021 IGP, APTIM A HPV, RFX 16/18 ,45 performed by: Lisa Gomez sa (ASCP ) Not Available [facility] ([facility]) [address] [place], [address], 04/03/2021 18:08:05 03/29/20 21 04/03/2021 IGP, APTIM [...] ts do occur . Not Available [facility] ([facility]) [address] [facility], [place], [address], 04/03/2021 18:08:05 03/29/20 21 04/03/2021 IGP, APTIM A HPV, RFX 16/18 ,45 test methodology: Mahi t This liqui d based ThinP rep(R ) pap test was scree chelsi with the use of an image guide jorge grant. Not Available [facility] ([facility]) [address] [facility], [place], [address], 04/03/2021 18:08:05 03/29/20 21 04/03/2021 IGP, APTIM A HPV, RFX 16/18 ,45 HPV aptima Negati ve negati ve This nucle ic acid ampli ficat ion test detec ts fourt een high- risk HPV types (16,1 8,31, 33,35 ,39,4 5,51, 52,56 ,58,5 9,66, 68) witho ut diffe renti ation . Not Available [facility] ([facility]) [address] [facility], [place], [address], 04/03/2021 18:08:05 12/30/19 21 12/29/2020 US, ovary , for folli cular monit oring No observ ation record ed. [email or web address] [address], [place], [address], 01/02/2021 11:46:58 01/09/20 21 01/08/2021 US, ovary , for folli cular monit oring No observ ation record ed. [email or web address] [address], [place], [address], 05/10/2021 16:23:56 Result Notes None recorded. Procedures Surgical History Date Name Laterality Status Provider Name and Address Organization Details Recorded Time 2020 Date of Last Pap Smear completed Rico Pickett [facility]ES REGISTRAR 04/04/2021 11:39:31 2020 Intrauterine insemination ([facility]) [place] [address] [facility],[address], [place], [address], [facility] 01/10/2021 11:43:33 2020 Intrauterine insemination ([facility]) completed ASHELY WEBER DANIEL [address] [facility], [place], [address], [facility]IST[facility] 10/12/2020 12:10:47 2020 Intrauterine insemination ([facility]) [facility] [address] [facility],[address], [place], [address], [facility] REGISTR[facility] 09/08/2020 11:58:19 2020 Hysterosalpingogram (HSG) ([facility]) [place] [address] [facility], [place], [address], [facility] REGISTR[facility] 07/10/2020 12:20:29 2020 hysterosalpingography completed Rico Pickett [facility] HIST[facility]IC SITES REGISTRAR 07/12/2020 14:06:23 2011 extraction of wisdom tooth completed Aleah Webber (TERMED) [facility] HISTORIC SITES REGISTRAR 07/04/2020 13:50:23 1998 tonsilectomy/adenoids completed Aleah Webber (TERMED) [facility] HISTORIC SITES REGISTRAR 07/04/2020 13:50:13 Imaging Results None recorded. Procedure Notes None recorded. Medical Equipment None Reported. Allergies Allergen ID Allergen Name Allergen Category Reaction Reaction Severity Criticality Documentation Date Start Date Code Code System Note Provider Name and Address Organization Details Recorded Time 19740604 Substance with sulfonami de structure and antibacte rial mechanism of action (substanc e) medicatio n Not available Not available Not available 09/07/2020 96629 8003 SNOMED Teresa Will null, [place] - [facility] 12:41:32 19740605 Product containin g penicilli n (product) medicatio n Not available Not available Not available 09/07/2020 41726 8001 SNOMED Teresa Will null, [place] - [facility] 12:41:43 Medications Name Sig Start Date Stop [...] 10,000 unit IM powder for solution Inject 48640 units as needed by intramusc ular route. [...] Updated DateTime 03/29/2021 172.72 cm 25.5 kg/m2 56478.52 g 118 mm[Hg] 70 mm[Hg] Katelynn Ko( TERM) [facility] Lieberman [facility] REGISTRAR 08:59:40 Social History Question Answer Notes LastModified by Organizat ion Details LastModified Time Tobacco Smoking Status Never Smoker [facility] Burnett [facility] 09/07/2020 12:42:14 What Is Your Level Of Caffeine Consumption? Occasional 2c/wk [email or web address] Information not available 03/29/2021 Which Illicit Or Recreational Drugs Have You Used? None Information not available 03/29/2021 History Of Domestic Violence No Information no t available 09/07/2020 Spouse/Partners Name Faustino Information not available 09/07/2020 Marital Status [email or web address] Informati on not available 03/29/2021 What Is Your Relationship Status? [email or web address] Information not available 03/29/2021 Are You Sexually Active? Yes [email or web address] Information not available 03/29/2021 Sex: Unknown Functional Status Question Answer Note LastModified by Organizat ion Details LastModified Time Do you use any illicit or recreational drugs? No [email or web address] Information not available 03/29/2021 What is your level of alcohol consumption? Occasional 1dr/mo Information not available 09/07/2020 What is your occupation? [employer] Information not available 09/07/2020 What is your exercise level? Moderate [email or web address] Information not available 03/29/2021 Mental Status None recorded. Family History Relationship Description Onset Age of this Age Resolved Age Notes LastModified by Organization Details LastModified Time Father Depressive disorder [email or web address] Not available 2020 13:51:19 Mother Depressive disorder [email or web address] Not available 2020 13:51:19 Brother Depressive disorder [email or web address] Not available 2020 13:51:19 Sister Depressive disorder [email or web address] Not available 2020 13:51:19 Maternal Grandmother Acute stroke [email or web address] Not available 03/29/2021 08:54:08 Maternal Grandfather Acute stroke [email or web address] Not available 03/29/2021 08:54:08 Maternal Grandfather Family history of Cardiovascul ar disease [email or web address] Not available 03/29 08:54:08 Medical History No [...] SNOMED-CT Code Diagnosis ICD10 Code Diagnosis Note [id number] HDRUV FAIRBANKS MD [id number] ,[address] [place] [address] 07/04/2020 13:30:04 07/04/2020 14:44:32 Unexplained infertility 986566237 N97.9 I spent a significan t amount [...] discussed, she will check insurance coverage. Reproducti ve care management [id number] Z31.9 [id number] JAIME MCLAUGHLIN MD [id number] THDALE_ED KATIA [address] [place] [address],[address] [place] [address] 07/10/2020 09:48:06 07/10/2020 12:38:31 Female infertility 7930852 N97.9 HSG completed and normal pt will call w/ next menses for an OV adn treatment plan [id number] LANI KWONG [facility] [id number] THDALE_[address] ,[address] [place] [address] 08/01/2020 13:11:51 08/01/2020 14:38:21 Unexplained infertility [id number] N97.8 [id number] JOHN THOMPSON MD [id number]_LUS [address] ,[address] [place] [address] 08/01/2020 13:11:03 08/03/2020 15:21:24 Fertility problem 98280264 N97.[id number] [facility]_IBE [address] ,[address] [place] [address] 08/10/2020 08:21:45 08/10/2020 11:05:08 Female infertility [id number] N97.9 [id number] JOHN THOMPSON MD [id number] [address] ,[address] [place] [address] 08/10/2020 08:18:34 08/14/2020 17:44:57 Fertility problem [id number] N97.9 [id number] [facility]I [facility]ONG [facility] HO066_FAU [address] ,[address] [facility] [place] [address] 08/29/2020 08:25:24 08/29/2020 11:18:45 Female infertility [id number] N97.9 [id number] CATE HAUSER MD [id number]_AQI THD[place]_[facility] [address] [facility] [address] ,[address] [place] [address] 08/29/2020 08:23:04 08/29/2020 09:05:13 Fertility problem 69642224 N97.9 [id number] CATE HAUSER MD [id number] [facility] [address] [facility] [address] ,[address] [place] [address] 09/07/2020 13:22:59 09/07/2020 14:16:52 Fertility problem [id number] N97.9 [id number] ASHLEY WEBER, [facility]W987_GLF [facility] [address] [facility] [address] ,[address] [place] [address] 09/07/2020 13:25:44 09/07/2020 15:18:12 Female infertility [id number] N97.9 [id number] LANI KWONG, [facility] [id number] [facility] [address] [facility] [address] ,[address] [place] [address] 09/08/2020 11:16:44 09/08/2020 12:04:58 Female infertility [id number] N97.9 [id number] JOHN THOMPSON MD [id number] [facility] [address] [facility] RORYCARMEL MOREJONV[address] ,[address] [place] [address] 09/27/2020 13:20:54 09/27/2020 13:52:24 Fertility problem 26375305 N97.9 [id number] ASHLEY WEBER, [facility]ENTERYE213_JKV [facility] [address] [facility] R[address]CARM[address] MORE[address] ,[address] [place] [address] 09/27/2020 13:22:49 09/27/2020 14:50:04 Female infertility [id number] N97.9 [id number] ASHLEY WEBER, [facility]ENTERWG595_HLB [facility] [address] [place] [address] 10/04/2020 08:27:06 10/04/2020 15:22:55 Female infertility [id number] N97.9 [id number] CATE HAUSER MD FO649_AZE THDALE_[address] ,[address] [place] [address] 10/04/2020 08:24:58 10/04/2020 09:52:16 Fertility problem [id number] N97.9 [id number] ASHLEY WEBER, [facility] CENTERBA042_KVF [address] [facility] ,[address] [place] [address] 10/11/2020 08:25:48 10/11/2020 10:01:24 Female infertility 4562866 N97.9 [id number] CATE HAUSER MD [id number] [address] [facility] ,[address] [place] [address] 10/11/2020 08:23:04 10/11/2020 09:17:04 Fertility problem 12214000 N97.9 [id number] ASHLEY WEBER, [facility]ENTERPL260_RSX [address] [facility]ENTERJorge ,[address] [place] [address] 10/12/2020 10:53:17 10/12/2020 12:31:05 Artificial insemination [id number] Z31.83 [id number] MD NICKIE BAILON004_SOU THDALE_ED KATIA [address], [address] [place] [address] 11/01/2020 14:21:56 11/07/2020 13:30:29 Fertility problem [id number] N97.9 [id number] ERIBERTO HANDY, ELVIRA LZ419_JYD THD[place]_ED KATIA [address], [address] [place] [address] 11/01/2020 14:44:50 11/02/2020 14:26:53 Fertility problem [id number] N97.9 See discussion notes. [id number] MD NICKIE LABOY004_[address] ,[address] [place] [address] 12/29/2020 13:26:57 12/29/2020 14:26:28 Primary infertility [id number] N97.9 Follicle study day 12. Plan ovidrel, IUI, and progestero ne. Will likely need Estradiol 2 mg for EC. I spent a total of 20 minutes providing care for this patient including: preparing to see the patient, obtaining a medical history, completing a medically appropriat e physical exam, completing documentat ion of visit informatio n and plans in the EMR, counseling the patient and/or caregiver regarding her diagnosis, treatment options and follow up plans, as well as any necessary communicat ion of subsequent test results to the patient, , , [id number] MD CARLEE LABOY_[facility]A[address] ,[address] [place] [address] 12/29/2020 13:25:08 12/29/2020 14:26:44 Female infertility [id number] N97.9 [id number] MD NICKIE LABOY004_[address] ,[address] [place] [address] 01/08/2021 13:27:26 01/08/2021 14:03:55 Fertility problem [id number] N97.0 [id number] MD CARLEE LABOY_[facility]ILL[facility]A[address] ,[address] [place] [address] 01/08/2021 14:44:14 01/08/2021 15:55:33 Female infertility 0414368 N97.9 Trigger shot tomorrow and IUI on Friday. [id number] MD CARLEE LABOY_[facility]A[address] ,[facility] 393 [facility] [address] 01/09/2021 12:50:49 01/09/2021 15:05:05 [id number] JAIME MCLAUGHLIN MD [id number] [facility] ,[address] [place] [address] 01/10/2021 10:50:08 01/10/2021 12:24:09 Female infertility [id number] N97.9 IUI completedp rogesteron e supplement ation through 12 weeks of or until mensesCOVI D vaccine strongly recommende d Artificial insemination [id number] Z31.83 [id number] ERIBERTO HANDY CNM [id number] ,[facility] [address] [place] [address] 03/29/2021 08:47:31 03/29/2021 11:05:59 Gynecologic examination [id number] Z01.419 Health Concerns Section Related Observation LastModified by Organization Detai ls LastModified Time None Recorded Concern Status LastModified by Organization Details LastModified Time None Recorded Advance Directives Directive None Recorded Payers Insurance Date Sequence Insurance Name Policy Number Policy Hathaway Covered Member ID Hathaway Member ID Guarantor Name 01/05/2022 1 [facility] [id number] Hellen Sigala [id number] Hellen Sigala Notes Date Note Type Note Provider Name and Address Organization Details Recorded Time 01/08/2021 text/html Cycle #: 4 Date of Cycle Day 1:___10/30/2020 Cycle Day: _13 Cycle Medications: Clomid 50mg Clomid 100mg Clomid 150mg letrozole 2.5mg letrozole 5mg letrozole 7.5mg Follistim hansa pur 75mg menopur 150mg menopur 225mg menopur 300mg dexamethasone 0.25mg Clomid 50mg Medication taken on: days 3-7 Ultrasound findings: Endometrium: trilaminar non-trila minar endometrial thickness 7.41 mm Left Ovarian Follicles: 17.8 mm Right Ovarian Follicles: <6 >6 20.1mm, Fluid in Cul-de-sac: Trigger Shot: yesIt did not arrive today so pt will get the shot tomorrow and IUI on Friday. Insemination: yes Estradiol Level: 44.7 on 07/04/2020 Semen Analysis: yes Tubal Patency Study: normal Lab Results: normal abnormal decl naty scheduled proge sterone 10.6 Results of Cycle: [place] [address] [address], [place], [address], [facility] - [facility] HISTORIC SITES REGISTRAR 01/08/2021 16:02:27 01/10/2021 text/html here for IUI - [place] [address], [place], [address], [facility] [employer] [facility] HISTORIC SITES REGISTRAR 01/10/2021 11:45:54 03/29/2021 text/html ANNUAL GYNECOLOG IC EXAMThis patient presents today for an annual gynecologic exam. Her periods are regular.The bleeding isheavy.She reports severe dysmenorrhea. She reports no changes to breasts. The patient denies vaginal itching and burning. The patient's past medical and surgical history were reviewed again today. The medication and allergy list was made current. SEXUAL HISTORYShe is sexually active. The patient is not using contraception to prevent . She denies new partners since last visit. She reports feeling safe in her relationships. The patient declines STD testing today. HEALTHCARE MAINTENANCEThe patient's last pap smear was unknown. I reviewed with the patient today ASCCP guidelines for recommended frequency of pap smear [...] has no additional complaints. ERIBERTO HANDY CNM [address], [place], [address], [facility] - [facility] HISTORIC SITES REGISTRAR 03/29/2021 11:01:17 OBGyn Episode No OBEpisode recorded.
--- OUTSIDE RECORDS SUMMARY | 2024-09-30 19:01 | XMS_ITS | Data Portability ---
Author Organization HENNY - [facility], [id number] Address [address] [place] [address] [address] [place] [address] Assessment No assessment recorded. Plan of Treatment Reminders Order Date Submit Date Provider Last Modified By Organization Details Last Modified Time Details Appointments None recorded. Lab cytology report, thin prep, smear or scraping, cervical or vaginal 2020 [facility], [address], [place], [address], 18:08:05 Referral None recorded. Procedures None recorded. Surgeries None recorded. Imaging US, ovary, for follicular monitoring 2020 021 [email or web address] 9 [id number] le_william, [address], [address], [place], [address], 16:16:18 Medication Orders Prometrium 200 mg capsule 2020 [id number], [address] [place], [place], [phone], 11:45:28 Patient TargetsNo targets recorded. Patient Instructions Encounter Date Encounter Id Patient Instructions Last Modified By Organization Details Last Modified Time 03/29/2021 [id number] - Encouraged breast self-awareness and monthly breast [...] OR MALIG YEIMI . Not Available [facility] ([facility]) [address] [facility], [place], [address], 04/03/2021 18:08:05 03/29/20 21 04/03/2021 IGP, APTIM A HPV, RFX 16/18 ,45 category: NIL Negat aris for Intra epith elial Lesio n Not Available [facility] ([facility]) [address] [facility], [place], [address], 04/03/2021 18:08:05 03/29/20 21 04/03/2021 IGP, APTIM A HPV, RFX 16/18 ,45 adequacy: SECNI Satis facto ry for evalu ation . No endoc ervic al compo nent is ident ified . Not Available [facility] ([facility]) [address] [facility], [place], [address], 04/03/2021 18:08:05 03/29/20 21 04/03/2021 IGP, APTIM A HPV, RFX 16/18 ,45 clinician provided ICD10: Mahi gómez Z01.4 19 Not Available [facility] ([facility]) [address] [place], [address], 04/03/2021 18:08:05 03/29/20 21 04/03/2021 IGP, APTIM A HPV, RFX 16/18 ,45 performed by: Lisa Gomez sa (ASCP ) Not Available [facility] ([facility]) [address] [place], [address], 04/03/2021 18:08:05 03/29/20 21 04/03/2021 IGP, APTIM [...] ts do occur . Not Available [facility] ([facility]) [address] [facility], [place], [address], 04/03/2021 18:08:05 03/29/20 21 04/03/2021 IGP, APTIM A HPV, RFX 16/18 ,45 test methodology: Mahi t This liqui d based ThinP rep(R ) pap test was scree chelsi with the use of an image guide jorge grant. Not Available [facility] ([facility]) [address] [facility], [place], [address], 04/03/2021 18:08:05 03/29/20 21 04/03/2021 IGP, APTIM A HPV, RFX 16/18 ,45 HPV aptima Negati ve negati ve This nucle ic acid ampli ficat ion test detec ts fourt een high- risk HPV types (16,1 8,31, 33,35 ,39,4 5,51, 52,56 ,58,5 9,66, 68) witho ut diffe renti ation . Not Available [facility] ([facility]) [address] [facility], [place], [address], 04/03/2021 18:08:05 12/30/19 21 12/29/2020 US, ovary , for folli cular monit oring No observ ation record ed. [email or web address] Gabi [address], [place], [address], 01/02/2021 11:46:58 01/09/20 21 01/08/2021 US, ovary , for folli cular monit oring No observ ation record ed. [email or web address] [address], [place], [address], 05/10/2021 16:23:56 Result Notes None recorded. Procedures Surgical History Date Name Laterality Status Provider Name and Address Organization Details Recorded Time 2020 Date of Last Pap Smear completed Rico Pickett [facility] 04/04/2021 11:39:31 2020 Intrauterine insemination ([facility]) [place] [address] [facility],[address], [place], [address], [facility] 01/10/2021 11:43:33 2020 Intrauterine insemination ([facility]) completed ASHLEY WEBER DANIEL [address] [facility],[address], [place], [address], [facility] 10/12/2020 12:10:47 2020 Intrauterine insemination ([facility]) completed [facility] [address] [facility],[address], [place], [address], [facility] 09/08/2020 11:58:19 2020 Hysterosalpingogram (HSG) ([facility]) [place] [address] [facility],[address], [place], [address], [facility] 07/10/2020 12:20:29 2020 hysterosalpingography completed Rico Pickett [facility] 07/12/2020 14:06:23 2011 extraction of wisdom tooth completed Aleah Webber (TERMED) [facility] 07/04/2020 13:50:23 1998 tonsilectomy/adenoids completed Aleah Webber (TERMED) [facility] 07/04/2020 13:50:13 Imaging Results None recorded. Procedure [...] Not available Not available Not available 09/07/2020 [id number] SNOMED Teresa Will null, [place] - [facility] 12:41:32 [id number] Product containin g penicilli n (product) medicatio n Not available Not available Not available 09/07/2020 [id number] SNOMED Teresa Will null, [place] - [facility] 12:41:43 Medications Name Sig Start Date Stop [...] 10,000 unit IM powder for solution Inject 24575 units as needed by intramusc ular route. [...] Updated DateTime 03/29/2021 172.72 cm 25.5 kg/m2 83226.52 g 118 mm[Hg] 70 mm[Hg] Katelynn Ko( TERM) [facility] 08:59:40 Social History Question Answer Notes LastModified by Organizat ion Details LastModified Time Tobacco Smoking Status Never Smoker [facility] 09/07/2020 12:42:14 What Is Your Level Of Caffeine Consumption? Occasional 2c/wk [email or web address] Information not available 03/29/2021 Which Illicit Or Recreational Drugs Have You Used? None [email or web address] Information not available 03/29/2021 History Of Domestic Violence No Information no t available 09/07/2020 Spouse/Partners Name Faustino Information not available 09/07/2020 Marital Status [email or web address] Informati on not available 03/29/2021 What Is Your Relationship Status? [email or web address] Information not available 03/29/2021 Are You Sexually Active? Yes [email or web address] Information not available 03/29/2021 Sex: Unknown Functional Status Question Answer Note LastModified by Organizat ion Details LastModified Time Do you use any illicit or recreational drugs? No [email or web address] Information not available 03/29/2021 What is your level of alcohol consumption? Occasional 1dr/mo Information not available 09/07/2020 What is your occupation? [employer] Information not available 09/07/2020 What is your exercise level? Moderate [email or web address] Information not available 03/29/2021 Mental Status None recorded. Family History Relationship Description Onset Age of this Age Resolved Age Notes LastModified by Organization Details LastModified Time Father Depressive disorder [email or web address] Not available 2020 13:51:19 Mother Depressive disorder [email or web address] Not available 2020 13:51:19 Brother Depressive disorder [email or web address] Not available 2020 13:51:19 Sister Depressive disorder [email or web address] Not available 2020 13:51:19 Maternal Grandmother Acute stroke [email or web address] Not available 03/29/2021 08:54:08 Maternal Grandfather Acute stroke [email or web address] Not available 03/29/2021 08:54:08 Maternal Grandfather Family history of Cardiovascul ar disease [email or web address] Not available 03/29 08:54:08 Medical History No [...] SNOMED-CT Code Diagnosis ICD10 Code Diagnosis Note [id number] DHRUV FAIRBANKS MD [id number] ,[address] [place] [address] 07/04/2020 13:30:04 07/04/2020 14:44:32 Unexplained infertility 935152027 N97.9 I spent a significan t amount [...] check insurance coverage. Reproducti ve care management [id number] Z31.9 [id number] JAIME MCLAUGHLIN MD [id number] THDALE_ED KATIA [address] [place] [address],[address] [place] [address] 07/10/2020 09:48:06 07/10/2020 12:38:31 Female infertility 0429814 N97.9 HSG completed and normal pt will call w/ next menses for an OV adn treatment plan [id number] LANI KWONG [facility] UD061_LUB THDALE_[address] ,[address] [place] [address] 08/01/2020 13:11:51 08/01/2020 14:38:21 Unexplained infertility [id number] N97.8 [id number] JOHN THOMPSON MD AN101_ZJS [address] ,[address] [facility] [place] [address] 08/01/2020 13:11:03 08/03/2020 15:21:24 Fertility problem 40773690 N97.[id number] [facility]XOW [address] ,[address] [facility] [place] [address] 08/10/2020 08:21:45 08/10/2020 11:05:08 Female infertility 0010536 N97.9 [id number] JOHN THOMPSON MD BO671_WBO [address] ,[address] [facility] [address] 08/10/2020 08:18:34 08/14/2020 17:44:57 Fertility problem 43113342 N97.9 [id number] LANI KWONG [facility] XC813_DDO [address] ,[address] [facility] [place] [place] [address] 08/29/2020 08:25:24 08/29/2020 11:18:45 Female infertility [id number] N97.9 [id number] CATE HAUSER MD MQ251_ROC THDALE_[facility] [address] [facility] [address] ,[address] [place] [address] 08/29/2020 08:23:04 08/29/2020 09:05:13 Fertility problem 04090061 N97.9 [id number] CATE HAUSER MD EF580[facility]STL [facility] [address] [facility] [address] MOREJONVARD ,[address] [place] [address] 09/07/2020 13:22:59 09/07/2020 14:16:52 Fertility problem 23071487 N97.9 [id number] ASHLEY WEBER, [facility]BSS [facility] [address] [facility] [address] ,[address] [place] [address] 09/07/2020 13:25:44 09/07/2020 15:18:12 Female infertility [id number] N97.9 [id number] LANI KWONG, [facility] HV635_CYM [facility] [address] [facility] [address] ,[address] [place] [address] 09/08/2020 11:16:44 09/08/2020 12:04:58 Female infertility 0184406 N97.9 [id number] JOHN THOMPSON MD TA316_VES [facility] [address] [facility] RORYCARMEL MOREJONVARD ,[address] [place] [address] 09/27/2020 13:20:54 09/27/2020 13:52:24 Fertility problem [id number] N97.9 [id number] ASHLEY WEBER, [facility]IAH [facility] [address] [facility] RORYCARMEL MOREJONVARD ,[address] [place] [address] 09/27/2020 13:22:49 09/27/2020 14:50:04 Female infertility [id number] N97.9 [id number] ASHLEY WEBER, [facility]QC[facility]OQK [facility] [address] [address] [address] ,[address] [place] [address] 10/04/2020 08:27:06 10/04/2020 15:22:55 Female infertility [id number] N97.9 [id number] CATE HAUSER MD GX541_HEY THDALE_[address] V[address]CE [address] ,[address] [place] [address] 10/04/2020 08:24:58 10/04/2020 09:52:16 Fertility problem 88278778 N97.9 [id number] ASHLEY WEBER, [facility]HS999_PXQ THDALE[address] [facility] MAR[facility] ,[address] [place] [address] 10/11/2020 08:25:48 10/11/2020 10:01:24 Female infertility 1359252 N97.9 [id number] CATE HAUSER MD MV120_BBI THDALE[address] [facility]ENTERJorge ,[address] [place] [address] 10/11/2020 08:23:04 10/11/2020 09:17:04 Fertility problem 82560671 N97.9 [id number] ASHLEY WEBER, [facility]ITALIG918_XTH [address] [facility]orge ,[address] [place] [address] 10/12/2020 10:53:17 10/12/2020 12:31:05 Artificial insemination [id number] Z31.83 [id number] MD NICKIE BAILON004_SOU THDALE_ED KATIA [address], [address] [place] [address] 11/01/2020 14:21:56 11/07/2020 13:30:29 Fertility problem 28509541 N97.9 [id number] ERIBERTO HANDY, ELVIRA ZE244_QIO THDALE_ED KATIA [address], [address] [place] [address] 11/01/2020 14:44:50 11/02/2020 14:26:53 Fertility problem 74540385 N97.9 See discussion notes. [id number] MD NICKIE LABOY004_[address] ,[address] [place] [address] 12/29/2020 13:26:57 12/29/2020 14:26:28 Primary infertility [id number] N97.9 Follicle study day 12. Plan ovidrel, [...] test results to the patient, , , [id number] MD CARLEE [facility]OY_[facility] ,[address] [place] [address] 12/29/2020 13:25:08 12/29/2020 14:26:44 Female infertility [id number] N97.9 [id number] MD NICKIE LABOY004_[address] ,[address] [place] [address] 01/08/2021 13:27:26 01/08/2021 14:03:55 Fertility problem 96304874 N97.0 [id number] MD CARLEE [facility]OY_[facility] ,[address] [place] [address] 01/08/2021 14:44:14 01/08/2021 15:55:33 Female infertility 0376758 N97.9 Trigger shot tomorrow and IUI on Friday. [id number] MD CARLEE LABOY_[facility] ,[facility] [address] [facility] [place] [address] 01/09/2021 12:50:49 01/09/2021 15:05:05 [id number] JAIME MCLAUGHLIN MD [id number] [facility] ,[address] [place] [address] 01/10/2021 10:50:08 01/10/2021 12:24:09 Female infertility 0839317 N97.9 IUI completedp rogesteron e supplement ation through 12 weeks of or until mensesCOVI D vaccine strongly recommende d Artificial insemination [id number] Z31.83 [id number] ERIBERTO HANDY CNM OK924_UAH[address] ,[facility] [address] [place] [address] 03/29/2021 08:47:31 03/29/2021 11:05:59 Gynecologic examination [id number] Z01.419 Health Concerns Section Related Observation LastModified by Organization Detai ls LastModified Time None Recorded Concern Status LastModified by Organization Details LastModified Time None Recorded Advance Directives Directive None Recorded Payers Insurance Date Sequence Insurance Name Policy Number Policy Hathaway Covered Member ID Hathaway Member ID Guarantor Name 01/05/2022 1 [facility] [id number] Hellen Sigala [id number] Hellen Sigala Notes Date Note Type Note [...] 10.6 Results [place]: [place] [id number] [address], [place], [address], [facility] - [facility] 01/08/2021 16:02:27 01/10/2021 text/html here for IUI - [place] [address] [address], [place], [address], [facility] [employer] [facility] [employer] 01/10/2021 11:45:54 03/29/2021 text/html ANNUAL GYNECOLOG IC [...] has no additional complaints. ERIBERTO HANDY CNM [address], [place], [address], [facility] - [facility] 03/29/2021 11:01:17 OBGyn Episode No OBEpisode recorded.
--- OUTSIDE RECORDS SUMMARY | 2024-09-30 19:01 | XMS_ITS | Clinical Summary ---
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 Gender Identity Not on file Sexual Orientation [...] HEPATITIS C SCREENING 09/07/2007 PAP 2010 DTAP/TDAP/TD VACCINE (3 - Td or Tdap) 2017 09/07/2007, 10/15/2001 YEARLY PREVENTIVE VISIT 03/18/2020 03/18/2019 DIABETES SCREENING 11/16/2021 11/16/2018 COVID-19 VACCINE (1 - 2023-2 5 season) 2023 PHQ-2 (once per calendar year) 2024 INFLUENZA VACCINE (Season Ended) 2024 02/19/2022, 03/18/2019 ZOSTER VACCINE (1 of 2) 09/07/2039 HEPATITIS B VACCINE Completed 06/23/2002, 11/23/2001, 10/15/2001 MENINGITIS VACCINE Completed 09/07/2007, 09/07/2007 HPV VACCINE Completed 09/02/2011, 07/12/2008, 09/07/2007 PNEUMOCOCCAL VACCINE: PEDIATRICS (0 to 5 YEARS) AND AT-RISK PATIENTS (6 to 49 YEARS) Aged Out No longer eligible b ased on patient's age to complete this topic Procedures Procedure Name Priority Date/Time Associated Diagnosis Comments COMPREHENSIVE METABOLIC PANEL STAT 11/16/2018 2:16 AM CDT from Last 3 Months or Most Recently Relevant to Health Maintenance Results * (ABNORMAL) Comprehensive metabolic panel (11/16/2018 2:16 AM CDT) Sodium 139 133 - 144 mmol/L 11/16/2018 2:36 AM [facility] Potassium 3.7 3.4 - 5.3 mmol/L 11/16/2018 2:36 AM [facility] Chloride 108 94 - 109 mmol/L 11/16/2018 2:36 AM [facility] Carbon Dioxide 25 20 - 32 mmol/L 11/16/2018 2:42 AM [facility] Anion Gap 6 3 - 14 mmol/L 11/16/2018 2:42 AM [facility] Glucose 100(H) 70 - 99 mg/dL 11/16/2018 2:42 AM [facility] Urea Nitrogen 9 7 - 30 mg/dL 11/16/2018 2:42 AM [facility] Creatinine 0.88 0.52 - 1.04 mg/dL 11/16/2018 2:42 AM [facility] GFR Estimate 89 >60 mL/min/{1. 73_m2} 11/16/2018 2:42 AM [facility] Comment: Non GFR Calc Starting 04/14/2018, serum creatinine based estimated GFR (eGFR) will be calculated using the Chronic Kidney Disease Epidemiology Collaboration (CKD-EPI) equation. GFR Estimate If Black >90 >60 mL/min/{1. 73_m2} 11/16/2018 2:42 AM [facility] Comment: GFR Calc Starting 04/14/2018, serum creatinine based estimated GFR (eGFR) will be calculated using the Chronic Kidney Disease Epidemiology Collaboration (CKD-EPI) equation. Calcium 8.7 8.5 - 10.1 mg/dL 11/16/2018 2:42 AM [facility] Bilirubin Total 0.5 0.2 - 1.3 mg/dL 11/16/2018 2:44 AM [facility] Albumin 4.3 3.4 - 5.0 g/dL 11/16/2018 2:44 AM [facility] Protein Total 7.6 6.8 - 8.8 g/dL 11/16/2018 2:44 AM [facility] Alkaline Phosphatase 57 40 - 150 U/L 11/16/2018 2:44 AM [facility] ALT 17 0 - 50 U/L 11/16/2018 2:44 AM [facility] AST 12 0 - 45 U/L 11/16/2018 2:44 AM [facility] Blood specimen (specimen) 11/16/2018 2:16 AM CDT 11/16/2018 2:22 AM CDT us Torsten Madden MD LAB - BLOOD ORDERABLES Final Re sult [facility] [place] [address], [facility] [phone] from Last 3 Months or Most Recently Relevant to Health Maintenance [facility] Care Teams 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
[2024-09-30 19:11] VITALS: BP 110/68; PULSE 68; RESP 18; TEMP 36.8; O2SAT 99
--- NOTE | 2024-09-30 19:11 | CRLHL7_ITS ---
For Patients: As a result of the Cures Act, medical imaging exams and procedure reports are released immediately into your electronic medical record. You may view this report before your referring provider. If you have questions, please contact your health care provider. INDICATION: Headaches COMPARISON: None TECHNIQUE: CT of the head without contrast. FINDINGS: Brain Parenchyma: No acute infarct, acute intracranial hemorrhage, mass effect, or midline shift. Ventricles: No hydrocephalus. Extra-axial Spaces: No abnormal fluid collection. Paranasal sinuses: No significant mucosal thickening. Orbits: Unremarkable Mastoid Sinuses: Unremarkable Cranium: No acute fracture Soft tissues: Unremarkable IMPRESSION: No CT evidence of an acute intracranial process. Please note that all CT scans at this facility use dose modulation, iterative reconstruction, and/or weight-based dosing when appropriate to reduce radiation dose to as low as reasonably achievable. Dictated by Marin Vaca MD @ 09/30/2024 7:49:15 PM (Electronically Signed)
--- NOTE | 2024-09-30 19:11 | CRLHL7_ITS ---
For Patients: As a result of the Cures Act, medical imaging exams and procedure reports are released immediately into your electronic medical record. You may view this report before your referring provider. If you have questions, please contact your health care provider. INDICATION: Shortness of breath TECHNIQUE: Chest radiograph 2 views COMPARISON: None FINDINGS: Mediastinum: The mediastinum is normal in appearance. The heart silhouette is normal in size and morphology. Lung: Both lungs are unremarkable in appearance. No sign of pleural effusion seen. No pneumothorax is identified. Bone and Soft tissue: Unremarkable for age. IMPRESSION: 1. No acute cardiopulmonary disease is seen. Dictated by: Kevin Arreola MD @ 09/30/2024 20:39:41 (Electronically Signed)
[2024-09-30 19:27] LABS: Basophils Percent Auto 0.7 % (0.0-3.0); Hematocrit* 38.9 % (33.0-51.0); Hemoglobin* 12.7 gm/dL (12.0-16.0); Lymphocytes Percent Auto 43.3 % (20-44); Mean Corpuscular HGB Conc 33 gm/dL (32-36); Mean Corpuscular Hemoglobin 29 pg (26-34); Mean Corpuscular Volume 87 fL (80-100); Monocytes Percent Auto 9.6 % (0.0-11.0); Neutrophils Percent Auto 43.4 % (42.0-72.0); Platelet Count* 224 K/uL (140-440); Red Blood Count* 4.45 m/uL (4.00-5.20); White Blood Count* 4.36 K/uL (4.50-11.00)
[2024-09-30 19:32] LABS: Slide Review Reflex No
[2024-09-30 19:34] LABS: Troponin, Point-of-Care* 0.01 ng/ml (0.01-0.04)
[2024-09-30 19:50] LABS: Albumin* 4.7 g/dL (3.3-5.0); Chloride* 106 mmol/L (96-114); Potassium* 3.8 mmol/L (3.6-5.1); Sodium* 140 mmol/L (135-149)
[2024-09-30 19:53] LABS: Alanine Aminotransferase* 25 U/L (4-35); Alkaline Phosphatase* 82 U/L (40-150); Anion Gap 9 mEq/L (7-15); Aspartate Amino Transferase* 28 U/L (12-35); Bilirubin Total* 0.4 mg/dL (0.1-1.5); Blood Urea Nitrogen* 23 mg/dL (5-24); Carbon Dioxide* 25 mmol/L (20-32); Est. Creatinine Clearance* 79.21; Estimated Glomerular Filt Rate 75 ml/min; Total Protein* 7.5 g/dL (6.0-8.3)
[2024-09-30 19:54] LABS: Calcium* 9.7 mg/dL (8.4-10.6); Glucose* 103 mg/dL (60-115)
--- NOTE | 2024-09-30 19:54 | ED_ITS ---
HPI - Weakness General Date Seen: 09/30/24 Chief complaint: Unspecified Complaint, Adult Stated complaint: lightheaded, blurred vision, brain fog Time Seen by Provider: 09/30/24 18:47 Source: patient, family, RN notes reviewed and old records reviewed Mode of arrival: ambulatory Limitations: no limitations History of Present Illness HPI Narrative: Patient is a 34-year-old female who presents here with her for multiple complaints such as brain fog, weakness, visual changes, and headaches on and off, she describes is all after giving to her child, she was on medication for preeclampsia, and I actually saw her here in the emergency room. She has had these complaints on off but they seem to be increasing over the last week or so. She saw chiropractor today who wanted to hurt occur be seen for possible POTS syndrome verses cardiomyopathy. She had does not really have a history of shortness of breath, or tachycardia or chest pain at all. No history of previous clots, she did a home delivery. She complains of times of having a hard time forming her words or concentrating. Denies any significant depression, or anxiety associated with this but I do see her chart that she has been diagnosed with anxiety. She has been diagnosed by homeopathic physician a deficiency iron recommended iron infusions of which she has done 2 so far. There was a history of a fair bit of hemorrhage. She denies any current of bleeding, vomiting blood black stools or anything else. Complaint: generalized weakness and lack of energy Onset (ago): month(s) Duration: progressively worsening Location: generalized Migration: none Severity: moderate Relieving factors: none Exacerbating factors: none Associated symptoms: confusion, easy bruising and headaches Related Data Home Medications ?Medication ?Instructions ?Recorded ?Confirmed docosahexaenoic acid 200 mg 200 mg PO QHS 03/26/24 capsule ( DHA) valacyclovir 1 gram tablet 2,000 mg PO Q12H PRN 08/11/24 ferrous sulfate 325 mg (65 mg mg PO 07/02/24 08/11/24 iron)/5 mL oral solution Previous Rx's ?Medication ?Instructions ?Recorded escitalopram oxalate 20 mg tablet 20 mg PO DAILY #90 t abs 09/03/24 Allergies Allergy/AdvReac Type Severity Reaction Status Date / Time Penicillins Allergy Mild Rash Verified 08/11/24 08:05 Sulfa (Sulfonamide Allergy Mild Rash Verified 08/11/24 08:05 Antibiotics) Review of Systems Status of ROS: Reports: 10 or more systems reviewed and unremarkable except as noted in History and below [facility] Medical History Depression ?F32.A - Depression, unspecified (ICD-10) Anxiety ?F41.9 - Anxiety disorder, unspecified (ICD-10) Retained placenta ?O73.0 - Retained placenta without hemorrhage (ICD-10) Insomnia ?G47.00 - Insomnia, unspecified (ICD-10) Heartburn ?R12 - Heartburn (ICD-10) Swallowing difficulty ?R13.10 - Dysphagia, unspecified (ICD-10) 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 - Herpesviral vesicular dermatitis (ICD-10) Normal spontaneous vaginal delivery (04/18/22) ?O80 - Encounter for full-term uncomplicated delivery (ICD-10) resulting from in vitro fertilization (03/2022) ?O09.819 - Supervision of resulting from assisted reproductive technology, unspecified trimester (ICD-10) Surgical History [place] teeth extracted (2011) ?K08.409 - Partial loss of teeth, unspecified cause, unspecified class (ICD- 10) Hx of tonsillectomy (1998) ?Z90.89 - Acquired absence of other organs (ICD-10) Family History Mother Melanoma Cervical cancer Maternal Grandfather Heart disease Prostate cancer Social History Narrative: SOCIAL Education: Bachelors degree 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 Partner: Faustino, ; massage therapist Lives with: Eber Harmon Pets: 2 cats Abuse: Denies past/present Special Diet: Denies Ok with a blood transfusion: yes Culture or scientology beliefs: denies RISK FACTORS Exercise Times/wk: not routinely Hx of Depression and/or Anxiety/other mood disorder: Both hx meds for last few weeks of Seat Belt Use: Routinely Smoking: Denies past/present Alcohol/day: Denies while , rarely prior to Caffeine: Tea, mild Drug Use: Denies past/present Chicken Pox: Yes as a child MRSA: Denies What is your current living situation?: I presently have a place to live Problems where you live: no known problems In the past 12 months, utilities in danger of being shut off: no In past 12 months, lack of transportation kept you from medical appts, meetings, work, or getting things needed for daily living: no In the past 12 mos, have been you worried that your food would run out before you had money to buy more?: never true In the past 12 mos, the food you bought just didn't last and you didn't have money to buy more?: declined to answer Are you following a diet prescribed by a doctor: No Are you following a special diet: No Highest level of school completed/degree received: Bachelor's degree Physical activity type: walking, running and other Physical activity type details: HIIT Smoking Status: Never smoker Second hand tobacco smoke exposure: No How often do you have a drink containing alcohol: never AUDIT-C Alcohol total score: 0 Non-prescribed substance use: denies use Caffeine: No How often does anyone, including family, friends and others, physically hurt you : never How often does anyone, including family, friends and others, insult or talk down to you: never How often does anyone, including family, friends and others, threaten you with harm: never How often does anyone, including family, friends and others, scream or curse at you: never Exam Narrative: Exam Narrative: On examination in room 2 alert oriented x3 GCS is 15/15 pupils equal round reactive to light there is no rib evidence of any nystagmus, fundi appear normal TMs are normal oropharynx normal thyroid normal midline not enlarged, hydration status excellent cranial nerves 3-12 are normal, chest is good air entry bilaterally with no wheezing crackles noted heart sounds are normal, abdomen is soft there is no guarding no organomegaly bowel sounds are normal she moves all extremities independently well, she does have some bruises on her right upper leg, but these are fairly consistent with just normal, Const: Vital Signs, click to edit/add: Vital Signs - 24 hr 09/30/24 18:33 09/30/24 20:01 Temperature 97.1 F L Pulse Rate [Pulse Oximeter] 67 Pulse Rate [orthos tatic lying Right Pulse Oximeter] 54 L Pulse Rate [orthos tatic sitting Righ t Pulse Oximeter] 64 Pulse Rate [orthos tatic standing Rig ht Pulse Oximeter] 76 Respiratory Rate 18 Blood Pressure [Ri ght Upper Arm] 107/72 Blood Pressure [or thostatic lying Le ft Arm] 115/75 Blood Pressure [or thostatic sitting Left Arm] 112/80 Blood Pressure [or thostatic standing Left Arm] 118/86 Pulse Oximetry 99 Oxygen Delivery Me thod Room Air Documenting provider has reviewed patient's vital signs: yes Course Course ED Course: Discussed with the patient that her laboratory work was basically normal, troponin, D-dimer, basic metabolic profile CBC. EKG. Head CT and chest x-ray, I do not know what is going on, but I do believe her that she has these symptoms, I think follow-up with primary care, with further consideration is suggested, but tonight I do not see an emergency need to do anything else. She was reassured by this. Vital Signs Vital signs: Initial Vital Signs Temperature 97.1 F L 09/30/24 18:33 Temperature Source Temporal Artery Scan 09/30/24 18:33 Pulse Rate 67 09/30/24 18:33 Pulse Rhythm Regular 09/30/24 18:33 Respiratory Rate 18 09/30/24 18:33 Blood Pressure 107/72 09/30/24 18:33 Blood Pressure Mean 83 09/30/24 18:33 Blood Pressure Position Sitting 09/30/24 18:33 Pulse Oximetry 99 09/30/24 18:33 Oxygen Delivery Method Room Air 09/30/24 18:33 Vital Signs Temperature 97.1 F L 09/30/24 18:33 Pulse Rate 67 09/30/24 18:33 Respiratory Rate 18 09/30/24 18:33 Blood Pressure 107/72 09/30/24 18:33 Pulse Oximetry 99 09/30/24 18:33 Oxygen Delivery Method Room Air 09/30/24 18:33 Temperature 97.1 F L 09/30/24 18:33 Pulse Rate 54 L 09/30/24 20:01 Respiratory Rate 18 09/30/24 18:33 Blood Pressure 115/75 09/30/24 20:01 Pulse Oximetry 99 09/30/24 18:33 Oxygen Delivery Method Room Air 09/30/24 18:33 MDM - Weakness MDM Narrative Medical decision making narrative: Life-threatening differential diagnosis considered include stroke, coronary artery disease, pneumonia, and heart failure. Other differential diagnosis include but are not limited to electrolyte imbalances, anemia, medication reactions, and urinary tract infection Medical Records Attestation: I reviewed the patient's medical records. Lab Data Attestation: I reviewed the patient's lab results. Labs: Lab Results 09/30/24 Range/Units 19:20 WBC 4.36 L (4.50-11.00) K/uL RBC 4.45 (4.00-5.20) m/uL Hgb 12.7 (12.0-16.0) gm/dL Hct 38.9 (33.0-51.0) % MCV 87 (80-100) fL MCH 29 (26-34) pg MCHC 33 (32-36) gm/dL RDW Coeff of Gomez 13.0 (11.5-15.5) % Plt Count 224 (140-440) K/uL Neut % (Auto) 43.4 (42.0-72.0) % Lymph % (Auto) 43.3 (20-44) % [place] % (Auto) 9.6 (0.0-11.0) % Eos % (Auto) 3.0 (0.0-7.0) % Baso % (Auto) 0.7 (0.0-3.0) % Neut # (Auto) 1.90 (1.7-7.0) K/uL Lymph # (Auto) 1.90 (0.90-2.90) K/uL [place] # (Auto) 0.40 (0.00-0.90) K/UL Eos # (Auto) 0.10 (0.00-0.50) K/uL Baso # (Auto) 0.00 (0.00-0.30) K/uL Abs Immat Gran (auto) 0.00 (0.00-0.30) K/uL Imm/Tot Granulo (auto) 0.0 % D-Dimer Quant (PE/DVT) 0.00 (0.00-0.50) ug/ml Sodium 140 (135-149) mmol/L Potassium 3.8 (3.6-5.1) mmol/L Chloride 106 (96-114) mmol/L Carbon Dioxide 25 (20-32) mmol/L Anion Gap 9 (7-15) mEq/L BUN 23 (5-24) mg/dL Creatinine 1.0 (0.5-1.5) mg/dL Estimated Creat Clear 79.21 Estimated GFR 75 ml/min Glucose 103 (60-115) mg/dL Calcium 9.7 (8.4-10.6) mg/dL Total Bilirubin 0.4 (0.1-1.5) mg/dL AST 28 (12-35) U/L ALT 25 (4-35) U/L Alkaline Phosphatase 82 (40-150) U/L NT-Pro-B Natriuret Pep 70 (See Note) pg/mL Total Protein 7.5 (6.0-8.3) g/dL Albumin 4.7 (3.3-5.0) g/dL POC Troponin I 0.01 (0.01-0.04) ng/ml Imaging Data CT scan - head: Radiologist's impression: [place] [address] Diagnostic Imaging Report Patient: Hellen Sigala MR#: [id number] : 1990 Acct:[id number] Loc: ED Service Date: 09/30/[address]: Ordering Physician: Ac Man M.D. Date of Service: 09/30/24 Procedure(s): CT head/brain wo con Accession Number(s): [id number] cc: Provider,Not a Local; Ac Man M.D.~ For Patients: As a result of the Cures Act, medical imaging exams and procedure reports are released immediately into your electronic medical record. You may view this report before your referring provider. If you have questions, please contact your health care provider. INDICATION: Headaches COMPARISON: None TECHNIQUE: CT of the head without contrast. FINDINGS: Brain Parenchyma: No acute infarct, acute intracranial hemorrhage, mass effect, or midline shift. Ventricles: No hydrocephalus. Extra-axial Spaces: No abnormal fluid collection. Paranasal sinuses: No significant mucosal thickening. Orbits: Unremarkable Mastoid Sinuses: Unremarkable Cranium: No acute fracture Soft tissues: Unremarkable IMPRESSION: No CT evidence of an acute intracranial process. Please note that all CT scans at this facility use dose modulation, iterative reconstruction, and/or weight-based dosing when appropriate to reduce radiation dose to as low as reasonably achievable. Dictated by Marin Vaca MD @ 09/30/2024 7:49:15 PM (Electronically Signed)[place] [address] Diagnostic Imaging Report Patient: Hellen Sigala MR#: [id number] : 1990 Acct:[id number] Loc: ED Service Date: 09/30/[address]: Ordering Physician: Ac Man M.D. Date of Service: 09/30/24 Procedure(s): XR chest 2V Accession Number(s): [id number] cc: Provider,Not a Local; Ac Man M.D.~ For Patients: As a result of the Cures Act, medical imaging exams and procedure reports are released immediately into your electronic medical record. You may view this report before your referring provider. If you have questions, please contact your health care provider. INDICATION: Shortness of breath TECHNIQUE: Chest radiograph 2 views COMPARISON: None FINDINGS: Mediastinum: The mediastinum is normal in appearance. The heart silhouette is normal in size and morphology. Lung: Both lungs are unremarkable in appearance. No sign of pleural effusion seen. No pneumothorax is identified. Bone and Soft tissue: Unremarkable for age. IMPRESSION: 1. No acute cardiopulmonary disease is seen. Dictated by: Kevin Arreola MD @ 09/30/2024 20:39:41 (Electronically Signed) ECG Data Attestation: I personally reviewed and interpreted this ECG as follows: ECG interpretation date: 09/30/24 Prior ECG tracings: not available for review Interpretation: EKG shows sinus bradycardia, normal QRS normal QT QTC. Ventricular rate 59. Assessment mild sinus bradycardia otherwise normal EKG Discharge Plan Discharge Clinical Impression: Fatigue, Headache Patient Disposition: Home w/ Parent or Adult Condition: Stable Instructions: Fatigue (ED), General Headache (ED) Additional Instructions: As we discussed I do not know what is going on, I do know that I believe her symptoms, I would reassure you that the laboratory tests were negative, follow- up with primary care to discuss this, is suggested, 1 of the smartest people in is Cha Bui MD Activity Level: Light activity Discharge Diet: Regular Prescriptions: No Action ferrous sulfate 325 mg (65 mg iron)/5 mL solution PO DHA 200 mg capsule 200 mg PO QHS valacyclovir 1 gram tablet 2,000 mg PO Q12H PRN Rx Instructions: 2gm [id number] x1 day escitalopram oxalate 20 mg tablet 20 mg PO DAILY Qty: 90 3RF Follow Up/Referrals: Anali Bui MD [Staff Physician, Internal Medicine] Provider,Not a Local [Primary Care Provider, Family Practice] Stand Alone Forms: VBOX Info Instructions
[2024-09-30 20:01] VITALS: BP 112/80; BP 115/75; BP 118/86; PULSE 54; PULSE 64; PULSE 76
[2024-09-30 20:07] LABS: NT Pro B Type NatriureticPept* 70 pg/mL (See Note)
[2024-09-30 20:45] VITALS: BP 112/74; PULSE 71; RESP 18; TEMP 36.8; O2SAT 99
[2024-09-30 21:35] VITALS: BP 112/74; PULSE 71; RESP 18; TEMP 36.8
== END 2024-09-30 21:36 | disposition home or self-care (01) ==
PROVIDERS: Emergency Provider Family Medicine
DX: R51.9 Headache, unspecified (principal); R53.83 Other fatigue; R53.1 Weakness; H53.8 Other visual disturbances
CPT/HCPCS: 36415; 70450; 71046; 80053; 83880; 84484; 85025; 85379; 93005; 94761; 99284; 99285